=== PATIENT | female | born 1985 | race Caucasian/White ===

== ENCOUNTER 2022-12-31 10:15 | Outpatient (OUT) | payer OTHER, SELFPAY ==
--- NOTE | 2022-12-31 10:25 | MR_ITS ---
The [address] [address] Patient Name: MICHAEL RAMON MRN: [facility]:[id number] date: 1985 Sex: F Assigned Patient Location: MRI Current Patient Location: MRI Accession/Order Number: [id number] Exam Date: 12/31/2022 11:10 Report Date: 12/31/2022 13:59 At the request of: NON-STAFF PHYSICIAN Procedure: MR lumbar spine wo con MR lumbar spine wo con, 12/31/2022 11:10 AM EDT INDICATION: Lumbar Neuritis M54.16 COMPARISON: Prior MRI dated 04/12/2022 TECHNIQUE: Multiplanar, multisequential MRI images of lumbar spine were obtained without contrast. FINDINGS: This study is limited due to signal loss because of the patient's body habitus. For dictation purposes, the lowest complete disc space in the lumbar spine considered as L5-S1. There is normal physiologic lumbar lordosis. The vertebral height is preserved. The conus medullaris is at the level of L1. No signal abnormality within the visualized spinal cord is noted. No neural foraminal narrowing or canal stenoses at the level of T12-L1 and L1-L2 is noted. There is bilateral short pedicles and epidural lipomatosis predisposing the patient to canal stenosis. At the level of L2-L3, there are disc bulge with no neuroforaminal narrowing and mild canal stenosis. At the level of L3-4, there are disc bulge with mild bilateral neuroforaminal narrowing and mild to moderate canal stenosis. At the level of L4-5, there are disc bulge with mild bilateral neuroforaminal narrowing and mild to moderate canal stenosis. At the level of L5-S1, there are disc bulge with mild to moderate bilateral neuroforaminal narrowing and no canal stenosis. The paraspinal muscles are unremarkable. MR/MR lumbar spine wo con IMPRESSION: Bilateral short pedicles and epidural lipomatosis predisposing patient to canal stenosis. Mild degenerative changes of lumbar spine in particular at L3-L5 with mild to moderate canal stenosis. Electronically authenticated by: RANJEET BERG Date: 12/31/2022 13:59
== END 2022-12-31 10:16 | disposition home or self-care (01) ==
LOC: MRI 10:18
DX: M54.16 Radiculopathy, lumbar region (principal)
CPT/HCPCS: 72148

== ENCOUNTER 2023-01-22 12:46 | Outpatient (OUT) | payer OTHER, SELFPAY ==
--- NOTE | 2023-01-22 12:47 | VEIN_ITS ---
Patient Name: MICHAEL RAMON MR#: [id number] : 1985 Exam Date: 01/22/2023 Ordering Doctor: DR PRASAD MENENDEZ M.D. RADIOLOGY REPORT PROCEDURE: VC EXT VENOUS REFLUX CONNOR LMTD COMPARISON: None. INDICATIONS: I83.813 Painful varicose veins of bilateral lower extremitie TECHNIQUE: Duplex imaging of the lower extremity to assess the deep and superficial venous system for the presence of deep or superficial venous incompetence and to document the location and severity of disease. The study includes evaluation of the great saphenous vein (GSV), anterior accessory saphenous vein (AASV) and small saphenous vein (SSV). Patient scanned in reverse Trendelenburg and standing. FINDINGS: RIGHT LOWER EXTREMITY: Saphenofemoral Junction Reflux: Yes 14.6mm 2.2 sec GSV: Diam (mm) Reflux/ Time (sec) Proximal Thigh 8.4 Yes 1.2 Mid Thigh 7.2 Yes 2.0 Distal Thigh 7.5 Yes 0.8 Prox Calf 3.7 Yes 0.5 Mid Calf 4.2 Yes 1.1 Saphenopopliteal Junction Reflux: 5.8mm Yes 1.7 SSV: Proximal Calf 5.5 Yes 0.9 Mid Calf 4.2 Yes 0.4 AASV: Proximal Thigh 6.1 No Mid Thigh 4.3 No Distal Thigh Thrombi: No acute or chronic thrombus visualized Compressibility: Normal Flow: Normal Preforator: Dist/med calf 2.9mm with 0s reflux. Tech Note: Incompetent GSV and SSV. Patent varicose vein prox/med calf 5.8mm with 1.9s reflux. Patent varicose vein mid/med thigh 4.7mm with 2.9s reflux. LEFT LOWER EXTREMITY: Saphenofemoral Junction Reflux: Yes 13.7 mm 2.7 sec GSV: Diam (mm) Reflux/Time (sec) Proximal Thigh 10.4 Yes 1.1 Mid Thigh 7.1 Yes 1.2 Distal Thigh 6.9 Yes 0.6 Prox Calf 5.3 No Mid Calf 4.0 No Saphenopopliteal Junction Relux: 5.5 mm Yes 1.2 SSV: Proximal Calf 5.5 Yes 1.0 Mid Calf 3.7 No AASV: Proximal Thigh 4.6 No Mid Thigh 3.4 No Distal Thigh Thrombi: No acute or chronic thrombus Compressibility: Normal Flow: Normal Finishing Operator: Mid/med calf 3.0mm with 0s reflux. Tech Note: Incompetent GSV and SSV. Patent varicose vein mid/med calf 3.0mm with 0.6s reflux. Patent varicose vein 3.4mm with 1.2s reflux. Patent varicose vein mid/med thigh. 5.7mm with 0.7s reflux. CONCLUSION: 1. Moderate bilateral great saphenous vein venous insufficiency with saphenofemoral junction reflux and dilatation 2. Mild bilateral small saphenous vein venous insufficiency with saphenous popliteal junction reflux and dilatation 3. Bilateral incompetent varicose veins Dictated by: Prasad Menendez MD on 01/23/2023 at 07:14 Approved by: Prasad Menendez MD on 01/23/2023 at 07:44
== END 2023-01-22 12:47 | disposition home or self-care (01) ==
PROVIDERS: PCP Podiatrist Foot & Ankle Surgery; Visit Provider Radiology Diagnostic Radiology
DX: R60.0 Localized edema (principal); I89.0 Lymphedema, not elsewhere classified; I83.813 Varicose veins of bilateral lower extremities with pain
CPT/HCPCS: 93970

== ENCOUNTER 2023-01-28 14:19 | Outpatient (OUT) | payer OTHER, SELFPAY ==
--- NOTE | 2023-01-28 14:22 | VEIN_ITS ---
Patient Name: MICHAEL RAMON MR#: [id number] : 1985 Exam Date: 01/28/2023 Ordering Doctor: DR WEN MCCABE M.D. RADIOLOGY REPORT PROCEDURE: VC [facility]ILITY EST [facility] - OFFICE VISIT INITIAL COMPARISON: None. PROGRESS NOTES: [age] year old female who presents with a 5 year history of lower extremity pain, swelling, muscle cramping. The patient's left leg symptoms are worse than the right. There has been a progression of symptoms over time. This increases with prolonged dependency. The patient describes an improvement with rest, elevation, support stockings, and [id number] medications. The patient denies any signs and symptoms to suggest arterial ischemia. The patient describes a family history of heart disease. The patient has drinking and smoking history of : None. Patient has a past medical history significant for right foot surgeries, back pain, diabetes, obesity. The patient denies a history of deep venous thrombus or pulmonary embolus. See separate history and physical for medication list. No prior treatment for varicose or spider veins. Current use of compression stockings. After review of nurse notes, history and physical exam I discussed at length the pathophysiology of venous hypertension and possible treatments, therapies and strategies available. We discussed at length the importance of elevating the lower extremities above the level of the heart, increased physical activity and compression stocking use. Ultrasound venous reflux study performed the on January 22, 2023 was discussed at length with the patient. The report demonstrates abnormally dilated and incompetent great saphenous veins bilaterally, small saphenous veins bilaterally, and incompetent branch saphenous varicosities. PHYSICAL EXAM: The right leg demonstrates a few varicosities, a few spider veins, no ulceration, moderate edema, no skin discoloration. The left leg demonstrates a few varicosities, a few spider veins, no ulceration, moderate edema, no skin discoloration. Both thighs, legs and feet were symmetrically warm to the touch. Good posterior tibial and dorsalis pedis pulses were present bilaterally. VEIN/ Facility EST Comprehensive IMPRESSION: 1. Bilateral lower extremity venous insufficiency 2. Bilateral lower extremity varicose veins 3. Moderate bilateral lower extremity subcutaneous edema 4. No flow significant arterial disease 5. CEAP: C3, AP, , MT PLAN: 1. Continued use of compression stockings 2. Elevated legs and increased physical activity symptomatic relief 3. Endovenous ablation of right great saphenous and left great saphenous veins. 4. Re-evaluation of small saphenous veins bilaterally, but these likely will need endovenous ablation. 5. Microfoam chemical ablation of remaining incompetent branch saphenous varicosities. Nurse notes, history and physical were reviewed and confirmed, see attached forms. The nurse was present throughout the physical exam and consultation Dictated by: Bassem Pelaez M.D. on 01/28/2023 at 14:51 Approved by: Bassem Pelaez M.D. on 01/28/2023 at 15:05
== END 2023-01-28 14:20 | disposition home or self-care (01) ==
LOC: VC 14:21
PROVIDERS: PCP Podiatrist Foot & Ankle Surgery; Visit Provider Radiology Diagnostic Radiology
DX: R60.0 Localized edema (principal); I89.0 Lymphedema, not elsewhere classified
CPT/HCPCS: G0463

== ENCOUNTER 2023-02-25 10:09 | Outpatient (OUT) | payer OTHER, SELFPAY ==
--- NOTE | 2023-02-25 | XR_ITS ---
The [address] [address] Patient Name: MICHAEL RAMON MRN: [id number] date: 1985 Sex: F Assigned Patient Location: [facility] Current Patient Location: [facility] Accession/Order Number: [id number] Exam Date: 02/25/2023 10:29 Report Date: 02/25/2023 12:30 At the request of: LOR CHEEK Procedure: XR foot RT min 3V EXAM: XR foot RT min 3V HISTORY: Right FOOT PAIN COMPARISON: Foot radiographs from 11/05/2021 TECHNIQUE: AP, lateral, oblique radiographs of the foot labeled right FINDINGS: Sequela of previous first metatarsal phalangeal joint effusion. Continued remodeling with decreased lucency at site of previous fixation screws. No acute fracture. No dislocation. Large plantar calcaneal enthesophyte. Small Achilles calcaneal enthesophyte. XR/XR foot RT min 3V IMPRESSION: 1. No acute osseous abnormality. 2. Postsurgical changes of previous first metatarsal phalangeal joint fusion. 3. Calcaneal enthesophytes. Electronically authenticated by: JASBIR DOLAN Date: 02/25/2023 12:30
== END 2023-02-25 10:10 | disposition home or self-care (01) ==
LOC: RAD 10:09
PROVIDERS: PCP Radiology Diagnostic Radiology; Visit Provider Podiatrist Foot & Ankle Surgery
DX: S90.31XD Contusion of right foot, subsequent encounter (principal)
CPT/HCPCS: 73630

== ENCOUNTER 2023-04-08 10:13 | Outpatient (OUT) | payer OTHER, SELFPAY ==
[2023-04-08] MEDS: 0.9 % SODIUM CHLORIDE 500 ML, LIDOCAINE HCL 20 ML, SODIUM BICARBONATE 10 MEQ INJ (10:09)
[2023-04-08] MEDS: LIDOCAINE HCL 1% 100 MG/10 ML MDV INJ (10:10)
--- NOTE | 2023-04-08 10:15 | VEIN_ITS ---
[address] [address] Patient Name: MICHAEL RAMON MRN: [id number] date: 1985 Sex: F Assigned Patient Location: Current Patient Location: Accession/Order Number: [id number] Exam Date: 04/08/2023 10:15 Report Date: 04/08/2023 11:21 At the request of: WEN MCCABE Procedure: VC Endovenous Ablation 1VeinRT EXAMINATION: VC Endovenous Ablation 1Vein right great saphenous vein HISTORY: I83.813 Bilateral painful varicose veins COMPARISON: No relevant comparison available. TECHNIQUE: The risks and benefits of the procedure had been previously discussed, and were rediscussed at length. Informed written consent was obtained. Radha Manley and Torsten White assisted. Time out procedure was performed. The right lower extremity was prepared and draped in the usual sterile fashion to allow knee flexion in the sterile field. Duplex ultrasound probe was draped in a sterile cover, sterile transmission gel was used. Venous mapping was performed with the areas of dilation and large tributaries marked. The total length was 27 cm from the entry at the knee to 3 cm below the saphenofemoral junction, the vein below this area splint and was not amenable to endovenous laser ablation. The diameter of the greater saphenous vein ranged from 6-9 mm. A 30 gauge needle and 1% buffered lidocaine was used to anesthetize the entry site. A 4 mm incision was made with a scalpel and the saphenous vein was entered percutaneously under direct ultrasound guidance with a micropuncture set, a single stick was successful in gaining access. A micro-guide wire was inserted and the needle removed. A micro-set including a dilator was inserted over the microwire and the needle and dilator were removed. A 0.018 guide wire was inserted through the micro-set and threaded through the saphenous vein to the saphenofemoral junction. The dilator was removed and an introducer sheath was inserted over the wire until the end of the sheath entered the saphenofemoral junction. The dilator and wire were removed and the 600 micron fiber was introduced and placed and positioned so that it extended beyond the sheath and was 3 cm peripheral to the saphenofemoral femoral junction. Final position of the fiber was determined by ultrasound guidance and duplex imaging. Tumescent anesthetic was delivered by ultrasound guidance. 225 cc of fluid was delivered along the entire course of the saphenous vein. The solution consisted of 1000 cc of normal saline with 40 mL of 1% lidocaine and 20 mL of sodium bicarbonate. A final positioning check was made. The energy source was turned on by means of the foot pedal and the fiber and sheath were withdrawn. The total number of Joules delivered was 1244. The laser was active for 155seconds under continuous pulse, average laser use of 8 J. Laser start time 1106 AM 04/08/2023. Laser stop time 11:09 AM 04/08/2023 . A duplex ultrasound revealed compressibility and flow at the saphenofemoral junction immediately after the procedure. Hemostasis at the access site was achieved. The skin incision of the saphenous vein was closed with a 4 x 4. A compression stocking was applied. Postop instructions were given. A follow up appointment was recommended and scheduled. The patient tolerated the procedure well and was discharged in good condition . VEIN/VC Endovenous Ablation 1VeinRT IMPRESSION: Technically successful endovenous laser ablation right great saphenous vein Electronically authenticated by: WEN MCCABE Date: 04/08/2023 11:21
--- OUTSIDE RECORDS SUMMARY | 2023-04-08 10:17 | XMS_ITS | CCD ---
Author Name Unknown Address [address] [place] [address] Organization [facility] Care Team Providers Care Refuse And Recycling Worker Name Role Phone Wen Pollack Unavailable MD Wen Pollack Attending Provider DO Thu Baldwin Primary Care Provider LOR CHEEK Attending Unavailable SHARON REYES Consulting Unavailable JAISON, DR GARCIA Primary Care Unavailable LOR CHEEK Admitting Unavailable LOR CHEEK Admitting Unavailable HERIBERTO, DR MALATHI Larson Consulting Unavailable REQUEST, NONE LISTED Primary Care Unavaila LOR Jimenez Attending Unavailable LOR CHEEK Consulting Unavailable SHARON REYES Consulting Unavailable LOR CHEEK Admitting Unavailable LOR CHEEK Attending Unavailable REQUEST, NONE LISTED Primary Care Unavaila LOR Jimenez Consulting Unavailable MARCO A, DR YAN Patino Attending Unavailable STRICKLAND, DR YAN Patino Consulting Unavailable MARCO A, DR YAN Patino Admitting Unavailable REQUEST, NONE LISTED Primary Care Unavaila elisa MCCABE, DR WEN Bassett Consulting Unavailable LOR CHEEK Consulting Unavailable ADRYAN CARLSON Consulting Unavailable BRAYDON KEILY Nevarez Consulting Unavailable KEILY PAYNE Consulting Unavailable LOR CHEEK Attending Unavailable LOR CHEEK Consulting Unavailable JAISON, DR GARCIA Primary Care Unavailable LOR CHEEK Admitting Unavailable ADRYAN CARLSON Consulting Unavailable HERIBERTO, DR MALATHI Larson Consulting Unavailable REQUEST, NONE LISTED Primary Care Unavaila SARA Cramer Attending Unavailable SARA MESA Admitting Unavailable SARA MESA Consulting Unavailable LOR CHEEK Attending Unavailable MISC, DR GARCIA Primary Care Unavailable ELIOT, DR WEN Bassett Consulting Unavailable LOR CHEEK Admitting Unavailable LRO CHEEK Consulting Unavailable Asaad, Imad Unavailable Mc, Shelley Unavailable Nicolasa, Thu G Primary Care Provider MD Job Martinez Attending Provider MD Wen Pollack Attending Provider DO Jesusita Shelley A Primary Care Provider Piedad MARTINEZ, Sam Funes Attending Zeldavawesley labmaria d [place] MANAGER INTEL-LENS SHAPER GRINDER, Bia Kitchen Attending U sonia Herbert MD, Sam Funes Attending Zeldavawesley labmaria d [place] MANAGER INTEL-LENS SHAPER GRINDER, Bia Kitchen Attending U navailmarcy Asaad, Imad Admitting Unavailable Asaad, Imad Attending Unavailable Nicolasa, Thu G Primary Care Unavailable Wen Pollack Admitting Unavailable Wen Pollack Attending Unavailable Mc, Shelley A Primary Care Unavailable Asaad, Imad Attending Unavailable Mc, Shelley A Primary Care Unavailable Asaad, Imad Admitting Unavailable RIO STERLING Attending Unavailable YSABEL MULLER Attending Unavailable YSABEL MULLER Referring Unavailable RIO STERLING Attending Unavailable NICOLASA, THU G Attending Unavailable Nicolasa, Thu Primary Care Unavailable Longoria, Ulices Attending Unavailable Longoria, Ulices Admitting Unavailable Nicolasa, Thu Primary Care Unavailable SAM HERBERT Attending Unavailable KINDEtelvina SAM Tomas Admitting Unavailable Nicolasa, Thu Primary Care Unavailable SAM HERBERT Attending Unavailable KINDEtelvina SAM Tomas Admitting Unavailable Mati Bell Attending Unavailable Nicolasa, Thu Primary Care Unavailable Bell, Mati L Admitting Unavailable Bell Mati L Attending Unavailable Nicolasa, Thu Primary Care Unavailable Bell, Mati L Admitting Unavailable Nicolasa, Thu Primary Care Unavailable Bia Goldman Admitting Unavailable Bia Goldman Attending Unavailable Efrain Bellime L Attending Unavailable Nicolasa, Thu Primary Care Unavailable Bell, Mati L Admitting Unavailable Nciolasa, Thu Primary Care Unavailable Sara Mesa Attending Unavailable Sara Mesa Admitting Unavailable Mc, Shelley Primary Care Unavailable SAM HERBERT Attending Unavailable KINDL SAM F Admitting Unavailable Bell Mati L Attending Unavailable Nicolasa, Thu Primary Care Unavailable Bell, Mati L Admitting Unavailable Mati Bell Referring Unavailable Nicolasa, Thu Primary Care Unavailable Lor Cheek Attending Unavailable Lor Cheek Admitting Unavailable Ulices Longoria Admitting Unavailable Nicolasa, Thu Primary Care Unavailable Ulices Longoria Attending Unavailable Nicolasa, Thu Primary Care Unavailable Igor DPM, Lorenzo Connors Attending Kodi DUMASM, Lorenzo Connors Admitting Unavawesley beck Nicolasa, Thu Primary Care Unavailable Keily Duvall Attending Unavailable Keily Duvall Admitting Unavailable Mati Bell Attending Unavailable Nicolasa, Thu Primary Care Unavailable Mati Bell Admitting Unavailable Nicolasa, Thu Primary Care Unavailable Bia Goldman Admitting Unavailable Bia Goldmna Attending Unavailable Nicolasa, Thu Primary Care Unavailable Bia Goldman Admitting Unavailable Bia Goldman Attending Unavailable Mati Bell Attending Unavailable Nicolasa, Thu Primary Care Unavailable Mati Bell Admitting Unavailable Nicolasa, Thu Primary Care Unavailable Mati Bell Attending Unavailable Mati Bell Admitting Unavailable Nicolasa, Thu Primary Care Unavailable Bia Goldman Admitting Unavailable Bia Goldman Attending Unavailable Medications Current Medications Medication Drug Class(es) Dates Sig (Normalized) Sig (Original) baclofen 10 mg oral tablet (8 sources) gamma-Aminobutyri c Acid-ergic Agonist Start: 03-11-2023 take 10 mg by mouth twice daily Baclofen Active 10 MG PO Twice daily March 11, 2023 12:00am take 1 tablet by merry th every twenty-four hours Baclofen 10 MG 1 tablet Orally once a da y Active Baclofen 10 MG/2 0ML as directed Intrathecal Active 24 hr buPROPion hydrochloride 300 mg extended release oral tablet (8 sources) Aminoketone Start: 03-11-2023 take 300 mg by mouth once daily in the morning Bupropion Hcl Active 300 MG PO Every morning March 11, 2023 12:00am take 1 tablet by merry th every twenty-four hours buPROPion HCl ER (XL) 150 MG 1 tablet in the morning Orally Once a day Active Clotrimazole (3 sources) Azole Antifungal Clotrimazole 1 % 1 application Externally Twice a day Active Clotrimazole 1 % 1 application Externally Twice a day Active diclofenac sodium 50 mg delayed release oral tablet (8 sources) Nonsteroidal Anti-inflammatory Drug Start: 03-11-2023 take 50 mg by mouth once daily Diclofenac Sodium Active 50 MG PO Daily March 11, 2023 12:00am take 1 tablet by merry th every twelve hours Diclofenac Sodium 50 MG 1 tablet as need ed Orally Twice a day Active escitalopram 10 mg oral tablet (3 sources) Serotonin Reuptake Inhibitor take 1 tablet by mouth every twenty-four hours Escitalopram Oxalate 10 MG 1 tablet Orally Once a day Active Gas Relief (4 sources) Gas Relief Activ e Laxative 25 MG (4 sources) take 1 tablet by mouth once daily at bedtime as needed Laxative 25 MG 1 tablet at bedtime as needed Orally Once a day Active Loratadine (10 sources) Claritin PRN Act caleb Claritin Active magnesium citrate 100 mg oral tablet (4 sources) Magnesium Citrat e 100 MG as directed Orally Active melatonin 1 mg oral tablet (11 sources) Start: 03-11-2023 take 1 mg by mouth at bedtime Melatonin Active 1 MG PO Bedtime March 11, 2023 12:00am Melatonin Active metFORMIN hydrochloride 500 mg oral tablet (8 sources) Biguanide Start: 03-11-2023 take 500 mg by mouth once daily Metformin Active 500 MG PO Daily March 11, 2023 12:00am mounjaro 5 mg/0.5ml solution pen-injector (3 sources) inject 5 mg by subcutaneous injection every week Mounjaro 5 MG/0.5ML 5 mg Subcutaneous once a week Active mounjaro 7.5 mg/0.5ml solution pen-injector (1 source) inject 7.5 mg by subcutaneous injection every week Mounjaro 7.5 MG/0.5ML 7.5 mg Subcutaneous weekly for 30 days Active omeprazole 20 mg delayed release oral capsule (1 source) Proton Pump Inhibitor Start: 03-18-2023 take 1 capsule by mouth once daily Omeprazole 20 MG 1 capsule 30 minutes before morning meal Orally Once a day for 30 days Mar, Active phentermine hydrochloride 37.5 mg oral capsule (3 sources) Sympathomimetic Amine Anorectic take 1 capsule by mouth every twenty-four hours Phentermine HCl 37.5 MG 1 capsule Orally Once a day Active pregabalin 50 mg oral capsule (8 sources) Start: 03-11-2023 take 1 capsule by mouth once daily Pregabalin (Lyrica) 50 mg Capsule Active 50 MG PO Daily March 11, 2023 12:00am Super Enzymes - (4 sources) Super Enzymes - as directed Orally Active Tirzepatide (1 source) Start: 03-11-2023 Tirzepatide (Mounjaro) 7.5 mg/0.5 mL Pen Injector Active 7.5 MG SUBCUT every week March 11, 2023 12:00am Problems Active Problems Problem Classification Problem Date Documented Date Episodic/Chronic Acquired foot deformities (1 source) Hallux rigidus, right foot; Translations: [HALLUX RIGIDUS RIGHT FOOT] Onset: 06-13-2021 Chronic Acute and chronic tonsillitis (11 sources) Enlarged tonsil; Translations: [Hypertrophy of tonsils] Onset: 12-06-2020 Resolved: 12-06-2020 Chronic Anxiety disorders (12 sources) Mixed anxiety and depressive disorder; Translations: [Other specified anxiety disorders] Onset: 12-06-2020 Resolved: 12-06-2020 Chronic Diabetes mellitus without complication (5 sources) Type 2 diabetes mellitus; Translations: [Type 2 diabetes mellitus without complications] Chronic Esophageal disorders (2 sources) Gastroesophageal reflux disease; Translations: [Gastro-esophageal reflux disease without esophagitis] Chronic Headache; including migraine (1 source) Migraine, unspecified, not intractable, without status migrainosus; Translations: [MIGRAINE UNS NOT INTRACT W/O SM] Onset: 11-14-2021 Chronic Hepatitis (9 sources) Nonalcoholic steatohepatitis; Translations: [Nonalcoholic steatohepatitis (HAMMOND)] Chronic Menstrual disorders (2 sources) Irregular periods; Translations: [Irregular menstruation, unspecified] Chronic Mood disorders (6 sources) Major depressive disorder, single episode, unspecified; Translations: [Major depression in full remission] Onset: 11-14-2021 Chronic Other liver diseases (7 sources) Steatosis of liver; Translations: [Fatty (change of) liver, not elsewhere classified] Chronic Other liver diseases (2 sources) Fatty (change of) liver, not elsewhere classified Chronic Other liver diseases (1 source) Abnormal levels of other serum enzymes Episodic Other nutritional; endocrine; and metabolic disorders (10 sources) Morbid obesity; Translations: [Body mass index (BMI) 60.0-69.9, adult] Chronic Other nutritional; endocrine; and metabolic disorders (4 sources) Body mass index (BMI) 60.0-69.9, adult; Translations: [BMI 60.0-69.9, adult Z68.44] Onset: 12-06-2020 Resolved: 02-07-2021 Chronic Other nutritional; endocrine; and metabolic disorders (1 source) Morbid (severe) obesity due to excess calories; Translations: [MORBID SEVERE OBES D/T EXCESS SOFÍA] Onset: 11-14-2021 Chronic Other nutritional; endocrine; and metabolic disorders (8 sources) Body mass index 40+ - severely obese; Translations: [Body mass index (BMI) 70 or greater, adult] Chronic Other nutritional; endocrine; and metabolic disorders (1 source) Body mass index (BMI) 70 or greater, adult Chronic Residual codes; unclassified (10 sources) Sleep apnea; Translations: [Sleep apnea, unspecified] Chronic Residual codes; unclassified (19 sources) Obstructive sleep apnea syndrome; Translations: [Obstructive sleep apnea (adult) (pediatric)] Chronic Residual codes; unclassified (6 sources) Obstructive sleep apnea (adult) (pediatric); Translations: [Obstructive sleep apnea (adult) (pediatric) G47.33] Onset: 12-06-2020 Resolved: 02-07-2021 Chronic Residual codes; unclassified (8 sources) Insomnia; Translations: [Other insomnia] Chronic Residual codes; unclassified (2 sources) Other insomnia Chronic Residual codes; unclassified (1 source) Obstructive sleep apnea (adult)(pediatric); Translations: [Obstructive sleep apnea (adult) (pediatric)] Onset: 02-19-2023 Chronic Residual codes; unclassified (1 source) Continuous positive airway pressure ventilation treatment; Translations: [Dependence on other enabling machines and devices] Chronic Spondylosis; intervertebral disc disorders; other back problems (4 sources) Radiculopathy, lumbar region; Translations: [RADICULOPATHY LUMBAR REGION] Onset: 04-12-2022 Episodic Unclassified (1 source) POST COVID-19 CONDITION UNSPECIFIED; Translations: [POST COVID-19 CONDITION UNSPECIFIED] Onset: 10-30-2021 Unclassified (1 source) Nonalcoholic steatohepatitis (HAMMOND); Translations: [Nonalcoholic steatohepatitis (HAMMOND)] Onset: 12-24-2022 Viral infection (1 source) COVID-19; Translations: [COVID-19] Onset: 10-15-2021 Past or Other Problems Problem Classification Problem Date Documented Da te Episodic/Chronic Complication of device; implant or graft (1 source) Pain due to internal orthopedic prosthetic devices, implants and grafts, initial encounter; Translations: [PAIN INTRL ORTHO PROS DEV GFT INIT] Onset: 11-14-2021 Episodic Deficiency and other anemia (1 source) Anemia, unspecified; Translations: [ANEMIA UNSPECIFIED] Onset: 10-02-2021 Episodic Other aftercare (1 source) medical terminologist (current) use of aspirin; Translations: [CAREER TECHNICAL EDUCATION INSTRUCTOR CURRENT USE OF ASPIRIN] Onset: 11-14-2021 Episodic Other aftercare (1 source) Other terminal press operator (current) drug therapy; Translations: [OTH PRISON CURRENT DRUG THERAPY] Onset: 11-14-2021 Episodic Other aftercare (1 source) senior care (current) use of oral hypoglycemic drugs; Translations: [CAREER TECHNICAL EDUCATION INSTRUCTOR USE ORAL HYPOGLYCEMIC DX] Onset: 11-14-2021 Episodic Other circulatory disease (1 source) Elevated blood-pressure reading, without diagnosis of hypertension; Translations: [ELEVATED BP READING W/O DX HTN] Onset: 10-30-2021 Episodic Other connective tissue disease (1 source) Arthrodesis status; Translations: [ARTHRODESIS STATUS] Onset: 11-14-2021 Episodic Other connective tissue disease (1 source) Pain in right foot; Translations: [PAIN IN RIGHT FOOT] Onset: 10-15-2021 Episodic Other lower respiratory disease (1 source) Shortness of breath; Translations: [SHORTNESS OF BREATH] Onset: 10-30-2021 Episodic Other non-traumatic joint disorders (1 source) Osteophyte, right foot; Translations: [OSTEOPHYTE RIGHT FOOT] Onset: 10-30-2021 Episodic Residual codes; unclassified (1 source) Acquired absence of other specified parts of digestive tract; Translations: [ACQ ABSENCE OTH PART DIGESTV TRACT] Onset: 11-14-2021 Episodic Residual codes; unclassified (1 source) Procedure and treatment not carried out for other reasons; Translations: [PROC AND TX NOT CARRIED OUT OTH REASONS] Onset: 10-15-2021 Episodic Superficial injury; contusion (9 sources) Contusion of right foot, subsequent encounter; Translations: [Contusion of right foot, initial encounter] Onset: 10-08-2021 Episodic Results Test Name Value Interpretation Reference Range Facility Coding Summaryon 04-07-2023 Coding Summary HTMLBase 64 PqoyzsbmORs7tPs+PGhlYWQ+PE1 IGOCcH53buWJhhS8yU1ICPHhZYi xgFTMGTXpIOrLvheMsDY1bzKBvR XJu IC8+WO3gWGDtWxdboVYle8X5cWZ 0Y43sjk0fFArfqAS9AULcSeQfzs ahx3wbfIl8RAgtImutJdEj YRJrbC06QTJ4jW58Ny15qATbmUP wq7ixeTc0VzYsJXOlTSJ5xObkNC wim6RfZVFmH24nrOTag9K3 EOKgiMdfyGRmNgExnEJ1gE7uFXl bsgexm5mtogfvDot9fn08xDSca6 H9pVP4R7BccsM6HFLnkUUh BuaumWFIjP1ubpqgi8fpisnxNhN rDJMyFRt5YXh2FOIykCtpUrPfWZ 97CVV4KQWyvcRbZ6QbQESo qDeuIqB9g9D7Dt1CD3WGRrroR1F NTUFSWTwvdGQ+SA75qq03N2EuTv hqYda4QQRgWCM3yUZ6pC5y EGHoKCuuj4O4wKJ8J5SecxKjrj8 vv3chSDEoVLciL46uyNOmf3M3IG WpiZU0KQZdfKosSxLnxI23 Oyc+ZZZchMjln0HmQhikc2aug3a hdDz3MiycNWBbhqKvjNigEBX3g2 YtLw1yDGVtjOG0sOH8jL7d KfNeKvQ0WIzvA124NvJqhGZsClq oX99lW7FikER+FYWeDaa3KJTsuB joAR4lC1UlSJDmtfqirLAk gRslVW8dOUFkihetNDGzsL0vMNN vB0s1YyTbBcW9MSzuJ7JmWNLokf mrSc60rL3eHtFwVnE3YRoh M2GqqxS9ZNHxfVZxHPqiHSV6D31 ps1X0DZQiKCPaEUK0uGP8wG5bjL lnbjogbGVmdDsgdmVydGlj ZUyoBWabB433CYHibQzjVrKcHDp uZyBEYXRlOiAgMDEvMjkvMjAyND wvdGQ+HEQcADE8hVczVYUr xXIiCPruMz0kvTxtzPgsYO6jFQL fbtccGQGqwJ9qXXKqcIPwgLthWO 1bUZUqlcxau806QpTwLWY1 XONmiALuB4QooK3jXxPjQXCwIRI wJ8FqvIIvGYogE698MDdaOdD0OH UzsuOxU3BxTUFhoWkzHuZ1 y2D0Jc1Bg4JprdwlZ9IquZCqWkB lDgomLAu0X8AxXxbmhUA+PC90YW OoYI03KEu5XNB2tNirXOvl LRDmP9GepE4nHqMzXSImUXRuAbf +PHRhYmxlIHdpZHRoPScxMDAlJy NekFsaWZ9lOk1rPUFaKAZa tKcplTIdSzRri0arEPCwNLxhIM0 eoNatA1RgdHJ2EWXav6l6Dn60G4 3dD0YlbPG+BYZisOP3eKQ0 nD1vScBuKpO1UXazX510TaOyeRS tLdmwo0bhr5kdkXj3FtY3LDMehd ZgjQypPXV3a3McLt05Q47c IHdpZHRoPSIxNSUiIHZhbGlnbj0 gpU2yDh9+SOWuwEX0cTH4yN3wSd XlMkI4HKdwH574JnKyfBMk Urmtq2mjy2feuLn0FcMnZWJjlmE gyFlzINF9k9IvWr85E1BgnJswt4 DdOgu6th65vJWhu4Q2rEH8 Y7VaDQIxrxuwqQHyzMwdYH0oRVM ixlctQSOmfJ0nYWAaG4h0BjVxQc G9PZptE6GwbxK8KEOrqLNf AIYsaFOEiD7zhrfgi3ipuufxJuY tDWAsZSb7KYb1MNUnkErjLqBrIS Y8ZxM2GAK6oYUjmQ7yaKxz fnohiS0uVnt+VCA8gTJhiIVKJV3 lOjwvdGQ+GRQxDAZ0hLlxPCdzUM JztD1lPBRkZ1e8RwQsRoE5 ITwwS3FibsT2FXMtpQVnKKCixRU XvT1edvaib0ofddbaByKzDWSmDM x5PCa1LLZepAutUpCcJXT8 PjO0LNN2xIWecL8onXwnyylpfT2 wOyc+DtzqlHjeKGH0IQk4W8VeNi k3OBMdmYtqNS7bmXFdBPsd Sb7fkTxbzUsyTE6iEKYdeuwsi04 5HiSpw8dbXTYxdWThTWjcGBZ9G7 8ns6U8KBNgNNPtJIJ7uPP0 fE0ofQzrocugvNGbbVuaxvRpxQa jLHvsJVysC133XWPrlBdyVcOwKK n5G0NvAer8NMXzkQupDX7j nOZbCFvqWi3yvHtqzEssGM5uSKF sfewpk749JlGgo0ifTKClgZQnFL gzQGM4W96rm0J1ZMObNVAv EAI4oJO8tX1rtAptiojheDMmuWc yfdXjjOffWBviKRswU429IVRniE bbOlIbyHg0D2GgTgg6HILo dHewQB7lxYMaYHicYq6emVciaAq zEK9rFZAifbgir668CyMrb0hrWO CxlDSuDPlvWDZ3G52xf2K2 LGKsIPNdJMY9hJD3dN3sxEyjuaj gbGVmdDsgdmVydGljYWwtYWxpZ2 46IHRvcDsnPlBhdGllbnQg AJijGHs6X0VkIawcpCJ+CP79UCI xLY97xGRpoAOdj1eqaJc2TrTzIE UzECY4dLngYSqkw0XpLDWh H33zsOTpv1X5FCVxdEbczSUoHxT cmDV0lF4wPYrmptneb5tocrrxIj qkt3anry59lQ73X54lUGku KVElRCCbUPXkNTPcgBzvmx3hnC9 wIi8+CGKfdOV4kMS9gZ3tIVJyUb I5GGznY025XmRtrBQrBkhy h4hvp8qoqMm9IqG3RTYnzkGuvXi pKSL0t5WwCn21G57lIBymPKHsOX CdJYFxJZPckXrxds4neI7q Ii8+JXAyzNN8oNV0iX0dQbYsWuY 7TSafW303JkAcyPLiNrimU15qL9 JvdXA+FKZmTum9TCRwzLdq RH7aeCYfFRhbJy7nDGT6FmCfNlG zVLlfO9CbYHOuusphvbhtlPE2LJ XvHOHtsY71Oj8cdCxjVEGu nZJMlS6fmoggb7chrclqBmNfKLK mZMd6VUf3FKYqkTdeXxGgKSU1Km M6OLG7uIKlgI9qjYsqogiv oD4cK0TvVBAuqdzzUb80hP0qYfF lWsC6LUxpTel+TVVMTEVOUywgUk YNBKWVANOIHQxPWbD4J5Lx Byh6FRBorHxdRF4nkCLaZVavLz8 oyTglkZacCX6eVLKpcauiSROtmC 7eZXDaoVTqcGhzMA3cNMPu tguat394JgZnWMH6HDWcmROeX3Z ueU8qTpZtPKEjNKLgC7ZnvZNdVL omJ897IWoaAlN7RYXunwDm V3YbRCJduRcaXiE8b3C2Ls0lWQ0 vTw0hDVg4VB93VP39kJNqd5G9qB B3Y2TxVMEvosuaoktbqVT9 BCJwEYNzgL80eRKfUOttTt2em6J 0t231SCPmMDIdpP80Fl7jhDoiHL GmcFXToO7hhwzqu1vamdhh KhKbTMDjVAu0FFv2SIPduNuuFdE sLTK0ObC9LOH4mXIxmC3rhFkjwv rfxD9oHjy+MzggWWVhcnM8 H7NjSqx7PRThnWxuGZ6teHCzBYc xIn0zwWcjxUcbNK0rQIHyiqdyGZ PwtV1hDRRnoWRwgCsyLF7h RVNaxumln714CbYdYNZ9MNSksHT aB3IcpU1mBhRpINIyCPFwA9VweP PpSYseI792RLjtKeA8YFAv bpGgV4QlLLNheDneMdP9y0K2Jt2 DVV6XWLL3W2TsAjd3MKXaeCynZW 4abBOyOYahEd0bkMhivVlz ZU8oCULtevhnFSIgbX9mIDCgwWC wuXxgFI3mGCImmzwwa818QvKjLC G5AIWdnBSaX5AcrO0wOzHj ZUCrOOFpY2AwgOQgTOqvI103KXa kDkU7SDPkghNqS2SuBLMtlMngAq H7c1X0Ce6YGQueN2XtX6Mf eTwvdGQ+CN26yz59G7KhTfdjJrt 7IYYgVSG0mCA6bA3lQGWsRTpdk4 A0zJG6S8YvsdPfxg4sn6xb KHSeBAlaY95maICzs9Q1CHShqCY 7YZDxyPcyHvFodA46Oli+PGNvbG jon8IzZjyfv7tmu9qqfUe5 UqGvXXJbjfRvzGnwZUS8x9ErGb1 1K55iKTawKZRsWCKtFIBbKPRprX apmz8vnM5dPk9+PGNvbCB3 lNO4aO2wYuXpNdU6ZKdzX104YdJ qwLWuYbpjl7bjl0hrqBb0SnGjUB KotiOutMwoQBJ8e9NvZo05 A9IkuBqon1WuDww4qq22sZJwm3Q 3xCF9Z4NzXCQbfvfggDAxqFecMF 7bNQYopgslFDJdhP4gXTGk F5o3NsZgYsI5LLhmF0CtvqW1IPT ioZMwVUOgcSNKpH8wlhitt2fswg wkUxYtUHHoSRi1WTw1HDQl bKxaSeHbZGS9LhW4WKH4zLRitA3 ylAtppvccmW3jEdb+IIs8f6egcF NsWR9vvXI2GX87FO90mGYs m7D8uIX2D2CcJKHodzjaogafsIL 9FYQrAKRduJ41Yx7mvCbkVs9yIQ RjIVC5OSZunSDvO6MbcE2q JlVaQKJpLKNwJ4HnkUIcTMzjG45 8FWizHaG3FKYdjxJxL9GaPNDlzG gmAiY7k3G2Pp9KYF07YK12 BL62iDFlj4Y6eVN2I3GqCIGhfma xlljeeUG9COMaZEPeyS75Be5edB siVt1yXLBpRDB8KZLnwLKl T1AdtX9wPfTvQGEdRMKwO5DdeKJ bQDfnY483EYasQdE4FRQjpcMbH2 XaCPTviTdrNzR0r4F8Bk7P Sb41MR32ZT85eBKfi3X5rDV1E7Y fTEMygvqpnktxcCD2FORpBNPmaT 88Wk8wiYspSf9kNDRiVXU1 VUSfmAJbM5IheZ7aZxFeYHKgGWY mE3WbyEKoCAznY086IKgeEyB5UA HbozDjJ7IyPFMahFqsCrK6 e3X2Fa4NZOfnomk7W4EeBukccOA +TT35JRSzHH32bXKcoQZil2cnfV c1XcSoLAHfWWM1vPvwGWuh b3J (more content not included)... [facility] Consent Formson 04-07-2023 Consent Forms [id number] [facility] Inpatient Patient Summaryon 04-04-2023 [place] [address] Patient Discharge Instructions Name: MICHAEL RAMON : 1985 Patient Address: [address] [place] [address] Primary Care Provider: Name: Shelley Mc DO After you are discharged if you find you have any questions, please, call [phone] ext [phone] to speak to a nurse. Discharge Diagnosis: Prescription Information: If you have been given a prescription for narcotics, seek immediate medical attention if you have any difficulty breathing or any sudden status changes such as confusion and sleepiness. If you or anyone you know is experiencing suicidal thoughts, mental health, alcohol and/or drug addiction problems; contact the [facility] 30/09 Crisis Hotline -Text 4HZLD no 763666. If you received any narcotics, sedation, or any other medication that causes drowsiness for the next 24 hours, unless otherwise directed: ? Do not drive a car. ? Do not operate machinery such as power tools, lawn mowers, drills, sewing machines, or stoves ? Avoid alcoholic beverages and drugs for allergies, nerves, or sleep ? Do not make important personal or business decisions or sign any legal documents [facility] would like to thank you for allowing us to assist you with your healthcare needs. The following includes patient education materials and information regarding your injury/illness. MICHAEL RAMONA has been given the following list of follow-up instructions, prescriptions, and patient education materials: Follow-up Instructions Medications During the course of your visit, your medication list was updated with the most current information. The details of those changes are reflected below: Medications to Continue That Have Not Changed Other Medications baclofen (baclofen 10 mg oral tablet) 1 tab(s) Oral (given by mouth) At bedtime. Refills: 2. buPROPion (buPROPion 150 mg/24 hours (XL) oral tablet, extended release) 1 tab(s) Oral (given by mouth) every 24 hours. TAKE 1 TABLET BY MOUTH ONCE DAILY IN THE MORNING. DO NOT CRUSH, CHEW, OR SPLIT. cetirizine (ZyrTEC 10 mg oral tablet) 1 tab(s) Oral (given by mouth) every day. diclofenac (diclofenac sodium 50 mg oral delayed release tablet) 1 tab(s) Oral (given by mouth) 2 times a day (scheduled). Refills: 0. melatonin (melatonin 3 mg oral tablet) 1 tab(s) Oral (given by mouth) once a day (at bedtime) as needed for insomnia. metFORMIN (metFORMIN 500 mg oral tablet) 1 tab(s) Oral (given by mouth) every day. TAKE 1 TABLET BY MOUTH IN THE MORNING WITH MEALS. pregabalin (Lyrica 50 mg oral capsule) 1 cap(s) Oral (given by mouth) once a day (in the evening). Refills: 0. tirzepatide (Mounjaro 2.5 mg/0.5 mL subcutaneous solution) 2.5 Milligram Subcutaneous (under the skin) every week. It is important to always keep an active list of medications available so that you can share with other providers and manage your medications appropriately. As an additional courtesy, we are also providing you with your final active medications list that you can keep with you. baclofen (baclofen 10 mg oral tablet) 1 tab(s) Oral (given by mouth) At bedtime. Refills: 2. buPROPion (buPROPion 150 mg/24 hours (XL) oral tablet, extended release) 1 tab(s) Oral (given by mouth) every 24 hours. TAKE 1 TABLET BY MOUTH ONCE DAILY IN THE MORNING. DO NOT CRUSH, CHEW, OR SPLIT. cetirizine (ZyrTEC 10 mg oral tablet) 1 tab(s) Oral (given by mouth) every day. diclofenac (diclofenac sodium 50 mg oral delayed release tablet) 1 tab(s) Oral (given by mouth) 2 times a day (scheduled). Refills: 0. melatonin (melatonin 3 mg oral tablet) 1 tab(s) Oral (given by mouth) once a day (at bedtime) as needed for insomnia. metFORMIN (metFORMIN 500 mg oral tablet) 1 tab(s) Oral (given by mouth) every day. TAKE 1 TABLET BY MOUTH IN THE MORNING WITH MEALS. pregabalin (Lyrica 50 mg oral capsule) 1 cap(s) Oral (given by mouth) once a day (in the evening). Refills: 0., OARRS REVIEWED 03/25/2023 tirzepatide (Mounjaro 2.5 mg/0.5 mL subcutaneous solution) 2.5 Milligram Subcutaneous (under the skin) every week. Take only the medications listed above. Contact your doctor prior to taking any medications not on this list. Diet & Activity Patient Activity Level: Patient Diet: Patient Activity Restrictions: Comment: Patient education materials, if any, will display below Viruses or Bacteria What?s got you sick? Antibiotics only treat bacterial infections. Viral illnesses cannot be treated with antibiotics. When an antibiotic is not prescribed, ask your healthcare professional for tips on how to relieve symptoms and feel better. Usual Cause Illness Viruses Bacteria Antibiotic Needed Cold/Runny Nose NO Bronchitis/Chest Cold (in otherwise healthy children and adults) NO Whooping Cough Yes Flu NO Strep Throat Yes Sore Th (more content not included)... Normal [facility] MAGR Intraoperative Recordon 04-04-2023 MAGR Intraoperative Record MAGR Intra-Op Record Summary Primary Physician: SAM HERBERT MD Finalized Date/Time: 04/04/23 11:11:31 Pt. Name: MICHAEL RAMON SHAQ /Sex: 1985 FEMALE Med Rec #: [id number] Physician: SAM HERBERT MD Financial #: [id number] Pt. Type: D Room/Bed: / Admit/Disch: 04/04/23 09:45:39 - Institution: Case Times MAGR Entry 1 Patient In Room Time 04/04/23 11:04:00 Out Room Time 04/04/23 11:12:00 Anesthesia Start Time 04/04/23 11:05:00 Stop Time 04/04/23 11:11:00 Surgery Start Time 04/04/23 11:05:00 Stop Time 04/04/23 11:11:00 Last Modified By: Ami Baker RN 04/04/23 11:11:25 Case Attendance MAGR Entry 1 Entry 2 Entry 3 Case Attendee Ami Baker RN, Lauren L RN Murphy, Sherry L RT (R) ARRT Role Performed Capacitor Repairer Relief Capacitor Repairer Professor Of French Time In 04/04/23 11:04:00 04/04/23 11:04:00 04/04/23 11:04:00 Time Out 04/04/23 11:12:00 04/04/23 11:12:00 04/04/23 11:12:00 Procedure SI Joint SI Joint SI Joint Injection(Bilateral) Injection(Bilateral) Injection(Bilateral) Last Modified By: Ami Baker RN, Barbara RN Long, Barbara RN 04/04/23 11:11:26 04/04/23 11:11:26 04/04/23 11:11:26 Entry 4 Entry 5 Entry 6 Case Attendee Georgette Thorne Brittany E CSFA KINDL, THOMAS F MD AUDIO NARRATOR Role Performed Professor Of French Scrub Personnel Surgeon - Primary Time In 04/04/23 11:04:00 04/04/23 11:04:00 04/04/23 11:04:00 Time Out 04/04/23 11:12:00 04/04/23 11:12:00 04/04/23 11:12:00 Procedure SI Joint SI Joint SI Joint Injection(Bilateral) Injection(Bilateral) Injection(Bilateral) Last Modified By: Ami Baker RN, Barbara RN Long, Barbara RN 04/04/23 11:11:26 04/04/23 11:11:26 04/04/23 11:11:26 Entry 7 Case Attendee Nestor Hoyt AUDIO NARRATOR Role Performed Scrub Personnel Time In 04/04/23 11:04:00 Time Out 04/04/23 11:12:00 Procedure SI Joint Injection(Bilateral) Last Modified By: Ami Baker RN 04/04/23 11:11:26 Surgical Procedures MAGR Pre-Care Text: A.20 Verifies operative procedure, surgical site, and laterality Im.150 Develops individualized plan of care Entry 1 Procedure SI Joint Injection Primary Procedure Yes Primary Surgeon SAM HERBERT MD Modifiers Bilateral Surgeon Comment BILATERAL SACROILIAC Start 04/04/23 11:05:00 JOINT INJECTION Stop 04/04/23 11:11:00 Anesthesia Type Local Surgical Service Pain Management Wound Class Clean Technique Details Closure Technique N/A Entire procedure No was performed via laparoscope or robotic assistance Last Modified By: Ami Baker RN 04/04/23 11:11:28 Post-Care Text: O.730 The patient's care is consistent with the individualized perioperative plan of care General Case Data MAGR Pre-Care Text: A.350.1 Classifies surgical wound Entry 1 Case Information OR MAGR OR 02 Case Level None Wound Class Clean Specialty Pain Management ASA Class N/A Diagnosis Preop Diagnosis SACROILIITIS Postop Same As Preop Yes Postop Diagnosis SACROILIITIS Blunt or No Is the procedure No penetrating injury considered occured prior to Emergent/Urgent? the start of the procedure: Last Modified By: Ami Baker RN 04/04/23 11:10:10 Post-Care Text: O.760 Patient receives consistent and comparable care regardless of the setting Time Out MAGR Entry 1 Procedure(s) SI Joint Injection(Bilateral) Time Out Checklist Verifications Patient Verified Yes Allergies Verified Yes Procedure to be Yes Presence of Yes Performed Verified Necessary with Consent Procedural Equipment, Devices, and Implants Verified Site Verification, Yes Site Marking, Site Marking Alternative, and/or Site Marking Exception in Accordance with Facility Policy Anesthesia Review Antibiotic Received n/a All Anesthesia Case does not involve Within an Concerns Addressed an anesthesia Appropriate Time professional Interval Prior to Surgical Incision Surgeon Review Anticipated Blood Yes Loss Risk, Expected Case Duration, and Critical and Non-Routine Steps to be Performed Addressed Nurse Review Team Introductions Yes Equipment Concerns Yes Completed Addressed Fall Risk Concerns Yes Fire Risk Yes Addressed Assessment Completed and Interventions Performed Skin Assessment Yes Diagnostic and Yes Concerns Addressed Radiological Test Results Displayed are Appropriate and Labeled Skin Prep Allowed Yes Sterilization Yes to Dry Prior to Concerns Addressed Incision Venous Yes Laser Safety Yes Thromboembolism Measures Implemented Prophylaxis Ordered Latex Precautions Yes Other Concerns Yes Implemented Addressed Time Out Ami Baker RN, Time Out Time 04/04/23 11:04:00 Participants Larissa Matos RN, Rosy Jaime RT (R) ARRSyed, Georgette Thorne Adkins, Brittany E CSFA AUDIO NARRATOR, SAM HERBERT MD Last Modified By: Aim Baker RN 04/04/23 11:06:40 Patient Positioning MAGR (more content not included)... [facility] MAGR Preoperative Recordon 0 04-04-2023 MAGR Preoperative Record MAGR Pre-Op Record Summary Primary Physician: SAM HERBERT MD Finalized Date/Time: 04/04/23 11:08:51 Pt. Name: MICHAEL RAMON SHAQ /Sex: 1985 FEMALE Med Rec #: [id number] Physician: SAM HERBERT MD Financial #: [id number] Pt. Type: D Room/Bed: / Admit/Disch: 04/04/23 09:45:39 - Institution: Pre-Op Case Times MAGR Pre-Care Text: Patient will be optimally prepared for surgery. Patient is free from s/s of injury. Provide information to patient/family related to plan of care. Verify patient allergies. Confirm identity and verify consent before the operative or invasive procedure. Entry 1 Patient Arrival Time 04/04/23 09:50:00 Preop Departure 04/04/23 10:55:00 Last Modified By: Ami Baker RN 04/04/23 11:08:50 Post-Care Text: Patient is prepared mentally and physically and is ready for surgery. The patient remains free from s/s of injury. Patient/family express understanding of plan of care and participate in decisions affecting his or her perioperrative plan of care. Allergies documented appropriately. Patient identifiers and consent correct. Finalized By: Ami Baker RN Document Signatures Signed By: Ami Baker RN 04/04/23 11:08 [facility] POCT Glucose Levelon 024 Glucose [Mass/Vol] 78 mg/dL Normal 74-118 [facility] Comment on above: Performed By: #### 4 [id number] ####[facility] (DEFAULT)[address] [place] [address] Patient Handouton 04-04-2023 Patient Handout [facility] Progress Note - Provideron 0 03-27-2023 Progress Note - Provider [id number] - Nurse[facility] 03-10 Progress Note - Nurse Pt called for refi ll on Lyrica into [facility] reviewed and OK, pt compliant with OV, sent to Dr Herbert for approval [Electronically Signed on: 03/25/2023 11:52 EST] Josefa Schuster LPN [Verified on: 03/25/2023 11:52 EST] Josefa Schuster LPN [facility] Physical Therapy Noteon 03-10 Physical Therapy Note [phone] [id number]#1.[facility] - Nurseon Progress Note - Nurse Patient called and left voicemail requesting refill of Baclofen be sent to [facility]. Patient compliant. Prescription sent to pharmacy. [Electronically Signed on: 03/18/2023 09:30 EST] Giuliana Travis RN [Verified on: 03/18/2023 09:30 EST] Giuliana Travis RN [facility] Coding Summaryon 03-17-2023 Coding Summary HTMLBase 64 BxdoykvoGWe2rDu+PGhlYWQ+PE1 MTWYzF90boGZvcU0pN2UFJCeKFp hbIKZMAVyAYhReguZxTQ9qcZUuZ XJu IC8+HI4kHFTnMnlyvBUci0G5pRR 3M63lud3iJRenmDJ6LUCgKeAgfk pdo9kpqEh5OTcvUcuaObIp SIKdoY99FVI0eN52Cv61yQGfhFF yd7pqyNe0JqZbYNZiXSL8nEsmBX ivf5SrQTAdQ00wfNXww4K1 IJBgpBvjzPLyElFhnSZ4jL8xYIl aibzid1mbrmmtEqm0eb15iGChg6 S8lLP6Z4ZwakT3ZXHtgCMg XbelxUEJqS2rhqscw5lrkvcnDaJ cYGGlSWb8SZn2UWMshAjfZmIiMH 74PSJ1DLPtgtGuN1AqWXYw qZjzBnC6m2M7Oj6RQ6OJWoybK7U NTUFSWTwvdGQ+WQ56uh99G0LrXh jlCoo1MRYjOVP1qYC5aU2u WFHwKJyam4B9wQW2O6MpiqPmdd7 rb0zoQACwZRzoO52dbETvi3L7WJ ZwrFI7YMTgqYvtWfNssG24 Oyc+KWPblLcfn7RkRqmjr6ddu7u nhMo5LtexOBUxoxXsgAvyDQS1d3 ItGe3pALGjoER2zRD2hU3x CxDcUbL9KPkzX718JpMmzWQeYvj eU94wS8OmpZJ+ODJqPtm6HUGmdI ijOF2lY5DtOCOyniuzrILy uLayBC4iVVAavvehCLUdqA8eZYL rC6r3JbEhAsP5TFjdP4OjCBKkrh iwXv76hR9sBnZyWmX1HYdr Y4RnyhK4KARdyLVoAVtiKGH7T16 bi9U7MIGzANQxAIA0fMV7cM3nwX lnbjogbGVmdDsgdmVydGlj SGxtILdvR361NTNqyNrjFuVwXCo uZyBEYXRlOiAgMDEvMDgvMjAyND wvdGQ+SDWwASK3gFrpVDOw fHIpANfuTa6cuEpflIdjRX0sLBV ffupmVCFkvT1bKJFfhLYfuZdoID 8lUZIahjmkj803HqUvZYP0 ZEGpxVIlW5BjoH6kQlIkUOAnCLP lF4SolRJmUHdeD135AOiiRjF5UP JhizUcO3BzWWMxpVncEoO4 i1J9Xa3Bx1IoajgiX1TeoISeTyT dGfvsOPo6Y7MwKvonxRQ+PC90YW XwLW30CFt2KLH5gVkgGWqe CDXyO2HorU1iIgOrDNMxRROiDch +PHRhYmxlIHdpZHRoPScxMDAlJy TjcRnmYJ7sEl6dHTPnOXCi gSrizJLpPiYid6yzDIZmBXuoQJ0 dxWzmW4PtwPE3ZQDqm0f1Em08Q0 3mY5FuiZP+KZJhdSJ0vYX1 pE7oNiExGyD1VVwxE650PfXerAM bGppob2ohj3samLh2KgI7HFOdhn GjsLogDXB4w6PdSu07C09m IHdpZHRoPSIxNSUiIHZhbGlnbj0 bgU2kIu8+DNMvrYN9aMJ9uI1wWq BqMcG4AQpoC240VqZgxKDw Wmzgt0imh9cekMy3CkXcKLOdnqY wtQvsZAZ9s5LlTr58P0PctBlao2 OfJkm6rx15eZZmh8I6bZS1 A5ZeGDIifcekqGIteLaoFB7bMKZ brivpADAnvR7mMZWfJ9w0RrAgSy F9KYtrW5PzcfI5RQHiqUKk JYJsyWZSlE5ejsucj8ipqlgmIuO fNQLxXPq0NLw3LETdkOlqEzAgXQ C1ZcH5NCY9cQMmtX7skUnq jzehbU3dWdq+QRQ6zNAhrXUCEF8 lOjwvdGQ+LNJeTIX6qKpjJSupEJ ItkW7nEMEvS9i0ZqLcKnU9 GWxeR0LqoxJ6HLJjtGXfLZMahYF EuG6tqybbu9ufcotwNkOtRVWaZQ t1YQr8FRXxmXahOuDzWNQ3 ZfF2BCY5hFNheC5pfXsuswaylT8 wOyc+XpfymLvkGIP2PQu4N4CtZd x2VEGjqJsnFY4avURfIGet Bt8btPaxpFqdFA6uAUZqpgrzq37 6MwYpc7fmZMExvVMgBCafWQT7Q2 8gk7Q8LUCbJIZnAST8zBO5 qI4ooWezpibexGVmiFapcrBuxWc rXMmyWBjkZ406DAPfbNtzQfOdWI c3E5OeLpy6ZMLxsFlxYV7f lUZsUWkyFm9uhIcscGnjGQ7kWTH kxuzqa325GbVbj8etPYWwbFEpHS dbVWS0D04cc7S7LLXbBROk YAJ3wYQ1tG0kqCcpgovtcSWkmKm pjdPviZaqYJuxTKmmV775IYKlwV uhPeJraXr7S5HdWow1YSQh kIuvTK0hdLNnYRqmWv0ruJlbqIw oHE6pSVLbyemuj291LpJor4zxOK BapZCtZMrpRUI2T63yf2M9 UCYtZVDhEEC4jJQ3mL4xgYiyhec gbGVmdDsgdmVydGljYWwtYWxpZ2 46IHRvcDsnPlBhdGllbnQg EAclTMr6T3FyPngahJU+PX25ZVI fYZ97eFOjiNLcg7yjmJp7LgBrLU FqFEY8sRpuXImla4YeJHKx J78fuSGlp2V0HSDpgJlsaLDyIgP feOS4qK9eJLlurlnpc9pkycumPv tas7fmkh19oD76D49tGVlu CKRxENYpRPTiFDRyaEklmq2vvQ8 wIi8+RNMsuUJ1mSP1kB6cEEFhCv V7WLvvR609ZiScnNKnFjmf a9mcl7qucKv3UjC1LVLtopQfnZi gTAU3l1MuOs03F08fWIhsRRUoIE RqZDSpEQCcgKufte0bpC7v Ii8+HPVsyST2tKC2oU4fCtNoTcE 1OQemT670SfTpqZQlEoneH24uX2 JvdXA+SZXmBvw6QKQdeJeu NZ0nfMQyCMkaMq6bOVC9WzSmPvF zFNgwN1UeEMGwrqkxqrzoyEA4VV BsUKJcxK83Bv1zfOtuLQZn tOCEyG0rpsipp8kajuuhBnVpUXP wKUc4OKr2GATecKaiPuDpMCX5Sh E6BOJ3bNLtpH7llBwppkdj vS4eJ9VbTAOxpsqyHx74kJ4tYyG sCeC4PDriMop+TVVMTEVOUywgUk GMWDAXFJFHIFdAZkQ8Z3Qx Dea0NXIncRssLL7dfFBuRLauDr2 biSferNisCK4oWHJqyqvsNMMkcP 8jYXHloOQfkYzgEX2xFBRu dbafq796TsNsCSS6CVJadUQqO3A scX8iHfBrQCDkPPBzC7GmvFScNF dhQ665CDwrMoC7BGUdfqFg Q8EuTEWjoBclIpM0x9H0Sz6dKL7 dCb8xNTp7ZU78IP66oBLxb7J7rF O7Q5VaZUGimcyjshhdeJT2 BJSqJHMvnB47xAGpGAsrTq6wm4R 8y543CURvZHMmxH48Xb1nbVavST TpmVXXaS2rnuqxf3wgsvrm YcEsCPZsMTy8WVr7PTVzpAefMsX xNGI3HhX9XNR9vMOzrG6wjExoxn hmpE7kKbx+MzcgWWVhcnM8 C3XaAak4JIIwiUnoSS1peNXnJEx xDi9taVgguHtoYR5bXLJaxkwxUL XsyH6sXQRzeQHmqXpgJX5v DTIsagbhq581ZnMoKFX2LKJseSM wT9TzbZ3tRzVqELImTMZrC6UmcB KaSWgpW511ICixBnB7CHBd fkAjI8VzSUAoiUvrAhB8s8M9Yk8 GJB0NLGV8W4DwArr2BAPajDhsET 6cqMJvEDppDl0ffSdxoCjd UL2fJEXpwvmkDFLlnO7aIMYapEN dsQruLP5aBUVjfajxv340LsHhAO J7IEOsgJRcA2ZvcV1nMoFx EEJuUKJlH3QjbJNoAEfuB480MXm hWuT2INAsgcEcL7CwSYYtpMjaXn X0n4L8Cv1BNKdopFY+PC90 mw64I3JdEhjbTyv2DUMuZTK0mQX 2sS9fSKPpUUnbv9O1zNL4O3Razr Gvyd8vz4rqBSCzVFexM77r vNBwz8D9WQLedBP8NBFolZqqHwQ ljM72Pww+GVHfkOxob4HtBsisu4 tll5btmAp4BdOxVYIvobSn iPciYEK6e6AwAa48R36eUUwoVZS uRAPhJUPuADNquZtnwb1xuY8jUd 8+ISEwcVV6kUF9iM9sUbDi SwJ0CNypC959DuAwqREkSoebd1p oc2rbzSn4BhOuSFMrkzBntRvrSE U6f1PaWm53A5IrzIslm7Fy Len4zo67hUYhl0Q0iMD5R6ZtPEA keeqrwVFxeXnhRO0qTNJkksowCH CxeW4xQEXwR5w7IbGjYpZ7 KYxeU6WodwO6PCEnnGKpTVHtqNL VnO8wtwvur0dfznomUmLgAZZyCX f1YZq5RMLgwTotAkOqINV1 FeH3JWP5nKKysO5aqEoniwejuA6 wOyc+AFl9i2tfuEFnNB7rwIP7XR 49AR10aZPjm9E4uJB0H3Ao ACHepwuidwxpmHL4XQFeDKIeqO0 7Qj7wsIesCh3xJLAoXJC9RMEgqB IxO1IryG3kNqPqGJIaQOYq X1TliLBcFEedO409OLpnWnG8BYN hfhUpN9QhIEMhbMdcEnS9m3A0Us 8XXA90RU46LE84cNIew6G7 iIO3F5BeJQWlcevmaahvxJD2UKH qOZVytS46Sa0inGwhUx1iHIOsQL G9CDMmyYLmB4YifB7lJxCp ZSXyFKJpP3GfpEVbVHmlR717LYx dExR4CURgvlGiF3LoUOMtcBmoMk F3y1E3Za4UYq81LK04ZH63 pRYpu4P2sFM0N1EmRYXapsscauc yvVT1ITUgXSRrzL75Fa4ctLqyWi 1vVLIgVUI0IIEofDNhP2Fa gY6fVwJgEVUcPKHsK1MziKGgWAj wX186LHvnOfM3CHXhtqHzW0OdTO GaiGkjFsW4g9W0Bi9OWTfk xdy6G7KjHkawoJZ+TI72ZGWnNT8 8hLWrtYUgj8wgvIu2UnOuBPBiFO X5wCtyGCmch9DcISEmU26o [facility] (more content not included)... Normal [facility] Activated partial thrombopla stin time (aPTT) in platelet poor plasma by coagulation aOrdered By: Imad Asaad on 03-11-2023 aPTT Coag (PPP) [Time] 37.6 s 25.1-36.[address] [facility] Comment on above: A hematocrit value g reater than 55% may lead to inaccurate results in coagulation testing. Patients having hematocrit values >55% require a special collection tube for coagulation studies. Please contact the laboratory at [phone] for redraw instructions. Coagulation Profileon 2023 aPTT Coag (Bld) [Time] 37.6 s High 25.1-36.[address] [facility] Comment on above: Order Comment: STAT FOR UL Result Comment: A he matocrit value greater than 55% may lead to inaccurate results in coagulation testing. Patients having hematocrit values >55% require a special collection tube for coagulation studies. Please contact the laboratory at [phone] for redraw instructions. PERFORMED BY: [place] [address] PATHOLOGIST PARTS PULLER SINCERE GREENWOOD M.D. Performed By: #### P P, PLT #### [address] INR Coag (PPP) [Relative time] 1.1 {INR} Normal [facility] Comment on above: Order Comment: STAT FOR UL Result Comment: INR Therapeutic Range A) Pre- and Peroperative OAT started two weeks before surgery. NOT HIP SURGERY: 1.5 - 2.5 HIP SURGERY: 2 - 3 B) Primary and secondary prevention of venous THROMBOSIS: 2 - 3 C) Active venous thrombosis, pulmonary embolism and prevention of recurrent venous thrombosis: 2 - 3 D) Prevention of arterial thromboembolism including patients with mechanical heart valves: 3 - 4.5 Performed By: #### P P, PLT #### [facility] [address] [place] [address] [place] PT Coag (PPP) [Time] 12.3 s Normal 9.0-12.9 [facility] Comment on above: Order Comment: STAT FOR UL Result Comment: A he matocrit value greater than 55% may lead to inaccurate results in coagulation testing. Patients having hematocrit values >55% require a special collection tube for coagulation studies. Please contact the laboratory at [phone] for redraw instructions. Performed By: #### P P, PLT #### [facility] [address] [place] [address] [facility] INR in Platelet poor plasma by Coagulation assayOrdered By: Job Martinez on 03-11-2023 INR Coag (PPP) [Relative time] 1.1 {INR} [facility] Comment on above: INR Therapeutic Rang e A) Pre- and Peroperative OAT started two weeks before surgery. NOT HIP SURGERY: 1.5 - 2.5 HIP SURGERY: 2 - 3B) Primary and secondary prevention of venous THROMBOSIS: 2 - 3C) Active venous thrombosis, pulmonary embolismand prevention of recurrent venous thrombosis: 2 - 3D) Prevention of arterial thromboembolismincluding patients with mechanical heart valves: 3 - 4.5 Vladimir 03-11-2023 L ------- Specimen: [id number] Received: 03/11/23 Status: EVENS Serna Num: [id number] Spec Type: Surgical Subm Dr: Mohit Mcghee DO Tissues: A Liver - Needle Biopsy (LT LOBE LIVER) Procedures: Trichrome, Reticulum I, Iron, HE/2, Gross/Micro L5, PAS - Hemat, PAS - Diastase Age/ Patient Sex Location Account Attending Physician Michael Ramon 37/F [id number] Job Martinez MD SPEC NUM: [id number] RECD: 03/11/23 STATUS: EVENS SERNA NUM: [id number] GRACE: 03/11/23- SUBM DR: Mohit Mcghee DO ENTERED: 03/11/23 [facility] DR: Job Martinez MD SPEC TYPE: Surgical DEPT: S ORDERED: Trichrome, Reticulum I, Iron, HE/2, Gross/Micro L5, PAS - Hemat, PAS - Diastase ORDERED: Trichrome, Reticulum I, Iron, HE/2, Gross/Micro L5, PAS - Hemat, PAS - Diastase Supplemental Report Addendum 1 Entered: 03/18/23-1257 Supplemental for findings of consultation report from [facility]: -Features of steatohepatitis with bridging fibrosis, cannot rule out focal early nodule formation Addendum Signed (signature on file) Fidel-Eladio Spring MD 03/18/23 1258 Pathological Diagnosis Left lobe of liver, random core biopsies: - Mild to moderate chronic hepatic steatosis of the macrovesicular types - There is focal mild periportal steatosis in at least 2 portal regions - There is apparent patchy mild to moderate chronic inflammation in the portal regions, including mild periportal interface activity in most portal areas - The portal chronic inflammation are predominantly lymphoid cells, but also with Specimen: [id number] Received: 03/11/23 Status: EVENS Saad Num: [id number] Spec Type: Surgical Subm Dr: Mohit Mcghee DO Tissues: A Liver - Needle Biopsy (LT LOBE LIVER) Procedures: Trichrome, Reticulum I, Iron, HE/2, Gross/Micro L5, PAS - Hemat, PAS - Diastase Patient: Michael Ramon [id number] (Continued) Specimen: [id number] Received: 03/11/23 (Continued) Pathological Diagnosis (Continued) Signed (signature on file) Ritchie Spring MD 03/14/23 1246 Specimen: [id number] Received: 03/11/23 Status: EVENS Thomsoncrissy Num: [id number] Spec Type: Surgical Subm Dr: Mohit Mcghee DO Tissues: A Liver - Needle Biopsy (LT LOBE LIVER) Procedures: Trichrome, Reticulum I, Iron, HE/2, Gross/Micro L5, PAS - Hemat, PAS - Diastase Patient: Michael Ramon [id number] (Continued) Specimen: [id number] Received: 03/11/23 (Continued) Pathological Diagnosis (Continued) occasional PMNs at the interface area of occasional portal tracts - Occasional plasma cells, also not difficult to find, are also present in most large portal tracts - At least occasional rare eosinophils are also identified in some portal tracts - There is focal mild hemorrhagic disruption in 1 small fragment, and also with an incidentally noted or embedded squamoid nest within the blood clot - There are only very mild lobular inflammation, possibly related to the interface activity, but also including at least 4 evolving acidophilic bodies - There are only very rare balloon cell changes observed - The PAS stain highlights the large and occasionally small fat drops of the macrovesicular steatosis - The PAS-D stain is negative for any abnormal hepatic inclusion disease - The reticulin stain showing focal mild lobular disarray of the liver plates around the steatosis area - The iron stain are largely negative at score 0/4 - The trichrome stain showing patchy mild portal and periportal fibrosis, including occasional mild discontinuous type bridging fibrosis - The overall necroinflammatory activity is about grade 1?2/3 - The overall fibrosis extent is at least stage II and possibly also evolving stage II?III/4 NOTE: - The overall findings is most compatible with moderate chronic fatty liver disease with the associated and (more content not included)... Normal [facility] Platelet Counton 03-11-2023 Platelets (Bld) [#/Vol] 284 10*3/uL Normal 150-450 [facility] Comment on above: Order Comment: STAT FOR UL Result Comment: PERF ORMED BY: [place] [address] PATHOLOGIST [employer] PULLER SINCERE GREENWOOD M.D. Performed By: #### P P, PLT #### [address] Platelets Auto (Bld) [#/Vol] Ordered By: Imad Asaad on 03-11-2023 Platelets (Bld) [#/Vol] 284 10*3/uL 150-450 [facility] Prothrombin time (PT)Ordered By: Imad Asaad on 03-11-2023 PT Coag (PPP) [Time] 12.3 s 9.0-12.9 [facility] Comment on above: A hematocrit value g reater than 55% may lead to inaccurate results in coagulation testing. Patients having hematocrit values >55% require a special collection tube for coagulation studies. Please contact the laboratory at [phone] for redraw instructions. US guide needle placementon 03-11-2023 US guide needle placement [facility] Main [address] [address] Ultrasound Report Signed Patient: Michael Ramon MR#: [id number] : 1985 Acct:[id number] Age/Sex: 37 / F ADM Date: 03/11/23 Loc: UL Room: Type: [facility] Attending Dr: Job Martinez MD Ordering Provider: Job Martinez MD Date of Service: 03/11/23 US/US guide needle placement: K76.0 Copies to: Job Martinez MD Ultrasound-guided Random Liver Biopsy HISTORY: Elevated LFTs The biopsy device: 18-gauge by 10 cm Bard biopsy gun utilized. Core samples: 3 core samples were obtained. Informed consent was obtained discussing the procedure and risks. Patient agreed. The skin entry site was localized with ultrasound. Skin entry prepped and draped in sterile fashion with local lidocaine administered. The biopsy device was administered into the liver with ultrasound guidance. Adequate core biopsy samples obtained. Samples sent to pathology for further assessment. Patient states no immediate complications. No active bleeding identified with ultrasound. US/US guide needle placement IMPRESSION: Successful ultrasound-guided random liver biopsy. Impression dictated by: Mohit Mcghee M.D.03/11/2023 2:50 PM Dictation Location: [place] [address] Tech: Denia Goodwin Transcribed By: SAEID 03/11/23 1450 Dictated By: Mohit Mcghee DO 03/11/23 1446 Signed By: 03/11/23 1450 Normal [facility] US needle biopsyon US needle biopsy [facility] Main [address] [address] Ultrasound Report Signed Patient: Michael Ramon MR#: [id number] : 1985 Acct:[id number] Age/Sex: 37 / F ADM Date: 03/11/23 Loc: UL Room: Type: [facility] Attending Dr: Job Martinez MD Ordering Provider: Job Martinez MD Date of Service: 03/11/23 US/US needle biopsy: . Copies to: Job Martinez MD Post biopsy ultrasound assessment of the liver. HISTORY: No worrisome bleed. US/US needle biopsy IMPRESSION: No worrisome post biopsy bleed. Impression dictated by: Mohit Mcghee M.D.03/11/2023 3:44 PM Dictation Location: [place] [address] Tech: Denia Goodwin Transcribed By: SAEID 03/11/23 154 Dictated By: Mohit Mcghee DO 03/11/23 154 Signed By: 03/11/23 1544 [facility] Coding Summaryon 03-05-2023 Coding Summary HTMLBase 64 OqwemhcbXQb1mKo+PGhlYWQ+PE1 MAZHkM20fbJVhqI6yB1NOQQpNDa iwMNROTTqBLaHkfhZrKR7fkZEuM XJu IC8+HT2yFKSvUcznvLCwj8T8iPB 6H14wca4mZJvfdJR7BJSwCvGmdw tsy1yqxFb8XEqrRkljQoJw WLJxhL43QKY3qX97Gf11tUJtbZF ea9zcvXk5NnHwCAGwMAM6zLqxCP hcg6BeQJLaY37bkWCbc6Y6 PYNtnXqexUUyKrVgxIV5lO1mMTs yvuany1vilkmpVha1ay65rEIeh6 K7vFD7S5AqmcO5JPVjvJQl PpqwoQFVzW6fruwcz5rldzkjKyQ iIQXeEDd8TAl2NHXdeDuvJrWbXE 27ZTK1NYAprcQhY6NtVIAe oRaqSgC3x0T8Nf6FT6AAIfliP1W NTUFSWTwvdGQ+DE10cz28X9HyGc jcBlv5DETsMIN3lKE7hG8h MFUhKHkes9R5pOR0R2PhewJfvq0 ii6szLYNzLJlaW37hbDPxh4X8FN LxpGD1GISarFqoAhSwoI91 Oyc+WKJziRfec7SqNudyo6qwd6f ouEk7HicoFYXavhLinQubYBS6n2 JvSh4yGBXvaFS9lID3pP7b KxDvLmX7FTjiL169UcUwcJRkNdd wV22uU8BswWN+WYJwCdc5DEGmmH zeJQ0qW2VmFAWaofzzkAXm rJzzLL6xQYVdujdpNBVsrQ1fHSY lV0j3GvMyWmV8JTdvZ6IuLYQyog tvRy70uC1hNqAtWdW9HScp Y4WljxH3FGUprNLfFZfgBYZ0C85 rk5Z3OWPxRJVjWTP2yQR7hJ5ijN lnbjogbGVmdDsgdmVydGlj YNvqFXcwN198XYNiyMcaVgFpNWp uZyBEYXRlOiAgMTIvMjcvMjAyMz wvdGQ+CBTpEKV2qHhxMXVg fVGhTPemPq3awCnldTfpWP6wJID qkrdgGNPtmB9rNVXraWPljGgpCX 0uIOMdmfvwc849ZaSzBXM4 EIUtlRGrN4MquG1fKzJuEZUiPIC oE0RreBUsQXeiS355NQgbFuH2OL DjykBjR8PlVEPdkGiqCsS2 a7G3Dm9Ul4PqwiuuA2WbpSOrMeA aPysiZHm8G0CeFyiwuSP+PC90YW VaHK38DFa2YXR9nMqgRXyf LQPkF6YvgO7pJoCaAXWnDNWaAbv +PHRhYmxlIHdpZHRoPScxMDAlJy UzeYqbCL2zOq0mPRDsUDQd oCotfCGoUkUpw2piUZFxNWfpPB5 mqHyyE6LtiLA0WRRkx6q0Wf68S9 5lB9IqbCI+KSVqmPB6yEQ3 rW9cEgLpCoD3HIddR464QxLgzBB kWxrxp5evs8wbpBs2OrK8INJivd WyhNmaLZB6k1ZzCu48T62b IHdpZHRoPSIxNSUiIHZhbGlnbj0 cxL2mDu9+IKVufMW1cJT4vP9nBt LsShH7QFuhF781DeTdyGWz Mkuah1ask7bilWu5RkZmAHToooB yyYblKYR2w8WwRw45C3RdtLgkh2 BhUhu2kg49pEQbj6J1tWO7 C5EeNWUeukjstQFnqLorVZ9gXCW xyawlLZKbeA4yEYJeR0s5AlSvHp P9UAfgW5IwaaT5MTRooVTw XEEzgWPKeI6texwyy1qgpeqdLwO sQEEgBWw8FNa3FFWwiKdoPqBwOU P8KoX9UJO0rJCjmE9wvVcx ynwldP4jAhg+IHW2sUYifFYIKB2 lOjwvdGQ+VUXdVCC4dXiwSZwlVS QilX1bPXLfV7i7AzTjDfG5 FSvbX4DgltB0AZOoaUMlBCYiiPA QtI5gasggl4taehvnHvXoKXPpUH s8YMs2MDVrkBamBgKhZGH8 TvZ7OHD6zWRzjD1ywQejrtgvuZ9 wOyc+LsnnxTyoVDL5HKl2Y3VxQx p5LHQkuOypRH3xvXZnJYdi Tb5hpRlkzAmuXH9kZIAasdqkp04 3GgBvj3iqSRZgaREsLBpbMZD4R1 2eq8X4XCPdEBZnDUB7nUK7 lB8awHauzhtkqWKkfGdbwrBbuMc rLEeqJCveN970PWQclMnxFiKsYC o2K3RhJsl6BBIdlEcyEZ4e rDScFGseFz4oiXrkhGazZN8aUEE usnhth253GkRwi2tzVYRwyNMqKB liGCV8Y77sr7C4ESPxOSOa SVX1wTN1gX6xmXnidvhthXZcwAd qfcWfyElfETkcFGclS757RNPbrK muCbIfgHb3V9ZxKxk3CILj tWxnBH2quWTjULzyOm2ctGpmdCw zVC9nBKCwajmxa337DbKjc3tgZN RjzEQkNHtvOYS6O04aa8N2 FQBaVGNlOUT7dML2iJ1cjFuulki gbGVmdDsgdmVydGljYWwtYWxpZ2 46IHRvcDsnPlBhdGllbnQg YEptJZv5M8TnGidizJC+LY87QLU zQN13fGEpbYHao0jsrTv5ClOqPS JmILA0gSifVRjsl5AjVGFo G63fcXHyh5N7BIVbzSmizJBaGzK bbJY1zX6hRVnhkifje7enpalvHe eoi7cfkp07bP95F60eZEon WBBsGHXbIXDgVUOfqUoewp7duU6 wIi8+EABqhXA9rWE6tE6iFZXoRv O0BIuwH196SxUbzHHcFkiq e7bom1akhOy5YgJ0QFMnahZhwEz fPAA5h8RbIa56O80iFZaxXANxTJ BlBWQjWPDqoKpico4uaU0d Ii8+BXLcmNN5jMO8qV5tVjDvDeK 7GEldM305UmKdlMMoLaymV51kN4 JvdXA+BSTaHnc5MHBqpQxd ZC9xsRNmABosRx3aRZO3CnNmUvT mMHrfU5QjYRKeriqwqdvihVS0UV CxGNIusZ27Xw0upYuxSCLj jZPXjD4yeofkm3acbjsuQeYtQVN rESs8PUl9IYIeyVvfCpYyIRG2Yd X1WVF1bETtiD4qnWbrxgcc yT1yQ6OkPLVfsghlOd83rQ4dTtY tDvT2JQuaOib+TVVMTEVOUywgUk RKYCGXGKAIRNeUUaF6X2Qe Izw4HPRffPieSP9bfQVwGDeiFo1 idFnvpJsyKR8uFPYnlmhqRTWtaX 2xPJPagNEydUxrJE5aDYAd jghil014CgCuTRT6JCJwjBXdT3M qdV2fAlHgOCNkNUVeP2HwiMVgZY kgY273LTdvWzL6QGUiywPh K9CuOYKjdLnkGjK4d8N4Kb7bNG0 gLc8uCLb8FC64VI85hJDqf7Q6iF K3P1JxSZLazyjwushreFF0 OAKqZHDwiH85iKMuOWhzZh7yu8T 7s467RPPcRMSpiH71Yq6cvWtlJW ZobRCKmU7zvbflm4bpszlh YuVkIPSaJIr4MGg4ZTYswMaoJwM eSMO0VpA7TDB3uYAvlN0hqApwsk dypY6gMxb+MzcgWWVhcnM8 J9LxQii8QKTkiAfmJZ4waLWrDBd qFm3jtKomnFunCL7uDWXbfevlRT JtdF1nHSTtgKTjoCyoZP5b JDYrmqzsj551EaMmWZH1TSZlyTH iH4BemM2gRkTiNLYbTQPkT2SanY BrDKfcH385RKvgKhK7KXEi spIoD6GqTCXcsNdbTxD9n8G3Zx8 MCN1GYOY0W7LpLov9HYLhwFjrHM 7lnFNkSRplHf4fgGrzqIia VE3mBARfukkuYCGgmQ6dQSGaeBP neDtxUT8rGUCfjekhi039DlBmAJ D1UKGibWRqK0MiwE6tJcFz QGEaMHTuR2NejKLsWNziY307FPu cThV1NGXslnYzA2ZcVUUloGkzUa L3p4X6Da0BBWzboOV+PC90 tu42I0BzLfobMyp1ICReNDE8eGB 1hZ0zXLTfBZyva9S8aOJ1T3Itqm Yuee0wr2fmEDObQTyfP70o xMAlu3N5ZLFdqQS9OSGzhWzaIyJ hhG84Woy+QVEscGplr7KfYlhoa7 bsz2jswGr1GjJiUGYspsYf nFzkZXM4z3PbTq32X97tOJcmWCL xLCWjUIRkCLBfiIsdim9nbP0tHz 8+DPGioAW7bWE2vQ4lYrPd KhK6LMfyE526SaSqoROqJdclg2d zg2qdkGc2XtSoIWRwkuVokLsiYZ P4d3XfVm25R0JhvZato1Yx Zfi4yk44nLVgw9H6fHR9K3AvLHJ uacfipVQxtJygPZ3uPXUxnhesZT EleI4zATFiB9g2IhGrJcC2 QGboF5QnsbF5OFLslVRpQSYptUK DaF6ybzrqe1lvowbnDnPwSPPmOT d2BUj6ENIfmWppYpCmSZJ0 HnY5ZWY0iXJyqJ1yuNddjxlnzF1 wOyc+HVi9v6mmuSFyWB4pkVC9LQ 61GC21eFTtq6F1mKC4S6Op AKAryrczwwcofPO7TTUjSPNkfE9 3Nv6edOpbVn9zXEXcLTR6PBElgA RqP7EbkK5hZzNoCGRdZWNe D9ZscDSmODpuW423YVsuDyS5XDY oisXmD9OxXIAdpYwuQoU6t3J2Sp 8ZQB68GR11OK40fRIxh5U3 xOK3Y5RqLCEidjynxvzzzKU7NEB hEUDitK80Zn2jnGfsFw6fNOFwTW G5DYJxmKBqY0NdfD2oLnUn FPPcOQUwH1KgpLHyPWvkG572SWz sRpC8UFCgtoXaF0LqTZJwxSecGw E9q6K7Xg1ISe31KS59YQ78 yASuc9X5qGR3V4WsFDFnctmmtak geMR2VAXpCBJvkQ34Sc0osGwaZf 6pUIPzNLQ9HHHazHOzQ9Xm eE8vMtZjJPUkWLLrZ7RirPSjZXn wD744AIylZmV7SKQwfdLhQ5XxMB FzvLnyCzR3f7M0Nh9UJVxh pma5T2HiCajaxGC+TM40CQKaYF1 6vUOrrGSdx9agqTx5HlKlWKTmIW A7yWozNHfwi7ClKYYpD75x bGF (more content not included)... [facility] Provider Orderson 02-27-2023 Provider Orders [id number] [facility] Coding Summaryon 02-26-2023 Coding Summary HTMLBase 64 ZtjhdvzmADg6yVi+PGhlYWQ+PE1 JTXHfU48zzIBioM1yR1DFJFlCSn xeWEQZLKoOIlEvfhOxFT8waKTbE XJu IC8+LF7qAYXaWrirkQYoc9T1oLO 5L15vxr9zSApkcAR7NSRfYtEulp yzg7yyzJr3PFijQqftEcTt MGZisW99ILG4dI40Gb15cJFceIB ky8eafPk7UiIdHNLeTUD2zPrsLJ vam4GcRGGiE39mkJIpj9T1 KMKyuCezfXIhBgZgwKJ8uM9tLRd vyorzy1oosvceUoe3nv62cWIkw8 S6kKO5I8RmllF6HWEapFIv HuzgqGNQuU4lfouuq3tbhmzbUsK yJFZrOIq8UVx3LLHdvMjkNpNcUF 82ZBQ0PQDlxnUhE4GkGECi oVmcTeI0k6I1Sn4CS9GNRojwK2C NTUFSWTwvdGQ+KX35uw87C8SvNm xoLqb3CZCeFRU9nFX2xF4b ITGcYTbxa8E0eSO1M6AaniRact0 cb2ekJJOnKGtbV15atMUvm4Q1ON IlbZE0NNBqmTkjKdNcxU42 Oyc+QECajXaan6MfQoavb3cbv6e ebCk4EzirOEYbxwVvpVreUSH8m6 FyUa2kBYElqJX3zDW2yR8e VcFjNyY2FPpmU996IqYnzMWpDos dU76kO8JvxDG+LGXzRhu2OIZcmD rlJP2cV0RoNXFmncvshIFd tWidCP8lCKMcryohLKTqnS2cOZK xA4c0GsOoTxW3IOafB0UxVTNukj ytMy23xK3dQkHqYlE0TOyg C5CeivJ9FYFecMNdNBtaUWU2D14 pw5J1IBYmXKAyLYU5qJY3uL8rkQ lnbjogbGVmdDsgdmVydGlj FWpfWDpuV189PZQpwJgyDaYhBZz uZyBEYXRlOiAgMTIvMjAvMjAyMz wvdGQ+DUMkVNM6tComCLHs zYHoGPzsLk0mwAeuaPjjAB6eCRV uethyLDVmyA9gHUFieUSmxJiuKO 1tTEIknqtcz944BsAuOYV2 CSGkfQMmN3NnzN7tCrSqGUDzBSK fH7SssSJwXCveH215MRuzUaO8PT PjaeQzH1JzPBStdFdhQoK7 i4D9Ug8Fu0WlmbprR2YykIMkOeF pSdsiBPj0U0TvJgrvwCB+PC90YW OhJG39QCx3NEO6bEsjCCae SHKvQ9GppK7pVyNjQCBcFEJpOlr +PHRhYmxlIHdpZHRoPScxMDAlJy YhdIhbIG8yLo9lPUOyHXZl zMxtfKLbNvHyl3khROQrKOltIG9 eyEjvH9NlpGC1ZFHib1j5Kw52V3 7dO9FfsIX+BUEjkZS4zDD5 iZ3rKeIpZpH1RQnkS084MhOmpGX rMzzhy1mxw7abhBo6DhG6UPBjjo LeqEqqDZQ6w2AfYd05W93g IHdpZHRoPSIxNSUiIHZhbGlnbj0 vmO3tUv8+SPJvlSB1oLF5mE6cVr FqIfM2ZSffU618GeSvqVPn Eunpw5nng1azlMi4AwCfDIVnozN iqEyuHFF9z7EfOi63Y5DdsOaiv8 NfEgx2mq16bUAue6W3yVI9 A0HsOFZorhiovDLttFufXO9iMYR kcdyvXUTqsD7zHUQyN2r9BdSxDk N7LNndM5MwofR4CIXzbTZk ULDgpJJHiX8uxyxkm2nzzcyzNxK zNKVnDBm7ZRa9MYAzgVvaJrJuPR H6MhG4BBV7hZHasI0yhImj fbespY6iWvc+LJW1pKYagUPKZI9 lOjwvdGQ+LXNiURQ9aPrvYOatIP LwjN1mEZWkL3f2VeSiNuH3 EQkeQ7CmxrM8XBJnhRLsJMAosIW WuM7txdbht7ewsnzePwElCIHuPC b2UAu1YLDbgWhgRnZlEHM8 UwY2WTS9nHOkxW9edCiizqcvjO2 wOyc+BzjhgSxtHWN4WYc9Z6GdMc s1XCXfjEfaEW3wyKZnYRyn Yz6cuFdkiBqyNP1kOOMxdkoqy86 5LjHzb8jgLMOreMXfVUchKVS0P9 0ng3Q1TBLaJZFuRWX3iNX1 eS1ngUcbmouqtCMpdXztrfWpqMp lSDktNQirO854DSWzvSjyEwXlAM w5G6TgHnx0QECmwOqaAC9e fTQjLJfeEd1gzMnafOcqLM1pKMZ pxosuh567SyIai8ylTAScsGBkZO zcNGS1P36ic8U9EQCiWPPr DMO7pHA7wI0hvHtjvggesFXzgCf qceSbjPoyBDhcCXxnX086EEMrjH fnJzEnoKc7A0HnDpt8POLs tVpuOK2qmBDmMYukAn6toGouoIo zBM3rRSFkqgsxe567RzZsm7fpPX NrxYNvISynUZJ2O50th9K3 ITRxOMYbJIC9gMP6cY6lmBsahvy gbGVmdDsgdmVydGljYWwtYWxpZ2 46IHRvcDsnPlBhdGllbnQg WOsbCZl5W8FsSpkcoTN+EU30ZCI lUF91uKPovAYxp9xygNh8BpNrCL FpDQG3cSkdQYpxn0LuMBBm Y03srEHbf1A8VYNklQhvaLVeYfO wsJI3oB3xMKzqeukwc2ywmlpeXs eaa3pnqi29rE55Z44vVVcn PMWfKZMbRYZlAIBkrByien1qnC6 wIi8+BHSmtOQ1hBE3bL0gNBIuXv D3YKxsD977KgKvtFEjAajq j7klr8ugmNi3EiK3KUVzoaPzxCj qTNK4y9WlYn42I20vKFabLQQgXE QuMJGeYVRtuKsapl8uzH5q Ii8+GPQqzZB9nXO2eW4uIlLdNkQ 5RDkpJ180VmGmlRAvWzasX18hH5 JvdXA+CDEgCzh7UHItqBye GS1drIYcLKlmHi8kRAT6OkCdXdV kPSrkF1BjQRJkjwrxmawbsCC6TK SwIVCpdV36Pd5dkNqzVMCo gFFWyV0tubnzi6ysobdmBsPuUIU fLQb7NQa4OJKdfWxhPmGhTWH5Sh S2RFV7iUHdwM6yuDwwbcpv aY8eG8DwLOMwergkKs84fM5wGzX gCgA8WJofDsl+TVVMTEVOUywgUk LUKTCUQPKCZTfFGuR2L0Pp Wwn4VUSvjWpjPZ0wpAPqJUuoSx4 fuCtzmCanDN3fJSTuesyvSDEgsC 0eBVOljGQqrXbqCZ3xGPGp uzsve950EqOaUZG0XYEsvDNxX7E gyN1bTqXuLXJvRUVaI8VmjTYnTD ijU518HRaxYoW3BTRlsxEt G9WoBOItrBqfOfZ0i2B5Df6aLI4 jCe9bAZs7EL20PB70cNMzo7E8hZ Q4Y6GbYBYdtaohxrkwgEW5 MCRdMFEeeN77sJNtQLxnKm6rf7X 8a973LOAkRSAtgO83Eu4sqClhSH WvkHTZtV4waahfi1jgveuh CeZfMOHeYKc0CMi7ZVLilVgbBpY iWQW7QgH5MCL0dQWibG0ibYoces chdL7qTap+MzcgWWVhcnM8 Z9WsXnv2OVHueZnsQK8gnVPoQGv mAh7uuLygbFuuOX5vQVIgdvztCR ZgmI8oHAUjeAVhpLldAM8o QBKmeqbip762DiNmYQH3XODgwKP rB0XwkJ2fHpHpMAGuHHSoP0QshE PkIOwbC072WKxaXsJ4ZVPv lgGaS5JkETHphIxrWhD8b5O5Ue5 BGU6FDVD3M4HzJhl0BQMlzBlxQF 6xjRYpBIkuMw3jnOlerWva OI4uDTGnbqkfEHQamP8rFWXtqEJ rkGslLC4oOMTuurtnm417UwSbVY B7ZAIzuZUaJ1PklP1zUiZs TYLxIVZtH4NmsBCwODdsY652HQt tQcE6BCJtgvFsP9BhCZAupCtaEk W7z3B4Cr0AJQzrkLG+PC90 ps75M6JnYcrpVlb1OJBbDOA3xHW 0gZ7mCSAzAEkse6I3wPS6D5Qcsn Tsgs6gi9ovLIAfIHocF28u oKJwe8L3OIXdeQE3DWXxhCzkXiW niU88Sty+BMJzeYspo2EqDupgq9 emi5erqTy9CaWhKNGjxdOk gVmeMXU2b8YgUp81P26eFCklUJJ dONOjVKYwYNDilJufzm4slU0nGn 8+OLVldLQ2lGE1uA6uUsFt HhD7ATueK427GjLvbLNgGqcnv0m xv1tjdSs2OaZfTJQrwoRnuJbgAU E3f0BkJl26J9ZucUdpb5Hq Tgt2dx93mUPaa0E1pJK2Q3UjBSU nkkzncUNyhAzmRR0kOGAzyzxgPV AlqY2fLWLxG5m3SvIuIeC0 PZzzM9MmxsN5OKGenAMyCGOrrOG RcI5pyhjyw2amltrhIrCkYELnDZ t3ASr8FMKlkJlqDdFiOSC8 CeQ3BHY5qNDbyT5svZjzkcnpnA9 wOyc+VRv5z0vhwXLmNW7azWK4FE 81RG49bVMbm0A4iHW4L7Jt GAGodkruarwhfPN2PJZcDIOzzV7 2Em7umPbhSe8nULHwHNK4IAPfqC RgM9NppW2eNdOlFQVhNACh O6HcaIUsFXpjJ684PVabTgD0DUH hrsDyC7DuEFPhkTfvYcO8y0T7Iu 5LBQ20GS66PH63vNDrz1M1 dEX9H8ReYVInwxodkuiouWZ9TWZ nKRRelU53Pp9fzUwyAy5pCOWyEH W7EXWcvHDhJ0DvhI2eUvNg PIEkBJGgX3LrdMHlENjwT675BNv tVzW1FPOdnvBqA1ZxKRNwyKgjUk T9g9M7Ev1MSp60SE84AZ92 jBXwi2W7iOF2H3CyVLAqaeaombp gbWC5TVAoFEOxiZ41Po9nvXtvZn 6cNIQwDSU9CTFgpJMbB8Il kV3jEzRbFVGcDPYlF9MinPLpGLe pO414RXngUoJ5HJLixzAuL9SnDQ QugPjxHaP1x1O0Cs5LXIlr ogs7F8LnUykwsDB+AL37OHUdSW8 8jUVbmZXsd7iekBk4NaZoDRPhZS N4pOmsEQgfd3BsOIIyU40u bGF (more content not included)... [facility] Coding Summaryon 02-19-2023 Coding Summary HTMLBase 64 EuanmaevMKz6eEq+PGhlYWQ+PE1 PZATlB63moJZixX0aX8PEAPaNGu zfKHTKVEaUQuYejpSaKW4ceGLcO XJu IC8+IC9jJTApJwtksIVux8B2tHT 3Z27nvi4gCWgwfVB3DPSfJjZwua ehp5wrfXt1QEodCnuvPbOc EKOmqS52CTF9bR84Ki87bGQboDV dj0facZx3UpYzIQShPHO6mWcaUK kvz1KxBOUnI99wdMXzw5T9 YDOgzCkkmTTxPvGdzSA5nO7kBDv yotiku4hqxqxnLlv5po86mSKgt4 U5mZL9P5JubbJ3OIIcrPCv VpswxQSVmE3jxwuqo6ghmwkjGnE wQMVlDPx8JEm5VTOnmOiiDbDzLK 24KVG9PBEjszIoR5HuVQNl nSrbMoE1g6P0Zk4WK7NIVladN6T NTUFSWTwvdGQ+QT40ql04H0TsSv ihWca7QLMrOLA7gRM2iV5n TYEfYElwu6K7cLJ9E5FcicOgpt0 fs8boXHAsFEvzY71ouVGay8S2VZ QjsVY1PRSmeUkoOjRuyP16 Oyc+WJFzlXser1OwTeear0cdd7t xfIw6HdhfLEZrptFlpSyuAXJ1z9 OfRs6uBXVqaWB2iSS7xD8t NaLzKrI6WEccK387CyEqjSGdIdd gY69rC5IukAT+DFYhFon6AEEfoR utVL7lJ9BzBEPcvmjegOWa aFlpQB7jLSUoprjcVLRtiD7wBND pY0z5PdVlOsD6OMfjD7PiRQRswd svEp20kI7qMoNfTsX2VLnj R8TrwvS5CRVpdICcMFfkWJZ4Z57 fo6U7XJWaANUdNLS2hTU0oS0daQ lnbjogbGVmdDsgdmVydGlj VIukTDgzM941NIArpGdjTwKfMAq uZyBEYXRlOiAgMTIvMTMvMjAyMz wvdGQ+CQAzWFE0yAskWWWj mWOoKEcoLr4pnCsgzPhpZE0iOID ambkeALUbeB7pDNRzdVQabIejLX 9cRWVxwqmkd600IrAcKTR3 DCRirYHfP3SmjO7hAmTqXBYuXIV gY6NlwIRcURhaW242LWmqAzK9RJ IopbYtP7GhZPMagXcgQfL0 n7K2Wx5Qc7AermfiH0LxqOXeLzK bGkxiQOt4K2LbOvjyuUK+PC90YW WcSM88RAe6WAN5fKqrJMuc UTRlN2PqaA3kJrKbNRAgCWLnBkc +PHRhYmxlIHdpZHRoPScxMDAlJy WdwCmzSJ5oCh7gWAEqEOZu lOhlkRTwEsKen9saSTUoESmcZE3 ufAoeT4ZkuKV1SQAfu7t8Qp20L4 2tC7HtlSN+DBIybEW1bWI0 hH8rFlQgVoW7JMjgC127SuLtdHI gNozep3gvn7rdiLy7TaQ4UOGiel NhlKdpZJO7k4QkKj92G17l IHdpZHRoPSIxNSUiIHZhbGlnbj0 lyR0uPu7+POZstSQ5sBX3eH0fKq LfYcF0GLmjH285ClYxeYVz Fcomc7blm2giiOi8TnRpYVFuiaF ogUrdPLF9z3OlVg14F8UmzQsza3 JtXhy6tk62iYHrw5W6oWZ6 K2FpZLPqggugoMQgaAdnLW7eQLM qslhgSFTylL9tBLKhW1w7DxUcLa Z0NOxbN4MgbrE5QKGimUNm UODmvLVFcT4evortw6fyntpqGfX oAFLoBHg9FLt0RUVurXlsDdUuSN C3ZaG2FBR8wWBvzE0tzSiv scbweJ9wLdx+OSZ1iHYxoTNCWT7 lOjwvdGQ+ZDGdLGQ2kZlvGLmiIO RnkO1nWHSbQ1w7SgLnFyH1 WTwgQ7FkbpH0SWZiyZRlBIOwiUB WnI5vkqsnf6kczhlcAjTtHHUhIE q8JKu9WMQzhNsqGvKaDXV2 OrP0XHN9zIBizN5fxImwcjgteG3 wOyc+TegwnGebLGS6NXg9E0JwRw u7LEJliEnfGY0feHYqDXae Ag0hrSmhhClaWE9lBHIkxzyml49 9FkUog5ekOZTlhZHgENstNBS7F4 2je6Y5WPPaEQExPPK4rYP7 zF8dcZbuudyinROlgJyuquTgoXt nFChmFOoeO888OOSpfXayXlYvEK p3T5TlRjk6BWGihXggNA5d wPYyLKvsSs7llUkqdKtkWR7bJDL hzfbak173BsQwb3poALPexWIrDN ovWSL0G82ck8B0TPTmMORc FBE2jCW8pZ4ijNxjnytdfJNhsMr asgGxcIzeRZypKXnhK610KHYrfE ajPmEijSb1E9PdPof8RYMi tXebJS7tvMGmYSpfPg3dqZjhzVt yJL2qGCLtwelif590PkMnh4haUC RgwLKgPZkiPES3P16an9R9 YFDtEGDpPJK8jZO5yI6qaStvile gbGVmdDsgdmVydGljYWwtYWxpZ2 46IHRvcDsnPlBhdGllbnQg EUamUUt2U9VzRakldJR+FM61MQX kNL19vIGyrKEjw5ooaGr2WfLiYK IiFDW0tNiaVIxcs9EqIAJd V00tgYKsh8M0FPPzcOrqgGYhDmD ehZQ8wH9yZGqmfpqya0aabwfiDk lkk7jqld99jP18J78oOCnt KPZnWPOvPRNuEZDllOxuxb5vrR6 wIi8+WMCicEM9iRP4dX3rBIOcLv E7IImuZ491IaIpxKYdLpvt a3ygp4kptCs9GsB6OIDekqUnkMu kIJF4k7OsZh31F12gLRwaYYXpMR HlIJUfDFMlnAslmw0rzU6c Ii8+LKSxlLB1qLC0kL9oPcLsIcU 1QCsgG234UgCsjEHaQpxwC64bO3 JvdXA+BTStOvb8LEIyzHtr GX2ygOKfFAxcZi3bJMJ3DvHhHuU lAXleQ7ZeVPAnbbyodmsbpPO8SY OwZZQouO61Ya7rgIxdMYTc fOAWoZ6sfyeug8bpnlqaKlZjRWY fLCx7AQn0PECjdImgSaPuGOS8Qi J3SOC2zIHkfN2zxKoizzqj bQ0aD2WkTHXmgbkgAt43wE1fKfH qUfN5DXviHqj+TVVMTEVOUywgUk BEDAIYGMOGYZkRSsE5K4Pj Yxe7LMFszOitTW1xuLWdSWbsKg3 kxKxsjLdhNZ2zDLYjnskwTWWldD 1fGEVoaEGghMxcGI0wTMNo pgapu006LrUsNWR8ZQKwrDBfE3K puE0zAcCuNIQvHFWyL7ZckXMySB xzK329TEtuRvL8KOQcvcAb Q3NoEWHneVxeRqN5q0E5Cz1yRA0 yGq5jRBs3GK76PD45wMWer1K9tA B8C7AiLIXgsjkvxmfovAE2 RUQyQGSltQ66oXSzGXxoZr6uy6I 6v604QTAgWALtkU71Uc2wrUzrCJ HbnQBTzO1itnvwu0vclcot MrNnVALqMNg6TIu2CDRrpUrvSiP iOTJ1WzK8ISC2eYXygK4sqObxmv zcyZ7uTdm+MzcgWWVhcnM8 D5AjTfe4CVEltKbtTN2ysDKhHRs eTc2zqVvopSokLJ0eHTDgbybqCS HcsL7eYLJnhKQoeQnfUV0l GVMftxmts957WgMqCCC0JBChkKS wT4UpuE8bGtTaDKAbRDLuP3DvvQ MrAQshG320JJsjIaK5SIPx iqPlQ4CiBPIzfRdvZkD4l7D4Qd7 WCJ0TLEP6H7YvAqn1PBIdkXxrRE 1sjHXbVTmfQk5irIpyuLps IN1yLWUseshyXOZnoV6hUQPriNB deJqfML9tWWDexjyaz322OzQnQA E7AYRglJThQ8PssA3sLlEn TMIgZEWbR7VzvNNnZZhlN380ZUc oDiH6MNNfxdIkJ0ElBFFxcNvxHv F2i2J7Lx1DHNG1vtYqfgis Z2B6gFC8zJVtmZodbCT+FM96lg2 9F4VpBlcaFqf2TASbHDB5uYU2fE 9eOUCkJBgud9N6lFK3P1Ra itYzup3zo0yeTDTqPQzxI46oxPK yj9G7WWEynUF0BRJviJyzQuNgmS 93Oyc+JPLsaDfoi9AwQrbq a5mks5uroAx6VfCuADOmokXpkBm oSCL7f4CaDh50N39lKYtvDINwLS KwIGRuZMWdwLafoe2llY4v Ii8+UCGquUW1cPC6uB4qQpVjHiZ 2VTnmT914VjBroRTgPakux5nvd7 pltVx1SyBpIBFqxaLuhYay HAG8a8ZmLr30T8IyeLiqs0NfMfl 1gf25jQAkw0P0mGZ2A5MyYCUhpp jgyORsdIrlBB4oPVPnjvqk GKPyoG6uJJBrS8d5DpTxKjR6ZKq eX8RjgcD2HLZhmRCsRQBmeDIMrO 1byxseg5rykklyJiDzYTCg XLn5DSh3FSFrwTwoNnMxILX4QeG 7OGG7tEThwQ8loHpszuvvcB1gXs c+BHt7o3aheAEgLS8zaOM6 EW65JS32nMYct0I6vCW6V9RcRSU ydcvguycebOH8XLYaBZZdjL14Qw 6ziGwqOx6sOUDvAOJ3VBOm wEVuC4FlnK8qNvYsDOTuKAYwM5M ciQXsCTtuG273PXcjOgG5RTVliv PsO4TvQGCkdIhyUrZ1y9B2 Bm4ZSC46IE60DE56lJMpo8Q8oGO 5Y6AqKJOapqrnmzpkwNC0MGLqHB JcpV99Mp4niTywSv8wSCBp RIN9YCJkmQPsB2YpwJ1zNyLnSQS jFNSpO1RtqYLgKKxfG251VTnaVs M2HKLxhkAvV2RwNWMiyJty LvR4l3V2Aj4NOs84IF23HC69iJQ rz8R5zWT1Q5CoBHJfxbragrjwsT F2BXOyJYFbnX89Or4unShe Mu9zZCVxVAV0XLTcoYYtA5MlgU5 lLoGxSQDjNNZgP2LejOHsRNxiK7 62USmtXzA0ATJeupXlY6Bd OKMeqCzqWmB2x4U7Hf8AMXtncfi 0Z9LiGsbjjEY+EI93NDByFV71fL ZsbBQrp2yibBf5NdVoHDPc IHN (more content not included)... Normal [facility] ED Clinical Summaryon 2022 ED Clinical Summary [facility] ? Urgent Care [address] [place] [id number] Clinical Summary PERSON INFORMATION Name: MICHAEL RAMON Age: 37 Years Sex: FEMALE : 1985 MRN: Acct#: Visit Reason: Medical screening exam; [facility] F/U - RIGHT FOOT INJURY Arrival: 02/19/2023 12:55:41 Discharge: 02/19/2023 13:43:00 LOS: 000 00:48 Check In: 02/19/2023 12:55:41 Checkout: 02/19/2023 13:43:00 Address: [address] [place] [id number] PCP: Thu Baldwin DO PROVIDER INFORMATION Provider Role Assigned Unassigned Mati Bell PA-C ED PA 02/19/2023 13:00:25 Valerie Clay MA ED Nurse 02/19/2023 13:03:24 VITALS INFORMATION Vital Sign Triage Latest Temperature Tympanic Temperature Temporal Artery Pulse Rate O2 Sat 98 % 98 % Respiratory Rate Blood Pressure /83 mmHg /83 mmHg MEDICAL INFORMATION Medications Given: Allergy Information: No known allergies PHYSICIAN DOCUMENTATION DISCHARGE INFORMATION: Discharge Disposition: Home Discharge Location: Home PATIENT EDUCATION INFORMATION Instructions: Follow-Up: With: Address: When: Return to this practice Comments: Apr 24 at NOON DIAGNOSIS: Contusion of right foot; Hallux rigidus Patient Understands: Yes - Patient/family/caregiver verbalizes understanding of instructions given Comment: Normal [facility] ED Patient Summaryon 023 ED Patient Summary [facility] ? Urgent Care [address] [place] [address] PATIENT DISCHARGE INSTRUCTIONS Patient Information Name: MICHAEL RAMON Age: 37 Years Date of : 1985 Reason For Visit: Medical screening exam; [facility] F/U - RIGHT FOOT INJURY Arrival Time: 02/19/2023 12:55:41 Primary Care Physician: Thu Baldwin DO Attending Physician: Mati Bell PA-C Comment: Patient Education With: Address: When: Return to this practice Comments: Apr 24 at NOON Medication Information: The exam and treatment you received today in the [facility] Emergency Department were for an urgent problem and are not intended as complete care. It is important for you to follow up with a doctor, nurse practitioner, or physician?s trust administrative assistant for ongoing care. If your symptoms become worse or you do not improve as expected and you are unable to reach your usual health care provider, you should return to the Emergency Department, we are available 24 hours a day. For those patients who have received Radiology results, the interpretation of your X-ray as given to you by our Emergency Department physician is only a preliminary report. The Radiologist will review your films and if there is a change in the diagnosis you will be notified by phone. Please make sure you have provided a working phone number so we can reach you if necessary. In the event that you had a lab culture while you were a patient in the Emergency Department, you will be notified by phone if there is a need to change your antibiotic. Please make sure you have provided a working phone number so we can reach you if necessary. [facility] Emergency Department has provided you with a complete list of medications post discharge. Please inform your diamond powder technician/provider of your visit and for further instruction on these medications. Any specific questions regarding your chronic medications and dosages should be discussed with your primary care physician(s) and/or pharmacist. Additional medications on your home medication list not specifically addressed. Please contact the ordering physician if you have questions about these medications. baclofen (baclofen 10 mg oral tablet) 1 tab(s) Oral (given by mouth) At bedtime. Refills: 2. buPROPion (buPROPion 150 mg/24 hours (XL) oral tablet, extended release) 1 tab(s) Oral (given by mouth) every 24 hours. TAKE 1 TABLET BY MOUTH ONCE DAILY IN THE MORNING. DO NOT CRUSH, CHEW, OR SPLIT. cetirizine (ZyrTEC 10 mg oral tablet) 1 tab(s) Oral (given by mouth) every day. diclofenac (diclofenac sodium 50 mg oral delayed release tablet) 1 tab(s) Oral (given by mouth) 2 times a day. Refills: 0. melatonin (melatonin 3 mg oral tablet) 1 tab(s) Oral (given by mouth) once a day (at bedtime) as needed for insomnia. metFORMIN (metFORMIN 500 mg oral tablet) 1 tab(s) Oral (given by mouth) every day. TAKE 1 TABLET BY MOUTH IN THE MORNING WITH MEALS. pregabalin (Lyrica 50 mg oral capsule) 1 cap(s) Oral (given by mouth) once a day (in the evening). Refills: 0. tirzepatide (Mounjaro 2.5 mg/0.5 mL subcutaneous solution) 2.5 Milligram Subcutaneous (under the skin) every week. Visit Information Visit Diagnosis: Diagnoses This Visit Contusion of right foot (S90.31XA) Hallux rigidus (M20.20) Medical screening exam ([id number]) If you received any narcotics, sedation, or any other medication that causes drowsiness for the next 24 hours, unless otherwise directed: ? Do not drive a car. ? Do not operate machinery such as power tools, lawn mowers, drills, sewing machines, or stoves ? Avoid alcoholic beverages and drugs for allergies, nerves, or sleep ? Do not make important personal or business decisions or sign any legal documents Reason for Visit: Medical Screening Exam. [facility] F/U. Allergies: Substance Reaction Symptoms Type Comments No known allergies Drug Vital Signs: Vitals and Measurements this Visit (last charted value for your 02/19/2023 visit) Vital Signs This Visit Temperature Oral (F): 98.1 DegF Temperature Tympanic: 36.7 DegC Peripheral Pulse Rate: 76 bpm Systolic Blood Pressure: 133 mmHg Diastolic Blood Pressure: 83 mmHg SpO2: 98 % Oxygen Therapy: Room air Blood Pressure Method: Automatic Measurements This Visit Height/Length Measured: 162.56 cm Weight Measured: 172.82 kg Weight Dosin.820 kg Body Mass Index: 65.4 kg/m2 BSA Measured: 2.79 m2 Problems List: Problem Onset Comments Depression Lumbar radiculitis Obesity Tobacco user Major Tests and Procedures: The following procedures and tests were performed during your ED visit. Laboratory Radiology Cardiology Viruses or Bacteria What?s got you sick? Antibiotics only treat bacterial infections. Viral illnesses cannot be treated with antibiotics. When an antibiotic is not prescribed, ask your healthcare professional for tips on how to (more content not included)... [facility] Urgent Care Note- Provideron 02-19-2023 Urgent Care Note- Provider Patient: MICHAEL RAMON Age: 37 years Sex: FEMALE : 1985 Associated Diagnoses: Contusion of right foot; Hallux rigidus Author: Mati Bell PA-C Basic Information Additional information: Chief Complaint from Nursing Triage Note : Chief Complaint 02/19/2023 13:13 EST Chief Complaint Medical Screening Exam. [facility] F/U. . History of Present Illness OCCUPATIONAL HEALTH FOLLOW-UP Date of injury: 08/26/2019 Claim #: [id number] Employer: [employer] Mechanism of Injury: She was moving boxes of celery when one fell onto the top of her right foot. 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 On 08/26/19 she was moving boxes of celery when a box fell off of the cart and landed on the top of her right foot. She was initially on light duty per [employer]'s telehealth visit. When she was not getting better she was referred here. X-ray was found to be non acute on 08/30/19, but she continued with pain and swelling and inability to walk/stand for an entire shift in normal shoes. She was placed in a CAM Boot, MRI was performed which showed faint patchy edema noted in the plantar aspect of the 1st metatarsal head with no apparent OCD, small dorsal osteophyte to the dorsal aspect of the first MT with an in tact Lisfranc. She started following with podiatry who requested additional condition of hallux rigidis and when she failed conservative treatment they recommended a right first metatarsal phalangeal joint arthrotomy with possible cheilectomy. This was denied, but she opted to proceed with surgery regardless. Since that time she has won some hearings and her care is being covered under the claim. Right first metatarsal joint fusion was July of 2020. She was compliant with the PT that was approved and allowed through the claim, but continued with daily pain, requiring frequent OTC pain relievers and Ibuprofen. She still did not tolerate a shoe and after repeat CT scan of the foot, the request to remove the hardware was initiated. This was approved and performed on 11/05/21 and seems relatively successful at this point in time. She feels the toe is about 90% improved at this point in time. She is continuing with PT. She arrives in a loosely fitting tennis shoe today, that she now states she can tolerate intermittently throughout the day. She sees podiatry again next week. Her course has been complicated by some back pain for which she is seeing pain management for. She had a successful injection prior to and has had great relief of pain. She relates the back pain as being related to her inability to bear full weight on the right foot, but treatment is being pursued outside of the claim. She is very deconditioned from being off and sedentary throughout all of this. We requested work conditioning, which was finally allowed, but not tolerated very well by the patient. PT has exacerbated her back. She completed an FCE on 01/11/23 and I believe voc rehab has been approved, but she states no one has reached out to her to start this yet. FCE demonstrated she will not be able to go back to her heavy job that she had previously. She cannot climb ladders, kneel or crawl, she has restricted standing/walking/stairs/squ atting/kneeling, and can perform seated work without restriction and upper extremity work without restriction. See scanned document. She denies fevers, chills or malaise. No other joint pains or myalgias. No numbness, tingling or weakness. No incontinence. No skin rashes, ecchymosis or abrasions. Healed surgical scar. No previous foot injuries. There are no other associated symptoms. Nothing else makes the symptoms better or worse. Symptoms are described as sudden onset, moderate in nature and partially improved. Health Status Allergies: Allergic Reactions (Selected) No known allergies. Medications: (Selected) Prescriptions Prescribed Lyrica 50 mg oral capsule: 50 mg = 1 cap(s), PO, qPM, 30 cap(s), 0 Refill(s) baclofen 10 mg oral tablet: 10 mg = 1 tab(s), PO, HS, 30 tab(s), 2 Refill(s) diclofenac sodium 50 mg oral delayed release tablet: 50 mg = 1 tab(s), PO, BID, 60 tab(s), 0 Refill(s) Documented Medications Documented Mounjaro 2.5 mg/0.5 mL subcutaneous solution: 2.5 mg, SubQ, qWeek, 0 Refill(s) ZyrTEC 10 mg oral tablet: 10 mg = 1 tab(s), PO, Daily buPROPion 150 mg/24 hours (XL) oral tablet, extended release: 150 mg = 1 tab(s), PO, q24hr (int), TAKE 1 TABLET BY MOUTH ONCE DAILY IN THE MORNING. DO NOT CRUSH, CHEW, OR SPLIT melatonin 3 mg oral tablet: 3 mg = 1 tab(s), PO, Once a day (at bedtime), PRN: for insomnia, 60 tab(s), 0 Refill(s) metFORMIN 500 mg oral tablet: 500 mg = 1 tab(s), PO, Daily, TAKE 1 TABLET BY MOUTH IN THE MORNING WITH MEALS. Past Medical/ Family/ Social History Medical history: Resolved Lower back pain ([id number]): Resolved.. Surgical history: Lumbar epidural steroid injection ([id number]) on more content not included)... Normal [facility] [place] 023 Urgent Care Record [facility] ? Urgent Care [address] [place], [place] [id number] PATIENT DISCHARGE INSTRUCTIONS Patient Information Name: MICHAEL RAMON Age: 37 Years Date of : 1985 Reason For Visit: Medical screening exam; [facility] F/U - RIGHT FOOT INJURY Arrival Time: 02/19/2023 12:55:41 Primary Care Physician: Thu Baldwin DO Attending Physician: Mati Bell PA-C Comment: Visit Diagnosis: Diagnoses This Visit Contusion of right foot (S90.31XA) Hallux rigidus (M20.20) Medical screening exam ([id number]) If you received any narcotics, sedation, or any other medication that causes drowsiness for the next 24 hours, unless otherwise directed: ? Do not drive a car. ? Do not operate machinery such as power tools, lawn mowers, drills, sewing machines, or stoves ? Avoid alcoholic beverages and drugs for allergies, nerves, or sleep ? Do not make important personal or business decisions or sign any legal documents With: Address: When: Return to this practice Comments: Apr 24 at NOON Medication Information: The exam and treatment you received today in the [facility] were for an urgent problem and are not intended as complete care. It is important for you to follow up with a doctor, nurse practitioner, or physician?s trust administrative assistant for ongoing care. If your symptoms become worse or you do not improve as expected and you are unable to reach your usual health care provider, you should return to the Emergency Department, we are available 24 hours a day. For those patients who have received Radiology results, the interpretation of your X-ray as given to you by our Urgent Care physician is only a preliminary report. The Radiologist will review your films and if there is a change in the diagnosis you will be notified by phone. Please make sure you have provided a working phone number so we can reach you if necessary. In the event that you had a lab culture while you were a patient in the Urgent Care, you will be notified by phone if there is a need to change your antibiotic. Please make sure you have provided a working phone number so we can reach you if necessary. [facility] has provided you with a complete list of medications post discharge. Please inform your diamond powder technician/provider of your visit and for further instruction on these medications. Any specific questions regarding your chronic medications and dosages should be discussed with your primary care physician(s) and/or pharmacist. Additional medications on your home medication list not specifically addressed. Please contact the ordering physician if you have questions about these medications. baclofen (baclofen 10 mg oral tablet) 1 tab(s) Oral (given by mouth) At bedtime. Refills: 2. buPROPion (buPROPion 150 mg/24 hours (XL) oral tablet, extended release) 1 tab(s) Oral (given by mouth) every 24 hours. TAKE 1 TABLET BY MOUTH ONCE DAILY IN THE MORNING. DO NOT CRUSH, CHEW, OR SPLIT. cetirizine (ZyrTEC 10 mg oral tablet) 1 tab(s) Oral (given by mouth) every day. diclofenac (diclofenac sodium 50 mg oral delayed release tablet) 1 tab(s) Oral (given by mouth) 2 times a day. Refills: 0. melatonin (melatonin 3 mg oral tablet) 1 tab(s) Oral (given by mouth) once a day (at bedtime) as needed for insomnia. metFORMIN (metFORMIN 500 mg oral tablet) 1 tab(s) Oral (given by mouth) every day. TAKE 1 TABLET BY MOUTH IN THE MORNING WITH MEALS. pregabalin (Lyrica 50 mg oral capsule) 1 cap(s) Oral (given by mouth) once a day (in the evening). Refills: 0. tirzepatide (Mounjaro 2.5 mg/0.5 mL subcutaneous solution) 2.5 Milligram Subcutaneous (under the skin) every week. Visit Information Allergies: Substance Reaction Symptoms Type Comments No known allergies Drug Vital Signs: Vitals and Measurements this Visit (last charted value for your 02/19/2023 visit) Vital Signs This Visit Temperature Oral (F): 98.1 DegF Temperature Tympanic: 36.7 DegC Peripheral Pulse Rate: 76 bpm Systolic Blood Pressure: 133 mmHg Diastolic Blood Pressure: 83 mmHg SpO2: 98 % Oxygen Therapy: Room air Blood Pressure Method: Automatic Measurements This Visit Height/Length Measured: 162.56 cm Weight Measured: 172.82 kg Weight Dosin.820 kg Body Mass Index: 65.4 kg/m2 BSA Measured: 2.79 m2 Problems List: Problem Onset Comments Depression Lumbar radiculitis Obesity Tobacco user Patient Education Viruses or Bacteria What?s got you sick? Antibiotics only treat bacterial infections. Viral illnesses cannot be treated with antibiotics. When an antibiotic is not prescribed, ask your healthcare professional for tips on how to relieve symptoms and feel better. Usual Cause Illness Viruses Bacteria Antibiotic Needed Cold/Runny Nose NO Bronchitis/Chest Cold (in otherwise healthy children and adults) NO Whooping Cough Yes Flu NO Strep Throat (more content not included)... [facility] Coding Summaryon 01-28-2023 Coding Summary HTMLBase 64 GqbwbfdpKTm4cAb+PGhlYWQ+PE1 UIGXxF55hfGCziT5jF1WYNMhWWj zfEQDFCEzBQxNaybLpPY6xeANnK XJu IC8+FF3qTTAqImidqSDos2O5hTG 4T87idk0zOGjmfUC3PCGiQsNqvt yap2jgrUu0SDrhTejeMoJs VMGkrO33VUZ8kT74Cm28lWItkRR um0ldrTd5WmYuHORnWXJ6iLftIM woy5QzJPUcF33jzCLqa8K7 RVCqzUjjxHOfWnXquFS3xZ4hVFg pzjdvn5vagiavHnv6zi34mTDar3 Q5fFB4W7IqzzD5WUJemTKw OirefNMViU2avpprp2ziajakNkL sPMQyGAs1GYv4VKSmuRmzAmFgYY 54YOU7AULsffFaV7WmGJTm kNgqUsO2k6Z7Wf6HA5HNYblaW9V NTUFSWTwvdGQ+NX29nm42M2CiDm hjPem0JZXiKUK9jET4kN7x NAItMDukv4J5wMQ0H2NthxXmyz1 vp3xrJUOiCYlaF74uqMDxu2A2LI KgtKM0YYVvkEusOkSlmD54 Oyc+XEDcwYtdi1ZbRqtab3cku7s jxJb3MpnjKALyibAftCwcEIV5h9 AdZk5jUXJvyKA8dLA1kC8i YdTjOwR5WFniJ862DdXptLSjPjz yA91uE1NcaIM+XNKlZhx6KRVthD enZN3cN4OxRNCczowmhYBk gKjaBX5jGLAuxtswMWAppF1zHKL tC0d9UsSqDzO9FXjwX6WbYFXtpc itUa42iB9zRkIuRaF1XNac E1ZobcA8PMHpdEZaBCsgDLI8T55 kc8A7CGSwKTUvCLC1yMI2kH3orX lnbjogbGVmdDsgdmVydGlj EShlYYbhX702XXTnyQpoFkNqWYk uZyBEYXRlOiAgMTEvMjEvMjAyMz wvdGQ+SEPwSOS4aNqyQSSj zPWuOSueQn3trPjdcJapNL3kNTM xdlkdTMVhpV4tTDUngQExnWttMZ 4yLMYcoflfy048YhVdHFQ4 HOKocPSiQ7OoqW6jUnYjOCMpSZJ iN0HxeFFkBUbsS916EEwpEsL4GK OkpyYtM1WaKYDusAtxOuE3 t2R0Ky5Xd3KnwfbeS2MgcZTfIrC pEcgdKYd2N8ThXgadeRC+PC90YW HrJE51JKy2YYR6lQjgAZji SSKbW0IdlH3sFiZeNBSrEYItMvx +PHRhYmxlIHdpZHRoPScxMDAlJy MtmVpdPD3jOv5vQEQeYPQm vMburFIdEmNpm0clKYQcEKjmWO1 idIgvW6CyaXC3BIRbr3d9Us30J2 6hF5LosRO+GDWwlAO5qCV0 eG5dFiIzTsW9EVvrJ431GcUjhMV sKsgvh6mmz3epmEk9BvR4UCKkmb XfaIpqHUK7d1QyUp81V58k IHdpZHRoPSIxNSUiIHZhbGlnbj0 nlB1rKb4+QGZlnVU4xLP1fI0cGc CmDmX5NDtaH120YcCgjGYa Vxzfg9vfy7truPr6UgPfITNjumO ixBwlDIJ1c2QzSz28T3HprVlxf0 QaLuf1mz42dGJug4Z4iBB7 F0LoWXLrwlygmKLxyXrcST3pDJT evdmaITNccD8gLFIuZ9j2RdAwPb X3DPiuI5JgcqI7HKResUHb QBJeaCMHcV0gsddyu3hrzfkmZrH lADFeZEn7UTy8RBZcsUooCrUnQG E9OmZ9LPI4vBVwsJ2trMdu ltzvzU3sXsm+GKZ9pZJpjFPTJF1 lOjwvdGQ+SNQzOBN0rQujDOrlDU VucA9hLNWuH4i6VcVkMcB8 IFjsA3DqnsX8SPDocHAnINJafVQ CpB6jshros8qaneygPaWpYJQnJG j5DEe9LRSgdTmnRaQgUJM8 ZtI6WJY1kTZkrA4cvYiuaitwrQ0 wOyc+TpikxZkdESC6ZLs0D4VlIw q3PUXzlEjmXQ4ydNDxGZps Qx1lmYzwwAkwYX7qZYNsccmwi16 5AdEuk2qzFHFedATaGCdhHIA9J3 5ll3M4TWZgEMGdAZF8hQC2 aF1crYtowwrweAEibMpqquVzjSr nZJniLFlmA672YWGlxZozVpHfFI e5Q0XjIef8SLLkzCndPV3n oBAjHNspTq7teQhuvObkZL0dUBT hpaapa428GxEaw3bnETZmnDAkHN ynMVS1D15dl0E4UHUjXTNp TKJ6bMP1hI4ypAlzaytgfENuoJd cobZthMrsLPpjCZzgI279XOTzvY esTeOzaWu2B3DoVya0XNLv wHvnWI9gyUAdEBdqSy6sxIzdaYm wLL0qLDOrkibww410YoKqu7doZQ AuaBNjUEwvNER7O46yh2A9 CUBsHHVqFGE6uHA8vS3tjNsdzkq gbGVmdDsgdmVydGljYWwtYWxpZ2 46IHRvcDsnPlBhdGllbnQg QVulUQp5T4CvEnsgzSZ+QJ24YDF wYK21qYGzuMMmw9qdiCl6ClZiJP OgUIS8eNeiGKfqb7DmGGFi E66jxIPun6N5BDDjoKgyvOOmLuH rxZO0uO2oTBocsqmbs9nvstvcEk cql1ryqc02eI36V13yDQpa CCPzASXmDACeFCWbuGbwmz9kaK3 wIi8+NFPgyNY9eRI7eD7aPUErWo R3UJmjG409JwJlzETqBxem m3bmg3cjlIc2RtV6TUNrziIeqUf uLNV9q6FlLm62P28vUImmBJWgAK JcNIIvTHLvdSwgru7jfS9c Ii8+PEJqxJD9oMB8uW4ePbKpJxF 5EGyzA325JnJuoGNrMojzY33aJ2 JvdXA+FQAmBhg1YTJqiLre XY8goAMzXCgsRn2cWMV1QpCwCjA wDXntI7BhYXTghtiwqmgmwDB8EL YqZUMgeO60Tu8ogHhyPSDs yXWRqY7jdiuje3ttoqooRxIdZIP nGMn0FOd3CCGyfYhxKvIxKJV3Jh N9HLL5jYNyuM1aaUpepeao mK6qG9SjZWWawalzQc44cZ7iVvG iNiU2LLxgEbj+TVVMTEVOUywgUk BGSVYFISJHSNsCWlD6B7Md Qsd5BSArdPdqDY1wkJLzXBasGr6 wxRxblZnsVN8rBGMlyierBNHrvP 4xJCQiqBHbqRfpQA0oDWBg pdvyg414PrVlOYX9CHZtcLVrO8U uyH0qVyItODUeYFFbK8ResGYzQJ yxC418BGjoZwA7XJCuoaXx D8DgPUEinOysFeM2r8G7Hl5lFC7 qCr6sJQp9SX53VT48gFVxx8U9yV L3D8CnDWArqoagfvrnzXE8 VBGvJGJemQ35oEBxIIuoMm3qf5F 8a236BZSkVAQywJ53Ws1wnGpyPM ZkhTOSgA4orakod6nylbzw IlMiRZPeOIb0LKd6ZNDdhSxrJrM aIWB1UqJ8ORQ5vPFzzE9nzLbhjs euhW3sLrd+MzcgWWVhcnM8 J8EpJtf3WSEqkNmmHD5cuYNkXAk tMo5arZtbgWhlFC0rLSZquudjXM KomY3dEETqpSFysTpdRX4w KPQcpbfrr764KgYdQGD5EBWwwAP nG6IxnY1yZjDvITAzODFiN7DfvW IzMIvqK954VCcrLyM8FIZo awJiZ6IkDFImqZtrKyF2i3I4Rr5 LPF5CPXF7S4CfLub3QSEtxRrkYM 4hhICkVIkhGs4dbXwtfVun ZA1fKOTkafgjTMFaoF7jORSrfAX mkBkdVD9zCJYpakgwh502NlLrHZ Q3BCWfcKPcF4FmaL1vZcGy RUQvBSGjS4WwxRAxXIncN296AEn jQpY1XNWtkaMbL2TkDSWcwFwaTq V7e1S6Lj1LYDjjuVF+PC90 zc56P1RaVrsoLjm3IFGxRXH7gAM 7pH2gFNEkAYaef2N2cQO3I7Xjco Akwo8ix5eqQVHuDPdxI48m hDFku8J0JILrcKQ9MRUjsCfxRoR toN14Iuo+PTDqySscq2EdQcain4 tzq1crkGz2VeAvGEAgpkPs uAgnJVY8q6CpDk93E41iCRvtJSF bOFNwCIOqQVGkfUdrad3mfC0hAa 8+NWNtaHT4bNW5iR7dDuKk AlN9LLghX111QbRuiTOaJrktt9h zr9htzJd1ZmGjGIBvdzFedQvsEI K8e0AbNb33N0HwiBdss3Oz Vpm1la39oZBnc8K5bLK5Z4GkLCB qyhkraQUegVzjOA7kRIBkjqeiAQ WiqV2hBWNlB7d6ZpEaMcT5 DXvgS6EitkY3VNBnlGAxCUScsAD ChY8wepppm7xctvauQwGmVWDlPF y6EMg6XBRfvOnsXyAnQTF6 MdQ8UYK0wWOjvA0tlCdvarjjpR6 wOyc+VRp8s9ndoRFjDG5vwSB6II 21LV35rHYea8D0jDM1S9Ve EMKdxnggeapldQA1SKJaBLVgvE8 6Il6joMqfIf7wOPFaZBB0XUSrwE MzN2QtzV4yKyLaSCRyOILo D6EgxPRsHXkfN615BCfpWvY8JDV afqCeL0IjBOQhpYibLvY5f8B6Vj 0DCA59TX96YB49fPXte3C2 gIM5X6OfTYGnrjcjuchvpYV9OWV oMBVkyT85Mr1gzOeaHb9fJXSoTX M4JAXafRGlB6YuoT5rFqOl ZJCnRCLiN9WnpFWdQYipM391HTi mKsP1JDQhrjGjU4HoTAZheJhkMn O0r1U2Uo5KFn60FU05AE16 bLQva4I7cWM2Y2WjYVCdecocwag tmUT8HHRiFTKuzM07Jd7nwJveKv 2nUSRrCXP6UIPzwYZyG1Vz xP8cXpCvALNhIHHoC8ZhsZCxIJs lE539IYmdQcS8SGNogrGpY2OuPR XolXtqNeU4h7G3Pv7JLFcd obb0Q5JwDjdanPX+LE82OQFtGO9 0gJCbfNHdo0uoqUw0FvBzOLKrCX K3nEyuGUpjl4ZkRJQlT01t bGF (more content not included)... [facility] Coding Summary HTMLBase 64 TgmzxmunLDu1jCk+PGhlYWQ+PE1 LTCVqT06owGHjyE2sH5FJLYwZBv wiJMVKGTsHKlSrisUoTJ3zmEWrL XJu IC8+FJ2aLVWqLvpqlWMga0P4vBP 1C72ezr4bZFlivIH9AWUqEgTeus lka7sicCh1XXifZgozAbDw UXBtxI31LID0yT61Bx40bDNpzSZ oo7uqkBr2YbZhPOUnRJR5kMgxQN aur3EiQAFgH82dvSGvg3H4 FWLhhFzbfHQsXaDldKA9iZ1fZTp yzwrft5ycyoayTgy8fy67xVPep9 J6jMA9O6GjnxU2JULxfPRp CnmziHFJpR7wtciyp7htfpepWqV lDYHiNEw8UKm3WNVwbUcwDhDnGZ 08UQO7QWGoxrRgN1JaMFNu hZkiOaU2r9T5Jy2WQ2MJVqvjO5A NTUFSWTwvdGQ+UW19rn07X2IzJz rkRhu7ZSUiJXT0oHN0wQ7t ECKgCSjdl4E2xTO8S2QwhjSncb2 hs5ngMQXlJOomT23nvEOuo4K7TH TuhDO5ETAdxNedYzSjdR16 Oyc+UQCocRvdq9IwFyphj3ajc6n xjOx6JzrhILLtoeXfoIwcGLK7m0 UhFc3rBMRyxSS8rZV6qE5b JzInYdC7DPuhF021ZwTkrORwAjw eE08nH5RnnYO+EBCzMhc1HBWzaA psFP9tG8ZvFHEzircgzUNn pOykVE6uHONezhsuTGPlsD3oNLV wC8b1CgOeIgA7UOleE7FzBTLpjb jxJa96xP1yBjQbSfY3OSpz A4AamrN6HPVosMDzKEsrRAX4N23 zv8M8ICDoUKMqRRW8nVT9aC5kjV lnbjogbGVmdDsgdmVydGlj SLspCFotK718CMKfiFgzWmRoGKw uZyBEYXRlOiAgMTEvMjEvMjAyMz wvdGQ+OKZqPBI2cZxsHGDi aTRySNdqKk1jqLbxbRihBU2zJBK sycujHZAbjN6lBIGsqMJolKqiAJ 7qQFEgvkuij774OtQrJMS5 FFOosEImB5CjiG5vEjJtIDPxXHL mW4ZadNGjUJkaS673FExkNhU2LQ EkfeNcM5QdEUTwjZbeGsG7 e3Y9Vl3Qg9NjlfexX9XxzVPdXrU dTjxbZTm9U4YuJiawsJY+PC90YW PgFQ70GTq9HRF1hQsaQGos OHEnP9CwtL0zOcXaHQJvTQHdEuk +PHRhYmxlIHdpZHRoPScxMDAlJy NkpLapKL8zJa0hYKLxLFFl hMencONcWsLta5yoYEOiJNnhWS7 hbJabN6UzoPV8LGGtb2v9Kl58A2 7pB8VpnXO+FAUczNE8vLY9 zC5jPfKvNaV2FRffC979OdHwoRA fOjhki2amh0phgIi6SwN3JHTxqa HwwGosFZJ0a2XfGg38C40w IHdpZHRoPSIxNSUiIHZhbGlnbj0 akB6dWg5+KCRtsZM4mJC7vF3lKq IeWlB6DYtdM199NlBkoUVp Akxdk9cqu9apqWs2InGoITLzgxM ypMzsYJS8t1QaHi43F6AfkGklg5 JzMif0vt78aGLuv3V8kZK6 M1RwKBIyuyzqmSUxhFxgFG0vWXL vrzukUABmyF4vPUQuZ3x3QjCvCw W5EXptX6ItnuP8NMQwwQJg XLWvaHFDhZ5qumvdm9zcfqpyPiJ mTJQbQFd1IBl1MFPfyLsfJhIkEI I5DnX4MLM1qYOnzT7lwYfp igjfuS5dDpe+PRQ7fDKqnZTOWD1 lOjwvdGQ+ECLpKQL0hDtcHLizZG EqaX0hJLZnN3v6AgZlLyS9 UNhiR2BdysF9ESZytQBwFOPwlDW PhM3pqurnf9qxcqlaYiJoRFRzWL e4VJe6TOLcqPzrTmTdPXD2 WuT1HMG0wTQctZ1doXeaaxqzxT9 wOyc+GaieqTlaIUQ1FCo3T0PkKb i1YGKepGytEX0ldRSyDVww Mj7ibGjlpLzkLQ6eWXXdfsruh59 1PwPci6aqMJQriKDlWEciGSK3J8 6tt5B7XRPyXWYfXDB1zVB8 rU2jwQmwuapueMHzxIuzwtJguZp uAJajYGkmT821SJNwbWqzBfPvTL c6Z8BwJlq9IITeySkcEM0e dVIqPHlxTq1qaYbehEdwBC7dUVD agktji321BsFlo4sdPENaeFJqUR otLKS5L31ac8J2XAJtKOPi ZPI9kTR7zO8ccFqebsyvfFEmbDd jvwBirMfhCAakZUfxG920VSYokV qhBvGmnAs3A8HtGpi1YMNv xJjbMG7wfTJfVVptZx2lsKxsgFg lUT5cPGRhdyufc569OvCip5paSG GfyDLsCPazVNM6S72kg1S6 NIBbLVAaWFU0jNH9jV0ocMlvucg gbGVmdDsgdmVydGljYWwtYWxpZ2 46IHRvcDsnPlBhdGllbnQg AYkpGBx6L9AkVznmpNA+QR02MGR hWY41vABvsMCiq4wscKv4LcRyFG JmUWS6aCgsSVbde2JjBUQc E57tgZZnk8M3CFQdjXlzlTTcWkG obYH9lG8gVUcffivnz5zpypxhEq ynu4xswk70aL59I01vLJii LKWqDQBxXHYkPNPoxEmrfd1dsJ8 wIi8+AZDsxKM2yOS9fW2iDBAsXd L9AAvlA754MeFidOUmOxou r0tfv2iojWq0FtA6VWSgdqWtrMi rXRK7u8QbSf10V60dRTmtALAeOQ QvRITpQFTkaKzhzy2iaI5u Ii8+RWOkfLX0qAA4aT5xHyVmOpM 4FUcpU113ZtZqgHQsRwirN06cR8 JvdXA+CFXdLdq0QAEncBip DT0itIVzUErmKd5oDAA8DsNdYnT sVXbpC9ZzLMNujbgsbceauFQ4VV SsDRMhbJ74Zq3ykTbqJXEp jPZDaM4zwsdel7ahtmrbUeSyFEA eKRi9CNn7CZMreIbxGsYqBEX9Ec B7ZHD9kOOgoE0woOrrjbrw cJ2fP2YvZWNrsgvgIx16xH5nClR aJdA8JVjwEha+TVVMTEVOUywgUk FNKGQLSVSPWMqUQmV7C7Mc Fuz1LIVfbJwbSZ5pzQOuEKulFa1 ypXwvaYxaQY4pMOZjwthfEVYajX 8wNCDbgUSadEwiIN6eFFTm fxakn623MrFgLIT3LNGupWFzL9W vyM1xGeUsJMQjDYDrI3YkrCAcGY mwY456PZohAsN5IIKcfsXi K2KcFJVgxBepHsC3i1J5Oi9zWD1 aOs6vNGo8VB29NI14nURpe5A7lH B8X1YxOYLwwlzpcavjwEA7 YGTwGQScfI57mQVzMYhlKi2vp0X 0y088TQYwZYNecI58Cu4uwSdfOS VazZATdP6sysozz5mbmttp PtPuPWSnIOe3TEc3DQQniRnyPcH gAQU3IdK4EYB8aRDvmR3miRwwtc slxI7kEaw+MzcgWWVhcnM8 T9HzAwr5NJVyyTlfME1fgVNlYHd bJm7caGbqdUlaAQ0iPGYskpjhNJ GmzS3uBEKkmDDgwLogUW2k JBRcgnjkx550ByQmOSU2QRJtdTQ aR5VqqN6gMlMfLRWfJXUqZ8GgoY BaZVirB628ONoyVpI6LIWe trMkB2ZkCBZuoVugVfK8e9T3Qi1 KQW1VWBC5F2PtRxs0AUHqjVclZI 2tcYCtWDlxSl9urTnigLon HW1zPHJsutcxVZOjfK9hGSSpfBY ykMtoBU5vGKHnhnjfu778GjZgSV A7UPMctHTuH9UztE9sSaQb VGGwNHQlQ0KyyRFrTMqeX708IAh hScJ1TZRqmsUvH0EhTZPaySaxGt I6v9L7Aa9AIBphM9HgY2Zk eTwvdGQ+NC36th32D8YcYhtmIbg 0HHUbCWD3bTR3dJ4gPBApZArsk0 X2dEB3N3SincBzaw3sz9hz SKZoRYmqN62kmVPrw5L0UHLmcWG 5WBRgfAwyRxVpqP17Jwt+PGNvbG byf1CxInjdg5njo7chgYg4 PwIhXIAdxtBrxYylTOD5w4WjQn3 8T10zXVvtVFCrXMBhJVMjDTZgaG idzb7veD0dOt5+PGNvbCB3 qPI4oJ1iSrLgWwR8WAzeI683AuW rcPFjFngvj8ofp2apmUs7QxCoBE AyjyUizEhvKFG3z7FuWo93 B2TvnSjpb6RkGto4ik84eFWhq2T 3fNP6G9DxGNOojhtkbFTtcYsuCC 0zELRkzqvmAHYqoJ8nTFSc Y7z1IcPtRhA0TTcqY0YjsjR2JOB wiNRzMPEezHGPtV0kbttai9bmhn nkAsRqIGNsOZc3LAe2EYYq zUzpEyMkLKP7WuC2QJY0iJKliP6 enTrarrfixR5rPjc+WPb0r2ndbD YyYD1fbFG3CW52JM38eUSd f9H1dAD6R9KhHNVlurmdjccnyAN 6UMUyLTNduQ12Zs2pyWejPd0eTX GfXDS5TWHveSXsK2AxuS3p TnNhSRGjIOXlC2EruJCnULorD92 4YBmvGtH6XTRozhLyR5ZcRAPhbS zuNwX8r1W3Lo3OOZ79VH22 DK32aLWmj6U5sIB8E1NeOMXfrcf isdhcfLA2UNIcRDEvcV45Pa1fgT rsVf1hFEIaMJJ6TAZxjDPn Y2MjfR8uPsEfOLPxEWJtD0YkoLD oLXgaU031CJjoUeN5XMLgwiBkP6 GyZMIalGldCeS7n8L9Nk7V Re68TA09AX39vRAim1D5lBF9P5Z iPNPkxkzncbxeaOD0HGQjTDSuqX 61Uu9jyVplAi1sEZMcOWU1 OCQrhXUvQ0GboR9uIwLeDREfNOY uV0QnvSLcPUynJ035FOmfQrJ6CH PxnnOxA1GfQIYezPphQyS0 l2F7Rp3YYWfobgv5Q9OzYsqbjPY +VR45YIHgVE12tOPmtLYri1pclG p9LwSwJRGeSYV7pYcmAGym b3J (more content not included)... [facility] Consent Formson 01-27-2023 Consent Forms [id number] 1 03-29-2022 Progress Note - Provider [id number][facility] Coding Summaryon 01-24-2023 Coding Summary HTMLBase 64 UikcfokeJBr7qEj+PGhlYWQ+PE1 DDYEvH03qyAYyuO2aD0ONSYnZQd pzTDHYQLjMBeJuodAcPE1buHXnS XJu IC8+QV3oTUNcTpoktUCnp1T6tPT 3J37rhd8dAUnllYF9WFKcGlXyrt bbn7wryJp3UKuxRazeXcLj RLYrgI98NCM8zM82Vr66gSXmqBD iu4cxtLa7WlYcHOWeYAT7lUfeTA dot7GiHQSwK75qlYPkh5O7 RWSnjFakhUTkZhUxzUI7jZ8qYAq npocxm0dvyfoqEax7gx14aFZgk9 N0cNP4M4FasyO9UPAvcFXt WxdrwNVUcZ7pytkco9lgifvlDzQ gUNUoVZs7ZGl5TQGdlUzlOvJkIB 50CLO9XJWrujCrU5SqPNSz qQghUlJ2f8G0Mt7UM9BZJoymB1K NTUFSWTwvdGQ+RH59qk66M3ZjAe agNyz1ZXLhAMB0wZR3mG4b DWGnXZpxg1G5jJI7G1NyknHlsy2 ch3rfXNAoPYjqX41gvBYuh4R0NY YjeKM2SBKwaDgkRvNzkD57 Oyc+WBFwcEgkx2OdZnrmr3tog2z qwXw2FesgBPCecjRkgWuoHBB0n3 SkTs9dTQGdeIL2pUM6kE2a QuHqTxR3CNpgF676BrCcqIRtEdw kP19rA0PhgRI+FCBfFuu5YMAtdJ dqND3lF2NyKRPpzeuxzTKy mUblTE4jMTOrpvfrKGJptQ4cQVR jA0x0XuQfXhA1HShsG0VxMCCywa htUy26hG5bBrBlTjF2UFnb J9HwwbK5NMYlvZWqKIdnNOO1H04 tm1M9YOLcKPVoXXP0eKD5iK4wlB lnbjogbGVmdDsgdmVydGlj CVzuZJyrO043LICjnPmmRhLwERy uZyBEYXRlOiAgMTEvMTcvMjAyMz wvdGQ+NTZuBHL0cPccJTTm gFRmHVrbGi2rrGdihVggHC9fCHY czkujPHLfnT8oGITbiQEavRxqMA 8fJKHwvrikf626FoJeCZZ0 UTMhsNRrY1RfwL1yVfVcSQQsVNG pN2WhzSRmJZfvA027UNxsEnS2QT EdpaZfM0YdZTZbzRvgPvD0 i0D8Qw3Tw3IkrnlfP8UpdPUvAlL pGvsiJAs3J2SlInmgfPA+PC90YW FwHZ05CSc9YMQ8iXfxVEyn ATBpE8VyaC4sUrYkEUQoZIVkXtz +PHRhYmxlIHdpZHRoPScxMDAlJy OywZezIL6oLz5pJHMxPVJi jAsoeAYxVsLom7hbRSAbARtoPG7 zzGndJ8OkeYM9HMDwm1e5Dr20X4 5sL5MfsOK+SGTzkOA6iMT9 dO4fGbTjLdR6EIxtF347UaWkpWJ hXtxsf3tjq1cjaQu0HnQ7OLRdhp TsbBruUJZ2l4IiRc58G42e IHdpZHRoPSIxNSUiIHZhbGlnbj0 ikL8yUo5+NTBzcEY2vKO9mS5oAp KuZpO9DOrmG593RiPmoDQq Ydunh6yct9qzrKx0EoXqIREkuvF iyRufPIR0c4XyCo17S5MicHbgx4 EuSjd4xv61xSFyl4U6yZS8 J6KfOARichlxcRDonTazCY9iCNH yovawTKHfwX5gWLRnK4p6CqSaFb N1GXluA1KnanY5AKRrnBKn MJJjhGBWfX0trhiix7kslsdgNeN oYSEtNBr8HMz0NVStgJgwCbXsCM P3XnW0LHJ5tNAvuK0plGba muwijT1nCrq+FVO5yVOzgEVREM4 lOjwvdGQ+JKWuBZJ8mPftACntZK OptW7uFDYeJ0e1BbHvRyZ5 ZSsvH7FhchT7KKStaVJqHGWqwPX ReZ4ckhuyz9bzugauEoAaNKPlHC s5HGy2DJErlZvcRvIwOVV9 LdD1TGX3fAJijY9gkQfrssvsxD1 wOyc+MuwvaOjkJHW9FXb9B1WlGh k8UHVhhMnqOY2pqQAuBIwu Oa8jwEfsnXlnCD6zHQAqbrwbo50 0LaAfu4kxJZEnlWCjNJzkONI6L8 0oz3D9LMHrSPWxFVB9hOH1 wI2xeMqtdkrrsJFwvHvhitUroGh dKKbiLJxoB519IDLlfLndWtHtLX m2B9RnFqg3STHnfSesVI6c uPJzSPndDt6rxKwvwKsqWW5kTNB dculbz734GuHcz5afRZMdjHErPW dyBBD5L59uy9W0MLCaYINo IVT3zQB0sV7fpVxvuaqwjBJpjOq wtlZazTefRQycDUzzZ367CLUowR zgVnAbwHs2E5EiZac7UXVk hGeaZU3xtSRgFTekEg8exUrorOt bNT9pVTKdzxzvz885TuOfb5nvVI YxyAXsNVvmWDI8F44fg3R8 UAHfNUDrHIQ7bJH1uU2cfBxnulq gbGVmdDsgdmVydGljYWwtYWxpZ2 46IHRvcDsnPlBhdGllbnQg QThjDQr5N1ErLafnjUQ+AR94AXT qAN97hRIxpAWym6jvsTr5HwNuTP MzIFF4lZpvIXvke6RpJPNp W16chRFhn6Q6XDXprGkcrQYtElO hyRY2kU8rLJjmekjpk9jjyqrlSs eqt6kxty50dW36N31mSHvp IIOoACJiNCYvBSIckWrvhx7daF0 wIi8+CCRmiEO8gCC7qJ5eMPGyLd W9FFsgX016NdHfjKEfYeam n3qko9bwsLf3GdV3FLYujtFdjEh pSAO6v2OoYu09I06uPPwrUVWzFU AiPYUeZYBcgVxnpi2nuS1o Ii8+AGCmhMH7tBW1xL6pOcWuXaW 5FOigM084MtLbeDPgZtccH75aV4 JvdXA+TECaUma6MJYgmOoc VM7gsKRdRQpaIx8hEHU3XxTxRlG uZLyhY4WwJNKnytwjojbrtDB7LJ SyOKOmjN77Ik7mrAuzPOIa lRSUdH8bhqlou3mxrkegBjJuQER jKQh9ABh6GHAktXviVbSdVAN0At D5BNJ3tVVbvY7gqRpkceyz xO5oS2XyIIEmgxdlTn21xC7jGmO pJuM2ZQmxQyj+TVVMTEVOUywgUk PNSFTSOIRVIRuUGpS8P3Hf Fof2DXKlwBxdOA2ojEGmGHqnGt5 qvNagzLayHG3uTSRdgraxEUTmpW 2zGLYlnTQbrYsgIC5gKPLy xtbod278SfRmTPJ0UDSqjCCdP5I rwU3aCoEdXCGtYCOlX1XxwNOcTA coX231DMtkWaX6TCXyewYn I3BuZKBqeCvtZxY9d9I4Sq6fNA9 pWn3cZXt4XC83BG24gGMgh1U4rC N6P6UvYUUdjrijotpefEC4 IPExBBIqmM26tYTuPVizFz5gn0B 0u936KMWjLGErwR21Qh6opHdkJA BmjEUNzU1ilaecz2orijxm TzOlEJCjAXx8AGf6EMInaWdlVgA oGAC6QoY1QXN4rNQucU1frJchwn jxwN4tQhg+MzcgWWVhcnM8 H4OiJgd9JWFacLgkCF4taWZeIXe dXq7fpMfueNrhRM5wSAPntuliUG YxvP1mUCHxqROyjNlfKY1f XGKosogov198EpQuUSS0JBLgoQI qZ3ZfmR8cKiMtYXBaIEUsG7MrsJ DsJCkyY452UTtkUhJ2NVHn hyEqC3PlXNCndVcbHpK6s6D7Su4 QRL7MDIL7O9DaFvb9ZJRszZrfRU 4ldMLiZSyqNe0mmFoshRpi JJ5oYENsqbxcWRJrbK2zKHLdbTF rjBryWM5kHIGumovzx363OlTrMJ W0YONjbODdC2HniS9yGlJe TRZlEBTmO4WxhONdZHhqW108YEo nHyG6JZAyjqLsC0CjYYKpgZitKv R1o9K8Zk6ITLfkmSM+PC90 rw20O1OcWbclTrz2DCPbMHG4hRP 4xH7qHNJyUAoxi7S5rIA4L1Gkly Srxb6ls1kkOSHdJWmbN35j oFMgg5B1CWDkgDO7VVLgbSzmQkW zfU39Ksn+EZAqwMsvd3VkNlyin1 tgc3guaIv2KxZtRUKmhrLg hAhfBRG3g8VtZt64C21zGQveWNY wRREvPQToBQYswZvgpk4zmJ2nIw 8+LLXoiZP6sWI9aY3xBrZa DiW4PTzyK432WbAzhOIjCxtsf0l wk1gtuQq8LrCbSWRihfPebUcbTA Q6l3GtTi71Z2TewEeym4Uc Tfb7iq15zXSqv3D3sQX4K6CuUNY eeqhtxUWapIbjDA4uSMBjaxpzFG FmkP8jALQkM1q6EnIlXlF1 DQpgX6QbetR4IESjnUThPQEqmXH MoE6mndfjn2gzrmdsYiYuCZLsHS a4IKg3JWUsaEooGxNwCIX0 PyH2QYN0mNVxaS7ndNjdxyucbV0 wOyc+XVt6u0looTQjZK3wlQY0SN 36DT92gALmw2D1gDW8Y7Hf NDIcqrfqqwxyuKG7HVOrPQRihQ1 6Fn0hgCbtCc6hTTIvSWW3NXXdnK CvB7YovO7jFkOuPINlINBi Y6QwcXYdKLllC349FGifNcQ2NPQ ilvGzJ8ZiYFRneGmtTnN9l0Y5Rb 1DSD24BZ85DQ33uIUjk3E6 aRD2V1UhLXLcwghvdqwmyZZ2PJF aGTDtaC67Vm2ikSubLo6iPWZgBY A0SMZnfSHsA2BthG7jEiTe CIHyRNDlK4HulEIrVXogA824GVp jRiX4ZMCmbiIjA9KiZUZerRjgEb L9i5O9Pq8HYj97TD74XK51 iHByl4H7bXD6Y3YcTOPwjacdprh ztEG0QTJrMZMojP59Dm7ssHugPi 6vEQYbLKL2JIOjdDIiZ5Xv nU0qNzEhZWGlAIMfH7CxxMCaWMm gJ070ZIsrJgG0NWLrioAoK6IzBZ TmlQduZbQ0s7O2Jr6EGYtw hmg6O8BoTrsnmVA+RS62PSNaUW7 6eIVriIHva9kpyAr9IdThXMAvAS Q3zEtqNGmun6HtVAFbN51p bGF (more content not included)... Normal [facility] Inpatient Patient Summaryon 01-24-2023 Inpatient Patient Summary [facility] [address] [place] [address] Patient Discharge Instructions Name: MICHAEL RAMON DOB: 1985 Patient Address: [address] [place] [address] Primary Care Provider: Name: Thu Baldwin DO After you are discharged if you find you have any questions, please, call [phone] ext [phone] to speak to a nurse. Discharge Diagnosis: Prescription Information: If you have been given a prescription for narcotics, seek immediate medical attention if you have any difficulty breathing or any sudden status changes such as confusion and sleepiness. If you or anyone you know is experiencing suicidal thoughts, mental health, alcohol and/or drug addiction problems; contact the [facility] 30/09 Crisis Hotline -Text 4HOPE to 683596. If you received any narcotics, sedation, or any other medication that causes drowsiness for the next 24 hours, unless otherwise directed: ? Do not drive a car. ? Do not operate machinery such as power tools, lawn mowers, drills, sewing machines, or stoves ? Avoid alcoholic beverages and drugs for allergies, nerves, or sleep ? Do not make important personal or business decisions or sign any legal documents [facility] would like to thank you for allowing us to assist you with your healthcare needs. The following includes patient education materials and information regarding your injury/illness. MICHAEL RAMONA has been given the following list of follow-up instructions, prescriptions, and patient education materials: Follow-up Instructions Medications During the course of your visit, your medication list was updated with the most current information. The details of those changes are reflected below: Medications to Continue That Have Not Changed Other Medications baclofen (baclofen 10 mg oral tablet) 1 tab(s) Oral At bedtime. Refills: 2. buPROPion (buPROPion 150 mg/24 hours (XL) oral tablet, extended release) 1 tab(s) Oral every 24 hours. TAKE 1 TABLET BY MOUTH ONCE DAILY IN THE MORNING. DO NOT CRUSH, CHEW, OR SPLIT. cetirizine (ZyrTEC 10 mg oral tablet) 1 tab(s) Oral every day. cholecalciferol (D3-50 (50,000 intl units) oral capsule) TAKE 1 CAPSULE BY MOUTH ONCE A WEEK. diclofenac (diclofenac sodium 50 mg oral delayed release tablet) 1 tab(s) Oral 2 times a day. Refills: 0. melatonin (melatonin 3 mg oral tablet) 1 tab(s) Oral once a day (at bedtime) as needed for insomnia. metFORMIN (metFORMIN 500 mg oral tablet) 1 tab(s) Oral every day. TAKE 1 TABLET BY MOUTH IN THE MORNING WITH MEALS. pregabalin (Lyrica 50 mg oral capsule) 1 cap(s) Oral once a day (in the evening). Refills: 0. It is important to always keep an active list of medications available so that you can share with other providers and manage your medications appropriately. As an additional courtesy, we are also providing you with your final active medications list that you can keep with you. baclofen (baclofen 10 mg oral tablet) 1 tab(s) Oral At bedtime. Refills: 2. buPROPion (buPROPion 150 mg/24 hours (XL) oral tablet, extended release) 1 tab(s) Oral every 24 hours. TAKE 1 TABLET BY MOUTH ONCE DAILY IN THE MORNING. DO NOT CRUSH, CHEW, OR SPLIT. cetirizine (ZyrTEC 10 mg oral tablet) 1 tab(s) Oral every day. cholecalciferol (D3-50 (50,000 intl units) oral capsule) TAKE 1 CAPSULE BY MOUTH ONCE A WEEK. diclofenac (diclofenac sodium 50 mg oral delayed release tablet) 1 tab(s) Oral 2 times a day. Refills: 0. melatonin (melatonin 3 mg oral tablet) 1 tab(s) Oral once a day (at bedtime) as needed for insomnia. metFORMIN (metFORMIN 500 mg oral tablet) 1 tab(s) Oral every day. TAKE 1 TABLET BY MOUTH IN THE MORNING WITH MEALS. pregabalin (Lyrica 50 mg oral capsule) 1 cap(s) Oral once a day (in the evening). Refills: 0., OARRS REVIEWED 12/31/22 Take only the medications listed above. Contact your doctor prior to taking any medications not on this list. Diet & Activity Patient Activity Level: Patient Diet: Patient Activity Restrictions: Comment: Patient education materials, if any, will display below Viruses or Bacteria What?s got you sick? Antibiotics only treat bacterial infections. Viral illnesses cannot be treated with antibiotics. When an antibiotic is not prescribed, ask your healthcare professional for tips on how to relieve symptoms and feel better. Usual Cause Illness Viruses Bacteria Antibiotic Needed Cold/Runny Nose NO Bronchitis/Chest Cold (in otherwise healthy children and adults) NO Whooping Cough Yes Flu NO Strep Throat Yes Sore Throat (except strep) NO Fluid in the middle ear (otitis media with effusion) NO Urinary Tract Infection Yes Antibiotics Aren?t Always the Answer www.cdc.gov/getsmart GET SMART Know When Antibiotics Work U.S. Department of Health and Human Services Centers for Disease Control and Prevention S (more content not included)... Normal [facility] MAGR Intraoperative Recordon 01-24-2023 MAGR Intraoperative Record MAGR Intra-Op Record Summary Primary Physician: SAM HERBERT MD Finalized Date/Time: 01/24/23 12:15:52 Pt. Name: MICHAEL RAMON/Sex: 1985 FEMALE Med Rec #: [id number] Physician: SAM HERBERT MD Financial #: [id number] Pt. Type: D Room/Bed: / Admit/Disch: 01/24/23 11:22:25 - Institution: Case Times MAGR Entry 1 Patient In Room Time 01/24/23 12:09:00 Out Room Time 01/24/23 12:16:00 Anesthesia Start Time 01/24/23 12:11:00 Stop Time 01/24/23 12:15:00 Surgery Start Time 01/24/23 12:11:00 Stop Time 01/24/23 12:15:00 Last Modified By: Ami Baker RN 01/24/23 12:15:47 Case Attendance MAGR Entry 1 Entry 2 Entry 3 Case Attendee Thaddeus MORGAN, Giuliana Williamson, Freida RN Ami Baker RN Role Performed Capacitor Repairer Capacitor Repairer Capacitor Repairer Time In 01/24/23 12:09:00 01/24/23 12:09:00 01/24/23 12:09:00 Time Out 01/24/23 12:16:00 01/24/23 12:16:00 01/24/23 12:16:00 Procedure EPIDURAL STEROID INJ EPIDURAL STEROID INJ EPIDURAL STEROID INJ TRANSFORAMINAL TRANSFORAMINAL TRANSFORAMINAL LUMB(Right) LUMB(Right) LUMB(Right) Last Modified By: Ami Baker RN, Barbara RN Long, Barbara RN 01/24/23 12:15:48 01/24/23 12:15:48 01/24/23 12:15:48 Entry 4 Entry 5 Entry 6 Case Attendee Samreen Means Melanie N Adkins, Brittany E CSFA CST Role Performed Capacitor Repairer Professor Of French Scrub Personnel Time In 01/24/23 12:09:00 01/24/23 12:09:00 01/24/23 12:09:00 Time Out 01/24/23 12:16:00 01/24/23 12:16:00 01/24/23 12:16:00 Procedure EPIDURAL STEROID INJ EPIDURAL STEROID INJ EPIDURAL STEROID INJ TRANSFORAMINAL TRANSFORAMINAL TRANSFORAMINAL LUMB(Right) LUMB(Right) LUMB(Right) Last Modified By: Ami Baker RN, Barbara RN Long, Barbara RN 01/24/23 12:15:48 01/24/23 12:15:48 01/24/23 12:15:48 Entry 7 Case Attendee SAM HERBERT MD Role Performed Surgeon - Primary Time In 01/24/23 12:09:00 Time Out 01/24/23 12:16:00 Procedure EPIDURAL STEROID INJ TRANSFORAMINAL LUMB(Right) Last Modified By: Ami Baker RN 01/24/23 12:15:48 Surgical Procedures MAGR Pre-Care Text: A.20 Verifies operative procedure, surgical site, and laterality Im.150 Develops individualized plan of care Entry 1 Procedure EPIDURAL STEROID INJ Primary Procedure Yes TRANSFORAMINAL LUMBAR Primary Surgeon SAM HERBERT MD Modifiers Right Surgeon Comment RIGHT L4, L5 Start 01/24/23 12:11:00 TRANSFORAMINAL EPIDURAL STEROID INJECTION Stop 01/24/23 12:15:00 Anesthesia Type Local Surgical Service Pain Management Wound Class Clean Technique Details Closure Technique N/A Entire procedure No was performed via laparoscope or robotic assistance Last Modified By: Ami Baker RN 01/24/23 12:15:49 Post-Care Text: O.730 The patient's care is consistent with the individualized perioperative plan of care General Case Data MAGR Pre-Care Text: A.350.1 Classifies surgical wound Entry 1 Case Information OR MAGR OR 02 Case Level None Wound Class Clean Specialty Pain Management ASA Class N/A Diagnosis Preop Diagnosis LUMBAR SPINAL STENOSIS Postop Same As Preop Yes WITH NEURO CLAUDICATION Postop Diagnosis LUMBAR SPINAL STENOSIS WITH NEURO CLAUDICATION Blunt or No Is the procedure No penetrating injury considered occured prior to Emergent/Urgent? the start of the procedure: Last Modified By: Ami Baker RN 01/24/23 12:08:19 Post-Care Text: O.760 Patient receives consistent and comparable care regardless of the setting Time Out MAGR Entry 1 Procedure(s) EPIDURAL STEROID INJ TRANSFORAMINAL LUMB(Right) Time Out Checklist Verifications Patient Verified Yes Allergies Verified Yes Procedure to be Yes Presence of Yes Performed Verified Necessary with Consent Procedural Equipment, Devices, and Implants Verified Site Verification, Yes Site Marking, Site Marking Alternative, and/or Site Marking Exception in Accordance with Facility Policy Anesthesia Review Antibiotic Received n/a All Anesthesia Case does not involve Within an Concerns Addressed an anesthesia Appropriate Time professional Interval Prior to Surgical Incision Surgeon Review Anticipated Blood Yes Loss Risk, Expected Case Duration, and Critical and Non-Routine Steps to be Performed Addressed Nurse Review Team Introductions Yes Equipment Concerns Yes Completed Addressed Fall Risk Concerns Yes Fire Risk No Addressed Assessment Completed and Interventions Performed Skin Assessment Yes Diagnostic and Yes Concerns Addressed Radiological Test Results Displayed are Appropriate and Labeled Skin Prep Allowed Yes Sterilization Yes to Dry Prior to Concerns Addressed Incision Venous n/a Laser Safety n/a Thromboembolism Measures Implemented Prophylaxis Ordered Latex Precautions Yes Other Concerns Yes Implemented Addressed Time Out Valerie Palomino CSFA Time Out Time 01/24/23 12:10:00 (more content not included)... [facility] MAGR Preoperative Record MAGR Pre-Op Record Summary Primary Physician: SAM HERBERT MD Finalized Date/Time: 01/24/23 12:06:06 Pt. Name: MICHAEL RAMON /Sex: 1985 FEMALE Med Rec #: [id number] Physician: SAM HERBERT MD Financial #: [id number] Pt. Type: D Room/Bed: / Admit/Disch: 01/24/23 11:22:25 - Institution: Pre-Op Case Times MAGR Pre-Care Text: Patient will be optimally prepared for surgery. Patient is free from s/s of injury. Provide information to patient/family related to plan of care. Verify patient allergies. Confirm identity and verify consent before the operative or invasive procedure. Entry 1 Patient Arrival Time 01/24/23 11:30:00 Preop Departure 01/24/23 12:06:00 Last Modified By: Ami Baker RN 01/24/23 12:06:02 Post-Care Text: Patient is prepared mentally and physically and is ready for surgery. The patient remains free from s/s of injury. Patient/family express understanding of plan of care and participate in decisions affecting his or her perioperrative plan of care. Allergies documented appropriately. Patient identifiers and consent correct. General Comments: Pt arrives to [facility]W ambulatory. Denies CP, cough, cold, COVID like sx. Denies diabetes, pacer/defib, PRAKASH. Pt verbalizes understanding of post op instructions. Finalized By: Ami Baker RN Document Signatures Signed By: Ami Baker RN 01/24/23 12:06 [facility] POCT Glucose Levelon 023 Glucose [Mass/Vol] 130 mg/dL High 74-118 [facility] Comment on above: Performed By: #### [id number] ####[facility] (DEFAULT)[address] [place] [address] Patient Handouton 01-24-2023 Patient Handout [facility] ED Clinical Summaryon 2022 ED Clinical Summary [facility] ? Urgent Care [address] [place], [place] [id number] Clinical Summary PERSON INFORMATION Name: MICHAEL RAMON Age: 37 Years Sex: FEMALE : 1985 MRN: Acct#: Visit Reason: Medical screening exam; [facility] F/U - RT FOOT INJURY Arrival: 01/22/2023 16:05:44 Discharge: 01/22/2023 17:00:00 LOS: 000 00:55 Check In: 01/22/2023 16:05:44 Checkout: 01/22/2023 17:00:00 Address: [address] [place] [id number] PCP: Thu Baldwin DO PROVIDER INFORMATION Provider Role Assigned Unassigned Catarina Meyers MOLD INSERT CHANGER Nurse 01/22/2023 16:08:55 Mati Bell PA-C ED PA 01/22/2023 16:16:35 VITALS INFORMATION Vital Sign Triage Latest Temperature Tympanic Temperature Temporal Artery Pulse Rate O2 Sat 96 % 96 % Respiratory Rate Blood Pressure /88 mmHg /88 mmHg MEDICAL INFORMATION Medications Given: Allergy Information: No known allergies PHYSICIAN DOCUMENTATION DISCHARGE INFORMATION: Discharge Disposition: Home Discharge Location: Home PATIENT EDUCATION INFORMATION Instructions: Follow-Up: With: Address: When: Return to this practice Comments: 04/08/23 at 3 p.m. DIAGNOSIS: Contusion of right foot; Hallux rigidus; Sciatica Patient Understands: Yes - Patient/family/caregiver verbalizes understanding of instructions given Comment: [facility] ED Patient Summaryon 023 ED Patient Summary [facility] ? Urgent Care [address] [place] [id number] PATIENT DISCHARGE INSTRUCTIONS Patient Information Name: MICHAEL RAMON Age: 37 Years Date of : 1985 [facility]: [id number] Reason For Visit: Medical screening exam; [facility] F/U - RT FOOT INJURY Arrival Time: 01/22/2023 16:05:44 Primary Care Physician: Thu Baldwin DO Attending Physician: Mati Bell PA-C Comment: Patient Education With: Address: When: Return to this practice Comments: 04/08/23 at 3 p.m. Medication Information: The exam and treatment you received today in the [facility] Emergency Department were for an urgent problem and are not intended as complete care. It is important for you to follow up with a doctor, nurse practitioner, or physician?s trust administrative assistant for ongoing care. If your symptoms become worse or you do not improve as expected and you are unable to reach your usual health care provider, you should return to the Emergency Department, we are available 24 hours a day. For those patients who have received Radiology results, the interpretation of your X-ray as given to you by our Emergency Department physician is only a preliminary report. The Radiologist will review your films and if there is a change in the diagnosis you will be notified by phone. Please make sure you have provided a working phone number so we can reach you if necessary. In the event that you had a lab culture while you were a patient in the Emergency Department, you will be notified by phone if there is a need to change your antibiotic. Please make sure you have provided a working phone number so we can reach you if necessary. [facility] Emergency Department has provided you with a complete list of medications post discharge. Please inform your diamond powder technician/provider of your visit and for further instruction on these medications. Any specific questions regarding your chronic medications and dosages should be discussed with your primary care physician(s) and/or pharmacist. Additional medications on your home medication list not specifically addressed. Please contact the ordering physician if you have questions about these medications. baclofen (baclofen 10 mg oral tablet) 1 tab(s) Oral At bedtime. Refills: 2. buPROPion (buPROPion 150 mg/24 hours (XL) oral tablet, extended release) 1 tab(s) Oral every 24 hours. TAKE 1 TABLET BY MOUTH ONCE DAILY IN THE MORNING. DO NOT CRUSH, CHEW, OR SPLIT. cetirizine (ZyrTEC 10 mg oral tablet) 1 tab(s) Oral every day. cholecalciferol (D3-50 (50,000 intl units) oral capsule) TAKE 1 CAPSULE BY MOUTH ONCE A WEEK. diclofenac (diclofenac sodium 50 mg oral delayed release tablet) 1 tab(s) Oral 2 times a day. Refills: 0. melatonin (melatonin 3 mg oral tablet) 1 tab(s) Oral once a day (at bedtime) as needed for insomnia. metFORMIN (metFORMIN 500 mg oral tablet) 1 tab(s) Oral every day. TAKE 1 TABLET BY MOUTH IN THE MORNING WITH MEALS. pregabalin (Lyrica 50 mg oral capsule) 1 cap(s) Oral once a day (in the evening). Refills: 0. Visit Information Visit Diagnosis: Diagnoses This Visit Contusion of right foot (S90.31XA) Hallux rigidus (M20.20) Medical screening exam ([id number]) Sciatica (M54.30) If you received any narcotics, sedation, or any other medication that causes drowsiness for the next 24 hours, unless otherwise directed: ? Do not drive a car. ? Do not operate machinery such as power tools, lawn mowers, drills, sewing machines, or stoves ? Avoid alcoholic beverages and drugs for allergies, nerves, or sleep ? Do not make important personal or business decisions or sign any legal documents Reason for Visit: [facility] F/u appt Allergies: Substance Reaction Symptoms Type Comments No known allergies Drug Vital Signs: Vitals and Measurements this Visit (last charted value for your 01/22/2023 visit) Vital Signs This Visit Peripheral Pulse Rate: 86 bpm Respiratory Rate: 18 br/min Systolic Blood Pressure: 138 mmHg Diastolic Blood Pressure: 88 mmHg SpO2: 96 % Oxygen Therapy: Room air Blood Pressure Method: Automatic Problems List: Problem Onset Comments Depression Lumbar radiculitis Obesity Tobacco user Major Tests and Procedures: The following procedures and tests were performed during your ED visit. Laboratory Radiology Cardiology Viruses or Bacteria What?s got you sick? Antibiotics only treat bacterial infections. Viral illnesses cannot be treated with antibiotics. When an antibiotic is not prescribed, ask your healthcare professional for tips on how to relieve symptoms and feel better. Usual Cause Illness Viruses Bacteria Antibiotic Needed Cold/Runny Nose NO Bronchitis/Chest Cold (in otherwise healthy children and adults) NO Whooping Cough Yes Flu NO Strep Throat Yes Sore Throat (except strep) NO Fluid in the middle ear (otitis media with effusion) NO Urinary Tract Infection Yes (more content not included)... Normal [facility] Urgent Care Note- Provideron 01-22-2023 Urgent Care Note- Provider Patient: MICHAEL RAMON Age: 37 years Sex: FEMALE : 1985 Associated Diagnoses: Contusion of right foot; Hallux rigidus Author: Mati Bell PA-C History of Present Illness OCCUPATIONAL HEALTH FOLLOW-UP Date of injury: 08/26/2019 Claim #: [id number] Employer: [employer] Mechanism of Injury: She was moving boxes of celery when one fell onto the top of her right foot. 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 On 08/26/19 she was moving boxes of cel[employer]uotus when a box fell off of the cart and landed on the top of her right foot. She was initially on light duty per [employer]'s telehealth visit. When she was not getting better she was referred here. X-ray was found to be non acute on 08/30/19, but she continued with pain and swelling and inability to walk/stand for an entire shift in normal shoes. She was placed in a CAM Boot, MRI was performed which showed faint patchy edema noted in the plantar aspect of the 1st metatarsal head with no apparent OCD, small dorsal osteophyte to the dorsal aspect of the first MT with an in tact Lisfranc. She started following with podiatry who requested additional condition of hallux rigidis and when she failed conservative treatment they recommended a right first metatarsal phalangeal joint arthrotomy with possible cheilectomy. This was denied, but she opted to proceed with surgery regardless. Since that time she has won some hearings and her care is being covered under the claim. Right first metatarsal joint fusion was July of 2020. She was compliant with the PT that was approved and allowed through the claim, but continued with daily pain, requiring frequent OTC pain relievers and Ibuprofen. She still did not tolerate a shoe and after repeat CT scan of the foot, the request to remove the hardware was initiated. This was approved and performed on 11/05/21 and seems relatively successful at this point in time. She feels the toe is about 90% improved at this point in time. She is continuing with PT. She arrives in a loosely fitting tennis shoe today, that she now states she can tolerate intermittently throughout the day. Her course has been complicated by some back pain for which she is seeing pain management for. She is scheduled for an injection. She relates the back pain as being related to her inability to bear full weight on the right foot, but treatment is being pursued outside of the claim. She is very deconditioned from being off and sedentary throughout all of this. We requested work conditioning, which was finally allowed, but not tolerated very well by the patient. PT has exacerbated her back. She completed an FCE on 01/11/23 and I believe voc rehab has been approved, but she states no one has reached out to her to start this yet. FCE demonstrated she will not be able to go back to her heavy job that she had previously. She cannot climb ladders, kneel or crawl, she has restricted standing/walking/stairs/squ atting/kneeling, and can perform seated work without restriction and upper extremity work without restriction. See attached report. She denies fevers, chills or malaise. No other joint pains or myalgias. No numbness, tingling or weakness. No incontinence. No skin rashes, ecchymosis or abrasions. Healed surgical scar. No previous foot injuries. There are no other associated symptoms. Nothing else makes the symptoms better or worse. Symptoms are described as sudden onset, moderate in nature and partially improved. Health Status Allergies: Allergic Reactions (Selected) No known allergies. Medications: (Selected) Inpatient Medications Ordered BUPivacaine 1 mL + lidocaine 0.5 mL + sodium chloride 1.5 mL + cloNIDine 100 mcg + triamcinolone 80...: 1 mL, 0 mL/hr, Local Infiltration, Medical Information Officer Prescriptions Prescribed Lyrica 50 mg oral capsule: 50 mg = 1 cap(s), PO, qPM, 30 cap(s), 0 Refill(s) baclofen 10 mg oral tablet: 10 mg = 1 tab(s), PO, HS, 30 tab(s), 2 Refill(s) diclofenac sodium 50 mg oral delayed release tablet: 50 mg = 1 tab(s), PO, BID, 60 tab(s), 0 Refill(s) Documented Medications Documented D3-50 (50,000 intl units) oral capsule: TAKE 1 CAPSULE BY MOUTH ONCE A WEEK ZyrTEC 10 mg oral tablet: 10 mg = 1 tab(s), PO, Daily buPROPion 150 mg/24 hours (XL) oral tablet, extended release: 150 mg = 1 tab(s), PO, q24hr (int), TAKE 1 TABLET BY MOUTH ONCE DAILY IN THE MORNING. DO NOT CRUSH, CHEW, OR SPLIT melatonin 3 mg oral tablet: 3 mg = 1 tab(s), PO, Once a day (at bedtime), PRN: for insomnia, 60 tab(s), 0 Refill(s) metFORMIN 500 mg oral tablet: 500 mg = 1 tab(s), PO, Daily, TAKE 1 TABLET BY MOUTH IN THE MORNING WITH MEALS. Past Medical/ Family/ Social History Medical history: Resolved Lower back pain ([id number]): Resolved.. Surgical history: Epidural block ([id number]) on 03/06/2022 at 36 Years. Comments: 03/06/2022 10:33 Dana Conklin MA RIGHT TRANSFORAMINAL L4 AND (more content not included)... Normal [facility] Urgent Care Recordon 023 Urgent Care Record [facility] ? Urgent Care [address] [place] [address] PATIENT DISCHARGE INSTRUCTIONS Patient Information Name: MICHAEL RAMON Age: 37 Years Date of : 1985 Reason For Visit: Medical screening exam; [facility] F/U - RT FOOT INJURY Arrival Time: 01/22/2023 16:05:44 Primary Care Physician: Thu Baldwin DO Attending Physician: Mati Bell PA-C Comment: Visit Diagnosis: Diagnoses This Visit Contusion of right foot (S90.31XA) Hallux rigidus (M20.20) Medical screening exam ([id number]) Sciatica (M54.30) If you received any narcotics, sedation, or any other medication that causes drowsiness for the next 24 hours, unless otherwise directed: ? Do not drive a car. ? Do not operate machinery such as power tools, lawn mowers, drills, sewing machines, or stoves ? Avoid alcoholic beverages and drugs for allergies, nerves, or sleep ? Do not make important personal or business decisions or sign any legal documents With: Address: When: Return to this practice Comments: 04/08/23 at 3 p.m. Medication Information: The exam and treatment you received today in the [facility] Urgent Care were for an urgent problem and are not intended as complete care. It is important for you to follow up with a doctor, nurse practitioner, or physician?s trust administrative assistant for ongoing care. If your symptoms become worse or you do not improve as expected and you are unable to reach your usual health care provider, you should return to the Emergency Department, we are available 24 hours a day. For those patients who have received Radiology results, the interpretation of your X-ray as given to you by our Urgent Care physician is only a preliminary report. The Radiologist will review your films and if there is a change in the diagnosis you will be notified by phone. Please make sure you have provided a working phone number so we can reach you if necessary. In the event that you had a lab culture while you were a patient in the Urgent Care, you will be notified by phone if there is a need to change your antibiotic. Please make sure you have provided a working phone number so we can reach you if necessary. [facility] Urgent Care has provided you with a complete list of medications post discharge. Please inform your diamond powder technician/provider of your visit and for further instruction on these medications. Any specific questions regarding your chronic medications and dosages should be discussed with your primary care physician(s) and/or pharmacist. Additional medications on your home medication list not specifically addressed. Please contact the ordering physician if you have questions about these medications. baclofen (baclofen 10 mg oral tablet) 1 tab(s) Oral At bedtime. Refills: 2. buPROPion (buPROPion 150 mg/24 hours (XL) oral tablet, extended release) 1 tab(s) Oral every 24 hours. TAKE 1 TABLET BY MOUTH ONCE DAILY IN THE MORNING. DO NOT CRUSH, CHEW, OR SPLIT. cetirizine (ZyrTEC 10 mg oral tablet) 1 tab(s) Oral every day. cholecalciferol (D3-50 (50,000 intl units) oral capsule) TAKE 1 CAPSULE BY MOUTH ONCE A WEEK. diclofenac (diclofenac sodium 50 mg oral delayed release tablet) 1 tab(s) Oral 2 times a day. Refills: 0. melatonin (melatonin 3 mg oral tablet) 1 tab(s) Oral once a day (at bedtime) as needed for insomnia. metFORMIN (metFORMIN 500 mg oral tablet) 1 tab(s) Oral every day. TAKE 1 TABLET BY MOUTH IN THE MORNING WITH MEALS. pregabalin (Lyrica 50 mg oral capsule) 1 cap(s) Oral once a day (in the evening). Refills: 0. Visit Information Allergies: Substance Reaction Symptoms Type Comments No known allergies Drug Vital Signs: Vitals and Measurements this Visit (last charted value for your 01/22/2023 visit) Vital Signs This Visit Peripheral Pulse Rate: 86 bpm Respiratory Rate: 18 br/min Systolic Blood Pressure: 138 mmHg Diastolic Blood Pressure: 88 mmHg SpO2: 96 % Oxygen Therapy: Room air Blood Pressure Method: Automatic Problems List: Problem Onset Comments Depression Lumbar radiculitis Obesity Tobacco user Patient Education Viruses or Bacteria What?s got you sick? Antibiotics only treat bacterial infections. Viral illnesses cannot be treated with antibiotics. When an antibiotic is not prescribed, ask your healthcare professional for tips on how to relieve symptoms and feel better. Usual Cause Illness Viruses Bacteria Antibiotic Needed Cold/Runny Nose NO Bronchitis/Chest Cold (in otherwise healthy children and adults) NO Whooping Cough Yes Flu NO Strep Throat Yes Sore Throat (except strep) NO Fluid in the middle ear (otitis media with effusion) NO Urinary Tract Infection Yes Antibiotics Aren?t Always the Answer www.cdc.gov/getsmart GET SMART Know When Antibiotics Work [place] Department of Health and Human Services Centers for Disease Control and Prevention November 2013 [facility] Coding Summaryon 01-21-2023 Coding Summary HTMLBase 64 OyltmbfmJUi7mXd+PGhlYWQ+PE1 RALGhT61niUInfL1dB0AQTPuMEk zwSIUNXZaTSzBtplKuMQ0swNMyY XJu IC8+OA1bXDPiJqqvlPVgy8Y5lGB 3R13tcl1eCAsuoYG4OPCzAwIaam cyu8yvhKw5RVpmYjqrQnBo TBIbaR75WIM5lL17Mw19pANuzAH ug0eivHm3ZpJhHBMvNXI2iDseSU bib6SsOTEaN83veNCck5P0 YDWklWdmpOCzBfIuyQH7rJ4nGBg zppxkn8gcanqtWna0tm77sGHzc3 Q2mPT1U5DtuuZ3XYFdyLTd MlnhlJEMeB2zncaaq6owmxdrCrN fVNMbAQf4GLr7GJPanQsfPgXeGN 28HEJ0YANzymPpV7UhTLUw tJddUmW5i7O4Hd4AU6HHZvueN2E NTUFSWTwvdGQ+XP15bk59W9GkCe heVya7NSWvFIH0hIK2eS0g BODtIFekn6Z1jQY2P0NfzqDjgh0 ng3gcJKTbKSlyN66klCDbo2J7EW QrbGH4JBJezDxmGmYydB96 Oyc+LUIpdKpmx1TnEfdje7yzw1m ocZt5KzjuFVRdxcWnnJspKIX9a5 YsNp8cNSDjcHB2fTA5oB8f OaXsKnM3WKizI876HgPloICrGry gJ93pL1JhqIJ+EGAaXue5AQTawM tfGK9rU9UvIQRprmxvqPPf bTssIP4rVNZhysteGJOypK1vLGR wL6k4MeZiVmL4AVpsU3IrNMZqyz yeUk87iM0jHmUlRaC5PWry A5XwdbM6WETtgOPjAJdtQRX0H94 qr5W5UOUoBPTmACH5mIJ2tX4tfL lnbjogbGVmdDsgdmVydGlj WWqbBHnnB636QXDhnGmySuBlWNu uZyBEYXRlOiAgMTEvMTQvMjAyMz wvdGQ+OWSoFWN0lIldYGEu nYGvNRmlAv4qmVmcoIqlUM6yYOL vgkhuEWMajG0sQDFmfETjsFkmJU 0lNBLmwsjlu832YsUpUWQ7 YXSrkYStU3FzeL1kDpUkVCPiBNT rC6MopMXxNSuqS246QAbsMyP7XF OberOvB6EtCVCltRpqGbX3 x2G4Ed9Ya3FgaknjH0PmnHRjNyJ yYjxxMRe6E0HdCrbusHV+PC90YW FtKX95UZf3TAS9gLgeDEsa RFOzP6ZagE4kDsYgVTBsVNEvSjh +PHRhYmxlIHdpZHRoPScxMDAlJy EqwVueGY4gGi4yEKDfLTGv xRqnlXAsEqQdi9vlOTKbQUfvYR5 joJlfE7PmuPT8HRRyb4b2Cg27W0 8xS4CjrQV+XCQdpFK3bUT0 nC1sHbAdRlH6XIsgL307TwMczFI zXpmmd5quy3tfqWg6BlL0YTByck SteVazGLI5q8QxMu99D96t IHdpZHRoPSIxNSUiIHZhbGlnbj0 gmI3ePe2+BKRinOG9kAT6uL8oOh FeBrP6QSfqR718HhSdoZIa Liigz6tob5wtoHz5WiDjDFGoaoH puMfoUYI0e9WrBd98I7MoeCzzu7 GcNsn9iv60bAOwb7C1vUP0 W7FwEVGhlzwigXJovRauPM5eYIM lonrfSTXguM0xGDRiE7b7WdWtMx K4MKfeE5UffuO2MEAygKCp SWDliDYDdC9fdrgpy0gmziixVjS cEATvZLz1XAj6NYVnoPnyDgHtWC A7DlW4ODU9jCAloG0xhPyz cguxhM7uWck+JWI3yZJtiPXMIB6 lOjwvdGQ+EMZnGOP7aVndQJntHM IwkT0jMWUnE7r0AfPzEsS7 MAnrY2TijfS3WAZzbQDrKEAagXU HhW5fjijbr0xxvuhbOoKaCURjKQ g8JPz9VESswRkxSzDtXNS6 AdH8QAY8dEDzsC7pdUqhvwkwiR2 wOyc+CaugfFfgMZL7HXs3D1EyIt r8DNAdzWrjWN4zwFFrSIsi Op4rqYssmZsoNZ4qLDWxtrqlo45 7MvFcc3nuLUUjkHZyHBzgYLL5W2 4lq2T9PYCeIXSmVNT2zAM6 mJ4ktFftgzibcUZhyHsqprWggUb uDFanRBddT527VKHbaYcsRqRbVM s3Q0BrGca2BZVzyDmcLP0x lNKqEChoOq7aqMmmiZpmYN9vZXV kmkfmw623RtDuy6seURLxePCtUY frIDD9C18me5M6DCXcCRIk LYF4pZX1tW5rqIsysmyqqEJvdCe bytBcvGucEBmvUKjrL138JGGvmN hfGcVvxYg8C0TlTpi9TKDs iRyuUC7tfFHdTEknMu4pqWiwcIg lOY0lLLMwtnfkl174HoJrq4zxQB IshUWmMPykLGS7E54aj2X8 MBTdGPDnNEH4gMM2vF2bjVkvgrb gbGVmdDsgdmVydGljYWwtYWxpZ2 46IHRvcDsnPlBhdGllbnQg RBitMMt6A1PjEibroYR+QX86NUF tFK24rOQexZBmr3tvqUw5IgWmAW YtWWV1pQgsBKjpg4BlCVIs E38obAJjc7U1BQCreZthuOXeQrS xvKG8eR4zLPngoynuy1lwhdyaDy wjr1kqmj04uV97P26qACeq SQGeSVUfEEJfYTZjfYvlrg6abO1 wIi8+HFMzsKF1kYH9lA4gAOFjUy O7HWdhP710ZdXbyRPtStvk s5lfk2ggsDs1ZlI0UERlwnCwdQj nDJH1x5CfMl77W67fTLlvCPWpBR GqSVLvRZMsmPxcev4jyD0u Ii8+LPGtfFD5xXV4rG5rKfXlVtA 9KVscO678JbFpxEVmNlinL75xM5 JvdXA+ZCLaCnp8QDDqnUnp UT1qhHLpVQvjCf2oFXO7RlJaSdN hCOykE8UpQMOobrlrmqnfdLQ4PE CuIVUjiF64Sz3niJxdRYJz wLSBsV5znjvyb3ficgzfEkByTJS nFMu3DLr9WSLibJygNySsFHX5Hf P8ZNB0tVEynR4skXsdmwtv dY6yR6RsUHVicfvwUh65hW0rDsN nDyR9HCthNpa+TVVMTEVOUywgUk HMOJHWREKJANpZVwA0L7Cs Rbr9KRPyxRhkWK5jiFZySFyoDd2 pnKmmdXgmTZ2aGGOyytkpNAXprS 0rXJEgyPJwmEkeTN4qKCQa auepy709IhMnZZH0QUYrxNGxS3J zyD2zEvIuXUOkPXMeH7VdbEQqTJ neY899HCgtElV0WZMqexPj N8FeYKCzeUmpMxL7i8A6Sj4wQV0 oJt9sTQz4XQ18OT70tIQlz3Q1hJ A7E0NoDXGwruhpebwtgCX0 JKXoMCSesQ36kQFyTHauWf5xi5H 6t601OIZxZKFomN37Wu2nwSsyWQ OufBKOkI5ybcesg1apvgyp IhHgLPAoWEc7DQb5PMEdbSdqPkG pUXI6BxR7MPP3mWSevQ7rtUckjd bpfT5zWxj+MzcgWWVhcnM8 G2QzZgc3OPIdkMloKE1lpWJcQAt mPk6avCjaaPsfNA6vHLRdvbfnCP CnrD2kIFAshRWfoEewSZ5f NVUrniywy996XmUqIUR4HNUzaBT dC9RpsM3hQiUjRQJmQNPgO1VokU YiKHuiW507HHgyHtV8ZBTr soCrZ4BiYXVicPfcLfE7u7M9Ed3 VVE0WYZZ9Q3EdYau8PJAhnFhjFF 3atSZoVNghMo3ddTaxjKze RV9eRKZkmdfwDYSfeN7hTHAfdKU pzWlwZZ3ySDWexbiik409RbGyIL G9SSOqoNRmV4GbuH9gDhOc DKIgKTXjV7EdjFCrSKwwH787XAw pFqB0AYFmqbUjZ8NfIFAufDzhMa B1i1A7Uz8EOXY1ugBvpadq C4D0dCT2sIYcfGqmxPV+NB69co2 7J1GvRtkgNnf1OMMwQON8aEX3eA 9vVJYzNBuwr3K3lKC3O3Vg ugZtss3wb1kzFTXkTFppH64asQA qj9A2DCAgfKJ4ZNKwmObhHtZdjD 93Oyc+LZImkGzhb5YkPpyh k5swf5ockPj5BbLoNFCfthRfjFa fTGB1c7IhGl00H91fBEmdBSQlLR UuNQBvJNYkzMrail8sdA9x Ii8+IHDvnIN5qTY7kR8dDvDqFdJ 5WWoiR878FsRkjRFlWslzt1vqf8 mtmFs3EfKcLMAgvyRndUls MNS3o2WoFi84X0OnmEjvc1EbIxz 9ju28sDEkj4Y0fVQ5K3JxRSAsja zneAHihNvzTD0tQXWjyqwx BVHjiO8xJSNsB0x9FiVrNuW0CAg fG9OzrfC4WMDarGQkOLHivXBRwW 8tylzzu0cuirfeOvUmZSWv VKz9NXg6EDHpnVgtVtDrPUF1VuV 5ZJD7xRMxtT5yfChupixznH2iSk c+ORj6b8jzdZSdTZ4xkZU6 EG96FQ02mSEes2K2pHG4N4RjDGE flkxkzdjfbEE1OJFjIKBdxM61Fb 3quJicBf5oCILxFQU5NPXh zXPjR1OnyT1dPcTgHJVuCRJaD8U rwRFeIIlwP401EIvnIxU4FJKxhr PzO9WpAEWpeXebSsJ1q1Y9 Zj7MUN28VI66NV00oJCgf4S9fNI 3Z5VqFAGlybhcjaypyLH8VFDgBU ZbtJ51Un2ifPvoDd1gLELr LJF4YYReoNLvA4ZnfF0aAgDdLDB rLHHgD9MifLRqTSjjY622IBszSf X8RIVfepXuW8NsBKUmoVry TrS2f3C4Yl6NTc82MS78MQ32rDJ jd6X5oNF8K1IzZXLxipcavmvwxN H2JAXrNWHeeR41Ee9kqGdw Go1zLSTiVED0KYUxdEVaL7OigI9 eUiBcVSCqTTAmJ8AxmYMjPVcqN2 55ZPzaQvY4FYKvbbMuO4Fv NVSuoXvdRkE2k8K2Cr5QNVuorvj 8A8XwJvtlkDJ+BT40HYRtIA67iU GfnPCjs8ajzZn7QaZuULJg IHN (more content not included)... [facility] Progress Note - Nurseon 01-08 Progress Note - Nurse [facility] with OV [Electronically Signed on: 01/20/2023 10:07 EST] Josefa Schuster LPN [Verified on: 01/20/2023 10:07 EST] Josefa Schuster LPN [facility] Coding Summaryon 01-14-2023 Coding Summary HTMLBase 64 KbfdrvnuHDz1hKu+PGhlYWQ+PE1 NNTIjV91oxRPoaS8jA4PFJBdZWq urDFYZPUzHLvNkeeHhLW6srKKjP XJu IC8+ZT2uHITjTryrlAJoq0G9tGA 0B88cca8eHJblqRT4UTAmPjJckk twi4vlrOr5MCfjEoydPoUa DMErtN57UVH7mC89Xu40mLTyvYQ ox1cqlEq6EiXaXDVlZSC9wUgrCS rxy3TjZCHlA17apMHoh2U5 ZFQzrVbrnOKwZuJsaBF8cA9yMDt kpvges5euemmjTjd8oy66sZIze3 L8xLI6C4EwrbY5IBJviCKj IdrzjVCOtW8wqfhun1hapwivEaD nIXUpTHc2HBy7HRVadDrpViAsWG 85NKZ3CJVlkpGxH5DiJIJk iDtjFuI2n1C5Bv9BA2DHVeeoW8O NTUFSWTwvdGQ+VU61lf73F6JtOd amCat4KQKiPVQ6zUE3wT2k WFPfWMcre3Y2hUD7F2IvzbKjjy5 nw3ywECXhWLudD22aiTRby8M4PX SwfRP2WHDnyRywZqZcdQ14 Oyc+GSMbiMbej9UcYrbch1lry8j gyCy1FypuAXQygeSjyXuyTKH6t4 HvWu2mHWDjpPW1vCA1dK7g JfCdPhD5ZCuiX684CnRsvBXaRgp dJ36cW1UdbGK+JHVyBlz7XNAheU tgAX3rD0QzGACoowrwrCRc ySotNK8vQZIwfpnmSWMhlP3mRXE bY4s0CmCcTpO6VOuqT8FoLSAknc tmXy95rT1rXsQnGlL6KUvz S7UwtnD7ZCJbhBFfZQgjJSV8P08 gh9K6QOOmYFFeMTG7yBP5jF0nsF lnbjogbGVmdDsgdmVydGlj EQilMBzkX469XGZmjIajAqEcBUa uZyBEYXRlOiAgMTEvMDcvMjAyMz wvdGQ+ZGHxTGZ1oDqmAJSo sLFdQQtnNj5kfQwsjLrzGE9nMGZ knphoYYMktI1uQFNagDGlsLgwBF 9ySTHrobtpi493SyWzYFR5 QTUmcVUpZ0TjdG9rRxNrQQPqGLW oG6HoeQPnBYmeD239GHqxWlS9HB SudpKsB7PeDQAbaBamIhM9 v5R5Cf5Vk6RpsxkuM0LwtDIwWkQ pXnztCSt0T7AsCvohvNR+PC90YW BiSL05YQg1VQF2hTbuFQzr DIZpV4ScpA2aKwLiEPMtNPMxGzv +PHRhYmxlIHdpZHRoPScxMDAlJy PriZwfES9iMw4zNJDwXHMr vHqewUNxIsHgp1yzDJEcOTivTG8 kdIatZ2IpkUD1JKHfq8w2Vt96P2 9xK0IhvCL+ATTpiAM9gFN1 lT8tOvFaVtJ6VVbfM347UtKaaZJ jZaivx9sce0ceeBm1FcK6HWWlql YddLlfAVI2y7YpWc88M14v IHdpZHRoPSIxNSUiIHZhbGlnbj0 yaC9fKg4+GZUprHS1wJN9gG7zRm IwGdQ2HJlcN296GuKbvTXn Ktqbb0hss8cjiKg8VbWvCOBeivA nzCqiDYQ5a0TzJn79X2PggRjdu1 YmIoa2yi75wREqr1Z0mVV5 P3PyZPQuswouiLAzfOwkKI4aZFO etztxXGKiwE8fWIVxT0z1GhUnZz E5MGulH4WfffE4IHExmKRw VDPhaNAFbR9cpcgib6focemlFxA oFKYiJXc3WRs0FSPkeWcoHwEfGO X2YfW5RAA2jASjsS0ycQqx wadzrV1nObq+WNY6mMPagQCPNT1 lOjwvdGQ+ECQaSYY5tTpkPUlhTQ TpnA2iZCFeT2j7NrIgRnE2 LAqhS6ClroS6LIFevECaYBJpjEZ NqC8puejaf8tjznnuFdEsKHXyBH r3ENv7TRYvxXmkQcSgDEW0 WhQ8OPT8xQRghN1xpYdqqdzbbU6 wOyc+SqzpyRqlVQK1MDm2T1DgNn q9DLHykXbsSW1xgEQfWMvv Fd3poAeucMkoAL7jFDAmnrlgx84 4AdGfm7vxTKKwbGKjKIlzUDI2E0 6qd5N7CAFgBEZmNJJ7oYU1 sS9fhYifmgergHYirAwrjbMnsTs tZWmzQGrmT107DHMlpNhrFuCxPB n5J5UsNhn3AQUpsIavZM7o hVJcRCdjTq9jkPjghSquEX7uWCX tqkuwz172VxOlb9dkCQBzdYIwDI fmELZ4Y96yk4I7WWUgMFDg DTM9hTH6gB4nbYliwabrcQMsyUv pmmXjyKabGEzuBVqtT379NQJqzV nkXeZllJz9N1HvChb5PEDm lZjrAL6dmIPxZEhzLp9hcWtewYv xCO5oAVQxekkhi908RhUje6lfSE VhhKEmFHuxCNW6G59se6X9 HBFiNJJjTSB4gFC8vM4reQxrvkc gbGVmdDsgdmVydGljYWwtYWxpZ2 46IHRvcDsnPlBhdGllbnQg TWirXMs5Q9XzDcftzJK+AY76FPN kHM97aKDexJHaw2wnjRt4IdZnAU BhDAL1aWivIGdwn2UbTXEh W94pqOCch5E6SIAtiErsuDWcQhQ wjYA7qA8cFOscwbima1opaekuPi qgn6clwa36nT08Q94yGHvp ZSJpCHTiJTWfDQNcaAnsee9wzD6 wIi8+TRErnQH3vSY4kH3sUFNdRq X5UAfkD523BjNazIRvKlas d1mea4tdaDl4YxV5RIAetoNfuVh zADD6p0KvVm59C55tAXqkZVEmQB UyGTQrDMQftLxbvp9tpK8f Ii8+HEBwhNZ2gPX7hP6lIbMfDgT 4PGyoU051HyToqOZnUftmI95dM6 JvdXA+WZJnExi7YJOxxXob UO6mfTXeOGgzBt1sGFU1YhVkZyS iYAdcX2RuAZBftizdrnalaTY2YK OjCAAyxF68Oh9mkVxdHSXb sJUZfY7yekxgm9aavhawBePsMSH fCEz2TEh6LALlzHfiMpPgJZX8Gp N8ABK1nAPzmZ7tmPoopdum vC1fI6HjBRHkmerwXk73jD4uOuB dLsS0XUfdHdc+TVVMTEVOUywgUk DVOZPTLCNHSJjYIwV5W6Cl Qym3MUWwwVtsJO0nlREeTTarIx9 lqXcdrTvvUU3oSZByqbceJMEhuI 7uFIDkqVSjdKpsLD9eJFRx zzapc875LpAkVOV2PSJqqJDzG3S bbW7gDnTsKKGnBWKyZ1GxsDWtJT fnV903ICvuOoB9CAExvbWy F6RhPXWskBfnYhA4x4P5Xw7jAA4 pXc8vGFw9MV41DT89vMLxa8G0zV H0N4TaAYVyotdwqwvfsVN7 VHDnGKFveZ66lOOiOMevQj1mk5H 0z626TTCgSFZgaU78Ke3ksCyfIM InnYZZmA0skncon6mobdzu SnYoOFOfNIy7GVz5BBQzqGjkFaV iXXX9GuG2GZK5qLBsvS8pqQfolt xlmY9kXvl+MzcgWWVhcnM8 L8SqLvd4YHLklHyyVU0ohIIgXLb jWd7xsPxifMpzSK6qHQQfcrxgAI BolB9uKCCfeTOcnDttRY4s LAEvelcpo329MwOwCIJ3MUYhgSF hE0RawN2kDtKlGSIcCOHgJ8OavG OvHCkzL046CNpwLdE8OXSp tlVzD8MbPQJtuZjjEkA4o7Z5Kn1 JSP4BNDJ4Q9ZuFrq8DCNvwHmjHZ 0cwMCdXNvePb2ipFurjIfa AL7eLZHwaqklMBOuoG3qZZTbgAX buLqdJE0nQHCbpcqrj438OoZhPY Z5XODdbOYfU2ZuuR0pVnSr JRBsLRXeM3FgyIMhTGhhO364TMo wKsB3BNXonuRmR4FxUKWsdPoaDg S7y5O4Uh9IFZD6kyGeuljh U8V7jEP4nGYszJkjpID+HU99gh7 8O6CgIwrlDce5JBDiYTG3uMY6xA 0rKTKiYFwkd4S4gAJ0P8Qi qoYxiv8aj3mnXATwKGthG18pmPC pd1W6QZYezWF2XFQroZeiJgLlhU 93Oyc+DTTmlAnvv3DhIgon f9zmm0qulZv1TsQrQFKthnXnmLz tWDL8v7CwYg60T80vHBpfLLDyWH ZpPPXyNECgvLyyfy2baD4t Ii8+GPFslFG2lEA1mT1gHyUoRbP 3SSxgH519SbPpqQEtGhsri6ufz2 wnxLa1HgMqAHLlojMnwVkm IJR2t0VzLn29K6NpnYlya1JzLkl 7oi76mXOau8U4wPB6S4OkSUUuqe ogmFZrfBtqIB3tQICuzdut IPNgbG0iBBMdW9x8ZiErMqM2WJi vZ5UdehA5KDTjsGPoDVMdyMEThB 2fpmndr1svhairSxTzYRPr KWh8KRl8USMjzOzkLxGnLDG4TgM 7KQE7lKDagW3zzRdipsuyaM1qGl c+AHq4f6qdaIDgHE9nkDR3 JO59NY47nCRfx2C3xIY3W4PuDPX ozlvgrethrSE4QLZeODLvrC01Ce 3cnApfWl0eRFQwKWM5EVCx wHAsW9FclQ7nYaNjIFDbRCUtA5W bkFEzOFlgI830CRrtInP5EZYpxn CuA0GlPERhmTtnXhR1f0T5 Eu8MOF54SQ66PU71gWEjt9A8mHK 8G6GbIVVzivgrvbtojIM3XNYuQO WtrT73Rn4jpIodLd6fLFHq KTH4VAEnoUCxA4LrzI5cBgRrZVB tMLUbJ9RzcAAyVInpR035JKelSk S6DAWiavDzU9NvGSPcaBqr ZkJ5d4Y6Ud2SOt84YX82RC94tVK ax4T4hMV4K0OtZYGfvxppsridiF R9PWKwQDFfhG69Uk3moRqu Gl1vCYYkHCL4VDOdgJLkV8QvnE3 jLkJiXDTjSFTrX4VpwZKhGOzkT8 21FEkeBgX4NRKmqsBaE1Zy QGQvqYwfDpA6k1E8Ki6YESfjiqa 2D7UgBhhbySX+TL62AUEdOY84vV HdzHQvz3onkJz1EbBgCQZs IHN (more content not included)... [facility] Physical Therapy Noteon 11-0 Physical Therapy Note [id number]#1.00OTGTIFF [facility] Physical Therapy Note [id number]#1.00OTGTIFF [facility] Provider [place] 01-09-2023 Provider Orders [id number]#1.00OTGTIFF [facility] Progress Note - Nurseon 10-2 Progress Note - Nurse Patient called req uesting refill of Lyrica. Patient is compliant. OARRS is reviewed. Order sent to Dr. Sam Herbert for review and approval. [Electronically Signed on: 12/31/2022 14:36 EDT] Thaddeus MORGAN Giuliana Rodriguez [Verified on: 12/31/2022 14:36 EDT] Thaddeus MORGAN Giuliana Rodriguez [facility] Provider [place]erson 12-30-2022 Provider Orders [id number]#1.00OTGTIFF [facility] Physical Therapy Noteon 12-08 Physical Therapy Note [id number]#1.00OTGTIFF [facility] DECLAN Antinuclear Antibodieson 12-24-2022 Antinuclear Abs, IFA Negative Normal . [facility] Comment on above: Order Comment: Reaso n for Exam HAMMOND (nonalcoholic steatohepatitis) Result Comment: Nega tive <1:80 Borderline 1:80 Positive >1:80 ICAP nomenclature: AC-0 For more information about Hep-2 cell patterns use ANApatterns.org, the official website for the International Consensus on Antinuclear Antibody (DECLAN) Patterns (ICAP). Performed at: - [facility] [id number] Industrial Economist: Jared Reeves PhD, Phone: [phone] Performed By: #### H BSAG, HEMOCHROM, SMAB, MITOM2, HBCAB, HBSAB, ALPHA PHEN, HAABT, CERULOP, HCBIGM, HCV RX PCR, IGG, HAAB, DECLAN, L-K MICRO ####[facility] ,#### SLY ####[facility] [id number] Actin smooth muscle IgG Ab [ Units/volume] in SerumOrdered By: Job Martinez on 12-24-2022 Actin smooth muscle IgG Qn (S) 8 Units 0-19 [facility] Comment on above: Negative 0 - 19 Weak positive 20 - 30 Moderate to strong positive >30 Actin Antibodies are found in 52-85% of patients with autoimmune hepatitis or chronic active hepatitis and in 22% of patients with primary biliary cirrhosis. Fmors-5-Zemlhenshec Phenotyp max 12-24-2022 Alpha 1 Anti-Trypsin 184 mg/dL Normal 100-188 [facility] Comment on above: Order Comment: Reaso n for Exam HAMMOND (nonalcoholic steatohepatitis) Performed By: #### H BSAG, HEMOCHROM, SMAB, MITOM2, HBCAB, HBSAB, ALPHA PHEN, HAABT, CERULOP, HCBIGM, HCV RX PCR, IGG, HAAB, DECLAN, L-K MICRO ####[facility] ,#### SLY ####[facility] [id number] Phenotype (P1) MM Normal . [facility] Comment on above: Order Comment: Reaso n for Exam HAMMOND (nonalcoholic steatohepatitis) Result Comment: Phen otype Population A-1-AT Concentration* Incidence % % of MM (Typical Range) MM 86.5% 100% (96 - 189) MS 8.0% 86% (83 - 161) MZ 3.9% 61% (60 - 111) FM 0.4% 100% (93 - 191) SZ 0.3% 41% (42 - 75) SS 0.1% 64% (62 - 119) ZZ 0.05% 19% (16 - 38) FS 0.05% 70% (70 - 128) FZ Unknown 46% (44 - 88) FF Unknown Unknown *A-1-AT concentration in the homozygous MM phenotype is taken as the reference normal. Percent deficiency in each phenotype is reported relative to this reference. Ranges used to confirm phenotype. Performed at: [address] [id number] Industrial Economist: Jared Reeves PhD, Phone: [phone] Performed at: [facility] [id number] Industrial Economist: Janiya Caraballo MD, Phone: [phone] Performed By: #### H BSAG, HEMOCHROM, SMAB, MITOM2, HBCAB, HBSAB, ALPHA PHEN, HAABT, CERULOP, HCBIGM, HCV RX PCR, IGG, HAAB, DECLAN, L-K MICRO ####[facility] ,#### SLY ####[facility] [id number] [place] [id number] [facility] Blood or tissue HFE gene mut ations identification by molecular genetics methodOrdered By: Job Mratinez on 12-24-2022 HFE gene targeted mutation analysis [employer] Nom (Bld/Tiss) See comment . [facility] Comment on above: Result:c.845G>A (p.C ti372Sxc) - Not Detectedc.187C>G (p.Kwy58Jnf) - Not Detectedc.193A>T (p.Boo98Uyz) - Not DetectedNot associated with increased risk to develop clinicalsymptoms of Hereditary Hemochromatosis. In symptomaticindividuals, other causes of iron overload should beevaluated. See Additional Information and Comments.Additional Clinical Information:Hereditary hemochromatosis (HFE related) is an autosomalrecessive iron storage disorder. Patients may have agenetic diagnosis of hereditary hemochromatosis and nevershow clinical symptoms. Clinical symptoms typically appearbetween 40 to 60 years in males and after menopause infemales. Signs and symptoms may include organ damage,primarily in the liver, risk for hepatocellularcarcinoma, diabetes, and heart disease due to ironaccumulation. Life expectancy may be decreased inindividuals who develop cirrhosis. Treatment forclinically symptomatic individuals may includetherapeutic phlebotomy. Liver transplant may be used totreat end stage liver failure. For preventive care,monitoring for iron overload is recommended for patientswho are homozygous for c.845G>A (p.Rkg907Ykz) and have yetto experience clinical symptoms.Comments:The most common HFE variants associated with hereditaryhemochromatosis are c.845G>A (p.Xsd021Srs), c.187C>G(p.Oix69Fmj), c.193A>T (p.Lnh04Dmr). While patientshomozygous for c.845G>A (p.Nwp728Drc) are the most likelyto present clinical symptoms, less than 10% developclinically significant iron overload with tissue and organdamage.Genetic counseling is recommended to discuss the potentialclinical implications of positive results, as well asrecommendations for testing family members.Genetic Coordinators are available for health careproviders to discuss results at [phone] ([id number]).Test Details:Three variants analyzed:c.845G>A (p.Kqr270Jke), commonly referred to as C282Yc.187C>G (p.Tzy96Srj), commonly referred to as H63Dc.193A>T (p.Yol20Zxg), commonly referred to as F51OCizvmvt/Limitations:DNA Analysis of the HFE gene (NM_000410.4) was performedby PCR amplification followed by restriction enzymedigestion analyses. Results must be combined with clinicalinformation for the most accurate interpretation. Molecular-based testing is highly accurate, but as in any laboratorytest, diagnostic errors may occur. False positive or falsenegative results may occur for reasons that include geneticvariants, blood transfusions, bone marrow transplantation,somatic or tissue-specific mosaicism, mislabeled samples,or erroneous representation of family relationships.This test was developed and its performancecharacteristics determined by [employer]. It has not beencleared or approved by the Food and Drug Administration.References:Clem BR, Ivan PC, Alireza KV, Steven LW, Angel ;[place] [employer] for the [employer] Liver Diseases.Diagnosis and management of hemochromatosis: 2011 practiceguideline by the [place] Association for the Study ofLiver Diseases. Hepatology. 2010;54(1):328-43. doi:10.1002/hep.44893. PMID: 77595871; PMCID: [id number].Eliecer G, Regine P, Michael DW, Haider H, Maxime O,Merlin S, James I, Ranjeet M, Natividad S. QN best practiceguidelines for the molecular genetic diagnosis ofhereditary hemochromatosis (HH). Eur J Hum Sobeida. 2016Apr;24(4):479-95. doi: 10.1038/ejhg.2015.128. Epub 2014. PMID: 95360222; PMCID: AMF0741009. Ceruloplasminon 12-24-2022 Ceruloplasmin 35.5 mg/dL Normal 19.0-39.0 [facility] Comment on above: Order Comment: Reaso n for Exam HAMMOND (nonalcoholic steatohepatitis) Result Comment: Perf ormed at: [facility] [id number] Industrial Economist: Jared Reeves PhD, Phone: [phone] PERFORMED BY: [place] [address] PATHOLOGIST [employer] PULLER SINCERE GREENWOOD M.D. Performed By: #### H BSAG, HEMOCHROM, SMAB, MITOM2, HBCAB, HBSAB, ALPHA PHEN, HAABT, CERULOP, HCBIGM, HCV RX PCR, IGG, HAAB, DECLAN, L-K MICRO #### [facility] , #### SLY #### [facility] [address] [place] [address] Ferritinon 12-24-2022 Ferritin [Mass/Vol] 92.4 ng/mL Normal 11.0-306.8 [facility] Comment on above: Order Comment: Reaso n for Exam HAMMOND (nonalcoholic steatohepatitis) Result Comment: PERF ORMED BY: [place] [address] PATHOLOGIST [employer] PULLER SINCERE GREENWOOD M.D. Performed By: #### H BSAG, HEMOCHROM, SMAB, MITOM2, HBCAB, HBSAB, ALPHA PHEN, HAABT, CERULOP, HCBIGM, HCV RX PCR, IGG, HAAB, DECLAN, L-K MICRO #### [facility] , #### SLY #### [facility] [address] [place] [address] Ferritin [Mass/volume] in Se rum or PlasmaOrdered By: Job Martinez on 12-24-2022 Ferritin [Mass/Vol] 92.4 ng/mL 11.0-306.8 [facility] Hep C Ab wRfx to Qnt PCRon 1 0-17-2023 Hepatitis C Virus Antibody Non-Reactive Normal Non Reactive [facility] Comment on above: Order Comment: Reaso n for Exam HAMMOND (nonalcoholic steatohepatitis) Performed By: #### H BSAG, HEMOCHROM, SMAB, MITOM2, HBCAB, HBSAB, ALPHA PHEN, HAABT, CERULOP, HCBIGM, HCV RX PCR, IGG, HAAB, DECLAN, L-K MICRO #### [facility] , #### SLY #### [facility] [address] Interpretation Hepatitis C Normal . [facility] Comment on above: Order Comment: Reaso n for Exam HAMMOND (nonalcoholic steatohepatitis) Result Comment: Not infected with HCV unless early or acute infection is suspected (which may be delayed in an immunocompromised individual), or other evidence exists to indicate HCV infection. Performed By: #### H BSAG, HEMOCHROM, SMAB, MITOM2, HBCAB, HBSAB, ALPHA PHEN, HAABT, CERULOP, HCBIGM, HCV RX PCR, IGG, HAAB, DECLAN, L-K MICRO #### [facility] , #### SLY #### [facility] [address] Hepatitis A Antibody IgMon 1 Hepatitis A Antibody IgM Negative Normal Negative [facility] Comment on above: Order Comment: Reaso n for Exam HAMMOND (nonalcoholic steatohepatitis) Performed By: #### H BSAG, HEMOCHROM, SMAB, MITOM2, HBCAB, HBSAB, ALPHA PHEN, HAABT, CERULOP, HCBIGM, HCV RX PCR, IGG, HAAB, DECLAN, L-K MICRO #### [facility] , #### SLY #### [facility] [address] [place] [address] [place] Hepatitis A Antibody Totalon 12-24-2022 Hepatitis A Antibody Total Negative Normal Negative [facility] Comment on above: Order Comment: Reaso n for Exam HAMMOND (nonalcoholic steatohepatitis) Result Comment: Comm ent: The HAV total antibody assay detects both IgG and IgM but does not differentiate between them. A negative result suggests susceptibility to infection. A positive result could be due to vaccination, previously resolved infection or active infection. Testing for HAV IgM should be performed if active HAV infection is suspected. [facility] offers profiles that will automatically reflex positive HAV total antibody results to IgM (e.g., panel #[id number] HAV Antibody w/ Rfx). Performed By: #### H BSAG, HEMOCHROM, SMAB, MITOM2, HBCAB, HBSAB, ALPHA PHEN, HAABT, CERULOP, HCBIGM, HCV RX PCR, IGG, HAAB, DECLAN, L-K MICRO ####[facility] ,#### SLY ####[place] [id number] [address] Hepatitis A virus Ab [Presen ce] in Serum by ImmunoassayOrdered By: Job Martinez on 12-24-2022 HAV Ab IA Ql (S) Negative Negative [facility] Comment on above: Comment: The HAV tot al antibody assay detects both IgG andIgM but does not differentiate between them. A negativeresult suggests susceptibility to infection. A positiveresult could be due to vaccination, previously resolvedinfection or active infection. Testing for HAV IgM shouldbe performed if active HAV infection is suspected. [facility] that will automatically reflex positive HAVtotal antibody results to IgM (e.g., panel #[id number] HAVAntibody w/ Rfx). Hepatitis B Core Antibodyon 12-24-2022 Hepatitis B Core Antibody Negative Normal Negative [facility] Comment on above: Order Comment: Reaso n for Exam HAMMOND (nonalcoholic steatohepatitis) Performed By: #### H BSAG, HEMOCHROM, SMAB, MITOM2, HBCAB, HBSAB, ALPHA PHEN, HAABT, CERULOP, HCBIGM, HCV RX PCR, IGG, HAAB, DECLAN, L-K MICRO ####[facility] ,#### SLY ####[place] [id number] [place] [id number] [facility] Hepatitis B Core Antibody Ig Mon 12-24-2022 Hepatitis B Core Antibody IgM Negative Normal Negative [facility] Comment on above: Order Comment: Reaso n for Exam HAMMOND (nonalcoholic steatohepatitis) Result Comment: Perf ormed at: - [facility] [address] [id number] Industrial Economist: Jared Reeves PhD, Phone: [phone] Performed By: #### H BSAG, HEMOCHROM, SMAB, MITOM2, HBCAB, HBSAB, ALPHA PHEN, HAABT, CERULOP, HCBIGM, HCV RX PCR, IGG, HAAB, DECLAN, L-K MICRO #### [facility] , #### SLY #### [address] Hepatitis B Surface Antibody on 12-24-2022 Hepatitis B Surface Antibody Non-Reactive Normal . [facility] Comment on above: Order Comment: Reaso n for Exam HAMMOND (nonalcoholic steatohepatitis) Result Comment: Non Reactive: Inconsistent with immunity, less than 10 mIU/mL Reactive: Consistent with immunity, greater than 9.9 mIU/mL Performed By: #### H BSAG, HEMOCHROM, SMAB, MITOM2, HBCAB, HBSAB, ALPHA PHEN, HAABT, CERULOP, HCBIGM, HCV RX PCR, IGG, HAAB, DECLAN, L-K MICRO ####[facility] ,#### SLY ####[address] Hepatitis B Surface Antigeno n 12-24-2022 HBsAg Screen Negative Normal Negative [facility] Comment on above: Order Comment: Reaso n for Exam HAMMOND (nonalcoholic steatohepatitis) Result Comment: PERF ORMED BY: [place] [address] PATHOLOGIST PARTS PULLER SINCERE GREENWOOD M.D. Performed By: #### H BSAG, HEMOCHROM, SMAB, MITOM2, HBCAB, HBSAB, ALPHA PHEN, HAABT, CERULOP, HCBIGM, HCV RX PCR, IGG, HAAB, DECLAN, L-K MICRO ####[facility] ,#### SLY ####[address] Hepatitis B virus surface Ag [Presence] in Serum or Plasma by ImmunoassayOrdered By: Imsonal Martinez on 12-24-2022 HBV surface Ag IA Ql Negative Negative [facility] Hepatitis C virus IgG Ab [Pr esence] in Serum or Plasma by ImmunoassayOrdered By: Imad Asaad on 12-24-2022 HCV IgG IA Ql Non-Reactive Non Reactive [facility] Hereditary Hemochromatosis,D NAon 12-24-2022 Hereditary Hemochromatosis Normal . [facility] Comment on above: Order Comment: Reaso n for Exam HAMMOND (nonalcoholic steatohepatitis) Result Comment: Resu lt: c.845G>A (p.Aef562Yii) - Not Detected c.187C>G (p.Gao80Yjr) - Not Detected c.193A>T (p.Xle79Nkd) - Not Detected Not associated with increased risk to develop clinical symptoms of Hereditary Hemochromatosis. In symptomatic individuals, other causes of iron overload should be evaluated. See Additional Information and Comments. Additional Clinical Information: Hereditary hemochromatosis (HFE related) is an autosomal recessive iron storage disorder. Patients may have a genetic diagnosis of hereditary hemochromatosis and never show clinical symptoms. Clinical symptoms typically appear between 40 to 60 years in males and after menopause in females. Signs and symptoms may include organ damage, primarily in the liver, risk for hepatocellular carcinoma, diabetes, and heart disease due to iron accumulation. Life expectancy may be decreased in individuals who develop cirrhosis. Treatment for clinically symptomatic individuals may include therapeutic phlebotomy. Liver transplant may be used to treat end stage liver failure. For preventive care, monitoring for iron overload is recommended for patients who are homozygous for c.845G>A (p.Bes342Njp) and have yet to experience clinical symptoms. Comments: The most common HFE variants associated with hereditary hemochromatosis are c.845G>A (p.Htc906Ihs), c.187C>G (p.Gvl48Nqg), c.193A>T (p.Vqj30Jte). While patients homozygous for c.845G>A (p.Heu960Htf) are the most likely to present clinical symptoms, less than 10% develop clinically significant iron overload with tissue and organ damage. Genetic counseling is recommended to discuss the potential clinical implications of positive results, as well as recommendations for testing family members. Genetic Coordinators are available for health care providers to discuss results at [phone] Test Details: Three variants analyzed: c.845G>A (p.Xsc914Xvy), commonly referred to as C282Y c.187C>G (p.Kiv76Jqv), commonly referred to as H63D c.193A>T (p.Zfj99Tcl), commonly referred to as S65C Methods/Limitations: DNA Analysis of the HFE gene (NM_000410.4) was performed by PCR amplification followed by restriction enzyme digestion analyses. Results must be combined with clinical information for the most accurate interpretation. Molecular- based testing is highly accurate, but as in any laboratory test, diagnostic errors may occur. False positive or false negative results may occur for reasons that include genetic variants, blood transfusions, bone marrow transplantation, somatic or tissue-specific mosaicism, mislabeled samples, or erroneous representation of family relationships. This test was developed and its performance characteristics determined by [employer]. It has not been cleared or approved by the Food and Drug Administration. References: Clem BR, Ivan PC, Alireza KV, Steven LW, Angel ; [employer] [employer] Liver [employer]. Diagnosis and management of hemochromatosis: 2011 practice guideline by the [place] [employer] Liver Diseases. Hepatology. 2011 Sep;54(1):328-43. doi: 10.1002/hep.79254. PMID: 83091561; PMCID: [id number]. Eliecer G, Regine P, Michael RODRIGUEZ, Haider H, Maxime O, Merlin S, James I, Ranjeet M, Natividad S. [facility] best practice guidelines for the molecular genetic diagnosis of hereditary hemochromatosis (HH). Eur J Hum Sobeida. 2016 Jun;24(4):479-95. doi: 10.1038/ejhg.2015.128. Epub 2014Sep 14. PMID: 47380434; PMCID: MVV1880370. Performed By: #### H BSAG, HEMOCHROM, SMAB, MITOM2, HBCAB, HBSAB, ALPHA PHEN, HAABT, CERULOP, HCBIGM, HCV RX PCR, IGG, HAAB, DECLAN, L-K MICRO ####[facility] ,#### SLY ####[place] [address] Reviewed by: Paddy Dobbs, PhD Normal . [facility] Comment on above: Order Comment: Reaso n for Exam HAMMOND (nonalcoholic steatohepatitis) Result Comment: Perf ormed at: - [facility] [address] [facility], [facility], [place] [id number] Industrial Economist: Fransisco Espinosa [facility], Phone: [phone] PERFORMED BY: [facility] [address] [place] [address] PATHOLOGIST PARTS PULLER SINCERE GREENWOOD M.D. Performed By: #### H BSAG, HEMOCHROM, SMAB, MITOM2, HBCAB, HBSAB, ALPHA PHEN, HAABT, CERULOP, HCBIGM, HCV RX PCR, IGG, HAAB, DECLAN, L-K MICRO ####[facility] ,#### SLY ####[address] IgG [Mass/volume] in Serum o r PlasmaOrdered By: Job Martinez on 12-24-2022 IgG [Mass/Vol] 1634 mg/dL [phone] [facility] Comment on above: Performed at: [address] [id number] Director: Jared Reeves PhD, Phone: [phone] Immunoglobulin Chris 3 Immunoglobulin G 1634 mg/dL High [phone] [facility] Comment on above: Order Comment: Reaso n for Exam HAMMOND (nonalcoholic steatohepatitis) Result Comment: Perf ormed at: - [facility] [address] [place], [place] [id number] Industrial Economist: Jared Reeves PhD, Phone: [phone] Performed By: #### H BSAG, HEMOCHROM, SMAB, MITOM2, HBCAB, HBSAB, ALPHA PHEN, HAABT, CERULOP, HCBIGM, HCV RX PCR, IGG, HAAB, DECLAN, L-K MICRO ####[facility] ,#### SLY ####[place] [address] Liver-Kidney Microsomal Abon 12-24-2022 Liver-Kidney Microsomal Ab 1.2 Normal 0.0-20.0 [facility] Comment on above: Order Comment: Reaso n for Exam HAMMOND (nonalcoholic steatohepatitis) Result Comment: Nega tive 0.0 - 20.0 Equivocal 20.1 - 24.9 Positive >24.9 LKM type 1 antibodies are detected in patients with autoimmune hepatitis type 2 and in up to 8% of patients with chronic HCV infection. Performed at: [address] [id number] Industrial Economist: Jared Reeves PhD, Phone: [phone] Performed By: #### H BSAG, HEMOCHROM, SMAB, MITOM2, HBCAB, HBSAB, ALPHA PHEN, HAABT, CERULOP, HCBIGM, HCV RX PCR, IGG, HAAB, DECLAN, L-K MICRO ####[facility] ,#### SLY ####[address] Mitochondrial (M2) Antibodyo n 12-24-2022 Mitochondrial (M2) Antibody 21.8 High 0.0-20.0 [facility] Comment on above: Order Comment: Reaso n for Exam HAMMOND (nonalcoholic steatohepatitis) Result Comment: Nega tive 0.0 - 20.0 Equivocal 20.1 - 24.9 Positive >24.9 Mitochondrial (M2) Antibodies are found in 90-96% of patients with primary biliary cirrhosis. Performed By: #### H BSAG, HEMOCHROM, SMAB, MITOM2, HBCAB, HBSAB, ALPHA PHEN, HAABT, CERULOP, HCBIGM, HCV RX PCR, IGG, HAAB, DECLAN, L-K MICRO ####[facility] ,#### SLY ####[place] [address] No Panel InformationOrdered By: Job Martinez on 12-24-2022 Hemochromatosis Note Paddy dobbs, phd . [facility] Comment on above: Performed at: TG [facility] [id number] [place], [place] [id number] Director: Fransisco Espinosa [facility], Phone: [phone] Hepatitis A IgM Antibody Negative Negative [facility] Hepatitis B Core IgM Antibody Negative Negative [facility] Comment on above: Performed at: CB [facility] [address] [place], [place] [id number] Director: Jared Reeves PhD, Phone: [phone] Hepatitis B Core Total Antibody Negative Negative [facility] Hepatitis C Interpretation See comment . [facility] Comment on above: Not infected with HC V unless early or acute infection issuspected (which may be delayed in an immunocompromisedindividual), or other evidence exists to indicate HCVinfection. Serum pcrkp-4-wjsncyoejzo me asurementOrdered By: Imad Asaad on 12-24-2022 Alpha 1 antitrypsin [Mass/Vol] 184 mg/dL 100-188 [facility] Serum hepatitis B virus surf deric antibody detectionOrdered By: Imad Asaad on 12-24-2022 HBV surface Ab Ql (S) Non-Reactive . [facility] Comment on above: Non Reactive: Incons istent with immunity, less than 10 mIU/mL Reactive: Consistent with immunity, greater than 9.9 mIU/mL Serum homogeneous pattern an tinuclear antibody (DECLAN) titerOrdered By: Imad Asaad on 12-24-2022 Homogenous nuclear Ab pattern (S) [Titer] N/A [facility] Serum mitochondria M2 IgG an tibody assay (units/volume)Ordered By: Imad Asaad on 12-24-2022 Mitochondria M2 IgG Qn (S) 21.8 Units 0.0-20.0 [facility] Comment on above: Negative 0.0 - 20.0 Equivocal 20.1 - 24.9 Positive >24.9Mitochondrial (M2) Antibodies are found in 90-96% ofpatients with primary biliary cirrhosis. Serum nuclear antibody titer Ordered By: Imad Asaad on 12-24-2022 Nuclear Ab (S) [Titer] Negative . [facility] Comment on above: Negative <1:80 Borde rline 1:80 Positive >1:80ICAP nomenclature: AC-0For more information about Hep-2 cell patterns useANApatterns.org, the official website for theInternational Consensus on Antinuclear Antibody (DECLAN)Patterns (ICAP).Performed at: [facility] [employer] [id number] Director: Jared Reeves PhD, Phone: [phone] Serum or plasma alpha 1 anti trypsin phenotyping identification by immunofixationOrdered By: Job Martinez on 12-24-2022 Alpha 1 antitrypsin phenotyping Immunofixation Nom Mm . [facility] Comment on above: Phenotype Population A-1-AT Concentration* Incidence % % of MM (Typical Range) MM 86.5% 100% (96 - 189) MS 8.0% 86% (83 - 161) MZ 3.9% 61% (60 - 111) FM 0.4% 100% (93 - 191) SZ 0.3% 41% (42 - 75) SS 0.1% 64% (62 - 119) ZZ 0.05% 19% (16 - 38) FS 0.05% 70% (70 - 128) FZ Unknown 46% (44 - 88) FF Unknown Unknown*A-1-AT concentration in the homozygous MM phenotype is taken as the reference normal. Percent deficiency in each phenotype is reported relative to this reference. Ranges used to confirm phenotype.Performed at: [employer] [id number] Director: Jared Reeves PhD, Phone: [phone] at: [address] [id number] Director: Janiya Caraballo MD, Phone: [phone] Serum or plasma ceruloplasmi n measurement (mass/volume)Ordered By: Job Martinez on 12-24-2022 Ceruloplasmin [Mass/Vol] 35.5 mg/dL 19.0-39.0 [facility] Comment on above: Performed at: [address] [id number] Director: Jared Reeves PhD, Phone: [phone] Serum or plasma lipoprotein a measurement (moles/volume)Ordered By: Job Martinez on 12-24-2022 Lipoprotein a [Moles/Vol] 1.2 Units 0.0-20.0 [facility] Comment on above: Negative 0.0 - 20.0 Equivocal 20.1 - 24.9 Positive >24.9LKM type 1 antibodies are detected in patients withautoimmune hepatitis type 2 and in up to 8% ofpatients with chronic HCV infection.Performed at: [facility] [id number] Director: Jared Reeves PhD, Phone: [phone] Smooth Muscle Antibodyon Smooth Muscle Antibody 8 Normal 0-[address] [facility] Comment on above: Order Comment: Reaso n for Exam HAMMOND (nonalcoholic steatohepatitis) Result Comment: Nega tive 0 - 19 Weak positive 20 - 30 Moderate to strong positive >30 Actin Antibodies are found in 52-85% of patients with autoimmune hepatitis or chronic active hepatitis and in 22% of patients with primary biliary cirrhosis. Performed By: #### H BSAG, HEMOCHROM, SMAB, MITOM2, HBCAB, HBSAB, ALPHA PHEN, HAABT, CERULOP, HCBIGM, HCV RX PCR, IGG, HAAB, DECLAN, L-K MICRO ####[facility] ,#### SLY ####[facility] Rem[address] Coding Summaryon 12-13-2022 Coding Summary HTMLBase 64 QzgjngfjPRg9bSe+PGhlYWQ+PE1 RRSClK25gfZCsrP6dG5IDAWjCNv xhRUKLYByGYqTovxEmNL6upYQqE XJu IC8+FZ5gBOEmLrgpzSEnr5K3mHJ 6U25yip5eFIutxEA2HPPyOoIumx czh6mvuOm3VMmmClqjDbCg NJJwiN99WHX2aU92Sc17cRNaxFX ns9lrmJh7VlPdKKJgVSB4fYmzSD dcy6EnZRPnL01eiFAkj6Z9 KMKlmKedtVAqVuNzrGO3hN2cMFa lqodrq3vllmslTmk3jr31qKEkg1 B3dQW2K7JktdU5IEEqsSZl XhzlmNUArP5kulkoj9oitppoRrY jIYNpGHm9ADi6CNBeaFyrKjKrCC 78MVC1XIDtzbKvX3ImZOEd kNamJkB8h3D7Bt4TF6YTZcjrX5O NTUFSWTwvdGQ+KY12mh14T5KtLl ucPot3RKYoCPY0mHE7mT8p UCIwAJjiu8S0zZC6P2NfpoSrjc8 gg8qbNTApXFkpK77viUJso5N3OT UurYF1BIDfhTvaHbQcqS72 Oyc+EEOilXoya4JxTzjow5imx1r kqYn0KwotRWPobwSyeFvdFFZ9g4 MxOy7rKGLwkBE3qBL4kJ6y HjZtEbR9BPovW998ZzXcxEYjGtk eM94oB5VpoTX+ORGrWvh3AEYpiR nmQS6gP9ZaZNUjpsoisKFr zHguTM0iMIJcwxdaZXSreU8dKON aH3n7ZeExEnG8FJhyX8WcBBEbnn mlMe16gY0sSvNrSiY8NYza R0FjidC8HDLavIHoTVnpBXZ3P49 ac5T7EVBgCGXtFED3fSJ6wC4nzM lnbjogbGVmdDsgdmVydGlj MOktUGbyT414BSQibOnxBvWsSMu uZyBEYXRlOiAgMTAvMDYvMjAyMz wvdGQ+ZZBzOKP3zQmpYOYx kGPpQJqdYk2tjTxckDpeRX0uYWM dqpfhDJPpzK3yPXEezYAgsGuuAM 4dBATfdpbwi998XbMkXQG7 CICiiDWsP4YgkD5uXlLyQKDbJZF lA5XdnIFxACsrV211VEtiPuZ2MZ PbmrJhC2FpVXYshKimSsS4 p8T0Ti7Rk4JgrxxvT4DbtLDaWaP yDgkkVVr0P6AkWhtyoFT+PC90YW RsST37RIb7TBF4vQmkPFbr CCJqI1EjoK5bUsIwUSTcXBPxEks +PHRhYmxlIHdpZHRoPScxMDAlJy ShzDtdKQ0sLr3mJJHyLDVp xIhkvRJuWiUzk9iwJGZdUOeoTX1 yaDywW3NhlZI5QFVoe7u5Xg65D8 5aV2RcqII+ILEjnUB7kSG4 aE3aMgTeRlC6TCgbE367JzXqqKM eNpapm9ceu9tzsUs3DyX4VGOhou LcbHskKTS9d5WnYu98M28z IHdpZHRoPSIxNSUiIHZhbGlnbj0 klI0eAq2+POIeeJY7fJZ2lX1dJi MtEmT3RDxyM426TmZwyWQi Ldxai8vxe3phnJr3IzAmSLMejwY bnYdoSIA3i0LmPb64W6TgpHmwx7 NlXik3pn72pOPot3A5hDL3 Y8ZqBJVzqavlfVFrhBgeVC0wQVL dqrgqVGTdkA5nQDFpR5v7YhFyGt F8THxqD3ElnsH7RSOpgGCw GSGtqVXXbC3vrbpon0igvnoyLlM bWOSmHIm8GTy3RXOcfUdsUmOvPB P3BoU7FWJ1nXBkmT5rnCvx qnkcjY6rRep+WEK4dFRgzVYFMP4 lOjwvdGQ+ZPEaWPV7qQvpJLeaOH YzsG7dSHCoW7h9ZlBaVwJ5 XKytQ0NjguP3BQTwtXJvZEPclJE GkD8evcuwl3tmxqsfWwOtSTZwGK w9ZTd3TVCefHfjPoAeORB9 FgN6XUQ5pGAzxV3rzBcbzugnqS9 wOyc+GgxksBsrRED0PYq8X9QfOn p1RENcmZyoTS6qyPBsKYhx Mc8ycTzkaRyaLG2sVMXwrxrvk89 0RyYoa3apFHVwfHBjSMvvZGB0O1 5ro2W0GYOnVGJbJIC5tZZ7 aS8reFadvttbcHHbeIygdzOpyZp pZUloYAevE571LEQwaPqfLxDuMT b5C5AaJmb3PEGkaOzaWE4y hVHuNSrtAr4uzTfpnKqvOK8qRCX pzplvq210BkXgq2bfPUMokRTcES meACE9Q67cf1N7SQGzLJGt ZHZ2gXT9xN0jtIeemllqzYIkpSt hxhSofHoqNCosRJvvX741EFVfaT apNbTzdQh7M1QaEzu4GLXj sEixAD0khIDlSXgeTb4xnRejdDn zIA7mLXLypqsyg353NgFgf8etYD JmhYZaPVxbHTA0K72dn2N9 CTOxEFJsKKH7bES3qY3omTpaitj gbGVmdDsgdmVydGljYWwtYWxpZ2 46IHRvcDsnPlBhdGllbnQg ANvpZLu2H9VjLsneoTA+PW62UVK eMH35fUFqnRZzh3mqvAb4JmBuWP RmMDU4rQlsHUkfx3FzKERr W70rmJPnb4H4AGZldNpzcPTiMeM rjPO5aY1wDRxvrjvql5osihjwKm ugb4aabj07vB73I36jUQpa HWLvZYGgYJDnURYhgUzoat3puX0 wIi8+HTLtqZA1kLS2fV2xRDNiHr B9SNeiM330EoJlgQMuFobo e1jka0hyaVg6PgN3BVVbojPxcSq aXYP8z2QcEo47N53eDFfuMYYjHR UoKZTyVTIjlEhdaz4xvK7a Ii8+UKFynZS3bFF1iX9hBwUnRgG 4YLkxB011ZtFukHYjJossN37qS8 JvdXA+VCGyHeh6EKVxnMpv JM5zsVKgELglFi5rLFW4IzVnYnK xRLgmK2QyNTVskloqvytscXW0QD WlJWScvN22Gl1nhKoqKNQo vZDItF6cgnnnk1fpobabTvKkBRG qXRy0FFy2TGPgcRlsJqIaLGM3Il X8VPJ8zPQffG4bnSfpvtvd yL9rI6WpXADwwaboQv79vN3vTkX uCzW2PAuzGwj+TVVMTEVOUywgUk GDFGOAUVCGQAnLBhB3J4Il Ouj7UUGlfHplOD8tiIXmLNuxVt3 odAwqcOkpYH3kQHWcbyrySYRxbI 2iMTOnlMWesIuyLE6oRCJm kubur314FoKnBAP5VINooDIjY7Y acD4bTuNnCEKlLEHcR7LakKIoJS evQ054TPqiXwM2ELZbxtTy Z7XpEKLpsJvhPcZ1c0I5Sf6xZB3 aUs9fFSl1EU53EL56cBKgv9S0zL S9I2XsTLLswvcjrwuaxJN8 RRMdQYAvyB96rFWvKFiaRb3rf5Z 4u184CVMlNWTjoQ05Nk6usYfxRA KniBEVzX8unecsp7abzozh KuFhNRRtTFk5YVw1XWLgeGstNgT pNAQ1HfL8OUS0cWKdrH0heTokir rhqW9dAqx+MzcgWWVhcnM8 O4JsTzq4VZOsyApfRE0cjWUfVWz sCu4nvShbpSqhJQ8qFAXnptryHM TagI1nAQTuxCBlaQhpUF0a MURlojbfm435FfPuKSG7XWEksTH gC1YedP4rIeTbNCLrZGStV3RtmL DbNInuW709IAziEpL1PDTv afMqM4PsIUNonPdhFaJ2f6E1Rc8 TTL4JAXN5V2RhAuv1ZEOwxDybOR 9tnODwEEzpBm4hbEvrjXfi PO5uVBJqpveaKWXbgV1iYFJquRO kdTriEU4zXBUjfbxdw417DbYwWY P7VKIyqVCgW6MdrR2eTqHn CRQqEVScE9DmpCFiOHzlX435NEj hWdE5HGPjzeGuX3WoNFEcxNwaUq Y6a7D8Ch6KMItvfKE+PC90 tu97A3TuLlabClj5MMLiOQP3qLG 8iP8mMAQiPKodr2F4uJG7I7Hkuu Srvn6ea3shRVUeSVwiI62r gRAtb6H8DXQipYX1CEHvvGqtFyA exD19Vms+CCAltOseh9CnZhrbj8 kle9hptUx0JwLdCASzktOx nMijETJ9b0GzDn06I24nBMfjMVN uTSSlAICfKVCsgVwhuh8viG0aGy 8+TFAsbFM6uQE7jQ2yXySq AfF1XXsgY105PrGtyIZtJgcgj8e yl5crrSh8KzVxZVNessAcoQskXT J3x6AoBm35L7LlePfpn6Az Ufp5hj21lCHha6X6mOS0J1SoUIX xdpddbZXhqDztIE6kUCUidcjpJJ FjbF8eLHCfY9w6ReVsSrU0 GIjfZ1CxfaX5AWZiyTLaUJGxiAG XeF1ewdxwx1oshgupNzWxDRKhMN c6JXl7FWSpoOtbBiWaUHY3 YiD2KQY3bMIaiG6wxFkbsapggN4 wOyc+PAr7i9qljLYkYV4thTW7KY 13XC75yOQbe4N8qLM5U7Ow XEHvbbyqmtqlbAK9ETQsSBEfaN1 2Wh0hlGbvWd9bLWOgVGL0RZUhxF KxU0TzvW5kJhCsYBEgLGBa Z0NacYSuYCmjF427PNlyGpH0IMS hyeGjH6VyTCAqyFbtStH0d1J8Sw 4VYY57OA54OM43wZZbo6Z1 dOO8G5LmESWwrnhmbcmqwCR3EPJ qZWQltK88Fa0zmDymBy2aLSWqTU X7HZYqpRQbA0MrwY0vLcXr MKKyDTMqT6JepWRdOCvyE740DBj aQgU7VZSlymWiQ5HcIPEekJhxLz J0a9L4Pq7SUk71HL41MW01 eGKif0V0vTL4U6LyKSQtlyhmqdi sbNX3VNXeJBRsiU86Qn5noJecUw 6iNERhKNR3XUAejSWfZ1Rw aF3xKdIjZYBnZXUoN1EarPNcFMc kT181TPruTzW4VQDmghFyV4EqOC MdnEdpYjH3s0F3Tx2UOVqb vpb7E3RhFwxgjMV+EB29XFQvYR3 9sXBbaZVgg2okaQv6XhBzSBPjIO N6qIsjNXaml7EkKCAsV11j bGF (more content not included)... [facility] XR Sacrum/Coccyx Minimum 2 V [facility] 12-11-2022 XR Sacrum/Coccyx Minimum 2 Views Examination: Sacrum/coccyx. History: Pain. No history of trauma reported Comparison: None Technique: 4 views of the sacrum/coccyx are submitted. Findings: With the movrk-cb-skpa there are some degenerative.seen in the posterior facets the lower lumbar spine. There are some mild degenerative sclerotic change on the left side of the left SI joint.. Left greater than right. The pelvis shows no acute fracture no focal bony abnormality. Sacrum/coccyx shows no acute fracture. No focal bony abnormality. IMPRESSION: MILD OSTEOARTHRITIS OF THE SI JOINTS LEFT GREATER THAN RIGHT NO ACUTE FRACTURE SACRUM/COCCYX Final Signed (Electronic Signature): Mohit Mora MD 12/12/22 10:34 a Technologist: LT LÓPEZ [facility] Coding Summaryon 12-06-2022 Coding Summary HTMLBase 64 BagukiqeYFe2uEp+PGhlYWQ+PE1 OEZVeI94reRKieP7lE0EMWIkKNq vuKXPJYIcQPrDoijPdCC4teNRjH XJu IC8+SG7tALXmWgkaiRQmt4X2zYZ 0D77max9sRYyqeMW6KZHhExTiwm pqk5imgPo3AWjcRjqdSoXp KRRpnB75XBO3mM66Xx55cXCapKX ax6mhxUz2WcHlZPFmYZM9nGutTQ prh3YfVBWeH29kdLRsc9Z1 LURyiEpicXCiVxPlcPJ5vI0nYUm sphkvl1uoyfqaKsm7tt96qBUbn9 X6lPJ7N1BjwwS4XYUfhLNb NldclZDUoU2ynqaxj9ntktsvTdU nKDTxMJy4HRs6BEVrkHnfEwQqTS 98HDY0FZEbioPyR7LxMDYm cWebHwZ1v4X8Gf9WK2ZXRiyhG3Y NTUFSWTwvdGQ+CY45bc64X8LgOs cwFii9ZPQjFRI3dKB7mS1h AWJvYNlxx5Z0pUZ1Q2RpnfRtuc5 bx3dpTRDsBFghE73xeXYwd8S4HL DmnIC1WVRsgNkcBaLyoS28 Oyc+LKHzlIlly4PtKtxns4bwt0r jwOy2EkviHFGtnlMdzWoyVJO8t4 LiXo7xKNWssQM1kOO9iQ2t PeOyRaY4FGawU074MfOexTRoKon tI47tX5HnvMM+AFUvPxz7GLAmjF qdVM5yC1IfBKAcloylqKOz pGarXH7kJIHjcuukCMAeqZ1nJUY pA6o2KdLhVcH8KKqkW0JgKMDmmv cbLk02vC5bZmYqRwD0UBlz A6LeguC3LQFyrKCzMCuoGXS0C32 tk9A3LVAmVYZdYMY0kBZ2oA6ccB lnbjogbGVmdDsgdmVydGlj XQwvIJiqY328HMXhdRpdNsIbLDw uZyBEYXRlOiAgMDkvMjkvMjAyMz wvdGQ+PKVrXLJ9hOtkBJOy eGCfJHrqIr0igEmbkLqzOF2fJDD chzijREJovA5kKEQukBSskLxlXK 7oKMKeqwhox932OcPeUEG5 VRFmaQRfI7AmcS5xMwSyZPEcCIM rR0SryUOnUIalV270ZGcsUbR7RZ GdfuJkW0RsLMRvkTviEzZ3 m7W2Qi2Bt8PeaoxmK6PyvJWkMbN vAeyrMTs5T9QuSzajmZO+PC90YW BlYB40OQn7JNU0zDpaMGwu BPWoK6TqyJ3nTnHeHXHeVKTqLrx +PHRhYmxlIHdpZHRoPScxMDAlJy EywVmcYA8eRn6eTOWtTJNg jNjrwHHkNtJpu6wlESEcXBktXS9 xyOaoX4YkkPC4YEQxl7i7Ke50N4 1vL3MrqZJ+INHcqRY4pYE3 hK2iPpApTuI5WKxfI505IxPbnUK iQqlgp5dja2wzwOe0ZbM4EQHlpb CwoHoyXBW7q9WkTg94J20w IHdpZHRoPSIxNSUiIHZhbGlnbj0 irN6dCh9+LHKeeWB2nDN6mA3oMb RdRnS3TMaxM399BjLieGIg Fmhcp5kxb2vkcRc8VpDcFLSttdN hmXjlUTX5d1SgZe68F5RvqUfza6 KeWsj4cm53fBDsg4Y1oPY1 B6PoUTHjuszkaAXaxKbcYG2nYUH moqxkWOAndJ8jLHPuI3x4OwNwCj O4HLnqT9RfrcR0QQZjzIHo FRCesHOFhK3wpcjya7upgdhiVvQ fSIFlWTp9QOl5XYKqvLfeKlBcJU H0VnI8JHW5dZVqaL2loVyc ysldaW4xUne+PON4qNItbQEKEZ6 lOjwvdGQ+KWYpCRC0bTssAFtjKH GbpK1xBDJmI1t9JjQtRqL7 DFxlL7UtaeG6PHAsdVVdNZSbqGN UeG6vuwjuv6lapyniKfYtPLLgDT u9AEr3OIWynIbvVzMsCYR3 VcV5XXG6bXPoyH1vsMnfozgxmJ3 wOyc+BiiejFyfPQQ9RZk7B2WzBg e1TLSugXitLO2xdWDlNIdx Ep5yiWgooKcsPN0sXCJezsstd90 9HuDga9kaDFGmfFJyKRdjGND2J9 1wt6O3BUIuDNSwYFE4cHH2 pI1grPndqtaulOAccFcjmiKcmTt aIGukXVewX554NIKdpEuqTsSeGT m5F4LjYzv1ZXUejBcpKG2e dAIuYRpbRv7zqZahzJvpRX5oDNL ipnpfs601UcQwe8deHRTyvZPsBG szZVZ4H44te2L7NGCaSGXf FZQ9hUS4dD5oaSwmszzoxFRqrHd bleGxcEbcGQmlYKyhU352OPGkuZ maLlQedCr4P5CjNfq4FEOy hFxaTS4wfROdMFmiFi6teGwlhXg iZY3pMVXlmnbjg090YdFuk8uyHZ BtfQVwGEnmMKM1D99ty3A7 GHGmTJTxPCQ5zTQ0vJ2fuUeqpsr gbGVmdDsgdmVydGljYWwtYWxpZ2 46IHRvcDsnPlBhdGllbnQg PUhuJSo1X9IrJsuasPQ+IL05BYV fFB23rRQahULcj3fpjIh2TlOlOK ShAQE1gUxkSMtak3YaZLAj Q25ddBCjb4P6YNPjrMnvkNHbVpE jhAR8zV7gGNknknzdq6dimfxuPj xep2vrvt70sL36H94aEUyu ZWDkJQYgQFRqMGKnwPezfc7jsH7 wIi8+CCAblJM2zIL0uA0kHNWgOa F7EGdlJ679QbLoqDLdQxti h6hiy4irqYq3YlW0HMOhqlJaxWl jMZE1s8XzOl17M63kSGioMCVrCD RoPMVmQOWkyCoimd3lnU1n Ii8+CWPzuLF7hSR2xE4iNsMlCoD 0HAtrE163ZqWstWQdIeewN44bT2 JvdXA+NNPjZme6IYPexGrc SW2qoRTxSRwuUj2oRDH2QkCzSsG rPCvmI4HqFNWadeyfdxhetJN9OT KnBFRlhF06Iu9buXinOODt pFFCcG5uoeoum5djqqfwIbVcMQL pDDy8QEp0WWLjqDujGmJfIPE0Mj K7OOC5gQSnyD4cyOnuyopk dJ4mV2BfFKMfwmtrOf51kW1qKeI tFaP2DInhCmm+TVVMTEVOUywgUk RJUQWMXQPTSKnRRpE9D4Ua Zel8DOLsoJdiUG6ywSToJPxkUv6 epJmqvNjnAO2qLXWrmjkaEXTmdY 4nLOFeiDGwfHoeDJ4dNPFb gujvl899JwFzRTY5KHKidOUeJ8B jnQ0uMyBoUQNhOPTgI4TlpIHkPB vgL340PTaeFwW0YPGhmcLt Q3LcIWHqdJeuGxQ5g7U3Rn3nET0 sAs9pYOo6LS06TQ02hQDgg8H5xE C0U8SaUEQxxpizazwwzZU6 KHIbGCFnsX01pDXoPFcbGy6sk8M 3n566WMSuVUZuuG12Ic3dsWbxLK SsaPXQoA3waebfp5tgwujj HmXrIWCtRJt8KDj9VUNcjNffZnK rUNV2MuJ4LIM5oDJkeF1ngJmauj qwnU3aJcv+MzcgWWVhcnM8 A5YmRab6HNIztCyuJM4auRKhWCj sOj9tpLynyZmxGE5tOLXwdcijPT LvvG6xPUZpaKNssNeqAM6y TOKkxbjnd648CjBkXIQ0KXZpuZU zY4NkfB7lYzJaXLPgKRXaD3JqcN VpPQapN888QRpiZbM0QYPq rhVbI5QnOKAclAvpDmU4m1W2Ne8 TIK5ZESF3P1KhVby3RLKupGbiVU 1ddHZkFRkiRs0ioIvdtLhs DR4vWUEqpuooLYTenQ0uVGBkiSX knTlxBW4pUHZrnciaa150EjEzOI M4GXKvtOVpY2WzhZ4xBvEs JEVwXGAjX4IhpJMwQCreE624EDg uHnF1GYGvmjQiS7KaSSQrbBzzXm O9e9N2Eg2AXYohnUA+PC90 gh35K1XuUjctTna6KJCzFHT8lWC 7zC6kBRVaBJkax3X7mZH8N4Qwlj Erjb3lw2twLLLhSCczU31w lOSyv0R2ERGuzDL1IIAnzDzvCqP vjY95Tcw+LQTatBilm1NqHygbt3 xqg9bhvKl8AhFrCSTngiSr xTgsSKC5w3NvPq91F56oPJdhIIZ zSYZfRODaESMdoUpjdx4pjP7wPu 8+JOFqiWP8vIC4yP6iBgTf RuU0UNdfC510BqDkuGLcPgjyj9c xp5fquEl4JhKlIDMscwOqjQgkRQ L2i2ShUu95N0SteVqcn2Tb Maw3vi08uMOue6O8vXL6Q8NcIFH ygxodtJGwkTlhNG9jRTVyzxdpDL WacN2xVMTgS4k4WiYfYmI8 EXgkV9NmpsS7FTPbgIMmBSExuBI TcA0squaek9qlmlbkOiIsSHMpTQ e6TMh1VHIcrLbeRnElJNT8 JoE8INT4xONliX6osNltdbwyqP2 wOyc+EMs4f6zxlHUnDV2vrAU1YM 35IH38sHSvx9B3lII3R2Bm VFRxmrufpzajtAY9EZQpWEPdpX1 3Hz0cyCrwKh5uLCUoJTU3WWDxfD JpL4DqrA5sMuHjNBLqQEVn V3MkrOKgCRakP736RVakHzS8GIO sbjJyT0CrOMYgzAjqSfX5v6J8Jo 5GIB85UH64WH43hATco9U3 mRN9E8JfWXPyfvctfqxehZQ2HSK wBWWouN88Nd8bkXggJg1wMLRiBC X2JHQbuGRnE9MotH9jPhJc PPZsTXTbN4TbaOKwQWcnC203SHj jFuZ7PHWdxkYwV3PhNMPiiKvzKd U2i8Y6Nx5OFb97KJ67FJ54 qFRoa5C9jOA9F6QbJPVtckunzvi anOD0EFOaUHGkbA21Nl9vuVlqFc 7wXCMuEUV3SPHxzCYmN4Qx kD5dRzMnCOUsGJInA4MxbLOpGOi qN672YQdeZyO1HHMxrzLqX0OsHI DzwOtfUdN4h7W5Vi4SNJpc len1I8BqRfcebQY+FV30QAVuPX8 9tJVogGTtq6cpsZt3PiMhADFoVE X2rHhiMTezg4HdJPAaY46d bGF (more content not included)... Normal [facility] ED Clinical Summaryon 2022 ED Clinical Summary [facility] ? Urgent Care [address] [place] [id number] Clinical Summary PERSON INFORMATION Name: MICHAEL RAMON Age: 37 Years Sex: FEMALE : 1985 MRN: Acct#: Visit Reason: Medical screening exam; C F/U- RT FOOT Arrival: 12/04/2022 12:23:36 Discharge: 12/04/2022 13:19:00 LOS: 000 00:56 Check In: 12/04/2022 12:23:36 Checkout: 12/04/2022 13:19:00 Address: [address] [place] [id number] PCP: Thu Baldwin DO PROVIDER INFORMATION Provider Role Assigned Unassigned Mati Bell PA-C ED PA 12/04/2022 12:25:49 Catarina Meyers MOLD INSERT CHANGER Nurse 12/04/2022 12:26:05 VITALS INFORMATION Vital Sign Triage Latest Temperature Tympanic Temperature Temporal Artery Pulse Rate O2 Sat 99 % 99 % Respiratory Rate Blood Pressure /87 mmHg /87 mmHg MEDICAL INFORMATION Medications Given: Allergy Information: No known allergies PHYSICIAN DOCUMENTATION DISCHARGE INFORMATION: Discharge Disposition: Home Discharge Location: Home PATIENT EDUCATION INFORMATION Instructions: Follow-Up: With: Address: When: Return to this practice Comments: FriJan 22 at 11:30 a.m. DIAGNOSIS: Contusion of right foot; Hallux rigidus; Lumbosacral strain; Sciatica Patient Understands: Yes - Patient/family/caregiver verbalizes understanding of instructions given Comment: Normal [facility] ED Patient Summaryon 023 ED Patient Summary [facility] ? Urgent Care [address] [place] [address] PATIENT DISCHARGE INSTRUCTIONS Patient Information Name: MICHAEL RAMON Age: 37 Years Date of : 1985 Reason For Visit: Medical screening exam; [facility] F/U- RT FOOT Arrival Time: 12/04/2022 12:23:36 Primary Care Physician: Thu Baldwin DO Attending Physician: Mati Bell PA-C Comment: Patient Education With: Address: When: Return to this practice Comments: FriJan 22 at 11:30 a.m. Medication Information: The exam and treatment you received today in the [facility] Emergency Department were for an urgent problem and are not intended as complete care. It is important for you to follow up with a doctor, nurse practitioner, or physician?s trust administrative assistant for ongoing care. If your symptoms become worse or you do not improve as expected and you are unable to reach your usual health care provider, you should return to the Emergency Department, we are available 24 hours a day. For those patients who have received Radiology results, the interpretation of your X-ray as given to you by our Emergency Department physician is only a preliminary report. The Radiologist will review your films and if there is a change in the diagnosis you will be notified by phone. Please make sure you have provided a working phone number so we can reach you if necessary. In the event that you had a lab culture while you were a patient in the Emergency Department, you will be notified by phone if there is a need to change your antibiotic. Please make sure you have provided a working phone number so we can reach you if necessary. [facility] Emergency Department has provided you with a complete list of medications post discharge. Please inform your diamond powder technician/provider of your visit and for further instruction on these medications. Any specific questions regarding your chronic medications and dosages should be discussed with your primary care physician(s) and/or pharmacist. Additional medications on your home medication list not specifically addressed. Please contact the ordering physician if you have questions about these medications. baclofen (baclofen 10 mg oral tablet) 1 tab(s) Oral At bedtime. Refills: 2. buPROPion (buPROPion 150 mg/24 hours (XL) oral tablet, extended release) 1 tab(s) Oral every 24 hours. TAKE 1 TABLET BY MOUTH ONCE DAILY IN THE MORNING. DO NOT CRUSH, CHEW, OR SPLIT. cetirizine (ZyrTEC 10 mg oral tablet) 1 tab(s) Oral every day. cholecalciferol (D3-50 (50,000 intl units) oral capsule) TAKE 1 CAPSULE BY MOUTH ONCE A WEEK. diclofenac (diclofenac sodium 50 mg oral delayed release tablet) 1 tab(s) Oral 2 times a day. Refills: 0. melatonin (melatonin 3 mg oral tablet) 1 tab(s) Oral once a day (at bedtime) as needed for insomnia. metFORMIN (metFORMIN 500 mg oral tablet) 1 tab(s) Oral every day. TAKE 1 TABLET BY MOUTH IN THE MORNING WITH MEALS. pregabalin (Lyrica 50 mg oral capsule) 1 cap(s) Oral once a day (in the evening). Refills: 0. Visit Information Visit Diagnosis: Diagnoses This Visit Contusion of right foot (S90.31XA) Hallux rigidus (M20.20) Lumbosacral strain (S39.012A) Medical screening exam ([id number]) Sciatica (M54.30) If you received any narcotics, sedation, or any other medication that causes drowsiness for the next 24 hours, unless otherwise directed: ? Do not drive a car. ? Do not operate machinery such as power tools, lawn mowers, drills, sewing machines, or stoves ? Avoid alcoholic beverages and drugs for allergies, nerves, or sleep ? Do not make important personal or business decisions or sign any legal documents Reason for Visit: [facility] f/u appt Allergies: Substance Reaction Symptoms Type Comments No known allergies Drug Vital Signs: Vitals and Measurements this Visit (last charted value for your 12/04/2022 visit) Vital Signs This Visit Peripheral Pulse Rate: 79 bpm Respiratory Rate: 16 br/min Systolic Blood Pressure: 138 mmHg Diastolic Blood Pressure: 87 mmHg SpO2: 99 % Oxygen Therapy: Room air Blood Pressure Method: Automatic Problems List: Problem Onset Comments Depression Lumbar radiculitis Obesity Tobacco user Major Tests and Procedures: The following procedures and tests were performed during your ED visit. Laboratory Radiology Cardiology Viruses or Bacteria What?s got you sick? Antibiotics only treat bacterial infections. Viral illnesses cannot be treated with antibiotics. When an antibiotic is not prescribed, ask your healthcare professional for tips on how to relieve symptoms and feel better. Usual Cause Illness Viruses Bacteria Antibiotic Needed Cold/Runny Nose NO Bronchitis/Chest Cold (in otherwise healthy children and adults) NO Whooping Cough Yes Flu NO Strep Throat Yes Sore Throat (except strep) NO Fluid in the middle ear (otitis media with effusion) NO (more content not included)... [facility] Progress Note - Nurseon 11-09 Progress Note - Nurse Patient called and left message inquiring about MRI and XR orders. Patient reports she requested that they be sent to [facility]. Called and notified patient that the order was sent to [facility] and was pending prior authorization. Notified patient XR order was ordered for [facility] and could be done at her convenience through outpatient. Patient verbalizes an understanding of information. Reports she will likely complete the XR order today. [Electronically Signed on: 12/04/2022 14:34 EDT] Giuliana Travis RN [Verified on: 12/04/2022 14:34 EDT] Giuliana Travis RN [facility] Urgent Care Note- Provideron 12-04-2022 Urgent Care Note- Provider Patient: MICHAEL RAMON Age: 37 years Sex: FEMALE : 1985 Associated Diagnoses: Contusion of right foot; Hallux rigidus; Sciatica; Lumbosacral strain Author: Mati Bell PA-C History of Present Illness OCCUPATIONAL HEALTH FOLLOW-UP Date of injury: 08/26/2019 Claim #: [id number] Employer: [employer] Mechanism of Injury: She was moving boxes of celery when one fell onto the top of her right foot. 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 On 08/26/19 she was moving boxes of cel[employer]uotus when a box fell off of the cart and landed on the top of her right foot. She was initially on light duty per [employer]'s telehealth visit. When she was not getting better she was referred here. X-ray was found to be non acute on 08/30/19, but she continued with pain and swelling and inability to walk/stand for an entire shift in normal shoes. She was placed in a CAM Boot, MRI was performed which showed faint patchy edema noted in the plantar aspect of the 1st metatarsal head with no apparent OCD, small dorsal osteophyte to the dorsal aspect of the first MT with an in tact Lisfranc. She started following with podiatry who requested additional condition of hallux rigidis and when she failed conservative treatment they recommended a right first metatarsal phalangeal joint arthrotomy with possible cheilectomy. This was denied, but she opted to proceed with surgery regardless. Since that time she has won some hearings and her care is being covered under the claim. Right first metatarsal joint fusion was July of 2020. She was compliant with the PT that was approved and allowed through the claim, but continued with daily pain, requiring frequent OTC pain relievers and Ibuprofen. She still did not tolerate a shoe and after repeat CT scan of the foot, the request to remove the hardware was initiated. This was approved and performed on 11/05/21 and seems relatively successful at this point in time. She feels the toe is about 90% improved at this point in time. She is continuing with PT. At her last podiatry appointment it was recommended that she continue PT for 2 more months. She arrives in a loosely fitting tennis shoe today, that she now states she can tolerate intermittently throughout the day. Her primary complaint at today's visit is worsening low back pain that radiates down her right leg. Shortly after her second surgery, she noted an increase in right lower back pain that she related to the recent surgery. She denied any previous low back problems. Since walking in a post-op shoe post surgery and elevating her right leg for two weeks post op, she noted the start of right sided low back pain that radiated down into her buttock and down the right lateral thigh. No other injury or strain she can recall. She relates this pain as being related to and cause by her recent right foot surgery and recovery course. Additional conditions are pending. She did seek an injection and some water therapy outside of the claim and is noting good relief. She is very deconditioned from being off and sedentary throughout all of this. We requested work conditioning, which was finally allowed, but not tolerated very well by the patient. PT has exacerbated her back and she is seeing pain management. They are working on getting some imaging of her back and will work towards definitive treatment. She denies fevers, chills or malaise. No other joint pains or myalgias. No numbness, tingling or weakness. No incontinence. No skin rashes, ecchymosis or abrasions. Healed surgical scar. No previous foot injuries. There are no other associated symptoms. Nothing else makes the symptoms better or worse. Symptoms are described as sudden onset, moderate in nature and partially improved. Health Status Allergies: Allergic Reactions (Selected) No known allergies. Medications: (Selected) Prescriptions Prescribed Lyrica 50 mg oral capsule: 50 mg = 1 cap(s), PO, qPM, 30 cap(s), 0 Refill(s) baclofen 10 mg oral tablet: 10 mg = 1 tab(s), PO, HS, 30 tab(s), 2 Refill(s) diclofenac sodium 50 mg oral delayed release tablet: 50 mg = 1 tab(s), PO, BID, 60 tab(s), 0 Refill(s) Documented Medications Documented D3-50 (50,000 intl units) oral capsule: TAKE 1 CAPSULE BY MOUTH ONCE A WEEK ZyrTEC 10 mg oral tablet: 10 mg = 1 tab(s), PO, Daily escitalopram 10 mg oral tablet: 10 mg = 1 tab(s), PO, Daily, 30 tab(s), 0 Refill(s) melatonin 3 mg oral tablet: 3 mg = 1 tab(s), PO, Once a day (at bedtime), PRN: for insomnia, 60 tab(s), 0 Refill(s). Past Medical/ Family/ Social History Medical history: Resolved Lower back pain ([id number]): Resolved.. Surgical history: Epidural block ([id number]) on 03/06/2022 at 36 Years. Comments: 03/06/2022 10:33 Dana Conklin MA RIGHT TRANSFORAMINAL L4 AND L5 Entire foot ([id number]). Comments: 12/26/2021 17:09 Tamiko Childs LPN right, surgery. Fami (more content not included)... Normal [facility] Urgent Care [place] 023 Urgent Care Record [facility] ? Urgent Care [address] [place], [place] [id number] PATIENT DISCHARGE INSTRUCTIONS Patient Information Name: MICHAEL RAMON Age: 37 Years Date of : 1985 Reason For Visit: Medical screening exam; [facility] F/U- RT FOOT Arrival Time: 12/04/2022 12:23:36 Primary Care Physician: Thu Baldwin DO Attending Physician: Mati Bell PA-C Comment: Visit Diagnosis: Diagnoses This Visit Contusion of right foot (S90.31XA) Hallux rigidus (M20.20) Lumbosacral strain (S39.012A) Medical screening exam ([id number]) Sciatica (M54.30) If you received any narcotics, sedation, or any other medication that causes drowsiness for the next 24 hours, unless otherwise directed: ? Do not drive a car. ? Do not operate machinery such as power tools, lawn mowers, drills, sewing machines, or stoves ? Avoid alcoholic beverages and drugs for allergies, nerves, or sleep ? Do not make important personal or business decisions or sign any legal documents With: Address: When: Return to this practice Comments: FriJan 22 at 11:30 a.m. Medication Information: The exam and treatment you received today in the [facility] Urgent Care were for an urgent problem and are not intended as complete care. It is important for you to follow up with a doctor, nurse practitioner, or physician?s trust administrative assistant for ongoing care. If your symptoms become worse or you do not improve as expected and you are unable to reach your usual health care provider, you should return to the Emergency Department, we are available 24 hours a day. For those patients who have received Radiology results, the interpretation of your X-ray as given to you by our Urgent Care physician is only a preliminary report. The Radiologist will review your films and if there is a change in the diagnosis you will be notified by phone. Please make sure you have provided a working phone number so we can reach you if necessary. In the event that you had a lab culture while you were a patient in the Urgent Care, you will be notified by phone if there is a need to change your antibiotic. Please make sure you have provided a working phone number so we can reach you if necessary. [facility] Urgent [facility] has provided you with a complete list of medications post discharge. Please inform your diamond powder technician/provider of your visit and for further instruction on these medications. Any specific questions regarding your chronic medications and dosages should be discussed with your primary care physician(s) and/or pharmacist. Additional medications on your home medication list not specifically addressed. Please contact the ordering physician if you have questions about these medications. baclofen (baclofen 10 mg oral tablet) 1 tab(s) Oral At bedtime. Refills: 2. buPROPion (buPROPion 150 mg/24 hours (XL) oral tablet, extended release) 1 tab(s) Oral every 24 hours. TAKE 1 TABLET BY MOUTH ONCE DAILY IN THE MORNING. DO NOT CRUSH, CHEW, OR SPLIT. cetirizine (ZyrTEC 10 mg oral tablet) 1 tab(s) Oral every day. cholecalciferol (D3-50 (50,000 intl units) oral capsule) TAKE 1 CAPSULE BY MOUTH ONCE A WEEK. diclofenac (diclofenac sodium 50 mg oral delayed release tablet) 1 tab(s) Oral 2 times a day. Refills: 0. melatonin (melatonin 3 mg oral tablet) 1 tab(s) Oral once a day (at bedtime) as needed for insomnia. metFORMIN (metFORMIN 500 mg oral tablet) 1 tab(s) Oral every day. TAKE 1 TABLET BY MOUTH IN THE MORNING WITH MEALS. pregabalin (Lyrica 50 mg oral capsule) 1 cap(s) Oral once a day (in the evening). Refills: 0. Visit Information Allergies: Substance Reaction Symptoms Type Comments No known allergies Drug Vital Signs: Vitals and Measurements this Visit (last charted value for your 12/04/2022 visit) Vital Signs This Visit Peripheral Pulse Rate: 79 bpm Respiratory Rate: 16 br/min Systolic Blood Pressure: 138 mmHg Diastolic Blood Pressure: 87 mmHg SpO2: 99 % Oxygen Therapy: Room air Blood Pressure Method: Automatic Problems List: Problem Onset Comments Depression Lumbar radiculitis Obesity Tobacco user Patient Education Viruses or Bacteria What?s got you sick? Antibiotics only treat bacterial infections. Viral illnesses cannot be treated with antibiotics. When an antibiotic is not prescribed, ask your healthcare professional for tips on how to relieve symptoms and feel better. Usual Cause Illness Viruses Bacteria Antibiotic Needed Cold/Runny Nose NO Bronchitis/Chest Cold (in otherwise healthy children and adults) NO Whooping Cough Yes Flu NO Strep Throat Yes Sore Throat (except strep) NO Fluid in the middle ear (otitis media with effusion) NO Urinary Tract Infection Yes Antibiotics Aren?t Always the Answer www.cdc.gov/getsmart GET SMART Know When Antibiotics Work U.S. Department of Health and Human Services Centers for Disease Control an (more content not included)... [facility] Coding Summaryon 11-21-[address] [facility] EuhjcxpxHGb8hTi+PGhlYWQ+PE1 REPJtR11kuSVarZ7fM9DUGQgITw szEMNILEbOTcAnjtSmOB3kgXOyA XJu IC8+VR8oAVJlDqsseYXxc2T9rQK 4N85jxa7eEFbcrLZ4DFMgGsJacx uot9pgwJj8RFmdCiulFuUk KACqyZ96GGY6lO52Qt66kTPznAV gj9uoiWl9TjUdRQBnJMI2iGrfUX ghu6XzUWTlI04jgBKpe0T3 LOCabMnvzUCaFtQiwGS5mD5iGMa conxmm3vgpwjfSru0an43iEJce2 Z4uPK8G2YxocA2ORFnjNEa ArgryBTNzZ2lwgrkk1kuyhdpKsS fOPJhXAw6JTo9ZIIzgJffBuFcWJ 84RQI7ISYxoiHnB3FfQWLq fCsoFxM0b3W1Nm0PW9QOSrckA7E NTUFSWTwvdGQ+NE98st16Z3MhFd ybDsk5LGEfIUB6mDC2vT2t PQTvTJtzx5Q0nKQ9F7WeeyEjww8 wq0nqWHKsAPpnH61kfXNzm5H2ZG KnrJN3ABZfxTlqWlWrzC17 Oyc+GSLdfXads3NvBgoaj1gyf6p ylIj4DgipMPPjqiCwkEkpRVV5z1 XjQl5nKCArlKJ9tWY0yG1o RzFrByS9VYwhU180CvPysLNnSoo uN93cB9KkpGK+UQLnYrv9MGLvyA nmXX3cY0DiEDWsjdjaeTNc cDxdME8aIXYeldzfLHIhgU5fLBO aX3i7XhLsCxE4LJohK0GnBLBbtx veSi10sZ9lRhSwZfO0AZtv T3UgvvI3CFXovQQgJPxbVKT7I55 vc4D6VNUfOJZtTWI5wXK7lL7mkA lnbjogbGVmdDsgdmVydGlj KAhgFJifU622IFOabKbhSaTkCPq uZyBEYXRlOiAgMDkvMTQvMjAyMz wvdGQ+ZVJiYUL9xOydJMSd sROlAAqyQr2auJpcoStaGU2lOYA hfnsrMFVfbM2hRXRtuVBzgBkjSA 3kCKXgofmkq504DqDxNTB9 VTRfwUPrB1MvyJ1yAwJmDNGdMDD rA4QvrSErMTkxO734ITraKzC1UV NxmjFlI7WkTIAaeSbkDiV1 p7H8Mq0Zq0RpylqmQ2JyaPFeUpT cWkdtFNg9V4FrCqkqtYD+PC90YW AiCT21MAa3QTZ7xZgsATuc YFOwD5TdvQ0qUxEbDCWrGYYxUab +PHRhYmxlIHdpZHRoPScxMDAlJy IbgSxxGQ5sZu4jPXArKUJd zBfdaBGzGdLou0uuTMXdLUwsNT4 frVmkS6PdwWJ5OJCxj0y7Uz10O7 2sW5RgtQN+PMMskPR7gMY2 yY2jVtNgHeP5ABykE257OiTfzHN oZkanm4pap5sbtIf0CgR3NBZfbb FeuWcvTSB8a8EmNx39H94r IHdpZHRoPSIxNSUiIHZhbGlnbj0 bjV6hXe5+CHCydFM7fCK1fP0lFg NhNnC7MZrbH927LnEgkLIt Fjttu3ifh3tazOb5SuZdICEwmxY nwYntNDV8x5AfWy34S3YstZoho3 OvBja1cf46yBPnb6K6xNL1 Q6DcXQGchwbtvHTniBayAN6nUTW mfcbiHDAmcS0fPZFoE9r7TiOjSy R1ZQkuH4EokxP0WYIpsNFy EADfmZEXsZ3gtnfcd4vkxdvkNiG uIWZlYPk1JHl2KKGxnIbbHhAsHE Z6ZzL8HXF2uSWspJ1soVzx zjkcsY1dPrd+IUI4sSEcdNKYYK1 lOjwvdGQ+KGXrZCW2xNaiZEwrDJ YvwH7sULRyL9j5OwGhRuW4 NBnaJ0AuyyF7JTRjiMMmWJQauRK ZcZ6rlydyq6xgfmtuQaOnHOQvPV b5NLf5AIMrrBneIrBzLSY4 UtK9LBC0qZWzrW8ceNlasnrqiL0 wOyc+PtnjjOmaPOS9FGz8T1QrDa y9PBHdcIidNA9pgFVrXPxd Ou7mqHfnoUfcPM6eGOAvwghpr92 1ZkEoz7fwAWEiiKYrMEevYID5D2 7ru5V8XJYuYIKjNJK3dTD0 tH1xbUhfeclzkAAnsEzpnxGhrXg eXSxsXYitE192ZYUwrHtrQfSdEJ d9F2UqJat3YMIecYloIV4p xUHnIQsvFe7rpDcgpHitPN9zYCI ppokab031JiKcj4suLAKyrQRySN ppUFR4J77aa9T6JQSzTCDp VIN0pHO4fP1gwErjixiguUTkeJn sntSomWkvSDlyGBbjS428NKOmlQ kkXlWdiWv2A8FuFtw8ZHOn hOiiMN4fbKUvSIrbBr5zeRpdbLf mMF0lFARfuhccv147YlIxd0lmGQ YsjBCwNZorSBE2J23bo4J9 GFYrEMZrUXK1zWE2lQ8poDexxoj gbGVmdDsgdmVydGljYWwtYWxpZ2 46IHRvcDsnPlBhdGllbnQg IYebESu5G1MwKixrbDL+VL72RDN yZS62nJTssUYdh4zezXw9ClRcFA GjXDW9iUwhYJkjf3SbWOKb W07hxFBdb8M5OXWerHvckDYbGsO xcLR4nD1uNZsiigbuh0uqvqgoCg yav4djxr68dA32L98iXPvq FDYkHNTzKZRcSFMxiPdysl1dfA5 wIi8+UROtnOT0xPB4bO1vAGXsLu U1MYuwK498ZaAzxCYnSzam z8hmd7nidQi4DrR3RFNxvfQmcJp pGSL9d9FqUz19P77wCYnhRWIiZP SnKQRnXQWusCepyv9diV6d Ii8+LZFrvZT6lOM0xO2xSnIaYpG 2IMfqE449NxMiiWIgFlonF25lL6 JvdXA+KPCzCic2DPXpoZld EG4oeQPaVNxvYt2yAIW0CsTdAaP hLClxV4WoPHMidvlruhjrwGA5BS DdGCBsfL67Pe0eiHoqBNUk hNSOrT4lvhdpw5spdatlPvBeJIB fOYi2LIc8OSQtsZouMwPuBCB0Rj N9VSR7qWLdpY3mbMckpszz eI5bN4GnKXXipjngGb13oW3aQgS aVzP5HLqxOww+TVVMTEVOUywgUk WZBNETYYFNCXuTPjY0E0Al Hsj5PVTjyKwbYO2pvPRqNZxeMo7 ieSdzaKzfJA2cOTWkuyheZWUqjX 4zRJVbdQTjbVvzHR7yABPw hipuo296CcOwVTT6SVIooJDqL4U chK2jQjZhLGJoRGHgS7VnfBBmQD ebD867PIcoYjR4WYXcgnTx O7GkYCVumLtjTnX4w7F7Oy1pXE3 dGv4bUTb6LD64OY96wAYfv1W8aQ G6Q9CkHNNkobvwkrbtaUA1 EZYmJKFraA96wSUtAYjuRk0nl7U 3q699CFFrGBMjwR37Um8frSqwMV YjwFBMnN2sfndbr9xzhaar UtHaWRTiWLu4ROg0KUOugLgnXzK hZGF6MtN7BJV3pBWjvD1wfOyzat kzrK8kWgd+MzcgWWVhcnM8 M6SaYnt9TSOaxTaeMI4qrAMgEHr tNq8wdKnehSjaAR9vBZVfzpleWK JdxI9kBEWdsXPgnWgoUA9c BXNkxfdxk266ZnOwIJK5VWEjnDK iL8XvzZ7jPdGvKODxDBRnQ4RwiS XvGAmqE065JZydIcG9OESg fhQaF4MgTCBozZqdJeK5f2H5Bu8 QBH9ROBC1V0BfPcz1OYQuxYkrOO 7dsFQmODzgPc1qkCsqvDpd OQ8vBYQojftpWFIcxN7pGADkxBA zdEcsZD9cZEDtpuqgi016NePkFE C4KGSlxDRaK9BsbK1dXdHz FXDvTPFhM4DmlVIxKOkjE733LFe bAjY3IHZprgEhA4JhGCCcmKntQh I3n6V4Ox9TEWbzsTE+PC90 ja26T6UnTipkFue6KOBdQIA6uAC 4bJ2uPSRiEHytz8K8oGH9H3Dawx Tplx9eu1szEAWuQFlrN53h aKRox2M5KTSwwBM7ZMEhaGxoYwZ zmG17Hxf+RBFrqByoo3ByVuuok3 nah4aqcOy4EnLwIRAqrzUw xKadANI6u9GoHv39P16fZTilXWP hODKrSFJuORNstDepcq3deS9lYz 8+ZESkxYX1oAE4xM3qNmEj BxV9KLgfL761BmHpjLJyIpmop7r co4cduBs4KnOvDUCljeCngVluIL I6o4UlCi96L1YfoQtwd2Iv Ajb6nb96rWQyq4H5rTL4L5GnKBF nsshtzLAhbHzjBV2aXXQqzvtsRX FvtF0nQEWuU8a1HhDfQfI9 YTsbG1SxudA5YOJnmIUgLLXjyMW KtR4qzfijl8ttllyeViAaZDErSG u3TSb6XGKjvLduMrLpZSY9 CkQ0SPZ9lJTnuN8soKoommchpC7 wOyc+XKk1p5vrbVMtGS9fdHK4GW 44WY12fJDam4K9uQI9F0Jf USDvkhbgqmyxhDR3UDNvFLQzqT3 7Ud2vpZvfRk5jUAXfNAV5EMVotJ OlS5FdxQ1hOuSqHDTjHUAm F0MeuUZcFCwrI750UXvlDjO6GXA trjMwT2MdJXLhuWwoCrM3y1Q6Fn 9RQS63YQ14HU16iBQni5G6 nBZ2H7SmNHLbgjzivqyopPH2WYO bIQVgoY48Ue7zxBxwAb6cNPVjBZ T0RNOmeIQyK7GaqU1vUdJq GSHwPKDeO2ScrNXnHVmiU898IVc nVzV4FUJjnkDdP7CpUWTxoSawXk T5n1V1Lw7ZSm35OJ75MA48 iZLvh0L7mWA3B1MiWTWsywjtagz atCB3XTPpAQBtqE71Vx9ivRfnLi 2vMLUhUSK0FVOhrPPuA9Cw zV7yKtKpWWNhTJKcY3YajUMzTJb pJ020YUkjHhH3WDLjnjDxT9VuLO RofEykBhG3b8Z3Jk1QVHkf nco5K8QqOcbvcGV+JT53YATrCA9 9aJScnVQbn5ecbTq0CvNvTSLtHA P2dThdIDhnl9GsHHOhY42i bGF (more content not included)... [facility] Consent Formson 11-20-2022 Consent Forms [id number]#1.00OTGTIFF [facility] Controlled Substances Agreem entson 11-20-2022 Controlled Substances Agreements [id number]#1.00OTGTIFF [facility] Progress Note - Provideron 0 11-20-2022 Progress Note - Provider [id number]#1.00[facility] Provider [place]erson 10-24-2022 Provider Orders [id number]#1.00[facility] Release of Informationon Release of Information [id number]#1.00[facility] Coding Summaryon 10-10-2022 Coding Summary HTMLBase 64 MrisdpuqVXg4sGo+PGhlYWQ+PE1 SIEByR32qhXKasS8yM1UGLFuVWd fkHEJAKShLAyGjzvYyJH6rbGDmC XJu IC8+LZ8sSVLyXpapqNBrx2T4zIA 9K31xdg4qMGhodNC6GPOnNxTggh ilx1zreKg9YYkqFppnQgRa BVCpgC73YET5oM84Ca74xYJicKS nl0uacFc6IlYcNTJmWPH0oFcoXK lvn1RxDGIqJ37zkIDeu3Y8 IROpbHtspVNbTqVldQY0dC0fDAz qysrco5qmrssySns0qd71zPZlb3 U8qRM2J6NxefI2LQCsjTBs VdrbaASYmA0xedwzt6owmitpUrG rNTEqDDx7HUo9IOQvxQfbPxYjEP 61ROB6LAGtgeYyN6OfNLWi eGaoKlU7b2A4Ri3GO9SVYqkaG1H NTUFSWTwvdGQ+XS24pe11N6UsHr idPoc3WJMmQNF0bIL8eI8j JEIeIVvja1C1qZU6G9YdhhRozl8 dn2fnPRLwXTqnA47abLPsv5K1WC GjhLH8AXCquRbpDzMffO55 Oyc+ZIRouWkyr4ZqUytvc9dac5j hfLz7PmnyUZZsixPgaJsnUEQ4n8 LaPq5oFLSugFC6nUZ0uP7m AxXsHyJ1FVgaI857DqUawCAuBuc tK05zZ5QqiXM+KTExVam6DXSgpX ugBH6uX0PlBACyeyhpvGJa kRdxVU4vUNAwvxszXDSapU9bFOD dH4v2IeGbLzI6CYoeN9EiPNQsog ybJc35zH4yYxXlNpD1HRpp T1UxonQ2RDJozWZtHTqdWST3I58 gj2D2JVKoEOEyBMV1hIU8wQ4yqL lnbjogbGVmdDsgdmVydGlj ETikXBohK342GNDmxAgyWbVhJYq uZyBEYXRlOiAgMDgvMDMvMjAyMz wvdGQ+TMPqDME6vJbhYETm zZFlZGqcBg8stCddzUmjUB3kJDF csiegOBXqmU3zDKBmfTMwcWquWG 8uVCXksqagk464WnQtIQU8 CXYicWVwX4FoyJ9oHyTcTCCkHQO bH3LvgLWgRHiaF298JJjcVyB2HG RocyKgX6TbHJGimQxyVzJ2 e2W9Uc8Hp1FjwkrnQ9BdkBBgEkF tLzuiASj7S8VyLjuxuES+PC90YW RaVL76JHp8QPK1yOscORtz LVAyX4BvvR4iLnTeOHLcENPpSqn +PHRhYmxlIHdpZHRoPScxMDAlJy UcsWbdAF7mLr4zKIMbLDXn dCjjxZMzQoCwm8ldTLOdBAttIV3 diSquF7QezTD0JUMep2o8Ku23O3 3iI6QpnNY+MRXpdNA8fGY0 iQ7hDmZnFmW3OOtdP500TqZlnEZ iKffgw9tfu0hgqEu4YfN3JWSchx PmpRfkILZ7g7WeRz13P20t IHdpZHRoPSIxNSUiIHZhbGlnbj0 ywX5tDx3+KXUksBJ5pRK6oC5nDk EbBvV5GEuwP543RcQyiBWn Gerfj9ekl7imcFo4UsPdVCZumaI cwZtiDKG3b4ZiUp92P7NtuMhmw4 BaVsr3nv17vWBkj9H2eED0 V1LrOEOawlidiBDtuVznNA8eHPI ftkavJZYiaO5jAOWkA7i1VfTvOl K0VBnqA2EticN4DNRfoCLo TWSkhCHMwX9oyxkhq3goxppuWnK vBVXaQXj1DPq9JZLwjCttGvXlVK A8OwU7NEU8tAIdmU8dfMud yjfuhE4zXop+EKH1sKPtuSDFUI2 lOjwvdGQ+HQCmRYS3yPhzVDaqAW CpdI7rCRUmS3y8XmZdOmJ1 NWhjQ8JfoeG9VJRdoGAuYHSttRO XvL4qlzrhz0ubesazChClIODvGT i9WTl1ZOOpsCyaWoUsHCA4 EmG8MBB7gGQfcW5yfXxvnjibzT5 wOyc+VnzfgIhjHSK7ZTv2Z6UpUx g5BRUauYbzCU6ywVCvDVaf Vv4roFcarIvaVJ1iESAaqkqrl43 2GaJbm3azTBDtzDOzAWlbTPX8E0 5rq2X5ZODgCDRuFFM3tIC9 yY0pnTjbkwzpdUNrmUmrhnHfeEw lZLvqNXwzM245KMXitQaoQcOnJG s8A0HfLtv8OJKnqYbxER3r vSJtSGklHl1ydCapnRkgDS2mSPB ldbnvx549ZhCbj6tcRSQuvFMaKZ fjVVQ7S54pm7C7EMJlMFEb SLJ0gDT6eE4bzQvjesvcvAPzgZn ptqFzgMpyPKfzKGnvE956GORlqF deJeZctLs5Y4PjXoa2ZWVf rWaeWC9gpFAaZEazYx6acHhlrGw iZY9yDHGrtgbif739JiQgs1nxNM JrrSOcUVnhQYS6J55zy0V8 DWTaZNWwMSW7pXJ2zK8wbJzyoaw gbGVmdDsgdmVydGljYWwtYWxpZ2 46IHRvcDsnPlBhdGllbnQg LVskMTl6I2HfUbcklEL+VV88IRB xOC65aOYebHBlh9vnfAg0BjTnXT PfKPX9jHdjXYcqp8OkDXIy V05shXIpg8Y2GMOdtAlqqZLpFlG czDN5tB7uABuupptal1iwtjvaKx dyf0zeko30oS25J60uWAwz CAExNLQeJAUgYFKsjNvnjj9toG9 wIi8+NNWwlHW4jCX2bL0wWWVpYu Q5EKagT302YdKkyTMdXluq y8via4lhnJz1DbR0HOGgtlCzmNs wRJM9t0RmDb90E90yOVdeILQtNG KeMMKoFBWgsRjlvx4jbQ3a Ii8+CUYanJE1dZE1oE8bAqMcXoS 5THdrW742ToKdzZHlIetoF83dC1 JvdXA+PHJqJun6ZBWitUwu SX5hkTFcXCyzVo5fVEG5UgHfTyQ tAXflK5ThCAFmuvbgauamrHE6JS EaKCCnpK46Lq5qeAcuSQYn fTLTpS7mbkqvy8rwbdwmWkZoCYC iRPj1ECo3NGDagPzeFuIfVBN6Ir C9WQO0eNIttA2dbCmnmkpi cQ2uR2NtZEKvmznaNd57rB7uBiT nDaV1CLgmZjg+TVVMTEVOUywgUk VVHZJDFXCNNAuZZnZ4D4So Tad8BLCuvYfaAR6yuOFzJNriVl4 wjEdiwYsmYH4nXNXlcscfKSVgyK 3tOBColQBfmCebTO4iMFRb albdh528LvPeATP6MHAuzWUsZ9L kbD3cBjJvUVTuJFYwB4RbhHNzNU idL790HTlbVhY0VJVfsmBo B5GtLYVblXftJzY5t8N5Dv9dKX2 cIw5zVQp9PC48OH99kIOrq7S2vA O9K0ChGMDafjoowfztgXN2 ITJxOZPenD47lUKbZAviBe8yw7V 9l227ZKVfEHEknN37Au3ieRslXD SgrPMNmA3szdqkp3yatmhj YoCbUWLbZBp8LUe4TMGrqKvdOmV dWDL3LeZ7DDL4vPFytY4iuEahqw nrzZ4rEtx+MzcgWWVhcnM8 U0HfXew8JWXibSpdHE7aePEbRWc rJs1nfRejtZeqIW2oISIsibljVO OpoR8xFEMalKVwfOrdMW5c WQVfnqapl396HuCgTTJ5OLFjfQU gD5WqvR7lZtRmUKXnWWLaV9OxzC KiLKuyH950DHnpJsE5VKGm vnJaC4KuIZOdpMpaIiB7b2M7Eg8 GKE9PCRR5H5DhMbn0VRUrrThsAF 6xqSWoLTeyRq6rhSauoUlr NI8yPQSskcruJUSewQ1pXZKncSE gbFzjYL9tRAPobijnn540FyOxWQ Q6CCZxoNXpW1KabY1aBjCr DZPwROByB4SudMDtIIyuP384FFq fOxW1HBBpvnOeZ8XoQKYtwXnjZj Q5h9L7Tf6QRDaekJN+PC90 hs21X4TcLybxVha4YCKkGUV3fRT 1uC1vQYJbWTfxg0K8iBN4S2Vyxn Jkla9iw8owQCPvYWxdI89m vFMvw0Y2XKGrrHS0BRHquPqoGpS ruO84Eie+RSWyhKszj4UzAcpxo2 ebs2cxkHo6LhRiTTVgcjDb xYnfIIL1e7BxWc80P88iZVccMDW uPPApZTGbVIUhxCwsdb9jrL2jAs 8+ZXCiwIX0bJN5mZ5iScVo AbU4HDtzI688UoDvvEIlJcucm8w pl4dzvYd0LaWaQZCnmgLaqErxKN M6o5FhCx13Z7IikQuqr8Ru Dgw5ke43tWIct5W5xOB3G5XoJZO lmgofqUJibTbgYF5jOTHqjbvlOW CdeP7oJKWeJ5d1OdUdDvK8 IEnzK8XhfgT4DLUflRIxWQPbrRB BjE0hrwqqq4bithwlQnWsSDIjZQ n0HLp4HYRjbWasOpNlMRF6 PhT3XTX1yIDndK1ojHgzyqrmrZ5 wOyc+XKo1e5tegCWvKQ6izMV7HD 50TN66yJPko0F2eNR6I7Ma ASBjvvvwnemkvSQ9HRGrOEVrcI3 3Ua7lfJjhOe9gLOBfEFT7GYZfyR KoO1AhrQ9aUhBwYBPjHCBh P1YkhCHwIChvU897NXtlCeH4THC wmjUgV3AlJLUpoEqoXhY0d2U3Ab 3QCU89YL57LK54wIGre5L0 wXD6V3AdPCDuwecfdmlovYL9QIF jYQFkyO85Jx0euFugSf6fKZStKH V2HAMejSGpC3JjcS0mVkLd BICwWNMpJ9EdrNXxTBamO830MDd mNsQ7EOCnyaFnI4VmJQAdyUtkZz P9y5T0Pc4BWp87GJ06OA87 mOWsu8C3uPQ0K7KtOJRknguajpi fjEP9MKWmPAKraS51Gx1sfUalCw 4gOZBiHNY6JXXhuQVjA8Eh dP8kMzFuFOMmWQTcO2TntPBgKOz dY755TAtrEuL9VSUeqdUvC7BkVN OhiZtiAnF2p3Z2Oc0DJAew rbe0D7VhRvevgMF+YM54WIOnEG2 0nRFgeTNpo0moqWz4IjLcUJSqIC O3hFvqCBoai0CjERWwQ77u bGF (more content not included)... [facility] Miscellaneouson 10-03-2022 Miscellaneous [id number]#[facility] Provider [place] 10-03-2022 Provider Orders [id number]#1.00[facility] Outside Recordson 10-02-2022 Outside Records [id number]#1.00[facility] Clinical Summaryon 2022 ED Clinical Summary [facility] ? Urgent Care [address] [place] [address] Clinical Summary PERSON INFORMATION Name: MICHAEL RAMON Age: 37 Years Sex: FEMALE : 1985 MRN: Acct#: Visit Reason: Medical screening exam; [facility] F/U-RT FOOT Arrival: 10/01/2022 11:44:26 Discharge: 10/01/2022 12:49:00 LOS: 000 01:05 Check In: 10/01/2022 11:44:26 Checkout: 10/01/2022 12:49:00 [facility]: [facility] [address] PCP: Thu Baldwin DO PROVIDER INFORMATION Provider Role Assigned Unassigned Mati Bell PA-C ED PA 10/01/2022 11:46:30 Catarina Meyers MOLD INSERT CHANGER Nurse 10/01/2022 12:19:26 VITALS INFORMATION Vital Sign Triage Latest Temperature Tympanic Temperature Temporal Artery Pulse Rate O2 Sat 95 % 95 % Respiratory Rate Blood Pressure /95 mmHg /95 mmHg MEDICAL INFORMATION Medications Given: Allergy Information: No known allergies PHYSICIAN DOCUMENTATION DISCHARGE INFORMATION: Discharge Disposition: Home Discharge Location: Home PATIENT EDUCATION INFORMATION Instructions: Hypertension, Adult, [id number] Follow-Up: With: Address: When: Thu Baldwin [address] [place] [address] [phone] Business (1) Within 5 to 7 days DIAGNOSIS: Contusion of right foot; Elevated blood pressure reading; Hallux rigidus; Lumbosacral strain; Sciatica Patient Understands: Yes - Patient/family/caregiver verbalizes understanding of instructions given Comment: Normal [facility] ED Patient Summaryon 023 ED Patient Summary [facility] ? Urgent Care [address] [place] [address] [id number] PATIENT DISCHARGE INSTRUCTIONS Patient Information Name: MICHAEL RAMON Age: 37 Years Date of : 1985 Reason For Visit: Medical screening exam; [facility] F/U-RT FOOT Arrival Time: 10/01/2022 11:44:26 Primary Care Physician: Thu Baldwin DO Attending Physician: Mati Bell PA-C Comment: Patient Education With: Address: When: Thu Camargo [place], [place] [phone] Business (1) Within 5 to 7 days Hypertension, Adult Your blood pressure was elevated today. Hypertension is another name for high blood pressure. High blood pressure forces your heart to work harder to pump blood. This can cause problems over time. There are two numbers in a blood pressure reading. There is a top number (systolic) over a bottom number (diastolic). It is best to have a blood pressure that is below 120/80. What are the causes? The cause of this condition is not known. Some other conditions can lead to high blood pressure. What increases the risk? Some lifestyle factors can make you more likely to develop high blood pressure: ? Smoking. ? Not getting enough exercise or physical activity. ? Being overweight. ? Having too much fat, sugar, calories, or salt (sodium) in your diet. ? Drinking too much alcohol. Other risk factors include: ? Having any of these conditions: ? Heart disease. ? Diabetes. ? High cholesterol. ? Kidney disease. ? Obstructive sleep apnea. ? Having a family history of high blood pressure and high cholesterol. ? Age. The risk increases with age. ? Stress. What are the signs or symptoms? High blood pressure may not cause symptoms. Very high blood pressure (hypertensive crisis) may cause: ? Headache. ? Fast or uneven heartbeats (palpitations). ? Shortness of breath. ? Nosebleed. ? Vomiting or feeling like you may vomit (nauseous). ? Changes in how you see. ? Very bad chest pain. ? Feeling dizzy. ? Seizures. How is this treated? ? This condition is treated by making healthy lifestyle changes, such as: ? Eating healthy foods. ? Exercising more. ? Drinking less alcohol. ? Your doctor may prescribe medicine if lifestyle changes do not help enough and if: ? Your top number is above 130. ? Your bottom number is above 80. ? Your personal target blood pressure may vary. Follow these instructions at home: Eating and drinking ? If told, follow the DASH eating plan. To follow this plan: ? Fill one half of your plate at each meal with fruits and vegetables. ? Fill one fourth of your plate at each meal with whole grains. Whole grains include whole-wheat pasta, brown rice, and whole-grain bread. ? Eat or drink low-fat dairy products, such as skim milk or low-fat yogurt. ? Fill one fourth of your plate at each meal with low-fat (lean) proteins. Low-fat proteins include fish, chicken without skin, eggs, beans, and tofu. ? Avoid fatty meat, cured and processed meat, or chicken with skin. ? Avoid pre-made or processed food. ? Limit the amount of salt in your diet to less than 1,500 mg each day. ? Do not drink alcohol if: ? Your doctor tells you not to drink. ? You are , may be , or are planning to become . ? If you drink alcohol: ? Limit how much you have to: ? 0?1 drink a day for women. ? 0?2 drinks a day for men. ? Know how much alcohol is in your drink. In the [place] one drink equals one 12 oz bottle of beer (355 mL), one 5 oz glass of wine (148 mL), or one 1? oz glass of hard liquor (44 mL). Lifestyle ? Work with your doctor to stay at a healthy weight or to lose weight. Ask your doctor what the best weight is for you. ? Get at least 30 minutes of exercise that causes your heart to beat faster (aerobic exercise) most days of the week. This may include walking, swimming, or biking. ? Get at least 30 minutes of exercise that strengthens your muscles (resistance exercise) at least 3 days a week. This may include lifting weights or doing Pilates. ? Do not smoke or use any products that contain nicotine or tobacco. If you need help quitting, ask your doctor. ? Check your blood pressure at home as told by your doctor. ? Keep all follow-up visits. Medicines ? Take cyxc-chk-exkiabn and prescription medicines only as told by your doctor. Follow directions carefully. ? Do not skip doses of blood pressure medicine. The medicine does not work as well if you skip doses. Skipping doses also puts you at risk for problems. ? Ask your doctor about side effects or reactions to medicines that you should watch for. Contact a doctor if: ? You think you are having a reaction to the medicine you are taking. ? You have headaches that keep coming back. ? You feel dizzy. ? You have swelling in your ankles. ? (more content not included)... Normal [facility] Urgent Care Note- Provideron 10-01-2022 Urgent Care Note- Provider Patient: MICHAEL RAMON Age: 37 years Sex: FEMALE : 1985 Associated Diagnoses: Contusion of right foot; Hallux rigidus; Sciatica; Lumbosacral strain; Elevated blood pressure reading Author: Mati Bell PA-C Basic Information Additional information: Chief Complaint from Nursing Triage Note : Chief Complaint 10/01/2022 12:24 EDT Chief Complaint C f/u appt . History of Present Illness OCCUPATIONAL HEALTH FOLLOW-UP Date of injury: 08/26/2019 Claim #: [id number] Employer: [employer] Mechanism of Injury: She was moving boxes of celery when one fell onto the top of her right foot. 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 On 08/26/19 she was moving boxes of celery when a box fell off of the cart and landed on the top of her right foot. She was initially on light duty per [place]'s telehealth visit. When she was not getting better she was referred here. X-ray was found to be non acute on 08/30/19, but she continued with pain and swelling and inability to walk/stand for an entire shift in normal shoes. She was placed in a CAM Boot, MRI was performed which showed faint patchy edema noted in the plantar aspect of the 1st metatarsal head with no apparent OCD, small dorsal osteophyte to the dorsal aspect of the first MT with an in tact Lisfranc. She started following with podiatry who requested additional condition of hallux rigidis and when she failed conservative treatment they recommended a right first metatarsal phalangeal joint arthrotomy with possible cheilectomy. This was denied, but she opted to proceed with surgery regardless. Since that time she has won some hearings and her care is being covered under the claim. Right first metatarsal joint fusion was July of 2020. She was compliant with the PT that was approved and allowed through the claim, but continued with daily pain, requiring frequent OTC pain relievers and Ibuprofen. She still did not tolerate a shoe and after repeat CT scan of the foot, the request to remove the hardware was initiated. This was approved and performed on 11/05/21 and seems successful at this point in time. She feels the toe is about 90% improved at this point in time. She is continuing with PT and has podiatry follow-up scheduled for tomorrow. After discussions with her physical therapist she seems to be making progress and feels additional therapy will be requested after tomorrow's visit. She arrives in a loosely fitting tennis shoe today, that she now states she can tolerate for almost the entire day. Today she reports that her low back pain is improving as well. Shortly after her second surgery, she noted an increase in right lower back pain that she related to the recent surgery. She denied any previous low back problems. Since walking in a post-op shoe post surgery and elevating her right leg for two weeks post op, she noted the start of right sided low back pain that radiated down into her buttock and down the right lateral thigh. No other injury or strain she can recall. She relates this pain as being related to and cause by her recent right foot surgery and recovery course. Additional conditions are pending. She did seek an injection and some water therapy outside of the claim and is noting good relief. She is very deconditioned from being off and sedentary throughout all of this. We requested work conditioning, which was finally allowed, but not tolerated very well by the patient. PT has been helpful as of late, however, and she reports she is incorporating some increased cardio into her current PT sessions and is feeling better and stronger. She denies fevers, chills or malaise. No other joint pains or myalgias. No numbness, tingling or weakness. No incontinence. No skin rashes, ecchymosis or abrasions. Healed surgical scar. No previous foot injuries. There are no other associated symptoms. Nothing else makes the symptoms better or worse. Symptoms are described as sudden onset, moderate in nature and partially improved. Health Status Allergies: Allergic Reactions (Selected) No known allergies. Medications: (Selected) Prescriptions Prescribed Lyrica 50 mg oral capsule: 50 mg = 1 cap(s), PO, qPM, 30 cap(s), 3 Refill(s) baclofen 10 mg oral tablet: 10 mg = 1 tab(s), PO, HS, 30 tab(s), 2 Refill(s) diclofenac sodium 50 mg oral delayed release tablet: 50 mg = 1 tab(s), PO, BID, 60 tab(s), 2 Refill(s) Documented Medications Documented D3-50 (50,000 intl units) oral capsule: TAKE 1 CAPSULE BY MOUTH ONCE A WEEK ZyrTEC 10 mg oral tablet: 10 mg = 1 tab(s), PO, Daily escitalopram 10 mg oral tablet: 10 mg = 1 tab(s), PO, Daily, 30 tab(s), 0 Refill(s) melatonin 3 mg oral tablet: 3 mg = 1 tab(s), PO, Once a day (at bedtime), PRN: for insomnia, 60 tab(s), 0 Refill(s). Past Medical/ Family/ Social History Medical history: Resolved Lower back pain ([id number]): Resolved.. Surgical history: E (more content not included)... Normal [facility] Urgent Care [place] 023 Urgent Care Record [facility] ? Urgent Care [address] [place], [place] [id number] PATIENT DISCHARGE INSTRUCTIONS Patient Information Name: MICHAEL RAMON Age: 37 Years Date of : 1985 Reason For Visit: Medical screening exam; [facility] F/U-RT FOOT Arrival Time: 10/01/2022 11:44:26 Primary Care Physician: Thu Baldwin DO Attending Physician: Mati Bell PA-C Comment: Visit Diagnosis: Diagnoses This Visit Contusion of right foot (S90.31XA) Elevated blood pressure reading (R03.0) Hallux rigidus (M20.20) Lumbosacral strain (S39.012A) Medical screening exam ([id number]) Sciatica (M54.30) If you received any narcotics, sedation, or any other medication that causes drowsiness for the next 24 hours, unless otherwise directed: ? Do not drive a car. ? Do not operate machinery such as power tools, lawn mowers, drills, sewing machines, or stoves ? Avoid alcoholic beverages and drugs for allergies, nerves, or sleep ? Do not make important personal or business decisions or sign any legal documents With: Address: When: Thu Baldwin [address] [place] [address] [phone] Business (1) Within 5 to 7 days Medication Information: The exam and treatment you received today in the [facility] were for an urgent problem and are not intended as complete care. It is important for you to follow up with a doctor, nurse practitioner, or physician?s trust administrative assistant for ongoing care. If your symptoms become worse or you do not improve as expected and you are unable to reach your usual health care provider, you should return to the Emergency Department, we are available 24 hours a day. For those patients who have received Radiology results, the interpretation of your X-ray as given to you by our Urgent Care physician is only a preliminary report. The Radiologist will review your films and if there is a change in the diagnosis you will be notified by phone. Please make sure you have provided a working phone number so we can reach you if necessary. In the event that you had a lab culture while you were a patient in the Urgent Care, you will be notified by phone if there is a need to change your antibiotic. Please make sure you have provided a working phone number so we can reach you if necessary. [facility] Urgent Care has provided you with a complete list of medications post discharge. Please inform your diamond powder technician/provider of your visit and for further instruction on these medications. Any specific questions regarding your chronic medications and dosages should be discussed with your primary care physician(s) and/or pharmacist. Additional medications on your home medication list not specifically addressed. Please contact the ordering physician if you have questions about these medications. baclofen (baclofen 10 mg oral tablet) 1 tab(s) Oral At bedtime. Refills: 2. cetirizine (ZyrTEC 10 mg oral tablet) 1 tab(s) Oral every day. cholecalciferol (D3-50 (50,000 intl units) oral capsule) TAKE 1 CAPSULE BY MOUTH ONCE A WEEK. diclofenac (diclofenac sodium 50 mg oral delayed release tablet) 1 tab(s) Oral 2 times a day. Refills: 2. escitalopram (escitalopram 10 mg oral tablet) 1 tab(s) Oral every day. melatonin (melatonin 3 mg oral tablet) 1 tab(s) Oral once a day (at bedtime) as needed for insomnia. pregabalin (Lyrica 50 mg oral capsule) 1 cap(s) Oral once a day (in the evening). Refills: 3. Visit Information Allergies: Substance Reaction Symptoms Type Comments No known allergies Drug Vital Signs: Vitals and Measurements this Visit (last charted value for your 10/01/2022 visit) Vital Signs This Visit Temperature Oral: 36.7 DegC Peripheral Pulse Rate: 79 bpm Respiratory Rate: 18 br/min Systolic Blood Pressure: 147 mmHg Diastolic Blood Pressure: 95 mmHg SpO2: 95 % Oxygen Therapy: Room air Blood Pressure Method: Automatic Problems List: Problem Onset Comments Depression Lumbar radiculitis Obesity Patient Education Hypertension, Adult Your blood pressure was elevated today. Hypertension is another name for high blood pressure. High blood pressure forces your heart to work harder to pump blood. This can cause problems over time. There are two numbers in a blood pressure reading. There is a top number (systolic) over a bottom number (diastolic). It is best to have a blood pressure that is below 120/80. What are the causes? The cause of this condition is not known. Some other conditions can lead to high blood pressure. What increases the risk? Some lifestyle factors can make you more likely to develop high blood pressure: ? Smoking. ? Not getting enough exercise or physical activity. ? Being overweight. ? Having too much fat, sugar, calories, or salt (sodium) in your diet. ? Drinking too much alcohol. Other risk factors include: ? Having any of these conditions: ? Heart disease. ? D (more content not included)... [facility] Progress Note - Nurseon 09-07 Progress Note - Nurse Patient called saad uesting a refill on diclofenac. Order is sent to Bia Goldman CNP for approval and signature. [Electronically Signed on: 09/17/2022 15:26 EDT] Dana De Dios MA [Verified on: 09/17/2022 15:26 EDT] Dana De Dios MA [facility] Coding Summaryon 08-15-2022 Coding Summary HTMLBase 64 OswphmlyVCg0nFb+PGhlYWQ+PE1 NRNMuT53paVQnpM2gV0WHOFrCWy dlCZTGVBuJFzBippLeET6byBFjQ XJu IC8+MV4jTZZlZajenSSsk8F7nBQ 6K63oda6iDHuxhME4PTObLkZjxg ixm9qqoSj0SUddCaeqQiKd IPAteD15MYW6aZ66Ns71bKOokLA of7mshEt3EtVyTTVmWJS3iYvzXB qqe1VnCAOxI11oxDGug3H6 QJPoeZonfNOpCeQciSP3aS3cMUw hromdz9wcznhoSjg6cl64oWWhb5 K2fIE2G7CrhrK8TBGkcPYz OchjkOARqT5uoufae0fchbxjAkE uKVErFWh5FKc9QFDzrMulMhEiSE 83KCY8BADlzfSqO9KfXEWs gUapJuK7j2M4Wf9GC5FHNumiE6J NTUFSWTwvdGQ+XV84xy50B7SbNg juNoj2AAMbKNB1gIC0wA3j ADXaHExwy8Y2mIV3W2KipbBkkk7 yy1ypIKXqXMctE15afQFdi7I7MW GggMS4TFVvdPkcGxHfzJ09 Oyc+YCJthWllh3LcMrfzd2npn2y zpAs1NcvnMCXyneYuuJwhVEW6b8 JgAp7nRBXixGP3yYG2gD2j JfYkBcE8TYzaL548ViHcwXMoXdn sF13iO5GrvYP+LUVpYgu1ZCVqkK wqGT2mF0PvCAGaazwgfZBu cQepVN7wNWJtxqxcYPIolP4sLCZ kS4a4PxAoUhZ6KYqhO7GiCAMeme whTf87sN4kBzSiLnT2HJvf Z0IcdrQ3TSYiuGQbURltAVP3U92 iz6Z9VOGzRBSzLBB0xQB9yL4qgG lnbjogbGVmdDsgdmVydGlj HHewAPueK288DNDpsZfyVoQrETa uZyBEYXRlOiAgMDYvMDgvMjAyMz wvdGQ+TKOnYPK6aSliTJCh cKToWMzdHq8ayEmgnZanLZ1rCZF ucbdnARZdeC0nUXCgmMNulMotDS 5pPPNrllkqo793TuMhOMZ3 FHVcvXLeA2OjmY4fOnEtHXIrBCV fJ7MxqBMoOUkuL046YHabKsP2JG IhshIxX0UxKPXbvSyhHiH5 d8Z0Bs9Pn6WytimdP0FhbHJfGjW xIrjeRRa7Q5XeKsvswKH+PC90YW EbSS35TIm2DOA0xJzrQClh UXDxH7WwbF8rTnUyGYEkZAItXga +PHRhYmxlIHdpZHRoPScxMDAlJy NplVwbGO4qKh7eJMQrIIDs oFghaLPuHxJfg6saVWCdBFdxZA5 ekQpbP9UpePR2NTRrw1c8Lm54C9 1jX6DzgQB+NWOfySV2yKX0 xW1wIpXfMeE8HNlnF111MqNlnER mAgggx4ugh9hqpCs6AkW4FRKupj KmwVcjIQN4e0LyUs74Q48g IHdpZHRoPSIxNSUiIHZhbGlnbj0 lcK3xYx8+KJOkiYU4sFZ1wR9iDx HuKhT8BKyvY783YzNweHHa Kneau9lar9rbyCu8IjYaNPCjdxK qwTylZBW8u4ApCu42F4MgfVqmv9 MlMhq2ao14sIKwa5N1zKV1 Z4RjEXRdeqbpzTJfbRtrMT0jXZJ cqmlbNASppY1mARUmF5i9HiZdJo N6YZwtL8NeloT8JRPwgNXk ZAUgiVWCoY8zvmewb3cfmbfrUrY eCKJoKIw3OLs7NQAomIlmYxVwWA P8WsV1BCQ0pIArrN6tjTwc ygxfaQ1eQzt+DXO5ySWqkVOJZU6 lOjwvdGQ+HYTxJLX8wZldZJlyPR FaeI0iUDOsB6x2GsObWkM9 CIuuX2VcixI5IAHlpTJzWBUohEE WoU9mvovyz4prorekPjAcBPHtVO q7IMr9PLHusGchPbSpGXK7 MbN8CYO5xFBjcW6jtCdinqpujR4 wOyc+XfykvWifIWB6UIb7E0UkIm k8AKVujIkmPP1tkRLmJQto Wp3rpJognUhxWG0aJWYgldzwd64 6IlOdq9oyAWKsuPEmSBikCLZ1C3 9sm3P2CIEkHSXzWWH8lIF8 dZ8jcCepdgeimHIogXpykqMbeAh xUSvlDTawE785VOFpjFeaKqMtSX s1X0HnAyp7ZOKkaNpyRZ8z iRNuUGucWs6hrOpcuSamCS6sUPV esvsti808TbEzp9jmRHCyeFBqIZ mcIYX4S92an3W3CJJmAZPa TOB0yCH8jS0fqRlkkvomvBRfyZr gxbEtuCcwDVomPMzcF883AASlbL ztFgKzoNs7W7RoYpe6XOAr wIlaHR8naJKcISoiAm7hlZnsiYs aDR8nFXVsowhhq299GgHzt0foEU DwdOFqJOraEGM7N71fd8H8 QZBiVANkKCL4mQK2iY9fbNrfmwt gbGVmdDsgdmVydGljYWwtYWxpZ2 46IHRvcDsnPlBhdGllbnQg RQfnAGj3F3UfIwqzwHA+VD46TEW bFF41uDJboNPcv9hhvYd3NwTcBI PpGMA9lZnbSZlbh4UeLSBd F64aoFUcv3P8NCNjqPnvhPFdEcK koUV9pA8dUQykblouh7varmqpKg yeu2sfxj61tV79B22lDZok BPPdVBXvGKHlBUJsoLklap8geN4 wIi8+XSGgzBJ0kED8aA1mTIPySe P6YIytB119CbZoiWXqWyii w8nqh7ayxVd0DqQ0VXEtsaCyxYl qQSC4s3PmBp87X39tYBlqEVNeMK AzGERbUSAwqFqooe3ntN8t Ii8+IGYkaYT7xVA3cW7mFyLtUwO 6WLlsL497IsOnzGGsXxrcH79aZ9 JvdXA+DSQiTop0WMKwrEye QV0bmXOhUJbcYb4sYAM8DtTlIoI dOOwyM8XsAQKxkgnllhdvxDP2SC XxHAEsyD36Sh6wwHecYOMy jPJUcR5jiyffx8krfhdzGaYgFHR gMLe1LHj0QHMvnIftZoZeXHM1Yu Q7ZFG8cPWalN5efUruxluj zY2rC7EdJZUbfavaIf88tI5hIzG yEgB9PJjmNca+TVVMTEVOUywgUk RDUFQUSKFHJViBXqL2F4Tc Nkj2QNOydYkjNB8ckCBnZHudRh2 xuIaujMgjEH9pGEOllgmqAVJbbJ 4aEMAyuNGbxNtkHG8pMANg mztei769GqNqMDL0IQGppIFaA9G mrI7gCkZcYLAdJFIyJ2JgeXYzBC slL754XFiwFeA5THHebzQq N0UkSITfcCtxGwP0j9A3Ej9kWQ1 sDo3xQBv6DH39RB82vTEbh0T9jU E1A8PsWFWqllxrduxieNV2 RCOlWDXrfV51vUPyBDnnJl9ck0Q 2b139MGLmFAOptF16Tb4hgIpmVC JxzHUEfH4maeazn1droqal HhUnIQAhXSp8EEd5MYDjrXguMkD rUXI9QsK6UWA4yECocD9sbTupnt kqnT1iCvm+MzcgWWVhcnM8 M6LoMjx4NFIgpSlhPA9fgKQiBGp qMr7omRdiqPfmVT2fWSJmkfccTY DcxE3iYZAehPYtmNfrHT1x DHKzngllq905OaXrQLU9AGGuiQV uE7OfuA3tRaFhJROaTNCuY9GrdG LxTAmvI649PWxhLoM3TMGr dfLqQ6RtYSVlaYdhEcM4s9X9Zc4 JCE6KQHI7C4VaFhi4FKAotHuvUG 1isQJuTLzfOo5lkVbxpDzw VE3fKYKcqiquKFZyuN9aGGWaiWZ twDfyOK7oMAIorlswy268OrWbAX C3ISLyrYEyK2VwwQ4xSoFa CXEfZNJqC7RefWVtGPmwD329EXq wVjA4PIRjmoOcY0ZfNSZfwNjkOr C8v0U4Pn9GWTR0ybFfwbbp T7L3gVJ2aSChfBukxNU+SC94fz8 3V1HoXlbgMuj1BDTgKOR3dEA2kZ 8yPAObZUtic3C4cSA8A6Hv whLyyd6rf2mzYPLzMTpbR48eqJU uu9K8KQFuuHK2AKHrwYntSqOcdL 93Oyc+FDYowPfqo0TuNmme b5rej8ogbJj9YuCmVOBpxhXbgSm nQGO9l5WkCn98D99oCYlzKSDgHU IsJKVaVXUqyTxatp6gjP3w Ii8+TQTdiLV8eLZ6lH2nPxOkDkY 2PDdkP577QdPdbCBkZqbzh2ars2 bsiHh8JxGsYWZsuxCubEgm GBN7s7PxAz23Y0YyeJlaa0KfWrt 2bv27vSYdm8X6oSU1I3PrNOPhmd wseEAjyPhcPN1bPLJqheua TRAheL9sCHKvN9k8QcPwVhP4MLu dY1GsvxG1NJTbqDGdYWHueZVTgK 9jfbkxl1lvcortMxNbKEHo ELi5HHp2MGAufUvlPfZhMAI0EdM 8XDB0rCSerT2ssOjjdipkdL5cXq c+EZn5n5vhwNTyCQ3iqQN7 HE75LK56uBSyf1L4uSL2Q7ZfHDL arwmetecieYI5KFAqTKLpeM42Wd 4gbNfhRt2oIFOeTXA0YYZa bEPaR4EleA7iHkDgJERlRCSrO1W afMYkAKgbT608QBfqYsZ6FFTols AoD6PrGHQcuJtwKwH8o0X9 Qj8CBU95JE68ON68uRKlt7O7xVS 9A8UsGYQyzbskoxhuuXB3VNXyRL MgpH10Bt9kvIybSv2mXUAb HIU4FSBmcIYmZ6ExeK7qAcYdVQB kVOZbB2EukNZkQKdvG971TFjvSb V3PSCxdwVkT7IzRKZrvOrt UsA6g6E4Ae4VTc29HK16ZL41yGE fn8D9tSF1A4YzPANjbetbzkmbxX W3OVAfOYLjeM67De9ouTgs Re1hWJLqNMW7PSEliWNiA3BtgK0 fOtJqUECnASJjY9NgjOPgKNlzA7 43CHjhBgW1DQCnnnJyE5Dj PAYzlGfeOmB9t8H8Hp2YBMqtejy 4W4ZyMzexxMB+DO75CRTwKU57yU BliMLdh1boaIl3KaYqPSSg IHN (more content not included)... [facility] Provider [place] 08-09-2022 Provider Orders [id number]#1.00[facility] Billing Authorizationson Billing Authorizations [id number][facility] 08-07-2022 Provider Orders [id number]#1.00[facility] Progress Note - Nurseon 07-10 Progress Note - Nurse Pt called stating that Aqua Therapy was ordered several weeks ago while she was here in the office and at the time she declined. Pt has recently decided that she would like to move forward with therapy. Order placed and sent to Dr Longoria for approval. [Electronically Signed on: 08/06/2022 08:00 EDT] Deena Silva RN [Verified on: 08/06/2022 08:00 EDT] Deena Silva RN [facility] Provider [place] 08-06-2022 Provider Orders [id number]#1.00[facility] Coding Summaryon 07-24-2022 Coding Summary HTMLBase 64 YskizariKJf7uOv+PGhlYWQ+PE1 WOIOpH37fwCTgrM5ET4gSFZ4XSH CBJKVXDI1HLF6icEF4QYlnT6Oax iAv LtqmfPPfKQ07HGl1OSD0vFlkEFu gaP4ycKLfJ6f8JhMsCF40lL43BX boBENjVsG3HdNrptadqYVl G8ttYxHfwVZrViy+PHRhYmxlIHd jSIBmPDpoJXCfHzVbaCggPP1iZo 9yZGVyLWNvbGxhcHNlOiBj t7odPNXnSIozIM0ofZdpH7NvoTD 0KYCzm6z1Ri88wNB+QFIfDFE6oG qcSOrxx252DlHbo1ztQBB1 qJNrKQmxGZS8F52ai5C3RGHjKUD lOTG8bWO5iN5tvDxsrngcU6PmtU VaOkF1PMV4bVTdkH1lrBei kgkphX3qDbh+V89WVC0RRUEOAS4 NNiq1U5JzZrqbcNJ+ZM10OYDbAM 37eQKfcYOvv4rnaVf6IdJq WOTzJSZ6fGtwRDizh0SvYXKqO38 euWRag0N0TGVhhPynxDBtJjIeyF R5bN5aFRuajwrrb1nuygtt Vfwjd5xjaj61cP21S52hIQfoCPK lMWU7LWZmHOGvzOsary0zpD5oTu 8+SXuqx2cje5yeoZx4UwQo AGArhgMohKadVLD0x9KqXg52A9D mmEwei4SsOpv1iz66xVWca0Q0iT K1NIzsSEZepY1eCKgmNcW2 RWBbQiCbyX69vJKlXQzqGb7zoYw igDxbAE5cDLOwhlmbLOUqiF9iRX UosOVczWcaQC1aHAGogjzd o373TsAzJCY2DVTwmDHfV5CpzI4 lSrJyVTFgBUHeX5LwwCKfODlrA7 53NEflAcB5OJOqnnSjO3Mz VEZrzThoWhF9n8P0Lx8Sf1Rnxqz qYUN4MVkwYQE5SiP1RgVvZfA0O4 TcTje9MVWinFzsIE0oI3Cf AWJeivznereqwHL4MGRiTRLvwN0 3lWTkYMnaGi0vy2E9o225MNUtZE EyoY66Ij3soZekGXDemTLU cK0okcgur9euqvrgOoVvCCJnPTk 6BVs0PLXzlJufSoWhGVG9VfE8MN K3eFYwqW9tcFxwvudhrA3e Oyc+T06wqQ0tLRL9ICT3qgndTJN dhcMiVZ92LO48N2AeQyhsrJConI U+TVUefsMzmFnvQJ4aOoEk x6rkh6ZvTSpiC6PmBUBdJPdtRcw 9NTUaGHR6oUS8yS0kDJZhMZazt8 T0tMJ4V5NmecYjtf1au6wk GAFuQTmeV75nvOCpw5I3IGNfsDE 0ISAelOrfReLlhD49Tcr+PGNvbG eio8QlCzzwl9isq9fmaLz1 SrSuZTTrxvNzjMhjLLQ0n3IwOf9 3Y11xBOwvSPUvDHSaTYNyCSBilT uzsr2xkQ1mSq1+PGNvbCB3 iSU9rK7hGYReGzE4GFjuW009XiG ezRRnPsbnl4zbe2bwyPn3SxDxCU ArelXaeNqaLLS0h0BzIq67 H85sLLfbJVRmTLJwUCZcGZRlbUj awc5ifZ4wTo6+MD6wm8oiqk29zJ 48dHI+ALYqHOR5mXwoQSak CUTjfD8iFJjxPuN7UUXmXhCxmA6 1mDTqMFihHe0wyOjkeZimXA1tET Xkiwdwz864ZlMhu9izGXRi lLNcPNuhPNW4P90ku3X3JZEnYWJ vNDL7bEY4mQ4reVsxgarzxNIzkL xhasRnzJnfRHmkTSziO754 IHRvcDsnPlBhdGllbnQgTmFtZTo 4C0VwWdc7EUAmkNgjQT4bbMPyUM xcBe0myOdmtDzwSY5qMDXl qicfg714GpThe4clGCMplTXfCRq vPSY7I31pa5G8EPJtSLFpCXO9jA R7rW5ugZbsypsxsFJvrRxo prFmqSmwPMsbUAjpU060GJWatXy fQuFkomVlMMEkjES8PI10RU01fM Dah0E5gZA4C0DjBKQqkgsp rukjqES6BMJcEHIrxC94Ms1pdVo zYh4sPMBfCPF5JAUzzNHdR7XzmF 9fDqFdSHMfGFEzB4FaeIJn HZyjE592BBniGfF7EKCmsuAeW0K wVCFtxXoiGcH8l2C1Pb2PW8X3BC 02RS55wGVnx5S5bOO3Q3Pq FHBnyanlwuafaCJ3MNXfMWRzdD6 7Sg4pcAumYv1pXIFlVCB1CMDbuE FsK5YwmY7tTeYrAVQvCHEp B2QzfXOmZYjfS958RYbsTeH4BFY pskJjZ2EkULWdeWkbDyJ1s9M2Pi 7MLJt3LD18PX22xOLvt2K8 iZT2G3AwIDLcjeyykjvbpLL8QRT qYGGolL44Ni9mvMyiEg4pMHRoZV M7GVPtcPXzZ5ZxoJ3yNxUf MKCxDYNbG4GbrBOsQXeaV987TTu iOoY8KMIlbyYeL1ClUOJbrSeaTh N5d2E9Tp7BUDOcSN59EEE6 kJF1RL94CL45G4MvCiddgWSioNH +PHRhYmxlIHdpZHRoPScxMDAlJy DtuNryGF9nOh6cDSRhPTDs hEqvnKJuXgDyd7jpMYMcQZrkHJ3 vnCieU4AxdCU7JFMyy3y5Or56S3 1iV5UxzJY+LHDqaIE3fWI8 wJ0zLkObNlF3XFbeE833ThHeqWT dNtcxs4euk1nbkSj8AaY8FIOdzm NpyJvnHIG7b0EwHx46E13a IHdpZHRoPSIxNSUiIHZhbGlnbj0 igF7fJp9+ONCvhPA7fME0qF7cPo IgVtV5OQddF862VtLghIBa Wiyqo6ltn4hxwGi9IpCcCFIlhnB uvNxkUPM6z1XzFn21Z0LseCqvd2 SbYcn5mo11xXDbv0U9eDL8 C5BrEXQfxxslqTWaxHszBS0bGBN kangpWEAyzC2oWMUcO5t8DbOcOq P9YByjJ5YkskB0TNIdwSBg VBjsIBM5R05yf0X3KJUvOHGlZUJ 5cZP5zS1gtEgykeqczCXnfJnlyp EudRamGUbvOLvcB252EYQm rYseEXWicE2uCLJbjAJceHckXX2 qXLPycdibNp4QKYwAPkCyGHPLOV PZHMJVPOMSWT7ORZ83LW19 dOMxb5Z5jHO1Z2EvFIZghaixwqv zcFV3RCSdFTHvyS11fPHqRAynIs 1qa1G2g748ACKbFYJkbH76 Ld4syRveIYZosTHMpQ0cokrzc8h xlepwQxPnBOAmJGp1WRi5XAAqbD vaVlMhKVI5DuQ6LVO7fHDx jW2qmBsgpyjjtX0yAwq+MDEvMjc tUFu4EgsabWU+NPCnSON1aXvzKI qjYCMpbH0nNBHaF2l7YyDz RlZ5LVtcN9FaJYKvwiesVz92fP6 yHhSkVfO4OMvmC4DtpdO1PPUkjD QrBJnuKJZ3D18ye7Y2TPEi PNEdIEX6yUX1aY0daSpkeexvfZH zjTqrhyVkzLyfYAbhZJyxV678BX IjzWynKbA2LVmuLHOkCI50 QV59vOKgq8Q5zHA0I8YaUZWamag rcmemtUF0EHKkTOXifM99eQHxBD izAq2yt4S2n285EOEgAYDz cH18Nv9hbWrdMNSrsVUElK8nkwt hk8labkrzJaUkPROnTZt2BOp3CR WssXivOlFhMHV3EgC4LLY5 hPGlkK6bkLioghqwiL4dEda+RkV BOQkIQU25AK43mIJml9O9xUD3J6 UmBJKylpwpyfqjxKQ6BLRd RBIhnU43fOAxHFfxHf7zp1H0s65 7YYFpNMCjqJ05Dj9ikEipSYYazX RHqB2nlsraa4bsmqwnVqYm GVMhBJe3CYv5IABwfTaeAwCnETZ 7YoM7BHJ8bEJgcZ8poYznbxhyvX 9wOyc+R6P7C4FtGmancMH+ VH00SSEfLP57rLEopDKva9enlNu 8InBdRVKzIWU6cDomGRruo1FpJM TmG55quTZkz9A0HIKfoGbm jESzNzKlbTS8tT1kAQowhwoir3a jbuukYzuzv4ulek33pK77W43bBK dpZHRoPSIzMCUiIHZhbGln lx8clT0kSt6+SYAlfQB5qRO7sR4 sYhWzTfL1HVvbU185VtEfpRDaZe nzx6fli0ukdQr7WjNwGDRa lzFqhOznYBD4v1ZrTu60X62fMJu rXXKdRQWkEEIbBRGwcPwuoh7npF 9wIi8+JE6mz2oztq45bY73 dHI+SRXpWBP5uIapFOepBZIuwK9 pXBrbFsO2HAWyYuFtxI86sTWwLE yzDx1grAacfQtoOQ1fSLXq faaww540GzZfo5irHGCvjFBoPPl uJGF5O82lr1B5YEIuUOSzQXQ7sW H4mM9qpWofejrsoPBmbBit vnAaxJrzICfnMCleK998JRRqlBd tQgLomRXiZ8fmnqZLMU1qNhabnB Q+QOAfTED4uSjtIQspZPMx fT5aDSDqR2n9YzMhYnL1KZisD6S gdyQ8LUWdcJWlBTFuqAZZsY0miw bna8wclmoaTdBdNNIeOEg1 CCj9OKSalFjcEcSaRSJ4XoE5MWI 2yPFxeG8utLtgtnafnB5yDye+Rk lOOjwvdGQ+CQKnXWR9jGrj JYeqXVEeyH6xOLPrD2m1IcCxPfT 9GYsdM0MbdaH0NHDrqVNmOWOuuF VNsE9lyxggm8ttmgcgPnWc WPYcLOp4DNv4VXIacKijXrKrVEM 8ZkW0FHQ4xNIgqS8sxRkwcewnsB 9wOyc+TVJOOjwvdGQ+PHRk FUQ1iVawYMqmZDMcmA2lBPAjI7g 7VlVyJeF4PQjfF7NfopE5JVQugZ AeQSTazQSDoB5wgzhkk7dv gmcxIaRuVGXzKIu0QLq3RYOwhKn zDfMwGYR3NjG0ZJC3yCBphS3zpS fvlnmhxQ9oEtf+NCU8BSV8 FS84AG87Z3EpTsbuyJYoyEW+PHR hYmxlIHdpZHRoPScxMDAlJyBzdH rxFQ4uDz9jFIRvXHOinSfy cHN (more content not included)... [facility] Physical Therapy Noteon 05 Physical Therapy Note [id number]#1.00[facility] Progress Note - Provideron 0 07-19-2022 Progress Note - Provider [id number]#1.00[facility] Outside Recordson 07-17-2022 Outside Records [id number]#1.00[facility] Coding Summaryon 07-16-2022 Coding Summary HTMLBase 64 CazamzgbMPc4bSu+PGhlYWQ+PE1 STFYkF61eiPKlpL7YB4fMQD6UII QLXIIVNL0FGT8fiSI8DKgbL8Mds iAv UgyhgCZpNX58ZSz8XYD7bHnxLQu exW5hqKOfQ9j4PdCuAY63fV67HT vnXSYoHeW2SbHjoyyokYWv W0smMgGdnBBnHrd+PHRhYmxlIHd xTNMqGXotQRJiLvKpkYebSL6lDo 9yZGVyLWNvbGxhcHNlOiBj g8tyMCXcUQtgLQ0eiAvrD4HwtUC 1DVKre5t1Dd37sRX+FIHgCCT1jQ hxPHmpi286OmMol8jcPTQ7 zUDxXQfuDDE3F47pm4E6HNVjUSZ hFWE7vNC6qO8jjVyrkigiZ3KxiP ZyViZ0WKY3bOAohO6zfByl shissX5dCwu+H89GSQ7KBXXSUA3 XFsp6X0AoUuwgeOQ+TN42ROInFW 32tNXoxSIxq0dmiQw3NqKn YHIiEQJ9bAiiHSlht1VoWTVzI22 zzXJkq1O3VRPkrNrpwUKzMoZfzB W7zD7gKQihlkrpj8fthmtq Hsgfw0odft83mC96E70nAVgaKUU fIYY2RPXnZZElgKrkbz4sxW4zIi 8+AVpso8oxl0bbzLy2JmBs FGKnnrZvxHnhENP7d1NbEn01Z5D yjOmmx9SvLla5aq88tSFuo5A3fX N3XEzlXHYbvK5tQVvaOoP7 UEWeKtOssF78bZYbZEsjIm5exZw gwCpzTG2uGTXkbfclSWRhyA1gVG AfaFLyyPfgKM5fVOOvvzhf y927OyCiJVJ4UTLazDIuR9MivT8 oZiXxCTMkLAWbQ6GgqHCpUUdlT8 02IJmwCpP1XDLpvrBkB5Wr KOQjmPbiGbV6d3Q6Du6Mb5Ndmuo oNVF6QVvjBRQ6TzY6HrGkCiZ0Q3 OhAep8EXAmsLdcXP0bG3Zb GQNkpogelicfaNO5HJVxZONqwD8 8nJLsJWvdIk1xy4K4z255ZYDwMF UweO07Tl9juWjdAXGdtUYO gD7ucrldx7ovkxhqEhUoOQUiGUh 1UFj3PYDcdUslHsQqMIQ6YbW9AB U9vQJnlZ6xwCgimikymT6e Oyc+Y77erX6sIUZ0JWE6fcvlPYM nstPaXH75WW12E7XxOgaatJZteW U+XYSsjyNneVapRM8oAgXf l5vzn7PdJZglO4IpZTIpJXxcEhy 2SEJrEOA6mSC0kG4vJMLoYUsgm0 I5fWD4Z4NpbaFhtf5br6wz LZEtMMsyR43naPUhj9I6TULaqYS 3LTNyzVahNiRvnV38Etl+PGNvbG xoe6RgJufka7ioa1cmmIi7 MhLhQANlybXgtVxeJPM8t7CxXu0 7P73wLVdnRKGyDEInFYJvLETydH sbas6gvY4cQo7+PGNvbCB3 yPR1qM2hJIVlCaD9AGavT592NlQ lnZObXdwti1dnw4qnmYe6RfAsRW MvbwIfuNslHKE6w4JjYx32 D96dKGzkBUHfRTYfBVSdSDEiaRq ptg5mtA1vKt6+ZN9tv5lchn81hX 48dHI+NYSzBGO4aYiiPBxk IPSjhM7yUMftXqZ7GKFfGcJkeQ9 5gGRfOHpkFa5cjZokxSleXW4iBE Ujiyqti648FgXwd3imSACw jVCdAWhgTOR9O71ll7O9YQHhHFW zNYC1uJJ4rF4dwUqikhjjuXVkjH ncqsMswWqfCItwXTssZ936 IHRvcDsnPlBhdGllbnQgTmFtZTo 6P6EoLcn9WKZxzEodTQ9tmSJiLC ejLh6heQuooMibDO5oDBAv eunen665NmXwh4ydEUXriJIdNWh bGXX9X17su6E4MTKfRYNlMSI5zW V2vU9zqRkaurovnPOfwIno naPuuPhcVHfwJXsiR426IOTxnVi bEtCixaKrPGQfaDF7CM23JH00qY Pev2G4zEI8F8MxXWSkifdm juiteZX7MHMzFMBbiT55Sl2bfEc yYy1aFIXuEIH4FXUhvMWmR0CxwZ 4cTqGjZMQfOZDhL9IjeHCs XFmxY941TVdfUyG6IHOypiHtB9D dJKKydNymDlL6y9J3Gi9DC8U6VE 60UV36pUIyg0B4kDN2J0By IWIhaxgonzwpsHD5EUQpKIRuoG9 8Nb4okYisTu2cPFTpFUM5OXDcaD SaW1LjcN4fJgBuULWlWZBh T5EjmVDgAAifT467FDrcOpA8MAP rrcNzD8AwODFqiQxsKcT4n5E4Nb 6FDOc7NG71GS34qVLxj5H2 rXL6L7GnWEWyikpfbfdhuQK9ZWB sHOWgaN68Fz6lkVmrUr1xCJRgZA V3WWIewYHzK6GoeN4gTlYx DUOgVLIlB8FkbMPiWWveT002BBf iXuQ6NRTaxwMuH3JrVZEnoSjfYs F4n1P0Pt5OSNGeOD63GVY6 bMD3QF30YY64A9UaPrudaEAlbWX +PHRhYmxlIHdpZHRoPScxMDAlJy DjmWliCH6jJk3zJUKmINXx lEldjEMiTgGdb0ahQZUiEHzlYZ7 bePplM3ZivAR2YEWna9p5Wb10Z3 3vT9WkaIQ+WWZnqRH2fTE5 wU8gUmSjUyR6VGxxA796NmZheVH gNyuzf3jzj6jmhOw1CaE8VWFpij XzuZnhJKV6r3UnCm74B95v IHdpZHRoPSIxNSUiIHZhbGlnbj0 pmE1bWs5+TEZrkST8aCU5iN8xQm BjXqN0OMiqA176ZoXszDRu Ljvnv8rgm9rxjSf7KoUqTKYuliJ rvDwoYPQ6q8CfFl64B9YcfCjtn4 PkBzq6qp16fNNfx7K8fRY4 D4VxDPElvttdiHOvhZbmPG3aJBP btjmwPPIqeU4kYDZyI9b8ByZmPy N9IRhuX1KxooW1MDIvmXIo VKsaZWG2A91tq2E3FZWyEJUgUIC 5vCB7eH4iqTfudrvmiABodQfley DzkVyyVAcfADdgT131WHHi zXrjQYXwlN1rSUNasNBodBgmNX7 dYTBkftjmJm9CLElBFfDnGLARWN MUGQVUQMOKCU8NSG68YV85 rNUyl9E9tGR0Z6NmWFKsygfkyik nrMR4IOKaQGSycK39uLJuTCyjYn 3ox8F3f930GRWbJNByaM86 Ah0uhRrxJYCohYFToQ8rdrlnw7f ierxzDhHpNPBdKBl6DQc7WLRioN imUnNlKPT9CuT1KVT0nJWv dU8kuTmlkrgtxP7zEpi+MDEvMjc rVIv6RmtbpVG+HALdUBR7dGrtDN quTNJinZ9vCPNrN3v1CaKo DiC2YMkfK3MwYZHxggmmSf87fL1 cQaEgUgZ2CLvlZ9TlqjN4FXPibI SgKEwxEJN5N30vz1K2OGBt JJWrJGI1jZU6oO9jqJqrxxshmDB usFsyqbAqrFxwGBsuSPqyJ664LS SpuWpkGyY4FOmuTSYzNK35 FH89mJKbk6Q5wFZ2F6BkWKUgewn nxelqaKM8OXBqTSWqnA15bMVhEW fjFc1bt3O1d031LTIxUFIk rZ13Xg7leHrtGGXysLBXbO4ocqn wm1rbactyGxOjGDMdAAr7ZAh1US VqmLjlWeGzZJM2PuM4FJV0 qPEhjV9aqIxgepvkfG7nDyj+RkV THKoPIS23OU09lFCib8P8nEU4D6 SwLRGextovfuhmeZV5MYId HUCbcN34hBFlQTygKj0fl1D6q80 4PCSyIUUahD22Xl2iqYadTKZqzL JXoD4jewvfb0rmidtwHgGw OYVcYRa1AIf8BROnpFtqWoJrURI 6FxB5ZQO3wZXbtL2wcKrmrezmrT 9wOyc+P0O2G1GlOerahXJ+ KK45HUWoQA22pLBqeQLtw4gddAs 2CeXxUJVvOSL1qNtwSLmbv8LaSF ZhY46zwOFpn5R6CBZqlKte jDMhGwKilIG6tC8bPXjiadnrv0a nqnxmHdbsr2apgy18lS43F21nVD dpZHRoPSIzMCUiIHZhbGln fg8tpQ5dUn8+HXIecDB0wYU5vI0 nOmEyIuG3VPfyD730OiQxkIJtWx tun7ulj8icyWd3YtJrSVWy ivSvmNleYXM3n1IaAb43D66fLRd sOHMcNQDnSFXqJRTwbFxxud1ycF 9wIi8+AX1kc8hoja73lQ36 dHI+GIQuPLF5xUtxFZjlVSGdiG4 nQDnxSnN6RPMpYbIqgS03oVYsDS uiIl3hwXbrmRxlHY7tTSAe vmcxo540CtYhn4rtZXFvlXQzOUt jZTC8A03zq2W0YDRyVFXmMIP3yR G1nS6tlWhssycalKZecRdn tnDjpUqpZNryIZafE716KOXrlTs gLxFgmHUgD9oqzgMFDG7gGboclU Q+XBQdMLQ8tUdwSEzxAOYd zA8jGQYtA2n1VbSjZgL0NMqgL7D ishP6PIThgYFgLMLzySNQkQ6pav lti9qysueqDjGrYXSjNVg3 KOv0PHSruQbjRyEsGFF7NtV7OOO 2lLInbK0usPjcbqvilI4tKur+Rk lOOjwvdGQ+PAGqHZV6nHxq UYkhSPYqkU6jUANaH6l9YkYrOyM 2QKlmM1OxkoM2FABjoZEpNZFihR MWtL5mvcrcj5ajcleoLpDe XMYmSIr2OAp3FWBtsWsuZnEwLTO 9DaL1JJG7rSEghF8ctZdnpglvkC 9wOyc+TVJOOjwvdGQ+PHRk FIT3nGmlVIbvJSJqiR6kCRErF3p 4IfWhUwL6SJjvR7NpirY6HTOhiR SaVTWlhRHQlJ5cldqvn8xa gwcbNpHlPDJlJVt0VAw1QMXpoBh aJjSeAHO0IeD6NKB1mCYccI4svF whjratkR0tOho+WGD8RCZ8 RF90VK09S2IlCjowqDKbqDP+PHR hYmxlIHdpZHRoPScxMDAlJyBzdH arSG1kMh7hBEOjZLVliTep cHN (more content not included)... Normal [facility] ED Clinical Summaryon 2022 ED Clinical Summary [facility] ? Urgent Care [address] [place] [address] [id number] Clinical Summary PERSON INFORMATION Name: MICHAEL RAMON Age: 37 Years Sex: FEMALE : 1985 MRN: Acct#: Visit Reason: Medical screening exam; [facility] F/U RT FOOT Arrival: 07/16/2022 10:28:51 Discharge: 07/16/2022 11:30:00 LOS: 000 01:02 Check In: 07/16/2022 10:28:51 Checkout: 07/16/2022 11:30:00 Address: [address] [place] [id number] PCP: Thu Baldwin DO PROVIDER INFORMATION Provider Role Assigned Unassigned Mati Bell PA-C ED PA 07/16/2022 10:32:01 Mariza Neumann ED Nurse 07/16/2022 10:52:55 VITALS INFORMATION Vital Sign Triage Latest Temperature Tympanic Temperature Temporal Artery Pulse Rate O2 Sat Respiratory Rate Blood Pressure /60 mmHg /60 mmHg MEDICAL INFORMATION Medications Given: Allergy Information: No known allergies PHYSICIAN DOCUMENTATION DISCHARGE INFORMATION: Discharge Disposition: Home Discharge Location: Home PATIENT EDUCATION INFORMATION Instructions: Hypertension, Adult, Xdvl-[id number] Follow-Up: With: Address: When: Return to this practice Comments: August 13 at 11 a.m. With: Address: When: Thu Baldwin [address] [place] [address] Business (1) Within 7 to 10 days DIAGNOSIS: Contusion of right foot; Elevated blood pressure reading; Hallux rigidus; Sciatica; Strain, lumbosacral Patient Understands: Yes - Patient/family/caregiver verbalizes understanding of instructions given Comment: Normal [facility] ED Patient Summaryon 023 ED Patient Summary [facility] ? Urgent Care [address] [place] [address] PATIENT DISCHARGE INSTRUCTIONS Patient Information Name: MICHAEL RAMON Age: 37 Years Date of : 1985 Reason For Visit: Medical screening exam; [facility] F/U RT FOOT Arrival Time: 07/16/2022 10:28:51 Primary Care Physician: Thu Baldiwn DO Attending Physician: Mati Bell PA-C Comment: Patient Education With: Address: When: Return to this practice Comments: August 13 at 11 a.m. With: Address: When: Thu Baldwin [address] [place] [address] Business (1) Within 7 to 10 days Hypertension, Adult Your blood pressure was slightly elevated today. Hypertension is another name for high blood pressure. High blood pressure forces your heart to work harder to pump blood. This can cause problems over time. There are two numbers in a blood pressure reading. There is a top number (systolic) over a bottom number (diastolic). It is best to have a blood pressure that is below 120/80. Healthy choices can help lower your blood pressure, or you may need medicine to help lower it. What are the causes? The cause of this condition is not known. Some conditions may be related to high blood pressure. What increases the risk? ? Smoking. ? Having type 2 diabetes mellitus, high cholesterol, or both. ? Not getting enough exercise or physical activity. ? Being overweight. ? Having too much fat, sugar, calories, or salt (sodium) in your diet. ? Drinking too much alcohol. ? Having long-term (chronic) kidney disease. ? Having a family history of high blood pressure. ? Age. Risk increases with age. ? Race. You may be at higher risk if you are . ? Gender. Men are at higher risk than women before age 45. After age 65, women are at higher risk than men. ? Having obstructive sleep apnea. ? Stress. What are the signs or symptoms? ? High blood pressure may not cause symptoms. Very high blood pressure (hypertensive crisis) may cause: ? Headache. ? Feelings of worry or nervousness (anxiety). ? Shortness of breath. ? Nosebleed. ? A feeling of being sick to your stomach (nausea). ? Throwing up (vomiting). ? Changes in how you see. ? Very bad chest pain. ? Seizures. How is this treated? ? This condition is treated by making healthy lifestyle changes, such as: ? Eating healthy foods. ? Exercising more. ? Drinking less alcohol. ? Your health care provider may prescribe medicine if lifestyle changes are not enough to get your blood pressure under control, and if: ? Your top number is above 130. ? Your bottom number is above 80. ? Your personal target blood pressure may vary. Follow these instructions at home: Eating and drinking ? If told, follow the DASH eating plan. To follow this plan: ? Fill one half of your plate at each meal with fruits and vegetables. ? Fill one fourth of your plate at each meal with whole grains. Whole grains include whole-wheat pasta, brown rice, and whole-grain bread. ? Eat or drink low-fat dairy products, such as skim milk or low-fat yogurt. ? Fill one fourth of your plate at each meal with low-fat (lean) proteins. Low-fat proteins include fish, chicken without skin, eggs, beans, and tofu. ? Avoid fatty meat, cured and processed meat, or chicken with skin. ? Avoid pre-made or processed food. ? Eat less than 1,500 mg of salt each day. ? Do not drink alcohol if: ? Your doctor tells you not to drink. ? You are , may be , or are planning to become . ? If you drink alcohol: ? Limit how much you use to: ? 0?1 drink a day for women. ? 0?2 drinks a day for men. ? Be aware of how much alcohol is in your drink. In the [place] one drink equals one 12 oz bottle of beer (355 mL), one 5 oz glass of wine (148 mL), or one 1? oz glass of hard liquor (44 mL). Lifestyle ? Work with your doctor to stay at a healthy weight or to lose weight. Ask your doctor what the best weight is for you. ? Get at least 30 minutes of exercise most days of the week. This may include walking, swimming, or biking. ? Get at least 30 minutes of exercise that strengthens your muscles (resistance exercise) at least 3 days a week. This may include lifting weights or doing Pilates. ? Do not use any products that contain nicotine or tobacco, such as cigarettes, e-cigarettes, and chewing tobacco. If you need help quitting, ask your doctor. ? Check your blood pressure at home as told by your doctor. ? Keep all follow-up visits as told by your doctor. This is important. Medicines ? Take [id number] and prescription medicines only as told by your doctor. Follow directions carefully. ? Do not skip doses of blood pressure medicine. The medicine does not work as well if you skip doses. Skipping doses also puts you at ri (more content not included)... Normal [facility] Urgent Care Note- Provideron 07-16-2022 Urgent Care Note- Provider Patient: MICHAEL RAMON Age: 37 years Sex: FEMALE : 1985 Associated Diagnoses: Contusion of right foot; Hallux rigidus; Sciatica; Strain, lumbosacral; Elevated blood pressure reading Author: Mati Bell PA-C Basic Information Additional information: Chief Complaint from Nursing Triage Note : Chief Complaint 07/16/2022 10:53 EDT Chief Complaint here for [facility] yoana, of foot injury, states it is better but not 100% 07/15/2022 10:00 EDT Chief Complaint right low back pain . History of Present Illness OCCUPATIONAL HEALTH FOLLOW-UP Date of injury: 08/26/2019 Claim #: [id number] Employer: [employer] Mechanism of Injury: She was moving boxes of [employer] when one fell onto the top of her right foot. 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 On 08/26/19 she was moving boxes of celery when a box fell off of the cart and landed on the top of her right foot. She was initially on light duty per [employer]'s telehealth visit. When she was not getting better she was referred here. X-ray was found to be non acute on 08/30/19, but she continued with pain and swelling and inability to walk/stand for an entire shift in normal shoes. She was placed in a CAM Boot, MRI was performed which showed faint patchy edema noted in the plantar aspect of the 1st metatarsal head with no apparent OCD, small dorsal osteophyte to the dorsal aspect of the first MT with an in tact Lisfranc. She started following with podiatry who requested additional condition of hallux rigidis and when she failed conservative treatment they recommended a right first metatarsal phalangeal joint arthrotomy with possible cheilectomy. This was denied, but she opted to proceed with surgery regardless. Since that time she has won some hearings and her care is being covered under the claim. Right first metatarsal joint fusion was July of 2020. She was compliant with the PT that was approved and allowed through the claim, but continued with daily pain, requiring frequent OTC pain relievers and Ibuprofen. She still did not tolerate a shoe and after repeat CT scan of the foot, the request to remove the hardware was initiated. This was approved and performed on 11/05/21 and seems successful at this point in time. She feels the toe is about 85% improved at this point in time. She completed the PT that was allowed, and is currently at 10 of 18 approved sessions and is demonstrating good improvement. She arrives in a loosely fitting tennis shoe today fore the first time and reports that she is tolerating a shoe for longer periods of time, and admits to significantly less pain and tenderness to her left great toe. Since this surgery, however, she has noted an increase in right lower back pain that she relates to this recent surgery. She denies any previous low back problems. Since walking in a post-op shoe post surgery and elevating her right leg for two weeks post op, she noted the start of right sided low back pain that radiates down into her buttock and down the right lateral thigh. No other injury or strain she can recall. She relates this pain as being related to and cause by her recent right foot surgery and recovery course. Tylenol and Motrin are only minimally helpful. I wrote her for Prednisone which she took for 5 days and Flexeril without much relief. Additional conditions are pending and she has since seen her PCP for this and used her private insurance for an injection that was done recently and was helpful. She is very deconditioned from being off and sedentary throughout all of this. We requested work conditioning, which was finally allowed, but not tolerated very well by the patient. PT has been helpful as of late, however, and she reports she is incorporating some increased cardio into her current PT sessions and is feeling better and stronger. She denies fevers, chills or malaise. No other joint pains or myalgias. No numbness, tingling or weakness. No incontinence. No skin rashes, ecchymosis or abrasions. Healed surgical scar. No previous foot injuries. There are no other associated symptoms. Nothing else makes the symptoms better or worse. Symptoms are described as sudden onset, moderate in nature and only partially improved. Health Status Allergies: Allergic Reactions (Selected) No known allergies. Medications: (Selected) Prescriptions Prescribed Lyrica 50 mg oral capsule: 50 mg = 1 cap(s), PO, qPM, 30 cap(s), 3 Refill(s) baclofen 10 mg oral tablet: 10 mg = 1 tab(s), PO, HS, 30 tab(s), 2 Refill(s) diclofenac sodium 50 mg oral delayed release tablet: 50 mg = 1 tab(s), PO, BID, 60 tab(s), 2 Refill(s) Documented Medications Documented D3-50 (50,000 intl units) oral capsule: TAKE 1 CAPSULE BY MOUTH ONCE A WEEK ZyrTEC 10 mg oral tablet: 10 mg = 1 tab(s), PO, Daily escitalopram 10 mg oral tablet: 10 mg = 1 tab(s), PO, Daily, 30 tab(s), 0 Refill(s) melatonin 3 mg oral tablet: 3 m (more content not included)... Normal [facility] 023 Urgent Care Record [facility] ? Urgent Care [address] [place] [id number] PATIENT DISCHARGE INSTRUCTIONS Patient Information Name: MICHAEL RAMON Age: 37 Years Date of : 1985 Reason For Visit: Medical screening exam; [facility] F/U RT FOOT Arrival Time: 07/16/2022 10:28:51 Primary Care Physician: Thu Baldwin DO Attending Physician: Mati Bell PA-C Comment: Visit Diagnosis: Diagnoses This Visit Contusion of right foot (S90.31XA) Elevated blood pressure reading (R03.0) Hallux rigidus (M20.20) Medical screening exam ([id number]) Sciatica (M54.30) Strain, lumbosacral (S39.012A) If you received any narcotics, sedation, or any other medication that causes drowsiness for the next 24 hours, unless otherwise directed: ? Do not drive a car. ? Do not operate machinery such as power tools, lawn mowers, drills, sewing machines, or stoves ? Avoid alcoholic beverages and drugs for allergies, nerves, or sleep ? Do not make important personal or business decisions or sign any legal documents With: Address: When: Return to this practice Comments: August 13 at 11 a.m. With: Address: When: Thu Baldwin [address] [place] [id number] Business (1) Within 7 to 10 days Medication Information: The exam and treatment you received today in the [facility] were for an urgent problem and are not intended as complete care. It is important for you to follow up with a doctor, nurse practitioner, or physician?s trust administrative assistant for ongoing care. If your symptoms become worse or you do not improve as expected and you are unable to reach your usual health care provider, you should return to the Emergency Department, we are available 24 hours a day. For those patients who have received Radiology results, the interpretation of your X-ray as given to you by our Urgent Care physician is only a preliminary report. The Radiologist will review your films and if there is a change in the diagnosis you will be notified by phone. Please make sure you have provided a working phone number so we can reach you if necessary. In the event that you had a lab culture while you were a patient in the Urgent Care, you will be notified by phone if there is a need to change your antibiotic. Please make sure you have provided a working phone number so we can reach you if necessary. [facility] has provided you with a complete list of medications post discharge. Please inform your diamond powder technician/provider of your visit and for further instruction on these medications. Any specific questions regarding your chronic medications and dosages should be discussed with your primary care physician(s) and/or pharmacist. Additional medications on your home medication list not specifically addressed. Please contact the ordering physician if you have questions about these medications. baclofen (baclofen 10 mg oral tablet) 1 tab(s) Oral At bedtime. Refills: 2. cetirizine (ZyrTEC 10 mg oral tablet) 1 tab(s) Oral every day. cholecalciferol (D3-50 (50,000 intl units) oral capsule) TAKE 1 CAPSULE BY MOUTH ONCE A WEEK. diclofenac (diclofenac sodium 50 mg oral delayed release tablet) 1 tab(s) Oral 2 times a day. Refills: 2. escitalopram (escitalopram 10 mg oral tablet) 1 tab(s) Oral every day. melatonin (melatonin 3 mg oral tablet) 1 tab(s) Oral once a day (at bedtime) as needed for insomnia. pregabalin (Lyrica 50 mg oral capsule) 1 cap(s) Oral once a day (in the evening). Refills: 3. Visit Information Allergies: Substance Reaction Symptoms Type Comments No known allergies Drug Vital Signs: Vitals and Measurements this Visit (last charted value for your 07/16/2022 visit) Vital Signs This Visit Temperature Temporal: 36.8 DegC Peripheral Pulse Rate: 72 bpm Respiratory Rate: 16 br/min Systolic Blood Pressure: 122 mmHg Diastolic Blood Pressure: 60 mmHg Blood Pressure Method: Manual Measurements This Visit Height/Length Measured: 160 cm Weight Measured: 181.44 kg Body Mass Index: 70.88 kg/m2 BSA Measured: 2.84 m2 Problems List: Problem Onset Comments Depression Lower back pain Lumbar radiculitis Obesity Patient Education Hypertension, Adult Your blood pressure was slightly elevated today. Hypertension is another name for high blood pressure. High blood pressure forces your heart to work harder to pump blood. This can cause problems over time. There are two numbers in a blood pressure reading. There is a top number (systolic) over a bottom number (diastolic). It is best to have a blood pressure that is below 120/80. Healthy choices can help lower your blood pressure, or you may need medicine to help lower it. What are the causes? The cause of this condition is not known. Some conditions may be related to high blood pressure. What increases the risk? ? Smoking. ? Having type 2 diabetes mellitus (more content not included)... [facility] Progress Note-Physicianon Progress Note-Physician DATE OF VISIT: CHIEF COMPLAINT: Low back pain. HISTORY OF PRESENT ILLNESS: This is a very pleasant 37-year-old female who is status post lumbar epidural steroid injection. The patient is doing very well. The patient reports having improvement in also her right foot pain. Twisting, pushing, and walking aggravate the patient's pain. The patient currently takes baclofen 10 mg hs, citalopram 10 mg, diclofenac 50 mg, melatonin 3 mg q hs, Lyrica 50 mg bid and a refill will be done on this. The patient's past medical history, surgical history and review of systems are noted on the chart along with a medication list, allergies and radiological images. PHYSICAL EXAMINATION: This is a pleasant cooperative female who does not appear to be in any acute distress. VITAL SIGNS: Stable at 155/87 with a heart rate of 72. At a height of 160 cm, the patient weighs 186 kg. The patient's SEAN has been noted in the past. The patient reports pain as a 5/10. The patient also had a complaint with regards to having intermittent urinary urgency and incontinence. We have instructed her to discuss this with her primary. HEAD: Atraumatic, normocephalic. NECK: Bullous. HEART: Negative orthopnea. LUNGS: Negative dyspnea. ABDOMEN: Protuberant and distended with a large pannus. BACK: No overt tenderness is noted. EXTREMITIES: No pedal edema. The patient does wear an elastic brace on her right leg. NEUROLOGICALLY: Noncontributory. PSYCHIATRICALLY: Affect is appropriate. IMPRESSION: 1. Morbid obesity. 2. Chronic low back pain. PLAN: 1. Education was done with regards to the patient continuing to increase her activity level and also the possibility of adding medication such as ozempic for weight reduction. 2. The patient will be decreasing the Lyrica to 50 mg q pm for one month and then off. 3. The patient is to return to the clinic on a prn basis. 4. Aquatic was offered to the patient. The patient due to other commitments would like to hold on this for the time being. Ulices Longoria M.D. JOB #: [id number] [Electronically Signed on: 07/15/2022 14:17 EDT] Ulices Longoria MD [Verified on: 07/15/2022 14:17 EDT] Ulices Longoria MD [Transcribed on: 07/15/2022 13:04 EDT] [facility] Coding Summaryon 07-04-2022 Coding Summary HTMLBase 64 HkxibshpADn3gRc+PGhlYWQ+PE1 KVGOyS99ivZItgS5VE9jXCY5VKO FCJYTDYM6UTP7qiWR2AZhfK2Oes iAv UqzkfLCgIX18YRf3KQP0tTgcJSg emC8siCZwG1z3WjJmPI26aX83HH pcRROmTlT7MuPgpkymaOHw I1eyWgVnkZYaNlx+PHRhYmxlIHd mKHIeKEkdKUFwSxKjaPerNE4rCr 9yZGVyLWNvbGxhcHNlOiBj g3ckXMWeEZevCH0zlFrsX8ZgqHJ 8AGZpc7z0Go46jWB+PRImQPS9oJ naAFchd895YpRis1jhYPG9 fUVzHWvyFIO2K43xg6F7WVPiPKY iRHZ5aQN1aS7woAosknxrN6YugA KyDcP7OLP3yGFbpL0waOyi knbqbU3iYjf+I31VNN1MTZJUBJ1 QKoc2F3ZrKjfvaYL+JU23AYEbTW 37iSGgnLQvj8eiyAv4VjOc ZNHrMPW6nXiqJJhaa0FwOSCiI20 niWOaa3U5LFEboUthoYRpMmYqbI V8vV8bNAbiujlna6uvranw Llxdu9dzsi08pJ35I14xXStaXQH aWEI9BODcXGKnkQlojq0onQ9hZk 8+PJymj1ejf0ivvXj4UlBw UBIntqFhsPncUIY9y7LoCu64H9X ozLsgn0BnEgb2ps38dUOgc2J5pZ W8ONwtPHQndX4eXUzqZjP2 QAInMdJbfC46rBJwGKynRr0rrFo ofTyaVD6bLTTuskbeKWEehF2dFM BpdJSxxQdgTG9jCTIjmefu x167SkLpCKX8EQNwgKUwV1MruT5 iAkQiKDCuHNFsM0RuvNBmJWtnH4 75WSulZtY4TQYqkqHwD0Kw ZMCkfHzaFtO7h6K8Uf6Ig1Uvxie tMHL0LNzsWLQ0HjO0RyNwQrH2K2 OiMrg6VSRkbAcbIR2kO6De QPJdziecoqnzmBV4NUFyNMFtfO4 6lUBvXDtnVs7fx4E6c786DMGwDH LryR89Hj2haKymVEZlhPWY oA4svuouv5dxuwmuUbGbKOMiNJm 5WFt7OEPgoGfmOcNhRJA5VkC3SS D6yIWgwG1nlTtfgxutuD4k Oyc+X20ewU7eZIK9TXN6adjwHRK imgPpSQ51RV92N1XrLzndvMLziC U+KZOckyZivGorCK4yXmSm b3xmy2EeBEkvO3IeXWRhCDztRcw 1QZLrFNO7pTQ6bQ2ySRLxCYkcr0 U8qSD1C4FdxrJkbu1dl1zp SQWzDSbmC29cpYBbz2Q0RSPhbEX 2ARNoqTqdSsHtwO80Ulo+PGNvbG eox7CxGhpgo7acs6ixxJg9 NpWpEHPkmpSxyLkqCZP6a2NsVf3 5D08jUFifDMClJMLxYZZuHIAysN wvou3beG0fLn8+PGNvbCB3 vWG7nD2qPYPqFpF1BMtgM089ZzG pwYBcFtpza6vfh4nowMq2ZhEsNO PffhEfpQnzPEZ1z9RaCw35 F28tNZqrUJNzABPfOJGoHHZldWd tjj0toO0tWb4+CH8he4mauh50wM 48dHI+MJOkJZB2nHdjWGkc JRBfwO7uDYatZrW6NIUkHbSxvI1 3eSUkRAttEe6itAibcWnwMG6kIX Fegclcw313HjFgc3gfZZNr xTIrFHygEFX4Y36gg6F6CHCoSBD tJXO7fEO3kU6dnJyzvxeupRUsnV gkxqZeiIyvWBekBChaP428 IHRvcDsnPlBhdGllbnQgTmFtZTo 3L5NcNti5KOYyeCguSE3xsJGjJV faYr3yyZcamFgpAS6hPYUe tpqho987CsZti1uqEQHpsEPdXSf vXQH8B69af7A4MDKnVTMqIDJ4cK D0uZ7caKkxcgnnuYGpkTsf jrFvqSkyANesXDfkP219NXAvsSl sLbUmhtWnCJHzkXY2SJ32YX49uP Ewm5J6aUR4U8AnATVnlryu yjjziCB2GUYgAVZqcD31Zc1tmWz nVz0pTPEiBKK4MQAyhEIqW1UbnH 4kVwCvSYUuJLDsA1YasEWs GYdmX570UUnaWwI1EQQljwYqV3W eOESbsYskFiA4b0G8Mh0LQ0B9OW 26JS59iTBsg3J2xSO1Y8Rb CQCemexwhqwllNO4NPYvEIAvuX6 9Dk8onUwoUp7nBOPvVBW9CQOlfA AvX1TakC1dKzLsMWKiNTHj Z5TakDSoJWzhH090IPwqRyA7HNM mdxOcC5AxRIYqnVbuHiP9h0X3Is 5IMTq6QO70OQ55uREyx9C5 kKB7W2EnBVSgtarcafloeSV6UZO kPYMcrU05Dy2oaSwdHo5jQXIlKI Q1WSHbeEOzL2BtmK0iKhPz JGVsORXjW3SmgIUpXEvhG681EOc oUnI8DBSwpxIdJ1HrTVIteVahLp Q7q7W7Te9YQYUaSJ37MPO9 sFD8NC82TP66H6IwYbntgWIzqWS +PHRhYmxlIHdpZHRoPScxMDAlJy XiyPhrLU5nTq6vEHIfBLHy xDaifEBhZdDrc2azRVOsYKdcKJ7 wlIuzJ9ZfqGU7LHRdl2o7Ns54R6 6uI4LpiSG+FHBvgPD8pPI8 pT3gYzDfXxX4SDreQ151QdIjuPX sEglwr0nol4iuySf8VjN7MZCvcl IjxKtrWIE7h4HtXm86A60x IHdpZHRoPSIxNSUiIHZhbGlnbj0 taP7zBn3+JKFguJU6kVQ5oW1aWt QrHhZ9NYydC357DgAnlOWl Xxxdu1ice5skaUj8KbYrPEYxcdT cqXhaSNS6h2NoPd31Z7HqnVmik3 KnPyv8lx26aOYja2X2mCD6 W5DoZPNuxkfdcOCgyAftUQ0mWQI yfzzgJKJusN7dQEYiP4c9PzDaHg Q2OVffF3AfccD3VYDohISo VBcrYFY6V97pm9G5YUGiTPVrFZV 6iLA6eI2urAypocjlcOHesPygxi DiiDriJKxiZCnmP759JZPs qKmhBTTwjG2rKIWnjJOxyFibPB5 pYEOgkqjlZd1PSUyPAeHiTFLSQW ZOMVOQMECGXR8FMM24XJ64 yZJrp8G0yMD7T8SpLSYweacwvby giLB0HDJfCQCdmX63fMEsWLfqWu 7yd8L7h206BEQbQXFrzK03 Ag3yjOmcGJIauRXYqO9kwpsjy1p jhfknQaViSCSvDJr1VFz5YYXdqO ekUaLoZBU3AmE2UVF7xLAh rZ2dgHsjczzttV0gQqq+MDEvMjc qMQi5GfyacWQ+MVUeLRC4gWrqMB hzAUHtxX9kTDHpD9s5SkNt SdO7FRukZ0WhPRAbqenyRz74qI0 xZrJhHpR0GUkuU6GvmiW0RPKgzB NwFIqwGFF6S75qg1E4FJGs MRKqJLO5zBX7jY8jaEhfbbrvtTX vpQxxkaVjbSlxKLacGJgfV381VQ ZyxBpjRjO4SJeuQNAaYW02 SV53lFWpq6T6uNR0S6UrUTOrzkr wxzotxFN9WJPvAXKngY30xQXaBK fmZn4td9U4k228BLUjUCSg qO59Ek9zdVtjMRUxfTGKbV8cqry dg8hufixkLdYbEQTwXXu0AQq6SA UsmBsvZxZmDRL7YgL5PSQ9 wJWyoN2jdMtsdtkurK3qYhe+RkV ZFAyEWJ64ZM90kVVyu6H2oGU8V9 OwCFOzkehfihaoiZI4UPRi YRRzyD93gDVrNBhrXa6pp2Z6b78 0ZCKtJTSjaU87Nx4xbKhqBCRrdN CUnO4uonokg4tqeuymLnIc LPBsVIe7ZNw3VXAbcFleVfBaOGZ 1BsH9LCL4kGWknO0ftZjoqtwkiS 9wOyc+UyQhzGMctV0vQT92 lLAlcYkempG2N6YoSqgxrQF+PC9 0XPAjDE94hSAwnAEhf1eslBr4Je CgZBHiFWC8wOhgRTwre4Ay NUIzU05ssMFcs2M3UAGfwWcwgTW hRlBdqVF0uQ0cXJikqwpjd7exuo fpJdknr2nebz21aB74F48j IHdpZHRoPSIzMCUiIHZhbGlnbj0 mzV9eSb8+WCGbxTE4tMK2fI6kRl RrDkW7FUpvL677ZsZowTCq Wxwgw7gsz9utzAq9GmEmWFRdlfY xgSrrQOE9y7QpIx78V44hCHqzBH KkAWJaWWXyQSRyxChfih5l rS0tMy6+TK0ot9kiil09wQ97lNY +HOMiHLG5bAiwNGcjYQChjP0sNZ nsKqO8BTUwYdIazI68aJEh KCuiBs7bxBwrqYghYS3cTXOmxkn vl037QgYrj6cgWDIvuQNmCAzkZC S9R83lv5L4MJAaTKXjXQN9 cLT8iO4mtCthhtvgeBCezKsskgH pwTrpGCgpBXthI297HDBulYqtDb HvgSVdI7soglANRC8bBkzd dGQ+EDSnJUC5dEryQAkbUQAceB3 kYQJeP1t8BdQrDyT6IQfjK9Sxxd M6RQSgiAXrYAMjqSXCmJ3o xxrcl2dnbsbaHkJgTKSyKHi4RNs 3FZQwsMbhNwDjBGO9SrG0SIU2bZ DsbP0bnZfucatkiC8oKoq+ RklOOjwvdGQ+MUYhXFF8lWllUDt gTNBwcV0hHFZsM9i3BiYoKoU0KT rmH4AtmrI9QHGzhDCkAVQd dABMrC9iulpeb8bfditdSoLbPXG wKRt4XVo8XGSxbNtdVrMgHIJ9Ph M9INF9eVZgqZ5lcGffjfhu kY8nJgv+TVJOOjwvdGQ+PHRkIHN 7zRaqUUpcYTNwoX3kXYNkU7j2Pr QeYrD5KVxpF3YtyaF0JVXf dCZpVYHpeKFYtH7mdkknw0uvsby qCuEeJQHpGNm9LKz7AOOhuJycIp UuBLA9GaX4LXM2aNGuzL6x aIymcjisvY9mWhk+YBV1NJW0BS1 3WB30U7NhTqgcrMYzlRY+PHRhYm xlIHdpZHRoPScxMDAlJyBz dHl (more content not included)... [facility] Provider [place] 06-21-2022 Provider Orders [id number] [facility] Progress Note - Nurseon Progress Note - Nurse Pt called to reque st refills for Diclofenac, Baclofen and Lyrica. OAARS reviewed and appropriate. Pt is compliant with visits. Request sent to Dr Longoria for approval. [Electronically Signed on: 06/14/2022 08:53 EDT] Deena Silva RN [Verified on: 06/14/2022 08:53 EDT] Deena Silva RN [facility] Provider [place] 05-27-2022 Provider Orders [id number] [facility] Progress Note - Nurseon 05-08 Progress Note - Nurse Pt called for refi ll on Lyrica into [facility] and sharlene pt compliant with OV, sent to Sara Wilcox CNP for approval [Electronically Signed on: 05/17/2022 11:43 EST] Josefa Schuster LPN [Verified on: 05/17/2022 11:43 EST] Josefa Schuster LPN [facility] Coding Summaryon 05-16-2022 Coding Summary HTMLBase 64 KgndmhyyNIj3oZo+PGhlYWQ+PE1 GVADoB50auGFhuH9XY2sYEY0BNR OCFUQXVC2UKL8pnXH6BSrxP3Otq iAv OqucxJLuOK75EJm3JXV1bKptDTy abB6mzNNmB5o9KnDxWB26kH96WK hcDKVfIkJ3FnHllizrzWUq C9hxWyRryWJyTku+PHRhYmxlIHd uDEWoCNxgZGBuDaHzvGkyUG5hBs 9yZGVyLWNvbGxhcHNlOiBj v0vsSSXxZNcdXL8mcDquR9LjkSC 1ODKtw5h9Ho11uWJ+APGtIMD1kF zuFPxba143PhPmo8uuLLO6 aIBlQXuaRZM2H47xb8Y0CDNbRAY bFCU6eIN1pN1cmYuohbttB6AaxY TfRiE0BQM5zRAhkI3xoQvm fhfsdZ2eZya+K35VGJ2GGWRMSK8 AXde8F3TmRoajaWC+ZT33TSGzHB 23kKZvsPObm8llfSk9EbJe BIHjFLN2eSjxDXzei2OpJUYxE49 bxQSlu7J4PKMsjUnjtUVbMsBrkW R9fO1yYUmezwnfw5ejlrog Kcyrr6fnmm33wA33B19cIBlgXBJ wNRY2YSWbVVXjtGmvlj1jeE9cXg 8+OBiqo7cnk7kxlMd5DzJa LEGtstZgoTzaFEZ8o0OcEn76A3H mcXwjj6HeLww1ra55aUGet2V0sZ M4WKgbDFVuaT3dDGnqYoV8 SSGgWrBtuY40yWHhXXlgTz1zaCx tkRjzFJ0vHWWmafanUWAdiB6cVT RsdYQbgObuKO0pVURcqqst x434KsGlRQS0KCIixMYvJ7GcnF1 rPkOlBJLxCGLoR0AebCMgOGuxB8 56YXpiGtG8DWLqvcImL3Jy VPKvnPbuPlV6o6L2Qt7Bh1Jldnj rNOL5NPpxTIYsNzY0JoIvLqU2N0 UcWrv9YCIbmLzaUF9cP7Mv PRQyzhdhzjcdhBU4CVUtUMLmmB6 8wTXnIPtqYx2yk0Q5c787RXFwHP JgoO24Zb3tmZomSXUmkZYW oL3jvoybh5foujmcIpAhCCPwTHs 8GDw8DMVlsEotGnEyTBI8UrS1LJ X6fMPbdO9jyLefqswocL5g Oyc+W56gzD2xFTF0VMY8uxavPTX swpFbHT85KM61R2VcDvjblCMsoQ U+XUWmswKbcYbgTI6lGvSs z0dha7LzBVacF9NsBJKlMTxgEtw 0XUDtIFI8xLE2yN6fAMUaMKdmi2 C9lRD6K0PnmiFwsm9vx9lz JBNzDRqhV18ffVNly1X1RSKmmXJ 2NJThzZrrGaRmiJ17Ugh+PGNvbG obb4TvUehro8jti8vipNc5 RqZpBRDnfxRtjBbrXUY4z5NkEc4 4G92rYPpgQXEsGKXyKRMlIMZvuB joof7uwX4fWz9+PGNvbCB3 bSZ9bZ7tJPIkVdP1ZNawN281NaN tyNUbHxpfo2oan1vucYu2FqIhDX NjdeSsjVnkWDJ8y2HqRo61 B22oSMiyZDFxMPVuXBNaCAUlfCh qun8gsM7hDa3+XU4sh0xjha69xY 48dHI+LOSsJPT2hGjgEPfo FIPtxA6cYOnbHxC3GXZuSdDevK7 3sURgPFlcOc5ywBvqlMkrIP9fQX Bnlupvs221XqHab4deVNIi pLOtKWjhZKN5X95hg3A2KHIbEJM vFGK5wSW9oB6jnHwicmpfcLBgsE enxcXasZwaFLuoTYkeZ948 IHRvcDsnPlBhdGllbnQgTmFtZTo 2O6TrVdq3RBTraGdlDL6khUAcVE kfGf0kgBauxKjlMT6wGYPw zmkdk135SpMjc2hmCUVfyKKgZBw dJNP9Z88rx1W7WWHdEMUxFUG9bO O8iK4zzEvfoonlsTSfvLpc faDuoOwqNLfsLGzeP368PVPpmCv uQoBlxrNuFBCipYK1KW81YP11mF Owj3W8fYT5P0FeBTNvhbuj wvtfgWU5KCJfSFTcjT00Pk2tsSa wZz3nHTChNRC4GVJfbAToL9UncX 9qBrIgRITvHPNrK4OddMTv KDzoS853TRexZnQ1ITKhyjOqX5W oRIQgmLrnFwS1z0N4Mn3JE4N6QX 80SL72iBEan1M8wOK4U1Xh FZXqqcajxxcwgLI6FCRyNYCpoV1 2Qc2fmCueTx0hAWRqBQT0VBIdlN SxL1ZhsD4jOhMeTHRzLTCk A2LkvMGaPCikG715GCqwBhK5ROW zseKpX6MwENJzzWlpJvB1h8W0Da 7WGLg3AI50YH11fTXnq6B5 cGI3K3ZaGMNbsbrcsyaqeQY5EPC mDQZxcJ30Jy0xeNffFs5eUVXcZN J3IVZtvSNvD6HwoB4wNzIl TMMjPRBzF3YwpSNiEWmhQ387MCq hNvS2JBWnstCzW9KzQAPbvKptFt O0m3J8Ir0FHQElAN24LIU2 dAQ2HR28BR60O5HpOvexsFCjdUB +PHRhYmxlIHdpZHRoPScxMDAlJy RxwVgiCI3bLx7cWHAaQYRo lQqxpGIxGqEvm8ieSMXaIKljGO5 xbSrtL7YirAZ7HDKhd1l9Kh91Y0 3qR6TzpDZ+JESjjEQ2hST5 kX1mQiRgFeZ0GCmpN088IqGtzWS xLmkhd9rnm8phcDt2DfB2OOHirp AavSoeJSY0l9IsCj00C17m IHdpZHRoPSIxNSUiIHZhbGlnbj0 rhG5ePq6+PQSstSH3aCN8oV6gFe BqBkY5EQboH897QxLatOQo Utqdt6yjf5cfaLy1PgVzHLHpglL xrIjwBPZ6s2WrAp65V9WaiIjzf2 LtBpf7ig83lNVzk3Q9aZC3 T8ZgDIGsfxqmzVUtpWrwAM1gOKU yashzIREpgM8kKUWdM4t5FnYwRa O5LCrnN0DsexP2HUPmeXXk AYwpTSJ6P69yc7R1MBOjKKFjQCE 3cPT5qF6cdRdxkqmyhRWbgHztkl QoeOlgQNjyGMdqY635ZOKo vExgMXGsvK4vBPIwmIOccJpuVX2 kNAGnyzwwLg4DEAnZPlAcZFAWNC QCEBOSUNBNJE9YXB00JK29 lBHqy0R6wPR2F4ZdOTCmzficeiy naRF0MCEqHOGbfT78pXKiRVznXg 2ha5N0c928LYRpPCTniM85 Ia8gyWwlONBnhCYPkR2eplmvv9w jwapcDbPvLHMjHJm3AOm2HCCklN xgEeLeLZA4OcO0NDA4gYXa qS6eqQjvuwjksL8mVvd+MDEvMjc gZUe7ZlqvuAU+ABZlIAN2eMqxND xfANUltA5vIPXlK8k1FvKw TsP8BWoaD0ElETXkimqnGg46xY8 zEcWcHgA2DDpgY9SsdmH3DBAtzT VvQNscOCC2J61jx3K0FCKb VMUhAXL0qDL3iA6rkCvgivtwwLY ppRidstVsgQjtHVyqEEzdK490DA UjyWrtPnM9TDpnOZAwSI34 BZ06pWLtt1P5zBB5E2SaBBUmxyo ghnqduZY7KSVwBVHvpO79oIIsJU efRx4ho3A7d631JRXjPSBa fW06Pp0akMzgIYFckANJrB2sycl sp0qnxjhcSoIpVKMeXSm0BQu7WG SgjDruMtAfDEX2RbG4MCP5 iLXnbS8nbTuflhbkhU2fBvc+RkV NHBnMGP57AO84cEDam8V2fVJ3G5 UiXHVpgdoanxlolRE8SAEd HNMbnF54eCHaHGahHx7ya6Z7w14 4KFEpFEBhiE61Pm2qjPbwYWRyhU KYsF3huwljs8ffgftuBgVf KSAsWZv1XVg3ZPShrBncNiXnQBU 6FnN2WTB1fZFmsV4abVfoxqnjlF 9wOyc+UbQeeLKiuV6aIO59 eVAydLnvvjK9G6AeNyyuiVS+PC9 5VDLuKD86bAYufRHdv4nkiDq0Nb RrBEMnDXN3yWdtWSvar1Xj WPDbP21ooSXtu2M1EMNxwNigyQB qOaTguQW9iP6gNAyhdbjid6ohvx zaJuwki1boeb20tU51D39s IHdpZHRoPSIzMCUiIHZhbGlnbj0 bvF3pCa4+UKDcbOD4sOQ7hI6mUk EvFcM2KSvhJ524TmJrwFXm Czydw9ngz0lidRc3YhZvABVeraI cdMzxVPL8g1FoYt39L63dCKizUN GqXXNaXFJnZKUogSlskx0l vX5iMk5+IG5ln4heix46zO01vTK +HCAnJYV0kVaxHVkkYDJgsD3lJN qlZiO3NFPrTnTrdU73cSHj IIolUt6pwQfjpQosYI5iLFSlpmw lp951UtUlz1knBTXksMLuMPupAG R3G71tj5W9QFIvMZJvDQW8 vVP4rI4caKyuotrloEJivRmqpmP ftWpwVMaaDCtqW780WBZufHmvIk AikVMwU8ezsxLZHH1jWklu dGQ+UWDxSMG9pWehOZunLSZqdJ3 fPIIxD9m0NpKvKeB9XOgsX1Hfmz E8HXAnoHCmLMPniNSKpZ9g mmhkb2npbhjzBhEyZDVuENy6ATt 9VHUqpJwwGbEbGGA1JwZ9YXF5iQ UtjW5nbNweuhzoxC8cRtd+ RklOOjwvdGQ+ZLXtOIM4eDyrPZe mIOYiwG0nAFKyZ6w5DxFiAqS9ET dpA8CoxuQ6PUGskQWeKMAm iCLEcW4agdher8ttbewiKeRvHXW jKRl9IJh9MSMssOigZyQjEDJ7Jx O5UPZ9qQRzbN6uzXpfrkgn bJ7bHfn+TVJOOjwvdGQ+PHRkIHN 8pGhyJWlpATOmqY6rEPGyX6p2Zb AePpY1YUupF1GhtmC4YJXy kUOzYHSfmTLKoI5bnycia7edrlk oRfTuSLGgHIk8MLx9XCUqmMprFs NkRPH5DyO6SUL6aXEmkO1k tXojphnxqQ3wGzn+UDI0ASH3RL2 6CR30V4BnSakbvSRehIZ+PHRhYm xlIHdpZHRoPScxMDAlJyBz dHl (more content not included)... [facility] Lab - Reference Lab Resultso n 05-13-2022 Lab - Reference Lab Results [id number]#1.00OTGTIFF [facility] Progress Note - Provideron 0 04-25-2022 Progress Note - Provider [id number]#1.00OTGTIFF [facility] Provider Orderson 04-25-2022 Provider Orders [id number]#1.00OTGTIFF [facility] Coding Summaryon 04-23-2022 Coding Summary HTMLBase 64 PnsilhqvLWx9xDy+PGhlYWQ+PE1 GIQZrQ97ohTIzgY2PC3cMGD6JZY TPKGAGCM6JQJ2bhNN3BOhxC1Qwr iAv TbhpyFTuIX72HWn1SHS1lFipKIb gkO3hpFFaX5c0YlUiZC78lJ85BQ vaWELkHoC4GjJcpilveYGo V4flBrOrcSTdZhv+PHRhYmxlIHd vIXJlQPgaSUMiFsMfmDqdLI0mBo 9yZGVyLWNvbGxhcHNlOiBj c9dwZUWdQHxcVL5nlVvnK7WkcQB 7RVGhd8i3Ae72tBV+DKXvGPT9eF vxHAmkf610VzJxu1hcHIS0 jEYxKSamKND1A45gw7V4ITCbLZD eSPO0zZB1pQ7gfXhlsahgE9ZwvI HaGeP5FIB4aDByaE4iuFsm yrekrF7yVpr+J63REM1CNAANBK1 WDbs2O2SgScywiJP+ET86ILDySH 79lFArfIWyv8tacDp8JxOu BIGmSDH3qVvyEPymb4KuBYTmR10 pcRMce5L6ZAPvoXxfbNAqDyVhpX U4jB3aPXlhcqzaj7fozzwx Wsztg4rpqa36pC99Y54oBDbxGWT mUQH2QFHlILMaqAuzoq9mqZ6lLy 8+XNydd6jch8otzKy1IoZu AWVtxkKxrRzvZTC5l0LcQi69V7H rcAajc8RyUuc5ri75sIWhx9P2uH K0PRnoHOCgwH0uKClzViK4 WWHuGkRnlM11sVIzNCquIt2xpNt obXuuUT8dXVMpgrzeDWHtpG1qWM IxaNVtbGchST7eVIOwyaoy p132FhMzOGG1SEIhlRVxS0ZseV9 jGuZeWZTlWALqX3ShaSNwSSchB0 33VFglKnX4UTBlwxMrY7Mi OBHtiDhwNlW8y9C6Tv2Dx2Ldtce rLXF7IPojJRAmEbM8EmVsBnQ6N4 ObEkt8UGQkmAyjFY0eO6Rv YKHopfrrbgvdgUA6WHHvKGDglF6 0aSHmEOtbBr6vh3V5s413LTAeQG NkvA29Qc2ndCeeOVCliECC zG3vdrdur2voaoobAiNbHZMtFXx 7XIr7KOLxwTllTzUhRMB9VlB9GH N4zYRbwM0utHlcbdcypT3b Oyc+K92thA0xFUE4DTW7rktmKOE gvhQzNG08GG02D4IlDzvetLNguL U+UCUvznAbqKkoJN3xAgIa l9ixq1OsFHugO0FjKMKzCOyuJvw 7FSTvEWS2iYX6aP5sOAWdHEeme6 K5jFH3R9RrgdTjeo4ef2fw RTLlQBagX17piYBmc7N7VFBfnBJ 9ZADwuErkAfIwxJ20Hgr+PGNvbG adb4RbOrrxa6qsf7yklJu0 PaSbDQQzinXzvRqrLZG1g1LuZn2 6T03tYUuoOYDeAAZcDJEbYEDtmE rgmo5vxD0lFm9+PGNvbCB3 iPT2dK5sDLDfZnY3QYhmV090GaT ntRGwEpjmf6qbt6xkmDb4JuCiDQ SnwzNxgNfnRYT5u3UeDd66 E47zTZqdKKZhNCMsTPIdCXTqdKb dcd1vnM2rAo6+SQ2so2jmqj54wA 48dHI+KXEbXGI4iOtvOIzd SZJdsF3dOYoaVzT9BRXwCrAifU5 0mBVyYPdrIk4wgYxsaRibXE9aJR Xnsnyhe075QgWmm2hjABCa zUVuLQvkTPU4V83xw8B0PJLkRCD aHHA3mVU9bT2mvHidcnaqfLUvnL sponZbeJqtZFafSAgeS210 IHRvcDsnPlBhdGllbnQgTmFtZTo 7U4CaVrm1ADPatZmgIN7itRYhON rjTe0bmEgurUngVK6kYPJw wmugj478ElUgr2ojRZIwcILdJDv lGLS0J45ca6Y4NHBtNPTlPHR7dV M2aS1ezRdwgsutcDVyxCsz zkFqcHzkEWfxKEblT745RTEkcVc sWfMehpSbFYJsfAS2DB16II41lL Wsh7I6gRQ2Y6XfUQZjqwpp hztfsAC0GCZcJCRihZ48Uz5mtLo oEz1iRDEsXJM8AKViwLBnL3VtaE 0nKiVhDVXkBERtN1IznOUd ECnjM578FNwgShB5DSDakvZpX2M dHPNhkGqaVqN9r5E4Qw4IO9D9EB 85BC60yWTdx0K9mUZ2O8Qw ZZAjuhnudaqawHQ7ARJcHZYdaC3 3Xn3eaZteQv2iLTDoXDO2SSPptC UjW6MymN5aJzSlAGFkWRPp N5PssBPqCRtoD397IHjaScE0QHX fvoEeH4WiKDHthIyxVzJ2x1X2Kp 0XITm7GH64NI73uPNcs5W1 mVY1S7EgGVXkqfqulfbbeTR3DNX dPDPhpR84Mw5giWlqCc8tVIYqHS I3AWLstILtY2GnzW8oNwDd UPAlUYKpR3WhoGJxJZrbG159LEl jUlD5GEQlhfBiB0TfVWIpeTclWi H9w4T8Xd3CNNVjJG67GQT1 dLX9UF26QG02A2CmDihzfBJdjEK +PHRhYmxlIHdpZHRoPScxMDAlJy BogXpzYY4jXu3oUFZzXDMf cSuujLAkIxJqz3biBOIcGCduBS4 oxTndD2DdzBV1XGUum3w6Dn68C5 0bR1YwmMF+VAUgcMK5xES2 yE5nOpUgPcI1ZSdeA117OwMvwAX tUcgca0mxy6pmpQv7VmH9WCUdpf VnyUajWKC6m5ZdFd90U56g IHdpZHRoPSIxNSUiIHZhbGlnbj0 dbG8vBs4+GILzjUL5fDR9sS9sXh UzHuC9KXmhG523QzTezRAv Sjrox4ofb6jhmXn6TtScMFTbhxV fcKtyABR5l5ZzQm64L7JpwLvbr3 EzSzy1ib63hBCnv4I7gLB4 Y8DiSPBvfozmcEGgrVttLM8tSCQ pnjgqIADtaZ9oLOMhX8u7MeWiYe V9WCtqJ5XgstZ2MCKqpGAu NTsqEUU8J33ap9H2TZGgPFIoWJC 5nYF4oX4dxPwcrdphbVHwlYpcof SchSgfUYhbPEslX765BQEd dMfyMZPvpB9uKJHiwQDvkAluRC0 jQOXqoyeuBg3KTGfXTuRiRFJGVK WCYBCLNPOHZP5WOD60GK68 zSBpo0E7iWO5O1KsVYWvrmpjnvb ifVC2PHFnQABeqN25aIWqYPzrEl 6bi0N7a797MJCgQQVsnI84 Bg1ttPwwYTYxnRHChF7twtudd9x qpgbuScYbPNNkVZp5YEa7NEAzjP wrLyWhDOE7SxS3JZA1gOEe nC7eiUvisqupnK6xNly+MDEvMjc zUXv7UizsfAU+GASaIJW7nThqOR xrPOXfiF3rHKPbG2r0MzRu SjC1HSgaH3HxRFCnqkzlKs68rM3 fQzUsQrE3NTfrR0JqgqW3XEOeuJ JnMBiaMXA4K10jy0H7VPDn UAEwFBR4hNX7qE7lxLdgntuhrUM csWxhoaSleGypEPnhTMwnM365UG GddPdtRlC5KKtoXDRdGR61 VP79aNNfy3F4jYE6E2NcCYFrgsm fuzuutUI6AOBrVPQhfH03yIKdVE nbVn8tw5V2e039ESKfJLTj nR45Ok3yjTbdXWGavNQEzO2bpmo sw2bxhlmoEwZaKJQsAUw4FHd9WE HmfNlcFlWvEBI5JrN1TUV5 gPJruK5jsBjvzrsjyB4wBwx+RkV IWObFGA38MI32dZKnb7E2eGI5R9 OoBQSdkcpfcqundUZ1QWOj WYDreY43xLNkHLpkKm9do2P6f15 8DLDnQACqzQ55Dd4ujRhfBCBhpF SDeO8cneveg4wpfageSfVs ZQHlZLr1WUv3JOEfwUblGdUnEYD 8LiQ4KKI6eFXvwW9huVdzwqmftG 9wOyc+O3D9E2LgTpfcnRZ+ QS42YEDlEH59sMNarKFwn7ooeEx 1JpDzOTTdTGP7aBksSZytl7MyBC YnA70xbBHwa9S3GJBxfCnd bQOoUnIbqNH4jE1yALlskmqbs3e uvvteDyufo4ziyk44dI25W21rYB dpZHRoPSIzMCUiIHZhbGln vs5tfS2tUa1+CPXgmIM8mAD0lI0 iJeSpQdF1ZXozR258ZyDajIEqRg txi1txw1uatPd9OzDrPFQo dbEzbUdsVBN1j0DnTy83U97wOVo lVWXaLWViMGPqYVXsbDxhuo8qvJ 9wIi8+WY1tt7odpa81xD39 dHI+YIKyRQP6uOlkNAirTOSuxK0 yPPsbHeF1GDEfIbCxoA12bKJuEX tfLa3znUiroZprFD9aUVVm ydiim400RqTzf2qgWTIfqBGaAZq zLMG8P50eq1P5CCJyFYAdZUN6iV O3iB5uhNldrhpojINlcPov saGmfRhyRAraSZzwW190AQRrlYq eStGzcSRzQ0jkluYURJ5tGpgpsT Q+CJZkAHJ9lCagCZshMRHv zX9wYYLxQ2j1BcQaYcN3TAffX9B qxlY0VPYfjDXnFEOyjRJKqA5gvk hyr8laylvqPsDiPVAuHHi4 ALm3SXWarInrJoPeBPC1HyA0SKF 2rGMzsF0pdVwmvbwzaT9gHkd+Rk lOOjwvdGQ+FVScLTH0cHjg CDnlNIAmaZ4dXOXpE7b5KlUyZlG 0GAscU6OgevO9GDVsbBQvZXAvhG TOdD7iytvec1dniemeUpWr QYDyCZb6QWk9OBRnfCytGvBzYCV 4SlJ8KNS4eORrlJ3edCfyzihemM 9wOyc+TVJOOjwvdGQ+PHRk ZHO3wXkvPDcbJOFlvZ8oDLRdK3j 9CcDfIsD1XWfzT6MgyiU9OTTiyN ZvBHYubGCFeG6hvgrmf1cr mtetUnIyANGiBRe5JZw2ECMbpIk bPyOmJNT2BpB1KLZ4eJKycT5nmA etdupcyH6eWct+FXU8QEQ1 AS30AN27H3RxMygdvUDyoOC+PHR hYmxlIHdpZHRoPScxMDAlJyBzdH tlAG3fTd5nDZBcZVMrmDhi cHN (more content not included)... Normal [facility] MRI LSPINE WO CONon 04-12-19 MRI LSPINE WO CON EXAMINATION: MRI LSP INE WO CON HISTORY: Lumbar radiculopathy ; lumbar pain radiating into right leg for 5 months; no known injury COMPARISON: XR L-spine 01/16/2022 TECHNIQUE: A variety of imaging planes and parameters were utilized for visualization of suspected pathology. FINDINGS: For the purposes of numbering, sagittal T2 image # 8 extends from the T11 vertebral body superiorly to the S3-4 level inferiorly. PARASPINAL AREA: Normal with no visible mass. BONES: No fracture, pars defect, or osseous lesion. CORD/CAUDA EQUINA: Normal caliber, contour, and signal intensity. DISC LEVELS: 12-L1: No significant disc/facet abnormality, spinal stenosis, or foraminal stenosis. L1-L2: No significant disc/facet abnormality, spinal stenosis, or foraminal stenosis. L2-L3: No significant disc/facet abnormality, spinal stenosis, or foraminal stenosis. L3-L4: Early degenerative disc disease is present without focal protrusion or neural impingement. L4-L5: Mild foramen narrowing bilaterally without significant central canal narrowing. No significant disc bulge or disc height reduction. Mild degenerative facet arthropathy, left greater than right. L5-S1: Mild bilateral foramen narrowing without significant central canal narrowing. No significant disc bulging or height reduction. Mild degenerative facet arthropathy bilaterally. IMPRESSION: 1. Mild bilateral foramen narrowing at L4-5 and slightly greater at L5-S1 predominantly due to degenerative facet arthropathy. L5-S1 findings may contribute to patient's symptoms. Electronically authenticated by: MALATHI LOUIS Date: 2022-04-12 11:23 Normal [facility] POINT OF CARE GLUCOSEon 08-2 Glucose [Mass/Vol] 124 mg/dL Critically high 74-106 [facility] Comment on above: Performed By: #### P OCGLUC #### [facility] [address], [place] [address] Dr. Johann Spring PREG HCG QUALon 11-05-2021 , QUAL Negative Normal NEGATIVE [facility] Comment on above: Performed By: #### P REG #### [facility] [address], [place] [address] Dr. Johann Spring XR FOOT RT 2Von 11-05-2021 XR FOOT RT 2V EXAM: XR FOOT RT 2V HISTORY: Pain COMPARISON: 07/24/2020 TECHNIQUE: 3 fluoroscopic images FINDINGS: 3 fluoroscopic images demonstrate interval removal of fixation plate and screws across the first metatarsal-phalangeal joint. No acute fracture or dislocation. IMPRESSION: Interval removal of first metatarsal-phalangeal joint fusion hardware Electronically authenticated by: WEN MCCABE Date: 2021-11-05 13:58 Normal [facility] XR CHEST 2 Von 10-27-2021 XR CHEST 2 V EXAMINATION: XR CHES T 2 V HISTORY: Dyspnea COMPARISON: No relevant comparison available. FINDINGS: LUNGS: Slight wall thickening of a right suprahilar bronchus which was also seen on the prior study and may be chronic. No peripheral infiltrates or mass. VASCULATURE: No increased pulmonary vasculature. PLEURA: No pneumothorax, effusion, or pleural thickening. CARDIAC: No cardiomegaly or cardiac silhouette abnormality. MEDIASTINUM: No visible mass or adenopathy. BONES: No fracture or visible bone lesion. OTHER: Negative. IMPRESSION: 1. No acute cardiopulmonary process. Stable chest. Electronically authenticated by: MALATHI LOUIS Date: 2021-10-27 07:17 Normal [facility] Covid-19 PCR (CVDTBH)on SARS-CoV-2 (COVID-19) RNA SHEFALI+probe Ql (Unsp spec) Detected Critically abnormal NOT DETECTED [facility] Comment on above: Result Comment: This test is not yet approved or cleared by the [place] FDA. When there are no FDA-approved or cleared tests available, and other criteria are met, FDA can make tests available under an emergency access mechanism called an Emergency Use Authorization (EUA). The EUA for this test is supported by the Spectroscopist of Health and Human Service's declaration that circumstances exist to justify the emergency use of in vitro diagnostics for the detection and/or diagnosis of the virus that causes COVID-19. This EUA will remain in effect for the duration of the COVID-19 declaration justifying emergency of IVDs, unless it is terminated or revoked by the FDA (after which the test may no longer be used). Performed By: #### C VDTBH #### [facility] [address] [place] [address] Dr. Johann Spring PREG HCG QUALon 10-08-2021 , QUAL Negative Normal NEGATIVE [facility] Comment on above: Performed By: #### P REG #### [facility] [address] [place] [address] Dr. Johann Spring CBC AUTO DIFFon 10-01-2021 BASO # 0.0 103/ul Normal 0.0-0.1 [facility] Comment on above: Performed By: #### C BC #### [facility] [address] [place] [address] Dr. Johann Spring Basophils/100 WBC (Bld) 0.3 % Normal 0.2-2.0 [facility] Comment on above: Performed By: #### C BC #### [facility] [address] [place] [address] Dr. Johann pSring EO # 0.1 103/ul Normal 0.0-0.7 [facility] Comment on above: Performed By: #### C BC #### [facility] [address] [place] [address] Dr. Johann Spring Eosinophils/100 WBC (Bld) 1.7 % Normal 0.9-7.0 [facility] Comment on above: Performed By: #### C BC #### [facility] [address] [place] [address] Dr. Johann Spring Erythrocyte distribution width (RBC) [Ratio] 13.3 % Normal 11.0-15.0 [facility] Comment on above: Performed By: #### C BC #### [facility] [address] [place] [address] Dr. Johann Spring Hematocrit (Bld) [Volume fraction] 38.0 % Normal 36.0-48.0 [facility] Comment on above: Performed By: #### C BC #### [facility] [address] [place] [address] Dr. Johann Spring Hemoglobin (Bld) [Mass/Vol] 12.4 g/dL Normal 12.0-16.0 [facility] Comment on above: Performed By: #### C BC #### [facility] [address] [place] [address] Dr. Johann Spring IG # 0.02 10e3/ul Normal 0.00-0.03 [facility] Comment on above: Performed By: #### C BC #### [facility] [address] [place] [address] Dr. Johann Spring IG % 0.3 % Normal 0.0-0.5 [facility] Comment on above: Performed By: #### C BC #### [facility] [address] [place] [address] Dr. Johann Spring LYMPH # 2.6 103/ul Normal 1.2-3.8 [facility] Comment on above: Performed By: #### C BC #### [facility] [address] [place] [address] Dr. Johann Spring Lymphocytes/100 WBC (Bld) 32.9 % Normal 20.5-60.0 [facility] Comment on above: Performed By: #### C BC #### [facility] [address] [place] [address] Dr. Johann Spring MANUAL DIFF REQ NO Normal [facility] Comment on above: Performed By: #### C BC #### [facility] [address] [place] [address] Dr. Johann Spring MCH (RBC) [Entitic mass] 28.2 pg Normal 26.7-34.0 [facility] Comment on above: Performed By: #### C BC #### [facility] [address] [place] [address] Dr. Johann Spring MCHC (RBC) [Mass/Vol] 32.6 g/dL Normal 29.9-35.2 [facility] Comment on above: Performed By: #### C BC #### [facility] [address] [place] [address] [address] Johann Spring MCV (RBC) [Entitic vol] 86.4 fL Normal 81.0-99.0 [facility] Comment on above: Performed By: #### C BC #### [facility] [address] [address] [address] Johann Spring MONO # 0.3 103/ul Normal 0.3-0.8 [facility] Comment on above: Performed By: #### C BC #### [facility] [address] [place] [address] Dr. Johann Spring Monocytes/100 WBC (Bld) 4.1 % Normal 1.7-12.0 [facility] Comment on above: Performed By: #### C BC #### [facility] [address] [place] [address] Dr. Johann Spring NEUT # 4.8 103/ul Normal 1.4-6.5 [facility] Comment on above: Performed By: #### C BC #### [facility] [address] [place] [address] Dr. Johann Spring Neutrophils/100 WBC (Bld) 60.7 % Normal 43.0-75.0 [facility] Comment on above: Performed By: #### C BC #### [facility] [address] [place] [address] Dr. Johann Spring Platelet mean volume (Bld) [Entitic vol] 10.1 fL Normal 9.5-13.5 [facility] Comment on above: Performed By: #### C BC #### [facility] [address] [place] [address] Dr. Johann Spring PLT 205 103/ul Normal 150-450 [facility] Comment on above: Performed By: #### C BC #### [facility] [address] [place] [address] Dr. Johann Spring RBC 4.40 106/ul Normal 4.20-5.40 [facility] Comment on above: Performed By: #### C BC #### [facility] [address], [place] [address] Dr. Johann Spring WBC 7.8 103/ul Normal 4.0-11.0 [facility] Comment on above: Performed By: #### C BC #### [facility] [address], [place] [address] FOOT RT WO CONon 06-12-19 CT FOOT RT WO CON EXAMINATION: CT FOOT RT WO CON HISTORY: Contusion of right foot COMPARISON: No relevant comparison available. TECHNIQUE: Multi-planar CT images were created without IV contrast. Dose reduction techniques were achieved by using automated exposure control and/or adjustment of mA and/or kV according to patient size and/or use of iterative reconstruction technique. FINDINGS: BONES: No acute fracture or dislocation. Fusion the first metatarsal-phalangeal joint with a dorsal plate and multiple screws. 4 of the screws protrude beyond the plantar cortex of the first metatarsal. No mechanical failure is observed. Mild to moderate enthesopathic spurring of the calcaneus SOFT TISSUES: Negative. No visible soft tissue swelling. EFFUSION: None visible. OTHER: Negative. IMPRESSION: No acute abnormality Electronically authenticated by: WEN MCCABE Date: 2021-06-11 07:07 Normal [facility] Vital Signs Date Time Vital Sign Value Performing Clinician Facility 03-18-2023 09:00-0500 Body height 160.02 cm Shelley Mc Other [facility] Other 03-18-2023 09:00-0500 Body mass index (BMI) [Ratio] 66.31 kg/m2 Shelley Mc Other [facility] Other 03-18-2023 09:00-0500 Body weight 169.83 kg Shelley Mc Other [facility] Other 03-18-2023 09:00-0500 Diastolic blood pressure 84 mm[Hg] Shelley Mc Other [facility] Other 03-18-2023 09:00-0500 Respiratory rate 18 /min Shelley Mc Other [facility] Other 03-18-2023 09:00-0500 SaO2% (BldA) [Mass fraction] 95 % Shelleysharlene Mc Other [facility] Other 03-18-2023 09:00-0500 Systolic blood pressure 120 mm[Hg] Shelley Mc Other [facility] Other 03-11-2023 12:00-0500 Diastolic blood pressure 98 mm[Hg] DO Thu Nicolasa Work Phone: [facility] 03-11-2023 12:00-0500 Heart rate 70 /min DO Thu Nicloasa Work Phone: [facility] 03-11-2023 12:00-0500 Respiratory rate 18 /min DO Thu Nicolasa Work Phone: [facility] 03-11-2023 12:00-0500 SaO2% (BldA) [Mass fraction] 95 % DO Thu Nicolasa Work Phone: [facility] 03-11-2023 12:00-0500 Systolic blood pressure 156 mm[Hg] DO Thu Nicolasa Work Phone: [facility] 03-11-2023 10:07-0500 Body height 162.56 cm DO Thu Nicolasa Work Phone: [facility] 03-11-2023 10:07-0500 Body weight 172.36 kg DO Thu Nicolasa Work Phone: [facility] 02-20-2023 10:00-0500 Body height 160.02 cm Shelleysharlene Mc Other [facility] Other 02-20-2023 10:00-0500 Body mass index (BMI) [Ratio] 67.5 kg/m2 Shelleylidia Mc Other [facility] Other 02-20-2023 10:00-0500 Body weight 172.87 kg Shelleylidia Mc Other [facility] Other 02-20-2023 10:00-0500 Diastolic blood pressure 100 mm[Hg] Shelleylidia Mc Other [facility] Other 02-20-2023 10:00-0500 Respiratory rate 18 /min Shelleylidia Mc Other [facility] Other 02-20-2023 10:00-0500 SaO2% (BldA) [Mass fraction] 98 % Shelleylidia Mc Other [facility] Other 02-20-2023 10:00-0500 Systolic blood pressure 138 mm[Hg] Shelley Mc Other [facility] Other 02-19-2023 09:15-0500 Body height 160.02 cm Wen Pollack Other [facility] Other 02-19-2023 09:15-0500 Body mass index (BMI) [Ratio] 67.48 kg/m2 Wen Pollack Other [facility] Other 02-19-2023 09:15-0500 Body weight 172.82 kg Wen Pollack Other [facility] Other 02-19-2023 09:15-0500 Diastolic blood pressure 81 mm[Hg] Wen Pollack Other [facility] Other 02-19-2023 09:15-0500 SaO2% (BldA) [Mass fraction] 98 % Wne Pollack Other [facility] Other 02-19-2023 09:15-0500 Systolic blood pressure 137 mm[Hg] Wen Pollack Other [facility] Other 01-15-2023 13:45-0500 Body height 160.02 cm Imad Asaad Other [facility] Other 01-15-2023 13:45-0500 Body mass index (BMI) [Ratio] 70.71 kg/m2 Imad Asaad Other [facility] Other 01-15-2023 13:45-0500 Body weight 181.08 kg Imad Asaad Other [facility] Other 01-15-2023 13:45-0500 Diastolic blood pressure 88 mm[Hg] Imad Asaad Other [facility] Other 01-15-2023 13:45-0500 Systolic blood pressure 147 mm[Hg] Imad Asaad Other [facility] Other 12-12-2022 09:45-0400 Body height 160.02 cm Imad Asaad Other [facility] Other 12-12-2022 09:45-0400 Body mass index (BMI) [Ratio] 70.49 kg/m2 Imad Asaad Other [facility] Other 12-12-2022 09:45-0400 Body weight 180.53 kg Imad Asaad Other [facility] Other 12-12-2022 09:45-0400 Diastolic blood pressure 94 mm[Hg] Imad Asaad Other [facility] Other 12-12-2022 09:45-0400 Systolic blood pressure 167 mm[Hg] Imad Asaad Other [facility] Other 02-20-2022 09:45-0500 Body height 160.02 cm Wen Pollack Other [facility] Other 02-20-2022 09:45-0500 Body mass index (BMI) [Ratio] 72.53 kg/m2 Wen Pollack Other [facility] Other 02-20-2022 09:45-0500 Body temperature 98.2 [degF] Wen Pollack Other [facility] Other 02-20-2022 09:45-0500 Body weight 185.75 kg Wen Pollack Other [facility] Other 02-20-2022 09:45-0500 Diastolic blood pressure 89 mm[Hg] Wen Pollack Other [facility] Other 02-20-2022 09:45-0500 SaO2% (BldA) [Mass fraction] 98 % Wen Pollack Other [facility] Other 02-20-2022 09:45-0500 Systolic blood pressure 149 mm[Hg] Wen Pollack Other [facility] Other 02-07-2021 16:30-0500 Body height 160.02 cm Wen Pollack Other [facility] Other 02-07-2021 16:30-0500 Body mass index (BMI) [Ratio] 60.22 kg/m2 Wen Pollack Other [facility] Other 02-07-2021 16:30-0500 Body weight 154.22 kg Wen Pollack Other [facility] Other 02-07-2021 16:30-0500 Diastolic blood pressure 90 mm[Hg] Wen Pollack Other [facility] Other 02-07-2021 16:30-0500 SaO2% (BldA) [Mass fraction] 95 % Wen Pollack Other [facility] Other 02-07-2021 16:30-0500 Systolic blood pressure 137 mm[Hg] Wen Pollack Other [facility] Other 12-06-2020 10:00-0400 Body height 160.02 cm Wen Pollack Other [facility] Other 12-06-2020 10:00-0400 Body mass index (BMI) [Ratio] 61.11 kg/m2 Wen Pollack Other [facility] Other 12-06-2020 10:00-0400 Body weight 156.49 kg Wen Pollack Other [facility] Other 12-06-2020 10:00-0400 Diastolic blood pressure 86 mm[Hg] Wen Pollack Other [facility] Other 12-06-2020 10:00-0400 SaO2% (BldA) [Mass fraction] 96 % Wen Pollack Other [facility] Other 12-06-2020 10:00-0400 Systolic blood pressure 125 mm[Hg] Wen Pollack Other [facility] Other Encounters Encounter Date Encounter Type Care Provider Facility Start: 04-04-2023 End: [facility] Start: 04-02-2023 End: 04-02-2023 ambulatory YSABEL Tamy MULLER Not Available Start: 03-25-2023 End: 03-25-2023 ambulatory RIO STERLING Not Available Start: 03-25-2023 ambulatory Thu Nicolasa Facility:[facility] Start: 03-18-2023 End: 03-18-2023 ambulatory [facility] Other [facility] Other Start: 03-18-2023 Office outpatient vi sit 15 minutes Shelley Mc [facility] Start: 03-13-2023 End: 03-14-2023 ambulatory Bia Goldman 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 [employer] Facility:[facility] Start: 03-11-2023 End: 03-11-2023 ambulatory Imad Asaad Facility:[facility] Start: 03-11-2023 End: 03-11-2023 Admission to same day surgery center DO Thu Nicolasa Work Phone: [facility] [place] Work Phone: Start: 03-11-2023 End: 03-11-2023 ambulatory DO Thu G Nicolasa Work Phone: [facility] Work Phone: Start: 02-27-2023 End: 02-27-2023 [facility] Start: 02-27-2023 Encounter by patricia Rosa [facility] Start: 02-24-2023 End: 02-24-2023 ambulatory Imad Asaad Other [facility] Other Start: 02-24-2023 Telephone encounter Imad Asaad [facility] Start: 02-20-2023 End: 02-20-2023 ambulatory Shelley Mc Other [facility] Other Start: 02-20-2023 Office outpatient ne w 45 minutes Shelley Mc [facility] [place] Start: 02-19-2023 Office outpatient vi sit 25 minutes Wen Pollack [facility] Start: 02-19-2023 End: 02-19-2023 ambulatory Wen Pollack [facility]) Other Start: 02-19-2023 End: 02-19-2023 Patient encounter procedure DO Thu Nicolasa Work Phone: [facility] Work Phone: Start: 02-06-2023 End: 02-06-2023 ambulatory THU Jennifer NICOLASA Not Available Start: 02-04-2023 End: 02-05-2023 ambulatory RIO STERLING Not Available Start: 01-24-2023 End: 01-24-2023 ambulatory Thu Nicolasa Facility:[facility] Start: 01-24-2023 End: 01-25-2023 ambulatory Sam Herbert MD Facility:[facility] Start: 01-22-2023 End: 01-22-2023 ambulatory Thu Nicolasa Facility:[facility] Start: 01-17-2023 End: 03-21-2023 ambulatory Thu Nicolasa Facility:[facility] Start: 01-15-2023 End: 01-15-2023 ambulatory Imad Asaad Other [facility] Other Start: 01-15-2023 Office outpatient vi sit 25 minutes Imad Asaad [facility] Start: 01-11-2023 End: 03-20-2023 ambulatory Mati Bell Facility:[facility] Start: 01-10-2023 End: 01-11-2023 ambulatory [facility] Facility:[facility] Start: 01-10-2023 End: 01-11-2023 ambulatory Sam Herbert MD Facility:[facility] Start: 12-24-2022 End: 12-24-2022 ambulatory Imad Asaad Facility:[facility] Start: 12-24-2022 End: 12-24-2022 [facility] Work Phone: Start: 12-12-2022 End: 12-12-2022 ambulatory Imad Asaad Other [facility] Other Start: 12-12-2022 Office outpatient ne w 45 minutes Imad Asaad [facility] Start: 12-11-2022 End: 12-12-2022 ambulatory [facility] Facility:[facility] Start: 12-04-2022 End: 12-04-2022 ambulatory [facility] Facility:[facility] Start: 11-18-2022 End: 11-19-2022 ambulatory Bia Goldman APRN-[employer] Facility:[facility] Start: 10-07-2022 End: 10-07-2022 ambulatory [facility] Facility:[facility] Start: 10-01-2022 End: 10-01-2022 ambulatory [facility] Facility:[facility] Start: 08-12-2022 End: 12-25-2022 ambulatory Ulicesspike Longoria Facility:[facility] Start: 07-16-2022 End: 07-16-2022 ambulatory [facility] Facility:[facility] Start: 07-15-2022 End: 07-16-2022 ambulatory [facility] Facility:[facility] Start: 06-21-2022 End: 01-13-2023 ambulatory [facility] Facility:[facility] Start: 05-16-2022 End: 07-18-2022 ambulatory [facility] Facility:[facility] Start: 04-22-2022 End: 04-23-2022 ambulatory Thu Nicolasa Facility:[facility] Start: 04-12-2022 End: 04-13-[address] MALATHI LOUIS Facility:[facility] Start: 02-20-2022 Office outpatient vi sit 25 minutes Wen Pollack [facility] Start: 02-20-2022 End: 02-20-2022 ambulatory DO Thu Baldwin Work Phone: [facility] Work Phone: Start: 02-20-2022 End: 02-20-2022 Patient encounter procedure DO Thu Baldwin Work Phone: [facility] Start: 11-06-2021 End: 11-07-[address] YAN STRICKLAND Facility:[facility] Start: 11-01-2021 ambulatory LOR CHEEK Faci lity:[facility] Start: 10-30-2021 Encounter for preprocedural cardiovascular examination LOR CHEEK [facility] Start: 10-26-2021 End: 10-27-2021 ambulatory LOR CHEEK Facility:[facility] Start: 10-26-2021 End: 10-27-2021 Encounter for preprocedural cardiovascular examination LOR CHEEK Facility:[facility] Start: 10-08-2021 End: 10-08-2021 ambulatory LOR CHEEK Facility:[facility] Start: 10-02-2021 Encounter for other preprocedural examination LOR Shaffer [facility] Start: 10-02-2021 Encounter for preprocedural laboratory examination LOR CHEEK [facility] Start: 10-01-2021 End: 10-02-2021 ambulatory LOR CHEEK Facility:[facility] Start: 10-01-2021 End: 10-02-2021 Encounter for preprocedural laboratory examination LOR CHEEK Facility:[facility] Start: 06-09-2021 End: 06-10-2021 ambulatory LOR CHEEK Facility:[facility] Start: 02-07-2021 End: 02-07-2021 ambulatory Wen Pollack Other [facility] Start: 02-07-2021 Office outpatient vi sit 25 minutes [facility] Start: 12-06-2020 Office outpatient ne w 45 minutes [facility] Procedures Date Procedure Procedure Detail Performing Clinician Start: 03-11-2023 Ultrasonic guidance for needle biopsy DO Thu Baldwin Work Phone: Start: 12-24-2022 Ultrasound elastogra phy of liver DO Thu Baldwin Work Phone: Plan of Treatment Date Care Activity Detail Author Start: 03-11-2023 [facility] Start: 12-24-2022 [facility] Patient Education [facility] Biopsy Discharge Instructions [facility] Work Phone: Immunizations Immunization Date Immunization Notes Care Provider Fa cilikwadwo 02-09-2021 COVID-19 Vaccine Moderna - Documentation Purposes Only Shelleysharlene Mc Other [facility] Other 07-01-2020 COVID-19 Vaccine Moderna - Documentation Purposes Only Shelleylidia Mc Other [facility] Other 06-03-2020 COVID-19 Vaccine Moderna - Documentation Purposes Only Shelleylidia Mc Other [facility] Other NEGATED: Highlighted row has not occurred!02-20-2023 Flu Shot - Documentation Purposes Only Patient Objection Shelleylidia Mc Other [facility] Other Payers Date Payer Category Payer Unknown [id number] 2022 Medicaid [id number] 2022 Self-pay [id number] 2019 Unknown 2019 Unknown [id number] 1985 Unknown [id number] 2.16.84 0.1.751296.3.579.2.593 1985 Unknown [id number] 2.16.84 0.1.290265.3.579.2.593 1985 Unknown [id number] 2.16.84 0.1.646019.3.579.2.593 1985 Unknown [id number] 2.16.84 0.1.821945.3.579.2.593 1985 Unknown [id number] 2.16.84 0.1.088395.3.579.2.593 1985 Unknown [id number] 2.16.84 0.1.981540.3.579.2.593 1985 Unknown [id number] 2.16.84 0.1.890590.3.579.2.593 1985 Unknown [id number] 2.16. 840.1.580270.3.579.2.196 1985 Unknown [id number] 2.16. 840.1.792900.3.579.2.196 1985 Unknown [id number] 2.16. 840.1.790697.3.579.2.196 1985 Unknown [id number] 2.16. 840.1.036251.3.579.2.196 1985 Unknown [id number] 2.16.84 0.1.448252.3.579.2.1259 1985 Unknown [id number] 2.16.84 0.1.322249.3.579.2.1259 1985 Unknown [id number] 2.16.840 .1.363767.3.579.2.1259 1985 Unknown [id number] 2.16.840 .1.292914.3.579.2.1259 1985 Unknown [id number] 2.16.8 40.1.926752.3.579.2.718 1985 Unknown [id number] 2.16.8 40.1.841460.3.579.2.718 1985 Unknown [id number] 2.16.8 40.1.806516.3.579.2. 1985 Unknown [id number] 2.16.8 40.1.104235.3.579.2. 1985 Unknown [id number] 2.16.8 40.1.665606.3.579.2. 1985 Unknown [id number] 2.16.8 40.1.961724.3.579.2. 1985 Unknown [id number] 2.16.8 40.1.313724.3.579.2. 1985 Unknown [id number] 2.16.8 40.1.265296.3.579.2. 1985 Unknown [id number] 2.16.8 40.1.128740.3.579.2. 1985 Unknown [id number] 2.16.8 40.1.084979.3.579.2. 1985 Unknown [id number] 2.16.8 40.1.861051.3.579.2. 1985 Unknown [id number] 2.16.8 40.1.213025.3.579.2. 1985 Unknown [id number] 2.16.8 40.1.597983.3.579.2. 1985 Unknown [id number] 2.16.8 40.1.795648.3.579.2. 1985 Unknown [id number] 2.16.8 40.1.662996.3.579.2. 1985 Unknown [id number] 2.16.8 40.1.158530.3.579.2. 1985 Unknown [id number] 2.16.8 40.1.559517.3.579.2. 1985 Unknown [id number] 2.16.8 40.1.375063.3.579.2. 1985 Unknown [id number] 2.16.8 40.1.235280.3.579.2.718 1985 Unknown [id number] 2.16.8 40.1.543637.3.579.2.718 1959 Unknown [id number] 2. 16.840.1.246685.19 1959 Unknown [id number] 1959 Worker's Compensation [id number] [facility] [id number] 2.16.840.1.248497.19 Private Health Insurance [id number] 2.16.840.1.409027.19 Unknown [id number] 2.16.8 40.1.934095.3.579.2.531 Unknown [id number] 2.16.8 40.1.620992.3.579.2.531 Unknown [id number] 2.16.8 40.1.012662.3.579.2.531 Social History Date Type Detail Facility Sex Assigned At [facility] Other Start: 1985 Sex Assigned At Female F [facility] Goals Date Patient Goal Desired Activity /State Clinical Notes 12-06-2020 to 04-07-2023 Note Date & Type Note Facility 04-07-2023 Note [id number] F [facility] 04-04-2023 Note [facility] SURGERY Clinical Discharge Summary PERSON INFORMATION Name MICHAEL RAMON Age 37 Years 1985 Sex FEMALE Language Gibraltarian PCP Shelley Mc DO Marital Status Med Service Pain Management Surgery Acct# Arrival 04/04/2023 09:45:39 Visit Reason SACROILIITIS Acuity LOS 009 20:28 Address: [address] [place] [address] [address] [facility] [id number] Comment: PROVIDER INFORMATION VITALS INFORMATION Vital Sign Triage Latest Temp Oral Temp Temporal Temp Intravascular Temp Axillary Temp Rectal 02 Sat Respiratory Rate Peripheral Pulse Rate Apical Heart Rate Blood Pressure / / Comment: MEDICAL INFORMATION Allergy Info: No known allergies Prescriptions Given: baclofen (baclofen 10 mg oral tablet) 1 tab(s) Oral (given by mouth) At bedtime. Refills: 2. buPROPion (buPROPion 150 mg/24 hours (XL) oral tablet, extended release) 1 tab(s) Oral (given by mouth) every 24 hours. TAKE 1 TABLET BY MOUTH ONCE DAILY IN THE MORNING. DO NOT CRUSH, CHEW, OR SPLIT. cetirizine (ZyrTEC 10 mg oral tablet) 1 tab(s) Oral (given by mouth) every day. diclofenac (diclofenac sodium 50 mg oral delayed release tablet) 1 tab(s) Oral (given by mouth) 2 times a day (scheduled). Refills: 0. melatonin (melatonin 3 mg oral tablet) 1 tab(s) Oral (given by mouth) once a day (at bedtime) as needed for insomnia. metFORMIN (metFORMIN 500 mg oral tablet) 1 tab(s) Oral (given by mouth) every day. TAKE 1 TABLET BY MOUTH IN THE MORNING WITH MEALS. pregabalin (Lyrica 50 mg oral capsule) 1 cap(s) Oral (given by mouth) once a day (in the evening). Refills: 0., OARRS REVIEWED 03/25/2023 tirzepatide (Mounjaro 2.5 mg/0.5 mL subcutaneous solution) 2.5 Milligram Subcutaneous (under the skin) every week. Medication List: Medications to Continue That Have Not Changed Other Medications baclofen (baclofen 10 mg oral tablet) 1 tab(s) Oral (given by mouth) At bedtime. Refills: 2. buPROPion (buPROPion 150 mg/24 hours (XL) oral tablet, extended release) 1 tab(s) Oral (given by mouth) every 24 hours. TAKE 1 TABLET BY MOUTH ONCE DAILY IN THE MORNING. DO NOT CRUSH, CHEW, OR SPLIT. cetirizine (ZyrTEC 10 mg oral tablet) 1 tab(s) Oral (given by mouth) every day. diclofenac (diclofenac sodium 50 mg oral delayed release tablet) 1 tab(s) Oral (given by mouth) 2 times a day (scheduled). Refills: 0. melatonin (melatonin 3 mg oral tablet) 1 tab(s) Oral (given by mouth) once a day (at bedtime) as needed for insomnia. metFORMIN (metFORMIN 500 mg oral tablet) 1 tab(s) Oral (given by mouth) every day. TAKE 1 TABLET BY MOUTH IN THE MORNING WITH MEALS. pregabalin (Lyrica 50 mg oral capsule) 1 cap(s) Oral (given by mouth) once a day (in the evening). Refills: 0. tirzepatide (Mounjaro 2.5 mg/0.5 mL subcutaneous solution) 2.5 Milligram Subcutaneous (under the skin) every week. Medications to Continue That Have Not Changed Other Medications baclofen (baclofen 10 mg oral tablet) 1 tab(s) Oral (given by mouth) At bedtime. Refills: 2. buPROPion (buPROPion 150 mg/24 hours (XL) oral tablet, extended release) 1 tab(s) Oral (given by mouth) every 24 hours. TAKE 1 TABLET BY MOUTH ONCE DAILY IN THE MORNING. DO NOT CRUSH, CHEW, OR SPLIT. cetirizine (ZyrTEC 10 mg oral tablet) 1 tab(s) Oral (given by mouth) every day. diclofenac (diclofenac sodium 50 mg oral delayed release tablet) 1 tab(s) Oral (given by mouth) 2 times a day (scheduled). Refills: 0. melatonin (melatonin 3 mg oral tablet) 1 tab(s) Oral (given by mouth) once a day (at bedtime) as needed for insomnia. metFORMIN (metFORMIN 500 mg oral tablet) 1 tab(s) Oral (given by mouth) every day. TAKE 1 TABLET BY MOUTH IN THE MORNING WITH MEALS. pregabalin (Lyrica 50 mg oral capsule) 1 cap(s) Oral (given by mouth) once a day (in the evening). Refills: 0. tirzepatide (Mounjaro 2.5 mg/0.5 mL subcutaneous solution) 2.5 Milligram Subcutaneous (under the skin) every week. Medications to Continue That Have Not Changed Other Medications baclofen (baclofen 10 mg oral tablet) 1 tab(s) Oral (given by mouth) At bedtime. Refills: 2. buPROPion (buPROPion 150 mg/24 hours (XL) oral tablet, extended release) 1 tab(s) Oral (given by mouth) every 24 hours. TAKE 1 TABLET BY MOUTH ONCE DAILY IN THE MORNING. DO NOT CRUSH, CHEW, OR SPLIT. cetirizine (ZyrTEC 10 mg oral tablet) 1 tab(s) Oral (given by mouth) every day. diclofenac (diclofenac sodium 50 mg oral delayed release tablet) 1 tab(s) Oral (given by mouth) 2 times a day (scheduled). Refills: 0. melatonin (melatonin 3 mg oral tablet) 1 tab(s) Oral (given by mouth) once a day (at bedtime) as needed for insomnia. metFORMIN (metFORMIN 500 mg oral tablet) 1 tab(s) Oral (given by mouth) every day. TAKE 1 TABLET BY MOUTH IN THE MORNING WITH MEALS. pregabalin (Lyrica 50 mg oral capsule) 1 cap(s) Oral (given by mouth) once a day (in the evening). Refills: 0. tirzepatide (Mounjaro 2.5 mg/0.5 mL subcutaneous solution) 2.5 Milligram Subcutaneous (more content not included)... [facility] 04-03-2023 Note [id number] IFF The history of present illness has been reviewed. There are no changes document. [Electronically Signed on: 04/04/2023 10:21 EST] SAM HERBERT MD [Verified on: 04/04/2023 10:21 EST] SAM HERBERT MD [Transcribed on: 04/03/2023 12:50 EST] [facility] 03-18-2023 Evaluation note Encounter Date Diagnosis Assessment Notes Mar, GERD (gastroesoph ageal reflux disease) (ICD-10 - K21.9) Will send PPI daily, will recheck at upcoming appt in Mar, Irregular periods (ICD-10 - N92.6) Given new onset intermenstrual bleeding and menorrhagia will refer to press box custodian for evaluation. Discussed likely need for pelvic u/s and possible EMB. Pap deferred today due to period. [facility] Other 12-14-2023 Evaluation note* Encounter Date Diagnosis Assessment Notes Treatment Notes Treatment Clinical Notes Feb, Type 2 diabetes mellitus (ICD-10 - E11.9) Per patient very well controlled on current medications. She is tolerating Moujaro well without side effect, she is current on 5 mg dosage. Discussed after 4 weeks if tolerating can increase to 7.5 mg weekly. Will f/u in 2 months to recheck a1c. Feb, Obstructive sleep apnea (adult) (pediatric) (ICD-10 - G47.33) Compliant with CPAP Feb, HAMMOND (nonalcoholic steatohepatitis) (ICD-10 - K75.81) Following with Dr. Longo, actively working on weight loss. Feb, Major depression in full remission (ICD-10 - F32.5) [facility] Other 12-13-2023 NotePatient Education Materials Follows: [facility] [id number] Evaluation note* Encounter Date Diagnosis Assessment Notes Treatment Notes Treatment Clinical Notes Feb, Obstructive sleep apnea (ICD-10 - G47.33) She is using and benefiting from treatment. I reviewed strategies to reduce the rainout, and encouraged her to use the machine every night, all night. She will call if problems Feb, BMI 60.0-69.9, adult (ICD-10 - Z68.44) She has been working on lifestyle changes and recently was started on Mounjaro. She has good control with current settings but I am hopeful that as body weight comes down lower pressures may be possible Feb, Other insomnia (ICD-10 - G47.09) She does not report ongoing problems with insomnia Feb, Other Call if any questions or problems. Patient is advised to work on healthy diet choices and appropriate servings, weight control, regular exercise as directed, and reduce fat intake. Use machine regularly, and keep up with mask changes as needed. Call if problems with mask toleration, increased sleepiness, or poor response to treatment. . [facility] Other 11-20-2023 Note [id number]11-17-2023 [facility] SURGERY Clinical Discharge Summary PERSON INFORMATION Name MICHAEL RAMON Age 37 Years 1985 Sex FEMALE Language Gibraltarian PCP Nicolasa SMITH, Thu Marital Status Med Service Pain Management Surgery Acct# Arrival 01/24/2023 11:22:25 Visit Reason LUMBAR SPINAL STENOSIS WITH NEURO CLAUDICATION Acuity LOS 002 02:56 Address: [address] [place] [address] [address] [facility] [id number] Comment: PROVIDER INFORMATION VITALS INFORMATION Vital Sign Triage Latest Temp Oral Temp Temporal Temp Intravascular Temp Axillary Temp Rectal 02 Sat Respiratory Rate Peripheral Pulse Rate Apical Heart Rate Blood Pressure / / Comment: MEDICAL INFORMATION Allergy Info: No known allergies Prescriptions Given: baclofen (baclofen 10 mg oral tablet) 1 tab(s) Oral At bedtime. Refills: 2. buPROPion (buPROPion 150 mg/24 hours (XL) oral tablet, extended release) 1 tab(s) Oral every 24 hours. TAKE 1 TABLET BY MOUTH ONCE DAILY IN THE MORNING. DO NOT CRUSH, CHEW, OR SPLIT. cetirizine (ZyrTEC 10 mg oral tablet) 1 tab(s) Oral every day. cholecalciferol (D3-50 (50,000 intl units) oral capsule) TAKE 1 CAPSULE BY MOUTH ONCE A WEEK. diclofenac (diclofenac sodium 50 mg oral delayed release tablet) 1 tab(s) Oral 2 times a day. Refills: 0. melatonin (melatonin 3 mg oral tablet) 1 tab(s) Oral once a day (at bedtime) as needed for insomnia. metFORMIN (metFORMIN 500 mg oral tablet) 1 tab(s) Oral every day. TAKE 1 TABLET BY MOUTH IN THE MORNING WITH MEALS. pregabalin (Lyrica 50 mg oral capsule) 1 cap(s) Oral once a day (in the evening). Refills: 0., OARRS REVIEWED 12/31/22 Medication List: Medications to Continue That Have Not Changed Other Medications baclofen (baclofen 10 mg oral tablet) 1 tab(s) Oral At bedtime. Refills: 2. buPROPion (buPROPion 150 mg/24 hours (XL) oral tablet, extended release) 1 tab(s) Oral every 24 hours. TAKE 1 TABLET BY MOUTH ONCE DAILY IN THE MORNING. DO NOT CRUSH, CHEW, OR SPLIT. cetirizine (ZyrTEC 10 mg oral tablet) 1 tab(s) Oral every day. cholecalciferol (D3-50 (50,000 intl units) oral capsule) TAKE 1 CAPSULE BY MOUTH ONCE A WEEK. diclofenac (diclofenac sodium 50 mg oral delayed release tablet) 1 tab(s) Oral 2 times a day. Refills: 0. melatonin (melatonin 3 mg oral tablet) 1 tab(s) Oral once a day (at bedtime) as needed for insomnia. metFORMIN (metFORMIN 500 mg oral tablet) 1 tab(s) Oral every day. TAKE 1 TABLET BY MOUTH IN THE MORNING WITH MEALS. pregabalin (Lyrica 50 mg oral capsule) 1 cap(s) Oral once a day (in the evening). Refills: 0. Medications to Continue That Have Not Changed Other Medications baclofen (baclofen 10 mg oral tablet) 1 tab(s) Oral At bedtime. Refills: 2. buPROPion (buPROPion 150 mg/24 hours (XL) oral tablet, extended release) 1 tab(s) Oral every 24 hours. TAKE 1 TABLET BY MOUTH ONCE DAILY IN THE MORNING. DO NOT CRUSH, CHEW, OR SPLIT. cetirizine (ZyrTEC 10 mg oral tablet) 1 tab(s) Oral every day. cholecalciferol (D3-50 (50,000 intl units) oral capsule) TAKE 1 CAPSULE BY MOUTH ONCE A WEEK. diclofenac (diclofenac sodium 50 mg oral delayed release tablet) 1 tab(s) Oral 2 times a day. Refills: 0. melatonin (melatonin 3 mg oral tablet) 1 tab(s) Oral once a day (at bedtime) as needed for insomnia. metFORMIN (metFORMIN 500 mg oral tablet) 1 tab(s) Oral every day. TAKE 1 TABLET BY MOUTH IN THE MORNING WITH MEALS. pregabalin (Lyrica 50 mg oral capsule) 1 cap(s) Oral once a day (in the evening). Refills: 0. Medications to Continue That Have Not Changed Other Medications baclofen (baclofen 10 mg oral tablet) 1 tab(s) Oral At bedtime. Refills: 2. buPROPion (buPROPion 150 mg/24 hours (XL) oral tablet, extended release) 1 tab(s) Oral every 24 hours. TAKE 1 TABLET BY MOUTH ONCE DAILY IN THE MORNING. DO NOT CRUSH, CHEW, OR SPLIT. cetirizine (ZyrTEC 10 mg oral tablet) 1 tab(s) Oral every day. cholecalciferol (D3-50 (50,000 intl units) oral capsule) TAKE 1 CAPSULE BY MOUTH ONCE A WEEK. diclofenac (diclofenac sodium 50 mg oral delayed release tablet) 1 tab(s) Oral 2 times a day. Refills: 0. melatonin (melatonin 3 mg oral tablet) 1 tab(s) Oral once a day (at bedtime) as needed for insomnia. metFORMIN (metFORMIN 500 mg oral tablet) 1 tab(s) Oral every day. TAKE 1 TABLET BY MOUTH IN THE MORNING WITH MEALS. pregabalin (Lyrica 50 mg oral capsule) 1 cap(s) Oral once a day (in the evening). Refills: 0. Comment: Lab and Radiology Results Laboratory or Other Results This Visit (last charted value for your 01/24/2023 visit) No Laboratory or Other Results This Visit DIET & ACTIVITY Patient Activity Level: Patient Diet: Patient Activity Restrictions: DISCHARGE INFORMATION Discharge Disposition: Discharge Location: DEPART REASON INCOMPLETE INFORMATION PATIENT EDUCATION INFORMATION Instructions: Follow up: Type Location Start Finish State PT 30 ([facility]) PT 01/27/2023 9:30 AM 01/27/2023 10:00 AM Confirmed PT 30 (more content not included)...[facility] [id number] Note [id number] The history of present illness has been reviewed. There are no changes document. [Electronically Signed on: 01/24/2023 07:23 EST] SAM HERBERT MD [Verified on: 01/24/2023 07:23 EST] SAM HERBERT MD [Transcribed on: 01/23/2023 13:43 EST] [facility]11-15-2023 NotePatient Education Materials Follows:[facility] [id number] Evaluation note* Encounter Date Diagnosis Assessment Notes Treatment Notes Treatment Clinical Notes Jan, Hepatic steatosis (ICD-10 - K76.0) [facility] 10-05-2023 Evaluation note* Encounter Date Diagnosis Assessment Notes Treatment Notes Treatment Clinical Notes Dec, HAMMOND (nonalcoholic steatohepatitis) (ICD-10 - K75.81) PATIENT TO PROCEED WITH LABS AND FIBRSOCAN. Dec, Hepatic steatosis (ICD-10 - K76.0) Dec, Elevated liver enzymes (ICD-10 - R74.8) [facility] Other 09-27-2023 NotePatient Education Materials Follows: [facility] [id number] NotePatient Education Materials Follows: Hypertension, Adult Your blood pressure was elevated today. Hypertension is another name for high blood pressure. High blood pressure forces your heart to workharder to pump blood. This can cause problems over time. There are two numbers in a blood pressure reading. There is a top number (systolic) over a bottom number (diastolic). It is best to have a blood pressure that is below 120/80. What are the causes? The cause of this condition is not known. Some other conditions can lead to high blood pressure. What increases the risk? Some lifestyle factors can make you more likely to develop high blood pressure: ? Smoking. ? Not getting enough exercise or physical activity. ? Being overweight. ? Having too much fat, sugar, calories, or salt (sodium) in your diet. ? Drinking too much alcohol. Other risk factors include: ? Having any of these conditions: ? Heart disease. ? Diabetes. ? High cholesterol. ? Kidney disease. ? Obstructive sleep apnea. ? Having a family history of high blood pressure and high cholesterol. ? Age. The risk increases with age. ? Stress. What are the signs or symptoms? High blood pressure may not cause symptoms. Very high blood pressure (hypertensive crisis) may cause: ? Headache. ? Fast or uneven heartbeats (palpitations). ? Shortness of breath. ? Nosebleed. ? Vomiting or feeling like you may vomit (nauseous). ? Changes in how you see. ? Very bad chest pain. ? Feeling dizzy. ? Seizures. How is this treated? ? This condition is treated by making healthy lifestyle changes, such as: ? Eating healthy foods. ? Exercising more. ? Drinking less alcohol. ? Your doctor may prescribe medicine if lifestyle changes do not help enough and if: ? Your top number is above 130. ? Your bottom number is above 80. ? Your personal target blood pressure may vary. Follow these instructions at home: Eating and drinking ? If told, follow the DASH eating plan. To follow this plan: ? Fill one half of your plate at each meal with fruits and vegetables. ? Fill one fourth of your plate at each meal with whole grains. Whole grains include whole-wheat pasta, brown rice, and whole-grain bread. ? Eat or drink low-fat dairy products, such as skim milk or low-fat yogurt. ? Fill one fourth of your plate at each meal with low-fat (lean) proteins. Low- fat proteins includefish, chicken without skin, eggs, beans, and tofu. ? Avoid fatty meat, cured and processed meat, or chicken with skin. ? Avoid pre-made or processed food. ? Limit the amount of salt in your diet to less than 1,500 mg each day. ? Do not drink alcohol if: ? Your doctor tells you not to drink. ? You are , may be , or are planning to become . ? If you drink alcohol: ? Limit how much you have to: ? 0?1 drink a day for women. ? 0?2 drinks a day for men. ? Know how much alcohol is in your drink. In the [place] one drink equals one 12 oz bottle of beer (355 mL), one 5 oz glass of wine (148 mL), or one 1? oz glass of hard liquor (44 mL). Lifestyle ? Work with your doctor to stay at a healthy weight or to lose weight. Ask your doctor what the best weight is for you. ? Get at least 30 minutes of exercise that causes your heart to beat faster (aerobic exercise) mostdays of the week. This may include walking, swimming, or biking. ? Get at least 30 minutes of exercise that strengthens your muscles (resistance exercise) at least 3 days a week. This may include lifting weights or doing Pilates. ? Do not smoke or use any products that contain nicotine or tobacco. If you need help quitting, askyour doctor. ? Check your blood pressure at home as told by your doctor. ? Keep all follow-up visits. Medicines ? Take nfex-fbq-wiajpdy and prescription medicines only as told by your doctor. Follow directions carefully. ? Do not skip doses of blood pressure medicine. The medicine does not work as well if you skip doses. Skipping doses also puts you at risk for problems. ? Ask your doctor about side effects or reactions to medicines that you should watch for. Contact a doctor if: ? You think you are having a reaction to the medicine you are taking. ? You have headaches that keep coming back. ? You feel dizzy. ? You have swelling in your ankles. ? You have trouble with your vision. Get help right away if: ? You get a very bad headache. ? You start to feel mixed up (confused). ? You feel weak or numb. ? You feel faint. ? You have very bad pain in your: ? Chest. ? Belly (abdomen). ? You vomit more than once. ? You have trouble breathing. These symptoms may be an emergency. Get help right away. Call 911. ? Do not wait to see if the symptoms will go away. ? Do not drive yourself to the hospital. Summary ? Hypertension is another name for high blood pressure. ? High blood pr (more content not included)...[facility] [id number] Note Patient Education Materials Follows: Hypertension, Adult Your blood pressure was slightly elevated today. Hypertension is another name for high blood pressure. High blood pressure forces your heart to workharder to pump blood. This can cause problems over time. There are two numbers in a blood pressure reading. There is a top number (systolic) over a bottom number (diastolic). It is best to have a blood pressure that is below 120/80. Healthy choices can help lower your blood pressure, or you may need medicine to help lower it. What are the causes? The cause of this condition is not known. Some conditions may be related to high blood pressure. What increases the risk? ? Smoking. ? Having type 2 diabetes mellitus, high cholesterol, or both. ? Not getting enough exercise or physical activity. ? Being overweight. ? Having too much fat, sugar, calories, or salt (sodium) in your diet. ? Drinking too much alcohol. ? Having long-term (chronic) kidney disease. ? Having a family history of high blood pressure. ? Age. Risk increases with age. ? Race. You may be at higher risk if you are . ? Gender. Men are at higher risk than women before age 45. After age 65, women are at higher risk than men. ? Having obstructive sleep apnea. ? Stress. What are the signs or symptoms? ? High blood pressure may not cause symptoms. Very high blood pressure (hypertensive crisis) may cause: ? Headache. ? Feelings of worry or nervousness (anxiety). ? Shortness of breath. ? Nosebleed. ? A feeling of being sick to your stomach (nausea). ? Throwing up (vomiting). ? Changes in how you see. ? Very bad chest pain. ? Seizures. How is this treated? ? This condition is treated by making healthy lifestyle changes, such as: ? Eating healthy foods. ? Exercising more. ? Drinking less alcohol. ? Your health care provider may prescribe medicine if lifestyle changes are not enough to get your blood pressure under control, and if: ? Your top number is above 130. ? Your bottom number is above 80. ? Your personal target blood pressure may vary. Follow these instructions at home: Eating and drinking ? If told, follow the DASH eating plan. To follow this plan: ? Fill one half of your plate at each meal with fruits and vegetables. ? Fill one fourth of your plate at each meal with whole grains. Whole grains include whole-wheat pasta, brown rice, and whole-grain bread. ? Eat or drink low-fat dairy products, such as skim milk or low-fat yogurt. ? Fill one fourth of your plate at each meal with low-fat (lean) proteins. Low- fat proteins includefish, chicken without skin, eggs, beans, and tofu. ? Avoid fatty meat, cured and processed meat, or chicken with skin. ? Avoid pre-made or processed food. ? Eat less than 1,500 mg of salt each day. ? Do not drink alcohol if: ? Your doctor tells you not to drink. ? You are , may be , or are planning to become . ? If you drink alcohol: ? Limit how much you use to: ? 0?1 drink a day for women. ? 0?2 drinks a day for men. ? Be aware of how much alcohol is in your drink. In the [place] one drink equals one 12 oz bottle of beer (355 mL), one 5 oz glass of wine (148 mL), or one 1? oz glass of hard liquor (44 mL). Lifestyle ? Work with your doctor to stay at a healthy weight or to lose weight. Ask your doctor what the best weight is for you. ? Get at least 30 minutes of exercise most days of the week. This may include walking, swimming, orbiking. ? Get at least 30 minutes of exercise that strengthens your muscles (resistance exercise) at least 3 days a week. This may include lifting weights or doing Pilates. ? Do not use any products that contain nicotine or tobacco, such as cigarettes, e-cigarettes, and chewing tobacco. If you need help quitting, ask your doctor. ? Check your blood pressure at home as told by your doctor. ? Keep all follow-up visits as told by your doctor. This is important. Medicines ? Take alpm-teb-mlatxxl and prescription medicines only as told by your doctor. Follow directions carefully. ? Do not skip doses of blood pressure medicine. The medicine does not work as well if you skip doses. Skipping doses also puts you at risk for problems. ? Ask your doctor about side effects or reactions to medicines that you should watch for. Contact a doctor if you: ? Think you are having a reaction to the medicine you are taking. ? Have headaches that keep coming back (recurring). ? Feel dizzy. ? Have swelling in your ankles. ? Have trouble with your vision. Get help right away if you: ? Get a very bad headache. ? Start to feel mixed up (confused). ? Feel weak or numb. ? Feel faint. ? Have very bad pain in your: ? Chest. ? Belly (abdomen). ? Throw up more than once. ? Have trouble breathing. Summary ? Hypertension is another name for high bl (more content not included)... [id number] Note [id number]12[facility]14[facility] Evaluation note* Encounter Date Diagnosis Assessment Notes Treatment Notes Treatment Clinical Notes Feb, Obstructive sleep apnea (ICD-10 - G47.33) Fortunately the patient is using and benefiting from treatment. She has had excellent clinical response and feels much better with use. Discussed mask fit, and reviewed download in detail. Fortunately it shows that she is getting excellent apnea control weight gain, and that the leak itself is not that bad even at its worst. I am wondering if 9 apnea issues are contributing to her occasional poor sleep quality, and she does note she has had joint and other problems going on. She will continue Rx, and will call if problems. Anticipate return 1 year Feb, BMI 70 and over, adult (ICD-10 - Z68.45) She reports she thinks her weight gain came from limited activity while she had foot problems, and hopes that now that those have resolved she will be able to get back to regular activity and the weight will come back down. Even with weight gain, fortunately her apnea has been well controlled using auto CPAP Feb, Other insomnia (ICD-10 - G47.09) I am hopeful that good sleep hygiene in the middle of the night when she awakens, coupled with limiting nap time to no more than 30 minutes, should together resolve her insomnia. She will call if problems Feb, Other Call if any questions or problems. Patient is advised to work on healthy diet choices and appropriate servings, weight control, regular exercise as directed, and reduce fat intake. Use machine regularly, and keep up with mask changes as needed. Call if problems with mask toleration, increased sleepiness, or poor response to treatment. . [facility] Other 08-29-2022 NotePROCEDURE: XR FOOT RT MIN 3 VIEWS COMPARISON: 06/09/2021 HISTORY: Pain FINDINGS: BONES:Interval removal of fixation plate in the first metatarsal-phalangeal joint. No acute fracture or dislocation. SOFT TISSUES:Postsurgical soft tissue swelling and subcutaneous emphysema EFFUSION:None visible. OTHER: Negative. IMPRESSION: Interval removal of first metatarsal-phalangeal joint fusion hardware Electronically authenticated by: EWN MCCABE Date: 2021-11-05 13:57[facility]12-01-2021 Evaluation note* Encounter Date Diagnosis Assessment Notes Treatment Notes Treatment Clinical Notes Feb, Obstructive sleep apnea (ICD-10 - G47.33) Fortunately the patient is using and benefiting from treatment. She has had excellent clinical response and feels much better with use. No real issues. Encouraged continued efforts at weight reduction, and advised continuing to use machine any time she is asleep. Call if problems, return 1 year Feb, BMI 60.0-69.9, adult (ICD-10 - Z68.44) Feb, Other Call if any questions or problems. Patient is advised to work on healthy diet choices and appropriate servings, weight control, regular exercise as directed, and reduce fat intake. Use machine regularly, and keep up with mask changes as needed. Call if problems with mask toleration, increased sleepiness, or poor response to treatment. . [facility] Other 09-29-2021 Evaluation note* Encounter Date Diagnosis Assessment Notes Treatment Notes Treatment Clinical Notes Nov, Obstructive sleep apnea (adult) (pediatric) (ICD-10 - G47.33) She had previous diagnosis of obstructive sleep apnea, but in the interval her body weight has increased and her AHI has increased along with it. She now has increased symptoms as well. We reviewed her home sleep test and discussed its implications in detail. She expresses good understanding. She is interested in starting auto CPAP, which will be ordered. She will return for 31 to 90-day visit Nov, BMI 60.0-69.9, adult (ICD-10 - Z68.44) We extensively discussed the importance of diet and lifestyle changes in order to help bring body weight down. She has been making dietary changes, and is currently using phentermine as an assist. Extensive discussion about weight loss strategy and the importance for her sleep apnea control Nov, Anxiety with depression (ICD-10 - F41.8) She reports her anxiety and depression are currently controlled. Anxiety and depression can cause sleep disturbance and can contribute to increased fatigue, particularly when control is not optimal Nov, Enlarged tonsils (ICD-10 - J35.1) While she does have enlarged tonsils for an adult, they are not large enough to constitute the entire problem with her sleep apnea. Tonsillectomy is not likely to be helpful at this point. If however she is successful in bringing body weight down to some degree while continuing to have sleep apnea, tonsillectomy could be considered as part of her treatment plan Nov, Other The diagnosis o f Sleep Apnea was reviewed in detail, and handout materials were provided. The patient expresses good understanding, We also reviewed the medical and accident risks associated with sleep apnea and excessive fatigue. The patient is advised to adhere to a proper sleep hygiene schedule and to assure adequate total sleep time; The patient was advised to continue efforts at progressive weight loss, including decreased overall caloric intake quantity and better food choices.The patient was advised to call or return any difficulties arise, including changes in symptoms and/or problems with treatment [facility] Other Evaluation noteNo assessment information available [facility] Work Phone: Evaluation noteNo InformationNortSaint [facility] Other Hiscvhd general Narrative - Reported* Type Description Date Medical History depression Medical History anxiety [facility] Other Hiskoid general Narrative - Reported* Type Description Date Medical History depression Medical History anxiety Medical History severe PRAKASH [facility] [employer] Other Hismubp general Narrative - Reported* Type Description Date Medical History depression Medical History anxiety Medical History severe PRAKASH Medical History diabetes mallitus Medical History sleep apnea Surgical History cholecystectomy 2005 Surgical History RIGHT FOOT-HELIX 2020 Hospitalization History SEE ABOVE [facility] Other Hiszhqi general Narrative - Reported* Type Description Date Medical History depression Medical History anxiety Medical History severe PRAKASH Medical History diabetes mallitus Medical History sleep apnea Surgical History cholecystectomy [address] Cheek--RIGHT FOOT-HELIX [address] Cheek--right foot hardw are removed 2022 Hospitalization History see above [facility] Other Chief Complaint and Reason for Visit Chief Complaint Obstructive sleep ap natalie / es pt Chief Complaint Fatty Liver k75.81 Obstructive sleep apnea k76.0 Advance Directives No Advanced Directives Records Found Advance Directive Response Recorded Date/ Time Advance Directives No October 03 7:34am Summary Purpose Family History No Family History Records FoundNo Family History Records FoundNo Family History Records FoundNo Family History Records FoundNo Family History Records Found Reason for Referral Reason New onset intermenst rual bleeding and menorrhagia x 2 months Diagnosis 1 Irregular periods (N 92.6) Referral Organization [facility] Family Julio Ortega Referring Provider First Name Shelley Referring Provider Last Name Jesusita Referring Provider Specialty Family Medi cine Referred Organization [facility] Referred Address ,[place],[address] Referred Provider Specialty OB - Gynecol ogy Referral Priority Routine Additional Source Comments REASON FOR VISIT (unrecogniz ed section and content) HST [id number] NEW PAP USER No InformationPATIENT IS HERE AT THE REQUEST OF [facility] BALDWIN FOR NASHPATIENT IS HERE FOR A FOLLOW UP FROM FIBROSCANNo InformationGET ESTABLISHEDchange orderRefill on medicationpap Care Teams (unrecognized sec tion and content) Team Status: Inactive Member Role Status Dates Wen Pollack MD Attending Provider Active Thu Baldwin DO Primary Care Provider Active Team Status: Active Member Role Status Dates Thu Baldwin DO Primary Care Provider Active Team Status: Active Member Role Status Dates Shelley Mc DO Primary Care Provider Active Team Status: Inactive Member Role Status Dates Shelley Mc DO Primary Care Provider Active Job Martinez MD Attending Provider Active Team Status: Inactive Member Role Status Dates Wen Pollack MD Attending Provider Active Shelley Mc DO Primary Care Provider Active Team Status: Inactive Member Role Status Dates Thu Baldwin DO Primary Care Provider Active Job Martinez MD Attending Provider Active Goals (unrecognized section and content) Goals may be documented in a n alternate section INFORMATION SOURCE (unrecogn ized section and content) DATE CREATED AUTHOR 04/14/2022 [facility] DATE CREATED AUTHOR AUTHOR'S ORGANIZ ATION 03/15/2023 [facility] DATE CREATED AUTHOR AUTHOR'S ORGANIZ ATION 03/19/2023 [facility] DATE CREATED AUTHOR AUTHOR'S ORGANIZ ATION 04/03/2023 [facility] DATE CREATED AUTHOR AUTHOR'S ORGANIZ ATION 04/07/2023 [facility] FOR RECORDS PERTAINING TO PATIENTS WHO ARE OR HAVE BEEN ENROLLED IN A CHEMICAL DEPENDENCY/SUBSTANCEABUSE PROGRAM, SOME INFORMATION MAY BE OMITTED. This clinical summary was aggregated from multiple sources. Caution should be exercised in using it in the provision of clinical care. This summary normalizes information from multiple sources, and as a consequence, information in this document may materially change the coding, format and clinical context of patient data. In addition, data may be omitted in some cases. CLINICAL DECISIONS SHOULD BE BASED ON THE PRIMARY CLINICAL RECORDS. [facility] [employer] [facility]. provides no warranty or guarantee of the accuracy or completeness of information in this document.
== END 2023-04-08 10:14 | disposition home or self-care (01) ==
LOC: VC 10:13
PROVIDERS: PCP Radiology Diagnostic Radiology; Visit Provider Radiology Diagnostic Radiology
DX: I83.813 Varicose veins of bilateral lower extremities with pain (principal)
CPT/HCPCS: 36478

== ENCOUNTER 2023-04-15 09:51 | Outpatient (OUT) | payer OTHER, SELFPAY ==
--- NOTE | 2023-04-15 09:52 | VEIN_ITS ---
Patient Name: MICHAEL RAMON MR#: [id number] : 1985 Exam Date: 04/15/2023 Ordering Doctor: DR WEN MCCABE M.D. RADIOLOGY REPORT PROCEDURE: FACILITY EST LMTD VEIN CENTER - OFFICE VISIT FOLLOW UP COMPARISON: None. PROGRESS NOTES: The patient reports improvement in leg symptoms. There has been interval reduction in varicosities. The patient has followed our recommendations to walk 20-30 minutes once or twice per day since the procedure. Physical exam demonstrates decrease in varicosities of the leg. Persistent varicosities are identified along the legs bilaterally. Review of the ultrasound performed the same day demonstrates occlusive thrombus extending throughout the treated vein(s), see separate report, consistent with a successful ablation. No thrombus extending into or beyond the saphenofemoral junction. The patient expressed a desire to proceed with treatment of remaining incompetent veins. The patient was informed that treatment was a process and would require several procedures/sessions. VEIN/ Facility EST LMTD IMPRESSION: 1. Successful ablation of the right great saphenous vein(s). 2. Persistent varicose veins and lower extremity symptoms. PLAN: Endovenous laser ablation of left great saphenous vein. Nurse notes, history and physical were reviewed and confirmed, see attached forms. The nurse was present throughout the physical exam and consultation Dictated by: Bassem Pelaez M.D. on 04/15/2023 at 11:00 Approved by: Bassem Pelaez M.D. on 04/15/2023 at 11:01
--- NOTE | 2023-04-15 09:52 | VEIN_ITS ---
Patient Name: MICHAEL RAMON MR#: [id number] : 1985 Exam Date: 04/15/2023 Ordering Doctor: DR WEN MCCABE M.D. RADIOLOGY REPORT PROCEDURE: VC EXT VENOUS RT LMTD COMPARISON: None. INDICATIONS: Phlebitis of superficial vein of rt lower extremity I80.01 TECHNIQUE: Lower extremity carlson scale and Duplex Doppler evaluation of the deep venous system from the inguinal ligament through the calf veins. FINDINGS: REGION: Right lower extremity. THROMBI: Negative for DVT. Heat induced thrombus visualized 3.0 cm from the SFJ. The heat induced thrombus extends from groin to distal calf. COMPRESSIBILITY: Non-compressible segments corresponding to thrombus FLOW: Areas of no flow corresponding to thrombus OTHER: CONCLUSION: 1. Successful post ablation occlusion of right great saphenous vein. Dictated by: Bassem Pelaez M.D. on 04/15/2023 at 11:00 Approved by: Bassem Pelaez M.D. on 04/15/2023 at 11:00
--- OUTSIDE RECORDS SUMMARY | 2023-04-15 09:55 | XMS_ITS | CCD ---
Author Name Unknown Address [address] [place] [address] Organization [facility] Care Team Providers Care District Sales Coordinator Name Role Phone Wen Pollack Unavailable MD Wen Pollack Attending Provider [phone] DO Thu Baldwin Primary Care Provider LOR [...] Consulting Unavailable ADRYAN CARLSON Consulting Unavailable BRAYDON Geri, KEILY ALMENDAREZ Consulting Unavailable KEILY PAYNE Consulting Unavailable LOR CHEEK Attending Unavailable LOR CHEEK Consulting Unavailable SRINIVASC, DR GARCIA Primary Care Unavailable LOR CHEEK Admitting Unavailable AGADRYAN GATES Consulting Unavailable HERIBERTO, DR MALATHI Larson Consulting Unavailable REQUEST, NONE LISTED Primary Care Unavaila SARA Cramer Attending Unavailable SARA MESA Admitting Unavailable SARA MESA Consulting Unavailable LOR CHEEK Attending Unavailable MISC, DR GARCIA Primary Care Unavailable ELIOT, DR WEN Bassett Consulting Unavailable LOR CHEEK Admitting Unavailable LOR CHEEK Consulting Unavailable Asaad, Imad Unavailable Shelley Mc Unavailable DO Nicolasa Thu Jennifer Primary Care Provider [phone] MD Job Martinez Attending Provider [phone] MD Wen Pollack Attending Provider DO Shelley Mc Primary Care Provider RIO STERLING Attending Unavailable YSABEL MULLER Attending Unavailable YSABEL MULLER Referring Unavailable RIO STERLING Attending Unavailable NICOLASA, THU G Attending Unavailable Nicolasa, Thu Primary Care Unavailable Longoria, Ulices Attending Unavailable Longoria, Ulices Admitting Unavailable Nicolasa, Thu Primary Care Unavailable SAM HERBERT F Attending Unavailable PIEDAD SAM F Admitting Unavailable Nicolasa, Thu Primary Care Unavailable KINDEtelvina SAM F Attending Unavailable KINDEtelvina SAM F Admitting Unavailable BellMati L Attending Unavailable Nicolasa, Thu Primary Care Unavailable Bell, Mati L Admitting Unavailable Bell Mati L Attending Unavailable Nicolasa, Thu Primary Care Unavailable Bell, Mati L Admitting Unavailable Nicolasa, Thu Primary Care Unavailable Bia Goldman Admitting Unavailable Bia Goldman Attending Unavailable Ray Mati L Attending Unavailable Nicolasa, Thu Primary Care Unavailable Bell, Mati L Admitting Unavailable Nicolasa, Thu Primary Care Unavailable Sara Mesa Attending Unavailable Sara Mesa Admitting Unavailable Mc, Shelley Primary Care Unavailable SAM HERBERT Attending Unavailable PIEDAD SAM F Admitting Unavailable Bell, Mati L Attending Unavailable Nicolasa, Thu Primary Care Unavailable Bell, Mati L Admitting Unavailable Bell, Mati L Referring Unavailable Nicolasa, Thu Primary Care Unavailable Lor Cheek Attending Unavailable Lor Cheek Admitting Unavailable Longoria, Ulices Admitting Unavailable Nicolasa, Thu Primary Care Unavailable Longoria, Ulices Attending Unavailable Nicolasa, Thu Primary Care Unavailable Igor MACHUCA, Lorenzo Connors Attending Lorenzo Shah DPM Admitting Unavai lable Nicolasa, Thu Primary Care Unavailable Keily Duvall Attending Unavailable Keily Duvall Admitting Unavailable Bell, Mati L Attending Unavailable Nicolasa, Thu Primary Care Unavailable Mati Bell Admitting Unavailable Nicolasa, Thu Primary Care Unavailable AbingdonBia zee Admitting Unavailable AbingdonBia zee Attending Unavailable Nicolasa, Thu Primary Care Unavailable AbingdonBia zee M Admitting Unavailable AbingdonBia zee Attending Unavailable Mati Bell Attending Unavailable Nicolasa, Thu Primary Care Unavailable BellEfrainMati L Admitting Unavailable Nicolasa, Thu Primary Care Unavailable Mati Bell Attending Unavailable BellMati Admitting Unavailable Nicolasa, Thu Primary Care Unavailable AbingdonBia zee Admitting Unavailable AbingdonBia zee Attending Unavailable Piedad MARTINEZ, Sam Funes Attending Kodi Goldman POWER PLANT ELECTRICIAN[employer]SEWER PIPE LAYER, Bia Kitchen Attending U sonia Herbert MD, Sam Funes Attending Kodi Herbert MD, Sam Funes Attending Kodi Goldman POWER PLANT ELECTRICIAN-SEWER PIPE LAYER, Bia Kitchen Attending U sonia Asaad, Imsonal Attending Unavailable Asaad, Imad Admitting Unavailable Shelley Mc Primary Care Unavailable Shelley Mc Primary Care Unavailable Wen Pollack Attending Unavailable Wen Pollack Admitting Unavailable Asaad, Imad Attending Unavailable Asaad, Imad Admitting Unavailable Raghav Baldwinee G Primary Care Unavailable Medications Current Medications Medication Drug Class(es) Dates Sig (Normalized) Sig (Original) baclofen 10 mg oral tablet (9 sources) gamma-Aminobutyri c Acid-ergic Agonist Start: 03-11-2023 take 10 mg by mouth twice daily Baclofen Active 10 MG PO Twice daily March 11, 2023 12:00am take 1 tablet by merry th every twenty-four hours Baclofen 10 MG 1 tablet Orally once a da y Active Baclofen 10 MG/2 0ML as directed Intrathecal Active 24 hr buPROPion hydrochloride 300 mg extended release oral tablet (9 sources) Aminoketone Start: 03-11-2023 take 300 mg [...] sodium 50 mg delayed release oral tablet (9 sources) Nonsteroidal Anti-inflammatory Drug Start: 03-11-2023 take [...] Orally Once a day Active Gas Relief (5 sources) Gas Relief Activ e Laxative 25 MG (5 sources) take 1 tablet by mouth once daily at bedtime as needed Laxative 25 MG 1 tablet at bedtime as needed Orally Once a day Active Loratadine (11 sources) Claritin PRN Act caleb Claritin Active magnesium citrate 100 mg oral tablet (5 sources) Magnesium Citrat e 100 MG as directed Orally Active melatonin 1 mg oral tablet (12 sources) Start: 03-11-2023 take 1 mg by mouth at bedtime Melatonin Active 1 MG PO Bedtime March 11, 2023 12:00am Melatonin Active metFORMIN hydrochloride 500 mg oral tablet (9 sources) Biguanide Start: 03-11-2023 take 500 mg by mouth once daily Metformin Active 500 MG PO Daily March 11, 2023 12:00am mounjaro 5 mg/0.5ml solution pen-injector (3 sources) inject 5 mg by subcutaneous injection every week Mounjaro 5 MG/0.5ML 5 mg Subcutaneous once a week Active mounjaro 7.5 mg/0.5ml solution pen-injector (2 sources) inject 7.5 mg by subcutaneous injection every week Mounjaro 7.5 MG/0.5ML 7.5 mg Subcutaneous weekly for 30 days Active omeprazole 20 mg delayed release oral capsule (2 sources) Proton Pump Inhibitor Start: 03-18-2023 take 1 [...] day Active pregabalin 50 mg oral capsule (9 sources) Start: 03-11-2023 take 1 capsule by mouth once daily Pregabalin (Lyrica) 50 mg Capsule Active 50 MG PO Daily March 11, 2023 12:00am Super Enzymes - (5 sources) Super Enzymes - as directed Orally Active Tirzepatide (1 source) Start: 03-11-2023 Tirzepatide (Mounjaro) 7.5 mg/0.5 mL Pen Injector Active 7.5 MG SUBCUT every week March 11, 2023 12:00am Problems Active Problems Problem Classification Problem Date Documented Date Episodic/Chronic Acquired foot deformities (1 source) Hallux rigidus, right foot; Translations: [HALLUX RIGIDUS RIGHT FOOT] Onset: 06-13-2021 Chronic Acute and chronic tonsillitis (12 sources) Enlarged tonsil; Translations: [Hypertrophy of tonsils] Onset: 12-06-2020 Resolved: 12-06-2020 Chronic Anxiety disorders (13 sources) Mixed anxiety and depressive disorder; Translations: [Other specified anxiety disorders] Onset: 12-06-2020 Resolved: 12-06-2020 Chronic Diabetes mellitus without complication (6 sources) Type 2 diabetes mellitus; Translations: [Type 2 diabetes mellitus without complications] Chronic Esophageal disorders (3 sources) Gastroesophageal reflux disease; Translations: [Gastro-esophageal reflux disease without esophagitis] Chronic Headache; including migraine (1 source) Migraine, unspecified, not intractable, without status migrainosus; Translations: [MIGRAINE UNS NOT INTRACT W/O SM] Onset: 11-14-2021 Chronic Hepatitis (10 sources) Nonalcoholic steatohepatitis; Translations: [Nonalcoholic steatohepatitis (HAMMOND)] Chronic Menstrual disorders (3 sources) Irregular periods; Translations: [Irregular menstruation, unspecified] Chronic Mood disorders (7 sources) Major depressive disorder, single episode, unspecified; Translations: [Major depression in full remission] Onset: 11-14-2021 Chronic Other liver diseases (8 sources) Steatosis of liver; Translations: [Fatty (change of) liver, not elsewhere classified] Chronic Other liver diseases (2 sources) Fatty (change of) liver, not elsewhere classified Chronic Other liver diseases (2 sources) Abnormal levels of other serum enzymes; Translations: [Abnormal levels of other serum enzymes] Onset: 03-11-2023 Episodic Other nutritional; endocrine; and metabolic disorders (11 sources) Morbid obesity; Translations: [Body mass index [...] Chronic Other nutritional; endocrine; and metabolic disorders (9 sources) Body mass index 40+ - severely obese; Translations: [Body mass index (BMI) 70 or greater, adult] Chronic Other nutritional; endocrine; and metabolic disorders (1 source) Body mass index (BMI) 70 or greater, adult Chronic Residual codes; unclassified (11 sources) Sleep apnea; Translations: [Sleep apnea, unspecified] Chronic Residual codes; unclassified (20 sources) Obstructive sleep apnea syndrome; Translations: [Obstructive sleep apnea (adult) (pediatric)] Chronic Residual codes; unclassified (6 sources) Obstructive sleep apnea (adult) (pediatric); Translations: [Obstructive sleep apnea (adult) (pediatric) G47.33] Onset: 12-06-2020 Resolved: 02-07-2021 Chronic Residual codes; unclassified (9 sources) Insomnia; Translations: [Other insomnia] Chronic Residual codes; unclassified (2 sources) Other insomnia Chronic Residual codes; unclassified (2 sources) Continuous positive airway pressure ventilation treatment; Translations: [Dependence on other enabling machines and devices] Chronic Residual codes; unclassified (1 source) Obstructive sleep apnea (adult)(pediatric); Translations: [Obstructive sleep apnea (adult) (pediatric)] Onset: 02-19-2023 Chronic Spondylosis; intervertebral disc disorders; other back [...] Onset: 10-02-2021 Episodic Other aftercare (1 source) extermination inspector (current) use of aspirin; Translations: [FACTORY HAND CURRENT USE OF ASPIRIN] Onset: 11-14-2021 Episodic Other aftercare (1 source) Other fpc (current) drug therapy; Translations: [OTH CORRECTION CURRENT DRUG THERAPY] Onset: 11-14-2021 Episodic Other aftercare (1 source) longterm (current) use of oral hypoglycemic drugs; Translations: [CORRECTION USE ORAL HYPOGLYCEMIC DX] Onset: 11-14-2021 Episodic [...] Coding Summaryon 04-07-2023 Coding Summary HTMLBase 64 MxmgbqzvUYh1rPl+PGhlYWQ+PE1 KSLTtF66uwRAlxH2fB9UNGVaROf kuLFSLDBlSFgYvihTeXP5rkQAzM XJu IC8+ND8bHJIsVqneoFRhw6N8vAY 0F35gdr6hUPbesEF7GEZdAoJune wxk1ixySt1WQymKlgdUqCb SLMcgC75VRP3dV35Az82vDLhiWS ci7shjFg7QcOrQGAnOGL7wOryLB ixz6GgMKJqQ56alYIzm1R7 AOWnkTtioUYyBzMlzHJ2kZ1pWBf ltdoij8rbuboxEkf0ze06lWVly7 Z2pLA1N3EedxQ1ETFjzFEf GonwySQCsK5pqeznk0pejwkbKkK pMHCvAZh1MAl5IAQuqBhdSeJeBH 14BIA4MZVdoqMaM6QcGYKt hEmaFjE3v3A4Ew3RE4FABrejF0O NTUFSWTwvdGQ+CL62dw91T2BoBq iaFyg5MEGyBOO3xEO3iJ2l LHBbLFiyc1E7dPW6A5BglkMxqg0 cq0vrFYJhAFreK79qgDWxc2D0AI AfgAG6ULUmgIdbRkRfhZ83 Oyc+RDEpwGbsu0XpXayge0dyx8h imVf1PquhLJRallKrcIulJWY7g4 HdCs6aYQIckQL2mFD7fA7f HzOdPzF8VStmE758KmFqsHYaEmd sZ49qJ0RcbOV+ZVWrLzq6NCMnsW ewXC2mJ2WqHQRvnulhvBCm aFujJI1oLSRuvsbtYRUrjS1xQJW aH3p9HpXpYrN2JZinB8CfFXTxhb fwEa39qL0gPaKeYbT7YFzz M2AkuqQ3CLTieMQxWSybFNR7C88 qg8X4NPWpCCFwGDS0mXF3vQ7shC lnbjogbGVmdDsgdmVydGlj BZdnGMwwW207ZISzcDmvHzEmIAr uZyBEYXRlOiAgMDEvMjkvMjAyND wvdGQ+DSIaGSL9yFcwMDNm jXBvEJaeKh0ofBprtIrpCF3cATE cvwkeWKHcmC1wZVBytIDfgZuxDJ 5sLTCnpohvq504KeVmYHT2 SBXttKUkJ7KsiP7wSgViTGVxKIO qK1WdxTLcQFuzU288JZorRuP1KY MklfZnT8WuUBZxkRycYcR9 f4S6Bp5Nt1QdporbL6JsdAAlFaI cFbgxPJz3M1UiQvfxuWC+PC90YW NiSY80JZo2TME4yBqkMOim JLLtA8LlbJ3eEvEtEGRfUMPpAyc +PHRhYmxlIHdpZHRoPScxMDAlJy AutTksCC7cVn8pPFDjSJXf mScumZWfDvAkx1asXVVnKVqyFZ2 omAugT1DwrSC9NFJzw6n1Sj38H8 1uO0FzqCN+EDKcfCQ4qLD6 pB7pVlOvUfQ4OAfpD485ViHpyRN nEpsvf3ixk1sddSp4KyF1PYBelg KmmNueIOO9e2YpSw65Y35b IHdpZHRoPSIxNSUiIHZhbGlnbj0 mfR9pAr5+RZMupJA3aSR5hI9pEy LbGtM6PKylI302PfXkyQUx Pmpva0wpo6gguTi4BrDnQNBomvG kyOvdESF7o4LkDf57U3FksJyln2 DdRuu7go50qMPhn0P1kWV7 C2XlLFBnobgtdOOppOcrVW0gVXJ cgowpGOUlrD3cPYCqK0m7RaHrIe C1WNkgA6JbybZ0BFUzhUBv MBTjvVVBiH3bjbrav1sjwsuuJaW kNRYcSOd9RIo7RFYtoJchMyPjEX B5XdH8BAM3iGDovM4fnMzd snsozQ2lRwz+MYS6iXOumLQKMQ8 lOjwvdGQ+WZUeHYN6mRzbDSkwJC UbmI4kFKYmV2a3JtTxQkK8 ONhuH7OhszL4UFFjxWEpXDZauLY ZkD9ifjlcb5pxsrzwQvTpTBLuUE k0DEv5ADBtbAzgDfNaIQF6 XbQ8BUE4gYTfxJ1phLzjxjwdlZ5 wOyc+XeyvpLivYAE6QTn0G7LmQz i2PNBjfFdfRQ3liTCfSZpp Ka5wuRmcvXfaIL7wJGDesnndn35 6AxOrp3yqYWAudMGdQFmwDYZ7T9 6eh7X9GZFdRNFiYBF8zLG8 cU9dvFzhqgmquEYxgOfrjhHizEo yECteUWlbM037BYJisQfoZoOzCM g2R0ZqZro4XONuiPhdEP4z nNRlBCwyTb2vzYoelApwUA5sTEO zjlzvj751MhIfn4uyHZOkyKQyVQ xmCUY7K94bx0O0DHPlYJHa ZFJ1aMA4vX7lwHrdbfkqjVLhvFe eosXhtPtgPSdwBPfiS040MWKnrP lrOaPwiUo4W1RgVxl5RQGg hDmqUY2aiVEsTAxsRn9zeUwzpSq xDI6iBWCwihifx359ItUjg2abWF EncRVfSUzoVDC0V29mu6S2 PXVtBRVdXVD3cWP1gZ6wmVmdoqh gbGVmdDsgdmVydGljYWwtYWxpZ2 46IHRvcDsnPlBhdGllbnQg IKjcRIy7P2EdJprgqXT+GZ23WBY gZG74rPAalEIin3sdtMk5CnVhXM YgIIY2dAtdHQtzq3UcKUPh Z10avCZgc3T5CXIreDbapBXgDiT hmHO1kG3rHPpkdpipe9lzgfdeZe zyj5zlqb70mO31B63kGFbq UZTdVFMbNIDfNWZjbTtsqw3rjI0 wIi8+OMAzpZR0uTE9nF5kDXWpZp H3ZDjmY380YcRatNDyTjjm j8sfm6jcgNw8HvE4HDScwsKjiQo tUWI0b1KuKn81W38wKUcyNNEzGD XfAQKrPCPgjYetom2qqH4r Ii8+ORIpoLH1vIX3dF9bCoTlIiN 9JPnqX197RdCzcJKdHhxxD29yS2 JvdXA+SNAqNdu1HXUscSrm KV2qvFFkGRkcMq0oWEK2EyKlUyE cDOozA9SaCOEqegqpfmmadYZ2GS QgOEDiiW14Ku6pmHgbWFTb xASEtN0ssujsb7qltmrqVsNpMPJ fKXe7RFi6QRLslCxzLnHhRUO5Is P5HUN8cIFdyS5tgOvmhubb cG8iI7PgUPWrjtqlAl09kS1fKrL eQkU6DJvqOne+TVVMTEVOUywgUk UNEFCVXVYRWVrKMgK1C2Ep Cmi3DLIfqZnmTF5nwQDlVTftWy3 wqXbvrNbtVX9pPFGrmrwnADVqxW 9rENCkmZWhgSmxBR4yERLb cvmbu677OaHxSIY9MUPnfQItU3J hjD5jGeCmLMUaPHUjJ4QdqOUkVH tgE964EBnqPxN5IYSuppJn S9QeEHGurNenKlM3m0U4Cw6aLY9 mZp4nFFh3BH68SN17iJZrg7C7uM R0S6OqEGXjqqllaptceCW3 OUXcBXSoeE82lJMzGRbiPu3uv6L 8n834SXOcIZCenB57Ao1zaUpyFK QhoFJEjA6bvrtfx3xquhrp BpGfMNXwOGv8UMk2IVMrfCrrVzU yQSS0EnC1MCV9dYQubW9wwKcfsq miqX7pSyy+MzggWWVhcnM8 P0GcAwp8ZNSrnZunDN1hcFShFCn nLj1ajWaevHoaSI1rDWGajzzlMP LrdU3vVTZiwNXcrKvtZN4s CYEehafur934JqCdEHI3YWBddEC qQ2BuyE9uRdLcGQJmOHPlH1UaxM BtQXnnC865KVodLhV6ANYe sdRnY9KjBRXzbAhbIxJ3y8T3Js0 VGM5NVPK6R1VkHwt5RWVyyBxuGB 9fcZJkVQbpNp2xpAwheTws ZI1eWTHawdenKGKssG5lOGKviEZ cwNdbYJ6vTTHnmrjhb502XmNjYY Z5IKZuePTlJ0PiqG9nZeSc GPYfOEHnB0ShfCDkYHldJ600CKr lNvL1QDGhnfOwA9DmOSNkzRzrHn Y9g5S4Mk8QTFtdH4ImE6Fb eTwvdGQ+SG43no20S9VoBrfbVhk 3PSKbZQM3vGW4bX0sJTWtULsbh3 C1zOA1M1RzqnCnem6gv8ss XKPePBoqS89mjRJra3F9NRVhpDK 7RSMaiPwoTiYawK10Lis+PGNvbG wvq8MlCdflp3btx0jqzMi4 WlJnRAIfpbWogSuvLLL3c0NfFf8 6P06gHSawXHUlPUCjTLInVYXnnH yefq2ozS7eDx0+PGNvbCB3 vOU9gR3pAkEcFvX0DJdzU859PsW dfMMtAkdqw1vwh4oggBs0ShWiVF WcohGbvIvxMLN9d8TrGo15 J5DeqHyev6JsLty2bh13oPCio3L 3uBL6O7RgXQRcixkdiNYzaRliNZ 2uOGFfsiyoSTDanK9kXANe M7l3XrJmRuM9IIyvP1JekfG4KDG mgACdFADyfCWEoZ7shyxxp3unxt bbMqFyMDMsEDt1GOa8CQSr cUmnClBlXDD4ZoF1OHB2xNWjhT5 mkLcutiujeZ6oVuv+TDj9v1otnR LmLS6afAJ6JM37VM91yBEd i2E4iTS2K3LgECZblizcwjbmeQH 7SYScUIAkzA39Hm4npBylCw1gOW WwBLE0NZInmGOfS0ZelP6j FbGdVMRpAFStZ2PntMJwACztI21 7TTprGhN5ZSOjhhRwB7DpEGRfmP crYyO8w1Q2Vs3DMC14FZ26 XW93zLZdk9W1eOR9G9WmESLrevc rmqjdtTO1IEAbUPDjxZ98Gn5iwN alYn6eZDJbXWE0USUyoWOc W4FskG5zBkVuVDHuHKKuU0QiiTZ qEBxsE198CZqpObB9JKDxnyYyI8 ZhWSKrgDytQiI1l9K2Sv8J Np99EI19DW68uDRev0A8pIT6U2C zFPFfqibnubqhzJR3HMQoJLYzzE 02Td0hgRqrQa0gJEPkYGA5 VATliVNkE1BquX7vNiNcLUFvIZZ mZ6ZpiWPlASlwZ941OEsrRjX4YN ZckxDzR8AvJEDdiSpzTeO4 g8U6Gv7DFRlefii7D1GwFjkeiOH +VG13KFXeIA07aAWbwEKpy6waiW y5ZbAoOIFkVGU4wZrzFJki b3J (more content not included)... [facility] Consent Formson 04-07-2023 Consent Forms [id number]#[id number] [facility] Inpatient Patient Summaryon 04-04-2023 [place]patient [place] [address] Patient Discharge Instructions Name: MICHAEL RAMON : 1985 Patient Address: [address] [place] [address] Primary Care Provider: Name: Shelley Mc DO After you are discharged if you find you have any questions, please, call [phone] ext [phone] to speak to a nurse. Discharge Diagnosis: Prescription Information: If you have been given a prescription for narcotics, seek immediate medical attention if you have any difficulty breathing or any sudden status changes such as confusion and sleepiness. If you or anyone you know is experiencing suicidal thoughts, mental health, alcohol and/or drug addiction problems; contact the [facility] 30/09 Crisis Hotline -Text 4HOPE to 274589. If you received any narcotics, sedation, or [...] business decisions or sign any legal documents [facility] would like to thank you for allowing us to assist you with your healthcare needs. The following includes patient education materials and information regarding your injury/illness. TRISTEN MICHAEL SHAQ has been given the following list of [...] Sore Th (more content not included)... [facility]-04-[facility]23 MAGR Intraoperative Record MAGR Intra-Op Record Summary Primary Physician: SAM HERBERT MD Finalized Date/Time: 04/04/23 11:11:31 Pt. Name: MICHAEL RAMON/Sex: 1985 FEMALE Med Rec #: [id number] Physician: SAM HERBERT MD Financial #: [id number] Pt. Type: D Room/Bed: / Admit/Disch: 04/04/23 [...] Sherry L RT (R) ARRT Role Performed Inspector Metal Fabricating Relief Inspector Metal Fabricating Sausage Stringer Time In 04/04/23 11:04:00 04/04/23 11:04:00 04/04/23 11:04:00 Time Out 04/04/23 11:12:04/04/23 11:12:04/04/23 11:12:00 Procedure SI Joint SI Joint SI Joint Injection(Bilateral) Injection(Bilateral) Injection(Bilateral) Last Modified By: Ami Baker RN, Barbara RN Long, Barbara RN 04/04/23 11:11:04/04/23 11:11:04/04/23 11:11:26 Entry 4 Entry 5 Entry 6 Case Attendee Georgette Thorne Brittany E CSFA KINDL, THOMAS F MD LAWN MOWER REPAIRER Role Performed Sausage Stringer Scrub Personnel Surgeon - Primary Time In 04/04/23 11:04:00 04/04/23 11:04:04/04/23 11:04:00 Time Out 04/04/23 11:12:04/04/23 11:12:04/04/23 11:12:00 Procedure SI Joint SI Joint SI Joint Injection(Bilateral) Injection(Bilateral) Injection(Bilateral) Last Modified By: Ami Baker RN, Barbara RN Long, Barbara RN 04/04/23 11:11:04/04/23 11:11:04/04/23 11:11:26 Entry 7 Case Attendee Nestor Hoyt LAWN MOWER REPAIRER Role Performed Scrub Personnel Time In 04/04/23 [...] Larissa Matos RN, Rosy Jaime RT (R) ARRT, Georgette Thorne Adkins, Brittany E CSFA LAWN MOWER REPAIRER, SAM HERBERT MD Last Modified By: Ami Baker RN 04/04/23 11:06:40 Patient Positioning MAGR (more content not included)... [facility] MAGR Preoperative Recordon 0 04-04-2023 MAGR Preoperative Record MAGR Pre-Op Record Summary Primary Physician: SAM HERBERT MD Finalized Date/Time: 04/04/23 11:08:51 Pt. Name: MICHAEL RAMON SHAQ /Sex: 1985 FEMALE Med Rec #: [id number] Physician: SAM HERBERT MD Financial #: [id number] Pt. Type: D Room/Bed: / Admit/Disch: 04/04/23 [...] Signed By: Ami Baker RN 04/04/23 11:08 [facility] POCT Glucose Levelon 024 Glucose [Mass/Vol] 78 mg/dL Normal 74-118 [facility] Comment on above: Performed By: #### 4 [id number] ####[facility] (DEFAULT)[address] [place] [address] Patient Handouton 04-04-2023 Patient Handout [facility] Progress Note - Provideron 0 03-27-2023 Progress Note - Provider [email or web address] - Nurseon 03-10 Progress Note - Nurse Pt called for refi ll on Lyrica into [facility] Simon reviewed and OK, pt compliant with OV, sent to Dr Herbert for approval [Electronically Signed on: 03/25/2023 11:52 EST] Josefa Schuster LPN [Verified on: 03/25/2023 11:52 EST] Josefa Schuster LPN [facility] Physical Therapy Noteon 03-10 Physical Therapy Note [id number] - Nurseon Progress Note - Nurse Patient called and left voicemail requesting refill of Baclofen be sent to [facility]. Patient compliant. Prescription sent to pharmacy. [Electronically Signed on: 03/18/2023 09:30 EST] Giuliana Travis RN [Verified on: 03/18/2023 09:30 EST] [facility]ily [facility]ite [facility] Coding Summaryon 03-17-2023 Coding Summary HTMLBase 64 GolzglfsABp9hFq+PGhlYWQ+PE1 LRHAlG91zhOQgvR5aC7DFYFiZNl asJWXYPInPMoEojoCgTC5dfNAxU XJu IC8+LY7pWJYkRjgomBKnr4E2oSK 2T53ice0fFTdglYT7ZTXtRuUexn nga2wtiKc6CHipZoyaVgFg PKVlhB41DBB3rC85Vs08kJHxkSI cl5kytPe4BaGhOHSyCZS5fBafOL fby2ReMIUgM69zdHObc2R3 NBJxiClgaDSvXiMbcSC8sS2jXFk lvthiu4uqjyuqLhn6uo81fLJgr3 H1tAY3T6SxirR2OBIauMFc EzhvaYBRmP8plgpxy0xwponaKrQ yLJMrDEe6YDn1ERJtdUtrJkJyGV 08DSR7ITNodjQsC8BsZQJd fHuvJsG7o0K4Yb2MD4KLLkrbU6F NTUFSWTwvdGQ+MD90dm82V6PtIu smGvb5IVZkMBO1oAW6cJ1m LHCmOFapl2C9lUF8W9XqswKuwj7 gy3xcRQCgOUyaX30vnGQxj3L7QT KtnOE8KIVzwUcqVsLfrN57 Oyc+EFVxfLlxe0VoIfzri1utg1k xdCn5EutqVZOftgWmnBvyVEI5t9 SgOf4qXYXenXG3fSY9nB0v VdMsJjE0QLilI767PeCjiSQbIgo xT65nQ3JrsPK+FVZrTcd9JCBloF jbYX4xN5DcOSFcqwysiYQa mHjyYY1gOPZfhcjwPBTaaG2oAPD xM9x6TfVeTbF5QIhlY1CjJEQrkj rwOu99qG0wZuLlIsT9HQan O7UbgrV3CZPdbZOaBIpuVXD2V47 wh3C9QXRzUNFiLBX5eCZ1gH5pbY lnbjogbGVmdDsgdmVydGlj FIiqVJrkI228ESZxfJhkItXaJIx uZyBEYXRlOiAgMDEvMDgvMjAyND wvdGQ+BQPvZVG2tNucHFAb xVHcRLvcWb7bcJnlsOkuCE0pQPB nupmfCFBqtO0qRAVesWGqfBflFO 2qABHzchzcc916DsCkMDX9 AAVifTChC8PwkO6jMwLuYVQfUDK uX8ZkqDBtYEvtX911JRowAfG5NG RdmwXlZ7OsOTCcjIhkTeT3 w4M7Rv4Wn6MnfuddF2GobSKkFgH iPmcsRBl4R9UaRyyaiZS+PC90YW NnSY92RNe9FSL9kMwtAGzw BPKwK2PqwF4fRxNaNYFrCEOeLmv +PHRhYmxlIHdpZHRoPScxMDAlJy ZryXfsVN7kZa4gJJYhGMUu mKexbXBbQgPkr6dkLKCnKDkkTF9 knNrcO6NrgCK8ZPHuc5h9Hd94T4 5qH3PusNE+WIIbtVB6mQK3 bJ0wDqCnPfQ7XJlhK784JqVpvTJ uEkxdr4ist4wjdRt2SvV4LEStpy FalRujGFI4u9VcNr56I35o IHdpZHRoPSIxNSUiIHZhbGlnbj0 gmM5jRu2+YBWjjCT3nXO8tZ1dWv RmDzF6GMinR670UdMmgLMw Kmthc7src6nipFy4JhZfRLUyuaN dnBtvOMO2b3EtJi23P6CmfCreh4 IcVha3jc64aXLqu2S6kAN9 H1SxTJArhshmyZGhzZrlXU9fHXZ qbgovMBHqoI4hMYLwZ7w9XtXrKu G7WYupI4AnlnS7MRLxpTZh HPGbwXQOoN9hvycac0ahgirhTuX yGRVvLCi5TMm7UIXaoQfwUdDkAZ B9AxJ1GXB1tWEylI2qwOue marwqS3qWpy+XVU5vBXldVUGTL1 lOjwvdGQ+JCXfEPV8oMvuQOsbUA NkiB2gAUBjS1o0DlDcRhL7 PPylJ0IuoeL7WVUiwBSlCFVauVB DxG1fuqssu2eokbvuSvNlVLSkRK x0FRb9CDSjtFccFeSvOEP5 JjO3UBN4jXLyvC0ukMzlfyhosF3 wOyc+YhgzjBsdQRW3CUk2G6VhDl k4RNAaiFnvIM2ghMMnRUoa Sf2mcRxyeMtnZV1vHCQtkslqe61 1PkIkg8uxBUYtmZJuXAzkIVH9W1 3dg4R4YOZeDTZsUKE4nBV4 hL6qfXomwzgcfMLytZcabiXjhXx zSSxsBNpyO746CJCwzBggUnXlQD h3X1JnDtj5ECYkhIsdXQ3b pDUhPZvdFl4jjSjeuUfwGT4sDNV szxcwy320WlKnw6dhAWYuuXUsWW ueTVE2C14ur0D6DWUhXDBn BNT0wWT6pW4rrWckpnwooEYbzOm reeAdrOomBXfbSBnfM672LUXvyV lbAjUokSu4C7JdAkj2XTRf lWluWL6ynRZbYEgaTk9vaSzpyCf wUJ7hWCTqxhsnb826IpTie8wuUM RstQBrCCrmJOY9G13ja0S8 TXMvINVcPUF2cJV7nZ7coRcwrto gbGVmdDsgdmVydGljYWwtYWxpZ2 46IHRvcDsnPlBhdGllbnQg KOjkBAv9T1NeDgmxvNS+VZ32RKJ eRI41bPVvsDXdf2itsPs2NeNaAB OjYFM6lDlkTIcdg5KiPYAd P35gpJGqi9X1JNWavBojwTPpGyD vkVC7cJ2tWChvpnwlt0jsljbbTi rls8ipgl85yR53N12yTRrq GHTwQLBgJFEhQZQfbMbnki9biJ6 wIi8+WGYrsDI6eQX7vU5lGXQqFh Q3RKeqU559ShMmfRZyEnvi s8gfw6uznWp6MeJ9ULFwixBwdPl sYGO4a7CxXe31Z04zHTosQKFeWI FeAVWfJKBevDptdy6ldQ6e Ii8+ZRJlvVC8bGD5hM6fWiFkBsS 5LHujE990KfJuzTGsFmiuF95gS5 JvdXA+ONYvHnw0KIYibOzy VQ9ncWCpUOqrRh5dYUR0DbCuBoL iLMrgO7NcMFKqgvmiceclpBI7ZH HdYQQcnU14Sv6yaJufZKUm zNQHzK0tfhrab0ekwvqnPzTqCFH rVEq7ZNj9TRHrbHejCaTpNWL1Jy M8LZS0wARbbH5nhWgrcfab bC2jU4MtQPPchdbwCj96wY5lOcK hTpP2HDidWln+TVVMTEVOUywgUk FVKBYBBOPVWKqEXjI2R7Xl Vyb3JDKdkSwdPC2ziHYtQOjqXn3 kwIaxaUdsLO1kUDInwipbKCAfdG 5rXPGewVYofUadEY7kKLEa vaeax152GbJnDYJ9YPRhtDQiO8I miO0pNeNsBQJxLQLlW0SilTLhJL tgB520JSzwAoM2NWWrnnAq J9CePDRzsGtaRsO5m7L5Om2eCZ5 cIk0fPPg6EP62ZO62wFJzj7L2yG M7B3NkBVVyjsbyrenxgPY0 MVJaYGAdzV25wYInWNpgJx0oz1R 9j117GZZeEJIzpR98Xu0kcGngNM LjaZELgE6hydgal1dabczz GkXpFEDjWZf9KEh0BAGvuIdlGaU xYNK1KsV0IFV8nHFwoX4mfKxbvw zvkR1nMyd+MzcgWWVhcnM8 L2PbYcq9BXAtxFycRS1nzROjSGz dRj8syXtliHsfKL3cEDSxjanhYS RasI7lYBBkqQEgiAvgXN3v BJWplceeq830BwFwAJG7ADVjrYZ pD8WqwQ2fQbCdCYLhFPLjM8TzhP MrQDzjD212KCycXnC7FJXr byOnW7IcSHOxgCdaBsX6c8V5Xi6 APK8OJUG9P5ViQqh3BTXwaBprKG 5xpSDjVZhaRy8cnZgpiJov PN7pIGLxsheyZHEgbO3pTPEqlZC llLcbMK5fYVEpagffi475KcCePH C4BPWbwWQmC3GfnD4gBzLl SWZvXGOeY3SylSMwTVwyF241JIg tLbD0XQKkhfRbC2LmZACzsAtiXn D6z3U5Hq7ZRWsckJE+PC90 cq40Z3LvWrbtNuj5UODiHAL9iSH 8gH7qADTzYLrah4Q2xKS1P2Qpii Ihmh5we0rzRJTwLOfqP05g nXScc6X3PUTigAU6LVEpaEhkGgN nuS00Npt+BOQysDqmi6WfPqfyt5 eua7illZp9OwMbRJDqydCc hJlrUVA3f1BtRr11P79tVMoqKOR bACZqAIGlWMTboTjmes0paF4iWo 8+DYYvnMH2oNH1yI0mAuYx TbX5NOwaQ039TrFijKZwTnliv5j lx5bsjQn4NdThCKNdwbEziEwgTN X7a6PuAl52J9LwuStux7Ow Zhj9xg03kYQta7C8kBP1F1NcVYS wvcblxJHetKcsYY4oRLHhwysnSX ZhwI6dYCDdQ3p8BlOcPhN4 TUylT7DxxjO0NEBbkRMtPBEszVC RcR6ikmmxt1bijijgBqIdOSLjMK p4BVx0MCHtpYedPlCuCJW3 AqI6IOA9bGOixD8xxBccwgwzpB2 wOyc+PCx7x9fwjWNqQT4dxWA0VX 04XW50mRKaz6F6hSU2R5Zj WJQougwowokghFJ3PSWvTIAdqY8 6Gg6jjCqxWk8iGCEcMIF0TTKwbY SsE3SryQ1dDcVgPJLpXYIj A5ZguMIdXDkkC166XUokTzR6CIJ xijRhE0ZqRIKrhOvqBfQ0l5R3Yh 1FMJ29TO91KS69mFCyo9R6 zIU1Y2PdNRWqnkjlijjieTT3NVZ kQOQisX28Wk7xxQjrZe9yZJJfNV C5VPTsbJQgA5NbdT0tOoUe HRBlMIDsD5SvfBVrAAmrT616IJl gYoL7EJTsijCyA7XrJXAxaRrmAy S6u3G2Yg8LPx91TC14NH81 fWZnj4L5hDM1I9GrKJCfbzunfob jmMX2EDXzRIAlpT39Pb3xrSjdFp 2dJMOfMRE7OOEorRRvI8Eg lZ3bIjXlENRzSWYjA1YemDKpIQi hA950LJoeYrX3QILrloLaN6GhYR ThaYvtPxP3u5Z5Wd3XSGwo iek8H3PpSbqhhMX+HL12UUMnDM2 7kOEuqGBsc7ovpLc4OgTxBDLiZF P7sAoqNRqcl1EtLBWdF85x bGF (more content not included)... Normal [facility] Activated partial thrombopla stin time (aPTT) in platelet poor plasma by coagulation aOrdered By: Imad Asaad on 03-11-2023 aPTT Coag (PPP) [Time] 37.6 s 25.1-36.5 [facility] Comment on above: A hematocrit value g reater than 55% may lead to inaccurate results in coagulation testing. Patients having hematocrit values >55% require a special collection tube for coagulation studies. Please contact the laboratory at [phone] for redraw instructions. Coagulation Profileon 2023 aPTT Coag (Bld) [Time] 37.6 s High 25.1-36.5 [facility] Comment on above: Order Comment: STAT FOR UL Result Comment: A he matocrit value greater than 55% may lead to inaccurate results in coagulation testing. Patients having hematocrit values >55% require a special collection tube for coagulation studies. Please contact the laboratory at [phone] for redraw instructions. PERFORMED BY: [place] [address] PATHOLOGIST [employer]UNDRY AGENT SINCERE GREENWOOD M.D. Performed By: #### P LT, PP #### [address] INR Coag (PPP) [Relative time] 1.1 {INR} Normal [facility] Comment on above: Order Comment: STAT FOR [...] 3 - 4.5 Performed By: #### P LT, PP #### [facility] [address] [place] [address] [place] PT Coag (PPP) [Time] 12.3 s Normal 9.0-12.9 [facility] Comment on above: Order Comment: STAT FOR UL Result Comment: A he matocrit value greater than 55% may lead to inaccurate results in coagulation testing. Patients having hematocrit values >55% require a special collection tube for coagulation studies. Please contact the laboratory at [phone] for redraw instructions. Performed By: #### P LT, PP #### [facility] [address] [place] [address] [facility] INR in Platelet poor plasma by Coagulation assayOrdered By: Job Martinez on 03-11-2023 INR Coag (PPP) [Relative time] 1.1 {INR} [facility] Comment on above: INR Therapeutic Rang e [...] [id number] Received: 03/11/23 Status: EVENS Serna Num: [id number] Spec Type: Surgical Subm Dr: Mohit Mcghee DO Tissues: A Liver - Needle Biopsy (LT LOBE LIVER) Procedures: Trichrome, Reticulum I, Iron, HE/2, Gross/Micro L5, PAS - Hemat, PAS - Diastase Age/ Patient Sex Location Account Attending Physician Michael Ramon 37/F [id number] Job Martinez MD SPEC NUM: [id number] RECD: 03/11/23 STATUS: EVENS SERNA NUM: [id number] GRACE: 03/11/23- [facility] DR: Mohit Mcghee DO ENTERED: 03/11/23 [facility] DR: Job Martinez MD SPEC TYPE: Surgical DEPT: S ORDERED: Trichrome, Reticulum I, Iron, HE/2, Gross/Micro L5, PAS - Hemat, PAS - Diastase ORDERED: Trichrome, Reticulum I, Iron, HE/2, Gross/Micro L5, PAS - Hemat, PAS - Diastase Supplemental Report Addendum 1 Entered: 03/18/23-1257 Supplemental for findings of consultation report from [facility]: -Features of steatohepatitis with bridging fibrosis, cannot rule out focal early nodule formation Addendum Signed (signature on file) Ritchie Spring, MD 03/18/23 1258 Pathological Diagnosis Left lobe [...] with Specimen: [id number] Received: 03/11/23 Status: EVENS Serna Num: [id number] Spec Type: Surgical Subm Dr: Mohit Mcghee DO Tissues: A Liver - Needle Biopsy (LT LOBE LIVER) Procedures: Trichrome, Reticulum I, Iron, HE/2, Gross/Micro L5, PAS - Hemat, PAS - Diastase Patient: Michael Ramon [id number] (Continued) Specimen: [id number] Received: 03/11/23 (Continued) Pathological Diagnosis (Continued) Signed (signature on file) Ritchie Spring MD 03/14/23 1246 Specimen: Received: 03/11/23 Status: REYNASyed Saad Num: [id number] Spec Type: Surgical Subm Dr: Mohit Mcghee DO Tissues: A Liver - Needle Biopsy (LT LOBE LIVER) Procedures: Trichrome, Reticulum I, Iron, HE/2, Gross/Micro L5, PAS - Hemat, PAS - Diastase Patient: Michael Ramon [id number] (Continued) Specimen: [id number] Received: 03/11/23-1529 (Continued) Pathological Diagnosis (Continued) occasional PMNs at [...] associated and (more content not included)... Normal [facility] Platelet Counton 03-11-2023 Platelets (Bld) [#/Vol] 284 10*3/uL Normal 150-450 [facility] Comment on above: Order Comment: STAT FOR UL Result Comment: PERF ORMED BY: [place] [address] PATHOLOGIST LAUNDRY AGENT SINCERE GREENWOOD M.D. Performed By: #### P LT, PP #### [address] Platelets Auto (Bld) [#/Vol] Ordered By: Job Martinez on 03-11-2023 Platelets (Bld) [#/Vol] 284 10*3/uL 150-450 [facility] Prothrombin time (PT)Ordered By: Job Martinez on 03-11-2023 PT Coag (PPP) [Time] 12.3 s 9.0-12.9 [facility] Comment on above: A hematocrit value g reater than 55% may lead to inaccurate results in coagulation testing. Patients having hematocrit values >55% require a special collection tube for coagulation studies. Please contact the laboratory at [phone] for redraw instructions. US guide needle placementon 03-11-2023 US guide needle placement [facility] Main [address] [address] Ultrasound Report Signed Patient: Michael Ramon MR#: [id number] 2328 : 1985 Acct:[id number] Age/Sex: 37 / F ADM Date: 03/11/23 Loc: UL Room: Type: [facility] Attending Dr: Job Martinez MD Ordering Provider: [...] Mohit Mcghee M.D.03/11/2023 2:50 PM Dictation Location: [place] [address] Tech: Denia Goodwin Transcribed By: [facility] 03/11/23 1450 Dictated By: Mohit Mcghee DO 03/11/23 1446 Signed By: 03/11/23 1450 Normal [facility] US needle biopsyon US needle biopsy [address] [address] Ultrasound Report Signed Patient: Michael Ramon MR#: [id number] 2328 : 1985 Acct:[id number] Age/Sex: 37 / F ADM Date: 03/11/23 Loc: UL Room: Type: [facility] Attending Dr: Job Martinez MD Ordering Provider: Job Martinez MD Date of Service: 03/11/23 US/US needle biopsy: . Copies to: Job Martinez MD Post biopsy ultrasound assessment of the liver. HISTORY: No worrisome bleed. US/US needle biopsy IMPRESSION: No worrisome post biopsy bleed. Impression dictated by: Mohit Mcghee M.D.03/11/2023 3:44 PM Dictation Location: [place] [address] Tech: Denia Goodwin Transcribed By: PWS 03/11/23 154 Dictated By: Mohit Mcghee DO 03/11/23 154 Signed By: 03/11/23 1544 [facility] Coding Summaryon 03-05-2023 Coding Summary HTMLBase 64 JfwixorbGVq9xDl+PGhlYWQ+PE1 TVATbD86yuRExtO6cP7RLYQnMNi eqMSKKAHeZVnFhbcMmYB1bvDXkY XJu IC8+PA6sKZRmEofsnNYiq5A1kXB 9P19haf7bTQpfjSU4RKDkShAqme wnp9bhqKh4RHwgYjkfPkCt ZNTkzU49WWL4eY35Gc58vLWfeGU tw5ytgLd1NpQoTTGjTJD1nPmlOA eci9EeHQBgJ46exVEca7S2 LTFppIrqxOFgQdOquOE2zX9uRXz lmfsxt8nretjrBdb3qr48dTFor0 V1jOR7Z9YwbeK1LQDvfUNo FffddBYReO4yefzev8owvfdpKpT rFLJpZYl9DXw6HSLzyNqjLlHoOC 52LIF4THKjhjAeP4KaEITj dYsrJyQ1d2G2Kk9IE1YIShdqV6M NTUFSWTwvdGQ+BB99jx71Y1TdNi qhJpy6PLNmWAZ1oQV7rC3h IYMtWSnjn9G3pJD2B0MrgtPaqe4 na2ltMTIvFYqwQ74kbAZvh7E4OZ VmbII7BQYqmZfwQuVnnW57 Oyc+FHZliUhxg3OfBqsuv3cmw5q gpQy0OhfeISHyhhHdmOirVFM2p4 FoMa4kQSIipXM5bIG0oA9d EwPaPzC4XFahQ818XnIcaABrSkz eG92tO7VfxVH+CPReVmo0UDOevD ydMB6mW3YzHAUouxxxcYVu lUjnXS0oPEPhjpnwPIYxnO7xJYY rW9i5InMqRaH3IKuhI7DvBHWbde baLz59dX3tXrIbIsJ0XOni L7MwovA6UZOhpZOzHKhvMES3K21 rk8I5LCPcBMXwMSJ1pVH0xZ0mvB lnbjogbGVmdDsgdmVydGlj NOysBZmvK249DZXrbOztCiZgBNa uZyBEYXRlOiAgMTIvMjcvMjAyMz wvdGQ+HJPxLFT8iVrjRMMz wMZjRKxdLr0qgJuaiGayZY2xUXL ntfmeXZSybC0kDWXluIBlgJtfGC 0oNDBdlubwx224DjYsTUP6 DFXrnVJiM3JzpL4mMbStPXKrRLH lB0DjdYKmUBblX968ELbxGxU6YM GdekKsS9ZfIOBysIvlRsS4 v1N1Rv9Jt6UjkjfaF6CdkHWgQqJ rAvgrETf7H2YgEqnznBW+PC90YW TtDN81DOm3QDJ4hXvoBHyj QKSlH2GoyO8vUcFaZKIqSRRsIgb +PHRhYmxlIHdpZHRoPScxMDAlJy SpgBmuZW3cRz8sDHEuNQXv cFdvgANeCtBmb1ipRVTxMWfsAW4 jhMpkX7JsdLI5LWPki4n2Fr07K9 4tE7ApsRU+WLMwiLO0oPJ2 aI2uLtJfUwU1KYmaF457VePanRB wKfksw2czj2olmEm4HeW1ZJBnrw MlbVthKTU9w0MlEt00D91x IHdpZHRoPSIxNSUiIHZhbGlnbj0 lhR8oMv4+VOFrrRI7yWP4iP8pFp NeFxL5BNigH314KwBdnIMs Eiwrj4iaa2ottQg4FcBwRMFmafQ oyGcsNYE2x0XfJj68F1QsmOhhy3 CcLhk4ia03qIStn7J3mCK9 U5XwUNJidghdpQDjnTpjUP4oEAL nrfoiXYScmH5tOAGtE6e1WeCbCt L7HVliT0CwltF8GFRpmZHz NEHrgZMLmN6otgolm4oktiayHtC yHSGsCGm9IMf8SEYfqFazSoGyHN U3GzJ9WDU9lLGmpX4txYjq vycazJ1mGrl+WYF5nNCxkZVMHL4 lOjwvdGQ+RMEuSCT1fFtyKAqwWC YgwD9rCKTmS6n5LdLbJyT4 RIbuP5SfqdE0YYGxhPUiQSEfgRE DwZ8wiulod7otkxuoRqOqSWUcCY w4BNw4HYHncXgvJjOlFBT9 EfO3KVV8pWAbgJ4xkTybsqabcW6 wOyc+YwdxpLgsUML9CFf3G0LwHb s9UZKatYsaGH5nwHRaWWuo Qe9zoJyjbXpoUW2dDJHzmzlvv41 4UjSrg7niSNHbqPLjCJboQMG8J8 9vc5Z4INMrESDhUFM7kWN9 aY3crBvylbsvkPHkpQzaplQxoWv nBGesVYrtR810AGSixOrbKjBpHU o2L0JbKtl7IRKqvMeeBF6p jWDxBCvzEl3iiKnbuDesUZ6tBDB kyttes717IfFlv0fmUDYnoEPvUA amSJH8Y95fv2K6HVVpWZFq STI0fGD4qS8duLlzbgfskDAefIq qpkHxtSdwJEldOAnnZ627IZCifC peBqGeaAh6L1JzInd9MZAh vEwyLP8yqRShXDxuGd8enUnlbMc fSI7wYKPwcygki137PcArm3bfIM PdyMYbCBwrAEH3O62cy0N4 QJTdUYXpJCM4yST9vB6ybHidcsj gbGVmdDsgdmVydGljYWwtYWxpZ2 46IHRvcDsnPlBhdGllbnQg MIvkRIh5O3YhJweavNY+SZ12PAA zNJ34sHUkrZEvu8bhoIu6KmTyLQ RbGTX5iQjbNYdoc8IsPUSq M61dxMOfx7W3XWMafMrbqJArVsF niZF9jE1hLGmhxtkwl3jasvrmPn prr1gscv82iA71Q39lGJui XTGzOSExQFWhHCPavLwdhp9slU6 wIi8+HMIebKD6sNS4uW8dKTAdIp D3FZyyW091NkXabKMyOiux a0jjl0kanHp7ToS7XGJyoqXkfTb kNOE1g3KrJe53Q36aTNqtYPQpRK RhUCOzCQRmgHybrd2sbA1q Ii8+ZNCgkKA6aNL5xC2wLeKrMiX 2VYpgR599QvHfzEWuRxoyO86lJ8 JvdXA+HBXpNaf5ZNKntXod NZ3gdBJmYLhuTx5tALD1YuDfOfL sAQosV5UxFXBrstbnyfhnuAG0JA AcYOEhsC90Ub1uxTqlMSTc bBXHtH0jjevar4ndlosmOoLcEXL tGDd2TFu8RVSxmHhaAkSrQVA4Fx T6BON3lFRmnY4veNztkkmv fC6rQ2ZdHLMolmprCx74vS6oBcI xRhG3PTtbNts+TVVMTEVOUywgUk GQWTOZUIGYKQgRWyW1P7Hw Uuv3RDSbaEwtTI0woWEoZJrcVv2 crQnfnQajKQ4bYAEckffzUFYrjY 8mMDSgeCPehAjaEB0uVURe eqiie144DjZcYMR1JRGyaHJyS7S yaE2lQsMwCAErVTIuA6KouXDdDD qxC278WEscTlD6XEZhnaJt K8GcOYQfkUtkTxF6d3X6Cy6bAN4 rAn8vAWv3IS44LM17cERli8O9aV A4J9RzJWAoynrzipmtsEG8 JFUqFWQcvF86iZNlAHvqZb5ve4P 9o911GDHcEFMxcZ70Pi8jzRwkDO RjkGIUeH8egqxau5hgohjo FnJyIEHrZCb0FUj1EHLumDfnVkW vUGD6JfA5KGX0eVVbdD0xgMzava crgK9aQnn+MzcgWWVhcnM8 U9KdCnz7KPTqvTthEM8soZFpZRg aYj2jjHalaRzwWY0eNYOvpuccZL VpsE9xEXHosBGoxOhuQB5s JONloqmtu857GoNdEAY4WYMmbPP bG0KpjJ6zQpHcAUWePQHoX1CzpS LmLHqcU937FHenQhJ7JWRn kkOoU7GyYYGorTyuFbX7v5Q3Dc7 HNG7TRFE8S8WvIac4YIDwfWyxMC 1iqUDtMJmeBm9yrEyuvBjj SZ3pBGWwwnwoVBNjfR5iAOOqrZY oqRvrJI3jVRVstkalu999FrLgXD C2NRIywRDvK6RvbY3pMpOx TMKxUMEdR8OcnRLdWKolY094GDg qFcF8JENnogLlW2CiRSHysNxvLr D4y8X0Iy3XADrcnZJ+PC90 ee08V1WwVhjpHhv1SSRfSQF5qYO 0uT5mTCXfHMnbr5L4oJK3O4Tjpc Ltax0gp6esXHLgUFytS24t pVVgc2A8AVYmiBI0LJAdgTtnTwU zsR46Tjf+PACowEtkm4WzDuycc4 dmx6mbvGf8SzBoEAIqgzGj vQcvYHO3b2WuSk92U81eVMkeIWM fCNQmELIwMFQwgEubtf6eoT8jNj 8+WTBbsUG6jQV3aU4yHbXj TsM3WJyfD291McIyrXPxYvjxb2n wx1utvKy9VrXuIGQtlsGcrXhmAV N3c6WmVa62M8TebKqwb3Ti Cbt5fb65qPYkw4H3pLX2K6SdNLV apvqhtVXgpNqpLO6yITKehfzgSP KhvX9pXPIcN8a5UjSoPfA7 UHlnO6CroeU3PBLgzGEwKRIfyKS TmR9seiqjl1slcmwoScFvFZAvTA r9OQm6QCWpqTiwWuSiEGG6 PcY6MOY0nTNhpD6osTaqbkzgzZ0 wOyc+PZs1d5tdmIVvQG6qvRG3IY 90LW66vRAxq5L6xXV2I2Se VFChlhcorpyxrAL0OIGjTIOxiS2 6Zy1oyOnwMs8qWAPmMZZ2SVExzG ZfQ0TevZ8uFsSuWLUoGMYy C7AclVOmLAdqZ897EAlnAcJ8EKF iprNfL2ChCFIdpMtfFrI6h6U1Wr 9WGB43IC33OF73fPIpy4K0 yZX1B3XkLRYuqbxnhmejrHQ7PUR mEJImnD43Ho3uaBqrUl4nBUQsLR A5TMVseYCeK2QumO2kUpXr IDWaLZWgP2KbgZBrURqiZ500MWu dYzL4RASvuiGnI0DpQEMooNouTh J3v3W6Dc1PHk32JG75UX09 aZRau0W0gXP9S6OmUFCowwtlmqu gzYW9EIFxNUKmxC89Un0ngXmtDm 3aLAHxZZT8KQCiaZUrY0Lo aV7lXkWbHTWzTCPpF6CwnJKfFVa sA851XOlqGdB3NHRhbsClQ3LoBG UvaHqjBsE6d3A4Wq3JXAnx ghy0Y9DlPtkotVI+SG45UTHaSH9 2mEEppGGle4whrCs3XoSbGMMfJQ J4xEmkBAazw1QpFNPjC70y bGF (more content not included)... [facility] Provider Orderson 02-27-2023 Provider Orders [id number] [facility] Coding Summaryon 02-26-2023 Coding Summary [facility] HcluvybqROm7mAq+PGhlYWQ+PE1 JQCNtE73xnYPniX8vH6BCFWxQQm ftNTNKGArLDuIblwYtYO9hmKYiA XJu IC8+KH8mWULxHgtndGHvi5U2sQJ 9W69jqc5sYNfspNC4FICgBoBlew mqp7ifsAl0ONgpKqzkRnBl FVOinU57DGE5kR75Ta33bRUqaCH do4wcqBm2AwXbLUNtJFA3zUxcDG pio4HbQYBkE14dlTDbi1C4 BADnnOjwpLApQtHhjHC6aB6kNXk myakpu7qlaobfKcf2qw48aQAgn9 Q4pBW9S9OfsjB0NMYciKVq XtnktKSHoK8lckusy9ajeybcFnF zGRLdEAp4BTo5ORKrxDzlMrQeLX 47RMA1FRAnilTdN8RpAXIv pSreYnQ7k0V8Eq8WY3LWEduqS2J NTUFSWTwvdGQ+ZK68vz13E9MzUc tcVwl1CVToMRI8xCY2fR3v SOAlKJpvz0S0tGH1T7RxxzJamz6 fe6puCOIsEEijB70aiQPzn0J1RG KqyDF5AOYhsNsgCdIadF20 Oyc+FBHwuVblz1DeBcmrh0xxw2m cvTu9ZosvFDKdpnGkuKnvUKS0t9 NnGc9dROExjLV7rQD0dZ2w TfXfZmD5VLnrG332IwGjeOIfWtb zX89rD6CqpZU+HLYcEzp2JWFheM pnYD0bO8XjLPGzopgcwWTj dWulYB5jSZOisczlDDIxgP6hYLL rN8x6QyDcMgD3CJqsL2RhHXRwel boWb94gC1cNqDrPiC0PCem W0AkjoZ8DYTdbTUxPTloROH9G83 sg3P2TQViFTIiZUF9fJV8kU0lzH lnbjogbGVmdDsgdmVydGlj BScfHTdwU173DBCuqJkcVpOjNMk uZyBEYXRlOiAgMTIvMjAvMjAyMz wvdGQ+TRQaFTW7bYgiJFBv sNHtYAdsAd4dbEvikLbnXQ1tGWQ zjjooNNDxuL2wLCFemZGehXzzNA 0qNYVfblwmf177GaXvEOZ4 SWVacHGwA7NbdY4gWaAgPSFtPUJ dD5EpyEElCEpmW504IXzhWeP5TN BhjcEwM7PcGAQbcPpfLmS4 b5X4Sm2Ln5QezakcH9NmsPSsJdZ vXvcoSVl5U7NsFydtcTF+PC90YW GyGN10WWn5EVK5kCwiJRjb TEDkP8AkeE0gAeStOFSgHAKsHxu +PHRhYmxlIHdpZHRoPScxMDAlJy XmuFteJR5eOw3aUHGmHQRx lWkbdKJeWzUlz6yuYGClLTgdQW0 icUbuC6BkbFY4SYLvv9h0Pu08P1 3tU4EzhHV+VIDokOD1gXG6 wV1gLeHmKnC4VUeiV274AnHgtRV nHlqxo9lcj9zfvAi6EbC4IWAgyu SpvHtcJMM7m7AnOj47I76g IHdpZHRoPSIxNSUiIHZhbGlnbj0 wfX3fSd8+DUGjvET8oSU8jM8aIw QpYbQ1DQjtS929DjHquWKe Yxqha8jjm5kpbIr4MfDzZWKtgtM ebTpoUVA1y0MkOq19B2RzsVlsq4 NpZho8lw66wNRzj2B3hIK0 M5EuJPHnvitflDCgnCewSC8mAOZ rwqutVBCeaI6fIYJdN0w1ZrKiNv W6PMsjV7EtodI4XQPeaRUp OSKeoNSQaD0ldnzus3qjcxddHzY bLFWkNPy3NPd5SERmkGgbZdOqFL L4EwU1TGI4uMHldC1ziZme cxkolA6rIwi+TCB6iEUvbJECRD6 lOjwvdGQ+YIVtEGP8tLtpEXqfFL ZtbX6bHZCnG5i9IpBtDyC4 IZmrQ1RyocA0BLEzuGRdAKScbOL WfL5qormjs1ihtfurHgVpMRSnFS y6JPi5OLMsoBlvGuHdSFF0 StP5DQR7kMIxqR7vbZqfbjdmmG8 wOyc+YbwgfYsqCKG2DPf9Z8MoJh p0BBRlfBixXA9dhXMvLGst Xg7dyIjgvDsjOD6nWKFzovigf56 1IuQax4oaLFLkaNSdHSaoFVL5A7 5dx0S6JYBeFBRlSFM0eJP8 fL9faVjnguryyNZtvYniujJxnFx pXFupCGjhC396TNNdyZqtGkKiES l0G8EdTgk4AVEarVpzJW9s mVEfOJwiEj1tySajdGnyID7dUGK bhuxhb852OuGlu5eqAYJegUVqAA vcVIF7V66gb6T4JDEeBIKi GWX2nOT9gE1jmGtlfqtfgZFvmUe zirNinIkfGLfoZQfnV375CIPusW htZvXalKv0K7WoFnd1FYYr gUvlDB5hbBMdKHrrOl8tcWvfhFr eBL4tUSQkxtinr655PdQte6ksMY TzjFYaUYcvTDD0C99my7B0 RIKpAMFyFHW2iYK2wC5xfWozpka gbGVmdDsgdmVydGljYWwtYWxpZ2 46IHRvcDsnPlBhdGllbnQg XLshRBz0W1LeKacfiGG+CC89NEV mXV30sXNbkYPou2vhjSh3XoLpDY CoJTO4aXeuDHcga0TcINEg L16dpYXlt5K2DLGpsOcumUQcXwV pfSI7dT4nXBumalzxs6ysbeykXw dvt0duyr52wC71C93aTAjr RMUwLHVlUABmKHBagVhmor6azE8 wIi8+OMZlxZK3fDB5yQ6xLDAxWi W6BCejQ202AsBicDIqYlon r9zfx9pzhYx6QeE5NXDwrnDmkYd pXJL5y6ImHq12G11qQLcfZCEdRW OlKAFwGMZgpXcphb0foP2s Ii8+JHJaxTW9nCQ7cQ1oBqKuOrC 7NLjuD940SaOjmJMnBnosL26sR9 JvdXA+TTDlFwq8IICcdQfk EU1epDUuBEwpEz4fIIG0HjYaAiM cYGvnA0VkMGElcmuzjdzdaEU4MV BgJGUvyG82Lm0tdFcqUWJm zARPuX1czbige7okuzimFbQzJVF vKGd4XTu6FGRlpFcjQiKwRSF2Fc O0EZL6bYSynS7zcBlckyts aT0iF7NxJNVokqbrAc63gV8sAgM gAhY3SBqpUqh+TVVMTEVOUywgUk MTYFUCDQIQXEmFElC5Q7Js Jov4VIMleRyfTO8eyIZhTLffQu1 dtExdsHrcFI9eWPPlcnfrVAMnjD 1qJFIslJSgdPfoAP8aDTSd auzbx225OzTwCME3WEMnaJExE6A mzM4yRhGaZVNvLBHfG6JmhPBoHE qlS244TOxcTiI9HDAknbYq G6MoSZTfoUtzCoV8v0A9Nb6kHO0 vGb4sATu4OP55OU91sFUfp4O5xZ C3V0BtUFRibqzxkrjfmPA7 NBErLHMrtF29gGRhWDvkYk0im2Y 2x994NCKzUATlhQ17Ty4lnItnQY EvcYBYnV7bdnuqd1ablifw DrWuDQOjMUx4QAn7VWLnvElpFwT cXBH6UoG2OSS3fAVaqM2gmQwmnk dhbR8lVxl+MzcgWWVhcnM8 T1AoBmd2NDHhkLezRN3xoLVgEXy wTk3viTvyrAayZA0xQRVjrzlxTK DevE8wEYRexOJbxWwfAL2q DVIroxtld694EyRlELB2NMPktNN zT2QtdS1kFcPdOUQuKTMhF6HfdM XpAVmkX262ZGycWiJ1KKXh ceDlW3NpUXKdmBytEeY3y7I5Zf9 LCQ0OUDC9B1HfYvr5KNOeeDgmSF 3rgOVjWLfdUh7ihQhglMxe AK5oZDTfvzlvVFXuqY0wDMTxkNA uwRrsTU1uGFDdtdmxk053GzSiVD W2MREwiIQfR0SjnG6hSqBd NIVhEUIzY7UniFXnIXqaT903OLw tXsJ1QZQgzlLrM5PmVOEeaEayXd K4y5X9Cc7FGVscyTV+PC90 xm19A6BrIvraLyt3IBFaFQG2dOZ 2sH2jZOEnFFqzq4P0lOF9O7Klkk Zslb3dh3kdHEWzISjuM08f eTDxq6U1LBNiwHK4IUPqpBblYqK keM71Xua+IVMosOgmo6NoXrtdw1 pen0olcKj8GgKpFIYgrvWu uSssVBE0q1KqQf63I63nIDezFLM xPTVxMBQxJMKijJllzz0deV2fYf 8+DQSyrAB6mJX5wZ8mPrGo XuR9DRyjQ674UzPutCImQiprr2h tb8crwBd9XwFwTWWisyTmuOrdRC Y2i6AdZo09O2KxlXxsq3Om Ant4vr03uCKdn6U3aHJ4O1LfJLR secuygGZguLzgVM6aIKObnahdEI VsuJ7yUKNrX3u8SoOyOmI6 PBpsM2BnsuM5RDDnfNCtIHNisGV QbD8cpyhix6gelcndIsElKRFyGM i9XBv0PNMquKykWsLxGZR4 KlK6EPM6dYQcfL7eoZnqqnjhzR6 wOyc+WYc6j2emmRSuGP6ugYX0ZO 25TA65jLZvl7W5qRA4M7Wt NLHdnnrizvppqJD7LNCgQHNxiQ2 6Ah7xhAcaVj1gMEBrFYK3EWUybK WvV4WndD1wHvMfFXXrRLGa I3IafVHySAumN856UHxmBlL4LIF gxdAuS9HlPUOnrYyoYmM0k0U5Aw 5LTY50UJ03UM33xXGzn0P1 lMI3S7ZqXYAqzkxrwzmglQK2RVH vBCYwpR31Fd9lfDtsSf2iMZOaCF B9GFRniFAjF9ArwN0qInGt TWFsPSCzY2QxfWJcFQbmL851RVb cPnI6VZZlnzJgN2BrEVXlfUqoKj O1o2E1Hl0CGm04OO44EW21 nLQus1D5eIL8A7GwVUAiojkzddn prBQ7GQRwAIEoaI20Rj4flNtvCk 2yXTVkSNW4MPDuqHOpJ1Gq zX8rVhXnAIZuKNXkL8EepWXjJCv nY305BTnaGzP5WFLjmxUkR8KfXB AhcGfkWqM1f4X9Dv0VDUxg xyd3L2JbIqytfFS+KG80XUTfWW6 9kCVwnVZqj3gkdGu9WdLoGAGyED W2nCpaDPlhd5EcASVcL21c bGF (more content not included)... [facility] Coding Summaryon 02-19-2023 Coding Summary HTMLBase 64 XqshrjdqCVh5jGu+PGhlYWQ+PE1 GOITaB32ojSIfmE5cT3VSAJzAYi hnEODAQXvOQjKatuNaGE4qkRGlY XJu IC8+NV6fNQBbUppccYJkd0Y0yKK 2I41don5mAPagzAH3IYPtBhCadn ist9hqkFn2KEghEcwxUdUw JYLmhO59OSI4kZ02Lh68jPIdfNC gm4huvAm7OrEiLKIvKJC4qScdPT thk2UbFMKmQ25xaOJkp1Z9 QEXhlGxfoIIuJkOowGZ8uL5wACa jwvyvc5ceymecTtg0kd04tSOie1 O2aFQ8R2KtubW0YVVdkRPd WnaucKGTaN5voiafl1qpuqnhGiQ uTSViMNm5CPh2UZEpkJbrLaEoTE 30ZPY7KBSmlmPoV7IsTEDz fDzcZfG4r8S2Qb8CX6JWLkyuS0J NTUFSWTwvdGQ+PO39hr21P5FuNe rcOap0JZTuJEL7xTH9fS4z UCXnCCiiy4G0oER5T1ReidPmnk2 cp2taRTDlXMctU20faNTur0I2NX WdlXJ9POPftNprMtBxcJ80 Oyc+JMZlaZpgu6BnEnsvl9ezn0g khFj8QvwbEYWhyxKlxTcfVHQ3m5 LbDs6gUGHwvHT9zOK9xW9s SnCfNdS4TFwdA858QxWwsCJcFix eQ03zX1GxaXC+GEUqUfi9AEPjhV xvOS9aY0TaJXGtfrpwuDHz rMfhVD5cUZEhlaaqGZJnaD6wODB jX7l8IpGbOsX2LGwiN6QaTVIxny qyFe25yT4uQuFgWqL4RQxg U1GgytN7SVWuaANwMFwiONR6S30 yc4C6IGQuXRYcLGY7bVZ6fR3mwS lnbjogbGVmdDsgdmVydGlj SDefRUupV387SDNwuRbwSwFpIZz uZyBEYXRlOiAgMTIvMTMvMjAyMz wvdGQ+TXCyFTD8pHsgUPVq lMEpMZuvAj1nmFtvbEalDQ6kEBC eudemKAPqlN7vAXIknJZxwNtnZS 8gKCFodmuda011XzFvAHN2 BBJnrRXjZ8YpxA7dDkIsTNPyFMX fL9AuxNTmCAvcR277FVgdMnT7GJ TvqcFwT7IbPTLwtZztAiF7 u8R4Pr0Tr5OdnnnzS5BzwTMzBtR aIodeENo3O0AjEbwiyBU+PC90YW HfVR34OJk5EPW1xPcpDRqa XYTiG3CkcY8lVuDeSDCpSWZeYda +PHRhYmxlIHdpZHRoPScxMDAlJy EtbHpuAJ3jZw7lJAWzRAIv sBcfbPPcHbPtr2ssCLBfMAyyXD0 qdHwaO2JnjHO2POLhs9j6Ui53B4 5jB7WujGU+CKOdnYG5uUM8 nU3kYwAlTlX6SVyhB572RcYbxVQ aWynnq0ren4opaJm7GqT5EWHekb SmfFgaZVS5p8MaXw23U41v IHdpZHRoPSIxNSUiIHZhbGlnbj0 dxW0uLs7+ZGHwjCU4nMK5bB0rEo QzWrN8WKnwS136NyRslILv Whtzl3gbn6fmfRn3MnHaGBOpwmL txLayIAV9o0KaDr34M9SzkHlrg5 TvQbd6eh47mTWoa3D6cWT2 B5TiSELjooyzaMQuhVqvCS7xWIG yhkikSLYutP5rEPPgN7h7OtWkCx P0SFxzK8AfamX9UTBruBKk LGOzrKZAkK1waodof1tnsibjLkD fOYAnNFx0TBn5AFLzmMqqQoLePP W9YyT2VKE4sKUhxF0ioVxx uxlylQ7qXfo+OWJ2mFWezONSAO3 lOjwvdGQ+XWOcPUE7wNbvSIlsOU MhoH2qHJRaU6z3QtErBtB5 DZveL8FpyjF7ZXYzzZQdANOajZS ThK3tccqot9yrrhzkXhXbFVUwMQ h4CSj4MDLryXhkBxGdSJG4 YyD3FJG6hPJtbX4ibEfgpartuU0 wOyc+TwnubSrcOYE7UEd7L0PkBx c2NYYqlIlsDE7wzBRoGUft Lx3pfDknsQsfPK5iSBIvulxhx47 9YaIzn9inUNEbyBIzOJsjMRA1Q1 7cw9Q4MVQuVUBuPOE7zMP6 rH7qrEmasvtcaWBkyNykqdRizAi eCUcaUNqxR957ASLgkUasEtToTF o1X0VmUlx4GPZndPwgHG8d pYUsIZxkHv1xzAolxIavSG5iJNU fwvqos324BxJpd7soCQDjoROaRC vaMSC3Y87lz6P6IHEwIDZl CRC8xNM5fH5gzWxergqlhRKqnVt rbsDjeDryDXzpBQmuJ537RBHkzL jnKfCdoCq7O3VwTmc6HXEk gMbyOM9kpDOkSFdyGc4kjJjftQj eQU2lQNOmmhzia033XcBto1bgZC HjiETkFQaoRBT4U30vz3Y6 GKEaFWIxHMG0sDQ4bY6wfIbflgi gbGVmdDsgdmVydGljYWwtYWxpZ2 46IHRvcDsnPlBhdGllbnQg CLyxGTp1A0IuUmcanKY+SL60QRR pNO71iAEswTZvn9nlbNm9KgZnHC ArPEL6vGsaEOunf0LiOWZl F43teAZno6I9KHCcrHbehMTiYlP lgDS0zL1bLPenlknth3ucmizqAw kta0pngp05yR68L99hUGeo NPUdEOVuSUQoZFShbLdjrm7yhM7 wIi8+WVWjdCO3vFY0rZ5cHRGrOl E4ASfuG508ZwHstYHtGyhb c2elm8bzbFb6SdI3YZShunZzcEz uOHY0r9YkBv27X68tNObzJQJkZY BdBDSmUAUxoLyhtj3wnX2p Ii8+YZXlfIN4pXV4lX9gCwTgDrF 0XTypO406YmPvuWBeDiwfR88oP1 JvdXA+QTQzNtz1FRUwtBxu JN2ucEYqXNmcKf8kCWL2FmQdKfL xIEsjP7NkECUmudhywrwfwYF0TQ BhUIPuwZ71Yr9djXinQBOc lMMBtF2tuydjx3ucpxbsIoUzYGU xCMu9GWf5LBOspLnoIuUhZVW1Uh E5SFJ1lXOsmS7adJxjpujn bE9bX1WkXNAkdttyZn43dQ2tBaK vMiX3BInaTst+TVVMTEVOUywgUk IGSTGOWLCLBDeUZqW6K1Rl Kbw1PATejStaVA4mfBSqTGpvDr0 xdGcpmKtoBN4aIZHeklncVQMlmK 1bYQEusZIylZktGD9kUKKe nmmnk373ImBrPYX1AVColKEmO9E rqE6aSyEuDAWdLCZyG2LhoKMcKK yiP970YTorCwK7QUJmewVs Z8PqWSEetHjxQtL5r2G9Li5zMJ8 kAq2zFTk4TA57QY62uWEaa5Z7tP E5C3CdFNQcmjdydxriyMW1 WAYpPMMtpV22aLRbWIemAo1dg3P 0p262ZLEcDOTuhT55Yk4kzLcyQP TmbZZErX2rzkokx6zfahlu KfItYFUhREj2CWw4TIOiqVwsUdT iQTX2UsD5RPO7hBHiiG1vhMpxdd mzmY5lUnp+MzcgWWVhcnM8 A9CiMbr1LRPzgRhcXB0yrVQdMEd bUv1fkImmyTucNW5uPWRwrdbbJG EnrC8kFOOreBLeoPcyTW3i UMLpbngql119QaFjWLF5AAFupYK jF5UfeS4eTgOpYFOoUJQcB7OizM WsVFciW583QAvuTtY5RQVz pnVpZ8PdVNKbsYncApV5a3F3Ji4 VYF8ACRS8T1QgRba4KDMudQqkIK 9soUFbBUkaLx2cxOmztWto UN0zRVGbqtlyBCBxkP2xWXFpvPN hxKgwMP1zYXWntinsc289GhWeUQ Q6ECVvmWHgG6VxqD5lBoIz USAlZFJoS2LdnPQuIFflD612DLe tXfS5KSBgtjSiM9LeZPJfkSgsHa J3g7Y2Fg0UJQO4owHyabxt J3G3yAV9uCRkfYyzdAF+LU94uw9 5Y1ZoSnvaVhr8KHEqWDQ9bJF1qB 5dGBOjYBsez3Q4tNG3U1Sr qnIujs9wf2idAEZmHUbmK85wrPU yg2H7RSMjpSZ6SYLpoMieBhZtlZ 93Oyc+YKTqgSkiy4XkDtes i8anw4aikSr2CqEpPHWvqwXdfIf rIRH1c1AjMk70B25bFEmeHPLqPE VkOLQfQJHiyIhhwl6nlL6q Ii8+DGEbfWC0uXV4rL5pGlXpCjX 6CZkrC073LePrnOQrXpgif6ywv1 qesOy4VqDsJHLncgPiwMbl KWL0d5OyKg47G7MthTsxz1RdIji 8sa50eWDhk5K6xLV2P1FlWKFizy fxmEReiFeiLD1wQNVbzfzd RBKodF6mIJXaT0n1ClObJsV3QWk wQ2KmycK9QOXqmOZlQWRtoBVXcA 2bjsecg9kqbclmJvWeLSHw ZCx5XAf6HFAmrHeoJlHkDBS0BpP 3HQY5xCRstB1cyTxrvxyqkM8yXd c+SNk1o4kjhWHzVN2quYT0 WY79NX11eKOzf3K1tBH1K6WtSBA xzvbrktudpBX7JOJhDEAixU56Mc 9qzPmtDu1gKWSrAJA1NKLg uXHuD3WrrU3xXrJzDBYzJQPtZ7A cnPDwNFuxG716TIlyHoM5GBYrau EeG4PhXALhlRxcVeV2e0Q4 Im1VCU03QJ66OF91dCRsn2J3hEL 2D2KpPGKrwqqjvbibqIW8KYDjEC PyjN51Mx3zhVwvFr6iDFPz GWT6TMCkvUOlQ2DmaM3vEuWqSQP rJVApS4WupPYfNJipY304TDmeSn D7UGXvpdOnE6MwCPHgvMot PxC4l1U5Ah0ESl33TQ06FF32eQY fn5I1zCY7X5AgXBDrrzcabewtcC M3MENbGWSvdD91Ha3gbPju Fk7uVVEtTEI6OSEurQIrI8WwsT5 nUaAjMQFwKHWwT2UegWTtHEahK0 11ZAfbZjO6YDYswuNbQ7Ay ANIezBjgUoQ2g7N9Al1SJNlthik 4X6GjJvimxUV+JE66IIGrAU60eV TrsJXta0lbbGj6ZyYjXIOr IHN (more content not included)... [facility] ED Clinical Summaryon 2022 ED Clinical Summary [facility] ? Urgent Care [address] [place] [id number] Clinical Summary PERSON INFORMATION Name: MICHAEL RAMON Age: 37 Years Sex: FEMALE : 1985 MRN: Acct#: Visit Reason: Medical screening exam; [facility] F/U - RIGHT FOOT INJURY Arrival: 02/19/2023 12:55:41 Discharge: 02/19/2023 13:43:00 LOS: 000 00:48 Check In: 02/19/2023 12:55:41 Checkout: 02/19/2023 13:43:00 Address: [address] [place] [id number] PCP: Thu Baldwin DO PROVIDER INFORMATION Provider Role Assigned Unassigned Mati Bell-Elinor ED PA 02/19/2023 13:00:25 Valerie Clay MA [...] Patient/family/caregiver verbalizes understanding of instructions given Comment: [facility] ED Patient Summaryon 023 ED Patient Summary [facility] ? Urgent Care [address] [place] [id number] PATIENT DISCHARGE INSTRUCTIONS Patient Information Name: MICHAEL [...] and treatment you received today in the [facility] Emergency Department were for an urgent problem and are not intended as complete care. It is important for you to follow up with a doctor, nurse practitioner, or physician?s quality assistant for ongoing care. If your symptoms [...] so we can reach you if necessary. [facility] Emergency Department has provided you with a complete list of medications post discharge. 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 Do not drive a car. ? Do not operate machinery such as power tools, [employer] mowers, drills, sewing machines, or stoves ? Avoid alcoholic beverages and drugs for allergies, nerves, or sleep ? Do not make important personal or business decisions or sign any legal documents Reason for Visit: Medical Screening Exam. [facility] F/U. Allergies: Substance Reaction Symptoms Type Comments [...] on how to (more content not included)... [facility]- Provideron 02-19-2023 Urgent Care Note- Provider Patient: MICHAEL RAMON Age: 37 years Sex: FEMALE : 1985 Associated Diagnoses: Contusion of right foot; Hallux rigidus Author: Mati Bell PA-C Basic Information Additional information: Chief Complaint from Nursing Triage Note : Chief Complaint 02/19/2023 13:13 EST Chief Complaint Medical Screening Exam. [facility] F/U. . History of Present Illness OCCUPATIONAL HEALTH FOLLOW-UP Date of injury: 08/26/2019 Claim #: [id number] Employer: [employer] Mechanism of Injury: She was moving boxes of celery when one fell onto the top of her right foot. 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 who is seen today in follow-up for a work related injury. On 08/26/19 she was moving boxes of celery when a box fell off of the cart and landed on the top of her right foot. She was initially on light duty per [employer]'s telehealth visit. When she was not getting [...] She had a successful injection prior to gi and has had great relief of pain. [...] History Medical history: Resolved Lower back pain ([id number]): Resolved.. Surgical history: Lumbar epidural steroid injection ([id number]) on (more content not included)... [facility] Recordon 023 Urgent Care Record [facility] ? Urgent Care [address] [place] [address] PATIENT DISCHARGE INSTRUCTIONS Patient Information Name: MICHAEL RAMON Age: 37 Years Date of : 1985 Reason For Visit: Medical screening exam; [facility] F/U - RIGHT FOOT INJURY Arrival Time: 02/19/2023 12:55:41 Primary Care Physician: Thu Baldwin DO Attending Physician: Mati Bell PA-C Comment: Visit Diagnosis: Diagnoses This Visit Contusion of right foot (S90.31XA) Hallux rigidus (M20.20) Medical screening exam ([id number]) If you received any narcotics, sedation, or [...] and treatment you received today in the [facility] Urgent [facility] were for an urgent problem and are not intended as complete care. It is important for you to follow up with a doctor, nurse practitioner, or physician?s quality assistant for ongoing care. If your symptoms [...] so we can reach you if necessary. [facility] Urgent [facility] has provided you with a complete list of medications post discharge. 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 [facility] Coding Summaryon 01-28-2023 Coding Summary HTMLBase 64 ZcwytbbtSTy8dUy+PGhlYWQ+PE1 AGDGdR57ayRSfqU3bY0IVIYgVTh ldGLSJAGbLIvVupcEqDM2uzJGnR XJu IC8+UI0oIZPjIpipyUWhc4O4xFO 2S31rsc3iUJimwHE8TWWlHqMpiq qea4cblOc7FZmrFlndFzEs UCQovF71DGT6lZ88Mr55hSUpsON xu8dkvZc5AoLbOVVoVKE8cSufIE kav3KoVXWxF80vgDKcy6O2 VJIxlScdiVCcPrOdiOX7xK0jKOc vlhnsi5kvimkmXlv9en41sWJls4 V6jAB9F8XjpnX9UVIsbNDr IpnyfWYGrE5sphfub9dwtkaoGtS wBPLtGRz6FUa3NUZyfFnvMiOtJQ 52LGF7MITgqeFyS4RrBYLp sZrxTkR3a5W3Ce0PE6SYSrxhD4V NTUFSWTwvdGQ+HX25si82J3RzSr caAqb9ZVUwAEO2zWG0tN6n WENpCFwmd2F9cQA2S2FvvuWjqw4 yo8msOGDvTYymG12cmDZca6G6HY HebOL2JDLgwPsaHlXcpA10 Oyc+PJVloRilq4PfLevkr8dvh6m xxMe2TdrvSCNylhGxnWcmIUK7w7 CoVw2dOCZgbKA2wVN2vM1i AeHzJsY8SQzvY429UcHneIJpXut eO49yJ2CwkZM+TPGtBdh2VDMkmZ ehAS0rC0FdUQTyfyfuhEXa fUbjAQ7iKXCpgxpqNZAqxS9gURW gD2t8EfOwStM0CCswZ9ZvSRGfgu lxPn58dM9hJbRpJsM9KNpq W7MmwmP5GPWtsCRhISbrPOC7G67 et0D7PIDhZHIgWKI2bVL2uV3nvD lnbjogbGVmdDsgdmVydGlj KNkfBNvyR350ADVngHabIrQtJHi uZyBEYXRlOiAgMTEvMjEvMjAyMz wvdGQ+QDUgUWV4wIpcKKQt tSJoOMuiGj9mwJbtcNgcZO3jEQA uvzsdZNZwjL6fQHAarUApsXvlJC 5lTXYnezdwt742PlMkJDN4 TKEbhFSbB2EpkY4aYtFpWMTtYWW rM1UdbLXuETgaO932FAsoGxC2CG ZitpAwM3XzTDKncNcwQpT5 t5D3Xg8Sm4FsfdxsW2TezKRwZuF sLmkvNNf7R5YmWvxfiWU+PC90YW KuQO86HYu2ABG6wOqkNWmk AVGvA4AmpE4dIbSwAWWvXTMwOaf +PHRhYmxlIHdpZHRoPScxMDAlJy MmuShnSL4eDi5yOMKiKUYf bJgryDGwLcIop2ibZMTuKXufLB1 iqSwbZ7GhtLO0BPCdd2h3Ht66N6 8tT9MwaNV+NSEspSH6rNR0 zF7sXpNyOpG6PZczZ322VjJuiWQ yOumqm6jyu0cabTi1ThG0EQXylw KfhImvYHL4r4WjKv47I08f IHdpZHRoPSIxNSUiIHZhbGlnbj0 vaC1cAj6+KYTqkBB9fWC9jL2wZy FyQkM8MXusG689FsEpsKFm Ymlun0zsc3xnbSz4BvTlYANirkK etLjjSKR4b4QuBu69H5MnzOymi1 CzWhi7ip58kQArz8P9vOI6 O6HiWXYvfasxkNSpuKetVJ1lTFT jcwvhUMGnjJ3xDZFaW8a3EiTaFa P7NHgbA2GbdmL7KQIgrAZv XXKvkCYUvK0yoejhh3gvsuhfJpI rMLMrPTs1YZa8CUVutYhgCqOuIT X1ZuG9XRU9rPWjfR5hlOnp yibqcV2kYnu+NDE3qAMqkQBCHZ1 lOjwvdGQ+PXEtPNF7dRpwFLpnJF ZdsR8lAZUjL0q2HzHiBwW1 OSdvX5IdhsK6PDLsbIVvDWNxuDO TwG1ilslse3uwxuuuKeHnSAZfJS i6HNq1TOIajPnpNrDwOFU5 XdE5REU0dUHznT6ywJllefeunJ4 wOyc+JrhwgRmqXNQ6NNl6A0KpRf m9WDJeyRkqQA9atFDoDMbh Qr3snJamyIrnWT7fIMJqmmlwl74 4NpNuq3mrQMDtsZOpKFqqLTD4N6 9sy5M5UYSeAKWcIHW5sPS0 pY9bvGahvmtsoCAjaOkbfgHioSe xNEkhNVaeL232GNZgaXjsVcTtML f9D7HnMvq1MQZxlJmvLM5f zHYbDZlgDm3sqVvegCzfOR8pTJG rkmawn098XnIqu3fxWPErhZGqCM rdNEM0E31iy1N8JJIeALFd YPU5dYQ5jT9caJtfysqhzKArjJh xpdPaoNcvPAjcCXwgU759WPDpcZ ndNeWyiZv8L2ZvOox1WZAz lYnhET2qgBUlVYdzDv7duRjhzUz aKW4sUYCnhtrmt360TtKwl2iyZN QglRUmDDrcJKE5F30qo4E6 YGDrHRNoOQY0kHH9wC2izNhlmsf gbGVmdDsgdmVydGljYWwtYWxpZ2 46IHRvcDsnPlBhdGllbnQg XGcbOQv8G0XxSzqpsZN+GM00GNQ lIJ23zNDapBHbr4rcxJv8MiPnBE QfZOY3iJuhVHxbe2GgAWBd G76auDGyx6B0CBGthSosbYAlNnC bcFA8iJ6xTHgekzcwa8vccwceVb nrl0ljgv24xW34J24oJEbq XXQuONFjRUZxBJMigFzxbq7xsA1 wIi8+IIXvvAE0tXG6yK7vMOPbWz E8INtcO345MeStyUXnJuqi p0ikk4kghVu9IzP4KLBmtbUwlUq tXRS4w4DkEi39W37qSSkiVJPrDU GyJAYcFOAecMntko4axL5a Ii8+JUHjxXD5yWO3wN0dUoAqEmP 1ZRzkP160EqXdzXSkMfszJ78hW8 JvdXA+PBAqLac6ICAwoMnv WU4rzZCnYCtsZx7yNZE6TaUtVsW cYUybJ8YmUILjaedqlxaqjOO3QQ VuYXLvlG59Bo0ngTacQRUf zPWGfA5mjckhk0fgnxhuXkLnFEI eYAm6AVg5QZLlhSclFnAiNFR0Zg T1OEW9iJGalI9iaGwvqora xH8hS4LeAJWjmahtWd91xD3iRxZ kYbT6KBuwBke+TVVMTEVOUywgUk DZQHFQGHOVJEoEZwN4S6Hy Ncp0QGPowKcpQX7yuXQqLXyoYq5 ztSeylNofXU2rVDLlejcdFTGjdX 1qBSRciQTtdFcvPE2cHAPp qvagk607HxSmAFQ5TEHhjTGdG1X enS9tOpAlJUYrQTXcI9AggXPyLT pqU438JZlgPaY2XQGkzkPm A1PsGRAlzKlnUgU6v4J3Vg8nWQ2 rNo6bZHa3IY06EB48kQFcj5X3cQ Z0B5RwWRDmjseruoelnNY3 KSMyJXDynK15zOVdKHabCa4fl7M 1r516CMYgHYNnrX95Vx6drUsbBJ UzaDJJwF9pzivji0ghgomy UwEjDAUpXQo9WIr9IITenDskAuS rFLM5NsW0YNJ9oXSwvE8qxNucqf qghL4jGhl+MzcgWWVhcnM8 V5WeZlb5LCWreYzmBY2bdITvHOm zZn5crWjbyWwbAA6qSNGbglxeHE TddI3sHFAcrGObqLimZD5k EZGogecwm445VbPgHFC4EAXmtPW xE8OzuI7mBdUwCEXoIETcD7GbxT SdTTzrS920CCcbQoE8FFLs xdJdJ5SnSPTapXddTuV0r2N7Cy6 QUE8HBZT3E2AbGxo1FKWqmXotBF 9yxKMyZKcnSv2mpIwkmKwl GZ8bINUzhjqvUJYkuD0tFLGlySF lyKqwWX8dRFOwycrwv503SqZuSF P7RRGosRWtJ6LleL7sMnCj KBWhJVSfL2JwkMWjSOwuW843IXk xZyH2ROMbdtVsP4VtWIRqsPnrKg G8w3D1Cu7YLSsxfYA+PC90 lm59D7EpRhkmIbu9SKYtJHV6qZO 9uZ5kFFByWKycc5H7pNZ8Q1Cyru Ywpf4ls5ziDDRiLNskH21u pUHzd4P5GISbmQL6LSEnvBtuOyX gpQ86Egt+YUCjqRcxh6NeYealn1 syb8hzdWd7YrZmLNXzjiMf oQlpWCL5y8WpIv35H50yCRwvCNP mMUQuXEUoDZBwqIahjb9xsP9vFn 8+MVCbpTM7sZI3dX6cEeOx GaG2ESrbU582PkGgcRJwPtjoh0q ov8fbrSy8IpQyUIRuofChjAwzOI U6h8WkFr34T8NmsFcwj8Lc Ebr1du06hJJda9J1rNJ8D6ZuLED cuspydZYtkJavOV5yVNCieudkOR UocL2jMEBbL4z1VyFoRkX1 EBduJ2AxjwQ8TOMtsTTvGYNxeFZ TmF6vtgpys0qzfabwHnFzIZIlAC r7INt5FTWbwSdiPnYeLKQ2 BjD0YJT6wJOzhX0usUcfcsnasO0 wOyc+LGg1i2kevPSpKF0ehAQ2FS 07UI55qFAal4J2jQZ1K8Sk SFMmcryqjrkwrEQ8AJUnWFPxeF6 5Ga4sqHxeHv9hPXPjLCB5NZSvvZ TvT9VykC4mOvIyXFTsNCIa Z5IjyHAzALisL981GXleOwZ5XPR yifDcQ6XtWPRnaBvaBkT9u5H9Sn 7WUW73YF78VX39gOHxi2J7 qJI0N1PfGBBugvktbdsycUF0OTF gRRFcbP32Zh4anUxaCs5aZTPeMM J7PCBuxTEoY0GzdX3gZwYq YZAjOXItB1RciQGzLZdwC105LVx xSsL5RKSfeqLsB6KiWHJwpIiwPc U6f6D6Ad3MAl45FJ97RE09 hOSjz7U1dIJ8K3RuGUFeeihtjfs btGP6PESgYXBauS42Ek9gsFvvVa 7jREGnNRS3ODIkxDTaD5Lv lT8jVpZaUFIrFSSxF0PpoDXhKPr oL317HPwiMeO3MDPjjuUwV5OdMG TpcWsmLeX0d8U0Cx4ZLBrx qrb5Y5UlLphidFR+NX62SDKfSQ9 1aWGgoZVor2okaMp5RkFzXKLpXF K2qEglDIrip0ArNQNyD23h bGF (more content not included)... [facility] Coding Summary HTMLBase 64 TegnudunLBz7kSu+PGhlYWQ+PE1 QVRSxP55jeDHowG4dJ8WDCMyKJy zgYTNIXQzLXxBilmRlGU3oeKFvH XJu IC8+NH1cWCKsPybpuLGfu8V8cFZ 3R55grr5xVImfjOR4WTLjTsBwmj rmx2uqpNn8PExtIjyjKmBg FWUceB07YZJ8tE47Ss38gKYlvNY ww1jlqIr2HrJxSITnJMF0fXlfYQ tet0MkRDTgV56azXDce8Q5 LCIhmTvlbJNwBpHxhCT2uJ1xURp tjsvra7blbprcKph3tg04lWBqh0 M7jIX1J3CgojD3XBEzvZCe SevydRRZlO3nrxxzd9jfppnpSqF ySNMhTQw6BZc3AUTveSkoFcCyBU 90ZES9ZLEkatGmD8GtOPXf rXmoYjH6e1B2Ct6XA7USGbtbR2T NTUFSWTwvdGQ+BR92ud66F8BtPe zcCdw0SAGcELD2qIJ4yO1r SUDtGNnhb5U6eII9A6SksaOjit5 yh6ofSGNcIWmgT64jjGGvo1M0TJ DcpOK3PWOwyWgzZoXgsA96 Oyc+GTPtnNisd5PrDvzpe9fuy5z woSl6RcrtXSAusaKlbOvrBPE1h0 LaIa6pESEkpUG0zIF1qW5d QnUkAuW2JRqeV091ZpVhtZQiNma dN41zO4KtjNM+BRLeOkd5OJHyiI ceVO1rU0LvCAAxkpmbsTYg zTgqLV9zGAIlbcfcGJVtiF0qEKX lA4l3SuWsVuO3MBksO0XiNLQkoz syHh17tD9qEuSgJqN2LWrj D4SpfpG4PDGvxWOpKEvmDZZ2O64 iy9A6PXHnEWHfUBO0jYS8aA5voU lnbjogbGVmdDsgdmVydGlj IIhbYOsdW277PXAjjTzxGdQpRXg uZyBEYXRlOiAgMTEvMjEvMjAyMz wvdGQ+JLTdLUB6gKmrFYTz aKTqAHujOj0xhLafdBmrQL3tJJU xpdseQVJieN1kUDSxzTFonNqnCU 7yASYqrvzlk964TvEmVCD2 EMEziPUcV2LlqA9wVwWbNNAoXMZ iK6UdaOJeTUomB107LFevDfI0JH FiyvZvD5BtTISjvJhfCfH3 o2W4Zm6Fk7WtkraxU3AzoACsDfE qJjzyPHc5L2VaHcgvtVN+PC90YW MvPQ11NRm8XET5zXdoIIej ULDuL4MqfO3jCpJjFKDuGBEbIxy +PHRhYmxlIHdpZHRoPScxMDAlJy GfeNbjZX6wIk8tDVRtIODo oYfrxWWjTmMgt0ixVEGxDEdsWK9 tfZysK8NhqAR8ZVFrq9r9Yl43O4 0mA1WirAI+MUBrqVB8wLQ1 rF4aYaToDgE9KSweZ252VaFxvGR qYhuop0obk1mjnAa8KgX1UBUtxe ZuuEtyVHM5s2PuBy99K97t IHdpZHRoPSIxNSUiIHZhbGlnbj0 ovT9tXd4+UMImwXZ1hLR9tH1kQm MwRjM3WQtrK461EzVanAKr Nhayg6iie6gbpFl1ElIiCXXyioI krBulNCU8b4EoSd43Z0SizSxzn3 KuHkg1hc77oHVxm4U5xIK3 W9SqMVZofotwoEPslTrbZG2rGIU rirxaRDPyhS2eSYTbV8o6RrTkSh Y3TEfwV8FnsdS6VESpgVYf ILZenJBRfO6imfplr1bvytftTvK iNTDsVAh1MTn0PBOqaPpnIsAeDN J6LzP0KYY9zOBfbT4mnCdd kwgjvJ7cVji+MWE9eIItvLHSSU1 lOjwvdGQ+OSNnTAH3nCqmVTlkOC ZkgI9pPEKpK9y1SfHtCpM4 AHoiY7UkhfE0WZLyxLGuAKJnbLT KbJ5biorpy7zomuflEiUnPCUjWQ d8GNu9KLElfQciMiWpESN6 OaF4XPC1kFExjO7arPoxrjvljF2 wOyc+GtzutRzvXZR3NLp0P2EfTu r1ISWvwGaiIE6dcAJkXJwc Uq0stAevmHywZJ0dAXZjewkqv81 3EsIbh9iqTNDtkQFwUSfbGCI7O0 4dg7Z1JQHgTCDzOIF7wTI3 oI7mqDxoqbgwuGTwnHtikuHyiKi zBTaiQUmmP887QMHhnHmjSpLrQX v2T6DnAqf2KIVfmCyvVM4l sCYlTQadKk6snJohbTrjDF7zXQU qxhzgo401EsZcf6rjMIUdoOOdBU qeMAA8C77ow6F6IAGkLJBz MCW5tLZ4iO8mxHzuaoiqgJNpfVo jzzWoyVdwAHowKSzrZ364INKsdX hxVxAqkJi3G0TtLqz6QOMt rLlyMO3crLFxVBxhHk3hkGwkyDg pUJ7wRQIbwxypg653QpYca7blIW IngWChUZroJHH5I22pg9R2 SOQoZYPmPWM3mEZ7nL0rgIsotnj gbGVmdDsgdmVydGljYWwtYWxpZ2 46IHRvcDsnPlBhdGllbnQg YBxdXEq4L8DnHvgduIS+HD15CTZ jUP59sZLehDSgt5uikZl6HpPoMV JvBMJ1hCdpUGuqb0RpQDGp Q43lmYPss7E7NMXmtStpeNRvWaL nfJH4hW9pNZqfplawj8xbcajiJr qzy9fuxx66yP21I45qYRvk EZWbLXJvJBYpSQSdwExkub8waR7 wIi8+HDHwyUP2cGJ4rX5aMNUeYc J5DHagZ567NzOcqJWoUbot e2jeq0jerNx0MyM3QRYkivJlgBp mUHR1h3YdZj81C10fNVogJMTkXJ PqVXAvBWHvsBsadp1vmB8t Ii8+EKCijZW2mWG7vS4xRgHdHbW 9PKotR313UjIsjOFlGpqgN26aS4 JvdXA+XDQdIdd8HDItnOec RB3rsWGjZYpyNo5fWWU5BnAwUjX sLTmjG7RqWRHaoleptpecbMD0CQ QjDZTidL67Mv0ogImeUHBt oZTLdK7yozgbm9xongitVpUiDUX rRWb8HRo1GWNciSqnFmFsSKY9Cd N7COE4wLLirQ9flBmkreqe hG7gT3HmEBFfhdtcAr08oO8zYuR aPdC6UOzaRhm+TVVMTEVOUywgUk HDELXJZWJLQStQQbE0Z1Sq Iac9AUVigMtmGH7jxABvAJhzJa4 seIvmcYehAL8bFUNtxuwbEUApwG 6xAXLbcWGqiNixFZ4jYNIr llooi227ZzKcVQY0WEPmfCFtT7J gdY5cEwTeZFBkXXRfY6RxfVIzNB yaR923SPfmCiR4CTPcymTw U4FqAJLaaYzkPjK8a4Y9Xg5zFB7 eZi2iNAq8QF30TW79vRCno2E6jK C6F8CwXKOkxhpjbvyfpRL8 AWXhNNPzwC54pPEhDSweYk8bz8Y 5y163VGVcFPFpeZ60Ws9kbSrgLO AlfWLHxG2mnkpni8qnafdj OlXeVKAiYNd2PRd8AAWwcFniKyL oHJS6RnY6FPX3iBGagM8xuRunzi tmcM9sBss+MzcgWWVhcnM8 A5TuGql3TXSzvZyuFQ7hxMKtBRf pFl7tnQilhLekRT4hVNRcstdqRG XhqG9oBMSwdXAffHnbTD1l KDRdgnrpq340CyYpUST0LKJkwGF yQ4WqyO5zEiRhXPWqWICnJ8EvsU BxZBiyV793TTylHhX4YYXe lpIiG2BmMQWpqCogQfR5p2T3Yz2 WOY0ZFXK2B5UsSna3RCFtuBhqSJ 4qyXBuUBpzHh0pnOuxjZgd XR9vRKTzsvzzMROfkU2vXDEzeZX bnMhwEO5gHPMqnzbau451GxEuJJ F8FIUuuWEiF0JgfG0fPbNr MPKaRPCgZ7FkzJRdEYwjQ256FKy eRhF3JIPeyjIlL4SoNPTakItfNg I5t3T8Ks5PNUxrE0VpH8Br eTwvdGQ+FH40al09N7MdRjfdZvj 5LRHxPZF0vBO0zX5fICUbMPyep8 C9eGZ8L3JzumFrdv6mq0nh MCTcOGwvH64mvXCue2I2QPUnyOW 2WGRufBnlQzChiG59Bpo+PGNvbG tqb3DwJosdz7uyq2qusCo4 YlIaLCWgdrSisElzLJF2p0HhXb9 4A26eIJmdOXRvDSDzGFYtUMHsiY khuy4qdB3uQv7+PGNvbCB3 aAL9hL3lYsSeBaW8NWjvZ194UvP suNPbDcekl7kbr4nxvYh5WkArOA GapnVtuBjlAWM6v9AhQe32 R5EcpYqjw0EaTwg4dd33rZHuz1Q 3eIJ8X2QnCWXchqzdtJChhUcfDM 9aLFQqgxnyWBZiqA4hUKWa C1e8TdAlAhL5OCgvP4SavtJ2MIC xjMYkBCAtiSYEkZ9wmmmom8yzma naSsJvJJXpMLq9ADh4WCSd rGgmOrAnBXG8JpH3EFI1zCUwrI7 ijErrpcjseX6oIil+KDl8a6jrqM QlVU0bfQS3RS14ON75nUKf b1Z7iZO4V4CiDIModofzlqazzJS 2VXNxJZUqgE12Jh5zpZyzAl8bKS PmVEJ2HQFsuAAyY9FwkZ1s OaWePUPoXOIuL2DpdAXzNMcbJ57 3EYfoQlN1AMFdbcVqJ8TxSMHrvW icWzP6n0C6Nr5PUF09UR84 PQ47eDTxf2R3oLI0W4IbHAOcgsl palmbhZK0TXXrRGBmzG85Wy2usJ qmVv8cOWJyDUU4TTVcxCAe C3ZrsF6aGbRdUAReLKCwJ9BxpPP lVJerP520FLazZsF4KEZszpNgF4 AgSWIhbSurFwQ1z7Y4Kh2B Ic81TF03QN73xECpl8F1qDG6F5Q dFMZlhsbzstmjcIN5MJNvNNXukG 80Jt1npCpzFm4dJXPeGDK5 MFTxtCZkS8JkmV8eQbOqQKWtUWV xV2QmpDQdDQnoU655YWwhJdR2QC PhiiKlH9UjFGEpaHkjZcF1 v1O5Hc4XGSlkbyw9E9PaAyowmAI +NK88WESwKI18sABpkEQdx1ptfU l4GnScCAIzUNO7cGrwPUnf b3J (more content not included)... [facility] Consent Formson 01-27-2023 Consent Forms [id number] 03-29-2022 Progress Note - Provider [id number]#1.00[facility] Coding Summaryon 01-24-2023 Coding Summary [facility] CkwprpdnATq2wYr+PGhlYWQ+PE1 BKSCsX75wzRQfvF0bB2RFTNiEHh tlRJKDGSsZPgMlfaRwVL2doHHqF XJu IC8+WO4uBNXiZoticZSkq1H3vUQ 1Y44rzu8qJZymoWI1OLYvRoUwcn ybd4uwmHh2NOohObxnXkRw IIDzoL44UQK3iD87Se92nJRzwJF gt7tinVi7QrNySWYkTLQ4yKrbND utg2WnFMCsH75agOArs9Q8 MSYbqOzyqCVbMbWxsPD8iF9lMKh exoeuy8atcymqAdo2io49nREyh8 T4rOF7E9EwykI7GCHraOIe RoehvZHYgL1hodhbx6ccqbnhHyT mQLZpJKb2TAa5BIDlzKzdMzMzPH 31NVP8BDPohpZuQ3OsDMDc hUagHfV9f3S2Wj6GC4UOXiovH4U NTUFSWTwvdGQ+YJ94wt54M6ZkUh hiApn0QOVnZPP1aBU0xB6y NESdTPyko9I0gRF9P3WtyfHmei8 dn4juAYOoSAnsS10vhLXwp9Q3SL WvgYH1DOQmyEoiChVsnW54 Oyc+CNTaiDapu4QcMoxsu5otz5l vtAd4VqurTWWuuuHfaTdjCBM2w9 YaOf1vRGGsmMK4hPD5nX7r AkQxBkO1UHyyW314BiIzjSDnZws oW30cJ5PdmLA+LGAeJca6CNKgaC fuUE1cL1MpMZYbnpsbgDTn hCukRZ3iNKNitptzGJEamO9iTTK nN4a8XgNcCyB4IFzfQ8AqILXuot vnAc02uC3wCyTrUlE9VHpz G4MyehE6DLQndMXfFZfhMZM0O83 et2R1YVHiRELqWTE9tNE3bJ5pqX lnbjogbGVmdDsgdmVydGlj JDwfIRalO130UGYsyIwcJyPmHQd uZyBEYXRlOiAgMTEvMTcvMjAyMz wvdGQ+EFDoJKI3wHsmPXVt tILfGMokWq8tdTfevDroZE7jHCK lqhznJSWxwE6aKDDvsHFjoYyqSJ 6fANFfjzidf981DjJxFWW9 CCDgnSOcD3HyhY6tWzTwLYGmZBA rN6VmuDOeQGusL760WRvmWiQ3FB IlayMuW1BgDZPvvLguLmC0 o8W6Ir7Ba1XpewnxL9CgdDOfIbU iTgymCEu1N7RpVkmidDU+PC90YW PsCA89MEx7ESM8iXgbZIpf KRGeB2KliN0uPnSvHFCoXZTlSie +PHRhYmxlIHdpZHRoPScxMDAlJy RviUboAK3aYl5kJIMiMLZx rZppxSQmWeWek1skLMSaZRndRJ0 njHdtV8KjgLA6XVAnt9p6Zn24Z1 2sI4QtdLY+UANkuIX7oJU6 hB9dWlLePkC2WEsmR729UxCwiIG tHphqc3whl9xjdQl5HvO5SGOqya NkxZujVKP7c5CsHk27O74z IHdpZHRoPSIxNSUiIHZhbGlnbj0 hbR5xRl7+RFUhhVH3iAO5vT1wTa NdIeT3JVivC134GcBudKNq Wadpc4uph2gprUn2BhYgANGmszG ftEdcPGE0p7KuBt73A9XmvShst5 OsJnf5hp13cBCmk0X4jNE9 X6UpLCMobtjhaYTllFbnPX3xPNI qquulFAZqoK6gOPChJ2m2UzMlRs B5WUnqP4QxlcD7XBNxnTVm FFEfjFMUdW6cqqzic5emicemNiN hOCJyITi9CTb2TZTsySgdAkEeUJ F8YiI8JBW0uKIgoG6dfTai spzolZ7dAyf+QEX7pNWwvMXXFK3 lOjwvdGQ+VMZvRDR5zSkrZWocLF OpyJ5zUZFuG8u3FvXjWfG8 RDlkC4TizoT1SSEkmXAbRQLswJU DeG3lbvxzp4roizaeTuSwFKVdXQ w0AZu8XLEiaDcwWfZkOWE0 BfR1DQH6uPBqzI5txTnellficN1 wOyc+EzpkrMawDSE7OEo8V2WeEv z1ATCfdDzwUE2krLTvCBsk Zw0paSqktFxcUA3xEUUzjlcgj85 4ZxBpg6keAUSqjHGqYOxbQJF0M4 9gj1B9BJDsLGMpWGV2eHP4 nT1rmKkwbtmdqJTugUkjfpHwoFb iYWcuFDeaB613LUZjxHcrTfWnIH v7F2BgWaw8EHOcoOasQK4a kOUjCXavXj3xuWbytWgoWN8aIVF gonhxb888SrItd1gjNYGryPTjOS snLXJ7R59rw1I2WQRvYDLo BIZ0mBM9hG1oyQogrjrckNBeuXf lyuNjgHxqAYgqZYguB803UXDktX azBcMxeDt9V4LwLwo1KTBc hRztLT1jjQDaOZloPd7byTkotPg jGD2eKWYxjlqdx736BtXfm7yxJZ CuaPMeFAqcFLI4O05ju2P1 KXFvMYUpPSP2gLP3fL2uuBdwwqx gbGVmdDsgdmVydGljYWwtYWxpZ2 46IHRvcDsnPlBhdGllbnQg MLkvBPu7I0TgHdrctGX+EC98MUU uEB03bELaoPYen2iwbLp0DiXcNM DwCGP7xXslNHsbf6VbJMSp H34ysCYjb8B2CWGksEgugYNzPrD cbJM0tT1lVQuvhkjdc6ukyozwUf hnh5qyrw18aR31R60uKFvo NSPwAATtZUCwFPLlsEjasg4hiM4 wIi8+ZIIzxNP1lUB6xJ0tZGHpXw V1IEgqA509JnKtoPYcUkvf m7cpu5kydOi7QmA6EURvduPhwTe pQDR6i5OeBk44C03iRQklOFWkOA GwCLZwTFFymNjwxl2mjO2p Ii8+QQTdtQL7dFS8cX0qJvGwUnF 7ZVorC321ZsHdaHIbLwgoU68kI7 JvdXA+UKTuNay1CJDdkNgq DG5gtYRyNQxbTn1xYRU3OrUiDiT rDMamW9IkPHAdnlqscpumtCE6GN OcFXHozH24Sz7gjDjnANVl zLMQxI5rsrekb8ofkpulCmIrAEO gIXl1AVt7LDGphEshVmAfPBS4Ur C0RWU7lTTdgF2ujMlrwjjp nO9gN1HqHXZbdcxfOe00vK5fFhJ xXrJ8FZpnPfv+TVVMTEVOUywgUk RNGUXQKNULKReROlL4N1Go Xik4QWGlyQfmMC5soPVcYIasPs9 zjDnvzXesJZ9uHGItujrtBUZtvX 0lVDVjbQDgxFidWC8gBPIu jsozn082VkYtWJX1SSMwdPSjH4A loY9mArQsAOGyWGBdV9GnpCLsAS wwT193MYbpJbF3BRQxoiSk I3EoFIXawCalYxP6k8E3Te0fYI9 lSc8yAWp9CM57PG13pLRil6R2jN P4D9OmTLAtlhekpdhuyJR6 ALWzCEIgjX58kBHaLAdxNe8ui0A 8l231YSFuCBVgiX57Jr9vkElgTR KifTPFsO3lgnmpr6exswkw EzHjQDVeAOo1EHf1CXSubQhsAaF fRVO7RmT3XYW6uGSnoL6cwKirpg rztH8lAao+MzcgWWVhcnM8 F7PqOkv9TRCgdEpfOA1zlZHeJDb lOp2amVycbLarFI9tQCNmktjzXY ZrjS3iGUGkmMHpzUufPZ9z YCVgimddh916OgLqYOZ1AVSfpDG xZ7ZnnO6mZiGvXNZfLFXeW2RlpY WsLOdpN469XHkfAvP2AYYc feBmN1FaVPTcnUwsJbT9d1R3Ee1 QEP2RGEX5G2GiMni4QRMzdIhlJX 5kpYGqZQqxPl2nrIivwFsw PB4hKDIiopdfEDFcoZ2vWYLhrXF wyPhzMG7tZPXiatmbr313XwWjKQ A1HMYyuJNcH4KctI7mBmVt DBEnXSSfG1CviCHeIBttQ440FNx qJiN2USAqjhPvG5QyQCUtnPdtBa Q8v5E8Gk5QXUlswBX+PC90 gr92C3DvXmclCeu8HTWvERP7xRI 0lN4bCIUsMIgjz8C7mLH7V2Qwfl Kikg3np8ddMTLjGXvlT83l hJIsx4Q0EENhlDT4YNLptUtbKfE tnR12Mev+UOVqyCsxh2EdQupou0 slh8oyfVm5EsYaESZpykOl rYzqPDN7s1RqCk10R61qOIftLCC qCVIfCEJnXNXhjJyofa2gyB6dGr 8+PSLfgIQ0tFZ0kU7dIjDu XoF8XRjdR947HzTayQMtVyhei6m jt1cdnYp5JwFrUFZoqdLtsKkuRF A6i3ZiPx66S3HkdCafr4Wx Xsd6dm28eIUre7J2dUQ4E8CdVLD tvszfjFOhdNwfPO1fBCXumghsDC VawZ5pLLVgU2r5KrLmBwT6 EFegO7PrihR4GECphTVyCOMkhDC MeD6ohrjho3ztgxnsThKuLCXsAL y2UJf0XQRlmVxoWeYaZKN9 UoZ1UKR5tESvxA7cwHhvnjffjP1 wOyc+NHw4w4mjaDAfVS6hyQK8TX 87VH83xUFms7R9hWJ7C6Wm FEBfqwdtsjygmZS6HDZqEQUxlC8 9Fm2yzFclDo6iWDUwQRH3SVIptX ByT3MstR7nSqXrTDXfHIOv G8UkqIDaZRudW710XDipPnG7ZZM ofoNxO0GeREUwgMbiWeY0r8Q1Lq 6MAT48HG74QU81eOBnm2Z6 eWR9U0EoMJBghyvdlugolDH4LZW uDYLwfD27Eb9wkNwtKe8hABXeXA G1KJSseTIwK7VkeD8pFrPz SJVyZAHeN0EiuLBqELfpN854QQg tDcP5EDQrplCsP5DeRZXywMqiOa C1j2D5Va4YOy73TW47KQ02 oTHuq4B8rRP7Z1PrZMRluewqnqy xrMC5VHHsMBOixZ22Ao5vvZrpRf 1zKJOeMDS4FXPncPIhN5Ru jG2hTbIoNIXnFHAiV8VpiPSfWRh rU338ZKctGoG6FREisgVcO5OhJF VijDrfPyO8d3W0Cv2EQHng sbl7T6GfLdhvpRT+PD30LIOmTN3 0iXPfdAOwj4opgSw5HiObGNOkBM F8fGelYTesu7JfEFPqV12r bGF (more content not included)... Normal [facility] Inpatient Patient Summaryon 01-24-2023 [place] [address] Patient Discharge Instructions Name: MICHAEL RAMON DOB: 1985 Patient Address: [address] [place] [address] Primary Care Provider: Name: Thu Baldwin DO After you are discharged if you find you have any questions, please, call [phone] ext [phone] to speak to a nurse. Discharge Diagnosis: Prescription Information: If you have been given a prescription for narcotics, seek immediate medical attention if you have any difficulty breathing or any sudden status changes such as confusion and sleepiness. If you or anyone you know is experiencing suicidal thoughts, mental health, alcohol and/or drug addiction problems; contact the [facility] 30/09 Crisis Hotline -Text 4HXNU av 003039. If you received any narcotics, sedation, or [...] business decisions or sign any legal documents [facility] would like to thank you for allowing us to assist you with your healthcare needs. The following includes patient education materials and information regarding your injury/illness. MICHAEL RAMON has been given the following list of [...] Prevention S (more content not included)... [facility] Intraoperative Record [facility] Intra-Op Record Summary Primary Physician: SAM HERBERT MD Finalized Date/Time: 01/24/23 12:15:52 Pt. Name: MICHAEL RAMON /Sex: 1985 FEMALE Med Rec #: [id number] Physician: SAM HERBERT MD Financial #: [id number] Pt. Type: D Room/Bed: / Admit/Disch: 01/24/23 [...] 2 Entry 3 Case Attendee Thaddeus MORGAN, Freida Rodriguez RN Ami Baker RN Role Performed Inspector Metal Fabricating Inspector Metal Fabricating Inspector [employer]ricating Time In 01/24/23 12:09:00 01/24/23 12:09:00 01/24/23 12:09:00 Time Out 01/24/23 12:16:00 01/24/23 12:16:00 01/24/23 12:16:00 Procedure EPIDURAL STEROID INJ EPIDURAL STEROID INJ EPIDURAL STEROID INJ TRANSFORAMINAL TRANSFORAMINAL TRANSFORAMINAL LUMB(Right) LUMB(Right) LUMB(Right) Last Modified By: Ami Baker RN, Barbara RN Long, Barbara RN 01/24/23 12:15:48 01/24/23 12:15:48 01/24/23 12:15:48 Entry 4 Entry 5 Entry 6 Case Attendee Samreen Means Melanie N Adkins, Valerie MERCADO CST Role Performed Inspector Metal Fabricating Sausage Stringer Scrub Personnel Time In 01/24/23 12:09:00 01/24/23 [...] Other Concerns Yes Implemented Addressed Time Out [place], Valerie E CSFA Time Out Time 01/24/23 12:10:00 (more content not included)... Normal [facility] Preoperative Recordon 1 03-26-2022 [facility] Preoperative Record [facility] Pre-Op Record Summary Primary Physician: SAM HERBERT MD Finalized Date/Time: 01/24/23 12:06:06 Pt. Name: MICHAEL RAMON SHAQ /Sex: 1985 FEMALE Med Rec #: [id number] Physician: SAM HERBERT MD Financial #: [id number] Pt. Type: D Room/Bed: / Admit/Disch: 01/24/23 [...] consent correct. General Comments: Pt arrives to W ambulatory. Denies CP, cough, cold, COVID like sx. Denies diabetes, pacer/defib, PRAKASH. Pt verbalizes understanding of post op instructions. Finalized By: Ami Baker RN Document Signatures Signed By: Ami Baker RN 01/24/23 12:06 [facility] POCT Glucose Levelon 023 Glucose [Mass/Vol] 130 mg/dL High 74-118 [facility] Comment on above: Performed By: #### [id number] ####[facility] (DEFAULT)[address] [place] [address] Patient Handouton 01-24-2023 Patient Handout [facility] ED Clinical Summaryon 2022 ED Clinical Summary [facility] ? Urgent Care [address] [place] [address] Clinical Summary PERSON INFORMATION Name: MICHAEL RAMON Age: 37 Years Sex: FEMALE : 1985 MRN: Acct#: Visit Reason: Medical screening exam; [facility] F/U - RT FOOT INJURY Arrival: 01/22/2023 16:05:44 Discharge: 01/22/2023 17:00:00 LOS: 000 00:55 Check In: 01/22/2023 16:05:44 Checkout: 01/22/2023 17:00:00 Address: [address] [place], [place] [id number] PCP: Thu Baldwin DO PROVIDER INFORMATION Provider Role Assigned Unassigned Catarina Meyers RN ED Nurse 01/22/2023 16:08:55 Mati Bell-C ED PA 01/22/2023 16:16:35 VITALS INFORMATION Vital [...] Patient/family/caregiver verbalizes understanding of instructions given Comment: [facility] ED Patient Summaryon 023 ED Patient Summary [facility] ? Urgent Care [address] [place] [address] PATIENT DISCHARGE INSTRUCTIONS Patient Information Name: MICHAEL RAMON Age: 37 Years Date of : 1985 Reason For Visit: Medical screening exam; [facility] F/U - RT FOOT INJURY Arrival Time: 01/22/2023 16:05:44 Primary Care Physician: Thu Baldwin DO Attending Physician: Mati Bell PA-C Comment: Patient Education With: Address: When: Return to this practice Comments: 04/08/23 at 3 p.m. Medication Information: The exam and treatment you received today in the [facility] Emergency Department were for an urgent problem and are not intended as complete care. It is important for you to follow up with a doctor, nurse practitioner, or physician?s quality assistant for ongoing care. If your symptoms [...] so we can reach you if necessary. [facility] Emergency Department has provided you with a complete list of medications post discharge. 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 and for further instruction [...] (S90.31XA) Hallux rigidus (M20.20) Medical screening exam ([id number]) Sciatica (M54.30) If you received any narcotics, [...] sign any legal documents Reason for Visit: [facility] F/u appt Allergies: Substance Reaction Symptoms Type [...] Infection Yes (more content not included)... Normal [facility] Urgent Care Note- Provideron 01-22-2023 Urgent Care Note- Provider Patient: MICHAEL RAMON Age: 37 years Sex: FEMALE : 1985 Associated Diagnoses: Contusion of right foot; Hallux rigidus Author: Mati Bell PA-C History of Present Illness OCCUPATIONAL HEALTH FOLLOW-UP Date of injury: 08/26/2019 Claim #: [id number] Employer: [employer] Mechanism of Injury: She was moving boxes of celery when one fell onto the top of her right foot. 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 who is seen today in follow-up for a work related injury. On 08/26/19 she was moving boxes of celRosalind when a box fell off of the cart and landed on the top of her right foot. She was initially on light duty per [employer]'s telehealth visit. When she was not getting [...] 80...: 1 mL, 0 mL/hr, Local Infiltration, Tail Sawyer Prescriptions Prescribed Lyrica 50 mg oral capsule: [...] History Medical history: Resolved Lower back pain ([id number]): Resolved.. Surgical history: Epidural block ([id number]) on 03/06/2022 at 36 Years. Comments: 03/06/2022 10:33 Dana Conklin MA RIGHT TRANSFORAMINAL L4 AND (more content not included)... Normal [facility] Rec[address] 023 Urgent Care Record [facility] ? Urgent Care [address] [place] [address] PATIENT DISCHARGE INSTRUCTIONS Patient Information Name: MICHAEL RAMON Age: 37 Years Date of : 1985 Reason For Visit: Medical screening exam; [facility] F/U - RT FOOT INJURY Arrival Time: 01/22/2023 16:05:44 Primary Care Physician: Thu Baldwin DO Attending Physician: Mati Bell PA-C Comment: Visit Diagnosis: Diagnoses This Visit Contusion of right foot (S90.31XA) Hallux rigidus (M20.20) Medical screening exam ([id number]) Sciatica (M54.30) If you received any narcotics, [...] and treatment you received today in the [facility] Urgent Care were for an urgent problem and are not intended as complete care. It is important for you to follow up with a doctor, nurse practitioner, or physician?s quality assistant for ongoing care. If your symptoms [...] so we can reach you if necessary. [facility] has provided you with a complete list of medications post discharge. 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 and for further instruction [...] for Disease Control and Prevention November 2013 [facility] Coding Summaryon 01-21-2023 Coding Summary [facility] 64 BtddivjrKKc3cKr+PGhlYWQ+PE1 SQLByW37euBDwxU2uI0LGOIhDLx syWNFLPNnYEjYmhzAsTK1xoVUrW XJu IC8+BF8nSYPlMtvquQRiv9S0rRD 9B31sgg2rNJvkbYE8RBWlTpTzuv nzl0lxeTs1EJmqJhpvJvNt CCMzzJ53JJP6yA83Cx22aISvfFW se4kibIl4VgCzMDXjTNS5uIuoUF ajm6VaDEFzV95cqFSth7U1 TDXbnTcomNVhLoZpiQO5nK1vOCm cbalbg9vjxpgwWwx6ht27sJBcj0 N0gQL2C4CzstF7UCRzsIYt FteejZKQrC5bwvfgb9lczozdDsG oVTXhMRc4ZFq9QVBqjHwsPmHdMV 06JVO3OTUjmsLtP0MeDWNy cNurLhR7z7P0Bz7LT3PGWxskH6H NTUFSWTwvdGQ+UE99kx90Q5BcAq toOqk9GUInWLM5wBC7wU9o YKRfEXgpq5S8gSF6C2VgijWqty0 uf5jgPBZsAHdbU37xrLFkn4Y3XO BksIL8YZSolZvfVyXinE43 Oyc+ZAUgfMggf9FqBzpfh0lxz7c yyEn1LuvwGHBvyyOokGlySFZ3l2 OzNl0yIUUroQL6jBJ1rH0q BiAjPmH6QRzcQ558NvAupIRsXrc iQ75oA9GpuRF+KEZqLjy2MDGjnF ljMM6bU0OgJIIziyzayMVp xYgkEQ0uZKRiejekMZFuiQ4bEGG hM4w1WyHxAoI1SVzkP4EsIVRdmv yaVx63sI9oIzAuXeN5RVjk S5EgzhK4EZLowXJvPBrmYYG6I85 yx1M1SBTiFROuMLD1bGC3rE1lhH lnbjogbGVmdDsgdmVydGlj GBlnABvbG691ZVMrtQhpFtCuCYp uZyBEYXRlOiAgMTEvMTQvMjAyMz wvdGQ+BGMhPUW1pSgfOBOy bMJwRVcmAn4ueBupoIsyJV3pUBR avglrNPHndF9fBRFxjYFihGpmOM 1iEQRxfiady867EjRdQWS7 GQKfrXNoR0XnkT3yJuXoZRWlHCK rS4MgsXDqTAzpO528OCbuSsD4SC AjfeMxZ4BfBVBczZxhBdO4 y6G3Fj5Mq2SkjnjtY5LjzMRaOtS fKgawDPr2K2EgEwcnsDQ+PC90YW JtMP57DSb6FOJ0eFcnCNfb FIIpO0KyyE3jXvBzBGRvHWApQcu +PHRhYmxlIHdpZHRoPScxMDAlJy UbhRgjEZ2nOt1dABLwLFHg dNbctKHfKxVzx7rtEBQxWIirPO0 rsJouA1IhkYI8YJQwm2v4Iu32F7 4nM2KceNZ+OHRinES0hEU6 dS3wLnPnTtQ4MKcxV521RtUlbPA rCnzdf0yhw6wqwPs2SyU5BNGzmb TneFzxGPU5s0MwLg06C20u IHdpZHRoPSIxNSUiIHZhbGlnbj0 ekV4rDu3+TXZlzHS8fPL2lH0oCj RrZbQ9UJmmB051YsGnfLSx Ypnxm3xug6fqoCg7HlMxPZPptdI vuJazEJJ4m4UjIk95M7DfdNhxl0 GiAag6kf95dKMao8K9vAV1 R9DnSRJzlhzowOWluVnpQP8kFIA sobbqTJDziH7rLBVqZ3y6PpLwQe B1TXqpS6CzaaO5CAPbpUVv KGAsuQYInL4udbtip1zryhtaOiD uHCVuBXb9CJw3NZWlgHmdLmNiNJ O4UbU8XDG4uDWtbR1xgCqq abjhuY2gHle+HXQ6dYNpeANQYB3 lOjwvdGQ+ELBeHWH7mXccEEheFZ ZhsE8nHHOrX3o8OaPvTbV6 HZouM1JxnkR8PHPohLNvHFCmhTD QuN4ieputv6unkeybHdScQRTtHA h5GQj9EYMfiHzpVdRxOAA8 WfL5JCQ9cODenD4iuCjygygftA8 wOyc+SuspeYyrPNK8QXh1V4KwCk x2GTRdtSfkQW9amHMwLKjf Ej3nvRouqVmbSE2sABStwzzbq57 9VqOtj1ibTKJhqMTxGWyzJRQ9J2 3tf3L0CBLaYNRhBSZ9gYE3 jZ5fwFxoqjtceFTxcAeayxXkaMx cVQddGBfvD798HGIawJqnQjPgCM p5V8RtBia2YCRubFgfPW3j sOSdUFfvEo5bbOqaaFpmAD6aUSN konxsq288BoLig1eoFYAcqHKcGK luOKM8M83ti6H3FCGmVZHf DJH1iMW1wK1iaZyqcxqtoGJenIq gdqRneGpuZZjoJLobH200ONIyoB jzVlWwhKr3B2MqQiz5KWDz dYgfUN9paHIlOEqgEz1zlNrlwDz lUM2uVRQtldarx616XcZtd9qhMG ChjJXnVJloOZT1W13lh5P4 SQVrDOTsLKE4uYU7yC0cwMaasmw gbGVmdDsgdmVydGljYWwtYWxpZ2 46IHRvcDsnPlBhdGllbnQg ZHfdTSy5V1OwUsqnvXI+DY76LQI kCB22sBMkwBTgt5doqPm4QvXkGA GgXQN9yZtlUIukd1NhKASg O88rbRUda1E8CCUeoKcqySPoIpP fkDQ7hD3aGZfuiofjm7tofqzeMa lcg1lvmg04fM34F85sMNvw RVIbJHOzMTNsBHZxyKyppq0lbK1 wIi8+BFGbpZO2qSM8dJ3hNSOcXr B0RTbtA296KqCawAFjKvnf o1hep6lhqCd8LwR7CCXoahVzwMb oDUK9m0BkEu42J77dGXpgNVYcZF TeBGPtDELdwChjnf2akW2d Ii8+RKJrhMM8jCP4uX1eCiLfAsL 2OYedE194YlVamWAlVponS89dL7 JvdXA+ZGBsGps2CUGioFkx LI2hoYUhCMapYj0dSQI3IbSrKnQ hKInfS7RiZDXzbvrkvzrftIL3UV DgPUDhjC73Zo0mkLzqNJAy gFMNzO6vmcnlq1isdurqDpVuQIB qXMk7RQp4XWPtuYuqOcUgREJ0Rj X0HQI8vHNgqQ6xmScunyfv aS9xP5GpPXBaxaruGn03bY9aBqM gMxP0THbfCuw+TVVMTEVOUywgUk BEJIXQIVIRJHiQPaD4L5Xq Qls7TJPfdLfhRA2saHWcCIuuVw4 feZtcuIssLO1dGJAsoeoqSXDkvP 5xIUZtvBUnwInkGM9sQMUg vwadl975RyTbQCI2KRYyyHLwZ9M asU0pVbWqTUYzXUWoQ2HjlFBdWL ldF472QTyvWiG4WCOtnnWx C4UrYXAsfMrxOnW8c6B7Vk6gMB2 kWg7yYIm7IV09DT39nSNik8H6jG U3C9GvXGYqatajnnmehVS5 OYLkPSUqyC50qHAsAFcgBd0hf9N 8e556TPZoCMBdaV60Bq1mqWobRQ GziOWRxK6djhjaa1vvxxkg KyXyERBbNLw9EXk6BRNypXboXiF fABM9PzJ3NEJ0mOLseB2bbYdinq zxgG0lFov+MzcgWWVhcnM8 U8JdUnd3BGNzvHfzDS0puCKrRGg dRo1jfQvkuYyuOU3rPWUproroZP PzjJ0pSGFelNBkbTorDM5z XLKznkuax156UkIhSUV8NSQrtYN iM0SxxX7gYzEdPJXaJJBwV9GmrN LqICmgG446WTvqBlZ7FBTo wrCzV9JhOFNoxAmoSfH6x7I3Ol6 AZN6AJKI0L1EcUns4OILbxAqyZB 4rjYKtCHweCv6dyRyldLnf PT1iPKYjmjxwBVKqjH0wNWAmbTX sjXqqTU6eGYRyboapj458QcQkWY Y6KOKccXSjQ2WckC0yXqXf PKKsLJVkH1QjiLXcFQbwM623JBs cKwY1MGMwaaBnD5EiJBWsjIkbTq Y7n7T0Mk0SONT6vqBayioc R8D7mTG9oPAftHzcoLI+XL24fk8 1T2YbDfzmFqd5MZTjRRS3dLX0dL 0aTYWoOKalh9K6hFG4V4Ao ccZbay0vu2ncZUAaUEedM33dcQJ wy5H0WJHfgEC2AJFkhNvoBmIbqP 93Oyc+TJHqnUama9JeGfdp b9jii5zxhGo8WbWwZQJwjzJdiZp lABC0x8SiTh16K81yUNatPCYmJL QuHCAbUMAgtGvkrs4zdP5h Ii8+OONaoOX4eLM9aO1sZoMzBhF 0UEzeI903OvKkuACcZxibt1rro7 cejUb3FsLtLNSffsBbuWqe XOW0h6MvEf36I9LerOecf4CfPwz 4rf83eNBnm4S2lBV3H0PpIZJlgr aygNItxNcxPL6kSCCbaxhb IRXvsC1cJFIaC0l6ZvYjUnZ1XWd lQ3LwvtZ5HFCrhDFtRARdxNWHfF 5qfqtze7nrlhgyPhCcMFBm PHm0SJu5TDWrnIsjXsVrZAO5OoT 9VVX4fKOsvW2jpTbwymxxjU7vCa c+NYr4w8fckZExDW7baMV0 ZI70FD53wKFbb4S1lVS6X7JuLOC moycucexjwQP9PHKrGTPbzG75Eb 2uvFdfFl5hISDoEMV1GWNe iAAcJ2YrxW2nZcRuMUOpQWJoP0F auKGwAEbbU827NBlwOpI8PVRbmp WqJ9NzGMIqxWtlRhG6k8E4 Zt1YDF58AS74XX08wDYts0H8yPN 7Z0DfDSQiaseewrwsvUB7BQCwXH NufW95Oq3ngZfkIs8jQWDt HMG4VILweYBoT5HlqP0oDdNnPWT hGTPtA1RtyTRwSBznT439GRugKh V1AKAythKvG6OoJZAfqRfq HlZ0n0C8Fp4TRf21PL47XA65qNB jl8Z5aDP8K4NuXIArujymyyrbbC W3ASDxSHFhtW05Qz3fyImg Ne5xPVBrDNU6DQVswIByW6UrrD2 dMgOfQEHqYAWcT6JseVJyWRkaV4 43VXngMwM4ZMAzapTqP1Me RXDlkBpnIoB6u6G0Bb1NIYnnugo 6F6CpEggzyOM+XM71OZPcXA55cK InaKXfy4wxnSf4TdUrSFCb IHN (more content not included)... [facility] Progress Note - Nurseon 01-08 Progress Note - Nurse Pt called for refi ll on Diclofenac into [employer] [facility], pt compliant with OV [Electronically Signed on: 01/20/2023 10:07 EST] Josefa Schuster LPN [Verified on: 01/20/2023 10:07 EST] Josefa Schuster LPN [facility] Coding Summaryon 01-14-2023 Coding Summary HTMLBase 64 RxtrkfjpKEm6eHx+PGhlYWQ+PE1 WNVVhR98fbXVlaV3vO9ZJVReLXx smWPJGIKpPHzNiuqYqTM7lbQXnK XJu IC8+CG1kZYHxSyjhzSYio4O9mLL 0L04tfh3eBSfhgRK8KEWoSaAylh tta4tryCf2VBxbUgtkZzHh HHJddW75MSQ9oK11Kh54eAUcmVW dj7qztIt7CwSdLIXtEHR9kOytVW mye0SsFOLgC72syVMsd4P6 LKMsjVzgdJPhMdWsuAC8xI9xFOj vtyuff4qmltwrJqt6cr29iGUld1 W7qJM5V7YwxzM5CVIcxHSl XzggcUHPfK2bzuqpw5hzdovpZkT jYFKuTVm0EPt2QXNozHokPyIvGA 73XYY4ODNudsKvZ0SxYKIf kFauCyZ3f6C5Bi8ZC0EZWigkC9E NTUFSWTwvdGQ+JU05qk27N5DnQk vdTso4DNRmNQT1lBG9yZ3q NDLbYEwhk4G6aXU3S5LsggNbxg1 il1ahRJMxGKjcG31snTRdf9D0BU IlpPA2KSPzwYkdXaMagU38 Oyc+PGHzjAviu0UwJbply1ezd1j elAb6TvgdZJSpdxQvnInvEZM4x5 MwEm4gACMkaZH5tRT4pW7m XaKrNrE8MHcyL017FiTiqPFvIjl wI67qA8DjnSZ+LVIlQsg4DEHqvN mtMI1qZ1NiJWSdixntpFAe gFypGS4uGRXgnkxwSCDtwO2sCRW kR0h9KrTzZfG3QHevF4TkXDEilg lrRy29hO0sAfUlImI0VYqj P9XjnvA7ZCThkNUsJHtkWPM7H63 no2B4RYRdLBVhOCZ9yCN4zW2wkF lnbjogbGVmdDsgdmVydGlj QMgiTDlfR954KFLncNhsKtYvVGy uZyBEYXRlOiAgMTEvMDcvMjAyMz wvdGQ+HRWhMZV9sLfdHHKg uZIwIJcgJc6rsSgltZnpDD0lAYO aieozYSXcaB2jGEIjpRBljCepSC 6wHXDkprrmv979TfOzQTF6 OFKpiDJcZ0VcfS3lLeCyWTExLEL mM1XfyYMtXPhcH631IBevLsP7SD TrjkUzJ6PpQSJdgBahBsX2 n4O1Xt7Eh0WygcbuU3IjeIBmUxY nMattVCc6E9MpEywadTS+PC90YW AbQJ34DVu9USA5xAknERfh MMDrX4IeoF2aJmEyFCTaKGUgNzn +PHRhYmxlIHdpZHRoPScxMDAlJy TudXqpHG9eFt4jZFTjGVKm wLbiyMErXaFun5rxBKJsIDpsSE2 nsNteY9NptCV3OYQxj3d9Ec89W8 4iG1CjgON+BMZxnVD4hOZ4 wS6jJuNqAcD3EPxmA551JpKjmZY uGfbgk0vjp4qfnPc1YsL4GYXfex WxhJhaSUH1r6MxBu45J59s IHdpZHRoPSIxNSUiIHZhbGlnbj0 hgT2bLe8+EEGuoNU2zKG6bM2gWe HiAyT8GJbmA522MlNpeONl Cjfwn3axs9ilqVi6CgDwYZUuacF ocGswNMS2c1GaQm12M5ZcjWfpq1 WlSmz5uf27xSTrl3M2eHI7 G7SiGGArejjrdFGnnTsfTQ6qGOM smcenGVGzgT0uSYMrY5y0CrMzOv U8SGuoM8YxavC1VBOcvVXm BAWroVZSwL1avryes7xbqbgkYfE eZLIvTHg4PYq2YLVwxPkiQtUsTT W5GjD7DXM4xAQjiT6bhGgd nfkvyH0tRlm+FDA9iZUmlZXXOV3 lOjwvdGQ+NKDcUEZ0kGacPKzcQP GdpQ5qYUGzV7s6JbHpBzZ8 ALquH0HaxgU4RGVjeAQmTBKuoLA LgF4uxiomo8uniatrVvBrZDVrLK w6LEw9AGEafElmQsRpOKT7 McF3VGW8qOVroC2cjKcmuggshY4 wOyc+KqpilTxoMQS2ZVp6V7LqUh m3ZMEcpJucJL5fpXYeKZac Vc2vcFdmxJzpBD0hJMOxlvzew64 7OfUmc1hpDKMeyCVxWHhrJEK2O1 2ao7W8IWNwFWZoHPM6rSI4 fC6krBabsseqpTXdeKlseyTbvLv yCJuwXDfbB120XFOlgFcdIvJfZG v8F6ZzKua0FRUtjNvaAM0a uAUzSCyuYa9qvMdztHyiZF6iLDC jlagrd206HzZmv2gkYHLscOOpON gcYFM1G77vo5F9BQPpUHKs XOM5iQK4sT4twMetejnqgMDuoGw avqTmsDxwQUbrVWogR775TTQgaU qwMaZnhHh7D5DgFld0FZJb eYdrNV4viAZaGUgeBj8bfQdywXo jQP3pUPVnemlww552HrRcy8xwVC VpfFCeMTbyGRM6B20og9X0 GYPjJJZwESB9uVP7gD9elTcixji gbGVmdDsgdmVydGljYWwtYWxpZ2 46IHRvcDsnPlBhdGllbnQg PWsnMLg4I9DnUjezpKU+SH46KIF hAY49bNCjrQCrc5rhkQf1QgAsRT OuHQK3vFrnGWvxj8CuAZPy Y44enHSex9V5JLZjtMsdwFIvHaL qvHH9iT0pOLremllbr6uftrkvVi vzy6opem28hC08E86pIOdx FSSxASGbGDSgEGMucGspkh1udG3 wIi8+DHDkxZV9jZI3tV5rKRAyOh A5MEfdY627JlDnzKSsBaoa l2hcg9zojGi5TfO1PBPevhXtxOe gZDA0j3LsYq76S25cLYusXGWtGE UfYNZsXDQpxGmpdj0erO3h Ii8+BZKhbST7vOG3iG5qBrYoDyX 7TGphM826AlZifYXcJhpxS15sQ0 JvdXA+CKPgPee3BLZvwGgi GG1ruRPyHKgbSv1qLWR5TmEoNoX jNDnhW6VnOGLjesknkjldzYJ5HJ KgJIRjzC71Zl0aeBcgOITf tQOVrA4rfprvh6lerxhiJsVuOJT lPHw8OLc6NDNcoIckBhHpFOT4Yh R0MRF4fISgfB5mhYipconk yI3eP1QoGIDolungNo39pC2pNmZ qLyC5BVohUkr+TVVMTEVOUywgUk ZAOCEOTBDRHKoHVeZ7B5Wv Uwg2BIDjaDxkWH1ssFEnMOlbAz7 yyTowrKefBO0xPAGidlvaSVWrbT 1nRCHgsYOooLbaRO6dAQRx hedxl463YgPmYQZ1ARBvdNUqB1V duU1bQkWhRDLbWTZjN6JszCGuQI lzT344VLqqJfT6DCUmnnRa T6FaMGBeoBtiKhG8b3F8Yw7tOU0 sXb0nBYb3XG81KB02sBDbt9P0hT X3E0YmHZLqconkthixkZU7 EYWpLYHpcS57gTUwRHlfNz8fm6G 6i043LRScAWXqoT15Fy1hmMwkJF BvgLFItG3zbqewm3bseley MyIbFRUnIBz9CZd6TZWrrPsoUsF jEOV2YmT9YOO4qBTjjL5vxKoauw zbcY6xOmw+MzcgWWVhcnM8 S0DkYrp1XQRjyUfySM2shZLuZLh uGy5ifKdohWbuCR2rHWBscltwAL EnpL8mEMXnvEPaaBljKM2o WKOdfmtpv285JmTcHUH6MIZweWD yT0YolO3oMrYeIMDwRRNfI1DpkG LeSOjdX552GXbuNnA1WAAu meAmM3AvUYAtiZwkBpH7m9W9Ri1 BXS0AGNU2T0MiCue9CYUfeSulBT 1zaJTuRIhmBj8frOaqoCrw HX5dFPLfisyvFERjnW0fLDYeyAW szOrdBK7mYNBnrktpa335IcFiTZ U3DWHueUXyJ0ZalK9mDuEe MFVzXORiR6LwpCCvSJkiA017IXb qEqK6RLIyorYbZ6MoXVEzhErnDk R6z4V5Au7ISHF4dtDuykwf W9X3lCF2nZAgyUuplDD+VP89qk1 1A8TmOmlaEwg3PFEeLRX3qKK3pB 4mZAGaZHlnt3S4zVC7S1Oz ltOtoa5oc6hdFCSaRKqwL32dnKT vy2C0PMBpyVJ5OSBryHbiBfFafT 93Oyc+NPYcwGlui6TrAihp i5eie0keePq5TdEfEPVfglBxpQw uLML5v9UwGx81M94wCChxBCCsUW VkDLClFOPsqPdlbf3haB3q Ii8+WIPpuXH3aZQ2bX1hGjXlTeM 2EMytH945YvUvpYSiImpgg9ugb5 xgtKv5DcPeBZSubpUifAcr NUN5t8CiUk38T4VztMbzr0ClQtg 9jm27dJNbb0H0pKG4Q0NrTXVwud adjHKisGsqMH2fLNTvydjv FNLkkL4aPNVmA5i6RzDoMsV3ZEy eX4UysyO5HCTcrEBpQINwgKVNrG 4gyiurv5ktxihhMeUzTTVo THa2GWr4HTXfsRrlJkQzIYR5ImV 8AIB2wTKeuP8oiMtkcfyjjC3bVc c+GRi8l4lfoLLyXW5eaGE3 CQ33UO11cLIis1S6jVS2S0BoHAW jgzsqxpnijGW4JTQcDNVwuI04Br 5fmZsqVi8hOWRlMXJ8PIVw oDHhR5LdfX8iUcFrCSGdHDCgN0Y xtGFwKGdjJ083LHagDkK2VWBday HjC8GqEKGhqYlqNrY3y2V8 Li1OJT19OU39WU62gSFqt7P0kPL 4Y3QdTDVfdiqhlylhiSC0JKUoTE XkiQ59Ym5enOszUr8uDEXt KMV8QSYisGWqN2SupD8uOlFbAUI hAEGiZ8DpuLTkLAdkU857ZSdzNg K7JQJehoDqL1QdENZltWel WcG4p7X9Ue9WVw84LR60SM49hWY tn1C3eWR8I5FpXRQrsakolydyuO G2KIRhMECxfV56Bo7fnKjj Nf6xYUPlXHL8OQAroSQjM7YvtY5 jFwCaUKHqGDXyL4GzmMDyBRjmP3 19MHgvYzW7DEJgiyJbC3Mi ZYCxjPgaCoR9s0K1Ld8INIubbmn 0S5QtGtpgvVG+FS09WQCbPY52bO PabSDll3affHv2XlGtQFKp IHN (more content not included)... [facility] Physical Therapy Noteon 11-0 Physical Therapy Note [id number]#1.00OTGTIFF [facility] Physical Therapy Note [id number]#1.00OTGTIFF [facility] Provider [place] 01-09-2023 Provider Orders [id number]#1.00OTGTIFF [facility] Progress Note - Nurseon 10-2 Progress Note - Nurse Patient called req uesting refill of Lyrica. Patient is compliant. OARRS is reviewed. Order sent to Dr. Sam Herbert for review and approval. [Electronically Signed on: 12/31/2022 14:36 EDT] Thaddeus MORGAN Giuliana G [Verified on: 12/31/2022 14:36 EDT] Giuliana Travis RN [facility] Provider [place] 12-30-2022 Provider Orders [id number]#1.00OTGTIFF [facility] Physical Therapy Noteon 12-08 Physical Therapy Note [id number]#1.00OTGTIFF [facility] DECLAN Antinuclear Antibodieson 12-24-2022 Antinuclear Abs, IFA Negative Normal . [facility] Comment on above: Order Comment: Reaso n for Exam HAMMOND (nonalcoholic steatohepatitis) Result Comment: Nega tive <1:80 Borderline 1:80 Positive >1:80 ICAP nomenclature: AC-0 For more information about Hep-2 cell patterns use ANApatterns.org, the official website for the International Consensus on Antinuclear Antibody (DECLAN) Patterns (ICAP). Performed at: - [facility] [address] [id number] [employer] As[employer]er: Jared Reeves PhD, Phone: [phone] Performed By: #### M ITOM2, SMAB, HEMOCHROM, HBSAG, L-K MICRO, DECLAN, HAAB, IGG, HCV RX PCR, HCBIGM, CERULOP, HAABT, ALPHA PHEN, HBSAB, HBCAB ####[facility] ,#### SLY ####[facility] Asb7622 [address] Actin smooth muscle IgG Ab [ Units/volume] in SerumOrdered By: Imad Asaad on 12-24-2022 Actin smooth muscle IgG Qn (S) 8 Units 0-19 [facility] Comment on above: Negative 0 - 19 Weak positive 20 - 30 Moderate to strong positive >30 Actin Antibodies are found in 52-85% of patients with autoimmune hepatitis or chronic active hepatitis and in 22% of patients with primary biliary cirrhosis. Iloyu-2-Vghuudaojnv Phenotyp max 12-24-2022 Alpha 1 Anti-Trypsin 184 mg/dL Normal 100-188 [facility] Comment on above: Order Comment: Reaso n for Exam HAMMOND (nonalcoholic steatohepatitis) Performed By: #### M ITOM2, SMAB, HEMOCHROM, HBSAG, L-K MICRO, DECLAN, HAAB, IGG, HCV RX PCR, HCBIGM, CERULOP, HAABT, ALPHA PHEN, HBSAB, HBCAB ####[facility] ,#### SLY ####[facility] Dcs[address] Phenotype (P1) MM Normal . [facility] Comment on above: Order Comment: Reaso n [...] Ranges used to confirm phenotype. Performed at: [address] [id number] [employer]er: Jared Reeves PhD, Phone: [phone] Performed at: [address] [id number] [employer] As[employer]er: Janiya Caraballo MD, Phone: [phone] Performed By: #### M ITOM2, SMAB, HEMOCHROM, HBSAG, L-K MICRO, DECLAN, HAAB, IGG, HCV RX PCR, HCBIGM, CERULOP, HAABT, ALPHA PHEN, HBSAB, HBCAB ####[facility] ,#### SLY ####[facility] [id number] [place] [id number] [facility] Blood or tissue HFE gene mut ations identification by molecular genetics methodOrdered By: Job Martinez on 12-24-2022 HFE gene targeted mutation analysis Molgen Nom (Bld/Tiss) See comment . [facility] Comment on above: Result:c.845G>A (p.C gw015Yux) - Not Detectedc.187C>G (p.Uys92Syt) - Not Detectedc.193A>T (p.Psu76Odb) - Not DetectedNot associated with increased risk [...] recommended for patientswho are homozygous for c.845G>A (p.Ywr843Rme) and have yetto experience clinical symptoms.Comments:The most common HFE variants associated with hereditaryhemochromatosis are c.845G>A (p.Ynu213Orv), c.187C>G(p.Xaa87Qbo), c.193A>T (p.Equ81Awq). While patientshomozygous for c.845G>A (p.Jpe845Jis) are the most likelyto present clinical symptoms, less than 10% developclinically significant iron overload with tissue and organdamage.Genetic counseling is recommended to discuss the potentialclinical implications of positive results, as well asrecommendations for testing family members.Genetic Coordinators are available for health careproviders to discuss results at [phone] ([phone]).Test Details:Three variants analyzed:c.845G>A (p.Wxa822Yqg), commonly referred to as C282Yc.187C>G (p.Rok35Kdh), commonly referred to as H63Dc.193A>T (p.Ztp42Crb), commonly referred to as I61OYyetcgr/Limitations:DNA Analysis of the HFE gene (NM_000410.4) was [...] was developed and its performancecharacteristics determined by [employer]. It has not beencleared or approved by the Food and Drug Administration.References:Clem BR, Ivan PC, Alireza KV, Steven LW, Angel ;[employer] Association for the Study of Liver Diseases.Diagnosis and management of hemochromatosis: 2011 practiceguideline by the [employer] Association for the Study ofLiver Diseases. Hepatology. 2011 Sep;54(1):328-43. doi:10.1002/hep.22314. PMID: 79397656; PMCID: [id number].Eliecer G, Regine P, Michael RODRIGUEZ, Haider H, Maxime O,Merlin S, James I, Ranjeet M, Natividad S. EMQN best practiceguidelines for the molecular genetic diagnosis ofhereditary hemochromatosis (HH). Eur J Hum Sobeida. 2016Apr;24(4):479-95. doi: 10.1038/[facility].2015.128. Epub 2014. PMID: 28741925; PMCID: [id number]. Ceruloplasminon 12-24-2022 Ceruloplasmin 35.5 mg/dL Normal 19.0-39.0 [facility] Comment on above: Order Comment: Reaso n for Exam HAMMOND (nonalcoholic steatohepatitis) Result Comment: Perf ormed at: - [facility] [address] [id number] [employer] As[employer]er: Jared Reeves PhD, Phone: [phone] PERFORMED BY: [place] [address] PATHOLOGIST [employer]DR[employer]ENT SINCERE GREENWOOD M.D. Performed By: #### M ITOM2, SMAB, HEMOCHROM, HBSAG, L-K MICRO, DECLAN, HAAB, IGG, HCV RX PCR, HCBIGM, CERULOP, HAABT, ALPHA PHEN, HBSAB, HBCAB #### [facility] , #### SLY #### [facility] [address] [place] [address] Ferritinon 12-24-2022 Ferritin [Mass/Vol] 92.4 ng/mL Normal 11.0-306.8 [facility] Comment on above: Order Comment: Reaso n for Exam HAMMOND (nonalcoholic steatohepatitis) Result Comment: PERF ORMED BY: [place] [address] PATHOLOGIST [employer]DR[employer] AGENT SINCERE GREENWOOD M.D. Performed By: #### M ITOM2, SMAB, HEMOCHROM, HBSAG, L-K MICRO, DECLAN, HAAB, IGG, HCV RX PCR, HCBIGM, CERULOP, HAABT, ALPHA PHEN, HBSAB, HBCAB #### [facility] , #### SLY #### [facility] [address] [place] [address] [place] Ferritin [Mass/volume] in Se rum or PlasmaOrdered By: Job Martinez on 12-24-2022 Ferritin [Mass/Vol] 92.4 ng/mL 11.0-306.8 [facility] Hep C Ab wRfx to Qnt PCRon 1 Hepatitis C Virus Antibody Non-Reactive Normal Non Reactive [facility] Comment on above: Order Comment: Reaso n for Exam HAMMOND (nonalcoholic steatohepatitis) Performed By: #### M ITOM2, SMAB, HEMOCHROM, HBSAG, L-K MICRO, DECLAN, HAAB, IGG, HCV RX PCR, HCBIGM, CERULOP, HAABT, ALPHA PHEN, HBSAB, HBCAB #### [facility] , #### SLY #### [facility] [address] Interpretation Hepatitis C Normal . [facility] Comment on above: Order Comment: Reaso n for Exam HAMMOND (nonalcoholic steatohepatitis) Result Comment: Not infected with HCV unless early or acute infection is suspected (which may be delayed in an immunocompromised individual), or other evidence exists to indicate HCV infection. Performed By: #### M ITOM2, SMAB, HEMOCHROM, HBSAG, L-K MICRO, DECLAN, HAAB, IGG, HCV RX PCR, HCBIGM, CERULOP, HAABT, ALPHA PHEN, HBSAB, HBCAB #### [facility] , #### SLY #### [facility] [address] Hepatitis A Antibody IgMon Hepatitis A Antibody IgM Negative Normal Negative [facility] Comment on above: Order Comment: Reaso n for Exam HAMMOND (nonalcoholic steatohepatitis) Performed By: #### M ITOM2, SMAB, HEMOCHROM, HBSAG, L-K MICRO, DECLAN, HAAB, IGG, HCV RX PCR, HCBIGM, CERULOP, HAABT, ALPHA PHEN, HBSAB, HBCAB #### [facility] , #### SLY #### [facility] [address] [place] [address] Hepatitis A Antibody Totalon 12-24-2022 Hepatitis A Antibody Total Negative Normal Negative [facility] Comment on above: Order Comment: Reaso n [...] total antibody results to IgM (e.g., panel #[id number] HAV Antibody w/ Rfx). Performed By: #### M ITOM2, SMAB, HEMOCHROM, HBSAG, L-K MICRO, DECLAN, HAAB, IGG, HCV RX PCR, HCBIGM, CERULOP, HAABT, ALPHA PHEN, HBSAB, HBCAB ####[facility] ,#### SLY ####[place] [id number] [address] Hepatitis A virus Ab [Presen ce] in Serum by ImmunoassayOrdered By: Job Martinez on 12-24-2022 HAV Ab IA Ql (S) Negative Negative [facility] Comment on above: Comment: The HAV [...] HAVtotal antibody results to IgM (e.g., panel #[id number] HAVAntibody w/ Rfx). Hepatitis B Core Antibodyon 12-24-2022 Hepatitis B Core Antibody Negative Normal Negative [facility] Comment on above: Order Comment: Reaso n for Exam HAMMOND (nonalcoholic steatohepatitis) Performed By: #### M ITOM2, SMAB, HEMOCHROM, HBSAG, L-K MICRO, DECLAN, HAAB, IGG, HCV RX PCR, HCBIGM, CERULOP, HAABT, ALPHA PHEN, HBSAB, HBCAB ####[facility] ,#### SLY ####[facility] [id number] [address] Hepatitis B Core Antibody Ig Mon 12-24-2022 Hepatitis B Core Antibody IgM Negative Normal Negative [facility] Comment on above: Order Comment: Reaso n for Exam HAMMOND (nonalcoholic steatohepatitis) Result Comment: Perf ormed at: [facility] [id number] [employer] Assembler: Jared Reeves PhD, Phone: [phone] Performed By: #### M ITOM2, SMAB, HEMOCHROM, HBSAG, L-K MICRO, DECLAN, HAAB, IGG, HCV RX PCR, HCBIGM, CERULOP, HAABT, ALPHA PHEN, HBSAB, HBCAB #### [facility] , #### SLY #### [facility] [address] Hepatitis B Surface Antibody on 12-24-2022 Hepatitis B Surface Antibody Non-Reactive Normal . [facility] Comment on above: Order Comment: Reaso n for Exam HAMMOND (nonalcoholic steatohepatitis) Result Comment: Non Reactive: Inconsistent with immunity, less than 10 mIU/mL Reactive: Consistent with immunity, greater than 9.9 mIU/mL Performed By: #### M ITOM2, SMAB, HEMOCHROM, HBSAG, L-K MICRO, DECLAN, HAAB, IGG, HCV RX PCR, HCBIGM, CERULOP, HAABT, ALPHA PHEN, HBSAB, HBCAB ####[facility] ,#### SLY ####[facility] [id number] Hepatitis B Surface Antigeno n 12-24-2022 HBsAg Screen Negative Normal Negative [facility] Comment on above: Order Comment: Reaso n for Exam HAMMOND (nonalcoholic steatohepatitis) Result Comment: PERF ORMED BY: [facility] [address] [place] [address] PATHOLOGIST LAUNDRY AGENT SINCERE GREENWOOD M.D. Performed By: #### M ITOM2, SMAB, HEMOCHROM, HBSAG, L-K MICRO, DECLAN, HAAB, IGG, HCV RX PCR, HCBIGM, CERULOP, HAABT, ALPHA PHEN, HBSAB, HBCAB ####[facility] ,#### SLY ####[facility] [id number] [place] [address] [facility] Hepatitis B virus surface Ag [Presence] in Serum or Plasma by ImmunoassayOrdered By: Imad Juan on 12-24-2022 HBV surface Ag IA Ql Negative Negative [facility] Hepatitis C virus IgG Ab [Pr esence] in Serum or Plasma by ImmunoassayOrdered By: Imad Asaad on 12-24-2022 HCV IgG IA Ql Non-Reactive Non Reactive [facility] Hereditary Hemochromatosis,D NAon 12-24-2022 Hereditary Hemochromatosis Normal . [facility] Comment on above: Order Comment: Reaso n for Exam HAMMOND (nonalcoholic steatohepatitis) Result Comment: Resu lt: c.845G>A (p.Ulv966Iqd) - Not Detected c.187C>G (p.Grm51Qjw) - Not Detected c.193A>T (p.Tzc32Uwz) - Not Detected Not associated with increased [...] for patients who are homozygous for c.845G>A (p.Qqp401Tdm) and have yet to experience clinical symptoms. Comments: The most common HFE variants associated with hereditary hemochromatosis are c.845G>A (p.Geo856Kvz), c.187C>G (p.Yow86Cvm), c.193A>T (p.Biz72Hhm). While patients homozygous for c.845G>A (p.Owh257Eaf) are the most likely to present clinical symptoms, less than 10% develop clinically significant iron overload with tissue and organ damage. Genetic counseling is recommended to discuss the potential clinical implications of positive results, as well as recommendations for testing family members. Genetic Coordinators are available for health care providers to discuss results at [phone] Test Details: Three variants analyzed: c.845G>A (p.Wat556Swt), commonly referred to as C282Y c.187C>G (p.Emq03Toj), commonly referred to as H63D c.193A>T (p.Ols38Aze), commonly referred to as S65C Methods/Limitations: DNA [...] developed and its performance characteristics determined by [employer]. It has not been cleared or approved by the Food and Drug Administration. References: Clem BR, Ivan PC, Alireza KV, Steven LW, Angel ; [employer] for [employer] Liver Diseases. Diagnosis and management of hemochromatosis: 2011 practice guideline by the [employer] Liver Diseases. Hepatology. 2010;54(1):328-43. doi: 10.1002/hep.06293. PMID: 02248446; PMCID: XVF2866977. Eliecer G, Regine P, Michael RODRIGUEZ, Haider H, Maxime O, Merlin S, James I, Ranjeet Mcneil, Natividad [facility] best practice guidelines for the molecular genetic diagnosis of hereditary hemochromatosis (HH). Eur J Hum Sobeida. 2016 Jun;24(4):479-95. doi: 10.1038/ejhg.2015.128. Epub 2014Sep 14. PMID: 08444242; PMCID: GAK9754206. Performed By: #### M ITOM2, SMAB, HEMOCHROM, HBSAG, L-K MICRO, DECLAN, HAAB, IGG, HCV RX PCR, HCBIGM, CERULOP, HAABT, ALPHA PHEN, HBSAB, HBCAB ####[facility] ,#### SLY ####[place] [id number] [address] Reviewed by: Paddy Dobbs, PhD Cory . [facility] Comment on above: Order Comment: Reaso n for Exam HAMMOND (nonalcoholic steatohepatitis) Result Comment: Perf ormed at: - [facility] [address] [facility], [facility], [place] [id number] [employer] Assembler: Fransisco Espinosa [facility], Phone: [phone] PERFORMED BY: [facility] [address] [facility] [place] [address] PATHOLOGIST LAUNDRY AGENT SINCERE GREENWOOD M.D. Performed By: #### M ITOM2, SMAB, HEMOCHROM, HBSAG, L-K MICRO, DECLAN, HAAB, IGG, HCV RX PCR, HCBIGM, CERULOP, HAABT, ALPHA PHEN, HBSAB, HBCAB ####[facility] ,#### SLY ####[place] [id number] [facility] IgG [Mass/volume] in Serum o r PlasmaOrdered By: Job Martinez on 12-24-2022 IgG [Mass/Vol] 1634 mg/dL [phone] [facility] Comment on above: Performed at: [facility] [address] [id number] Director: Jared Reeves PhD, Phone: [phone] Immunoglobulin Chris 3 Immunoglobulin G 1634 mg/dL High [phone] [facility] Comment on above: Order Comment: Reaso n for Exam HAMMOND (nonalcoholic steatohepatitis) Result Comment: Perf ormed at: - [facility] [address] [id number] Bar[employer] Assembler: Jared Reeves PhD, Phone: [phone] Performed By: #### M ITOM2, SMAB, HEMOCHROM, HBSAG, L-K MICRO, DECLAN, HAAB, IGG, HCV RX PCR, HCBIGM, CERULOP, HAABT, ALPHA PHEN, HBSAB, HBCAB ####[facility] ,#### SLY ####[address] Liver-Kidney Microsomal Abon 12-24-2022 Liver-Kidney Microsomal Ab 1.2 Normal 0.0-20.0 [facility] Comment on above: Order Comment: Reaso n for Exam HAMMOND (nonalcoholic steatohepatitis) Result Comment: Nega tive 0.0 - 20.0 Equivocal 20.1 - 24.9 Positive >24.9 LKM type 1 antibodies are detected in patients with autoimmune hepatitis type 2 and in up to 8% of patients with chronic HCV infection. Performed at: [address] [id number] Bar[employer] Assembler: Jared Reeves PhD, Phone: [phone] Performed By: #### M ITOM2, SMAB, HEMOCHROM, HBSAG, L-K MICRO, DECLAN, HAAB, IGG, HCV RX PCR, HCBIGM, CERULOP, HAABT, ALPHA PHEN, HBSAB, HBCAB ####[facility] ,#### SLY ####[address] Mitochondrial (M2) Antibodyo n 12-24-2022 Mitochondrial (M2) Antibody 21.8 High 0.0-20.0 [facility] Comment on above: Order Comment: Reaso n for Exam HAMMOND (nonalcoholic steatohepatitis) Result Comment: Nega tive 0.0 - 20.0 Equivocal 20.1 - 24.9 Positive >24.9 Mitochondrial (M2) Antibodies are found in 90-96% of patients with primary biliary cirrhosis. Performed By: #### M ITOM2, SMAB, HEMOCHROM, HBSAG, L-K MICRO, DECLAN, HAAB, IGG, HCV RX PCR, HCBIGM, CERULOP, HAABT, ALPHA PHEN, HBSAB, HBCAB ####[facility] ,#### SLY ####[address] No Panel InformationOrdered By: Imsonal Martinez on 12-24-2022 Hemochromatosis Note Paddy dobbs, phd . [facility] Comment on above: Performed at: TG - [facility] [id number] [place], [place] [id number] Director: Fransisco Espinosa [facility], Phone: [phone] Hepatitis A IgM Antibody Negative Negative [facility] Hepatitis B Core IgM Antibody Negative Negative [facility] Comment on above: Performed at: [facility] - [facility] [address] [place], [place] [id number] Director: Jared Reeves PhD, Phone: [phone] Hepatitis B Core Total Antibody Negative Negative [facility] Hepatitis C Interpretation See comment . [facility] Comment on above: Not infected with HC V unless early or acute infection issuspected (which may be delayed in an immunocompromisedindividual), or other evidence exists to indicate HCVinfection. Serum wogwe-0-btbqvetdgoo me asurementOrdered By: Job Martinez on 12-24-2022 Alpha 1 antitrypsin [Mass/Vol] 184 mg/dL 100-188 [facility] Serum hepatitis B virus surf deric antibody detectionOrdered By: sonal Williamson on 12-24-2022 HBV surface Ab Ql (S) Non-Reactive . [facility] Comment on above: Non Reactive: Incons istent with immunity, less than 10 mIU/mL Reactive: Consistent with immunity, greater than 9.9 mIU/mL Serum homogeneous pattern an tinuclear antibody (DECLAN) titerOrdered By: Job Martinez on 12-24-2022 Homogenous nuclear Ab pattern (S) [Titer] N/A [facility] Serum mitochondria M2 IgG an tibody assay (units/volume)Ordered By: ad Juan on 12-24-2022 Mitochondria M2 IgG Qn (S) 21.8 Units 0.0-20.0 [facility] Comment on above: Negative 0.0 - 20.0 Equivocal 20.1 - 24.9 Positive >24.9Mitochondrial (M2) Antibodies are found in 90-96% ofpatients with primary biliary cirrhosis. Serum nuclear antibody titer Ordered By: Job Martinez on 12-24-2022 Nuclear Ab (S) [Titer] Negative . [facility] Comment on above: Negative <1:80 Borde rline 1:80 Positive >1:80ICAP nomenclature: AC-0For more information about Hep-2 cell patterns useANApatterns.org, the official website for theInternational Consensus on Antinuclear Antibody (DECLAN)Patterns (ICAP).Performed at: [facility] [id number] Director: Jared Reeves PhD, Phone: [phone] Serum or plasma alpha 1 anti trypsin phenotyping identification by immunofixationOrdered By: Job Martinez on 12-24-2022 Alpha 1 antitrypsin phenotyping Immunofixation Nom Mm . [facility] Comment on above: Phenotype Population A-1-AT Concentration* [...] reference. Ranges used to confirm phenotype.Performed at: [facility] [id number] Director: Jared Reeves PhD, Phone: [phone] at: [facility] [employer] [id number] Director: Janiya Caraballo MD, Phone: [phone] Serum or plasma ceruloplasmi n measurement (mass/volume)Ordered By: Job Martinez on 12-24-2022 Ceruloplasmin [Mass/Vol] 35.5 mg/dL 19.0-39.0 [facility] Comment on above: Performed at: [facility] [id number] Director: Jared Reeves PhD, Phone: [phone] Serum or plasma lipoprotein a measurement (moles/volume)Ordered By: Job Martinez on 12-24-2022 Lipoprotein a [Moles/Vol] 1.2 Units 0.0-20.0 [facility] Comment on above: Negative 0.0 - 20.0 Equivocal 20.1 - 24.9 Positive >24.9LKM type 1 antibodies are detected in patients withautoimmune hepatitis type 2 and in up to 8% ofpatients with chronic HCV infection.Performed at: [facility] [id number] Director: Jared Reeves PhD, Phone: [phone] Smooth Muscle Antibodyon Smooth Muscle Antibody 8 Normal 0-19 [facility] Comment on above: Order Comment: Reaso n for Exam HAMMOND (nonalcoholic steatohepatitis) Result Comment: Nega tive 0 - 19 Weak positive 20 - 30 Moderate to strong positive >30 Actin Antibodies are found in 52-85% of patients with autoimmune hepatitis or chronic active hepatitis and in 22% of patients with primary biliary cirrhosis. Performed By: #### M ITOM2, SMAB, HEMOCHROM, HBSAG, L-K MICRO, DECLAN, HAAB, IGG, HCV RX PCR, HCBIGM, CERULOP, HAABT, ALPHA PHEN, HBSAB, HBCAB ####[facility] ,#### SLY ####[facility] Nhs[address] Coding Summaryon 12-13-2022 Coding Summary HTMLBase 64 GkhbeftlKIu7tXo+PGhlYWQ+PE1 UNLHpX84shTTtiE6jO8ISAFgLHn twICCDBBcNSuBnxeStLP9oiHIxX XJu IC8+NT8qIGDjIsqnpHLii7E6xGY 4P62tre7iBXdglQQ0LEHkAvUbmb kzx3gufNf6WIodQqojUkTi AGBduB79HLK5pT30Au66aSSxxNG no8rwsJn0HoUrFDUnWPI4eOtoCZ vmi0MpLAZxE54xwALzv4Q0 PRDprKjntXInQoTvqIX2bK6uXEp tbdvfc0onippvKfq8zv28cNYaa6 B9gYT0Q8EsweV2AQPigVBd ByyksHDRfZ7itmxdn0mnmzfkDlL uQOEzGNz3KTt7MSBjtFpjEeAmHR 59NBE7BZKxlnLiQ4QoYSXl kDzyDoS9g7N7Oz1ZD8MFKzppX6J NTUFSWTwvdGQ+QV71jo72I7RdGe feXrt0TPJoPYE0wYL7lJ8j AMTeGLhdk3Z6qOJ6I6IrxhMoqp3 xe6cjCNWcQMyhB83vgEHft7H3MX XatTZ4YKZatZhkFkZmqZ86 Oyc+ROMeoZkam0YwLycdm8vgm6h smTv5AyjrDQPvikJjyUxaLDS9e6 FoFw3qVBHfoGR0yIY6wW2g RdFeOtS5YXcrE105PlMwtBIkPqk hN19jJ1ZdjVH+KGOsHhx4TVRkuO fxED5aI1MdNVGtbegtyODy dMlmIW3sLBXweiyhYRNhiJ2uKUJ eY0b3RsGsObL4CQurM6DwHRIsvy kkGp40zX8oPqGmScU2YLxr I3VqklW2DRObdLLaINmwIMK4W45 xg5D3SMXsALJzZJU1cHL4uP0soD lnbjogbGVmdDsgdmVydGlj LTsvGKckX428EHZqsOcmMiPrQVo uZyBEYXRlOiAgMTAvMDYvMjAyMz wvdGQ+TAMbRKK8yEwnIUWj fCAqMLtcSf7snLbuhLgnTT1zCCN ggmeuBKPgbN1qLYCjdGNpcRmcQU 2pIQDvqsqdv098GxOtYML2 FQHrsDEzF0RlzX5uFxXvZPVoZLX fB8EoeZBzIMmaV532PKcpQwB6MQ QherGzZ0MqPSBdiJquScG2 b1U3Pq7Ww4HljosfE1DjuHZwLbV zQnfwHZl4P6PgKbyrsPE+PC90YW KxCS89WDi0ZSP9lCpqHKuc FQZgP5PwkL2lDeDnXOCzUYKpHvl +PHRhYmxlIHdpZHRoPScxMDAlJy JqeViiDU4mVf4qAVJvLFIk nHvbxKYwKwYjs2xvKQViBBfdWX6 bwAopK7SknIZ8PGOex2i9Aw57A1 5hI9QxnEE+PGBubDU2nVI1 fP0pSiNwLlM9QIicJ958PmAtmYX rJvvgb6cjb8itzHa4YpK4YLQydz KwiIilHFB8u0WsMk44M84i IHdpZHRoPSIxNSUiIHZhbGlnbj0 mqE7yTb9+JXOqjEV6pNR0sQ4xIg PnUcH2AGfsW367DsIojNIh Qozzd7ydz4wwuTm3IhXqSUBdovE ujAxoCZY5o6PfWl03B5FdtLbxj9 JyWza8ag93vWHor3I8fLY2 M0XwGIAgjvsubKHdtVixIF0zIZC wglkzPEBnfD7wRBQkN4p2JlLdOo F6YAecT8ZqfnT1BVIdsHWq HZHslSOViM0kmrqzc3dossjtLmN eXAMwPIh4IHi3FMXboOmhKoWwRI M2AnE0QHS0tTKlbP2lmBuv oijovA6oNsx+URA5gRJnkNPCVS0 lOjwvdGQ+APVxIGL8yPwoXFexZZ VxhK2cFSHlY6c7HgUbZmE8 XPtgN5DdujQ2KUUzuXAaARMtbMV FnA6rwjhuu1yvrtssYlZwIHYcQB m9VYt1HZOhmWdaDwRsSXY5 AeW0DLW4zAHadT0ehTgrkkzlrV9 wOyc+AkzasGuwCFP1PJp6D6JyJv m8YZDhwPpaCK0mgDVhWAym Ze0itEwvgVxiVZ2cGBCgfnxia24 7RkYek6mxPHZomCJgDQamTTW5B4 3ut9P3UWYyCWWiVMI1vCY8 lJ1vmYwastfhtZLknNkqudQgvPk eTLcfQFatF968SYIbzRclLuNvFT a4T3VyTgb9JRWykOcaBS3n aKLvZBrfNg7boKdhsPszTT6dZEK nxnfta620YaOzo2qjSEUdyPMvJS faJQQ4G67dv3S1PRBrZDRe OMK8cTI5wM8veYkdgrshaVNdrOq bkpApeDroWIzdUPynQ004GWQrhM skPqJosLn1Q6UeDgz5TZRy wKneTF2edLQqLPixHg4zhQzhxDv uUA3kRAYhhkwvd361TrWsf4arSU PsiJCrOQtrAJR1R73jv5X1 JRMvUOPpXYX8zYH6qY0abHedtaa gbGVmdDsgdmVydGljYWwtYWxpZ2 46IHRvcDsnPlBhdGllbnQg ZXxeCNo0G7DsFromrBX+YO24VWK rOG33pXGdqDLbm0pnlEk3HqErKQ OpQAT5jXolMJiej4LcRENi F29jcCNtq6S7RZQrcNnozSNvLdF bgWH6nD0jKJiqgmdvy4sclixcUy gxj9yitz74bR95H18gFKqy TLOoXTKrAHAwVOMdfTvifj5vlW9 wIi8+IJLcfOM5dMM4aJ5sZQNbEn T5YQmgC894FpPqdEXuLmuj d4tgr9qrpLh4KlW2ODJuudRwoRc pAPA2w6HmVf76L79tLWwjAOKdDA NfEDYaRJWphZszmf8iiU5y Ii8+LOUgjFZ6oJL6hU9rWgOqKbS 9RCyoS375HuMweRKtYdrcG39gB8 JvdXA+SQVzChd1SQVjuKiq RP4izSEfMNoyUx6tXCU4QmKqYyX zZVitS5YvWNIxsrblyjqnyNX4OQ CuNWExlR56Oo8ckJtxTAGo aTNNrA7gfiuuv1mznjbbIgUfCNV mCSp7UKc9BUOysCdmDaYoSSC9Pe O4WRF0uVCilB4fuNshghpy cV8cO7RlWIFqsjdgBx51mM7cGnN lDaU8YFmoKwi+TVVMTEVOUywgUk YAQOHCXNVPFElSQoN3S1Sg Bqa1CRWjlLxxWE9dqQIxSAlkMn9 tuKsgvWpxKF4fURBtxuniDUOycR 0kNYSnnXSosSzcZJ7eDNPw hpvqd533HqAqJBY1CHNazQTmB4V uvX6oYqBgLZKbFSLdB6XpcREkUY aeJ884ZLovMkU7GIIvlaAq F3MfCEMxsSqvGdQ7g2H5Cr8sJY6 pFr8hENx6SE23CD87tSAxl4A5tN F0T2WbGUNkhmmfnmcpuQF0 ZJNoPWPtcG30zOWaATkuMj3eq8E 8w689SWYrWOSdgV42Zr8btYehFO EfaXVMkP6xuvhsz1cutuic IgLjULHeGJl6ATv5FRWbvNquWfB aKGR8JiO5GMJ9tVAkkW2aqHazpd alcD8vOfw+MzcgWWVhcnM8 Z7VvRvk7LAIcuVdyIW4agPRfOTa oHt0dqCapnSdwNG6mOVMxkivrNR TxbX4sBJJytADxlAmrJO1h GKCgxrqxc393TuCyUBG3EQImdSF vD7TtgM6oPyTnRKAoTFKzB3RvsM KjMXecD201LEiuStK6YJJd uoYwL0YsWIQarMnlWaP2a5C7Le4 XWD0TLKZ6X6HdNar7QZZhfMcgQL 2cmYVxZPggCx5zqVjafAko FN9cLCDzkknnDUYuxT5mHNDybTP pcTqmOJ8qXTBokkcgb428AcUiLE J5QBAfsDYiZ7FwaL4oCkMw ZIPtHZJgT3NuzFGjOWwwX100WUh gOiY4XJKrgoWbI8CvIDBnyIirLt M9f4W7Sl9XVMrprKB+PC90 vz35E1KeZqjeLmw6VTExOJA0nTF 9vC2gFKBtLOpby6X5gYL7N9Zfmt Vtys0yr0ruYLSpGLlqT97b oUOue3N3TCVixLY4FBEjnCdfDmM kdS56Tuk+YSPgoGeji7GdWsbbq9 ppd9zyeAo8XaHcMWAgrkXt mJcnAMX2p9ZmJb87Q30vBBfqAKN wSFBbKZVeVKEwmZbrty0viH7pCo 8+RLNupEQ2zBB8cE4lGoXz AjX9TOjyR171VeApmSQgBifco6i dc5aniWg3MeYcJZXvsvNdcOebFK P8z4OyQy91F9BgaMaxa7Lj Vdi1ca92rZIfo6K4dXD0I6YzUAU gwzfuaKJvnTlcFA1lPQDlzwurFI ZrlJ5kARZcL4d9OtSpPwW4 FXkaD0QmdxR2NACzlRRuISJapYD JyF8tkavtz6jvpzitCzDaZCKsBQ d8VCs3VZVlnFlnQwEmIJD0 GtX3BHN8eXJhhE7glGopgvgiuY3 wOyc+YQs5z1pxzZQbYT1txJH8DO 36CZ73bFFmt3P7lUP0G5Cy FGSjspvqgrosyWD7UWPhDXYbuR3 8Oa3vrQisTu2hJUEmJHF3VZLmrX HnX2WkbC1yFeYfBURcSAVb S5ChqLSvQNadO732JFztDuS1OON myuTkU1WdJSWjaHeiGqY4f1V4Xw 0WCP59NK01CN84eRCiw3V3 sCF5X9ClYDUcrunoounrtCE0UHL fRQLmzO68Oo3qwLghRk8qSJKrAY M4JFFgtEWgV4OdmZ8eNmBb MPPtXHJeG2LkrCEzKCulG089CNz bKzS6EMEmsbPoT6WeJQWtgTitIy U5q7S3Ra2XZo83QC70OH11 kRTqw8Y4bWQ6B9WxCMFuphhwfdv jiMM7BQVxMDBedG89Sl2kcAlwSm 9bLTPmLTG4MNHmnDPqY7Uj uS4bXlYsGSAuJIRnI7YrbZGnNYp tP440GUwkBmW3YRZvgqOqN1FfPJ OaaTpeCdI5l6F5Kt0GSTqn jmj6G1CkAodtaGW+QS35EJAxDD1 0gZZzzXGwh4cquTa0AeVzQFBbXR T1mOehZFzgc5KfKBXoO15x bGF (more content not included)... Normal [facility] XR Sacrum/Coccyx Minimum 2 V [facility] 12-11-2022 XR Sacrum/Coccyx Minimum 2 Views Examination: Sacrum/coccyx. History: Pain. No history of trauma reported Comparison: None Technique: 4 views of the sacrum/coccyx are submitted. Findings: With the fiyjc-fz-iyqg there are some degenerative.seen in the posterior [...] MD 12/12/22 10:34 a Technologist: LT LÓPEZ [facility] Coding Summaryon 12-06-2022 Coding Summary HTMLBase 64 TcxzgvncKDs9xYq+PGhlYWQ+PE1 NBMKaN32veHZsrX9cV4JWBDyRWq lzGXTDOXoQCyMpeaShHN4piUOgC XJu IC8+HO6cYOQiVylkjMBde9A3wWS 5S21lgt4hCViarTL9FNGyBiJwri lwc8gqsYc7BLlxIysdAdOz NEEcaT08YUM0gA70Pl27aYJixOU on8zueOq3NsIoXZTpHWD0oYrsNX esr3YjUYZeL56rkATyv4K5 WYTyuCmcjICmCaUtoZJ3wO9bNOa ejovsc3pkxtlpQwm1nm66iFKpd4 F9sIG8U2DscyR9INQazLMx UegdoXRBwP3ztelmw2cqgkqaDmA iBOFaEMb2SRu4OIHfkZriRlDtZD 07KSK6OQRgwtCdL3BnXBDk kPtsMfH0e2D4Mn3PB1AQThtoY8W NTUFSWTwvdGQ+RJ02oz10B8KwDd qqXrv0EJPjAXV1wSJ7pE9r PLBeSIxbj5B3dZS5G1ZwjqRyss9 ia7xzXFIfJUblX78njWFwx0Z1ER YdrZQ5ZPLezUyhNgOdyH68 Oyc+GILmqZjdu9JqIwlsi8meh0k cwCk8ImmsXKHkbcIumJjyUKS5y2 FvEt3rMBHikSY8pHA0yP8g FfNcZlW1CQbjI426AlDngWBmQly uY91qU7UfjNI+BBIbFdj5VAEysD ksVQ4cA6UnXGKnqfqebKRz hQyeTR6xSCXeaqraTENpdM9oASM mR0l4YmIaUhK7VFweJ7ZsGLDviw ceRx36sC8eDeViBvY7ZLzk H2ZhtlZ4EBSybWEeRKcqJRM0Y88 oh6H1RNCpTIWbOOA1eLT5vT3lxJ lnbjogbGVmdDsgdmVydGlj IVdfCBomV449UTEkiNtsDkCaHOp uZyBEYXRlOiAgMDkvMjkvMjAyMz wvdGQ+VPNhHSF8mJasHQMq yRNfXBreHm8nyVbflUoaGA5rLFQ zxmtlVAOxiT8sYVEuuQKdvJxmSL 6hDCCaievyy438DsFcWMQ4 CGBrvDVhH9RqeE4yMwEzJRCaESR gO6RiuPUnNJwyM081EGgeUrC5IY QnsqDjU4UbDODhrOgeZrA1 d5E8Nr7Qn6CrozkdG1BsmFRoQyE jEqraFCa7Z0NcAnjroHP+PC90YW YsZY93QJs4WWF8oTauLOyn KBCxG8BotY9nTnXvYGVmPRVwTav +PHRhYmxlIHdpZHRoPScxMDAlJy MlwEgbAG5oFk5eQCFiGUUi oCiffXFaJoGjw3fxSKVcVNklPZ3 yiGurI5KrlNY3EWUyc5x4Jc23H8 9qW1HduKH+MROdeOS5wVW8 eK2kSeCyKvQ7QTqrU618ErRmyBL xZylwj8gwi6kevZt7OwX6AFQzsf NzgTqcPPW1i5ShDh12I35c IHdpZHRoPSIxNSUiIHZhbGlnbj0 mhL2iDo7+DLYlqUD7oIR2qS9nGb XfPeG6ZSvaC488IiQqgCFp Cmijo8qvt0vyvJr3RfQjXDKwjfE umFfgJMP7x0JqJm70Q8NnqUnks0 UcPnd0wu36hABwv0G6vGZ2 X4DeUNSzygetfFYczMfjEH6tMAL hnjhbPYHggH0kKCSyM3q4IsTpYu N8LXxaP4IqlgK9TYLnsYWc AWIesGPQuL5fhffzl4diufeyVcI qXBTlVIb3TYt3MJCfxLsbUgTrNJ D6CiS3DVR5kGYinC7toFaj mquqaZ5rLoa+TSP7oNVisORFMW1 lOjwvdGQ+WHKtNQO0yZpyWHuuYB EtiZ4kBJUyY4a1ZzDxVgF1 WHmkG9TydiW4UZZnqWXhYHOqwES JlI3sukqli2ddwlalEtVkOXBtQA t1HJu0RKGvcLklIiHfRTF6 XvR6VPR5zFBckW1xfUmznhtzyQ7 wOyc+OgoupMrtBQH2RLy4Z5EsKc r5QKTglJaiLO7xyNJwKIiw Sr2siAtjgWtgBC7aMLUbxxrow97 7SrDld2rwNWFwiJMsLZulFEF8Z3 6wm1Q1TRUpFFGrSFZ5qCD7 wL7vsTrjnpvcqQVmjTezmrDzvBe mOFlaYMfvX202ZSJjdOsyYkSbHQ h0M5GdFdd2CRBzaEluOA7n aBJcYTnmZq1ceVqdtOscLN4lZDZ jpaqcc499FiYui5ruYBBxjVPrFP ulSQE0X69sx9T9WPBbRQOs LPT5tKN5sJ0rcNanypcrcNSvzVl lcuEhyLfaPYafPUxqT105GRYmyF mhGjJjvXs8V6OvCin3SLZz aMydIC1rlBKbZCxwMq1trAzelBe jEX8sVWIglawgs543OzXfj3faCZ CtmQAjPMrbISD9V40jt5I5 ASCyADDaFFY3eWH3rZ6zwHtrpjw gbGVmdDsgdmVydGljYWwtYWxpZ2 46IHRvcDsnPlBhdGllbnQg REtuVHw4Y9PqJtpdnYV+PP21BFK zTO53hRFaqHTao9hrmEs4JqDbKT WeCNV7gDsnQVsjr8LbZDDb I92zmLPnn1A1LSJsgHnzyCSoYsV vaKU3oQ9tKYuwogjeo1vchtviVk mif3cwnt43jU00S10uDRca WIXjGJGyQIMvNJPinHaffw0nnA9 wIi8+APDnlTR3zXE3kD4nOUCzVj W1PFrqR849XjIbqLZpSaky f7bam5mioZp3UxX8QBHokpXdrXz sFPS5i6XnRa61Y83qQAxyLBWcHK WkGYLyJUCfoTrtej7ukE4m Ii8+GCAsaMF3vWA4lM3wTzCjRzQ 7VAfnM484HoXtbFAfTkjrD38mM5 JvdXA+VKRiDpx3VBInqZhf NN5hxETjVXunNs5oEDM0RjCbDsF vEZcsB8CiQNHclrlbcgacqDA0GH KtOSHevM55Oj2wuIuxCLNw jAYKjO5dxqeqi3zmzhboGgFaPPF jIEu6DYb9LSBudNxsGxIvOFZ9Vz W7QQQ2rAKjcY9daCbmajyv pC9dT8LbUXXtkjgdJl10tH6pUiC sWpI8RLvcXww+TVVMTEVOUywgUk IVCNBGMRWDMPfXRuO9L6Oy Vzr4SYYdkIbuID6epJOwNKztHs5 ykRhioKamEL8sKDCumqweFBFfpM 6wMWFgrTArjEueFE7oMMPs pzknb096IxPgSTA2AHXehUJfO0I uqS5vQpQyIIZyCETkO0CjbSQbWR ucO375JRyiWhU2UKEmzwMo H8QaXTAvoSkwXjU0v4W7Ss5bCW5 gIm9pRCu5TP01JS39dGJxj9C8fD U6H2PqACQsyernaciarDT9 QOVeHDSujJ70nTGvIGjuPq6fn7H 6a878TBYtVUHpvT62Uh9fvCimGA TqlMYOqH1vgdyxj9wonraq OdQiIAQmHVx2VMj9DANljGlsCpK sSRN1WgF7EPT2dQObtN3ieQcyvy jyiR6rBbf+MzcgWWVhcnM8 M3LkQot7BOMuiLkiQC6zkBYxLNz hOu9myWakaQcfBR7xGHJgjhbmOP BgmJ9iUGNsfTGohRkzTO8m ZSLcxecwp339XvPnNRS2VHMzbYF lW6TnaL5lYzOvQBUcEVMvP3CbvB VlMUbgP506GUegSyF6AOIx bxHqW3FbOFJzcOmjCqW5g8E9Ig2 IIE2INPU5Y5ZnJdw2QNQiaLtoUE 1kzTHeBUtrSq8yrGwraQgl TG6tTTZhlvkoEVQyzJ5cFGWxaSZ kjQkhWF6dAQVajwtxv095AkMrQI K4UJUjiWUpW5MxhU6nLsJj TGUtMWDtK4NvfPLeOKkwQ065IVl sAhC2PKSewzZxW3CvXPApaLweRd W0t4M4Ao5PEFyufWC+PC90 kg76B4KgTkinSyl6KYEmJMT6rKK 9dV8dQLHnLXxzh5V8lCC9E3Wpfs Yudf0xa4clSOZaEMprT48l hCTqy4A1QVIqwLA8VEVccUfoWdX djK97Rih+XOEcaSorz3OyMcxqj0 sfh2dmdOv9InCcJSMacaRh rMtwGLT8c8UnZz51A42mPQvzPNB uBNWuDZVjWWJthQkvpl4qmS5nSe 8+PLRctRK9xTM8eZ4sQjJy VrG2COzkT887XjVxdVElIrqzd4z xe0pgsLc6EkImDATiyyMguIpnSR U4g9WyMn26X9MrnNyfu4As Zyk1nu74nKWgk7L5hQI6K1IbXUW scqoluPDcrGhhIN2oNKSjvmovHB NvcX7iHFBgP8s9EyCvXkD6 OQebZ9BjxtI9NBOcwMFfAVLhmKO SyJ0uwbdve7ksakksMyPcTLSzBB l9GEk5ZAYohZoiUjCgLIA5 OlK8DHO3wDBbkN0ncQbyolgaiM2 wOyc+MNd7q8dbxZAxRY4acBC7TT 53NX12lQWjy8V6rJV6Q2Up EAQcuwwagwfawHX8WUHoFMMauM6 9Hh3qjRqjPc4jKGDbRGF6CRLowT QyF3KarM7rBzYvAVAcHZHb D8TenWPwFJtdZ050BYclHxC2BSD avyDgZ1ExLKGenOrjHzZ6q6K5Ks 9GVO39UC14RO71iUXiw6D6 rHX7E3MeVMJfcvavxchqbGL7DEQ fBHTtaE86Ae2rzDluAm4yCYYoNL M9UPPxgCZvP4YtfY1zRlRe RLBlBTSiK9GynELeDMjaX557WFn iJcS7RTLshbSsA2MsEQDxlTokLh T7g1H1Aq8GUr54LQ66OJ80 mDGqd3G3yNM3L9MqHQSnngkwfka ouVJ1XRQxDHUxmW25De2jyTxvLj 0vKHHrCDG5YIIbzONuQ2Qf hI0dPiUvSFStMZPqP5KnrVEtRDh pZ646GVovGfW1FAWedsEdJ1PsKL EmrTirPeZ8y9I9Px5AHPbe llt8C9FxGwyifIM+KW30PJWzND0 1oJLrbPUut1nhwXl4TgLjRPWxWX Y8eKnuNIdcw8DaWOZjL18n bGF (more content not included)... Normal [facility] ED Clinical Summaryon 2022 ED Clinical Summary [facility] ? Urgent Care [address] [place] [address] Clinical Summary PERSON INFORMATION Name: MICHAEL RAMON Age: 37 Years Sex: FEMALE : 1985 MRN: Acct#: Visit Reason: Medical screening exam; [facility] F/U- RT FOOT Arrival: 12/04/2022 12:23:36 Discharge: 12/04/2022 13:19:00 LOS: 000 00:56 Check In: 12/04/2022 12:23:36 Checkout: 12/04/2022 13:19:00 Address: [address] [place] [id number] PCP: Thu Baldwin DO PROVIDER INFORMATION Provider Role Assigned Unassigned Mati Bell PA-C ED PA 12/04/2022 12:25:49 Catarina Meyers SHUTTLE VAN DRIVER Nurse 12/04/2022 12:26:05 VITALS INFORMATION Vital Sign [...] verbalizes understanding of instructions given Comment: Normal [facility] ED Patient Summaryon 023 ED Patient Summary [facility] ? Urgent Care [address] [place] [address] PATIENT DISCHARGE INSTRUCTIONS Patient Information Name: MICHAEL RAMON Age: 37 Years Date of : 1985 Reason For Visit: Medical screening exam; [facility] F/U- RT FOOT Arrival Time: 12/04/2022 12:23:36 Primary Care Physician: Thu Baldwin DO Attending Physician: Mati Bell PA-C Comment: Patient Education With: Address: When: Return to this practice Comments: FriJan 22 at 11:30 a.m. Medication Information: The exam and treatment you received today in the [facility] Emergency Department were for an urgent problem and are not intended as complete care. It is important for you to follow up with a doctor, nurse practitioner, or physician?s quality assistant for ongoing care. If your symptoms [...] so we can reach you if necessary. [facility] Emergency Department has provided you with a complete list of medications post discharge. 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 [facility] Progress Note - Nurseon 11-09 Progress Note - Nurse Patient called and left message inquiring about MRI and XR orders. Patient reports she requested that they be sent to [facility]. Called and notified patient that the order was sent to [facility] – [place] and was pending prior authorization. Notified patient XR order was ordered for [facility] and could be done at her convenience through outpatient. Patient verbalizes an understanding of information. Reports she will likely complete the XR order today. [Electronically Signed on: 12/04/2022 14:34 EDT] Giuliana Travis RN [Verified on: 12/04/2022 14:34 EDT] Giuliana Travis RN [facility] Urgent Care Note- Provideron 12-04-2022 Urgent Care Note- Provider Patient: MICHAEL RAMON Age: 37 years Sex: FEMALE : 1985 Associated Diagnoses: Contusion of right foot; Hallux rigidus; Sciatica; Lumbosacral strain Author: Mati Bell PA-C History of Present Illness OCCUPATIONAL HEALTH FOLLOW-UP Date of injury: 08/26/2019 Claim #: [id number] Employer: [employer] Mechanism of Injury: She was moving boxes of celery when one fell onto the top of her right foot. 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 who is seen today in follow-up for a work related injury. On 08/26/19 she was moving boxes of celRosalind when a box fell off of the cart and landed on the top of her right foot. She was initially on light duty per [employer]'s telehealth visit. When she was not getting [...] History Medical history: Resolved Lower back pain (106816985): Resolved.. Surgical history: Epidural block (9006401318) on 03/06/2022 at 36 Years. Comments: 03/06/2022 10:33 Dana Conklin MA TRANSFORAMINAL L4 AND L5 Entire foot (137140438). Comments: 12/26/2021 17:09 Tamiko Childs LPN, surgery. Fami (more content not included)... Normal [facility] Recordon 023 Urgent Care Record [facility] ? Urgent Care [address] [place] [address] PATIENT DISCHARGE INSTRUCTIONS Patient Information Name: MICHAEL RAMON Age: 37 Years Date of : 1985 Reason For Visit: Medical screening exam; [facility] F/U- RT FOOT Arrival Time: 12/04/2022 12:23:36 Primary Care Physician: Thu Baldwin DO Attending Physician: Mati Bell PA-C Comment: Visit Diagnosis: Diagnoses This Visit Contusion of right foot (S90.31XA) Hallux rigidus (M20.20) Lumbosacral strain (S39.012A) Medical screening exam ([id number]) Sciatica (M54.30) If you received any narcotics, [...] and treatment you received today in the [facility] were for an urgent problem and are not intended as complete care. It is important for you to follow up with a doctor, nurse practitioner, or physician?s quality assistant for ongoing care. If your symptoms [...] so we can reach you if necessary. [facility] has provided you with a complete list of medications post discharge. 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 [facility] Coding Summaryon 11-21-2022 Coding Summary HTMLBase 64 AmyjnzfvLSk7lWn+PGhlYWQ+PE1 WZQTeM26luNUaaJ2bJ8ZXXJaGHt vdJJMZLVpIYzRxsmUhDU5tvAZeU XJu IC8+PR8kHJPyLwerjGMmr3I2mMA 1U87hfu5gTEkzkRP4FUGtImOlzt hdg9pisFc3ZTqfLntuEjSw ASDhaE92CQM5tP81Gu79bXBgwKV mw8ktuNy4MaPjMVYsFHT1eHivII xkz3LdGBCwP93nnVTnr0T5 ZBGltJbieCSgLcIchLG5cA6cKFn jjfxgs3zikddeNyk1ae41yMAdy4 Z7oUG2H7AlbeS0DDKnsKQm OqlexVUQoA0ckmorm6zovqbuDjS jMXRlOIl1IKh2GHAwwGkbYrUnEO 49XOU4WKYmnnLdQ1XpWZSo zAedXvL9p5U1Gp2IC2LYYyouE4I NTUFSWTwvdGQ+SV74gl90O7ZsDc uyCtj1CBYbSWT2gZM4oR6c NLTaZIcou3X5uZK6A6RnrsOcdj3 ao3dtYQSqBEcuS01ryAXhj5G8NF JafBO1QFUmgUwsFmBlvU26 Oyc+WDSxmNguw0YbBctti5ulu7j jiYr0MhnbAAFsllVfzLqyQJC6g7 IvEi7fKZUtbOT6wPT1iN9o PxDrBvX8TLgaE135ZtXlaWEzNxx sL53zO5NneBN+QGKzJrq9KLFkaW nvNW5hB4AjGHWmoypqmUJz gTzaVX5vNYXylfqvNNYfgX6pDDO gX8g6JeRrZxF2SOuvG3QaICAjmn owTu42fX2nDwPtNxU6APiw E3BbevR9TXSuwPGoTJzyKPC6F88 nt5E9GZHqDAAcALA4eHA0wT0toZ lnbjogbGVmdDsgdmVydGlj BQbzYOzsK873XWScpMgtLqKvQLy uZyBEYXRlOiAgMDkvMTQvMjAyMz wvdGQ+WWGbMNW7zPnpWQAx lZDeLZeeVn9bgFftoDbjQC4aMEB mupgwYDDvjY7zVUUgeSQcfNkhFD 2nHWTmmljbv311DpYdJZC2 ADCjdAZmE6NgqZ4gHnEhFUVlWBU qX8IcwVLkZPqsK243BPlcSpA4JB FpjgLuV7UgFCObzEmoLyS6 a6N5Xb0Nh4SjonsxU5AkwVAmVaL eVyueEHf4W0VcPacglEK+PC90YW DgBY50CHn3YQE3wJfpHTuq QJIzI2NiaV3pCjAgSAPnQSEfIjf +PHRhYmxlIHdpZHRoPScxMDAlJy ExdOgtYW1eDn4xYNMiXHTm vCsjiMOtKgTpa9xzPHTsIZncHD0 ffUgmY2FpkNM2ABIua4q5Hf65F5 2kV6YntVN+TZUpnRH3tXF8 jY5dXsOfHgA5NPpuN656XlTxyXN fLmtrk0klk4wvpQp4BiN9WTVzfq WepNppCVG0x4JjLb95X63n IHdpZHRoPSIxNSUiIHZhbGlnbj0 veX6tBe4+DCGxbSO2sNY6yS5fXk FpFzC6RXmdX271RbGxvEUd Dufwm5wso2eoaKt2NgPfCVTujmE spMclDII3r3QqMx94I9GrlRowu2 SaLis6yl73gZAwo8F9yDA7 H8BjPEQffkwbdBZwpDeyAT0sLOS ncgkrARXelK6kTYEpE7x9CcWbYj B4MXsaS3PhckF0BKThcJHk PDUwiAVWnY6pisecy0frpxcjCsE dAEXsRSa5DYy9FWKrdVlaMtLhIK B4FnF3YAB7iHNyuQ6krDsr lehveQ6aGwx+WLZ8sFRdyAWTSV9 lOjwvdGQ+PPZeSPF6fGhsCPmxFW ZreJ2xQBBxC6r6VsKkRtE9 MCtwA9WujnO3YWKlyTYpSCLlgTR IxM0lflaww2quxxotFdYdUAAySW g0INb4OLGplTwiUjCtOXD6 HhP9OCR9iUWbfM4wnUpyejrgiT3 wOyc+DjsfhAeePLL5ORi2Z6PxWt c1EYHllYesHI6ieMXeZAdk Lz3uyBcdzNpzOD0fUORiumqse23 4RpTgr2plKHImoMNoXUceVGY5G5 0cz0M9YAThWFSkKFC9yJR5 aN4waIpwcopbzSFqmTdfbeDfbWn pMKkeAXfjR973YEGgfFooLoNxXF z3N7DpQuf6HKPqgDrxGL5q dUSyKDzjHz0uxCphlWwgPE3zPWD mqrsxf800FyFre4ohNEBgvWOoOX ldZZS7D88lr6K3ZDPiXMZm GKT4rLO5dF0qiUuulupfrVDnjRs itcHsrIfiHEcbQXabH374NIYrzX wwRcSdcXb0H0DrTsr7DMZv hLgfWL9hgJEdHAyzDl0qbFrkfZf aEO4vQGUstvxmd939OsTtw9qpXS PxzPScDHrmJQH0I09wp6R7 KUCxXPAqVKH1kLX9nA2jaCdpefz gbGVmdDsgdmVydGljYWwtYWxpZ2 46IHRvcDsnPlBhdGllbnQg ENlrGOb2Y3GpZpkvbPA+YA89FRC bVH68wPKyfRGnn2jfhWi9IjTeXE VjBMS5hDalJWmpd3QaMXFe K90fdZIbq5O8IOJvxZjybZFyZyY ofTR1mN7eIOfhqgiob4ghlagpPd avs3kbay86jD91Q60tCGwp FPJxEPAjCLYdYNWksZcuge4koR0 wIi8+VHOsuPZ2aMD0wF3kKJZrTt V1KUuvM168LgJmcKNaSkoc p1fbd3fjuZd2OmY0HVKemuSbbKu sYME6l9VmFp59Q55uNUpeNLWdQK ZpMSScLZAxxNglvb3mmQ5b Ii8+XLVouYO2dJS1oX7mTnBgDnT 9WYbtT167PqHpbQXbQskfY32vR7 JvdXA+FNRaVzt2QCCwnXwv OQ0giEGtHYcmWi8cMXU9WkIxUfB pVJciQ2ZpLDXptfhauwjvbKJ6VY SiPIGhqR04Gp7orLboMLTh wUYJsQ9tsqdvn0sgesriLqMcUMS uNJs3MFg7CYRjlUcpNbOiZIT4Ls O6PQG8lKLtmA5loGaannpf bU0dH9ShZOUsqshrCx38uG4vGpK fBeV0YWcrKdv+TVVMTEVOUywgUk ZXVTDZEXLJGYpGViZ3O0Rw Ded4GXExuKhwKQ3ijRDiWDwlZq1 sbUhggMtaJD5rQSRekhonCZVvvB 9vZGHvfTQosLukVK7wXAGh kmewi721QcUwOVN9VXUeqQLsG1L jxF3ePhLgBRYyIAHjJ4RxsTNnWZ wmC868AXvkNyE0KQDojlJp K0RcOBUzzQluFhX3r8R0Ed5qGA1 tFh5aCZu3DJ42EE53hYTfe6Y0gB A8T5JnHMUzmtvxsiecaLY8 HPFoWMYcgW02cYAcZAagJj5gq9S 8s341TLGlCTFszM93Ws0hqFzwHB OmbTIOcS4kqlhoi9zeqnzg WvVsZOVaOWc5GOz3FBHccAqrFoW oHVY0MqI3YCR8rNHtmX1gpJtvch fojV4aBqj+MzcgWWVhcnM8 X6NdDfo2PYFkcNxuPT7wmKUeLDl dLe5biAzduSvlFE1eRSJpabgvDZ MwmY2bJLGqlMBpzVoiRI1s EVUywbcfn676QyVlXZJ1QHPigVS mZ4AzyT5iHvJaKPVrNZCyR7SlsQ AqLMwtH541YIcdJxD8MAWc giRwM6IaGWGynXhwAbD3y5B0Mj4 RTS8WYTZ7J4NeBwa8GFLnpHrlZI 5qfFOmTArbXd7qhCffqFgh AD9pSGBvqjxuONHviY1pRMQbjPR blEdrRA4gYBUliczcx593QzBlPC J1QHRslSQzB5MbrF5vThVm OJBoQBYwR3WilFLcKQhiL404EVb nXiG9PUDpneApG0BfLIJlaYmjIb G3t6O4Wo3WEKaxdPX+PC90 eb24G9SgCpukZll2CZGvWFY3vYH 1bH4iDLHrVIrox6N6lMD9I8Lpvi Irxg1mt6jgYYSlFFfaS99t gXCuk9I1EGFpxFB9WUNvvQncXbN ydK50Ril+FXBluUdkb7JgHvyxa2 xpp1eofOf0JgOcTUGxxxEt qHfbVQL6t6MbTl18O62oELycYFZ hORAaFKLjSXBieEbdnc9suF8aXm 8+GSNgjLF6wMJ4eV8bSyPh EdV2EOjmQ889HcCoyHHxWrvqo1i as8bsxWj4VjCsOHLbwcGgbReuTD L2s6QaXw22M6RttYafz5Ov Afv3wu82zPAzz6Y4pNR0R0BmIXK tbtxhzVQcdMfzQA2kQUOfgujlMZ LzwS4rIVDoR0b5WbAaRlR2 RRdxI8ItawC2NZJdzIOpYVNqwHH HoB2juerbn7hrmenfNnWfHVFfDL s9ARs7XSLgjXfuYpDhGTJ8 FtQ9DNX4eMTxsO0ngFiduynisT1 wOyc+BNl1b0slhBLdOO2xsDL8ZW 62MP55zWPvi4C2xDU5E9Oc XKVuzjdripzgvLU5IKGtGZZtbM4 8Sq4gkKepKz4nYAHnRZF1HMKsbV NhK0SxrB1tQyZvHMUdEKMh L8WozYHrIUhbH393EEhbHwH4QLR cypEpB0BcSWZhbLvxCeD0v1D3Ed 9BAP68AE61VL61tKIoc2A7 aEI7D9HpJQQqrgpwczrukMC6CBS oFIIplW46Hb1mvYwvSd4gDCSuFN A9WZVleQHzH3NwqB9rIjLu IMViBGNpU8GitHJgVZpbF675TZe hRdK0FEMulkXoI8QtSZCglTnhSy P8h6H4Vz8FSp64WM79FO17 pBZkb1L8cRA7C6XyUIKmoouoaig fpVH2YQSxBVQdfF48Pc6odSmgVj 4kEOZyNMC3HVMzuJQqL5Uh eI8oNdFkQLSyBDLoI3GiwPByGJa yP769LZjyHnN8FQTdymGkA9NtVY LvhHgnRdB5g3Y5Io0GSBxn tow9D4PaNrkroLX+PX86ABNpEK1 6gIRelFUmt5vijRb7OuIrZKYbUK N5kTizVSgku8RyZBEcI62j bGF (more content not included)... [facility] Consent Formson 11-20-2022 Consent Forms [id number]#1.00OTGTIFF [facility] Controlled Substances Agreem entson 11-20-2022 Controlled Substances Agreements [id number]#1.00[facility] Progress Note - Provideron 0 11-20-2022 Progress Note - Provider [id number]#1.00[facility] Provider Orderson 10-24-2022 Provider Orders [id number]#1.00[facility] Release of Informationon Release of Information [id number]#1.00[facility] Coding Summaryon 10-10-2022 Coding Summary HTMLBase 64 EqididayIUp8bAw+PGhlYWQ+PE1 BSOZiH37cyELvqC5iL6IONNkGJu auGMHHFQbBXjVlbjSwYH6gkZHcO XJu IC8+NU1pZAPkLkmfmVQup8E3dTD 4X93wag1cPHqyzPR3CRYhPuRmfk hdi2hzgTh8TDsuDcijBkWa GDVotT19SOJ4aH42Vp36yQGknOT cr4heqOh5PoHzVFFlTKL5lFyxYT dsq7CiLCCnP61cgVGtn5W0 JDShqQxqaSFhRePcdHU1xQ5iJDe hohtmk2xiapjzZao6aa03iWOgf4 T2qWG9M4XlgfG2XSQhwTEr HkbpqDBWhL2helayu4iwgiqaLhH fZOQqBFu3XZn3FZAyfIlwDsWrOG 45FGL2ZZCpkrVaV5OeJTTm oQclIbQ9f3E7Ga9HZ8ZEHkcbR7Q NTUFSWTwvdGQ+RC39da47H8CtOv ggFrw1YLMmPAL0zZT3fO3b NGAdDPcth2O7tTH1J8ImngUyhe2 vn3uvTKUiABecU49zsOVwf6V0QE OzvOI8CVSxhPduJgWchB36 Oyc+XBOgrEpue1NaIuosh0oen4s zrGi0GzneTNOopqGblOlmOPW0z7 ZsNt6iUZUhpQZ5iPY1pS0v UzJgGiM9UNbyM868JrPjgRAtAxh vP21lU0GbyDN+UGOmGaz9SFQnvB aqTI3yW2ZhJKZhclptoXDn bPbzQB8rOTOmlykgPEFayJ3vEYA wS0d7QiCpPbG2FBmcF7HiSVYbdi blPj88mM8gFzKnFcL4OEow D4CtwwV9WJHhgKQuGKbxXKD6V58 vy7V9QAHfGLQfNNZ6mSF0fP3jlC lnbjogbGVmdDsgdmVydGlj FGmiGKgcB144ZXCqkAxfXrKpXIc uZyBEYXRlOiAgMDgvMDMvMjAyMz wvdGQ+CBPsTOZ6nFcjNEYe jRUqUSafTf4chOuywKlrMU0qKGM kfbrxGVUaiY9zRAGlpTWkfSijZY 9qHCVnujrxa177UrFdFHB4 DJXdaMPoQ7MekB3gIwZaJMYfPJX cQ5QnuALfOLbdQ577BWplZkV4GI XkghFxT9GcBCSjfNjmVpS3 k1Q7Fg4Rd1ZgbwzdV7YrzVLzXmY fPninPTw4Z5WqXeqgkVE+PC90YW LrND19BGv8IBV8cZauINeq NSYtW6NrsX0uCfRlGTYyODIsHhs +PHRhYmxlIHdpZHRoPScxMDAlJy TazZykJX4nAl5eNGEaBIHs zBoxdRNaOaXma6wmBOMlDHifFU5 unHxyX9IuwTY1JJYpi1b8Up01A8 8xS1ZsfBC+WJBgqNC2aGB6 bQ0vDsHtGaE6OWftC496FoVmkRS jVzsfv5ptg4egxEt0UjJ1UUJnwx WaaTfeWHW3m4QnHt40S03g IHdpZHRoPSIxNSUiIHZhbGlnbj0 otG1rGg1+TJUjtDX7iWU0fT9tUv MgWvS5NPxgC544MfLpeOUs Wltjr6eoa6jtuNn0NsYtQROpdgG hsQpyLUY6f7FdVx22N0KutHfrz7 DrGog2cq71uIQbr6S8aAB5 P9LzNMAwbeehiTXkdQaiYM5yQPL bzrgfZYTslR4nSWPcF6m5YnHmPg G9THexE2EpcxZ3ERVciUOc LXDrwGAIqO7ogwqea6odurcxIaR eZWUaHJh8AZo6RKCgnOeyOcAbDI H0OxT4ASM3lTEuoT7kyAoo eupfcJ9cSxw+IZS5wVAjjTSYLL8 lOjwvdGQ+BVAbSGH4kRolFBslDS YiaP1xTMVsH6a3BiZqQjR3 WVzeE0KfkoW9LUVckVDaRYMnbEM YfG9gtzgrz1tlqpxsEwNfEUWtAU u2KSo8PXJtwJgjWdCoKIO3 ZzL0HGF0fYQczD2rnUtclwsabE1 wOyc+IalixZggABH0HSo3Y6CrSy x4SKDcyUlaVU2tyKOvLUai Jz1idZbgjIybEQ2oWKWaalrbo35 7HxWhp0pqHRVdfEVoFXkpNTH6S4 5vm1E3EIQrXOJcJZK6gGB3 vX3nwUclfcqaqHVorUyvzeGzyWd nAKuxSSgiO114ZNFtsQafZpStJF c1O4IxAiv5ZGJchMudYO3x oJCoFZdmMb9lsFcugUirES0bAQC xzykxs132KyRqw3opJTNwvVDpWD tvCYI9E91ha0U6QQWlDCVm XHI1fNV3eS2qdSwnglzaoKVvbCr xnuNaiZwoRWosVMwqW409QSKkeR pjFeQihBh3P4TgIgi3KZDl vKgtZH8qcXWgNYikQb8efMzcsKx cHI9kQJHcmvojo995HlYnc2zjRD YdmTEvNCuxGON8L51rq8I7 NUOrHPLtGBL9oPE4uT3bhNfcxcl gbGVmdDsgdmVydGljYWwtYWxpZ2 46IHRvcDsnPlBhdGllbnQg LLvcXQq7W0EbLdrfoRV+AM19ZLE eCB44mBKtlTXty1eepSn4GfLrSU MaRKC6mWdgFXnjn7NyLGNe B26efXUei8N2MTNzzSnzvSBiUwP jcOH8rS5nHHfutdemt8veabimOk kfu1tqde78cS93Z20gMCco IUQmPJWwUDOmHNMgyNijde7kfP3 wIi8+MRSatQE3aKI9kX7oVLWnJw C0FQlxP557HlCrvXTeYdkr q5plj8ptkZh8OwP1PQBwhrSovMh uGNW6r3KtWc98T60mWOmiAMRcJA UsAIOyMZViqVomry0grU5n Ii8+OSSrpGM9dUX9fV4lPyVmPxI 3XOgcY142MkHphYItPqivU22yK5 JvdXA+LLJvLyo1FQNxpYze RI9ksYEjEYcqFg5tFMM6GwUnQpX pUWedL5RyPHQwzisarijmxTT3CR WzKRQgdO12Dp9gqQqkIHTj eCYHrV5ddpyms5tstlreKmYkWGP rQKk1ZCz1NSMxmZgpKdFkJCN6Dt N7FKO1qFQluU4euDkwoipa eH5tD2IeQKAlsllnHc74vU7kBwP jObV1LCkqLub+TVVMTEVOUywgUk HTUNDNFYHZVOmHTjX7T8Na Lvn5YQZlsEdsIK9yiHRlZSgoRs1 pvJxdbXjbSZ8mOGBvjnneLZZdvY 6cAIMsaHRlqNxoOO6mGTFz loqcs890OzLpQOX6HBScdHOwP1J jtW4oWrZrOIVsQRLsL0OngIGsVN rhQ972LYmnOzA2RJHxcjMe L2VhYQKeqPkjArO7z7X5Nr9iVO7 zTf2jMTv6IC86DB61dOGxo1X2hK B3J5KvRPPhllzjjmkqnKO8 JOIdJZMqnX86lQUlNOvrFu9bt4L 5r222TUYbQBEgpD44Bl9zzPibFG FvmIQYiY0gwsseb5knwaft ImQnEKTmXYe8BQn4RQUugIlqGkT tBXK1RlJ1LFH7nVCycM0kcQappm xlzV6eSpv+MzcgWWVhcnM8 B4XvLba9QFWyeOdtWH5xqVLtUPu hEt7ztBrtuIruES4dFKWclwhtXG IkhQ0pJXYtoGEmbQmoPK6q RRMyvkncw117YhFvPFS9PFBwwYB rS9NheM6cOsOtNQChIKZuV7KpfF NpIPygF674GYgbYeS0BLXa lrDdW0RbJVRrbOngRxH0m7Z7Km2 RSG9JEMZ8F9SwTdn4NZMwhDchPS 0dxXHfMGaeYy4oyRubhTdu HD4eLDZszibxDHEwyJ4mDRTtsRR vyStvXQ1sGUPigyuef205SiTgGQ B5CZJggYKyP2IbuK6uBqSx SFHvIYHfY3ImeYMfUMmzL941CJh wYfV3DCDihwVyX2BlTCTawKhaQx F9r1R1Is2TMXddmYB+PC90 ac99Q2JmWxmsUmi5YRFxDYV1kGM 9hG0hNHNxQHvws4G9sHJ5N2Oanj Sevh7zj1fmGPWcUGuuJ84i sCMdm5A1NFOdbPA2OEExiDgjEvO lwD71Eea+GGKvsVmfn1TqMymbc5 zse8xlrQd9ZzZrPWEkbmLy eWhgCUB2l9IjCa00O90oNXhhQEO kPYAvNCMbEPAbjLplag2qlS7wTa 8+ROTqhUD2bLE1aK4dZoIr CfO4KXcjF493GkUejYOoOqyxs4f kn4xbdDt1SgPrUWHssrBrvSsdVU P5n5QoYr95R0BqbJswm4Gb Cct5jr71rLAfm7N2kBY9C1QpPFI uwbyxbYMuvEwmZT2oYKSosnrvRX ZkkM1sQXXxR1s4VmRdCfI6 DXqeJ0EqieR4SCUciJTaGCMljGS ZaW8hmzuhs0rhriixWgQaUVYgBW m6WYg0ZHZzoPyhCuYqTPI5 SdX5FHU5eKDidT1roYakmvhkxU2 wOyc+GXv8u3dqmUAaLR5ggCE3YL 09CI65sTWxt7R3eYE5L0Rd TUIzqdxqcexjiTT2EJSuJXKxnC6 1Zv0roAxaWy3rCHGpHQS4ZXWgeK HhW7PkmT8yBvToDSVoJEBq J8BoaDGiDFlbY918SAmgIvR1NGI gejCvR4DdIRPpmXdqAuD1n9W4Fm 1FFJ30EQ70DD81mHJap7Y5 fGY0Z5SbVWMqpwrtvzuilVI9TIO mWXLkfN39Um0pyBtrDw2yPHLuVS S0TTCppPFlS5JxlB4xLxLq RCBwDFMbF3UboLSlPIajG093RZs rZxV3ZQPkbtIwO0EcVBOnlCkxFm S0x2G0Od8MHr35TA00RT26 eMStx7F4iWS2O6AzCEJhmgvoyib jqXH0MDXkHRJxcJ01Hg8qbRevRz 9iDUByJTF6GYFkfPGpM5Cl wE5oIrIhNJBrQAUkC6KdlWLaKXl nZ975BPdaUmX8VLPxaqDeJ5CpDR LtkWztQnV8j7D3Vn3BCMdt ftg7Z9XmPpratBB+NG22NQCtMP9 0kUSwrJKqa3vwcWx9QsUdZXMvZP A6lRhnLEozx9RlUGXnT53m bGF (more content not included)... [facility] Miscellaneouson 10-03-2022 Miscellaneous [id number][facility]-2022 Provider Orders [id number]#[facility] Recordson 10-02-2022 Outside Records [id number]#[facility] Summary[facility] 2022 ED Clinical Summary [facility] ? Urgent Care [address] [place], [place] [id number] Clinical Summary PERSON INFORMATION Name: MICHAEL RAMON Age: 37 Years Sex: FEMALE : 1985 MRN: Acct#: Visit Reason: Medical screening exam; [facility] F/U-RT FOOT Arrival: 10/01/2022 11:44:26 Discharge: 10/01/2022 12:49:00 LOS: 000 01:05 Check In: 10/01/2022 11:44:26 Checkout: 10/01/2022 12:49:00 Address: [address] [place] [id number] PCP: Thu Baldwin DO PROVIDER INFORMATION Provider Role Assigned Unassigned Mati Bell PA-C ED PA 10/01/2022 11:46:30 Catarina Meyers SHUTTLE VAN DRIVER Nurse 10/01/2022 12:19:26 VITALS INFORMATION Vital Sign Triage Latest Temperature Tympanic Temperature Temporal Artery Pulse Rate O2 Sat 95 % 95 % Respiratory Rate Blood Pressure /95 mmHg /95 mmHg MEDICAL INFORMATION Medications Given: Allergy Information: No known allergies PHYSICIAN DOCUMENTATION DISCHARGE INFORMATION: Discharge Disposition: Home Discharge Location: Home PATIENT EDUCATION INFORMATION Instructions: Hypertension, Adult, Wzae-ag-Fdfv Follow-Up: With: Address: When: Thu Ochoaefe [facility] [place], [place] [id number] Business (1) Within 5 to 7 days DIAGNOSIS: Contusion of right foot; Elevated blood pressure reading; Hallux rigidus; Lumbosacral strain; Sciatica Patient Understands: Yes - Patient/family/caregiver verbalizes understanding of instructions given Comment: Normal [facility] ED Patient Summaryon 023 ED Patient Summary [facility] ? Urgent Care [address] [place] [id number] PATIENT DISCHARGE INSTRUCTIONS Patient Information Name: MICHAEL RAMON Age: 37 Years Date of : 1985 Reason For Visit: Medical screening exam; C F/U-RT FOOT Arrival Time: 10/01/2022 11:44:26 Primary Care Physician: Thu Baldwin DO Attending Physician: Mati Bell PA-C Comment: Patient Education With: Address: When: Thu Nicolasa [address] [place] [phone] Business (1) Within 5 to 7 days [...] Keep all follow-up visits. Medicines ? Take vtax-vov-pkuyepv and prescription medicines only as told by [...] ankles. ? (more content not included)... Normal [facility] Urgent Care Note- Provideron 10-01-2022 Urgent Care Note- Provider Patient: MICHAEL RAMON Age: 37 years Sex: FEMALE : 1985 Associated Diagnoses: Contusion of right foot; Hallux rigidus; Sciatica; Lumbosacral strain; Elevated blood pressure reading Author: Mati Bell PA-C Basic Information Additional information: Chief Complaint from Nursing Triage Note : Chief Complaint 10/01/2022 12:24 EDT Chief Complaint [facility] f/u appt . History of Present Illness OCCUPATIONAL HEALTH FOLLOW-UP Date of injury: 08/26/2019 Claim #: [id number] Employer: [employer] Mechanism of Injury: She was moving boxes of celery when one fell onto the top of her right foot. 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 who is seen today in follow-up for a work related injury. On 08/26/19 she was moving boxes of celery when a box fell off of the cart and landed on the top of her right foot. She was initially on light duty per [employer]'s telehealth visit. When she was not getting [...] History Medical history: Resolved Lower back pain ([id number]): Resolved.. Surgical history: E (more content not included)... Normal [facility] Recordon 023 Urgent Care Record [facility] ? Urgent Care [address] [place], [place] [id number] PATIENT DISCHARGE INSTRUCTIONS Patient Information Name: MICHAEL RAMON Age: 37 Years Date of : 1985 Reason For Visit: Medical screening exam; [facility] F/U-RT FOOT Arrival Time: 10/01/2022 11:44:26 Primary Care Physician: Thu Baldwin DO Attending Physician: Mati Bell PA-C Comment: Visit Diagnosis: Diagnoses This Visit Contusion of right foot (S90.31XA) Elevated blood pressure reading (R03.0) Hallux rigidus (M20.20) Lumbosacral strain (S39.012A) Medical screening exam ([id number]) Sciatica (M54.30) If you received any narcotics, [...] legal documents With: Address: When: Thu Baldwin [facility] [place] [address] Business (1) Within 5 to 7 days Medication Information: The exam and treatment you received today in the [facility] were for an urgent problem and are not intended as complete care. It is important for you to follow up with a doctor, nurse practitioner, or physician?s quality assistant for ongoing care. If your symptoms [...] so we can reach you if necessary. [facility] has provided you with a complete list of medications post discharge. 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 ? D (more content not included)... [facility] Progress Note - Nurseon 09-07 Progress Note - Nurse Patient called saad brennan a refill on diclofenac. Order is sent to Bia Goldman CNP for approval and signature. [Electronically Signed on: 09/17/2022 15:26 EDT] Dana De Dios MA [Verified on: 09/17/2022 15:26 EDT] Dana De Dios MA [facility] Coding Summaryon 08-15-2022 Coding Summary HTMLBase 64 BtoiqasnJSb4mEt+PGhlYWQ+PE1 EWVFyA46tyYXnrP6xL8SIUZdYXv dySSGZRUfKXhVakuBiPJ6unZDbY XJu IC8+MC1qPINjErjboNVwo9W6qYG 9U89jti2oYWinaMN1NKMbZpVakp wdx8lxhIh7YLboOqbvYfXt RJGthF64PUT2vS07Av04zCNsbVH uq7pfyCa0NvLuVFNwWUN9yNwtFJ slo7KaZAAtG84whCNup3J7 ONRavVcdtUBrWrWreLM1qQ4qERd hkxxtg1lwdjcmLey5pi90aIEjf9 J8bSP8R4IynzD2BLWshAUp RicweYOReF3aiavwj1rsvrinOqP yUFQmZKs6VAb7HJNwrAvoVuFfKT 13FLX3WALdyaOwU0ZnGJOc hVvxWsA9t4G8Qx5CJ9CCBpcgK0F NTUFSWTwvdGQ+IE61ui61Z8BzTe tlNjo6FINjNGH7sWM2pI2f TMOgKPyya9Q5aHQ2H0RxslPmmv0 uh6vpZDSfWJzyR62xmOAhn7R8BU YfwWY3BAHdvQfyBjGebU41 Oyc+QSMhpEsbq5KbIkybm3qap7e byIp2FqyeGRFmxeNuhPfsSWC0n0 EhSu4fEMJdwFH7tPP3wJ2i OsPwKyC9XCtuE630YnTboLGmHcx nX09pF4ZveUO+QGXcPdp1GYTluN akAQ6bA5UtXEOzzkgtcYTd nBcrXE5mSLFkesyjNSLejV6kPNC pH2q8IgYwRdI6XJghE8LwOGFwoq cwVk87qU0kAfFcYuE5VDog Q0WoidQ3YVZhlEIqKGlkQIN2L41 kr5C3XQSnLAZxFOX4cHZ2aT6fnJ lnbjogbGVmdDsgdmVydGlj WCwmKQklO056CCDjmWkaWjZsUHk uZyBEYXRlOiAgMDYvMDgvMjAyMz wvdGQ+NPZqTZO3aNheZWAw zQWcDPezPw3vbUxmlBffJT3vKZC apnjgOKYilJ4nAEAuwAClzMtrOE 5jKXPvnqien388WiNoQIN2 XSAyiVGbV7RojI2gMfUtIRCxQTC wZ9MoqXRgBFklE193WCuhIgT4WX DsxpBxR9QoUDThlUpwIdL1 e4O1Ij3Yu0MpyxlqT8LlzCWbKkO jXlpiBEt4E9SqLmysrPI+PC90YW KtEK96HIs6BKU8fUkiUEqt TWXaR8YkjJ1sCdYnWYNpEXJjBnz +PHRhYmxlIHdpZHRoPScxMDAlJy GuiIlzZS6wNe6qVSNvNVHk hWehgWUdGeEgc4jqJNXnSVfaVB3 uzDjkX9OsvIH2ETZeg6t2Co64B8 4oT2YvzZJ+EOLjxXY4qNE4 lY6kWlJrCeK1QBtoT013GaYyxQG iNddnb8eci3mcsPw5MnR9WGBebh LiiWuoQRG0s9LnKj90O07b IHdpZHRoPSIxNSUiIHZhbGlnbj0 azB4eQh3+ZFNmhFZ0rSR7iM4zGs TaSfF2PQsuQ477InBwaKMr Qzbgn4tfc7rvwKo1WsLcOIEtfmD wtDamVUG3m2WeOu38N2PgeToiv6 YvOtq8xm37dEPqw5E6cQA9 I2VlYNPuoujjwVPeiLblKX4nAQT kuhjxMNJyaN7gHHPtT4y7JeNjQw N4DXfqA5HhugI7DYNacVYh RITbdQTFiI4gfgntr0ifugqiLgV tUCEaIZu7VMz6DUChcVrcTiZlMI D6BwG6IAE3eQOopJ4rnHat aigrcL4qKfe+MKD2lCKizEXENI3 lOjwvdGQ+YLLxCDI7iFuyXYhzAZ LrrX0zHBVnQ6w4OcEdBnP3 DMppF2XvckT8CYEzuEHmUGZzeAB VsP6hfieqo0dsdctpQzKvPSWwIG a5NQe6MWFybPfnQpRuQAK2 TtJ3HGK3dZGeuB9ioFivcghofQ6 wOyc+QacocIukTXW4NIe5R4UaZs x9CTTpfWhtKH0xcDPrHJqy Un2oeFexaVcsHF2nNOAtxhofq50 3BbJxu5rdXFPtfUBaSDwxJST0D6 0fm6H3KKHkXMMyHXO9rAB7 jH7feDuoigpufVDxxIgdjjAkaOv dLUcvPCpyO431PYQmxLesHoMaYT b6D3TbLmd1TJMmyNddVZ6n oASpVHplAr7tiOsdaAgoMX9iZVF deodqy670WzXni9eeLQIulLGfHI kxZGB2Z99jj5C2PBEpONLh KFG5gXV3zS8caPwuphpfsHJiaMb qeuMibHqxYNidHOfnF216OSGqgR hnGqGmwSm4H4HsGzp4KWZl qOnxMC0rdGKwNPjiFs4osSwuaNg aPH5lDIUdthehg258PgSde3pmXA PnxMBzRFkvQNH2O95oh6Z7 YPVxJYWuFSJ2xBC0vN8nfKgharc gbGVmdDsgdmVydGljYWwtYWxpZ2 46IHRvcDsnPlBhdGllbnQg ETzoCTw1Q1GnClyknCD+CI27YZT hDK09jXMssEEfm8ybkRw5JeIeBJ WaCHE5aNgyHJvgm7GcYMKs Q74kaYSxo5P7WGAqzJyneVHeOkZ onLF2hE7xCOjehhhcp6bkqgppSj oeu1bwyp68gX75U64pIMod KAMiXSUnKTGwBCBrcGahlu0wlC1 wIi8+KZKqmAL9iCP9pQ6wBWLxJe E0MFkjJ309JtCspVFbLreh b7gmo4rggGw2FrI6NMQsvlOpnEz dIXP6i0CuTe92M78aBQniEBTvUJ JqYAVbEXLzdErmnb3jsW8q Ii8+CQJusZE5vKF0fZ0tAxScUaA 1EJmwN948PuBjmMMgKtdfI40qF9 JvdXA+NEIhGlq2MESriLfo SM7mkDBdQUugBe5qVEP8PbXcHzU rARtbG1BmZNOxahejvovhfAA4HS GzGUNsiB20Ux3qbWywNHIn dNITdG3bwjnru6kbqidhLtUcLDP kPKk3KLa0IEMfnShhAhQbAWJ2Wc U4IUQ3jSFvlA6jaCrvsrli uO8nX0ZnBQGhkrkyMa77iA9oJbF uQcG9GDjgRhb+TVVMTEVOUywgUk JBCZDHJOPIQRoNDxK5H1Oy Mpt5USUrmUihLJ3tbCNjTZcyLk1 izCkriIwnTK8hMYHksflsIYSbfN 8xXOGjrRTaxVqiFP0dUDTx emlou647NoCkTQV6VOFnnLXlT0K tpX4qUbVbTPMgVNAsY3ShxKGpRL hjB746BIbhXwQ9ODZahcKr G5PfXKZvqArwCaL2r5P7Rx9cPQ2 iDy7sNGu7VV79XU07uHNkl0E9bR D4A2YvQIBkzmfoqakrgMD3 GCBwSVOokL54iLRpUGhoRb2dv6M 7s480RAMjMPPglV12Lj5wrUeoBM IjuOKRzX9hmrhhn9wwjvtj XlCqALQqHLn5FNz6LBEmhXfhDdX uYLP6KtW1LIE4vUBttH9tfLskfl vllK5gAnj+MzcgWWVhcnM8 S0PlDcx6BKTbaLvtHL5beIDqADh oYx4ytYmmoSwxLF2dTBIadhuoSI YsjA4aPMSobOHjoDiwFL8f NEHfhsnzc546UgLnOZY2DJBstKR dL2OwnW0fJvHlTIXhRKKnH4CvwU PvCTrzT139UGnuUcG4HSKq zuVoC9ArYBRtsYbqDdM6k1M9Xq9 HNL6SVHR3C2JoVxj9XNOjzPzvGJ 4riRCbCUltJh2hqKcnmMfk AP8oAHLqugraSEOeoX3fUZEmfGY axCnpJY8fIKHqhsugq423TlRiCN F1HEBclALiX6MdqS6nJwAs TCTkGTKzN6RbpXBlCLukQ348EJo mNhI2GZCubbXwO0AiAPRtuWsxNp Y7z5W5Fg4PZTF9haCujtgg O9W0nRK4fJCfcSqdpBU+UM99sy7 1O6TbIhclRsx9REHxTNT4wKR8bD 7vDXKpHNwlc1O7rDG0R6Sm spZmvy6pz7dmAOKrAOkhS98mjRF po3S0TKBrvXU8HJIkcRmkYtFvfI 93Oyc+NZJovByvs6UzMtsl o0emx2uhdUs5DtXtSCNaxeDmpZu xFRE8x7QjXh63R58bYZdnAIAlPL MeQZCsIGSqiYtvgg7xnK7e Ii8+EYPlkXC2xGS8wH8dZfRbTfC 8HYkqL262IkEkeVAuSfwtc1npq5 xoqYx6LcNyNDHgwvYkkSap EMT8n9MeHl31T2DpzDhnw3AoAek 4br34bIEsg7S6wGW8X1VzMRJznx uuiPIqzFiaQM9tSGGnbybh NSEqiR1bHBTbA5w4EwLdAxD1ZVf mO1XlmkS7MJPclBVySYSxcDUJdU 4ezpqdv9hjftlwFpAgSYDp HQt1KFx4YYDrdDdsNdOkLMU4YqW 0LNW2gJNskI1xvLpdfrlesW8fGb c+XNk4k1zzpKFjOZ4gcHF3 KH91OM19iHCaz0S3fHL8D9JiGPU gtbndfxgueWZ3NXYoKPLsaT62Tr 9zcEbhGv4pREFsZVS9QLWd pYSzR3LchK5oNcAoEOWhAVDjQ6E lbTXvDHepZ960QOwoZxS0BJAbkh PvF8JxWWIwdVjwAtB3j7F9 Ls4TGK98SX97NK43aGYrt2O2bNJ 6B7YyZBOunmjdzpnvoHG6QIYsFQ QsnE64Dq1snIqfEa5qDXBx CIH4GERjkSGfI0QkdC4aSeMgPPN wNXEkK6OxeMKxOVphE231JEkcRy W1XSEcqmTkS4AeWBAjwSwo OaP2z1K5Ul4QHs84SG60ZF42nCN kw8S2vZX7O1YrOMHoxfwyghcceO Z8HEFtHKSwiH81Bn3qxZfc Xt8qNEIeDTZ6JOEjjBCvT0KngN3 xJcIrTYTiNFYqT5DrpGDaCRwkC5 00IEvhDfF4INFamzGhC7Uv FWNupRfyBuA8x3K9Ha5QILczvoe 1O9DzBdfygFJ+CK31VTOeGY07xV CokLThd4iltGy3ReStJOKm IHN (more content not included)... [facility] Provider [place] 08-09-2022 Provider Orders [id number]#1.00[facility] Billing Authorizationson Billing Authorizations [id number][facility] Provider Orders [id number]#1.00[facility] Progress Note - Nurseon 07-10 Progress Note [...] on: 08/06/2022 08:00 EDT] Deena Silva RN [facility] Provider [place] 08-06-2022 Provider Orders [id number]#1.00[facility] Coding Summaryon 07-24-2022 Coding Summary HTMLBase 64 FefhnitgKLm4dPv+PGhlYWQ+PE1 KGMLkU64oiPWkvJ1XD8iSGN6RZU IKPKPZMM9GGX0pmJR1ZXewH7Sfm iAv ZuuszNFhGY76TJs4EPF7cOkbMTm wsT2sbXCnW7f3NfWiVR52yE18FJ zuGNWoSnF8WxUxqesvqYJi S0grJpQoeCDcHoq+PHRhYmxlIHd rVTWhFNrxXINzRgOeeTotLE0zXu 9yZGVyLWNvbGxhcHNlOiBj f2apFMLmBVqwSD8faSwrU2CecVO 3CJVya4x6Yp46aYV+TWBcVVK7fQ xeEPwiv226LvWmv0syLNM6 aIVkRNjmDXL5O52nv0N2IAToQAJ mJNX0fMD1qB8zvYznfnvlH3IzrD GuYcV0AGB9iLXufP9wuLdo dindsF1kAhu+A15HCO2OOHXGSY8 SMjs7W8DgHcfqeGL+TS74IHCjNU 96pPTghHYpg2dgsQw1ViKm HKRvJQJ7iKgtNJgih0KkYQKwN97 okOIrj3R0OHQpyNevbVTfMlNqrB C4fM4gQUzgbmssc7ltrktf Slbdt5wgtd95yP81K37tVHvfVTX pATB2TMCyHVHycQjslo2olT5iSj 8+OBomt1kud0crqNa7HmSu HNCygbSjlVqqHTD1n5DaFn42P5K gvBeit2PuRvo0tt32tZRua7L2mW Q6ZWjkCKDxxM6fHUbgYcP3 KHHnWgCioS87zLPvCMvrRq8suJw lzIgeND4iKGIodrkeFCRpkN1gDA RboWGcvVgvKL9zKWMuxhkb g552JyLhNRI3TWUvrMKiW7WkoU2 gGfXyAROhGXDfX2FfvNMkQDlvL2 28PNxbFnY4OBMhicQrC9Ht KTKbrQakHwN1e8S3Ew9Vq9Iqvil hXGT3ONekZKE0AkU4FdNoAtN2U5 ZmCqu7XVYsfLbjCW7uP2Jw OGEgqlckgqohdFZ7VPOrWTMlkI3 1bLGdXStrHy5yb2I9z567XWIeUT PhiG53Mw4dgBluVNVvqWUL aC0dldjol6oizhdxUhViAIFmDJz 5CBz2YIGtyLwwXiCjYUY7YmY7XO S6vCKpnL0iuMlvlapgdH2t Oyc+E75amH7gECI1NRP7ggpeTJT dtvUrPD62GR01X3XcJwovlGQjaI U+BOXagzCitYsbXD8mOzFc y4lei7XlRFpjG6VaVWIoDQxrAgt 2TKKdKKA7nRL4uW1nMNDpHQtji2 V3fSU8X4VdnkXnuf3ra1pf QCXeROmyE40xrNVvl8N5QZEtlTY 9QTLabAszReDeyU77Geo+PGNvbG mnq9WsEmrqn9sbf8nfyKq6 ZoBoXKUjdlNbgJuvION6j8BcPy5 6E88qYEmnCPRfFLYhDTQiIEJbwL tpwb5mfU5xWw4+PGNvbCB3 iUZ6xA5dJEKuGeX0CFxgC185MzZ wiFLeHnbuo3zvv3hvhDw0PpVvXS LyobJxaMhwNVM3l6AxUh54 P23jSGoiZQBdKXIzZXIwNTNghRm zfg2zuI8rIr7+CS1qd2yydp38lY 48dHI+FBHyYBC7rQzvKCoy TKYaeU6cJIraAbQ1NPQvMzQxxQ2 3cZQrTBouXs5lvWlxjRzfQV1lKO Hjpbvat842DcXev5swOJBa gEYeBRslWOK5O34kl1W2CRSjTZT yMOB6cWZ6yD3elHoxbsinhMMghR jnefQhwSojXQxpJEqzY009 IHRvcDsnPlBhdGllbnQgTmFtZTo 8R3TiNdy4FXGesFjiBH6spTQbGS vsTn7iqRoxsIqaQA3dOXIy emxfv486FaHim7mfOERlzTQrYWv lRWH9B75ue5D1ZNLhDKDkZXW9qU J1zC0igXecxhdkkASeyCpo yjZtyXukITsdTWdjM388VLVgaDd lRrPfahOwWXPwnLB1AY82EB61nH Gbd4J0uIE7J4XrCBVfjlsz powusGW9ZBLaHGGipH06Bf0unTm bQu9oXJCwHYG8MPYwzPRtD5DznR 7eWeWvZEViXHHdG6ZgiYSp ZJlyC075ENpxNkB2OCMigzGwR9S mHFNfyFcmLhR9g0E8Lr1UY8R3WX 63UH81fSOat7Y1cLY0W2Co BPHndjhohlqzjAU5ZNLjZIFwwX7 2Nc8ofDguKi7aFNQxXHA1SDOsrR HtJ1MfmR7yGeZgBZUkDEOc Q9KlyPHfVDtnH908PThjDpD0CZX rbsHmT9WrWHKjyDgwLxS3m4H8Xe 3NQCj6JB62WB58eRNho1V7 eLV7I1DfTCXmkmgydgvgwAU8PIP kPSXbaU19Qj6obQcqGb7kCQHmVX E8YYIorEYpE4TkgY5yRmYn ZAWvRJAeJ1PpwFJwDJezE058LEy oXlE5IXXcebDeG2ImLYWtzHzcFs D8s7P2Cn8BWEMnEE30LJU0 lJN2UV62LX05L7EwBkgjwJWmyFN +PHRhYmxlIHdpZHRoPScxMDAlJy NdbMguKC2jWc5bTQJtKGCu nEvktZEfFoSpr3szDOKxTXfnBM1 rqKxuT2KitJS2UOSxt6n4Rv70G7 5zQ0LvgYD+KHCewTB9cNL3 lD5fWeQnWiP7HRbqG331VjSqwXS xQqnke1wxk5fdmIt3GdH7ECXzsy FxqIbrMTB7x7RzTs27D29y IHdpZHRoPSIxNSUiIHZhbGlnbj0 vuL4yOj4+WWRiuGM4kYT3rT8tOu IiVcD1XZeeB684BmIkdNDo Kcupf5tgi5dyxEr9AxNdPZFyskC bsDqjYYY5m9XmTb51D3PfkJnji8 EtPjm9ni42bLSgs9E3dPB5 O6CaWAPtnacdsZMcsLuhMW7yQLU hidveGGBlzZ0kBUInC1a6WeHkJm V9TVvjG8OkowF5QVMvrSNf XHuvXLE3O08wg7S5BKPbFDUeBII 0yBS6eX0miWppeqcgvZJydMptwx AsdMueHLeeRUckX732UKLa nRivBJHixJ6wKXKpkJSftJadAO1 hRFIymrkvOp9RXExBFwPdBPGFTP QEKCNFMJHQZK8JAK01HL86 hYYil2H8vHP5R6HkCEFntegeerg rjKJ4ZBYlTCHngJ70zESpSPzbLs 0rj6C1q137IWHfMYCfuL88 Zb6prHkeBFWeoLODkG2wczyxk6j alsbkYuJqTSBkXQw4LWp0VQEvrC ijChMbAYF3SpU2DXL1zSIc yZ0lqNxcoxzadL6uBjm+MDEvMjc aZDl8FvoerKC+WFMcMVA9uWshVX mjCAFdwP6bGTEeE0t6YjOb WrZ9CHrxD3AoRAHswxubRs83rX1 wWrGkGkU7TKtbJ7MbzfL5RMFkpY ZjCKpaTEH5F65yu7J5PNLl HCZfVMB7sLK6aR3dxOthltkxuCH raJbjpsIpbMjaSOvvMArjD115CN JbsOixFtJ2XYaqZOVaAW72 KL51aWIek4N9pME5I5SsIVXausn lfqfhvZQ6VHPvGOCtgI45yNOqJG wwEa2wk8G9f411OVPdHXFp kJ68Dg5kyKfzODFvqIHZzK1mpwk zh8atxlyoNoEzDLMePIe4JBr4ZT TzaErxOqXyPOO9ZrV2WBW6 pGYpsZ0ghHogpafktW7pJjs+RkV AGWkPIK70EV22rCOoc7C9qDT5Q4 QgZWNygqnbardftLG2DCZz KSVmpA97yBOaNYumZm7ek2U4f34 6JTPsERCcwH63Bg7eiVprJRGltF VNoH8fctecm4otybepYwRz BTJlCKe8SZp0TFXuqXhyJvZfXLI 3NrL4LFL9kGNsrJ7htVstzxepiZ 9wOyc+X5D1X0TgGfhszQQ+ CG03TBIuBP57yPXypAXol7ppuXe 6PwZqCDUkQCG7aDdsTOzom9LmFB OqX69evEOlv1L9FDUkeOli gZIfEiAfkJY1sS0pOCbsxcivi8p rzegaWyjxo5bjvp38xA83N33yUE dpZHRoPSIzMCUiIHZhbGln go2lxU6vSp4+CQJoyMW9bDG1eK4 dRiDxFoE2ZZlgF079AgSeuKUlKx elk0hjy3gcoVp7FdGuRGUn bbKcdHtlONY7i8ImQg21Y40rGVd vHUDfIXIaFQRiXDMkhXekbv8jqI 9wIi8+ZO4hm3wubs53aC42 dHI+JLWeCHI7aPmeFFioQFYvlG7 tLVjmHvX0TTUfZhDdpZ61tKPzAH jeCn8bwHctxFfqIR3wHZRt mndtr921MlWjt0roSUUttPDpZAf hSMB3P97yh7O1MGVdGJBoPDW7qQ E5hW6pxFxqywsjsMPkxQow rrBbhRmbMCswWJsuU839RBHxlLm xCuEyvZQcT2tplaXYPK8wXwcifR Q+VFHpYUU9sPkvKJgdBPTi pX2xJQAcJ9d3MsBqKkI8ATtkW1R xrtN8WQSfbOUqXESkwVKPnG3fsh uca1zwrclbIsRkXGPzHJd9 MEf4MLHhcJpjUzYbTOM4RkO1WOT 4yLGgmA0ftUdvulvvrA1rEkv+Rk lOOjwvdGQ+ILTuWGD5pXxo PNyfHCCgfA0zVIRwN1m9HfArSqC 2OKsnF3UgjkY6AUJzyFPlEMPklR XHdP7gykmhm3eccbxnSuVs VPXeIPd3WWr1FLAfwLjvEnLcCWG 3PsX0RRO3cTJrdU7ugVpvkfpwgV 9wOyc+TVJOOjwvdGQ+PHRk CJS8vDirRTllAZCsnO2wNIIiG7w 6RdQpNeO1HPatC1FwpvB8QZWonD NtWOGziOIHmN9abmsrr3ak segcCvGzZOCwPUj6ENg4ADWlsWn eSoHwQEH2QnP1LJF7lOAdkC2scK kxnegnjU0kGhq+VUS3JOR5 KY25NS87L3SyHxaxmHAyoJB+PHR hYmxlIHdpZHRoPScxMDAlJyBzdH ngCK4fPt3uXREyCICtkDgf cHN (more content not included)... [facility] Physical Therapy Noteon 05-1 2-2023 Physical Therapy Note [id number]#1.00[facility] Progress Note - Provideron 0 07-19-2022 Progress Note - Provider [id number]#1.00[facility] Outside Recordson 07-17-2022 Outside Records [id number]#1.00[facility] Coding Summaryon 07-16-2022 Coding Summary HTMLBase 64 EldaidnbNRr9gXy+PGhlYWQ+PE1 VQAYrE16nqGQpeK3JZ6pCKS8TZB CJLNWWCP0ILX0ehNA3UUllY9Mrk iAv EiyfpSOoEQ42ONh1CUO1qHbmAHl uzI3rjTLpC4b4UuLbXX92aV21SQ pwPJUiJeL8OdTqqftsiRHg K7ltVjMhzCFiPng+PHRhYmxlIHd kZQNgHYfdISPtXlOscLwnUY4uTe 9yZGVyLWNvbGxhcHNlOiBj i8qkTCXcOQdaFM3vuRvxT0SggBH 3RGIig8i9Ob60kLX+UXAlNHK1tF lfFQbsc599LxVpg6unXRK2 qAQwTIxsVJM6L67wn5A3ZAViOJB cUTJ6iVR4dX0paWjhsiiqD0VxkK SaVoB7CND8vVTxcC6rgMlq ikfcoP9eRfe+A68SQL0LWKSAOV9 DGrz8H3RoZwufmDE+NX91GMPtDW 32xXBmmTEay2mqwFt6SkRh BGKgSFU0kJbhFDshv9DfEKNjI09 rjSGio9F2GSOovXofmDWlIwHirC L6yC3lZZacmczyb8dwgeij Zxekt0ydaw19kZ27N96pOXnkEHA uEOH2YRNrQZGvuJgjqo8loC2mAx 8+XPkwf9kwx9gvvKt9NgQa GQIwazNxuIbpWXJ9r4TmEv18L2U liVmxf1YcHcq7zh79zRCfy0W6hC P6EYqyRSAaxI4vPSenAgE9 MQMaLhVcfR08sENqEGcxYb4wwOw vtMgaJZ1xOQKehfduQQMiqY7dPI MqrPMwtYvlAC9zGUUiqeqr o784JhOnOLP8TMIxuNJgM9FbtG9 dYsYnLHBfLCAxC0GzrGGvESyqF8 74FSsuQxA9TYWidhIkR4Ac ZOTryYoaEsI9r2W7Co2Me2Mbtpl rQQF3OJjgQEW3LoS8EvXpDqR9T5 BxXuo3VJUglXxuJO4tG3Kp JPJnualbqfjkaVS4DCTuBMRyrM0 5sDUyGOfrWa0fk0I8x653NCPuIV BgvO62Nw6vyFzoXDBdgVXX zZ5gwwhoq9ipnngnHuTwZJWaRNl 0ELq3RYJjxKmtNxTlPIS4YtW2ZB P2mEIspB1hsOztqzaxoG7e Oyc+B53dxQ1xEHQ6RSO8axccERH sxaWeYH66SL38O7UqNpzujWIopH U+LQDkglSddKksWM6xIfMs o2fzx1XtDLakH3UeMFEvEDcbJvf 5KINlVMI5pTL7qS6uCFIgICarx8 D7pKK6F7YbrjBtua0mj0ru BAEgHZutN62feKUqb8B8ICApkWH 2AHIrjIjxSyWoxG95Naw+PGNvbG soi3VrQigyt6mag6hthDc4 MhCaWYLohkEazOuhFXS0m4BkGk6 1L93jSPxfVTByOYKyKAMpIEYycK vgah3jpO9wKz8+PGNvbCB3 mLB3mX9yIRWmUbW4RCyfD224GlO vvTDgGqpac0syf3mwwEw3ZmItNC TbarSqmQxyDHG0q5YkMx81 D91hBFuzLOBxDHDySGEjVGDzmCv ett8zbL4hFu4+GI4zd8spmv31jB 48dHI+TJEzETA8fQebBIyz RPTtiL7bAWplUjV7SFJwZoGofZ5 4qWBmZAchTn4rdLhfaKzsIL1pCC Zkuknvu946RxFsw0khQXXn mVFqXUmiPQT7J24ga7U3CHBbUIM rQFS4jMR9sQ8xmBtxwhkanPAfgJ afmlKvgIbaSTidKZfaF813 IHRvcDsnPlBhdGllbnQgTmFtZTo 4R3HdKmp8WDYxcGipMS9rcSGlNT fxQl2skLcnvPijLV0mPMDi vwlgj553GdGav9viFUQuyTLiECb tPLL3E31fd1A7ZFVfCEJgOYO8jG S1wC1wzNlnxigpkPPzgMrq hoFpuAtoOAdkUTtmB231DAUffHs kVyOgwmBbRUBzaDE1PW88AA55iB Zbg7Y1xPJ6A6VnAQTfgwpw hghyzSO9TOKkTUGczW78Xw3ctIp eNo6jTHOeLCP5ARWcsPUqB7NdxG 6cEnUwDLKvBQQfK3SfuRLg IRioC718NJzeHcW9OZNxezZkA7W yQZDmgLujIeP4u0G5Sf2XI0U4XW 51GG46vAAcf4H6iPL6Z7Hk BUQsmagccdqteFF7TAJvBHLzaM1 9Sc1xtJgaYt8eCWHbMYF6SXTlxV EjT9QbwR6lBaTyRNNoVNRh U5UerUGhCOqzV524JXuuDnR6SGH qmvDcF4MlJZMxpJgmAoJ6z8H0Ih 5UAZr6CI29QS16hIZiz0K0 iFX6A4ExFRWmuxxeojkegWB9PQT vWMKwiQ78Nz1idEjxBy9wMTThOC Z1CNQncXIsK4VlyH4yIzRo OQMuJTWqG6SreDJdINnbC296NAo vAuY7UFOywaEoZ7AbXERjxXuqQk M4r1I3Vo2TXUYsHA82NCI1 pAV9JC25KM04C6PxWytjoOHvuSN +PHRhYmxlIHdpZHRoPScxMDAlJy FzjYpjJS4nVs2mPBWfMBPd xFdizILsBhDsz5ecQCSqJWsjYT7 unPamY8FarPR5SXSww3m2Jz22U2 3iI8FrqHS+JSQiwXN6xMW6 pF8lLmCuZoY2GBmfF553FeLhsYI bDqosk8yyy9vvgBl1DhL8QIJjiw RtpKfbLGB0w2XuNl62X01q IHdpZHRoPSIxNSUiIHZhbGlnbj0 mtV4mMo1+ZDCkbRI5pPN2qB4hXq KaUbS0XLgkX152NlLfsOPn Dwckd4rjz1iboGs2AcZfXSFivkR guRcfLFY4s0WgGq54X2CqiKwwt1 IfBwm5fb48nRVxt9E8wCX7 G5MwSBRhpbhjwYIyvSthFH3yYXZ etehyLJNwnE5aYZEuJ0o1QkZnOb Q2CCftR6OcxqL4TIImyVDm AOplZEC6C77xj0N5AWSvDGVxIDJ 0yZB7rV1mqQrdajpkkBJcaSzfwc DelExiKQotEYshW883DSAl nMjaAJPszE3mXYSabOQuaJjlIY9 aUJDueqclCk5IYIyZOhAxHFDVAV OXLEFGCATUNL5JZN56HN30 mOWmh9J8iQA7G3JmVSKqnrzniac weGR2GARvEQAiuM19fQLaFYzkKq 5dy5N0m136RVBnZLYyyB93 Re1ubFynVDPqxAMCrZ0oefbrl3t agpnfBcGtEHOgNBh8XRl2ZNIgeJ coIuSiTKV9VbC8GVS0gYKv eN8iiKencuwwhN8nXwk+MDEvMjc sCQi2JxopbLP+HALaZNC1bQaqBJ ipMCCtkX6dXGQhP9x0MbWj SsJ6NLfjU6WsAREhjutcFw64yJ3 nSqHrIrN5GErcL0BuucY6DINbkB FjNBkwJCS1O90cn3T2FPKf IJHkMOV4gKG0gP1klJeabjectSV tsSdknyKcuSwgMRldOSpeL713FM EgxTfyOqR8GCldJJRlGF66 IW90yPAil0G6tGQ4X4PzPEOdqjm tagopzZS2SPKkVLEtpW37mYJkUM hgGu8gw1T1l737ILMrTPCi bP29Xb0yaSnsZCNwtJBExN7byyv np0xevqsaGsPrYWNsJZp5ETd6YV BqqBccPpEyAES7RcH3RRY4 sITphT4fcMcghsnisN1qSke+RkV OVPgVOW34AM75fKBlh4K4qJA6Q7 JwBOKjxtajyoczzQT8ZGUs QMKgjV40nGDmGEahPw7bv7H6v00 7TDCgNHEsxK55Vw9caOacRMVggY ZWrL5ehyngl1ckjqecYaKv QBWvBVl2WDv2MDKrtSkzThEiXAX 1LhY4OZD0xILogU1uiXiwvanqfV 9wOyc+I5Y8C4NjUvdkhQV+ IK93YNWoHU86bVRosOHkz6dfnRn 8DbPyGKIqZIM7xXvtDItob6GbMJ XvG98uaOTov6C6IVXjzTbw vVZwGbZmjSW3aR1tFWjskghyq3r xqmfzLayhz6iwxl91nW40K32sCI dpZHRoPSIzMCUiIHZhbGln nv3lsX8bUw4+YCXgaRR8vTB2wX2 eYgRkIzJ6TQtqO998GtNicSXdKn ywl3vbw3qdvOs1WhBxBQVg xpXpgPdiIKR1i6QhHb81Q10iOOj rGHFmDOJtEDMtJGStdUnlvj9xsX 9wIi8+WW3of2pgzb52tG84 dHI+CWOaBDS1lDlkLIasPBBieX2 oGQlwAsO4HTDtXtOhkW51wOTjDH wzIi0fqGwgbFhpJN8kOGFh vywkj919OiZsg3lgWFCloOJzIBc xFGO4X64jx7K2CGJnWHByVUU8wW Q9uI4cpWjggdrcbIEcgScj htEaoLkcRSloMOniF924QIOmoBs bWmKhyBViS4beelDFFF4qKnqavQ Q+DABeXPL0tMctZIhoUWBt zV3oJJRgJ4b2UkJnRgX3ZIaiJ3W pvhS6ERNijJOkJIUwjMAVkW2hpw fqq6wzlyftVsDvJBBwJAs0 CJg4TCOkcDbgOzRoSQR4TwS4AAG 6tEWzyL4jpLtmifumkG0eEuf+Rk lOOjwvdGQ+EVGzMBQ6qVvx FTfySXDuwL5zRDEnS3y4XbOeRgE 1PEphR1XjrpZ8MTFbpUKdKLJenA ZPrV2utnmey0ggnvmsXyQw SQDhSIm6OOc7GEZewGzzGtNcUVR 2IzC9NOF5oWPteX6joDfbvgsjeM 9wOyc+TVJOOjwvdGQ+PHRk RYJ9oDxvNVrgYBUziF7jPOVzT9h 9DlSsDwN2EZkgZ9XfqmQ6YHBprG ZkRBPqxJJFcX0cqjrtf4np psuzScFlHWUgKYd0CQn3SPOljQl oGiNxRUV6XeM8EYQ1vNSrzR9mbA xrkctpeW8zMop+BRB3EXP5 XF93MG82V6PwJnxkcKAsjSY+PHR hYmxlIHdpZHRoPScxMDAlJyBzdH qhDX4pPv7tGGJpVYAeySdh cHN (more content not included)... Normal [facility] ED Clinical Summaryon 2022 ED Clinical Summary [facility] ? Urgent Care [address] [place], [place] [id number] Clinical Summary PERSON INFORMATION Name: MICHAEL RAMON Age: 37 Years Sex: FEMALE : 1985 MRN: Acct#: Visit Reason: Medical screening exam; BWC F/U RT FOOT Arrival: 07/16/2022 10:28:51 Discharge: 07/16/2022 11:30:00 LOS: 000 01:02 Check In: 07/16/2022 10:28:51 Checkout: 07/16/2022 11:30:00 Address: [address] [place] [id number] PCP: Thu Baldwin DO PROVIDER INFORMATION Provider [...] Home PATIENT EDUCATION INFORMATION Instructions: Hypertension, Adult, Vuhs-sl-Gmpl Follow-Up: With: Address: When: Return to this practice Comments: August 13 at 11 a.m. With: Address: When: Thu Baldwin [address] [place] [address] Business (1) Within 7 to 10 days DIAGNOSIS: Contusion of right foot; Elevated blood pressure reading; Hallux rigidus; Sciatica; Strain, lumbosacral Patient Understands: Yes - Patient/family/caregiver verbalizes understanding of instructions given Comment: Normal [facility] ED Patient Summaryon 023 ED Patient Summary [facility] ? Urgent Care [address] [place], [place] [id number] PATIENT DISCHARGE INSTRUCTIONS Patient Information Name: MICHAEL RAMON Age: 37 Years Date of : 1985 Reason For Visit: Medical screening exam; [facility] F/U RT FOOT Arrival Time: 07/16/2022 10:28:51 Primary Care Physician: Thu Baldwin DO Attending Physician: Mati Bell PA-C Comment: Patient Education With: Address: When: Return to this practice Comments: August 13 at 11 a.m. With: Address: When: Thu [facility] [place] [address] Business (1) Within 7 to 10 days [...] doctor. This is important. Medicines ? Take vnmp-buv-uvaezdg and prescription medicines only as told by your doctor. Follow directions carefully. ? Do not skip doses of blood pressure medicine. The medicine does not work as well if you skip doses. Skipping doses also puts you at ri (more content not included)... Normal [facility] Urgent Care Note- Provideron 07-16-2022 Urgent Care Note- Provider Patient: MICHAEL RAMON Age: 37 years Sex: FEMALE : 1985 Associated Diagnoses: Contusion of right foot; Hallux rigidus; Sciatica; Strain, lumbosacral; Elevated blood pressure reading Author: Mati Bell PA-C Basic Information Additional information: Chief Complaint from Nursing Triage Note : Chief Complaint 07/16/2022 10:53 EDT Chief Complaint here for [facility] yoana, of foot injury, states it is better but not 100% 07/15/2022 10:00 EDT Chief Complaint right low back pain . History of Present Illness OCCUPATIONAL HEALTH FOLLOW-UP Date of injury: 08/26/2019 Claim #: [id number] Employer: [employer] Mechanism of Injury: She was moving boxes of celery when one fell onto the top of her right foot. 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 who is seen today in follow-up for a work related injury. On 08/26/19 she was moving boxes of [employer] when a box fell off of the cart and landed on the top of her right foot. She was initially on light duty per [employer]'s telehealth visit. When she was not getting [...] 3 m (more content not included)... Normal [facility] [address] 023 Urgent Care Record [facility] ? Urgent Care [address] [place] [address] PATIENT DISCHARGE INSTRUCTIONS Patient Information Name: MICHAEL RAMON Age: 37 Years Date of : 1985 Reason For Visit: Medical screening exam; [facility] F/U RT FOOT Arrival Time: 07/16/2022 10:28:51 Primary Care Physician: Thu Baldwin DO Attending Physician: Mati Bell PA-C Comment: Visit Diagnosis: Diagnoses This Visit Contusion of right foot (S90.31XA) Elevated blood pressure reading (R03.0) Hallux rigidus (M20.20) Medical screening exam ([id number]) Sciatica (M54.30) Strain, lumbosacral (S39.012A) If you [...] 11 a.m. With: Address: When: Thu Baldwin [address] [place] [id number] Business (1) Within 7 to 10 days Medication Information: The exam and treatment you received today in the [facility] were for an urgent problem and are not intended as complete care. It is important for you to follow up with a doctor, nurse practitioner, or physician?s quality assistant for ongoing care. If your symptoms [...] so we can reach you if necessary. [facility] has provided you with a complete list of medications post discharge. 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 Normal [facility] Progress Note-Physicianon Progress Note-Physician DATE OF VISIT: [...] time being. Ulices Longoria M.D. JOB #: [id number] [Electronically Signed on: 07/15/2022 14:17 EDT] Ulices Longoria MD [Verified on: 07/15/2022 14:17 EDT] Ulices Longoria MD [Transcribed on: 07/15/2022 13:04 EDT] [facility] Coding Summaryon 07-04-2022 Coding Summary HTMLBase 64 WisozzmxKLy1bXl+PGhlYWQ+PE1 HTMSlL39gsNLutQ2VH9fZCB8BWS RYMYWQHS0PAA3mnJG8UGjqF3Hbn iAv PrzorWByXP78PJo4TYN9eTaeOYy shX0ohIPyY3e3NeYyAY26pW80XQ soIGXnFqU5KgPhufdbwPHi C0cqYzBeqHKoRkw+PHRhYmxlIHd mOZCvHAukTRKoFhUyeQeaKT2iCy 9yZGVyLWNvbGxhcHNlOiBj b6bnWZPiVBodBB4nhMoaC1HddNQ 3KJIrc6g8Wm16bSZ+IMMzBFO4qS ubRMrlg283PgWpq5faIIQ9 cBTgRHukBIL8A46bp0L6PRRcYQR cIJI8cKY9dN7rwNtaxjmlV7KmtZ KtZnO8IQZ2rSKtkR4elQcu nubfkC9gNuq+C05KHI1LHLNVDV5 XVmz4K1KuEzayzRJ+PH56XMOrOG 24lZTdvOSjr8vexXw4AkCs BRJdDBL8aPduAXosr8EkBGLvZ34 zoKLdp6F8UZSptJbotFYdDxVbmX U3mJ5bRZgkjhvlg2nuehon Aorkz1cbns19tE02Q83bDXhkLAR bYLR1DNLmJBQniFrzla8bcB5eYk 8+PPmal0lqp6fbgBy5AcKb OBIushQyjPdgREM0c9QsWl37H6H psDhto9GwVcj6hr30wEUwf0V6kQ V2PUadFKSegJ1rBZxiTyM7 WLLfRfDuyV75uNMlPPoiQx5njEc afBmuKP1xJCOwnzwmDAAenC1eSG ZdgEOscPehRR6zIVRzxdcb x362AhQhXMK3ECXvoQCtF4CysS1 yAkQsRZXfEJJcX8RxdDDoDLhtW4 11FXulQaQ0SHYrbaUrK2Cb XAIvoBkvGoZ1b8Q3Ta1Rv5Vrxif xZQR5DIkvJEL3CbD0GvKsOtN2F4 GyYiu5AKXcxPdzFU0gS2Xn LLYguhoipuzziID7ZHIqMIOgiX0 0oBYkUJhuOg9aa5Y8t985MDBfBY NhiZ63Jg0ruAuhDTTnfAMZ iX3ylwcuo7urobiwUaIcIWIdTAl 4OMw0UAAseIixUyDkBTK6FoB1LM E7rFHsbV1jbUcppdbctC5a Oyc+G41hqH3eNTI5OZR3xktsYAN seqBpMT68OC41H6DsWdfmgUUwlI U+EMKabwKowFwsBM2zDbHr z9zhr0CdLWtdV9WcQZAtVRebAfy 2VBPcYTL8lFX4tC4yUJYxZIcxv8 I9jTT5E6DhlbHcfd5pb5hi MGIgRVszU33rfKTfa7M9MXHokIB 6MRVgcWeoMqRkkW50Ehn+PGNvbG smj4OsGlyps8gee6fxdCb9 XsRjTAWkleZqiXnlUIO0z4JxHq0 3F02lHDizNWXvNXRpVOLtPEHjqA pirg6cxL2sLx0+PGNvbCB3 pLF8wK7xTJIfBaF9MEmfA604NcE cnJHdGpxqw7mir9japDm6YhShDC MimaRyfFopJIJ7o1RuYt97 V41yZGlfAALrUESpMXYnYVVzeQb sqg1zvY3zOn8+KF4ly5voiu93yF 48dHI+FNZzCEY2qPdrOOsl UKIgpI1eVWbiEcP1IDNrUzInpE1 7vBRnSOrbZt1ovCdrwEzbOC2tOT Tcfaicf525PvIzf4ycGBBz yCMeOUwcANV8B06xh2J0ZMHsQLM kSOH9fKH8xC3zsPtygndciCYxxF dronBleSucBSsxPZzlB316 IHRvcDsnPlBhdGllbnQgTmFtZTo 4X7ZlGdj2OGJkrCwlYC8opEVoWX bySs8rnZduhYblPC6vRXHe buhfw158DkKxq9vlUJShqIGdGVy eEUR1H21px1Y0XFPrGZJhISX9uN T6zS6lyZqfdqzmsQWvxLkv voVedBplUHnmFIowQ160MQEijPb fFsEghpNaPNWbfPP8AR79GJ86dJ Xtr5L5dFX8D4BlLVCmdqxr hwebdRF9YPInEDDawZ29Gk9nvJq eRu3fHMXwPNJ7ZOYwgEFpF9NpnE 5cDrIrXDZfXUWsQ2NqlKVs MJvoK074PWcyLtY3YWXwueUrU5Q yKHAzsMenBbG6s0Q5Hz9BO8V1MU 14ZL27uSKln2J2oYK2T7Ee FVJyovrmflyohCF0NYJjBQFydO1 7Yr4elEjlCq9tUKGpVKE1DJEfdX IdH0SsmD4kCbHlJUYeUZTm F8HrbCGaFYdrF788PTcyYuD3DRX nfvDvA3RiIUBxrAbdJnM8j5I3Tf 7XDEu1RJ53HL24vLXcj7S5 lIE5L2QlPHVaebgddxuhrOI0IBM gHTRvdX51Ia1gzKvtXk3gGLHqPC C4EHKflXWsG6QflM3jKuAw IWTfUJLoB6LlxJHbHOwcD755ZBa yAvK1AMMwhwVgQ2NdERVdmVhnVx E8y3R7Zu5NJOThLE22NAS0 fFS2AC63KS74N8IjKcqbkRYctWJ +PHRhYmxlIHdpZHRoPScxMDAlJy XvoAodFP0dTg6bCQDpPIEl sBbonEMtCyRbj4ifNYYtKTfxUH5 reSthJ3VrvCQ0NKPrh8l4Dc75B1 4zN4ExdRM+YZAbuOG9iDU8 sC4jXdLoXjY9QKgmQ163FjZhrYF kHogdb5lvj6gmuYe9TxJ9LLMpea IewDmjKGD6t7BkGf82R82z IHdpZHRoPSIxNSUiIHZhbGlnbj0 fuA6oFo8+IIRicEP4xCR1qK3hVu LbLfJ2PYxaU323HzXdrDPn Hjvlq4gfm9onyHf9WiQxSJHgyqG xnObeIIY3n3YqWf23U6DgyExab2 CkVbh8ux52aFNia1V2sDK7 I5CtJRTlbjgtoANmpSwyFT5eSUT zyuvpYEVgqS7aBUUaA8u0IgNgRo C0VIklG2MetbC3LWXaiOFz LNygOVT4G78ey8J3SWOaRYLvVFE 8bHA8tU9chWoygdfdvHWmuMduof DjtVxaPYrtDYjhD702ZMBh iAufUQElnV4vEHXvdDVsvDflQV8 bEALhfkdaNv1JUHyQMlGjLKRQDN ZPBEWBIJOKDH6SQX16ZV30 wJCof3L8uEY8W3NhCBCelkschrs scAT6CHGrHYFwuS90mBBhFHgqAc 2qa8V8y351IUGeOFPrbR82 Sg5rpIqtWTJixGZWeN7agtuws8q gtrqcZnZoAACgQJb2VEs8PSZziM kqXdGtBOH9GeK5XSA5iPVq yI1ceJdwztzioG7wUwa+MDEvMjc aXTo4LomcdGM+HJUcKHR4dEysAM bcAUBosL4wTBIcD0w8MiXe YtK3NIwrU2HeQMLwuicuOu02dK1 uDgQyBrE2QJfoD4UqcsB3ONJjtH OlBNydJUI2F30mm7B3WNNl HPChKNZ4xUY6bA3xzPxiqlsavOR zzAzdaqGgnGpoGWdkGNozP711NW HelPgtFmV4XKjxAHXkJU81 TX22tMRxy3C9iBG8M2KzSSTuxds azdfdzTU6PJSyCOYspG19fUQfRW fcGs1tm9J1h073PNIfVHVu yE12Ef6wrPgeIXLnqURDkE0buii ya1dmbbznQiUnICZqZRu7VIn4ML BuzUweNaMwOFD5GiH6SOG1 bIYsaB3neBdmzuxelW6oMxx+RkV XAPePSO73WV05dFIvd2X8vTB3W8 EjGIAinnpxnqajmXH9ZSSj XCUgpB86lDFoMHerFp2mw3H1y28 0MKXhQDJprO40Yl2roUwpJOIehH DLhV1kqlrch6uewsqjKgZh TEJjNXm9VAg2TOAhhXesNiWlJEM 3QrJ2CVO4wKNrfP9ybPotkoxxlW 9wOyc+SuExwMGxuV5aJY90 jACnvJhniyO4F1WdJybzaRY+PC9 5HQSxNP91yOMisCXje9odbTe2Nr OjDGQnPIC2dWgfQMgmr3Vo HKAcG35kjFHvr8Q7BPZukVnkgUS xZyVggUJ9zQ1kKEnpzveod8eumh ybLllfc9vuhl67yM67V06o IHdpZHRoPSIzMCUiIHZhbGlnbj0 yvB2oOk6+VLPdvXW2lSL8lB0sIw OaQzM6HLxtY428RiHwoHKp Bqqux7vra4kkaQk6PpEqPNEsdlL jdYzyFAU3v4JrIp56D07sHHsiLQ WaMPMwGBVrHZOheTxkug5h nG5aFe1+CB5tg4xnzt24eY40dSU +ENKnUOM7dGagDSetSGMvtG3bTY nqWjI4IUXyTqEtxR47tJSa ACzzJw3xzYlslRulNP7jXXUptbo fp485DiKvx8xcLPYuyCPgWUfdJA M8I41it7Y0RNVaODRnZBP2 gXC3tF4rcFucuxqriEUoxGvbbtS ipQmiBPrgUZcpX930VWRfyMglEt XfmXOiO7gmpmKGFA1cJbpy dGQ+BLZoKVR9cMsrETtfUNDczG4 qDFLoU7l5FjSsNgW7GEzhD3Dmwv D4GSLxtWBtQIPunZRJlY6z xkfyb1vomofrCzReRTZdCOh0LKl 2BLRyrOwpWbNlIOP5VwR5OTJ2pB KpgA7toCmvgfhgtU0gGad+ RklOOjwvdGQ+TQBhYSX4oFoeZEm fEYTqlR5lITFfJ4f2DeMpFvT3RI jgY9IvjwH3XLZtpCDsWBBt nBQTpP4jjmztp7xpdrlnTtZxMQF nVTn8SJm2AEBwmRcsTfDgBSC5Zq N1SHC3zGAuzQ9ayFehrtts tK4bBcz+TVJOOjwvdGQ+PHRkIHN 0pBdjFKniRPJrkC9lHJVyT9l4Wh WyTrU5EXnuR4LqlzC5KOTw sTXkHEOqcCLTvZ9dixtyb2yjxfl fVzImCNYjFDl6SWs8GKMlcOjdTa XtLGD2PpZ7ZCB2eRSqrU7s eKfreqxidF5aTmg+EYO0FEB8RN1 3GJ51I3ZyYiigsGJoxNZ+PHRhYm xlIHdpZHRoPScxMDAlJyBz dHl (more content not included)... [facility] Provider [place] 06-21-2022 Provider Orders [id number] [facility] Progress Note - Nurseon Progress Note - Nurse Pt called to reque st refills for Diclofenac, Baclofen and Lyrica. OAARS reviewed and appropriate. Pt is compliant with visits. Request sent to Dr Longoria for approval. [Electronically Signed on: 06/14/2022 08:53 EDT] Deena Silva RN [Verified on: 06/14/2022 08:53 EDT] Deena Silva RN [facility] Provider [place] 05-27-2022 Provider Orders [id number] [facility] Progress Note - Nurseon 05-08 Progress Note - Nurse Pt called for refi ll on Lyrica into [facility] and sharlene pt compliant with OV, sent to Sara Wilcox CNP for approval [Electronically Signed on: 05/17/2022 11:43 EST] Josefa Schuster LPN [Verified on: 05/17/2022 11:43 EST] Josefa Schuster LPN [facility] Coding Summaryon 05-16-2022 Coding Summary HTMLBase 64 ZqgrhknbUGw0yYy+PGhlYWQ+PE1 VELTaR95haDWetY2XW6uSBF6LUT ASLYQTXR1UNH4baTQ1EQlbD6Doh iAv DngjvHUlNM23ONe5WPN5jFyfWVk maF1kmVFmR7t6SuJxBI58qF12WS juQCWlQdJ1IyRylhoewRHg S1sbGlCzfBAyQmj+PHRhYmxlIHd xIMKiAKtlVMUvFgAnyLatUA7jJn 9yZGVyLWNvbGxhcHNlOiBj x0kbVTTwPWfoZM6yvNomR8AipQG 4NLZhm3y2Cc83gOH+HQGuXVE1jJ umCWywl168TnCbg0ruYVV9 xJPxAQmqMZV9L88ca9P8XAHjDCS qBHE9bLC9jO6ubXkemusiK3QgdS IiRjZ7KCX3fONcqZ2dxHwo ibodiX6qPef+T50TBD6TUKBMRZ5 IJsp6F5SkZijurTH+EE53NVRjXU 16jFMbnSUcz9totSq4DwPe XBDgGNF1wJqdKDtuq9RrYYNnH76 mnBWka4H3YHIqvZyzdZIsZmJbyB U3iF0oUJrrzhsxq8opazba Akgid9rpfu88iX25H49tKHhhAOR mRWQ4JEOfZQNozWryvw5moY9xAa 8+FKfum3cgf1rmyVg8TrEd WUSxkyZkcOghAHX7t7ZtWp85H1G hjUvfo2XyVpc3uc62kTTpu3Q5rK N9SDvfRYWxxW0aAYmqCwT3 WGIiUtDzjL05sQIzYEnpBt9iwGp xpVgfCN5lDHEerndmRHEglR6cBX SmlXXaqPkrHL0wFDZhltic g889SgUvNXS6RTGogYEnX9XfrC8 lHfGuYGGgTPZiQ5CjbDFuHPtaJ7 42SHzbNzL3ZWZazeAjC1Bk EXKvqHmzAxT6x0S9Kd2Th6Tkmcm zWOR1XVlpBMEdGhL0QhWcEjG0R7 VwIup2TZNwlIrmJL7mJ2Ny JYEjlvtuvclcaAJ7PSXcCPMlpZ7 2mZSeFXdlEf3cx9P5d413KXVqRU QmuT48Hf2hdIlnLNLtxHDR mD1lszqpd3lbxmfzTuUsXCKnORt 4KUw2NWJztAkuMxXiSVW7UpX1FS O5iFVmvZ2frJgzwoitxM7z Oyc+C24wtO7lMCV9LPB9ykbfKST izqLoTG60NA00L4XqNazotKYjyX U+RXTmfvXfjIfwFL7eGnZk z5uou5MaVOxpN1VqTTUmPUgcOsg 2NUUaPKG7dUI2pV8iDJEuVIeiz0 B1cPW7R0YileSlvq2hl8ru VDQyPWbrT12arANxh7Q6PKZdoZW 0KMTcbYirCsMikV98Tpw+PGNvbG wzg3ErFdrty6zhh7adlGq8 BvFoSHEakuFrsGmhFFF5t7QoCw1 8U79mRRwsVTOgSFQeHDUuZXHcmB ltvr6ytD2fEj4+PGNvbCB3 eOF4fO1sUWDfCcG1VOpkV899UtE dgGZhDxsyu6jwl5umwQv7QtKzML IgbjRibEtnVUH9f7UqVg95 R49tFFwuCPExERCdHOXrMHLymEn gvh7dvW1cGj4+FD5et4ygtj58rD 48dHI+VXTsVCQ7eWfnUHcr NKBafI3tRXjaDgB4HEEhClVhdH8 9cAZvXQgbKk3fiQumoJkjWL9mMV Rhtzqfs902GoHal7lcRTKm xMDaEZocGRC5S38jq7S9FHHcPJB vPPS2gHK7gQ2alXqxhadyoGOzzM qxpdVtlKxjKRdwRGczF205 IHRvcDsnPlBhdGllbnQgTmFtZTo 5T7TxMvi4PYFyxGlnOL8feLJxTG dwHn4yjTxwmGpvMB3eDYEf kqlds521WrZyh0ycWRNkaUHzQBg kFUT8V96ss3Z0EOGtHJLwMFR3uK J6iN7aqDadloeohWKfbTcf pyPtiNhgNLorAIrbX377OVPglLv wCoPwxgLsSYJzqYJ1ON66UF88yB Adz7Y8tDI0P1YsBQPyndvh fhjpmER9LCCaQOVddZ06Bf2uaDw iNn8qCBXgLZP1HCBheHKqC6RteK 8cGrAxYZVbVYSxT5KyiQFv JBrsM433DEhfOfH7KRDbovAsB1S iVMLanBozJxS6n9M1Ay9RA0Q8QW 00XR30nICcu6W1hJY4V1Hn JFPbgpldcjnvfBX3EBGlOEQrdS8 7Dc4wyUxeCp5nVJClGAH6VHMddO WmA7HmoR6pQaYgFZXcIMGf F1RxyQVlDDayG871RKjlNhB9JFN cdqTiK5EnCAJosMfaYlT8g4A6Fw 8LLWv7MB63YC96bLQge2C5 hDE1G4ArNDIzhinivrtukFP6XUN rALRbeV28Pj0ifHnsVu4tASXjGU U8OPXdjZOdO7FzaE8oMdBk VSUlMURhH2VtyLLpSXswH898UQp eWsO2DXRgrjQiF5ZhPYBowYeiTf B8d4D6Oo6ANFAcUQ66YBT1 cGH2OQ91FB26H8ZlUpfznTDmqWU +PHRhYmxlIHdpZHRoPScxMDAlJy SluKqmTK5cRi3vEQQeSAQh kMhodISuGwXnd8huNSOfBXgzRT2 ywHtqH4CpjHN8FUYks1t3Fv44D7 3lB1QnqXG+QCXdmSB6wMN5 iN2yFkZxMbE0NVhbW596SzPojDB dNmrjd1jrq3yqkDv9PyB7KBJkbq AnyHpeJUQ8u1DvUt18E77c IHdpZHRoPSIxNSUiIHZhbGlnbj0 iwT3nIp8+BUAiyMF2dWY8vS4gBu EhQiL1ZVfkR561TsEtxZVo Jmovs8ene8rliYh6QbBhYRPifmQ cmJpxQZU3q7KkKu25Q7JcrWnbi5 KtXmt9hc89hHMrx7C8lXP4 E3FkFJIibdgyoJGlyEjpYC5hATC kfazeYJFojH5pCNXuK6z1ZxKvUi D8XPmdE6IqwrI0VQEkqXAh HHaoTWU8G17ht7T0EPLcPYDxTHL 2xJH2fS1ftEpkdmhlzBEzyFxhmx RjlDysRDsnMVvzE592GBTu tTizRPTsnC6wKBSdnJWuuAuoCE4 qWBQvgjilUo6JVKnCQoWbMLYGQT IKEKNPLUDOTJ5ISN64EB03 dCOrh2W8zGK8A5UxSYPdiiodwrv hkVR3UWFqLFNsrV62lRSrWAfnZl 1tq4Q1j454PIOdAIUvbF73 We8bkEbcXFWuuOEGrD6jgakbn8g nvzpfZhHoCJAvBMg8KWg6MIRdgT ddQzMwXTN9AiB0HZB6xRUo uJ4ubJkbkbqugF6xUin+MDEvMjc mILp6MotacQN+LUXbYZM3qKgsKL gwFYGokI6gTVMwD1m2IaMk OwY4GNdvB4NkRDUzrkrmVy40rM0 yUaJrRqM7WBrjA3WgbtE0SWXjaU SwHQijYAE2G25pd1S3FRRi JTWoNUG0cXY4xG8jhViifchoiMG fpQqiawBpkLieMXnbDWlgG674KL TumHiiVkH7EMgxIBDhOV57 QW61kJJuc7G0aUL7O1TsLPWbaxy lgsjnfSU5KUMpCRBxzI54rTXfQY atUd1jx2L6v216GFLwXSUh nV54Yy0czVbhIZLskOZHoC6nlvo ub1mfhjsrNmWlMSUjNMl0PHf3BY BouNglWiKnOJQ1LtD6QBG2 jUHqyY9pnHbufbufrS4iEul+RkV TZNmNFX74PB21iGDup7I8oDU4I8 FcMPPqtskcwepafJE6QZEt QZMeiW26fWIaZJimDx3ao6H6w48 3GHEzLVYalC91Kb7cbPmpOSYbvU YWqW8uzairi6pciveuIuVo UJTrAPq7SAv2RETitMhwAjCxGGF 0RaM1KFS5dNRxbM4hrHaopqourA 9wOyc+EnExvQOckE0zUB64 oUYtlBweiaO1J0FyHsmysGB+PC9 9LTVlJA04nDXplRHoz6jgdOq0Dp OiKQNzNBH7tEayKWyja3Te NTByT04lrPEci5L6HLUcdOisvCL uSjVfmQQ2jK1kNEwvabzpe2vfvi kxRuikm5hibc02oQ07O77x IHdpZHRoPSIzMCUiIHZhbGlnbj0 waJ4qWl1+FPNdaOF5sGM4mL7mNt FaRnP5WAfyF414StTjyHIf Dnqtm7ysn1agmSm1UqGlSKTzysG czMhjAPR8f7VbHd94L47sECsdEU BnQBQcWQLbNPKdzQfpyd9k sP8nLe6+UT2dp7kbqi48lE68kRM +PFSsQKL3wTdiCWwrOAVviJ0jTC tgGkX6JZCpTiWwhK19dASn TMuyLz6gaMevkKjrFG1fRAQnqxg cf185ZgBbq8dsNOXafQKmIKorKA K7H82ky3B5AQObDNIzMMT8 jUX5pU5ilOjtbvlwfUSicKzvuaH gpZuaVRxtFHtyP395PPKmyEgwPh XqrYLnQ3hnaoTPYO6eKhdq dGQ+EJIfARZ3sNlkDBbyDRNrjI3 iYEWoR4k1HdCfPlS7NDobN8Jfvq R0HODudGBuJHGhcAFGmR8f gkoxv4knukpfReKkBLIgTFt8JEm 6VBAqaFiyUyFsUXO6ThF9KGY3iF AblZ4dzVaonefqnV7jIou+ RklOOjwvdGQ+YMRzJLX3mEknBYw xZJZxlC1hWSBwM6f6LmEeEuD8FM ocF4UxekB3JIVobUUbGGHh rEFNwR1tiyhww2cfkyfqAcIiTBH bBTj4XFk1DRPwoYuxNvCnCNJ0Sa E9UDL1qVDysE8mlGbppudd rY9fEbj+TVJOOjwvdGQ+PHRkIHN 5lVyyQKzbQGNdjH1lSHVzJ3p4Km GmQsF6QYzdG4WohiF6JDDg zMAvZFIagQNCrA5yamtwr1yolek tNzZvEEZgZZf8OLk7XKTkuRfiEo ZxXFX9IxE3KOF0lXTmzL5l wVforcydeQ6hDjc+ZWO4BIN0SY1 1YW78N3OjUshpbTZqtHN+PHRhYm xlIHdpZHRoPScxMDAlJyBz dHl (more content not included)... [facility] Lab - Reference Lab Resultso n 05-13-2022 Lab - Reference Lab Results [id number]#1.00OTGTIFF [facility] Progress Note - Provideron 0 04-25-2022 Progress Note - Provider [id number]#1.00OTGTIFF [facility] Orderson 04-25-2022 Provider Orders [id number]#1.00OTGTIFF [facility] Coding Summaryon 04-23-2022 Coding Summary HTMLBase 64 IehactijVMj6hSg+PGhlYWQ+PE1 SVYUjA16zkMRfwN9HU2iJUU6SIC LFYGZGVF5UQV4nbYZ3TYunE5Hwz iAv OkmapQTcAJ67QBm3AYH8iTiwRJg afS8rtMYeJ2k7FmOdPS86pW33KM wqWXKeOiU1AtYlrkrnuWUn L7kuHfUbiFQaMcw+PHRhYmxlIHd wXYLlHWjcNPKrFsEhsOxnFP6wJg 9yZGVyLWNvbGxhcHNlOiBj m8pwFQSjWDivHO0wwGpgY0LnbMO 9NHWcn2z4Mx06eRE+LMIxPQJ4aP hbPQgie486GsKdy8weMCS2 lJUtBZhaERV4U79pq5J9AMEcRYN yBRF2eZM4wO0dlSdlqbyzQ6XiaS AwMjC7RWB4iXPviG3qnXcn ikewzM6yAaa+B11YKC6EHAPGFA9 GOtr2Y0KkUnkqkSZ+GB73KLMrXZ 73kEUimHArg4qtjKq3AvXt ALWhSSD2kZozRZugz1WeCGNjO71 orNYbg3I3LNLewLtnyHRjCdNdpK X1kX5cJQrjwcjpz9rcafqj Pakdy3isjg94zJ83U30bDImsNHO rLLF0WUMpQPOqpVipys7gkI0rXu 8+RAdod4dex9kidPq0JwEk ZTNhynIgyTusVEG3c3KgWx28S0X weGvsh6HfWbr8ln61qCYhe5P2bJ A2EZmmMUTnqP9mAVcqBhW0 SCZhJiZwjL25hAHqEQyhAd1zxCf rnUagAA1zJBEdvicmVYJwkO2tIK UnyRBpgWqoID2oMKRblfkg w301EeZkNKV3KNNfcPWyH1VblK0 wXtBvRYUvIUHqT5QsgKXkNRsuN2 24QJprKmM4HAJdrqDnJ2Nb HPAboNbfUcZ6z8G2Gm3Va0Vttds hNOC0QMlmHQLeYnQ1ExCvWfF2I4 RcIgr5BBXnqOjlIX7oS2Xm CDBphnfmvzpujIJ6JAQmKQTgvL9 6zMMjFGkyJz2la8I0f525THPtJS PrgM02Od0jxEdkQQGiiIZX nW3zsqaby2uvvgrdXhBpKNWzYEo 4JZm5BFTpuUypQuAhTIT6BlG0IZ X2zXKadC1xkFercjuefG2t Oyc+G99fuP1jSRY3JVD9dlcyKEZ fijRuFO82RM07S8NhGkrmtYTroL U+DMIwpxFptEesFI7zPlGn s6nap6HwCDmmU5LsAEDaHRiiPia 5FFDgERH1oUQ8cC3iTZCuTXeqd2 Z9hGY0Y0UcnoWxzm5yi0pu TWRpSFvxI30rkPUfm4P5DJSmoSP 5UDIhsMvdUaDxjW93Xty+PGNvbG xnj0NaUgfbu0ymx7knaXw9 HjVhQTSnovEamSsaLAA1x8HcLy3 4C71eRMltGFWhJMLzBOWsNDMarR fuhf4fiL6cDf4+PGNvbCB3 cHJ3xZ2nYYRbClM3KTkfF580EkN saMXjGwbby5qqq0amxEb6UqQuRL SxicBiuZgoVQN3q1MeIy30 Z61sCQcvTIXfQNRzZWKgXGTckQl agj7eiF3qDg5+SN1wx9vyff94vS 48dHI+ZPYiDAP0gSdxQNru CIJhbI7aIDegWqC4ZULxPuEraH0 5bZZsXUzsQk1akTtawWvdVU6tRS Vhqwmdn843JbIqz9tiYZDo jYXlLXsiTRB0U47pn8T9FORzTWR jIOH4uDW3lH9tzOsdlcdyrIOyrR pdfhZtkUjcTYfsYFpoI245 IHRvcDsnPlBhdGllbnQgTmFtZTo 8C3PzQrq1JPMbpNyaKC7vnGSePS wwSe7ryEcqxVfqUO1uLIPh imvcb518IoXmt3yxGRBbnDJvNFs uIBN2K65vw8M7ICCrWCVlROI6rC O6wC0vdKxzuvoecMOiwKnm wqGxzWowMQlxUVvsE894ULAouFj rBfXdufSxFMCvmOB7ZI79KC60eV Mdl4S2lXH3O7SuIXSdqeqz rjdryLO4WOKyNFGqfD29Ao6fqQg gUa6qSWPzURR7XWPslOKvN7PakK 3mMiNhKJZrROUsD7XrfSMx CDimZ316THjwZyT7VUNokfHeQ2D jVONtyGjeAcD5h2C0Jq6LL9T8MR 24NS31bODxo4G3gXH9Y9Fi TXCgujwkeguboVO9JZJlTHUvlP7 5Ii6qpKkdJz1sEMFgGMG4WPPmmU XcY9HwhY6fUmFlPUVkRUTf S5ZawQVsBQndL042HZmhZxF5LJG ssaUuS8ZiNYZxzJjhIaD9p7L7Qd 6FZOq1UB86SI92lGJcj9A8 xMU9U9QwFMWrgokxjhqgnKG0MWW wLIWgfU10An2jlNjaCw2hYSRtMQ W6HDIvcCZcJ2EphM3sGcTp BRKcCLNxF4SxiGMiWVmgC000CXo tOwR8JMLgjvRoU8IcOUPptLagEq Y8i7J4Up8NIFRqBE67SFU5 jEE7CZ14SD04E3ChDgxbrFEavMG +PHRhYmxlIHdpZHRoPScxMDAlJy LaaNulSZ3dVc7bCTFrDIVq qMvqlZLcKrMkc0ahBOAcOKneDI6 luTppB4SkhGR0TRNld8q6Nc17M7 8aV5KxuMM+BSGrsFV5eFF8 rT9mMhAuCfG1NAlvD726FhEdpON tNcexm2uvm5jwqLj5LkU0VYJuly IwmTfcBER7o2ZjSj09A49c IHdpZHRoPSIxNSUiIHZhbGlnbj0 jsL1lBa6+ANEisIA7fJL5eN5pPb IlOpO0XIzzO576KmCfwDRx Mmsjc3cca5lkePt8BoQoDGMiokN xuHpqLLB0q4VoFk31W2WheXwjg2 AsXaq1zb79sSWoc2P6iLC9 C7InMHDlvhjkkVQrcNuiQU0nIUL uqmqdDEPraX9vEBNwP3t3TiXfUr M1MFceN2CwsuF8PKCrbUHe DLnsOWY0E80gt9P8RXTvLKYuPUU 6zOU1dV5uqQelracdgFPicPmyon GumWvzPQggOLncW372PXOz yLmbGWRmiM8vDKPhzCAosNefEH5 eKCKwyhyjJp1CNYtVEuXyPTGIJA TFFZCIMUNSSC4EPQ13WO92 wCSyn3R0bQM7X0RsVRRzymmwjil obQB3CVLzGXEtyI04vTAoLGztUh 4qt9X0l505BASqZTOwzB80 Xo2gwLdvCIBzmSMYwM3lpoibh1i fcuqfBgKuTBPeDHw5CDg5QLDyyW yxWmNfMJP8QxW3ZLR5gMJw iH0ntRwspyhurP4eRrx+MDEvMjc dAYi7WovvxLI+ZOAxPSG8lKjlLU shWCBbrW4rSOMcL9j8MpQw NqT1HXswJ9XeUGOjoetsUs69gI6 fVlObAkB4EJkgY4RgmaV7VAThmW MiPQasPBC2D01za4D3GDLd VOFaKTL1oIH8yK4imYqtpiaxjMC xwCsvfrTdpTmnEQaaGQuoK250XY VekWuyQlL6XOrrFFBdPP19 ZC83xJCnj0G1uIC5C4HbBJUmojf xykytnIL4VDCxXGQilT19qEIbPQ bbMq5py6Y8o532VZFfGZFs eP52Ff4orDxuUMYxoNDXdF7szfc ho8izjvesMuIeLVTwHLa6XOo2XY RyhXgoPwRoUZT3OjB9MSA0 uPIfcC3zbJmncfoziH2qFdz+RkV PICsFWT33LS99iWZcu7X8nAS8O9 XrOHKiplqlhearzNP7WUBm KROgyU16fKClFXcbGx2ym8T4v58 9AXKyXKJmjU92Eu3drIjcDDKmoD EEeN0udnibm5fqyeaaZfIg UCJbPIw6POz2FDFiuGonYcZfPAC 9BdU0OFR9rCQgpX6qsFjjnyinqE 9wOyc+T7T1G6YjWqctfQA+ RB70PRKmGD28oXAzeIIrq6etfCe 9QgIfOXWgOKW1cJxbVUwht2QrTV QcZ96jsYUbq2O5HXAdrFib qLOkVfPnbMH3jH9gAHcmqcldb5g qofcsPksnn7lrkn48wY34F73bWM dpZHRoPSIzMCUiIHZhbGln qd9zzQ9tZs8+XCQdeKZ1pFZ5mJ4 mGhNjUuN1PKmwU845KdLhgOWhPz qkt7vos6tzoOj8HdSmWMZo hgXcyPtbSGF0n6ZzYy40T97oHEd tLWBuWOFlBSZlEBMslHskme7wgG 9wIi8+BJ1tb9hvfn79iE45 dHI+REVqSTV0wPixWFggVUBorF5 sRAaxQlG3SGNjYxMgdN18gNZuBW umKl1ynPzooIibHL1uDKDn zwpgi477CjQsu7rjBYEmsSXmXZv cHOS9D02qa2Y5YTGbTDQqDCH7jJ L7yF8tkSnfjjrxcNMbdUal hhKonXlpFKzeAJfxD563CDKqgWs pUkJmgJQoS7gqknAFOP6aNscwbE Q+BVAfMUO1bQyqZSuyBICa eB3lIWJpG8l2NcWkVlS4GDnyV8C lycG4INOkqMClZZNjeHPFbV1zan rzn9gmjwtdJgWoZJQbKUz0 OKi9BOSosHzzHjEcEPV2GyT4LNM 8sGJpvJ4ebTkgdlxtcZ5qCto+Rk lOOjwvdGQ+PDGpTDF6bEvy WCagUMIutO9rVSAqU4w3TjQsCpX 1RGttW2OkbuP5ZPSgsNOdVGLcsO XAmZ4imnhou9bngqtePbRg PEQeXCa9DOl3JJEpuVwkGfUtVVJ 4PoP1PRW2zSNvjJ5dlAdvybudvR 9wOyc+TVJOOjwvdGQ+PHRk XAG6fFkbLQzhNRQheB8hQNFiN9a 9SvWhPxO3MMmtT6SyazI2PPRpnM BdRBMqhMYYkG9tmryyv1nw qsprHiHxXPZrTWi4RFg9GVVkdDn oScIvLYR4PaU1UIT1dAClqB2hqG cfgilpcX7uIgw+AZR5NYE6 HE33YH87K2IxZrpjgJQowPX+PHR hYmxlIHdpZHRoPScxMDAlJyBzdH zxAB7eJe5oPGEkBMEvuKmc cHN (more content not included)... Normal [facility] MRI LSPINE WO CONon 04-12-19 MRI LSVERNALIS WO CON EXAMINATION: MRI LSP INE WO [...] by: MALATHI LOUIS Date: 2022-04-12 11:23 Normal [facility] POINT OF CARE GLUCOSEon 08-2 Glucose [Mass/Vol] 124 mg/dL Critically high 74-106 [facility] Comment on above: Performed By: #### P OCGLUC #### [facility] [address] [address] [address] Johann Spring PREG HCG QUALon 11-05-2021 , QUAL Negative Normal NEGATIVE [facility] Comment on above: Performed By: #### P REG #### [facility] [address] [place], [place] [address] Dr. Johann Spring XR FOOT RT 2Von [...] WEN MCCABE Date: 2021-11-05 13:58 Normal [facility] XR CHEST 2 Von 10-27-2021 XR CHEST [...] MALATHI LOUIS Date: 2021-10-27 07:17 Normal [facility] Covid-19 PCR (CVDTBH)on SARS-CoV-2 (COVID-19) RNA SHEFALI+probe Ql (Unsp spec) Detected Critically abnormal NOT DETECTED [facility] Comment on above: Result Comment: This test is not yet approved or cleared by the [place] FDA. When there are no FDA-approved or cleared tests available, and other criteria are met, FDA can make tests available under an emergency access mechanism called an Emergency Use Authorization (EUA). The EUA for this test is supported by the [place] of [employer] and Human Service's declaration that [...] longer be used). Performed By: #### C VDTB #### [facility] [address] [place] [address] Dr. Johann Spring PREG HCG QUALon 10-08-2021 , QUAL Negative Normal NEGATIVE [facility] Comment on above: Performed By: #### P REG #### [facility] [address] [place] [address] Dr. Johann Spring CBC AUTO DIFFon 10-01-2021 BASO # 0.0 103/ul Normal 0.0-0.1 [facility] Comment on above: Performed By: #### C BC #### [facility] [address] [place] [address] Dr. Johann Spring Basophils/100 WBC (Bld) 0.3 % Normal 0.2-2.0 [facility] Comment on above: Performed By: #### C BC #### [facility] [address] [place] [address] Dr. Johann Spring EO # 0.1 103/ul Normal 0.0-0.7 [facility] Comment on above: Performed By: #### C BC #### [facility] [address] [place] [address] Dr. Johann Spring Eosinophils/100 WBC (Bld) 1.7 % Normal 0.9-7.0 [facility] Comment on above: Performed By: #### C BC #### [facility] [address] [place] [address] Dr. Johann Spring Erythrocyte distribution width (RBC) [Ratio] 13.3 % Normal 11.0-15.0 [facility] Comment on above: Performed By: #### C BC #### [facility] [address] [place] [address] Dr. Johann Spring Hematocrit (Bld) [Volume fraction] 38.0 % Normal 36.0-48.0 [facility] Comment on above: Performed By: #### C BC #### [facility] [address] [place] [address] Dr. Johann Spring Hemoglobin (Bld) [Mass/Vol] 12.4 g/dL Normal 12.0-16.0 [facility] Comment on above: Performed By: #### C BC #### [facility] [address] [place] [address] Dr. Johann Spring IG # 0.02 10e3/ul Normal 0.00-0.03 [facility] Comment on above: Performed By: #### C BC #### [facility] [address] [place] [address] Dr. Johann Spring IG % 0.3 % Normal 0.0-0.5 [facility] Comment on above: Performed By: #### C BC #### [facility] [address] [place] [address] Dr. Johann Spring LYMPH # 2.6 103/ul Normal 1.2-3.8 [facility] Comment on above: Performed By: #### C BC #### [facility] [address] [place] [address] Dr. Johann Spring Lymphocytes/100 WBC (Bld) 32.9 % Normal 20.5-60.0 [facility] Comment on above: Performed By: #### C BC #### [facility] [address] [place] [address] Dr. Johann Spring MANUAL DIFF REQ NO Normal [facility] Comment on above: Performed By: #### C BC #### [facility] [address] [place] [address] Dr. Johann Spring MCH (RBC) [Entitic mass] 28.2 pg Normal 26.7-34.0 [facility] Comment on above: Performed By: #### C BC #### [facility] [address] [place] [address] Dr. Johann Spring MCHC (RBC) [Mass/Vol] 32.6 g/dL Normal 29.9-35.2 [facility] Comment on above: Performed By: #### C BC #### [facility] [address] [place] [address] Dr. Johann Spring MCV (RBC) [Entitic vol] 86.4 fL Normal 81.0-99.0 [facility] Comment on above: Performed By: #### C BC #### [facility] [address] [place] [address] Dr. Johann Spring MONO # 0.3 103/ul Normal 0.3-0.8 [facility] Comment on above: Performed By: #### C BC #### [facility] [address] [place] [address] Dr. Johann Spring Monocytes/100 WBC (Bld) 4.1 % Normal 1.7-12.0 [facility] Comment on above: Performed By: #### C BC #### [facility] [address] [place] [address] Dr. Johann Spring NEUT # 4.8 103/ul Normal 1.4-6.5 [facility] Comment on above: Performed By: #### C BC #### [facility] [address] [place] [address] Dr. Johann Spring Neutrophils/100 WBC (Bld) 60.7 % Normal 43.0-75.0 [facility] Comment on above: Performed By: #### C BC #### [facility] [address] [place] [address] Dr. Johann Spring Platelet mean volume (Bld) [Entitic vol] 10.1 fL Normal 9.5-13.5 [facility] Comment on above: Performed By: #### C BC #### [facility] [address] [place] [address] Dr. Johann Spring PLT 205 103/ul Normal 150-450 [facility] Comment on above: Performed By: #### C BC #### [facility] [address] [place] [address] Dr. Johann Spring RBC 4.40 106/ul Normal 4.20-5.40 [facility] Comment on above: Performed By: #### C BC #### [facility] [address] [place], [place] [address] Dr. Johann Spring WBC 7.8 103/ul Normal 4.0-11.0 [facility] Comment on above: Performed By: #### C BC #### [facility] [address] [place], [place] [address] FOOT RT WO [...] by: WEN MCCABE Date: 2021-06-11 07:07 Normal [facility] Vital Signs Date Time Vital Sign Value Performing Clinician Facility 03-18-2023 09:00-0500 Body height 160.02 cm Shelley Mc Other [facility] Other 03-18-2023 09:00-0500 Body mass index (BMI) [Ratio] 66.31 kg/m2 Shelley Mc Other [facility] Other 03-18-2023 09:00-0500 Body weight 169.83 kg Shelley Mc Other [facility] Other 03-18-2023 09:00-0500 Diastolic blood pressure 84 mm[Hg] Shelley Mc Other [facility] Other 03-18-2023 09:00-0500 Respiratory rate 18 /min Shelley Mc Other [facility] Other 03-18-2023 09:00-0500 SaO2% (BldA) [Mass fraction] 95 % Shelleysharlene Mc Other [facility] Other 03-18-2023 09:00-0500 Systolic blood pressure 120 mm[Hg] Shelley Mc Other [facility] Other 03-11-2023 12:00-0500 Diastolic blood pressure 98 mm[Hg] DO Thu Nicolasa Work Phone: [facility] 03-11-2023 12:00-0500 Heart rate 70 /min DO Thu Nicolasa Work Phone: [facility] 03-11-2023 12:00-0500 Respiratory rate 18 /min DO Thu Nicolasa Work Phone: [facility] 03-11-2023 12:00-0500 SaO2% (BldA) [Mass fraction] 95 % DO Thu Nicolasa Work Phone: [facility] 03-11-2023 12:00-0500 Systolic blood pressure 156 mm[Hg] DO Thu Nicolasa Work Phone: [facility] 03-11-2023 10:07-0500 Body height 162.56 cm DO Thu Nicolasa Work Phone: [facility] 03-11-2023 10:07-0500 Body weight 172.36 kg DO Thu Nicolasa Work Phone: [facility] 02-20-2023 10:00-0500 Body height 160.02 cm Shelley Mc Other [facility] Other 02-20-2023 10:00-0500 Body mass index (BMI) [Ratio] 67.5 kg/m2 Shelleylidia Mc Other [facility] Other 02-20-2023 10:00-0500 Body weight 172.87 kg Shelleylidia Mc Other [facility] Other 02-20-2023 10:00-0500 Diastolic blood pressure 100 mm[Hg] Shelley Jesusita Other [facility] Other 02-20-2023 10:00-0500 Respiratory rate 18 /min Shelleylidia Mc Other [facility] Other 02-20-2023 10:00-0500 SaO2% (BldA) [Mass fraction] 98 % Shelleylidia Mc Other [facility] Other 02-20-2023 10:00-0500 Systolic blood pressure 138 mm[Hg] Shelley Mc Other [facility] Other 02-19-2023 09:15-0500 Body height 160.02 cm Wen Pollack Other [facility] Other 02-19-2023 09:15-0500 Body mass index (BMI) [Ratio] 67.48 kg/m2 Wen Pollack Other [facility] Other 02-19-2023 09:15-0500 Body weight 172.82 kg Wen Pollack Other [facility] Other 02-19-2023 09:15-0500 Diastolic blood pressure 81 mm[Hg] Wen Pollack Other [facility] Other 02-19-2023 09:15-0500 SaO2% (BldA) [Mass fraction] 98 % Wen Pollack Other [facility] Other 02-19-2023 09:15-0500 Systolic blood pressure 137 mm[Hg] Wen Pollack Other [facility] Other 01-15-2023 13:45-0500 Body height 160.02 cm Imad Asaad Other [facility] Other 01-15-2023 13:45-0500 Body mass index (BMI) [Ratio] 70.71 kg/m2 Imad Asaad Other [facility] Other 01-15-2023 13:45-0500 Body weight 181.08 kg Imad Asaad Other [facility] Other 01-15-2023 13:45-0500 Diastolic blood pressure 88 mm[Hg] Imad Asaad Other [facility] Other 01-15-2023 13:45-0500 Systolic blood pressure 147 mm[Hg] Imad Asaad Other [facility] Other 12-12-2022 09:45-0400 Body height 160.02 cm Imad Asaad Other [facility] Other 12-12-2022 09:45-0400 Body mass index (BMI) [Ratio] 70.49 kg/m2 Imad Asaad Other [facility] Other 10-05-2023 09:45-0400 Body weight 180.53 kg Imad Asaad Other [facility] Other 12-12-2022 09:45-0400 Diastolic blood pressure 94 mm[Hg] Imad Asaad Other [facility] Other 12-12-2022 09:45-0400 Systolic blood pressure 167 mm[Hg] Imad Asaad Other [facility] Other 02-20-2022 09:45-0500 Body height 160.02 cm Wen Pollack Other [facility] Other 02-20-2022 09:45-0500 Body mass index (BMI) [Ratio] 72.53 kg/m2 Wen Pollack Other [facility] Other 02-20-2022 09:45-0500 Body temperature 98.2 [degF] Wen Pollack Other [facility] Other 02-20-2022 09:45-0500 Body weight 185.75 kg Wen Pollack Other [facility] Other 02-20-2022 09:45-0500 Diastolic blood pressure 89 mm[Hg] Wen Pollack Other [facility] Other 02-20-2022 09:45-0500 SaO2% (BldA) [Mass fraction] 98 % Wen Pollack Other [facility] Other 02-20-2022 09:45-0500 Systolic blood pressure 149 mm[Hg] Wen Pollack Other [facility] Other 02-07-2021 16:30-0500 Body height 160.02 cm Wen Pollack Other [facility] Other 02-07-2021 16:30-0500 Body mass index (BMI) [Ratio] 60.22 kg/m2 Wen Pollack Other [facility] Other 02-07-2021 16:30-0500 Body weight 154.22 kg Wen Pollack Other [facility] Other 02-07-2021 16:30-0500 Diastolic blood pressure 90 mm[Hg] Wen Pollack Other [facility] Other 02-07-2021 16:30-0500 SaO2% (BldA) [Mass fraction] 95 % Wen Pollack Other [facility] Other 02-07-2021 16:30-0500 Systolic blood pressure 137 mm[Hg] Wen Pollack Other [facility] Other 12-06-2020 10:00-0400 Body height 160.02 cm Wen Pollack Other [facility] Other 12-06-2020 10:00-0400 Body mass index (BMI) [Ratio] 61.11 kg/m2 Wen Pollack Other [facility] Other 12-06-2020 10:00-0400 Body weight 156.49 kg Wen Pollack Other [facility] Other 12-06-2020 10:00-0400 Diastolic blood pressure 86 mm[Hg] Wen Pollack Other [facility] Other 12-06-2020 10:00-0400 SaO2% (BldA) [Mass fraction] 96 % Wen Pollack Other [facility] Other 12-06-2020 10:00-0400 Systolic blood pressure 125 mm[Hg] Wen Pollack Other [employer] Other Encounters Encounter Date Encounter Type Care Provider Facility Start: 04-08-2023 End: [facility] Start: 04-08-2023 Encounter by patricia aburto [facility] Start: 04-04-2023 End: 2023 ambulatory [facility] Facility:[facility] Start: 04-02-2023 End: 04-02-2023 ambulatory YSABEL MULLER Not Available Start: 03-25-2023 End: 03-25-2023 ambulatory RIO STERLING Not Available Start: 03-25-2023 ambulatory Thu Nicolasa Facility:[facility] Start: 03-18-2023 End: 03-18-2023 ambulatory [facility] Other [employer] Other Start: [facility]18[facility]23 [facility]: 03-13-[facility]23 End: 03-14-2023 ambulatory Thu Nicolasa Facility:[facility] Start: 03-11-2023 End: 03-11-2023 ambulatory Imad Asaad Facility:[facility] Start: 03-11-2023 End: 03-11-2023 Admission to same day surgery center DO Thu Nicolasa Work Phone: [facility] [place] Work Phone: Start: 03-11-2023 End: 03-11-2023 ambulatory DO Thu G Nicolasa Work Phone: [facility] Work Phone: Start: 02-27-2023 End: 02-27-2023 ambulatory Shelley Mc Other [employer] Other Start: 02-27-2023 Encounter by patricia Borgeslidia Mc [facility] Start: 02-24-2023 End: 02-24-2023 ambulatory Imad Asaad Other [employer] Other Start: 02-24-2023 Telephone encounter Imad Asaad [facility] Start: 02-20-2023 End: 02-20-2023 ambulatory Shelley Mc Other [employer] Other Start: 02-20-2023 Office outpatient ne w 45 minutes Shelleylidia Mc [facility] Start: 02-19-2023 Office outpatient vi sit 25 minutes Wen Pollack [facility] Start: 02-19-2023 End: 02-19-2023 ambulatory Mati Bell [facility] Other Start: 02-19-2023 End: 02-19-2023 Patient encounter procedure DO Thu Nicolasa Work Phone: [facility] Work Phone: Start: 02-06-2023 End: 02-06-2023 ambulatory THU G NICOLASA Not Available Start: 02-04-2023 End: 02-05-2023 ambulatory RIO STERLING Not Available Start: 01-24-2023 End: 01-24-2023 ambulatory Thu Nicolasa Facility:[facility] Start: 01-24-2023 End: 01-25-2023 ambulatory Sam Herbert MD Facility:[facility] Start: 01-22-2023 End: 01-22-2023 ambulatory Thu Nicolasa Facility:[facility] Start: 01-17-2023 End: 03-21-2023 ambulatory Thu Nicolasa Facility:[facility] Start: 01-15-2023 End: 01-15-2023 ambulatory Imad Asaad Other [employer] Other Start: 01-15-2023 Office outpatient vi sit 25 minutes Imad Asaad [facility] Start: 01-11-2023 End: 03-20-2023 ambulatory Matilaci Bell Facility:[facility] Start: 01-10-2023 End: 01-11-2023 ambulatory [facility] Facility:[facility] Start: 01-10-2023 End: 01-11-2023 ambulatory Sam Herbert MD Facility:[facility] Start: 12-24-2022 End: 12-24-2022 ambulatory Imad Asaad Facility:[facility] Start: 12-24-2022 End: 12-24-2022 Patient encounter procedure DO Thu Nicolasa Work Phone: [facility] Work Phone: Start: 12-12-2022 End: 12-12-2022 ambulatory Imad Asaad Other [employer] Other Start: 12-12-2022 Office outpatient ne w 45 minutes Imad Asaad [facility] Start: 12-11-2022 End: 12-12-2022 ambulatory [facility] Facility:[facility] Start: 12-04-2022 End: 12-04-2022 ambulatory [facility] Facility:[facility] Start: 11-18-2022 End: 11-19-2022 ambulatory Thu Nicolasa Facility:[facility] Start: 10-07-2022 End: 10-07-2022 ambulatory [facility] Facility:[facility] Start: 10-01-2022 End: 10-01-2022 ambulatory Mati Bell Facility:[facility] Start: 08-12-2022 End: 12-25-2022 ambulatory Ulices Longoria Facility:[facility] Start: 07-16-2022 End: 07[facility]-20[facility] Start: 07-15-2022 End: 07-16-2022 ambulatory Thu [facility] Facility:[facility] Start: 06-21-2022 End: 01-13-2023 ambulatory [facility] Facility:[facility] Start: 05-16-2022 End: 07-18-2022 ambulatory [facility] Facility:[facility] Start: 04-22-2022 End: 04-23-2022 ambulatory Thu [place] Facility:[facility] Start: 04-12-2022 End: 04-13-[address] MALATHI LOUIS Facility:[facility] Start: 02-20-2022 Office outpatient vi sit 25 minutes Wen [facility] Start: 02-20-2022 End: 02-20-2022 ambulatory DO Thu G Nicolasa Work Phone: [facility] Work Phone: Start: 02-20-2022 End: 02-20-2022 Patient encounter procedure DO Thu Nicolasa Work Phone: [facility] Start: 11-06-2021 End: 11-07-[address] YAN STRICKLAND Facility:[facility] Start: 11-01-2021 ambulatory LOR CHEEK Faci lity:[facility] Start: 10-30-2021 Encounter for preprocedural cardiovascular examination LOR CHEEK [facility] Start: 10-26-2021 End: 10-27-2021 ambulatory LOR CHEEK Facility:[facility] Start: 10-26-2021 End: 10-27-2021 Encounter for preprocedural cardiovascular examination LOR CHEEK Facility:[facility] Start: 10-08-2021 End: 10-08-2021 ambulatory LOR CHEEK Facility:[facility] Start: 10-02-2021 Encounter for other preprocedural examination LOR CHEEK [facility] Start: 10-02-2021 Encounter for preprocedural laboratory examination LOR CHEEK [facility] Start: 10-01-2021 End: 10-02-2021 ambulatory LOR CHEEK Facility:[facility] Start: 10-01-2021 End: 10-02-2021 Encounter for preprocedural laboratory examination LOR CHEEK Facility:[facility] Start: 06-09-2021 End: 06-10-2021 ambulatory LOR CHEEK Facility:[facility] Start: 02-07-2021 End: 02-07-2021 ambulatory Wen Pollack Other [employer] Other Start: 02-07-2021 Office outpatient vi sit [...] Date Care Activity Detail Author Start: 03-11-2023 [facility] Start: 12-24-2022 [facility] Patient Education Formerly [facility] Live r Biopsy Discharge Instructions [facility] Work Phone: Immunizations Immunization Date Immunization Notes Care Provider Fa cility 02-09-2021 COVID-19 Vaccine Moderna - Documentation Purposes Only Shelley Mc Other [employer] Other 07-01-2020 COVID-19 Vaccine Moderna - Documentation Purposes Only Shelley Mc Other [employer] [facility] 06-03-2020 COVID-19 Vaccine Moderna - Documentation Purposes Only Shelleylidia Mc Other [employer] Other NEGATED: Highlighted row has not occurred!02-20-2023 Flu Shot - Documentation Purposes Only Patient Objection Shelley Mc Other [employer] Other Payers Date Payer Category Payer Unknown [id number] 2022 Medicaid [id number] 2022 Self-pay [id number] 2019 Unknown 2019 Unknown [id number] 1985 Unknown [id number] 2.16.84 0.1.111798.3.579.2.593 1985 Unknown [id number] 2.16.84 0.1.058939.3.579.2.593 1985 Unknown [id number] 2.16.84 0.1.366811.3.579.2.593 1985 Unknown [id number] 2.16.84 0.1.601790.3.579.2.593 1985 Unknown [id number] 2.16.84 0.1.787877.3.579.2.593 1985 Unknown [id number] 2.16.84 0.1.283067.3.579.2.593 1985 Unknown [id number] 2.16.84 0.1.377479.3.579.2.593 1985 Unknown [id number] 2.16.84 0.1.861107.3.579.2.1259 1985 Unknown [id number] 2.16.84 0.1.789474.3.579.2.1259 1985 Unknown [id number] 2.16.840 .1.366398.3.579.2.1259 1985 Unknown [id number] 2.16.840 .1.784525.3.579.2.1259 1985 Unknown [id number] 2.16.8 40.1.241506.3.579.2.718 1985 Unknown [id number] 2.16.8 40.1.901812.3.579.2.718 1985 Unknown [id number] 2.16.8 40.1.560286.3.579.2.718 1985 Unknown [id number] 2.16.8 40.1.330711.3.579.2.718 1985 Unknown [id number] 2.16.8 40.1.738679.3.579.2. 1985 Unknown [id number] 2.16.8 40.1.537100.3.579.2. 1985 Unknown [id number] 2.16.8 40.1.557124.3.579.2. 1985 Unknown [id number] 2.16.8 40.1.345908.3.579.2. 1985 Unknown [id number] 2.16.8 40.1.534410.3.579.2. 1985 Unknown [id number] 2.16.8 40.1.796711.3.579.2. 1985 Unknown [id number] 2.16.8 40.1.136195.3.579.2. 1985 Unknown [id number] 2.16.8 40.1.916273.3.579.2. 1985 Unknown [id number] 2.16.8 40.1.325430.3.579.2. 1985 Unknown [id number] 2.16.8 40.1.096673.3.579.2. 1985 Unknown [id number] 2.16.8 40.1.940038.3.579.2. 1985 Unknown [id number] 2.16.8 40.1.645146.3.579.2. 1985 Unknown [id number] 2.16.8 40.1.647608.3.579.2. 1985 Unknown [id number] 2.16.8 40.1.658204.3.579.2. 1985 Unknown [id number] 2.16.8 40.1.649158.3.579.2. 1985 Unknown [id number] 2.16.8 40.1.928974.3.579.2. 1985 Unknown [id number] 2.16. 840.1.063864.3.579.2.196 1985 Unknown [id number] 2.16. 840.1.539825.3.579.2.196 1985 Unknown [id number] 2.16. 840.1.348615.3.579.2.196 1985 Unknown [id number] 2.16. 840.1.743845.3.579.2.196 1985 Unknown [id number] 2.16. 840.1.264043.3.579.2.196 1959 Unknown [id number] 2. 16.840.1.479407.19 1959 Unknown [id number] 1959 Worker's Compensation [id number] [facility] [id number] 2.16.840.1.326323.19 Private Health Insurance [id number] 2.16.840.1.850750.19 Unknown [id number] 2.16.8 40.1.601908.3.579.2.531 Unknown [id number] 2.16.8 40.1.169737.3.579.2.531 Unknown [id number] 2.16.8 40.1.751130.3.579.2.531 Social History Date Type Detail Facility Sex Assigned At [employer] Other Start: 1985 Sex Assigned At Female F [facility] Goals Date Patient Goal Desired Activity /State Clinical Notes 12-06-2020 to 04-07-2023 Note Date & Type Note Facility 04-07-2023 Note [id number]#1.00OTGTIF F [facility] 04-04-[address] [facility] SURGERY Clinical Discharge Summary PERSON INFORMATION Name MICHAEL RAMON Age 37 Years 1985 Sex FEMALE Language Salvadorean PCP Shelley Mc DO Marital Status Med Service Pain Management Surgery Acct# Arrival 04/04/2023 09:45:39 Visit Reason SACROILIITIS Acuity LOS 009 20:28 Address: [address] [place] [address] [address] [employer] [id number] Comment: PROVIDER INFORMATION VITALS INFORMATION Vital Sign [...] 2.5 Milligram Subcutaneous (more content not included)... [facility] 04-03-2023 Note [id number]#1.00OTGT IFF The history of present illness has been reviewed. There are no changes document. [Electronically Signed on: 04/04/2023 10:21 EST] SAM HERBERT MD [Verified on: 04/04/2023 10:21 EST] SAM HERBERT MD [Transcribed on: 04/03/2023 12:50 EST] [facility] 03-18-2023 Evaluation note Encounter Date Diagnosis Assessment Notes Mar, GERD (gastroesoph ageal reflux disease) (ICD-10 - K21.9) Will send PPI daily, will recheck at upcoming appt in Mar, Irregular periods (ICD-10 - N92.6) Given new onset intermenstrual bleeding and menorrhagia will refer to rnfa for evaluation. Discussed likely need for pelvic u/s and possible EMB. Pap deferred today due to period. [employer] [facility] 12-14-2023 Evaluation note* Encounter Date Diagnosis [...] depression in full remission (ICD-10 - F32.5) [employer] [facility] 12-13-2023 NotePatient Education Materials Follows: [facility] Evaluation note* Encounter Date Diagnosis Assessment Notes [...] sleepiness, or poor response to treatment. . [employer] Other [id number] Note [id number]11-17-2023 [facility] SURGERY Clinical Discharge Summary PERSON INFORMATION Name MICHAEL RAMON Age 37 Years 1985 Sex FEMALE Language Salvadorean PCP Nicolasa SMITH, Thu Marital Status Med Service Pain Management Surgery Acct# Arrival 01/24/2023 11:22:25 Visit Reason LUMBAR SPINAL STENOSIS WITH NEURO CLAUDICATION Acuity LOS 002 02:56 Address: [facility] [address] [employer] [address] Comment: PROVIDER INFORMATION VITALS INFORMATION Vital Sign [...] Type Location Start Finish State PT 30 ([facility]) PT 01/27/2023 9:30 AM 01/27/2023 10:00 AM Confirmed PT 30 (more content not included)...[facility]6128 Note [id number] The history of present illness has been reviewed. There are no changes document. [Electronically Signed on: 01/24/2023 07:23 EST] SAM HERBERT MD [Verified on: 01/24/2023 07:23 EST] SAM HERBERT MD [Transcribed on: 01/23/2023 13:43 EST] [facility]11-15-2023 NotePatient Education Materials Follows:[facility]ngujpav99-09-8874 Evaluation note* Encounter Date Diagnosis Assessment Notes Treatment Notes Treatment Clinical Notes Jan, Hepatic steatosis (ICD-10 - K76.0) [employer] [facility] 10-05-2023 Evaluation note* Encounter Date Diagnosis Assessment Notes Treatment Notes Treatment Clinical Notes Dec, HAMMOND (nonalcoholic steatohepatitis) (ICD-10 - K75.81) PATIENT TO PROCEED WITH LABS AND FIBRSOCAN. Dec, Hepatic steatosis (ICD-10 - K76.0) Dec, Elevated liver enzymes (ICD-10 - R74.8) [employer] [facility] 09-27-2023 NotePatient Education Materials Follows: [id number] NotePatient Education Materials Follows: Hypertension, Adult Your [...] Keep all follow-up visits. Medicines ? Take ttqy-qsp-qkmvqih and prescription medicines only as told by [...] ? High blood pr (more content not included)...[facility] HospitalFzmnueql30-37-5747 Note Patient Education Materials Follows: Hypertension, Adult [...] doctor. This is important. Medicines ? Take rwhp-rou-zftdzmj and prescription medicines only as told by [...] for high bl (more content not included)... [facility]Avdkwwzm24-52-6906 Note [id number]12-14-2022 Evaluation note* Encounter Date Diagnosis Assessment [...] sleepiness, or poor response to treatment. . [employer] [facility] 08-29-2022 NotePROCEDURE: XR FOOT RT MIN 3 VIEWS COMPARISON: 06/09/2021 HISTORY: Pain FINDINGS: BONES:Interval removal of fixation plate in the first metatarsal-phalangeal joint. No acute fracture or dislocation. SOFT TISSUES:Postsurgical soft tissue swelling and subcutaneous emphysema EFFUSION:None visible. OTHER: Negative. IMPRESSION: Interval removal of first metatarsal-phalangeal joint fusion hardware Electronically authenticated by: WEN MCCABE Date: 2021-11-05 13:57[facility]12-01-2021 Evaluation note* Encounter Date Diagnosis Assessment Notes [...] sleepiness, or poor response to treatment. . [employer] [facility] 09-29-2021 Evaluation note* Encounter Date Diagnosis [...] changes in symptoms and/or problems with treatment [employer] Other Evaluation noteNo assessment information available [facility] Work Phone: Evaluation noteNo InformationNort [employer] Other Hisvpdk general Narrative - Reported* Type Description Date Medical History depression Medical History anxiety [employer] Other Hisymzf general Narrative - Reported* Type Description Date Medical History depression Medical History anxiety Medical History severe PRAKASH [employer] Other History general Narrative - Reported* Type Description Date Medical History depression Medical History anxiety Medical History severe PRAKASH Medical History diabetes mallitus Medical History sleep apnea Surgical History cholecystectomy 2005 Surgical History RIGHT FOOT-HELIX 2020 Hospitalization History SEE ABOVE [employer] Other History general Narrative - Reported* Type Description Date Medical History depression Medical History anxiety Medical History severe PRAKASH Medical History diabetes mallitus Medical History sleep apnea Surgical History cholecystectomy [address] Cheek--RIGHT FOOT-HELIX [address] Cheek--right foot hardw are removed 2022 Hospitalization History see above [employer] Other Chief Complaint and Reason for Visit [...] 1 Irregular periods (N 92.6) Referral Organization [facility] Medicin e Check Referring Provider First Name Shelley Referring Provider Last Name Jesusita Referring Provider Specialty Family Medi cine Referred Organization [facility] Referred Address ,[place], [place],[address] Referred Provider Specialty OB - Gynecol ogy Referral Priority Routine Additional Source Comments REASON FOR VISIT (unrecogniz ed section and content) HST [id number] NEW PAP USER No InformationPATIENT IS HERE AT THE REQUEST OF THU BALDWIN FOR NASHPATIENT IS HERE FOR A FOLLOW UP FROM FIBROSCANNo InformationGET ESTABLISHEDchange orderRefill on medicationpapBowel movements Care Teams (unrecognized sec tion and content) [...] and content) DATE CREATED AUTHOR 04/14/2022 [facility] DATE CREATED AUTHOR AUTHOR'S ORGANIZ ATION 04/03/2023 [facility] DATE CREATED AUTHOR AUTHOR'S ORGANIZ ATION 04/07/2023 [facility] DATE CREATED AUTHOR AUTHOR'S ORGANIZ ATION 04/10/2023 [facility] DATE CREATED AUTHOR AUTHOR'S ORGANIZ ATION 04/12/2023 [facility] FOR RECORDS PERTAINING TO PATIENTS WHO [...] BE BASED ON THE PRIMARY CLINICAL RECORDS. [employer] provides no warranty or guarantee of the accuracy or completeness of information in this document.
== END 2023-04-15 09:52 | disposition home or self-care (01) ==
LOC: VC 09:51
PROVIDERS: PCP Radiology Diagnostic Radiology; Visit Provider Radiology Diagnostic Radiology
DX: I80.01 Phlebitis and thrombophlebitis of superficial vessels of right lower extremity (principal)
CPT/HCPCS: 93971; G0463

== ENCOUNTER 2023-04-30 10:08 | Outpatient (OUT) | payer OTHER, SELFPAY ==
--- OUTSIDE RECORDS SUMMARY | 2023-04-30 10:13 | XMS_ITS | CCD ---
Author Name Unknown Address [address] [facility] [address] [place] [address] Organization [facility] Care Team Providers Care Screwmaker Automatic Name Role Phone Wen Pollack Unavailable MD Wen Pollack Attending Provider DO Thu Linda Primary Care Provider [phone] LOR CHEEK Attending Unavailable SHARON REYES Consulting [...] YAN Patino Attending Unavailable STRICKLAND, DR YAN Paitno Consulting Unavailable MARCO A, DR YAN Patino [...] Care Unavaila SARA Cramer Attending Unavailable SARA TUTTLE Admitting Unavailable SARA TUTTLE Consulting Unavailable LOR CHEEK Attending Unavailable MISC, DR GARCIA Primary Care Unavailable ELIOT, DR WEN Bassett Consulting Unavailable LOR CHEEK Admitting Unavailable LOR CHEEK Consulting Unavailable Asaad, Imad Unavailable Shelley Mc Unavailable DO Nicolasa Thu G Primary Care Provider MD Job Martinez Attending Provider MD Wen Pollack Attending Provider [phone] DO Katerina Mca A Primary Care Provider [phone] Piedad MARTINEZ, Sam Funes Attending Kodi Goldman PACKAGING SALES CONSULTANT-INBOUND SALES REPRESENTATIVE, Bia Kitchen Attending Pennie Herbert MD, Sam Funes Attending Kodi Herbert MD, Sam Funes Attending Kodi Goldman PACKAGING SALES CONSULTANT-INBOUND SALES REPRESENTATIVE, Bia Kitchen Attending U RIO Mcgee Attending Unavailable CLINTON MULLER Attending Unavailable PRINTYCLINTON Referring Unavailable SCHULZRIO Attending Unavailable RIO SCHULZ Attending Unavailable NICOLASA, THU G Attending Unavailable MD Wen Pollack Attending Provider [phone] MD Job Martinez Attending Provider Nicolasa, Thu Primary Care Unavailable [place], Bia M Admitting Unavailable [place], Bia M Attending Unavailable Nicolasa, Thu Primary Care Unavailable SAM HERBERT F Attending Unavailable PIEDAD SAM F Admitting Unavailable Nicolasa, Thu Primary Care Unavailable [place], Bia M Admitting Unavailable [place], Bia M Attending Unavailable Nicolasa, Thu Primary Care Unavailable Efrain Bellime Etelvina Attending Unavailable Bell Mati L Admitting Unavailable Nicolasa, Thu Primary Care Unavailable Ray Mati Etelvina Attending Unavailable Bell, Mati L Admitting Unavailable Nicolasa, Thu Primary Care Unavailable [place], Bia M Admitting Unavailable [place], Bia M Attending Unavailable Bell Mati L Attending Unavailable Nicolasa, Thu Primary Care Unavailable Bell, Mati L Admitting Unavailable Nicolasa, Thu Primary Care Unavailable KINDSAM Main F Attending Unavailable PIEDAD SAM Tomas Admitting Unavailable Mc, Shelley Primary Care Unavailable SAM HERBERT Attending Unavailable SAM HERBERT Admitting Unavailable Ray Mati L Referring Unavailable Nicolasa, Thu Primary Care Unavailable Lor Cheek Attending Unavailable Lor Cheek Admitting Unavailable Nicolasa, Thu Primary Care Unavailable Longoria, Ulices Attending Unavailable Longoria, Ulices Admitting Unavailable Nicolasa, Thu Primary Care Unavailable Igor DPM, Lorenzo Connors Attending Kodi Costa DPM, Lorenzo Connors Admitting Mati Huerta Attending Unavailable Nicolasa, Thu Primary Care Unavailable Bell, Mati L Admitting Unavailable Nicolasa, Thu Primary Care Unavailable Keily Duvall Attending Unavailable Keily Duvall Admitting Unavailable Bell, Mati L Attending Unavailable Nicolasa, Thu Primary Care Unavailable Bell, Mati L Admitting Unavailable Nicolasa, Thu Primary Care Unavailable Longoria, Ulices Attending Unavailable Longoria, Ulices Admitting Unavailable Nicolasa, Thu Primary Care Unavailable Bia Goldman Admitting Unavailable Bia Goldman Attending Unavailable Bell, Mati L Attending Unavailable Bell, Mati L Admitting Unavailable Nicolasa, Thu Primary Care Unavailable Bell, Mati L Attending Unavailable Mc, Shelley Primary Care Unavailable Bell, Mati L Admitting Unavailable Bell, Mati L Attending Unavailable Nicolasa, Thu Primary Care Unavailable Bell, Mati L Admitting Unavailable Nicolasa DO, Thu G Unavailable Jesusita DO, Shelley Primary Care Provider [phone] Asaad, Imad Attending Unavailable Nicolasa, Thu G Primary Care Unavailable Asaad, Imad Admitting Unavailable Wen Pollack Admitting Unavailable Wen Pollack Attending Unavailable Jesusita, Shelley A Primary Care Unavailable Asaad, Imad Attending Unavailable Jesusita Shelley A Primary Care Unavailable Asaad, Imad Admitting Unavailable Mc, Shelley A Primary Care Unavailable Asaad, Imad Admitting Unavailable Asaad, Imad Attending Unavailable Allergies Allergy Classification Reported Allergen(s) Allergy Type Date of Onset Reaction(s) Facility (3 sources) Iodine; Translations: [iodine] Drug Allergy 4 Unknown, [facility] (1 source) Adhesive bandage; Translations: [Adhesive Bandage] Propensity to adverse reactions (disorder) [facility] (1 source) Povidone-Iodine ; Translations: [Betadine] Drug Allergy [facility] Medications Current Medications Medication Drug Class(es) Dates Sig (Normalized) Sig (Original) acetaminophen 250 mg / aspirin 250 mg / caffeine 65 mg oral tablet (1 source) Platelet Aggregation Inhibitor, Nonsteroidal Anti-inflammatory Drug, Central Nervous System Stimulant, Methylxanthine take 2 tablets by mouth once daily aspirin-acetamin ophen-caffeine (Excedrin Migraine) 250-250-65 MG tablet Take 2 tablets by mouth 1 (one) time each day at the same time. 0 Active baclofen 10 mg oral tablet (12 sources) gamma-Aminobutyric Acid-ergic Agonist Start: 03-11-2023 take 10 mg by mouth twice daily Baclofen Active 10 MG PO Twice daily March 11, 2023 12:00am take 1 tablet by merry th every twenty-four hours Baclofen 10 MG 1 tablet Orally once a da y Active Baclofen 10 MG/2 0ML as directed Intrathecal Active 24 hr buPROPion hydrochloride 300 mg extended release oral tablet (11 sources) Aminoketone Start: 03-11-2023 take 300 mg by mouth once daily in the morning Bupropion Hcl Active 300 MG PO Every morning March 11, 2023 12:00am take 1 tablet by merry every twenty-four hours buPROPion HCl ER (XL) 150 MG 1 tablet in the morning Orally Once a day Active Clotrimazole (3 sources) Azole Antifungal Clotrimazole 1 % 1 application Externally Twice a day Active Clotrimazole 1 % 1 application Externally Twice a day Active diclofenac sodium 50 mg delayed release oral tablet (12 sources) Nonsteroidal Anti-inflammatory Drug Start: 03-11-2023 take [...] Orally Once a day Active Gas Relief (6 sources) Gas Relief Activ e Laxative 25 MG (6 sources) take 1 tablet by mouth once daily at bedtime as needed Laxative 25 MG 1 tablet at bedtime as needed Orally Once a day Active loratadine 10 mg oral tablet (13 sources) take 1 tablet by mouth once daily loratadine (Claritin) 10 MG tablet Take 10 mg by mouth 1 (one) time each day at the same time. 0 Active Claritin PRN Act caleb Claritin Active magnesium citrate 100 mg oral tablet (6 sources) Magnesium Citrat e 100 MG as directed Orally Active melatonin 1 mg oral tablet (15 sources) Start: 03-11-2023 take 1 mg by mouth at bedtime Melatonin Active 1 MG PO Bedtime March 11, 2023 12:00am Melatonin 1 MG c apsule Melatonin 0 Active Melatonin Active metFORMIN hydrochloride 500 mg oral tablet (12 sources) Biguanide Start: 10-28-2022 End: 10-28-2023 take 500 mg by mouth once daily Metformin Active 500 MG PO Daily March 11, 2023 12:00am mounjaro 5 mg/0.5ml solution pen-injector (3 sources) inject 5 mg by subcutaneous injection every week Mounjaro 5 MG/0.5ML 5 mg Subcutaneous once a week Active mounjaro 7.5 mg/0.5ml solution pen-injector (3 sources) inject 7.5 mg by subcutaneous injection every week Mounjaro 7.5 MG/0.5ML 7.5 mg Subcutaneous weekly for 30 days Active Mounjaro 7.5 MG/0.5ML solution pen-injector (1 source) Start: 03-23-2023 Mounjaro 7.5 MG/0.5ML solution pen-injector INJECT 1 PEN SUBCUTANEOUSLY ONCE A WEEK 0 03/23/2023 Active omeprazole 40 mg delayed release oral capsule (5 sources) Proton Pump Inhibitor Start: 04-24-2023 take 40 mg by mouth once daily Omeprazole Active 40 MG PO Daily April 24, 2023 12:00am Start: 03-18-2023 omeprazole (Pr iLOSEC) [address] capsule TAKE 1 CAPSULE BY MOUTH ONCE DAILY 30 MINUTES BEFORE MORNING MEAL 0 03/18/2023 Active phentermine hydrochloride 37.5 mg oral capsule (3 sources) Sympathomimetic Amine Anorectic take 1 capsule by mouth every twenty-four hours Phentermine HCl 37.5 MG 1 capsule Orally Once a day Active pregabalin 50 mg oral capsule (12 sources) Start: take 1 capsule by mouth once daily Pregabalin (Lyrica) 50 mg Capsule Active 50 MG PO Daily March 11, 2023 12:00am Super Enzymes - (6 sources) Super Enzymes - as directed Orally Active Tirzepatide (2 sources) Start: 01-02-2 024 Tirzepatide (Mounjaro) 7.5 mg/0.5 mL Pen Injector Active 7.5 MG SUBCUT every week March 11, 2023 12:00am Problems Active Problems Problem Classification Problem Date Documented Date Episodic/Chronic Acquired foot deformities (1 source) Hallux rigidus, right foot; Translations: [HALLUX RIGIDUS RIGHT FOOT] Onset: 06-13-2021 Chronic Acute and chronic tonsillitis (13 sources) Enlarged tonsil; Translations: [Hypertrophy of tonsils] Onset: 12-06-2020 Resolved: 12-06-2020 Chronic Anxiety disorders (15 sources) Mixed anxiety and depressive disorder; Translations: [Other specified anxiety disorders] Onset: 12-06-2020 Resolved: 12-06-2020 Chronic Cardiac dysrhythmias (1 source) Atrial fibrillation; Translations: [Unspecified atrial fibrillation] Chronic Diabetes mellitus without complication (8 sources) Type 2 diabetes mellitus; Translations: [Type 2 diabetes mellitus without complications] Onset: 10-28-2022 Chronic Disorders of lipid metabolism (1 source) Mixed hyperlipidemia; Translations: [Mixed hyperlipidemia] Onset: 03-18-2016 10-28-2022 Chronic Hepatitis (12 sources) Nonalcoholic steatohepatitis; Translations: [Nonalcoholic steatohepatitis (HAMMOND)] Chronic Menstrual disorders (5 sources) Irregular periods; Translations: [Irregular menstruation, unspecified] Onset: 08-25-2019 Chronic Mood disorders (12 sources) Major depressive disorder, single episode, unspecified; Translations: [Major depression in full remission] Onset: 11-14-2021 Resolved: 08-08-2022 Chronic Nonmalignant breast conditions (1 source) Fibrocystic disease of breast; Translations: [Diffuse cystic mastopathy of unspecified breast] Onset: 03-18-2016 10-28-2022 Chronic Other liver diseases (9 sources) Steatosis of liver; Translations: [Fatty (change of) liver, not elsewhere classified] Chronic Other liver diseases (2 sources) Fatty (change of) liver, not elsewhere classified Chronic Other liver diseases (1 source) Cirrhosis of liver; Translations: [Unspecified cirrhosis of liver] Chronic Other liver diseases (1 source) Unspecified cirrhosis of liver Chronic Other liver diseases (3 sources) Abnormal levels of other serum enzymes; Translations: [Other nonspecific abnormal serum enzyme levels] Onset: 03-11-2023 Episodic Other liver diseases (1 source) Elevated liver enzymes level; Translations: [Abnormal levels of other serum enzymes] 03-15-2023 Episodic Other nervous system disorders (1 source) Chronic pain; Translations: [Other chronic pain] Onset: 08-08-2022 Resolved: 08-08-2022 08-08-2022 Chronic Other nutritional; endocrine; and metabolic disorders (13 sources) Morbid obesity; Translations: [Body mass index (BMI) 60.0-69.9, adult] Onset: 10-28-2022 10-28-2022 Chronic Other nutritional; endocrine; and metabolic disorders (4 sources) Body mass index (BMI) 60.0-69.9, adult; Translations: [BMI 60.0-69.9, adult Z68.44] Onset: 12-06-2020 Resolved: 02-07-2021 Chronic Other nutritional; endocrine; and metabolic disorders (1 source) Morbid (severe) obesity due to excess calories; Translations: [MORBID SEVERE OBES D/T EXCESS SOFÍA] Onset: 11-14-2021 Chronic Other nutritional; endocrine; and metabolic disorders (11 sources) Body mass index 40+ - severely obese; Translations: [Body mass index (BMI) 70 or greater, adult] Onset: 08-26-2022 08-26-2022 Chronic Other nutritional; endocrine; and metabolic disorders (1 source) Body mass index (BMI) 70 or greater, adult Chronic Other upper respiratory disease (1 source) Seasonal allergic rhinitis; Translations: [Other seasonal allergic rhinitis] Onset: 08-08-2022 08-08-2022 Chronic Residual codes; unclassified (12 sources) Sleep apnea; Translations: [Sleep apnea, unspecified] Chronic Residual codes; unclassified (6 sources) Obstructive sleep apnea (adult) (pediatric); Translations: [Obstructive sleep apnea (adult) (pediatric) G47.33] Onset: 12-06-2020 Resolved: 02-07-2021 Chronic Residual codes; unclassified (10 sources) Insomnia; Translations: [Other insomnia] Chronic Residual codes; unclassified (2 sources) Other insomnia Chronic Residual codes; unclassified (3 sources) Continuous positive airway pressure ventilation treatment; Translations: [Dependence on other enabling machines and devices] Chronic Residual codes; unclassified (1 source) Obstructive sleep apnea (adult)(pediatric); Translations: [Obstructive sleep apnea (adult) (pediatric)] Onset: 02-19-2023 Chronic Unclassified (1 source) POST COVID-19 CONDITION UNSPECIFIED; [...] INTRL ORTHO PROS DEV GFT INIT] Onset: 2 Episodic Deficiency and other anemia (1 source) Anemia, unspecified; Translations: [ANEMIA UNSPECIFIED] Onset: 2 Episodic Diabetes mellitus without complication (1 source) Hyperglycemia; Translations: [Hyperglycemia, unspecified] Onset: 0 10-28-2022 Episodic Esophageal disorders (5 sources) Gastroesophageal reflux disease; Translations: [Gastro-esophageal reflux disease without esophagitis] Onset: 3 Resolved: 3 Chronic Headache; including migraine (2 sources) Migraine, unspecified, not intractable, without status migrainosus; Translations: [Migraine without aura, not refractory ] Onset: 2 Resolved: 3 08-08-2022 Chronic Miscellaneous mental health disorders (1 source) Eating disorder; Translations: [Eating disorder, unspecified] Onset: 3 Resolved: 3 08-08-2022 Chronic Other aftercare (1 source) care home (current) use of aspirin; Translations: [MEDICAL BILLER/CODER CURRENT USE OF ASPIRIN] Onset: 2 Episodic Other aftercare (1 source) Other senior living (current) drug therapy; Translations: [OTH MEDICAL BILLER/CODER CURRENT DRUG THERAPY] Onset: 2 Episodic Other aftercare (1 source) care home (current) use of oral hypoglycemic drugs; Translations: [MEDICAL BILLER/CODER USE ORAL HYPOGLYCEMIC DX] Onset: 2 Episodic Other circulatory disease (1 source) Elevated blood-pressure reading, without diagnosis of hypertension; Translations: [ELEVATED BP READING W/O DX HTN] Onset: 2 Episodic Other connective tissue disease (1 source) Arthrodesis status; Translations: [ARTHRODESIS STATUS] Onset: 2 Episodic Other connective tissue disease (1 source) Pain in right foot; Translations: [PAIN IN RIGHT FOOT] Onset: 2 Episodic Other gastrointestinal disorders (1 source) H/O: gallstones; Translations: [Personal history of other diseases of the digestive system] Onset: 7 10-28-2022 Episodic Other lower respiratory disease (1 source) Shortness of breath; Translations: [SHORTNESS OF BREATH] Onset: 2 Episodic Other non-traumatic joint disorders (1 source) Osteophyte, right foot; Translations: [OSTEOPHYTE RIGHT FOOT] Onset: 2 Episodic Other nutritional; endocrine; and metabolic disorders (1 source) Obesity caused by energy imbalance; Translations: [Morbid (severe) obesity due to excess calories] Onset: 3 Resolved: 3 08-08-2022 Chronic Residual codes; unclassified (20 sources) Obstructive sleep apnea syndrome; Translations: [Obstructive sleep apnea (adult) (pediatric)] Onset: 3 Resolved: 3 08-08-2022 Chronic Residual codes; unclassified (1 source) Dependence on continuous positive airway pressure ventilation; Translations: [Dependence on other enabling machines and devices] Onset: 3 Resolved: 3 08-08-2022 Chronic Residual codes; unclassified (1 source) Acquired absence of other specified parts of digestive tract; Translations: [ACQ ABSENCE OTH PART DIGESTV TRACT] Onset: 2 Episodic Residual codes; unclassified (1 source) Procedure and treatment not carried out for other reasons; Translations: [PROC AND TX NOT CARRIED OUT OTH REASONS] Onset: 2 Episodic Spondylosis; intervertebral disc disorders; other back problems (6 sources) Radiculopathy, lumbar region; Translations: [Low back pain] Onset: 3 Episodic Superficial injury; contusion (9 sources) Contusion of right foot, subsequent encounter; Translations: [Contusion of right foot, initial encounter] Onset: 2 Episodic Results Test Name Value Interpretation Reference Range Facility Glucose Glucometer (BldC) [M ass/Vol]Ordered By: Job Martinez on 04-24-2023 Glucose [Mass/Vol] 137 mg/dL [facility] Comment on above: Random Glucose Refer ence Range is dependent on time and content of last meal. Glucose of more than 200 mg/dL in a nonstressed, ambulatory subject supports the diagnosis of Diabetes Mellitus. Glucose Poct Glucometerson 0 04-24-2023 Glucose [Mass/Vol] 137 mg/dL Normal [facility] Comment on above: Result Comment: [place] om Glucose Reference Range is dependent on time and content of last meal. Glucose of more than 200 mg/dL in a nonstressed, ambulatory subject supports the diagnosis of Diabetes Mellitus. PERFORMED BY: [address] [place] [address] PATHOLOGIST SLATER APPRENTICE SINCERE GREENWOOD M.D. Performed By: #### G LULS #### Point of Care testing , Glucose [Mass/Vol] 78 mg/dL Normal [facility] Comment on above: Result Comment: [place] om Glucose Reference Range is dependent on time and content of last meal. Glucose of more than 200 mg/dL in a nonstressed, ambulatory subject supports the diagnosis of Diabetes Mellitus. PERFORMED BY: [facility] [address] [place] [address] PATHOLOGIST SLATER APPRENTICE SINCERE GREENWOOD M.D. Performed By: #### G LULS #### Point of Care testing , HCG ( test) Ashok shaffer Ql (U)Ordered By: Job Martinez on 04-24-2023 HCG ( test) Ql (U) Negative [facility] HCG,Urineon 04-24-2023 Beta HCG ( test) Ql (U) Negative Normal [facility] Comment on above: Result Comment: PERF ORMED BY: [facility] [address] [place] [address] PATHOLOGIST SLATER APPRENTICE SINCERE GREENWOOD M.D. Performed By: #### U HCG #### [facility] [address] Vladimir 04-24-2023 L Specimen: [id number] Received: 04/24/23 Status: EV[facility] Serna Num: [id number] Spec Type: Surgical Subm Dr: Job Martinez MD Tissues: A GASTRIC FOR HP (GAASTRIC RO HP) Procedures: HE/2, Gross/Micro L4, H PYLORI Age/ Patient Sex Location Account Attending Physician Michael Ramon 38/F [id number] Job Martniez MD SPEC NUM: [id number] RECD: 04/24/23 STATUS: [facility] SERNA NUM: [id number] GRACE: 04/24/[address]: Job Martinez MD ENTERED: 04/24/[address] [facility] [address]: SPEC TYPE: Surgical DEPT: S ENTERED BY: [id number] RECV BY: [id number] ORDERED: HE/2, Gross/Micro L4, H PYLORI ORDERED: HE/2, Gross/Micro L4, H PYLORI Pathological Diagnosis Stomach, biopsy: - Fragments of unremarkable gastric body and antral mucosa. - Negative for H. pylori on H. pylori immunostain. Clinical Information Cirrhosis, rule out H. pylori Gross Description Received in formalin labeled with the patient's name, date of and biopsy gastric are 2 sutton soft tissue fragments, 0.2 and 0.4 cm in greatest dimensions. Entirely submitted in one cassette labeled A1. Microscopic Description Microscopic evaluation supports the above rendered diagnosis CPT Codes 20983, 86889 Specimen: [id number] Received: 04/24/23 Status: [facility]ENS Serna Num: [id number] Spec Type: Surgical Subm Dr: Job Martinez MD Tissues: A GASTRIC FOR HP (GAASTRIC RO HP) Procedures: HE/2, Gross/Micro L4, H PYLORI Patient: Michael Ramon [id number] (Continued) Signed (signature on file) Saranya Brown MD 04/25/[address] [facility] ED Clinical Summaryon 2023 ED Clinical Summary [facility] ? Urgent Care [address] [place] [id number] Clinical Summary PERSON INFORMATION Name: MICHAEL RAMON Age: 38 Years Sex: FEMALE : 1985 MRN: Acct#: Visit Reason: Medical screening exam; [facility] F/U RIGHT FOOT Arrival: 04/23/2023 09:47:48 Discharge: 04/23/2023 10:20:00 LOS: 000 00:33 Check In: 04/23/2023 09:47:48 Checkout: 04/23/2023 10:20:00 Address: [facility] [place] [facility] [address] PCP: Shelley Mc DO PROVIDER INFORMATION Provider Role Assigned Unassigned Mati Bell PA-C ED PA 04/23/2023 09:52:09 Devan RN, Chery ED Nurse 04/23/2023 10:01:17 VITALS INFORMATION Vital Sign Triage Latest Temperature Tympanic Temperature Temporal Artery Pulse Rate O2 Sat 98 % 98 % Respiratory Rate Blood Pressure /78 mmHg /78 mmHg MEDICAL INFORMATION Medications Given: Allergy Information: Adhesive Bandage; Betadine PHYSICIAN DOCUMENTATION DISCHARGE INFORMATION: Discharge Disposition: Home Discharge Location: Home PATIENT EDUCATION INFORMATION Instructions: Follow-Up: With: Address: When: Return to this practice Comments: FriJuly 22 at 10 a.m. DIAGNOSIS: Contusion of right foot; Hallux rigidus Patient Understands: Yes - Patient/family/caregiver verbalizes understanding of instructions given Comment: Normal [facility] ED Patient Summaryon 024 ED Patient Summary [facility] ? Urgent Care [address] [place] [id number] PATIENT DISCHARGE INSTRUCTIONS Patient Information Name: MICHAEL RAMON Age: 38 Years Date of : 1985 Reason For Visit: Medical screening exam; [facility] F/U RIGHT FOOT Arrival Time: 04/23/2023 09:47:48 Primary Care Physician: Shelley Mc DO Attending Physician: Mati Bell PA-C Comment: Patient Education With: Address: When: Return to this practice Comments: FriJuly 22 at 10 a.m. Medication Information: The exam and treatment you received today in the [facility] Emergency Department were for an urgent problem and are not intended as complete care. It is important for you to follow up with a doctor, nurse practitioner, or physician?s assistant professor surgical technology for ongoing care. If your symptoms become [...] so we can reach you if necessary. [facility] Emergency Department has provided you with a complete list of medications post discharge. Please inform your molecular biology professor/provider of your visit and for further instruction [...] mouth) At bedtime. Refills: 2. buPROPion (buPROPion 300 mg/24 hours (XL) oral tablet, extended release) [...] by mouth) once a day (in the morning). IN THE MORNING WITH MEALS. omeprazole (omeprazole 20 mg oral delayed release capsule) 1 cap(s) Oral (given by mouth) every day. before a meal. pregabalin (Lyrica 50 mg oral capsule) 1 cap(s) Oral (given by mouth) once a day (in the evening). Refills: 0. tirzepatide (Mounjaro 7.5 mg/0.5 mL subcutaneous solution) 0.5 Milliliter Subcutaneous (under the skin) every week. Visit Information Visit Diagnosis: Diagnoses This Visit Contusion of right foot (S90.31XA) Hallux rigidus (M20.20) Medical screening exam ([id number]) If you received any narcotics, sedation, or [...] any legal documents Reason for Visit: Medical screening exam- follow up work related injury Allergies: Substance Reaction Symptoms Type Comments Betadine Drug rash/itching Adhesive Bandage Other skin discoloration Vital Signs: Vitals and Measurements this Visit (last charted value for your 04/23/2023 visit) Vital Signs This Visit Temperature Oral: 36.9 DegC Peripheral Pulse Rate: 77 bpm Respiratory Rate: 18 br/min Systolic Blood Pressure: 118 mmHg Diastolic Blood Pressure: 78 mmHg SpO2: 98 % Oxygen Therapy: Room air Measurements This Visit Height/Length Measured: 162.56 cm Weight Measured: 159.21 kg Weight Dosin.210 kg Body Mass Index: 60.25 kg/m2 BSA Measured: 2.68 m2 Problems List: Problem Onset Comments Depression [...] tips on how to relieve symptoms and f (more content not included)... Normal [facility] Urgent Care Note- Provideron 04-23-2023 Urgent Care Note- Provider Patient: MICHAEL RAMON Age: 38 years Sex: FEMALE : 1985 Associated Diagnoses: Contusion of right foot; Hallux rigidus Author: Mati Bell PA-C History of Present Illness OCCUPATIONAL HEALTH FOLLOW-UP Date of injury: 08/26/2019 Claim #: [id number] Employer: [employer] Mechanism of Injury: She was moving boxes of [employer] when one fell onto the top of her right foot. 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 On 08/26/19 she was moving boxes of celery when a box fell off of the cart and landed on the top of her right foot. She was initially on light duty per [employer]'s telehealth visit. When she was not getting [...] in time. She feels the toe is 90-95% improved at this point in time. The last request for PT was not addressed according to her. She arrives in a loosely fitting [facility] for a shoe, and has been instructed by podiatry to continue home exercises which she does, and follow-up PRN. Her course has been complicated by some back pain for which she is seeing pain management for. She recently had another successful injection, and feels this is relatively controlled as well. She relates the back pain as being related to her inability to bear full weight on the right foot for an extended period of time and brought on by ambulating awkwardly with her CAM boot, but treatment is being pursued outside of the claim. She is very deconditioned from being off and sedentary throughout all of this. We requested work conditioning, which was finally allowed, but not tolerated very well by the patient. This made her back worse. She completed an FCE on 01/11/23 and she states voc rehab has been approved, but AGAIN she states no one has reached out to her to start this yet. FCE demonstrated she will not be able to go back to her heavy job that she had previously. She cannot climb ladders, kneel or crawl, she has restricted standing/walking/stairs/squ atting/kneeling, and can perform seated work without restriction and upper extremity work without restriction. She denies fevers, chills or malaise. No [...] improved. Health Status Allergies: Allergic Reactions (Selected) Mild Adhesive Bandage- No reactions were documented. Nonallergic Reactions (Selected) Mild Betadine- No reactions were documented.. Medications: (Selected) Prescriptions Prescribed Lyrica 50 mg [...] History Medical history: Resolved Lower back pain ([id number]): Resolved.. Surgical history: CT guided sac (more content not included)... Normal [facility] Recordon 024 Urgent Care Record [facility] ? Urgent Care [address] [place] [address] PATIENT DISCHARGE INSTRUCTIONS Patient Information Name: MICHAEL RAMON Age: 38 Years Date of : 1985 Reason For Visit: Medical screening exam; [facility] F/U RIGHT FOOT Arrival Time: 04/23/2023 09:47:48 Primary Care Physician: Shelley Mc DO Attending Physician: Mati Bell PA-C Comment: Visit Diagnosis: Diagnoses This Visit Contusion of right foot (S90.31XA) Hallux rigidus (M20.20) Medical screening exam ([id number]) If you received any narcotics, sedation, or [...] Address: When: Return to this practice Comments: FriJuly 22 at 10 a.m. Medication Information: The exam and treatment you received today in the [facility] were for an urgent problem and are not intended as complete care. It is important for you to follow up with a doctor, nurse practitioner, or physician?s assistant professor surgical technology for ongoing care. If your symptoms become [...] so we can reach you if necessary. [facility] has provided you with a complete list of medications post discharge. Please inform your molecular biology professor/provider of your visit and for further instruction [...] mouth) At bedtime. Refills: 2. buPROPion (buPROPion 300 mg/24 hours (XL) oral tablet, extended release) [...] by mouth) once a day (in the morning). IN THE MORNING WITH MEALS. omeprazole (omeprazole 20 mg oral delayed release capsule) 1 cap(s) Oral (given by mouth) every day. before a meal. pregabalin (Lyrica 50 mg oral capsule) 1 cap(s) Oral (given by mouth) once a day (in the evening). Refills: 0. tirzepatide (Mounjaro 7.5 mg/0.5 mL subcutaneous solution) 0.5 Milliliter Subcutaneous (under the skin) every week. Visit Information Allergies: Substance Reaction Symptoms Type Comments Betadine Drug rash/itching Adhesive Bandage Other skin discoloration Vital Signs: Vitals and Measurements this Visit (last charted value for your 04/23/2023 visit) Vital Signs This Visit Temperature Oral: 36.9 DegC Peripheral Pulse Rate: 77 bpm Respiratory Rate: 18 br/min Systolic Blood Pressure: 118 mmHg Diastolic Blood Pressure: 78 mmHg SpO2: 98 % Oxygen Therapy: Room air Measurements This Visit Height/Length Measured: 162.56 cm Weight Measured: 159.21 kg Weight Dosin.210 kg Body Mass Index: 60.25 kg/m2 BSA Measured: 2.68 m2 Problems List: Problem Onset Comments Depression [...] Yes Sore Throat (except strep) NO Fluid (more content not included)... Normal [facility] Coding Summaryon 04-07-2023 Coding Summary HTMLBase 64 BghttxmlDYd9mXg+PGhlYWQ+PE1 JEJXiR74sqZZwrG5pG6CRWRvAOx ojVHLRYMgMUdNjziArZH3itCZhG XJu IC8+NR4uIEPrVbfggOSge4N8wRL 3Y42npx6fIYfthRH4KPQdHzAdzj gkq6olcWr9ULiwRpumHjMt KIJysE05QQA6tA22Gf87dSMncND qb7vonDg6MmHaLOExYGQ8wFlrYZ jyp5BxLUXeO66znYOgs9Y0 LRUlcJrnkVMqVbDapMR9kG6sJQo wqgyon1tkgqliHiq8ql87pTWdz3 Q9vBL7D1QbpmK8KNVlnUXl XfaksNUDxW2rxyzoi8okgxcbZwJ rIPCqLDu3MIu3OFKfqOiqIvSiDS 39CVT8NKScihXcV4OfKSRi jWviCiZ5o3G1Rj6ST0OEHyhoU7F NTUFSWTwvdGQ+SQ92et85J5VxXf yaOjg0IWHyJHC7sZR8hP3f QNWxRIawe9Q7bRP0V2KzxmKxpg3 vc5siAPWbPKhgH59yjLNaj5G1BQ BgrLX2QKNicBlaXyWccI33 Oyc+GLKliGjnp0DlUcpna9pss8l brTu0LitxFXYnvkSrdNpuNSG3j3 MyVu4nQFChiJH8vYR3kC9v AoCiNvX8MKgpP530PyKhrFNoPhx qN71fR7SwiSP+JZSlAwz7QCRdlY osFO4cF7QyYTLgvpkkqVGw wIlrJU6mSKIrambwSJMdzR3eJSS qW6c3LzLoQiG3WNmnS4BaUUKpdh kcXr32kN9uBiIqVhK8PHgn W9KdhrL7XDPutYSnIZgvYIH5N65 rg9N0EPEvHUEwQLR8uPY3cN7lqZ lnbjogbGVmdDsgdmVydGlj AYkmJMljG526WVRwfRnpXwPsAJy uZyBEYXRlOiAgMDEvMjkvMjAyND wvdGQ+ALOzXZT1hNvcQQQj hEPoQGsmEw3kaBirhXftAV2aYAN kzmeyRHFnoU0vKRPnnLHlmLbfJN 8pEWGyicgro559RnKcVFS4 HGAlaAHaN7BkcK5lAaSrXDFsFLG hI9LnaXQdJVheW961BWbaBkJ6QL RvbiVhQ0TcYSVcnBptMiV9 w6A1Zh5Xi2BwqckpV8QcnIDxBnF mQxulNNi4F9ZaAprqnUG+PC90YW YrIB83LZg9BFM8eJkmYAgf XAKaO7DxjN4oAyNlSVTqONDqIlp +PHRhYmxlIHdpZHRoPScxMDAlJy TevWmwDT9cMb0mAJIlATIm xCbbyRCbRxNzy1dtUYEoZRphNV0 guIdwI4NzbWY1KLQlf6y0Sp74E1 3tA7TefLN+RQBbvYY1lLP9 jE9pHiRqUjJ6JGznU586AsJykJK qHfncn3qcg5pkyAh3BgJ4ZVYwhu NjtMepHYE0b7XaZy31Q15t IHdpZHRoPSIxNSUiIHZhbGlnbj0 wtH9tPi4+OKIrcDV9jMS2sP9uWf VxCaZ2MIybX094BvBzvKOm Itlot3qaa5hywXr4FtKiVLJsjpI woMomUOR9e6PuGq05U2IjwEhoq1 ZkTre4gu59xTFpf8E8gRN6 G3HrARKtnljikERxiEmvJL2sFWL lpieoZPDehY6rPTShY7f7ZjRoVm L5NKshH4SeslL8PJMgoKKm ZVEtxYFOgD2zxnldf1vfdsblDfM xVXHhWKz0IWz8IYLshQqoLmMoIU Y9FdA6YKR2eLXbxD9utXku yrowtQ9gKsy+MEM2hNUvsPQKLP4 lOjwvdGQ+ZZUxNHK0eIhtUVauIV VftS4bJYUyH6c0UnYuFuH1 MPwnS4JmrjH4VBSaiBHjLCApoII NxN5zudyop2lxmuvcJsEaJENjMR h5ULb4WCZwaFabXqBzDQT1 NpI5OFY6dCAqhN5nmEcuambswD6 wOyc+TpuczWdgQOB5TVv3Z5WqHz i3PBXtxUkwGB8erQGwYPmt Tr5ldBmecWvfUW8nKFMnvirzj27 9EzMqy6twDQWxbQKkYAkyUOI4O0 9wc8R0PAJsTLQhWYO5aSA3 mX7ilVknpjqeyJToeJvtmmHqnNa xOAjbHBusW754KBIpwIvpYfByEL o2U7McMuu3YTZzqGqlEJ9e pTJoSFpaMb3bvIzmdLtmEW8bIKL mnjyly314MoKcv1ttEFGnuKPlGW ytIET6Y42fz1V5ISZhQVSh DXY5dPR1iJ8arTwpkrrmqKPfqFw fxfLdwFraCLpdYHidS463NCVusS njXgCevQa2K0VbTdc6UAQi zHfpML3usCTlYLvcLh3kqAvgoFq pMR2uKFIhymoyk528HkYeb9ubIE RlbFHeHPcrJBV2D50fm0O3 BEOnFGCvILX9iGI0zU8ruSejqih gbGVmdDsgdmVydGljYWwtYWxpZ2 46IHRvcDsnPlBhdGllbnQg MFpyGYk5W7YgYvqwoJD+XU49UZH dMQ74kUOmoMSbl8mycVx6JeQeOE ZdLCL1kHhpUTtdi1WrMREt Q24xpUCww9Y6ZALsuYgjuQYmFgY luLH8xM5cRSgrcpfgj8quhycpOd kyz9vtxw53sV11L94cSXqe EOYsRLKtUHDpLHWicRcnga3zfI8 wIi8+UZCqkJO3qAF7fY6zKSAvQj F1UMhwQ646McGitCBuDwif e1ugi5qofXj9KbO3OYDwdsTckDv gQVK9n2BrDu25Y95iJJjoWHUlGV DoMMGaNRFycBocbt7kwR6t Ii8+ICJyiNL3hXF4sC1yCxCrTnT 2HJjeW452LwRjnGWeHqisU72iK8 JvdXA+JAPnJxp6VHUmjUcm SP5xuYRrGJxrIp0kRKM4BuNeDcI kARusC9VrJUNqxywtxdjkgJA8VI VpVDUvoY26Gl5juKcsYEEa lEBPiH2mydkwx9hdxblsSjXeEDO pGBk0BMr4LPBfeKabRqXlZKK2Ms P2RMK6jFTulL7rgFyclrpx lO1sR2AyPWWhjuodBb91vX5nEtF gTzY5CYzwVnz+TVVMTEVOUywgUk PTGRAWLNHEWBeVKsD7G1Aw Tnx5OPKliKyySB3icRSyOUuvAr9 eiTicyPveOO3lYXVhwgeeKJPdcR 4qEURjuJJgeIljSK0qIXJs scjji198WrAgIRG8VUFamGVeJ9C iaW1lXvWoEHOdIUInD2WwhAVoDT dxW755FGsvPrS1HRQgcnEy I4ViVKOoeWpdNfA1w9I0Cv9tON7 jEe2gEPb6LF90MH63wKDos1J9wI S3G4CkQELqzsaxcktqgOR0 RHWrYKDjiM90sULcCYkrJo4nb8U 8e580CNStAAFfkG13Bn3ujZsnSK FcoNLFeC7khbryz5xyfhby JnEtFGPvIOx1ZMb2RHPyeIenKrJ yIHG8OiN7WJH9vZFwxG9xkTrrsb aygF8zGnk+MzggWWVhcnM8 X5WgUwr9WHApvSikMJ2eyQChHTn fOl3dqMtezQehHI7jWWOodabgSQ JqjY9gCIWxmVGthXbqLE1z YVMdabfcn327ZuXyNOW6CSNwbIW jJ1JayQ8wLmEqQSQmUYGqJ1ChzS XyRJesY639RQosZvA5OIDj qpDyM5TtZIHjnQcdUtU8s6V0Dr5 JPF7JDQP7B8LrNjk2BAUxtKnqRJ 2gbHZbQXtcQw0rmUeqnIqe MN9xUUKqikqrGFSgnK9fJDGjnIQ foSukJQ7sOGWannehd832MbUvCH I2BOYoqHCfT9AjaY7rZpLv WPBvBOAxC3SxqDXwPOboG975VKe wGlA2FHLzkaOhP7DaIPAdfScqDw H7n1S9Hb1DHOehT4CyG4Ma eTwvdGQ+TM05dz82P8MpEjbpPee 2PZXfSWY9tJR9jM6fXIHoBFnst3 P7eBB0T6FossSxtp4sn6jc BSZeKQkaF12jyBMsd4Z3BJYnpFK 2RRAqsGceRkRhtZ95Nvi+PGNvbG pnm1YiDiipn7cql7nmwXy2 RmGkNLBahlTauOzoCUJ1w9UiSn0 8J03yWCfyOHTbWGOlNSLrLXIfvD ywiy4ihC8eLs6+PGNvbCB3 mQZ6aQ0zAiKtNxP6IKyyZ428NzB vuAPuUjjlm6xda2yqrFq4HgIrSE KpytLigXnjWHH9w5JwFz58 D4IjmEzbx5FmMvs7oh40wUZss6D 3yKU4B5MzTSDpcqsdzLXuwThmME 7eOOEfvwehPKZcxF9eNZMp H3c6HyQaZxD6VDhjS4EgzwW9PFS biQHnJLGuuSCEjW0khpfmx1bzxy zxJhMzTQMhKDf8OAn7KQWm dZxmWySoLBL5KlM6BRV7jWPtiD3 vyRvdmwclhK6pFer+KMi4e2fwhJ ZgPN7giYJ8VQ75UN15qXOl o5V6vWE4R5FvVJZwrzhvzxzmnNA 4WNIlSNBioO76Hm7taHnrYn1aIP VsNQN1WHKlpECuI1NchT6v ZpTrSDLsTSPaA7UupBXoNCxrT53 8OJviSyS5XIEswpVgS2JkSZZjbH iuKxR2m9N5Qk1AQT59UY78 MR45pOIzy0A4yXI1C4BgGSVcstf jrcmbrJQ8ETWrQLUkcQ72Jc9nwT doOq8bVHIbDWV4SXRrgDKu Z7EjrH6fCpQmMUEmQJHoI6VgiEX mIMnlP455UUjvOpV3QUDfgpPiW7 PeNTLjjPrsQwZ7e5I8Tm9A Oz49UL33ZX86hNPpi6V3rFN7A1V yFNLephwrcjuucCZ3BWHzESQijX 34Nn8txNlcLn5uHBZiFDN1 CTBkaYCzK9WyeA4bVfGtBLEwNRZ aY4YknISxKFtrH915XDhgAyT8BO VfpdOuA8MzXCJqxHnzKlN8 y1D6Dn9NHAqjlrd6U9NeQmollKC +OG60IMDqQF85bCVnrHUed3bchO g1WsXzARCeLAX4tGphWHxt b3J (more content not included)... [facility] Consent Formson 04-07-2023 Consent Forms [id number] [facility] Inpatient Patient Summaryon 04-04-2023 Inpatient Patient Summary [facility] [address] [place], [place] [id number] Patient Discharge Instructions Name: MICHAEL RAMONLINA : 1985 Patient Address: [address] [place] [address] Primary Care Provider: Name: Shelley Mc DO After you are discharged if you find you have any questions, please, call [phone] to speak to a nurse. Discharge Diagnosis: Prescription Information: If you have been given a prescription for narcotics, seek immediate medical attention if you have any difficulty breathing or any sudden status changes such as confusion and sleepiness. If you or anyone you know is experiencing suicidal thoughts, mental health, alcohol and/or drug addiction problems; contact the [facility] 30/09 Crisis Hotline -Text 4HOPE to 290948. If you received any narcotics, sedation, or [...] business decisions or sign any legal documents [facility] would like to thank you for [...] Sore Th (more content not included)... Normal [facility] MAGR Intraoperative Recordon 04-04-2023 MAGR Intraoperative Record MAGR Intra-Op Record Summary Primary Physician: SAM HERBERT MD Finalized Date/Time: 04/04/23 11:11:31 Pt. Name: MICHAEL RAMON SHAQ /Sex: 1985 FEMALE Med Rec #: [id number] Physician: SAM HERBERT MD Financial #: [id number] Pt. Type: D Room/Bed: / Admit/Disch: 04/04/23 [...] Sherry L RT (R) ARRT Role Performed Quality Control Coordinator Relief Quality Control Coordinator Java Xml Developer Time In 04/04/23 11:04:00 04/04/23 11:04:00 04/04/23 11:04:00 Time Out 04/04/23 11:12:00 04/04/23 11:12:00 04/04/23 11:12:00 Procedure SI Joint SI Joint SI Joint Injection(Bilateral) Injection(Bilateral) Injection(Bilateral) Last Modified By: Ami Baker RN, Barbara RN Long, Barbara RN 04/04/23 11:11:26 04/04/23 11:11:26 04/04/23 11:11: Entry 4 Entry 5 Entry 6 Case Attendee Georgette Thorne Brittany E CSFA KINDL, THOMAS F MD GOLD LEAF LAYER Role Performed Java Xml Developer Scrub Personnel Surgeon - Primary Time In 04/04/23 11:04:00 04/04/23 11:04:00 04/04/23 11:04:00 Time Out 04/04/23 11:12:00 04/04/23 11:12:00 04/04/23 11:12:00 Procedure SI Joint SI Joint SI Joint Injection(Bilateral) Injection(Bilateral) Injection(Bilateral) Last Modified By: Ami Bkaer RN, Barbara RN Long, Barbara RN 04/04/23 11:11:26 04/04/23 11:11:04/04/23 11:11: Entry 7 Case Attendee Nestor Hoyt GOLD LEAF LAYER Role Performed Scrub Personnel Time In 04/04/23 [...] Larissa Matos RN, Rosy Jaime RT (R) CHRIS, Georgette Thorne, Valerie Palomino GOLD LEAF LAYER, SAM HERBERT MD Last Modified By: Ami Baker RN 04/04/23 11:06:40 Patient Positioning MAGR (more content not included)... Normal [facility] MAGR Preoperative Recordon 0 04-04-2023 MAGR Preoperative Record MAGR Pre-Op Record Summary Primary Physician: SAM HERBERT MD Finalized Date/Time: 04/04/23 11:08:51 Pt. Name: TRISTENMICHAEL /Sex: 1985 FEMALE Med Rec #: [id number] Physician: SAM HERBERT MD Financial #: [id number] Pt. Type: D Room/Bed: / Admit/Disch: 04/04/23 [...] Signed By: Ami Baker RN 04/04/23 11:08 [facility] POCT Glucose Levelon 024 Glucose [Mass/Vol] 78 mg/dL Normal 74-118 [facility] Comment on above: Performed By: #### 4 [id number] ####[facility] (DEFAULT)[address] [place] [address] Patient Handouton 04-04-2023 Patient Handout [facility] Progress Note - Provideron 0 03-27-2023 Progress Note - Provider [id number] [facility] Progress Note - Nurseon 03-10 Progress Note - Nurse Pt called for refi ll on Lyrica into [facility] reviewed and OK, pt compliant with OV, sent to Dr Herbert for approval [Electronically Signed on: 03/25/2023 11:52 EST] Josefa Schuster LPN [Verified on: 03/25/2023 11:52 EST] Josefa Schuster LPN [facility] Physical Therapy Noteon 03-10 Physical Therapy Note [id number] [facility] Progress Note - Nurseon Progress Note - Nurse Patient called and left voicemail requesting refill of Baclofen be sent to [facility]. Patient compliant. Prescription sent to pharmacy. [Electronically Signed on: 03/18/2023 09:30 EST] Bertaeli Giuliana MORGAN [Verified on: 03/18/2023 09:30 EST] Priyankaravindra Giuliana MORGAN [facility] Coding Summaryon 03-17-2023 Coding Summary HTMLBase 64 EkhmdaesDVi0yIl+PGhlYWQ+PE1 GDQEcK48nzBNdaZ6sB8DYFTeEDf euBKNOSDpCIgJrqlZuNS9siRBxQ XJu IC8+BZ3ePRMcQyxqbLBzl5K3iZH 9C30kat6yWMafpTN2QOJeCwFmii vvt3eqfVc7EOhtGshhGkZr RPWyxK95PAN8yY08Jc10pLKlwLO rk6ykaPr0ZfUxRDGqWBG3nWaaIQ yap1OlGFUrM35gnWTxv9M8 CROgfLkgbXOgJtGgfWE0wQ6dZGe qemhhq8djwasyRoy6ud98bOCit2 V4sOF4N9LpidA9ULOneTPi UlohnHAKvA1rzqegr9aetsvgRyC oXAOjVAe6ECz2YZGtqSsjVfDvSW 06PFD1XDItljHaO3WtEKOc zTqkHyA0h5H0Tk3NV4IKMktaE2R NTUFSWTwvdGQ+SF32xt89R4PxFu xxOio0VOLgUTT9vOI9tX5l HKCxMYkmb1Q4nLJ4G9VjneJyjg2 sl9ecQONmZIolN91nqVEih7Y3RZ SulQZ2XDVphBcbTaUrrP49 Oyc+VDCtuWbxv7DvHkdbn7hhg2d juPb7KoleIWFwqrVmtSmiKXD3v2 AsSv9wBLVbeFS5tWF0pW1q UjYvCjR3JLjeK547GnHxrMFzZbg lV28lO6EneSN+UCOxMhb5XJDuvO tzHV1dT8BqQTIqbplklWIc aGalXI4oPELnnhgxRFIdwT2pVYW eC0g4BvBkIfT1RCdkI3YsHRGrat gmMp17fT5pZiOkFvD1YPyw A4JyrnS6YSPipLWmRNhfUAH7S00 az8F4VYGkMQSkVYL4aAA2iR8sxR lnbjogbGVmdDsgdmVydGlj MTzlTWwvS936JAMrnThwHaYtXDi uZyBEYXRlOiAgMDEvMDgvMjAyND wvdGQ+UMImXHQ4iOplMLCe eZXiZArpJe5uiDgfxFxtBP8kVLE rbjemWSWijW8hESRabZYicBflOW 4lOJZknglbi090HqRtRHJ1 RHUvcNRhT8VnbE1pBsJxJGPuKJF bJ8SndHVsZLqzO550INrzFdN7MH OicxDqI5IrMZLmpBepXbA9 v4H8Yb9Ge6IfanlxM1CgoSJpIcO tYuatSZw2L7GmMxeceND+PC90YW HtTF09ATo6ZGF1hDvzKSna PQPtD4OlnY1tAqXvAOGnDVBoEdh +PHRhYmxlIHdpZHRoPScxMDAlJy ZtsVvwKD2dWm2eIMLoBIYg rWjfoSAxKvGbl0pyRXNpBBtgSY8 gzNvrV9JewOO8LVWae9o1Dg63X6 7yI7NzcQT+EELsyND9xSF9 aQ8aDoWvHcF6RSqzJ754DhJwqUM mQtdsf4upf7zgiXi2QqY0UOAzdb FmcOigMDR9z7BjQi64H74w IHdpZHRoPSIxNSUiIHZhbGlnbj0 igG0zRt8+UVLshTK8mFR3uA3xVq LdAeU7EKsfF173LlBgdXDk Naohd6gye4ueqWg8WrCmYYKtzeA lvJthDNE3q8TtMy97B8WsnQpmu2 DrSpt4kt06fBSnj5Z9qKJ6 D7AlYBKfolvwsAGdgFwqQF6cKME mfgeoZKFebR5pEAFuQ5r9ZqFdDp F4BUcaD7LmiqA9EIBurIIz RHEbfPQIvR7cswsnm3nsszkgZiO vHSPdYHb9SBu0VPLmwNgsCbQrKL Z7ZxK6UDL8nPWxxG6jgCws bwdnkT9lQlb+JTU9wFScpJVUTX4 lOjwvdGQ+EOZlZWT2bJftISdeEJ JlfK6oZXOwX3b3WnYiBsG2 MLuxN4IuxtF2DYTsoXXzSMJysFA SsF8xpiela0hhsursYmBdXFDpWT i0DJu2MHVztSmgSyMfFCD7 LuV7TLH5gMTvrO8wxLvmuwbuhE9 wOyc+KvdxsPvwOGW0OLt7I3YzWl c1SOZukNgvMA3odJIsAEuc Aw8vnNaujLdrTQ8rWEQblwiix56 0QdQet9lpVAAcsZWmEWceDRE1U6 3ic9Z6UQXbTYXcWHJ3dSN8 kO1plZvokppoxFBuyToofyJkpTd pLBxxHKreP684BSTmkBqlYnSxZA w6I2DcSjq0FJAfqHisNF1r yBCsITyzKg5epNxhmWvdNI2dNOT imwejn416HvYer0kpELJrsVAvLC pjJYK8G23jw8Z2JCLzEHZx BOW5zVI0oY3viCtudmjtlVWqjMz bbnHgxWoqFJjcFEwhS101DWAbmV rtWuQwbCw7M5NiYwo8JIIu dHyyRS7dlPReJCkuOp4gqZmbnMp aVC1nHVVuvolmy038BhBrb8diAQ ArjKYiSHrwRLJ6X02nb9J7 KVEaVVWyIOC8pLG2rH8glXfgybr gbGVmdDsgdmVydGljYWwtYWxpZ2 46IHRvcDsnPlBhdGllbnQg MPvwWZw7N3JgWmuosSF+QL24TCD yIG06kAWgwASxg7jvkHy9MhFbUW UiGYW4aKtySWsug4GnBMKi X46sxIAfc4N5XIUvhZvpxKVvDhY rwBO1pD9kMFezwnoai5rwottpSi ojs9mnxh31cK93S23vTOpq IHSdVDXqGNVzKCOeaSahhz7jvC1 wIi8+EENmqJK2oRT2sY2dPFSkSh E4XRswS276IrXccGAiWtqp i4nfi6tmcAc7IvY1LDWhqmCoxMm kPVA4g3BsEw15X70sADoqMGOjAS CpSSSqKVAsvAfclo0yoL6i Ii8+TFVetJQ0bRO8eX7dQkSqPmL 2ZJtoO270AaWeePUtHrgsZ05gF9 JvdXA+IHZbAzu2DTQfkSsn RO9zcCVmBMvmTd8kKJP6ItGyAjR gBMejY8VnYBHqbaupewonbSA2FG UdKQAuvG47Do7awMbdWMTb dPWWlB0rxfinm2dbjbkbUjHmITV dKYy0USq5QJVjbCksMrUiMOH0Ie T7DQC2bBPjqF4yfKuyvfqf sM0sA7KhQPZkvacmMh90mY4wBhD dMkE2ZInfLql+TVVMTEVOUywgUk YWGRJSJKDYDXdAXiY1N8Zg Dyy8XHIizFgpEK9lqYTwQNbwDf5 zdFlrqPwvFT5xFITaxltdCLDwaX 3uYZQelOKgmTjwVJ7rSHEy kajfe921HoEsMOA2DBDlrSTkR1N rqA4lHlZzGEVrZDSwL8BdeMKcAO lzJ765DPngUrO6JTIaqyBz G8EaDKIvfRraYfU9y8M5Hl0fXB3 mLj2tMId7EW60NB29hWDht2E5pZ R2O3QxFHColupocooiiNO8 TTQvBQRdqA38sUZdRBbgBf9ki4H 4y724YPNdXOCxeO73Wu2viSarZD QxsOPQgK2oivceq1aazbtt AxPgVBGeXQk0DQb4XAWtyGwdXeS aUYD8BhV7JXD9qILwfD8pcMuwsx mjaR6bQtl+MzcgWWVhcnM8 Z7NmMby9IYTemHibND5vdEZiOUt oKl6zzLjfoIpdIE5kPDJotcakBF PhfX4kNEBtnZBcmVjvPQ6q NUOjedeqt929WyYfYTQ9HPCzoPU uE5WbmU2zKnMfYAGmKSDqR1EbyH QxHWspY258GKarCkC9LSTw xtDwT1UmBFLvwXjlCtC0k1I5Pj1 AAU4FFSQ6P2UkCmv0OLRvhMgpUL 2zpIRjJEsxHj6zxHxznJcw IK3jILEmsmqwNYDlbA1dCHEgmNI tkDfhTI9uZVGkjznbc190KzFsWZ A3AGAhsKUeN8OzgF3vAzEk SLFjMBUxB4FeeRVkICcqA700SOv yDgG9FEFmnsCgM5LbUIIwsUqpXg Z7r1T3Li0XVTmeyST+PC90 cm05J1FeUgakBsl1FPItDBF2qFV 5kT6uERNcVMkyr1Q1hYU3H1Fajy Enbr7ei8apBAToNSiuW54m wFLjk2U7BJXplRQ9TSDwaFgbEbL xvH03Fsw+ELWowNoqb3UxQrzil4 fxh3oxcKa6TcFtMHTlzjEd kXukDUU1j5PdTp41C66tPUwsNQP rKVYsIQEiHWGgaPzscc9qxY4hMz 8+VJXzwSJ7tML2jV0rNlIe OvC3WJmiY832SbAubDWnKqdla0a nv4cogKo8MhEnRSWvnrDabFekUY V0l4CqNw97I8TorUewe2Ik Isa7ru16iEGpn1D3oOQ8V3GzUXP vumoemFXigIatTW8uKEOxdcitNV UanP5wRRQhA4g9WyTuRyR1 JBhyF4IvvrP0TVValMFxSYImrIC PiW3ozvnbv4srtzovKaSrUGFcYK e3SXx3DLWyuBujHqVjVYC7 SwG2OCG3lSXynB1kzSyvoowksG0 wOyc+CFn5g4msuIPdOQ3ehCP9OK 55SG70jKNog1V5oQO6K4Qt IBMcghdaybesrKN5LVBwTABvlI9 9Gx4enNtmGc1jHQNmCEZ7RCPflR TiZ6PxuJ7xHuCbJIXzFFOe S5FgrMCxQHcdY824VYqfDwO4IYR zssDoJ2GwZNBvrFhmRqF3a0Z8Ie 8KHF26IE96KP30bIXdh3D5 fWG4E6QlIGNesgfhycgkaKE2OUZ fQBUpiB00Zq4tpKrlQa5wBITfHP Y7RMOlaJWeW5FjfF5jVoUn FLPnKFZiC5DtsFZiSGxlQ956YPr qUqM8AGYzjiFmP5QkAMJtaHxoDh A1k4Q2Li4SWp08SO71WH26 hPZjw2F2yXG6Z0DwSVCmpoymqtl hbCE3RVPsQRVhzW13Us5vjTudFj 2oZZFwGSL0XIYqhXYbL9Gq kK7zHmFpTSXqPXWeY6GjyGVeFTr sM225MJkkMmD7VAGbtoCrX5HaYS NveGmkTgE2l8W4Ll2LTOee sud2A1DmFyyvdKO+JC77VSLkHB9 3qTCqiYIsj3thfDl4LvVnJQGkTR V2hTzqKPyrd3XrEARdC58k bGF (more content not included)... Normal [facility] Activated partial thrombopla stin time (aPTT) in platelet poor plasma by coagulation aOrdered By: Job Martinez on 03-11-2023 aPTT Coag (PPP) [Time] 37.6 s 25.1-36.5 [facility] Comment on above: A hematocrit value g reater than 55% may lead to inaccurate results in coagulation testing. Patients having hematocrit values >55% require a special collection tube for coagulation studies. Please contact the laboratory at [phone] for redraw instructions. Coagulation Profileon 2023 aPTT Coag (Bld) [Time] 37.6 s High 25.1-36.5 [facility] Comment on above: Order Comment: STAT FOR UL Result Comment: A he matocrit value greater than 55% may lead to inaccurate results in coagulation testing. Patients having hematocrit values >55% require a special collection tube for coagulation studies. Please contact the laboratory at [phone] for redraw instructions. PERFORMED BY: [place] [address] PATHOLOGIST [employer] SINCERE GREENWOOD M.D. Performed By: #### P P, PLT #### [address] INR Coag (PPP) [Relative time] 1.1 {INR} Normal [facility] Comment on above: Order Comment: STAT FOR [...] Performed By: #### P P, PLT #### [address] PT Coag (PPP) [Time] 12.3 s Normal 9.0-12.9 [facility] Comment on above: Order Comment: STAT FOR UL Result Comment: A he matocrit value greater than 55% may lead to inaccurate results in coagulation testing. Patients having hematocrit values >55% require a special collection tube for coagulation studies. Please contact the laboratory at [phone] for redraw instructions. Performed By: #### P P, PLT #### [facility] [address] [place], [place] [id number] [facility] INR in Platelet poor plasma by Coagulation assayOrdered By: Job Martinez on 03-11-2023 INR Coag (PPP) [Relative time] 1.1 {INR} [facility] Comment on above: INR Therapeutic Rang e [...] - 4.5 Vladimir 03-11-2023 L ------- Specimen: [id number] Received: 03/11/23 Status: EVENS Serna Num: [id number] Spec Type: Surgical Subm Dr: Mohit Mcghee DO Tissues: A Liver - Needle Biopsy (LT LOBE LIVER) Procedures: Trichrome, Reticulum I, Iron, HE/2, Gross/Micro L5, PAS - Hemat, PAS - Diastase Age/ Patient Sex Location Account Attending Physician Michael Ramon 37/F [id number] Job Martinez MD SPEC NUM: [id number] RECD: 03/11/23 STATUS: SOUT REQ NUM: [id number] GRACE: 03/11/23- SUBM DR: Mohit Mcghee DO ENTERED: 03/11/[address] [facility] [address]: Job Martinez MD SPEC TYPE: Surgical DEPT: S ORDERED: Trichrome, Reticulum I, Iron, HE/2, Gross/Micro L5, PAS - Hemat, PAS - Diastase ORDERED: Trichrome, Reticulum I, Iron, HE/2, Gross/Micro L5, PAS - Hemat, PAS - Diastase Supplemental Report Addendum 1 Entered: 03/18/23 Supplemental for findings of consultation report from [facility]: -Features of steatohepatitis with bridging fibrosis, cannot rule out focal early nodule formation Addendum Signed (signature on file) Ritchie Spring MD 03/18/23 1258 Pathological Diagnosis Left [...] also with Specimen: [id number] Received: 03/11/23 Status: SOUT Req Num: [id number] Spec Type: Surgical Subm Dr: Mohit Mcghee DO Tissues: A Liver - Needle Biopsy (LT LOBE LIVER) Procedures: Trichrome, Reticulum I, Iron, HE/2, Gross/Micro L5, PAS - Hemat, PAS - Diastase Patient: Michael Ramon [id number] (Continued) Specimen: [id number] Received: 03/11/23 (Continued) Pathological Diagnosis (Continued) Signed (signature on file) Ritchie Spring MD 03/14/23 1246 Specimen: Received: 03/11/23 Status: EVENS Serna Num: [id number] Spec Type: Surgical Subm Dr: Mohit Mcghee DO Tissues: A Liver - Needle Biopsy (LT LOBE LIVER) Procedures: Trichrome, Reticulum I, Iron, HE/2, Gross/Micro L5, PAS - Hemat, PAS - Diastase Patient: Michael Ramon [id number] (Continued) Specimen: [id number] Received: 03/11/23-1158 (Continued) Pathological Diagnosis (Continued) occasional PMNs at [...] associated and (more content not included)... Normal [facility] Platelet Counton 03-11-2023 Platelets (Bld) [#/Vol] 284 10*3/uL Normal 150-450 [facility] Comment on above: Order Comment: STAT FOR UL Result Comment: PERF ORMED BY: [place] [id number] PATHOLOGIST SLATER APPRENTICE SINCERE GREENWOOD M.D. Performed By: #### P P, PLT #### [place] [id number] [facility] Platelets Auto (Bld) [#/Vol] Ordered By: Job Martinez on 03-11-2023 Platelets (Bld) [#/Vol] 284 10*3/uL 150-450 [facility] Prothrombin time (PT)Ordered By: Job Martinez on 03-11-2023 PT Coag (PPP) [Time] 12.3 s 9.0-12.9 [facility] Comment on above: A hematocrit value g reater than 55% may lead to inaccurate results in coagulation testing. Patients having hematocrit values >55% require a special collection tube for coagulation studies. Please contact the laboratory at [phone] for redraw instructions. US guide needle placementon 03-11-2023 US guide needle placement [facility] Main [place] [address] [place], [place] [id number] Ultrasound Report Signed Patient: Michael Ramon MR#: [id number] 2328 : 1985 Acct:[id number] Age/Sex: 37 / F ADM Date: 03/11/23 Loc: Room: Type: [facility] Attending Dr: Job Martinez MD Ordering [...] Mohit Mcghee M.D.03/11/2023 2:50 PM Dictation Location: [place] [address] Tech: Denia Goodwin Transcribed By: SAEID 03/11/23 1450 Dictated By: Mohit Mcghee DO 03/11/23 1446 Signed By: 03/11/[address] [facility] US needle biopsyon US needle biopsy [facility] [place] [address] Ultrasound Report Signed Patient: Michael Ramon MR#: [id number] 2328 : 1985 Acct:[id number] Age/Sex: 37 / F ADM Date: 03/11/23 Loc: Room: Type: [facility] Attending Dr: Job Martinez MD Ordering Provider: Job Martinez MD Date of Service: 03/11/23 US/US needle biopsy: . Copies to: Job Martinez MD Post biopsy ultrasound assessment of the liver. HISTORY: No worrisome bleed. US/US needle biopsy IMPRESSION: No worrisome post biopsy bleed. Impression dictated by: Mohit Mcghee M.D.03/11/2023 3:44 PM Dictation Location: [place] [address] Tech: Denia Goodwin Transcribed By: SAEID 03/11/23 1544 Dictated By: Mohit Mcghee DO 03/11/23 1544 Signed By: 03/11/[address] [facility] Coding Summaryon 03-05-2023 Coding Summary HTMLBase 64 AminetmxQUu4hMd+PGhlYWQ+PE1 SDXGjG94toYWioA7zE2QSVMiLYe ecAWEXISmGFtJqqnInJL2grUJnN XJu IC8+RV0jCLYbFhwqeDCrg3G1pXO 1A37fmw5iEMekcEO0NZIxVwIsjj wmr2vlpBa6UNdoCrsbVoUa ISYyyO68UME8wR75Zl00bQMlpNX mp5hgmVx3DsGhCRFaRMO6nNylOI zee8FkKZYsH73raTSdg0Z4 TFEqbZebuTGfJmFmvAY8pX4wGXv hwdjlz9sqcutuLpz8wn15rIBuc0 U9sCU2B7XuqcP3QXAwnXYl OukdwVQOnF0hjwxfk8ctcccyNbZ vEHQfGJo7DDa4KRSoyEhgUeUyUE 52MFJ4CFZyskLsX1BkXLOa kLeaGzF8p4F7Zj5LF1DHHjbrQ5Q NTUFSWTwvdGQ+VO17eg27P6WqQt ucVss5IMVeOOF7gVM1mJ5n VIBmCWbzl2C2cIT5R1MrncQfpe6 cm9wsYAGaQBpnG86jcOExr4T7HM PplMC2DNFujPxrAzKfvN82 Oyc+PMWciVoor7RxJdske5ymt4o moKu3CxjbFSFkzmFzuJdmIUC6i3 JiSg4mKTPjpFW0gTY7aN0c EsJvWoG8LDbbS873KtZbuKGaMiq aV49aJ6ZygSS+OWPoTdv2NGHocU vsQW3eO9WqFNXninjgmVUg mVsxCG2kFXZqhrxvZPHikZ2iLXJ tN7d1NeHkNeC4OVrpP5NcFHAvyv rrJu37qU6zMaTdRzL1XFsl C2LypnJ6LLHhsKPkQCjiXVQ5D40 dx3K7PCQvIJXkISC2sJS0kX7toM lnbjogbGVmdDsgdmVydGlj IVwfSMwmS901LGKzyOttZoHrEPv uZyBEYXRlOiAgMTIvMjcvMjAyMz wvdGQ+OGIeGJA7pCjgKZXc pSVwLEbnRv5thKwbkZazJE6sBJS kgjvtSCLlmY5tRCQptXZbcTwySV 7pMFGqikyiy009EfQvBIY5 HJAslTOiY9TyxP9cByCsDYGoZIQ sH4KpxFMiSOasX572FZvbJaF7ZC DuhkQwT0XnYPLcxJmgZgH9 d3T1Oe7Gj3VgkyszF8RsmUEsQzW oLzjsGYj9B1PvRmebvMV+PC90YW DfEW52JOu0MFC6hOhnOUnk JAJhO1CobI7lQzRrHLOsDWVyTwu +PHRhYmxlIHdpZHRoPScxMDAlJy AnqElyTQ3mHf8rWVRcBIPa iRqomPQaNuZjo5qzMQMhJBsrBJ2 mfIgeY7GthUB4XKQdc6c1Jx90G2 4sP0YveOK+NRUokET0yMY8 wT1rJmUsDrK2JHmvT580PuPuxGG oKcsbi5ykv8yjbWq1VyU3OAMoli UrcBulMMH0i8IvCw09M53l IHdpZHRoPSIxNSUiIHZhbGlnbj0 vuK1zPf4+CYVnrJE5tBR6iN0hFl SuWpU0NLucN642QcOpgCHa Dtebp6qbf0ojcFd4UqFxUHMdziH eaNhoWXO9u1BiAo24R5WqcBumq8 XuHpp6wq99jEKdy7J8tVM0 V8WeFRVjekecrAQqdXidSY3vYCY bwxvmZVDgaI3uWCXrZ7s1UeUfCk N5OJvsJ3GudcX0ZKHpkFRw CPFwtEUVdM2jazcwv7zsooytRsO hSWQpVMk3ZFa5LLMywCknZbJfTR D9NbU9FLO3mKNlnP0fcYuu fpuztR6qRqy+PMS6kJIirYKZNN0 lOjwvdGQ+MOUtYGI1mMrcYDxfJL MmdJ2yXQJoH6p3ZoMjPmD9 EMudA4PqooZ0BOTjmUEsUSYlnQJ XlQ0thtpnn7btoicoBkZkPUDgTR k0TNx5KGLdvWzwIgCqLBO5 CbV6RGP3wGZvpE4fuFmizfyjuV9 wOyc+OuvycGdgJTV0PTs9V7KiSz y9PLZglXxsTG6dcSUdRVqf Cg1cnDiahArgDA6sMLVqamdtb48 3MrBpa2wvSHQejUUpINzjOCQ1U1 1pd2C2ZKJwDULbYSB2wGV6 zK0arDwwadozcZHumJmxevAptDu sPFpjFBayW687QYGykNkiKxLfXG f1Z6JkAre2OVJsuTwpMT8w bAUyVUjjCn9diBfdtPcmBF5qUNY pkusru384CmFio4feDFIosKXeSF tuBGF4E29es9M5VTMnIZLf JEK2yYA9kX5paZnzjipwaHEarYh qqlVxaDbsWYesTWbpP172QYFpoL kkLiCsuGd8I3RjIip5BWXz pFroDD6qjLNfTTmhCv3kyCttcKg kVE2tGRCwlmpuf150OtEbm1wiDR OwzOPiEHoxKZL6T69vf5E4 BVSvJGOvVTB2qCN2iP6urHisxnt gbGVmdDsgdmVydGljYWwtYWxpZ2 46IHRvcDsnPlBhdGllbnQg KHkxONp7E8YcHeaohQB+EX32LXB cDU35mSViuIXmh3mrzTx9SeMtYK GeXGC2tQdoOQvys8WjWJHb M00lnBJid9K1XEIcaMprqOLpYmN qnVB8iB3cJCstninyf9gcnclsRi kna4jkjp06sQ62S75qLRyz ECKkENOjHCUtWFVsdTjkuk8nrP7 wIi8+XELdsIK0oZS0fM3bFDSaLk S4UMazD191YsTwoRLfCcjm o3frb6irkNr3KzM9VQElutUelKd dUQV4j8VxNb05R71eQXceCGWxWW UvKBSnDITdvOreiu4sxZ4d Ii8+OMOiuLS0hIL3kO6oYtYvLfN 2MBtdB765AyMjeDTrBjhmZ54xW1 JvdXA+FTJeVxe5INHqnAwi RB9ssNGiOZjxOs2tZPO9VyGhHyT tPGrqY1VyOJKxsqxujmfclPA6IA NmUOBaoC69Mz9agUtoGBRd bFRNlA5xswspn2ahbnzrZcPmFWI iKVz3OYu2TQRmpVzcLzUjWEA8Cu R0AAB9zWQjqP5onKfwmbfw fI7wV9YbTCBxedflVn51nD2zEcH eNsJ3BKwxQpm+TVVMTEVOUywgUk WNLDGMXSLTIPkQRdF3E8Hi Mxk4XXPyoEegYN9coJEiNIksRm9 mzUibsMzrHA8qWOScdgyuMJIwtF 1sEPEvjJOgmZavGR0wUMIp eenpi488QeOaVIM5TXGjpMVoF9X waR3sYpFgMTUxAFDkO5PtjYOkFP bdP454KZtjZiL3OZNulyRq U5HiQIGkwEpxZkT3g4Q5Fu4hLR9 bTz4wXXc4UF50MO58dTYhu6S9vE P4X2EyKCEaogpbmdddmWM6 PILqPMEqsF56vSMaMLaaDx4es7Z 6k520WTSsXDYzfO46Qo9bdGuiTN VcoXPVeI8wfafui8ruzcod RvFhHYPgVEq2ASq2IZWftZxeKaS xXGR0QxM5MDC7vBFjmW4phZdkcp namD9dUok+MzcgWWVhcnM8 O2BvWzh7DNDmjEyqLD4qoKBrZUi uUn3asNrteHskQO7fBYYnyuijLK BkbZ9iBSAihXKutNvnHC5m MGMczyjru964UsIbEWT3ELSlnYN pO8OcmR9hWtVfKCGnOMPyG5CabK TyFLxnQ487ZAfgNiK0NVOn dqMgN0BmBEQdgHjfJzJ0v9Q7Uf5 TGK5WJAO0X2AwKuc7WPAagZvxUF 1afWCeQEwrEx6oyAvjnUin UG8uEIXqxilnWOHblX4tVWJojCY ykSvlSA2iVLZjvhoev788FsLsFN S0QSElkPTkF5OrvR9xCmLc QYMoFSWrL7ZfvQEdMMkrG948VTt qVbA2DXClpaCyA5IqTQOwgPtdHp J2m4I0Sy8QXApdxBH+PC90 gx46I5GoJbnzQbk0DMWbKFP9aLI 2oP2gOVQvNHvdq9O9fCE9K8Dbhy Nvmb7oy2yqOJJeNByjP91r yTIhf9L0OIKuoOX5HLLamPhcTpW cnW70Wzn+UNCblFgtx2KqGhdyc5 uyg4bgaKg9OaRzPAYfjwDy tIlbNCC3e4BqFw56W93vYGokAGJ rFFIqDPKdXXUhnMpusa0doP5lYr 8+AMNxtSR0hTG2qA8tRhOc TnA3ZBmvP754NfLacJZjMkulp6c zy3jzeDg7ZqVoMYApwxDlbDpvNO S0q8CtTr81V9MktFtzp3Cm Ijq9rg13zAPoe0F9fHB3O3WfPSR alqhexRTlnQubXN8rVUWxbgakQL HlfK6sWOYyQ9k4YuYuYjR4 SLrpU2MoulI0XFKzsZEaXIPplEG WtI9lmovvz7xqbynsKsWnXUEpZX b7LFt5XSWsyMnfZzQuOEN0 ToJ3CII5tSUwzJ4ewQvzgxhwiD5 wOyc+EAe5g8qhfJNiWD5jxJK2HA 01RT08aBXby3G0hPZ2W7Et BRHltzecgjealJI6SDZyCZDyjU8 2Op9wwSotGm8gOUKoGKZ2JSUopO VkP3QugA9nMeLuKSTkVYKt V0BhbOIzWLjbY152BDtjXsY0AZO hoqDpT9SfCKMpmCtlTwF7r9I4Wu 4DAN53BL04UI19fNLoq8L8 wPI5M9PnBBBseskmufnnqWO1YBA pTRUmgK58Bn3bdLzlZx1eNMRiLR C7JZKwuZOgA1EjjT9xAiTc BWJsSUCyI3CqgEGxVTkqX433OVi uNeW4BIItplWjT3EsWALbtXzzUk E4m5V2Yl3MDm62BG07IU80 gXRfj3L2mKZ9K9NfKBPycepgwzt ihGN6WOFtODBkhV03Kf6vkGwfTr 6jOJUdSZF6POSlxOEbM4Kw mK0iInUnMDStGWNlX0RwlTBsCXr dI157TBacQkA3KKGvfzNnB8DnWZ LkeKnoFoN0p1F6Zb4DSWct mrx8S8VxDnxteOM+WO90DMMkBZ4 1dPTfuEYzs8mnkIq9VpDtVYJzEI I5oYzmPAhrb9CqJJViI37x bGF (more content not included)... [facility] Provider Orderson 02-27-2023 Provider Orders [id number] [facility] Coding Summaryon 02-26-2023 Coding Summary HTMLBase 64 JutaepwlPLg1vYu+PGhlYWQ+PE1 ITZDoE46fbRGigS5lA5CATEmZYt veSRZRBJzREyPfacDlWM0xzMHzE XJu IC8+BB9hSAOfZstvrFOzl4X3kEH 0H11skq0qKQmifBX0RCOoRqKroa roq9vchWt6FEywYeqtTrPg SJHngR98XMP8mU35Xs83iXRuuXK kh9kqjWp6SuRyBJScIQJ4uIapOT daq3QhNMVoQ44weDBnp9A2 WNWnxTbrcAZuRlDazRA6qI1rWZb ydfhho7bmkiloZro2fy24zHSmd5 T5wWN1S9KoijW0FVUlxMVm TmvsbDRCdS5wkcqwo7iamqbaDeR uUVWzKMu5WUr9RGFiuNrjByAhQT 57KUK4LFSojnOfJ1ViKNYj hNdbPnH9y0F0Qe4ZT4VKLfbyU8F NTUFSWTwvdGQ+GK94sg63E1YuIs xvLax1HWHhFGH8dSF4hA8u VDDwFQugs8T6gFI8N5SajmRjlc4 ys5cjEINiMBqiR82hcFXzl1F6ZJ CfkXH3PULiaNhqImQblZ09 Oyc+JGJoyVkcn2BtLuwyv6yhs0b sbUx9SmuuTPPeafMtnCxrIAB5q8 XfPr3zKMLumJF7uEX6rZ4q QhVyFgQ1XOizV879NjBfqEVwLut nX50rV9LyuQV+LKHxTah5AYMipG etXP4nQ2TePGEkuruwbVUb yLggIR4oPDIqujzdLOLssG4pTCW uT7w2CfYaAqZ7GApcW1VtJXWgzd xuGh01uH5dFeUzLlA0KFnm J5GyryJ4JKZjyMNdHBftYGL6T89 vm4E4JKSfEAXtPGL9uGH1iF0dqU lnbjogbGVmdDsgdmVydGlj EFzyWVvmE381CVOrdHtnYcOiZOf uZyBEYXRlOiAgMTIvMjAvMjAyMz wvdGQ+ROCsAIK1dVkoGTNv wPLtZWroIk9pmAlqvWohCJ9nNTD mqixqZMUdzG2aSLXrlNDjzPjgFR 5fSMQikwmkj222IyBrGQP7 OYIxfUXlQ1MasI2wHcQiRGYxRTO aU0LxiWXfSDiuW134VKobVsR0VP PtqdLmO9PvLCJdjCtgLvB5 h2X2Eb9Rk9PrfoctV2UshULuSiM tWyktFXb9F2CmVnyexOF+PC90YW NgYB27MBd2BHK7qZhaPFin GLZvX3NpdB0lYjKjYXGsHVZsZjd +PHRhYmxlIHdpZHRoPScxMDAlJy GwxEwqEF5tPq9xOMPxQCBz jScfgIRlGnCyi5hvOYQiRXcjSS1 ltIbjU1SaqPW1HYCiw2x9Yc93Y6 3cJ5SmtGF+NBXazRH2lTV3 pA3gMxVhAtR6MTgqD893AtAjqCT cTomkc0amj3lapXu1OmS0OXDwwk MjoNenWAN0z6XkEq11U53m IHdpZHRoPSIxNSUiIHZhbGlnbj0 wiB2hRd6+FTLbxOR3hNH0zU4fVv XjCmJ5SNykJ031PcSzpOLe Mmkqm3qji6ycfKj9BtYkWTRpdiJ ndRuoGJI3p5BiVl61D2ZyhDhhz2 XoVyy9dn91wCAce0G9sMB4 Y5OfMTZobavufCUsbPsqBI9mBJR jcmvbGZBjhI9vTCUaH4n6PrUcIx H0LXdtW9IlxwA1ZBHrdMYi BVJwqJOFhK7lxowxy6oaztfjTyZ zSARnLHm6RXi2DBYimNimRuIpXI I4NxB2KRT5tWUhkA8kcDaa ggpdzK4kGkm+ALT6iYVdaCUEYG2 lOjwvdGQ+LAXyEWK9mJceIKmtSC JbwR2fRLEmH6m7VeCoFoY7 JDraB0FptgT4OLAabJUnEHPkkJN QxQ9wnfomn6gevvegZaGtFKAnHA s6UOs2GIJaeYqtDnNqAOH1 RvD6TPX1iTAhcZ8slPlwxktuwM3 wOyc+XtphcZwqHAF9KDr6B8FfXx j3XLCqwOstUR1coGWtYFpx Qo7piNptdPdhPJ2rJQVnqspdm90 7JrBru2usAMJcdDTuRDttRAL6Q1 4hh5X1RHAuYUXoSQX0eAL7 nS5etRdtvsrkcDLgwKzosqClsPb wEAucIZzfA698WMBlfGuzQyWtVY g1N4YuNfl3YOWllMumIO7x cINwCNawYs5byWxhpLgwGK4hKMB zdivao713MiDdc3lsFZAsuDQgYB muVGL6L51is9T5GVPdKXNr TJD9hUL3sK9wtBtkakhhtTMkhVp sksMwwMckNQqpUAseH892CSTuvT ybJjQcyHi8H3TeUyh7KPKb fJibAR3twPJjTHxkPq1whCrjdTo wFT6cIITonlpzn709GyPmk6gjRW GutRLpWHmkSOJ7N30bm4X1 ZPEvMSXcGBS1xFV3qH4qfFeqvod gbGVmdDsgdmVydGljYWwtYWxpZ2 46IHRvcDsnPlBhdGllbnQg QAmvLWm7X8NoDkbfmZW+KM25FBB jDR51hVKnlPXqj2cgbXq2MuYlOM VvKAJ8qLkeTSocf9EuOGMc D39pbISqs9U4OBEwaLcrdJLqHwV grWZ6zZ0lKMaakkxsf1wqnazuOl wom0jenj08yR27M22vCStm TGOmXHLbHBSfGVQdfSemai0pdB3 wIi8+OKTusKD5pDY2wF4rDLNaXy H2QOshY539FdSyzVCrOtvu v9urk4exvGe2KyD9YLXirzDatTx iJZX2e3DfCl30T63uKFzmZAWpEA OpAKZeZCDtiTtnwy7qqX5m Ii8+PDVsgOQ0gKI4bX2pTwTcTvH 1ZPivZ925SpSxbZEjUoxbD85wL2 JvdXA+DEYoUoi5NIDbhBsx NK2uxYHmGGufWo0bPDU1NwLjPdM dKYruT4NbGWUeyhxndcuqpGR8JP RlUSQkyD90Zn5moFkbBGLw tDFDdC8emhzmf3zkyyniRiLoTED jKQz3ALc0SRSikMbkBtMpLGL2Cz P2QJM9zOWfpP1foJqqrhou cE2bB6HpNAEnheqhNi56xV1sVwL yKdF5NWxcCgm+TVVMTEVOUywgUk KQYPRYFTWQSMgBXkI4L5Bz Ppg6LLCzjPnxHO9rtGMxJJwvCg6 wzZnvcLpzPX1kFKNspgmbAGYtaX 4yRMUtbDNqgIlfMF5sRBMx fsann917HaJpBSI3QQOueKDlW8U siD6cMsZgPSAlVUDmB3QliJTnWA lcR251DMihSiM5EPWodrPi O8AeUTVfcSqcPsL7k0I7Dw9kQU6 rMm6uBJf7KE61VI61lMKzt2R5aI R7C7GyHSPrxzlmfldqlMZ4 UAAsFHDakT32tNXpCEvkWv3ee9W 1a564YFOtSATsfP04Ju1hpEmaWY JsyMYSfU5eoewnl7krlmcc XjIoOQRtYVv3WTp7HNNbuWriHrT oOEA8FiO4SVO5rGXyfT2geQwxmq funA7kQzu+MzcgWWVhcnM8 C8GnFaz4PUOgcAebSK8atRWiJTy sYm8ssHgipIwjKK3cFATgigaqHG XceT0rJYYjhSXdsRwhDC0g KLHhfhpik510MdKfUEW8FSThjBN dD6IbwZ7eVtDaHVFrVSFoA7RwsM DjAQxlP491SYntDjE6VRSc rqQoD4SeSJWaoHdwCiR3n3R8Mf8 FTM0VRVB7O5DzJqy1SYIhpFcgVZ 7xxRLgNPhcXz9mzQbczVmg HK1tIXVkclknHBLebJ4vYCLddEF boHkzHL2vPBKksusgu339TgSwLA G3VVWnsCOwO8XyiF6nPxHr NULbKTFbG8VtvQMbAMsuW455COz hOiY8XMZsmdRxH0KuXBCtnHsuUk S8e1G3Uy6LIPdblPM+PC90 ou84B1QyAvqhXbo0VOJkZSO2wBL 9cV4eMFViRFhkf6T0kLL5G9Hlbv Gnzy0jo7vbFTYbCLlsJ73v xOEjb5T8NHDnpJQ9EJGvaGinHjQ kjM86Arw+BECofIwkk6RwJxhsj6 dsl9hjmQq1ZiQfTGPssdCg fDdyLHG2m6TvRt11T65tAWcwTRP fRTEmSOJoNMYncGmwjj5gbC4tEm 8+SVWfdWN6vWI5tM4yVsUn JvL4FFgiM344ChEtqPVrSssls3h np6ennBr0FdGjFAYjovFtwNxdNV I6i6OmOi99H1EecTzxm6Hc Vem9wq46gDHww4F9yKH9G0QsWKQ rzfjjeCNesXqpJX6kPVTeimukJF RthT0bMRAuT5u4LgDnWbM4 PUjvM3VedvN3QFSbkGSlQVZayLO VgO2elysxw7dnmwsoYhOxOXFiGF p5SFs5MJKjaDpaTgIgNWN8 DlG3LDE7fJNsbF7etHkvklnmjE7 wOyc+QNp9c9bhgOOpTE0pxKI1KM 01SZ12gFRhl2C7bSJ7F2Hf RMTvenhtdjrskNM9HEOdEKVwgO1 1Yy6kxGpnTu9qIIFkSJN7VVRgtW FzY9KwfT1sBiPmFUEbYJKf E3InfTQzIRotN532LZomTpO4TUG rriGhO8PuAUKthFnjDhJ0c9M4Ku 5LHH36QV13TE65oJNin3M5 yUX0I5FeXFWrgnxorvpvpGK2WUT lIXPzdS07Ec3lvEmmNz2nIEFsSF N2BWIscERbO9ErwM9dNrVa ZSTuXZYuO6AyqJKmGOnkI837FEb jEmW6DZFlsvIxX4FpWTAemBleJu V1d7B6Yz2JFd87XH41ZZ47 ePJss9W7sBS4X6UyEWYjhkuiiax yuWF7EDAaNGPazQ75Yf3cyKitTo 0oLBIdGGD5EQJalKVmZ3Ty kZ6rQwZsZQRdCNUzE0MfyIDrKDz xS162BNjeNhW5VFCuugOgQ0GfTP TbaHmsDcI6i8P6Hf7TVKbf ull3D0ZwHqwraJF+VI48IJCbFZ7 5aAGnwBTmz8pmoKe3KgVvBLVzPH X4rZslSCvba9BuNJOtC03a bGF (more content not included)... [facility] Coding Summaryon 02-19-2023 Coding Summary HTMLBase 64 UtllfpncYCy7yJc+PGhlYWQ+PE1 IGWLsL80jaJNinN8yN3BQHEmSZe utZTNEDIjEPeWjeyUdCS2mlRZvN XJu IC8+VG8kQFEePjdmjPFxl9P4tPS 7B52xcf1dPNfzkGC9CRXoEtUrjd mwz2zfyCq1VNuoNpgcKpYn EWXxeO77RDN0lF74Fv34dXHzzBX ta2hvnTd8JmCiULYzFSH6pTncVE tqq4RlDHObK22sjWWyo5K7 XXTonWuiyHTzVkDcxEL2fF5xOVf dhqlvu6dgpkbtFzz5gf98fDIcv2 V7zRR0J4IefnG0OOAwfICy UtmntBLTcQ6dnpotz2dtwdogKmV jJRVtXSx7XRg3NYWdzSzkCxCmXM 64TFV4XWToriOgT2PmUJWz tAanFpB7q9Z9Gx6JQ0MXRlbfW2I NTUFSWTwvdGQ+XB84uq52M7UeNm qaAlg7YQXkUZR8qKR0iK5v FWYtQXdlx4C0fXA2P2SednVbif5 nh1mkAXPcJTamS51blCYro7A9SK CdoLS1LESfsOewNbNttP74 Oyc+JSYooGrcs7OhRjrxd4rwe1e wmDs4LtfvHFCwtdKncPfdNFT7f9 YeRb9aHWIqwTF8gKB8jG4j TsFuRvY4SOgoA961HgOsnDPuLuz rO46bS9GyqIB+AJUsXxl3FAVksI fyKR0vG3VxTIAbmskmtQSa ePfeAA3gKDHptnsnRKTmfT4tIPK eS2a2CiBhPoD2PWdzH1OrUYWbke wkYl41kK0bLpFgKnU5HXeu Q5XdthR2OWUukLHaTGvzLLE8P65 mt9Y3YHUsJPBlZLA2iDX8cU1jvX lnbjogbGVmdDsgdmVydGlj SAgjIKelP274WPWzbZpfWnIcEDy uZyBEYXRlOiAgMTIvMTMvMjAyMz wvdGQ+SLNnBSW8oRetUVKm wLWgIUknPl6qbIumdUodCH4xBRN rxrtbFLVbpL8zZVCvzMFylEhiEJ 4dPMYsobbtw355PgDuBJL3 ZPMlmDFzU6YsbO9iAnLwUKSrUJY tV1OwyRKcKNcvT572NYhjJqW8IB JzksLvF3GnNBXgtQjpEhO9 y0S9Wa4Yd5DxqblgV0RtaKQjSuW zWlylTRk2J7SuLtfubIH+PC90YW CzUR02JBc3ZHR4yXkbESxw BZVyC9YnyV6bBaTeBMIcDUHuGkd +PHRhYmxlIHdpZHRoPScxMDAlJy QdcGxvJQ3sHj4dDSPoKAAj iTjrdQQpLlFgv6qrHGLuACtsBJ9 kwFhzP0WexBH1RMFcs0a9Ji52F1 2fA2FisAC+JERomZK0yZP5 gK8jAiAmVpA4PXrvJ372ToZabVH qUcwbm7fet0zxaXp7OtH1BOWjvo NbgNrcKBT2s4KjTz97A95i IHdpZHRoPSIxNSUiIHZhbGlnbj0 gvR2yRm3+SURzbAY9fIF9bL1hOs DiTpD6ZUoyO212ZqGlaNZx Fahsw0lpx0aozKa9ZyNrSWXadtG xrHerESW6x2RbNx25O4QtrTsyp8 NhSwd0jn19vJWjn1F3iDB8 Q4SbIWNvurpldDQxqUoyEB0wIZT udylfYLPehA2jZCNnU2l5VfLdXe M5KAtqP0CimjN6ROAvpRXc AZDsiLOFkQ1curuuv9zifzanAvQ uIHYtRXh6IRs2CJHgrWxcRjMuGB X0MiR7LLD4aKAkgK4cuBnu kwwkvH8gXii+OPJ4sPMqtNDQHU9 lOjwvdGQ+XNQbGYB3jVqgBYugCB LshW8jXRYnD7g5KuJqSsO4 NGgaJ0ApomX8XJBybRDeTJEonFL SeK3thiupp7foocjaIxDnPPWjBX z1DNf6UXDivUjvHuWeKND4 HvS6GJX7wQRllP1tbVfgnfrazH1 wOyc+QfnqgBlbLGM8REn2U4RjJj r2AAOojDbiQP3hcYHvZBbz Xp7xfXsrnUtpGV3jBLCkbfhre73 0TtOnn1axBLCuxJQxXHrjXLP6J3 7wf3Q0TNXsYVKwQOS3eJG5 rY9asMgwwgyglGWrjIraxbLhrWv gBOznGDhkO943VSRzcVqsPaSyBQ s9M6JkNjy4GAMuqSsvCP6z pJKgPOceHp8gfLloeUhjSU7yMII gzmpfm597AsPmi4fbFARniWBuPS zrCDO9Y19ql4H6NWVvDVDb GAM2kHR9nU8nqBdibhlstGQlgLw rpoHflYslCRraALyuI046PCTlqI qdRzDyiZe0B9HeKsu2MOLq nRbzFM6wuTPmKJevAx6gmZkfzHv hYK1sTKSapowqw278TwFzq2kpXK CmhYXuXBnwSAK3B88xz0D7 SFXbSACuVZX6zWR2dD6bpAbapqi gbGVmdDsgdmVydGljYWwtYWxpZ2 46IHRvcDsnPlBhdGllbnQg RHqzOMt9K5NyRivdbIV+XF66FHZ dNP62zXVjsLUwe6cifCk1ZxBnFV PzBMZ1bHhvCEbhh6GfYZQr T22vdGYcz6U8WCRmzDckqIYkHtF sjJK9vY2lTZvuitbxe1fayasaLf gtn6xadw08cN46B80oQTvn JPIcMMZkOXKbDGMhfBuygf3mbC6 wIi8+RRZftYM0nUV3rM7yWLFrVf S5HPxxZ969AkOwyGErGpdk t3bxk6jmsVe2KpJ8VGGwumUdgNo nFAP0d8YuTr07B82qUCovKWToUJ GyWBOgTFZisIwpia5qnB2w Ii8+NKTtcFE3uMX0xC5cXfNpDeM 0MDerX424TxKrnFDjHvrlP16aP0 JvdXA+DLNlJbc5TGAykJdf MT9urSUeUDktZj9lWHS1VmFcIrR hVJddZ8HjYHSyrgffihcpqIW3HQ RzBCThrW32Kt1ayEzaEODc vANIpG2nbkvls2govnjjDyWgDZK vIFx4MUs7UBXqmGuzEpEhPEE1Eq E3EYY6jIIqqU2lbNtsvdew sM3vM9AyTOUgiumyCv78bP4kCmW iAtV6DJqhLux+TVVMTEVOUywgUk VPNVIINAMAFZwLBsC5W2Gw Kmj6ZTMvyPrlBZ6keATzMGayCf6 icSffzKpuMX7zHBGlnhmrDJCxkX 5sZFRpyTHsgKohBP6wUBJj wslur231BlMwTKZ5JEUbnMXiZ6A zhP1iWbSpJCXyBTTvX2BaqWWkYX rrJ150CGtjBqG7HHCwbyJf C5SsWVWlpEfmChJ4u4A9Qn4kII7 fRr6lUXz5OW78FL34nAJyn9Y1uS H4O6AyKIBjclkzebrciJK9 GPHmVEBlwD80wWTaKPmyNc8yj9Z 2w989FSGqVRBwqQ54Wt2jcGmvQA IoxLRMyB9mgnvuw5xfedul RmLkGEGrVYy8PPg2OMJozZtrIqY hHGM3LmB2OAN2fMUrnU9etYtswk tpwQ1bHny+MzcgWWVhcnM8 K8VfJrl6DBBefRhvGO5scTYfGLt pYr3glPvbmWskRC3uPUFgchivHI CxyB8lXUGnvBGmpOuwYG1h ZUIfopwfg363WwIvCCB2ZOHbxNK rZ9EknJ4oLgVmPXOoYFDrA3VvfI XkJWyhX827ABepKqB2SNAt aqPbL6KzXWPjdCnzOjR8h1T9Fs4 THT2XBFK1J3SmMot8SXUhgVhgER 3uxTBwXEyfEh3exWaxsJyp GS8lENAglzbrSPJdgA4qBAWkuGB rvCuoPM4oKNOtbgpyp940OaIwOU P6EDUevYUaA1QyoG0jFmIy XHNoPZIqA2QadWDfTLwfP392GAm rCsK2TFQlzsSnB2PcAMJqbJlsNt J5p0B5Rf8QDPA6jkZyymyh X4B6mNU9eCQehUredGI+RL30gt0 0E2OqFjleAre9BEDvCRZ0fBB2sF 3xVCEiHNdbz9Z5tWH3L8Dz yrLnbp8am6txMJJrPQjuM79gaVB lt5M3GNMnxHH0PLSvsPqrTvDyrO 93Oyc+GZOspHkds0KgOdfm e5znb3ootAt2DxEhVVCoudYvdNg zWKJ7m6WqMj78W92uPAidNBEnSW MmOEMvYIQhkHcyzz9avY8y Ii8+CLBksBA2iCJ2eT4mYdXcOqH 3GKppI992XoAzzADdYtuuk9lqw7 elbEm0MoDiBLRnnzDrfSzr LBS6x2FwYn54O4OjpZuvm2SyVxb 0jw69jJQfo8O8nTZ9R9XnSXJtdd gniLYcpFzzGK6jUWXrkpla GLFyeF8qYVNkE4o6ApXjOnA1NPb mV8LkyqE4FXVsrDXeWAYdyWSMiC 3xqfnen5qjdrybQoQnVBZh GEc5LOc1UZMqnFzfIuDaVGE2OvG 1LBY9yYYduT7ptVwgryikzZ6pQu c+EKg4u3nybPIsOT8zlMF2 DS09NJ21cIMlo1R6hYB1Y2AiKWW pcrqftlhglOQ6ENMxCPEwlI04Ko 4ldVowEq2xEVPiDOL3IGFi qSEnK7NgzP5eKcEgZUDaMTGzK6J jlWLeHQexE146BRqbGkK9WQUwbj JaJ6NqEEEjgRatFnN8v1K9 Xp2MSO20EO37ZT33sEUeo4H9iOI 0C2ViTXPjegeqzsehqLR4FEAwBZ CbmN42Jm1stQcjDn8cBYCy ELB9YAQbjWWqY4YlpK6iFfJzMZO yXUZgX7PvvLPbTPomD290OZdiHo Y0BLZxflLpW6BgULYbjEgl JaM2y9Y0Wp8CKp89VY06OE11wDQ cr1F6fNY0L6RvRTNuwcbdatecyZ U0ISBaWOWcmN19Dg0ezVph An9iZCQuPTV5ZVUkkUUsY4VluY4 nZlXeEFJwNYIcE6KpmPVoJFelC3 49YQeaNwA3CDMpaoXaJ7Ru ZLSoxKefQnK5d4E6Td0EQFvrjlf 3J6DhHwkgzEA+CX01QSXlGR25gG EsqKWun1iqpDw7BbNlJTSj IHN (more content not included)... Normal [facility] ED Clinical Summaryon 2022 ED Clinical Summary [facility] ? Urgent Care [address] [place], [place] [id number] Clinical Summary PERSON INFORMATION Name: MICHAEL RAMON Age: 37 Years Sex: FEMALE : 1985 MRN: Acct#: Visit Reason: Medical screening exam; [facility] F/U - RIGHT FOOT INJURY Arrival: 02/19/2023 12:55:41 Discharge: 02/19/2023 13:43:00 LOS: 000 00:48 Check In: 02/19/2023 12:55:41 Checkout: 02/19/2023 13:43:00 Address: [address] [place] [id number] PCP: Thu Linda DO PROVIDER INFORMATION Provider Role Assigned Unassigned [...] verbalizes understanding of instructions given Comment: Normal [facility] ED Patient Summaryon 023 ED Patient Summary [facility] ? Urgent Care [address] [place] [address] PATIENT DISCHARGE INSTRUCTIONS Patient Information Name: MICHAEL RAMON Age: 37 Years Date of : 1985 Reason For Visit: Medical screening exam; [facility] F/U - RIGHT FOOT INJURY Arrival Time: 02/19/2023 12:55:41 Primary Care Physician: Thu Linda DO Attending Physician: Mati Bell PA-C Comment: Patient Education With: Address: When: Return to this practice Comments: Apr 24 at NOON Medication Information: The exam and treatment you received today in the [facility] Emergency Department were for an urgent problem and are not intended as complete care. It is important for you to follow up with a doctor, nurse practitioner, or physician?s assistant professor surgical technology for ongoing care. If your symptoms become [...] so we can reach you if necessary. [facility] Emergency Department has provided you with a complete list of medications post discharge. Please inform your molecular biology professor/provider of your visit and for further instruction [...] (S90.31XA) Hallux rigidus (M20.20) Medical screening exam ([id number]) If you received any narcotics, sedation, or [...] documents Reason for Visit: Medical Screening Exam. [facility] F/U. Allergies: Substance Reaction Symptoms Type [...] how to (more content not included)... Normal [facility] Urgent Care Note- Provideron 02-19-2023 Urgent Care Note- Provider Patient: MICHAEL RAMON Age: 37 years Sex: FEMALE : 1985 Associated Diagnoses: Contusion of right foot; Hallux rigidus Author: Mati Bell PA-C Basic Information Additional information: Chief Complaint from Nursing Triage Note : Chief Complaint 02/19/2023 13:13 EST Chief Complaint Medical Screening Exam. [facility] F/U. . History of Present Illness OCCUPATIONAL HEALTH FOLLOW-UP Date of injury: 08/26/2019 Claim #: [id number] Employer: [employer] Mechanism of Injury: She was moving boxes of [employer] when one fell onto the top of her right foot. 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 On 08/26/19 she was moving boxes of [employer] when a box fell off of the cart and landed on the top of her right foot. She was initially on light duty per [employer]'s telehealth visit. When she was not getting [...] History Medical history: Resolved Lower back pain ([id number]): Resolved.. Surgical history: Lumbar epidural steroid injection ([id number]) on (more content not included)... Normal [facility] Urgent Care Recordon 023 Urgent Care Record [facility] ? Urgent Care [address], [place] [id number] PATIENT DISCHARGE INSTRUCTIONS Patient Information Name: MICHAEL RAMON Age: 37 Years Date of : 1985 Reason For Visit: Medical screening exam; [facility] F/U - RIGHT FOOT INJURY Arrival Time: 02/19/2023 12:55:41 Primary Care Physician: Thu Linda DO Attending Physician: Mati Bell PA-C Comment: Visit Diagnosis: Diagnoses This Visit Contusion of right foot (S90.31XA) Hallux rigidus (M20.20) Medical screening exam ([id number]) If you received any narcotics, sedation, or [...] and treatment you received today in the [facility] Care were for an urgent problem and are not intended as complete care. It is important for you to follow up with a doctor, nurse practitioner, or physician?s assistant professor surgical technology for ongoing care. If your symptoms become [...] so we can reach you if necessary. [facility] [place] [facility] Department has provided you with a complete list of medications post discharge. Please inform your molecular biology professor/provider of your visit and for further instruction [...] NO Strep Throat (more content not included)... [facility] Coding Summaryon 01-28-2023 Coding Summary HTMLBase 64 QidluhxdBVb3uBx+PGhlYWQ+PE1 SKPSdQ24ylGVmoP0hC7NILMvLGn xdUVDWQFeIGlCuzfEaMF3kvUPcO XJu IC8+AF6jTZYhTfcalCNnr6Q2fTV 6F92qbm8oYVnvxUA6QYCzKpWzvf jug4pezPz3ODyfLhxrDeSp NPEcjE00VEZ1qG32Jv59wDGliSE oh5pfwPb0GhVuTAEkWAI3cPygUT grw2XdHKLtQ08pwAOsu1K0 QVUwbCnwdRAwRaLwnUM4mF3cBXh blbouq2wqztbxCss5bm06gLQdv7 X1eYA4Y2BgseY3GZAqeLVz YloteUNIjX5bedxyd9hmzigkXyT xSVDqKOi0ZOo5MSAmeLqjGcJwFQ 74CXO8TZTxuxGvC1JuMLXr jWtbMmH9h1A0Mm0EL1UURcbbY3Q NTUFSWTwvdGQ+SP85fe11H0YfNc yoIoh9XRMbQMG1uAZ3qL8u CTJeZZnqy0B4rBX5Y2SazdHpdd8 xe8dqIWNxHNwkB31aeDQsa3A4DF CwoUS1CXHwaSjpKhNecA62 Oyc+TFLffIbcq8QsIvrls9qhh0l bjDg7WvjyMQUxiaDhnOcrFED2j0 YxLe7aJYKzqXE8qAX7dS4l SlWjRkA1MAmaP058KtRxbETdPyh gY73aP7LfwDY+LGZtSqx9MORxuB hvXH6wS7QyIKMrlwxefUGp zKlhFF2nQKRtfdssDBZmuN4eBFD hW9v5UxGuNcO3SNxtC5OoTQCsqq kbAz03hT3uYfNaUgT8KQgk Y5QkzzV6CCReaJHuQJgsRGG9Z40 yz9Z5BNRtGWTkSBM6mKI1vT9mlW lnbjogbGVmdDsgdmVydGlj GEfzYApxW703KZUanJlrHhPoPCz uZyBEYXRlOiAgMTEvMjEvMjAyMz wvdGQ+MLOnOTA3vYqsKQHe iJAiSLssTi1soImcyNztTA7uCMP gkbidCGJjrS2hBKViyXPcnTcyAN 2qBOOhvytce155YdThOVA2 CHHpaDVaP8MufE9mJxNmKAOtKSP lD8TxgMFyTEpmJ965RFqtCzU5NG GfpqLaN6ZvJWDkjJomDeI8 t3A7Gz3Zn6DuaqbfA5IzaRKoFfJ lLisdRCa5B0LcIkqclXD+PC90YW HsCD41VRr8FOT7aVziLIhs GPWoX1SgqK5eKtSeLGLkTZSxXpm +PHRhYmxlIHdpZHRoPScxMDAlJy ZhdXduAT3rRa1wFZRnPPTp tGukwLPsMzUuw2taCTPrBRklKV0 gxAinX3SivIN8OBSbj3z0Rh54E6 0vH9NsjTL+DMOqoHV5aJE2 jZ0hPzNyTiT3WBdcA052FcFmgYH cHvzzo4wzl6fzlNv4UbK5AZVbim BaaRucYLY6a9OsFq79N06y IHdpZHRoPSIxNSUiIHZhbGlnbj0 zpO4yKe9+SVUbjRM0rXA0bF4mLj MmAdX9EYrkH963EbYbmLZg Xfznx0qwk2huaCm7VpYbUJDkucX jxNvuNHH5f6YgOl78J6VluWkvs6 OcWlu9jz30kHFzs5L7cFL4 S8QtQIXnkcauvPEitCutXC2jCIF dlyuvWBWqrQ8sWFBnM0h9WkTqKf F1ZNexC8FdlsB0EHVfeVQf IGDbeGWOpM8arfqby5yyzmcqMxA pSHEkCHv1DSz3CTMuoYrdPxUyAQ D3MzT2XSJ6mUJyzQ3frWse vcldwM6nTsh+XPA2wWDvuMLZCF5 lOjwvdGQ+HSHfFXX0mVtrKUrnOS MtsU8mERMnE5d6OzPzJhP7 YWxtL4YookA7BBUwxFTkMHCyoVU JkE7rxizos0jbnpuvXvLsSZDzDD s5ZSd6HZIijOceOaVdFBV7 JuW9IGG0dNSksR2ltTedvxkrkJ7 wOyc+YdzygVoeGLV0FCo4X5VrXi w0JPDyjHixML9cxEBoPEpd Sd2cnLjtaFcmCY9aBZVfhtnnn37 5OjLdn1qlOGNjsIUpSGpbTRI0K1 0rm0S9GRMwPOMuRZC6zOJ6 hD2gtEcasxdyhNHflOufwyVhkZa iUGwbLFvnN019WQEnxUcbGgXaNL i8U3HcPmt9JJVeyEofKZ9r nSUyYZfmSy4jsCckrTubPU6dPLO wilrfe482LlVzu2osMGVqzLVgBA rcRQO0L51iu1R3ONGcNICh BPY3mEP3hO0wiBzsgtxpqSHmwXm fxbRnaLlaOEplJMxrX092AZQblE tfBrGseVa6M6JxCsc2XFIo zGnoGD7iiEMzJXkfIs7fdAgzeQn sYS2vWQGeokizd174FuUms6ybKQ UrtJUuVAxxGBA5T88qz2D1 KHEcSVWoWUT0nYN9jE0gaAopfqs gbGVmdDsgdmVydGljYWwtYWxpZ2 46IHRvcDsnPlBhdGllbnQg REwfRSi0X3HmDwwdkRD+DT94IBX lIN95nGZdpOLdg1tauQr8HmEiLZ MiRKL4sBwgFUoed4EeHLPl G00hlRTtl4A5JABewKjxwWXlTkB ifVY0uW5kRErjunlio3oxtuigXq kqc4ysos62fW15P72bBMlz ZPFpUHFuIRDrZZLatOanal6wkI6 wIi8+GARunWD2fLQ2vJ8vYDNeLp T5FTggU602RyFvmCFmDpjh y7ezq5gbeTz3VyK6ZZVqhsIuyIl hYML2g7PwAk57K50vYRjyNMLzDV NyPGTvTTYicAhwww1fwY2h Ii8+IOGkoGJ6jOZ6pS0nIwPzOgT 5OXqsK665TiObwBZbSrnkD10sO9 JvdXA+ESXnQjc8IGVneRfs SF9tiIRjZZztIe3qBKN0FgWyOhQ jTFwgL6CbHOSzmnmobhlhkZF7EM LuYRQieY27Ds7yuZioDIIp uEOYtO5nnmmug2onftauWoHgXMC yIFu8TQh7OGMezMrdUgKtRJD4Ji H5VSR3tNTzcP7wzSoxizbz qQ8jT5OcTJHvixogAe76tC9lIxG zMjT7SSreMna+TVVMTEVOUywgUk RSJGCVXYVMTWeMEhT5W7Jr Dbk8BVZwfXbiEO4kwQQqDUjqPi2 muNtmeXgfPT2aWDWwqjajRWEyyB 7zBKVphEXmmItqNW3bPRTr kfctp763JgZaZBY7AMDabMMmY7N phQ0rHoIjRAYcRQWiE5ZooZCvOX drS398LAdaZpM9XJSstgXm J2WuXTGhiNkfBwB0t1J3Dt3aUH8 gDs5sXMq6SO97OO38zAMuv7O9uK N2P2PuVTLslmftsfwfcQU4 KUZlFYSjkH41tHHwESjaJq7po6Z 7l520FWBsUSLaoK35Fr2ijSyiWC BomEEFiA1ymwrfe7focjat XoCsSBFxVAj7PTz5DHIxgKraGzB dYRL0XbI7UKA5fBTotE0hzEwwid pkpD6tSyt+MzcgWWVhcnM8 J8PvAut8AFFajCpxDC1mkUZxUCe zXz8ojPjgiUzrKE2fKPZmwyicWQ WeaO0vWHZxtPHzmYdyKF9b PHRwrllpi310DkXvYPA4CTJsfVG sH0HoxU1eJzAuVRAqBRJmW2HmtQ BvQVwaP096OMxkTpD7KDZo clQfZ7SlLLBggCzuOjE2h9Y4Ve0 GOD0XBMB1L7VyHjd4PCHxeZicYC 8erFLsTEotSj0caKiypYup CV4kFQDxrmvrIVIcoE5kFWAohGL yyKfqLF2qIKAqqnpoi503RvGmVR W8JUJaqMWnX4EevX0cGmKt RJDnKDIyS5FjiMEtIXfbQ689KQl sGvF4LZCxzfLkF5YcSFTitXgqEg U6d2R9Km1TWMepuBU+PC90 ne35P5IqIiwjDnl7UGTnTPB2hOT 6tN7aPBSoLIxnb3Y5qCS5G6Wvmp Itya1ad0ejPAWbZBvdX40m gYZhe4I4LGOdnRR3SRMllWweAiJ qsH80Lyg+HGXjdRqbj7NjNrser3 kok7lytLa5WnYyQQUwssMv fSznNVN0q0YpBi75E50lOJmrHJS cLDKeASPaXDPqsOlwmi9vaK8qCf 8+COGojFV9wHZ3eG6qAvLx NkA7JRkkU888CvZdyNAqWmsby3x oa2onyKh6PpIsQLTvziHgaDcdTN Q4g2JeCz33G3WesWgwy3Hg Rlq1pp86xEEqg6K9kFU5N8VlFBC ynagoeEZlvHlrMN2bHGRytvrxTT IwuS0yXTVcZ7i6DiKfMaI6 TRdrP4AuyzN8AWYsiUEyKWQzcVH RrF4lspeio2zpxnowPbEhKKLrRQ p5TKa3UIQqcRypBxZhWTM5 CqI2NQE3iPOwnV5enLtoujlwwW7 wOyc+KLp0i2cvcXEkQN6hsBM6AG 88IJ71hKIkx6Q6mEU0S0Aj YQFgydztkqwckLZ0JBShRGCjdT8 3Cg3heZbiEy7gANLkGEX1MGWeqK QvV8HqbW6dYuRgWYQcKLWs X8KwmWPxQHzkM620USfcTiP7FAO ytbOdX5PhALUbqNdqQqO7j0Z4Xa 6NIQ78JV28CV77hFRap1X0 uXG5S1BjEVNrsflcbjywxMK9XLP iASGioF12Eg4ziOiqVi6uFOQqCO M1KUBbsWJqM0LmmH1uKgOb UTNtLBKpP9HviUKiATrjE220AUx yUjR0KRArceIsF8QfYKVlhMgnSj K0l8Y2Xr8RZz87WQ84JD17 lDDux0I8rJX8D0CrTGFknlvzovy ryMT4WLEdDQXelQ44Et4uiKseHv 6iKOYdQLA7HJOuoEWfM8Ot aG1sZiDpSFPvUFWvW6AgtQBwWIo hH341CEczEqU3LIWeflOcC0BzUO RxlIirOnE4t9K9Oi5GACsv nlr7N8KfQzzblJI+KB64DAWlCD3 8yDNtzKXoh1mwoSd2TcZyOUFlIR K8uErxHIvbc7PzCADcC14o bGF (more content not included)... [facility] Coding Summary HTMLBase 64 ZjdafmvfWHu2jId+PGhlYWQ+PE1 JWHFtT21fgQGuuN0aM4WEOMtRNn dwFGWRBTwJJsHfehVuDB7poCDfV XJu IC8+MJ5iHSYfJtcrnHYej0E4pCZ 3C29kbf0aWCaqgSE3JPShIvFpgc crb2wwoNo7CVcoZhfzQgBk YRPjkJ78JTI0fI80Su38tNCtoFJ qm8ioiXv1CpDlFWOsUWX7nEfeOV gjw7SbNJEaX47qrZGir5M6 UDCznCvhpTBrRuEuyHZ5uI5cGZl bfqsmv5pqofwjMzy8wq63mNPcs6 L2mXT9V8TcijI9WXYsqQDk GuzsvFNGkP4gezbrq7eevkryVwW bWJTsRFr3QAd1RICacJteVuWvWW 01MHM9EENbyxKsF8XvBHDq oYhzHyJ1h4K4Yy1CO9KWDbphJ2P NTUFSWTwvdGQ+QW66dc77A9EnIz oxYnx2RWPcGDA6aRU3kU0t FWYqXRdnj2O8kZZ1E6SwbqImfx9 zr0vbJYOsZPtcG18koUVlh0K2TD DdwSS9SQRhxBbtTyFabC19 Oyc+SPVhtKmfb9PdDegnq7uaf6o swVt5YpgyPCHbhbQiaCizXYO0t1 BwIc1aQZXerQW8vVX4lO9n JhChNgV2WRfwU135LiNtaQCrAne cA38rC4VtnMD+ZQKyXlb3WSKltH okPR8gZ0UiLBKvjnkrvZAh uIgqKK5gOMKcihutCFXilU8vCQH mJ8g9ZvXzYpE8LVdiH6BfPSElqu xqJf06eB1mGrIqJwX0ZMvw W5KjnxE2LBYdcCDbRGclWEW4N50 hn9Y9VQUpVPBpJEM1lMG2lJ4szB lnbjogbGVmdDsgdmVydGlj MQjfJVhhA864RJWwmUsqNyDtRIl uZyBEYXRlOiAgMTEvMjEvMjAyMz wvdGQ+NLXoGYW6gMktCUVw xDZfAHtfVz4scPflcEyvSD4qERD qavlaDICwkJ0fIWEmaYWufXkaFF 5kZWLubuwgf512NjCfKJQ6 TIBnhLUwS9VqdA0qAwZaKNEaRBV oC9AbyBPbBCujS315OEjjBvQ8RK UescSlM7KxHADiuWqzOrR1 a3I5Iy8He8TxchuhP7YanGPdOkO nLmzhLBk7G0KvGfqpvNH+PC90YW DyLQ88HPd6FMM4fEngFCii OUTqM2RfxS4zYnXnPOKwHJAbWuh +PHRhYmxlIHdpZHRoPScxMDAlJy IoeYtlHQ5mUd2kDGXzIXIl dHybpFXyKhSzk1tjVXCxNPzjPB9 fkMqyH4LqbAR1XENcz5e0Di01L6 7cF5YduIO+MSZdhMN2sUR4 pG7sJqQfCiB0ZRbmZ157MdHkiIA uUnkzh5kmb5xvyZi2DaK2EODwwb PsgMkdJPE4u9PeGh19D00b IHdpZHRoPSIxNSUiIHZhbGlnbj0 hxR9cCw4+LEVirOR0jSX8mX4sJv YcHiY8TRldN378AqAleQKa Pljta3vlp3hedHm3ZmMhBGOdycA dhLetONA0d0TuDo89Q1VdsUzzo8 PsCjx4ch41rMTcv5K0tME7 E0DbVRMzfcmwbHQkhLucHP3lETD gszzqEDJclB0pSXYxI2m2IvOeEw Q7SZsiV2FerpB8ACIlxBFn JSBrbTRJmS5lpscab7yzoxtoZlV pUPHvBGy8TTx3XRBmtLgoZrEsGD N6TpZ4GBK3oXMdcA4ctYee ikuulC8xWcp+AYN1aNAhmJVVTU2 lOjwvdGQ+NZWzCNV1iXbkIWhiPC DvxU0sPKOeS3e7UmDdQuR0 CPlyU6OffoB7MRIckLJzPYUbdSV OaV7nisuta5ymaocwQyWiJNGdLS o5IQk3CHPoeAweNqMhFIL1 NtO7BSF0tZTnqN2oiVomuwxlnF6 wOyc+LhndtBljBRT6GVv7A2VbAh d3YYYgmKduJF1mcGFzEIce Fa1njRtshZpnVT2eNLNkuyizj28 2ZaHoe9vlWNTozJEgYOvsQGJ3O4 3pj3J2KQYhGUSjGZE9cKH6 zI4fpKpxbujvtIUogHtpzrNtiMe zOPcoTIomL468OOIzqOvnHjQtPQ g4N9YaVyb2OVDquNqcIY2q gMStQUgfBh0wcOzlzSwbKB8uCQT vkwiif526HfSbp9ygXVRzdMLoUI zlJXP1G43hp2B9MTGjEBMs MVQ6jJP3yT5xzZlxdfrzuMCizAa zioMsaWtoVTeyLZjyI963RNCtxS fbKoXnmLd1V7GjXki6PHEd wYlsLR1rxTUdNRusXm6znMrriIo gIV9hGMZperobu520LyJxo9gqLQ VkbELcVJtcNDG6W78ec1B8 OEOvDOWpOTU5gSZ0tA6rqJdgjyy gbGVmdDsgdmVydGljYWwtYWxpZ2 46IHRvcDsnPlBhdGllbnQg FWfcEFq9Y2OnZkbmrYK+GO50VNC qHE08fHJclKNph3yqoPk0DbWaQD QkNTN7pIwfLEgzl3SxCRMd M06vuPGoa7A6GBRvdTxftJFiFiG iiQF9lX8fLJauhwnrn9bdxksmHm tkf5wizm45gO94G47mEAxa RMYiSOMlGMQaPBPouOhefn8liD6 wIi8+KOKxgQR8sVQ1dS9uBSQfJh V7QHjbN414LrVfgDXzCyil t2cje4vflWg4AgB8FZVzaaNtxVh rKJR8d5MpTf95T28vPIqfJUAwHC ZaUUGpMLVwuBztqs1svD3u Ii8+LXWvlAL7rYD8sB7vKbOlOzU 9YHjkX004VpUytUGrKidoZ93aN7 JvdXA+HGBxMrv2QGEvlUhk FR0tgFGtDVapXr6uYWA7XrMiCmS sWUgsX9AkYQOgxekcgsqhyUA7JC KbJZItjS62Cj8rcOrrGLOy uLIDvL3umbyif5eybhrwDxIrTGG rIEc9OLc3OQQxtEbmYtOcYIG9Iq M2GWV2bMWegO7zbJrvfpbs pI1dJ7QpYHGnvmfbRw52xR1aWlT gOmR0FFltHtu+TVVMTEVOUywgUk VHBLDANZKLCFoHZbJ0T7Qq Whq5OKLbhOdzXU7fzZQsJGpcOt1 olYouuUjwQK0bAVQyhchzWAPltJ 1vIQRunMAhmUsrSV9cSCMd fcjia974FtIiNOR4MADqaJQqQ4L ziW1rRcViGURnYHIrG3PuvBXxEW qkQ537TPdtDdD1FBNiazVp D1SeDAWmbFqvUwI3e2E5Cq3tSW4 aEp3dDJl9PJ92QX07mTTrn7F1bH I3H4SkSXTrgxllauonrCF2 VZOgRSPgaW81rZGyDRgiFd9hi2W 4z094ITXtMHLfcL49Kc2vxXjdKN AfsWBCmC9gelata7kdqlkk YoZvFBWnBAl7KFp5FEDscJnyWbP mEHH9PrS1OJO5hOYmlX5slWfphi gtbF6oZtd+MzcgWWVhcnM8 P8SxJth3MJKscTosTS5vqNYrEHi gNn4qcWmagYzvKW9hOIOfygzaTU DnsA6oIACgyCApiUbkDB3h WFXllytdc514TxKuJJB7IUIptWB lA6KvnW5dEaPyVOToNBCkP3BgrV LwWBuaY164VThdYnU4CVRn bmGvB3NbBSZvnIybHaW0g3A9Lh4 IPO5LKDX3Z0RnNay4XCRqsNooUZ 5vwYPaGGusUc9pjKczvPco KO1iHUEpnsnoFDUryV6zVEQfhPP wyZltDK3wZCLsfcsgq487ZvPqLY A1BRHxpYGyI8SwbE2sGoJe IHJzZCPsG9LstLIwWFsvF900HBb zCbY4SRCiexXcP0EqPFYmnAndKl K7g5H0Ee0UIKkjB4SdR1Mg eTwvdGQ+LE54rh53Z6McVwsuOtk 6TNRkELB4rUC3gW3hMVOmRLesb5 Z6gIE2Y4NrsdAioo0hh6pj UDLxPFowP07zfLVrq1J4IQCxaWL 4NNWibQmkBuAjwU80Auw+PGNvbG jnl4ZfNuwrs6wcx1xrzPs0 NiHcRTRpccLmyJjaHMV1l2BrNu6 0V19vJNtjUAQdLIBvFAFzCWZfmT dlip3klP9nIm1+PGNvbCB3 hMT8aL6yNhVxVkW2AZbcC584KuU izUOdYqqop5cnr0iwlTu8AaVlBX XjzgKjuSahYBP5c4GwCq92 X8HxcBehw9RjGhp4vb11qCRtc4S 8hAX2N7QfDANpbaqxuEDljXsbWS 0nKLSvgkbrYWSltB8uDZCq C4h1YwWjLtJ7KAhoF1NzjwB9ZGQ vyNPpZTNurHRSzN6ezodjs6ndse daSuRpNMNxCNh1GRd5FVFa nDjoFfUfTCA0TdV1OTK9cTBdvA3 djRbqeuyniK4uJwm+DGw6n8wxgP GjMQ4ctGE1TD04UY56fKIa o7Y8gJI2N2EbFYLuptwfkvouiVK 7SBSfVGQpkK07Id9gvJnxIf0eZU ZaQRC7UPFbnTJyK0AbcB9g SxLcAIUeSFBrF3SulRHqGWcjC57 7LAkaPmO7WVHqhfMtP3QzZUHfvD bzBgS3n8B8Hp4BYL83MM57 VO55bJZfg2E2jNP9A5GlVNNpolo qyhagqRJ3JCEaLFLpgI46Sf8vtN rnYd0zLKGyHCE0UBGvfRCv B5TdgN9jWxWgEQPdASMmV8WcaSH aCPhvX257AZtmTfF4PSSgnzEzN3 ByOVHdvAtcSmZ8f9V1Gp2T Vh56QA78II87jUUtz2N3nRS0C7Q bKVWenhcfpwvspLI3AXBbRTNduV 60Wp8zwMfbLu7hTEZlOID0 EGCpxUWoZ4RpfN1cHjDeCBIsTVB kH4PssHQcMDtjE534IMkzZgS0RA TeesHxH8QsZESuhJibDtO2 z7D5Xq9SHMvlpxd7R6EvUlblgRE +QY26WDXvUH18wLRyyUVns7zyyV e1WgYjZZUuUZQ5pNwfCGhu b3J (more content not included)... [facility] Consent Formson 01-27-2023 Consent Forms [id number][email or web address] 03-29-2022 Progress Note - Provider [id number][facility] 01-24-2023 Coding Summary HTMLBase 64 XznmssdbPIx1fPh+PGhlYWQ+PE1 QOKHoS69mgLBodZ8nN4WAAJwZEx kcJJSPYMuGNtSbfuSiWS7ddFRcG XJu IC8+XY4eZTQzKmoypVAtx7N5oMJ 7E72bkw5dBXfoeWQ4TDVrGyOgti zlh2xrmPl5OCvkLlshVxLn KJRmjQ29BBQ4oL47Ux03gEGybWE ov1innPl4NxStPAUfBCZ6zWwzYO vpk6JkSDJgE33hqXKps9O8 KCPyhGrklZVyXdPhfJU7fN0xMNg upkbly6xkmgsyQny0tu54mDVrb2 X4gMJ4G9SwinZ0ABSshDFp WtvzdFNEqY3utzbsc3nylyjeUkG oKUJsUIb8PQi8WRPjpGxbBvHhGV 34SGC1HSGqyeXnR9AnWHYw iSusAdC5c6H4Tr5TX3YGKapwH8M NTUFSWTwvdGQ+HR04dd13N7WnSn usYgi4RDAjPTV6wMF7sZ4t YJDjYJvxd2W7bBR0S3RnrdIper1 zc8yaHOVpELcpJ29dtBHng6G9VR JdySA5UBOnqNhtKxByyR21 Oyc+VMQgzKuvm7GuAogwc0osq6q mdBg6VmfrBDOsdxPoyNboAIF9m1 FmUu4iAFRzsSW7yER7sM9s CxAcEkR5GMxeV211QpZvjNUwZlb tC66mT0MwxLB+IOKoLan8AEYxlG idUG4vS7OvAZTtufyhgYYy pMchRF9eHBVewadvEOJueJ7aQTQ fB6m3LhRtYhR9CIopW8PaRLCgsm dxWc97zC0wDxMjFuN3KJsz U6McklC2IEAblBUlNHmdZHJ8U78 aw9J5GRKuZCJhMDU0yGF1mZ5vjT lnbjogbGVmdDsgdmVydGlj UMjnJAjbP445BQHkbCzgNpHeRYy uZyBEYXRlOiAgMTEvMTcvMjAyMz wvdGQ+QUHbRGC1uRpuEOEf kMEvYKqeYa1vvSkrcXouVP0uIAE lngezUAKgkM2hDZQuzRUlgNdxPF 0gCYRtpwjok403CmSjNRK9 IPSgxOExR8YcaQ7bLxDaDAChLFD gG4TecCNxQVieB619HNozVkV7QV AnwoRlU8GdHNSsyUhoHfT5 q2Q2Wn1Bj7LzilciT8WelKBsVxA gVwzqOJf1H0GeWqywzGJ+PC90YW NzJC50IRy7BFE8hNrcZDnn OMIaB2KgzJ6nJyZaUMKpQKYmShi +PHRhYmxlIHdpZHRoPScxMDAlJy EjvXecIW6rXg6zKRHzVUCe pLbcqJVlXlSjp2qdEZMbLPubTA6 ekBheQ7UliDB5EBBxs3j2Iv64O3 8sC1JzfDX+UPVhpXL1aOO6 nA5nHuAsSxB2YRieB831GzXmeHI uDjoou0iyc5sjrYw3WeQ8MBJyup CwjPjyHPV2m3GnDa48Z05k IHdpZHRoPSIxNSUiIHZhbGlnbj0 cqX7aBz8+MITrmOH7nFS0dS6tLi KbGtH0QDwlG212BmAscTAg Sqpns8htw1gnoEl6RpMpVGAogiE azGqrHLN6b1UiWk04E7HsgFlwn2 JoVea8vc15fEEdv2J3pKG7 X9YeGZWlywvlmGMkcRwlQR6hOJS nouezEZJhhF2uFWJmA7p2ScBdIy U7ZMlqX6TeduH7DEXzbUTe GAIjmOXJlZ0zpoqdj1jpklasOiB yJURbBCz2RDu7MVHiyRwaCvFdVU L9SjR3RYS3aNBliN1jfBlr rrwwjJ4gWtj+NWD0pEHthXPPVK7 lOjwvdGQ+ETEfLDK5vMzhPQbxFO UvrX8qKFOrQ5p8CrObSjB8 UOtwA4MuvrK7TYRehZUrTEFiqQW TdE1gdwqjf6xiibvgAcNsIXKaBE y5DKe5ICIdqBztMjUfSOC2 NoJ0OQG3yDNeaB6fdFhlfgzouK7 wOyc+DlldoFmjISC9NXs3K0OpSw g1DJOukKteZJ0piDTaVVir Nf0rcVejwJqiQL6fCENhhkshg30 2LmJxb2zaXRRdqCSgYYjeIYW3A1 8jt1S8LANcIHOdPHN4zQZ7 yR9maJxfjntnoXZxaCqzlsFipNz pYBtbXUbnS666COWngBjpPqAwIM r9J9SsGdx0GWZqxGueUI7g sJMsTSsiNc5qeNxalJdxBF2bDWO yctxzr241CwJad6iuKFIxjVLkZN wtQZW2T44fa8B2DZQrTNEm AWY7sQS0uJ2ykEvegdmdkVOzjTd yvkBuyEedXEtqIOxtH473ZKDzdX fsRhOscKy9Z0QcVwb8JRXy cShjJA1pgTUoITynXr0bcTexyYw gEV2vEAEifwcpm866MpZph4ccRQ IqiHBqZEjcINQ4W44lf5B3 SILiGQKgGZG5mWL3gL3coWqfttp gbGVmdDsgdmVydGljYWwtYWxpZ2 46IHRvcDsnPlBhdGllbnQg ISvxYTq0C6BkBrbkoNW+DX94EEY aLA77wAVuyOQdr7epoSi4SwHqOD JcVNH2eTxfPWoev9BxATNi P61sbFAct7D8FHCnuXpolXGlGqE gbSW1dT5gBFoyfspbk5pzvvwfVq kim4hkzf95xG96Q42vFOdz ZNBwEHYpPRFtZLNglOhihj4zlO8 wIi8+PSKmiAL4fVP1lM5zKBHaSs J3NSscH898ViTzbTXiQzve k2plh9fivOs7YsR3TWYeouUooPf fMIR3s7HsUa48Y78gVEhpKYLbXQ PlOMOrWCCkdOxddd1dgN6i Ii8+IKUlmFA8qYL2dH7nWeMwLfX 3XVwkU386GvEltMYlCbjfV32jA1 JvdXA+YGDeYau7LVRiuJjw CG0nvMBlCGyfCw4vGEQ6YdVmSvB qYPphA4YrPMYooswolrqbvXO0DI ThYTZlfO28Py2fiKiyTOOt gWXVvQ5wkpqkc4pbesyuNvAbTHG dNEj7BIs4AXPxzSljKcCmNXJ6Sj X3TKK7aOTenI9xcWajitsj qT5bL6ZjVPMedxhkLb36rQ7iGdA kBqV5JDycJuv+TVVMTEVOUywgUk HRWFXJCDRDALaNWeS2C2Ky Xyh0FKMhqVnzLO5hkVPiQOuaQs6 ptSooxQpnPQ6rGITdnvehUIDutR 0lLXBwvQHbuYzpRB9pHIKt elvtb519FbCrQDI7AYIplISpW2O ptS2rGgQiASWoCDRiS8HmaXYzKC epT460CBhgYiB6SFCxujUi T4YeCMDisTokPcG9h7E4Nj2fWL5 wRj9cYTv8WX62EE10oNIgh4R6qZ X4G6MvXEJcyzxessqmoCG5 WRSqLVRsvM65hCJvFKtgWg5tn4G 1i610GEYcLEBxtJ00Ia4hqFmxKL QpeKSGpR1jympzs0ezsnck QhOeKRLnCZi2KKs2UTZseElzZkU eBGT7SwQ8EXP8eOOmiX0bfXxzfk xcmP4kOgt+MzcgWWVhcnM8 I8AkVms1HGVpiAcrZJ5muNUuBMl rWg3nqCgofAiiWV0zSKKqajteFI BfxA9vOGCaxOTmaOfnIS9g LAAiqnjmj574VfIzHQB7XGFveUZ wA7LjvV8pEpYaPWHfNLIfC1KlvB RmXZaeP603BBvjNlO0ZEJz uzMmO1IjSYNojBhdHgG2w9Z2Es5 NII8NGFO3V3UoYoq2NNHrjIvqXO 4lpJBoCOhjTn0tmLfreCss SY9qSRUqsdccCIHiiK2nFBXyzPT suOdgDO0cWWMhgpxon284PmXsCK L7JNBgoORqH6EvyU6mOeAs ZQFpZRHsA5MneXHoQXbuF532MTz yRxH5DZIcfwFcV2HyAOQeqFtkXw N7c6R1Uq1ZOAifnBC+PC90 py43S5DwFjrqGei0OFLdTVX0zQU 2pY8sEOWwJQccz8P5mZT9C6Vpyr Dqqp3gw5ajCRCwNMisG78d vNIvl1H7RNVbcEM1DDCchDetTzL pvS06Ahq+KETylQgnc2BvLjftz0 aor8zscMu3CqOkABZigaYj qYhaAIF1f2UgAl66Y56eZVlpVBN jOBMcBWQoNIUclUnqed8ekY1fFe 8+QJNewYX4vKD4rT7jUlWo ItI4KQazH646KnWsdDPhYmvum3z mq1cmwOq9DmHzGCLacsFqmSogAA S4m3CsGm90O2SrcBwtu1Xt Kmj5ix92hRBve3A6hQT3D8JpYDH zkesjaHJwiQmxJH7zDGPzvqnkMQ XohM8rBOSwD7s0IoWeNzS2 WFzsC5FjiwJ6RKIojWZyULOovZZ GmN0hvilxq0lsjljyNkPwEHNqSW q2JZj8MMFmuZggLuAyFMD6 LsE6VSV0iXSbgX5waQttneidzI0 wOyc+CHu0w2xwnUUsOG4rsCG2FW 81HC07sNRrc7P2xDJ3N8Ch OBOwxwuqmrkrpJF2HVPpJHZncP4 0Xk8obJtpHq0gXUDdIUX6OGWrdL IwR3YlwB6lHmNdEWEtMTMb Y2ExnFRcCUfqD523MZnsSaP6IVF kzbYgE7AmRNDumKwnNdK1n8I7Cn 6EAY62LS22OC13dRYgf3U6 nYZ4G2DtDBSncrgonweghTB8SVR bDKNvmK32Dw8stOgjMr7nUJUwGS C2QICqpZAaF3HqqW6qWnQx QTHtCGPlX3CvzMMrVWphI189OJb qUiM4ACQutuZdF2SsQXEiyHgkUv J0w0Y6By6PDq87QG52GI93 dSMis8S6jJP2M1MrOKCrktljken zpDZ0AZRgBWEdrD22Gk8flZdvSl 6yUGNjHGN9JWBnoMGhR1Qu sQ6pKpNzDFEhXHOrD3LewBSiARc gE079NQhxQwS2KXMfycPiT2IxFM AbjCoaJmJ4r4K1Ij8MVTce rxa3U0RqPadlcAP+CN13AVNzOE5 1nGDkwXElk0rlcFy4NmAsVCBtPK F8aMssISfdt6AnNXLoA31r bGF (more content not included)... Normal [facility] Inpatient Patient Summaryon 01-24-2023 Inpatient Patient Summary [address] [id number] Patient Discharge Instructions Name: MICHAEL RAMON : 1985 Patient Address: [address] [place] [address] [address] [place] [id number] Primary Care Provider: Name: Thu Linda DO After you are discharged if you find you have any questions, please, call [phone] ext [phone] to speak to a nurse. Discharge Diagnosis: Prescription Information: If you have been given a prescription for narcotics, seek immediate medical attention if you have any difficulty breathing or any sudden status changes such as confusion and sleepiness. If you or anyone you know is experiencing suicidal thoughts, mental health, alcohol and/or drug addiction problems; contact the [facility] 30/09 Crisis Hotline -text 4HOPE to 318573. If you received any narcotics, sedation, or [...] business decisions or sign any legal documents [facility] would like to thank you for [...] Prevention S (more content not included)... Normal [facility] MAGR Intraoperative Recordon 01-24-2023 MAGR Intraoperative Record MAGR Intra-Op Record Summary Primary Physician: SAM HERBERT MD Finalized Date/Time: 01/24/23 12:15:52 Pt. Name: MICHAEL RAMON SHAQ /Sex: 1985 FEMALE Med Rec #: [id number] Physician: SAM HERBERT MD Financial #: [id number] Pt. Type: D Room/Bed: / Admit/Disch: 01/24/23 [...] 3 Case Attendee Thaddeus MORGAN, Freida Rodriguez RN, Barbara RN Role Performed Quality Control Coordinator Quality Control Coordinator Quality Control Coordinator Time In 01/24/23 12:09:00 01/24/23 12:09:00 01/24/23 12:09:00 Time Out 01/24/23 12:16:00 01/24/23 12:16:00 01/24/23 12:16:00 Procedure EPIDURAL STEROID INJ EPIDURAL STEROID INJ EPIDURAL STEROID INJ TRANSFORAMINAL TRANSFORAMINAL TRANSFORAMINAL LUMB(Right) LUMB(Right) LUMB(Right) Last Modified By: Ami Baker RN, Barbara RN Long, Barbara RN 01/24/23 12:15:48 01/24/23 12:15:48 01/24/23 12:15:48 Entry 4 Entry 5 Entry 6 Case Attendee aSmreen Means Melanie N Adkins, Brittany E CSFA [employer] Role Performed Quality Control Coordinator Java Xml Developer Scrub Personnel Time In 01/24/23 12:09:00 01/24/23 [...] 01/24/23 12:10:00 (more content not included)... [facility] MAGR Preoperative Record MAGR Pre-Op Record Summary Primary Physician: SAM HERBERT MD Finalized Date/Time: 01/24/23 12:06:06 Pt. Name: MICHAEL RAMON /Sex: 1985 FEMALE Med Rec #: [id number] Physician: SAM HERBERT MD Financial #: [id number] Pt. Type: D Room/Bed: / Admit/Disch: 01/24/23 [...] Signed By: Ami Baker RN 01/24/23 12:06 [facility] POCT Glucose Levelon 023 Glucose [Mass/Vol] 130 mg/dL High 74-118 [facility] Comment on above: Performed By: #### [id number] ####[facility] (DEFAULT)[address] [place] [address] Patient Handouton 01-24-2023 Patient Handout [facility] ED Clinical Summaryon 2022 ED Clinical Summary [facility] ? Urgent Care [address] [place], [place] [id number] Clinical Summary PERSON INFORMATION Name: MICHAEL RAMON Age: 37 Years Sex: FEMALE : 1985 MRN: Acct#: Visit Reason: Medical screening exam; [facility] F/U - RT FOOT INJURY Arrival: 01/22/2023 16:05:44 Discharge: 01/22/2023 17:00:00 LOS: 000 00:55 Check In: 01/22/2023 16:05:44 Checkout: 01/22/2023 17:00:00 Address: [address] [place] [id number] PCP: Thu Linda DO PROVIDER INFORMATION Provider Role Assigned Unassigned Catarina Meyers FINANCIAL AID ADVISOR Nurse 01/22/2023 16:08:55 Mati Bell PA-C ED [...] verbalizes understanding of instructions given Comment: Normal [facility] ED Patient Summaryon 023 ED Patient Summary [facility] ? Urgent Care [address] [place] [id number] PATIENT DISCHARGE INSTRUCTIONS Patient Information Name: MICHAEL RAMON Age: 37 Years Date of : 1985 Reason For Visit: Medical screening exam; [facility] F/U - RT FOOT INJURY Arrival Time: 01/22/2023 16:05:44 Primary Care Physician: Thu Linda DO Attending Physician: Mati Bell PA-C Comment: Patient Education With: Address: When: Return to this practice Comments: 04/08/23 at 3 p.m. Medication Information: The exam and treatment you received today in the [facility] Emergency Department were for an urgent problem and are not intended as complete care. It is important for you to follow up with a doctor, nurse practitioner, or physician?s assistant professor surgical technology for ongoing care. If your symptoms become [...] so we can reach you if necessary. [facility] Emergency Department has provided you with a complete list of medications post discharge. Please inform your molecular biology professor/provider of your visit and for further instruction [...] (S90.31XA) Hallux rigidus (M20.20) Medical screening exam ([id number]) Sciatica (M54.30) If you received any narcotics, [...] sign any legal documents Reason for Visit: [facility] F/u appt Allergies: Substance Reaction Symptoms [...] Infection Yes (more content not included)... Normal [facility] Urgent Care Note- Provideron 01-22-2023 Urgent Care Note- Provider Patient: MICHAEL RAMON Age: 37 years Sex: FEMALE : 1985 Associated Diagnoses: Contusion of right foot; Hallux rigidus Author: Mati Bell PA-C History of Present Illness OCCUPATIONAL HEALTH FOLLOW-UP Date of injury: 08/26/2019 Claim #: [id number] Employer: [employer] Mechanism of Injury: She was moving boxes of celery when one fell onto the top of her right foot. 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 On 08/26/19 she was moving boxes of celery when a box fell off of the cart and landed on the top of her right foot. She was initially on light duty per [employer]'s telehealth visit. 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 Surgical history: Epidural block ([id number]) on 03/06/2022 at 36 Years. Comments: 03/06/2022 10:33 Dana Conklin MA RIGHT TRANSFORAMINAL L4 AND (more content not included)... Normal [facility] Urgent Care Recordon 023 Urgent Care Record [facility] ? Urgent Care [address] [place] [address] PATIENT DISCHARGE INSTRUCTIONS Patient Information Name: MICHAEL RAMON Age: 37 Years Date of : 1985 Reason For Visit: Medical screening exam; [facility] F/U - RT FOOT INJURY Arrival Time: 01/22/2023 16:05:44 Primary Care Physician: Thu Linda DO Attending Physician: Mati Bell PA-C Comment: Visit Diagnosis: Diagnoses This Visit Contusion of right foot (S90.31XA) Hallux rigidus (M20.20) Medical screening exam ([id number]) Sciatica (M54.30) If you received any narcotics, [...] and treatment you received today in the [facility] Urgent Care were for an urgent problem and are not intended as complete care. It is important for you to follow up with a doctor, nurse practitioner, or physician?s assistant professor surgical technology for ongoing care. If your symptoms become [...] so we can reach you if necessary. [facility] has provided you with a complete list of medications post discharge. Please inform your molecular biology professor/provider of your visit and for further instruction [...] for Disease Control and Prevention November 2013 [facility] Coding Summaryon 01-21-2023 Coding Summary HTMLBase 64 GilzmmioMXd9vJo+PGhlYWQ+PE1 YTVJvD12xsNHsdP4cG9WUPJzFVq vmVFGCMYyJRgErieVtTD6kiYLuG XJu IC8+PK2eTYZzBzymbEGmo6A4oVW 4O39som0uOCrtmIO3YIQsDmPxgg rup8sojDe6PJooOpfzBnSk QNFipH00BTS1pA66Bx95eBCybHX mb9bqkUb4PnTaFDMrUCQ6vXszKD rns8EhOJMwA67boKWek7J2 NYSnrSinmQGgDbAcaEN9pM1dCIb busles1uhnkutZft6dv19tHPgb2 C0mGW9K1QdpiO3LWCumAGz UiwvyFNVnE1xwroci7wyjuzaOhB mYKYeXOk2TPc9FOSddIpvOrPmCG 38KTW8FNRqkqSfD7LpUANu aZigWtL5k9Y5Ty1IZ6UTZqewC1I NTUFSWTwvdGQ+AV87wm63Q3IsAr alShn0IYBbSJS6fUH2sT1b APFfLTejh2Y9jID6H6KdfaSjit0 od7rwTAThQPbjP61qlJGsw6X7PV RrwRC4BSZibEuzFlFttT04 Oyc+SLJqsFngi4KjQoybb7veq2i paKg2KvxuVFLtklVxhYlwQOO5m2 VzHq4gTMLljCN9hIO9sQ1b ZsTgFeA1DBhsQ446NuDkqYSjTyv oT82sJ5QpzDW+GSAtVrm3CTVdaH kpAY2tA3RvULOkylxhyMAy ySukNM9oUGUpebivCMSruT2qERC yF2d9LkPtAjF4VFkoZ8CyXFPhho goDh34cD8iXpWrJuU3XVmz W8YotsV0GOCwfYAiFYfeOZB6S46 zh0U3PEEqKGScVJN6eJU9fW7saV lnbjogbGVmdDsgdmVydGlj IHwfFBshA825YULgjEbwGiFjJFf uZyBEYXRlOiAgMTEvMTQvMjAyMz wvdGQ+UAIaJMU4jGxwFGKk vXQuGNetDe5rdPklzYbdOR0wORN xayyxRCEyfX7vBCKzdIQggYgnDY 4dIMOzuwkhn863BiKlCPA1 WINtfTXqS6ZggR7kIuGwPFWvZUT pC3LpyWTaJLiaT281NBruWdH2JW JndiUmG6ZrNJTlqAdfGmX8 y6Z3Uj1Mi5ZzqcdaR6QinSKfTjN kRvxhUQa2T0JaTyxfaYE+PC90YW EtRU33KLm2IVG1pInnMVyj NLNsS1EppX2gXeZgRHVrEKWrAuj +PHRhYmxlIHdpZHRoPScxMDAlJy IwbLntCG3oMt5aRKBmXLCx vIeyvCMqLgZgs6ilUMUpCAkbSZ4 dzCdwE1EcpAA8NDWll4l9Qk88B0 5jU7YfiGU+RHCvgXK0gYY0 qL9oCyXsSrB8OQmvN131CiTnqFG eVxdqx6ncq2cxcDd1GxY2JAVgzu KteZepTEL5z1QtLl11G35m IHdpZHRoPSIxNSUiIHZhbGlnbj0 efU7jZs2+RGGejXA5mTY6sA5bFp TuVpP3KRygV130OzPpjLSj Nxsdk7vpw4uejDg2RoDzWBGjcmC uwWejRJA4g6WsDu89B4NwsYxgd0 RwBlv4ts84dAObm5K7rHG9 K7PlKHLuedmhwBIekBxgES6cKTY aiswuQLCpkH2dSXCwK9j9EiWqYb Y8QBbdN0BfumI8VSUauAQq MRJroDVHbN5uawtuq1mdhwdzBlN wQYOrMDf2LSv7FCKmjHqzTsJkPE N8EwX6XBU9hHUmkO7btQbe zgfgeC4nNhr+DWC9fZAytZUPTM4 lOjwvdGQ+MSHrPXQ1dTuhCSqrMG RduQ4iXZWgM2q8ZzDfXgR2 NLazW6YlqyI6XGDesHGlDGLdaVK HqV8adpuih8snplecQlSsVYLtVE f1OMb2ZESbjUznJoDyNPO8 WdE9AAH8aERjdN5cxTckyqhcdW2 wOyc+PycusPryXSK7EAs3I3FxEa e4JFLtkLbdIE7mxBCpNJjj Sw5nuHvdfFgbEB1sBOPsrkrvf90 5HwEfm7euTCJqlUXsSKiyMDE2C8 5ny4S1GJPwBGVgBNQ5xQO6 kU2wbXemamsxsBXhoHblmhFbhVr mHDilGGwqG227HYPiwFhoMfFzST m8Y2VqBqe7PKLxwIkgLW6t oOTlYKhyHi4wtWediZkyXH2xVEA vljwje019UmQtf9ggGUJmuLDgVU ywOYT3N15gc8O2SOUhBKOr QLB6tTQ7sX1zcXebgxvedVKvuXy fupHxiEhbKKhpBXuvM756OMPhwX nnHmPxvEb9O9QaFcc6VSQg jCmzIK6ukMTsMHspPf8icOjlrGw aFF9aOOOgyxxot962MkWbb0zpKG TfaGHmXNqaUSR2X08xt7B5 OBZzLVCsIGH5mPV2iX0ixZuzvww gbGVmdDsgdmVydGljYWwtYWxpZ2 46IHRvcDsnPlBhdGllbnQg YEdjCBp3R4GmMvnomBV+VA68MDN vNX04nCUedSNgm9xfaSz1MgEkNK OqPBS0rYloFYptv9WvETQn O05pxSTlk0A7WREfzJnjcPUuLjU pxGU1eK8wJQrzknalr2meonibQj vcw6shsc52aP43S36vEZng FNNgVSHeBXVcSBFhnAczeh5yeR3 wIi8+RXFdnFH4hBT4aK7aFPMnAj H5YFuyS884MhFxyNGaYtnq q2ywm8vhuCu5LhD5MSAshoQylLi qNFJ0y1PmDl31Y39jWPtpSOWuRS ChNGNfYIDrzWjxdv6dyG8h Ii8+DKIprDL2lSO9iM7lDaBzBfT 1YQsqZ555TsBsdEOzOegmE21cI5 JvdXA+FCKbHzk1GEQfuZea JD9cwOFaVPdvUd7sNEQ3JlGnPcI lCDinE3VjETKelfkaqqzerDW9TF LxVQAdfQ33Rr2ttJtoXLXk jVUNqO8pcncyi3wkfjgjFyAzBAE kKDn1ONl1FUGhmAtzIkLwWLI3Kh Q0PYM1jONetL9mvFeeqctb uD2nG5PzJSCopbxyUi30gG7wVxJ zJnU5GDynMsx+TVVMTEVOUywgUk VPJRGGOEFRKJkJEkH0M2Mq Rny8OSIfuBmeEX3cjVMgYCqgFf4 nuFqvwTqnHU6zXKCrnfnlNBNvnF 7cSJZruEGfpVscSA9ySLIo mcudo784GyLeOMG9GZRpjGWgP1C dgD5fPgAnZAMsCSTvB3BfdDIaGR gwT204UCoqOjX1YETaszYw N7NeRTJdgTceXiY3v1B6Re0hVU4 cXy6oKNj6QL74UG96iHUce3X4zZ B5J0BxLKKhtdphxsupsOP9 RBYwJEYbqS61cWCtNSxkBz5gk7N 5v357ZJKqQPKpjW36Pw8zpMkqPB EroAIPdZ2epelbo5krosqc IeLfWXOqGQb9HKq6RISvwZygZrN fGIH8UkX4HFM5eZIsmG6yjVwxtj smmJ6vVpx+MzcgWWVhcnM8 L8QjMnf2BHFsvHjiFO7xoOLpVDf bGa3hyAulaCicNO9dQOCkwgngFI FzjC0dVBRkkRTpsQltEZ7n WKOwdiecx706MzBaILY1BFRjyTR bJ5ZgsQ8fIcZlHTPoHPQvX3UrxK JdOKbmP950JMgxCtP1NGJl mtHlX4QbLXTjsXtfHbF0x3C5Ga2 ESC8SUMC4W5PrMbt5UFMpmNfoRK 1kvHSsFUbhYj0etLisgUjk MS9dRJXditqzYIDxgD3eDOScuKU wvUdnTT7xPIXgissqq852VjSrZB S3FBCkhKNiB4DjrE9zGrVj MNQgPTOzW8HawAFnZNqyH327MUy nYaH1ZNQuovJuE8OzCOMwlLivUj J9h6K6Cf6NPIP7tsIebhlt G5J4aIB0cKRxkSxroFH+OZ02fm0 7S3YhKbocBki5SCTaWBS1uVR0bK 5dWERsYKjjc9T8fQB3Q5Gq pbGjld7ho9xjFTBdBBbnM31qfRL ze1H1GNRofAC1CQYlvNyxMbEadS 93Oyc+PAEphYjfu6BvJxib j4puh3cvuFa4ClKrLIJifkRbmZk uRHY7o1IxGb81O78xXBuuALJcVC PpFKCoNMZarEjcwu8ejS4o Ii8+PBKavPW9vOJ6lL0tIiUpZyM 0ZMixL221SpUvcAAoQiajt8oeg5 geiCa0YzAtDUSmcwJtaQvq TRK8t3DcCg89A8LwoHpxd8MjUmu 0ub93oRIaq9T7eTJ3K5LuAUTedb rwmERnkJkxRF6pKTOwvwex NPPutX2eQBNhA4d1WjXpIbL9QVr aC2FdctE4AZQylHIwFEXovWVThH 6pselxw9auwcthEfPqFKNc FFj1LTp2GXBieBxsJxDfAUJ2RjA 6SNY9iJWacU6toZnvaybrhE3nCn c+IDf6k1aygROdMQ0lxQE1 RD33KK70aZYxj0F8iZF0M9JvSEJ ylwgznzozjYM6DRXiGMWgdO46Fp 6cvIhdAo6qUIUlZQM1ORUa vVOrP2XihA7yDrCmOVVlJRYuA5Q bnRFzJSuhT846GXkyJhX7FHNddv UmF4UwWTDyjOlkFcV0n0J8 Gt6OFI86CP05RI43tIXsw2M1vBK 8Q2XdJAMgabasfkgsbHG2DWAtJH IlmG48Oe3yuSruBk4iHTIc CSS1GCEcmODaA6FyuY7yAxRrQHR sALBrL0XfsTBzOWsoI995GSqkOv X5GVVxzpSyH1TvTCSibFac MpT1s5M4Oq9GUd82FD45LO89bDC mw9C0yVI4X6CqRDQnjydfxajpzP F5KOYmGGBrcK65Nj5uzMzu Ru8cNDRtWQR7RSQszBYxL0MrwC6 jBjJvGXPwRZUjJ5YlnRHyGMhcF1 58IKtzUyG2YRBiscCfM7Uc OMSitJtgTmH2i2P7Jp4PCYeabjx 7J7LlCambpMB+ZS18RVPhAO03wX PmyWIpi1uvqBi6WnMeFCQg IHN (more content not included)... [facility] Progress Note - Nurseon 01-08 Progress Note - Nurse Pt called for refi ll on Diclofenac into Latishat pt compliant with OV [Electronically Signed on: 01/20/2023 10:07 EST] Josefa Schuster LPN [Verified on: 01/20/2023 10:07 EST] Josefa Schuster LPN [facility] Coding Summaryon 01-14-2023 Coding Summary HTMLBase 64 JiwiwqfqBSo4dBf+PGhlYWQ+PE1 RDEQkX06uhFHllA7nW9ARGLvYFn peCYRXKFcJHzSqwgHgJL8lfWPcK XJu IC8+IV4bRQXoLjgxyDAng4O2qSU 5B88djq1hDYjwxKL0VIPiPbCwmn glh3ifxOe1JBowHlzzGyTa CGRmgY47LPS9iW05Ta67lLBluUZ cs6bphTp6KnGkWJJyWTU7bSkpOS dgk8CvUSXwG86ryZJly3Z3 SXIbsUgzuPBiWrSmzZC9nS7rJKt vvayqn2cyhoqbYlr9hv16bWIif7 R3cOO8O0FftuU5DOVypYIr UhtxiYMEaH5gzryuw3uuavswZgL vYEQvQSp6TBa3YDGiuWmjSsHzGX 58ANF3RQKnqtDhX4PnEIEw uMeqFfI1x5B1Cw8RP7TPLiwlW8H NTUFSWTwvdGQ+DB89zo01U3EvHp uiRtq8HGJjISZ7lIY7wQ9c AIGbQKhtn2X0dIT0P3WydgAikj3 ej2lcKQNdVErhB06suJGyk0I8RX OfaHY9OVXjgNutZsPbxA28 Oyc+HHYgoYcxp4IvWcbmj3qvh3q sbWd7UvejKPYlpcAurAffIBQ3k4 VxAy3oNSMznZZ9bLK6rD2y EjOjAwN4TMymX061FaSnwCDmSio mU91aX4LkiBT+RQSwFtk3MQFeyS wlQB2lO5KrFKFtysbxiEUo sLtrOM8lEQMsihkhZZCklU9kTHG pH8b1QwYwVcC2KZrhX4PzPGJwic apBx72iA3yQrJlQoI9MIqs Y5LfamS7WFHemTGcDCoyOVZ4Y28 gs7Y1JTKnGSEvNNE8zTO7yA4dvI lnbjogbGVmdDsgdmVydGlj XIdfHUucE712AKOruLciXkSkXAt uZyBEYXRlOiAgMTEvMDcvMjAyMz wvdGQ+ISHdFBU3xEcfKONw sLPfDKzyDb7mjUjlmLqaGA7kPQW vvubyQBCkcL4gGFDstBEsjVwwBH 3fNHCjscldf413VrRkZYE0 ZZJtrLWmP1XpdM6eYzGqAYVrUJZ wX4UuiIEzHSraQ894FUmnZjC3QQ GzllOvS3AqDWTokMayDnY5 m5V2Gl5Bf4GqcnysE7GtqZMxRqE kSxadHYb6B3UrWppxwNR+PC90YW ViMJ64FTf0HAP9kXkbJZxj YIIdW7EerO7kUfXbFLGmMBArVgs +PHRhYmxlIHdpZHRoPScxMDAlJy PnvAnjXP3ySd2wPLJnCSEt xLwkvANhHcNmb5saHBHwTMadUF9 omWefX4JboWN6BIIbo3t0Sr56O8 7cU4ZrjLF+ESIobZU3tAE9 dO4dCoYhWjD8MPdrA349MdZjtFC mLsokc4jfg2hedSk3LsB1SSFyjk XygLbePSM1a8KmEr69O79a IHdpZHRoPSIxNSUiIHZhbGlnbj0 bqP3zIh0+YNOykOV7cIV6fL5hIm FuTjP4BFcgX934DcXofUYe Glsqo4aie2ubiPb5HbWyAKAtlbH osAmpNCL5s5EpEi61T2KkkNipo5 VuIdv6ao28qGPki3I4iAR8 N3PoXGQhmyqruXLhoOpoRM6mUUF bvvohFFHdlJ3jLIQpE0f7MaJyEz H9GFlaD4CmisH6MWWtiCDd RGGjcZZGhA3aggzti9gjtyixDdT mZBOaAZc0WZw4OKAocYksHxPhUS E7HaX7YEO2oBDliU1ddYld mmvnfP0yQdm+DJH8qZNebYGSWF0 lOjwvdGQ+LMXoGSS4yPflWFeqCI NzgG4jTZWuI7f6IrErIfI6 BVxeA7KzzpO4RFExgHZrVEXxbKF NhM7nhqkhb4epkmsoDgLlWFZqQX d1PKz7RHWzfJlkSyAzQDB7 VcR5HMF9sFLqdX7ljOnoecowzJ7 wOyc+BigflQueZSA0NVf1F5HrAt n2KWWxyJpoGM9tqYShNZca Nl4ecPcoeTicKJ4jUXLqusjpm91 2BnSiu2vxWQBtuOJdBUaeWHY3V5 8ae2P4NHPrWSVwPTW1oRC5 fS9zyWqhgggtrZIvcDgxvtAxsPt oONfgREgfO525FUQyxAfpRhTfSO d2T4OjRux9ILRjxAufKR0z bSDtNNxyMa8zwOxxfAtfMQ7iTOR ettnab761YnWwq5jaRMYtkUMtBF xmKVC3D03id1E2RKLyCINa YSW7hLT0bW6gnTevthzltJVzsWo abeMumWfuECkbEZepF687HYJwwT mbUjBubRh7M5AxNce4GXVp eNndEH0fmEVcMRfkZs4tcExooBz uSH0aFOPpmsyns884NsRzi1vlGC HskUDdFIatSWW7M13vs3F5 JQNoTTUnSSL6dMP4nY7yuTejbbf gbGVmdDsgdmVydGljYWwtYWxpZ2 46IHRvcDsnPlBhdGllbnQg YSdrXOn7Z0HkPcykxMU+YG59OUK zLT05yEBpdECgc1oymHx7NrUmNC VbEZX4hHdgJLzvh0MoFWNj F38phMXdw9U5PCGyiLjjcUDuVtX fjMA1yW6vGKijcvrhu6qgtwgqZq uky1dydq64nZ80R63vIOzl PABrQXXaPRReLYQoqEschl6svK5 wIi8+SSJrwHG1jHF5eA9mCWHbAt K3OVkbY681NmWmhBCjWrav j8xgm3zjcNx8SdI0SNEhxxStjTy iQTJ7m9KkIm82J83uGDmxEYQqLM OhTNNfBWUjfJgfod9ebS8k Ii8+ZEEvxFP1qUU5hA3qLlXcZbW 6NBkzI910MlOgbLUgJssfU61nO8 JvdXA+QEXhVia9KPMujXzb CF5tkMMjTJqhJl6oUOZ1QxOkEjG sUGwoQ9FcBOIyczgbyprulDI8KY YxNYMlmN49Uh1vvXxhHEFa wMFStL0pvhwbj7zegnitWuAvCCH bKSd4ICx4OYKgcWczAcMwTTT1Kl B3MOA7pQXuvA9tgSvxgtky uQ3mY0UaYXQmxesdSu17hR2eYlH pEbA5UFkqJmz+TVVMTEVOUywgUk PLTNJSUFZIXFkHEoN0I4Hp Vqf8VRNsyNabKU2feFWjBXoaHx0 xpKtqjCwvYA4uGQFjytdbMRTtuD 6iAPEwpMZgbYfuRA0nZAMt xqgvm583BgVgTNU3TFAjpOEgJ7H aqO6qPqYuIJMzLEWzD8MekPNdFT cgR279DStlPdB8SGXxcaLz X2KgLZGskTweCrD6j2Y9Qn7vSV2 cVj5oJVa2MZ05DI28qAOxn2R9gR E0V6YuMIIrtwajpwtrjHQ7 QJAiKBUigJ74cVUxZAjlEo3ey6V 1g700WEBpGOPdvD00Zt3rlEwrVK UjxNSBhN7dbwzcw8fjfbml YbWhHVAhASe1LCe6VPSnpAjnQmM fFNR9YpF8SNU1qMImnJ6esTzvgm adrE5jMcm+MzcgWWVhcnM8 S5ApQqv6ARDrjCxiZQ6piAHqPEw uSz6bmJlmbKukCG6bPTDbrzfiFV DbjR0tIBBwgQKayLsoIM5j NYCzfduwp626IaXdXAW3YBCfjAU pP9MraQ5zFdIsWPMlDOWeV6WodP LtIRlcN956YDloQaP4TUUb kfOwO3SpBFLavIurEsZ5n9H8Ed3 IRM3NKVP0K1DiRqt8EORlkWvmLT 2agRAhWDyiYh0ddOqyiUls SG0nASHdqqapAJYowC5xLTEowKT ukHquFD3mRFUwlsjbz664TvZaKG S7ZEMidAEvZ4DkaQ0aYeOq KIZjEDMhF2KawBXxGKupQ719GGm xTgE0PTKpizJpI8EvNRIqvPmlCk M2w8T5Uz1NDRI1aiZbejwa A2V7nFA7qVCcwLakjZZ+RX39ua5 7T8ZgYgxgHay9KWIoNZK3hQN3kT 0xBVGfRNmtx2T8zYO3J0Oy acQqkh8pd3pzZFNeRAvsH05qfWX xt6I4FBAmfXB5CZUflKkuLsWuzI 93Oyc+ZBKlxIpij7WaKqwc y8qhk2eukJq9PaYwNHWaefYtpXj rIZJ0h9GvYo10I86tVNnuKAWnNP PhOJIqRWCnkYrfgu9lvP0z Ii8+BMTxxOX5aFK6cT9mVfDnOqW 8WUuaV979TnZsxLZqLhgjs9xpo5 lqtYy4TzInJJXvruPhuUkh FWN6m6AnMs50J7EilNnlf9FdFpy 4yo99nFIto3P4lHK5Z9QrLDIyme ifkIPejPdzKH3kGMWwpacj QGVauO0lUJRjW8h2ZkPdHlW8NLn tB1UhqdY4SYGniCXwMOIixAYGrZ 5rcdzla0xazmvjNgLcRLNk GHm0TPy0GPQmjNorTjZqPXY4JtF 7DFO0pYYcsM6sqRaqoowrlO2iCr c+UIj6l8ujcGHmUU6peNN2 JL88PB44oUDgj0H0kQY9W8QdOXL vfyqtgjweiAX0TPIuXGTikF74Gq 5uzBrlGw9aSWZcQYF6PMLs vTFsY7UueE5pUwPqNDGpMHVuT1T nfWFdESggO655TUwwCpR1KQTfwk NaU7JcAGXglNusGyY9y3P2 Lq5FZC04PN76BL13iBZnx5H9mAD 7P7CnIOWvllyzgauxtRN8GPInVU ZduM44Ay4ooHugLo2mNPCv ECD4PCEhcNYbJ6HntE1mAcQnCMD hOOMiQ6JdtAEaDZtxT824SJqsTv L1PMWgtlLgB4KoMOPsuDks DfW3q2X1Tl3MYv35IV07QZ73bQO ms1W0wFM9Q4MsYJEhbuyhqydgdG H3QBBhGPPwwJ30Cf8asCyc Gm4uNFZlPFF3QQNnpUIqM7VfbJ9 bHpRsWSMnLCUgO0ZpsWUoGPwxH0 82IOygJwO3PGXdbeUaD1Ln FDCffNcnTtC3k1T8Lq1AWPgwgdu 0O2ZsXyitmMA+ZD95HJQiOU42jQ XdrPJbk3qzbBr9LzUyUVFm IHN (more content not included)... [facility] Physical Therapy Noteon Physical Therapy Note [id number]#1.00OTGTIFF [facility] Physical Therapy Note [id number]#1.00OTGTIFF [facility] Provider [facility] 01-09-2023 Provider Orders [id number][facility] Progress Note - Nurse Patient called req uesting refill of Lyrica. Patient is compliant. OARRS is reviewed. Order sent to Dr. Sam Herbert for review and approval. [Electronically Signed on: 12/31/2022 14:36 EDT] Giuliana Travis RN [Verified on: 12/31/2022 14:36 EDT] Giuliana Travis RN [facility] Provider [facility] 12-30-2022 Provider Orders [id number]#[facility] 12-08 Physical Therapy Note [id number]#1.[facility] DECLAN Antinuclear Antibodieson 12-24-2022 Antinuclear Abs, IFA Negative Normal . [facility] Comment on above: Order Comment: Reaso n for Exam HAMMOND (nonalcoholic steatohepatitis) Result Comment: Nega tive <1:80 Borderline 1:80 Positive >1:80 ICAP nomenclature: AC-0 For more information about Hep-2 cell patterns use ANApatterns.org, the official website for the International Consensus on Antinuclear Antibody (DECLAN) Patterns (ICAP). Performed at: - [facility] [id number] Acting Manager: Jared Reeves PhD, Phone: [phone] Performed By: #### S MAB, MITOM2, HBCAB, HBSAB, ALPHA PHEN, HAABT, CERULOP, HCBIGM, HCV RX PCR, IGG, HAAB, DECLAN, L-K MICRO, HBSAG, HEMOCHROM ####[facility] ,#### SLY ####[place] [address] [address] Actin smooth muscle IgG Ab [ Units/volume] in SerumOrdered By: Job Martinez on 12-24-2022 Actin smooth muscle IgG Qn (S) 8 Units 0-19 [facility] Comment on above: Negative 0 - 19 Weak positive 20 - 30 Moderate to strong positive >30 Actin Antibodies are found in 52-85% of patients with autoimmune hepatitis or chronic active hepatitis and in 22% of patients with primary biliary cirrhosis. Szfla-7-Szkhwqoqqyu Phenotyp max 12-24-2022 Alpha 1 Anti-Trypsin 184 mg/dL Normal 100-188 [facility] Comment on above: Order Comment: Reaso n for Exam HAMMOND (nonalcoholic steatohepatitis) Performed By: #### S MAB, MITOM2, HBCAB, HBSAB, ALPHA PHEN, HAABT, CERULOP, HCBIGM, HCV RX PCR, IGG, HAAB, DECLAN, L-K MICRO, HBSAG, HEMOCHROM ####[facility] ,#### SLY ####[place] [address] [address] Phenotype (P1) MM Normal . [facility] Comment on above: Order Comment: [...] Ranges used to confirm phenotype. Performed at: - [facility] [id number] Acting Manager: Jared Reeves PhD, Phone: [phone] Performed at: - [facility] [id number] Acting Manager: Janiya Caraballo MD, Phone: [phone] Performed By: #### S MAB, MITOM2, HBCAB, HBSAB, ALPHA PHEN, HAABT, CERULOP, HCBIGM, HCV RX PCR, IGG, HAAB, DECLAN, L-K MICRO, HBSAG, HEMOCHROM ####[facility] ,#### SLY ####[facility] Blood or tissue HFE gene mut ations identification by molecular genetics methodOrdered By: Job Martinez on 12-24-2022 HFE gene targeted mutation analysis [employer] Nom (Bld/Tiss) See comment . [facility] Comment on above: Result:c.845G>A (p.C wv875Tlc) - Not Detectedc.187C>G (p.Nib43Yow) - Not Detectedc.193A>T (p.Hkp34Dml) - Not DetectedNot associated with increased risk [...] recommended for patientswho are homozygous for c.845G>A (p.Qjh647Wxw) and have yetto experience clinical symptoms.Comments:The most common HFE variants associated with hereditaryhemochromatosis are c.845G>A (p.Kth388Yym), c.187C>G(p.Gkt50Fuo), c.193A>T (p.Lfq00Cla). While patientshomozygous for c.845G>A (p.Hay756Ydg) are the most likelyto present clinical symptoms, less than 10% developclinically significant iron overload with tissue and organdamage.Genetic counseling is recommended to discuss the potentialclinical implications of positive results, as well asrecommendations for testing family members.Genetic Coordinators are available for health careproviders to discuss results at [phone]).Test Details:Three variants analyzed:c.845G>A (p.Sfb770Itl), commonly referred to as C282Yc.187C>G (p.Ewq62Bze), commonly referred to as H63Dc.193A>T (p.Kei13Idr), commonly referred to as E09GIacisqw/Limitations:DNA Analysis of the HFE gene (NM_000410.4) was [...] was developed and its performancecharacteristics determined by [employer] It has not beencleared or approved by the Food and Drug Administration.References:Clem BR, Ivan PC, Alireza KV, Steven LW, Angel ;[employer] [place] [employer] for the [employer] of Liver Diseases.Diagnosis and management of hemochromatosis: 2011 practiceguideline by the [employer] [place] Association for the Study ofLiver Diseases. Hepatology. 2010;54(1):328-43. doi:10.1002/hep.35913. PMID: 78660661; PMCID: [id number].Eliecer G, Regine P, Michael RODRIGUEZ, Haider H, Maxime O,Merlin S, James I, Ranjeet M, Natividad S. [facility] best practiceguidelines for the molecular genetic diagnosis ofhereditary hemochromatosis (HH). Eur J Hum Sobeida. 2016Apr;24(4):479-95. doi: 10.1038/ejhg.2015.128. Epub 2014. PMID: 51117170; PMCID: [id number]. Ceruloplasminon 12-24-2022 Ceruloplasmin 35.5 mg/dL Normal 19.0-39.0 [facility] Comment on above: Order Comment: Reaso n for Exam HAMMOND (nonalcoholic steatohepatitis) Result Comment: Perf ormed at: - [facility] [address] [id number] Acting Manager: Jared Reeves PhD, Phone: [phone] PERFORMED BY: [place] [address] PATHOLOGIST SLATER APPRENTICE SINCERE GREENWOOD M.D. Performed By: #### S MAB, MITOM2, HBCAB, HBSAB, ALPHA PHEN, HAABT, CERULOP, HCBIGM, HCV RX PCR, IGG, HAAB, DECLAN, L-K MICRO, HBSAG, HEMOCHROM #### [facility] , #### SLY #### [address] Ferritinon 12-24-2022 Ferritin [Mass/Vol] 92.4 ng/mL Normal 11.0-306.8 [facility] Comment on above: Order Comment: Reaso n for Exam HAMMOND (nonalcoholic steatohepatitis) Result Comment: PERF ORMED BY: [facility] [address] [place] [address] PATHOLOGIST [employer]ATER APPRENTICE SINCERE GREENWOOD M.D. Performed By: #### S MAB, MITOM2, HBCAB, HBSAB, ALPHA PHEN, HAABT, CERULOP, HCBIGM, HCV RX PCR, IGG, HAAB, DECLAN, L-K MICRO, HBSAG, HEMOCHROM #### [facility] , #### SLY #### [address] Ferritin [Mass/volume] in Se rum or PlasmaOrdered By: Imsonal Asaad on 12-24-2022 Ferritin [Mass/Vol] 92.4 ng/mL 11.0-306.8 [facility] Hep C Ab wRfx to Qnt PCRon 1 Hepatitis C Virus Antibody Non-Reactive Normal Non Reactive [facility] Comment on above: Order Comment: Reaso n for Exam HAMMOND (nonalcoholic steatohepatitis) Performed By: #### S MAB, MITOM2, HBCAB, HBSAB, ALPHA PHEN, HAABT, CERULOP, HCBIGM, HCV RX PCR, IGG, HAAB, DECLAN, L-K MICRO, HBSAG, HEMOCHROM ####[facility] ,#### SLY ####[facility] Interpretation Hepatitis C Normal . [facility] Comment on above: Order Comment: Reaso n for Exam HAMMOND (nonalcoholic steatohepatitis) Result Comment: Not infected with HCV unless early or acute infection is suspected (which may be delayed in an immunocompromised individual), or other evidence exists to indicate HCV infection. Performed By: #### S MAB, MITOM2, HBCAB, HBSAB, ALPHA PHEN, HAABT, CERULOP, HCBIGM, HCV RX PCR, IGG, HAAB, DECLAN, L-K MICRO, HBSAG, HEMOCHROM ####[facility] ,#### SLY ####[facility] Cow[address] Hepatitis A Antibody IgMon 1 Hepatitis A Antibody IgM Negative Normal Negative [facility] Comment on above: Order Comment: Reaso n for Exam HAMMOND (nonalcoholic steatohepatitis) Performed By: #### S MAB, MITOM2, HBCAB, HBSAB, ALPHA PHEN, HAABT, CERULOP, HCBIGM, HCV RX PCR, IGG, HAAB, DECLAN, L-K MICRO, HBSAG, HEMOCHROM ####[facility] ,#### SLY ####[facility] [id number] Hepatitis A Antibody Totalon 12-24-2022 Hepatitis A Antibody Total Negative Normal Negative [facility] Comment on above: Order Comment: [...] total antibody results to IgM (e.g., panel #[id number] HAV Antibody w/ Rfx). Performed By: #### S MAB, MITOM2, HBCAB, HBSAB, ALPHA PHEN, HAABT, CERULOP, HCBIGM, HCV RX PCR, IGG, HAAB, DECLAN, L-K MICRO, HBSAG, HEMOCHROM ####[facility] ,#### SLY ####[place] [address] [address] Hepatitis A virus Ab [Presen ce] in Serum by ImmunoassayOrdered By: Job Martinez on 12-24-2022 HAV Ab IA Ql (S) Negative Negative [facility] Comment on above: Comment: The HAV [...] HAVtotal antibody results to IgM (e.g., panel #[id number] HAVAntibody w/ Rfx). Hepatitis B Core Antibodyon 12-24-2022 Hepatitis B Core Antibody Negative Normal Negative [facility] Comment on above: Order Comment: Reaso n for Exam HAMMOND (nonalcoholic steatohepatitis) Performed By: #### S MAB, MITOM2, HBCAB, HBSAB, ALPHA PHEN, HAABT, CERULOP, HCBIGM, HCV RX PCR, IGG, HAAB, DECLAN, L-K MICRO, HBSAG, HEMOCHROM ####[facility] ,#### SLY ####[address] Hepatitis B Core Antibody Ig Mon 12-24-2022 Hepatitis B Core Antibody IgM Negative Normal Negative [facility] Comment on above: Order Comment: Reaso n for Exam HAMMOND (nonalcoholic steatohepatitis) Result Comment: Perf ormed at: - [facility] [address] [id number] Acting Manager: Jared Reeves PhD, Phone: [phone] Performed By: #### S MAB, MITOM2, HBCAB, HBSAB, ALPHA PHEN, HAABT, CERULOP, HCBIGM, HCV RX PCR, IGG, HAAB, DECLAN, L-K MICRO, HBSAG, HEMOCHROM ####[facility] ,#### SLY ####[address] Hepatitis B Surface Antibody on 12-24-2022 Hepatitis B Surface Antibody Non-Reactive Normal . [facility] Comment on above: Order Comment: Reaso n for Exam HAMMOND (nonalcoholic steatohepatitis) Result Comment: Non Reactive: Inconsistent with immunity, less than 10 mIU/mL Reactive: Consistent with immunity, greater than 9.9 mIU/mL Performed By: #### S MAB, MITOM2, HBCAB, HBSAB, ALPHA PHEN, HAABT, CERULOP, HCBIGM, HCV RX PCR, IGG, HAAB, DECLAN, L-K MICRO, HBSAG, HEMOCHROM ####[facility] ,#### SLY ####[address] Hepatitis B Surface Antigeno n 12-24-2022 HBsAg Screen Negative Normal Negative [facility] Comment on above: Order Comment: Reaso n for Exam HAMMOND (nonalcoholic steatohepatitis) Result Comment: PERF ORMED BY: [facility] [address] [place] [address] PATHOLOGIST SLATER APPRENTICE SINCERE GREENWOOD M.D. Performed By: #### S MAB, MITOM2, HBCAB, HBSAB, ALPHA PHEN, HAABT, CERULOP, HCBIGM, HCV RX PCR, IGG, HAAB, DECLAN, L-K MICRO, HBSAG, HEMOCHROM ####[facility] ,#### SLY ####[facility] [id number] Hepatitis B virus surface Ag [Presence] in Serum or Plasma by ImmunoassayOrdered By: Imad Asaad on 12-24-2022 HBV surface Ag IA Ql Negative Negative [facility] Hepatitis C virus IgG Ab [Pr esence] in Serum or Plasma by ImmunoassayOrdered By: Imad Asaad on 12-24-2022 HCV IgG IA Ql Non-Reactive Non Reactive [facility] Hereditary Hemochromatosis,D NAon 12-24-2022 Hereditary Hemochromatosis Normal . [facility] Comment on above: Order Comment: Reaso n for Exam HAMMOND (nonalcoholic steatohepatitis) Result Comment: Resu lt: c.845G>A (p.Fju883Rnb) - Not Detected c.187C>G (p.Ciq23Jpr) - Not Detected c.193A>T (p.Fkh45Lbm) - Not Detected Not associated with increased [...] for patients who are homozygous for c.845G>A (p.Fnt200Uln) and have yet to experience clinical symptoms. Comments: The most common HFE variants associated with hereditary hemochromatosis are c.845G>A (p.Fst454Zvf), c.187C>G (p.Xzp15Bcs), c.193A>T (p.Rly39Aub). While patients homozygous for c.845G>A (p.Kjt265Bvv) are the most likely to present clinical symptoms, less than 10% develop clinically significant iron overload with tissue and organ damage. Genetic counseling is recommended to discuss the potential clinical implications of positive results, as well as recommendations for testing family members. Genetic Coordinators are available for health care providers to discuss results at [phone]). Test Details: Three variants analyzed: c.845G>A (p.Fss111Kwz), commonly referred to as C282Y c.187C>G (p.Ese13Owd), commonly referred to as H63D c.193A>T (p.Itx92Riu), commonly referred to as S65C Methods/Limitations: DNA [...] developed and its performance characteristics determined by [employer] It has not been cleared or approved by the Food and Drug Administration. References: Clem BR, Ivan PC, Alireza KV, Steven LW, Angel ; [employer] [place] [employer] Liver Diseases. Diagnosis and management of hemochromatosis: 2011 practice guideline by the [employer] [place] [employer] the [employer] of Liver Diseases. Hepatology. 2011 Sep;54(1):328-43. doi: 10.1002/hep.64562. PMID: 42845602; PMCID: [id number]. Eliecer G, Regine P, Michael DW, Haider H, Maxime O, Merlin S, James I, Ranjeet M, Natividad S. [facility] best practice guidelines for the molecular genetic diagnosis of hereditary hemochromatosis (HH). Eur J Hum Sobeida. 2016 Jun;24(4):479-95. doi: 10.1038/ejhg.2015.128. Epub 2014Sep 14. PMID: 51100629; PMCID: [id number]. Performed By: #### S MAB, MITOM2, HBCAB, HBSAB, ALPHA PHEN, HAABT, CERULOP, HCBIGM, HCV RX PCR, IGG, HAAB, DECLAN, L-K MICRO, HBSAG, HEMOCHROM ####[facility] ,#### SLY ####[place] [id number] [address] Reviewed by: Paddy Dobbs, PhD Normal . [facility] Comment on above: Order Comment: Reaso n for Exam HAMMOND (nonalcoholic steatohepatitis) Result Comment: Perf ormed at: TG - [facility] [address] [place], [place] [id number] Acting Manager: Fransisco Espinosa [facility], Phone: [phone] PERFORMED BY: [facility] [address] [place] [address] PATHOLOGIST [employer] APPRENTICE SINCERE GREENWOOD M.D. Performed By: #### S MAB, MITOM2, HBCAB, HBSAB, ALPHA PHEN, HAABT, CERULOP, HCBIGM, HCV RX PCR, IGG, HAAB, DECLAN, L-K MICRO, HBSAG, HEMOCHROM ####[facility] ,#### SLY ####[place] [id number] [address] IgG [Mass/volume] in Serum o r PlasmaOrdered By: Job Martinez on 12-24-2022 IgG [Mass/Vol] 1634 mg/dL [phone] [facility] Comment on above: Performed at: [facility] [id number] [place] [id number] Director: Jared Reeves PhD, Phone: [phone] Immunoglobulin Chris Immunoglobulin G 1634 mg/dL High [phone] [facility] Comment on above: Order Comment: Reaso n for Exam HAMMOND (nonalcoholic steatohepatitis) Result Comment: Perf ormed at: - [facility] [id number] Acting Manager: Jared Reeves PhD, Phone: [phone] Performed By: #### S MAB, MITOM2, HBCAB, HBSAB, ALPHA PHEN, HAABT, CERULOP, HCBIGM, HCV RX PCR, IGG, HAAB, DECLAN, L-K MICRO, HBSAG, HEMOCHROM ####[facility] ,#### SLY ####[facility] [id number] [place] [address] Liver-Kidney Microsomal Abon 12-24-2022 Liver-Kidney Microsomal Ab 1.2 Normal 0.0-20.0 [facility] Comment on above: Order Comment: Reaso n for Exam HAMMOND (nonalcoholic steatohepatitis) Result Comment: Nega tive 0.0 - 20.0 Equivocal 20.1 - 24.9 Positive >24.9 LKM type 1 antibodies are detected in patients with autoimmune hepatitis type 2 and in up to 8% of patients with chronic HCV infection. [facility] [address] [place] [id number] Acting Manager: Jared Reeves PhD, Phone: [phone] Performed By: #### S MAB, MITOM2, HBCAB, HBSAB, ALPHA PHEN, HAABT, CERULOP, HCBIGM, HCV RX PCR, IGG, HAAB, DECLAN, L-K MICRO, HBSAG, HEMOCHROM ####[facility] ,#### SLY ####[facility] [id number] Mitochondrial (M2) Antibodyo n 12-24-2022 Mitochondrial (M2) Antibody 21.8 High 0.0-20.0 [facility] Comment on above: Order Comment: Reaso n for Exam HAMMOND (nonalcoholic steatohepatitis) Result Comment: Nega tive 0.0 - 20.0 Equivocal 20.1 - 24.9 Positive >24.9 Mitochondrial (M2) Antibodies are found in 90-96% of patients with primary biliary cirrhosis. Performed By: #### S MAB, MITOM2, HBCAB, HBSAB, ALPHA PHEN, HAABT, CERULOP, HCBIGM, HCV RX PCR, IGG, HAAB, DECLAN, L-K MICRO, HBSAG, HEMOCHROM ####[facility] ,#### LSY ####[facility] [id number] No Panel InformationOrdered By: Job Martinez on 12-24-2022 Hemochromatosis Note Paddy dobbs, phd . [facility] Comment on above: Performed at: TG - L Submittable [id number] [place], [place] [id number] Director: Fransisco Espinosa [facility], Phone: [phone] Hepatitis A IgM Antibody Negative Negative [facility] Hepatitis B Core IgM Antibody Negative Negative [facility] Comment on above: Performed at: CB - L Submittable [address] [id number] Director: Jared Reeves PhD, Phone: [phone] Hepatitis B Core Total Antibody Negative Negative [facility] Hepatitis C Interpretation See comment . [facility] Comment on above: Not infected with HC V unless early or acute infection issuspected (which may be delayed in an immunocompromisedindividual), or other evidence exists to indicate HCVinfection. Serum lceue-5-qfxezrwedoe me asurementOrdered By: Job Martinez on 12-24-2022 Alpha 1 antitrypsin [Mass/Vol] 184 mg/dL 100-188 [facility] Serum hepatitis B virus surf deric antibody detectionOrdered By: Job Martinez on 12-24-2022 HBV surface Ab Ql (S) Non-Reactive . [facility] Comment on above: Non Reactive: Incons istent with immunity, less than 10 mIU/mL Reactive: Consistent with immunity, greater than 9.9 mIU/mL Serum homogeneous pattern an tinuclear antibody (DECLAN) titerOrdered By: Job Martinez on 12-24-2022 Homogenous nuclear Ab pattern (S) [Titer] N/A [facility] Serum mitochondria M2 IgG an tibody assay (units/volume)Ordered By: Job Martinez on 12-24-2022 Mitochondria M2 IgG Qn (S) 21.8 Units 0.0-20.0 [facility] Comment on above: Negative 0.0 - 20.0 Equivocal 20.1 - 24.9 Positive >24.9Mitochondrial (M2) Antibodies are found in 90-96% ofpatients with primary biliary cirrhosis. Serum nuclear antibody titer Ordered By: Job Martinez on 12-24-2022 Nuclear Ab (S) [Titer] Negative . [facility] Comment on above: Negative <1:80 Borde rline 1:80 Positive >1:80ICAP nomenclature: AC-0For more information about Hep-2 cell patterns useANApatterns.org, the official website for theInternational Consensus on Antinuclear Antibody (DECLAN)Patterns (ICAP).Performed at: [employer] [place] [id number] Director: Jared Reeves PhD, Phone: [phone] Serum or plasma alpha 1 anti trypsin phenotyping identification by immunofixationOrdered By: Job Martinez on 12-24-2022 Alpha 1 antitrypsin phenotyping Immunofixation Nom Mm . [facility] Comment on above: Phenotype Population A-1-AT Concentration* [...] reference. Ranges used to confirm phenotype.Performed at: [place] [id number] [place], [place] [id number] Director: Jared Reeves PhD, Phone: [phone] at: [place] [id number] [place], [place] [id number] Director: Janiya Caraballo MD, Phone: [phone] Serum or plasma ceruloplasmi n measurement (mass/volume)Ordered By: sonal Martinez on 12-24-2022 Ceruloplasmin [Mass/Vol] 35.5 mg/dL 19.0-39.0 [facility] Comment on above: Performed at: [address] [id number] Director: Jared Reeves PhD, Phone: [phone] Serum or plasma lipoprotein a measurement (moles/volume)Ordered By: [facility] on 12-24-2022 Lipoprotein a [Moles/Vol] 1.2 Units 0.0-20.0 [facility] Comment on above: Negative 0.0 - 20.0 Equivocal 20.1 - 24.9 Positive >24.9LKM type 1 antibodies are detected in patients withautoimmune hepatitis type 2 and in up to 8% ofpatients with chronic HCV infection.Performed at: [facility] [address] [id number] Director: Jared Reeves PhD, Phone: [phone] Smooth Muscle Antibodyon Smooth Muscle Antibody 8 Normal 0-19 [facility] Comment on above: Order Comment: Reaso n for Exam HAMMOND (nonalcoholic steatohepatitis) Result Comment: Nega tive 0 - 19 Weak positive 20 - 30 Moderate to strong positive >30 Actin Antibodies are found in 52-85% of patients with autoimmune hepatitis or chronic active hepatitis and in 22% of patients with primary biliary cirrhosis. Performed By: #### S MAB, MITOM2, HBCAB, HBSAB, ALPHA PHEN, HAABT, CERULOP, HCBIGM, HCV RX PCR, IGG, HAAB, DECLAN, L-K MICRO, HBSAG, HEMOCHROM ####[facility] ,#### SLY ####[facility] [id number] [place] [address] [facility] Coding Summaryon 12-13-2022 Coding Summary HTMLBase 64 JwfqtbulMBn9aIb+PGhlYWQ+PE1 GNWJwD24auJUcrL1aY7SYWWdQDj vsGGFHAPpLWfKjvoWgJG6qpIUlK XJu IC8+GH0lVKDyWqegiRVps0M8lDC 8N39mdp4kHPwleSQ0DAMfOfByzn eku2byrSm0ZUtgLymsNxWi KQYvnY12FML3gD22Uo36rTDjtIZ uw9morEw1FjYaIGUxVBW8yWiqBC smd3JtVXUtZ02jyJPvg2G4 LLJgdYcsbRYaZdUxsXK3hB5fMQl auznrv7uohpnzWfh6ia78wJMxn4 A0fFY7J1VlotK3ZIKlsEHy TqshpUPApF0linpna0bgmvevUxL hQJYhTAs6OVt2PNOfwLycMgYwGG 39SGM5VZGnmkEeV8RdFIKn jUtdPiX1w0N6Pc3XG8DOVvnoY4P NTUFSWTwvdGQ+AL33qp38K2FpUk lrZky2TCEfJAQ6kKA3uY4o LWEjYLoth7M1xGR6S8YoygAycu8 kk4voHNXkEEhkW62yxRFdr1D8MQ OyvOS4GLBeaGxhVaQhyL15 Oyc+KCEjwFdeo6UjUoygb3jal8d bxIp4UkwzPBJmoxErtLloHEN4e0 DiBe0sCTYozNO5oPU1iD8o GaFcZnT9FHhmY349VeFpnADqSnu qT40uB4GcmSS+XTUpQxo4IAJoxN thXG4lO7IcKCSvdgvkwRFi dWsuUT9xRAWuytefJLDtpD0tWHV dX5p8PbEiPyV5DPkkS7KbFTRxgk fkPu57nM2yDrSxPdA3ZVeh R7XdgnS6YEJkfREcMDmnMBZ4V77 hx8J9CWHsJBSgCFC5cPJ8iW1tuM lnbjogbGVmdDsgdmVydGlj NHtsCQrnR078YKOqrCeuTqJcDRy uZyBEYXRlOiAgMTAvMDYvMjAyMz wvdGQ+EOKnUQT2pVsxTOUv eKUjPMsvIx0utNxojLigJU4mTAS xfogjJKUquQ3eBIFsiVLviHqiFP 6fPFMkneuhh585LnZtVBM9 DAYerCOsY1XunS7eIyMpAWSwVTF eD2TdmANpCEnzY872NEsnEyU4ON HhumUrQ6HrAKTgbJmkLmD9 y1X6Sy6Fl2KllahpC7XujAAhIwX qGmhuWFb8U6MsXaxqpYK+PC90YW BnMA71DDd3YMY1sEzxYRfy XZAgL6DsbF3xMyHhWFCvHLPaSpe +PHRhYmxlIHdpZHRoPScxMDAlJy VmyMpcBX7vKq2hANEhKMGb lKihtPEoWrJjy9fnPLIlJLzmPK8 eyFhiK6EatOO0CSZnp7a6Ri62I3 1uB9YlzYX+NKOtyRG3zDJ5 uH8nPjAwAiV0OFgoL056VdPyoQZ lVphql0izc0rniKd4NpC7HKMokz QluTqqYZC8p8SyPz68D53c IHdpZHRoPSIxNSUiIHZhbGlnbj0 lbS8gNu8+CLQrqBA8wZI0zM2sOd MjCqI6MPxbK883KxZhjOXx Ohgiz5cbq9ukqMw0FpJvRCIcgzA wzAnwNVL5u8XaYh98S0AnvEnbs8 JzIrz2ws39kZXwx4U5yJM8 M6ZkXDSyvbhtyHBurJugOP5lZMG xhhanQGRzzU9hGJGtD7b6GdKvPz P1ICdzT4AnczP8IGHnaKFc MMMegZYRsY6avzgix2hewdasQhR nKBLwIAu1XDh5TJBuxWhyXmVwSE P5DyR5BBU3fNEyfD9nuEhm jdvxjN1zXli+KKO4mMHsvXVHHY7 lOjwvdGQ+GNRlKQH7xTqoLCasAK UesC9nSGBhE4q4XtFvHfP8 KLjtK9XkthE8YFDmoXHmZFGdnCT AcX6cetsdn2rkukdpVbSeIILlLX o7OKz2CUPwuCpnKeXkWFH3 KkW5MIV3vKMejK4tsCkerpixjC8 wOyc+KwrkgFpzOUN7WRq4V4SgEb d4CMAueCvxKB8ksFSuBEvt Ux4bdFurpNqjPF2qKZXaziprx58 1GzHav7jbLAGffUUiZLepNEI9L7 6nf1E4SZDoDBBpOIE1uHB8 kQ6maIokjfvhfEZkzQifzpOvhCf yJWrxVXntL216KNDwsOqfQrDzXQ s1L7BnDrv2UQTtjZcyZR9z sSYwSSqfEq0iuGxycQolPZ5iOAA mwyeab727LmRxp3wkHGZxvXUmRH itFHO1N37ha3R8QBWjRGIp SQT7rDA7uL0uuIqalzfhdZLyjVt vkhFcgLrdNMrgORkpP365SXTjyL ibOkKdbMc5H7RrLeg5SWMl aMpvII2wmXRaTMbuYu9fuKcxtVq cUB4gJXDsidcvu866PpGsv1htTA TlwFQcVHenRQN5L86yg6V6 EIHrNMTwCRA1xXZ1pW8yuKvwtlm gbGVmdDsgdmVydGljYWwtYWxpZ2 46IHRvcDsnPlBhdGllbnQg ZEwoDKg0F1BuTqdzsKU+AX03SVR cCV85aFRhrPOmz2vejQh5PzQsDO QzEFN4wUbuIVxvz1UmLDJp W42urYEhr2L9RAKwoHqlpVCnPzN weGG7qG2yYFngphecr2uavyvzVn ixo8pwna53hH06P98kGUwv FQTjQBAxKYXxOPRriDzzor9fgR7 wIi8+KDZjxPU6sMV1oE8uJBHfIa C7WHcdQ008AuZkmRNqWpnv h3dct9hejTt7AnK5YXOzssKgsQc tXWF1l9XwCr23I05uXSkgUQUiJI SvDAIrQGYarYajir2wjF3f Ii8+WGIbnPR1rPV6tF4lKuNfYpA 1TQabO961JdCnvUOzThecL12dX3 JvdXA+TLAkYtk1ZTSpzHra PT4ubIWnRLvpUs1tQEM6FeOsFjE oDSwsS4SbRRYbwkcghszngMH8NK BoSVDkmJ10Kf4ydCdpCXJb qDCFrR0hbmvea2ncsnpnFtUeCAI mQHt4MFu7VTEwlQifMoMuOSM8Wg T1TTZ4yFQxiP7rlMkuppex zC4uA9DrLWUxfsoyZk70nK9vIwR cLaQ0ERdiFdv+TVVMTEVOUywgUk XSVTKIOWPQLWeXVbB7E5Wd Xqy7LDQudKidPQ1gsXUlKLaySo7 ooCousEitBK7rHYGvlrleDKYsoY 7vEIQaxONmxIcyZQ4yKYLy kekpu376GpKuIHZ2JLSolYIsQ0Y bxZ3vTnZlCOMhCVYiV5DdpUAcSV eoK082QGtuIqX6LVGmlrGk U3GrQPQjsIwbQmK1e6A7Bn9bAQ0 kVq2lUEw5VD09MI92eKEqc7I2tQ W7R2XqDSBhiybyrtcuaJW4 ASZyKCCbiP10sLOfKGllCl5vy1R 4a125ONAySLSgeA70Iz7ptPubML NfeBAJoU4fsitgy3ovwtuy KwIzBSHdWRb2POj2PDGbfLpqDkQ qULJ6VeK9JBS4cTVquY8tuCkkqk zrlZ1fSgj+MzcgWWVhcnM8 R4UdXbo7NQDdbVpaWE1kfCYcWWp zRm6hgIgeiUnbCC6rQFIyatlgIN EqaA0fVCWwoWWspSpzFS6t XLUjpwvon787GoNeCDE0CFMakOX qX6TlgT0pLvVuZTMeDYRtB5DesI JtILodF665GZtsLpT4IKFm nnZuJ8YyCDGklQpqKrN8m5V1Xg9 OOT3BBYQ9A4DmEjd7XZPmoEsiJL 9dxFChDCxzHm2adEcooTug QS7gPQWbubwqOHXuhJ4yFAAvjRP icInwFR6xTBPbklioa206HiKuUT U1SVQieNQbG2GrgG4iAwRj IDQfZTZiO9VzyNAeCGjxE054IVx eEjV8VYNmkqSyD6ItIZTziCudLo I5l9J3Zr7CAPrgbXD+PC90 wu63S3FmNwheIka8ENGvEEF1rJG 6rG0lYGUiWIxsj7Z6sLH9S5Qrvf Qbay6bx3qjHCQaUHccO29j eATii9D7JIFozDY6BCUvkLujRyN ezC55Aee+YTDxsYefj1HmPcoqg9 soj0mhfQy2JwNpBMQsviWu uHjdFZF3c0WhXc74H44oMHduPYZ tYMOjAANdJIKupDbhmn3xsM3mTg 8+RKRtmTH6bTW8eI1fPiRp WgT9AKdcE926ZzShzGGyTujoe0b jr3fgoCh9JfDnLYCrwxYyjGhpQZ N5k4UkAd18L3UwbElhj3Ix Zmz1rk00kLYbw2U1oJR1J8CqTCN ykhownQPltHvdBO9bVRSfuprtDU KkhE0uVEKfF1m3JlUfCtY5 HHosS3GhgjW4NPOraNNuLJEvgFH DkW5ocuisg7ktgtlbJqUvQHRvWD y8VPl2IRLlrQrzRkEwOTG9 OxT5LKA1qLEpeR3stXdkbsfspQ3 wOyc+GNf3o0yhbFXxHZ0kmJI6JH 20QH49gOScc8W7rGF5A6Co JZXfighsgnrcmFY0SEGzBPCnwV1 6De0sqAcwVo3oYDLyJVE1AQTapO KsK0LlhW2cLcRtTBAqLJSi V3FzbZWiDLmjZ772OFmjHuX8EDU gwdAhX0IeGWKrkFgsPiT4m9A9Cb 4PKQ64UD99ZT52gGUrm0Y5 vPU1H7KsWOPkkmupvpbdkHC8CVA uGBMnlQ03Zw9uaKkzKx9rHXRxLX G6GTHhgJVhS0VqpN0cDiPn TTKwILNyD7DcwPNyQOcsQ050TNn pGcJ9JVHphvKqN2BtYKUjiSjbQj A3p2B0Eo4ISb08CX04SN46 nHCvj7F8tLD2S4AjJHGuyfzajyf wuUW1YLFhUIKfzB86Hw6xtFqgMl 4lPTYsUUM8EALufBCpP7Jf bK1qFvKmWUNtETRbF0RerXDmYEc oY591FQvbZdK1QGDrdnHwX9NeXV AiuZgtAlI3r2U0Yf2RITij pqj7O1GcBosyyFE+VD67RXUnKL4 3hXCwyEYtb2emdSi1BhTaLBXwJS G8oNydSRybn1LzONJmK66r bGF (more content not included)... [facility] XR Sacrum/Coccyx Minimum 2 V iewson 12-11-2022 XR Sacrum/Coccyx Minimum 2 Views Examination: Sacrum/coccyx. History: Pain. No history of trauma reported Comparison: None Technique: 4 views of the sacrum/coccyx are submitted. Findings: With the rurkg-ru-aosc there are some degenerative.seen in the posterior [...] MD 12/12/22 10:34 a Technologist: LT LÓPEZ [facility] Coding Summaryon 12-06-2022 Coding Summary HTMLBase 64 OwjymwbpNYd6wId+PGhlYWQ+PE1 ODLWyX46myRCnlG4iG0WVCHwQBx odGHZJGDdHAsTkzeYyDW5bpLAwN XJu IC8+RW3iDUDzXhyjeNZwv3F1nLJ 7U99yoc9sVPnyoCT8GUTsRmZokw kzf8rxfCu7YCiaNlaiKmTf DGJkrY93UUD8fS78An38rXVkzWY te6kruCa3PrSkOVYlMYH1bAfrJS xxs8FkQECeM50woSLdi3L8 UJFnnUjssUBtMbTpkWM5gC6bGTv guptzx7mcglxnJdt9kp71kLCwk6 S6jLO6R9EgyoX9SGEgfOFx XbhkyZTSdC4xnxhtj8rclfixAoC wGDNeAOx7DBd7DGCkcLxdVvDfTW 49MDS1WRPkehVlL0FtUGTb bGreWmL7n3Q6Xf2VS6AHUcjfS6U NTUFSWTwvdGQ+KC52wc26A6ExDz hwXip5XLRkKTW5vRD4rL4w QNQfBDxkz8I2sKW8F4DhvwQijm1 ac0meZQXhFRyvF05nmEBph3P0BD GpzKK0VMUqzLwtIxKfiO35 Oyc+FMLqyWuge8LxCkdza2jcw5v fvSy3AavoWCXnrsDksCisFKO5f5 JpDw4dJJVioAU2wHG4fB2f EhBwUvS1DTyvC503GbEsdNGxAmr wP38xQ6SfwBY+FOJsLuf7SEErcQ nrNB4rP3CdVNWeasyvyTLw mAwbQC2gRFLedhjvEBAajK4hYJY rL0m2GsFsNcN5ITjuO5OsLGBchp udEz34oV8nOtAtKyD2TBma P6NxedS6UEYbsRFdDUqyOSE4H13 mm5F8CLBrTWLtNQC7aRK4hB3phB lnbjogbGVmdDsgdmVydGlj FNarUQmfF657PCDobXveOyQsLYd uZyBEYXRlOiAgMDkvMjkvMjAyMz wvdGQ+BDPwGSI4yLmdWJFa sUNcQPfiEt3hmVfjnFnrRY1sGHL hogikZPElmN7bIKOraPVulIxnAJ 0sNMQmljgfz529FrTnGBO5 RRZjwQOcV1PraB7rEaCwRHSfYEJ wP9TuwMZsJNszB666TKjpFuO5VU BukfDiB8KzLFNbjGrnHkV8 g4H2Ad1Kl6JgmebfK0MftBAyLjE qYzbiVSr1J0FiPzczfIT+PC90YW UqNZ21FVr5CSC5dTidYBal IRTcK8PehU2nJiVkVZVsOKFoXpe +PHRhYmxlIHdpZHRoPScxMDAlJy KlxBglMK8hDf0lYBThTZJc tGjjpBDtZiJqx6wfLYYwTYlaHF3 qeAtiJ8EepQE1SNGmx8r2Pb45P8 9pG8MvyYQ+VPEqtMV3wPD2 zE4aEuSmDtH2TVrqZ620NkOnvGX qUrqjd1sgl8dakZb3IcU1HJSblr IgoTndTOC8i4RoBl86M62y IHdpZHRoPSIxNSUiIHZhbGlnbj0 zqZ1iFn8+UPSzpEV1vRC8fV1bEl DdMdS9JVnfT381NoVdbZBi Eojfg1zfn1gfcDs4FsGsZLVjsgN axTgeIMV3b0OqHx31Q4IzxKvso6 InFef4fg63vSLwa7L9tYB0 M2QdIHAlyaxvxULnuXngAO0iYLS dnxnkBQEkoA7dMYGiB5s7VlJdLz P7BKihR0DhxwK9RXBwfKFy LSBhxJGOlX8klqapb8idmvvxXsL rNXFbOCi4FXt5MTOtdWsfGyQnPK T0BxG1FLP9jHLwsO4rcBzu iqojrC8qVcr+DGZ5kDRzmDYJWQ9 lOjwvdGQ+THUeJLV4iKskITiaLI ZaqP7xRJVpF5o3AkIsPpB4 BYrxY1HiltY2BDBfkUDmLECocNB WiL3xxhola0qfsexaZoZiCBEjJP s8VWp6MNRzqHudKeTpPMM7 IzR8IUD9fAIppC7mvTiwtbjlgN6 wOyc+CgcunXosKDZ1JOb3R7DiCx z1GZEgyUhmYY4tbXCfNBut Pm7qyZzrsUriOJ1aYDGvprevq25 5IqJev8oaIIHtfXMvAIyzXYG2M0 9eh4Q3XVLvSYJuWYB4sEE3 kL5nxBfbwjsrgINcqFhslwFgrMn cZYvzXEhyB272HYVpfFtoCnUcLB y3E3KlUdd3SVUolQrlMA2j oTJjYXupEv2anIrjvXucRD6oGGM dldxja459WnPxb3ipRIWgjDFzXY sbUCL7T69zp2I2ASHnGVFk QYE9qYD7mD6ksWzazyevnUOgbSn pexPrdNjlFDckDYhvH473PNOxrI xtPvGwaQw6U2OrHqd5DGDp qBubHS6siNUoWOyhUi6drYejdOi uBL1fCQYdasbaw768TkYru0fjGL EdkPPzIAgcECP0G84na3H2 UUZcKWIiWPQ6kNN8dB5skFiunce gbGVmdDsgdmVydGljYWwtYWxpZ2 46IHRvcDsnPlBhdGllbnQg IMfxLDg4B9IrXibnxBB+ES06FIO vFB54uXJtvHZdt7bqcWx8EaToZQ EpFVK3mPrxIVfkm0OoOHJv K02boWVww9E5DMQxpZhffQZiFxA opGP9lQ6dSAbgzhiyx8drwaukOa hkm4egkk67fT37U02bCLei MIZoYJReTEDqXIUzsSpdgt0xmB9 wIi8+AHLzrDF0wTO9sS2wVZTfAm X6WVqoW936DrNfvDLcWful k2zop1hlmTh8PxN7JCShsqVnrFt iFAP2a3LyVw85H15lRIisZROeNP JkJUHmQVLwcAljbm9coN3k Ii8+TRXniPS6zTW1zI4tHqMsPfK 5DBjsK718ThRirUDaDnmcK99lA4 JvdXA+UXNsGiw0PXLsrPxd SI9eiLEuCCstOm1lERE2GuQhIqC vKRbtU7SgPGZcynphimcuyWF4VA PyJBAtmW75We5eqYjfWQXn cFAXtC8fajcie7kinkwqAuBlLZD sYBg6IAh4WLBgrYgaEuWzNSJ6Lq O7XAK0oOSboU6qsYhzapsw oW4fU2XeGJBssgmmRk27cR6ySeU xLoW6MXenHtl+TVVMTEVOUywgUk FSIHUOVNIEQXxNVfL8W2Le Kph6JTRdfJwfBK4qeYVbIXnuWb3 ydTncqBcrVL4zWXJwlpceQUVnuS 5zBUTkwRMxwQwyEE6dRFQx qhpjx914NxRzCQB0CJTifWLgU2Y ipD6oWsMwUOPeMXPbY3SdvYAaYW coZ460LFxtFmJ2FLTbypHl V3CvKXZpiSliGuR2d8X7Ic1nOY3 fNv4iGWo3ID13RH55oJRmm5H3eO G5Z4EkSTCkvonvbqfwcVN7 DGWnVZVpwD72wSDvBSjuEe3hz2B 1c738FAKbRMUofB24Pf4wjYelLR IeqYXIbT6inotcm1wthqjw VhNtHQOfHLr5DIx2OJRjtTccZcX gKTC2BjJ1AIX0tCPhgV5dlLsdsl rnwZ8cCrw+MzcgWWVhcnM8 B1UqKuv8BLXpnYefQE1daMVjTCc rZs4nkMbekQavTC0gLDGqmnmsIQ OwhX9sHWBdcJOziDjcBF2v FSMnyehny789XjVbVRH3PNJmhVO nJ8RipT8kWmMjYFZfMVHoH7TgaG JdWLouG092LIrgAiG2JSQg xhQhF9RrJBOddCvsIiZ8x1F5Md4 MPM7TNRA7N0IiZgc4EPDgmAdtAK 5jkIEtENjxCk7bnBcgsOec XS5qAXQyewypMGPdyL1vLXJtnVK baUlsRT0zWXSiwpixo280IhJqML R9QEGslYRhH2TybD1aDmJx LFAyPQFuF7WwtJEvRBnzA674UIz xLpZ0UQCyasSiJ5EzZKVhvWydMt R6o5U8Pp6AWMagcQU+PC90 gn69G9MzOctuRae9XHAeVGQ5fYD 4vD8cRODcTDpts9P9jVC8F2Mfnr Vbgf2fe4hvVFNgNPmeY25j kBZnu3B5KHIhcLV3FBNcpJsiLgC zjG76Xac+YXOklZsmf2FlKstzn7 azm5mzqKk5GaGqKWNuvrSp oWsjPSI3m6DyCd02S49fJDqiTNG nSPFzCJDeHCCqiRkgqf5nmW1wOc 8+DLNfdCZ3vMO6mM0wYlBn TeU6NOacK488InPbxIBlJzudt2r zn1gvnXz4TcFaCZToudJoqJhjVB D7h9FgJc72B4GawPqhx5Sg Pjq9wp63rHYpy6N0eMF4W5KnQJR wayvagOZtoNoaWA2oTQBudpdhAP ZeoJ6mDCWwF9e4CsCtWcI7 ERtkV4WtbcT9IAYndVVeXQYedTF GgV5smyokp5vbtzwdTyJsHIHiPF z4RKo8AMBxbWseCnHkPUG2 QnC9BNU9dOJzrQ8osPgfhxeeiS1 wOyc+XVs1g9gptPTvZI3myTG8OA 53XB70jCCos1Z0zIC1W4Jx SSIyvcsdnbluxKH3DNTgMTBgrB5 3By0shTusGu3gURHnWRU8NPHpoQ JjJ1EtnI4rVoLuDKWlIVDm V3ZuiHLaKLwaM982MIhzDpR4CAA qblVrZ8ItJWYqnEnhQlM3k5X8Cg 8XXQ14AS11JW63eGQsc1N7 jGW2I2HzLQMcxdlthldjxHQ3BBO hZWTnkM10Ls4poYloKh4hDUPmEW Q7WKWqrYCuA6MgaQ3wTqDt YSAwPDVcR4RsxLKjFOoqH612PVs gGdF9QUCocwUdP1MoQYNlmNqcXm H9a2I5Mt5VCc69IA94ID28 oMOaz2Q4yNQ0Y3GuFKIkhhjvhev jxGA5SEFmYJFkyP03Xs2glQudLp 1rJFUrZCD0ITZplSJjK5Gq pZ7lSxHlEWJfLJYgI3QehQMkEKw mB842VUsnYwB8ZQWqqfUmQ6XqXE ZifGhkIeK3r2O0Ea7NTLbj bby4W4VaYsafgZZ+LI26IFPwXH1 7fIUbdBJvp3tlzYb8TgRtRCXmJA M5sWcuYFdjw3UqHVDvN85x bGF (more content not included)... Normal [facility] ED Clinical Summaryon 2022 ED Clinical Summary [facility] ? Urgent Care [address] [place] [id number] Clinical Summary PERSON INFORMATION Name: MICHAEL RAMON Age: 37 Years Sex: FEMALE : 1985 MRN: Acct#: Visit Reason: Medical screening exam; [facility] F/U- RT FOOT Arrival: 12/04/2022 12:23:36 Discharge: 12/04/2022 13:19:00 LOS: 000 00:56 Check In: 12/04/2022 12:23:36 Checkout: 12/04/2022 13:19:00 Address: [facility] [address] PCP: Thu Linda DO PROVIDER INFORMATION Provider Role Assigned Unassigned Mati Bell PA-C ED PA 12/04/2022 12:25:49 Catarina Meyers FINANCIAL AID ADVISOR Nurse 12/04/2022 12:26:05 VITALS INFORMATION Vital Sign [...] verbalizes understanding of instructions given Comment: Normal [facility] ED Patient Summaryon 023 ED Patient Summary [facility] ? Urgent Care [address] [place] [id number] PATIENT DISCHARGE INSTRUCTIONS Patient Information Name: MICHAEL RAMON Age: 37 Years Date of : 1985 Reason For Visit: Medical screening exam; [facility] F/U- RT FOOT Arrival Time: 12/04/2022 12:23:36 Primary Care Physician: Thu Linda DO Attending Physician: Mati Bell PA-C Comment: Patient Education With: Address: When: Return to this practice Comments: FriJan 22 at 11:30 a.m. Medication Information: The exam and treatment you received today in the [facility] Emergency Department were for an urgent problem and are not intended as complete care. It is important for you to follow up with a doctor, nurse practitioner, or physician?s assistant professor surgical technology for ongoing care. If your symptoms become [...] so we can reach you if necessary. [facility] Emergency Department has provided you with a complete list of medications post discharge. Please inform your molecular biology professor/provider of your visit and for further instruction [...] (M20.20) Lumbosacral strain (S39.012A) Medical screening exam ([id number]) Sciatica (M54.30) If you received any narcotics, [...] sign any legal documents Reason for Visit: [facility] f/u appt Allergies: Substance Reaction Symptoms [...] with effusion) NO (more content not included)... Normal [facility] Progress Note - Nurseon 11-09 Progress Note - Nurse Patient called and left message inquiring about MRI and XR orders. Patient reports she requested that they be sent to [facility]. Called and notified patient that the order was sent to [facility] and was pending prior authorization. Notified patient XR order was ordered for [facility] and could be done at her convenience through outpatient. Patient verbalizes an understanding of information. Reports she will likely complete the XR order today. [Electronically Signed on: 12/04/2022 14:34 EDT] Giuliana Travis RN [Verified on: 12/04/2022 14:34 EDT] Giuliana Travis RN [facility] Urgent Care Note- Provideron 12-04-2022 Urgent Care Note- Provider Patient: MICHAEL RAMON Age: 37 years Sex: FEMALE : 1985 Associated Diagnoses: Contusion of right foot; Hallux rigidus; Sciatica; Lumbosacral strain Author: Mati Bell PA-C History of Present Illness OCCUPATIONAL HEALTH FOLLOW-UP Date of injury: 08/26/2019 Claim #: [id number] Employer: [employer] Mechanism of Injury: She was moving boxes of [employer] when one fell onto the top of her right foot. 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 On 08/26/19 she was moving boxes of [employer] when a box fell off of the cart and landed on the top of her right foot. She was initially on light duty per [employer]'s telehealth visit. When she was not getting [...] History Medical history: Resolved Lower back pain ([id number]): Resolved.. Surgical history: Epidural block ([id number]) on 03/06/2022 at 36 Years. Comments: 03/06/2022 10:33 Dana Conklin MA RIGHT TRANSFORAMINAL L4 AND L5 Entire foot ([id number]). Comments: 12/26/2021 17:09 Tamiko Childs LPN right, surgery. Fami (more content not included)... Normal [facility] Urgent Care Recordon 023 Urgent Care Record [facility] ? Urgent Care [address] [place] [address] PATIENT DISCHARGE INSTRUCTIONS Patient Information Name: MICHAEL RAMON Age: 37 Years Date of : 1985 Reason For Visit: Medical screening exam; [facility] F/U- RT FOOT Arrival Time: 12/04/2022 12:23:36 Primary Care Physician: Thu Linda DO Attending Physician: Mati Bell PA-C Comment: Visit Diagnosis: Diagnoses This Visit Contusion of right foot (S90.31XA) Hallux rigidus (M20.20) Lumbosacral strain (S39.012A) Medical screening exam ([id number]) Sciatica (M54.30) If you received any narcotics, [...] and treatment you received today in the [facility] Urgent Care were for an urgent problem and are not intended as complete care. It is important for you to follow up with a doctor, nurse practitioner, or physician?s assistant professor surgical technology for ongoing care. If your symptoms become [...] so we can reach you if necessary. [facility] has provided you with a complete list of medications post discharge. Please inform your molecular biology professor/provider of your visit and for further instruction [...] Disease Control an (more content not included)... [facility] Coding Summaryon 11-21-2022 Coding Summary HTMLBase 64 TzkildpbJWi6iWr+PGhlYWQ+PE1 XDSUeV30gaPNaiQ2oM7IJPBtDUe bzYDQRUShZKxGmkzKxGA8zqQOjF XJu IC8+FY8eGUBeDmvyoSSrg9B1eDB 7L78jdn1qUMemcMS1DTDfHfKqcf elm5mweDo7FJggQhniFiZp MQPxhR01ZUM2oF11Nr32tZLagYX cr7vimXe0NlFwZZYdPQD9uCulVA ujd3IcUVKpS25wdKOxh1U4 IFPztPshwTLeFgGtkON2uU1gEYy midgsb9wwmhsxOdr0gu67mUGtt8 X6uXT3E5ZlckD9UOIxjSOb JunmhYGUzP8kfjsqn8tbxgpdPcG gKUZyAXw2INq0BUCbwKvhSwYgUA 76LFJ2XJEbslLqQ3LrYBRe kMhlFkS5r2L9Zn1BG9BSKfwqI5P NTUFSWTwvdGQ+YR25dc32L3OhSj mbAvv6BKGvOOW4vDY0uW4i IJDjQQogw9Z1lIU2H0UovxWvuq5 hh9bpXULdQSwoP72thCOvi5W8AN RgdEY8VZLziEieXdWpmS89 Oyc+PFRqvKnyz6YbWlgnq4ehd8e ozRu9UyluALAbirCrbQpaXDF9s4 ZhCm9qRSWeuQA9oMH2dK7p WySiJvG7IZkcL802PeXuyOOnCat bI68dV3MjqBV+RJXuOdx1FBTfpL wjON9qD1FoNCFftgejfPPu zDsyVI6rOYHvvjiuROLbiL9iEAQ bN7d8IzCnBaK1LMhwK5PvYFColx twRj90kC5tYpOvAkK3RCzj B3IpycN9DSNalBXmLYtsNVC6R78 ni4K7SMCqJLDoCJL4bEP9vI3ceL lnbjogbGVmdDsgdmVydGlj FWvyQZbyI938PWYunBkfBfZkYFa uZyBEYXRlOiAgMDkvMTQvMjAyMz wvdGQ+IBSyHOQ8sLddVIBu iEFnKFnxBq0awUulrLivRP1xLPR pjenmRQWswL7qPCAqoZVoiEczMZ 9nDYWbdvoxe167QiNbGTA7 IYUvkIOaN7RlcX2zQmSnCHXsQIN zC6ZxqOXxOTkmN581WPhkTbW1JI LkqmGfL0GsUXOyrIqtKaQ1 y8U9Uh6Id7YwyvpcX4TqhXEcFmP xMbykDGz8N5MbLhqsmQK+PC90YW EvYN47YWi0NPR9mUdsRUnp RCTtF8TqkC9dNyFpBPThXPHbIyf +PHRhYmxlIHdpZHRoPScxMDAlJy IsiHdyVU3iPd1hOPJcRDVs sFblqYChAyGys6zsEUJjSBvuKZ6 vrLjdK0OzvET3HNFrd9o6Yl14U1 7oG7MqrKB+GZFvaXQ5pYU5 hN4qFxDqIlM4FXvkS246NsSfrDU sRgkbc4bdz0uyrQt5LuM3WZAfsu JhkCpqGRS6b6EiUj07L44m IHdpZHRoPSIxNSUiIHZhbGlnbj0 osX0yCm5+SZOltFX2jYQ5iQ6mHk WeYpM8LLcvB596LuYttGTz Hjyyu2ysy4sduWj6TbGfFMCrcoD xhZhhNUM9w4DiMc21G6ZglFdjx9 ImWbf5jk95yXAgc6W1eCZ4 R9VwQTUnwikbkVVyqZeuBK6dFZD cfslxUEBxcK5aRKRdG9h1MrEuWz K4TPvdX9QushB0JOJpgFQj NTUmyYIAsJ2tmambz9hnunpaBvK bYVAaPDw7XHs4SRXykEkmElOxGJ D5PdD2BAG4qWXfxB9xsIwq wipvrM4yHlg+NGD8qGKslZEPNU2 lOjwvdGQ+UGXqKOJ7eNtrCBolRZ HteM9xBLGhH0g7LrKuYoM1 RCgyK8GrfnZ0ALKomDYwYNDhoYD XcS5qnnuib6penjbiDbJfUKGxEO n5BSj3VABfrDxvWuTvWTJ1 KyD3FMS4aHEcpJ2tvWzbwwbcaB4 wOyc+JdfbpKihYHR7MCv4L9KjYt f6EEWmwDoiOW2ahIIpSWqk Hv7aaYgrbLnsCZ1bSHOzfcyai53 9EbGre2dpOAFczNAvUNolWYC7V2 5sf9C7JSKpCCVwXMY2gIQ1 lW7jjGoakpmqjZSgbZleqkAdtLt uJDqfVYzvK056FWPjuLnjUlUxUO i8V6BiFrx9MXJauSrvEX3h kDHuYPneNk0orCxkhXllMQ9lPPV cmvffy697PeFsq3yxUDWyjVQkNK ecBGG3X88gq6N2EVKhFXKv JFN5vMH6nG9jlUsszvirvFXulOi xfjCksDjtUUxkOWjuL346NKMvrJ gqIuKktWv2B8VwIyx1AAWs dTllIN9dsLBiKEmpDg5xuIwlvQv hCT0oDJFimljem413UlLkw9rmVX MyvOWbWFlcGCZ3R48dv5Q4 HVXfMTCfQPW6nVF0mU3afSpgtwb gbGVmdDsgdmVydGljYWwtYWxpZ2 46IHRvcDsnPlBhdGllbnQg VXeePDe8T1MmPxpzrDA+GN54SUA kUY82zVLwjXUkm1pzkEt4HmJaWN FdLQF0wMnnCDshi1UbOUXc J49slKIrg3D8HGKusQusyPLeMeJ woXP1zX7iFYxionjyr4obcbloAj hyo9mdhd62iV77Q07mWRrn SEWePKJfYRPjFDSzkVictb4vaB5 wIi8+UCWbePR4xLG4bZ2oDNIoCy M6SAdbY495HdAvxIJhQont l2rmp0syaGg9NaM2TSPbicXmgOy rNWU6x4CvHb49E43aNXfpEIZjDQ NlNJVyBWTjbOhxyx4qyN9y Ii8+FPHwjTL6iWN8nE4vKsIaGvH 8DEykE663SoMivTLuLpdgV42zN4 JvdXA+NIXxRze3RYZshIwo TJ2zrOSzNLyuIp2cCGB7OuAhJiZ ySIxhA7GdUXSybaxxqibhrNC9DA WyKZFsrO63Wj8fcUtxTOSr zXZImE9eujkby9yqallmTeAuOEO rMUb2SCu2MDYudBmsNhGzHFD1Fn R7BZS5jADwcI9vuNrvpvfe vU4gQ5TaJWKhgogaBj13jH8dWsQ lUpP9EGffVyz+TVVMTEVOUywgUk FZFVBXPXFOXBsEEiM2U7We Nyw6QMIbkScsRI8rpXOwWPkaTa1 zrFkqqGbwWZ5xRRWdrgkkYWYgfA 5hOHIltSSzzCmqFW7fCSJd jewpj265NaAcQYF6BZIvdQQuW8F chY3mGiAoNAUzXDBqS0VfoRZeCO hmN089SYnxNqJ0ALNdnsFb Y1VoGHYczVezSnJ5t2Q3Jt4yAL5 wCz1rJBy7QW94MV79jPQjp2W3gM C0N8VqLSXhcuywklwaeKE5 PBKcMNHkpL63cYSiDVerWc4lt7F 4z577KUIkTOObxC06Cr2fuMliNG PnvGZCiJ8oqkfto0mywaut CgWoQAErOPy5DXx9ZFDywMseShL rGIJ4KwO4CYD7lHXflO3zrGsldc plmR2hIcx+MzcgWWVhcnM8 P5WcHju4BPRmjSrlCG5zeLIjNHy sDs6mwXlzhIlvAK3gJYZoxdozAM PzzR7bJJVjiZDqqAanQX0e APByezetz398IdWdQGN2QPNboDI vL4OtmQ8fWdLlYZOtIGXcJ9JfeG HpXAhvV075HRzcTrA2OEKl yaMqA8ZhGZBcuJsiJhA2k2G5Ue5 ULB3VZXQ5J3DsKga9LSZgnSraFN 6zcHUnYUwpKz2skRtqwTow IK1eQZMatzeqXLBxbS6mEYHouJU irRkaUS0wOWPgujbun402OhObBX W0LPAkcRYyR9BajE1xRcXy SAGhYEBiW9NidRShPVwlS833ZCv yPnL8QDSlrxAcW4MaSTYbkYkqWk I4j2L3Oo4VUOmaiHZ+PC90 ix10C0EyMuybYuc3HJIcGLP2hNG 5uB0aTPMeYCloi8X0gJG2L2Vczv Xmrm1bh7pgUGEyIFjhV62j mMDtl1U1GMAukOC1WJIunUdsXhY wwR12Xev+UGSbkQotx1AfItoog0 pvm8tuoGc5MvDdKBBdbrGj fGsnMCI5f6DuAc75L69cXHjhYDD uGDMnVTFrXVIisVvihy8zmQ9vRq 8+FBIiqEJ9tDI9uF3tJdYr HyD4BXqkI098FdRpmUKaBqcxe4y xm2iutQh7UdOnUNJvbrFylCruOX S2w2HqWc10Y6ExpMdax9Ck Gdc9lb75tCYbv2G8nQN1N5EsZTE zxsuwnSHojBzaFR7jRZGulezoLM EpsF3rALXdT6p1JmRuXyK2 TXecB3GbctF9YKKktFOgMWHebDA FmZ0jmtlku4ltjgvcUqLdGQExIM v8PAy5NZFzfYbxHqSxPSQ1 MiN1XVE4rANgyX6tfUjzidmevM7 wOyc+PJm0p7aviRWkVR0keQJ1XP 07YA98rQIfe8E3nMS4W2Uy LUWygskzvrdxrVZ7ZLMbOJYtyL0 1Vr5maDtyEs9bMSQaHGJ9WZTkfU OjV2YvcN3fJkLmYBVnLMHi Q6SibJKsHCvuG638TNixBcE7WRU hhcXfJ7SpIIZhrSyrUlJ8j3L4Sn 3MGB34IR41TU30yYGsf7L2 dQV7O7ScKIQvgrqpcpznyMG9XPO jTXCttC94Yu5bcAbyUf0bJZClZY Q4FITqlMChJ8CgdW3sXhKv FTHyEZAfY5LtrNEtGPilX375UWr lFaO3GNGhfhOvT5OlGNIfwSbgYa H5o4M7Qd4UFy21XQ46JL11 wWNgs7J8bLV6I0UqMFJojtmhgoj pyLH3NHHkCLYknV92Bo8tuJnaMg 9fSNImNJX8RVCwtBYzW1Hl dW6sUyDbMHPyIJQrT7LhdHBgVPa sN777XZesRwB4IDOyubNhA5IyER VfwXnuKzV1t2K8Bb4UQVzv pec4U7ZbWocpxRW+OM46BOZsJT4 7jTYpbGAcq0vhpVw6LiCsKQMsXI G3eObbKUplf5RkFRLrZ49v bGF (more content not included)... [facility] Consent Formson 11-20-2022 Consent Forms [id number]#1.00[facility] Controlled Substances Agreem entson 11-20-2022 Controlled Substances Agreements [id number][address] [place] [address] Progress Note - Provideron 0 11-20-2022 Progress Note - Provider [id number]#[address] [place] [address] Provider Orderson 10-24-2022 Provider Orders [id number]#[address] [place] [address] Release of Informationon Release of Information [id number]#[address] [place] [address] Coding Summaryon 10-10-2022 Coding Summary HTMLBase 64 BzfrwnlpGTb0sEe+PGhlYWQ+PE1 VVCBuS44quUWbpM5xM8KFKIhSPy mhCEBCYJnQJhVficVqYD9eiKDsR XJu IC8+WO7bOTLzPutdjNYwb3V3rYZ 2W95flp8tKDlbbNL8MWVdQqIyaa twd1okaVa7DObyOlbaPyId MDKmzH10FUZ2fE73Qi98rMGfjBB es3xsgEw8RyMeXTKqTRH1bKsgWV myl4AnYIKlX74psXLex4E5 XLTvtLciyDXtNxAnxNB7sK9xFHi qdgnly2tybtfgIuv5io40mWAir3 K9cEG5Q1LvceB9EAXjlGIf QvxfxTSNpF9yeoanb8usmdaiWdN kPUUeWGl0AJj5BBBtyDksSbNbHB 67TNV4SBStprGtC2DsDJCs rZgjQyD8z4M5Qr6EB2KVFqweM5V NTUFSWTwvdGQ+NS96wf87F9FfRd lpGpv0FISjRXD1zFR6oH3d EEOdOCvsp4O6iWQ6F9PiqhOssn8 me7cpRLYyNTwrR88lnGHvs1V2AJ ZyfCK5XYZmyGeoKiWdwR13 Oyc+UCRquKmkx1ToHkgau4qyr4i rjXp2VfmfZZLkdeKesPzdIHZ8c5 TxAn0hYHZfoTH0lHV4nQ8e OaNpEgP9EKkxW209NlIenTEeAfd gQ16vW6EzbVK+WVTzTfg0NELoxR woCU8jH2TaPJXhasheeVUl gKdpNY1wVIWlwqnlSRXhcV8tXGL wD0f5CoTiCmD3ZWhqX3JhKBVeug plYv41fY9aUlDrBeM9KVwo R9SadlS8QYRlkQZuUBjeAKZ9E05 nu0F9ILEnQLNbXEN8yNT7aT4sqI lnbjogbGVmdDsgdmVydGlj ASzlROikH813UKNcgDldDnMnWXt uZyBEYXRlOiAgMDgvMDMvMjAyMz wvdGQ+OWTbSQF2bXbdKXJa aZKmWTcpZw0mzKcoaXhnTZ2oRWG iqzjpAUDbcV7gBWJbdGOrcDwdOR 1tUYZtxzpes848HxVqCOP6 YOMbmNYwS0BgsA1yCzQcRFMgMKN eF9WaiJUnRFweN567PUkmYyI7ZE LoqoWoY1VhCQKyhOalYwH8 q1P8Wu4Lp8GbojmxE1GfbOZiLsJ uNzanAAo3O1HlTjdkxBS+PC90YW BbJO88WNf2GKU7jMpsMIuy MZQyA6VsrE3sNbCeOFVaVURjQic +PHRhYmxlIHdpZHRoPScxMDAlJy SusFgiSQ1dDf1gTOFhNGDa fWrjoQKyAmShs3egOOKgRVadBN4 qaPjtF8BsvLB3JAEoc6e9Ds72S0 0lT1SdaZH+FUKvkHO2iEQ1 sK9lGuChOlP5AOncS885BxDeaCK xUpeaa3grb7hjrTd8HnZ8SVOhty MlbNonHYO2a2NoSt40D58e IHdpZHRoPSIxNSUiIHZhbGlnbj0 rcZ2rVz1+AWNkkEV6cQG7rX9tUc SiQqH1BRibZ386QtQrePUo Jxspa6any5pqyFn6YfFzFXLambL koQhgPJZ8i7LjIm47H9WcoGkgp3 FsZru2il34xFBes9G0kOW5 S6EgSYKtjxqhoBNvmOqkPC9fDEB qwldmVRUjkY5vZMMwF5i3XvMmEq T5PLzzW5HbkcZ1ADEuqAMy DMBlbSKHiB2airzfw3npgzwaMnG tBXFePMi1UGl4DEUgjAqeFzKlQA Q9MkB2FSP3vDPgiZ8ybJft tscrpS3rUvb+CRR3cVQisQSUMO1 lOjwvdGQ+HWTpZPH6vVwsPPgvPO DqbQ3wIVFpO6v1YcUqHfT7 ERcrZ2NuaiI3TETlmHZcKQVliYD FwS0dpnqta1nngovaFdInKUYhWT b5ECs6YIXvhRzaSaQdZBJ6 FmG8EFM3wGLydS2qkKcttmnxuC7 wOyc+BiftrCkgGLV8HFl6D6LeWi w0JIJzbGwmEH2hoYJsQMfe Dv0rzMojbBmaBK2lUNFrjodfw67 9GuGoc3bzWIAbuZStDSrcLAY7N8 1ym0A2SBMhKWRmBYC8uQD6 tV4uzPhcfxutmLHmeRwzkbAzkAf nXJrpVZbaO813CQTawPuwBpMzAJ k1F5IbSni8MPPvcAsoJH1c xIIkLDkkKr8iaCpseCqyDT4yEPO mvcloe740SgGte6srJVYlqMJnAQ eoJWX1R28lh3W0PVMoXAMb XZP6yZL9uP4jjRlfsvknjFFqfBk lgzWxuWliJUooAVduO377RLCwnP elOtRasQr6J2HiEfj8ZLHn aDocAD7wqTMhVIiuAg4dyYfonLv fVU8dVLLrlfmpm400AfQkg7flVQ VvrSTtPNpiIXO1Z36yp1I8 XPAmWDCgTDG6vOH2zD3wjWifdaz gbGVmdDsgdmVydGljYWwtYWxpZ2 46IHRvcDsnPlBhdGllbnQg JTptFYj1H7DuUspghMH+DR19NKB uKQ90fQBlsGXdf6pibWg4YhQwYH CrDMV4hKiaXQkbc7AkTGYe P34qhEHuo9D3RIGpmZuegJNmNeD zhWR2yU2kJHaprewgy3ijlwgmWo mtm8wehx95wV85K47zEXjg FJRvXQGeOLAkJSAjuRjiwi5abR2 wIi8+NXHhxIT6eAB3sW9aAKAqAy Z6EJumW064VhEzuBBfJpot b5lyb9gvxJj4NaA6VBSrseLiwCk vEUV7i8XgYp47H68jQHdbSDHkOJ GwDQXbFSJadHpjyw0saJ1x Ii8+NSDrxMT6aMG8aI1zEgUvQcE 5LEbxF422ThRooBBmNhtxX32iE2 JvdXA+RYDhOck5JWEwvAnn UD1xoZTtYFlgGt1tSMY3YjDaKoE fVLouD9NkDGCumrtbfwujwPO3GZ DnVWKumS33Yi8blMhhYXFn xGLSsP3pmuqfn8yqbuatZwYlMGX yIWt3UXd1NEZroZnlTyEpHDG2Pz V9TAH7vOBptS6qdLwqjyyq pL1fX7JiDIZrudwuBj61yW3dKvW bItZ2TTzkWbo+TVVMTEVOUywgUk EVMEDYQITIJGrWOhF8J1Az Rzk4RXCuwGzoGO5yoQVnMFmjIl7 shEibpFidDX7eQDPuzeurLJWkrY 2qTHRqpKYtiAcaNV7fCKEw gfirs171HyNxQMT7VWFtsOMbP9K ypB6pRqGbXLXiFFWpH6PpuDCoGJ mqO628MQttCqE4TLCzfjLr C9ZsZVTizNhpEzN7d3V5Yq8dDT2 pMr3uSFe8KI77YN86yAMit4I4sI N6M5TgRKNgunslowmjpEZ6 VKTlVHWpdS09xFSzLCrzKk3bt7T 9u065FSUoKGGekQ77Dq4fqJdgQO TmuNXRwC0pkezqg1hwtzvj YqOwYMZtUBj4LCf3SCBprKwjYfK bAMV9ZeE2AXK6uZBniT4upTuuxe xobL9fEis+MzcgWWVhcnM8 N9SzSxc4RRDwmOmxDY3juCXbLDr qLr8srBhgpPcoGS4yDBZrojkhNZ QmqQ5dHEWrwBVrhYcfXZ9u ILMijqhkg196JePpWIT1WFKkeJS bC9IhkG6nLhRdMXWoGDInX3WfeC UjEDklS804MHhqLyW8CHZf vpYjM8ZeSIDopDpqGwC6c5E1Bg6 SRD7KWWQ1U4KlVng1AMSuaSuaCB 0wkCWgXUypLd7unChcbCzd LH6dHNCemctmBOSbzI1uAYRxzRV xiExyBV3jWNPbgymub786RvFtTL I1PNEhrMNiH3AetC2xHjPb IGSiUTLoK0VkkQEeRTakB364RWf cSeE4XUJvmyVlI8YhQNZgwOknIf S4t8P1Hs9ZTLjjeQW+PC90 qa95R8UvOjgmXfb8URVcVVV0bGE 6kM0kBLFzGBynn5M6jGS9H0Awce Vsaq3lf5lgOXYpPCcuQ61a mTUnj2Q1JJVrtQR8XBRpfRthFnT egM31Dzf+UAWliNouh9VbWmbsp9 owj8cjpKu6OlMpNVZsdlXs eRitKPM8e1OpSg73C11tZVzeDEP wQULaDCOgWCPyjHbucc0ymJ6iGy 8+JOKfkMX2eOX5mJ6cRyPz ZiE8BUcbM713WbDswMGmSjrqv1a ko9wczCd0BnDbCEPrfmMhhRzkMU Z8f2FoLz45O6HapVszk6Of Pxl0vm30gDPxw9B6mOA6Q5MwQCK tbgmrrYXxnZelZJ5xITWmrnbaLE BblV9oBCPyK8d6PbRfCsO6 RZflG8OepdF5WWNmcQRsVERbpTC IzI4koieow1ofqbucPtAjVRTtZC n4KXc5FWNktTltWgPyBVP0 FjR9HPQ2mVFnzF2vgKvypfxhbR5 wOyc+UGx6w6xiuUFbKC3blQQ3EU 07BI59yWAry3U4cAH1D1Rd ZNTzhbmrktghaIK8MYXdEHGlpF4 5Zq3xjXcmPf1sZWMtECM0CWYlyL BkM3MpmT8yBcAuTDLtFWGv P5TgkZMhNYpfU000BRipXoU2OTP gfcMeH4VgDKCirKkuWgW7h1K9Wd 4WNU75AY03EX65mKAne4R2 sAQ6I3YzNTGdayafgpbvqVC4BKQ gBFBfoB86Uk9bxTgaGk4gUGAkDS L4HLVidZXmP4NjwM7hBwKo AGJtLDXlY0DkcDJtIMjyL743JHv mIiZ1XLIrthDiO0SsVQAhtHfgTe C6e9L7Ib0PRi14PG45FD69 fUKbf3U8vUS9L9CuZYKnogrkavj crRA8DZTfVJOyiU58Zz7rxTtxEb 7yYIQoFDB5CRTszTFfT0Bw zS2bBdXlJUAuRCVoI8TvqSUdDXw tH699EPytOxD4UZOinrKnA1XmKG FwfAdtIuE1i7U4Un8ASIbc bem7R6IdTrydnDS+LE13DBGzDV1 8kJZqcADan2fkyHb1HkPsYALvEC J2tEadURmna7XhEOZvG45f bGF (more content not included)... [facility] Miscellaneouson 10-03-2022 Miscellaneous [id number]-03-[facility] Provider Orders [id number][facility] 10-02-2022 Outside Records [id number]#1.00OTGT[facility] ED Clinical Summaryon 2022 ED Clinical Summary [facility] ? Urgent Care [address] [place] [address] Clinical Summary PERSON INFORMATION Name: MICHAEL RAMON Age: 37 Years Sex: FEMALE : 1985 MRN: Acct#: Visit Reason: Medical screening exam; [facility] F/U-RT FOOT Arrival: 10/01/2022 11:44:26 Discharge: 10/01/2022 12:49:00 LOS: 000 01:05 Check In: 10/01/2022 11:44:26 Checkout: 10/01/2022 12:49:00 Address: [address] [place] [address] PCP: Thu Linda DO PROVIDER INFORMATION Provider Role Assigned Unassigned Mati Bell PA-C ED PA 10/01/2022 11:46:30 Catarina Meyers FINANCIAL AID ADVISOR Nurse 10/01/2022 12:19:26 VITALS INFORMATION Vital Sign Triage Latest Temperature Tympanic Temperature Temporal Artery Pulse Rate O2 Sat 95 % 95 % Respiratory Rate Blood Pressure /95 mmHg /95 mmHg MEDICAL INFORMATION Medications Given: Allergy Information: No known allergies PHYSICIAN DOCUMENTATION DISCHARGE INFORMATION: Discharge Disposition: Home Discharge Location: Home PATIENT EDUCATION INFORMATION Instructions: Hypertension, Adult, Qiic-hz-Vwys Follow-Up: With: Address: When: Thu Linda [address] [place], [place] [id number] [facility] () Within 5 to 7 days DIAGNOSIS: Contusion of right foot; Elevated blood pressure reading; Hallux rigidus; Lumbosacral strain; Sciatica Patient Understands: Yes - Patient/family/caregiver verbalizes understanding of instructions given Comment: [facility] ED Patient Summaryon 023 ED Patient Summary [facility] ? Urgent Care [address] [place] [address] PATIENT DISCHARGE INSTRUCTIONS Patient Information Name: MICHAEL RAMON Age: 37 Years Date of : 1985 Reason For Visit: Medical screening exam; [facility] F/U-RT FOOT Arrival Time: 10/01/2022 11:44:26 Primary Care Physician: Thu Linda DO Attending Physician: Mati Bell PA-C Comment: Patient Education With: Address: When: Thu Linda [address] [place] [address] Business (1) Within 5 to 7 days [...] Keep all follow-up visits. Medicines ? Take vktx-tms-mnkflrv and prescription medicines only as told by [...] ankles. ? (more content not included)... Normal [facility] Urgent [facility] Note- Provideron 10-01-2022 Urgent [...] FOLLOW-UP Date of injury: 08/26/2019 Claim #: [id number] Employer: [employer] Mechanism of Injury: She was moving boxes of [employer] when one fell onto the top of her right foot. 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 On 08/26/19 she was moving boxes of [employer] when a box fell off of the cart and landed on the top of her right foot. She was initially on light duty per [employer]'s telehealth visit. When she was not getting [...] History Medical history: Resolved Lower back pain ([id number]): Resolved.. Surgical history: E (more content not included)... Normal [facility] Recordon 023 Urgent Care Record [facility] ? Urgent Care [address] [place] [address] PATIENT DISCHARGE INSTRUCTIONS Patient Information Name: MICHAEL RAMON Age: 37 Years Date of : 1985 Reason For Visit: Medical screening exam; [facility] F/U-RT FOOT Arrival Time: 10/01/2022 11:44:26 Primary Care Physician: Thu Linda DO Attending Physician: Mati Bell PA-C Comment: Visit Diagnosis: Diagnoses This Visit Contusion of right foot (S90.31XA) Elevated blood pressure reading (R03.0) Hallux rigidus (M20.20) Lumbosacral strain (S39.012A) Medical screening exam ([id number]) Sciatica (M54.30) If you received any narcotics, [...] any legal documents With: Address: When: Thu Linda [address] [place] [address] Business (1) Within 5 to 7 days Medication Information: The exam and treatment you received today in the [facility] were for an urgent problem and are not intended as complete care. It is important for you to follow up with a doctor, nurse practitioner, or physician?s assistant professor surgical technology for ongoing care. If your symptoms become [...] so we can reach you if necessary. [facility] has provided you with a complete list of medications post discharge. Please inform your molecular biology professor/provider of your visit and for further instruction [...] disease. ? D (more content not included)... [facility] Progress Note - Nurseon 09-07 Progress Note - Nurse Patient called bruce uesting a refill on diclofenac. Order is sent to Bia Goldman CNP for approval and signature. [Electronically Signed on: 09/17/2022 15:26 EDT] Dana De Dios MA [Verified on: 09/17/2022 15:26 EDT] Dana De Dios MA [facility] Coding Summaryon 08-15-2022 Coding Summary HTMLBase 64 GhtlksxiPZw4zLy+PGhlYWQ+PE1 ZXUXrE68swFBmeB4wY3CSINeLBz eeGMPYKAyQVpXzzgJrCX2ekBZyV XJu IC8+CQ5uVOFuTdntrFQlw9K0wWR 2E87avt8hOYymgMS9LHSoXpSfax xjg0othMl4HMxkMbjeIuBj BUVptM19ACE1uT66Py13lERrfPM hr6sboJb0MhOgJMLbOZM9aZnlVK wdc8MpZTVwL90uyOXnz9S3 FXNhxBeyrQYsZtGapHS0iH2iEBm bwbxij0vmsgyvWuo4yw92xYVlf1 S4xAO8G7NvnnR8QBXlyOXu DbumkUJKnF8cxatbx1rbzsuzLyH yLYYiCMz2RQo2HIQukVnyMgAwAT 38TVR8AGJixfGpO1NrEURl sRbiBxU5r3C5Ln0ZE0XXEmagZ0M NTUFSWTwvdGQ+AB68zh50E2NtOj iaWqa8XYFrMYC7fEA6mW2p XCFdKCqlp8W0gNL5M3QlbdFdbn0 ng0mdVPJnBLeeW99zrCMyp2K5KP WqcZB3BLYqnEpjAuLijV59 Oyc+YTUtaEeup4ZmRxflv8rkj3b phSb7YkvfEVDkxwSwgAshKJD6b7 YzEk1eVJSfqEU3mCE4yQ8d OdKmNkF7CGbxP888JuLzaZUyGup nS57aM3CllFM+MFAqMtf1LRVbcF tdCY2pQ8RvUOKqzrkcgHOv cVqqIL5cHJCjcitfQPNztE3pYFO qD5t0AvJhZfT0ANrcJ7NmFKRumy ceRp93oT8lJbVwBgB6AJfu F9SbjwI9WEYpwXIxTGxaHGL7A86 pr4U9WFGfNJUaMRT6dKA7nK2huI lnbjogbGVmdDsgdmVydGlj JZfxMGhoI129ZXFzyRmrCkOuSQn uZyBEYXRlOiAgMDYvMDgvMjAyMz wvdGQ+GTPjBHR7lCvmAYTv qJPiBOvsEf0bsAiybHroPM7mZWV phqglDPTmuH2gFBGghKAswFskCZ 9hEALbwummj744RpBdSTU5 BMEzsFAgW6YccE5iJjFnNERfUOE eB8ZaxRDuCPqvG200LDwbQnY6PU UkhrZcR1ErZMQonPnySeM5 c0J3Qv2Jt2ZgjpvcL3KwmTDyCuC aKyusAHv7Z5NgTiuwnED+PC90YW CpCD50OLc7BLL6uQwwGCpl OWYbL7LscS2dSwRuWEIiCVSmGim +PHRhYmxlIHdpZHRoPScxMDAlJy DfhFdzLE1oQo4oRSXgXFJc pGwtdALmJuYfe3wsIPXpUCyhQQ7 wvJqrL7JtyIQ0GYZvc9d7Va64X4 8aY9HttWN+QNRzdAR8jMH9 uO4qNkUeBfN0SWcrC746TdHffFA nGlmpq8ayn6cnmCr1UzE0AQWaea GxsCcdDRZ3s6QyQq75V58l IHdpZHRoPSIxNSUiIHZhbGlnbj0 inV1gNv6+AIWlbZT8bWQ2qE8cLa WlHjN4FCvgB012CfTsvFMv Nndbs2ple5qooWe5RfVsMNJxthK vqXapEWH5h5FuYb08I6AyqRufj0 LlAnr5sj71rYQat7B3wGG3 U8WwAXLsacbmlMRfvOgfXU2nVVE hkhnfEVRdlQ3qXIXtE7n2XdSsUo F8EKceW3PgliX2WUVkeBZn LNOhiAQTbL8cyplvp9lnagghEcX nXJAyUDf8GNi6CDHsrVjjHyPtKW P9QuL0PWJ9lFEiiG1kbCtm atqiiQ3zLpd+GLW9uKGzsSDXYQ8 lOjwvdGQ+JFQvNPZ0aEdgIXvuWH PxhA5sCZReK8x9LrWmCeI0 GJaaK9JlpkC8DQSmiGKzHOElkZR GbL1wujzlp1gaapelNpJzRFDqTK k4DPv1LEDdtAuxExDnYTE3 UsN2JBW3oWQlxM7wvQcmftdjgA0 wOyc+BwkqmWglCYL6BFl9V5OuZu c6IXSvfUnwGV2neJJjDLqy Hs4gsYduiYucFK5pHPLtgsrbn94 2LoQhi0vpKTLwyICqJYglLMU5L8 4qm6N0OWSuFITfZEQ7xZK2 iH7wuPuseenrwTWxeCwaihLakWh gEXhbUTxuR325QBLqlKtkEwTgNR o3P8BcLon1GDVbeKlhEU0f vRAyFLctGg0ccQianEshCY5uVMH ipbdvr054ExFnn9qtKITvdDLnYX zpYJG8B36tw7T0LFLbBOBl DEL3vMW5wF9lyXafcdyveMYwoHv fldWrfJuaHEmkSBocQ524UAMfyL ewFlEfwLu6R3EmHpn1WGJb mVmlFJ1mlACqDMkjIa9ygJemjHj uAU2kCSKimrfbe056IsCvu3dfFE BqjRLiUZloWSI5G01nv3B4 YZIeXJHaTLE8gHI9nM4ctEwbtvd gbGVmdDsgdmVydGljYWwtYWxpZ2 46IHRvcDsnPlBhdGllbnQg MTdhIRx5C3AaIzovxLC+QJ42DGH sXI41iDUjqVKcg1cdvAt0EjYhVF SbBQL4dBwmGSvgf2FoBZMu H21fkGGfi4O9WZWkuJujyQVpCdC fiGE4yY0cPCoehnrvw7hdxqfdGp gek1mrpq80aV96Z23aSUhi WGQqJORcTMBbHFZuxCbfro0caK8 wIi8+KDFybJI1nJT0tK9zGNLqWc V5RJkuW538XxCwxIFmCckn w2ydz0wooDa7KiS8KYUnjlMayYi kICD9m8PmAe67G47hXSalKCOsJQ WrSMZuATXpqAzbpr1hsV0z Ii8+NZUqqMZ8rLP9lN5nFqSmZoJ 2RCrzG286DiQuyTWhVcicH76aG7 JvdXA+GVOqVfy8UQIniItr ND0rhUMzKNokYk2wTGL6DwXnYyA iAImwW9CyYRPnasvjpqkzjWC1QJ IwDMWukH85Iz3pcEqqQJOd pEWStL1chfncu2kfoxjdNhYjBMA uDEu9RSr6EOAlbFmdUrXqOOX2Jr K3NPO5gUZqxY1viRkqpdiw eY3oA6IjJSAxxnhbMs55fE6hRqR kNgV8AUjkVpf+TVVMTEVOUywgUk WIEURJWLFMEPjTVkS5G0Cq Hqi3EJLelPprIC7uzDKyBLiaPg9 sxEbqbXoqHD1eZVDtvqwhFUBqgW 5pJCXnqWScuYosWK9jSFBb dmodi767KxIxMME1XGSnpTKwG5H yiY2bZmKbLSWkAQJqS1FapYGgWI mkU688KVzdExO0MGWymbWg P2JwGENpgJarTpE6l9W5Wr8pKE5 qAn0iFUo0AE55FM78nPOlg1S6fG M6D0RbKOJopnepjmpmvVP2 SCSlUYYwhI25iBLuNYeeSt0fc0L 3u099HAFcDAOsxQ39Zz2baVqmIS VbyKZEtH1ytnmig3lzxpxa TzWiCGBdWIf4CGd7LQXtdBlnGaL jCXM4TxX8KHE0eKPamO2uqUutok zwyL4gMgo+MzcgWWVhcnM8 J0LtZbn3SAQzzXtyIL7thNTeXWb bXs0igXggzJfoJO7aHOLvksjeXV WnaP7fEHUtsVWxfQcoCO5g LEBrofhdu666GlYfCKI2YLQisRG tR2RtuY1pPlDvFTUrOFUtY2BcuK RkQJgpN218BMcnPlK4IFSi vnMsG6LnTVRoiAwbRdL5p6B4Sc6 HGC5DVUD8I4HvXzg3LHSblFvcIE 8qyANtMJraSj6rpXipnFpj BW8vICWivkttSJRqzY3hWOXniAK pfUxeRM0cSQZnmapdw052KoSkKY D0UAWaaMKpU9AzyJ8zNdAh VIZaNIMqH8YnxORzFYncE331YUs xJtF0MUCjieCpN4KlFXVqkEhkOl M0m6X7Ru7KILM9kbIrwlxn T2Z7tPW5wKCtoXwdvUZ+WD44pn8 6P6ZmRoeoQzh6CYJtWZN6yFP2yR 8mLYQfKOngs9P4lVE4G1Wq fxXmec0eq7odGAYcPDklZ97vwLO yi4O4WZVibAK0AESvrCusXqIfrI 93Oyc+UOYczSntq2BqMmgn m9naz3utiVt4OkIrCSFhvfCqmYb fWDV0f4EyXn56Y00qZFfySQPkFO MjCTMaCNMazSdwpn6xpM3n Ii8+ZPDflDZ8iBJ6lJ6zXmAuRvP 8YTyfD191PtGjvLBsPkbhe1xuq2 eolTs4OfFtAMBwdoWgnYao LVK2a7MyFu22K5RzdXnym5FuDij 0vf16uUXzq2T6rPN4W3MzZNImou avzCXlvRccBW1qGALfyiji AUOpqQ5gDIMjW1v4KiAoMiF5UWb yF1CpxhU3ENOdxQGeJCYgzBKNhD 2prgmlg3ntuyfsNmZkCKFk WKj1NXm2TNCheAxjGpCzYXH6RiI 3QYK2bWRkxO9xxZhmwgsheJ1oMq c+HOn0y3zixZCiOQ1pfAK8 GH97JI37oMEyt2A0nMB1O6BhSOS zsukwpqigyJC1XLUoLOZduJ84He 1egYgnJw9vBOUmGYY9QDLv nYVyW8XtqN8jLmYtBULfMPKkW5L ekJGaNYpwF479NMerUeC5OCFcuz EcT3LxYKFhhCyhFtP0g1I7 Sj6WEY83YD10BD67oYYyl6B8oAS 3H4EgFZQiuzhwfymnbIQ4ELFvNB VdcN86Xu0xeMugXr7zJLVv DNP0YRNugJBxK5XaiB2kHiKoAOP tHQEkS3IunVOqYHixI145PPxnNg Y7NYThbiRlT4CfDKLcrDra ZoW4k7H2Do3VUu43OE82DT78jOQ ae0A8lVN1V0NmXNXezzajhwinoB V2NXLrXTUhtA39Wc1ppYge Xw4sHJWkUZN2LQSdsVMiD5AhjX8 yDuKpJIJuWOQtO5GdeNZmHLpcF1 48XUziJoP7NEGaxfEkE2Ef QXNnkRomJvR0l6H3Kj7HWYikfvd 2Q8WwRaagcMQ+QA10JBTsNI71hX FekDLuw1nuhEo2NmSxDCHh IHN (more content not included)... [facility] Provider [place] 08-09-2022 Provider Orders [id number]#1.00[facility] Billing Authorizationson Billing Authorizations [id number]#1.00[facility] Provider [place] 08-07-2022 Provider Orders [id number]#1.00[facility] Progress Note - Nurseon 07-10 Progress [...] [Verified on: 08/06/2022 08:00 EDT] Deena Silva [facility] Provider [place] 08-06-2022 Provider Orders [id number]#1.00[facility] Coding Summaryon 07-24-2022 Coding Summary [facility] SfiwwfjwAMq2iJv+PGhlYWQ+PE1 PNLAmV63frLQdqX1VW7tPHJ8FGK HZZDRLFA5DJF3cmZQ6KMofS0Zwy iAv SzndjHWvJM74QFv9SHJ3pWbhDYa pyZ6plROmV7y1BmLxOK70hQ73BT zeTYErOeY0SvIfsoovbRIx D9vtAxYgdVPoUeg+PHRhYmxlIHd gDLQuDNpzHNDkQxKfdEvgBF7hKb 9yZGVyLWNvbGxhcHNlOiBj c2rvQSRuQScpPQ3spFuuZ4LfnGM 2OTAje0x7Uq95uIO+MZZiPWV3zK muAUmvi165VoOyv1qfGZW4 cWEzMMwoGRK6N36nd5T4PKEuRNK zTWC3nWY2xA6xtYwozwwoZ8PleP GtUwO6QPX4lICkoF3pdNbp fvxmhM6vXgg+H23YOS0GNXUJBP3 JBgz8G7PiHikpvYB+UG09HORvJI 13iCGjnWAyg9ratVb9OnCo GNUfGLX0dNpxAJdnw1DsRSPvV08 gjEOex6T8EJSblCfagGNdLlWlbG V4aQ9qOEzdidlxi2voizao Yoilh0xkmx89dZ00K31mFKudCXM qTVF3HWTpLGLypWrvhu5ioS9mTy 8+AWkow9znm7dleUl7UeMx KEJxquSojTghGWI5n1GySq64O2B tzCpga3YeQbh4ku92lFDpt3B5lY E1AZejXJBpkI7eLYbfBlT4 WXIcJoXylL91yLLcKOkrAc4dzEo caOvbPT4lWPUbzplwIVSxfU6pFR VkoSJfbHvkFK4kFIYtndkw p973NsErECF2AAHvgLXnV1DcbB1 eJkJyGKNcHEKxT4JbgRCfZXgqR8 88FNwdRmY1YCWxkuZgP2Ca SXCziQbdRhV1o8M2Dn2Cg4Lkimi xADC1PUbwZCR6NzD2MuClGmI4Y8 JpEfu3NUXlpCspQP4lO3Ip SCBhoqcbvmwxuKF0NYPhXIAkeU8 9dFWyQZwdCw9kq3S2k512KOHbSF OvtI79Rp6prYmlEMMluKSY uT9ryzjnp8mbxgzhTzIfKXFsLMu 1FMv6HUViaSigYgXaHRU2SkH7VA Q1aVRqjR7pwOkufmomfC2d Oyc+M63paE7rZMI3FGA0qlwvLZW ybrTtXT04AF64F2HfVjfbrLXruJ U+HFAgrxQsfZinYF4qZjMk a2vki7EwRGuhK7DgNYEqBNvzSsp 7SNWaNGY9tCZ8sE7lVWYtULaer8 Q6vWL1D6QgzcWipd9pu9kn RTReSLhiX41haPWiu8Z2ZKCcmQA 2HRHkvQbuHhNzzU73Kgl+PGNvbG jbv9NcCbxfi0aqz8wmvUh5 UuUrNVJcplXvbMwpYJH9d1RcFs4 1C88qAVntPKDvNAQtCLGbLQLhdT sjsp0wrE3iBl6+PGNvbCB3 jFF1uM9mECXlPgY5WYfpI053MfR urDJoXaems0tqk7yflVh3ReLoYV IgedMstMwlIOR5l8XiXi03 C58bXAgvBAAoEFOwUOLkXRFmkNk mmm7nwU2vHw2+PS4kh9qltz01gZ 48dHI+RBZvFKG4hVbpDAdt PQBydT4lZBfgYhB1QTTfAvRxnL3 8kXWyBSgmLf4ktIzpvOlyQH3uRX Ojysjec147BdJjh8edSEAl nFNhBYweYXB2B96ri8Y6KMBeCXL xGYY5pPV9nE5rdMsunejmfISjkZ fbdjEgbFmjKBemRCfiH553 IHRvcDsnPlBhdGllbnQgTmFtZTo 6Z1GyOkr3BRErvFqxQF8dyUXxJO bhEs0tgNztzOpvJZ2jPKTa rmvxu684QxXnu1gbZMBbjHIsOZi zBLL2L24dk7P1HPTwVBUrVCY9wE C6zD8hqBqtznbfjIJizWwg kvFivPjyQCjbJUwpX156EETkgLy nFnUdgyVvBOZazBV4CN35WM42nT Qbo7W5tKT4U4EfJQYegovq qbwxvLK4JFAvXREeaW27Cm2mqHu jQb7rMYImRFF1LKSksANoJ7HqnX 8xReQuXHCeTYItY8HjzDPu NGjtM086PQtwJcS8WRTunwOlJ3U iLWWolMnpZnT7s9D0No2VA0E1MI 87GY74aCGeg8X7wES0K1Fy KRKmacumklaymXU4ULCeZSIdxC5 1Fm0xaTicYb0dPKOnEUL4MOJhmP JrD2OwcE8gVhPlYIZaKPGw V2PboPGiGWzuX785KLijPvI2UHP drxAiS8OgDGPkuNkkBmM0c4L9Pe 5VHVt9HB37SJ45cQVun6I8 iYW3Q6DhFXSnxjaztobamVN3XPC gHYBthP38Mk3raNtxNz5eYKQmEZ A2AGEbtIOfW2ChpW5sFpRb ETGhJERoZ6MjpNWkHQohL535PNc uFlJ8DVRgncMgH3YqBFUicIeuEc O0y6P9Sk8SIWHhYO13ZHC0 jMA2WE76XN47M6FiMxixiLTfaDH +PHRhYmxlIHdpZHRoPScxMDAlJy ObqGatAX9qUw7xXSOdVWVu tCavpDMtKfSkt3ujFIDrAIakMW9 zyDtiA0DoeJC1IBDsa0b4Lg79Z0 9sK1UsrYV+JPRghCJ0yLW8 bU4bGuCqLaW4JZqaP909BsZgtVU hDonui0zlz7udcEf0LmP2QQBzjb TxyEmeXBE1d2XlNg61B64t IHdpZHRoPSIxNSUiIHZhbGlnbj0 gkK5nUd9+QZIhwDB3zYH3sE3vLi SrKsD5WAdxN091LuSdwQBr Qfdsb9fhd4sxpRa8NwWwJBYxyiH vrWtzRMU6s0OqYj88N6MfuNeau5 HeNyx9be91eMGxe8Z8aRN2 M5LwLJGzuivoqKOgtAdwLY7vJXO xtvzuTYTwuI0yKSXzB8o1SqTdWa V0RAiqN5PwiiP6PPIqhTZl HGxgGDC0V35mx5G8BMJzMYIsPNK 6iPC7pG4bbKbrcdgroCGtpGdibg RlmJnqMRczCSpuD570HKMt wMssBYQfsY6wFBHheYDfkMiwYG9 oRFZmoocuKs6AGZlCMjGpKKLUZN IYRUZVAKAVOK8ZFJ37WT01 cVBss5O6oZZ4W3HnOPAonadzexk baGH9TQBeBMZqrH24vSDrNZblBm 1mo5M6c777TWJrJNMzsC55 Hd3mjApaOTAxqQAYzP8iwvxbx9m mbphoSuTeGGWfSJk6TOu0VPHbxP dpPxMuEUH4HvR1GVQ1tAHs aP3vgFvjhjjjjA4vScm+MDEvMjc pGRr7EgrffLV+TONhOOC6lGidLH jfMCMlrI8jACYmJ1d9LzVv GgX1KKejO5HcUNQdkbbsLv55kA9 jWvVgPzR3TLvkE2JjnrS8IZSajA KcMMlsOOM8F96sd9X4UJGj IURbXDO1nVB2iP5wkMzpaauwzSW qaSbhxiOayEwfXXhxPDqtM611QT IkeQqcXzP1GGiiQQOvZY58 WL41lOWch9M2yDD3F9AmZHCgyny ktdhqjME3HBEfUSVyjF05aYOsKL mnLf1nd0G0s329YXWwBLSc fN47Dh0quAzvOGHmrYEElE6zvac xo8fqnntrQmSwIPNuUWh4FAn9HG ZbmUhqKuFzLGP4JoP7NCH5 mTZxsB0clSbmprqqdJ8aUto+RkV QONiKUR99ST12tWUbn3N2uPW9R8 VwVQPfjchyjjnpxVE4XANq JSPxwA57gPZrZAdaHb4se6L6k67 6UEGgKLBvrM19Ul4drYeuCTGvtM QAvU9cqdrwl1zftcozRxXe KMBpJIp6MJb9DELhbOteUgWoKGX 3ScK8BRG1mUCwvG3vuAodjbownR 9wOyc+C2B4K0GgCikaeHZ+ FF04ZRUiLA16wNVuiQJom8linQg 8UsNhEILyDPH1tMhmGRkhn5VgRC BtK37nzGLai6L9EAXubVys iMOjQaIovUP1tO0cTOwjgxpij9r qrvuySqidu1dtna12hQ97C61zNO dpZHRoPSIzMCUiIHZhbGln yj3jaL2vGi9+PYOxqWK3gAK9sE9 pLvEsQjT5DYwaX892UaFsqPCsEg ufg8vdu6xzhYz8UiQdXVPe geNixOadFLR4p0NnAf64N47oYMe nUSNfDBDsXMVyTMGxiByoaq9fiC 9wIi8+KW3hf6kmbx17fF25 dHI+VUBfNIB3oQanTJkvTWRmnB1 kSVfhRsE6ORZeHyBxzY61aDBeAE jxVe7uyAtrwPvtLV8qLEBd xhtfk043LqNzh3rpNNClgPUgRIa nMCK0T83ak1Q8PEXaDDPxPFN7nI U8wM2lpZoktnxfiBPruGyq isNkrPnvWXfbJNdgH270LXMljOt xCnKppEHtA0yngnYNBQ4pZfchtT Q+JZLdJYA4hLkbZQmuDQRs kR0gMMPyF5v3CtOsMwZ7NZwjJ0B sfhS9ZSGpdGKsAGGqvDNTrV4mck alm0vezxlkQtHgSDExMQe9 QAi9ICZoeRuhWhUoCDO7RpG0PIC 7hKUnfX7iuTkweupggA2tMoe+Rk lOOjwvdGQ+BCGoNYL0eKfr UQibWKLzuC4tUQJcZ4q4LiQnIxV 1YMtpO6BrhlS9GAYuhMPcDCXllT VYcP8vwweix0kdyuveJuQj KKEwGOm0HDy9QOAljSmyQhRvWOB 2UnJ0WZZ2iSInaO3ptZweolvsbT 9wOyc+TVJOOjwvdGQ+PHRk ZVN0nFshDBgnMHNuwG0gUFQbW1v 9VpKtXrR8BTkaE7BxguY2KXWbaA KlNFXtfIDLkE9wwsexr7uw evsfTwDcCLYwBRd3VUv5LDMbnBm fImDeJRV5LlI0RJX7qKAasJ5zzV mpfeostX6zTwj+AHN5PFV0 VB84YS91F2TyVplhtYKvhFE+PHR hYmxlIHdpZHRoPScxMDAlJyBzdH lnWF7lQs3vQWWlQDRjmNec cHN (more content not included)... [facility] Physical Therapy Noteon 07-08 Physical Therapy Note [id number][facility] Progress Note - Provider [id number]#[facility] 07-17-2022 Outside Records [id number][facility] [facility] Summaryon 07-16-2022 Coding Summary HTMLBase 64 KqbhuhdySYo0sCt+PGhlYWQ+PE1 WNAPcA82leKZtbB2SV0fXSR7JMX AUMGNYLZ1XZB7rcBY4YZbjX6Sud iAv KfnogCUjRJ28FTd1XQM6ySjwUAp wrY6acPSjY8l3SbYwWN46dO89KA dmRSAcUhL5XwPesfkkzKYk N3wpGaVcpRXqRhu+PHRhYmxlIHd gWMQnXYopDFJyKkTcgDruVR9vUa 9yZGVyLWNvbGxhcHNlOiBj i3cmHMHpJZgrXY4rxFtrB9ZtuOY 6MVDqj6v8Dv10dGY+IMOvXCG1uN ykRDpan609BvQlz4bmEVD0 kWAbVSwaWSY1U57wi0S3IHOcCGE fDUA3jIU7gV0unQuwcgemZ3KvdC ZjAtX5WZE8qCDteO9viDww dowzxE2kBpb+F53PCK2DCNWFJG5 PXtp8X9ZeIxygpXX+IU83TSDdTF 24pLIhsIZde8locXk4HrSo TVKeEZT8lKthXPfdf8DvQXMlD09 jwOAup1H6JOYdzUrooZCxIzVwcZ C0tV3tOAbwmmzzm8drualt Rsfij7cuzz30hR27Z24wLGhzSMB jYZV0YSEzSRBzkQffgq0ouQ0qBr 8+BHmxu7rfn6wzkJi8DsNe RPBagjHodTymLAB0e3JyWq53R5I znTsms7GvMoa4ek15hDOeu1K3iX P5YEhjPGAvrZ8mWQkiAcM4 VUZzOnHcqQ70lGNoZCzvPk5yzTg wcLlhJO2kXCTkpllmLCInuK6fVT QvgHEkoUaqJF1oSOGuwhjv g116UrUePLJ0BDIywONoA6CzxX2 kUoWySMChGHOgN4RcnGCiOPemI5 62JSvhQwA3AHSnydDyU1Qz XZTatPjbRhJ1j2Y0Cp1Wv9Cmico zXIG1ITmyYNN0DkS2PiEgWpZ4D8 PpFxd9PDGzuSkaGE6gD6Zi DORsjafyqcnkyKD3SMZvTKSuoJ7 6iMMdBDuwJh5ll8C6l332OJKuEQ FrzR67Nl4zdZtiWFHjhXXT iI2gciodd7pnsfxzJpFjCMEkZSu 4QKd4XZMhwUakYoTpMBF4MuY6BN I1yCQnlG1ezNozswowxW9e Oyc+J87bcI2hWMS7MVS4sbvcXSZ oxsQzAO48TY52W0SbDzdzlLYnpL U+TKTvkmDkrWviKM5aPzGr p3exp0WrDTezP2XwDXLvKNvuBoq 1LMKcLAP2sUJ9nN0wBKSaQLlyu1 G6pWG2Z5DworDdvr9uh3le JNAeXMzhC14uxEZfp6Z0PKWvvAS 6KNMksThxGxBakA45Cez+PGNvbG pao7StLrwyh4nlw3gbmKn8 NfZvWBSojlMllOmsMQU9r6QtSc8 5W20aJWuuDYCbPLCqHCAwLDRzgD hnpj2bhF2cAb4+PGNvbCB3 bSC8fF8wVLRtSfE6YAbjI653SkV fyDRwEagkx5obi0ybvUz0LcWfSN NsvkDboBstSOZ1l4HpFh29 X41rVMytIZHnLGRuUQYtUBKutWf dmc5yyA4uQb0+RK0ul5peyr72oH 48dHI+FKZpPVB9aPjwYZdu KOZocU5yKQqxVvQ9RRKcTjGwnN1 4lVCrSWfoQh3itGeaqPcgTL5xSI Irtexyj532ZdOph5nrAMDs pFIuXWkcZXO4J44me0P9YDMiGVL aCLW7uCE7pK0lqHxvbcbrjRMoxY ujsoKokOawDZrpYDmxA272 IHRvcDsnPlBhdGllbnQgTmFtZTo 0F2BnSzp1XPQawUfnGU4abTLcET kfGm8zzBmfkRtsAD0xKZXn cujao889MhEyr9zaSRMzaHKaYWr dDTH3L64co1O0HTJpFMYpVIH6fJ E4mP5neOmhvsmwqQVcbZju zqUgyXitZRcxHTshM318FOEodLp nMaQchkZwKKXmjIK4EM69AQ29cL Xad2C3oNI7X5WiTCFndpgw anqosLI4ZZFoCLUzgV63Qv2jbOw nHt2rEKEdSOS9WUHanAHvV6YgwD 6yYhLuBPTuVMZxQ3WafYQj WWprJ005BMadKuO1EXNlpnQxI0R tXCYltBiaDqP3v6K6Nl6JD3Q4JO 21FY48zIVkz4J9jSR1C5Ir CWDaqyeaqjrarVD0LLOmFVHnbH7 5Jy0pbOiiRw2kQHOrDSV0HGCzjV DlK4GeoU0kFpNrDVCrPBWs O2YbvKJbLXopH747ZHznHrT9FQG xraLqP3KnBOGejBptVgU3t8K0Vx 0HHYe1UI61XD24dDBwo9W2 oOH9N4XzYPSqxuqyhxlpdDH1PYO yREHkmP15Tw8eqSzjXk6hPQNdWK E0YXWrhDGzZ8UmvM3gJcTw TTQoTGPuV4VbtTHcGRruT863TIj pQiW9MZNfqyMnF8TzTHBefUmiLf U3t5V3Hj9ONICiDO32FJE1 qTJ1LV81SS66E7WaJsfteEJsfEU +PHRhYmxlIHdpZHRoPScxMDAlJy TvzOslTD5eCe5uLFToVUBd rXlsyTIeFpWep1xjXGJuXVtyZO2 unUtbZ6LqjJZ8IHFwt5v9Up95U1 6pI1UnnWN+JDOgrBE7oJP2 xF4nThHxTzT9KJrbG574LbEquHG aVvnpv3ywg4mddRr6FyR6MFWkak EobJftCTB6o8GnUd83L15y IHdpZHRoPSIxNSUiIHZhbGlnbj0 flB3lFi1+CCTiyNJ5eCH2aX9iNg MqKbV9YAngQ762NtFuvQHe Utvtr0fga3dcuNe5KaNuMVQnwtQ ayTnxHZF9g6JnKv71H6OsuHrop0 FlPxn5pj82yHYbg1M6uAC7 G0ItVROsiasqyGObwItrHB3hFBN fmlujSTXgoC6eLXIuU4m8EeUzCr N8HYxbM0NihjK2QKVboOFr KZlxVBL1U74yx5O4UCPnZKTjIQA 6bYO4uS3yyImhujtriMOerXkfki QyjPfhJMzyHXaoL134AKKo jLbaCGUdkX8oFRJxzQCeuYifAC7 mXBVgbrrsTw5GEQmERbZmOAAACS RRQOOJHJUPVC6DZB47ZK63 zPYox5L6cMP3P5CcEYDhroklnsm puVE8QSGgLTXssG14yUCiATdsAx 8bt2B2d483DZWkBNIjhV62 Xu3jgLbfMPVfbRNKcV8hedczo9b uzrnrVkAmPRHeXTo7ABo8OFRrxJ xkDsPvYHM4McB2BJN0gPGm eK9brBtnijjyiW8fUae+MDEvMjc bAMv1WocufHZ+HABqZTK9bMtbKY gfTOEgsA3gHJUhZ2h1RgTl NuN5GUbwW0OuFKDsjuwhUn63vW7 hJeTuOuV3YNfsF6IzgrY2WRJekH EbMAaaLDU3F47fu9Q5BTTg OITjQKT5pOP1nD3luSkmxoxhgUS jrQlbmrDosRcnFCssXFkcS267EL BbbNigCmI1YJloGCTjFO68 OD17pUZby5U1yYK8C2GmPYGvfrv ieywrlQF9GLTvWHXlyI89mCZxMP zrKa2ci2F1m821SBIiTPCs aV57Fw8xzVmjABYjpTLYfK5cqxl cn0dduaeuFfAfSYKyTSi0TJm8VL FejYzfBoEsYKC9TbL6XLV4 uYBtlS4ceBwjcaiyjR1uQcd+RkV SAZyWYB08EV18tFGvi7Q7yEP1R7 AcUYLuxutemyldaTU4RVDc MZOexM71mDZnJDbyZs7lr8J4v50 6OFLcDSSoxB83Rk1zfFyyLYEgsH VScM2sbsrwo8iesekdTeBg RLQkRHc8OEz8BCEdgYbmNdGgBIO 3TiC2NPV0sAKquI2ebFjbgeuavI 9wOyc+O8T5Z4XwMpyqeEJ+ WD76KLDcEK15qDJzrVZvx0arqFk 5WqDqCSUbNWB9nRbiSBmjm4JmPW XpA41jeNYry8Y9EGTxkOli vSRvWqRtvEI2xS6cKTnwybywm6l xkzhqLpnzj8hwiu45kT32W82cBH dpZHRoPSIzMCUiIHZhbGln dd7gsK8jPj5+HJFzlNX1mPN0qO6 rGkMgNfE7XYfvO789QaFlvQBrAr tpv4yts4oocOh3UuLgFRAi sbSlyDobWCC0z3AdVt50B17wZIg fURYmIAWtMZIfWOFbjImddq1tvY 9wIi8+NS6ti3hisp23zX76 dHI+YUQqYDY9qQwzLSmdAPSelX5 tMRjmDxL1VAPoQlLwiG21aFTgHJ kgZw2nxLaxrRveOH1sJCHc wmhbf325HdDup2tfLMJjyCTnSQy eIUZ7B12su0E5NSAnMMEyKQP5gB C5xX9mpCbecwxlbEHwiImd crBleOgbRBgkJSwfG715RPJhiAu jYcOwsRFaJ6kuujZELR1iXgymcN Q+ZKFwPSH5zLuuYCtpUPCd oR5qHFDnS5u7NqHcReI6EDbbG1O jcrJ6RIOwpUVdQNHjaBBGkP7hjy nbm0orsjodVzInVQKsVZn4 ZLg7VCHibPdhHyZyUAO9IgY9ZDR 3vXQvzH7bkYspfozdfA4aZal+Rk lOOjwvdGQ+FBArNAN8aJge VDndWLQktY2aWFShJ7x5TuEnWkW 7FAxpK2DjztB7UCCigDHeVUKcwV SMlF1dptweb4exephzFnGn EPOgATn6YCl6OEBrqPgoSaNkLCQ 2ZpA8HVE3wWZewC8rsNsebydtzX 9wOyc+TVJOOjwvdGQ+PHRk CKI2eJfrLTewSQZbxR1hFCIyB3y 3UcQmCgK8UMrfA8SjvyQ9XITexK QzMRMsiASJqQ2pomgaj2rb wzsiElNgNXTgVIl5WTp6KJXhoCa nMwPoGLL6WyQ4OUO4wBKmsY7ccK srtvodhQ7yHkq+KHK3YAN2 EC35JU42C2LmSgpbvOLnjDO+PHR hYmxlIHdpZHRoPScxMDAlJyBzdH jaOG3vCw8pVJRaEFCmeVgz cHN (more content not included)... Normal [facility] ED Clinical Summaryon 2022 ED Clinical Summary [facility] ? Urgent Care [address] [place], [place] [id number] Clinical Summary PERSON INFORMATION Name: MICHAEL RAMON Age: 37 Years Sex: FEMALE : 1985 MRN: Acct#: Visit Reason: Medical screening exam; [facility] F/U RT FOOT Arrival: 07/16/2022 10:28:51 Discharge: 07/16/2022 11:30:00 LOS: 000 01:02 Check In: 07/16/2022 10:28:51 Checkout: 07/16/2022 11:30:00 Address: [address] [place] [id number] PCP: Thu Linda DO PROVIDER INFORMATION Provider Role Assigned Unassigned [...] Home PATIENT EDUCATION INFORMATION Instructions: Hypertension, Adult, Odhn-qh-Srfq Follow-Up: With: Address: When: Return to this practice Comments: August 13 at 11 a.m. With: Address: When: Thu Linda [facility] [place] [address] Business (1) Within 7 to 10 days DIAGNOSIS: Contusion of right foot; Elevated blood pressure reading; Hallux rigidus; Sciatica; Strain, lumbosacral Patient Understands: Yes - Patient/family/caregiver verbalizes understanding of instructions given Comment: Normal [facility] ED Patient Summaryon 023 ED Patient Summary [facility] ? Urgent Care [address] [place] [id number] PATIENT DISCHARGE INSTRUCTIONS Patient Information Name: MICHAEL RAMON Age: 37 Years Date of : 1985 Reason For Visit: Medical screening exam; [facility] F/U RT FOOT Arrival Time: 07/16/2022 10:28:51 Primary Care Physician: Thu Linda DO Attending Physician: Mati Bell PA-C Comment: Patient Education With: Address: When: Return to this practice Comments: August 13 at 11 a.m. With: Address: When: Thu Linda [facility] [place], [place] [id number] Business (1) Within 7 to 10 days [...] doctor. This is important. Medicines ? Take kkrl-slv-xujztpw and prescription medicines only as told by your doctor. Follow directions carefully. ? Do not skip doses of blood pressure medicine. The medicine does not work as well if you skip doses. Skipping doses also puts you at ri (more content not included)... Normal [facility] Urgent Care Note- Provideron 07-16-2022 Urgent Care Note- Provider Patient: MICHAEL RAMON Age: 37 years Sex: FEMALE : 1985 Associated Diagnoses: Contusion of right foot; Hallux rigidus; Sciatica; Strain, lumbosacral; Elevated blood pressure reading Author: Mati Bell PA-C Basic Information Additional information: Chief Complaint from Nursing Triage Note : Chief Complaint 07/16/2022 10:53 EDT Chief Complaint here for [facility] eval, of foot injury, states it is better but not 100% 07/15/2022 10:00 EDT Chief Complaint right low back pain . History of Present Illness OCCUPATIONAL HEALTH FOLLOW-UP Date of injury: 08/26/2019 Claim #: [id number] Employer: [employer] Mechanism of Injury: She was moving boxes of [employer] when one fell onto the top of her right foot. 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 On 08/26/19 she was moving boxes of [employer] when a box fell off of the cart and landed on the top of her right foot. She was initially on light duty per [employer]'s telehealth visit. When she was not getting [...] 3 m (more content not included)... Normal [facility] Urgent Care [place] 023 Urgent Care Record [facility] ? Urgent Care [address] [place] [address] PATIENT DISCHARGE INSTRUCTIONS Patient Information Name: MICHAEL RAMON Age: 37 Years Date of : 1985 Reason For Visit: Medical screening exam; [facility] F/U RT FOOT Arrival Time: 07/16/2022 10:28:51 Primary Care Physician: Thu Linda DO Attending Physician: Mati Bell PA-C Comment: Visit Diagnosis: Diagnoses This Visit Contusion of right foot (S90.31XA) Elevated blood pressure reading (R03.0) Hallux rigidus (M20.20) Medical screening exam ([id number]) Sciatica (M54.30) Strain, lumbosacral (S39.012A) If you [...] at 11 a.m. With: Address: When: Thu [facility] [place] [address] Business (1) Within 7 to 10 days Medication Information: The exam and treatment you received today in the [facility] were for an urgent problem and are not intended as complete care. It is important for you to follow up with a doctor, nurse practitioner, or physician?s assistant professor surgical technology for ongoing care. If your symptoms become [...] so we can reach you if necessary. [facility] [place] [facility] has provided you with a complete list of medications post discharge. Please inform your molecular biology professor/provider of your visit and for further instruction [...] 2 diabetes mellitus (more content not included)... [facility] Progress Note-Physicianon Progress Note-Physician DATE OF [...] time being. Ulices Longoria M.D. JOB #: [id number] [Electronically Signed on: 07/15/2022 14:17 EDT] Ulices Longoria MD [Verified on: 07/15/2022 14:17 EDT] Ulices Longoria MD [Transcribed on: 07/15/2022 13:04 EDT] [facility] Coding Summaryon 07-04-2022 Coding Summary HTMLBase 64 VcxdagpgIJx4eQi+PGhlYWQ+PE1 DWEKuP61pkTUyzS9HO9mVLN6UAT VFIHOLSC7DCG0ztGJ3JYufF6Jxx iAv QpwnzCVyXO72JAl0HUK1eRbtFDv vyH8opLBvF2f2TdVmHN19pK84CT idZIScBqN2EsLurumfpBCt I1dvSgIwkJFmXqv+PHRhYmxlIHd hSMOoHEbfWBAuEyHkfTsdML1fUr 9yZGVyLWNvbGxhcHNlOiBj v3czEHXnTKxqGR2hwKclZ5OchEB 3RIKcg5l9Tn34sSL+GOIlCTE1gC dfEJihr556BeCfl8glZBC4 bDWdDYqsMWZ6R22qi1Q7ADMzBOM iEGJ8fNV9aA1xvZquzcguD1OikG BfBkQ4UTZ4fKXzeD7wqDgz awmwnR3xIab+P82ZDL0NAGQXAW4 IVtx7U3FkQltxcGN+SQ17OUJnXJ 67lEStpCGkw5vswJj3ZiMv JYBvATU5oAlcOCxoo6QeEHWfJ37 aoYBal4J1EJNxgJqykCOlIqBajH T9pZ2qDExwjgmpw1ylhmiw Mwqbk6xzbz36zF21K85lEPewGOR rLAZ0GQInKTEcjCfnwu1cdE7hCr 8+UEeal6lbo8jlnRm4AuEb FLUfklDxeNtvLDH6a7ZjDo12Q8H jyBjcd9SuGsc2xi90cRJcu5Y0rI H1SVltISOsdE5rWFdoMaB2 GFJjOkDdtW65sXToAUyuZr3mdFv ulGmzAL9zNILnevqvISJpgL4xSV RfgWMurCmuQU2aJAYxxdmg d150KsZzYJJ8UGQxrAFoU2KyiR9 bUjWqYGHvKLVjF1StwMYzCEcuL7 80IFzmHmS5BCBzylKwA2Sp SYAqiLbjQiU7i9T5Fn9Ww9Zootq jWIN9FQfmBFD5PqF1XjKuPmJ4J0 ApYaw3MORvyIjuRQ1lA5Qc ZJBpoblofguirAC3MBFyMWIgsT6 6dOIwEMhtSw2lw5T0g156USFgEL IkdO44Xw6dpEvaYHNmgEDV tX0mzhqln0vvazocCgJcMPLoZWb 4EVq8SEDszHohJlJuKII6JfL3NL J8tAWhyR1ytZzlivzaqI5k Oyc+B38uvK8xLPK3WNR9caodZVN wvuOwEE69NC56T4SyQedxbIZsaN U+HFQtdiLjbMglEG7uNuWo l1vom2HdPPhgZ3ErQWOhZZhdPwm 8SSAvIYL7kRA7gR5bBLNfERagc6 Z3dUO3K9ExupWolz9hc7bg LSSfAPckZ29xtHCma0Q9NUSdmJC 9BUGulKonFrMsrE69Bin+PGNvbG ffi4RdCdrrq1phf8nfrHa6 ZvUgMJXfonSnpYsjCIE5h4ZuJm5 5Y21qKScpSQAhIIPtYZCvRLGqeO crok8nfL8jJw6+PGNvbCB3 wPW1jM9kYTJsIaP1SEhsI426HnY isTVnTbxsd1omx3qvvSt5FpVvJQ VlviIkpVapBLD0l3QeGg72 J91nSLzzHOFvVYMdPDYhSLRjzIo nhn1jsH4cUk2+TQ9ee6kcjf45rM 48dHI+TSFhCDY0nSwgDVoo QFVfsP1oUNjbUkG4RBWpUkRmfI7 9yYFvWLcdZd3jcYtbpBhlQI9sVU Wkbejdz648ObUwt0rtNTKo qMCcJOaxRXC2X49ll1R0RPNfYGK fFVO5lNP8gB6xzHjovetryZHezW fptzHkhYjhNBnsVXhiN226 IHRvcDsnPlBhdGllbnQgTmFtZTo 1V6NfVmw8LKRvaQnxOM1fjMAxPT elNa6bjJctsKtuTU6jMAJy thjiz746NfTec4gcAHHwkOYhRCz qAYJ8S06yh9M6QSDiJZSvXIS7tX E3oL8baIzsfbslsRWncLuh hiCnsPiyPCpuEOnqA571HDAhcMu mXpWuxjSvUECzfQT1RM15KE38xZ Fjt3C7rNO7Q2AkCUFsztxs drvfaNY2YSQcODFxaD47Nz2qtSe iMe0yHVUxCOQ0RFPhpWHuT1RanT 0gPdCnFSIsPRTvV6QrlASo VDieP727ZClrCuH8HCZqsmQeJ7I yMRXkuHjvVoA1y6U1Co8DI2S6WI 52FL51kWIea5I9tVG4N4Um LKNzdpxrjvzkoTI0WJVhXBIrgK5 4Fu6qkWeeAg2hTHGkYWU7USJdnM ZkO5CimP4xEmSjKDKlYSVx I1HwoFWnKKrvJ807HCboGiZ9SBW xqbQcT2OlQMZihEjuMfT7t2P8Bg 7GIPk0VN13SX26pWImv6Y7 cXF1I3AsYKQkhjysicmuaLO6VJB gFKXktQ07Xt5luJbdIk4pAKJkIL O5FCWyvIKuF4UrzH7sWxJe NYGhRGAeC5GukVEkIEkuX560WUl uHxC7TVDmllGpX7OiFXQjaLhbYq I7m4N3Sq1DORCjCW52LXH2 pID1SE56UZ11Y7NgUjlbjGLgyKY +PHRhYmxlIHdpZHRoPScxMDAlJy KpmYnfUH4zZe5oWKFpMHTo zAdynHSrNiFtk1vcKMHoGIfrWP1 cdOfaQ1JzcLU5KVDuj5e5Ie71L0 2xM0CcuEA+JWConLP3yHL1 uC4tWoXfCpS9NTxiM788WzWoyQI cIaszs4ahj9dzvYh8OwT3PCXmix TexTfgCNT3b1VgTf97S60m IHdpZHRoPSIxNSUiIHZhbGlnbj0 qxD4lRt4+ZDEtwJZ0vWQ0xM6lMv VlByI4YAddG333GiCdpCZk Kzclc8grv3dffMz9IiPqCIWxngJ alRshTNN1d2HtJl15N3QdbCfns6 HyBek4xl26zIHyn0R6uQY5 S8XtWVZqypvnnKWpoEsiFA3sBTF wrdqoZFOnyH3qFFMcL8j0PaXuTu X5AScbW8JpgjP3ASBtiMFp IGlqHWM4M61ps9A2DMYrBSOoYJZ 1kMI1kO4tpKgocnwuhWQktPpyhf ItcPvrUYibLAkgD726BICo kFacVLJboX3wJGCdhGRvqDozQM4 wOPVpsjcePx9GPVuGXlRnNDOFGO GXUKOEURLDPL5EWW73KB40 gJIlx5D3iLY5U7WpLYCpiryxcao nvDH1CEWbSDHliF75tSXwZPryCr 4ed2M7j650GZOjTGAywX03 Nd8ftNrzPZUooKHXpZ5kvoidk2v jgvuiNzWdPYHdZAm9AQx8CBUrsA bvDrVgUOB9DaX2AUM3nBGn eV0vcQcgfltgyL0dZfy+MDEvMjc sIOb5CkmriNY+KCSvMDD1fCinKI qfZQPsvF9nIHJwQ1n0DiZu UiS2RLjmN7YrYPRfnciqXd30mN9 wYtQpIvS6UBysV0PhqtN5KGVuzY IxENhuTMN0G62eq6E4GUSi NVSkIGP2zFI4jW2muGcshnspkVW gaMpmegNtfFavFLhzUXbkB826TD EhoTkhEtB4PGlaWSDwJN92 EX16bKDgc7R0eTA0A3LhJJDgyfa zlqrreBZ1RIWyQAXcvM43hOFhSF imUn3au6B7f510BLNgXACv lT94Xh2ewGznNPFtvIZEwC5jlnn wt6krwxtyOtQgWWHsIQg2QKp7UG ZukQfwWmKhUTX5VcT7BMT1 iPBkkR6rhHntmjosiK8zHsr+RkV UCWpJXF87EW92zSWvq4U8rSU8H8 EjHKRnyeqdbnipgLS5PDNg AFTxoX49eKAjFEjuAc2rl5K1i67 1OKEiUBJxrI85Gz7atToeJRAvlZ QAmX0sczovd5fgoiptGfTf VIYiFQf6GMe5ERSbbHqrHuAnSBE 9GnU1OUU0fOUddE7vaOnpsqkigV 9wOyc+ZgYntMRmaX2nSY04 mEKhxNwpgiU3H8KjXhalnGJ+PC9 3WAVvZL81eBFdvPCym5xuiJj4Ku CoJHRcUMI6jEoyPZqra1Zv BSWbQ20reGLat1M0XHJbyHiqvXA mDwPkoGS8xL1rMOgrcrktu8syze irNsice8ylhu49sF01L48s IHdpZHRoPSIzMCUiIHZhbGlnbj0 ygE8oRr6+HVSbyNO5zAT0zD8qAx OlBpX5LKrwC361AzUwnTGz Njlbz4esd1elpGd1NfQcGPYazuF unXreIUX2n5VsYs74T98eXMlmMI SbQJVhHECzQAVgcBtokj6y hE4jYo2+WO2ke8fabq06aT90lWK +QFQmJFO2bPivDKucOHNfnN1hHJ tcFyK8HFWgYmDnqQ28pMWt AHvsUw5zvKespMmfZD3qGBAkjnf iq213AsBbb5xkZWGyuSLtREhkGQ T2I27jt8V7KKXbBSLkEFH5 cLR0dS4tjWwentibyBTwhFsjxwM txCwqISxzQPeoP092WWSpfHyeHf GfvKPuR0sgkdVSHI2jClqd dGQ+PNFsNAJ7yFstVRcqLWZufE2 zZKDlC9y3KyGoGsD4RZgiR7Fvbb C1PNXhmEVcVGNnhOQMoT9j esytm2vcveyaEpCuNPAmLRt6WTn 1UCVeyFcvEkXwAEO7KrK8PXT7eN GhoV7svXukegosoN1gAtb+ RklOOjwvdGQ+LHVkKOT9oSdlKUj eDWJsjO1gQUFaT7e7QoMzBpW0BS nvO7XtxqM5JOMdjIAjKOFc cNNQnV0qixgcf2ekjfigMaYpWKG eRVk0CAl2MLYnhMviDoKjMSK7Qo B1HQR1yFZaoP0xjOvbzdtp gX8qBvy+TVJOOjwvdGQ+PHRkIHN 0eQvwPWxaYZNopG1qDRLgL3v2Vz ChFjR6BRazU5UpkcQ0UCSx uUCmUIEkkSLJyY8mfujiy1jrudv iSgPjAWZsTLw5PJu5WBCqnMgnKm VfWKI2RoN2CFP0xAMsdA0o kQhwukzimV3yNxk+TZV6IZF9ZW7 1CI47S6PmZgamxJKvsTG+PHRhYm xlIHdpZHRoPScxMDAlJyBz [facility] (more content not included)... [facility] 06-21-2022 Provider Orders [id number] Progress Note - Nurse Pt called to reque st refills for Diclofenac, Baclofen and Lyrica. OAARS reviewed and appropriate. Pt is compliant with visits. Request sent to Dr Longoria for approval. [Electronically Signed on: 06/14/2022 08:53 EDT] Deena Silva RN [Verified on: 06/14/2022 08:53 EDT] Deena Silva RN [facility] [place] 05-27-2022 Provider Orders [id number] - [facility] 05-08 Progress Note - Nurse Pt called for refi ll on Lyrica into [facility], RAMAKRISHNA reviewed and ok, pt compliant with OV, sent to Sara Wilcox CNP for approval [Electronically Signed on: 05/17/2022 11:43 EST] Josefa Schuster LPN [Verified on: 05/17/2022 11:43 EST] Josefa Schuster LPN [facility] Coding Summaryon 05-16-2022 Coding Summary HTMLBase 64 SawixgdnNNx3nQs+PGhlYWQ+PE1 OVGLgH70hsZGhaH2CF6sUZD6ORC OHKZTRTJ3ZIH1xtYZ6TYmiR1Mrv iAv AsezsFEwRU86IKz1CIR5iSyyRFw dzV2pgUErM6c5SzFnXG54qZ48YH nrBKWqEdV0BdNijtvihVOy Z0haAkNuuOYkFzb+PHRhYmxlIHd rLZGeYAcbOJGbOpNkkSwmNR9xZt 9yZGVyLWNvbGxhcHNlOiBj l3lpVPOzHNqoAF3aqJmfR2FuqZV 4VCSvb6g0As30eJK+FGVtRBV8yQ tjAWmhx355EoOzk0owDNN2 pMNtTWetRKE1N75jz4A5ITEeFMS wRGV7iPA9cS8ovWfhqealS2JolL TeCzE9GCB1tZYruF7qeYtf pujlkE0rFbn+T69DMX5RTPAOYF2 SCxc0A1EnAigxrLT+IX30GFQkAG 36bGJwxXUls7wrxOb3SiUh PHRgOJU7tBrkANqhg3NnCZJsI77 nuFYac0F2TFWuiXdkyEZnVaJueZ S6pJ0fGWdijpsti7zmvajb Ofslv0augd75jC73J83hBKkdEGQ tUIJ3XDJbAMOgoLomoe7piF0bWg 8+VQxqe9bhk0fujMh6SyGq SQPmstBjdTolFTL6i7ZvWg60A6R diJvvl4JkUtp7vj95yHZhl9Z1sY E0ZGrrUKLntB2xIAtrLyH3 ZVCfQgTigM55eWFuANevWq5bdZn gsCkdGY3yMVDwukhgHUFauR2vCM RjxIKjwIbuEN1hLYPzxidg l217SmUzDMP6OLLhxBXeM6VciY1 eRnXhPDGrVEDkL2VvyFIpRVpjB8 16VHtiNaD8GHAvrtSuY1Yp FIWicCtcRfU9g6X7Xq8Jz0Oupcn bQXL4RQadEVUdSgJ2KdUiQrE9I2 ZsQye8XBQfrUrkGG8fY3Ek MVCysccyshmorYC6RXGkGNDioB2 5rJFjHDdqWi4qa3N6i616NNBjOL LjgS55Eh9ylMhyPXIpyNUG zB8hythxx7uuenyhDqBiQPVzYBh 2JPl9MFIijVotHnEqHWU2QtJ6YS Y1uGNjxY7bhCqkxeblvA4r Oyc+Y55cpY6sFFW5NKH1xomiQPV fybAeMP28PJ96M2NdVybxbTKqtS U+ASKerxKilZqgMM7mTjTz z0nyg7IlMMmlE8ToRUXrIXykCtt 0LDCbKBE3sSE9jI4pWNSrLVwan8 F5iSJ0Z8XflbUdlm0se2ku VMEpEQkdN29qmZSoi4Y9VTIemWM 6CGHuiLlbRdRaoH75Hpr+PGNvbG zhw4EhYaiki9vup2izrPl7 WhWyUPZzdxYhdYurFSX2h5IwRs8 3C78fGQfbNREnQSOcLJCcHJAyaB gdnd5tpD9mAg0+PGNvbCB3 sQR0qT8gQXLsTqV3ZZzhV418IcH zqZNiMmxsm7kxb8shcRc9MfXyUK LrujOmsPqxGXJ5b3LvJu33 Z65xKKkbRXRfDUUjXPOiOTXbfIw oow6mxW9dPc4+IL1su8qmkn87yO 48dHI+UQDxOPL1kMojKXhn CBYfzF9iJYwgJiR9WSBeDuQgyG4 1hFDcEWevOk2fmUemcSjjDE4zCN Gsqfeoz925UwXoa1iiBTPu bNAzCNfqLLE0P59wr2N4CLWtLQQ cJIX2xQQ2cB9bgPzcsakfqTFbvY yjfkJjjRxpAWdaJYxsV051 IHRvcDsnPlBhdGllbnQgTmFtZTo 7B8HzZfa3GWXmwRquXG8qxKPcZG wiUk4htGebiNsdLP8pLORb wkllb014RrDru0pmMKCwyOOoRMa xDKT1Z38ux8B9TQBuTMImPPY1nL M3bV6mlLekyaeygEYmrObv kjXosVksRXgkGIrpV563UGRzrSh fBnEvhjIqTMMztZY8ZN23BI44tW Ywh9S4xPR0S4TkQKRileud dvobbIT6USHwHUBtxM29Tb5vcMz wDi7wQVFgVNE4HOEwpVYeF1EobA 9mYrMxJOUwGRUcR0LjcJTm XTosZ117HNxdGbB6HYXlarOtB9W jQJWwkZstMqR3s4A8Np2HC2A3GG 53DQ36gJMyp3S3zYS5J3Tt OSPjvhjqryvhqHA9WMIxEDVidM2 7Tg8liXqlQv4nUTDeJBV1BOHmwL VzY1QwuS8tQaFbVKDyEZIy L0GtsZMkMYcqG922QXnfUbT7HEO zvkLrG9EdSTKthLdxJcN2z6P3Wk 0SLRf0IS57VZ37vGRbn8L6 xUS7O6XwVNKmbsbmwqtpdVP0NAO dKGQtvW27Jr2rvIkyJv2wGJOaBQ P2QAGzvCEpU6FzzQ1wKfKq JFXyTRPgQ6BzaBTlEAegC650YTz jHkZ9EFMfjoMlI8MpSMJssYinFu P7v8S9Dp4GEWRtJZ55TMW2 cTE9LJ01CQ60J2AmLzgicKFxlNM +PHRhYmxlIHdpZHRoPScxMDAlJy YseNdpEB1eVk0tRRLeASKw eWmdpTZrHnPtf9cvMFSpUVjyUQ0 rcZuxA2NzfDD0ACQuz4t3Fv98P5 5qG0OgsGX+HHBciFT0iPY9 sR0qAbEaFaX3LHxkA583VgIajWK xNezzj2ojh4xpyVa4YcT8VGBwix CnrLioQSA0t4WsVw01C83g IHdpZHRoPSIxNSUiIHZhbGlnbj0 mbZ8tVz8+RNNckXK2xGH7mG0tOd PoQaI3PYkoU901SyGdhPNb Oxlpi0okv5woeQq8LlZrDHXlblW nbZmfRMR7f0TwDn93C3OzyVmhm9 OwQmh7tp69fPFlh8Q0eUL4 O9SoUXKnyqzfcTBmqCjwIH2hBKN knuvuQEKbqL6gJVFkB9u7EhOdNf C0VZgkG8VzupI8ODSfxGUb MYotSRH6W77fw2J8AWXxDZNiODI 4jXF2jC2hrThbehmoaYCsdFbkay GecIyzWTrkCScaT094RRDd eXitJIMusC3oZJArzTYltLnhHK9 uMLXpcayjKj8TZBxQLbUqBYJFOV WYMUZXUSNKRX7QFQ23VF06 sZAhc3C4jAC0D4PkIJRxwwfuklq ftWW7QJWuUSBjgI38gUNzXCuwYi 8lw7U7f654PNTuGMDmwB96 Cc5djHfkVPWavGYYiV2vwihoy0p imsvbOaCoJEOaKBb4HBh6NUMmsL gzTtImLJH0SfU6RGE4eRFr lJ1ifSsirpqypP7zKmb+MDEvMjc sRUr1JtwgcWE+HHQtTAB3dPepCK bwLVDukQ5hOBCoO0h0QtYu WpG5NOoyJ2GjFDIdrlhtYa28eJ0 zLkDuPbJ6SBrlJ3BkwaH6WITmfA IsZKzcASL6C15sx6V3HMHf RMQoTYU5eUV0gS9xcYmasmkpbZU tzEiamrMwoCtyJFtlPGqgV289CY WwjHwiUfB3KQodBSWkXR61 PM39eNNyt6O6hST5J4VyDGVdvxf jbqoppQS1GBRpOOFzrF01kNCsWB npLx5yy3B9l213ALHuYRXd nJ58Jp1zhQooRGHjoJMVdH2onnk wn4nfmltcBvKkJRVgOUl0TRo4CR QnaJruNrTmJMF0NdI1RUP3 mAJalS9yxOpnaklvcP7bGuy+RkV SIZiMDI30EC48wRTgu0C0cGF1H8 HqKNOwikpnmzxplIU2HSPv MIKuyA75tASoWSbyNl7yj7N8d45 0HZQmMEYkaP24Ws0dlJpdQEQogR MNfX0uwncax5bsubpnAdFr ITIwTMt4XIz8QSQvuBaoRgZuPVF 7BmV7IDJ3qVDzmS1zpPvnptdyvX 9wOyc+OwWtoUWxrR3lUI55 bLOwjMxmomE0S4MtLebltFV+PC9 4ZVDvVL47wCNmbGXpp8fzwJn6Bu TiUFSyOTR1pKiaMTcgp8Re IEKdY96ohQFzy4B1JUYppLvlrOP fLpCscYM1nC8nZKfykjlga4vlex ljQkogu1kpec86uO19M94k IHdpZHRoPSIzMCUiIHZhbGlnbj0 jgG5yCw3+KJOzlFK4aDD3eZ2bIa RwJwZ1QNakL907KvJcyDHg Wvvhe6hva4etiSp2CnIpUBLchcO baTwzGDU3a9GaMa95C27oAYyeQT WjPCOiAOUiGOCbcKpuzs9z aN9gHk8+CA3jo7xlpj08tW97gBO +FREpWDD6lAoqIQqjGVJtzO2lWM xqVgA3XIDyAgNrwT88eXBm DCluFe7mvIqelGosXJ1yOTFwqmd kk860ZwUct0wgPSVemNZoNWzvWW H3S24vm0L4KANyFAUbEYK3 kGV0cB5ezDtwkaonjQOpoPwxruP gmYauWStaOGgeK927CTEwnOlsSc UajVTdE2ltlpJBRR1yJrmc dGQ+KWSrOWZ6qHqaLMvjQGHrvH3 dRIYzG9m7CwEwQiZ4WLzsH0Njmv H4TZUpqORtHRHstLJCfD9r tfuqo2wcsnhrBvZkXXCyMDp5YNv 1FWPmtQttNeQkRBT2JuP2SLJ8rP MylL0ikXornltjbI1oWzn+ RklOOjwvdGQ+VNCmQTA6ySbxCCd pQNDehA7lFJYqN2f1MoSdDpJ9LT diV0WibjI4ARLiaVUnCZKa iLXAoR6lkggoi6qbweqvTiMfHON oADh0PWe4JOAukTokWoLfWBU4Hq B1DXZ4hLKaeU9oyDwcbokh cS2mFno+TVJOOjwvdGQ+PHRkIHN 0vEqxGVihLOYwcO7kNWTuF2j2Wx ZyHnJ5UTllD0EjmaI7TGLi xRMfYELtnJJOuT3yrkexm2nscji nKxQzGTJlKXa6VVu0YUYihXlhKj MgNYD7OlK6QOR1tRSyyC8a oEagjsxyeJ6oQpn+PFF7YKU7KZ1 3KI58B0GhPmyshHMzaLC+PHRhYm xlIHdpZHRoPScxMDAlJyBz [facility] (more content not included)... Normal [facility] MRI LSPINE WO CONon 04-12-19 MRI LSPINE [...] MALATHI LOUIS Date: 2022-04-12 11:23 Normal [facility] POINT OF CARE GLUCOSEon 10-09 Glucose [Mass/Vol] 124 mg/dL Critically high 74-106 [facility] Comment on above: Performed By: #### P OCGLUC #### [facility] [address] [place] [address] Dr. Johann Spring PREG HCG QUALon 11-05-2021 , QUAL Negative Normal NEGATIVE [facility] Comment on above: Performed By: #### P REG #### [facility] [address] [address] [address] Johann Spring XR FOOT RT 2Von [...] WEN MCCABE Date: 2021-11-05 13:58 Normal [facility] XR CHEST 2 Von 10-27-2021 XR CHEST [...] MALATHI LOUIS Date: 2021-10-27 07:17 Normal [facility] Covid-19 PCR (CVDTB)on SARS-CoV-2 (COVID-19) RNA SHEFALI+probe Ql (Unsp spec) Detected Critically abnormal NOT DETECTED [facility] Comment on above: Result Comment: This test is not yet approved or cleared by the [place] FDA. When there are no FDA-approved or cleared tests available, and other criteria are met, FDA can make tests available under an emergency access mechanism called an Emergency Use Authorization (EUA). The EUA for this test is supported by the [place] of Health and Human Service's declaration that [...] used). Performed By: #### C VDTBH #### [facility] [address] [place] [address] Dr. Johann Spring PREG HCG QUALon 10-08-2021 , QUAL Negative Normal NEGATIVE [facility] Comment on above: Performed By: #### P REG #### [facility] [address] [place] [address] Dr. Johann Spring CBC AUTO DIFFon 10-01-2021 BASO # 0.0 103/ul Normal 0.0-0.1 [facility] Comment on above: Performed By: #### C BC #### [facility] [address] [place] [address] Dr. Johann Spring Basophils/100 WBC (Bld) 0.3 % Normal 0.2-2.0 [facility] Comment on above: Performed By: #### C BC #### [facility] [address] [place] [address] Dr. Johann Spring EO # 0.1 103/ul Normal 0.0-0.7 [facility] Comment on above: Performed By: #### C BC #### [facility] [address] [place] [address] Dr. Johann Spring Eosinophils/100 WBC (Bld) 1.7 % Normal 0.9-7.0 [facility] Comment on above: Performed By: #### C BC #### [facility] [address] [place] [address] Dr. Johann Spring Erythrocyte distribution width (RBC) [Ratio] 13.3 % Normal 11.0-15.0 [facility] Comment on above: Performed By: #### C BC #### [facility] [address] [place] [address] Dr. Johann Spring Hematocrit (Bld) [Volume fraction] 38.0 % Normal 36.0-48.0 [facility] Comment on above: Performed By: #### C BC #### [facility] [address] [place] [address] Dr. Johann Spring Hemoglobin (Bld) [Mass/Vol] 12.4 g/dL Normal 12.0-16.0 [facility] Comment on above: Performed By: #### C BC #### [facility] [address] [place] [address] Dr. Johann Spring IG # 0.02 10e3/ul Normal 0.00-0.03 [facility] Comment on above: Performed By: #### C BC #### [facility] [address] [place] [address] Dr. Johann Spring IG % 0.3 % Normal 0.0-0.5 [facility] Comment on above: Performed By: #### C BC #### [facility] [address] [place] [address] Dr. Johann Spring LYMPH # 2.6 103/ul Normal 1.2-3.8 [facility] Comment on above: Performed By: #### C BC #### [facility] [address] [place] [address] Dr. Johann Spring Lymphocytes/100 WBC (Bld) 32.9 % Normal 20.5-60.0 [facility] Comment on above: Performed By: #### C BC #### [facility] [address] [place] [address] Dr. Johann Spring MANUAL DIFF REQ NO Normal [facility] Comment on above: Performed By: #### C BC #### [facility] [address] [place] [address] Dr. Johann Spring MCH (RBC) [Entitic mass] 28.2 pg Normal 26.7-34.0 [facility] Comment on above: Performed By: #### C BC #### [facility] [address] [place] [address] Dr. Johann Spring MCHC (RBC) [Mass/Vol] 32.6 g/dL Normal 29.9-35.2 [facility] Comment on above: Performed By: #### C BC #### [facility] [address] [place] [address] Dr. Johann Spring MCV (RBC) [Entitic vol] 86.4 fL Normal 81.0-99.0 [facility] Comment on above: Performed By: #### C BC #### [facility] [address] [place] [address] Dr. Johann Spring MONO # 0.3 103/ul Normal 0.3-0.8 [facility] Comment on above: Performed By: #### C BC #### [facility] [address] [place] [address] Dr. Johann Spring Monocytes/100 WBC (Bld) 4.1 % Normal 1.7-12.0 [facility] Comment on above: Performed By: #### C BC #### [facility] [address] [place] [address] Dr. Johann Spring NEUT # 4.8 103/ul Normal 1.4-6.5 [facility] Comment on above: Performed By: #### C BC #### [facility] [address] [place] [address] Dr. Johann Spring Neutrophils/100 WBC (Bld) 60.7 % Normal 43.0-75.0 [facility] Comment on above: Performed By: #### C BC #### [facility] [address] [place] [address] Dr. Johann Spring Platelet mean volume (Bld) [Entitic vol] 10.1 fL Normal 9.5-13.5 [facility] Comment on above: Performed By: #### C BC #### [facility] [address] [place] [address] Dr. Johann Spring PLT 205 103/ul Normal 150-450 [facility] Comment on above: Performed By: #### C BC #### [facility] [address] [place] [address] Dr. Johann Spring RBC 4.40 106/ul Normal 4.20-5.40 [facility] Comment on above: Performed By: #### C BC #### [facility] [address] [place] [address] Dr. Johann Spring WBC 7.8 103/ul Normal 4.0-11.0 [facility] Comment on above: Performed By: #### C #### [facility] [address] [place] [address] FOOT RT WO [...] by: WEN MCCABE Date: 2021-06-11 07:07 Normal [facility] Vital Signs Date Time Vital Sign Value Performing Clinician Facility 04-24-2023 14:45-0500 Diastolic blood pressure 80 mm[Hg] DO [employer] [employer] Work Phone: [facility] 04-24-2023 14:45-0500 Heart rate 83 /min DO [employer] Work Phone: [facility] 04-24-2023 14:45-0500 Respiratory rate 18 /min DO [employer] Work Phone: [facility] 04-24-2023 14:45-0500 SaO2% (BldA) [Mass fraction] 97 % DO [employer] Work Phone: [facility] 04-24-2023 14:45-0500 Systolic blood pressure 124 mm[Hg] DO [employer] Work Phone: [facility] 04-24-2023 12:37-0500 Body height 162.56 cm DO [employer] Work Phone: [facility] 04-24-2023 12:37-0500 Body temperature 98.3 [degF] DO Shleley Jesusita Work Phone: [facility] 04-24-2023 12:37-0500 Body weight 159.21 kg DO Shelley Mc Work Phone: [facility] 04-17-2023 11:15-0500 Body height 160.02 cm Imad Asaad Other [facility] [employer] Other 04-17-2023 11:15-0500 Body mass index (BMI) [Ratio] 66.24 kg/m2 Imad Asaad Other [employer] Other 04-17-2023 11:15-0500 Body weight 169.65 kg Imad Asaad Other [employer] Other 03-18-2023 09:00-0500 Body height 160.02 cm Shelley Mc Other [facility] 03-18-2023 09:00-0500 Body mass index (BMI) [Ratio] 66.31 kg/m2 Shelely Mc Other [employer] Other 03-18-2023 09:00-0500 Body weight 169.83 kg Shelley Mc Other [employer] Other 03-18-2023 09:00-0500 Body weight 169.82 kg DO Shelley Jesusita Work Phone: [facility] 03-18-2023 09:00-0500 Diastolic blood pressure 84 mm[Hg] Shelley Mc Other [facility] 03-18-2023 09:00-0500 Respiratory rate 18 /min Shelley Mc Other [employer] Other 03-18-2023 09:00-0500 SaO2% (BldA) [Mass fraction] 95 % Shelley Mc Other [employer] Other 03-18-2023 09:00-0500 Systolic blood pressure 120 mm[Hg] Shelley Mc Other [facility] 03-11-2023 12:00-0500 Diastolic blood pressure 98 mm[Hg] DO Thu Nicolasa Work Phone: [facility] 03-11-2023 12:00-0500 Heart rate 70 /min DO Thu Nicolasa Work Phone: [facility] 03-11-2023 12:00-0500 Respiratory rate 18 /min DO Thu Nicolasa Work Phone: [facility] 03-11-2023 12:00-0500 SaO2% (BldA) [Mass fraction] 95 % DO Thu Nicolasa Work Phone: [facility] 03-11-2023 12:00-0500 Systolic blood pressure 156 mm[Hg] DO Thu Nicolasa Work Phone: [facility] 03-11-2023 10:07-0500 Body height 162.56 cm DO Thu Nicolasa Work Phone: [facility] 03-11-2023 10:07-0500 Body weight 172.36 kg DO Thu Nicolasa Work Phone: [facility] 02-20-2023 10:00-0500 Body height 160.02 cm Shelley Mc Other [facility] 02-20-2023 10:00-0500 Body mass index (BMI) [Ratio] 67.5 kg/m2 Shelley Mc Other [employer] Other 02-20-2023 10:00-0500 Body weight 172.87 kg Shelley Jesusita Other [employer] Other 02-20-2023 10:00-0500 Body weight 172.86 kg DO Shelley Mc Work Phone: [facility] 02-20-2023 10:00-0500 Diastolic blood pressure 100 mm[Hg] Shelley Mc Other [facility] 02-20-2023 10:00-0500 Respiratory rate 18 /min Shelley Mc Other [employer] Other 02-20-2023 10:00-0500 SaO2% (BldA) [Mass fraction] 98 % Shelley Mc Other [employer] Other 02-20-2023 10:00-0500 Systolic blood pressure 138 mm[Hg] Shelley Mc Other [facility] 02-19-2023 09:15-0500 Body height 160.02 cm Wen Pollack Other [facility] 02-19-2023 09:15-0500 Body mass index (BMI) [Ratio] 67.48 kg/m2 Wen Pollack Other [employer] Other 02-19-2023 09:15-0500 Body weight 172.82 kg Wen Pollack Other [employer] Other 02-19-2023 09:15-0500 Body weight 172.81 kg DO Shelley Mc Work Phone: [facility] 02-19-2023 09:15-0500 Diastolic blood pressure 81 mm[Hg] Wen Pollack Other [facility] 02-19-2023 09:15-0500 SaO2% (BldA) [Mass fraction] 98 % Wen Pollack Other [employer] Other 02-19-2023 09:15-0500 Systolic blood pressure 137 mm[Hg] Wen Pollack Other [facility] 01-15-2023 13:45-0500 Body height 160.02 cm Imad Asaad Other [employer] Other 01-15-2023 13:45-0500 Body mass index (BMI) [Ratio] 70.71 kg/m2 Imad Asaad Other [employer] Other 01-15-2023 13:45-0500 Body weight 181.08 kg Imad Asaad Other [employer] Other 01-15-2023 13:45-0500 Diastolic blood pressure 88 mm[Hg] Imad Asaad Other [employer] Other 01-15-2023 13:45-0500 Systolic blood pressure 147 mm[Hg] Imad Asaad Other [employer] Other 12-12-2022 09:45-0400 Body height 160.02 cm Imad Asaad Other [employer] Other 12-12-2022 09:45-0400 Body mass index (BMI) [Ratio] 70.49 kg/m2 Imad Asaad Other [employer] Other 12-12-2022 09:45-0400 Body weight 180.53 kg Imad Asaad Other [employer] Other 12-12-2022 09:45-0400 Diastolic blood pressure 94 mm[Hg] Imad Asaad Other [employer] Other 12-12-2022 09:45-0400 Systolic blood pressure 167 mm[Hg] Imad Asaad Other [employer] Other 02-20-2022 09:45-0500 Body height 160.02 cm Wen Pollack Other [employer] Other 02-20-2022 09:45-0500 Body mass index (BMI) [Ratio] 72.53 kg/m2 Wne Pollack Other [employer] Other 02-20-2022 09:45-0500 Body temperature 98.2 [degF] Wen Pollack Other [employer] Other 02-20-2022 09:45-0500 Body weight 185.75 kg Wen Pollack Other [employer] Other 02-20-2022 09:45-0500 Diastolic blood pressure 89 mm[Hg] Wen Pollack Other [employer] Other 02-20-2022 09:45-0500 SaO2% (BldA) [Mass fraction] 98 % Wen Pollack Other [employer] Other 02-20-2022 09:45-0500 Systolic blood pressure 149 mm[Hg] Wen Pollack Other [employer] Other 02-07-2021 16:30-0500 Body height 160.02 cm Wen Pollack Other [employer] Other 02-07-2021 16:30-0500 Body mass index (BMI) [Ratio] 60.22 kg/m2 Wen Pollack Other [employer] Other 02-07-2021 16:30-0500 Body weight 154.22 kg Wen Pollack Other [employer] Other 02-07-2021 16:30-0500 Diastolic blood pressure 90 mm[Hg] Wen Pollack Other [employer] Other 02-07-2021 16:30-0500 SaO2% (BldA) [Mass fraction] 95 % Wen Pollack Other [employer] Other 02-07-2021 16:30-0500 Systolic blood pressure 137 mm[Hg] Wen Pollack Other [employer] Other 12-06-2020 10:00-0400 Body height 160.02 cm Wen Pollack Other [employer] Other 12-06-2020 10:00-0400 Body mass index (BMI) [Ratio] 61.11 kg/m2 Wen Pollack Other [employer] Other 12-06-2020 10:00-0400 Body weight 156.49 kg Wen Pollack Other [employer] Other 12-06-2020 10:00-0400 Diastolic blood pressure 86 mm[Hg] Wen Pollack Other [employer] Other 12-06-2020 10:00-0400 SaO2% (BldA) [Mass fraction] 96 % Wen Pollack Other [employer] Other 09-29-2021 10:00-0400 Systolic blood pressure 125 mm[Hg] Wen Pollack Other [employer] Other Encounters Encounter Date Encounter Type Care Provider Facility Start: 04-24-2023 Non-patient / Non-visit DO Wnedy Mc Work Phone: [facility] Work Phone: Start: 04-24-2023 End: 04-24-2023 ambulatory Shelley Orozco Jesusita Facility:[facility] Start: 04-24-2023 End: 04-24-2023 Admission to same day surgery center DO Shelley Mc Work Phone: [facility] Work Phone: Start: 04-24-2023 End: 04-24-2023 ambulatory DO Shelley Mc Work Phone: [facility] Work Phone: Start: 04-23-2023 End: 04-23-2023 ambulatory Mati Bell Facility:[facility] Start: 04-17-2023 Patient encounter procedure Imad Asaad [facility] Start: 04-17-2023 End: 04-17-2023 ambulatory RIO SCHULZ [facility] [employer] Other Comment on above: Major depressive dis order with current active episode, unspecified depression episode severity, unspecified whether recurrent (CMS/FORMERLY [facility]) Start: 04-08-2023 End: 04-08-2023 ambulatory Shelley Mc Other [employer] Other Start: 04-08-[address] Mc [facility] [place] Start: 04-04-2023 End: 2023 ambulatory Sam Herbert MD Facility:[facility] Start: 04-02-2023 End: 04-02-2023 ambulatory CLINTON MULLER Not Available Start: 03-25-2023 End: 03-25-2023 ambulatory RIO SCHULZ Not Available Start: 03-25-2023 ambulatory Thu Nicolasa Facility:[facility] Start: 03-18-2023 End: 03-18-2023 ambulatory Shelley Mc Other [employer] Other Start: 03-18-2023 Office outpatient vi sit 15 minutes Shelley Mc [facility] Start: 03-18-2023 End: 03-18-2023 Patient encounter procedure DO Shelley Mc Work Phone: [facility] Work Phone: Start: 03-13-2023 End: 03-14-2023 ambulatory Bia Goldman APRN-[employer] SALES REPRESENTATIVE Facility: [facility] Start: 03-11-2023 End: 03-11-2023 ambulatory Imad Asaad Facility:[facility] Start: 03-11-2023 End: 03-11-2023 Admission to same day surgery center DO Thu Nicolasa Work Phone: [facility] [place] Work Phone: Start: 03-11-2023 End: 03-11-2023 ambulatory DO Thu G Nicolasa Work Phone: [facility] Work Phone: Start: 02-27-2023 End: 02-27-2023 ambulatory Shelley Mc Other [employer] Other Start: 02-27-2023 Encounter by patricia Mc [facility] Start: 02-24-2023 End: 02-24-2023 ambulatory Imad Asaad Other [employer] Other Start: 02-24-[address] [facility] G[facility] Start: 02-20-2023 End: 02-20-2023 ambulatory Shelley Mc Other [employer] Other Start: 02-20-2023 Office outpatient ne w [address] [facility] [place] Start: 02-19-2023 Office outpatient vi sit 25 minutes Wen Pollack [facility] Start: 02-19-2023 End: 02-19-2023 ambulatory Thu Nicolasa [facility] [employer] Other Start: 02-19-2023 End: 02-20-2023 Patient encounter procedure DO Thu Nicolasa Work Phone: [facility] Work Phone: Start: 02-19-2023 End: 02-19-2023 Patient encounter procedure DO Shelleylidia Mc Work Phone: [facility] Work Phone: Start: 02-06-2023 End: 02-06-2023 ambulatory THU Jennifer ELLISE Not Available Start: 02-04-2023 End: 02-05-2023 ambulatory RIO SCHULZ Not Available Start: 01-24-2023 End: 01-24-2023 ambulatory Thu Nicolasa Facility:[facility] Start: 01-24-2023 End: 01-25-2023 ambulatory Sam Herbert MD Facility:[facility] Start: 01-22-2023 End: 01-22-2023 ambulatory Thu Nicolasa Facility:[facility] Start: 01-17-2023 End: 03-21-2023 ambulatory Thu Nicolasa Facility:[facility] Start: 01-15-2023 End: 01-15-2023 ambulatory Imad Asaad Other [employer] Other Start: 01-15-2023 Office outpatient vi sit 25 minutes Imad Asaad [facility] Start: 01-11-2023 End: 03-20-2023 ambulatory Mati Bell Facility:[facility] Start: 01-10-2023 End: 01-11-2023 ambulatory Thu Nicolasa Facility:[facility] Start: 01-10-2023 End: 01-11-2023 ambulatory Sam Herbert MD Facility:[facility] Start: 12-24-2022 End: 12-24-2022 ambulatory Imad Asaad Facility:[facility] Start: 12-24-2022 End: 12-24-2022 Patient encounter procedure DO Thuniraj Linda Work Phone: [facility] Work Phone: Start: 12-12-2022 End: 12-12-2022 ambulatory Imad Asaad Other [employer] Other Start: 12-12-2022 Office outpatient ne w 45 minutes Imad Asaad [facility] Start: 12-11-2022 End: 12-12-2022 ambulatory [facility] Facility:[facility] Start: 12-04-2022 End: 12-04-2022 ambulatory [facility] Facility:[facility] Start: 11-18-2022 End: 11-19-2022 ambulatory Bia Goldman APRN-INB[employer] SALES REPRESENTATIVE Facility:[facility] Start: 10-07-2022 End: 10-07-2022 ambulatory [facility] Facility:[facility] Start: 10-01-2022 End: 10-01-2022 ambulatory [facility] Facility:[facility] Start: 08-12-2022 End: 12-25-2022 ambulatory [facility] Facility:[facility] Start: 07-16-2022 End: 07-16-2022 ambulatory [facility] Facility:[facility] Start: 07-15-2022 End: 07-16-2022 ambulatory [facility] Facility:[facility] Start: 06-21-2022 End: 01-13-2023 ambulatory [facility] Facility:[facility] Start: 05-16-2022 End: 07-18-2022 ambulatory [facility] Facility:[facility] Start: 04-12-2022 End: 04-13-[address] MALATHI LOUIS Facility:[facility] Start: 02-20-2022 Office outpatient vi sit 25 minutes Wen Pollack [facility] Start: 02-20-2022 End: 02-20-2022 ambulatory DO Thu Linda Work Phone: [facility] Work Phone: Start: 02-20-2022 End: 02-20-2022 Patient encounter procedure DO Thu Linda Work Phone: [facility] Start: 11-06-2021 End: 11-07-[address] YAN STRICKLAND Facility:[facility] Start: 11-01-2021 ambulatory LOR Shaffer [facility] Faci lity:[facility] Start: 10-30-2021 Encounter for preprocedural cardiovascular examination [facility] Start: 10-26-2021 End: 10-27-2021 ambulatory LOR Shaffer [facility] Facility:[facility] Start: 10-26-2021 End: 10-27-2021 Encounter for preprocedural cardiovascular examination [facility] Deena [facility] Facility:[facility] Start: 10-08-2021 End: 10-08-2021 ambulatory LOR Shaffer [facility] Facility:[facility] Start: 10-02-2021 Encounter for other preprocedural examination [facility] Start: 10-02-2021 Encounter for preprocedural laboratory examination [facility] Start: 10-01-2021 End: 10-02-2021 ambulatory LOR Shaffer [facility] Facility:[facility] Start: 10-01-2021 End: 10-02-2021 Encounter for preprocedural laboratory examination LOR Shaffer [facility] Facility:[facility] Start: 06-09-2021 End: 06-10-2021 ambulatory LOR Shaffer [facility] Facility:[facility] Start: 02-07-2021 End: 02-07-2021 ambulatory Wen Pollack Other [employer] Other Start: 02-07-2021 Office outpatient vi sit 25 minutes [facility] Start: 12-06-2020 Office outpatient ne w 45 minutes [facility] Procedures Date Procedure Procedure Detail Performing Clinician Start: 04-24-2023 Esophagogastroduodenoscopy DO Shelley cisneros Work Phone: Start: 03-11-2023 Ultrasonic guidance for needle biopsy DO Thu Linda Work Phone: Start: 12-24-2022 Ultrasound elastography of liver DO Toni Linda Work Phone: Plan of Treatment Date Care Activity Detail Author Start: 09-07-2023 Influenza vaccination Influenza Vacc ine (#1) [facility] Comment on above: Postponed from 11/08 (Patient Refused) Start: 08-06-2023 End: 08-06-2023 Patient encounter procedure 08/06/2023 3:45 PM EDT [facility] [address] [place] [address] Clinton Muller MD [address] [place] [address] [facility] Start: 05-15-2023 End: 05-15-2023 Social Work 05/15/2023 1:00 PM EST Social Work [facility] [address] [place] [address] Rio Schulz, [facility] [address] [place] [address] [facility] Start: 05-08-2023 Hemoglobin A1c measurement Diabetes: Hemoglobin A1C [facility] Start: 04-29-2023 End: 04-29-2023 Professional / ancillary services management 04/29/2023 10:30 AM EST Ancillary Procedure [facility] [address] [place] [address] [facility] Start: 04-24-2023 [facility] Start: 03-11-2023 [facility] Start: 12-24-2022 [facility] Start: 2015 Screening for malign ant neoplasm of cervix [facility] Start: 2006 Screening for malign ant neoplasm of cervix Pap Smear [facility] Start: 2004 Urine screening for protein Diabetes: Urine Protein Screening [facility] Start: 1995 Glaucoma screening Diabetes: R etinopathy Screening [facility] Patient [facility] Work Phone: Immunizations Immunization Date Immunization Notes Care Provider Figueroa gonzalez 02-09-2021 COVID-19 Vaccine Moderna - Documentation Purposes Only Shelleysharlene Mc Other [facility] 07-01-2020 COVID-19 Vaccine Moderna - Documentation Purposes Only Shelley Mc Other [facility] 06-03-2020 COVID-19 Vaccine Moderna - Documentation Purposes Only Shelley Mc Other [facility] NEGATED: Highlighted row has not occurred!02-20-2023 Flu Shot - Documentation Purposes Only Patient Objection Shelleylidia Mc Other [employer] Other Payers Date Payer Category Payer Unknown [id number] 2022 Medicaid [id number] 2022 Self-pay [id number] 2020 Medicaid [employer] [place] [id number] 2020-Present [address] [place] [address] [id number] 2019 Unknown 2019 Unknown [id number] 1985 Unknown [id number] 2.16.840.1.068105.3.579.2. 593 1985 Unknown [id number] 2.16.840.1.566142.3.579.2. 593 1985 Unknown [id number] 2.16.840.1.860436.3.579.2. 593 1985 Unknown [id number] 2.16.840.1.869909.3.579.2. 593 1985 Unknown [id number] 2.16.840.1.569100.3.579.2. 593 1985 Unknown [id number] 2.16.840.1.110439.3.579.2. 593 1985 Unknown [id number] 2.16.840.1.051962.3.579.2. 593 1985 Unknown [id number] 2.16.840.1.725079.3.579.2. 196 1985 Unknown [id number] 2.16.840.1.655313.3.579.2. 196 1985 Unknown [id number] 2.16.840.1.502698.3.579.2. 196 1985 Unknown [id number] 2.16.840.1.662691.3.579.2. 196 1985 Unknown [id number] 2.16.840.1.679034.3.579.2. 196 1985 Unknown [id number] 2.16.840.1.332154.3.579.2. 1259 1985 Unknown [id number] 2.16.840.1.055679.3.579.2. 1259 1985 Unknown [id number] 2.16.840.1.587628.3.579.2. 1259 1985 Unknown [id number] 2.16.840.1.634046.3.579.2. 1259 1985 Unknown [id number] 2.16.840.1.558714.3.579.2. 1259 1985 Unknown [id number] 2.16.840.1.027862.3.579.2. 718 1985 Unknown [id number] 2.16.840.1.851306.3.579.2. 718 1985 Unknown [id number] 2.16.840.1.944430.3.579.2. 718 1986 Unknown [id number] 2.16.840.1.245272.3.579.2. 1985 Unknown [id number] 2.16.840.1.959099.3.579.2. 1985 Unknown [id number] 2.16.840.1.979864.3.579.2. 1985 Unknown [id number] 2.16.840.1.801393.3.579.2. 1985 Unknown [id number] 2.16.840.1.953136.3.579.2. 1985 Unknown [id number] 2.16.840.1.660178.3.579.2. 1985 Unknown [id number] 2.16.840.1.154739.3.579.2. 1985 Unknown [id number] 2.16.840.1.027026.3.579.2. 1985 Unknown [id number] 2.16.840.1.272954.3.579.2. 1985 Unknown [id number] 2.16.840.1.031274.3.579.2. 1985 Unknown [id number] 2.16.840.1.195285.3.579.2. 1985 Unknown [id number] 2.16.840.1.928167.3.579.2. 1985 Unknown [id number] 2.16.840.1.027627.3.579.2. 1985 Unknown [id number] 2.16.840.1.161093.3.579.2. 1985 Unknown [id number] 2.16.840.1.076240.3.579.2. 1985 Unknown [id number] 2.16.840.1.068074.3.579.2. 718 1985 Unknown [id number] 2.16.840.1.426993.3.579.2. 718 1959 Unknown [id number] 2.16.840.1.923568.19 1959 Unknown [id number] 1959 Worker's Compensation [id number] [facility] [id number] 2.16.840.1.963053.19 Private Health Insurance [id number] 2.16.840.1.719758.19 Unknown [id number] 2.16.840.1.795749.3.579.2. 531 Unknown [id number] 2.16.840.1.751762.3.579.2. 531 Unknown [id number] Unknown [id number] Social History Date Type Detail Facility Start: 09-25-2022 End: 04-02-2023 Sex Assigned At [facility] [employer] Other Start: 1985 Sex Assigned At Female F [facility] Start: 08-08-2022 End: 04-24-2023 Tobacco smoking status VAIS Ex-smoker (finding) [facility] History of tobacco use Current smoker [facility] History of tobacco use Cigarette Smoker [facility] Start: 08-08-2022 Tobacco use and exposure Smokeless tobacco non-user [facility] Start: 04-02-2023 Alcohol intake Lifetime non-d blaze (finding) [facility] Start: 09-25-2022 End: 04-02-2023 History of Social function [facility] Start: 08-05-2022 Tobacco Comment Last smoked: 1-5 yea rs [facility] Start: 09-25-2022 Alcohol Comment caffeine: none [facility] Start: 1985 Sex Assigned At Not on file [facility] Goals Date Patient Goal Desired Activity /State Clinical Notes 12-06-2020 to 04-24-2023 Note Date & Type Note Facility 04-24-2023 Procedure note [facility] 04-23-2023 Note Patient Education Ma terials Follows: [facility] 04-17-2023 Evaluation note Encounter Date Diagnosis Assessment Notes Apr, Cirrhosis of liver (ICD-10 - K74.60) Apr, Steatohepatitis (ICD-10 - K75.81) [employer] Other 01-29-2024 Note [id number] Clinical Discharge Summary PERSON INFORMATION Name MICHAEL RAMON Age 37 Years 1985 Sex FEMALE Language Cook Islander PCP Shelley Mc DO Marital Status Med Service Pain Management Surgery Acct# Arrival 04/04/2023 09:45:39 Visit Reason SACROILIITIS Acuity LOS 009 20:28 Address: [address] [place] [id number] Comment: PROVIDER INFORMATION VITALS INFORMATION Vital Sign [...] by mouth) every day. TAKE 1 TABLET BYMOUTH IN THE MORNING WITH MEALS. pregabalin (Lyrica [...] by mouth) every day. TAKE 1 TABLET BYMOUTH IN THE MORNING WITH MEALS. pregabalin (Lyrica [...] by mouth) every day. TAKE 1 TABLET BYMOUTH IN THE MORNING WITH MEALS. pregabalin (Lyrica [...] by mouth) every day. TAKE 1 TABLET BYMOUTH IN THE MORNING WITH MEALS. pregabalin (Lyrica 50 mg oral capsule) 1 cap(s) Oral (given by mouth) once a day (in the evening). Refills: 0. tirzepatide (Mounjaro 2.5 mg/0.5 mL subcutaneous solution) 2.5 Milligram Subcutaneous (more contentnot included)...[facility]-6766 Note [id number] The history of present illness has been reviewed. There are no changes document. [Electronically Signed on: 04/04/2023 10:21 EST] SAM HERBERT MD [Verified on: 04/04/2023 10:21 EST] SAM HERBERT MD [Transcribed on: 04/03/2023 12:50 EST] [facility]01-09-2024 Evaluation note* Encounter Date Diagnosis Assessment Notes Treatment Notes Treatment Clinical Notes Mar, GERD (gastroesophagea l reflux disease) (ICD-10 - K21.9) Will send PPI daily, will recheck at upcoming appt in Mar, Irregular periods (ICD-10 - N92.6) Given new onset intermenstrual bleeding and menorrhagia will refer to gynecology teacher for evaluation. Discussed likely need for pelvic u/s and possible EMB. Pap deferred today due to period. [facility] Other 12-14-2023 Evaluation note* Encounter Date Diagnosis [...] depression in full remission (ICD-10 - F32.5) [facility] Other 12-13-2023 NotePatient Education Materials [facility]dez[facility]tq95-[facility]-3928 Evaluation note* Encounter Date Diagnosis Assessment Notes [...] sleepiness, or poor response to treatment. . [facility] Other 11-20-2023 Note [id number]11-17-2023 [facility] SURGERY Clinical Discharge Summary PERSON INFORMATION Name MICHAEL RAMON Age 37 Years 1985 Sex FEMALE Language Cook Islander PCP Nicolasa SMITH, Thu Marital Status Med Service Pain Management Surgery Acct# Arrival 01/24/2023 11:22:25 Visit Reason LUMBAR SPINAL STENOSIS WITH NEURO CLAUDICATION Acuity LOS 002 02:56 Address: [facility] [place] [facility] [address] Comment: PROVIDER INFORMATION VITALS INFORMATION Vital Sign [...] Type Location Start Finish State PT 30 (MAGR) PT 01/27/2023 9:30 AM 01/27/2023 10:00 AM Confirmed PT 30 (more content not included)...[facility] HospitalNqcgfslh36-60-3224 Note [id number] The history of present illness has been reviewed. There are no changes document. [Electronically Signed on: 01/24/2023 07:23 EST] SAM HERBERT MD [Verified on: 01/24/2023 07:23 EST] SAM HERBERT MD [Transcribed on: 01/23/2023 13:43 EST] [facility]11-15-2023 NotePatient Education Materials Follows:[facility]Xmestdhf10-23-2653 Evaluation note* Encounter Date Diagnosis Assessment Notes Treatment Notes Treatment Clinical Notes Jan, Hepatic steatosis (ICD-10 - K76.0) [facility] Other 10-05-2023 Evaluation note* Encounter Date Diagnosis Assessment Notes Treatment Notes Treatment Clinical Notes Dec, HAMMOND (nonalcoholic steatohepatitis) (ICD-10 - K75.81) PATIENT TO PROCEED WITH LABS AND FIBRSOCAN. Dec, Hepatic steatosis (ICD-10 - K76.0) Dec, Elevated liver enzymes (ICD-10 - R74.8) [facility] Other 09-27-2023 NotePatient Education Materials Follows: [facility]Iftbsoid68-58-5454 NotePatient Education Materials Follows: Hypertension, Adult Your [...] Keep all follow-up visits. Medicines ? Take zjvx-pgr-rxrdonh and prescription medicines only as told by [...] ? High blood pr (more content not included)...[facility] HospitalDekctmqk83-69-9286 Note Patient Education Materials Follows: Hypertension, Adult [...] doctor. This is important. Medicines ? Take qjlz-kff-ztffpfr and prescription medicines only as told by [...] for high bl (more content not included)... [facility] HospitalPiemrznw29-68-6578 Note [id number]12-14-2022 Evaluation note* Encounter Date Diagnosis Assessment [...] sleepiness, or poor response to treatment. . [facility] Other 08-29-2022 NotePROCEDURE: XR FOOT RT MIN 3 VIEWS COMPARISON: 06/09/2021 HISTORY: Pain FINDINGS: BONES:Interval removal of fixation plate in the first metatarsal-phalangeal joint. No acute fracture or dislocation. SOFT TISSUES:Postsurgical soft tissue swelling and subcutaneous emphysema EFFUSION:None visible. OTHER: Negative. IMPRESSION: Interval removal of first metatarsal-phalangeal joint fusion hardware Electronically authenticated by: WEN MCCABE Date: 2021-11-05 13:57[facility]12-01-2021 Evaluation note* Encounter Date Diagnosis Assessment [...] sleepiness, or poor response to treatment. . [facility] Other 09-29-2021 Evaluation note* Encounter Date Diagnosis [...] changes in symptoms and/or problems with treatment [facility] Other Evaluation noteNo assessment information available [facility] Work Phone: Evaluation noteNo [facility] [employer] Other Evaluation note* Diagnosis Onset Date Resolution Status Elevated liver enzymes acute [facility] Work Phone: Evaluation note* Diagnosis Major depressive disorder with current active episode, unspecified depression episode severity, unspecified whether recurrent (CMS/HCC) documented in this encounter [facility] Author Job Martinez [facility] April 24, 2023 2:00pm Note Date/Time April 24, 2023 2:00pm [facility] [address] [place] [address] Gastroenterology H&P Signed Patient: Michael Ramon MR#: [id number] : 1985 Acct:[id number] Age/Sex: 38 / F Adm Date: 4 Loc: Room: Type: [facility] Attending Dr: Job Martinez MD Copies to: Shelley Mc, DO Job Martinez MD~ Date of Service: 04/24/2023 HISTORY & PHYSICAL: Patient's history with special attention to the cardiovascular, pulmonary systems and the current problem was reviewed with the patient immediately prior to the procedure. Present medications and doses reviewed in the EMR. Allergies and pertinent laboratory tests were also reviewedat this time in the EMR. The physical examination, as below, was then performed. Indication, assessment and HPI: 38-year-old female with liver cirrhosis here forEGD for esophageal variceal screening Family history of GI malignancy? No PHYSICAL EXAMINATION Mouth and Pharynx : Moist mucus membranes, normal dentition Cardiac: Regular rate, regular rhythm Pulmonary: Clear to auscultation bilaterally, no wheezing Neurological: Alert and oriented x3, no focal deficits noted Abdomen: Abdomen soft, non-tender REVIEW OF SYSTEMS Constitutional: Denies malaise, fevers Cardiovascular: Denies chest pain, palpitations Respiratory: Denies shortness of breath, wheezing Gastrointestinal: Per HPI Genitourinary: Denies dysuria, polyuria Musculoskeletal: Denies joint swelling, joint stiffness Neurological: Denies numbness, tingling Integumentary: Denies rashes, skin lesions Endocrine: Denies fatigue, weight loss Written informed consent obtained from the patient. Risks (including but not limited to perforation, infection, bloating, bleeding, need for emergent surgeryand loss of life), benefits and alternatives explained and questions answered. The patient verbalized understanding. Based on history patient is an appropriate candidate for the procedure. Job Martinez M.D. Documented By: Job Martinez MD 04/24/23 1400 Signed By: <Electronically signed by Job Martinez MD> 04/24/23 1400 [facility] Work Phone: Hissiay general Narrative - Reported* Type Description Date Medical History depression Medical History anxiety [facility] Other Hisnoyn general Narrative - Reported* Type Description Date Medical History depression Medical History anxiety Medical History severe PRAKASH [facility] Other Hisqwtz general Narrative - Reported* Type Description Date Medical History depression Medical History anxiety Medical History severe PRAKASH Medical History diabetes mallitus Medical History sleep apnea Surgical History cholecystectomy 2005 Surgical History RIGHT FOOT-HELIX 2020 Hospitalization History SEE ABOVE [facility] Other Hisdejh general Narrative - Reported* Type Description Date Medical History depression Medical History anxiety Medical History severe PRAKASH Medical History diabetes mallitus Medical History sleep apnea Surgical History cholecystectomy [address] Cheek--RIGHT FOOT-HELIX [address] Cheek--right foot hardw are removed 2022 Hospitalization History see above [facility] Other Chief Complaint and Reason for Visit Chief Complaint Obstructive sleep ap natalie / es pt Chief Complaint Fatty Liver k75.81 Obstructive sleep apnea k76.0 Chief Complaint Obstructive sleep ap natalie Get Established k76.0 Pap Fatty Liver, Cirrhosis, Rule out varices Fatty Liver, Cirrhosis, Rule out varices Reason for Visit Elevated liver enzym es Advance Directives No Advanced Directives Records Found Advance Directive Response Recorded Date/ Time Advance Directives No October 03 7:34am Summary Purpose Family History No Family History Records Found Relationship Condition Age at Onset Recorded Date/T laci family member Diabetes mellitus Unknown Hepatic cirrhosis Unknown grandparent Heart disease Unknown Not Specified Diabetes mellitus Unknown Family history of colon cancer Unknown Malignant neoplasm Unknown Reason for Referral Reason New onset intermenst rual bleeding and menorrhagia x 2 months Diagnosis 1 Irregular periods (N 92.6) Referral Organization [facility] Referring Provider First Name Shelley Referring Provider Last Name Jesusita Referring Provider Specialty Family Medi community health Referred Organization [facility] Referred Address ,[place],[address] Referred Provider Specialty OB - Gynecol ogy Referral Priority Routine Additional Source Comments REASON FOR VISIT (unrecogniz ed section and content) Reason Comments Follow-up Care Teams (unrecognized sec tion and content) Team Status: Inactive Member Role Status Dates Wen Pollack MD Attending Provider Active Thu Linda DO Primary Care Provider Active Team Status: Active Member Role Status Shelly Linda DO Primary Care Provider Active Team Status: Active Member Role Status Shelly Mc DO Primary Care Provider Active Team Status: Inactive Member Role Status Shelly Mc DO Primary Care Provider Active Job Martinez MD Attending Provider Active Team Status: Inactive Member Role Status Dates Wen Pollack MD Attending Provider Active Shelley Mc DO Primary Care Provider Active Team Status: Inactive Member Role Status Shelly Linda DO Primary Care Provider Active Job Martinez MD Attending Provider Active Team Status: Inactive Member Role Status Dates Wen Pollack MD Attending Provider Active S tart: February 19, 2023 End: February 19, 2023 Team Status: Inactive Member Role Status Shelly Pollack MD Attending Provider Active S tart: February 19, 2023 End: February 19, 2023 Shelley Mc DO Primary Care Provider Active Start: February 19, 2023 End: February 19, 2023 Team Status: Inactive Member Role Status Shelly Mc DO Attending Provider Active St art: February 20, 2023 End: February 20, 2023 Team Status: Inactive Member Role Status Shelly Mc DO Primary Care Provider Active Start: March 11, 2023 End: March 11, 2023 Job Martinez MD Attending Provider Active Start: March 11, 2023 End: March 11, 2023 Team Status: Inactive Member Role Status Shelly Mc DO Attending Provider Active St art: March 18, 2023 End: March 18, 2023 Team Status: Inactive Member Role Status Shelly Mc DO Primary Care Provider Active Start: April 24, 2023 End: April 24, 2023 Job Martinez MD Attending Provider Active Start: April 24, 2023 End: April 24, 2023 Team Status: Active Member Role Status Dates Shelley Mc DO Primary Care Provider Active Start: April 24, 2023 Job Martinez MD Attending Provider, Other Provider Active Start: April 24, 2023 [employer] Automatic Relationship Specialty Start Date End Date Thu Linda [address] [place] [address] PCP - [facility] 09/07/22 Shelley Mc DO [address] [place] [address] PCP - General Family Medicine 04/02/23 Goals (unrecognized section and content) Goals may be documented in a n alternate section INFORMATION SOURCE (unrecogn ized section and content) DATE CREATED AUTHOR 04/14/2022 [facility] DATE CREATED AUTHOR AUTHOR'S ORGANIZ ATION 04/10/2023 [facility] DATE CREATED AUTHOR AUTHOR'S ORGANIZ ATION 04/18/2023 [facility] EPIC DATE CREATED AUTHOR AUTHOR'S ORGANIZ ATION 04/24/2023 [facility] DATE CREATED AUTHOR AUTHOR'S ORGANIZ ATION 04/26/2023 [facility] FOR RECORDS PERTAINING TO PATIENTS WHO [...] BE BASED ON THE PRIMARY CLINICAL RECORDS. [employer] provides no warranty or guarantee of the accuracy or completeness of information in this document.
--- NOTE | 2023-04-30 10:16 | VEIN_ITS ---
[address] [address] Patient Name: MICHAEL RAMON MRN: [id number] date: 1985 Sex: F Assigned Patient Location: Current Patient Location: Accession/Order Number: [id number] Exam Date: 04/30/2023 10:29 Report Date: 04/30/2023 11:38 At the request of: WEN MCCABE Procedure: VC Endovenous Ablation 1VeinLT EXAMINATION: VC Endovenous Ablation 1VeinLT HISTORY: Pain due to varicose veins of bilateral legs I83.813 The risks and benefits of the procedure had been previously discussed, and were rediscussed at length. Informed written consent was obtained. Torsten White RN and Yanira Sotomayor RDMS assisted. Time out procedure was performed. The left lower extremity was prepared and draped in the usual sterile fashion to allow knee flexion in the sterile field. Duplex ultrasound probe was draped in a sterile cover, sterile transmission gel was used. Venous mapping was performed with the areas of dilation and large tributaries marked. The total length was 57 cm from the entry 3 cm above the ankle to 3 cm below the Saphenofemoral junction. The diameter of the left great saphenous vein ranged from 10.4 mm. A 30 gauge needle and 1% buffered lidocaine was used to anesthetize the entry site. A 4 mm incision was made with a scalpel and the saphenous vein was entered percutaneously under direct ultrasound guidance with a micropuncture set, a single stick was successful in gaining access. A micro-guide wire was inserted and the needle removed. A micro-set including a dilator was inserted over the microwire and the needle and dilator were removed. A guide wire was inserted through the micro-set and guided through the saphenous vein to the saphenofemoral junction. The dilator was removed and an introducer sheath was inserted over the wire until the end of the sheath entered the saphenofemoral junction. The dilator and wire were removed and the 600 micron fiber was introduced and placed and positioned so that it extended beyond the sheath and was 3 cm distal to the saphenofemoral or saphenopopliteal junction. Final position of the fiber was determined by ultrasound guidance and duplex imaging. Tumescent anesthetic was delivered by ultrasound guidance. 300 cc of fluid was delivered along the entire course of the saphenous vein. The solution consisted of 1000 cc of normal saline with 40 mL of 1% lidocaine and 20 mL of sodium bicarbonate. A final positioning check was made. The energy source was turned on by means of the foot pedal and the fiber and sheath were withdrawn. The total number of Joules delivered was 3019. The laser was active for 377 seconds under continuous pulse, average laser use of 8 J. Laser start time 11:08 AM, 04/30/2023. Laser stop time 11:18 AM, 04/30/2023. A duplex ultrasound revealed compressibility and flow at the saphenofemoral junction immediately after the procedure. Hemostasis at the access site was achieved. The skin incision of the saphenous vein was closed with a 4 x 4. A compression stocking was applied. Postop instructions were given. A follow up appointment was recommended and scheduled. The patient tolerated the procedure well. Electronically authenticated by: MALATHI LOUIS Date: 04/30/2023 11:38
[2023-04-30] MEDS: 0.9 % SODIUM CHLORIDE 500 ML, LIDOCAINE HCL 20 ML, SODIUM BICARBONATE 10 MEQ INJ (10:34)
[2023-04-30] MEDS: LIDOCAINE HCL 1% 100 MG/10 ML MDV INJ (10:36)
== END 2023-04-30 10:09 | disposition home or self-care (01) ==
LOC: VC 10:08
PROVIDERS: PCP Radiology Diagnostic Radiology; Visit Provider Radiology Diagnostic Radiology
DX: I83.813 Varicose veins of bilateral lower extremities with pain (principal)
CPT/HCPCS: 36478

== ENCOUNTER 2023-05-08 12:51 | Outpatient (OUT) | payer OTHER, SELFPAY ==
--- NOTE | 2023-05-08 | VEIN_ITS ---
Patient Name: MICHAEL RAMON MR#: [id number] : 1985 Exam Date: 05/08/2023 Ordering Doctor: DR PRASAD MENENDEZ M.D. RADIOLOGY REPORT PROCEDURE: VC EXT VENOUS LT LIMITED COMPARISON: None. INDICATIONS: Phlebitis of superficial vein of lt lower extremity I80.02 TECHNIQUE: Lower extremity carlson scale and Duplex Doppler evaluation of the deep venous system from the inguinal ligament through the calf veins. FINDINGS: REGION: Left lower extremity. THROMBI: Negative for DVT. Heat induced thrombus visualized 2.6 cm from the SFJ. The heat induced thrombus extends from groin to distal calf. COMPRESSIBILITY: Non-compressible segments corresponding to thrombus FLOW: Areas of no flow corresponding to thrombus CONCLUSION: Post ablation occlusion of the treated left great saphenous vein with heat induced thrombus 2.6 cm from the saphenofemoral junction Dictated by: Prasad Menendez MD on 05/08/2023 at 13:09 Approved by: Prasad Menendez MD on 05/08/2023 at 13:10
--- NOTE | 2023-05-08 12:52 | VEIN_ITS ---
Patient Name: MICHAEL RAMON MR#: [id number] : 1985 Exam Date: 05/08/2023 Ordering Doctor: DR PRASAD MENENDEZ M.D. RADIOLOGY REPORT PROCEDURE: [facility] - OFFICE VISIT FOLLOW UP [facility] PROGRESS NOTES: The patient reports no significant problems following intravenous laser ablation of the left great saphenous vein. The patient does report some mild numbness along the medial left ankle. The patient did not require oral analgesics. The patient has worn her compression stockings. The patient has tried exercise Physical exam demonstrates no bruising. Left great saphenous vein can be partially palpated. No erythema or warmth to suggest cellulitis or thrombophlebitis. The incision is sealed Review of the ultrasound performed the same day demonstrates occlusive thrombus extending throughout the treated left great saphenous vein. Heat induced thrombus is 2.6 cm from the saphenofemoral junction. No deep vein thrombus. The patient expressed a desire to proceed with treatment of incompetent small saphenous veins with intravenous laser ablation. VEIN/[facility] EST LMTD IMPRESSION: 1. Successful ablation of the left great saphenous vein. 2. Persistent bilateral incompetent small saphenous veins. PLAN: Endovenous laser ablation right small saphenous vein Nurse notes, history and physical were reviewed and confirmed, see attached forms. The nurse was present throughout the physical exam and consultation Dictated by: Prasad Menendez MD on 05/08/2023 at 14:01 Approved by: Prasad Menendez MD on 05/08/2023 at 14:50
== END 2023-05-08 12:52 | disposition home or self-care (01) ==
LOC: VC 12:51
PROVIDERS: PCP Radiology Diagnostic Radiology; Visit Provider Radiology Diagnostic Radiology
DX: I80.02 Phlebitis and thrombophlebitis of superficial vessels of left lower extremity (principal)
CPT/HCPCS: 93971; G0463

== ENCOUNTER 2023-06-17 12:52 | Outpatient (OUT) | payer OTHER, SELFPAY ==
--- NOTE | 2023-06-17 12:57 | VEIN_ITS ---
[address] [address] Patient Name: MICHAEL RAMON MRN: [id number] date: 1985 Sex: F Assigned Patient Location: Current Patient Location: Accession/Order Number: [id number] Exam Date: 06/17/2023 13:05 Report Date: 06/17/2023 14:45 At the request of: WEN MCCABE Procedure: VC Endovenous Ablation 1VeinRT EXAMINATION: VC Endovenous Ablation 1VeinRT HISTORY: Pain due to varicose veins of bilateral legs I83.813 COMPARISON: No relevant comparison available. TECHNIQUE: The risks and benefits of the procedure had been previously discussed, and were rediscussed at length. Informed written consent was obtained. Radha Manley and Anila Kaplan assisted. Time out procedure was performed. The right lower extremity was prepared and draped in the usual sterile fashion to allow knee flexion in the sterile field. Duplex ultrasound probe was draped in a sterile cover, sterile transmission gel was used. Venous mapping was performed with the areas of dilation and large tributaries marked. The total length was 21 cm from the entry 12 cm above the lateral malleolus to where the vein dives into the muscular sheath. The diameter of the smallsaphenous vein ranged from 4-6 mm. A 30 gauge needle and 1% buffered lidocaine was used to anesthetize the entry site. A 4 mm incision was made with a scalpel and the saphenous vein was entered percutaneously under direct ultrasound guidance with a micropuncture set, a single stick was successful in gaining access. A micro-guide wire was inserted and the needle removed. A micro-set including a dilator was inserted over the microwire and the needle and dilator were removed. A 0.018 wire was inserted through the micro-set and threaded through the saphenous vein to the saphenofemoral junction. The dilator was removed and an introducer sheath was inserted over the wire until the end of the sheath entered the saphenofemoral junction. The dilator and wire were removed and the 600 micron fiber was introduced and placed and positioned so that it extended beyond the sheath and was 3 cm peripheral to the saphenofemoral femoral junction. Final position of the fiber was determined by ultrasound guidance and duplex imaging. Tumescent anesthetic was delivered by ultrasound guidance. 100c of fluid was delivered along the entire course of the saphenous vein. The solution consisted of 1000 cc of normal saline with 40 mL of 1% lidocaine and 20 mL of sodium bicarbonate. A final positioning check was made. The energy source was turned on by means of the foot pedal and the fiber and sheath were withdrawn. The total number of Joules delivered was 981The laser was active for 123conds under continuous pulse, average laser use of 8 J. Laser start time 1:43 PM 06/17/2023 . Laser stop time 1:45 PM 06/17/2023 . A duplex ultrasound revealed compressibility and flow at the saphenofemoral junction immediately after the procedure. Hemostasis at the access site was achieved. The skin incision of the saphenous vein was closed with a 4 x 4. A compression stocking was applied. Postop instructions were given. A follow up appointment was recommended and scheduled. The patient tolerated the procedure well and was discharged in good condition . VEIN/VC Endovenous Ablation 1VeinRT IMPRESSION: Technically successful endovenous laser ablation of the right small saphenous vein Electronically authenticated by: WEN MCCABE Date: 06/17/2023 14:45
--- OUTSIDE RECORDS SUMMARY | 2023-06-17 13:09 | XMS_ITS | CCD ---
Author Organization [facility] Care Team Providers Care Document Coordinator Name Role Phone Wen Pollack Unavailable MD Wen Pollack Attending Provider DO Thu Baldwin Primary Care Provider LOR CHEEK Attending Unavailable SHARON REYES Consulting Unavailable MISC, DR GARCIA Primary Care Unavailable LOR CHEEK Admitting Unavailable ADIA, LOR Shaffer Admitting Unavailable ZIBRIDGET, DR MALATHI Larson Consulting Unavailable REQUEST, NONE [...] Unavailable REQUEST, NONE LISTED Primary Care Unavaila ble WEST, DR WEN Bassett Consulting Unavailable LOR CHEEK Consulting Unavailable ADRYAN CARLSON Consulting Unavailable BRAYDON KEILY Nevarez Consulting Unavailable KEILY PAYNE Consulting Unavailable LOR CHEEK Attending Unavailable LOR CHEEK Consulting Unavailable MISC, DR GARCIA Primary Care Unavailable LOR CHEEK Admitting Unavailable AGADRYAN GATES Consulting Unavailable HERIBERTO, DR MALATHI Larson Consulting Unavailable REQUEST, NONE LISTED Primary Care Unavaila WEI Cramer Attending Unavailable WEI TUTTLE Admitting Unavailable WEI TUTTLE Consulting Unavailable LOR CHEEK Attending Unavailable MISC, DR GARCIA Primary Care Unavailable SAWYER, DR WEN Bassett Consulting Unavailable LOR CHEEK Admitting Unavailable LOR CHEEK Consulting Unavailable Asaad, Imad Unavailable Wendy Mcria Unavailable Nicolasa DO Thu G Primary Care Provider MD Job Martinez Attending Provider MD Wen Pollack Attending Provider [phone] DO Jesusita Shelley A Primary Care Provider MD Wen Pollack Attending Provider [phone] MD Job Martinez Attending Provider [phone] Nicolasa DO, Thu G Unavailable [facility] DO Shelley Primary Care Provider [phone] Asaad, Imad Admitting Unavailable Mc, Shelley A Primary Care Unavailable Asaad, Imad Attending Unavailable Nicolasa, Thu G Primary Care Unavailable Asaad, Imad Admitting Unavailable Asaad, Imad Attending Unavailable Wen Pollack Admitting Unavailable Wen Pollack Attending Unavailable Mc, Shelley A Primary Care Unavailable Mc, Shelley A Primary Care Unavailable Asaad, Imad Admitting Unavailable Asaad, Imad Attending Unavailable Mc, Shelley A Primary Care Unavailable Asaad, Imad Admitting Unavailable Asaad, Imad Attending Unavailable RIO SCHULZ Attending Unavailable CLINTON MULLER Attending Unavailable CLINTON MULLER Referring Unavailable RIO SCHULZ Attending Unavailable RIO SCHULZ Attending Unavailable RIO SCHULZ Attending Unavailable NICOLASA, THU G Attending Unavailable DO Jesusita Shelley A Primary Care Provider MD Job Martinez Attending Provider Keily Duvall Attending Unavailable Nicolasa, Thu Primary Care Unavailable Keily Duvall Admitting Unavailable Nicolasa, Thu Primary Care Unavailable Bell, Mati L Admitting Unavailable Ray Mati L Attending Unavailable Bia Goldman Admitting Unavailable Bia Goldman Attending Unavailable Nicolasa, Thu Primary Care Unavailable Bell, Mati L Admitting Unavailable Bell, Mati L Attending Unavailable Nicolasa, Thu Primary Care Unavailable Bell, Mati L Admitting Unavailable Nicolasa, Thu Primary Care Unavailable Bell, Mati L Attending Unavailable Longoria, Ulices Attending Unavailable Longoria, Ulices Admitting Unavailable Nicolasa, Thu Primary Care Unavailable Bell, Mati L Admitting Unavailable Bell, Mati L Attending Unavailable Nicolasa, Thu Primary Care Unavailable Mcgill, Bia M Attending Unavailable [facility], Shelley Primary Care Unavailable Mcgill, Bia M Admitting Unavailable KINDL, SAM F Admitting Unavailable KINDL, SAM F Attending Unavailable Nicolasa, Thu Primary Care Unavailable Nicolasa, Thu Primary Care Unavailable Mcgill, Bia M Admitting Unavailable Mcgill, Bia M Attending Unavailable KINDL, SAM F Admitting Unavailable KINDL, SAM F Attending Unavailable [facility], Shelley Primary Care Unavailable Nicolasa, Thu Primary Care Unavailable KINDL, SAM F Admitting Unavailable KINDL, SAM F Attending Unavailable KINDL, SAM F Admitting Unavailable KINDL, SAM F Attending Unavailable [facility], [facility] Primary Care Unavailable Nicolasa, Thu Primary Care Unavailable Bell, Mati L Referring Unavailable Lor Cheek Attending Unavailable Lor Cheek Admitting Unavailable Igor MACHUCA, Lorenzo Connors [facility] Primary Care Unavailable Igor MACHUCA, Lorenzo Connors Admitting Unavai lable Mcgill, Bia M Admitting Unavailable Mcgill, Bia M Attending Unavailable [facility], Shelley Primary Care Unavailable Mcgill, Bia M Admitting Unavailable Mcgill, Bia M Attending Unavailable [facility], [facility] Primary Care Unavailable Nicolasa, Thu Primary Care Unavailable Bell, Mati L Admitting Unavailable Bell, Mati L Attending Unavailable [facility], Shelley Primary Care Unavailable Bell, Mati L Admitting Unavailable Bell, Mati L Attending Unavailable Mcgill, Bia M Admitting Unavailable Mcgill, Bia M Attending Unavailable Nicolasa, Thu Primary Care Unavailable Nicolasa, Thu Primary Care Unavailable Longoria, Ulices Admitting Unavailable Longoria, Ulices Attending Unavailable KINDEtelvina, SAM F Attending Unavailable KINDEtelvina, SAM F Admitting Unavailable [facility], Shelley Primary Care Unavailable Nicolasa, Thu Primary Care Unavailable Bell, Mati L Attending Unavailable Bell, Mati L Admitting Unavailable Mcgill BRENDEN, Bia Kitchen Attending Pennie Herbert MD, Sam Funes Attending Kodi Herbert MD, Sam Funes Attending Kodi WILCOX, Bia Kitchen Attending Pennie Herbert MD, Sam Funes Attending Kodi Martinezier BRENDEN, Bia Kitchen Attending Pennie WILCOX, Bia Kitchen Attending Pennie Herbert MD, Sam Funes Attending Kodi beck Allergies Allergy Classification Reported Allergen(s) Allergy Type Date of Onset Reaction(s) Facility (5 sources) Iodine; Translations: [iodine] Drug Allergy 4 Unknown, Rash [facility] (1 source) Adhesive bandage; Translations: [Adhesive Bandage] Propensity to adverse reactions (disorder) [facility] (1 source) Povidone-Iodine ; Translations: [Betadine] Drug Allergy [facility] Medications Current Medications Medication Drug [...] day at the same time. 0 Active 24 hr buPROPion hydrochloride 300 mg extended release oral tablet (15 sources) Aminoketone Start: 03-11-2023 End: 04-28-2023 take 300 mg by mouth once daily in the morning Bupropion Hcl Active 300 MG PO Every morning April 28, 2023 9:42am take 1 tablet by merry th every twenty-four hours buPROPion HCl ER (XL) 150 MG 1 tablet in the morning Orally Once a day Active Clotrimazole (3 sources) Azole Antifungal Clotrimazole 1 % 1 application Externally Twice a day Active Clotrimazole 1 % 1 application Externally Twice a day Active escitalopram 10 mg [...] Orally Active melatonin 1 mg oral tablet (17 sources) Start: 03-11-2023 take 1 mg by mouth at bedtime Melatonin Active 1 MG PO Bedtime March 11, 2023 1:00am Melatonin 1 MG c apsule Melatonin 0 Active Melatonin Active metFORMIN hydrochloride 500 mg oral tablet (14 sources) Biguanide Start: 10-28-2022 End: 10-28-2023 take 500 mg by mouth once daily Metformin Active 500 MG PO Daily March 11, 2023 1:00am mounjaro 5 mg/0.5ml solution pen-injector (3 sources) [...] omeprazole 40 mg delayed release oral capsule (10 sources) Proton Pump Inhibitor Start: 05-23-2023 take 40 mg by mouth once daily Omeprazole Active 40 MG PO Daily May 23, 2023 12:00am Start: 04-24-2023 End: 04-25-2023 take 40 mg by mouth once daily Omeprazole Discontinued 40 MG PO Daily April 24, 2023 1:00am April 25, 2023 2:49pm Start: 03-18-2023 End: 05-23-2023 take 20 mg by mouth once daily Omeprazole Discontinued 20 MG PO Daily April 25, 2023 1:00am May 23, 2023 10:36am phentermine hydrochloride 37.5 mg oral capsule (3 sources) Sympathomimetic Amine Anorectic take 1 capsule by mouth every twenty-four hours Phentermine HCl 37.5 MG 1 capsule Orally Once a day Active Super Enzymes - (6 sources) Super Enzymes - as directed Orally Active Tirzepatide (5 sources) Start: 2023 Tirzepatide (Mounjaro) 7.5 mg/0.5 mL pen injector Active 0 .ROUTE .COMPLEX 4 May 12, 2023 9:14am INJECT 1 PEN SUBCUTANEOUSLY ONCE A WEEK Start: 03-11-2023 End: 05-12-2023 Tirzepatide (Mounjaro) 7.5 m g/0.5 mL Pen Injector Discontinued 7.5 MG SUBCUT every week March 11, 2023 1:00am May 12, 2023 9:14am Start: 03-11-2023 Tirzepatide (M ounjaro) 7.5 mg/0.5 mL Pen Injector Active 7.5 MG SUBCUT every week March 11, 2023 12:00am Completed/Discontinued Medications Medication Drug Class(es) Dates Sig (Normalized) Sig (Original) baclofen 10 mg oral tablet (16 sources) gamma-Aminobutyri c Acid-ergic Agonist Start: 04-25-2023 End: 05-23-2023 take 10 mg by mouth once daily Baclofen Discontinued 10 MG PO Daily April 25, 2023 2:50pm May 23, 2023 10:36am Start: 03-11-2023 End: 04-25-2023 take 10 mg by mouth twice daily Baclofen Discontinued 10 MG PO Twice daily March 11, 2023 1:00am April 25, 2023 2:51pm [facility]four [facility] Baclofen 10 MG 1 tablet Orally once a day Active Baclofen 10 MG/2 0ML as directed Intrathecal Active diclofenac sodium 50 mg delayed release oral tablet (16 sources) Nonsteroidal Anti-inflammatory Drug Start: 04-25-2023 End: 05-23-2023 take 50 mg by mouth twice daily Diclofenac Sodium Discontinued 50 MG PO Twice daily April 25, 2023 2:48pm May 23, 2023 10:36am Start: 03-11-2023 End: 04-25-2023 take 50 mg by mouth once daily Diclofenac Sodium Disco ntinued 50 MG PO Daily March 11, 2023 1:00am April 25, 2023 2:51pm take 1 tablet by merry th every twelve hours Diclofenac Sodium 50 MG 1 tablet as needed Orally Twice a day Active pregabalin 50 mg oral capsule (14 sources) Start: 03-11-2023 End: 05-23-2023 take 1 capsule by mouth once daily Pregabalin (Lyrica) 50 mg Capsule Discontinued 50 MG PO Daily March 11, 2023 1:00am May 23, 2023 10:36am Problems Active Problems Problem Classification Problem Date [...] Translations: [Unspecified atrial fibrillation] Chronic Diabetes mellitus with complications (1 source) Type 2 diabetes mellitus with other specified complication; Translations: [Diabetes with other specified manifestations, type II or unspecified type, not stated as uncontrolled] 05-23-2023 Chronic Diabetes mellitus without complication (9 sources) Type 2 diabetes mellitus; Translations: [Type 2 diabetes mellitus without complications] Onset: 10-28-2022 Chronic Disorders of lipid metabolism (1 source) Mixed hyperlipidemia; Translations: [Mixed hyperlipidemia] Onset: 03-18-2016 10-28-2022 Chronic Hepatitis (12 sources) Nonalcoholic steatohepatitis; Translations: [Nonalcoholic steatohepatitis (HAMMOND)] Chronic Menstrual disorders (5 sources) Irregular periods; Translations: [Irregular menstruation, unspecified] Onset: 08-25-2019 Chronic Mood disorders (14 sources) Major depressive disorder, single episode, unspecified; Translations: [Major depression in full remission] Onset: 11-14-2021 Resolved: 08-08-2022 Chronic Nonmalignant breast conditions (1 source) Fibrocystic disease of breast; Translations: [Diffuse cystic mastopathy of unspecified breast] Onset: 03-18-2016 10-28-2022 Chronic Other liver diseases (9 sources) Steatosis of liver; Translations: [Fatty (change of) liver, not elsewhere classified] Chronic Other liver diseases (3 sources) Fatty (change of) liver, not elsewhere classified; Translations: [Fatty (change of) liver, not elsewhere classified] Onset: 05-01-2023 Chronic Other liver diseases (2 sources) Cirrhosis of liver; Translations: [Unspecified cirrhosis of liver] 05-23-2023 Chronic Other liver diseases (2 sources) Unspecified cirrhosis of liver; Translations: [Unspecified cirrhosis of liver] Onset: 04-24-2023 Chronic Other liver diseases (4 sources) Abnormal levels of other serum enzymes; Translations: [Other nonspecific abnormal serum enzyme levels] Onset: 03-11-2023 Episodic Other liver diseases (3 sources) Elevated liver enzymes level; Translations: [Abnormal levels [...] Translations: [Obstructive sleep apnea (adult) (pediatric)] Onset: 08-08-2022 Resolved: 08-08-2022 08-08-2022 Chronic Residual codes; unclassified (6 sources) Obstructive [...] 3 08-08-2022 Chronic Other aftercare (1 source) [facility] (current) use of aspirin; Translations: [[facility] CURRENT USE OF ASPIRIN] Onset: 2 Episodic Other aftercare (1 source) Other care home (current) drug therapy; Translations: [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 (Bld) [Mass fract ion]on 05-23-2023 HbA1c (Bld) [Mass fraction] 5.2 % [facility] Coding Summaryon 05-20-2023 Coding Summary HTMLBase 64 CiehdgtxGGs7iDf+PGhlYWQ+PE1 WWPInW07cdKQqoY6uU9WJQPkEJv jmFPZDPEuCEuHaawJrLP6wgDOwI XJu IC8+SU8pIXGnSfwnpPShl9I2nNZ 5Y48vro9mYBjqeKQ1WVZjFfSgxy vfi5yufDk8LUquEshqXxSw WRWwkR58RGZ2hF33Co65dJHhkSK an6yuaZl0BzOtRJWcDTU0xAuuER fiu2VjBOEvK06vbWJzs8F4 USTctYkheRAfBvZddZI3nX2hMAv wccecu9viladpJke1cq74bMNuz9 B6qJP0F3BxajB3OCPaeXPu NrujfCZQeY9kdsssw1tgmjgyHsX dEFIyVWr2TOo2VKOobBalPtDnTE 98KOZ5KMBstwHkO3LmNMBm eDorTaD9s2E4Hq0DK6HBRlhqV8O NTUFSWTwvdGQ+XB50tg26O6AvNk gpFxp3MKFaZLQ6rFN6zR0h SNGtRIalj7F0xCS6W2OrblHmnq9 ls6shJFXrEObrH27mbJLlq2C3QE YvxPQ6TZSkuLkyCqVbsL86 Oyc+EXQctFuch5YfMknyq4ukx7k aqFa6HnhpJGVxzxYlbHclAQE9o8 IkVb0fLXUwmTJ0xQD2pR7s SpSxQfC5IBtlP769UiWpqIKmBnr jF68yR2MwaJW+IPZhUbv8HAMcnA kjWX6iB0JbLUXbmpgyvASp nGdcDS1rSWJobrpoGVSpyL2vEYP bO3u3TiEiTzX2AFhrI1OcRRCgeq uwWn59eP4cNrWcEoB5CCie A6EdfmQ3KZVazLAwGGcpNZE4N01 ty8P9XNRzLHSeLKA7pLU0eY1ouX lnbjogbGVmdDsgdmVydGlj XCbcSKmrH700FWHmbPvhJkFbCIh uZyBEYXRlOiAgMDMvMTIvMjAyND wvdGQ+VZCpEAU5rVlcZSJz cFQnBVmrGu5nlIqwqSibUL0jXES ixjcsHYXrnU8vAOWhkAAjiZktUC 2gTFRrolnhf193FxFrNTO4 KEYnjCFeI9KltV1vDxJfWGXrWDH tD9OjbLViPObvW353WFizVlH6HR UpvwUsF4KsHUSolMuiBcK7 t9H8Og1Ml0DqvekmU3JqwXBtNzN mWuomNFm6N1CsMsomuLD+PC90YW HfUN82XXu6UNI2rOttTKkq DPAlR1TnrJ1oGmGkSYWgUPOhGxv +PHRhYmxlIHdpZHRoPScxMDAlJy UmiHhtNN8oFb6wEMBvKDHn kLmirEXeDoNgz0wsVCGjTHkyVF2 wpUouZ8IzsVK7ANTtt0w6Dp07P8 8yN5YgkNH+KMNyxMI6dGQ7 nY1dUaKqGbJ0MNjsB508GmPriSL eYvkiv9bwf5ztcOe0EtD3ZUEkyz RosEnfSKP0b3MsSy65I51g IHdpZHRoPSIxNSUiIHZhbGlnbj0 rgW6iOh6+EPYidAP9wSI6dO5bQs PsQfE0JLmaT370MnQisNGe Ufkek1qkj2trmXp0YzLgATVrtpJ mcVqnJZV2k9YvIm67Q4EdnYkgr6 ZbTjo5ia08kKBew9K1kME2 K1OkGXOabogqnTIgzVmrWO5lRUB uaqjlUWDuoQ6uXESmV6c2TjKwFh I9XAgkN7RsisV1DNHokRDn UGZseUYIxI5jyemfh8wggvniQlL bVQPuYFy7ZJv8BTAazQrbVqHeIH F3QjN3PHA6jRTfjI6alElx qgggmP2rTvu+ZMB6nEQnhAXIXV0 lOjwvdGQ+XRSzZMA0vXydVHvuGI TwnO3oYDQaT7g8HyGbKlJ4 WNcwQ2AivaI3UIEoeMRnZJNhbXY ScU1buynwm2aykzgqLrSlKKUxPE c2AIv7PDTbgQdxBlNhPOG2 LuW9FXV9cFSmgZ9hoBxwstgbpP9 wOyc+FiwraUnhBAQ5UXu7I0TwVv m3OGVdpRxbMJ3kySDjCNde Wo8ytLzqgRwgEV8wLUUtudmub86 1YsSzs2qvPYCsoDZwIFapQHG3N1 3kc0D9CBRhXSCiMNT6lDF4 vS2afTfuhdgulLBtyGllclGwoGl nKBsoMWkyP202MFTxxXmqWjYcEJ g5Z7MqWnw4WBKylMmhQC1h xDDlAHkeDj4wlUuyjWolAS8mDER vojlgm560QfDwm4vsWTLifCLlHK qfCFL2S81yh6W2ZXJyMKSr BMY1jEH4wT5tlXrtuduijOJioIu mwiHtgBxhNMjqSBpoE775QJGceX bcBaGnoDf0G9YgOga6OBWq oYyjUI5giEWvXDysDw9boOwhxLe nID6oQBKvgoosn684TxStn7yrLV QgeADqMExdTXS6B60cp2C6 CKAbUJKeJCS5wUS7fB2ziLygaws gbGVmdDsgdmVydGljYWwtYWxpZ2 46IHRvcDsnPlBhdGllbnQg TRwhKNg0G9LtKtaafVA+OT29YJN sVW92sIEihKMke0omvGs5JxYmBW HiPEW5zYjwORnlb5YgCJZz E40mcUWxa2H6FNRbxJsynPMoBrO ryVG6lP7bOLhnpgnrb9nkwrjaZe kcy6xzjc30dR31Z46kSTge FHFjBECcSWUzGYSmfHagwv4gcL9 wIi8+OMZvqMT6yPL3qE5bETGrKw S9URymJ656XrScxLHxPqyy u3hcp1kdvJn1XpW7CEObbsCdvRe bYPM6n5AsQg81D83xVHaiDMQxQT EwAPBuIIUeeNassp9yyH2c Ii8+GUZkeKA7yXI8vF6tPxZuHsY 3NRvmE662NjNjgZUwPupfL25aI8 JvdXA+NPSnGlz9ZZRrpMac XY3hbASoZFnzWm1rXZZ1AoYrKzV nHOoeT5ApLEDvsjfnfjrmgZM5FR QjEZVhbP49Ju5moWavEYBf eOAHvL2bwbgwv6kvmxzfYtPzBAD xKFg8EMl1YLNytUojIuRxWCZ0Sq Z0LOV8tDKttS0jqTudqujw aU5zQ2RcMZIfmlczKp67pQ0cWzO aKiN7VCiuUom+TVVMTEVOUywgUk MJVKRIYUWRJYbKEjJ4P2Uw Xib6KQTqnAwfSP8skRAbSNkrSa0 xfRyejKhrGL3zDEFcmmdjPFEclY 0mMINjfGWnvDzkTH3vYDMp cbgqw257XiMbMRA9FSFvtTMoZ9J duQ8zYyFdVCGaDXGsS3HirTKxJA sfR566UVrsBbZ9DLXygdZc Z9OpZBEjrWilOlU8y9P6Wb1uJE6 uCi5zUBu1PO27GV87hRGsb7S4uT R0U2MhYVYeigjbbphzwYF5 WEEbLDCgeK72hFXqSVcrKj6ls9V 9a427UVVjCSLrkB13Vf1gtKawBI RdpCKMsD6kudued8dheuie GgGtNHWfTWi3EFn2LOIhnRjvFkO jUHJ8KmG0NQL2yDSpoZ8jzHofxu cpkQ4cKbe+MzggWWVhcnM8 A0ZdGqh1DVNovWrlVJ0ztEVsVKd gBh7kzPwxkXdvAW8vPFJsxxkwUF XeeP0cNQCixNKtmUlaXX8r MSIefphxd909TrYjRIL9HFKdxXH jA3EswW1eDqPmJCVjSFJhT5BsvF QiWOfcI929UWrdWkO5EUDi ouTfU6OpWYCstHglTxH7z3A7Me9 EUT0SOCB6H0LiXlt2HZNbwVugPU 8uoSMnJEhjLl4mvRrsdCda HZ6qXWHpfllqDGVxcM2kCRVebRD wyFekMD1lXZQkmbsic561GyPbDG U6ISOrmNEvL4IxwE8yTgUf UKRxHQIgV8BjfYOzHClrI240CRw oFdA3TADruvOrQ2JbDMZhjKnbYz K8m4N9Rg8XNUuyL4UfG3Rl eTwvdGQ+IV27vp69M7TkQkeqWql 2GJShXXJ1pMG6qH2qXIHgLBrpy7 T7pXH0R8GdwuHfiy2ys2vt TCEbYMlzT89syWNwr4Y7OFPxwLE 8KVUplOesJePghI44Xoo+PGNvbG cqr4BsQxecp8hny5vfuJh6 LhQjPNNifwZhiKjdYFN1o3GsIk6 5P47qCYtpNYLwTLKiTSRiQIMtkJ sdds5xsI4iIv6+PGNvbCB3 tAO6qC2bRyOwEgC0CGuoS481ZaM miXClJnpoj9bzr6yjqOg5FcBfHK ArweErqUopLSX9f4YoMu19 V9EyqPixc3MxEfg9br89tZCof0M 0zRV2N8OhPZFzbdpgoTEqcFgxYD 9jUBOrowvcIMEhjF3nHMIw Z1s5FtXdVlL5SGdmQ7BkrpY7MBL kcJErMLNoqAPBqR3bugsyu7aefc jlLcTgMNKzAFz7OCj3FRAr nZjkSbEmBEH1WqF9FBO6aEBugT0 ndTwxhylbnL8qZoq+BUa9r1ztfM SnEQ0uhUO7FH12BP14bHSb r4V2qVX1R6HrLRCenkxyreawkQX 1DWEnAJCjvU27Jl4abEylLm5fXU KlZNO1YFHzpABiX7YexZ6q FsUaAZFnYNCcT6NaaJXrYFoyA01 6PTvoWsA7NXOlkzGsE0OzOHHifQ uzOkM7p6B6Zt2GKW04KE89 EN63pAYbg1J6uHO3A3XjWRGgasd weybppGC0YIRhNMWkiK33Jf3zxM dbLl4rDWXrHGE0NCTpuUUr E3ClxA9pOcByCXEkGBSxB0VxxNH hYXeaQ576AHcoClX6OCEkkbXdC0 RxOUPchMstVdD7g1R5Qt4D Ue43GF83TH61xWNyy2M7uYR8G5M vYNAbjqekwgzrzYP5TTWeOIJuaP 26Rx8nrKmoYv6wJDPiQCC9 PHWguLHsO8UlnZ2aTvKqZMStNUB yU1CqqMPuZKxhP037XHweHkR2OY JpgfYsW1BiPELdwCulTbB1 z3Y0Em2SYWripft9P2QuDuzicVO +XJ90NSKyGX90mQRrvJQcd2skhR d7UcClNDNwODF1lVyjQEsl b3J (more content not included)... [facility] Consent Formson 05-19-2023 Consent Forms [id number] [facility] Progress Note - Nurseon 05-08 Progress Note - Nurse Patient called off ice to notify that she noticed light pain relief on the right side of her back. Reports after laying down experienced pain on the left side. Patient states it did not work for me . [Electronically Signed on: 05/19/2023 08:01 EDT] Giuliana Travis RN [Verified on: 05/19/2023 08:01 EDT] Giuliana Travis RN Normal [facility] Inpatient Patient Summaryon 05-16-2023 Inpatient Patient Summary [facility] [address] [place] [address] Patient Discharge Instructions Name: MICHAEL RAMON : 1985 Patient Address: [address] [place] [id number] Primary Care Provider: Name: Shelley Mc DO After you are discharged if you find you have any questions, please, call [phone] ext [phone] to speak to a nurse. Discharge Diagnosis: Prescription Information: If you have been given a prescription for narcotics, seek immediate medical attention if you have any difficulty breathing or any sudden status changes such as confusion and sleepiness. If you or anyone you know is experiencing suicidal thoughts, mental health, alcohol and/or drug addiction problems; contact the [facility] 30/09 Crisis Hotline -Text 4HPUS pm [phone]. If you received any narcotics, sedation, or [...] business decisions or sign any legal documents [facility] would like to thank you for [...] Continue That Have Not Changed Other Medications buPROPion (buPROPion 300 mg/24 hours (XL) oral tablet, extended release) 1 tab(s) Oral (given by mouth) every day. melatonin (melatonin 3 mg oral tablet) 1 tab(s) Oral (given by mouth) once a day (at bedtime) as needed for insomnia. metFORMIN (metFORMIN 500 mg oral tablet) 1 tab(s) Oral (given by mouth) once a day (in the morning). IN THE MORNING WITH MEALS. omeprazole (omeprazole 20 mg oral delayed release capsule) 2 cap(s) Oral (given by mouth) every day. before a meal. tirzepatide (Mounjaro 7.5 mg/0.5 mL subcutaneous solution) 0.5 Milliliter Subcutaneous (under the skin) every week. It is important to always keep an active list of medications available so that you can share with other providers and manage your medications appropriately. As an additional courtesy, we are also providing you with your final active medications list that you can keep with you. buPROPion (buPROPion 300 mg/24 hours (XL) oral tablet, extended release) 1 tab(s) Oral (given by mouth) every day. melatonin (melatonin 3 mg oral tablet) 1 tab(s) Oral (given by mouth) once a day (at bedtime) as needed for insomnia. metFORMIN (metFORMIN 500 mg oral tablet) 1 tab(s) Oral (given by mouth) once a day (in the morning). IN THE MORNING WITH MEALS. omeprazole (omeprazole 20 mg oral delayed release capsule) 2 cap(s) Oral (given by mouth) every day. before a meal. tirzepatide (Mounjaro 7.5 mg/0.5 mL subcutaneous solution) 0.5 Milliliter Subcutaneous (under the skin) every week. Take [...] for Disease Control and Prevention November 2013 [facility] MAGR Intraoperative Recordon 05-16-2023 MAGR Intraoperative Record MAGR Intra-Op Record Summary Primary Physician: SAM HERBERT MD Finalized Date/Time: 05/16/23 12:13:52 Pt. Name: MICHAEL RAMON SHAQ /Sex: 1985 FEMALE Med Rec #: [id number] Physician: SAM HERBERT MD Financial #: [id number] Pt. Type: D Room/Bed: / Admit/Disch: 05/16/23 11:18:32 - Institution: Case Times MAGR Entry 1 Patient In Room Time 05/16/23 12:05:00 Out Room Time 05/16/23 12:14:00 Anesthesia Start Time 05/16/23 12:08:00 Stop Time 05/16/23 12:13:00 Surgery Start Time 05/16/23 12:08:00 Stop Time 05/16/23 12:13:00 Last Modified By: Freida Williamson RN 05/16/23 12:13:42 Case Attendance MAGR Entry 1 Entry 2 Entry 3 Case Attendee Larissa Matos RN, Diane RN Radloff, Leigh-Ann CSFA CST Role Performed Signs And Displays Salesperson Signs And Displays Salesperson Wine Fermenter Time In 05/16/23 12:05:00 05/16/23 12:05:00 05/16/23 12:05:00 Time Out 05/16/23 12:14:00 05/16/23 12:14:00 05/16/23 12:14:00 Procedure Medial Branch Medial Branch Medial Branch Block(Bilateral) Block(Bilateral) Block(Bilateral) Last Modified By: Freida Williamson RN, Diane RN Kokinda, Diane RN 05/16/23 12:13:44 05/16/23 12:13:44 05/16/23 12:13:44 Entry 4 Entry 5 Entry 6 Case Attendee Madelaine Moya RT Robyn Mcintosh RT (R) Ashutosh Yi GROUP SALES COORDINATOR (R) ARRT ARRT Role Performed Industrial Safety Engineer Industrial Safety Engineer Scrub Personnel Time In 05/16/23 12:05:00 05/16/23 12:05:00 05/16/23 12:05:00 Time Out 05/16/23 12:14:00 05/16/23 12:14:00 05/16/23 12:14:00 Procedure Medial Branch Medial Branch Medial Branch Block(Bilateral) Block(Bilateral) Block(Bilateral) Last Modified By: Freida Williamson RN, Diane RN Kokinda, Diane RN 05/16/23 12:13:44 05/16/23 12:13:44 05/16/23 12:13:44 Entry 7 Case Attendee SAM HERBERT MD Role Performed Surgeon - Primary Time In 05/16/23 12:05:00 Time Out 05/16/23 12:14:00 Procedure Medial Branch Block(Bilateral) Last Modified By: Freida Williamson RN 05/16/23 12:13:44 Surgical Procedures MAGR Pre-Care Text: A.20 Verifies operative procedure, surgical site, and laterality Im.150 Develops individualized plan of care Entry 1 Procedure Medial Branch Block Primary Procedure Yes Primary Surgeon SAM HERBERT MD Modifiers Bilateral Surgeon Comment BILATERAL LUMBAR MEDIAL Start 05/16/23 12:08:00 BRANCH BLOCK L3, L4, L5 Stop 05/16/23 12:13:00 Anesthesia Type Local Surgical Service Pain Management Wound Class Clean Technique Details Closure Technique N/A Entire procedure No was performed via laparoscope or robotic assistance Last Modified By: Freida Williamson RN 05/16/23 12:13:47 Post-Care Text: O.730 The patient's care is consistent with the individualized perioperative plan of care General Case Data MAGR Pre-Care Text: A.350.1 Classifies surgical wound Entry 1 Case Information OR MAGR OR 02 Case Level None Wound Class Clean Specialty Pain Management ASA Class N/A Diagnosis Preop Diagnosis LOW BACK PAIN Postop Same As Preop Yes Postop Diagnosis LOW BACK PAIN Blunt or No Is the procedure No penetrating injury considered occured prior to Emergent/Urgent? the start of the procedure: Last Modified By: Freida Williamson RN 05/16/23 12:04:42 Post-Care Text: O.760 Patient receives consistent and comparable care regardless of the setting Time Out MAGR Entry 1 Procedure(s) Medial Branch Block(Bilateral) Time Out Checklist Verifications Team Introductions Yes Confirmed Identity, Yes Completed Procedure, Incision Site, and Consent(s) Presence of Yes Site Verification, Yes Necessary Site Marking, Site Procedural Marking Equipment, Devices, Alternative, and/or and Implants Site Marking Verified Exception in Accordance with Facility Policy Anesthesia Review Antibiotic Received n/a All Anesthesia Case does not involve Within an Concerns Addressed an anesthesia Appropriate Time professional Interval Prior to Surgical Incision Surgeon Review Anticipated Blood Yes Expected Case Yes Loss Risk Addressed Duration Addressed Critical and Yes Non-Routine Steps to be Performed Addressed Nurse Review Equipment No Fire Risk No Checks/Concerns Assessment Addressed Completed and Interventions Performed Diagnostic and Yes Sterilization No Radiological Test Concerns Addressed Results Displayed are Appropriate and Labeled Other Concerns No Addressed Time Out Larissa Matos RN, Time Out Time 05/16/23 12:08:00 Participants Freida Williamson RN, Nestor Hoyt GROUP SALES COORDINATOR, Madelaine Moya RT (R) ARRT, Robyn Mcintosh RT (R) ARRT, Ashutosh Yi GROUP SALES COORDINATOR, SAM HERBERT MD Last Modified By: Freida Williamson RN 05/16/23 12:08:45 Patient Positioning MAGR Pre-Care Text: A.280 Identifies baseline musculoskeletal status Im.40 Positions the patient Im.80 Applies safety devices Entry 1 Procedure Medial Branch Body Position Prone Block(Bilateral) Lef (more content not included)... [facility] 05-16-[facility] MAGR Preoperative Record MAGR Pre-Op Record Summary Primary Physician: SAM HERBERT MD Finalized Date/Time: 05/16/23 12:21:27 Pt. Name: MICHAEL RAMON /Sex: 1985 FEMALE Med Rec #: [id number] Physician: SAM HERBERT MD Financial #: [id number] Pt. Type: D Room/Bed: / Admit/Disch: 05/16/23 11:18:32 - 05/16/23 12:20:00 Institution: Pre-Op Case Times [facility] Pre-Care Text: Patient will be optimally prepared for surgery. Patient is free from s/s of injury. Provide information to patient/family related to plan of care. Verify patient allergies. Confirm identity and verify consent before the operative or invasive procedure. Entry 1 Patient Arrival Time 05/16/23 11:24:00 Preop Departure 05/16/23 12:02:00 Last Modified By: Mya Kenny RN 05/16/23 12:21:20 Post-Care Text: Patient is prepared mentally and physically and is ready for surgery. The patient remains free from s/s of injury. Patient/family express understanding of plan of care and participate in decisions affecting his or her perioperrative plan of care. Allergies documented appropriately. Patient identifiers and consent correct. General Comments: Pt to PSW. Pt is diabetic and has sleep apnea. Pt denies any recnet cold/flu/covid sytmpoms, SOB, CP, or pacemaker/defibrillator. Finalized By: Mya Kenny RN Document Signatures Signed By: Mya Kenny RN 05/16/23 12:21 [facility] POCT Glucose Levelon 024 Glucose [Mass/Vol] 78 mg/dL Normal 74-118 [facility] Comment on above: Performed By: #### 4 [id number] ####[facility] (DEFAULT)[address] [place] [address] Patient Handouton 05-16-2023 Patient Handout Normal [facility] Coding Summaryon 05-12-2023 Coding Summary HTMLBase 64 YyhpryjyQUi4pGq+PGhlYWQ+PE1 NQWLzQ06anMDauQ5tU9KIITjDBh dgLLTPXIgKUrCopbHaRJ8vlWHwR XJu IC8+DM4qPWXzJiuaaJHwd8N7aWB 3A37sae7lWTidbSX4VPLwWdCful xcx7yaxVr5YHknStzjImBd KWXyoB57EVA6rZ57Bx03fTOmtXR ob5deiXc3DzQtENKzTSU0tDitUH zjp6NeOAXyO46rqZYxu9D1 LHUbeXcrkFNoGcFkqDU1uA8jPPu msljhd2okzyqtVwj5fl05tSUkh7 J9mPP5O2LumcW8MFAnkTSm PyaafGOXgO4utgdpu7uxshkzVwW vFIXcWLx5NKj7HKZneCyoQfBuVZ 41UZN2XPTfokHnY4JqYZXp zGzqFtR5l2N9Wp9ET5FXPqthI2R NTUFSWTwvdGQ+EC40us36R4GqGi gxLpl6BVXoUEQ3vZW9gS7q JZCiDMyma6V5aML4D7IsflRenn5 ro4qjXYZjDFqjC49reICvo2W2LP HruPS7EQTcfSmhOtQkaB11 Oyc+EXNblIqgg5OuHslfu0pqf3k wnVd9QuizTXMocjAdxNkdIIF5k1 MsOb3qQLJkdZM4yBF9qV7g YtEfUiY0TUgpS273QdIhuDIcXin gO24lJ6WauDD+KGLeWrv6QODywK xkKG6hA6WwBXSfotyyoDHm iNhfHY3qQURqcfvbKITxzD7jEIN zN1o8HzCaDmH4TEvgP3JrEZBbkb ohWm77lA0eJzOvGqM4DYnf E9XmopW6UIBicAPdNEtwUGQ7U22 ip5S4ZKOhGUVxIKP4eBC1sX3orV lnbjogbGVmdDsgdmVydGlj ZBasRQzrY801MROfvFucLbFlWVx uZyBEYXRlOiAgMDMvMDQvMjAyND wvdGQ+GCJnLRF6nGxbJPWe oHYlSDsrJl0mdVmwaGlzTE0vPTT wxkqaZIRppR3xRFDztXHxkMhaRK 4rBCLlkasuk086HmHfFRC0 WOGckOMcW3ZkpD3nLzQdVLLzFNQ jW7JiuGNgUUmiE360FSbiOjB5MB InvvLyQ2LnEFXuhWhtUnJ7 b9K1St7Ju3LzpfutO4SztIZmBbS wBbpmBAi8K5RtRkeitEW+PC90YW EnMB30RKe7LSA3fEhzMCet JJVfN0YxbO3lRsPgOEUpDMHbIef +PHRhYmxlIHdpZHRoPScxMDAlJy ZlgTlyAZ7xJs0eBGCqFWFs dSivpVTaGpIvc8bdYCWgYAszSB4 ubPuwD1HeeEL3UIYog9j9Hb13K8 9jR4DlyRD+MCPzwQX8qDG1 qL0sDtTnEvE1FPrzS289TpNfmWI mYzerf6syy8ctaLk9OyG0OVXixa XqxUpvOSY8w7XoTz78B75f IHdpZHRoPSIxNSUiIHZhbGlnbj0 vfZ0yKn8+EPKxxBY4wTR3oX0wUq GkAqJ0HDieB070WgWidTRp Auptq5tbo2vthJe9XpNzEVKundD osNygUSO0n5NwUs45E9UswRqpj9 KqRjp0gv99hHTcv4M2sCP2 D0CsKEYlobsdyNZuoLrcZL4jDRK slmdoQZPieW0kMXOpQ6c8UwSrAv B0CRwjR5VtjvS6XHLovZSn QUWssHYSdL3scxxfb3ugbtxvUeZ lVAJwLUk7MFo0OVVjuHzfRbKcKC V8SfT5WUG5wDUkwB6peNft ysmhnP3kGhu+LMH3aRXqpLQFPL9 lOjwvdGQ+BGLiDGK0oQgsVLbcQQ RguS4tINUjQ4t1SoZkMjH3 HIuuK5DoqdF7ETKkrHBeTJDnfFZ TfU6ufcvjs9bezpkoCuKiMLUaMK l6NNi0CUKusQsjSpGjGII3 ZmB7ZXY9xTOhrL5sqBrueaupaF4 wOyc+CkcmsLpkMCX4ZVv1J3SyOf c1FHBkzCglYH5ckRYhDXsb Ru4fjCmkcWgwPB4eTXUiubwqh84 3HwFbu0xmJSOrzHAjQTdpOOI2P5 0kb4N3FLMvSYTePEJ5xWN0 vM1mdThnfopolZVsyHzzrrKrjJm uHVpqIHteQ770KLEaxIekBlNiNN e2B0XpFrt6TVNopYpmNO9y nWJuAIeySw5kgYfwkGgyEE6aERN heowqg133HvRtk4okJDJcgWKuLZ elVKV7F53ff4H3LBMwJIJw CJV5qFB4zN9wiTbagekbzKKwkAn aswLsqDlaDLznQTymG599GOWhqP ruBcTtsAj2W2LhVxs4CBLt pKzoHL3ykSQjQLsuQq4pbCbzwWs hIR9yQONvcxgsv977LxGib6azUQ QpkMWbOYhxXEN0Q75nu6I2 KKLiIJKnXWC0qSW8yO6eaCpnkpo gbGVmdDsgdmVydGljYWwtYWxpZ2 46IHRvcDsnPlBhdGllbnQg GTbqRZy2S4NbHvidgNX+ID00MHK yXR71yHCzmFDmx1wogFx0BdNfMD QqIJL2hMkhMSgpx0LmZMQn D38gaKCgm3C4AKMyiFsqmZXkToU qqHD6vF8gPJhyxwrff8wutzraAj udn7wbdf76dG47V54dQJfy QUYhIBSvOVHvYAVxaDcqds2nlU3 wIi8+OKQcyZB6eZY6aU3pSOSkPu K2DMumL954PwGifJRtMnvq z8una5xpiBo1LrW5AMJeouOxfUt dLWK7i1JdNd49Y31kHCqeUSAbAN CxVDWwFTWuvQeokp5csB0r Ii8+GORdcED8lKN8uE4kXsMhFjJ 3RJvaJ507SrKuqUFvVyvgF86eS0 JvdXA+RULiAfr2DTSkqFsx ZD0lrWUaOAleHk1qJMQ9XbYsCfT oGNfcS4XrYWDpxlimgqsomGE4SG AdZLCjlX35Ga9tzPvsDIQx eUODlV5xnwxge1rnhakgXaIzUOK wLTu9AHl7VPPtzZfxAfEdFTD1Qq A9LGH2cOOjvL7anWwzxrke nG0dF5VbQVQzjxrsGf69jT0jMhC bNwA0LKxvPpq+TVVMTEVOUywgUk VJDWNFHRJMPSdQWbJ6A7Ek Rfe8JTVihPobYC6dvTPrJWfuLt9 bqMywqTotUY2eLOMrmkvoQZVbyV 2xDSStcZKtwKqjST9mPOZe bfnqr421DrKzMQO0OWAiaBOlN7Q kuJ1eVoIuOQNlLAJmU1BapILwGJ gmC042AUhmLqB0ICJnzzYn R3XiQJFjcWyzBhT8h2N4Wc2sAQ4 jTk5wWCv6UI92KL00pOPhy4N3aL D5Y5HtRQUxtlbjqtmixGH5 UKMoFWQjhA58dKClMFtxIe1wh8W 0t297KRYrRHWreB28Bn2qyCmgOO CtrPKHtN8qawxka0kwznts UcApMDHtUAl8ETu7HKNibViyCcT bJOH0MjG3MOC5nQVoyD3bzDuosf kyoF1eRum+MzggWWVhcnM8 Q7EdLcg6QTKnaZvvPF0vqSUbFMz bMw8cjFpthMybYW6cPPYaccagRE KeaB7hQYZssMCcdJymQJ8c GXRoxsjwe978XiTiCFP6YYRnnOJ gW5JprK8uAnRgCHTvAVQiS6YqiF TmKFsyG840GGorDaZ0GVNh vpFpO2WjZYPecVkrZvJ7w4K4As5 SZK0JBSU8G7WmRqu1HTXyoNmlMT 7siVJzKInpQi0sdKkbvYhs EN9kOAQdmfyhFNEstI3kWPUgeHV iuQnmXX3lUDPnubxjz875SoYrQX U7ULYgdKZbW6NgxJ3qJxNa USMmKWKlL2HbiQUeVOjcM717FFe nXgO3PIDedoLzB9VzYQEeyFwnZy Z5u5U0Ra6YAZfwbNU+PC90 fk42U4ZgZekbYug5RPUqOYE7jOC 9tA0yCNFlNVrnl3R9yBL3D9Pgqq Wvll3jo0auFXPmMXixR21k wBGgz3P3RLBfxFV3LQYewKskDyK zvW96Maf+WSLbgJyic3YkOkkdq4 vzp3tzpUx7YoFaXZAtnnHk hHlvIBH3d9XlIe02B99bZSujENS nZXOxOMDpCDUtiCyubj1eqE6uRr 8+ODWezZA6kGC5qF1tUvJv CtN6LStzR034TdNswQStUweku0r pj6hskUm1EuKeQUYuspXlyUclZS X4b1SdFs67X4PfrNmgf4Oz Ucd2bm27uNYsi2Q7wIH9G9QwFCP iiufvlHKjqYeqLO2hXZRchcojAI OnzI7oVZEeB4y0JpXkVmN3 WUdiS2KgxrF0GQXlmBFaXDFfjZW EyU4djwrxt0lkfmoxYjAcRVMzQR w6JEh6MOGmpLwhXeBvAJG0 NsW7WYX1mJWqiA1huTraphkhmY5 wOyc+YUe9t1mhzMViOP3pcXQ4FQ 07ZR78gVWfu9C2nFE0V3Vh OVHqqqgnnaicwKI2UYQeUXFpyO2 0Lg5gdZtiYn7mYKWgSUF7MLQrgJ GnP8WkcF8yHtCmXIMzPPZr N3WneSQaYKihA005JQrfAoV5SEQ acjIeA4ByCEVqnUesHpW9l8I1Bn 0JVT92ML25EP16yJLvb9I5 wUV7U4NuJPWlvdlfqccpoES3CFY jYNKcxB90Il0wxBwwUr2qRCDnLP S8LZZvoGEaU5RtsC5iZyPt DGRwBWNoT3RcsSBcQOlvO776DEb rKtS5QCEvwhQbQ6EyLUAnvLgwXz V7e3O2Jv7ECw31HC48UD19 sSMgq0S9iZC0D6LoKSRurxckgne wlQE6PNOuISAeiR28Rb0shFflIu 7cUWXsDNH3ONIyxCQoL4Vr aI2kVwNzIBJtEHJfJ5SljBCaBSw vH196NEgbWlR6TBWpyxBcO4TcPI YpnUexWyF0i0S5Fn2LREcy iii7F5MtGwjwnXP+UW36AFRdBK8 9pOTmjRMgk9rfoHi4BbOeQJMxWU X5pZfuYScbe4PcWUGcE11r bGF (more content not included)... [facility] Progress Note - Provideron 0 05-09-2023 Progress Note - Provider [id number] Normal [facility] Alanine aminotransferase [En zymatic activity/volume] in Serum or PlasmaOrdered By: Imad Asaad on 05-01-2023 ALT [Catalytic activity/Vol] 19 U/L 7-52 [facility] Albumin [Mass/volume] in Ser um or Plasma by Bromocresol green (BCG) dye binding methoOrdered By: Imad Asaad on 05-01-2023 Albumin BCG dye [Mass/Vol] 3.8 g/dL 3.5-5.7 [facility] Alkaline phosphatase [Enzyma tic activity/volume] in Serum or PlasmaOrdered By: Imad Asaad on 05-01-2023 ALP [Catalytic activity/Vol] 92 U/L 34-104 [facility] Aspartate aminotransferase [ Enzymatic activity/volume] in Serum or PlasmaOrdered By: Imad Asaad on 05-01-2023 AST [Catalytic activity/Vol] 15 U/L 13-39 [facility] Basophils Auto (Bld) [#/Vol] Ordered By: Imad Asaad on 05-01-2023 Basophils (Bld) [#/Vol] 0.0 10*3/uL 0.0-0.2 [facility] Basophils/100 WBC Auto (Bld) Ordered By: Imad Asaad on 05-01-2023 Basophils/100 WBC (Bld) 0.2 % . [facility] Bilirubin.total [Mass/volume ] in Serum or PlasmaOrdered By: Imad Asaad on 05-01-2023 Bilirubin [Mass/Vol] 0.4 mg/dL 0.3-1.0 [facility] Calcium [Mass/volume] in Ser um or PlasmaOrdered By: Imad Asaad on 05-01-2023 Calcium [Mass/Vol] 8.8 mg/dL 8.6-10.3 [facility] Carbon dioxide, total [Moles /volume] in Serum or PlasmaOrdered By: Imad Asaad on 05-01-2023 CO2 [Moles/Vol] 28.7 mmol/L 21.0-31.0 [facility] Chloride [Moles/volume] in S jayden or PlasmaOrdered By: Imad Asaad on 05-01-2023 Chloride [Moles/Vol] 104 mmol/L 98-107 [facility] Complete Blood Count Auto Di ffon 05-01-2023 Basophils (Bld) [#/Vol] 0.0 10*3/uL Normal 0.0-0.2 [facility] Comment on above: Order Comment: Reaso n for Exam Hepatic steatosis Result Comment: PERF ORMED BY: [place] [address] PATHOLOGIST COMMUNITY SERVICE DIRECTOR SINCERE GREENWOOD M.D. Performed By: #### C MP, CBC, PT #### [facility] [address] Basophils/100 WBC (Bld) 0.2 % Normal . [facility] Comment on above: Order Comment: Reaso n for Exam Hepatic steatosis Performed By: #### C MP, CBC, PT #### [facility] [address] [place] [address] [place] Eosinophils (Bld) [#/Vol] 0.0 10*3/uL Normal 0.0-0.45 [facility] Comment on above: Order Comment: Reaso n for Exam Hepatic steatosis Performed By: #### C MP, CBC, PT #### [facility] [address] [place] [address] Eosinophils/100 WBC (Bld) 0.3 % Normal . [facility] Comment on above: Order Comment: Reaso n for Exam Hepatic steatosis Performed By: #### C MP, CBC, PT #### [facility] [address] [place] [address] Erythrocyte distribution width (RBC) [Ratio] 14.7 % Normal 11.9-15.3 [facility] Comment on above: Order Comment: Reaso n for Exam Hepatic steatosis Performed By: #### C MP, CBC, PT #### [facility] [address] [place] [address] Hematocrit (Bld) [Volume fraction] 36.9 % Normal 34.0-46.4 [facility] Comment on above: Order Comment: Reaso n for Exam Hepatic steatosis Performed By: #### C MP, CBC, PT #### [facility] [address] Hemoglobin (Bld) [Mass/Vol] 12.2 g/dL Normal 11.8-15.4 [facility] Comment on above: Order Comment: Reaso n for Exam Hepatic steatosis Performed By: #### C MP, CBC, PT #### [facility] [address] [place] [address] Lymphocytes (Bld) [#/Vol] 1.7 10*3/uL Normal 1.00-4.8 [facility] Comment on above: Order Comment: Reaso n for Exam Hepatic steatosis Performed By: #### C MP, CBC, PT #### [address] Lymphocytes/100 WBC (Bld) 19.3 % Normal . [facility] Comment on above: Order Comment: Reaso n for Exam Hepatic steatosis Performed By: #### C MP, CBC, PT #### [facility] [address] [place] [address] MCH (RBC) [Entitic mass] 27.2 pg Normal 24.7-34.3 [facility] Comment on above: Order Comment: Reaso n for Exam Hepatic steatosis Performed By: #### C MP, CBC, PT #### [address] MCV (RBC) [Entitic vol] 82.5 fL Normal 80-100 [facility] Comment on above: Order Comment: Reaso n for Exam Hepatic steatosis Performed By: #### C MP, CBC, PT #### [address] Mean Corpuscular HGB Conc 33.0 g/dL Normal 32.0-35.0 [facility] Comment on above: Order Comment: Reaso n for Exam Hepatic steatosis Performed By: #### C MP, CBC, PT #### [address] Monocytes (Bld) [#/Vol] 0.4 10*3/uL Normal 0.0-0.8 [facility] Comment on above: Order Comment: Reaso n for Exam Hepatic steatosis Performed By: #### C MP, CBC, PT #### [facility] [address] [place] [address] [place] Monocytes/100 WBC (Bld) 4.4 % Normal . [facility] Comment on above: Order Comment: Reaso n for Exam Hepatic steatosis Performed By: #### C MP, CBC, PT #### [facility] [address] [place] [address] [place] Neutrophils (Bld) [#/Vol] 6.8 10*3/uL Normal 1.8-7.7 [facility] Comment on above: Order Comment: Reaso n for Exam Hepatic steatosis Performed By: #### C MP, CBC, PT #### [facility] [address] Neutrophils/100 WBC (Bld) 75.8 % Normal . [facility] Comment on above: Order Comment: Reaso n for Exam Hepatic steatosis Performed By: #### C MP, CBC, PT #### [facility] [address] [place] [address] [place] NRBC% 0.1 /100{WBC} Normal 0-0.5 [facility] Comment on above: Order Comment: Reaso n for Exam Hepatic steatosis Performed By: #### C MP, CBC, PT #### [facility] [address] [place] [address] [place] Platelet mean volume (Bld) [Entitic vol] 8.9 fL Normal 6.3-10.7 [facility] Comment on above: Order Comment: Reaso n for Exam Hepatic steatosis Performed By: #### C MP, CBC, PT #### [facility] [address] [place] [address] [place] Platelets (Bld) [#/Vol] 260 10*3/uL Normal 150-450 [facility] Comment on above: Order Comment: Reaso n for Exam Hepatic steatosis Performed By: #### C MP, CBC, PT #### [facility] [address] [place] [address] [place] RBC (Bld) [#/Vol] 4.47 10*6/uL Normal 3.60-5.00 [facility] Comment on above: Order Comment: Reaso n for Exam Hepatic steatosis Performed By: #### C MP, CBC, PT #### [facility] [address] [place] [address] WBC (Bld) [#/Vol] 9.0 10*3/uL Normal 3.8-11.6 [facility] Comment on above: Order Comment: Reaso n for Exam Hepatic steatosis Performed By: #### C MP, CBC, PT #### [facility] [address] Comprehensive Metabolic Pane vladimir 05-01-2023 Albumin [Mass/Vol] 3.8 g/dL Normal 3.5-5.7 [facility] Comment on above: Order Comment: Reaso n for Exam Hepatic steatosis Performed By: #### C MP, CBC, PT #### [facility] [address] [place] [address] Albumin/Globulin [Mass ratio] 1.2 {ratio} Normal [facility] Comment on above: Order Comment: Reaso n for Exam Hepatic steatosis Performed By: #### C MP, CBC, PT #### [facility] [address] [place] [address] ALP [Catalytic activity/Vol] 92 U/L Normal 34-104 [facility] Comment on above: Order Comment: Reaso n for Exam Hepatic steatosis Result Comment: PERF ORMED BY: [place] [address] PATHOLOGIST COMMUNITY SERVICE DIRECTOR SINCERE GREENWOOD M.D. Performed By: #### C MP, CBC, PT #### [facility] [address] [place] [address] ALT [Catalytic activity/Vol] 19 U/L Normal 7-52 [facility] Comment on above: Order Comment: Reaso n for Exam Hepatic steatosis Performed By: #### C MP, CBC, PT #### [facility] [address] [place] [address] Anion gap [Moles/Vol] 10.6 mmol/L Normal 6.0-15.0 [facility] Comment on above: Order Comment: Reaso n for Exam Hepatic steatosis Performed By: #### C MP, CBC, PT #### [facility] [address] AST [Catalytic activity/Vol] 15 U/L Normal 13-39 [facility] Comment on above: Order Comment: Reaso n for Exam Hepatic steatosis Performed By: #### C MP, CBC, PT #### [facility] [address] Bilirubin [Mass/Vol] 0.4 mg/dL Normal 0.3-1.0 [facility] Comment on above: Order Comment: Reaso n for Exam Hepatic steatosis Performed By: #### C MP, CBC, PT #### [facility] [address] Calcium [Mass/Vol] 8.8 mg/dL Normal 8.6-10.3 [facility] Comment on above: Order Comment: Reaso n for Exam Hepatic steatosis Performed By: #### C MP, CBC, PT #### [facility] [address] [place] [address] [place] Chloride [Moles/Vol] 104 mmol/L Normal 98-107 [facility] Comment on above: Order Comment: Reaso n for Exam Hepatic steatosis Performed By: #### C MP, CBC, PT #### [facility] [address] [place] [address] [place] CO2 [Moles/Vol] 28.7 mmol/L Normal 21.0-31.0 [facility] Comment on above: Order Comment: Reaso n for Exam Hepatic steatosis Performed By: #### C MP, CBC, PT #### [facility] [address] [place] [address] [place] Creatinine [Mass/Vol] 0.72 mg/dL Normal 0.60-1.20 [facility] Comment on above: Order Comment: Reaso n for Exam Hepatic steatosis Performed By: #### C MP, CBC, PT #### [facility] [address] [place] [address] [place] GFR/1.73 sq M.predicted MDRD (S/P/Bld) [Vol rate/Area] mL/min/{1.73_m2} Normal [facility] Comment on above: Order Comment: Reaso n for Exam Hepatic steatosis Performed By: #### C MP, CBC, PT #### [facility] [address] Globulin (S) [Mass/Vol] 3.3 g/dL Normal [facility] Comment on above: Order Comment: Reaso n for Exam Hepatic steatosis Performed By: #### C MP, CBC, PT #### [facility] [address] Glucose [Mass/Vol] 81 mg/dL Normal 70-100 [facility] Comment on above: Order Comment: Reaso n for Exam Hepatic steatosis Result Comment: [facility] Glucose Reference Range is dependent on time and content of last meal. Glucose of more than 200 mg/dL in a nonstressed, ambulatory subject supports the diagnosis of Diabetes Mellitus. ADA recommended reference range Performed By: #### C MP, CBC, PT #### [facility] [address] [place] [address] [place] Potassium [Moles/Vol] 4.3 mmol/L Normal 3.5-5.1 [facility] Comment on above: Order Comment: Reaso n for Exam Hepatic steatosis Performed By: #### C MP, CBC, PT #### [facility] [address] [place] [id number] [place] Protein [Mass/Vol] 7.1 g/dL Normal 6.4-8.9 [facility] Comment on above: Order Comment: Reaso n for Exam Hepatic steatosis Performed By: #### C MP, CBC, PT #### [facility] [address] [place] [id number] [place] Sodium [Moles/Vol] 139 mmol/L Normal 136-145 [facility] Comment on above: Order Comment: Reaso n for Exam Hepatic steatosis Performed By: #### C MP, CBC, PT #### [facility] [address] [id number] [place] Urea nitrogen [Mass/Vol] 17 mg/dL Normal 7-25 [facility] Comment on above: Order Comment: Reaso n for Exam Hepatic steatosis Performed By: #### C MP, CBC, PT #### [facility] [address] Creatinine [Mass/volume] in Serum or PlasmaOrdered By: Imad Asaad on 05-01-2023 Creatinine [Mass/Vol] 0.72 mg/dL 0.60-1.20 [facility] Eosinophils Auto (Bld) [#/Vo l]Ordered By: Imad Asaad on 05-01-2023 Eosinophils (Bld) [#/Vol] 0.0 10*3/uL 0.0-0.45 [facility] Eosinophils/100 WBC Auto (Bl d)Ordered By: Imad Asaad on 05-01-2023 Eosinophils/100 WBC (Bld) 0.3 % . [facility] Erythrocyte distribution wid th Auto (RBC) [Ratio]Ordered By: Imad Asaad on 05-01-2023 Erythrocyte distribution width (RBC) [Ratio] 14.7 % 11.9-15.3 [facility] Globulin Calc (S) [Mass/Vol] Ordered By: Imad Asaad on 05-01-2023 Globulin (S) [Mass/Vol] 3.3 g/dL [facility] Glucose [Mass/volume] in Ser um or PlasmaOrdered By: Imad Asaad on 05-01-2023 Glucose [Mass/Vol] 81 mg/dL 70-100 [facility] Comment on above: ADA recommended refe rence rangeRandom Glucose Reference Range is dependent on time and content of last meal. Glucose of more than 200 mg/dL in a nonstressed, ambulatory subject supports the diagnosis of Diabetes Mellitus. Hematocrit Auto (Bld) [Volum e fraction]Ordered By: Imad Asaad on 05-01-2023 Hematocrit (Bld) [Volume fraction] 36.9 % 34.0-46.4 [facility] Hemoglobin [Mass/volume] in BloodOrdered By: Imad Asaad on 05-01-2023 Hemoglobin (Bld) [Mass/Vol] 12.2 g/dL 11.8-15.4 [facility] INR in Platelet poor plasma by Coagulation assayOrdered By: Imad Asaad on 05-01-2023 INR Coag (PPP) [Relative time] 1.0 {INR} [facility] Comment on above: INR Therapeutic Rang [...] with mechanical heart valves: 3 - 4.5 Leukocytes [#/volume] correc terri for nucleated erythrocytes in Blood by Automated counOrdered By: Imad Asaad on 05-01-2023 WBC corrected for nucl RBC Auto (Bld) [#/Vol] 9.0 10*3/uL 3.8-11.6 [facility] Lymphocytes Auto (Bld) [#/Vo l]Ordered By: Imad Asaad on 05-01-2023 Lymphocytes (Bld) [#/Vol] 1.7 10*3/uL 1.00-4.8 [facility] Lymphocytes/100 WBC Auto (Bl d)Ordered By: Imad Asaad on 05-01-2023 Lymphocytes/100 WBC (Bld) 19.3 % . [facility] MCH Auto (RBC) [Entitic mass ]Ordered By: Imad Asaad on 05-01-2023 MCH (RBC) [Entitic mass] 27.2 pg 24.7-34.3 [facility] MCHC Auto (RBC) [Mass/Vol]Or dered By: Imad Asaad on 05-01-2023 MCHC (RBC) [Mass/Vol] 33.0 g/dL 32.0-35.0 [facility] MCV Auto (RBC) [Entitic vol] Ordered By: Imad Asaad on 05-01-2023 MCV (RBC) [Entitic vol] 82.5 fL 80-100 [facility] Monocytes Auto (Bld) [#/Vol] Ordered By: Imad Asaad on 05-01-2023 Monocytes (Bld) [#/Vol] 0.4 10*3/uL 0.0-0.8 [facility] Monocytes/100 WBC Auto (Bld) Ordered By: Imad Asaad on 05-01-2023 Monocytes/100 WBC (Bld) 4.4 % . [facility] Neutrophils Auto (Bld) [#/Vo l]Ordered By: Imad Asaad on 05-01-2023 Neutrophils (Bld) [#/Vol] 6.8 10*3/uL 1.8-7.7 [facility] Neutrophils/100 WBC Auto (Bl d)Ordered By: Imad Asaad on 05-01-2023 Neutrophils/100 WBC (Bld) 75.8 % . [facility] No Panel InformationOrdered By: Imad Asaad on 05-01-2023 Estimated GFR (CKD-EPI) > 60.0 mL/Min [facility] Creatinine Clearance (Chem N/A [facility] Nucleated erythrocytes [Pres ence] in Blood by Automated countOrdered By: Imad Asaad on 05-01-2023 Nucleated RBC Auto Ql (Bld) 0.1 /100{WBC} 0-0.5 [facility] Platelet mean volume Auto (B ld) [Entitic vol]Ordered By: Imad Asaad on 05-01-2023 Platelet mean volume (Bld) [Entitic vol] 8.9 fL 6.3-10.7 [facility] Platelets Auto (Bld) [#/Vol] Ordered By: Imad Asaad on 05-01-2023 Platelets (Bld) [#/Vol] 260 10*3/uL 150-450 [facility] Potassium [Moles/volume] in Serum or PlasmaOrdered By: Imad Asaad on 05-01-2023 Potassium [Moles/Vol] 4.3 mmol/L 3.5-5.1 [facility] Protein [Mass/volume] in Ser um or PlasmaOrdered By: Imad Asaad on 05-01-2023 Protein [Mass/Vol] 7.1 g/dL 6.4-8.9 [facility] Prothrombin Time INRon 05-01 INR Coag (PPP) [Relative time] 1.0 {INR} Normal [facility] Comment on above: Order Comment: Reaso n for Exam Hepatic steatosis Result Comment: INR Therapeutic Range A) Pre- [...] with mechanical heart valves: 3 - 4.5 PERFORMED BY: [place] [address] PATHOLOGIST COMMUNITY SERVICE DIRECTOR SINCERE GREENWOOD M.D. Performed By: #### C MP, CBC, PT #### [facility] [address] [id number] [facility] PT Coag (PPP) [Time] 12.0 s Normal 9.0-12.9 [facility] Comment on above: Order Comment: Reaso n for Exam Hepatic steatosis Result Comment: A he matocrit value greater than 55% may lead to inaccurate results in coagulation testing. Patients having hematocrit values >55% require a special collection tube for coagulation studies. Please contact the laboratory at [phone] for redraw instructions. Performed By: #### C MP, CBC, PT #### [facility] [address] [place], [place] [id number] [facility] Prothrombin time (PT)Ordered By: Job Martinez on 05-01-2023 PT Coag (PPP) [Time] 12.0 s 9.0-12.9 [facility] Comment on above: A hematocrit value g reater than 55% may lead to inaccurate results in coagulation testing. Patients having hematocrit values >55% require a special collection tube for coagulation studies. Please contact the laboratory at [phone] for redraw instructions. RBC Auto (Bld) [#/Vol]Ordere d By: Job Martinez on 05-01-2023 RBC (Bld) [#/Vol] 4.47 10*6/uL 3.60-5.00 [facility] Serum or plasma albumin/glob ulin mass ratioOrdered By: Job Martinez on 05-01-2023 Albumin/Globulin [Mass ratio] 1.2 {ratio} [facility] Serum or plasma anion gap de terminationOrdered By: Job Martinez on 05-01-2023 Anion gap [Moles/Vol] 10.6 mmol/L 6.0-15.0 [facility] Sodium [Moles/volume] in Ser um or PlasmaOrdered By: Job Martinez on 05-01-2023 Sodium [Moles/Vol] 139 mmol/L 136-145 [facility] US liveron 05-01-2023 liver [facility] [place] [address] Ultrasound Report Signed Patient: Michael Ramon MR#: [id number] 2328 : 1985 Acct:[id number] Age/Sex: 38 / F ADM Date: 05/01/23 Loc: [facility] Room: Type: [facility] Attending Dr: Job Martinez MD Ordering Provider: Job Martinez MD Date of Service: 05/01/23 US/US liver: Hepatic steatosis Copies to: Job Martinez MD LIMITED ABDOMINAL ULTRASOUND - the liver CLINICAL HISTORY: Follow-up fatty liver. Prior cholecystectomy. COMPARISON: Biopsy 03/11/2023 The gallbladder is surgically absent. No intrahepatic biliary dilatation is evident. The common duct is prominent measuring approximately 9 mm. There are no intraluminal filling defects within the segment that is imaged. This may relate to previous cholecystectomy.. The liver remains echogenic and difficult to penetrate suggesting fatty infiltration. No focal intrahepatic masses are seen. There is appropriate hepatopetal flow within the main portal vein. The pancreas is mostly obscured by bowel gas. Cursory evaluation of the right kidney reveals no hydronephrosis or fluid within Foreman's pouch. US/US liver IMPRESSION: CONTINUED ECHOGENIC LIVER SUGGESTING FATTY INFILTRATION. PROMINENT COMMON DUCT, POTENTIALLY RELATED TO PREVIOUS CHOLECYSTECTOMY Impression dictated by: Magaly Mcdonough M.D.05/01/2023 1:11 PM Dictation Location: [place] [address] Tech: Anila Franco Transcribed By: SAEID 05/01/23 1311 Dictated By: Magaly Mcdonough MD 05/01/23 1306 Signed By: 05/01/23 1311 Normal [facility] Urea nitrogen [Mass/volume] in Serum or PlasmaOrdered By: Job Martinez on 05-01-2023 Urea nitrogen [Mass/Vol] 17 mg/dL 7 [facility] WBC Auto (Bld) [#/Vol]Ordere d By: Imad Asaad on 05-01-2023 WBC (Bld) [#/Vol] 9.0 10*3/uL 3.8-11.6 [facility] Coding Summaryon 04-29-2023 Coding Summary HTMLBase 64 IuzhqszaTYz4qMr+PGhlYWQ+PE1 IMBAmU46alOQmxL8zV4TMGWwOBf nwHUXWXLsLSdQtleYdPF4giVZhH XJu IC8+IK1pYZPlRptfxBUns6U4aBW 1V89rvn8uAOvftSW1RHFnFdDbek ecb1vzjAs3KZvyLkluGvJd EIZzmW22BFY9gX81Nf15dEClhDE al7slxPx9ChLqOQSyPTV9iYofZN qpi7VdKWLhT01ioJOha2R1 HCOdtRycrQRfQlSokBW8oK2sHQk kcdiit0adhxelEyg4zk99gGVfn5 W3sBF1X7PjyhF8KEGgmZHd PsgejHGMpA2gumjnn9gsicypNvG uBSZsSPi2LEn7RRRteEmaDaTjZA 51BWS6UEXrclLbP1ZrWCFu fZnpNzC9d2R4Yd0JD9OTHsjjX0G NTUFSWTwvdGQ+GY15jx94P5EnAc vnWhc8SUZyBDS0pLI9fG9q BHZcZRjmk8W1jCE0D3MqfrYhru0 hx6yvAHWfYZnzA29ihJZyc1M7HD SzaYG3JPHbpKupCrHqbN89 Oyc+APOrpQnbu1BqGiazx8xtm4a hsBj7RaisQVJodtMfhLirQAF5y0 TvIf3hOENpiFA2vVX4oM5x VeXwUqX1RCjpC055RuMxhBQvPhw sP72zY6CocRJ+KFVoRbc1DZGnqO hfVV0hZ5ZuJQWcgnhloOHg aPuoQX8yUTKweciiITKqiI8lCOK wA9f2UrBxRoE4MNzwY4DnHVFzkk dfWw35iE2gUaMsSnX8XMgl D2RfxfM9JCGnxUTzYHtvITN9I50 vd4G2HDCsENAcXUD3jBW5hD1vgX lnbjogbGVmdDsgdmVydGlj BYoqCThrK011IVXapFlfIqKvMJl uZyBEYXRlOiAgMDIvMjAvMjAyND wvdGQ+KRIwMBE2lSfyHZUs iILzJSsdEn4slIaknFvyVH9qQWT yijimMJCcsI0aWVYdkBGvvUwnNA 0lRTZgbucpi627UcWsIAQ4 VSRypQFyV1HqxB5pEsJsAYRlFOU kE7VvxUQbFEngV431SUgxCcV7MN EkroJeM3WrTZXxnGjuMwH5 i7I9Ef3Rv7ZfkeehB4UqfCYpLzI aChkzMIv8F7KsYuzyyVK+PC90YW WxCG69ISu0DIN0iRwmWHlu AXQxC5YqbQ6yRwXbTXQjOBYzMii +PHRhYmxlIHdpZHRoPScxMDAlJy AzqMktBE3zVw5pCEVnFYIc vMxnpELgIuOpi4byACEwWZtmHN4 ywIqoP6VzlXO2CVQpv8v8Fh44S8 1kL8NnrSU+FKEzzVK4sMS8 gP6wFcSnGuE8YNxxV910IeQhyDU vActfc6nxi9jmqBz4BmT5GRQlta WlbEpqYIN9u1TjPg53Y60y IHdpZHRoPSIxNSUiIHZhbGlnbj0 gcA6gTu9+JXAthOT3aCP5jI6gDa BtZqL2SIadG794QnQdtPLy Yzzrz2ucc2oipOp6YmOcOXApvaR xkOaxTUX1r3UtAf57P4PqcNsgc3 LyYpy9jz55uSTbp4T9lNA7 T3NqKXDrtbzaoPFznZojMY0yALQ qikbsBCMugG0jOWFcP3b2JpRlIy Z6CWerG4TjcfQ3AOPpwCCl GRPkpQYQxA6pfkqkl2ibxfzyKaN yZWBpNGa1ETs6RWQlbCmtGkNqCM U6WtG9HID3dCKhdX2frIan yrhzbK7gIkl+OAS9uQJxbMWRRY2 lOjwvdGQ+MARaMQW1nKfcZVwyBM EurY6bTQMcT0d7WkMrKiH1 EWuzB6YcvrY3OOCxuDAhUPCwaGN ZgS8iilhte9lrhaogRsEoCBLyCB w5LHf9PNLadWxuXnUfSXU1 MqU9OJW1eGExmJ9uoJzdyvztdV0 wOyc+VocmkYukIWM6GHq2J5CxZc h2UHDtkEggUU2qtABhQLtg Wz4tzDddaYxfLH7pATCdcvjmt88 8QwOhi7arBGNybROxODovEEA9S0 9gu3U8XIHdBQWvSDP8sJQ2 nD0gxJgnlywjaIOfgFewpxJvfCi cYPbcVZfaK908GWAtmAwoVmQwWQ w8N6GgJnp5EIAsyWkwST0l cSFnZOgtSk1vjTasvGxdVZ3yFEX axhcng885LcVih1vgOVNslWYkUA rvURH6R61lh9C4DHPmBZPi YSM2vTV0pF7bqMnkcuqxqYCzoIa zhiSroVtbXJoeUHwsI834VAUshD cjAhTsuNh6V2QlYys1QWNo aWzeCK9ybDPnAPfzVe8gbZaqhWr yQA8oFOEcffyjl089LfXni5kyES SfiJUnNDcmEIP0W05rz1S3 APFzWSWnTMA4gQP1dT8xfQxgtzc gbGVmdDsgdmVydGljYWwtYWxpZ2 46IHRvcDsnPlBhdGllbnQg YWlsDNg9S3JbHhwukXA+OU87UNA vMV38zDCsdBLpq1hpoTb9LlWjMT LhTAH2sGyzEJbct1DxOCBt U57ljHGuv9A4CPBzzEjuqYLkYaH xkFJ9tI2eUBidctwwb2rzcqwlUe ibd4tcpf37pV89M72vEGsm VYPjWCJsWRZuHXImoIofzv0dmQ6 wIi8+KGMsiAZ1tLH8mN6qBDTqAu M5LErcB995OmDidDJzHmta i3ogf7apqKr1WgX1LRLaxmZmkCi hAQJ8k6YuNw42N60xEDxtFXEoEX KaQVAsSCIriNjgdj7uiT2v Ii8+INTwdKR2eTJ3yL0oBxFgCxB 0KYojA441QqAmwEWbPokkG85hU3 JvdXA+SPPcSgy5RIVsuKvq KY6ehRZhYTvsMw2cTRZ6OqBcQxY mEShnW7FtSOFmtrsuhnzuqPP1AI AaTNJjkD78Ue2idPznOVKv wYPPcG8ylunhe5zkjqgrVfMjIOO gJDt7PVc9JYUaeIlzRsMqTSP8Pd C2MDT1iUXzsO0ltXufyhbe wE0bP5GgAEUcyomiZd18xD5jAgP rBmV9SCnxKgq+TVVMTEVOUywgUk LOTKITRTATDSbMVkA5S0Nb Wih8EGWkkMppDA0xnEZnJIkxYp1 hfMixfGhpJJ9vBAEuanytIRMqqN 4sBUQnuYHsnXhrDS5pXJBx drlhb911IgZfLNL5URDacDRjK4H iuO8tLbBdLOFqCAHvV4TjjWBrUY awR394BHowWqT2DCFwgpDs G0QtYUYtrBowEwW3b2V2Sm1kJC5 tIw0iIWn2GP93CD49zYIbx3D8nH S2A5YtROLcojnpneepiUY2 MLQxQQLemB28pLQiYOvaOv9tm9P 0f914MTTzFEMdpP13Je2fqNacSJ ExsZXVdG5jyrwar6opoiwd YnQaEJYoFZl0SYm4XHVgkTbyQkC wLHB8IpF1BHK5dOLbbH7lfRklmo xsbP4kYeg+MzggWWVhcnM8 C7NzGom8JOWoaLxjLQ3qiEXvPSz bQl1oaKmjdUvqUB6qIIRfbgksVG NemI3xWYEziIQvkZaiUP6k WOKevrmol605RjGpXFY1WAXgzWI hS8KgjS0iHtEnOULfKXVeN1KpyD LhDUtfS557BWcpLdV8YVUl ujSeG1DzYRUxxDuxYaH0c1V7Zj3 HRQ5FOIF9L9XgLwe6RJJclAjeOR 3qmZFaZTpuDy4prWsdmIwc EV4oLPXjeppqKQLlwQ3aEJYxfKF fkFrnFX6cCFIooiahn566OyZkSU G3WWHzrUYsL3IywG7eRfWx TCIdMDHwR4BcvJIjJAkbX642NPw eNdP9JCTqbpUeO1CyFAJuoHyeGb Y8x7X5Tc9CUEyrnIL+PC90 ws82F6RyLxjdHgf0TRLtJCA1jWV 9lQ8pTISkRHhjj6N4aPJ3E8Oytj Engj9si1efKNReRNqeZ88q hWHye2G2VEByiLK2RNEoeFciUnB ggK61Kuk+YXEmyAffj3PqVqsqu2 ngc2nioTy7EgXkASRlexKh jAsqNUK6c4XzFc47I69hYQrwVXR eIZMcTZQaDLKytWpvnx1hoC8uUu 8+TXVqdAD1aYJ4tJ0hWmXd MnL0DUtjP329NuGixKOiLrgdf9r yb5fidTu9XlUuVLZmpuHytVpsMI P8c1DyEo56X9JbqHqth5Fg Ryz9qp41cWHtg4R6xJB8S0YxEGU gfsboyDRbtGtnKJ6dTUVxxjmnHU JebE3ePMJxA4w2MnOiIhA2 JTtcJ7YdclR7AQMjxCRqCQWezXO BkC1stcasc1gxmjdgYmUpAJDjOR w3RKv0DDHwjBiaKlPcOES7 XlA0NQI0mRMiaX5dpBrfejhukX7 wOyc+AAh6t1hpxAXpSO7mjKO7OS 92LR91cLGja9N0lBL1U6Ol OZCzikxkxnueuKQ5ZRAzCFWytD8 8Wb5zbUijWs7lUPUxNVX3DENzrN ZyG1DaiM3pCtDuPVNaRVSg K4EqyPXwHTbrQ978FJirByP3VJG zqnAyB9ZiTKGluMdiPvN0h3A7Ia 4LBW48NN95WB09mLBoq3N4 oDO5U7FeXGLtxdfdhepoxLF7IWI wRBHxdQ65Pb5iqQfhBz7dZZLqCL T9BDUfgAIhX6HlsR9aFyZj GIJmPLQnW9ZtvIYzPQarH962JWj xJoP7PQAqzbCgS7RrNEWcgVxyWk D8b6B2Zh8FWo72UA22NJ82 wLCiw0D9yLK9M9AgDQMufxgjgkw vqEK4HRFsSCWpnW92Ny9csXioXy 6gEDFqGZR4DDAejYSpF8Jr tO0lZpRrCXQxPCWyD4EgxWHoSWj lT084IOynKfK0JFLuqfAeD9RzSZ LyfFeqIsD6g9P9Ki0QDLis vwn1H7GgQncsyUU+UB83CFNhYZ2 8pSUueBWjq6otjUr8KkKpTBAzQF M5wXotANctt8DfIXEsL75k bGF (more content not included)... Normal [facility] Glucose Glucometer (dC) [M ass/Vol]Ordered By: Job Martinez on 04-24-2023 Glucose [Mass/Vol] 137 mg/dL [facility] Comment on above: Random Glucose Refer ence Range is dependent on time and content of last meal. Glucose of more than 200 mg/dL in a nonstressed, ambulatory subject supports the diagnosis of Diabetes Mellitus. Glucose Poct Glucometerson 0 04-24-2023 Glucose [Mass/Vol] 137 mg/dL Normal [facility] Comment on above: Result Comment: [place] Glucose Reference Range is dependent on time and content of last meal. Glucose of more than 200 mg/dL in a nonstressed, ambulatory subject supports the diagnosis of Diabetes Mellitus. PERFORMED BY: [facility] [address] [place] [address] PATHOLOGIST COMMUNITY SERVICE DIRECTOR SINCERE GREENWOOD M.D. Performed By: #### G LULS ####Point of Care testing, Glucose [Mass/Vol] 78 mg/dL Normal [facility] Comment on above: Result Comment: [place] Glucose Reference Range is dependent on time and content of last meal. Glucose of more than 200 mg/dL in a nonstressed, ambulatory subject supports the diagnosis of Diabetes Mellitus. PERFORMED BY: [facility] [address] [place] [address] PATHOLOGIST COMMUNITY SERVICE DIRECTOR SINCERE GREENWOOD M.D. Performed By: #### G LULS #### Point of Care testing , HCG ( test) IA.goldeni d Ql (U)Ordered By: Job Martinez on 04-24-2023 HCG ( test) Ql (U) Negative [facility] HCG,Urineon 04-24-2023 Beta HCG ( test) Ql (U) Negative Normal [facility] Comment on above: Result Comment: PERF ORMED BY: [place] [address] PATHOLOGIST COMMUNITY SERVICE DIRECTOR SINCERE GREENWOOD M.D. Performed By: #### U HCG #### [place] [address] [place] Vladimir 04-24-2023 L Specimen: [id number] Received: 04/24/23 Status: EVENS Serna Num: [id number] Spec Type: Surgical Subm Dr: Job Martinez MD Tissues: A GASTRIC FOR HP (GAASTRIC RO HP) Procedures: HE/2, Gross/Micro L4, H PYLORI Age/ Patient Sex Location Account Attending Physician Michael Ramon 38/F [id number] Job Martinez MD SPEC NUM: [id number] RECD: 04/24/23 STATUS: EVENS SERNA NUM: [id number] GRACE: 04/24/[address]: Job Martinez MD ENTERED: 04/24/23 [facility]: SPEC TYPE: Surgical DEPT: S ENTERED BY: [id number] RECV BY: [id number] ORDERED: HE/2, Gross/Micro L4, H PYLORI ORDERED: [...] supports the above rendered diagnosis CPT Codes 28804, 45626 Specimen: [id number] Received: 04/24/23 Status: EVENS Serna Num: [id number] Spec Type: Surgical Subm Dr: Job Martinez MD Tissues: A GASTRIC FOR HP (GAASTRIC RO HP) Procedures: HE/[place], Gross/Micro L4, H PYLORI Patient: Michael Ramon [id number] (Continued) Signed (signature on file) Saranya Brown MD 04/25/23 1135 [facility] ED Clinical Summaryon 2023 ED Clinical Summary [facility] ? Urgent Care [address] [place] [address] Clinical Summary PERSON INFORMATION Name: MICHAEL RAMON Age: 38 Years Sex: FEMALE : 1985 MRN: Acct#: Visit Reason: Medical screening exam; [facility] F/U RIGHT FOOT Arrival: 04/23/2023 09:47:48 Discharge: 04/23/2023 10:20:00 LOS: 000 00:33 Check In: 04/23/2023 09:47:48 Checkout: 04/23/2023 10:20:00 Address: [facility] [place] [place] [address] PCP: Shelley Mc DO PROVIDER INFORMATION Provider [...] verbalizes understanding of instructions given Comment: Normal [facility] ED Patient Summaryon 024 ED Patient Summary [facility] ? Urgent Care [address] [place] [address] PATIENT DISCHARGE INSTRUCTIONS Patient Information Name: MICHAEL RAMON Age: 38 Years Date of : 1985 Reason For Visit: Medical screening exam; [facility] F/U RIGHT FOOT Arrival Time: 04/23/2023 09:47:48 Primary Care Physician: Shelley Mc DO Attending Physician: Mati Bell PA-C Comment: Patient Education With: Address: When: Return to this practice Comments: FriJuly 22 at 10 a.m. Medication Information: The exam and treatment you received today in the [facility] Emergency Department were for an urgent problem and are not intended as complete care. It is important for you to follow up with a doctor, nurse practitioner, or physician?s doctor's assistant for ongoing care. If your symptoms [...] so we can reach you if necessary. [facility] Emergency Department has provided you with a complete list of medications post discharge. Please inform your physician primary care sports medicine/provider of your visit and for further instruction [...] (S90.31XA) Hallux rigidus (M20.20) Medical screening exam ([id number]) If you received any narcotics, sedation, or [...] and f (more content not included)... Normal [facility] Urgent Care Note- Provideron 04-23-2023 Urgent Care Note- Provider Patient: MICHAEL RAMON Age: 38 years Sex: FEMALE : 1985 Associated Diagnoses: Contusion of right foot; Hallux rigidus Author: Mati Bell PA-C History of Present Illness OCCUPATIONAL HEALTH FOLLOW-UP Date of injury: 08/26/2019 Claim #: [id number] Employer: [employer] Mechanism of Injury: She was moving boxes of celery when one fell onto the top of her right foot. 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 On 08/26/19 she was moving boxes of [employer] when a box fell off of the cart and landed on the top of her right foot. She was initially on light duty per [employer]'s telehealth visit. When she was not [...] her. She arrives in a loosely fitting [facility] for a shoe, and has been [...] History Medical history: Resolved Lower back pain ([id number]): Resolved.. Surgical history: CT guided sac (more content not included)... Normal [facility] Urgent Care [place] 024 Urgent Care Record [facility] ? Urgent Care [address] [place] [address] PATIENT DISCHARGE INSTRUCTIONS Patient Information Name: MICHAEL RAMON Age: 38 Years Date of : 1985 Reason For Visit: Medical screening exam; [facility] F/U RIGHT FOOT Arrival Time: 04/23/2023 09:47:48 Primary Care Physician: Shelley Mc DO Attending Physician: Mati Bell PA-C Comment: Visit Diagnosis: Diagnoses This Visit Contusion of right foot (S90.31XA) Hallux rigidus (M20.20) Medical screening exam ([id number]) If you received any narcotics, sedation, or [...] and treatment you received today in the [facility] Urgent Care were for an urgent problem and are not intended as complete care. It is important for you to follow up with a doctor, nurse practitioner, or physician?s doctor's assistant for ongoing care. If your symptoms [...] so we can reach you if necessary. [facility] has provided you with a complete list of medications post discharge. Please inform your physician primary care sports medicine/provider of your visit and for further instruction [...] strep) NO Fluid (more content not included)... [facility] Coding Summaryon 04-07-2023 Coding Summary HTMLBase 64 BqyvdfhjFIz5jKy+PGhlYWQ+PE1 VCOZuH35rwVTcjW3iF1LWXLuNZg ylHRIKQGwKQqRodwBzEV8wrUPeQ XJu IC8+PF2fUQVfJwfnhPQli7C5uKS 2B33edo5rAWmyuZQ2OWAeVxJmld ikg6ulyHq5WOvcQszdFwHp ORQrgN90ZMZ5vJ52Sa77cZFbhAW yn8stlMy2RbIiWYRkDVB9lWwuZM oos2MxIRVoE78cnDBie7D8 XXPauJdldEGrRoGhvVB0zZ3fYXn mdrkzj8xxtpswFlr6mf24yNXxw5 M4aUQ1M0OojiE1QCKpmBFz UlelvAVMjH2czdrde1vnsecbAkU eIQEkNIy9CAs3DUKkvJudYxPpRO 50SNT5WIBoquRkQ2CrMTPh nEwiRfH7k7R7Sg8XL6WPMrtyG0C NTUFSWTwvdGQ+GI06cn58P2EeGo wrHbw2VXRrINR9aYM5rX1b GRMgZLpsf9O3aWU1U7FgluRnxt3 ne9ufAFZkTWagL55hePLja4X8QJ VzjRY4ALBlrYebQlNwdW91 Oyc+SVLjxKuag4GiClmos1sua2t gdUr0DsegGPVwuvYtuAkrOTG4x9 ImLx9rEMUcpAF6yHQ1rI0l SvPyZiZ9NHncV964FlFbdGVuUkx uY04rG4HgcUQ+GFAlEmd1QFVhiY hdHR7vY0EgGGKzbvfztGQe sQnaEW9kEKBthtosLSAjiV9mCBM lU0y1XlYtKoO6FHqeU5WbMRAwod etFn38lL2gUuAhHeY5HPji J0CibxB6DDYyeTEoHJkvSWG5J96 zk6E9AWYrLHDkIZT7jAB5uG8rvU lnbjogbGVmdDsgdmVydGlj ANleGBuyX052YYRhzYwdNqBbOGt uZyBEYXRlOiAgMDEvMjkvMjAyND wvdGQ+IRMeMTP1wArfMCFa bDNcJIzoIf9xkIhpwCbjHB7dMNR uttceCPPsjA5nAALvcEEklUqfAO 9lYGQvclekd913IdTiQNQ1 GGPihMYiF8VpbN4lHdWgKEGnVWO eO8EvhZRoIZhcD439DTqoSoV8FK BicpHxO6DyJITvdOxfRaE4 t5V1Bi4Hs2FevsumY0AprXZeSfC aGsqfJMk4A6WcWrzsfBW+PC90YW GqIV70DOh3MGU2vTpdVWtp POHhI7LplF7jHzXlBRZuPBDcTsu +PHRhYmxlIHdpZHRoPScxMDAlJy BczSvdNB0aFe8iXFTlNCOk uDwanLDrTtQpz5aaUAJyIDcpKD5 kcEgeV3NawXQ6HWJbs3r1Un26S7 3sD1LhcVD+GSXzwVU5eKN0 eD6kFvMtPiH0OLihC608MiNexIE hUrcxk6moi3prsHm4VkL9EVHmps ItqGsuXTB6c6AmIa94N65q IHdpZHRoPSIxNSUiIHZhbGlnbj0 zrN4zBg7+UZPewJD7gYN8mV8gFy ZoFqF6RQhkT743OqAhsXEy Xexqp0elp6yssQg8OmRzDGHmgoU hsWmzCLG1g2UdDx38U0GpbLamm1 HtJzq1sc50gJAta9E8wFT0 W8MeUSQzqvxcrOCzeKrzBQ8cXCW rijznNLIyvO7xCGWaM4r9IrLiYc B2DQoxZ9QnafD7LQAdhAMi NLYiaOLZhO9mcbkev4iorzzzLuQ hWSWrDSu6FUd4FBNqgFqnAoFlVN W1MnK1GFE3cSKutH4qnBeb njaonA4tDwq+OQK5nYQnuSRBLB3 lOjwvdGQ+ULJqDQQ0kDwdNZsbMW YdyF8nNLTnX5m7MpXhPeQ2 ROlfR8SyxdU8DJPasMCmXNQbeUA PdN2ebkjpb6kpqghkIhWjCGMqON z7LMb3DEUvrGojSpGlVUU7 TjE3IKB3pAYizC3orIqsnksgtW3 wOyc+RkfbpBtyHYU7HHm0F7DcXx y2GPLuqIgnYO7dhNOjKXyb Ov2klPuutPqzMY9jDGHqdownl12 3VoWnj7wuECIcgIGbMNqaUSA2D5 1nf0D6SMLlYQUtUQZ2oFZ4 tJ5bfBvdpekabJOdnZcjvdQqdTs yCHxbXMjmP152SLFarGwuRgDgUY z3F5FqWxh2HUCuvRkrQA9x mFKmQSyaCo6ipRykuPktPN8rJVR jqxvfy094FmPxu1qsJVKesDNqPT aaDZS5N58sj0P2AJPuAXXe WNV6tGB7dX9nwNqaccvocFAkwFd mbtEepTviWWfgNBbuL985LEKzwJ aaBdObmMh2N4TwPhe1TVYr pImgGD1icJQfFHskMp0rsQmatOm sUK4gPVIxxxjxc145KhPjq5qpVV PlqJFeEGsoSCZ7F57op8Q4 JJXhSIZeWFZ6fRK2lH9cbAcmsdf gbGVmdDsgdmVydGljYWwtYWxpZ2 46IHRvcDsnPlBhdGllbnQg LFyxFZi7X3UwJqfciZO+XT90HWR kTX26rLZkhCVap1zcjGy3DqNoZO HsLMZ4nUrrVAdlc2YnNALo U11vpWZth3P8CGTmpZwlsMXbLwJ lwZV3xK1hJXndxtoir7ovyxtkLk bta4suen79yJ39Q39lRHrg LIPfKSMaUKQqIHItzZvhyq7yzY3 wIi8+OULwvWP2mYT2pH0hSANgNi Y9BEbnT442FjVosEBnGrux b6lyq0knyPz0HyJ3DJRmpwBqsSb wSZF5x9IoEe43U26yRVsnJECcQP KgWBBbVBDnuXvszo9xxC6d Ii8+SFTfbJV8qBU9qI5pWqQeJcZ 0UPauF687XdMzpFYoQcvwF57jB8 JvdXA+VIIvIyg7WYYvcTqj XK6ceACjTBpdZf0nOFO6RcBtJxS vZZmeE1FuAUQzivpdmzgiqWN9FJ NlBTQihH45Fc5caYzbERWm cRYIpP5maccxb2vtwkjkEvUvYEE uLHt7GGv5DXFdiJnqMvRcGEC8Gt J5YRQ2vXWybD4szMqzkych cV5xP1IrTGJmfgjbUs33kM7kJpN eVnR6MJghNwi+TVVMTEVOUywgUk RUXJKVVPWFAVjAPsL6X5Fq Dfx0BZStrTrmNT4wfWSqZNbmJf4 wvJhjfWbhYV0iUKDbzjgoCBNioF 7wAAWluXQjdTfoCP3qRXDw lwhug504AaStZEF0VFVlbYEyC0Y jaA8hFpJsDHOuMSNbA7KczRYrKJ dyY084IPdmZpJ8XORmjkTd M8UkRWRehSelBuV0b1A5Dd3vGS9 eOq1gBDh3YU15TI82iECgi2S1oA Q0L4CeKTNbvlatwlkqqRV0 QQFvQMFqiQ99fVUcSHntJx7ev9O 9f433NPOzXYSaqK02Qi0axApsFL UkbNWIhF9kxajao8xytnls DfZdSDNuUQx4GBd5HOPimMbmCqX lCCF0RyQ0VPW8xOFtaF1ndPdfbj mmiJ4bZlf+MzggWWVhcnM8 W9AdQzh4CODxfLnnXR0znBVhQTa pCf6ieOrohShhMJ5nKATwyefcFE LhaX9dKGAzaCKjpJwmKA2u LHApibkzy103HkBvAQS1FDPydIK fS7GxwB6uVhXaYXFuYLTwJ1WcbU NmXJsrW369PTwmLyU0KMIq tpWgG7BaXNRnlXcoFxX4l1X6Tw9 RZE9CUHJ0W5InJxw1NPGmeJszUF 2fnCCaRFhsBd3xlLsqtJvy HX3sFEOqlysxMCEwcM5gQCUnoZD owDuuYG7mZVSwqxsmw931NzNwSQ K2ODFhbCYlV8NuiJ4jWnGu FHDvZFPrQ3ZmjWEePZxyH745CBr lVfV8RVUjfyElB1AoQDTeuLlpVe U9x0E1Yf4XRZmiB2EsP8Nh eTwvdGQ+FA25xc11P7KzBlvhVpe 8OLToAKZ3jPJ5zL0hHNDuNYnai8 G6iOY0Y4EnwcDryv1qf0ec GIAhRMqdL52xqMIol2D0FTTrjSL 6NVVimZaiEmZqqB21Axt+PGNvbG ccp3NaWaqnl1vpl4aqdZv3 MbSwWRHpizQpuCvlZPY3i0SpPi6 1M18oBGmiFVRdRJHxDJLdUXNwmP oqom7hpD9rTi0+PGNvbCB3 hQX2mX9hObFlPvG2ATxbN553UqX etPPpCxuip6svf7eokWz9GqLoTE UbpcUnkGfjNBW9t3GiJx46 J4EnnCwxe9EzDfa8sl60nPWhn8X 7jTE6K6DjIKIhcwftuYMacKkmLO 0jGXHcyvqgUZLsfJ8rXORf Y8x0AjRjVlY4QCjjI7DoprQ9HVG ajPOhMRCbySITsS5zgiiap2cbkz wxPeBiHDTdAFj8BYu6OMTq nFnmUlRsEKE2BuS3PUW4hVEnlC5 upNamtiaftG9yIbq+EHl9b4elcQ XkJU0kgZF8FS75US64fRZy q2C3gEB5X2RuLELkzkfutuqcgEQ 5XXAwFVVxnO02Ps9rfAkmMx2hBH ImVGT0TBKrcLKuZ8GvbC9b WlNmXSMlGDCeE0JqiABoGYppI69 8XHmxThH9KFWilsZzL6XdUQNatY vrZtH6q5Y8Ke4EXK64PX33 AL06wEQgy4Y5eIR6H3YtWOKxfwn pzwbcrSM1ZTPfCMJiwG84Nx5opX gsFv5eRIGeHUV5RRXlsAIw G0KcfC8lIiXiCZQkFGBxM5VbmFT hRTagR663TEggIpU9DYEgfsEhE0 XwXNLbfJvpPjM7m1G6Fw5M Un75AP14FT97pPXru0E4bOR9G5B xICLdwbtsjjqgiBF7LYVuIUQfpX 80Fy0zcNteWj4hMBYhSSZ5 SWVnvFThC5BlvQ0vBbMjBYVxMUZ oP4GzzUShYUqsI457VXcjSbW0UB ZdtaPaY2SgWZRgxWnqCuB3 l8Y5Na8UTAzxkmk0G3NdUbzjdJG +DZ31LTVjJS00aLFqwGQrc7yeaJ i5NzBuRITtPGB4pUifMErc b3J (more content not included)... [facility] Consent Formson 04-07-2023 Consent Forms [id number] [facility] Inpatient Patient Summaryon 04-04-2023 Inpatient Patient Summary [id number] [place] [address] Patient Discharge Instructions Name: MICHAEL RAMON : 1985 Patient Address: [facility] [address] Primary Care Provider: Name: Shelley Mc DO After you are discharged if you find you have any questions, please, call [phone] ext [phone] to speak to a nurse. Discharge Diagnosis: Prescription Information: If you have been given a prescription for narcotics, seek immediate medical attention if you have any difficulty breathing or any sudden status changes such as confusion and sleepiness. If you or anyone you know is experiencing suicidal thoughts, mental health, alcohol and/or drug addiction problems; contact the [facility] 30/09 Crisis Hotline -Text 4HBBN to 455569. If you received any narcotics, sedation, or [...] business decisions or sign any legal documents [facility] would like to thank you for [...] Sore Th (more content not included)... Normal [facility] MAGR Intraoperative Recordon 04-04-2023 MAGR Intraoperative Record MAGR Intra-Op Record Summary Primary Physician: SAM HERBERT MD Finalized Date/Time: 04/04/23 11:11:31 Pt. Name: MICHAEL RAMON SHAQ /Sex: 1985 FEMALE Med Rec #: [id number] Physician: SAM HERBERT MD Financial #: [id number] Pt. Type: D Room/Bed: / Admit/Disch: 04/04/23 09:45:39 - Institution: Case Times MAGR Entry 1 Patient In Room Time 04/04/23 11:04:00 Out Room Time 04/04/23 11:12:00 Anesthesia Start Time 04/04/23 11:05:00 Stop Time 04/04/23 11:11:00 Surgery Start Time 04/04/23 11:05:00 Stop Time 04/04/23 11:11:00 Last Modified By: Ami Baker RN 04/04/23 11:11:25 Case Attendance MAGR Entry 1 Entry 2 Entry 3 Case Attendee mAi Baker RN, Lauren L RN Murphy, Sherry L RT (R) ARRT Role Performed Signs And Displays Salesperson Relief Signs And Displays Salesperson Industrial Safety Engineer Time In 04/04/23 11:04:00 04/04/23 11:04:00 04/04/23 11:04:00 Time Out 04/04/23 11:12:00 04/04/23 11:12:00 04/04/23 11:12:00 Procedure SI Joint SI Joint SI Joint Injection(Bilateral) Injection(Bilateral) Injection(Bilateral) Last Modified By: Ami Baker RN, Barbara RN Long, Barbara RN 04/04/23 11:11:26 04/04/23 11:11:04/04/23 11:11:26 Entry 4 Entry 5 Entry 6 Case Attendee Georgette Thorne Brittany E CSFA KINDL, THOMAS F MD GROUP SALES COORDINATOR Role Performed Industrial Safety Engineer Scrub Personnel Surgeon - Primary Time In 04/04/23 11:04:00 04/04/23 11:04:00 04/04/23 11:04:00 Time Out 04/04/23 11:12:00 04/04/23 11:12:00 04/04/23 11:12:00 Procedure SI Joint SI Joint SI Joint Injection(Bilateral) Injection(Bilateral) Injection(Bilateral) Last Modified By: Ami Baker RN, Barbara RN Long, Barbara RN 04/04/23 11:11:26 04/04/23 11:11:04/04/23 11:11:26 Entry 7 Case Attendee Nestor Hoyt GROUP SALES COORDINATOR Role Performed Scrub Personnel Time In 04/04/23 [...] RN, Rosy Jaime RT (R) CHRIS, Georgette Thorne Adkins, Brittany E CSFA GROUP SALES COORDINATOR, SAM HERBERT MD Last Modified By: Ami Baker RN 04/04/23 11:06:40 Patient Positioning MAGR (more content not included)... Normal [facility] MAGR Preoperative Recordon 0 04-04-2023 MAGR Preoperative Record MAGR Pre-Op Record Summary Primary Physician: SAM HERBERT MD Finalized Date/Time: 04/04/23 11:08:51 Pt. Name: MICHAEL RAMON/Sex: 1985 FEMALE Med Rec #: [id number] Physician: SAM HERBERT MD Financial #: [id number] Pt. Type: D Room/Bed: / Admit/Disch: 04/04/23 [...] Signed By: Ami Baker RN 04/04/23 11:08 [facility] POCT Glucose Levelon 024 Glucose [Mass/Vol] 78 mg/dL Normal 74-118 [facility] Comment on above: Performed By: #### 4 [id number] ####[facility] (DEFAULT)[address] [place] [address] Patient Handouton 04-04-2023 Patient Handout [facility] Progress Note - Provideron 0 03-27-2023 Progress Note - Provider [id number] [facility] Progress Note - Nurseon 03-10 Progress Note - Nurse Pt called for refi ll on RAMAKRISHNA Merrill reviewed and OK, pt compliant with OV, sent to Dr Herbert for approval [Electronically Signed on: 03/25/2023 11:52 EST] Josefa Schuster REMY [Verified on: 03/25/2023 11:52 EST] Josefa Schuster REMY [facility] Physical Therapy Noteon 03-10 Physical Therapy Note [email or web address] [id number] [facility] Progress Note - Nurseon Progress Note - Nurse Patient called and left voicemail requesting refill of Baclofen be sent to [facility]. Patient compliant. Prescription sent to pharmacy. [Electronically Signed on: 03/18/2023 09:30 EST] Giuliana Travis RN [Verified on: 03/18/2023 09:30 EST] Giuliana Travis RN [facility] Coding Summaryon 03-17-2023 Coding Summary HTMLBase 64 HrjexmlzBWx0aAn+PGhlYWQ+PE1 JDMQnN81rkYBayH1vB9TWVXrPAe zvSTHVHHxPTxUrvxKaGH9udJNeY XJu IC8+GU0nIEJqRiqnaOSig4D3jLD 0E56hbt6pOTzxbVJ3PGLmInXpak fob1nhcSa4ZNtzSowgJyWi JZIfvK65RCG9oJ57Xi27bJJosLY gq5oogOs3UnUjWXVeBNY2zDvxUV qux1JkCWWbL11ldBIdd6G1 OBWnfNjgqWRyPkGgvGG9pH1eZKa ebuiqf5gtblayNav1fu99yWTzs8 K2lWZ8K7EwtaY6FWUweDKm NcpylDVZnY2kgmbar5qoqlqdWyO vVFJlAZf6XLx6WVAegZelJtIpRK 05YEU9EURmbfEuS3WhXBVm sVqyEuP1k9S4Kw9ZR5ABRjoaC5W NTUFSWTwvdGQ+CN62xh34Q1RrTq ocHjd5QEOeSLM5kRV8kX8f OJFtWRqjz3H4zWB4D0AzhvFyid3 ea9hiHMDgBOctC09kbUNbg8X3FP PrzUT8JTKpoUpuUaTpeK83 Oyc+NMGnoClcg3LuEasec5hbj5n zyTo2RkkyGZVonzZdgYepEQS7v0 ZzLx9sNCBpbZS1aYG2xS8q BpRpJnN1HNxxL832TeQahXCnAgb qQ21aT6HfmRS+QVBnJsa2MHAwjW wjNH6uM8MeHCSonssroPTt yCscDD5oHBLnogdpKCVgpM4zBYE uM7p1WrFuIgQ1KYawP0FwMRAhzv hcXm90wY1nOlWaJhW6SPzi L7AfrnA6ICBqwUSvEAzmDGR7X82 wl8M9TTYxDZVhRIO4tRS1dK5baC lnbjogbGVmdDsgdmVydGlj QPpjFAdyV438EHZyuButVyIqDZi uZyBEYXRlOiAgMDEvMDgvMjAyND wvdGQ+NATgPOY8qJqsWKEu eOGiLUbtTv2vsAzsgFuuRO0dMWI deuvaICYgvS1eXBMfwSOugWznCV 0mXULuyxpub652XiXhIFZ6 ZVXlaSHeL2HivW2kPtAsYJTbKTY fL7LjeDSsVYkiI175FRyzAeE2VZ WskmFaW6MyULKqjSwfDtO5 t3K1Tu8Na8IjllzpY9KtmRHuGhI wIprmXKq3C8ThAfezhJP+PC90YW YfCK22KQx6JEI7mVuaMLne VLYxT5CusL9oCoIqKWUdRYZeMgx +PHRhYmxlIHdpZHRoPScxMDAlJy KbpTfcNJ9qQs0sXVIeSLKj jXpfhHTwWiQuz9icTKRjNQlnPS0 ktItiL3DmnKF9ZMPky6t4Rm24Z6 2yK3VvxJU+SALrqKX9tYZ3 vD2zZmWsNlN9QUpzD993YkSczIF yYsktb0odg2vofFn7TfA0DDFgtr AaqZrqQFV6m2NxHx96S23o IHdpZHRoPSIxNSUiIHZhbGlnbj0 gbA6iQr9+EJMsvNC6cXZ9gS7hKi TjCtM8AGkiA702MfAyiEYd Onjot8rvb7attOq8PxEbBEBwlmK hzIsfBWB9l6HjSl71T3ZwtHrhm6 AkCgm3ta70lNChj1U3vAO2 C9GsEABxibdkyDRatWfbWJ8fRXO cypggCPOlsN9yXEFvW5h3IhLhTz V0FUmiU2BjleK6BBYnhGYc UUHucCDTcP0cbklao8oanpgpUhM cUTDaAZg3KWe3YSRjtVjaQhZdDT C5QkI6MZD0rZFkzB0rlSyl apmbjL8fHds+GWS3xTRpiMUKQI1 lOjwvdGQ+MMQwLAK3lApvFPbcGW DhvO6bVVVrV5n5QtQzHuV5 KHsjX3JebkD5YUBahLMqSFMbwFU BuC4kvpasx5ozpudwBdCuGNDbIU u6QBn5LBEkvCulRcWpAEA8 MyG0EGL3jXIixM8biTysytyeqK0 wOyc+FxpzbCxiOUG1YWc9C5XpBr c5CCQocXvaAY5ynUOiTWpa Pu6ecAgudOvtXP7sXQCwoiakq68 4HeFkt7xjEQHviCDiMHxrOWD5P6 8io6H0RCIsHMKxMHB2pFD7 hX8ayXojnobdiYJovByokvKcdFw pPJypSXknU143HXOgvYfnUzAbJK k9S1VvTmk8RJVpeLkwQL1x uYSuQHzfHi2yzFgxlGnzXY9jMAE jwkwkj786ZxDuc5zoSYUyhIPrMY woCVS4H23mp5Q4EAHzQHJx CTL9vDQ8kD0eeIacctyysPRmsSl gerUsxZrtAWvxCUmzR513TGDbeG qxWeXufPc2J5OiTft8YWFa eAsrZW1kgZEcOBtoFz5zzStrqOt uKE8sGDIsbqrbs488PrFvd3lhVV RelPQfWPytZGZ9B00ae4C4 WJOhCNIgIUK6kIL0eX1tkHznknm gbGVmdDsgdmVydGljYWwtYWxpZ2 46IHRvcDsnPlBhdGllbnQg XMmjJOq9N4LwOljfjHX+DR65JHE wFH22jIGfjFMeb5pgrEc8JcKuZV PqQDZ5bKuaRXxlz2GoVDAp S51vaNNcf7A6BCJofPrjxGDrWsA ztDW6eC3vDIiljlhus9emfsehHf his4gwzz30jA62X81jUXlb EIRaVCNbMOUgFJXvhEzmut6ehS6 wIi8+NDJpqVH7cBW8yN2eRCQyGg H2BNfvU702YmAggKSxZnkr b3rop8jlrMf6OuY5UKNqxgBehRp jGVX6r3JfWt86K24jYTviMETcZA BbPAAuPWXgdRhsrc1rmM5h Ii8+SVFgrIA2qMY5sS2lCqHuPtR 5HJbpO737SkCjyXYaGiqjK18kW2 JvdXA+QKAxIrc3WBEkfXop CP2ntHZlNVtiUj8oUBM0TiYjKoW pRJrxZ5NhBLVmxwrursldnRM8WD IvBAEgbA39Xb1zsYuiAPJh dIOObY1ceromy4racpnlOpUyAKW sJBm6AGa7FCIvqCvyZrPpAIK9Cm X4ZFL6fUPaiR8xdRffivqc cH9dO3UfMKVmvzpmRm74jB1gTbQ aVyG3EBgjYdc+TVVMTEVOUywgUk NOMOEBQPSXDLtAHnD4B6Px Jtw1OPJjeOlmJB4gaBQmFDtrTy7 ruXqohBikEY5cIKPfatfyGKPvdL 9nVMDliSKwuLfuHI2tAXGj qglce024QkGuFHJ9OBLdcDHhQ7T hcH6dNeFfSUEcDNAcD6DauGYaAA otO410PTepAvG7CDYdyyQc N8GdSBJmrGvePlS9h4V2Bc0jQY3 bEp8sXVp9CI38VO28zFYbf8L8vA M3O0OmWWWedoehflcxnAE7 BQMyFHAfdL72lKJhECvkBt9rb4R 6t166HFHvWREcyC65Et1peEfyQY GnjPDLfW9gpxigk5jiwqhs EgBuYZMtXIm6DKw5YFDlkKtmNmQ mKHD9WhJ0FOA7pHYiyH7cxNhmyr fknZ5jKvs+MzcgWWVhcnM8 D7RzJuo0TWClkEkeLJ5obDWzAPu eIz2wkClavCncZF9vVDGrsklsUQ FnoA4lNGVisHIjxZkgTU3n NVHdulukx168UyLyPQU2VZCvoQM yJ2YtvI3vFlRxJZIyMZBfW3UjxA JfHZnvQ979PNglVeR4NCCe zsVyV3WbVKHhyLcaSpW7w4F6Iw9 WOM2OTXM1T6UdWvl8WGElcFpjEI 7xzIKhGUqfLy1wmBfkuKwz TJ7oCUFksfhmXFHtwR9nBDZkjCI ppXwiQJ8fUEUsbwsqn364RsQqJS U1LSZwxRSaT8AaqY9oJaPe MAZxQUIrS8ZiqODaOZoyE807HHb rSgR5ISTkauWeT9KvAXNwbYcuRd D8m5H0Hy3EHBnwhMM+PC90 gm61F9XaBbvmOxc2XYFvGXF3pVD 7nQ8uURAiWFlmj5N9kWP2Z4Stfi Lvgz7mi4ieAYJlMRbfZ71z jNLdc4M4KQSgiYO9VAFqbLprHgM ajA05Kat+PRIglYkge8NrBceim9 sht2nebBu2KhTjHDErltMx aOnqJOW8w5AxBw04E69oSYcpYCW mDPFcPICeZBZgzXresn8nyG4hIc 8+NWIpsUY9bWN9dO9cJfYe FqQ0LKyvN097IiIadLPdKdhro9o ur0agqYx1XuLbXMLyfkMktDxqZA Q4j1KbNf00C8ItdUhio3Gd Zif6il09vVJrp9H2eWO6R4HkABE splppaEPlaVreJT4wNVDnfpusFN BzwI3rQOMpE9o4XlFcScY4 CTrzB3SftlF4WLKmkONxHABzzXC OdD0omqlqs1nfttylAfDbVHKtOD t4DPr4CMIsvRyuMfAvEEU2 YbU5IMJ5eGFxqE8fyKrzxighgQ3 wOyc+ZNq6z3gseUFqHR8lrOB3GP 84UN45xZLtq4H0qGG3M4Vb JRXzxtzwhrgdeIM5IUQqFNMlmE6 7Qf1amWbsNy4mKDIwNJV0IAIsjS HiU9UbgR0aXuOcKRDjLFDo M8LxdNFkROlzR331YWiqCpI9LFN ouuOhQ3EsFHFazQyoUwY6g5Y2Ft 2WLW80EV53OQ53uYOns6P2 bUN8I0QnHSMouhiqkeehsUE7BUX rMJWvhI39Xb9drBnmKn2cCTUaRO K5DBHmbJSsM9TaaU2pTuUc VXBiZMTyL2DriYRpFViiX007YHl oHaK8ZBUmnvBaW8DjODDggYdhPw N2b6F7Bc9ZIs73IU06TA17 sTIgc2W7nJB9Y8DmUOAwsbuiypv cyOR4LFIqNABidD86Xh3wmYjvOn 9bDMVnFIQ4YTXdrOOwQ0Xl iN3aBcErDRMaGUBtF7KizWHnRUw zS130SGqnBxR4POZdpcZgD4XyXL DwyLpjOkJ0v6S1Cb9YDSyr xgk4C4ZcIracaCK+JR87NIAaHB7 4lMQzfZYce0ionVv7PvQhOGFmLT Y2sMyzEKbow5EtSSMmB90s bGF (more content not included)... Normal [facility] Activated partial thrombopla stin time (aPTT) in platelet poor plasma by coagulation aOrdered By: Job Martinez on 03-11-2023 aPTT Coag (PPP) [Time] 37.6 s 25.1-36.5 [facility] Comment on above: A hematocrit value g reater than 55% may lead to inaccurate results in coagulation testing. Patients having hematocrit values >55% require a special collection tube for coagulation studies. Please contact the laboratory at [phone] for redraw instructions. Coagulation Profileon 2023 aPTT Coag (Bld) [Time] 37.6 s High 25.1-36.5 [facility] Comment on above: Order Comment: STAT FOR UL Result Comment: A he matocrit value greater than 55% may lead to inaccurate results in coagulation testing. Patients having hematocrit values >55% require a special collection tube for coagulation studies. Please contact the laboratory at [phone] for redraw instructions. PERFORMED BY: [place] [id number] PATHOLOGIST COMMUNITY SERVICE DIRECTOR SINCERE GREENWOOD M.D. Performed By: #### P LT, PP #### [address] INR Coag (PPP) [Relative time] 1.1 {INR} Normal [facility] Comment on above: Order Comment: STAT [...] Performed By: #### P LT, PP #### [address] PT Coag (PPP) [Time] 12.3 s Normal 9.0-12.9 [facility] Comment on above: Order Comment: STAT FOR UL Result Comment: A he matocrit value greater than 55% may lead to inaccurate results in coagulation testing. Patients having hematocrit values >55% require a special collection tube for coagulation studies. Please contact the laboratory at [phone] for redraw instructions. Performed By: #### P LT, PP #### [place] [address] [place] INR in Platelet poor plasma by Coagulation assayOrdered By: Job Martinez on 03-11-2023 INR Coag (PPP) [Relative time] 1.1 {INR} [facility] Comment on above: INR Therapeutic Rang [...] [id number] Received: 03/11/23 Status: EVENS Serna Num: [id number] Spec Type: Surgical Subm Dr: Mohit Mcghee DO Tissues: A Liver - Needle Biopsy (LT LOBE LIVER) Procedures: Trichrome, Reticulum I, Iron, HE/2, Gross/Micro L5, PAS - Hemat, PAS - Diastase Age/ Patient Sex Location Account Attending Physician Michael Ramon 37/F [id number] Job Martinez MD SPEC NUM: [id number] RECD: 03/11/23 STATUS: EVENS SERNA NUM: [id number] GRACE: 03/11/23- SUBM DR: Mohit Mcghee DO ENTERED: 03/11/[address]: Job Martinez MD SPEC TYPE: Surgical [...] predominantly lymphoid cells, but also with Specimen: [id number] Received: 03/11/23 Status: EVENS Serna Num: [id number] Spec Type: Surgical Subm Dr: Mohit Mcghee DO Tissues: A Liver - Needle Biopsy (LT LOBE LIVER) Procedures: Trichrome, Reticulum I, Iron, HE/2, Gross/Micro L5, PAS - Hemat, PAS - Diastase Patient: Michael Ramon [id number] (Continued) Specimen: [id number] Received: 03/11/23 (Continued) Pathological Diagnosis (Continued) Signed (signature on file) Ritchie Spring MD 03/14/23 1246 Specimen: [id number] Received: 03/11/23 Status: EVENS Serna Num: [id number] Spec Type: Surgical Subm Dr: Mohit Mcghee DO Tissues: A Liver - Needle Biopsy (LT LOBE LIVER) Procedures: Trichrome, Reticulum I, Iron, HE/2, Gross/Micro L5, PAS - Hemat, PAS - Diastase Patient: CiciMichael A [id number] (Continued) Specimen: [id number] Received: 03/11/23 (Continued) Pathological [...] associated and (more content not included)... Normal [facility] Platelet Counton 03-11-2023 Platelets (Bld) [#/Vol] 284 10*3/uL Normal 150-450 [facility] Comment on above: Order Comment: STAT FOR UL Result Comment: PERF ORMED BY: [place] [address] PATHOLOGIST COMMUNITY SERVICE DIRECTOR SINCERE GREENWOOD M.D. Performed By: #### P LT, PP #### [place] [address] [place] Platelets Auto (Bld) [#/Vol] Ordered By: Job Martinez on 03-11-2023 Platelets (Bld) [#/Vol] 284 10*3/uL 150-450 [facility] Prothrombin time (PT)Ordered By: Job Martinez on 03-11-2023 PT Coag (PPP) [Time] 12.3 s 9.0-12.9 [facility] Comment on above: A hematocrit value g reater than 55% may lead to inaccurate results in coagulation testing. Patients having hematocrit values >55% require a special collection tube for coagulation studies. Please contact the laboratory at [phone] for redraw instructions. US guide needle placementon 03-11-2023 US guide needle placement [facility] Main [place] [address] [place], [place] [address] Ultrasound Report Signed Patient: Michael Ramon MR#: [id number] 2328 : 1985 Acct:[id number] Age/Sex: 37 / F ADM Date: 03/11/23 Loc: UL Room: Type: [facility] Attending Dr: Job Martinez MD [...] Mohit Mcghee M.D.03/11/2023 2:50 PM Dictation [facility] Tech: Denia Goodwin Transcribed By: SAEID 03/11/23 1450 Dictated By: Mohit Mcghee DO 03/11/23 1446 Signed By: 03/11/23 1450 [facility] US needle biopsyon US needle biopsy [facility] [place] [address] Ultrasound Report Signed Patient: Michael Ramon MR#: [id number] 2328 : 1985 Acct:[id number] Age/Sex: 37 / F ADM Date: 03/11/23 Loc: Room: Type: [facility] Attending Dr: Job Martinez MD Ordering Provider: Job Martinez MD Date of Service: 03/11/23 US/US needle biopsy: . Copies to: Job Martinez MD Post biopsy ultrasound assessment of the liver. HISTORY: No worrisome bleed. US/US needle biopsy IMPRESSION: No worrisome post biopsy bleed. Impression dictated by: Mohit Mcghee M.D.03/11/2023 3:44 PM Dictation Location: [place] [address] Tech: Denia Goodwin Transcribed By: SAEID 03/11/23 1544 Dictated By: Mohit Mcghee DO 03/11/23 1544 Signed By: 03/11/23 154 [facility] Coding Summaryon 03-05-2023 Coding Summary HTMLBase 64 OivqlasiHCk8wXr+PGhlYWQ+PE1 LHYFcO94mgFIjhP0xE7QEMPeVJe esDDDLXMoQSjTeaiFiTB0zsKIhS XJu IC8+IK7mEYCyQzuqmPFir6Z9sGO 3E81sti0mPAtouLT3IDUeQgYghk tvz3jgiTt5AHokClerStOa ZHAybD65UUJ1eN06Vl87dFGgaPG yj0wymOe5RdEnRCZtRHN0zDhzEL pud5SdHODvY90ugGGrw1O4 STGijVrcuJOjXsYukEB2lR1hPDc yqbivx0vrugnzZcy6tm63sDOom6 G4lWB1O8UulvL2CKHasVMk ThswnCYJkF1xooqds1bsloknWxP sGVKnEVh1ZPv9PINggMewRaLrAI 26XAQ3IBJjmaYzG6VaIOXc kYmqZuI9g2F2Ec6KY8ARQielE5W NTUFSWTwvdGQ+ZG31nj80F3NvCb abVfx6LXAsHVX2gXX6iV3x SEAtBOdkg0Y0rBV9N9NajdAzbn6 ln8jcGHEdOSwxL27lrNZue3G7JQ UdgPX5WPKzeQtlPiQekG95 Oyc+JQBcrDone6WhCayvz3iid1t afNs1OiwkDVHcoxTbwWosPTV9o7 YlSr1uTCOkcCA2dXG4jS7v WdLoPuY8JTufM704CaAuhSEoFgi mE26tB2RwcQP+AZUwOdq0JMJeiN gyGS8gG6ViXEGpzldbbTWf tKodNS0qPMMivvfaSSUrjO9uHOY eF7v6BdLcYqW6FUeeU0WmADBqxm tgCy35dH5cPmGiBiJ4PEpk Z5RigwI0RBZxfUYwZTlkRFJ2A51 mw6M4QZRpSLFlLGD6aHE2oN0pfA lnbjogbGVmdDsgdmVydGlj MCxbQXxjF978HBAnlJmaVyVeQTf uZyBEYXRlOiAgMTIvMjcvMjAyMz wvdGQ+YTDiJXI3eXmkFHVk cCPgKEaiIl7oyDbhcTzdPA9lEHO lujooNKWlxO4bOKBjuWMigIhaPS 1tJKLcxcbbq760PtHxZJI5 LXGdvMQhA9ZioP5dPgZpXZVcDST uP9EwnLQgUPloN416VBpvPsO3LO RjntPyW7UsRMChvXgnRgC2 p4V8Il2Pe8IcdfraP1DewNGqAhM vWvpbDQu3Q8KxWpqmqCO+PC90YW QgXW89QXx7ZGY6hMtwWBol CDPaR9DpxI0cOdDmXMWbJOBiWox +PHRhYmxlIHdpZHRoPScxMDAlJy OziItzME3cJo6fFWHjUSLa tZvqiDVwTjXsd7lbYSUgVTmjWJ8 ivMfaG9KjoOK8VIMat4h0Rx20Y2 7aU0XsvVM+LBLljNI4jOF5 dR6iDhUqEwZ8NGdjR055EzKpaQL vKiske8pnf1frfKg5HvR0TOFtjm XruLeqAJW9i0JlLl04C69e IHdpZHRoPSIxNSUiIHZhbGlnbj0 ivG2nBr7+FFQknOT0mDC0yF2uVk TwFgZ5IOyoH564JdPcqGZj Giiol6slt7cuiDi5EyEzKAQwbbX ocBlrGRU2z6XaEc86J5HnwTqja6 OoVyz8ec45tOCyr4X8oEQ1 A8GpXJAqphzqaRGpmNnpZZ2tGKZ uxrbdOAOwaR0eYGOeC1v3DvJiOl K5CNsnZ2KaeyP5EXDmiMAj UOWqvQSZeX3qmbnwd5bhzxsdWcO lGQEhZUv6JIn9DUMltGklHtQrBO W2BqJ6ZJF0pTZgyW9ciTuo kyobfM2qRvh+CXV1qVYolSOEMS5 lOjwvdGQ+DVZxGWB8vXtgFJmpUM UbuL2mLMHhT2l2AdOiYaX1 PVwdH7WiopO7QGFhlLThLVCiqNG RdI9vbnrav6xsvluxNuAwDCZzAX w1DGt3VAUwoEgaQrCzKYO2 PbO6CSE6yWDydY5zaPmtxcvvyF5 wOyc+MzjemNtuYQP7TMi8P1CtGv c7HQMlmVgyVK0goSEkRVip Cx7ktEshlEsnWD0fPTGocpujp08 9GyGct6kuXBRkrMOcVYarOZC7V5 1dw4X5LNScPXWzFDE6rID7 rS6lbZmyoulajGYxoQlefyMzyBq qBTdjWCbuO607ZBSigBkuKpKfHJ r2R1KkRnj3UGMfwNulCT9e lLWzSKawUb6ovKhazBydFF5jULE ucaces058WzUtn0zqVHMmfDRxWK ukBPT7I62hk4A3XRKoKMGi NTE8wPP5lS3llOmiwxjsgYOzlRv yqiCvdUltNXejONokO724QKIrqU hxQuKxtHn2S7ZmPbi3EELj xMlqXT1elWXeKQvzUd8mbAfklQp zJG6zCDNnhnagb417XqVdo4ujQW UreHHaGSsqLHT6B90sk3T5 RCGeRNDaRVO8yVM7zR3fyBvjaor gbGVmdDsgdmVydGljYWwtYWxpZ2 46IHRvcDsnPlBhdGllbnQg ROnzXUv7R2IwCzdzzXV+YT93CLH dBE16gYZfdBXhq7mgkUp1YvDxQP KhBWA8uXulQDakx2EpRPCr S86trQTue4W4UYEvlHosyGGnPhF jrIC9cH8aUMlxstrgg9uybstkZh gui0wpwt60eS72H03wEXqq VSAbFVCwLAEhUGJtyWetbj2ebA8 wIi8+PNUzvFY1wHA3vU7iUACkOp M0AMtpF028McIqcZNcJysf v0vrc0oovDg3GyF1JGIjzyIovUi mXNV2y2JxAr87C10gWUfnYGZaFJ AlJRXiSXVpfQugnv0noT1d Ii8+QPJhrTS7pFG3qV8kXrOiFxY 8NAhbJ411FdRpsSSuHkfrQ51mP4 JvdXA+JLZsZan7HWMboNus OB8buEPrJLpyBz8aZLA4AfVbHvW wSYetG8ZkEGGfqvqqvkukeBB3WG DmEPIhoJ39Yf6dcZlsDOVg tIECzC6nakknx2bxugblSbGcIUD lRHb1CGe8DDPvoGhtFkLiTUB3Wu A2JAB9zQLukN6ltRfccxzq kD8qU2UsZBOaxsuvSs55sY0mZtW kRjM9UJliJhb+TVVMTEVOUywgUk YNVNTYMGMGBWmJTnF6O3Uy Arj4FZUwuDcnUE7frKEqMKyqTv1 shUkprOahZV1dGDHrehmcXMPxyO 7jJFGgwYPjzLusZE7yCZRu yqrlj399NnLfLOL8NEQzsUOgK7A mnV4jVfKvSCVaATSuW6CieQKgBZ zdS419SYoeAqN3MTNormDh J9UiTMXmjNkhJrG6q4R6Bc5vBO9 bIk7yTQn9LN22WL78aTDoe2V7vP L8X5NiRQDqkeuvsxqbxCB7 WAUfLTLrhM90qPDiJIfwOl5hk5I 1g457EZZtMTQnfK32Tp9usPcfPX SclZWHwG2rljxue6yxtgnw TrYlIYVyASy8LZx7AGHwhZbgZoP dGUI8PzI8ZYA8rBWvzJ0rqZndyb rwsV7yGto+MzcgWWVhcnM8 T0OcNxp8YVJwdUnpHD7liDAmRXm mUl8vwClgnUptJY2gHKDpjcxaLX WtjT6gVWZrxZMfuMbxQI4p RHPbsjofr057FeWmCAR0TOZkvNZ dK3YqgP4xDbDvDKBjZPKdI0RhdL VtWAhdQ950HNezYpC5MPGv ahIeP6GjTRJyjEeaSmG6q2I2Cr6 IJR9MQMU5M5UqVwl1MWGyxWzeFA 2wwHKnDTsiYb9rrWxpoVvd QH2kDSFanqodOVHjgW3tXPHelEF vpBjyUW2zNBZyahkqf671GoQwFC R4GGMcoYUnO6YinT4aRpLe WMRmVQQeC0KhvWOyQMygC856KWv lAuV4ZNYorlWhI1YmOOQonUxvGw W7u1E8Gk6MVLqtqKI+PC90 vc51D4ImKktjUun0OHYdDMF4cCD 0wF8qWULuLFznq7O1xIY7M9Igmg Qdmf2wd5bzIITgGXapR42y iUBcy8F6RUJxeAP4PDVekZjkDcC utN54Ojy+HRWwwMgza0ZaCzpce6 pav8dejFx2LrVfWSYysfJr dVohPPP8f6TqWa54M33qGGstPIJ xLYRzLZPrJTLthTafjm0lbK8cCb 8+OZQmeTM0tBD9lX8uIhAb QfW9QJkeC404JpOfuOLxFdjea5p ww8otkQr8OcNnEGCckjYdvLwbGK Z0z9HiEv32P7BbqHodr6Ed Gvl9kg20kYMaj1J8qKQ0H6GxWAP jsytipFCgwFssNY5jIRVeompkXB OenZ9wIGAwN0z4DuZxFhY7 AHbcP1BzylJ6OXZptAXwWPTbaGY FlG2yczbwj6ljoixgZsBfYYLwXP p4CQm1UDKhoOosBfJlJVB4 EwF3AXW2xWOdnJ9anJypskqdjU3 wOyc+QLp8x3hvqQOkHJ8ngOD5YM 86OS55zZMpd5W4iAY6E5Cg DJQzvqsoqhkltSD2DMKfFVCoxJ4 7Zz7ewVoyBc4lMPKjDBH3JSKaoD EeU4RluM2jYbNoQFYeKTFb P1FucFGvZLttU233PNrfLyP2GOI meqWdR9KmXPHhfHkkKsA3j5H7Lm 4HHV52ER65EA33kVBox5T2 mWI5F2FwPATzcyswiwnghQN7NMK lELHmmG55Mu5fhAoyHd7rGYQjAA Z8NKYqsRMsU9VycL0kIcUf KSDnYMTbL5ZbuGDnJInoF404JCi qSjM0VGHisrZyP2GzPGBljGokLl J0s0N6Ar5EQj35FH62XX79 jDXiq7A2ePC9V7TyJBZbhzlgkwl rnSJ0HTHmQKXvoX57He8bwVrsGl 9qSHTpHKQ9CPJbpDDlD9Ny xJ1zKzTdDWGgUTVaE2XwyTJmHXo bO820QFlgJgM2QEFvsoThJ5NxEB IahZapDbF8v8I5Ld0WPOrr sgy0E5UqNomquBH+KY36TOEsBM3 7wLTloKCvv6usePo7JaCiJHEyAO P1kRlyTLpdm2DjJGXsN15k bGF (more content not included)... [facility] Provider Orderson 02-27-2023 Provider Orders [id number] [facility] Coding Summaryon 02-26-2023 Coding Summary HTMLBase 64 BcfmyptcTBs3dYn+PGhlYWQ+PE1 BHORhQ59zaDVuvI7iS4MRRVyXKk ndVMHKYYbLFrOrqeQbVL5krYSbP XJu IC8+TN1pFWXaZtvzzXLyi2K5kYX 5F22ddv1zWDwxjWP0VNSiIbRzwd swt4rrbTl4JRvoIwvwGdYb JZNnfK69DWX6bG04Od06wBNjvIC md2lmuIc6IhWqAUFcXAJ2dBnxHM jyb7IyQMNwC08wwEShd6L5 OMJuaUbgfNGzKpFxjFS9wQ2kJAh eeymdk7pgxuzhYyo2xk76nWEvg4 I3iRU6Q5GakhD7DZHtiMPo DjvlbTRHhA6geurqw7jvdqezLpJ yNONwYAd4KPe6DTClqNrhYiXuVZ 25QKI8RWKqaqZgT9XrVTDs wLmiFeK6i9N7Dz7AP5YPWvulR6S NTUFSWTwvdGQ+NT02aw35G7BdLg kcAcc8XBMnNWP9bNH3mP7k VQFiWGvbm6Y4eZX3Q2WujvBfbb0 go9hkQCBvJFnlQ37izMGqz7G2SE CnzFR6RLNgnEdkCyTlyM73 Oyc+OALgmUgyr3MbWnkua1syv4w vhPu2IeybHJZsbeOshFujWTE2e6 WeGc3uPDVkwIU7bUF9kE5v SuYvDuX8MYkeT209TgZqlKRiNim cN87yV0FdzBF+GVXnWsn4JDTnyZ ayCY5wM9WyZRKakyqsrEKe qTrrDM0hWUTezfxyXWSvdD2qMPL tF2n9KgUtEqA9FSvaG4ImTMCzjt usFz55dL2kQaBgCsC7ACjn S3PdgwE4FNJlgZGaNYdsJVU5I56 du3W5ELJtGGWoAJL6bKZ9hE1jsX lnbjogbGVmdDsgdmVydGlj JQtrGDfnU857STLnfAluNfCkYDc uZyBEYXRlOiAgMTIvMjAvMjAyMz wvdGQ+NCAuTYA2uAirUYFe hXFcKMnxUi1oxInnlIwiED5sRXS amnkoFICbkR0iTDPsxMXxrNzkZE 0gJQQopyqdf861NbTjCXQ1 FFCtaWZwE6LchW2pAxGtDTDgOOZ yM9WwvBWjXFetS210UXueKnA4NM McdeDoK8RjQJPpsLibKwS2 v1M7Zh6Ic0WlsmcaM4VdxTAoSpL hUjooNCc0P1XwQeouyFK+PC90YW UtZO12MVe8ABW2pDeeZGbr IMUbW1LspQ6aKiFqPUYlHXQzOib +PHRhYmxlIHdpZHRoPScxMDAlJy JgfSulIG4mEx8zXYXaNWIg oWnelUZkArIej6xzWDGaVGgyZH0 csBifW0WqiOS0XRBmp2x5Vf13D0 4vM0PqzNX+TDNkaAB6aAS3 iH6aDrBaEkI1CEjyN155VhWivZU eArkdf2nqa2gmwCi8QhJ7EAZdue HbyVkpCWC4u0ZlMv14G55r IHdpZHRoPSIxNSUiIHZhbGlnbj0 rkX3qWz0+OPAioEP9sIY6aD1zUz NvOlT0JTkkI420CsMdtEEp Ewsdr1myv7dkaLz1JgRlZXXftlI deIyzYKA7y8UmPv22P9DgqEwqx0 HgZhj7cm76kWOsm1O3vLG1 U4GwAKCfkmjmaYYgqVotOM7yXEY gavftMOFouU7dNOUnW1q8YjUyYm T8NMhjJ6VetxE4RNZgdTGv EHGwkEIVkQ0lnnlgv0urzlilHhI nJMUgNTm3VRk6QJDchQqdItChOE Z5FrY4MDU1jJIklQ3wiUdm lslrvH8jXso+NDQ9uGNdtSMTFC5 lOjwvdGQ+KDChRPD8pDgzTPozDM AwjE5eXIApD3j6EqHsAhS6 USijE4BssgQ5DMLqtNRiHCVilPQ JrE0ciqjyc9sagbjyAjMiTMHeGV q1SGm0MWGjeKbpUzVkITL4 DqW5HQF5rQBghL7igZvfudescX1 wOyc+EyecrYjrDBD2DDv5H3EsYh x4CIXkwDmjXD3ijVEzMDzd Oa3kkZrmpJgbPF0zXLLmemszx94 5IfUjh7mjKOZtcMDqTLmaOAJ6H3 3ln7J9VIKjSBTuACU4aEZ5 pD7feZruuunxlFIqnRkngxFdyJi iFCeeFTfyY961IZAnsElhWrKzBG s0L8CsXgb6DZDqjJoeAZ6l kOApZJvyWx8bfRhgoDpyBC9zPLF snjxlt949VxSqh0ieCPDvkJYiAD bwLLA6B86wd7V7LYTzWBEm GOB4tDQ3hX9cvQijrjvoaEAvfBn kmwQlmJgsRDmzZRtlT202IFSkzE maLgUvaYr3H1EsOhn4EWZx wAjdBM6duDPnLLsfTb6qmHzgrTg tGT8lODLfusfge400XbEnv2wfTV PexIKyUTkrQCG5P57bv1T8 OUUnLSZsGTV0bKG2qN0plAzlqsw gbGVmdDsgdmVydGljYWwtYWxpZ2 46IHRvcDsnPlBhdGllbnQg HTxhQKy7Q8LoUzhreUX+MX92RKU dZR83wCBsdCYzq2sgmNn3VkBsNM YoVED5tTbgGXbnh6FvXWRu K69fxHLkb3J1GPLbfHvvqFWdFsX otWW9xZ5xLWnljgijl2cbbvkuRr zme7hisb68qJ21R77rVHgv XCGqQZXkQESxLQYgwNzmyk5oqM1 wIi8+HGWqfAF3rVZ4aS9uLPEzYq Q4NXwdB002XkJreUJnKqxq g6vfj0nmhTu3JvU5SPQirxLrxAv aZPB6q3HzZf81J67jNPkyDYKzUU GaZJXgCMMtwEjdqp3hfU1c Ii8+IYTwbCD0lMC0wY1qIdSzHrQ 0ICidF663OhJzpWUwNiizY04sY5 JvdXA+JKQeNjs2HYLeiOqh PK9lcGZfRKeiQc3gFMM2UsDmKdP mBLteJ5DzEUYqphxipjanpGF1DN GgSXCtuR80Ic5ycRdwYTIx dNKEoB0hgijjy5ezyvppWoUcLNE aYPr0DLe5IVAdaPhrUmNpFXD1On U5GHW6mOJcqC0lwDjwmztl zB5bY6PvPDWlfmgbTh45eA4bAgB vOtT9DWhfYhw+TVVMTEVOUywgUk VJVEJOWWPYPIdFWeI9S6Cd Mjm6FMLuoEpzWM6yjWDnDJkuRl0 onHqgkHkyBU4eFAOjjdkvJXFcjC 2kPFTcbHZwfZkuXN9zBLEd ejplr808SeXtLDW0BBJwkAUmW5R xfX1jMfCaDSNwKOCjQ7XjxHKeWA ifY565CTnrDqE1BCMfgvZk F6MlHNTeeEfiLyA5u7S2Ew1hOM7 hTa4wKCg4QE53HZ18iZEzk9Q5vK A6X0QiIJObizyqfutgsKY2 WEJmEXDvpQ02gJEcLYtyDf7uz5D 2n519XNOjUNVxeQ97Cd8adEotBL NotRVGkB3chocyu4lndczo WnMjSMDqYMg7ZYm5JGUaaNenOwC oBOF2KzB1BIU9qLVinX9hbXhyyd oduG5zWxa+MzcgWWVhcnM8 R2QhUwh5INOsaBjnCF3kfGErMYw eTo8xiDovoAtiYG0uBPXuowrkVT DaaZ2jPMJetLWwhRfdKM0z FNOexlkvh136MqHvEYL7JYIhyHC wF5UenM4gIgZyCSXcLEUaP4ZclK NjHWluM185FPdwQrS7SPHk wtQkY8ZcURMbpYwrImM7a4Z0Ox1 EAM4KMYK9F2XeKnv3LTLkuYwtBW 4zyDJdDHvbWx8huNfcmFuu YJ9cHYDandqrHWFvpZ2fYHIogDC yaParOS8dQOIsyauvf361TuKeXV T0VZMmqBUrX7YfwF6cXgPq RVRdTMJbV9CapDXwMKliI903KAc aYgC9JIAlcmWaZ5QqQYZhlZkfIb I6w6J4Fl8MVDpnoJQ+PC90 hh05F0UvMxetQsn4CWUaQLP0hEC 7eG2jCGKoDXspg3J4fXE5O4Rach Qjba4wq1vrCCPtYCdtJ54s mQPnf8G7SXUwiRG3LDZiuZnqOeR ktI76Vuj+HGVnzIqtv1QyHkcaq8 vug8jqbMl0OcMxFDOuvgDo hCbeLLH2k8ElFa28Y46xDXoiIGW uFTIqTTOcOGZqpNwbfb8cjL6tUi 8+TYWekEK8aYW3mW2tGjLc YxZ7TPdnX451EzUihQQeYcwxk5h ji8owhYk6QwKqEOAapyXelFpyAP D4h1EoTs01S4WlxPxoc7Pe Wwn2vr09lDZxn7I7nFH1L8UnLYM lnuvacIPrmDtxWP9uYCUgitguTG CwpA0bDMYeO1r2AuAdFjZ7 IDxcX3OkyzZ9HYQzhGYtQLFbwXL FlE3tuyhdd1duoywwQkPmIKBkXN k8ZOh3ZQZttHrlPmDzMCP1 FfI1SDG4vWZzyU8ilPnhrnyvkS5 wOyc+USo8e1izoLHjXO8dyMX3QQ 82WH48vWFrp9J1cUW3M8Kq KMAlxjbrdjcntON5LAHpLLWhoO5 0Oa3mzXgfFk0cIUYvFEG6LKIrzD AsB8XooB2oDtAqWGWxIZZs C4NcxEKrQHeuO038VQbnFtU7VWO upsCuR1SiJKHfaMtpOxK3x2G0Au 9KTP42ZL12PE47pUUmb8D7 eZG3P3VySLBvstuhnyzatNP1YLC eCVEqnD53Ns2beAvqKk7mGJIsSR T2NYQitTFzO3FwkI8tOaFq BPDqJHHqS0JzsYEhKXsiF345TKy hYmO8TYClfjBtW9SzFLWuiVjkYl F4p7P5Aw3ZDt77OH61RC11 nVUex9A8yHO6S2MsTSKodrywvza wfGU7OJGaMIOmdF37Gk5xzDedNi 5yEWMjLWV3XYVhiGWbL7Wd yC6wIfOqVSYlGDOkR3KnjGXrYPl iD361VUvvAeB4QQYrsjCaD1JhOK EitUjfMeR5f4E6Aq1QSCum coi2I3EzItkrsAB+IL94YHJyIE6 2xLUsaEVae6olkGi4TtCcZGIkVW U1sMzlOYhfh9MnPLMtZ29p bGF (more content not included)... [facility] Coding Summaryon 02-19-2023 Coding Summary HTMLBase 64 YiilcupyIGc6wWe+PGhlYWQ+PE1 QSURsM71ueSKfhZ1cF9RCCEaNNv nlZIQTNSsSDfFdwuOnND7iuZZvY XJu IC8+CH0aGKBpXoigiLJcx0K1nAB 0W21prs1kQVwtjMN9NBGaNoJiww qfg8fcqUi8YBqnLltzQfTo COWoiU38RBT3mU64Jx10fJRvoIH ns6onlLg2YqJkBDZeBOG2pBymRT bsa2PtURShD19xrANxw5R2 VBFpsFxjrBCsDfNopEC7iB5wVJh olzgaq6zafchrYvr0kq94cBExc6 I8rHH7E0KcrlV6UBUoqBSu VinbhVTPuL8yzuikt7xaptijJqQ wZEFxDLx0QWm4DJRxuQdcRqWjQE 63GKX7ELEgskDdD9DpOEMe yMslZzZ7l5I4Af7CZ9LIXzldB7N NTUFSWTwvdGQ+PT02fo80F6KxEr rmAyy7GBKsWQS0xUJ5zZ0s YKWfIYwfb2F1tZJ3D7SblyOyro0 ij3ohNNMvAFbmY13wkWMzd2B1ST FmfAX5ICMdhYloBmFlnO66 Oyc+AYGnhQyrl7BcYjfwu4eva2d ffNg8VdriWJVcvqFqiRvjLGL2z8 KdKj0yUSQnqEH8qPI7kG1q QxGaZmT8LWcxR338RtNhaBGzVfr rU45qN5FceJM+CYKhXfb5BCDrjG nzIN1eT0WxXESvvbuhkGBh zPejCP8eZAWtsscvBZNymJ1gHRU cA1y4YlFjNeI0JZovP8VpPSEoxl vtWk33yB1lNlWlVyC7HYsx I3RuyzW5EFEsyVHoRHteEVZ9H35 fq5B9UGHeDVQiPAN4eFH9yQ0hsI lnbjogbGVmdDsgdmVydGlj EAmcEEzpO126SDWcuGfdGxNxXNx uZyBEYXRlOiAgMTIvMTMvMjAyMz wvdGQ+DRFrPQA7jHkwBSLe uDGsZRchSs5znJimnBhyGV0vILI mqrovXBWivB3dGEXjoUStaGmqYH 9qJTOwkygaj658FuOfEWI1 CGIlhNXvX6RwsO6rGjGeUONcGOR qY4QiqPEwQDyjV584CAcdWzY9VI QlhzLsP2UlJXUfwJyaSxA8 n1A7Xt3Dk8YbmwcgF2YozCVjJmE fDzrfKYr5D0AeCwldjXO+PC90YW AhGJ20JNb2TFW8aNsoCFjr ZTVdM2LxsD3mJcCcMRLjUQRcWdg +PHRhYmxlIHdpZHRoPScxMDAlJy GpeJwhYQ6vDx5oJWSfRVEq rKhajVDjHfFjn1abRTZsHLjbQS5 wdZdeB7PtrNB4FYIze6z8Qr85I8 4zD2BzmKY+TQWpmTR5dBB7 oX5zRnTaZgE1WQhmU708GkPkjBK rWigol9cuz2xglUd9IkW2TOLvfr CdrZzdRLN5d5OcSn90N36f IHdpZHRoPSIxNSUiIHZhbGlnbj0 pfQ7jKf7+QACdoAT6uTZ4hK2vAg FzOqP5GWxsW944VnLmpAVm Alzci9hro2qkpFc7LdRmEBUmykU qhFfuYTF9b7QfYo68Z7SxwDrdg5 MyImg4bw32vCGch3W9nKG5 Z8QkEVCicxjmbYDdfDyaSZ1mYVZ ngulxSXUccU5rWMZgH4l2RiUdZn L2OGuvZ2XnhwW3UWXenMLv JMDbxYGHlX6ghobxd3emnwyzVwR zFIPnOCv4YBo7WZMsiAupZvGmZH W0AiT4KCX5fJRokV2srTtx luxklA9lDqc+RUU7jCCcnBKXWC8 lOjwvdGQ+ZCUuBRI8hCsxBUtqPX FedW5jMCTdJ7l5SbLcBrL7 WAjmG4LzwlV9HZRpxKNcOSBnzHX YxY3fxgsis3onwjupAgKsOYYcOX a4HMe2ACRspFovXzOzCWN4 BhR6KQT1qHKcqD5pzCxbklazpI8 wOyc+UhhscObpWTE6EHp2D3FpGh d0UYYveXtgMK7ejEXkWHak Io2tzDwafNhjZS4rCVPcqttki14 0UwIbc8ktPURgpHMsUKmvVPL9K0 9nd0P8ONSqXZGeTID4oMQ3 sW0zwQqucchjnYMzeFkdrhTjpNg tUJkkXXdhC949GOGzaJppJlSsSS d0H1DvQgb9PNPeaQzuCI5g dYIiGTkuAl4oxUihrXnoOI6yFNE fdtdyt342RhFwb0hzALOblINyUJ viTQP3A79wg8S8EWDmSPOk HTQ6rGD4iN3iyZistkejcFCmyYu vniTlkOkhTGhsXAkfM291GXBaaF ohVjAxmJl2C4CeDcv3UUQg wApeTN0lhJQxVMacZi3glRmqiZv qSM0oJXSyytrwe907QlTye6kuYS BlkRPjYSqcHZM4Y29vo7T1 BXKdDNAsFJU2xMU2zW9ryQmjezw gbGVmdDsgdmVydGljYWwtYWxpZ2 46IHRvcDsnPlBhdGllbnQg RDuoTHw7C7LpUyxvmPP+TY95GLO cLX60yADlwGClq4xslWi5WvYmBD JjHHS0pHdaMLcbc8VwGDYn G25fsRMfi9B1KMEdrCoirGRwNkY zfZM2zI6yVIoblmhpg8kbewuyAw nwm2voos65lL94M98qZCbf BBUoHGGsHNRbMEJqbVdlwj7nfO0 wIi8+NRCxcEV1iDP0cJ0oFVNmMn N8WKxlH318BdCyuYCsJisf p5cxe0iohTn9HvZ0NDJocyAyyRy cHFZ3s5WgPg98F37mYCntWBZjCY WsMQOmRFYyuDldiz3fvI3t Ii8+FKMkjDR6jDD8qX7mWbLrXbP 5VFglM952AsOnoFEvXjkcM03vB7 JvdXA+LFKcMxl5AVLelErl RM1hsSVqCWinGj4wLPM4MbRjKfQ tVKufT4ZdITXigbmgfpjjlAN7LS CzFGTvwJ52Lp3laZoeAYMc aCDLbF3qprini6fxiuiwTtBtJXE uLRu0OQn6USUecQwlXyBtNJK4Gl E6NWL6zOLbbV3pgVvgxhzr rR2xJ6MiSGZbaqxwSp32wO6eXqV dCvR5AUzxHki+TVVMTEVOUywgUk WLKYNONLZFYGkRAiD3D1Wn Klz1YMQmuHisGV2hnQQiGTwyPq0 gfDlytHziAI6iOVQnsvczGRModM 7nYKDlmOJhnHtaNQ2kSYVy mzaok201AgKoLQA4IPJwwUBvB2Z ujA1vTcDmRHEyXGPaX3BsbRIbNQ mbB956JTsgKrM8JIDsveJa T2QuYDHzdWndMeF7r2N5Zh1uHQ5 fTm4cTUs8LD20HJ75cFZle3F5bK A3Q4EkSTErecjywaubjUM7 MNSvXAYsvX92eCUoIFauRd1rx5V 5u622KXKoIQSclE92Zy5meXleHB TunUONdV9ilvlji5idpryx UjSrOSNiOYy8ZOu2XGBtvGntJdT pRLU5WeE5RZS5mVBzcN1psUinbd tryN3wSpt+MzcgWWVhcnM8 V4QaFgk0HXQbtKkdZT4imZHrRXy eLc9mrJoaiOifSU7pQTZiopnwKX VrnR1bZKGwlWOwkVbfZX1x LLHedcqcu628HhYmENH5IUDbqGE zY6OvmK6aNsUzQVXbFOOlF6SvzR XnBYobS998NSyhVoD3KPLe sgNhM0AkSIPoqQmyBjJ6i6N9Pw7 QGC7HITP0S3ZpIkz5ENDgsTlfMO 9qwMVnFTkpGh9ooGhxhPlh ZG4tDOYuozrnXEKxbB5wAYVldPO vcXsaGK6rSPJnnztjo211BpOpEW D9EHTmyFEbN6DzmE0fGpWb QWQeUOVoX8SpuEBdYZzjO754EBk sRbY6TXUhvlWbR3OhLMVdzXgoEm U3z4F0Gy1FWYO7poRecjpu V3W6jHB0lYMkjQndnBE+AD71hg3 8B9McYoafPxm4SCIdBTV1cBJ2rZ 8mYWMlGVrcx7W5gKS8Q6Tt kkLatl8xm2ixJVOxXQneP80vqME bq8J5OPWixLW3PPSouXyqChLtyW 93Oyc+OJUleJcbq9WvIjfc e4uzi9dzmFo4HoWbJOCxvwBhpFi iOSE0y9DrAw76I59bMSnuYRZcIR HaCJJeSQPvrVujyu0hcO2d Ii8+VCQowFJ1eLF6sY5uYqZkPgS 2PElnD878MaOffMYkTjble3cby4 evdTw6SfJnSNWftnMvzEms ZWD3t8XoAl42F1MrkGvkd2VvXqk 8bk86oCWdl0D3rIT2T9OfMROsbp fwtAJatCjnGO2tCFUkbwiy ZLBkzE5nEKXbM0t7ZmRlYrP2IIu rE5OwkyN3RREzmFCiXZNkcYQTsE 2ewhidg4emqcvaPqPbMSFr MLq1HKd4KGAngLfcCxNkXCP9VhW 0HXE0xHOlrK1tkAktumreuN7uEm c+FWy9y9auaNYqSG6hbJM4 WY05EX29sDPgx4P8vBA5L5TrXCK cccxtrnuouTT2SCHlLNTjzG97Lg 6thJwfKy4zKOBxRXI6ASAh rCAsI5WrrM8hDnTfFSZmQDLkP3H tpNHfNTceR004ODuqBgM7XTZyon TxG1DwYHEqmRfcQvV1h6F5 Uk3FNI33RV89IB68mLVlo3A5cOJ 8W2YpSTLftcdeaozwnGE9SHAiKQ OoqJ54Os3yuRnsAa6mZCSv UUT9EDGvaCPmS3UoaN6iZtSmZHL sPDBtU1QwpLIkNBtuJ999SPkzFr W4ROKymoZfI7TvXLNkqPxb GgZ2k5F9No8FLe83AB51BR85zYD mi5J0iLS9Z6LkSYTygqvieyofnK R5VUNiWYTwcR41Xw7zyFzb Qh9uGNVmDPC9UZYzxDYnW0RwjN4 rIrHpOZYlPLPqK2AxjNHvQNaiI7 11JFgwFnP5SVSsjwAwQ0Pa ARCquDmiCsL0b6B1Pg9DGFvkaxd 6M5KnQttcbOM+FW84TDPxOO04kR YfnANpq1rizMp7CuGgTDYv IHN (more content not included)... Normal [facility] ED Clinical Summaryon 2022 ED Clinical Summary [facility] ? Urgent Care [address] [place], [place] [id number] Clinical Summary PERSON INFORMATION Name: MICHAEL RAMON Age: 37 Years Sex: FEMALE : 1985 MRN: Acct#: Visit Reason: Medical screening exam; [facility] F/U - RIGHT FOOT INJURY Arrival: 02/19/2023 12:55:41 Discharge: 02/19/2023 13:43:00 LOS: 000 00:48 Check In: 02/19/2023 12:55:41 Checkout: 02/19/2023 13:43:00 Address: [address] [place] [id number] PCP: Thu Baldwin DO PROVIDER INFORMATION Provider Role Assigned Unassigned Mati Bell PA-C ED PA 02/19/2023 13:00:25 DannaValerie terrazas TELMA ED Nurse 02/19/2023 13:03:24 VITALS INFORMATION Vital [...] verbalizes understanding of instructions given Comment: Normal [facility] ED Patient Summaryon 023 ED Patient Summary [facility] ? Urgent Care [address] [place] [id number] PATIENT DISCHARGE INSTRUCTIONS Patient Information Name: MICHAEL RAMON Age: 37 Years Date of : 1985 Reason For Visit: Medical screening exam; [facility] F/U - RIGHT FOOT INJURY Arrival Time: 02/19/2023 12:55:41 Primary Care Physician: Thu Baldwin DO Attending Physician: Mati Bell PA-C Comment: Patient Education With: Address: When: Return to this practice Comments: Apr 24 at NOON Medication Information: The exam and treatment you received today in the [facility] Emergency Department were for an urgent problem and are not intended as complete care. It is important for you to follow up with a doctor, nurse practitioner, or physician?s doctor's assistant for ongoing care. If your symptoms [...] so we can reach you if necessary. [facility] Emergency Department has provided you with a complete list of medications post discharge. Please inform your physician primary care sports medicine/provider of your visit and for further instruction [...] (S90.31XA) Hallux rigidus (M20.20) Medical screening exam ([id number]) If you received any narcotics, sedation, or [...] documents Reason for Visit: Medical Screening Exam. [facility] F/U. Allergies: Substance Reaction Symptoms Type [...] how to (more content not included)... Normal [facility] Urgent Care Note- Provideron 02-19-2023 Urgent Care Note- Provider Patient: MICHAEL RAMON Age: 37 years Sex: FEMALE : 1985 Associated Diagnoses: Contusion of right foot; Hallux rigidus Author: Mati Bell PA-C Basic Information Additional information: Chief Complaint from Nursing Triage Note : Chief Complaint 02/19/2023 13:13 EST Chief Complaint Medical Screening Exam. [facility] F/U. . History of Present Illness OCCUPATIONAL HEALTH FOLLOW-UP Date of injury: 08/26/2019 Claim #: [id number] Employer: [employer] Mechanism of Injury: She was moving boxes of [employer] when one fell onto the top of her right foot. 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 On 08/26/19 she was moving boxes of celery when a box fell off of the cart and landed on the top of her right foot. She was initially on light duty per Alfred's telehealth visit. When she was not getting [...] History Medical history: Resolved Lower back pain ([id number]): Resolved.. Surgical history: Lumbar epidural steroid injection ([id number]) on more content not included)... Normal [facility] Urgent Care [place] 023 Urgent Care Record [facility] ? Urgent Care [address] [place] [address] PATIENT DISCHARGE INSTRUCTIONS Patient Information Name: MICHAEL RAMON Age: 37 Years Date of : 1985 Reason For Visit: Medical screening exam; [facility] F/U - RIGHT FOOT INJURY Arrival Time: 02/19/2023 12:55:41 Primary Care Physician: Thu Baldwin DO Attending Physician: Mati Bell PA-C Comment: Visit Diagnosis: Diagnoses This Visit Contusion of right foot (S90.31XA) Hallux rigidus (M20.20) Medical screening exam ([id number]) If you received any narcotics, sedation, or [...] and treatment you received today in the [facility] Urgent Care were for an urgent problem and are not intended as complete care. It is important for you to follow up with a doctor, nurse practitioner, or physician?s doctor's assistant for ongoing care. If your symptoms [...] so we can reach you if necessary. [facility] Urgent Care has provided you with a complete list of medications post discharge. Please inform your physician primary care sports medicine/provider of your visit and for further instruction [...] NO Strep Throat (more content not included)... [facility] Coding Summaryon 01-28-2023 Coding Summary HTMLBase 64 JeugyyscXPx8bTe+PGhlYWQ+PE1 KIWBiT05ruBEmzM9dR7PGPJvQTm moQZAHXRkWYxDefzLjMG2nhJLeO XJu IC8+CE1dYVYoDqogxYBhs7G9jKA 0O99uqv3gWUfqjYS9UNUhKkKxqo rtf9unpEn8JUopPosqPsWb AEWprN17UCC4eI77Vn13kOOnyDR ic2hpfMm1NrAbHWLgMGY9mJxuIK gqn8FrAZMeF99nzHBjp9L8 VSZmlSrmyZHfLtWwpPD7eH7aISv whyoea4vtzuijPgk7yh33oTTtq6 U8pLU4Q3ZacmF5VIAkhBUj YyyxoWORqU6axtdib0urahnyHbT kQIDoFLw4RWc3UGQheJgaLlOyTX 06PIU2LHQlqvGjP7PkFFQi gVrcXiC7i3K1Tt5OJ5NXPgklQ0W NTUFSWTwvdGQ+EH88df52S1AbRi vqJwq8HDRdJTJ3oWR4eT7y JYLpBToum7X6bZR5M2ZahnNnsu0 rp8afIPQnEKciS61lfRDkn9B5AJ AupRV6TRRjkDfyGkAufT92 Oyc+YNIhbMynw5RxDypay2oto2l khEe3NhukXIGwpzKwmAyeZOF7t5 DqGm0kBEXzsSV6tIT5uR8j ZrWrOsW2WZuzO500VwQqfVRoNhh tH69xR7MwoWI+XSXaAbm2RLArqF flBQ5tT0IgTGDjvfvarSSp qAvvIG9sSGInnhikWWXqtE4zCCV wV9q4CiQlWbS3JAjtP7FhUEGlnc xmJk21kV1tVzGzPsX1RRrm X0XdujQ6GRNumIXeEQjlCXD5O29 du5S1WFWzOMOjSAY4gZG0vL9csI lnbjogbGVmdDsgdmVydGlj BXutYMejY073ZCRoeFuaRnFnALy uZyBEYXRlOiAgMTEvMjEvMjAyMz wvdGQ+ZRRgLHC8eGuxHNAu oBYhKOgoYb5seCywzYdfMC5nYPG oojysXWFudI3bWDImgKIpkNvfHM 3jZWIbvqcoo452RuPqZNT9 BEXhaHMpV7LmoR1pXqLlGHKdAVO wI3KglXZaBIuzI731SAuwCbE6HQ MfzyInI1ZdJIFbkOsfVhV8 g6B1Uf6Fq6QoldyxJ4SsjDZeNyB gTokgTVm7C6JhGkpouTG+PC90YW YtTT18MTl3CDY4pRbgFVxc DSRaE0LppZ5lPoShVRJdTYVbDpo +PHRhYmxlIHdpZHRoPScxMDAlJy OgmIqrIF4wKb1jBCJrDTBg lTqmzUBbPxWaj8ojQXEgVYgyIW7 jdNksK1UspOH2ZMUjo4g6Iw51J0 1xB2FjuDO+TASlwTI5gOQ1 eV6gLvLpLvW5WMsbS975LjLypYA hHyvzt9ylb2pxpNp1BkQ1XLSebb VsqAgpJPD1b3ZqQm67V40s IHdpZHRoPSIxNSUiIHZhbGlnbj0 umL3xSu2+HFTfmBZ7eSG9wT3aWj WsIhK8LMzjS606UaKnrXMr Arqfy5czu7asjJl6SeAnOGLqxmQ aqOlsMBA0j5MxKu54W8JnsWgdz9 OoGeh7ff87pTSxn1L6tTR1 B6DvJGYisragzXKqaCwoNK0nKVX wbursGCKwkZ2dOPLoB6u8TvVzFi C8LRoaR0YmkfL9LFYtyBVj UOAieQAHpT0aucfqn4mehjhaUmN kXDDeLUm7TMa5HCUslRpfKtAeRF A5MfK1TKW8cJTynK5eiTjb etyblQ8cBbd+QJC5oMSwyNYTRD6 lOjwvdGQ+EGUqGWY9cLgtIFmgVJ LwwI4gBMEyC5m7DhXhLoP3 WWncK1GqhbC1GDUnvGPzRIXnoVV AfL2fvzhyr4lrkrlrJzBtBZNiDG n3XFu0HSCjgKywEaLhBCK6 YcB0XJR4fJKhbT9coXbasqyaxH5 wOyc+QpxzrPkzMPG6TCo3C9EyNd h3QHXthAjrYI7wxWHyBWdy Ld1frPoweShnQK6aFMMxfxixw50 8PqBjb6lkBYZxgVPaZSbbBPY2G8 6uv8L0NFRmTXPlQRM5uZW8 zU6abFagibpzrOLfxUbpsbKvwPa yLMdxTSggK552CMMsdPguMaMuME g8E4FpGrv7MKFscNbfEO1h yGOfIRjdYm9ydZrkbSezRE7oSFL hlpgbe743AbKjw1yqKYSmiMQyRM qsRDE5D17em8I3VRCvPMAo UIW4jMT4tN3kzPirsmizlZKiuSn grcHhwBwkYDxiGIemV993NTPbtH rzXrFynLf7P7KbIae6CHIi hFnlYQ2neTBqYNqnVf5qpOsoeJe oQV6mFOBassasy370AbEdi1eqHV HlxGKiXPqiJZM8R11gh4L7 RSUaCEKqXUV2rNS0gB7xiDrzkso gbGVmdDsgdmVydGljYWwtYWxpZ2 46IHRvcDsnPlBhdGllbnQg ZAlvLZz5R1QjKepceTE+CF03FEY vXT54fGHzdOHic0hfnHa9HeAfJV PtKFN1rUpjMCuop3BlFIDy H12ayJXcm8N8RUDwgBermZXsDiA hhXA2bB3qKAvsdousm1bpvbdrHn yab2fjpa19uC70X66xPRqd OKDsXWEbJOJpXOSslWqjii9yaO9 wIi8+UYXphQE4cNZ6bF4oIKExYl E8VBymA214FcOimODjKaas j9lvx2odyRz5OuJ9IPVngrWyjYb hVXU5r9FaGb60E89vIOsgEYYnBH WcYPWuUDWrqOsoth6diN3o Ii8+KDGkkNX9mIW5iM6aReYpZwR 1OLksT140TsEjgDIaZftgF88vK9 JvdXA+DVRwYtj5JKEoaIdg WV5crCHnEBzqYz7jMJK2IiSkMkG sMGxxY9GaFYZvvudcswebrJU6YW EyLHEilM59Co7ibGpmVNFw sQAKnW1cxmtff4arfkgjAaWnPLP eIEc0VDv1KTLapLxsHyMbGOL8Oi D3ZAA9oDOjzB3utJhopjjg gJ3gW5HsNTKrtdcyRv34eQ7rHuQ pJpA8RNlgWee+TVVMTEVOUywgUk CZNOILZKKYASfGByW8W8Or Vvy4AKNevRbpEL0zrIYnLNkuAk3 qoGwpnZzeMI0cNRRrecvoFTVgmL 3qZYMzaMSekPvpLL3iTPGv ndyoi025KeUrQZX8ZYFscPLdF2G wpB4yRmVqCQUnXIYgY1HsdTUmFC igU656VEcnWvI1PYGkkePf V5EgBSPzcKgiVtL4s5R5Fr8hYQ8 cXk5gINu8YT71FX91yQUji6X6pW B3L9QtKPMxykyujayryNQ6 QYSoVIUwnE87mLGkVLiaRx4jt7D 0n998NUUbFZQigE80Rj4lpTkzEI RxtYUPdW0rruzzx0nnqfdo QwZxUXGdNJa5SVm0RBJacUsuVaD sEUN4NcB0BQZ1rOYzzG5faWfzms rhdX4jZeu+MzcgWWVhcnM8 Y0QbTae4CYBcaYqvTB1uiLRcEEu vJo7ybRdrjVlkKJ1iECCbiexbXE EcmR9wNBKupEHitHjfXT1l MSCgxbhdr788YyUqCHU2BJFcoAD bP2BilD4tIwVwFANyIZVqW3VeyK HzNGqmX597ZUxgJhY6RYEb uaPwP9QdWCUhyHmfKiJ2r8L1Hf1 KRO6PMCP8B6OgIfe3FYScuGwbNJ 5mmWOwUNrdBg8hlEjgsYlj ML5nWQYihnjcKVTorO6jGCSmqRU kcRssWY0ySAUslvhlj121MbVmCT J9KGYenCHzL8DgaN2cNmUs DWAcAXKbR1WyvMPpAKhuK370KMc uCdG3FQHadzTjI3MhMIKrrFklNg P4n3C9Zx7EJJupwID+PC90 bb23L0LtWpxjThg0CTDhAFN2gKR 7pO3iQMHiXPskb2P2xBA6E9Euku Lmsg0ib5nwEYRkNRlhI75p hDLib8Y7BITqsYB5NGRkaTmdNbC tqB32Vsb+HAHofJlrp7TkUrlrb6 qlo2vacKr5KxZpYSMeodSz pXldTVW2r3AfVj16I15qMDaqZFR iOAYdDCOpDMKkjVqoai3ieV0mCe 8+RFRqeHY1wRA7rG2zXuGp QhQ9WDdnB134KfNwpSQlTyozn3s hd3fqvZh5YaIxWZUhcnDybGecHC Y0o5NyXx87C1SroAlup2Dc Cdh4kc19sRSfe7Z9hDM7R7RdAFC pmsyuyIZdvHdqJC4dIMHvctpoKI UlrY9gSTZdX7c4FgKcBaY4 WNonW8JeimW8QWByyAXyICQrqSQ VpB9ejdcvl1quutvfVvXbKFZvCI a5CZc7OTDqjJatTtOcCGN5 SvM6OPF4pZNrqR7jvFdjpycmuZ2 wOyc+QYg3l0wuiCCjEW3gvPF5MC 66EO90pFUjv5H0oBZ7M2Mz CREiegernxbumOH8HZOoFNGmqE6 6Ee1icSihAw9pBENkVPV0NAAutM GnF1OzcO2iSrJvNWIrNFWt O0HwsDVdXHssV390GOjiAfI4XTN lukWeI6FhUBRjcTdzSwN2f7R9Zp 1BAY24NZ62YU90gLXkt3U0 sDV9Y1IoKJLiarshyquxoKW3VCP dKWOqrP67Uk9xbKapGs6vUWOyKT W6KEWdaOWkL3RnmA9mWtPc CIIlDKNtC9IejOYvWJuuW550OLb sPuJ4IYWoilSfS7GlKVUehYwgHj I0v8T5Yc9LMv58XT15GR69 vOKdt6R7nCU8V3CbJEWbnnjpwqq gqOR1BTRfUEIucW07Kj9guJtaIi 1uJMVdERA7NJWceYEhW0Fe kT9yJuLeKWDcITJnS4OkqJIcZXp yC091NSbzDzZ4CANiiuMkL0JyXI OqzBakSkK2y8U6Zr2UVLhn ocs0R1TzNuxcmFB+HR01ONYuEX6 1yCPczZUci6jcoKr0OjWxULXvJY U5qLdnXFxig2UcEFSvP16g bGF (more content not included)... [facility] Coding Summary HTMLBase 64 NpdvrzhlYVi9mOh+PGhlYWQ+PE1 HKNUnH73meWYtvT6vO7BIOIeLPs wiNESBNPpGVbQvccIbTP8eeBCyE XJu IC8+NQ6vRENoTzyqvQIfo4U9dFI 7F30wik1iITttzAZ9MHXkCpZehc tug4ezyIu7TRjiGskcNeQc KWErkT73NDK4gP56Xq03jPGjbCV wz3ffkQr8OxKzAQRwZQV3bCmiGR jgu2RvEPWxC86qhBSbr7L5 LDAshZklbULsQvIyqKF5xD4hWEc stagxv5wgsrgyUby2ts51oPVkn3 G8kYZ3U1KgqpR5XYXowTZp NbtdwMHTnG8ireyug0thilkkVoH iHOQeWMa5TGp9FCHxzEoiRoSfMZ 95MVE7UENazfQcP2KuUZKq lTsuZrB8v8U9Ou4VX5NJMibzB3H NTUFSWTwvdGQ+CF24tu51F3PtTw qoVzd1BJUiFDJ8kQW2pC4n XXFfJZyav3H7eMY5I9MjxqAttp9 ro8hyPAUpYNtmG19fwBMrb1M0HF MnbCY1EPXmnPjkHxFewM80 Oyc+NOBzmQsqw3ZsOmoze7vxy4h beQi4CmqpJQLqxpBaqEayYOT0m5 BvKi7tACFjbST0eZQ4fS8l WcIaDdZ1YHfqX340RfFcwGOzGma qQ00gN2QgtRL+JLSzWvd1LFHulL xfYM8oV7GwIKHltuqwlTTz fJwsBI6pHHEeagboMUYqlK7qBOK wZ3c8LpKwMuZ9CXmxR1BtXFVgwc guNv93lX2dYqRjOcD7SNet I1FmcoN7ATHyiOVcAGtfFLZ9L16 mv5V2LTUoCRFaLMG7iFL7xA9szI lnbjogbGVmdDsgdmVydGlj AYbrKPbvM329LGUwyEygUfEoFJx uZyBEYXRlOiAgMTEvMjEvMjAyMz wvdGQ+GIHpXTA2xXosTVNp xFJlBYvkDn6pyLgncBknGV7wNQQ nmojpISBupV0wDWNnfAXzxOgtKE 5gWHPodrieq764NwXuRSP8 JDGbvFLkY1SgjL6zDuSaWOCfUEV zL0HydNKjQFvsR567IXsuXiN5OH IscsOuD9FaZIBtqCkhOnV3 r6B2Tr8Yl6TmmvjbH0WabVBrPtA pTnryHQe2O4HpFlzvjFL+PC90YW XgGJ47AMu8NFF0xVczCCmt EBHiN8TqmH0kMaHbFBJnEYFbDqu +PHRhYmxlIHdpZHRoPScxMDAlJy TfzIhcIF2bVz8pBRCvHGLh iKuunEPqPtMzy8fhDADeGBizBU7 tpQruD1MxnRU2GUBnr4q9Ht24F1 7oW4TaqHL+VVAgtRW0sZH3 dR6jGzExSrF6NTsxO757KnYqoNQ nDsfaq7udz0crxPq8NlQ7JRIhhu JcuXqjUGR1r3BlSb32R72i IHdpZHRoPSIxNSUiIHZhbGlnbj0 tlR7rWp0+ELMnrBM9mHN9yI1lKq FgSoE9XMpqU629OhHzmWTx Nxhqk2cvs1jjyTt5DfJzPNGcpyZ mqBvlBUX5c9UuWv65L1JbeGsaq2 DcRxk7ad29cXLbn4G9jHZ4 T7BjXXTogssseEThyVvtUF4oUXL tlopyLXCnuH2pOXKzD1q6FmYoAz P8PGkqS4BufhH1ITUqaLHm PSIhmBUXiG8ymnjpl7fbsioeAnU qYVVbHIq3HXf4ZCClqYmoPgMrAM L5MkJ6EIG5dOAjuW5kqLxi cozewV1tOka+RTR6hLMhuJSCPQ6 lOjwvdGQ+IDAvJVJ1xEesVGxkGE CmwH3gQRRzE0f7VwXoExU0 XKsqA2ZlqwA3MUHqjKHyWGEovXJ NtP3tefwlz6gxutopWxDuVOEhCQ a4DUf4ZHKsaGgvLaJjBBD2 MiM5WMD8zJVmoU3evIpckxvokR9 wOyc+UggxtKpdSTS0LOz7N4MsWh c1GXFnlXwvPD7fqTVjKTwh Cu5jwEekwSmmYU9bZGYnzwful59 3NuEoz4ctDQBvjUYdWYynACM5Y1 2qg9Q7CPCnIHSeZDD1hKK7 lI2olVhiydigjORggLkqpvTakSd eQOvgASsrT743VLHfzNwwYdCjDI n0F3SiCuj7SDCexIbcPI5n lTIqRMlbHh5isJqmmRbuWH2vIBA sqlbex912QhEhy6teEYSznJJvJP wyRHM6X96rt3R0RSKhAQFt OQV2qLX1aD7deUtyhkupmBKgqVu olcOdwUdvQFypZZqsO036VNUwhF xgBsKrwGy8P6GmJfe2GSTj sWnfKP8qzIFuMDpsJa5aaRkuqKm fJI1dWWKjedunh193UwJbg0flJT ThfFChZUpxZDL8G19wu4J5 GKOtFYSfIYG2vDT2wI3jcOrutrz gbGVmdDsgdmVydGljYWwtYWxpZ2 46IHRvcDsnPlBhdGllbnQg HSchBDs5J1GoGwvjoRI+XN93YAC vAN88yDPcoMJtu7bgyTz8DxWrSF IkWGX9gTneQYvcp4KxVGPo Z95fgGNvt9K3XRDqkOfkrTPmJyK ybZX5nL9iUCmtahtfu2vkdjpySe ham2etpr47pZ91B13oBDdc KJHoHGQdBLHqUJFixWzrym0mwU1 wIi8+CVMqlZL2pEM9cM9gKMJcKi T2PLcmX337ThBjkQYuNwjw r2wds2juiJf2SaW1ZKRznhVghVc cGYZ1m0HvOj35T03dSIeyPAXtFK BeNTPoMJGyjJycgi2adS1d Ii8+JRNdiAH1dBP4hY8xGiQzJgM 9WPetG174JuItiOHvZbjzJ53pE9 JvdXA+NNOdAta4SNJmvCzk UE3lgWChORftBy0hNIG8OpGfLtF fLRymL2BiCTLspuavmheumCU7LA LfDNEfmH03Ay1laBxyRKPo oXQToC3oewhnp4ecdhzaIpHfWWH rGAt1CSz1WWAmeIwaGaCfBCM5Mx A3KPC7tITkjA7pmAuiqqju jL4xV3IrSBJbjbunWf55cB9oSoK yVkR7WFnrTzu+TVVMTEVOUywgUk HFGETUBIBATSyBHjS6M9Pb Cqn9RDPjeUybQJ2ibNZlHEhbVi8 gbDkwoDlySR6sLUHfmdyyVEMrmB 0mRVFxbPSapByxYM8aNVNc uyguj991IfKoVVP1ESHawQHpZ7D toD5bFeXbWJRkPQRaV8BbcUThQK irC199XCfzXsM3UIImqrLp J3ZbDUQhdFbvHcQ0f1B8Nd5qED9 nJf8fPNs8AM55AQ88wZPyw5C0nC V9R1SdEWEvglggszlaxXQ6 GETqAUTkwU33gPRxNYcvNd2km1O 8s903UMJtBFZewZ36Jt5xxCjgLN JvqROGqU2pbjvoo4gfymzs FkUmOXBeMKv3SEk6JEInkTbuDbR qQCI6QuM8COF9tOHaqF9gvSdabw laqD2oRkl+MzcgWWVhcnM8 Z1JhPqv8CJGzrHshHM5ibABsJZj cBt7sxCeamOynVU4zJZGiepxcFD BilP5aMOCavCHhtYdkJC9g SORjlvlpi640DqHuKKM5HAUdnBT jF0MetR0kOkHzQALlNOKaR3QkcF ZvPAcgQ383XLvrIyX9LZDb bxHnH8GyZNTdpWwwJpZ1z3U0Pq4 EFS5RSWH8U8WdVhp5UUYpdNbaDK 7pvHUwQOdeLv1jnHjrdQyy IS3tGKOyieonDWQcmD8jXXBilSC ufEaiWF1pIUIyafedn136UoOsBQ N0YEFcmTBkU4SbvD0oFkAh IVBgBLHcV6ExxLUsDDvsE769QCj fOjY5XAPatiNsT4BvEIAieEohNz T6m2S5Ra7RLLojG3WiQ1Jc eTwvdGQ+NU41fc95C6MlScprTxe 9CWGaDAE2hJW3rX0lGUWuLQelp8 L7fBO9X3OaxyLrcz6ja8dy YNWyLFouO52xdZOrv6C6VOCgkSM 9CXUtjFvtGgRxqX84Hqw+PGNvbG mgw6TcHyzlf0jbc1yjnEe3 XwGkDRLrfkZusIkcVMX8x1AdAe1 5N42lGOmkYHUmEMUuHAPeIQPdkG okir3mkV1oYo6+PGNvbCB3 kPH2rH8iXrBgPvI5MOktW393PfZ ydTVqZjvtd0cxs4dyeJg9CpYdFX TwvfOkdGkxJYM2w3KmDn37 R7GnuHlpd5EdXsa2mk04eYGdv0X 0kBB3O9ZjSXXdxcpkkPNxmMawKN 6rGBKntcusQRRawR1hOJNs I4v6EoXtBcU2KApjQ2FligJ2JAT qyBDgJBIltWWGtJ8voatkl3nyda dfOaRvXQYaIKv4IFa6LOBh bSpyFjFyTFW3ChU3ZFF0fYTqrM3 ewWbrskjuzP2zScb+HSq3g8qsiN IoUM9otXW1JQ82SF20xWSt u0J8uOP2H7OwBSZjkpfgfpdurTU 9ASDpVLVnuD94Hx9hwHnkOe8iNH DrDFV3TJPawKWtC7QfdI3c BoDiNEGvNYVgW9KbnIJkAMxsS27 2PKfsBlQ9NLOuijRfX5ZaCIXhtD ecVaT8b1N8Fi0DNI61LN43 XW30wIRcu2S1tHN4P9JyHJPxuns ibctrcQG0HBPdEAEliQ55Ox2juO bvRt4sOTTlYDN9JEJvjSPl A9ZqkN4zRjYlYRFoIVWsD3LfgUD bFTayD108BOgyXlN9WMXpsvWxK7 JiAFIdoYigPpA6o1E8Mc5A Jo96XY71EX07pPRhy2I8lVK2H9Z tGQCvsesgxxafgOM0QOKmYVXzwY 49Tw1rbEpfAp1dNFXpFWS4 HRHycPKoA3BziZ5bKgQeIRPfCFB cN7QncIEoZFmwW320MUljDpK8WT BlqjJaC7KaIHQykQwaHfR5 a5B1We9NWVrwypl4C4WfEvgrgEN +AY04TVCwPX73zNXhjPGgl9gpaT u9YwGbACFiOER1zHmaBDdx b3J (more content not included)... [facility] Consent Formson 01-27-2023 Consent Forms [id number]#[email or web address] [facility] Progress Note - Provideron 1 03-29-2022 Progress Note - Provider [id number]#1.00OTGTIFF [facility] Coding Summaryon 01-24-2023 Coding Summary HTMLBase 64 GwlaltmrDBm2eBe+PGhlYWQ+PE1 VVXTjH01jvRDcsN9lK3YJLXhNQo tvPLJLNHmJShYqpcAkOV3qfCZpJ XJu IC8+JW1sKTRzSoksjSTjh6K9aRB 2D61zor5eANizrXC0DTLqIoMpbg qfh9lqrPv9MNeuJuxtHcYg PQHwkG33CTH6bS61Nc83cNYeuQZ oy3rzaVx2WlCoHNNeHGY7fXlcDY dtj8OlXENxZ99jdJHmp4R3 EZMzbLixkYDaGtJqgHJ7qP7rENf pataqb1vgubmoVpj1dq23rERio1 E2nUS1A7AmidO5VAGugVLs OwbicALAvB0ropxza1idzmltNoQ vMZSmAVi1XDw0ZJVsoMvnWdVuGH 04ZYX6HSVhjxCkH6TrXTUq nMnwKbN8k7Q5Rv0PM0SOLddaE2G NTUFSWTwvdGQ+WU54ii15C2YvXx caXaz0BTLyTPP6wEH6jH4w WZBxZUcic3N8gQM1P2BvdtHypt5 au4pfREDeFUywG79wfFMve3B6BP UhkKS3RSDahOsnFpNydZ63 Oyc+PJGfvAses9JqRznrj3koq3w pdLq2VdivXWNvuaZfaOcxMJT4t2 LrDg2uNWSuoMW7dYD3xU0n ShIwRqR0VRhqL980ZvAagSDrByq aV98sX2SplPS+YAFxQdu8XXKgjF lrAV5bV6CkHQOjrmdnnCDj tGzkGT3oMXSqdsumYYBasV9xPKY iJ4l3JyAjGaX6OVodK8JoCPNciw nuWa05pS7wZiDwYqV9HBmj P8HowtJ3WENzbQSqDAwvLLX6S28 hw4H4PCQnZPZpJII3kNG0uF5uhE lnbjogbGVmdDsgdmVydGlj WHmaVXctQ322PSNskYiqAhMgBWi uZyBEYXRlOiAgMTEvMTcvMjAyMz wvdGQ+PHYqXEY0qYpuLGQx xFFsJGybOl4gtGgtiAdaSH1aKAU igelmFRAmlK4zAWQtaYPvuNfwKY 5uNBEcrkaiw188FvXrWDE6 CFSwvHRnF2BrbQ6fJgOdKSKeWQJ dK5NakLKgIYocL740RFslHfD5OM NgafZrH4CbADVgdGcoSmT6 z9Y3Vj8Mw5TypahmL6NoqXVgDpP vVaoyRLq9T4ZcEbcfbBB+PC90YW DbBA18GWe6LOW4pZcaJGjn LIVtR3BtaP5pZrNzHVIlQWVnYrc +PHRhYmxlIHdpZHRoPScxMDAlJy PwlGikWF8hSd6fNTQvUKEn cGzlmFIzIlOyd7ioYFXmWErpWJ0 jtOmlI2IvbXA9MFMjc4v6Bz36H7 8sG5OkeCT+HJIuoWG7zRT1 yO2dNqPyTjE9LAmuA047HxNhqRH iMbjdu2obl7qvqTi6CzH1WXEvvv WsdWjoWCB0u0NfVo45I30r IHdpZHRoPSIxNSUiIHZhbGlnbj0 qkU6gFl0+HHEdxMT7vWN1kV3wIb AmMuP7UHkuQ964BjYnoXXx Zjzsa4cfr2qxdAt0ZeTuZPKwqwE fkKthJPI5t8JiVe33Y1IysXmzx2 ZaXlh8hm66cJXrl4D7fJB8 K2OiTXNrdmbeaFGdnJedSM6dDVU byztqGIGnpW8rFWMaR7t1ZwAkEw H3PVgnN7YklaB7WREvsAJf GYYhxRAXxJ5owtehl5eligdrHeU fWXHnWEd7KQd4QUUifLnzQzMdVM D9HtI7PHM0lZBaqQ0fxZar jfiozE9mFjs+WXN9rPWcgDIGTE2 lOjwvdGQ+LMNaCVN1eMaeAIhiUE SecL9yLBPcG0n0JbDeNbC1 WMasL7YzobO6AZTiqKWrKYKpdTP HmU0tjcuij1oemfkzKdShKOXeOU e7XMe3ZYWqdRmeEhCaKKO0 VyI9AWM7tRVobS3twUuhgykeuL9 wOyc+GrqhiDbgQYG4QUp6T0WzCx e9QHWlfCirYL9hmIIzIInz Xc7edOhyhQbaSY4jCKEehddyt20 7TaGmg2phIPGkwLVdLQerRMQ1T8 8zx8Z4IOUiLDNqZKF7pFO0 mL4icTjmiihnjEKhkGegphKdaCc vKDswSJsaF348WGQvuPgvUhYpOV z5W4TxWcz3TNRmpYvoDM0m vODpEAroAh6zmRwpjIlfIH3sUJN eomacq651JbRsi2izHEGmsYFpOG nxNVQ0X13pc8X1TRSpKJFc ELI4mLZ3rA3joHlbybtpzHDegEm mhcIcnAlqTThqAMddN019UMTqjR zuUlFenKi7V6WvXub5XLJu sIdfDK9trXIwZMbbLg4rjUzvzDv nSS6zMZSczwndw452NeHsp2eeNA IjuMLvPSjyLUY3V82xl2D8 WLRpECVnBLJ9aSW2mS8qdXqtqah gbGVmdDsgdmVydGljYWwtYWxpZ2 46IHRvcDsnPlBhdGllbnQg MUtjKYr2N4TfZbwpdWA+HD25WJU hOU63wWXmhTTjz0potIm2AgLqCT UwVPC0eJzzZUzcv3KfGMJh X82lbPQqf9N4WVDbdRgylKMfLcL odAT3xP8hSCkpgztvb3njrghwQd wrk0rplb69oI08S27cEZjr BPAqZDXzVJYuMCDawCmqaf7gfZ7 wIi8+EXHhrSU4sMD2qG8wIPAeBs W2GSbnT044QnWriTUyAzcg a9eiw3rpsGy7QmN0LRAmwyCclPw gMBJ1m5EgYv55P54fMQljPTHxZL IdAQYfZJAhzPjlax9ubW1a Ii8+SSAdlCZ8nNW8zN0mQfJmQsA 2EDhiS380KiDkdBDuLajyX85vO6 JvdXA+UQXtLjf2TTXbaQrg LX1ncBTlKZbsHd1oCQG6YtZwHnJ oZXwbY1JlNNXcswpgqnuruEW5RK YpFMCtgQ44Zy4hiTzhHNEf rRTJnV5exjktj7tkmrygZqZkNSB rZAu7PIo7FYDtvUygIrZlGIZ2Mo G9LMF9aVGocQ5pvPddgptl qI2eL2BlXFBruwqwLq95pM7mZyX dHgX4PMckXrr+TVVMTEVOUywgUk DCHRBTQDXBJQuHBfS6E7Fg Loq8ZNQytMouOC8jeSFzONrnYn0 yhAtqjOyiGP0pQOCambmgELZxyV 5sZFMniDXeqDmgAT9uUTFr iplwy620QpCzUEJ3QRMrwTOqD0H moO1tOdFiZDKlMRMoY1YzgIPeES tgT360QUjhTbN4XFGptnYl N4LwEOTbiSdmUwV6n4K3Ga6eIG0 mRf0yCTk9DA38BB12rLKec6B8pY J6M0RySHLeovyyyslebTI8 MPFvKBOnrZ99lGWvZKixLn2qi0G 4r153BKJnDZOhkJ45Td7wiIalHX RvwLTDhN4hxkfqq7rvncwa QzGsCZVzNRe5XGq1NRXtlWxrBpV oWRA2WyE3IYQ8cTQhvL6hsXozkv iqaS1qChn+MzcgWWVhcnM8 L0XsWqy8XLEbuQtvYA2ejANuUVr vTt9jpQswzNuuGG9dRCEogagzKI TggO3mUUEkaSErtBqdMV3w RQLaklfgb365VdKcNBA1WQAweRR dT9VzuW2kIwVzBVTsUOMbN7RhhH IvZCqpH823XBueHhN6NXDh neBeK1HrGYRbfVeeCxB5d8Z8Py0 LMI0VQZV1U0HqAwv7AYKykWbeBJ 7wzFHvGPukWw1iuCchiRlm XS3qYCHwopedOFTcwD7tRMUqxYE ogSozGV3qWQZmmasfn674LhTwAI H2OYIbnDEmG0WcfG3kCuRw IBXxVYPyV9MhoZGhWOtjU978BLl wQjL4TKLycpAvB9PdQRWbjRbaZa P4v1Z2Yy2TJFbvzXW+PC90 xj38M7WpJvxlUnt1RSUuURY6jTI 7iL3dPKPaXWfmn0V7zBA9O5Ncma Kaxt1mk6jhSRRrMQvoN34o rBZyv3G9UOEykEY3NFXvyDdjDcJ ysC43Waa+SSIpbRxon0NjApnld2 qep9yetIj4SbEuZGGljqZm kCmvCKN8d3FsEi46E84aMDskPJB tBMNlPGOjOSUkzOcecr8uaR7lTv 8+IAOfiGX4yVA3gZ3qDiBx LqD8GAsdF779LnJceKUvGwvga1k rw3rwqFu1NbFpPIQhrfVbsEtbUL Z1v5HkKe76Y2DakNqod9Tv Bbf0pk68wFKfo4R3hOA5S1RvLLW cxdcxbYLovNrrBG0kLMTkzmbqJX ZklD4xBILlU0i4QtHcDnZ4 MVzvM0StotA7GVOcyHHdLVBbnJB CnH0ayvdod9mfbnczXuYnUPQhLC a8RTf0AEDxxYevCkEhNAD1 UyA6SWC5gOFccS1asQzbrxiqyF5 wOyc+SFj1z1smqKGvZK8xtJG2CN 70HC87yFGlk7Z8qDX1X3Ru QOSqgycwjbtkxPU6UGXdFWCwuU6 9Jh2siJojQs7iCTAfBPS6YWQqtL EdU1FisF4hBwVnTOWeQHCz H1WnoJSxDPlmK194NMrvMoH9ODD tmoXdU2PqEZTbdAmoQfL6w4O8Ne 5RKK92AQ56TN84lCLbe1N7 fRD2X5SoNBRjqwynewlboXV0KEF cZRCxuH18Et9moCqfZf9eAHNhEU C8TTKjhYImX0GojV7qYzSr QYHzIQFkQ1IuqGKhAAozN542CWj pAzI6FCEewzNoM1JvITCveTmjWo J2c7Y8Gn4XYj68IA60VX76 qYLxt4S5sTD4S7YwNJPhgqcnxeq jwTF2WUGnSXCltQ80Wo8rvEcmKn 5dHPNyLEC6IGBbzYKuP9Zr cB6aInZvIUGtQJWoZ1LwuZKwXTt rI516LGgzUhC5YPYesrYhY3JgZO AijMnvEaN4f2U0Ve3MEEtm vug0N9QrSrmhxCU+DN48HCHlEC1 6eWCulKEvr2pdtWz9IyOrZLFtLG W4xKniRYjbl0IaIWPaZ48i [facility] (more content not included)... Normal [facility] Inpatient Patient Summaryon 01-24-2023 Inpatient Patient Summary [facility] [address] [place] [address] Patient Discharge Instructions Name: MICHAEL RAMON : 1985 Patient Address: [address] [place], [place] [id number] Primary Care Provider: Name: Thu Baldwin DO After you are discharged if you find you have any questions, please, call [phone] ext [phone] to speak to a nurse. Discharge Diagnosis: Prescription Information: If you have been given a prescription for narcotics, seek immediate medical attention if you have any difficulty breathing or any sudden status changes such as confusion and sleepiness. If you or anyone you know is experiencing suicidal thoughts, mental health, alcohol and/or drug addiction problems; contact the [facility] 30/09 Crisis Hotline -text 4HAKA qh [phone]. If you received any narcotics, sedation, or [...] business decisions or sign any legal documents [facility] would like to thank you for [...] and Prevention S (more content not included)... [facility] MAGR Intraoperative Recordon 01-24-2023 MAGR Intraoperative Record MAGR Intra-Op Record Summary Primary Physician: SAM HERBERT MD Finalized Date/Time: 01/24/23 12:15:52 Pt. Name: MICHAEL RAMON SHAQ /Sex: 1985 FEMALE Med Rec #: [id number] Physician: SAM HERBERT MD Financial #: [id number] Pt. Type: D Room/Bed: / Admit/Disch: 01/24/23 [...] Freida Rodriguez RN, Barbara RN Role Performed Signs And Displays Salesperson Signs And Displays Salesperson Signs And Displays Salesperson Time In 01/24/23 12:09:00 01/24/23 12:09:00 01/24/23 [...] Samreen Means Melanie N Adkins, Valerie [employer]ES COORDINATOR Role Performed Signs And Displays Salesperson Industrial Safety Engineer Scrub Personnel Time In 01/24/23 12:09:00 01/24/23 [...] Yes Implemented Addressed Time Out Valerie Palomino Time Out Time 01/24/23 12:10:00 (more content not included)... Normal [facility] MAGR Preoperative Recordon 1 03-26-2022 MAGR Preoperative Record MAGR Pre-Op Record Summary Primary Physician: SAM HERBERT MD Finalized Date/Time: 01/24/23 12:06:06 Pt. Name: MICHAEL RAMON /Sex: 1985 FEMALE Med Rec #: [id number] Physician: SAM HERBERT MD Financial #: [id number] Pt. Type: D Room/Bed: / Admit/Disch: 01/24/23 [...] Signed By: Ami Baker RN 01/24/23 12:06 Normal [facility] POCT Glucose Levelon 023 Glucose [Mass/Vol] 130 mg/dL High 74-118 [facility] Comment on above: Performed By: #### 4 [id number] #### [facility] (DEFAULT) [address] [place] [address] Patient Handouton 01-24-2023 Patient Handout Normal [facility] ED Clinical Summaryon 2022 ED Clinical Summary [facility] ? Urgent Care [address] [place] [id number] Clinical Summary PERSON INFORMATION Name: MICHAEL RAMON Age: 37 Years Sex: FEMALE : 1985 MRN: Acct#: Visit Reason: Medical screening exam; [facility] F/U - RT FOOT INJURY Arrival: 01/22/2023 16:05:44 Discharge: 01/22/2023 17:00:00 LOS: 000 00:55 Check In: 01/22/2023 16:05:44 Checkout: 01/22/2023 17:00:00 Address: [address] [place] [address] PCP: Thu Baldwin DO PROVIDER INFORMATION Provider Role Assigned Unassigned Catarina Meyers CATHODE RAY TUBE SALVAGE PROCESSOR Nurse 01/22/2023 16:08:55 Mati Bell PA-C ED [...] verbalizes understanding of instructions given Comment: Normal [facility] ED Patient Summaryon 023 ED Patient Summary [facility] ? Urgent Care [address] [place], [place] [id number] PATIENT DISCHARGE INSTRUCTIONS Patient Information Name: MICHAEL RAMON Age: 37 Years Date of : 1985 Reason For Visit: Medical screening exam; [facility] F/U - RT FOOT INJURY Arrival Time: 01/22/2023 16:05:44 Primary Care Physician: Thu Baldwin DO Attending Physician: Mati Bell PA-C Comment: Patient Education With: Address: When: Return to this practice Comments: 04/08/23 at 3 p.m. Medication Information: The exam and treatment you received today in the [facility] Emergency Department were for an urgent problem and are not intended as complete care. It is important for you to follow up with a doctor, nurse practitioner, or physician?s doctor's assistant for ongoing care. If your symptoms [...] so we can reach you if necessary. [facility] Emergency Department has provided you with a complete list of medications post discharge. Please inform your physician primary care sports medicine/provider of your visit and for further instruction [...] (S90.31XA) Hallux rigidus (M20.20) Medical screening exam ([id number]) Sciatica (M54.30) If you received any narcotics, [...] sign any legal documents Reason for Visit: [facility] F/u appt Allergies: Substance Reaction Symptoms [...] Infection Yes (more content not included)... Normal [facility] Urgent Care Note- Provideron 01-22-2023 Urgent Care Note- Provider Patient: MICHAEL RAMNO Age: 37 years Sex: FEMALE : 1985 Associated Diagnoses: Contusion of right foot; Hallux rigidus Author: Mati Bell PA-C History of Present Illness OCCUPATIONAL HEALTH FOLLOW-UP Date of injury: 08/26/2019 Claim #: [id number] Employer: [employer] Mechanism of Injury: She was moving boxes of celery when one fell onto the top of her right foot. 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 On 08/26/19 she was moving boxes of [employer] when a box fell off of the cart and landed on the top of her right foot. She was initially on light duty per [facility]'s telehealth visit. 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 Surgical history: Epidural block ([id number]) on 03/06/2022 at 36 Years. Comments: 03/06/2022 10:33 Dana Conklin MA RIGHT TRANSFORAMINAL L4 AND (more content not included)... Normal [facility] Urgent Care Recordon 023 Urgent Care Record [facility] ? Urgent Care [address] [place] [address] PATIENT DISCHARGE INSTRUCTIONS Patient Information Name: MICHAEL RAMON Age: 37 Years Date of : 1985 Reason For Visit: Medical screening exam; [facility] F/U - RT FOOT INJURY Arrival Time: 01/22/2023 16:05:44 Primary Care Physician: Thu Baldwin DO Attending Physician: Mati Bell PA-C Comment: Visit Diagnosis: Diagnoses This Visit Contusion of right foot (S90.31XA) Hallux rigidus (M20.20) Medical screening exam ([id number]) Sciatica (M54.30) If you received any narcotics, [...] and treatment you received today in the [facility] Urgent Care were for an urgent problem and are not intended as complete care. It is important for you to follow up with a doctor, nurse practitioner, or physician?s doctor's assistant for ongoing care. If your symptoms [...] so we can reach you if necessary. [facility] Urgent Care has provided you with a complete list of medications post discharge. Please inform your physician primary care sports medicine/provider of your visit and for further instruction [...] for Disease Control and Prevention November 2013 [facility] Coding Summaryon 01-21-2023 Coding Summary HTMLBase 64 ClwefqobUWn0tVw+PGhlYWQ+PE1 NXDRrR27vnQLhtS3cE3QYPYwYHo ijNDYIVAnRBbQtcyHvRL4zxKZuJ XJu IC8+JS0zLYTcVlqygYYwb8L1mCP 0V71zzg7uDFggiIS8EKWnPqNrwd cpd7ahuJs8CIxjCpjrVxFe JWKpeT46GZB9bF65Un32wDPobMF ss0olrFk0JiHdJUObVAV0lHxdJK jhe1CwWMDgH13quUYxo1N8 TKQniUjnaDAqFoTikPT6fG2hWJt idmvuk2toswjmDop6xc86cWQyi2 F8dPD3L1OuzeM0HSOzyCOk QyfanFIPyV4gmqlyk2lfwebhRhP nVNHmFYn5LJa1IJLnzHrbHbRdBH 71AFJ9PRDiliZfF7NjUUJh lYjlNpR6z6E0Yg5BP4YZQtloY9K NTUFSWTwvdGQ+EE56oo55L3ZaHy erPta2BRAwOKQ8xVN8wA0c KQWyZQesk7P1xMO1Q4YtruIzet7 bw0ipIGNoTZowY78drIYbo4Y6JH GkmIS8MBAnhZdxGfNjiI09 Oyc+NUYjoJmvs6JyEqznc8fix4m qePv8TterRFUtkoHedHzgPKZ9k1 VjRp4cESHakME2eBS2rA5d RrFwDhR3RQxzB162GxRylWEcGgr kJ48rS9ZrpGR+FSQlLnk6YNPtjK ucWK2sJ1CgGWIxjgaipEEu jMlsFZ8mMQOygpwwSIRfwE1tWLS cP6m3ZbSyDgW5DOddK7VyWTAbqe voRs07sB9pUmEuJmJ4UKrw Y1CesmT7QQKtuRBvAKvaJLI3O77 cb3J7VLHrHIIdNEA0yXY3bN3wcH lnbjogbGVmdDsgdmVydGlj OKxfKHqbL762SLYpvSmlHcSiAOh uZyBEYXRlOiAgMTEvMTQvMjAyMz wvdGQ+EUSzBLC3nIddROIh kLIsIBxuNh9pvRsroJzpRJ7yRVO tpoobBYUflH0oKOCfnEYxuUgqJH 9ePNAguxinj921XhPiWXN2 JKZbzIUjV2YukW4zEbTnHXZlOMU wJ9OhfMYsZTsiB642IKngUeQ8ZS HeglJsT6XyOSJnjKtxYoB5 k9O2Ty6Oq6VjutdsM8ObeBSzUwJ mLzbuINc6H6DcKiydvJB+PC90YW DvAU74ZWw5IDL7jAcvAJno MBUuF5JqfK1wNfGsUTQzGBAdLtu +PHRhYmxlIHdpZHRoPScxMDAlJy JmfFxpJB8bSd8wVODbVZQm aXarqNHgBsDlk3rcTMTuOZsnWE4 lyVvpZ1YifJY7MZWhn2i6Qb35C7 7yX8JhzPT+ONJprHL3oQN7 rA3lMbGnNcR1WXtcU027TsGjcKF hXjuls1guf4lgrBd6LzT2VHHfhh XlkHviLQG4g4IaQd78K21g IHdpZHRoPSIxNSUiIHZhbGlnbj0 egG5cKt8+OBSxdRB9hAO5aZ5gGp YjTeN4RCehL695IkAfpGXr Iewza6wwz9jboVz9FxGeWCDyucS cvQopMDO2d8DlDk47U4TueAumr1 QrOqd8ze67hKKyw3P9eBX0 F8ShLBQlpuwrnBGdeNdnFW0fJOB qdpyzAVWsaT9nENFvL3q1RaOdGx Q7CXriO3BnlsN5YHMocOMk NRAidJWCqA3grrfej4wftaceIuC kAJAyKWb0GAf5ADVxwZymRlOuJS U9AgK6DCR2zRUyzW6ozCnn lyyhuD9tItk+EPK6kAIicSVXPY1 lOjwvdGQ+LSCnNPC7lAsnFRltNJ SlaF3wVALdX1z8JlBtCxS1 QUioF5MeknE9YYElsGQyZBCmsLZ NtT2ikavdt6eqonknEwMvGOUeMH v9BZx7VGRfsJfpTcUpDDE4 VxW5MGN7qQArcA1efZureemxfY3 wOyc+WimdzOobRGM0SAu0Y1OiLr j8SVKylAkgOI0kiZGcAZjq Ff6qpHqdsPmxMS6rCOZfotyuc15 4OkZnl3nhITZkgJZlHCfsEKM3O0 8kl9I4ENVqMOVeJHI1fCZ5 oP8onGyxgjionFUtzKljbgPqdSa kAYpkRQsgU415HGHcgJzwBqQsYB t8C6ArWdw7BHWbwVebMG4m hIAwCKojVs0clLconLpcBN8vRTR nkeqgc256AgLxv9caCSJrnKByNR gcOLP1B40wq9V8JIZgBCRu XFT6rFE8qL3hxZhmouqyqVVvrNu sxlRgeZwdFBjvFHakW011GZHhnX ikMbGxjFl9N2MgHwe2DVCt pQesAO8yxXQuLKjiRi3nbInkpLp kWJ8xQGViilrvs856VgFgb6jaBM PgmWSbBFzxHLK8D47ci5N6 BFOxVUCaGOB8sFE7dF2oySigfjf gbGVmdDsgdmVydGljYWwtYWxpZ2 46IHRvcDsnPlBhdGllbnQg IOutDKe4F4RnQmgzyVU+BO22UPZ mCC21gPIdhUMzh1wfoQr7AaHqGY OpTCD2xJkzRZibo3VmBLUv S67neLSms7S3XXUxhIxddNBtNpG szMH7sR2cEDzjfgvwy8ytaerpJe ivg0nbql15kJ29L38xPXll ASFrWYLeEFRhOLXyuVcbde9eyK2 wIi8+KSCpvPJ2dFX6eI5oUNQpSd X8VKalZ166TiDavGAgJduz h3clb9djsKy0NfR6WQIdehJidGa xPMB2j3HoUe25Q24iDYxyOQQuQW EmFWPiPHEidImeho6diH5d Ii8+KXMiuCO2cBH0uJ7jFrGfByN 1HIiwF517YuNczJSrZnakX41oO2 JvdXA+XZUmGos4JORntYub SQ5nmGCyLKziNs4lESL3WuHoIbP mFXcvC0AwAOCwanfnyqnhgXF2PE JzXCVsrW09Oe7tkBhaGOFk lKPXxY9thlmmn0cqacpzSoJpUMU uBUn0TQr4SSEdeZblMvDzSOP9Aj V5KSH1bUUzaY4hfPwszjck hJ5fY5JbRCRizngcQw54cH6jItX vNcH1FScoGfv+TVVMTEVOUywgUk NSCXTDBDMNIGtDHyV7A4Ki Dii2XRNxkThrOS2zxRAkSYjoRl4 mgDwxzSdcNE6bQICujznbRQAwqR 3rBSZbaDIhePuiKG6xBXSc gujit216NvHwAKR1GBBgcQJsF4K wfN6aLlKtOUYaJPWdX9PwxCEeGJ foQ620GYxuJdC3XPVjotDf W4CaXAPwtTrdHlU1g0B8Hm2mEP7 rQy1gWPv5XR81KM23nLWdx9B5aZ R3Q1IyFBSkuburubwqrDG3 RJCqYRByeY06fRQmJLtiFv6gk2I 0f772YSDwVSZhbD67Au0jdSxcAQ RgmNSEnU1acayvp9dkvmtb XoCeRDWwBCf6EAi3LUWunKxyGyT tXVS3XuB1RYB4mLNpzX9ldQazbg cxyH6wIwz+MzcgWWVhcnM8 S8FrHvi6TRYluMdnLC5pqIFcNWq iYj2qgRezlUslXW0eKWBjhbljFN CsxG7fYIWhrAGgkYpfQI2u AOAwhrrxr262XsMhNWH3DHEqpZF lQ7IocM6dXnFxDLTqOJYrP2WzsI SnFQgcS880SDcnTuW9BJNr cmWhA4KvFPKwkShiDtY6r3Z2Yk3 OKO2ZUAN1Y4OtEnr7HDDoyKupPY 2gmKUrLGpjEq3zyHahdNnu WM1sZMGdmklfNESezP0gRYImeYU jwMfcLR6xNAGpulrop136YmHaRT B5OWNolZDzY8QnjK3aHiIe DCIkEPZdN6LtjUKuMKgaX159UPq eNzM7IIJvucHqE7EnYFAjwVeeVu D5o6U4Sr1RAWV9czCmgzyj P7V7fCD4gHYytEdofJH+XO36de3 2P1LdHmxyEfs0UEJxSTJ4pOH5eH 2pBMXsJMuuu7N2vCH0B7Nj wiAntx7mk1xyXLMhUHmjB65zyGA bs1T5NIXyqOU0VTTsbUoaBdLgaF 93Oyc+XPWdrSfnq6ZjPbke t5nqp5iveXu5RbMtOTHbqaLwaIe rLHS7c8AeYh06R04aVZpkYNBmYS DtDQAvNNPnlZcfvf6soV4c Ii8+RVPhqEC5mJF7yR4sTzXfKfN 2VDnsR005QvNpcPSgDjzmz0ylc5 jixGj0DwRjCOAjflHqhSsf GBZ3n4VaOr23W5VkhTmyg2RgNvv 7aw67rFFmt4G5hPS3X2XgKODptb nebYIzhCmnTF1rWPLqntvi AIZyzL2fMOJvB7a5XdNcJuM7FBq dJ8AkobC1GPKhfAQtYUUxrYGVyY 5byqrhe0bzavpiQuPaZIVi YUl8MPx8AIBjqOrwVaSoQHS2QmU 4QBL3dQQszK6laLudvkdzyY7ySt c+ZMa7h7fezWBcLO8xwVJ5 JQ31QV60wNGax0A0nWY4T8RnPST ozrrrsxsdkKL4EGCfIPWtnV44Ga 3mlUdbWd8zGZSaTYO0ZWLh kPBjW5ArkD3gYtRfIGBcNFAyW1P vhRPaHPupY631JVbcGdY9JSRwng RgM3LjNWSbuCegJxB2d6D5 Uj1WGJ21RG38FQ86iFRgf9A5nZI 6J6IrTIPoatainfolwFE7OQUoVC QjnW03Vu2guCvgHx3iXBWu SFB0VLEipRYmF3BuyV8nNpDoRUV wJMLlO2BehRCvUFvaK643NRaeXo O8TUMgjnSvN4TeJGNiaTjc BnA3t1O0Kl8KMj56FA31FF22zWT yl3M6bGB0F5OeYWYujhzvyokqcJ B1TCCsYTOhoI46Xm1dxJmk Kn9vUHKxZAQ7RWRlnZStE5GkqI6 lLcAuMEHyVMJyW8OlkRAdBFdbF2 16JBgeKhS3JRNkzgEtO7Iv LEUlbPfyMoM2h1F0An9RQShqnni 9N2CvHnqlaHG+PK00IWRiVP88yZ RrtYNei3auuYk1PqKzKVZc IHN (more content not included)... [facility] Progress Note - Nurseon 01-08 Progress Note - Nurse Pt called for refi ll on Diclofenac into [facility] pt compliant with OV [Electronically Signed on: 01/20/2023 10:07 EST] Josefa Schuster LPN [Verified on: 01/20/2023 10:07 EST] Josefa Schuster KILN PACKER [facility] Coding Summaryon 01-14-2023 Coding Summary HTMLBase 64 QevfehreAYq4lNn+PGhlYWQ+PE1 NGCIdU45seBUekV3cD4DPUBhLRi llKMMIOAtMOgMcshTnOI1ccOYwU XJu IC8+HK5wJCBcNcpaiVVue6K1wIK 5K09cdr1gSEjnbMS1VRUpWpJcem tjk7pooDi6MSsaZjsvLhCb VZMulD05BRN3yI56Gj72bRWceCN kj5qvyNs3SiXoFTHvWWL2aRraQV toe1SxZPCeF01vpICbl4J3 GUVbtRzghBQeHoIkiOG5nS3iWUm zvvtdn8zcuybuMlj9gx22oORab3 J4oGD3N6RtvvL6HTYtxZWf AjjvdWAEvR9sixjsh5jnxhhzTcN oJBHoKOr3IHj4UNWkaHxjXpFxQH 72JWV9PONgsoBoN2KmNYAl ePjkOdC1s5Z9Iz4HM4ZQNxzuJ5J NTUFSWTwvdGQ+RE15ko70S5QgXr rtUtn0ATFzLYO3uBZ9wC6w NBBlQUxqw9J3qNV1P2ErlgRkxq1 kn2kdQHVlRHsyX98lzYQbe8X9QS OfuGF4HAAofAuoIoXxyQ19 Oyc+ASDmzMqow2GzLmznn6edr5u nxQb1VsoaBMEhdkTuuLhuRTP0h7 WeNd3yJZNfzMC6iAA5zL4t VyFsQpG5QXwpW421DhQqzYGuWco iR59jZ3LxjKX+WCZqGjq7DQFrkN qtIL2hU7VcWEWdxcobvNHr nTcfHT0tQWElsqmtUXTbpQ6fZLW sO5u9RoPcPxJ4IXwwP8HgYURngu xxKt57nR7wYqPfXvR0AAsd J7EhyjS2HBJzwFDpLHngRVB4F94 lx4X0KFIcOYAkLBD9aHY5gR7zpB lnbjogbGVmdDsgdmVydGlj MVejQPqzM375FORylQnlUyXmGZl uZyBEYXRlOiAgMTEvMDcvMjAyMz wvdGQ+KWShCNR1zXfwZHAe tYEuGCatSm2biZqzdRinPK7eGMU yqsenDWAnxM6aIAFylUCkvLvzYX 7tALXuhgkua708CtTwSTE1 MIPfeHNnD3TxhS2dRqHyLEUdVSE nR9XyrUEhZVvnA198FPqiTlC4XG YcodKsY3MbCGPucOadVaG7 e4T4Ag9Vn7XdrncnO2JhtZVaOlU oRlczAGe4E9OgPszboFJ+PC90YW CkQP65IPf0IZL0yVflAWhy ZWYnV3TaaB7tFaFfPYJtYNUrKwg +PHRhYmxlIHdpZHRoPScxMDAlJy PjeUdcJE4yMs8aECRoQWLa xYsdhDHbPmEae4xhDFDmSWodMD0 njDtqI7FtnJK0LLYsa6z6An80C1 1tP2EiyYY+GGSbgUK0iDJ1 cQ2wJwJvYvR1JQmnB304GjZqzCE hLvdev6czd5sbbUw5GsT6MJMeoa FljPjfEFV1e1JoXt40R22d IHdpZHRoPSIxNSUiIHZhbGlnbj0 wpX9kMh0+EHElkQP1sOU0yH4eMb GcSrG8FCyfW377LrBigKFk Afzmj9exd4hekNk0QcWeVRLkobT hnQakGRZ2f1AcOj19O2KlkLbaa7 ReFdp3qh14oHAga1W8sSJ6 D9BsYTOqddepoDMdsOtvJX0xGUO mxsziJKPugN7eHXOvE9w8FlSfEe K9QJhoI7YlfaQ4OVFfbUVf DFXtiBEGqV5fkmhgm6vhwrumEyJ dPCAuKAc5HBl3CIHkgYfkThTaKU M2FqN9GGI3zEAfeM2baXdu rfgyeA9nCxa+ZTB5dVDsjKTATP3 lOjwvdGQ+KRVpRXI1tUnlQCxbQO XkeR8nAETwS6i6DvTwWtQ2 DKsoV9NfmyJ7PSYwoKSoEUTjcVL VrD3xaijya0lgdmmnKzSaNVLrZG k8RFv1FVZwhYokOfZbFML5 QqX1WKW5yNRqzH1pqMjjvsohxN6 wOyc+QonuoFigIBT6ZQg1J1TxZe w8CFDavDbcJM1nhWOpYZau Ly9sqWiyjFgtYU2nPMIqfynbx30 8XrJhz0lrGYEsiJExTWerEBQ8V1 0uo4J3XNFxYAPcBYG8oGY1 tO4jrWfbifizpDVorFuckkHgrOm aDInpOZjgD706RYWbtDtzHtCoWW z2D5QsYil5VQKceZfaVN0r zYSmSIpwUc1arQrjzKazNJ5rMHS ehviyx461NzCvw1ibQMYgqXRaCM xjTPJ5D19io7B8EFSjPWNn HUU5pVJ1pL4wtWoprxneyZMovCq gsbMmzVstEEjtHVwdE708AHRjlV gjScSscYi0M1YpXkc6ZUYs uLhaJG3beJInXTwgXf2edQyvhAl cBS6dEZZpwzgrn961OoZsv5hrYN HzeGVcVLzcBHO2C22dq5X4 TXFuWGElEAK6xVW9vA7jzDjccsy gbGVmdDsgdmVydGljYWwtYWxpZ2 46IHRvcDsnPlBhdGllbnQg VDkcBJo1G4OqQkuqlGN+TA48NOO rHN18tNVakTRkj9zslPh2CcMrWL HyGOH2dJyaTQhic6JxIXAa M26rgBNsi8D8TUXkuFfcpJCwKzC ydMW6eQ9hSBchxfhpc7flulloCn ydd4xzlw30uU35J25eLMnb EICjDPOcSHJtLHRueUpwnd1hnO7 wIi8+IYPhcLX5kSW5zI5vRJKwJc A3NGmoO729EaWqxOCpIcfr y1ylm2thlBt3HbS8WHAynhOnjFt sXBP2a8ClOr67Q19xYYncDVRjIH MeGOVnYBGfdIauzw5vpU4i Ii8+ZEFxmHI8xWM4vV5lIoOwTpB 1JLdeK647VwCcqOJdVslhL87bJ1 JvdXA+NVRwUbg6RPCwbJkf CC8jjSQtCFrvPy4sYLI9RqMzEhL sYEdwG3GkWVHjqagvqeeoyBU5YU YgJMTloN64Pd9ksConOLUj bNQZaY7eqtibz0cropzkRqEkOCX qWJe5RNz4BBDsdIebFoXuRJS7Wl C4XCK2lRObsN6cqKlrogea mD9aP3LuBWOrnokxHk50lG9iOzN eCzH8QBqlDbu+TVVMTEVOUywgUk ILZTWJVJHHNKzRLaM8W0Qp Dwi4DEWyaIaiPK7ojZXiSQldFf0 irLbtzDnhAZ3zRHDbjgcfADZqpE 7iSPIorSGfxHehJA8eJZKf bmlsh070WjChULJ5MAYvvZIyP4G kzA5zSsFzMCPiHUAcV7WjaFUtJC soX483DOfcByI3XWChlcYz Y2FrMNLdnPzwDhU9g1L7Ck6bOU6 lZa3xLHg3GB52MP45yIJln4Y0cT V3U9LqHFPmypfgdrvjjGK8 LTImVGDdlX49xIDgSUouVk8yj6W 4q542OOPiTJTdbO87Vb6dpZndNM TncGPHgH4bgysiw1odnpmk EcXhUMOlFSy4CHn5DTQwrGzbWmB sBRV0DuQ3YWK3zAZvbZ3lgWqqlu kzfF2bUbl+MzcgWWVhcnM8 T9FgOix4SOJmgUzxKR2kxONxFMq lQd5qsUhysVlxZD5oWZTseqptGC BfmH1dUAGslFGlbAdbSO0j NTKddcijh545YdFsZIM0THAutYD bK0IhvG9pDzIdMSDmMRAaM5UdcG OsNBrqJ044IPkqLgS6WXXn zzTrY7UuETDnrNtmTkT7o1P8Ug9 UPA7WZYZ2E6UyVzt9FPFjsFxwLR 0blQAyECeoPv3wqJykgGpi DR0dXFZkdjfiYMZzuU0rEHTjkOG fuSphUD2tBWWhksqud652DjNtYC E4UKYknGWvZ3QpqS4sAcZv FICwDGYcN2TxzUQjFYorA971IHr rGhM0SKSuvcUjZ4LmCCUtnAozUg E2u8T4Zd0HZHD4fgXbgmsb W1L2uEX1lUIxqFrkrPR+LZ11no4 5D1UfLcdwDta5WGFwGQR9zAK4rO 2rITYqVCgia5B5nOK1T4Lm gkRjlr6pv9jcAYAvFGgvB82wnQH ky0Z3FDIgpZD0AKYecRjuUqTozW 93Oyc+GOTaiWeml5AkGqdo u8axw4sekMz1KpHdSQNzcpCjuIy pYUC0f6PsJv28W88lPBegCWYlPE JoOUXgCRQrgPjcag8lpU8a Ii8+PPWsjBS0kPW6bI2hXuWmWrD 6VOraJ874BfClmLMhJiwkf6nkp6 egeKf3GvKvATUkleZmnPbc HDF9m8KmXt96Z3WciVqkd2ZvLqq 1ok68lUFxk8D5yTX8Y3BsYLYjro qwzYLwySraHT6tNFRyxuat UJUmlP2dHTIdV1l4GuPmErO6FWw vC5ZvcpI5BWTygGCtCKBqnWZCjL 8lzicjx4psdosnPeAcMGXu YWa4KBv4HHWhnPbxGiSeRQX6GfO 5VFE1rVZjsT9qnPcczobnuZ1sSj c+YUz8j0mvuJRxWX9gyTC0 PF04XD53bCLlb7Z9nWU4Q6ZqAXB zomghqfpbtPR3LKIeBOXyhL05Zn 2oeGotGx2wWCDhEAY3UWUg tOKyT5GckW2mJpHcATYwMSNrA7E fsXQxMOmuY602MFunVrR9ZHQwwq PuZ3VmIBLfrXjvXvR4z9Y8 Js1CKZ22MD76LF40cGAhl4A5pBW 0B2HzUDJcfbvdulsisMY2QJQbZJ EtsH47Bt4qiQjpCy7fNEVt FJF7DQEzcBXzO5DbwF6oTvJvULH cKANqF8CwtBFjYSmoM492GZseDv Z9QOAlxvLhL8XcVWStiMcv GlD9c0L0Ce6JUe74IQ53AD27zKP ii5K4hGU9K1CyZXAqyxlbcucdyZ K2HPArOAUvsI74Zm6nvYes Sl8bYDOhVTH4XTBfiNXbL2XthU0 aEsTmVSXqSAKmF8DmeLRnEQmuD6 31DPbvVoO0ZOYvssQtO5Cq KTHafDjiWuQ9z0D1Py8XUDdamas 3Z9DlHtjjgIN+WL43HSUgTO81bH LfqOCms1cebSo4UlCsUBPc IHN (more content not included)... [facility] Physical Therapy Noteon 11-0 Physical Therapy Note [id number]#1.00OTGTIFF [facility] Physical Therapy Note [id number]#1.00OTGTIFF [facility] Provider [facility] 01-09-2023 Provider Orders [id number]#1.00OTGTIFF [facility] Progress Note - Nurseon 12-09 Progress Note - Nurse Patient called req uesting refill of Lyrica. Patient is compliant. OARRS is reviewed. Order sent to Dr. Sam Herbert for review and approval. [Electronically Signed on: 12/31/2022 14:36 EDT] Giuliana Travis RN [Verified on: 12/31/2022 14:36 EDT] Giuliana Travis RN [facility] Provider [facility] 12-30-2022 Provider Orders [id number]#1.00OTGTIFF [facility] Physical Therapy Noteon 12-08 Physical Therapy Note [id number]#1.00OTGTIFF Normal [facility] DECLAN Antinuclear Antibodieson 12-24-2022 Antinuclear Abs, IFA Negative Normal . [facility] Comment on above: Order Comment: Reaso n for Exam HAMMOND (nonalcoholic steatohepatitis) Result Comment: Nega tive <1:80 Borderline 1:80 Positive >1:80 ICAP nomenclature: AC-0 For more information about Hep-2 cell patterns use ANApatterns.org, the official website for the International Consensus on Antinuclear Antibody (DECLAN) Patterns (ICAP). Performed at: [facility] [place] [id number] Advertising Layout Worker: Jared Reeves PhD, Phone: [phone] Performed By: #### H BCAB, MITOM2, SMAB, HEMOCHROM, HBSAG, L-K MICRO, DECLAN, HAAB, IGG, HCV RX PCR, HCBIGM, CERULOP, HAABT, ALPHA PHEN, HBSAB ####[facility] ,#### SLY ####[facility] [address] Actin smooth muscle IgG Ab [ Units/volume] in SerumOrdered By: Job Martinez on 12-24-2022 Actin smooth muscle IgG Qn (S) 8 Units 0-19 [facility] Comment on above: Negative 0 - 19 Weak positive 20 - 30 Moderate to strong positive >30 Actin Antibodies are found in 52-85% of patients with autoimmune hepatitis or chronic active hepatitis and in 22% of patients with primary biliary cirrhosis. Hdkcf-9-Rkdvhskzzsp Phenotyp max 12-24-2022 Alpha 1 Anti-Trypsin 184 mg/dL Normal 100-188 [facility] Comment on above: Order Comment: Reaso n for Exam HAMMOND (nonalcoholic steatohepatitis) Performed By: #### H BCAB, MITOM2, SMAB, HEMOCHROM, HBSAG, L-K MICRO, DECLAN, HAAB, IGG, HCV RX PCR, HCBIGM, CERULOP, HAABT, ALPHA PHEN, HBSAB ####[facility] ,#### SLY ####[facility] [id number] [place] [address] [facility] Phenotype (P1) MM Normal . [facility] Comment on above: Order Comment: Reaso [...] Ranges used to confirm phenotype. Performed at: [address] [id number] Advertising Layout Worker: Jared Reeves PhD, Phone: [phone] Performed at: [address] [id number] Advertising Layout Worker: Janiya Caraballo MD, Phone: [phone] Performed By: #### H BCAB, MITOM2, SMAB, HEMOCHROM, HBSAG, L-K MICRO, DECLAN, HAAB, IGG, HCV RX PCR, HCBIGM, CERULOP, HAABT, ALPHA PHEN, HBSAB ####[facility] ,#### SLY ####[facility] [address] [place] [address] [facility] Blood or tissue HFE gene mut ations identification by molecular genetics methodOrdered By: Job Martinez on 12-24-2022 HFE gene targeted mutation analysis [employer] Nom (Bld/Tiss) See comment . [facility] Comment on above: Result:c.845G>A (p.C vg497Xiw) - Not Detectedc.187C>G (p.Awy91Fwa) - Not Detectedc.193A>T (p.Xuc67Rhd) - Not DetectedNot associated with increased risk [...] recommended for patientswho are homozygous for c.845G>A (p.Hrg233Ktg) and have yetto experience clinical symptoms.Comments:The most common HFE variants associated with hereditaryhemochromatosis are c.845G>A (p.Kea010Lxq), c.187C>G(p.Ixv75Rzy), c.193A>T (p.Znp90Sae). While patientshomozygous for c.845G>A (p.Eew615Zym) are the most likelyto present clinical symptoms, less than 10% developclinically significant iron overload with tissue and organdamage.Genetic counseling is recommended to discuss the potentialclinical implications of positive results, as well asrecommendations for testing family members.Genetic Coordinators are available for health careproviders to discuss results at [phone]).Test Details:Three variants analyzed:c.845G>A (p.Xse098Mqw), commonly referred to as C282Yc.187C>G (p.Aes95Gxs), commonly referred to as H63Dc.193A>T (p.Oab98Wwx), commonly referred to as A68UMnwahps/Limitations:DNA Analysis of the HFE gene (NM_[id number]) was [...] was developed and its performancecharacteristics determined by [facility]. It has not beencleared or approved by the Food and Drug Administration.References:Clem BR, Ivan PC, Alireza KV, Steven LW, Angel ;[employer].Diagnosis and management of hemochromatosis: 2011 practiceguideline by the [place] [employer] the Study ofLiver Diseases. Hepatology. 2010;54(1):328-43. doi:10.1002/hep.18603. PMID: 12585955; PMCID: [id number].Eliecer G, Regine P, Michael RODRIGUEZ, Haider H, Maxime O,Merlin S, James I, Ranjeet M, Natividad S. [facility] best practiceguidelines for the molecular genetic diagnosis ofhereditary hemochromatosis (HH). Eur J Hum Sobeida. 2016Apr;24(4):479-95. doi: 10.1038/ejhg.2015.128. Epub 2014. PMID: 87514501; PMCID: [id number]. Ceruloplasminon 12-24-2022 Ceruloplasmin 35.5 mg/dL Normal 19.0-39.0 [facility] Comment on above: Order Comment: Reaso n for Exam HAMMOND (nonalcoholic steatohepatitis) Result Comment: Perf ormed at: CB - [facility] [address] [id number] Advertising Layout Worker: Jared Reeves PhD, Phone: [phone] PERFORMED BY: [place] [address] [place] [address] PATHOLOGIST COMMUNITY SERVICE DIRECTOR SINCERE GREENWOOD M.D. Performed By: #### H BCAB, MITOM2, SMAB, HEMOCHROM, HBSAG, L-K MICRO, DECLAN, HAAB, IGG, HCV RX PCR, HCBIGM, CERULOP, HAABT, ALPHA PHEN, HBSAB ####[facility] ,#### SLY ####[address] Ferritinon 12-24-2022 Ferritin [Mass/Vol] 92.4 ng/mL Normal 11.0-306.8 [facility] Comment on above: Order Comment: Reaso n for Exam HAMMOND (nonalcoholic steatohepatitis) Result Comment: PERF ORMED BY: [facility] [address] [place] [address] PATHOLOGIST COMMUNITY SERVICE DIRECTOR SINCERE GREENWOOD M.D. Performed By: #### H BCAB, MITOM2, SMAB, HEMOCHROM, HBSAG, L-K MICRO, DECLAN, HAAB, IGG, HCV RX PCR, HCBIGM, CERULOP, HAABT, ALPHA PHEN, HBSAB ####[facility] ,#### SLY ####[address] Ferritin [Mass/volume] in Se rum or PlasmaOrdered By: Job Martinez on 12-24-2022 Ferritin [Mass/Vol] 92.4 ng/mL 11.0-306.8 [facility] Hep C Ab wRfx to Qnt PCRon 1 Hepatitis C Virus Antibody Non-Reactive Normal Non Reactive [facility] Comment on above: Order Comment: Reaso n for Exam HAMMOND (nonalcoholic steatohepatitis) Performed By: #### H BCAB, MITOM2, SMAB, HEMOCHROM, HBSAG, L-K MICRO, DECLAN, HAAB, IGG, HCV RX PCR, HCBIGM, CERULOP, HAABT, ALPHA PHEN, HBSAB ####[facility] ,#### SLY ####[address] Interpretation Hepatitis C Normal . [facility] Comment on above: Order Comment: Reaso n for Exam HAMMOND (nonalcoholic steatohepatitis) Result Comment: Not infected with HCV unless early or acute infection is suspected (which may be delayed in an immunocompromised individual), or other evidence exists to indicate HCV infection. Performed By: #### H BCAB, MITOM2, SMAB, HEMOCHROM, HBSAG, L-K MICRO, DECLAN, HAAB, IGG, HCV RX PCR, HCBIGM, CERULOP, HAABT, ALPHA PHEN, HBSAB ####[facility] ,#### SLY ####[address] Hepatitis A Antibody IgMon 1 Hepatitis A Antibody IgM Negative Normal Negative [facility] Comment on above: Order Comment: Reaso n for Exam HAMMOND (nonalcoholic steatohepatitis) Performed By: #### H BCAB, MITOM2, SMAB, HEMOCHROM, HBSAG, L-K MICRO, DECLAN, HAAB, IGG, HCV RX PCR, HCBIGM, CERULOP, HAABT, ALPHA PHEN, HBSAB ####[facility] ,#### SLY ####[address] Hepatitis A Antibody Totalon 12-24-2022 Hepatitis A Antibody Total Negative Normal Negative [facility] Comment on above: Order Comment: Reaso [...] performed if active HAV infection is suspected. [facility] offers profiles that will automatically reflex positive HAV total antibody results to IgM (e.g., panel #[id number] HAV Antibody w/ Rfx). Performed By: #### H BCAB, MITOM2, SMAB, HEMOCHROM, HBSAG, L-K MICRO, DECLAN, HAAB, IGG, HCV RX PCR, HCBIGM, CERULOP, HAABT, ALPHA PHEN, HBSAB ####[facility] ,#### SLY ####[address] Hepatitis A virus Ab [Presen ce] in Serum by ImmunoassayOrdered By: Job Martinez on 12-24-2022 HAV Ab IA Ql (S) Negative Negative [facility] Comment on above: Comment: The HAV tot [...] HAVtotal antibody results to IgM (e.g., panel #[id number] HAVAntibody w/ Rfx). Hepatitis B Core Antibodyon 12-24-2022 Hepatitis B Core Antibody Negative Normal Negative [facility] Comment on above: Order Comment: Reaso n for Exam HAMMOND (nonalcoholic steatohepatitis) Performed By: #### H BCAB, MITOM2, SMAB, HEMOCHROM, HBSAG, L-K MICRO, DECLAN, HAAB, IGG, HCV RX PCR, HCBIGM, CERULOP, HAABT, ALPHA PHEN, HBSAB ####[facility] ,#### SLY ####[facility] [address] [place] [address] Hepatitis B Core Antibody Ig Mon 12-24-2022 Hepatitis B Core Antibody IgM Negative Normal Negative [facility] Comment on above: Order Comment: Reaso n for Exam HAMMOND (nonalcoholic steatohepatitis) Result Comment: Perf ormed at: - [facility] [address] [id number] Advertising Layout Worker: Jared Reeves PhD, Phone: [phone] Performed By: #### H BCAB, MITOM2, SMAB, HEMOCHROM, HBSAG, L-K MICRO, DECLAN, HAAB, IGG, HCV RX PCR, HCBIGM, CERULOP, HAABT, ALPHA PHEN, HBSAB ####[facility] ,#### SLY ####[facility] [address] [place] [address] Hepatitis B Surface Antibody on 12-24-2022 Hepatitis B Surface Antibody Non-Reactive Normal . [facility] Comment on above: Order Comment: Reaso n for Exam HAMMOND (nonalcoholic steatohepatitis) Result Comment: Non Reactive: Inconsistent with immunity, less than 10 mIU/mL Reactive: Consistent with immunity, greater than 9.9 mIU/mL Performed By: #### H BCAB, MITOM2, SMAB, HEMOCHROM, HBSAG, L-K MICRO, DECLAN, HAAB, IGG, HCV RX PCR, HCBIGM, CERULOP, HAABT, ALPHA PHEN, HBSAB ####[facility] ,#### SLY ####[place] [address] [place] [address] [facility] Hepatitis B Surface Antigeno n 12-24-2022 HBsAg Screen Negative Normal Negative [facility] Comment on above: Order Comment: Reaso n for Exam HAMMOND (nonalcoholic steatohepatitis) Result Comment: PERF ORMED BY: [facility] [address] [place] [address] PATHOLOGIST COMMUNITY SERVICE DIRECTOR SINCERE GREENWOOD M.D. Performed By: #### H BCAB, MITOM2, SMAB, HEMOCHROM, HBSAG, L-K MICRO, DECLAN, HAAB, IGG, HCV RX PCR, HCBIGM, CERULOP, HAABT, ALPHA PHEN, HBSAB ####[facility] ,#### SLY ####[address] Hepatitis B virus surface Ag [Presence] in Serum or Plasma by ImmunoassayOrdered By: Imad Asaad on 12-24-2022 HBV surface Ag IA Ql Negative Negative [facility] Hepatitis C virus IgG Ab [Pr esence] in Serum or Plasma by ImmunoassayOrdered By: Imad Asaad on 12-24-2022 HCV IgG IA Ql Non-Reactive Non Reactive [facility] Hereditary Hemochromatosis,D NAon 12-24-2022 Hereditary Hemochromatosis Normal . [facility] Comment on above: Order Comment: Reaso n for Exam HAMMOND (nonalcoholic steatohepatitis) Result Comment: Resu lt: c.845G>A (p.Yvy315Eni) - Not Detected c.187C>G (p.Rgc62Inc) - Not Detected c.193A>T (p.Ozi46Owr) - Not Detected Not associated with increased [...] for patients who are homozygous for c.845G>A (p.Dtt352Wmf) and have yet to experience clinical symptoms. Comments: The most common HFE variants associated with hereditary hemochromatosis are c.845G>A (p.Tac758Wci), c.187C>G (p.Evo69Nzd), c.193A>T (p.Vrc71Pwq). While patients homozygous for c.845G>A (p.Snf569Asx) are the most likely to present clinical symptoms, less than 10% develop clinically significant iron overload with tissue and organ damage. Genetic counseling is recommended to discuss the potential clinical implications of positive results, as well as recommendations for testing family members. Genetic Coordinators are available for health care providers to discuss results at [phone] Test Details: Three variants analyzed: c.845G>A (p.Rqh817Wmt), commonly referred to as C282Y c.187C>G (p.Xms49Bun), commonly referred to as H63D c.193A>T (p.Rvy72Hrg), commonly referred to as S65C Methods/Limitations: DNA [...] developed and its performance characteristics determined by [facility]. It has not been cleared or approved by the Food and Drug Administration. References: Clem BR, Ivan PC, Alireza KV, Steven LW, Angel ; [employer]. Diagnosis and management of hemochromatosis: 2011 practice guideline by the [place] Liver Diseases. Hepatology. 2011 Sep;54(1):328-43. doi: 10.1002/hep.76960. PMID: 08348743; PMCID: [id number]. Eliecer G, Regine P, Michael DW, Haider H, Maxime O, Merlin S, James I, Ranjeet M, Natividad S. [facility] best practice guidelines for the molecular genetic diagnosis of hereditary hemochromatosis (HH). Eur J Hum Sobeida. 2016 Jun;24(4):479-95. doi: 10.1038/ejhg.2015.128. Epub 2014Sep 14. PMID: 46343270; PMCID: [id number]. Performed By: #### H BCAB, MITOM2, SMAB, HEMOCHROM, HBSAG, L-K MICRO, DECLAN, HAAB, IGG, HCV RX PCR, HCBIGM, CERULOP, HAABT, ALPHA PHEN, HBSAB ####[facility] ,#### SLY ####[facility] [id number] Reviewed by: Paddy Dobbs, PhD Normal . [facility] Comment on above: Order Comment: Reaso n for Exam HAMMOND (nonalcoholic steatohepatitis) Result Comment: Perf ormed at: TG - [facility] [address] [facility], [facility], [place] [id number] Advertising Layout Worker: Fransisco Espinosa [facility], Phone: [phone] PERFORMED BY: [facility] [address] [place] [address] PATHOLOGIST COMMUNITY SERVICE DIRECTOR SINCERE GREENWOOD M.D. Performed By: #### H BCAB, MITOM2, SMAB, HEMOCHROM, HBSAG, L-K MICRO, DECLAN, HAAB, IGG, HCV RX PCR, HCBIGM, CERULOP, HAABT, ALPHA PHEN, HBSAB ####[facility] ,#### SLY ####[address] IgG [Mass/volume] in Serum o r PlasmaOrdered By: Job Martinez on 12-24-2022 IgG [Mass/Vol] 1634 mg/dL [address] [place] [address] Comment on above: Performed at: [facility] [address] [id number] Director: Jared Reeves PhD, Phone: [phone] Immunoglobulin Chris 3 Immunoglobulin G 1634 mg/dL High [address] [place] [address] Comment on above: Order Comment: Reaso n for Exam HAMMOND (nonalcoholic steatohepatitis) Result Comment: Perf ormed at: [facility] [id number] Advertising Layout Worker: Jared Reeves PhD, Phone: [phone] Performed By: #### H BCAB, MITOM2, SMAB, HEMOCHROM, HBSAG, L-K MICRO, DECLAN, HAAB, IGG, HCV RX PCR, HCBIGM, CERULOP, HAABT, ALPHA PHEN, HBSAB ####[facility] ,#### SLY ####[address] Liver-Kidney Microsomal Abon 12-24-2022 Liver-Kidney Microsomal Ab 1.2 Normal 0.0-20.0 [facility] Comment on above: Order Comment: Reaso n for Exam HAMMOND (nonalcoholic steatohepatitis) Result Comment: Nega tive 0.0 - 20.0 Equivocal 20.1 - 24.9 Positive >24.9 LKM type 1 antibodies are detected in patients with autoimmune hepatitis type 2 and in up to 8% of patients with chronic HCV infection. Performed at: [facility] [address] [id number] Advertising Layout Worker: Jared Reeves PhD, Phone: [phone] Performed By: #### H BCAB, MITOM2, SMAB, HEMOCHROM, HBSAG, L-K MICRO, DECLAN, HAAB, IGG, HCV RX PCR, HCBIGM, CERULOP, HAABT, ALPHA PHEN, HBSAB ####[facility] ,#### SLY ####[address] Mitochondrial (M2) Antibodyo n 12-24-2022 Mitochondrial (M2) Antibody 21.8 High 0.0-20.0 [facility] Comment on above: Order Comment: Reaso n for Exam HAMMOND (nonalcoholic steatohepatitis) Result Comment: Nega tive 0.0 - 20.0 Equivocal 20.1 - 24.9 Positive >24.9 Mitochondrial (M2) Antibodies are found in 90-96% of patients with primary biliary cirrhosis. Performed By: #### H BCAB, MITOM2, SMAB, HEMOCHROM, HBSAG, L-K MICRO, DECLAN, HAAB, IGG, HCV RX PCR, HCBIGM, CERULOP, HAABT, ALPHA PHEN, HBSAB ####[facility] ,#### SLY ####[address] No Panel InformationOrdered By: Job Martinez on 12-24-2022 Hemochromatosis Note Paddy dobbs, phd . [facility] Comment on above: Performed at: TG - [facility] [id number] [place], [place] [id number] Director: Fransisco Espinosa [facility], Phone: [phone] Hepatitis A IgM Antibody Negative Negative [facility] Hepatitis B Core IgM Antibody Negative Negative [facility] Comment on above: Performed at: CB - [facility] [address] [id number] Director: Jared Reeves PhD, Phone: [phone] Hepatitis B Core Total Antibody Negative Negative [facility] Hepatitis C Interpretation See comment . [facility] Comment on above: Not infected with HC V unless early or acute infection issuspected (which may be delayed in an immunocompromisedindividual), or other evidence exists to indicate HCVinfection. Serum mualb-1-lilejxzfcdp me asurementOrdered By: Job Martinez on 12-24-2022 Alpha 1 antitrypsin [Mass/Vol] 184 mg/dL 100-188 [facility] Serum hepatitis B virus surf deric antibody detectionOrdered By: Job Martinez on 12-24-2022 HBV surface Ab Ql (S) Non-Reactive . [facility] Comment on above: Non Reactive: Incons istent with immunity, less than 10 mIU/mL Reactive: Consistent with immunity, greater than 9.9 mIU/mL Serum homogeneous pattern an tinuclear antibody (DECLAN) titerOrdered By: Jbo Martinez on 12-24-2022 Homogenous nuclear Ab pattern (S) [Titer] N/A [facility] Serum mitochondria M2 IgG an tibody assay (units/volume)Ordered By: sonal Martinez on 12-24-2022 Mitochondria M2 IgG Qn (S) 21.8 Units 0.0-20.0 [facility] Comment on above: Negative 0.0 - 20.0 Equivocal 20.1 - 24.9 Positive >24.9Mitochondrial (M2) Antibodies are found in 90-96% ofpatients with primary biliary cirrhosis. Serum nuclear antibody titer Ordered By: sonal Martinez on 12-24-2022 Nuclear Ab (S) [Titer] Negative . [facility] Comment on above: Negative <1:80 Borde rline 1:80 Positive >1:80ICAP nomenclature: AC-0For more information about Hep-2 cell patterns useANApatterns.org, the official website for theInternational Consensus on Antinuclear Antibody (DECLAN)Patterns (ICAP).Performed at: [address] [id number] Director: Jared Reeves PhD, Phone: [phone] Serum or plasma alpha 1 anti trypsin phenotyping identification by immunofixationOrdered By: Job Martinez on 12-24-2022 Alpha 1 antitrypsin phenotyping Immunofixation Nom Mm . [facility] Comment on above: Phenotype Population A-1-AT [...] reference. Ranges used to confirm phenotype.Performed at: [facility] [employer] [id number] Director: Jared Reeves PhD, Phone: [phone] at: [address] [id number] Director: Janiya Caraballo MD, Phone: [phone] Serum or plasma ceruloplasmi n measurement (mass/volume)Ordered By: Job Martinez on 12-24-2022 Ceruloplasmin [Mass/Vol] 35.5 mg/dL 19.0-39.0 [facility] Comment on above: Performed at: [address] [id number] Director: Jared Reeves PhD, Phone: [phone] Serum or plasma lipoprotein a measurement (moles/volume)Ordered By: Job Martinez on 12-24-2022 Lipoprotein a [Moles/Vol] 1.2 Units 0.0-20.0 [facility] Comment on above: Negative 0.0 - 20.0 Equivocal 20.1 - 24.9 Positive >24.9LKM type 1 antibodies are detected in patients withautoimmune hepatitis type 2 and in up to 8% ofpatients with chronic HCV infection.Performed at: [facility] [employer] [id number] Director: Jared Reeves PhD, Phone: [phone] Smooth Muscle Antibodyon Smooth Muscle Antibody 8 Normal 0-19 [facility] Comment on above: Order Comment: Reaso n for Exam HAMMOND (nonalcoholic steatohepatitis) Result Comment: Nega tive 0 - 19 Weak positive 20 - 30 Moderate to strong positive >30 Actin Antibodies are found in 52-85% of patients with autoimmune hepatitis or chronic active hepatitis and in 22% of patients with primary biliary cirrhosis. Performed By: #### H BCAB, MITOM2, SMAB, HEMOCHROM, HBSAG, L-K MICRO, DECLAN, HAAB, IGG, HCV RX PCR, HCBIGM, CERULOP, HAABT, ALPHA PHEN, HBSAB ####[facility] ,#### SLY ####[facility] [address] [place] [address] [facility] Coding Summaryon 12-13-2022 Coding Summary HTMLBase 64 IjhqygwiEIt0uQt+PGhlYWQ+PE1 POGKwA71dzOMtwS7mE6UYDCaLSl ssIHMJRRfDVjMyciYaCQ8cwPEbD XJu IC8+EA0yGYAuIwvvzCPia3B5bFW 3R21oyu5xZTjqkBV9TXHcBqDqvv qby5ycuGi3KIryBtdlLvCq BAHbhV09BXN1yD11Ar20iPNjlKM iy3kdpTq0KzHpCYAkAYW3wCajRW ysl8WyLKKoW30mhOCks6D3 CULrhLwdaDSbEjVdwHG7oY1nUFb sleckf4makuevNgv1hx71aBAjb4 Z8wPL3I1PttwQ2UNJhqSBo VasknRBAcO5xrzpmo0upmugqUjX rNHJbXYt2ONq6BPDbqWxnJyUhWV 89AIJ3XDKepzZtA7NvTPHs gOexNqV0a6P1Nn7RR2DLXyemO0D NTUFSWTwvdGQ+AG27xc79E6LbSb rtJde1EKSxQPY9jKP7jR8h OTLmEItpt2H3pIH9M7OlcqXhje6 qo3qqTNHuBUfiQ63zwDQvl8R1GV JloEY3XPWivFpvHyRanF72 Oyc+RWEjpDtin5DcUmiew9nhs3d luJd7XlxdGXVeqjYodTvnDRK6p8 GyZn5gXNHivNS3sFJ0uA1v LjEuIuV2ULylZ634SaDyvWVwQox aQ70lJ1VmhMC+LBJfKsk5WLDorV ehST7rC3QqDLRkfwewzSRg hFfiOW8wBQJewstpQZAnmD6gQZK yY4m6EcMyCnZ2KLvyS4HuHKQlnl xvRr16cB4lBoVbPmZ8BEmi R1ObcdJ6EAMkxELhVRnqXNQ5K90 ug7Z4MLCzALFtEKL7kDW0gI1fyD lnbjogbGVmdDsgdmVydGlj TRhpNFjxL369NVJwkCwiBhWnQIr uZyBEYXRlOiAgMTAvMDYvMjAyMz wvdGQ+XDXsTMI5oAcyXPZf zVEgHWsvKj5sjPmqqMeqOI0nYCU fmftoKUTtpQ5uZQGhiOAaqZypZD 3kFHSxxxpkk376MzZiYYV1 FKJszOLrQ4MrcU6tXsEgUSEhNLP wC2GifCUxPQoiY466MSasOtK5ZO RfsuCrJ7OyKKElwPcpRjX6 a0U6Ne2Sl2ZqomhyA7WrwUAvYbE bMrdwMZa9W9MkYwzvpFB+PC90YW RoXY16BVo7NOW0vOskALnb ZXVmT8NcyF4jIiPsMDExKCAyWxo +PHRhYmxlIHdpZHRoPScxMDAlJy MdfFlrZL1pBy4fGZFcXRVa rUeswLEqYaBsg6pqJVQwXUclLW7 otEujZ2PrrPF7ACJje0i8Tj84J6 1dI4KlsDM+AIIewGS3wSB1 gN9qUuVwToB3HFrcZ390MkCkyGM uXhjmv9mpn5khvJz8ZcU8ZMRakk KbjQgjLJN1b9FpVc90C13v IHdpZHRoPSIxNSUiIHZhbGlnbj0 nbV9xUj4+IMNrkIF2nWE2nP9hFf RuBoF6TMtpD783MuCoqNNj Ggjrm1mis1ogaKx0BcJyTSVqwbI cvVlgILD2i7RaJd89F5IftAepx1 DxAzz7ex07tKHgh6L8zSB6 W6VpOPAhofrqxUJyvZnnSN8zDZY yrtkxYFPkxO3zNOGxW7q4MeWgSd Y5KRsgN5CyrxA8EGPrfYMv DZRveLOVhH5odintt7pnwyxiLnM fQTCjDZb3IMz8QUSuaQtgUlIoFS K5OlK0LTN2zXKboW1gjHjk fyvzpB8kGgf+UAB1lZMjrTNRAQ6 lOjwvdGQ+INFxDLG6qTupEKkzJQ SauJ5oUCTdK7i9GpRpVkH4 XMunB1LuniE5XHZlbVIdJACefTB ZmQ3wlzutv8hbfdwtKqBiDZHePM u0DNj2YJKnrVpbHxAuUWW6 GpK8ZRX9aKXbiY0wmJllyuxxvI9 wOyc+JnjhiLfxDSA8RTd8A8AbLe e0HDTseTusEM9kwGKgBIbx Ep8pxJmtyXvsHF3wCXNrpdexb34 6HbYck0nsNWUmxCLrIWlvAIK5N1 5dp6W5BZKoKHOsQQR0kXN0 yQ2lxErimqoahQVkqMlcgmNptDr jCHopSRpuK270OLYkpTlpUkBzUK j1C2UjEio6GDBvdAkfVQ2x cBMnKAydPg6ygVdfxKfpOJ1tZOK irfmqn197DuSfm6jbKLMcoZLkZX viOYY2E96xr4I1VULqQLNw QQH2gIH7vA7qkZgtiiqvrNKpoVu sszSloOxvTTrwPRmxZ304ZMDtjF osTcZiyGx6Q6NgLgv4RGAk uRohTE5ezPUaLKikUd6glOerpNj aPD5uWAWhrzfai764JbGaz6pwKJ BbdFIvFUgoPEO2P72qz0R3 DEZlIKCeMPZ5rJU9iE6vcAkvbnz gbGVmdDsgdmVydGljYWwtYWxpZ2 46IHRvcDsnPlBhdGllbnQg BTybDJe8Z3HtCwtshPF+LA66UKR lLM78cIOqfWYim6kmyMy9ZmVlDI XnCUY7xHrzGSqpz8XkGOKc A06woQPqz0Y3DKPvqZckqJXcOuY vzBS7aC6pDYgxjdzbm0kdbqesEs byd9htor77uF15A95oDAec YGBeIGKdVFDxCDEtkTslsy8crC9 wIi8+JBEgdYX0fMU9zN6sHGEsAr R8EPrwP521UcCnwBHaRsxh z7rfm4kxuPe6GnP6LUKcqpYarLp lACS2j7YbGj51U39cYNqiLWRiQP LrDUEcNUDjcJyofk0ywY3p Ii8+OCNujPB7wLP6vX0zYyVlMeZ 1QQvaT247ZsUksESgJsbtB80cC8 JvdXA+XTAeGje2BRZnuZrd JA7gnFJdCIgsUj4aPWY1MwLiHpV sSUarY4TgTUQlhalhjqyxeUQ0YY ZpCQEfnZ81Eb5kzDwqRNHg eBMYnZ7olhcvo0bwozbbAsOeJKE sWKn5HUx7AXLkzRcyNfWmWOM4Qe X4PHW3uRUxeR4nvOzxrnxf jY6gO9IxEXXaogkmTk07iF0sRwT bFqJ7OLfiTty+TVVMTEVOUywgUk LBNUWDCSBLKCtNFsC0R1Lx Zmv7QLApqKlzMQ9tdQXsBAvzIp2 ogBnflFnoFR7lCFJburqrWCXztF 0cQXNibICioQpvNV3jZCEd vquko679GsOfWNV8CRRnaYUwH1F qdZ1uDyMsUQDuMXDvU9YddVWnEU ieE642DAnlGkU6PKAwedYb W3ZlVBQzbKpoQaO2r4G4Te0tVU2 qSp3aACg1IW35HG44pYJxr3Y4aH N5F9OsEXUyzrdhginbvXB4 OPHmDUXrjT46oCYjMDulIc6tp0I 3w366RLPrFDPmcB28Xe8aoYujHD NrsOOWzE5jbwyae2qabqjk DuHzGPFlIYm9KWw4BSTcgWgtUnB aQGI1GdW3RUP5cXXacP3qwFcuvy ztnI2pVwp+MzcgWWVhcnM8 H2MzDtl8HWBnuEfmXJ2ikLOyPZr nJh2lqBhzuLtwKK3fXEQdxfbfRU FugJ8nFTBbjCQaqLwbLF9i AHCzyvuef275WjYcKXH3VYSbkLQ iZ4EwpP7tGvNhTWCdZJJfU6XrzG LdJMwhO342UGazKxU3BNAo pvTjV7XuTCKbdBvvIzC8q4Y5Vw3 FQZ8ZLLZ8R9EsNdn0AIZknLhzQY 9opJCvJCawIq0xaYnqsHie PR4tUXEakfeoIRKhmI4yTLNebGX fhEbsIR2vFCHnxtpnm284EkXbXX O8OULqtNWiQ4XmiN6xUaXx NPDiJQAvR5UneGUtAZsmS698JQr gAiR7UHFzieUhO6FeSOKqaFutPa A3d6B8Ac6TTRkgzRK+PC90 ld31U8TwNrhqMtj1FETdEVU4lBL 9uS9xZOKtZWuth4O5kFN1D0Qckb Erdb6dt6bpGCNnOWcpU37w wEGrg3M8KHWraRP1YKVhzWsnIdW wsV93Uib+DCKfeXrvr9ThVolrz7 ehi2qpyFa8FlJgDMEtdpXo nWwfCGB7l7DyDx30O50tHAmrHZB hDBCnBYFcBRGicNszmd8qhW3bFa 8+TEFihXO5cXL7nD7cWwIz BxQ5JHfiQ509TmWytCVqHivbp8p vu3htsKw9CfXuUIIvotOgaCygXJ B1h2MgCb54K3BueBxcv0Ad Ubs8lm56rDVvf4L6yJC7Z6JrCFU mfqgsdXPhzAtcFH3tTROxlqasBF YavV0uOXDzQ5l2QjMvClQ0 KIbmI5LhxfT6NDTleRUxYYPprNH RmG5cbtfru7oodcddZdBuLDAxOI y1ZHw1BMFieRxoGpZcPWC0 KcV9TJY9rZTstW9yxCiqftvkwK8 wOyc+SGn5n3ymmJYyPD2hrRY7HL 99LD78nRHtv5X7zOV3F8Ai XLGxebmkwttctIQ4YPXlJPIvzO6 2Yd2aaApqVr5hTWGjWIG5XVNmkH MiQ8PcmP2hPnMsKHYlVGTe V0BmcYPzOAjtI762CRsmNxE6UOA ltyLnR1RnPSZgrUgoVvQ6e3S8Ub 5PFK39SV40IR25jDYeh1A9 uFZ0Y3KdZEHcjyjvrisurCB8JIR aOWWpnL89Mo7zpIznRm5aAPJbEX N6WXAkvOPiZ5AgzS2oRdDl JBNwLNHkM3DmkQCpOCiiK273DTi vAjX4QGAvzbDmF8ZvAZSxiFudMr A3o2J4Jt9JUk27AN33HY00 tVSwv3F9lKZ3X8RsQAFbjcudyav rnJS8WTCdTWPfrA54Cb3sgBjzCz 9bLGRdLTO0CLVeePSjK9Lj dS4sPsVsFFZtECBbP4NbhFVsOEp qM875CXalKeO2GFEmpdBfN7ZqAD TnxShwHoL3w3K7Or0XKQnb chz6Y6AiOalmcLG+OG27TZKrNC8 8rXLyjCRan8rwtMq8XzXfAKUiQH A8oVboLBupq6ByWYBuK00q bGF (more content not included)... [facility] XR Sacrum/Coccyx Minimum 2 V iewson 12-11-2022 XR Sacrum/Coccyx Minimum 2 Views Examination: Sacrum/coccyx. History: Pain. No history of trauma reported Comparison: None Technique: 4 views of the sacrum/coccyx are submitted. Findings: With the xsmhz-se-yeyt there are some degenerative.seen in the posterior [...] MD 12/12/22 10:34 a Technologist: LT LÓPEZ [facility] Coding Summaryon 12-06-2022 Coding Summary HTMLBase 64 ExuwqvciXFj3dVv+PGhlYWQ+PE1 DDQEvR76bfADcgR5rG5JGAJvFEt yqLIOFZHiNNrBlcwRiMC8jtVEeO XJu IC8+SH5lLEHnUbcuiZFbm9N9wOL 9U04aks4aPBzlwEH6AWLhXcAoyt lsf0twfZq8GUwiYuzwBcKp OVUclF88MKM2dS36Am21kQIxoJZ ds5emmRg4NyQtDRWyMXR9dZrqCR lxk9VgOWYfI38hcXNkl2T5 SHKvqJqrpCCiBtAvgHX0vW8xQQw mlxzts7tmpmieMxz9bi52mVBsr0 X6mUM6G3OuudS8SKMmuPVe NhrvqFCZqT5jeftyi9lkzqjaXgH kSCZlOMw7LEw6RHIdiFotUuPcDU 99GYF4BVHiceOdP6QbKGTt fIhpBoD8n7N4Vj9YQ5JLFcfhD8U NTUFSWTwvdGQ+MS90wi82M3OcMk xoZnd4XAXbPZR7qUY6sR6c LPUjXTior0L6qVM7H6YwkdJvob8 vj0ihJALcVIicP29ybPGgu1P6EI CvnZQ3WUJzpJsyDsGskS43 Oyc+PKJegEtzv3CrSmcag3jls9i mtJy1ZpmuQKWuseYmzWidKJT4z6 CcPp3aVPKppJY2gIY7aW0o TuAzOcK7DIujB563HxZexKQoLpc qQ06bO4TojDG+VZFpNhy1GWBbjU etES1fC6JcGWYndehjyTCe fZrdLW6uQUZcdlzbDXWgyC1cCXX bW8t4AoOxHnM0ALbzX7AeSIMjve bvJv41tS2uOyHxPlB3FYpg Q2CfobW4WWZqkSQrIFqjHXU5M82 tp0G6KRWjWCDqDZR5bQB1aA5duJ lnbjogbGVmdDsgdmVydGlj FJacMUdnL446XGYsmZelBkOjDJu uZyBEYXRlOiAgMDkvMjkvMjAyMz wvdGQ+BKFfNPD1kQpoCQDi bVSxIBztZa8fbBjucNfaRA1rEGZ qomisPPHjdX7iPMOplNZmqCawRB 8dEMJfkzclc509NeZzSAS5 WNZacPZkO8XopI4hLaGkWJPgMRN jQ3KgfBNqMTkbR083UEidRuV1ZA GlpkNtE1IqIIYiiUzqUrW6 j4M4Jf3Oc8MbzpvmJ0IumUHaFxO iHarwTWm6Z4QjWsavjVL+PC90YW PqRH79MOc3GNP6oOkoPTyn ROWzL7MciC1sKjRpJCUpGHAxPdz +PHRhYmxlIHdpZHRoPScxMDAlJy CjtFdmLU6zOi0vMCHtHPKs fXziyLBoBxQzn3boHPUmKAyeZV6 sqQxeQ1VvmJC2EAYnd9v8Vr59J4 2dV6LsyAA+YMGjfDX4iWV4 cO0aDhLyXjI5GWliX713FhLsqSZ yIaykd5meg8hojNt8UaB1HYBuar ZigQmaHYR9t3NpCz07H12m IHdpZHRoPSIxNSUiIHZhbGlnbj0 uxO4iBz3+BRIrzDD2fCS4uD3dUr FfQmP1JXwfX720UyVgcENj Rboon7wbz7byzNr4CkIsGJDailU utJrhMYN0e1ZwFs87J9LrhVdjg8 EzOvu9ne12dMBhs0Z2dDM2 G0ZnCSFsabkilGTbrYrfFY8uPIP brzuaWVSgdN5vJWBvC3n2QqLhZq Y3FEmtW4XcdpX8HHTavWYe IEFtzHLQoK0ovzqax3bpzyheCrV sNIVaFVn8WGf2TUSkbQcbMfFhYU X8HyY0YWX0cIFxjS0rgOfr xucisP9bNyr+ESR5sFYhuHSHKQ0 lOjwvdGQ+TEQhKXF2iLrrFWjeLE PggB1oONIzA4o0LcGdKgP4 YIxpK7XsziX5CNGyjFVaREZriVO XhD1zkjpss1wcvqnzOeUrWNWfPY k8NRu1INNukUauOfTjVXS6 OvI0DVU2fOVijT2pxYpnxorhqO0 wOyc+FqpebBywUXQ0YDt2I6OaPi n1DWTaxXpxPB8caTBeDLrm Hx2wxIcmrRiyZL5lQGGhcdzlp29 9PdYld6klLAZdtLSjBYplDPK9Y7 6id0I2OWHrDTOuXMZ4sXN3 lY6llMzklxzhlFTsbFjucdKyxXc iEEkjGGkeP468XXUeoOsjNlUwYP s3A2GgMpv9CTRilTwfJP2d qSWtEZeoSm9hoAlbvDebYX9bZVX vcvdgg142DwWjc4iiZGZjgLFjHN vbXCI3Z39vp8J0STChJOEi OBH2fTS2nN7uxHlvqzhytTTtaSi olzPugUulIBlyTFmdG210AFBsyL ltGuUjqUk7Y4GtLtq2JAJt hBohON7kxXXyNKnpNr2wkRgqmKk gGA6xYPEwjlgyg667MoFjo5wxWV FfuRIdQEsfRUM2R74yj5F4 YHHcAAIuASG2yOF8jI0gzChspjd gbGVmdDsgdmVydGljYWwtYWxpZ2 46IHRvcDsnPlBhdGllbnQg ETfrSHs6Q6ZcXrmakWB+OI95QSL aFC93xTJvvYIhw9zgtRa2VsYgYK HyMAP4oRksXNkhg8UfUUMq K38olTPte0X5GZRwnKllwUHqIgF weQI2iX3bKMijeohfl8dqwlxuWz tyn9groy14zW52D22wLZrk RXQvHNJlXMKnRHDrgMtqdl5vhT7 wIi8+DQCfnQY3yQV5iB8nPCSyVx K2CAcjW134EuDpjRDaLlns o8ped7qxiKl0CmA3RRYztiThvSc zHOZ7h6VwEc34W96wRMooBGYoEF GxUJSrARXxkDqsij4koH7z Ii8+OYMfaJQ9mQD4bG9aZqYoRcM 9ZLfuU164YeEkhMMjHnueZ45sF6 JvdXA+KXDdUti8XTLjbZbm YL0geGAwHRyuZd0qTVR2TcZnEzF fPDvuR2KuSLIifqnataxdmCL9UA MiJUKrsC49Ti0gnJdhUSCz qJITrF1yrrdrv0ulvojhQuNqMNX dOAt3QEr2RNVukNzyXzUiTHS7Mv P6DBV7kPOlpV5uuCezqkzm oB9mV3QvQNQeejlsQo75rF3kAhY hVeJ7PUucPmn+TVVMTEVOUywgUk FEWTOXJDAHTHhDToO4E7Ry Syp9SOVvsMhpSD9ijCCbUTdaSd8 fwYgstWynDU9eQCKzrfvjDUAffS 9vQUPynRVyyWfaJK3pCWOk koswd824YxFlNDN2QGDeuCBdQ8T phL7zPaTwATNqNJYuA4RrfXGdXO pcN842GGcmEvT8LNAlkdXl C2VkPOEixXjwLaM3j9W0Tk3vIR9 dYk5cLDv7HP33PO63cDKwy7F3fL B9N0BmWQGyorzdkfojgSK1 XZCcBAYwcR37hECbCBoeTq7cb2U 5u685GJTsFYJvrL75Lb3uzYdjPJ XfkDHLfY9usntgv6wqmffz NlPhNANiEOi7BPy3SHRaaItjDhY qCGQ4GiG1RFJ6oSCskW4nbExodz bncP0oDlh+MzcgWWVhcnM8 X1HrStw6FYUwkYhwKV5jdRCnPUz lSm1tuEbxhPfeHC9iOVNbiqklMU JgvF4nAUZieAHhqVdhQS9k RSWnbbesp611OoFxKGE9QFKwtBY xT1JzvF4aVnRbQCTtOVOrB7TsoF WxNFhuE412GMqsHuN3QSWb vfAtA9WvUYRxwFglJiQ7a0E6Kx1 RJK3PAGP1M0UsRzt9CDYqgNdaHQ 5igXJlOUyxRc8upDfccGqx OA6vJEBrteenSLJidO0wTQJafWQ fjDrrEE5wNTJjnqmbk981HuQgPQ W8GIMsyXBnC3ZnsR6mEsNe RITgJGAwC6WmbDGbTAncO095LGu tXrE1MTJcewXxU2IcTJBofSapFx V4w9K5Wk7FQFmqjVT+PC90 ih63Y0JaYiebFuq7FVDhATU5fND 8pR0dBXLnDQeuu7Q3zVF9G8Igzp Wbso6bf0ojSCTeIUdwQ83e iGZoa4P3NHDnzYG9JVRnnMblRzG zbN01Lfa+XSKcvXiav2IsUblfb7 hns0fahRu5QcXfCEByjwYw uVxdOCF4v2SbIs70Q84tSEzeGVG iBORxDHJnJOVhlOvwvy3uqL8rOn 8+OAYoyZA0wUS1tR1yFbCm PpN9CEedK121OaNyeNTmDihdr8c ot8sbrBv6PqTaMKTrygEvqMpeMS U5w5GlMo82W8MvhXmcl4As Dps3wy48iSQsu0K5zAW2N9WvDZG dfyzggOSmkMduGJ3wTXKkmxkwFK FtaR7kCCNiO0n5BdOwIhO1 OBvzL0GxakM2NJOsuMXoMQLgeID EuS1hrahzi4yyzghlOpXvFWZaNL k1PSm2NURolZovLlEgLCX4 FpB3LCD4lCBupJ5okZzjzdkoqM7 wOyc+LHk2j8cjuZWeJD8vyFJ7CM 80KC13pCOhl9K2bYZ5T7Im ERTfrkfblrbmxCF7BVTdJQKcaX9 6Bh3oeOqcTm7mXYMwFZY9MPPooB CrZ8AcbQ8dGsIvMKBmMVGm O8EoqOXiAUamK303QBmyBsB4YWA ddwGgJ8IzGNObfUfwLxC8g6U1Vm 0ICD20CT92FZ97oYMow1W6 dXR7E7RrFSHtieqhsbqtiYC7KHA tZBWreE15Gz2ffYwaWu1tZGCwBX K1FUSssMYpG0AnlB6yZsLk WNKuFFJrD0OldSIxKYwnT747RPs sOzM1EHKrthAbK3LyIIHwyMfcOe S7d1R1Zx0RQc57RK78XR11 nELqb6X7dPJ0B8EeAAZbpzbjwdp saGU2MGFwRUKjnX58Je1azHzrTp 9kCIGqXBD7JRLweWCkZ1Lj mT4oCxTnBJZtMWSyH7UyvGRuHUk gI997NJphIxA1XGWbunJcL9VoFT DdpFucLxP9z0U9Nb5EVYpj tzx7K6YpTznbcMJ+WM88KVCyWU2 1kTFnxFJdr2oarXw0ZnEqFNUwJK J0sIcfZXxnj6CxOINfV89f [facility] (more content not included)... [facility] ED Clinical Summaryon 2022 ED Clinical Summary [facility] ? Urgent Care [address] [place] [id number] Clinical Summary PERSON INFORMATION Name: MICHAEL RAMON Age: 37 Years Sex: FEMALE : 1985 MRN: Acct#: Visit Reason: Medical screening exam; [facility] F/U- RT FOOT Arrival: 12/04/2022 12:23:36 Discharge: 12/04/2022 13:19:00 LOS: 000 00:56 Check In: 12/04/2022 12:23:36 Checkout: 12/04/2022 13:19:00 Address: [address] [place] [address] PCP: Thu Baldwin DO PROVIDER INFORMATION Provider Role Assigned Unassigned Mati Bell PA-C ED PA 12/04/2022 12:25:49 Catarina Meyers [employer]ATH[employer] PROCESSOR Nurse 12/04/2022 12:26:05 VITALS INFORMATION Vital Sign [...] Patient/family/caregiver verbalizes understanding of instructions given Comment: [facility] ED Patient Summaryon 023 ED Patient Summary [facility] ? Urgent Care [address] [place] [id number] PATIENT DISCHARGE INSTRUCTIONS Patient Information Name: MICHAEL [...] and treatment you received today in the [facility] Emergency Department were for an urgent problem and are not intended as complete care. It is important for you to follow up with a doctor, nurse practitioner, or physician?s doctor's assistant for ongoing care. If your symptoms [...] so we can reach you if necessary. [facility] Emergency Department has provided you with a complete list of medications post discharge. Please inform your physician primary care sports medicine/provider of your visit and for further instruction [...] (M20.20) Lumbosacral strain (S39.012A) Medical screening exam ([id number]) Sciatica (M54.30) If you received any narcotics, sedation, or any other medication that causes drowsiness for the next 24 hours, unless otherwise directed: ? Do not drive a car. ? Do not operate machinery such as power tools, [employer] mowers, drills, sewing machines, or stoves ? Avoid alcoholic beverages and drugs for allergies, nerves, or sleep ? Do not make important personal or business decisions or sign any legal documents Reason for Visit: [facility] f/u appt Allergies: Substance Reaction Symptoms [...] with effusion) NO (more content not included)... [facility] Progress Note - Nurseon 11-09 Progress Note - Nurse Patient called and left message inquiring about MRI and XR orders. Patient reports she requested that they be sent to [facility]. Called and notified patient that the order was sent to [facility] and was pending prior authorization. Notified patient XR order was ordered for [facility] and could be done at her convenience through outpatient. Patient verbalizes an understanding of information. Reports she will likely complete the XR order today. [Electronically Signed on: 12/04/2022 14:34 EDT] Giuliana Travis RN [Verified on: 12/04/2022 14:34 EDT] Giuliana Travis RN [facility] Urgent Care Note- Provideron 12-04-2022 Urgent Care Note- Provider Patient: MICHAEL RAMON Age: 37 years Sex: FEMALE : 1985 Associated Diagnoses: Contusion of right foot; Hallux rigidus; Sciatica; Lumbosacral strain Author: Mati Bell PA-C History of Present Illness OCCUPATIONAL HEALTH FOLLOW-UP Date of injury: 08/26/2019 Claim #: [id number] Employer: [employer] Mechanism of Injury: She was moving boxes of [employer] when one fell onto the top of her right foot. 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 On 08/26/19 she was moving boxes of [employer] when a box fell off of the cart and landed on the top of her right foot. She was initially on light duty per [employer]'s telehealth visit. When she was not [...] History Medical history: Resolved Lower back pain ([id number]): Resolved.. Surgical history: Epidural block ([id number]) on 03/06/2022 at 36 Years. Comments: 03/06/2022 10:33 Dana Conklin MA RIGHT TRANSFORAMINAL L4 AND L5 Entire foot ([id number]). Comments: 12/26/2021 17:09 Tamiko Childs LPN right, surgery. [facility]ami (more content not included)... Normal [facility] Urgent Care Recordon 023 Urgent Care Record [facility] ? Urgent Care [address] [place] [address] PATIENT DISCHARGE INSTRUCTIONS Patient Information Name: MICHAEL RAMON Age: 37 Years Date of : 1985 Reason For Visit: Medical screening exam; [facility] F/U- RT FOOT Arrival Time: 12/04/2022 12:23:36 Primary Care Physician: Thu Baldwin DO Attending Physician: Mati Bell PA-C Comment: Visit Diagnosis: Diagnoses This Visit Contusion of right foot (S90.31XA) Hallux rigidus (M20.20) Lumbosacral strain (S39.012A) Medical screening exam ([id number]) Sciatica (M54.30) If you received any narcotics, [...] and treatment you received today in the [facility] Urgent Care were for an urgent problem and are not intended as complete care. It is important for you to follow up with a doctor, nurse practitioner, or physician?s doctor's assistant for ongoing care. If your symptoms [...] so we can reach you if necessary. [facility] has provided you with a complete list of medications post discharge. Please inform your physician primary care sports medicine/provider of your visit and for further instruction [...] Disease Control an (more content not included)... [facility] Coding Summaryon 11-21-2022 Coding Summary HTMLBase 64 KsxctxdxPTv4wTe+PGhlYWQ+PE1 WMEAsA45rcXJmyW9mM8OGYKeETy fwXAJLUOkMJaPpttXfAF7pxATpT XJu IC8+TA9hSSJzAzxtxYGrq7O8bAR 8Z77gaj1hXBcghFL2XHRjObRjzs mka3yzbMp4SMxiFmcsDiZb WQAdcV34OKV8dH92Zh15xLLnmPF ax5escKb0BxUtAWCtWGA2lQmyYS bqb1FdRMGvU80afVWha9B4 BCRdiAozlIToAgCodXK9zA9iHEn oreqyc1lxftufAtr8ia52hHAie1 R2hWG2S0BlccW5EUGzpEPd OqgsoLDSlO9vppenk1reoehtFhQ xBHIjHEt3SZc0WJBlkPxoJtVrLI 38SLR8MEOovkMkI0WuMDSz pRsfAaP7u6T4Se7ZJ2RZRiqaD0B NTUFSWTwvdGQ+MT57hu62N0TnTp zvAyu1ZBElTGV3iGM2yC8j OJXnVEegk7L4bTX1I7KpjnXhuy0 xa8poELYyTOukF69uoJZmk3J3RF AcvXC0QDTbpMpwHnVzpC44 Oyc+SUOqyLkqh8SuKzlup5esz7b vpGf1PxdzBWKacqMthAqkTEE5g1 TuSq4hTKLpcXU1uLO3lB0k DbVfHiP0EGxxW348EhRdsSMnGag cD36wT6XjpSQ+WTAcYbq4ODPnyR liVC5iR0OfCQQvkaxaqNKv qCsmQR4iHSEgvwtrNTYskJ2cGLT eL3u9UnDuUjT0DXgxU7VrWUNexg niZg87cC9gUvSfZbC2GNkp R6TnutC6QEHshDBxHRwaQPP4R46 fc8Y9ZFMgYFKjDMM2aEH2wV2tkQ lnbjogbGVmdDsgdmVydGlj HRfcVNxpS105KJWhpSnuRoBcWOt uZyBEYXRlOiAgMDkvMTQvMjAyMz wvdGQ+YSKdUSY3cNewFAPp fZOaRWwyVn7qfHjrhBulAC8wFBG wvsapMXXxzO5aLZWadRKzjNmeTP 4bFXVynorbc365ZeZmZNY8 WTYuoUQnK0GifM0rXaUpMMRwOJJ nI3LkxZFnXRcqI823JDmcUqG2KR EkzgTxC1GrWWCfjWiiHwS7 q9L6As3Pb7QkkjzsS3NrsPVrQuB tPhvfTRp2H6OcVuqlfYN+PC90YW BwQZ57UXs3JWM2kQqeJTku LEBdG7FfbL0fIdChVQUqUWQsUma +PHRhYmxlIHdpZHRoPScxMDAlJy SyeXjgGJ5pWc3gRAUnKHDf lSzuuTHsWfJqx6twXXJtNGosWI1 hnPxnN1OjnPN1OHEyq5y0At53D7 0vT8JhzHJ+ROJtrES3iLY5 xR6gYjViFdU6KTqpF520BbRaeXH wTghoo9bbv4ihtYk3ToG3PXGcgp GoaUynNRK7d7HgXz14J47n IHdpZHRoPSIxNSUiIHZhbGlnbj0 okI1lPu3+POHruIO9pZD8sB8mQj QpOxM3ADagT016MyZnuBDq Dcced1zdg2ewiPt4JoVnQZTowdM slHkvXES3f8VrDs77V7SjxAauo4 MyNnh0ay83dWWjn6W2gTY4 I6SxYFXkbahazNXflXvaOH4oPUH ietubPQJhrC4wLBNqS0q5VyUwWn Z3YBfsO6ZiioF4THNpdTEb EUZzfUDLfJ3agsguc6dzengfYqK pCRVsGKp9CWe9UIQzaAgqYqLxWC G7GqI1HXO7gJLljS4inFzw apiayC9yNst+JFQ1fTLwsJQRUS2 lOjwvdGQ+TBEuYBQ5dLscCKpyWY FjxJ3nKRBaA0n2XsFqLwW9 NIuzW7SsypD2JRWhqVKuOBSapVD UrF1gcgnzq4gnlhrkWxClEYRoWG y7WLs7OEGpgTzjHaQqLON4 SoX5BHB5wZMbaA0svJfzkqpfmN5 wOyc+PawhnTaqOXC8BIh3C8RgEd b1UUItvLmoCL3evNBjJDdi Zj2bwRtqiVkiIY5uBRDqnobrw69 2KzCoi1jiAURzdLWzWDdnDFI3S9 0zy0H5VWRiLXEhWPU1aUU1 rW6awMipvbnbsHTalZzxcxTfpQa wGEcoDVoqC727ZSDqrKzaXrPqEU i9I6FmStu3LXIzkCmqEZ9x wTEqOCieZs3lcYctwDirBB5pRCO twzbso314RoKev6ctWXNduWSrRY dsOXY6Z57ve3V2WLZhSTCl JGB3qEE6bU5nsAywgyfhxORmpKg rhsTsoDlqZRxaTZgfG206QZKaqO cnQuZriMa4X3GoAsk8HRDo xRacVN9ypCPnOVptUw9jkCjjvCb eQQ5cVRMdmzzwc758MtAsh7atQZ UsrMWnTCypUHM8U72no4M4 CNQwFGBuUKB4tTP7fA1qjMdotnu gbGVmdDsgdmVydGljYWwtYWxpZ2 46IHRvcDsnPlBhdGllbnQg KEdhPBs5G5DlFfszdVD+FE28UJD iJS72qHVriIYqc0bxpLe9IkUdNI IyYGZ8gNfxOOtqy5SlWWRv I75vzKBsh0Y4YPWcjKdvbIWnGaI naMN6aL3tLIsbymlex9zjuimvKe zeh1rrmq12kK92E49tJTrh AVTyHAJmEDTkYSYbsWihpl0fdB1 wIi8+RSMgtMJ0qTF9zU4sXPNmDv D3FOpdF049FeUnyBMtFjcb v1tjn9svjIv1EgQ9XWOmhwXpxPc gACY1r1CdRd10J51oLTumHSWkQR TmEIZiSTVavWgarw6azO3h Ii8+YOSizSY1uUP0mA9vHdJoXaF 6LJlyP176MiGkxUKbFoywB30zL2 JvdXA+WVAmFav8GYPhvAoo HL9ujDJnCSzpZf0tSYF8IwZxYzS uCIikP0IrZPRocastouwnvEV6RS DyIHMvmF74Tk4fvUhvJNTl pVIUpE7rrnpuo9nseyraQsLfNIR xQQq7OBl3YFPweMewFlTrQSY3Ju M8YUL1tHNwmK2wbJcontwu gE9uB5ViHPFhoqkdWq79lR6uVhM uEyP1YWdqOlp+TVVMTEVOUywgUk PTFRUBZFNKKTfMLyY2X4Hb Cpz6CKYmhKblHY7utXBxCYntUe3 naRtieXuiNV8pRJGpujqoRGSlyM 3gGCIrmXOgrAjbAM8lLAXt dxhdw449LkFpOVJ8NOSwoIRqK9O zoM4nDdAaSLHcNAWyT6EmlXEtME owI933JEgdLoV8RAWuvaLq F4LsCBDohSksOxS1i6M6Et1wBI4 lFp7cYVj4DR95VY64lULxx3O0lL H2A6OeOTFzlbqkqzqmuIQ9 IAXnZEGosG88aQFsHJaxKu3zt2T 0f309UAEsKQLjfU16Tr8neTdfHU RhmHFWmB6eajoyu3kqswxh HpYnWAGaWYb3XSs1OHHxfLcpAbY fKMA2UnK8EPF0wEAzhR3xbVxbnq nqrW1hFtd+MzcgWWVhcnM8 P9HiOvu5JERggTkgVG7jaDMfSBh vQf8spSrvkRtmGC2rJVCjvmsiTK UgfW6nADVekXQnlQmiBS2k YIStrukup120MlWmXEZ7KYZgnCX gK4HzeC2pFhApEQMpFEVoV0WpjW YdYApmW169TMatXqT2NKEy vsYfT2RcBMRlwZtbHxT2k4V9Cc4 WTR1GEBF9D9TzFuc6TSDznAjrLS 0auFIiSGvfCf7uiVtkqJzi EP6tJOYrkhnrUEGvaV2yFMNfpGQ qqDteYW0yPDHadlwgb906OiMfRN G3TPLfnEDzG2CywF2uXqZh LBGkGBZuC6WomGToSUcmJ647FYj zBjJ9DHRiidSpC2QvHRBrcHovUw W2e3D3Ww9KBJajvOZ+PC90 ii58G6ChKnvhBft3ULDlHKV1yEN 8rO4rFJGyYWlim0M3cOU1L1Gacd Chhx2kh3tzVUZdKXcrM99d lLWvt8J5CLTxqVX3EIKfpWpfIcM kzH00Pgn+OIUmuAacf2OiXdzcs9 snj8jjnLt4DyIyJLZjwzIz tJbbYUG7u1OjIo61Y79vMZgoXVM cGUAtYMEcCQBjaWigde3anX1mLi 8+WYNsqPE0yHW2uS9cVtRx IgM0ODrnW496XtXsrAViOhxrh3u zg9hxdKy7WoBzCWNkhfLnvTtzBJ O1j4PjVb50O4WzuFsgh4Sw Ztp6ir63uUGsn8R7lMI2D0RdLWQ lfryzlKHkrGbcEH0eGFFiaunnUT ZnjT9mTSOoA5b6KcLjQvZ2 HNunU5XjeuO8QOOyqYRuMMWqmCD OpC6mildoe4jsvdbzTgMsEQQkRL x6MMv1NFWqfBizKhTfGBF9 NtG0VHH4cDRziM7fjSysxbjwpM8 wOyc+UUt5g7hckNBhCS3krBA0MO 17QO72fDDki7G3gCN8K7Gl MWMhhjwxnqmklWK7OTTbMPZshF5 4Zo0qwBtzXq6rMXBmGMS2REPwoB DsY8HjeV1bGmYuGVAwECZh E5KmyTJpHGjnT695BZfvQdA7SDC ytmFxJ6ZmQEDejKpdLbV6u1B9Dv 6MDD12MQ82TE69cKEqt8Y9 gAA3J2BwORSarntxpipqcAP7MYT tEJVblO11Wa3yyXljWy8cSOQgHH P7FBNwtRTvS9QhmV4rGdGb UNYdDNMiR1LjtNKxVZlvF396YKj eEvJ9TZHdamWpZ0CaAXMiyEtpKa K4o3E8Mv6ZYj42TV00SC05 tLSnv9C5eRS9R2LqBDVaqpfcxhi akLN4DTYfDEKxzV43Fi2vgYghRt 8lKNHbLIC3PRFanIVtS3Qa pD9tLrJtFAHuHDLzX3RicXOkYGu lS761KZdiClY0RUNruvUbE6GpBD MljPtxZfV5d5R1Ja2ZHMwp uxu4V0GfWpwulQF+KV83OXDeNV6 2kAHkrIPsn5hxdQf8RhVkVNCrQM C8kCdoRKgvc1JlSNWlG98f bGF (more content not included)... [facility] Consent Formson 11-20-2022 Consent Forms [id number]#1.00[facility] Controlled Substances Agreem entson 11-20-2022 Controlled Substances Agreements [id number]#1.00[facility] Progress Note - Provideron 0 11-20-2022 Progress Note - Provider [id number]#1.00[facility] Provider Orderson 10-24-2022 Provider Orders [id number]#1.00[facility] Release of Informationon Release of Information [id number]#1.00[facility] Coding Summaryon 10-10-2022 Coding Summary HTMLBase 64 VknpsljuPKy6xHc+PGhlYWQ+PE1 LOGLuC99xrYHapX4cE4ULWAtLIw wpNTMJQGqEBgQfjwToIW8vwKCiH XJu IC8+TA3kGYOuKefesZJew3J3oSE 3Q74xux1eNIcabLJ6RYBrRzTyth lth3cokQc2PCrdUbtpHjBu WOBdfH38AKY0mW70Of47uNPybVX ka2wajVq5YfJkYNQzPIJ0mKseHH pvk2WiDPVeQ13rsGNji0L5 OZWezPpgoWUxNdIxqOQ2lG9oIKi uadumx3aahvyeTjh5jr08vOXdf5 H5iLU2K0NhprL3QULdzWEj YtjdjEGRqP1pbmqen0iqxnqtDnA pGYScLLo4ZMo6PELinHftObUhHN 38CKV6XVPaxwQkM6PhQMXi vCzjAuC4g9K4Pr2RJ0FQQojzN1Y NTUFSWTwvdGQ+JO18on22H4AkVe kdDlk2DXDtBSJ3yAA7hH9m BNRwDFtxd6T7fZP4M6UesxGgsg5 xe2hrGXIqUEwaE71bbMBpf6Z2RE JqhIC2YWGdmPipHpVvsJ69 Oyc+TBSgmHkmz4ShBexmv2vzh6n wnDh9ZfxbYAHehdFvsCrzAXG6g6 CzMx2eFSDfmAG4uJT7kA1q TvYaOaZ7KTwjL576JjOuyNJfHxg cP06fU5LtfBM+LTYuKsc3LLHnnW izUB3tW0EdPOBdyxliiXRa rJguJV3vODWambyyGUPmuW8hOKB pT2q4VvSoHjZ8NIqjM0KlRLZqgn xaAz65dP6hBqIzGeD7HYpq F0AytnR9QDIubNSbMLshLDO0J72 ed6M6NZYyCIZqWCQ0pXF6gF9mjZ lnbjogbGVmdDsgdmVydGlj RMphCWvvZ027HRTvhAplXjOpVMp uZyBEYXRlOiAgMDgvMDMvMjAyMz wvdGQ+PNQiVXD4gHfmOUTg kMAfHQnzJf9ooXhkzKxuWL5mPVS ntwpkCAZqrF3jADTnjFAolNezOH 9tCPRnjovrk812OfAcHNM6 GOAydBIoP3ZroO2dBnDpUZWxPYB jO8LdpBSnCFqyG080BSzjJiQ1QB XbxkKbV1DcYKSdkPmuNsD9 y3L2Se6Pk8FzytdhD9YuzVEeMmY ySvhkPZr2W5CpDepqiFP+PC90YW QgJE84XJd2XSI8wAtiWCeg MSAxR7OhgD1xGlFfMOJkCCOnIlh +PHRhYmxlIHdpZHRoPScxMDAlJy VvePdxTQ9jLu2fAPKbRMPh lSthnNApTbNal8ihLGDpETqbWO7 tfGqzU4GhqAC5RLWwq8c4Ih10K1 1mQ4JktIE+FXUgsWQ8sFQ4 lZ9bHvKyVyR5FSlyF162PlLqzYV sVzkdt9hed0ogcXq7MaF9VQCllv HlaJzaHTO3d2NfRn05P71b IHdpZHRoPSIxNSUiIHZhbGlnbj0 uyT5qHh2+ELUubFJ2iNJ6iW4nEs UtQgT7JSnzN312AiMoaEPg Ykklb2sbl0tciRk0KwQcOWLwgeW bdHqyOQY5c0JjNg18O7QjjBkmb6 EiYtt3ub25zLJmy9V7kVL8 V8HcKTUtbwfsuFVxhYlsEJ3zQRV humepKHRknE3rXDObX0o8HaHeHi X6YEtoN1JbcuN6LYXftWOl ZKWfpPSJpH2dalyme2vlkyutLkM wKLZgJZm0JEt8NBFqqHywKiQfMC I3UgD2SJK2nXCptG3frQbv giwadY6vEyp+JAZ0fPWiqHJNXK4 lOjwvdGQ+PVBxBLH2lBjqHZthNL GbfA4uGYVkA5l6TfUrNgN0 NKmtA6XlsmM8CTOfnGYlVPPkhLL VgN9nvkarx5grradbUtRaFEWkNW d4RAn7HTWmoDisAgQpOSB1 XlW4RHP4rNIxoY6unJkrfwlcvG0 wOyc+NiellLqlGDT6ABx2P3LpHf l1GSYedUehOO1oyCOwOXvv Kw5stQuqcYdaWE8uIBMhzkgfz92 7BgOri0dfJBFvnCMjURmpKJM3Q0 9cz6R8PJOrSHLmTMC9jIL1 yI8vdThkcbwleYHfsBignwQytWo kLVcmYTitR221KLDmhLutRvJgKU w3O6EgSwo9WCOltLueNU9g xIWiHUhtUi0oqCsqxVjqAA3zDFK ruwvsc508FyAlt8roVOAinEFsPJ eyXVO2H64uu5L4RFTvGRHn ITG5oLG7cH2ewZrbtyygsGHphWp dlnMvwSybLOcwKCquH526CVMlwX zrKxDxoBh8M6XmTas0QLQw fHhoPG1moVXyARjsEk7caEsumVi zFI9mPIZfkjqql772OtRex8icHR LgqBUnEMzwJRK3K28wa6E3 MJVgRDRuNUO3jSU6oM1esGpjokb gbGVmdDsgdmVydGljYWwtYWxpZ2 46IHRvcDsnPlBhdGllbnQg BAefPSg6B7RkAdvvzNV+TR52PDY fGH32wKNiiQWcz0zhxQz5FfGxIS NyJDZ3gGvoYBwzs9DwFCAm D83nrQOny2I5XUCabKiioHAdIqT xlYL2mH1oLOpqtivuv5ykcqedVg xqn4diiu77eR30J58gWSob NRMmALZfPDFgOJKnlNpuha4ccK5 wIi8+EYTzrXU0rJF8zM4zKFZfCx V2GMhwB350AgMqdQFzLvqg z2zvl8iyuWt1OiU5MXFegeFgvYg wKBY6r9SmGb12J58vVErnAGAyWN NqUGWyRYCkkOymiy0vvN9h Ii8+QXCusRE8mZS5fM0zVbAkKhK 2NEwkA003UyNnaWPnAaavA05fC0 JvdXA+WMPyTzb0WHKfzPpa XB1tdKJnPWfvTv5rNBQ9PbBwUtK qIXksR1KhTRDaprfrxozqsRM4WD NdOHWeyG92Bc3xwLlwXVSs fOGEnG7qjkftm6nbrjebAlIcRKO tWJx1OSh4ONGnmDkpNtCdLAG6So R0SVI8lOXdjP8mbGlydlbs mI9dI8NwPILogqdaXx34rR0xTfH nCeP2GKieBxb+TVVMTEVOUywgUk YONTMQIYBIAZmIDxO4O3Xz Gwl8UKOabKowSN2bmQMcOEplGg9 szIbxoEvzHO8wWQIytvukBMCveQ 8fZQNgpOJniBpwZB3gTDFo rtagw079FhSgINH1PTBslFZsR3D ykV7rUaQwJFUrIBQuA2GbuKJkQA zvS813CCulRqR2ANPraeVv Y3BnHXCgaTshTqA8o9M2Qw3dLS1 xCf7rCZx9NL98AO10wXGrj0U5vI S3M6PyJARyjnoeprvckPS7 PRAdDHCpjD09oXBqBJypVe5ch7T 0y809OGHfJRTzjF84Ll7teOsnFL OkmDHLpN3ulxrwa7ldjnyx EcJgTEJbTKm1LFd5MHLsfBzfChK vQQY6OlR7GIS1dANtlU7yaRkdvw afrO7oTme+MzcgWWVhcnM8 F9MpQof4FCEfpEohES2uyFLtRSw fXd6kqHqzrIjrSX4xYBFxxhfwCX KxaH8rRGNxoVQipOpcSI9a SIDcaqhvi356LnMnQMQ6QJFiqQA aE8DnnR2qKjXvCHOlPZNwP9NesJ YfRCgsC514CVgsOdD8WSOi luDzB1ObZZSvkXmqTrU0q3V0Iz4 OVQ1ZOTY5M2IuCwm2DTYuqDnsIK 2jyZEcJUiwXd0ukCttdCqp RU2rULOblmnnIADwbK0kXEXclSC khZdaHP9xTVOnwirow153WqFvMV B2EEDxqNCjA3YxiI3kZbDy XKJxCPSqJ6AnqPOtIUreF571VEi zOrH8QVVlobMqF3ImKKBedMxqCg T6l9A2Fh9GKBughHY+PC90 wt47R8ZpTxmzHkk1YGZoXJD7nUI 8hB8kQBHqFEfhc0A5gNK3G7Lnbb Rmdx7uw4viGGLwEMsuJ30d bVJpx4M3ZUUjaTC3DLQrkXaqDcJ vuF43Fzi+JQVgiMsbd7DyEdhyp4 ifq1wcnHz7MiUqBONberFd pOvkVTK5d0LzNd30S78pTRvkAIY rKXBpXAZbCRWunUvewe2htK7uHe 8+FLGpiDK1eHF8xW9sTaCs CkG6QIasI745OyLljTRdTlizk7m rn1zzbKy3YwSsRHChcbLlrNfmOV Z0k2CwQs03S7PfeFiyl7Yd Pam8ag91mPYwp3B5kQK9Q1UlVJX qmjttwSKzdCxtHR5oPCSfjhjtUE GanW0zVKZvD8u0HvTiCmK7 WYywQ9DsgkZ3HZRmeXBxFMWahIR AdR7pdnghb2rkyntgMdDpGFRpFP t2QFg0JLLdgWqiLvIsUED9 UbM0QMJ7tAMbbQ5iiIucxkhkdC8 wOyc+OIv7d5jvgPRoLO9prHM4LR 94XO09gCGvl2Q8pFA5B2Sy QUCkgetdrhvyjGP9ABAuRVBbfQ7 5Vn1ynYawHg2kUVVxDDV2BIUwlW ZfK1FonN7jFoLwLVRlPFAg F7OrnDVyJUrtJ531BPicTcN2PJC yoyCkB6TiGJFauAyjNnZ5a9Y4Ka 2CRH62WY40IT48kULlr0O2 cMP0D1ZrJPUqnnnqqgzoyDZ5CPC rEHWsmY20Ft2fhZudTj0rPADrSB X7HSXijBYaE3FbuV7zHqNx POLiICCsS9CyvJUaLZwlK590OUy nCjX9TENgqsGfV2HpIDEpkScnKj U5v2F9Bb9PTx09DZ36EG16 rETgw5N8bDH3C6MeDZDexpqdygj eqSZ3WWLdMECcaH26Mv6wnAmkVt 9lALKlINR3JWDruFIcS5Vo uK6bHfApXYNrOPYtX7JxoURoRSv sK531ZFzbGeO8JPZkwwQvY6EoUY QpcOeuUwR4z0E9Eh0WLXyq ejv3E6XfPbnnoWT+XZ92MUMcHF8 7wYMeaQUbm1vxxOs2NnAcBAHoOO Y6pLtaQMomn9ExWNRvN23a [facility] (more content not included)... [facility] Miscellaneouson 10-03-2022 Miscellaneous [id number][facility]-03-2022 Provider Orders [id number]#[facility] Recordson 10-02-2022 Outside Records [id number]#1.[facility] Clinical Summaryon 2022 ED Clinical Summary [facility] ? Urgent Care [address] [place] [id number] Clinical Summary PERSON INFORMATION Name: MICHAEL RAMON Age: 37 Years Sex: FEMALE : 1985 MRN: Acct#: Visit Reason: Medical screening exam; [facility] F/U-RT FOOT Arrival: 10/01/2022 11:44:26 Discharge: 10/01/2022 12:49:00 LOS: 000 01:05 Check In: 10/01/2022 11:44:26 Checkout: 10/01/2022 12:49:00 Address: [address] [place] [address] PCP: Thu Baldwin DO PROVIDER INFORMATION Provider Role Assigned Unassigned Mati Bell PA-C ED PA 10/01/2022 11:46:30 Catarina Meyers [employer] Nurse 10/01/2022 12:19:26 VITALS INFORMATION Vital Sign Triage Latest Temperature Tympanic Temperature Temporal Artery Pulse Rate O2 Sat 95 % 95 % Respiratory Rate Blood Pressure /95 mmHg /95 mmHg MEDICAL INFORMATION Medications Given: Allergy Information: No known allergies PHYSICIAN DOCUMENTATION DISCHARGE INFORMATION: Discharge Disposition: Home Discharge Location: Home PATIENT EDUCATION INFORMATION Instructions: Hypertension, Adult, [id number] Follow-Up: With: Address: When: Thu Camargo[address] [place] [address] [place], [place] [id number] Business (1) Within 5 to 7 days DIAGNOSIS: Contusion of right foot; Elevated blood pressure reading; Hallux rigidus; Lumbosacral strain; Sciatica Patient Understands: Yes - Patient/family/caregiver verbalizes understanding of instructions given Comment: Normal [facility] ED Patient Summaryon 023 ED Patient Summary [facility] ? Urgent Care [address] [place] [address] PATIENT DISCHARGE INSTRUCTIONS Patient Information Name: MICHAEL RAMON Age: 37 Years Date of : 1985 Reason For Visit: Medical screening exam; [facility] F/U-RT FOOT Arrival Time: 10/01/2022 11:44:26 Primary Care Physician: Thu Baldwin DO Attending Physician: Mati Bell PA-C Comment: Patient Education With: Address: When: Thu Baldwin [address] [place] [address] [id number] Business (1) Within 5 to 7 days [...] Keep all follow-up visits. Medicines ? Take uoon-drh-dujelrn and prescription medicines only as told by [...] ankles. ? (more content not included)... Normal [facility] Urgent Care Note- Provideron 10-01-2022 Urgent Care Note- Provider Patient: MICHAEL RAMON Age: 37 years Sex: FEMALE : 1985 Associated Diagnoses: Contusion of right foot; Hallux rigidus; Sciatica; Lumbosacral strain; Elevated blood pressure reading Author: Mati Bell PA-C Basic Information Additional information: Chief Complaint from Nursing Triage Note : Chief Complaint 10/01/2022 12:24 EDT Chief Complaint [facility] f/u appt . History of Present Illness OCCUPATIONAL HEALTH FOLLOW-UP Date of injury: 08/26/2019 Claim #: [id number] Employer: [employer] Mechanism of Injury: She was moving boxes of [employer] when one fell onto the top of her right foot. 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 On 08/26/19 she was moving boxes of [employer] when a box fell off of the cart and landed on the top of her right foot. She was initially on light duty per [employer]'s telehealth visit. When she was not [...] History Medical history: Resolved Lower back pain ([id number]): Resolved.. Surgical history: E (more content not included)... Normal [facility] Urgent Care [place] 023 Urgent Care Record [facility] ? Urgent Care [address] [place] [address] PATIENT DISCHARGE INSTRUCTIONS Patient Information Name: MICHAEL RAMON Age: 37 Years Date of : 1985 Reason For Visit: Medical screening exam; [facility] F/U-RT FOOT Arrival Time: 10/01/2022 11:44:26 Primary Care Physician: Thu Baldwin DO Attending Physician: Mati Bell PA-C Comment: Visit Diagnosis: Diagnoses This Visit Contusion of right foot (S90.31XA) Elevated blood pressure reading (R03.0) Hallux rigidus (M20.20) Lumbosacral strain (S39.012A) Medical screening exam ([id number]) Sciatica (M54.30) If you received any narcotics, [...] legal documents With: Address: When: Thu Baldwin [address] [place], [place] [phone] Business (1) Within 5 to 7 days Medication Information: The exam and treatment you received today in the [facility] were for an urgent problem and are not intended as complete care. It is important for you to follow up with a doctor, nurse practitioner, or physician?s doctor's assistant for ongoing care. If your symptoms [...] so we can reach you if necessary. [facility] has provided you with a complete list of medications post discharge. Please inform your physician primary care sports medicine/provider of your visit and for further instruction [...] disease. ? D (more content not included)... [facility] Progress Note - Nurseon 09-07 Progress Note - Nurse Patient called req uesting a refill on diclofenac. Order is sent to Bia Goldman CNP for approval and signature. [Electronically Signed on: 09/17/2022 15:26 EDT] Dana De Dios MA [Verified on: 09/17/2022 15:26 EDT] Dana De Dios MA [facility] Coding Summaryon 08-15-2022 Coding Summary HTMLBase 64 LnkqcvpfPKo2uRo+PGhlYWQ+PE1 WAEYyJ97goJYqxV1jU2XVRZnKXa zaURKQOMkBObCbedRuBJ0uxBIpH XJu IC8+GI9xOZQdKorvyRGab9Q1aGS 6P26niy1zRUqhfCJ6JCOlMiSgxk zls3beuFy9ZBarMpcyFuTp UADygO53YGX8pX02Tl31tAZnuJM vl8tkyQh9RhTnATZcRED6wWbbXK ivx3RhJEMjP27yxUUpg8N9 ZUExoOjecALbGmYzqKI0rB5bNHc gwczle1mdoxprMtv1yw41cDZfj7 J9kNY3I9IqneP5ENLloYEa SmadhQKFxM8hfwxuv6wmgodkYgH zSKAhOCk3HJk1SBWxhBmjNjRiSS 97ULT1RPVyfnMqY8FeHGYu rWboDdT3q2U3Zz1TM6YZXaecU8H NTUFSWTwvdGQ+RP75kb04K8JcVd axWzq3WVNgSXX5yXV5xR8i FYBlNLgud5F5xRB9M6UghrFami2 gc9iqFGIcHWfbR47ncTVty1E2CG QkpFC0SUCvbXjqOySsjS43 Oyc+TETqdBpaw1XaMmhrw4yow7y htHt2JppfKZMyaeVzlZecEVT8g2 VoCr5cLWShmMV8nDJ6mJ8p QgGlEnM6RAnyG435LhZruIAoZjs oX81zZ8WgqTI+BWJoUne8AOQswY boMR5cL3ArVJUkronjpWJz wGxpYE5yCNUkovlqZGQblM3pJZW zO2y2XwGxJaY6ADgzA4HoLVZxws ljLr25wI6xQtAmEjD9FWqj B0BjsfK1FPBpuZKnBZrpXTQ6R54 ky2F4AEHyMZQkTGC0hTW0bJ5hlM lnbjogbGVmdDsgdmVydGlj JHoeWNaeZ369OQXckUgkTfVsXUr uZyBEYXRlOiAgMDYvMDgvMjAyMz wvdGQ+ZMLsJDK1pLgaMHCz aXAwOVeeBz4suOymqDhlCG5xCHH zhxfrCFMwvO5nMKRgbLYhaIhjFF 3aTWCdixuqb257ZrHuKZS9 GYUhwHNdR1UocS5wGcVeABZaSEX sJ0TytDIsHAshN414SFwuIzE3ZN PhayIhT1AmMDTpaXuvTgA8 j9U8Pt4Sp5NqvwvaH6NdwXUfVbO iXeytKWq8D7QgQxtyzJZ+PC90YW OkBS13OJt5BLY3sVmlXPle KJMmF0TmzK2gRdMkEPHnAEKhAqr +PHRhYmxlIHdpZHRoPScxMDAlJy XdtFuyXM5fRy5cKYCaNAIj iQgieIFjCfYmy9geSEBnVTgbTQ0 txNynT0SzbXM0EVLuo1w3Kv08L2 6sG4PlqLK+NYMndVU5bAV9 sW5qFrWkJdO0HNbqV104ImVfxSN yJajil5dvk5aqiYs8EoY6YNIqzw IjjJinQZP9t7BsLm61Q06d IHdpZHRoPSIxNSUiIHZhbGlnbj0 qvR8cTq3+NVQktRB8hFL4gL3sCk GzUxJ7MZdhN552WgZwnAEp Ptrch6oiw3uouAp2IpHgOSHmclM uqDydDLQ4y6XeWa91Z3AmdOgya5 XxXez8bs97wHCqm2V5eIJ2 X9HjJUPsjxngjKXgwDuhPA4eJQY aumhjEHLpeN9cRGCsG3g4WeMeNs O1FHrgX3FtllZ7IVKqqJXy MTPiuQBZbW1rqkefu7kxgdidPqB qAQXxYIv5RNf2DPZguEzwThInSK M0JuO1POD3fSXsyU3huXob fefqdR6iLvj+STY9oGCgoDZKFG9 lOjwvdGQ+JNFiGRA7zDikTQfwYF IpzG4rSQSoL3d0UxLeJlK3 LNqeR0SfemZ4WPFbdFWfNBRfhHC SiW0yrgfee2wyjbgpUxAcLSChTP i3YHr0GBUflCgpYfMaGYW0 KcR3HVH6sFMbuE8pyCemrnmtbD8 wOyc+DymrxYnlRWF3EIj4G4LgSh f3CGFauUtfXK4ziSJaSGzd Bi7hwNluqVkiOM9xHFIdmaesg43 6MdLur7lpGPKxiLIqGBccJRJ0K0 0fa0Y7FJMaYOCmSBM3kPZ1 fE8uvYugaibntFZsuEtjgpJljAu gKHhuGVlbK291FBBriWeiSbOaBW r3K6JzSsr5NRIkuIwiGV9y fSZeWMxpDo0naBnaiFgvVO4xPYM gmvdot388DvOzp0wiTYPdoIOsQB aaHJP3T01fi9E4LLCuXRGg NDY7xUC3dR0rvIwraaaniPLckEa rrqWwbHpxINazRKypT910WUFvaM mhClDdpSk1T9SoOeo6ERMy jWpzFM6usLTsEPlrMm7roZcqmKo dQU0jQTLbesfey778IfIxa9ybGN QbrUYcFVhrXLX4A99ou6V0 ZMWpOXXkBKT0kDU9rR6yaPiprsq gbGVmdDsgdmVydGljYWwtYWxpZ2 46IHRvcDsnPlBhdGllbnQg IYswWLs4S4DeXkrgwES+YS20RHT rTF57oWNimKPjf8djzEc4QxYcOL YiSIW3sYtjJOpmh8XeKOFz B17hfSOfz6U4YTFwkWsykEOkRpQ pvWJ9qR6pTVbjrzsba3kyhbjcNs uji2oauo56aW27T96hJEdp JPFhVNByAOQiNOKnlYhkfg1kkE8 wIi8+WFQtzVC2nSD0fJ0wXMKoXz V9WLlgS121QkPmbBHxIzjr b9uie2ndqEc9NzR2XERfqlLcrKw lDPT8z3ZxOn86M83nWRxbMTJaRF PmSQJuVDNniKqvvc6rjN7l Ii8+LIAndPU4kQQ7bO6aSsYrLrX 1RNwfZ076HiIsjVVmFxjdP75vG3 JvdXA+NSLpCim4BYVfuAnn YU4edRTeUGfaAt2xMMQ3ClBuRjV nBDslG8GvARGqrcnuhdvkcMU7CH OnBAMieZ70Mu3cgOxyEIBo pIMQoW1qpxpcc0xohqjoMmXfHPG vWXt2IUc0FMBnzPayZyZaHGM7Dj M4QTA5pSUlfY5yiDyppkpm vB1eV4KuQNRiwtuyZm04hA2nBsM rSeW7TKzjLco+TVVMTEVOUywgUk PQSJQTOMWVUDuWMtJ9W3Yo Ezh4PIBiiEbnOR3qdQMbUQqxVt8 fxCiqrTdoMG5zUUCmdbahRWBnzT 9cZDSohPYcpCxkPK2aHKVk xlwbp016IaUjCAB6VQSpqKNiX2Z mcG5fDhJxHJAtFCYcE8IvjBIvSW wgX113ZMpyMsC3QDMppbCu A8LyIWQzjNsoFbV0a8M3Rv9sOU3 rHy1dRUs1KO48QB15zWYdp8C3bO I7W5BpZFGrbakwjrufhYZ5 LPDgZDTlrG32xAPzXBeaTn6ay4D 0e023VEGfZKEpfO77Fu3uxEktPG XckYUHhF8yppajy3hryqdr RvNuDTMmNEo7ZFu3ZJEccLgwKdJ mZSI4RyP7PAR4uZTpyI0qaZtesp kzgV3jMym+MzcgWWVhcnM8 F6IlPle7ZZNuzPlfCG1ysKGdEYe sVp5azIxygLudUW4sQRBqqmraXB BqiV2nIPNxpSLbjNboWB1v UHUhtbbcm834OaFgCAV2QPFdfGE bV1NpcC8iBmNdYYTlRGCfU7JdnZ DyOIutD094AEvyCaP6TYTj idLoJ7LuNALouLoyGvA7y9B8Bm7 CMX4LNDV1J5QiAsl0SNUqlJvpGA 7hbNWoUPreUz4xyCtnzSwg JN1nJVMzsnmfZHWcsT4nNDNdySK rzEqqBL7vOFKasjayu368BlFhBZ O9ZHNxoCDoR3ZxuJ8vBgAe RDDsRZHwQ3AhpLZgFZtgI179DDq aXgJ1VSNnubJiR9TfBXMllDgqUc N9l8P5Ew7MHFP4akQzknah D5K0lNB5yTSipTvmwXJ+NZ48yr3 3M9XmLuxcMlt2SEMyLEJ8fJL3uQ 6dNGEnPJvch3H8aQK3Z6Rx zrQcvr5fl4aoHNKtTCcbD93rfSI uj1K5PWTioXN8MAFsvXtsOmVbtF 93Oyc+RXYbsUeuz5DuPgnq w5soy0tnkUe5QiZaBWHsppPwqSk yAFS1x1QyVp59R87jOEoaWKZwFV EhMNYbDIMcjMbaiv0oeX6e Ii8+MINdfFP1tVF5aP7uLgTnObH 4ECtfP184SfGbsJApKtgul8orn3 knkUu3GyLpZKMcrcCbtSgp HSJ2p8OwJw01X2GzqHydt7LvIpu 3ab01rECei9Q6cXI2W1PzZLXwzf rotUVteRjiHM4nDCLmgjsw VQWtbQ7dRVGpX1q4IpVkTfJ3EIn fR2TirlF2YSVrjVOwGPTgbAFQvS 5kpsyxn3vexdtuRjIvDMFw IGv0GPh7ONSsqAhfMiPkXGG3PuM 3VAI1pESsqC5lfTeastzlrN8oJv c+MGp1t4nvjXMvWC4daBD2 ND25UB78zQVah1W9oLY9I6DyXIF iktlmzdagpVA8KHFkNDLzoY40Gk 0sfXdqJp6gIPVxDVS7KCRb hDNdP5LcqS8vHjBgUJOfQEGpY4N izYApDQkwQ221UZobWrB7TRMhem YaU3TfGDShsMryKkG2i1P0 Bd5KGK18YB64VY37tVJjs8K2aNS 3N7QwATOzkunkusdfxRY8RUQlWA KznG45Xy7feEivNm9gSXBu SKJ1FNXbiLWsL8WuxT2iVnJjGRK yPAUpG3GesXIhGYtnX158SCqoHq H9VEPsohKfK7QfZHHftOhr UuM3i8D6Ub6OQb35DC78JU48xUA gf4T7mHV8U6CeBVOcwswbojrnsT X4ZGObVAIwtB88Ze9wuDkt On7pWVXtSMN8YXAphELgC4PwrF5 nYiMkDGLoRKYtY8FtuYHnPPdoL3 60GRrvWvO9CXBdxwIhK6Jv YDOxqSueDkG1b0D4Uk0YMWhtlqv 2H9UxEcsocJJ+NT55AIChYT09nF ZulGQmd7ihcSd7GlGkVQQx IHN (more content not included)... [facility] Provider [place] 08-09-2022 Provider Orders [id number][email or web address] Billing Authorizations [id number][facility] 08-07-2022 Provider Orders [id number][facility] 05-3 Progress Note - Nurse Pt called stating [...] on: 08/06/2022 08:00 EDT] Deena Silva RN [facility] Provider [place] 08-06-2022 Provider Orders [id number]#[email or web address] [facility] Coding Summaryon 07-24-2022 Coding Summary HTMLBase 64 YxkdrbnyLHd8dAm+PGhlYWQ+PE1 RTQPwV84uyVOqkZ5JY9fDTE9PDE FIQJZAVV4PAF5nqLX8LEypT4Zmu iAv IsxssPWyKT56NAw7UVM3zLmtPCk ocK9sfPFpN5y4LjUnAC76bF29KD fgIRKmYxI6BzJdfojnoDIb R9wqTiCynZIxZon+PHRhYmxlIHd oDGOsFDwkUJWmMfFwjSbmIP0kPo 9yZGVyLWNvbGxhcHNlOiBj o2zzUTShIKwxMW0uvIznT8YcpZQ 3IRVve2q0Pu95zQV+BVKwVLH5rF nvRWyaa293FmWzr8vvXJL8 vZTbTXrbEUB9R76sg8A9NGMnVWU bDFO2fIO9mG7hsFgscjleZ5XscD WoSwA9YTH8tNSbjA4nqImx ifyeaP3oLhu+X48XET2VQTJEDZ8 TTtu8Y5StBgbipKZ+SN66IGVlYK 06kICwuDEqe1vnuUq4McAf AZIaTFO5oVsaEDcmk0QaSEQaD14 cuBMuz3E7TKIqaPshdPAvUqPiiS M3vR1gMJjkfrxqp1bflzvp Dknjf9yxtn45aV91J39jBStkQJU cEKN5JSOwIARirLxweo0hrQ3bDm 8+XAhxq7yxl1lyoOp2MkKh GCMphnFwiQfgUDO1s9EgCl78L0D gnGlsa3YpDvd9er26yTEbt7G2fX X0ANvsCKNzdQ1xYOboUoW1 LLZcRhNerI70pSDrFHqtKq1jsFk hlYwlXZ3uIIKlozeuRIMpaX1yJD LhtOXjyNalVK1kLBLzgfvl g569HcKbTIQ3WIHajAQzS3DwlV1 pQeLaNPPbVVMfU1XsaWYtRMmfJ2 32ENmuMtZ5KKSxscWuW1Df EKAnjFerShY2w3H2Wn9Kx0Bwyll eQLQ7FEnvJLQ9WfP8HpXoNlX8I7 DvFju7OCCzmEkvGU7hG6Ju WYOrgzejbsvwcHH0OZVcUXLteR3 3vQZeLZpjAx5ga4J4z276QEBiKI BudV94Fh7mvOjxTLDqoDJK tY5sxcczr7qmkwaqShXcETBnSWb 5PMa9NYCsdGxlGwWyQPK0GdD0XI R4vKPddZ6riCmixppthR7c Oyc+R72rnJ0fOCF6NAB8synwJFN nuuOzLZ13JQ16N1ZuPbcluHDyoR U+MDPbmvKyzSpcRJ6oJoMs g3ehr6PuUPyxE8StGDKtLKczGtc 1OAPqTUK3jEH7iW2xNEFbJLlyl9 E5iGV6C9JfyvUmhh8ci3xu KNPpBDahY65wqQKzz8T9CGTjwAG 5PXIjiFqzRvExbB56Wpu+PGNvbG gtv4HqRmmyb6ylw5syhOt6 MlVxJATxgbSdvKoyOOE6j7DzNg2 1T13pPTwnOGVwBCVnPFEnOBNveA nsel9muK9qHw5+PGNvbCB3 mPD9vF8dKBCgAxT4TJinN304LnD ceCWzIqiuc4oqz7ujaDs3LjOdNI HwdgQzzOkoEZM8r8GeTn76 Q72sNZgsAMOnEKIqZWPmVDKuhYl jca1urW2qNo3+PX9uo0mxtx60uG 48dHI+SWGfHCM6cQizCLot PCUecW4rEEzwZyI4ZDFmEaQqxH3 9mRBrLTsqLi2biOojkVhlID5cZO Mrkiybq858OmSwm4hiEYSf uXVqRYgaXJF0H54wc5I1JAYiGLA zCRU9hXT8wJ3zdXfeghatlHEfqR wpejQknGzaJBogBOgfV891 IHRvcDsnPlBhdGllbnQgTmFtZTo 5M1LeDtn0YBRauRskQM8ajCPdGD svNx2akSgdkHuvSJ1xQFKd vkvrd256NgWda3xaJLPjlSEuROi hCVD1M27sh7X2XRNtOMYiBGM0oU Q7lH9rrStmemdkcWRvoIji rmPxfFyxNZmaJBhrU087CUGfxFp yJpJgpiJsGMHyoDH5SN83VA18eY Hzf4F6jAK7K9PoKDTugynq mevlvRC0YOBoPUPodU42Ki2cpSx gJq1hGKDqUAV0MLIssGHcS4OyzK 1pUkEhSQLzQUMkO5ZokEVb SYaoF953IPcaAyF0PVWxvuLeU4O fHVXeuGajGfI7f5U6Rv8QJ5D2PO 45BB51aDAjg8X3sJZ2K2Pa WQBqnzgxozehyMI4ZRIsAIUfcD4 0Wb0yvKodXn8vTZCcYIF2LQZqxA BfA7TfgC2oAjDmORBpGVCu C4JvsPHyOMctG748AKeeRlU2SMP ygkAlW2GnYZCvuCinFoS1y2Z9Ti 9DKWb4GE83PK52oYWia0K6 xQJ9L4GpENKlyqoupdclkPB3PRQ vKRDswB17Bb1sfAmiMm3lHIBhLS Z7HMHxsFRsF2KfaQ5wPuBr GOUyDRHlX4DmeBGmLAofN334GIz yNlB3HHHysxUwU8VwSSOnxEbnFw N4i2I8Jf1WQYLmYY21SPZ1 gRH2YK17IF95B7YjJglncXAkiUY +PHRhYmxlIHdpZHRoPScxMDAlJy MueXpwUS2gHh0gQIDcYUOm vWbojHZqLyTbc8loHOEoXPbcCP9 ifPfkF3IwdOQ9HODdo8t5Wr18J6 5nO6IoiXN+QCVmsDH5pVR9 xH7qOqCeSoC8OKovM476WjQzkWM nRaold8utv0znoBf8ZuS4MFOmao MwwYllIES3d9NnWn74R85g IHdpZHRoPSIxNSUiIHZhbGlnbj0 icV7tEt3+HCVipVD4qBV4xN1cXy LoPwY8EHomU320UaFccYZt Zxyua2hcx3wdjHy6UdKtXTYlhtN atNbxUAQ3n1CxCc00Z3FotSgch8 YaEsc9kc36iOXff0Y2tNZ6 K8MeROYhziipdKQdgGifFI4lFIW tepdnQHKrdC3zZIBxN4y5OdBoQu W8XNdrZ8UrriH1RMYgjGGm BIbpPMZ8J30uk5F2USVaJDXnGNO 6eZS5tZ4egZyzfkcipNIbdVourn ZlmFxkSVofNRxyH936BTAk tOtpBITlzB4gGHBkaAIfdSwbEB5 sGZQassenTv9ZTZpPYpGxGYFBAL JLZMLCSGCKEC4EEH18XZ44 aJFha4P8qBP6E9EhPEGaoowytrc evFZ7TEXoPFDfcA83aAWmMJmmQr 4ag7K0v944PCQdKAFqcY73 Ch9zpHlmWCLklQXVbE5hkkmvj4s arlzqCuCpVGXhFBi4RIn5CRCovR juLoJiLJD0NdO9CZW1mQIt eH3mbHvuzmdozT1pGal+MDEvMjc iFXp2XvgyqVI+BRHaCWP2fQcdYC hvIQAylJ9sEBPyI2s3XaRl FoR4GEjrI7ZwLQKpuvkaHq30wY4 tQhNtGvP8JQlpY1RtmfP9GUIouN QmPNozGPK7J52sp0P4BCHq ONHmYRD9tWU4oT0ojGwtpqftpXR hrOeobnLbzYdfUGupMKkqA853OZ DpxEbcPhC4QMnqNAOeFN85 JW72vRRva9Y4hGE6A5UmRPZzdll usrlczCY4XJVmUZMsnV83pNDhWP csOb5aw4A1b279CBHvOKYq mS89Za0xmVfbNTGfaPIBzU3wiof pd1gudnzvUsIqWKNnTXk1LUv0UN WqnLouReOjGPS3LaA8PLO0 sJEbkE4fiHjhmarflW8xBtf+RkV BDFtKEZ13CE57iMEdg9A5vEH2D7 UwAWMmrikqhqzegXN7TIZq CIAjzI98fNZsCNpmZw1tm0B2a94 3MIDrDQLrlY08Ty1niGzuOTFnqU REqK5gjmybn3oboiocXyGg ISQfASv5GLy5AUMtgVfgSoYuXXE 2LpY7PFA3qWWdoB5thSoclyygvM 9wOyc+E6E7R5CvAewisJW+ JL78TKOyDK89bWOmsYHbj8xigOb 0ApJuQWEzRRR0wQunAVxpi1RgCJ GbN00xeTIpx9I6GYHirHad tPJyInFagID9iO0aCHiielsvv9l hyobgAlakn0saul18lE95E77gRE dpZHRoPSIzMCUiIHZhbGln eu9loB5qPd5+OSVmxSF0jKP5eF9 cVzLaVyX5NCjhO343PxQqsLCqZa aut7hsc8sjrBj8UmQmWDYg qbJfkFppHAC9p5ApCs12A59bXRg hQNCgPFYtOFVnDZYefDnmyh5gfE 9wIi8+GO2zo9aqyb80qD83 dHI+IEZyCPY8eNowEZknOIMjeZ4 iOTefFqJ7PCDlUzBpsE91qPVfBU yrEo2toZjxqElxFY0eIGIg totrr092BvZuq7nuUNEtoUUzPAw hFYN0Y39ki1V8WQOcEHNdHQD6dZ O8xD9yxSteiprazILgcWju kkMifSjpSYipYFzxR177YPCkgAq dBvZumLOhR9qssyVZZV6lJgjboC Q+YWTvDFV7sCrdXRkrZGAn oN4cLRBmX6i1WrXnUaK7JFrpR5L gnnR5VJNqzSPvFFIsqDTEnK0rxa bap4etfungFtZeHCYrYQv3 RHb3OMVrkMcaHgQoHHP4JcJ5IIY 9oLQmsU8jrJidhjwimA9fRfn+Rk lOOjwvdGQ+BIFhYUT0qTkw UTstTYAohL1bDDTtP1p4LvFiFwN 0JNcfG3EvhyZ5ANCxfVLjNXGukA MRzI3uoiesj9kdmlrwTeWv PWVzAKf2RSb4SQShxPzlOlLqNSZ 1HwV0HRX7fILeoB8fsVljpcnreB 9wOyc+TVJOOjwvdGQ+PHRk SYP3sXfcZYchIWRlwL7dSDMdX0i 2AbGcCwP3BJlxY8VvxyG8BVThpZ SzXMZugSTWwR4kbuobh3zh rtnzNtOiKLMfNWq9RRw7QZTteUy qLqGfOXD3AgI0AXK1xHOlgE0xzC ppekrwtV4gHlc+NMG9IYU1 GB92FD76R3UnMqvnuGMurNH+PHR hYmxlIHdpZHRoPScxMDAlJyBzdH xgLT1qGj2nTJYfLJXhjLaq cHN (more content not included)... [facility] Progress Note - Provideron 0 07-19-2022 Progress Note - Provider [id number][facility] 07-17-2022 Outside Records [id number][facility] C[facility] Summaryon 07-16-2022 Coding Summary HTMLBase 64 LoqwznuyPQr7oUv+PGhlYWQ+PE1 KARQhG59niHZwaJ7MU8gOJW2QWL OBNIBKNX1GOA1ogSN6NWymT4Jei iAv YgyqrOFiAX61LXo3HVY1qPvzCXy clP8miVKpM8u9RoOdJC01eB39OG zuEBCkGlE2YpYdoeubkKMo M1dxPhWciPCnNad+PHRhYmxlIHd vTEFdXBwrQLSrYvMivEfwXE6zNw 9yZGVyLWNvbGxhcHNlOiBj v0caBHLvETglXW4vqGrfO2PfcOC 6SYXdn2h3Qh79bTC+QNUxRRI4zC ffHOihf850UwRoz6vsHFG1 mMCaYNtiDMC6I25oa9N1RGVvCRP fNWO8zZA1mO5elBaefxoxN0UuzU ZkIeR7FFH6yKGkgG9myBqr vcdfuA2nBrx+K77CWE1NBLZOWA2 ZFtl5V7BaGxwdcGH+KK66FYUcUL 44nKBwyIFkr6fqwTc1KxPu EHXzBQR5qOpeFKimj3BoDOHfZ74 rvRGme5G6PPOvlRwowSNfXpQwrB J6cE6mXHtkvewzm1xbromt Wkjzk9aatm85mX56R84yEZloPZX wEBX4FTCpROZplUzngh8pyM1vJa 8+WQtmg4dpo6kuvMs1RnTy KGYqjoJvqJviRCU9m1DoOu40D0I gbFihb9ExZnb3zi41xMOga3V0xQ W3MEppUUEizH2pJPduLqR6 RFTaXoRxpR77fALrTJulHf9hgMa ksZouNK2eAEQkbyymXFCgmQ0eGA NilOBraUevIH9rPMKgnctr h968IoOgNQK1IPUxhGYaF6BsmR3 mGpKaBGGaNKMcJ2LubGOaXCgcR2 53VQldNlV3JDDtquCoX5Ge OGHomOftDzY1x3N3Mj7Yo0Wqqfo oEWC5NJurKIC7MdG1FiHyQiJ6L7 ZeZkl1ZXDbqTelPT9rH2Zv AUApcdphwggvlKL0FIJsEJXvpJ0 1xNSwIOvvFh2lb9L4m478LKXaLC KajS81Ts1tuFtvWXJuxJPU hL1pxrutk6sgmdytRrDfTQGnXPy 5PUf3WIVfnUwrGgXbFVT6JsQ8PE A0hYKxnT7xlGwpkbzcgG1x Oyc+Q22akR7mQKX5ZER7zjpaIMG mqiLfPW60CA04U5TdUnzxyBVioX U+JIVmgcGcfYwaDK7dXpIr j3cxo7AePCgtV5QhNXSpFGzrMse 7TNUbHSA8aLJ7zI6xKTByZOzjv8 E3jRH2M6GghvPmfc9ee1ol WMDvYGhpB71vnDAvz8F0BFQfxHC 6ECYieZjiUyZfmQ82Bpa+PGNvbG wue2DdByapu4snx4uxjTg1 PoLiTHAoraDbyPonIHW5l3CeQf9 1Q01hQGpgXSUyXIPhYDJfSEMfzL llwn1fnJ4nUb6+PGNvbCB3 mJQ8oP6gHAUiWrH3EQkdL992WpV brWLnKfnoa0epb2ncrJq3DbAcFS EwmlFqgGtsIAB4y9FiRy66 B89lPBzvOQErZBFgUGXhYHQujKa qea5ikY7kWw0+PZ8mp1xawq08sF 48dHI+WEAuHWK1wVgtHCzl KGXmoV8tLAyoFfQ6KFWkIsIgnN3 3fPPdLTqaOd3mkQuetLebVL8yNP Beekflp959YwZoo9saVJHy vOGrPTopETS3D85tj1V8DAQsHWC oPTC1dPB4rC4ayAkxefvocRZpyF gwkuGqpPdlKEliSYpaB476 IHRvcDsnPlBhdGllbnQgTmFtZTo 0N7AzAvt7FJAqkBycGY0bfOLkXK nlBi4xfAkqiNlzOG6jEDGq ltmwo610LdSut6doHZPdyBYfJBt zUGU0G69aw2R5XZPfWVFrZSC9wM O4sC3urFvgfaanzMZaoLuc fiOvkAuoJLruFRqnF383VGZhnPa iHbPpvnLxAADgiFN7XP63ED07cN Dkm2W6xRO4A0FkJMJazwdu vtsnqAY2EBFyDXTkvR54Rn0alHz iFe6sDZMoGED8URSovRFqQ1RhmI 9sSqHnIZMxLJFrT8VsyGVp IWjyG103UJcoNnR4OMXsowJqQ9D uTYOkqAiqSxM3r0A1Vl5TL5X7LF 99JU47jFAzz0L2oTB5Z2Rg BAXadgeghbmgxYW8BJHtOZFqaN6 8Pr1asMynFl8iHXNrTUT9STJrgF XtG4KdoC7oFpRzWNUvFQFc R9FptVVpHLmvZ906LTjdIjN8RWV ghmHwZ0PpSQQtkMyaSnP6w9U2Vh 3FWFn0PA21UP59bPQck2H7 zJX5Z6TqNOYflelfhmpxkOT8EMI xCPLnpV72Le0olPltJf5dOSKyZO O5BBVpmHNfS6ZrhZ8tHySx QYWpYKArY6BurIYgSImqR774FNu tOmH4BNXylvTbY1XbPIYoaGdaFl W3j6B1Bi7WXGOdCT68LBR0 nJH6PA92OO80L7DaLmltjCYryFQ +PHRhYmxlIHdpZHRoPScxMDAlJy NjnXumPJ2tUx2bXLRnRSAz zZpneGSrPgRmk5vxQRCbJWhhLG5 vnBlcP6EpkEA6LGYxj6l9Kl84I5 6iS9UzmLD+XUYrhCN2mCD5 uC8aLwJxNbQ6TYhrH751QyQpoSU xSakdf1hkr1uqmNe9ReZ5AWUvjk ZkyDbrCMN5j7FrHn02K42n IHdpZHRoPSIxNSUiIHZhbGlnbj0 yyK1rRn0+IFRklBC1aHZ3hB5uOr ClWtB8KQxsP823RzFdzHWk Moara7pfn9dpwVr5UiBeCRWmggU dbHzrZOM4b6KqDc94U4NyrGzwz3 AqXka9tv50fYSit0D3zSH2 Q5QsWOFwgmldgMSlgDxgYI5iASE ftmnjKQVvrG2nDPLpW5g8GpHmJc Q9EHlvL9VbrqV9MEIkuPRi HEgzUHD7S82jt4E6HGVqBIHjIIQ 9dZQ4sO0ovFibwimezVEyyCxvhx EohPskGMniQMhwU411UONo rApnPRIziI3fULQliPLscOtsKR5 cISEejzmnEc4SONoKCrDiZVPQZB ZQHHGSLXFIUN4BPF03JN22 rSKdz9D3jUK6C9TtOKJjuitginu rxQC0PQEvOPCqkB97wJLbMDdrXl 1di3W9t348SWYdNFBvhH46 Vh4axHhoBXMvbHQZeM8kxjhkv4n misloKtHmPOOdZVg5MKk5AWPcsB mdFvRvNDZ5CjQ8SMQ1mONw fE8uuEwtfrwmgK8tXqb+MDEvMjc zTRh5XnbikPW+ZDLlTDT0kEwnBI mkSCOmqL2iTBKeH0t8FaEq NmF1NTddJ1HxYYJywfcjWv63fA4 iAtQtNrW1KFpdA4XmicY8MURudD MsZWsoPGM7G97ld3G4GFEn SOVwXQO5kIA0wF5eoCcsofdeuRO teHgyvlWnvFdcICxpGOjzV207UK TquRuwTrN3TMjrRJRjPP23 YU82qTKmu5N1hCL8P6KvTGLpgvk rouifbSG5STZiJJXlvF63oBAaKR oeXx2uk2F3j392NOTtRAIb hD07Nx7urBolGVNxwVSLpF3jgrj vi6rdwymeVuQdSUAbLMw9KQh4HZ PeoMzqAuIiLTI7AiV1HBS7 aZQvtU7tdDdkjlklnI8nTuk+RkV AZNgRSG87DH07vWCto9V0mCX6N8 TkMCDwksaqooihsMJ4PIBk DLTofW24nMMnGKbbNg2yq9T9c79 9IUZsSAQjiE61Ro7ajPcqSALpsQ GFvA1omtpbj6jvnzvqZwOp DLReLOz5DYm2JIAvxWqhDdTxXXK 9BnW0KJO2kZGcyV7aiSuotferuR 9wOyc+H9S5Z6LfEbmdmMT+ SC20OXKrSP49dZAqgQQsq3klnSn 3RvKpGSOuDSH8mHdvFUmtw9BsRR LlL35vnLZay6M7VQTebDvg vAChRrYmwIN2oN0bBUrvqcmid3c djsghDmugh6lkym74oN78Y50nBQ dpZHRoPSIzMCUiIHZhbGln jp9mfK2cSw5+LFXxzKZ2lLI5wU1 lGhVmYwK8MLrjZ697PpGjnSHhZb ica3krr8qevZa3SvJtUJZu soPhoAilXIT6s5OpZz76B41kLHz hQATySZZgBXYpJTUvgJvune0ecB 9wIi8+LR4iu5hkdr90vY21 dHI+CTFsVGS6zJlqYFujCSGgbH7 wKGkzMrX7SJIeLgSmiY13nZUvHF pgVe5uaCvtiHzbUJ1fIUCs ssyrc200RvUwl2kuZUTspJEeUVw fJVM4J45mo7U1JQHvUTXbWQM7uX Q6zG8emTdcbyjnpJXrwZig wgOboHimZUcvIWloR802BOVanZw wCjZlrXAwZ0sfglEYKV5eOeksmH Q+UTVbIYU8dXukQBxnDBMz uT6dICAfS0v4IjJaIuC2VMpwN2S oltH8ZFOrlBTbXVRvmVBZvC4fwk ydl8ttdmxoFuNgRXWoTYt8 FIw8RAPvkGbxXgAuISQ6OjR2QVU 1hKCnsU2ihGwfxzxwkT7fApn+Rk lOOjwvdGQ+KLWcCLK7wNjn YDglSXEgjQ4sJKQwY4q4YjJcKdB 8ACldS1QriaY1PRYfuNXzOUMsmX BZeN5azaxdo1ualsxaGtRc SAQeEYz8QAs3AXJjlVupWrOwHRD 8MoJ0WYM8hQHdmV0trDtlzafbtQ 9wOyc+TVJOOjwvdGQ+PHRk VEQ5xVwnVVfoBHXzvT8dMKWeU4x 7WiKiEmN9CJkiJ6HxhcY0JMEjkO RvYDDemBYIbR6ewsiuk3wz fbjuSqJsAINqLAc8IVu8BXMotNk rWaJvVXC7UfK1NIL6nBSqcN0nsV wguqdzuN6rSpf+DUM9WRO6 PL18PN22W8ZqEapatKHsaYK+PHR hYmxlIHdpZHRoPScxMDAlJyBzdH cnNZ0zMu2mTTGbYMHthSzp cHN (more content not included)... Normal [facility] ED Clinical Summaryon 2022 ED Clinical Summary [facility] ? Urgent Care [address] [place] [id number] Clinical Summary PERSON INFORMATION Name: MICHAEL RAMON Age: 37 Years Sex: FEMALE : 1985 MRN: Acct#: Visit Reason: Medical screening exam; [facility] F/U RT FOOT Arrival: 07/16/2022 10:28:51 Discharge: 07/16/2022 11:30:00 LOS: 000 01:02 Check In: 07/16/2022 10:28:51 Checkout: 07/16/2022 11:30:00 Address: [address] [place] [address] PCP: Thu Baldwin DO PROVIDER INFORMATION Provider [...] Home PATIENT EDUCATION INFORMATION Instructions: Hypertension, Adult, [id number] Follow-Up: With: Address: When: Return to this practice Comments: August 13 at 11 a.m. With: Address: When: Thu Baldwin [facility] [place], [place] [id number] [facility] (1) Within 7 to 10 days DIAGNOSIS: Contusion of right foot; Elevated blood pressure reading; Hallux rigidus; Sciatica; Strain, lumbosacral Patient Understands: Yes - Patient/family/caregiver verbalizes understanding of instructions given Comment: Normal [facility] ED Patient Summaryon 023 ED Patient Summary [facility] ? Urgent Care [address] [place] [address] [id number] PATIENT DISCHARGE INSTRUCTIONS Patient Information Name: MICHAEL RAMON Age: 37 Years Date of : 1985 Reason For Visit: Medical screening exam; [facility] F/U RT FOOT Arrival Time: 07/16/2022 10:28:51 Primary Care Physician: Thu Baldwin DO Attending Physician: Mati Bell PA-C Comment: Patient Education With: Address: When: Return to this practice Comments: August 13 at 11 a.m. With: Address: When: Thu Baldwin [address] [place] [address] Business (1) Within 7 to 10 days [...] doctor. This is important. Medicines ? Take nxps-gnx-dzqktvr and prescription medicines only as told by your doctor. Follow directions carefully. ? Do not skip doses of blood pressure medicine. The medicine does not work as well if you skip doses. Skipping doses also puts you at ri (more content not included)... Normal [facility] Urgent Care Note- Provideron 07-16-2022 Urgent Care Note- Provider Patient: MICHAEL RAMON Age: 37 years Sex: FEMALE : 1985 Associated Diagnoses: Contusion of right foot; Hallux rigidus; Sciatica; Strain, lumbosacral; Elevated blood pressure reading Author: Mati Bell PA-C Basic Information Additional information: Chief Complaint from Nursing Triage Note : Chief Complaint 07/16/2022 10:53 EDT Chief Complaint here for [facility] yoana, of foot injury, states it is better but not 100% 07/15/2022 10:00 EDT Chief Complaint right low back pain . History of Present Illness OCCUPATIONAL HEALTH FOLLOW-UP Date of injury: 08/26/2019 Claim #: [id number] Employer: [employer] Mechanism of Injury: She was moving boxes of [employer] when one fell onto the top of her right foot. 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 On 08/26/19 she was moving boxes of [employer] when a box fell off of the cart and landed on the top of her right foot. She was initially on light duty per [employer]'s telehealth visit. When she was not [...] 3 m (more content not included)... Normal [facility] Urgent Care [place] 023 Urgent Care Record [facility] ? Urgent Care [address] [place] [address] PATIENT DISCHARGE INSTRUCTIONS Patient Information Name: MICHAEL RAMON Age: 37 Years Date of : 1985 Reason For Visit: Medical screening exam; [facility] F/U RT FOOT Arrival Time: 07/16/2022 10:28:51 Primary Care Physician: Thu Baldwin DO Attending Physician: Mati Bell PA-C Comment: Visit Diagnosis: Diagnoses This Visit Contusion of right foot (S90.31XA) Elevated blood pressure reading (R03.0) Hallux rigidus (M20.20) Medical screening exam ([id number]) Sciatica (M54.30) Strain, lumbosacral (S39.012A) If you [...] 11 a.m. With: Address: When: Thu Baldwin [address] [place] [id number] Business (1) Within 7 to 10 days Medication Information: The exam and treatment you received today in the [facility] were for an urgent problem and are not intended as complete care. It is important for you to follow up with a doctor, nurse practitioner, or physician?s doctor's assistant for ongoing care. If your symptoms [...] so we can reach you if necessary. [facility] has provided you with a complete list of medications post discharge. Please inform your physician primary care sports medicine/provider of your visit and for further instruction [...] 2 diabetes mellitus (more content not included)... [facility] Progress Note-Physicianon Progress Note-Physician DATE OF [...] time being. Ulices Longoria M.D. JOB #: [id number] [Electronically Signed on: 07/15/2022 14:17 EDT] Ulices Longoria MD [Verified on: 07/15/2022 14:17 EDT] Ulices Longoria MD [Transcribed on: 07/15/2022 13:04 EDT] [facility] Coding Summaryon 07-04-2022 Coding Summary HTMLBase 64 FyvmvxyxBAn0xOp+PGhlYWQ+PE1 DWDYuQ95yeMJrfV7PL2nRZZ7TOU AKMCMXTV4CPK9bqEG5IMaoV5Lwx iAv JdzqqXHsEL89QRs3DVR8uAxtNLn vaW6wvOZuE0w1CqQcXH87cG31PI tmDWIyZnV3KnYfespkjKWh L8uxEeNyxJWfHml+PHRhYmxlIHd kWVBaCMhrEJMgPxCavMloRV7rEf 9yZGVyLWNvbGxhcHNlOiBj s3auYZOoHLhhRD6tbVsvV4QypCC 8DQGph7y6Ew03kKF+ZZQbEIR9iD uzZKehw875IsDrh8xnKQT6 nKMzRPbkHDG1C68ld2U4SFFtOVF uPKQ3sNA4iE8wgBdqylgkJ9KjqV JqEyL6IZT7oUMmzK0umLcs ykuknZ8cTqs+Y68VMD0FHMXPEX0 MMvu3U7DyWdrqlRJ+LK58VMUlIF 21qGQxfRNgx3gjdYf4ViHg MCAjTAL5qQhsVOqxt3AaOUGrI99 sfINuh5T8KWAosBmwdACqYyTquI W5oW5yQEaxtqpng8iigaco Mtkxs3hncp16aQ52J85jIWtqZSO fLID2NXEeHJHgeJwenf9jqI8iRf 8+CUjdn5qzi3bdcDc3FpCu TZFerqJtaWacXDV6e7KeYp07L1W ejUhtc3CdUit7pt56cGKdv6S3wJ G0XTymPMSggL0iEQcjRwR3 WUByTeNjqM31zUDbHQyqWx2czIi xbTzkGQ7cOEEumldbYMQqfS8bUB TesCNfsYzoVK5uQHIygnxc p023GlXfJHL5WKIswMKjN9JsqE2 cKkDaHKGsDDUiK0CtsQJcHKboU6 21EYedIjL1NHTnleRyT8Fw NOAlpRqaSoM7a9V8Oy5Jk3Sjsoy vBXI5LLyfXHZ3KhQ4RtImFhK7L4 UuEge9FAGksWsgNO3mN4Zs RDLdszpnbatxjFT0YXRqVYVulB1 9uTDwFGjtIz1sc3I2r057DDFfHJ ObcC82Cq7rcUxpQKBqtNGQ rE7unupeh9tmnrsnGkOiOBKgZDo 4PSz0HJHvlCecPdEcLNJ9BxV3EQ O9tSFksP2brUhlpqdzjN5x Oyc+B71bcR7wFTX7KKK3hserZTQ eajDgXF88MP77Q3YvPbweyEBzoU U+VZNgnqHfzFxgKS7fQwTh i3tvf1AaBUzwY9GqPDClHHmcFxo 0IGTjUZV9gHQ2nW3pHARrZVmor3 G5fKJ8A6CymhHvws5iy8in VMGoAOexT67yeGTpe6N7RTEsnRP 5WTKgvBhzEsXcfD40Qif+PGNvbG ray4IuWlyzh3dex8hqbEc4 IsDwXLAchjQqzBwcRFS9n9RhOb7 1Y98eQZuyTDQgNGVgUZOjQZJmnA spao4unQ3pYh3+PGNvbCB3 aZI7sB2nEFWlXyF8JNgwV076OyV juKFbUbllj8nxg1rnyKn4WsWiXH HckgOthRqjZZW2o4AlOk56 B04wGBufZDXjBIKsQNDfGEJruVh dzq7cpQ3mCw9+CN0wp3bbnl37uL 48dHI+LVCgEYD0qNunLZar EPCmzX9uYNuoUfB7KVXwFeQxiQ7 8aWJeTGmnOu4bqJiklAnaRY6fOZ Opofvas547XySsx1qnOJGc eLDiOTiwJNZ4B06hh4C1LZKkDLW iRMU5pMD5yR7zpLrjslnpkSWefR npalLmvLwuCNtvEOyaR147 IHRvcDsnPlBhdGllbnQgTmFtZTo 5M6KqFgw5YLPyqKyzRH1diCKlOT knOy5qdUfnzNbrDD7bNGAm qsido252HlXdb1ydWASvnPDzFCs yBYV8U26cy1F2IWLqIXPjBRQ8zC E2kI0rpOetvqqbkKHkcSar hmBdzPnqSRsdBSjsG122DWMncDi rHwScdtXaDYOsnWU4LY38NZ65bA Naa8H2yNB5P0PaRDItpjfp lezxuIM5TMOcANCmtY85Ux4gdPd dQv9nVRWrNZB3WAVnnLQdD4CdnN 8lXnMsDXDnLWNpY0JanBGd HPguC573RWqhDiP5VHRpdrDyJ8S wNYAlcHxzHdG5v2E7Tg3JV9S9PA 64QU27gJMam5S1uBN2D3Gf UBDouvoadmtifQU5NKPgVMGkdQ7 5Ii8zlOygJe0oTQEtKFK8SIRotR NwR6XsiF9eOfCdQUCuSSDe M7AzqLOnGHbqV789NFqsVxT6GJB owlWzP2LxXVXoyWypZuM7p5A6Xd [id number] gYQ5D0MgLASkbvciweaqzET4UKR sZAMnmV29Dg3vkOzpRs1yHVJjVD N0SZRgdTIeT7EkeX6rVhOk IHLzKRCaA5BckRRkBFpzN015AKw gOtP5KLQkwjSuD2WmJBNwlAfqSh A6u2M4Eo6ISNMmWS00GDW4 bYT1HP82IJ72Q2LqWvlqePNcvDS +PHRhYmxlIHdpZHRoPScxMDAlJy TejGlmNT5wSe2tIWDaEBJr mVpvuVPpJmOas7wxUSGxWPdsKU5 epMexF4JgbQG1XPUkr8w5Yh99V8 6jZ3InwKH+TOAmlVM7bZY1 eG2pBoNaXjP2WXlwR093DlLmrZZ zGncxw5aoj0hflSc3PsY5YKNger ZwcBobHDO7i7NqQt23X93a IHdpZHRoPSIxNSUiIHZhbGlnbj0 mvD3eAb7+GFEmrVB5iFW5oQ4jIe LxXxH3EDkoX057SrAesUZp Qzyjz7rwu7mnqQk3XbJuPXEjlwQ vcWjaQPU8a4RqFj75J6DyrUtqt0 QxYho5go48tWJzw5O7kYT3 X3OmHCVkoutvhOGbeLbdSB8xXCH erwmlOGPhtH1vNPTfC6k8HqHsHt I1IUudA5TpygD0HSDuiMRc BVmpYQK2T91rv8I8SMDfWWQdACX 4cSP6aT7gkOawguabnHJxyPfhlh OwcWojJPczVGgzO754KVSh fLrrTGYgyT4zAKMxyIEgfHfjWL1 kANAqyeigHq9WTMxJEuByOBTBWI BDCFNXMVLQDC7YSR14RJ52 zMGqo3F5zFV0M5GjKFGyizudiul hhZU5RVJhWAAbgI95oKKmESktJx 4mw0C2u738GQWgQXHqwZ63 Oo3krFizDEFiwZLRyG4opfkhc7c xxeezSbFcKSHmADw5ABh5CSEgvH fmMeOfEUV8TxE5RZH6eXSu nS0lxAdeyfsgtI2rAlh+MDEvMjc eEKs4FxsmxTF+KHHaKDV8hXugHD odZVNguP4zVAQpT4o1DoAe KfS9KRthB5BxDTAysidsEq92cL8 pQhMzRvT1SRhnP4IuxkU5MGXfqB FfVEffUER9M15tj4H8KJKw ZQAoEFJ1uXP8xV3tbXdetqdwoOZ bsAyajnQsiDioGMerCQffO140RR SycBvbPqL9HSykAWSbLD20 YQ10gCJvz7Z2xYZ0I0SeTEXlufj sjllxhUY6KRZaRNXfwV15hYGhPU bxXn3bi9T6j199WLZpROPj yO33Bv4lgOsvVKUiyNKEpX2mkab au4krwzxeQoTpPTBpOPl6OCm0IQ EpmGhyLpRiOUH4HkU3QTS1 vJRunU8nmLryhnxcoK3jWsn+RkV NMReMJH43YB65yBHqr6Z3hMA9D0 AqKUHslkqptijzdZQ9BNDs TCImnG37bZFeTYyySw3hw7K4l32 9QBViRYVffK17Pg8xeOulOAEycV MMuH4jihnjr1moxoiuOmCl DYRxMIr5RUz8RMBmsHecStJySUU 6FpO5FVH5hROhfW2znQeuthqiwW 9wOyc+GjDppMJabE3kLH25 oCYddUgowvB5M3GzQwduhQD+PC9 4PNYvOJ08lZGjePSlk4uswAa2Av CcVVBvBKU2qFcuFGqfd2Qo TTVrR08ynSDeo5A7BIHkxSlybPF jOwSfsIB0wV9wDZpvdkxsg8wohr suBalzn1cojx46gH95Z03q IHdpZHRoPSIzMCUiIHZhbGlnbj0 afK3yOj2+SSWnwMO4cHQ5rY5tGw AcMgU5CEfxS031ShPeuJDj Whivd7vtp2qxdUw5KkRkOJAzrmQ oxHvuPCR0h2ChRc00O38gHCzvBH BbJLFyHMCeMFUzjEoxnh5f vK0fUp3+GX4mw9hnrx05rH67gON +DKNmEDA7rUolHUbnHGFaoH5wWY ozZpR6TEEyOqFdnM37tTYe BXlvSg1ztQiltBngQI6kMRTwbyd ta089WiUid2jkKWAuxZBjSWirBZ M6P74hb2Z6WHPpXSTuFVA3 jLJ6fJ8tpPzhubdgtPKygHqajwI ixEqmXNghVMvoF358FZCxjKzpRh PpmRSrH9tuybGVVW0iLtof dGQ+YFSkAIS9jMnzKYdjJKLygS5 xHQHxN5b2WpHeBiU1BZijR6Hbhl F4LSEqxOCvLLZyfMTEsL9x wpqgi9vikrrmDxKoGISqHZq4JHy 7EARpoYgkBcAaFTQ8TpA4KUX1uO VhdX6yaBxkhescoG9cMlg+ RklOOjwvdGQ+HBIwQFX0jEyiTAx cUORzfS9pXIFqO6i5DhPhGtY2PK ioL0FlitQ3HFXwtBQmOXVs tGFVsN9jvhvmp5nizdzcIiXbMGU uXSl6CYn5NTTxyXziPwWrICM3Nb D6UKV3yPDqhR1ivOezljpx bT8lKbv+TVJOOjwvdGQ+PHRkIHN 2lRjiIXzrURGlnN8pQFEfT0k0Wh JgTyE9DQgiS8ToegN4EYAc iCAgKGIpiBVLkA0ndxonx5ecqjo yEqDrANPfYEq6JCl4CWDgeFbvSv SiTSQ7LzB1QZL0qPTzxH9w kDyhvuhrwW6eIee+EWL7YCK4MQ3 3AS08D9KpJcsgbMPgbCS+PHRhYm xlIHdpZHRoPScxMDAlJyBz dHl (more content not included)... Normal [facility] Provider Orderson 06-21-2022 Provider Orders [id number] Normal [facility] MRI LSPINE WO CONon 04-12-19 MRI [...] MALATHI LOUIS Date: 2022-04-12 11:23 Normal [facility] POINT OF CARE GLUCOSEon 10-09 Glucose [Mass/Vol] 124 mg/dL Critically high 74-106 T [facility] Comment on above: Performed By: #### P OCGLUC #### [facility] [address] [address] [address] Johann Spring PREG HCG QUALon 11-05-2021 , QUAL Negative Normal NEGATIVE [facility] Comment on above: Performed By: #### P REG #### [facility] [address] [address] [address] Johann Spring XR FOOT RT 2Von [...] WEN MCCABE Date: 2021-11-05 13:58 Normal [facility] XR CHEST 2 Von 10-27-2021 XR CHEST [...] MALATHI LOUIS Date: 2021-10-27 07:17 Normal [facility] Covid-19 PCR (CVDTBH)on SARS-CoV-2 (COVID-19) RNA SHEFALI+probe Ql (Unsp spec) Detected Critically abnormal NOT DETECTED [facility] Comment on above: Result Comment: This test is not yet approved or cleared by the [place] FDA. When there are no FDA-approved or cleared tests available, and other criteria are met, FDA can make tests available under an emergency access mechanism called an Emergency Use Authorization (EUA). The EUA for this test is supported by the [place] of Health and Human Service's declaration that [...] used). Performed By: #### C VDTBH #### [facility] [address] [place] [address] Dr. Johann Spring PREG HCG QUALon 10-08-2021 , QUAL Negative Normal NEGATIVE [facility] Comment on above: Performed By: #### P REG #### [facility] [address] [place] [address] Dr. Johann Spring CBC AUTO DIFFon 10-01-2021 BASO # 0.0 103/ul Normal 0.0-0.1 [facility] Comment on above: Performed By: #### C BC #### [facility] [address] [place] [address] Dr. Johann Spring Basophils/100 WBC (Bld) 0.3 % Normal 0.2-2.0 [facility] Comment on above: Performed By: #### C BC #### [facility] [address] [place] [address] Dr. Johann Spring EO # 0.1 103/ul Normal 0.0-0.7 [facility] Comment on above: Performed By: #### C BC #### [facility] [address] [place] [address] Dr. Johann Spring Eosinophils/100 WBC (Bld) 1.7 % Normal 0.9-7.0 [facility] Comment on above: Performed By: #### C BC #### [facility] [address] [place] [address] Dr. Johann Spring Erythrocyte distribution width (RBC) [Ratio] 13.3 % Normal 11.0-15.0 [facility] Comment on above: Performed By: #### C BC #### [facility] [address] [place] [address] Dr. Johann Spring Hematocrit (Bld) [Volume fraction] 38.0 % Normal 36.0-48.0 [facility] Comment on above: Performed By: #### C BC #### [facility] [address] [place] [address] Dr. Johann Spring Hemoglobin (Bld) [Mass/Vol] 12.4 g/dL Normal 12.0-16.0 [facility] Comment on above: Performed By: #### C BC #### [facility] [address] [place] [address] Dr. Johann Spring IG # 0.02 10e3/ul Normal 0.00-0.03 [facility] Comment on above: Performed By: #### C BC #### [facility] [address] [place] [address] Dr. Johann Spring IG % 0.3 % Normal 0.0-0.5 [facility] Comment on above: Performed By: #### C BC #### [facility] [address] [place] [address] Dr. Johann Spring LYMPH # 2.6 103/ul Normal 1.2-3.8 [facility] Comment on above: Performed By: #### C BC #### [facility] [address] [place] [address] Dr. Johann Spring Lymphocytes/100 WBC (Bld) 32.9 % Normal 20.5-60.0 [facility] Comment on above: Performed By: #### C BC #### [facility] [address] [place] [address] Dr. Johann Spring MANUAL DIFF REQ NO Normal [facility] Comment on above: Performed By: #### C BC #### [facility] [address] [place] [address] Dr. Johann Spring MCH (RBC) [Entitic mass] 28.2 pg Normal 26.7-34.0 [facility] Comment on above: Performed By: #### C BC #### [facility] [address] [place] [address] Dr. Johann Spring MCHC (RBC) [Mass/Vol] 32.6 g/dL Normal 29.9-35.2 [facility] Comment on above: Performed By: #### C BC #### [facility] [address] [place] [address] Dr. Johann Spring MCV (RBC) [Entitic vol] 86.4 fL Normal 81.0-99.0 [facility] Comment on above: Performed By: #### C BC #### [facility] [address] [place] [address] Dr. Johann Spring MONO # 0.3 103/ul Normal 0.3-0.8 [facility] Comment on above: Performed By: #### C BC #### [facility] [address] [place] [address] Dr. Johann Spring Monocytes/100 WBC (Bld) 4.1 % Normal 1.7-12.0 [facility] Comment on above: Performed By: #### C BC #### [facility] [address] [place] [address] Dr. Johann Spring NEUT # 4.8 103/ul Normal 1.4-6.5 [facility] Comment on above: Performed By: #### C BC #### [facility] [address] [place] [address] Dr. Johann Spring Neutrophils/100 WBC (Bld) 60.7 % Normal 43.0-75.0 [facility] Comment on above: Performed By: #### C BC #### [facility] [address] [place] [address] Dr. Johann Spring Platelet mean volume (Bld) [Entitic vol] 10.1 fL Normal 9.5-13.5 [facility] Comment on above: Performed By: #### C BC #### [facility] [address] [place] [address] Dr. Johann Spring PLT 205 103/ul Normal 150-450 [facility] Comment on above: Performed By: #### C BC #### [facility] [address] [address] [address] Johann Spring RBC 4.40 106/ul Normal 4.20-5.40 [facility] Comment on above: Performed By: #### C BC #### [facility] [id number] Johann Spring WBC 7.8 103/ul Normal 4.0-11.0 [facility] Comment on above: Performed By: #### C BC #### [facility] [id number] Johann Spring CT FOOT RT WO [...] by: WEN MCCABE Date: 2021-06-11 07:07 Normal [facility] Vital Signs Date Time Vital Sign Value Performing Clinician Facility 05-23-2023 10:32-040 Body height 162.56 cm DO Shelley Mc Work Phone: [facility] 05-23-2023 10:32-0400 Body mass index (BMI) [Ratio] 57.3 kg/m2 DO Shelley [facility] Work Phone: [facility] 05-23-2023 10:32-0400 Body weight 151.49 kg DO Shelley [facility] Work Phone: [facility] 05-23-2023 10:32-0400 Diastolic blood pressure 78 mm[Hg] DO Shelley Mc Work Phone: [facility] 05-23-2023 10:32-0400 Heart rate 78 /min DO Shelley Mc Work Phone: [facility] 05-23-2023 10:32-0400 SaO2% (BldA) [Mass fraction] 95 % DO Shelley Mc Work Phone: [facility] 05-23-2023 10:32-0400 Systolic blood pressure 130 mm[Hg] DO Shelley Mc Work Phone: [facility] 04-24-2023 14:45-0500 Diastolic blood pressure 80 mm[Hg] DO Shelley Mc Work Phone: [facility] 04-24-2023 14:45-0500 Heart rate 83 /min DO Shelley Mc Work Phone: [facility] 04-24-2023 14:45-0500 Respiratory rate 18 /min DO Shelley Mc Work Phone: [facility] 04-24-2023 14:45-0500 SaO2% (BldA) [Mass fraction] 97 % DO Shelley Mc Work Phone: [facility] 04-24-2023 14:45-0500 Systolic blood pressure 124 mm[Hg] DO Shelley Mc Work Phone: [facility] 04-24-2023 12:37-0500 Body height 162.56 cm DO Shleley Mc Work Phone: [facility] 04-24-2023 12:37-0500 Body temperature 98.3 [degF] DO Shelley Mc Work Phone: [facility] 04-24-2023 12:37-0500 Body weight 159.21 kg DO Shelley Mc Work Phone: [facility] 04-17-2023 11:15-0500 Body height 160.02 cm Imad Asaad Other [employer] Other 04-17-2023 11:15-0500 Body mass index (BMI) [Ratio] 66.24 kg/m2 Imad Asaad Other [employer] Other 04-17-2023 11:15-0500 Body weight 169.65 kg Imad Asaad Other [employer] Other 03-18-2023 09:00-0500 Body height 160.02 cm Shelley Mc Other [facility] 03-18-2023 09:00-0500 Body mass index (BMI) [Ratio] 66.31 kg/m2 Shelley Mc Other [employer] Other 03-18-2023 09:00-0500 Body weight 169.83 kg Shelley cM Other [employer] Other 03-18-2023 09:00-0500 Body weight 169.82 kg DO Shelley Mc Work Phone: [facility] 03-18-2023 09:00-0500 Diastolic blood pressure 84 mm[Hg] Shelley Mc Other [facility] 03-18-2023 09:00-0500 Respiratory rate 18 /min Shelley Mc Other [employer] Other 03-18-2023 09:00-0500 SaO2% (BldA) [Mass fraction] 95 % Shelley Mc Other [employer] Other 03-18-2023 09:00-0500 Systolic blood pressure 120 mm[Hg] Shelley Mc Other [facility] 03-11-2023 12:00-0500 Diastolic blood pressure 98 mm[Hg] DO Thu Nicolasa Work Phone: [facility] 03-11-2023 12:00-0500 Heart rate 70 /min DO Thu Nicolasa Work Phone: [facility] 03-11-2023 12:00-0500 Respiratory rate 18 /min DO Thu Nicolasa Work Phone: [facility] 03-11-2023 12:00-0500 SaO2% (BldA) [Mass fraction] 95 % DO Thu Nicolasa Work Phone: [facility] 03-11-2023 12:00-0500 Systolic blood pressure 156 mm[Hg] DO Thu Nicolasa Work Phone: [facility] 03-11-2023 10:07-0500 Body height 162.56 cm DO Thu Nicolasa Work Phone: [facility] 03-11-2023 10:07-0500 Body weight 172.36 kg DO Thu Nicolasa Work Phone: [facility] 02-20-2023 10:00-0500 Body height 160.02 cm Shelley Mc Other [facility] 02-20-2023 10:00-0500 Body mass index (BMI) [Ratio] 67.5 kg/m2 Shelley Mc Other [employer] [facility] [employer] Other 02-20-2023 10:00-0500 Body weight 172.87 kg Shelley Mc Other [employer] Other 02-20-2023 10:00-0500 Body weight 172.86 kg DO Shelley Mc Work Phone: [facility] 02-20-2023 10:00-0500 Diastolic blood pressure 100 mm[Hg] Shelley Mc Other [facility] 02-20-2023 10:00-0500 Respiratory rate 18 /min Shelleylidia Mc Other [employer] Other 02-20-2023 10:00-0500 SaO2% (BldA) [Mass fraction] 98 % Shelleylidia Mc Other [facility] [employer] Other 02-20-2023 10:00-0500 Systolic blood pressure 138 mm[Hg] Shelley Mc Other [facility] 02-19-2023 09:15-0500 Body height 160.02 cm Wen Pollack Other [facility] 02-19-2023 09:15-0500 Body mass index (BMI) [Ratio] 67.48 kg/m2 Wen Pollack Other [employer] [facility] [employer] Other 02-19-2023 09:15-0500 Body weight 172.82 kg Wen Pollack Other [employer] Other 02-19-2023 09:15-0500 Body weight 172.81 kg DO Shelley Mc Work Phone: [facility] 02-19-2023 09:15-0500 Diastolic blood pressure 81 mm[Hg] Wen Pollack Other [facility] 02-19-2023 09:15-0500 SaO2% (BldA) [Mass fraction] 98 % Wen Pollack Other [employer] Other 02-19-2023 09:15-0500 Systolic blood pressure 137 mm[Hg] Wen Pollack Other [facility] 01-15-2023 13:45-0500 Body height 160.02 cm Imad Asaad Other [employer] Other 01-15-2023 13:45-0500 Body mass index (BMI) [Ratio] 70.71 kg/m2 Imad Asaad Other [employer] Other 01-15-2023 13:45-0500 Body weight 181.08 kg Imad Asaad Other [employer] Other 01-15-2023 13:45-0500 Diastolic blood pressure 88 mm[Hg] Imad Asaad Other [employer] Other 01-15-2023 13:45-0500 Systolic blood pressure 147 mm[Hg] Imad Asaad Other [employer] Other 12-12-2022 09:45-0400 Body height 160.02 cm Imad Asaad Other [employer] Other 12-12-2022 09:45-0400 Body mass index (BMI) [Ratio] 70.49 kg/m2 Imad Asaad Other [employer] Other 12-12-2022 09:45-0400 Body weight 180.53 kg Imad Asaad Other [employer] Other 12-12-2022 09:45-0400 Diastolic blood pressure 94 mm[Hg] Imad Asaad Other [employer] Other 12-12-2022 09:45-0400 Systolic blood pressure 167 mm[Hg] Imad Asaad Other [employer] Other 02-20-2022 09:45-0500 Body height 160.02 cm Wen Pollack Other [employer] Other 02-20-2022 09:45-0500 Body mass index (BMI) [Ratio] 72.53 kg/m2 Wen Pollack Other [employer] Other 02-20-2022 09:45-0500 Body temperature 98.2 [degF] Wen Pollack Other [employer] Other 02-20-2022 09:45-0500 Body weight 185.75 kg Wen Pollack Other [employer] Other 02-20-2022 09:45-0500 Diastolic blood pressure 89 mm[Hg] Wen Pollack Other [employer] Other 02-20-2022 09:45-0500 SaO2% (BldA) [Mass fraction] 98 % Wen Pollack Other [employer] Other 02-20-2022 09:45-0500 Systolic blood pressure 149 mm[Hg] Wen Pollack Other [employer] Other 02-07-2021 16:30-0500 Body height 160.02 cm Wen Pollack Other [employer] Other 02-07-2021 16:30-0500 Body mass index (BMI) [Ratio] 60.22 kg/m2 Wen Pollack Other [employer] Other 02-07-2021 16:30-0500 Body weight 154.22 kg Wen Pollack Other [employer] Other 02-07-2021 16:30-0500 Diastolic blood pressure 90 mm[Hg] Wen Pollack Other [employer] Other 02-07-2021 16:30-0500 SaO2% (BldA) [Mass fraction] 95 % Wen Pollack Other [employer] Other 02-07-2021 16:30-0500 Systolic blood pressure 137 mm[Hg] Wen Pollack Other [employer] Other 12-06-2020 10:00-0400 Body height 160.02 cm Wen Pollack Other [employer] Other 12-06-2020 10:00-0400 Body mass index (BMI) [Ratio] 61.11 kg/m2 Wen Pollack Other [employer] Other 12-06-2020 10:00-0400 Body weight 156.49 kg Wen Pollack Other [employer] Other 12-06-2020 10:00-0400 Diastolic blood pressure 86 mm[Hg] Wen Pollack Other [employer] Other 12-06-2020 10:00-0400 SaO2% (BldA) [Mass fraction] 96 % Wen Pollack Other [employer] Other 12-06-2020 10:00-0400 Systolic blood pressure 125 mm[Hg] Wen Pollack Other [employer] Other Encounters Encounter Date Encounter Type Care Provider Facility Start: 06-16-2023 ambulatory SAM HERBERT Facility :[facility] Start: 06-13-2023 ambulatory Bia Rodriguez ty:[facility] Start: 06-12-2023 End: 06-13-2023 ambulatory [facility] Facility:[facility] Start: 05-23-2023 End: 05-23-2023 ambulatory DO Shelley A Mc Work Phone: [facility] Work Phone: Start: 05-23-2023 End: 05-23-2023 Patient encounter procedure DO Shelley Mc Work Phone: [facility] [place] Work Phone: Start: 05-16-2023 End: 05-17-2023 ambulatory SAM Tomas PEEWEE Facility:[facility] Start: 05-15-2023 End: 05-15-2023 ambulatory RIO SCHULZ Not Available Start: 05-08-2023 End: 05-09-2023 ambulatory [facility] Facility:[facility] Start: 05-01-2023 End: 05-01-2023 ambulatory Imad Asaad Facility:[facility] Start: 05-01-2023 End: 05-01-2023 ambulatory DO Shelley A Jesusita Work Phone: [facility] Work Phone: Start: 05-01-2023 End: 05-01-2023 Patient encounter procedure DO Shelley Jesusita Work Phone: [facility]-Ultrasound Cntr for Breast Car Start: 04-29-2023 End: 04-29-2023 ambulatory RIO SCHULZ Not Available Start: 04-25-2023 Non-patient / Non-visit DO Wendy sharlene Mc Work Phone: [facility] Work Phone: Start: 04-24-2023 Non-patient / Non-visit DO Wendy sharlene Mc Work Phone: [facility] Gastroenterology Work Phone: Start: 04-24-2023 End: 04-24-2023 ambulatory Shelley A Mc Facility:[facility] Start: 04-24-2023 End: 04-24-2023 Admission to same day surgery center DO Shelleylidia Mc Work Phone: [facility]-Digestive [facility] Work Phone: Start: 04-24-2023 End: 04-24-2023 ambulatory DO Shelleylidia Mc Work Phone: [facility] Work Phone: Start: 04-23-2023 End: 04-23-2023 ambulatory Shelley Mc Facility:[facility] Start: 04-17-2023 Patient encounter procedure Imad Asasonal [facility] Gastroenterology Start: 04-17-2023 End: 04-17-2023 ambulatory Rio Schulz [facility] Work Phone: [employer] Other Comment on above: Major depressive dis order with current active episode, unspecified depression episode severity, unspecified whether recurrent (CMS/HCC) Start: 04-08-2023 End: 04-08-2023 ambulatory Shelley Mc Other [employer] Other Start: 04-08-2023 Encounter by patricia Mc [facility] [place] Start: 04-04-2023 End: 2023 ambulatory SAM HERBERT Facility:[facility] Start: 04-02-2023 End: 04-02-2023 ambulatory CLINTON MULLER Not Available Start: 03-25-2023 End: 03-25-2023 ambulatory RIO SCHULZ Not Available Start: 03-18-2023 End: 03-18-2023 ambulatory Shelley Mc Other [employer] Other Start: 03-18-2023 Office outpatient vi sit 15 minutes Shelley Mc [facility] [place] Start: 03-18-2023 End: 03-18-2023 Patient encounter procedure DO Shelley Mc Work Phone: [facility] [place] Work Phone: Start: 03-13-2023 End: 03-14-2023 ambulatory Thu Nicolasa Facility:[facility] Start: 03-11-2023 End: 03-11-2023 ambulatory Shelley Mc Facility:[facility] Start: 03-11-2023 End: 03-11-2023 Admission to same day surgery center DO Thu Nicolasa Work Phone: [facility]-Ultrasound Main [place] Work Phone: Start: 03-11-2023 End: 03-11-2023 ambulatory DO Thu G Nicolasa Work Phone: [facility] Work Phone: Start: 02-27-2023 End: 02-27-2023 ambulatory Shelley Mc Other [employer] Other Start: 02-27-2023 Encounter by patricia Mc [facility] Start: 02-24-2023 End: 02-24-2023 ambulatory Imad Asaad Other [employer] Other Start: 02-24-2023 Telephone encounter Imsonal Martinez [facility] Start: 02-20-2023 End: 02-20-2023 ambulatory Shelley Mc Other [employer] Other Start: 02-20-2023 Office outpatient ne w 45 minutes Shelley Mc [facility] Start: 02-19-2023 Office outpatient vi sit 25 minutes Wen Pollack [facility] Start: 02-19-2023 End: 02-19-2023 ambulatory Wen Pollack [facility] [employer] Other Start: 02-19-2023 End: 02-20-2023 Patient encounter procedure DO Thuniraj Orourkee Work Phone: [facility] Work Phone: Start: 02-19-2023 End: 02-19-2023 Patient encounter procedure DO Shelley Mc Work Phone: [facility] Work Phone: Start: 02-06-2023 End: 02-06-2023 ambulatory THU BALDWIN Not Available Start: 02-04-2023 End: 02-05-2023 ambulatory RIO Etelvina SCHULZ Not Available Start: 01-24-2023 End: 01-24-2023 ambulatory Thu Nicolasa Facility:[facility] Start: 01-24-2023 End: 01-25-2023 ambulatory Sam Herbert MD Facility:[facility] Start: 01-22-2023 End: 01-22-2023 ambulatory Thu Nicolasa Facility:[facility] Start: 01-17-2023 End: 03-21-2023 ambulatory Lorenzo Costa DPM Facility:[facility] Start: 01-15-2023 End: 01-15-2023 ambulatory Imad Asaad Other [employer] Other Start: 01-15-2023 Office outpatient vi sit 25 minutes Imad Asaad [facility] Start: 01-11-2023 End: 03-20-2023 ambulatory Mati Bell Facility:[facility] Start: 01-10-2023 End: 01-11-2023 ambulatory SAM HERBERT Facility:[facility] Start: 01-10-2023 End: 01-11-2023 ambulatory Sam Herbert MD Facility:[facility] Start: 12-24-2022 End: 12-24-2022 ambulatory Thu G Nicolasa Facility:[facility] Start: 12-24-2022 End: 12-24-2022 Patient encounter procedure DO Thu Nicolasa Work Phone: [facility] Work Phone: Start: 12-12-2022 End: 12-12-2022 ambulatory Imad Asaad Other [facility] [employer] Other Start: 12-12-2022 Office outpatient ne w 45 minutes Nuryad Juan [facility] Start: 12-11-2022 End: 12-12-2022 ambulatory [facility] Facility:[facility] Start: 12-04-2022 End: 12-04-2022 ambulatory Thu Nicolasa Facility:[facility] Start: 11-18-2022 End: 11-19-2022 ambulatory [facility] Facility:[facility] Start: 10-07-2022 End: 10-07-2022 ambulatory Keily Duvall Facility:[facility] Start: 10-01-2022 End: 10-01-2022 ambulatory [facility] Facility:[facility] Start: 08-12-2022 End: 12-25-2022 ambulatory Ulices Longoria Facility:[facility] Start: 07-16-2022 End: 07-16-2022 ambulatory [facility] Facility:[facility] Start: 07-15-2022 End: 07-16-2022 ambulatory Thu Nicolasa Facility:[facility] Start: 06-21-2022 End: 01-13-2023 ambulatory [facility] Facility:[facility] Start: 04-12-2022 End: 04-13-[address] MALATHI LOUIS Facility: Start: 02-20-2022 Office outpatient vi sit 25 minutes [facility] Start: 02-20-2022 End: 02-20-2022 ambulatory DO Thu G Nicolasa Work Phone: [facility] Work Phone: Start: 02-20-2022 End: 02-20-2022 Patient encounter procedure DO Thu Nicolasa Work Phone: [facility] Start: 11-06-2021 End: 11-07-[address] YAN STRICKLAND Facility:[facility]1 Start: 11-01-2021 ambulatory LOR CHEEK Faci lity:H1 Start: 10-30-2021 Encounter for preprocedural cardiovascular examination LOR CHEEK [facility] Start: 10-26-2021 End: 10-27-2021 ambulatory LOR CHEEK Facility:[facility]1 Start: 10-26-2021 End: 10-27-2021 Encounter for preprocedural cardiovascular examination LOR CHEEK Facility:[facility]1 Start: 10-08-2021 End: 10-08-2021 ambulatory LOR Shaffer [facility] Facility:[facility]1 Start: 10-02-2021 Encounter for other preprocedural examination [facility] Start: 10-02-2021 Encounter for preprocedural laboratory examination LOR CHEEK [facility] Start: 10-01-2021 End: 10-02-2021 ambulatory LOR Shaffer [facility] Facility:[facility]1 Start: 10-01-2021 End: 10-02-2021 Encounter for preprocedural laboratory examination LOR CHEEK Facility:[facility]1 Start: 06-09-2021 End: 06-10-2021 ambulatory LOR Shaffer [facility] Facility:[facility]1 Start: 02-07-2021 End: 02-07-2021 ambulatory Wen Pollack Other [facility] Other Start: 02-07-2021 Office outpatient vi sit 25 minutes [facility] Start: 12-06-2020 Office outpatient ne w 45 minutes [facility] Procedures Date Procedure Procedure Detail Performing Clinician Start: 05-01-2023 Ultrasonography of liver DO Shelley Jesusita Work Phone: Start: 04-24-2023 Esophagogastroduodenoscopy DO Shelley Cornel cisneros Work Phone: Start: 03-11-2023 Ultrasonic guidance for needle biopsy DO Thu Baldwin Work Phone: Start: 12-24-2022 Ultrasound elastography of liver DO Toni Baldwin Work Phone: Plan of Treatment Date Care Activity Detail Author Start: 09-07-2023 Influenza vaccination Influenza Vacc ine (#1) [facility] Comment on above: Postponed from 11/08 (Patient Refused) Start: 08-06-2023 End: 08-06-2023 Patient encounter procedure 08/06/2023 3:45 PM EDT Office Visit [facility] [address] [place] [address] Clinton Muller MD [address] [place] [address] [facility] Start: 05-15-2023 End: 05-15-2023 Social Work 05/15/2023 1:00 PM EST Social Work [facility] [address] [place] [address] Rio Schulz, [facility] [address] [place] [address] [facility] Start: 05-08-2023 Hemoglobin A1c measurement Diabetes: Hemoglobin A1C [facility] Start: 04-29-2023 End: 04-29-2023 Professional / ancillary services management 04/29/2023 10:30 AM EST Ancillary Procedure [facility] [address] [place] [address] [facility] Start: 04-24-2023 [facility] Start: 03-11-2023 [facility] Start: 12-24-2022 [facility] Start: 2015 Screening for malign ant neoplasm of cervix [facility] Start: 2006 Screening for malign ant neoplasm of cervix Pap Smear [facility] Start: 2004 Urine screening for protein Diabetes: Urine Protein Screening [facility] Start: 1995 Glaucoma screening Diabetes: R etinopathy Screening [facility] Patient Education [facility] Work Phone: Immunizations Immunization Date Immunization Notes Care Provider Fa cility 02-09-2021 COVID-19 Vaccine Moderna - Documentation Purposes Only Shelley Mc Other [facility] 07-01-2020 COVID-19 Vaccine Moderna - Documentation Purposes Only Shelleylidia Mc Other [facility] 06-03-2020 COVID-19 Vaccine Moderna - Documentation Purposes Only Shelley Mc Other [facility] NEGATED: Highlighted row has not occurred!02-20-2023 Flu Shot - Documentation Purposes Only Patient Objection Shelley Mc Other [employer] Other Payers Date Payer Category Payer Unknown [id number] 2022 Medicaid [id number] 2022 Self-pay [id number] 2020 Medicaid [employer] [place] [id number] 2020-Present [address] [place] [address] [id number]. [id number] 2019 Unknown [id number]. 1.13.693.2. 7.3.774753.315 2019 Unknown [id number] 1985 Unknown [id number] 2.16.840.1.587748.3.579.2. 593 1985 Unknown [id number] 2.16.840.1.669358.3.579.2. 593 1985 Unknown [id number] 2.16.840.1.410631.3.579.2. 593 1985 Unknown [id number] 2.16.840.1.138829.3.579.2. 593 1985 Unknown [id number] 2.16.840.1.380465.3.579.2. 593 1985 Unknown [id number] 2.16.840.1.503288.3.579.2. 593 1985 Unknown [id number] 2.16.840.1.395315.3.579.2. 593 1985 Unknown [id number] 2.16.840.1.280011.3.579.2. 1259 1985 Unknown [id number] 2.16.840.1.641168.3.579.2. 1258 1985 Unknown [id number] 2.16.840.1.493209.3.579.2. 1258 1985 Unknown [id number] 2.16.840.1.820027.3.579.2. 1258 1985 Unknown [id number] 2.16.840.1.952498.3.579.2. 1258 1985 Unknown [id number] 2.16.840.1.232738.3.579.2. 1258 1985 Unknown [id number] 2.16.840.1.769616.3.579.2. 1258 1985 Unknown [id number] 2.16.840.1.284070.3.579.2. 1985 Unknown [id number] 2.16.840.1.145426.3.579.2. 1985 Unknown [id number] 2.16.840.1.912059.3.579.2. 1985 Unknown [id number] 2.16.840.1.698390.3.579.2. 1985 Unknown [id number] 2.16.840.1.592792.3.579.2. 1985 Unknown [id number] 2.16.840.1.798347.3.579.2. 1985 Unknown [id number] 2.16.840.1.416116.3.579.2. 1985 Unknown [id number] 2.16.840.1.230803.3.579.2. 1985 Unknown [id number] 2.16.840.1.847969.3.579.2. 1985 Unknown [id number] 2.16.840.1.207807.3.579.2. 1985 Unknown [id number] 2.16.840.1.593204.3.579.2. 1985 Unknown [id number] 2.16.840.1.891585.3.579.2. 1985 Unknown [id number] 2.16.840.1.852971.3.579.2. 1985 Unknown [id number] 2.16.840.1.310289.3.579.2. 1985 Unknown [id number] 2.16.840.1.193390.3.579.2. 1985 Unknown [id number] 2.16.840.1.150302.3.579.2. 1985 Unknown [id number] 2.16.840.1.404596.3.579.2. 1985 Unknown [id number] 2.16.840.1.596195.3.579.2. 1985 Unknown [id number] 2.16.840.1.156887.3.579.2. 1985 Unknown [id number] 2.16.840.1.775362.3.579.2. 1985 Unknown [id number] 2.16.840.1.564831.3.579.2. 1985 Unknown [id number] 2.16.840.1.643677.3.579.2. 1985 Unknown [id number] 2.16.840.1.759649.3.579.2. 1985 Unknown [id number] 2.16.840.1.031773.3.579.2. 1985 Unknown [id number] 2.16.840.1.257591.3.579.2. 1985 Unknown [id number] 2.16.840.1.854086.3.579.2. 196 1985 Unknown [id number] 2.16.840.1.306247.3.579.2. 196 1985 Unknown [id number] 2.16.840.1.928021.3.579.2. 196 1985 Unknown [id number] 2.16.840.1.806339.3.579.2. 196 1985 Unknown [id number] 2.16.840.1.052204.3.579.2. 196 1985 Unknown [id number] 2.16840.1.092021.3.579.2. 196 1959 Unknown [id number] 2.840.1.183189.19 1959 Unknown [id number] 1959 Worker's Compensation [id number] Blue Cross Blue Shield [id number] 20.1.429752.19 Private Health Insurance [id number] 2..1.427107.19 Unknown [id number] 2.840.1.183898.3.579.2. 531 Unknown [id number] 2.840.1.914027.3.579.2. 531 Unknown [id number] 2.840.1.846710.3.579.2. 531 Unknown [id number] 2.0.1.756261.3.579.2. 531 Unknown [id number] 2.840.1.122757.3.579.2. 531 Social History Date Type Detail Facility Start: 09-25-2022 End: 04-02-2023 Sex Assigned At [facility] [employer] Other Start: 1985 Sex Assigned At Female [facility] Start: 04-24-2023 End: 04-24-2023 Tobacco smoking status NHIS Ex-smoker (finding) [facility] History of tobacco use Current smoker [facility] History of tobacco use Cigarette Smoker [facility] Start: 08-08-2022 Tobacco use and exposure Smokeless tobacco non-user [facility] Start: 04-02-2023 Alcohol intake Lifetime non-d blaze (finding) [facility] Start: 09-25-2022 End: 04-02-2023 History of Social function [facility] Start: 08-05-2022 Tobacco Comment Last smoked: 1-5 yea rs [facility] Start: 09-25-2022 Alcohol Comment caffeine: none [facility] Start: 1985 Sex Assigned At Not on file [facility] Goals Date Patient Goal Desired Activity /State Clinical Notes 12-06-2020 to 05-19-2023 Note Date & Type Note Facility 05-19-2023 Note [id number] [facility] 05-16-2023 Note [facility] SURGERY Clinical Discharge Summary PERSON INFORMATION Name MICHAEL RAMON Age 38 Years 1985 Sex FEMALE Language Salvadorean PCP Shelley Mc DO Marital Status Med Service Pain Management Surgery Acct# Arrival 05/16/2023 11:18:32 Visit Reason LOW BACK PAIN Acuity LOS 007 00:21 Address: [address] [place], [place] [id number] Comment: PROVIDER INFORMATION VITALS INFORMATION Vital Sign Triage Latest Temp Oral Temp Temporal Temp Intravascular Temp Axillary Temp Rectal 02 Sat Respiratory Rate Peripheral Pulse Rate Apical Heart Rate Blood Pressure / / Comment: MEDICAL INFORMATION Allergy Info: Adhesive Bandage; Betadine Prescriptions Given: buPROPion (buPROPion 300 mg/24 hours (XL) oral tablet, extended release) 1 tab(s) Oral (given by mouth) every day. melatonin (melatonin 3 mg oral tablet) 1 tab(s) Oral (given by mouth) once a day (at bedtime) as needed for insomnia. metFORMIN (metFORMIN 500 mg oral tablet) 1 tab(s) Oral (given by mouth) once a day (in the morning). IN THE MORNING WITH MEALS. omeprazole (omeprazole 20 mg oral delayed release capsule) 2 cap(s) Oral (given by mouth) every day. before a meal. tirzepatide (Mounjaro 7.5 mg/0.5 mL subcutaneous solution) 0.5 Milliliter Subcutaneous (under the skin) every week. Medication List: Medications to Continue That Have Not Changed Other Medications buPROPion (buPROPion 300 mg/24 hours (XL) oral tablet, extended release) 1 tab(s) Oral (given by mouth) every day. melatonin (melatonin 3 mg oral tablet) 1 tab(s) Oral (given by mouth) once a day (at bedtime) as needed for insomnia. metFORMIN (metFORMIN 500 mg oral tablet) 1 tab(s) Oral (given by mouth) once a day (in the morning). IN THE MORNING WITH MEALS. omeprazole (omeprazole 20 mg oral delayed release capsule) 2 cap(s) Oral (given by mouth) every day. before a meal. tirzepatide (Mounjaro 7.5 mg/0.5 mL subcutaneous solution) 0.5 Milliliter Subcutaneous (under the skin) every week. Medications to Continue That Have Not Changed Other Medications buPROPion (buPROPion 300 mg/24 hours (XL) oral tablet, extended release) 1 tab(s) Oral (given by mouth) every day. melatonin (melatonin 3 mg oral tablet) 1 tab(s) Oral (given by mouth) once a day (at bedtime) as needed for insomnia. metFORMIN (metFORMIN 500 mg oral tablet) 1 tab(s) Oral (given by mouth) once a day (in the morning). IN THE MORNING WITH MEALS. omeprazole (omeprazole 20 mg oral delayed release capsule) 2 cap(s) Oral (given by mouth) every day. before a meal. tirzepatide (Mounjaro 7.5 mg/0.5 mL subcutaneous solution) 0.5 Milliliter Subcutaneous (under the skin) every week. Medications to Continue That Have Not Changed Other Medications buPROPion (buPROPion 300 mg/24 hours (XL) oral tablet, extended release) 1 tab(s) Oral (given by mouth) every day. melatonin (melatonin 3 mg oral tablet) 1 tab(s) Oral (given by mouth) once a day (at bedtime) as needed for insomnia. metFORMIN (metFORMIN 500 mg oral tablet) 1 tab(s) Oral (given by mouth) once a day (in the morning). IN THE MORNING WITH MEALS. omeprazole (omeprazole 20 mg oral delayed release capsule) 2 cap(s) Oral (given by mouth) every day. before a meal. tirzepatide (Mounjaro 7.5 mg/0.5 mL subcutaneous solution) 0.5 Milliliter Subcutaneous (under the skin) every week. Comment: Lab and Radiology Results Laboratory or Other Results This Visit (last charted value for your 05/16/2023 visit) No Laboratory or Other Results This Visit DIET & ACTIVITY Patient Activity Level: Patient Diet: Patient Activity Restrictions: DISCHARGE INFORMATION Discharge Disposition: Discharge Location: DEPART REASON INCOMPLETE INFORMATION PATIENT EDUCATION INFORMATION Instructions: Follow up: Type Location Start Finish State Secured Appointment Type Secured Location 06/12/2023 10:20 AM 06/12/2023 10:30 AM Confirmed DIAGNOSIS Comment: PHYS DOC NOTES [facility] 05-15-2023 Note [id number] The history of present illness has been reviewed. There are no changes document. [Electronically Signed on: 05/16/2023 11:30 EST] SAM HERBERT MD [Verified on: 05/16/2023 11:30 EST] SAM HERBERT MD [Transcribed on: 05/15/2023 12:57 EST] [facility] 04-24-2023 Procedure note [facility] 04-23-2023 Note Patient Education Ma terials Follows: [facility] 04-17-2023 Evaluation note Encounter Date Diagnosis Assessment Notes Apr, Cirrhosis of liver (ICD-10 - K74.60) Apr, Steatohepatitis (ICD-10 - K75.81) [facility] Other 01-29-2024 Note [id number] SURGERY Clinical Discharge Summary PERSON INFORMATION Name MICHAEL RAMON Age 37 Years 1985 Sex FEMALE Language Salvadorean PCP Shelley Mc DO Marital Status Med Service Pain Management Surgery Acct# Arrival 04/04/2023 09:45:39 Visit Reason SACROILIITIS Acuity LOS 009 20:28 Address: [address] [place] [address] [address] [facility] [address] Comment: PROVIDER INFORMATION VITALS INFORMATION Vital Sign [...] subcutaneous solution) 2.5 Milligram Subcutaneous (more contentnot included)...[facility] HospitalZfyrtrbx81-08-4996 Note [id number] The history of present illness has been reviewed. There are no changes document. [Electronically Signed on: 04/04/2023 10:21 EST] SAM HERBERT MD [Verified on: 04/04/2023 10:21 EST] SAM HERBERT MD [Transcribed on: 04/03/2023 12:50 EST] [facility]01-09-2024 Evaluation note* Encounter Date Diagnosis Assessment Notes Treatment Notes Treatment Clinical Notes Mar, GERD (gastroesophagea l reflux disease) (ICD-10 - K21.9) Will send PPI daily, will recheck at upcoming appt in Mar, Irregular periods (ICD-10 - N92.6) Given new onset intermenstrual bleeding and menorrhagia will refer to vibrator equipment tester for evaluation. Discussed likely need for pelvic u/s and possible EMB. Pap deferred today due to period. [facility] Other 12-14-2023 Evaluation note* Encounter Date Diagnosis [...] depression in full remission (ICD-10 - F32.5) [facility] Other 12-13-2023 NotePatient Education Materials [facility]s: [facility]xaxbshe82-26-5019 Evaluation note* Encounter Date Diagnosis Assessment Notes [...] sleepiness, or poor response to treatment. . [facility] Other 11-20-2023 Note [id number]11-17-2023 [facility] SURGERY Clinical Discharge Summary PERSON INFORMATION Name MICHAEL RAMON Age 37 Years 1985 Sex FEMALE Language Salvadorean PCP Nicolasa SMITH, Thu Marital Status Med Service Pain Management Surgery Acct# Arrival 01/24/2023 11:22:25 Visit Reason LUMBAR SPINAL STENOSIS WITH NEURO CLAUDICATION Acuity LOS 002 02:56 Address: [address] [place] [address] [address] [facility] [id number] Comment: PROVIDER INFORMATION VITALS INFORMATION Vital Sign [...] AM Confirmed PT 30 (more content not included)...[facility] HospitalTzoqffru71-61-8665 Note [id number] The history of present illness has been reviewed. There are no changes document. [Electronically Signed on: 01/24/2023 07:23 EST] SAM HERBERT MD [Verified on: 01/24/2023 07:23 EST] SAM HERBERT MD [Transcribed on: 01/23/2023 13:43 EST] [facility]11-15-2023 NotePatient Education Materials Follows:[facility] HospitalKxkpqpce20-70-3081 Evaluation note* Encounter Date Diagnosis Assessment Notes Treatment Notes Treatment Clinical Notes Jan, Hepatic steatosis (ICD-10 - K76.0) [facility] Other 10-05-2023 Evaluation note* Encounter Date Diagnosis Assessment Notes Treatment Notes Treatment Clinical Notes Dec, HAMMOND (nonalcoholic steatohepatitis) (ICD-10 - K75.81) PATIENT TO PROCEED WITH LABS AND FIBRSOCAN. Dec, Hepatic steatosis (ICD-10 - K76.0) Dec, Elevated liver enzymes (ICD-10 - R74.8) [facility] Other 09-27-2023 NotePatient Education Materials Follows: [facility] HospitalBqybpcqc52-22-7823 NotePatient Education Materials Follows: Hypertension, Adult Your [...] Keep all follow-up visits. Medicines ? Take sxai-rwp-vhouskv and prescription medicines only as told by [...] ? High blood pr (more content not included)...[facility] HospitalFzuceemm74-15-2619 Note Patient Education Materials Follows: Hypertension, Adult [...] doctor. This is important. Medicines ? Take verl-dmk-zgynqzo and prescription medicines only as told by [...] for high bl (more content not included)... [facility] HospitalJvvegsqb84-57-1775 Evaluation note* Encounter Date Diagnosis Assessment Notes [...] sleepiness, or poor response to treatment. . [facility] Other 08-29-2022 NotePROCEDURE: XR FOOT RT MIN 3 VIEWS COMPARISON: 06/09/2021 HISTORY: Pain FINDINGS: BONES:Interval removal of fixation plate in the first metatarsal-phalangeal joint. No acute fracture or dislocation. SOFT TISSUES:Postsurgical soft tissue swelling and subcutaneous emphysema EFFUSION:None visible. OTHER: Negative. IMPRESSION: Interval removal of first metatarsal-phalangeal joint fusion hardware Electronically authenticated by: WEN MCCABE Date: 2021-11-05 13:[address] [place], [place] [address]12-01-2021 Evaluation note* Encounter Date Diagnosis Assessment Notes [...] sleepiness, or poor response to treatment. . [facility] Other 09-29-2021 Evaluation note* Encounter Date Diagnosis [...] changes in symptoms and/or problems with treatment [facility] [employer] Other Evaluation noteNo assessment information available [facility] Work Phone: Evaluation noteNo InformationNortSt. Christopher's [facility] [employer] Other Evaluation note* Diagnosis Onset Date Resolution Status Elevated liver enzymes acute [facility] Work Phone: Evaluation note* Diagnosis Major depressive disorder with current active episode, unspecified depression episode severity, unspecified whether recurrent (CMS/HCC) documented in this encounter [facility] Diagnosis Onset Date Resolution Status Type 2 diabetes mellitus wit h other specified complication acute [facility] Work Phone: History and physical note Author Job Martinez [facility] April 24, 2023 2:00pm Note Date/Time April 24, 2023 2:00pm [facility] [address] [place] [address] Gastroenterology H&P Signed Patient: Michael Ramon MR#: [id number] : 1985 Acct:[id number] Age/Sex: 38 / F Adm Date: 4 Loc: Room: Type: [facility] Attending Dr: Job Martinez MD Copies to: [...] Martinez M.D. Documented By: Job Martinez MD 04/24/231399 Signed By: <Electronically signed by Job Martinez MD> 04/24/23 1400 [facility] Work Phone: History general Narrative - Reported* Type Description Date Medical History depression Medical History anxiety [facility] Other Hisszkk general Narrative - Reported* Type Description Date Medical History depression Medical History anxiety Medical History severe PRAKASH [facility] Other Hiskrng general Narrative - Reported* Type Description Date Medical History depression Medical History anxiety Medical History severe PRAKASH Medical History diabetes mallitus Medical History sleep apnea Surgical History cholecystectomy 2005 Surgical History RIGHT FOOT-HELIX 2020 Hospitalization History SEE ABOVE [facility] Other Hisdurh general Narrative - Reported* Type Description Date Medical History depression Medical History anxiety Medical History severe PRAKASH Medical History diabetes mallitus Medical History sleep apnea Surgical History cholecystectomy [address] Cheek--RIGHT FOOT-HELIX [address] Cheek--right foot hardw are removed 2022 Hospitalization History see above [facility] Other Chief Complaint and Reason for Visit Chief Complaint Obstructive sleep ap natalie / es pt Chief Complaint Fatty Liver k75.81 Obstructive sleep apnea k76.0 Chief Complaint Obstructive sleep ap natalie Get Established k76.0 Pap Fatty Liver, Cirrhosis, Rule out varices Fatty Liver, Cirrhosis, Rule out varices Reason for Visit Elevated liver enzym es Chief Complaint Obstructive sleep ap natalie Get Established k76.0 Pap Fatty Liver, Cirrhosis, Rule out varices Fatty Liver, Cirrhosis, Rule out varices Amb Documentation k76.0 Reason for Visit Elevated liver enzym es Chief Complaint k76.0 Pap Fatty Liver, Cirrhosis, Rule out varices Fatty Liver, Cirrhosis, Rule out varices Amb Documentation k76.0 3 month follow up Reason for Visit Type 2 diabetes nettie itus with other specified complication Advance Directives No Advanced Directives Records Found Advance Directive Response Recorded Date/ Time Advance Directives No October 03 7:34am Advance Directive Response Recorded Date/ Time Advance Directives No October 03 8:34am Summary Purpose Family History No Family History [...] 1 Irregular periods (N 92.6) Referral Organization [facility] Julio Ortega Referring Provider First Name Shelley Referring Provider Last Name Jesusita Referring Provider Specialty [facility] Organization [facility] Referred Address ,[place], [place],[address] Referred Provider Specialty OB - Gynecol ogy Referral Priority Routine Additional Source Comments REASON FOR VISIT (unrecogniz ed section and content) Reason Comments Follow-up Care Teams (unrecognized sec tion and content) Team Status: Inactive Member Role Status Dates Wen Pollack MD Attending Provider Active Thu Baldwin DO Primary Care Provider Active Team Status: Active Member Role Status Shelly Baldwin DO Primary Care Provider Active Team [...] Team Status: Inactive Member Role Status Shelly Baldwin DO Primary Care Provider Active Job [...] Other Provider Active Start: April 24, 2023 Document Coordinator Relationship Specialty Start Date End Date Thu Baldwin [address] [place] [address] PCP - [facility] 09/07/22 Shelley Mc DO [address] [facility] [place] [id number] PCP - General Family Medicine 04/02/23 Team Status: Active Member Role Status Dates Shelley Mc DO Primary Care Provider Active Start: April 25, 2023 BRENDA Durahm Attending Provider Active S tart: April 25, 2023 Team Status: Inactive Member Role Status Dates Shelley Mc DO Primary Care Provider Active Start: May 01, 2023 End: May 01, 2023 Job Martinez MD Attending Provider Active Start: May 01, 2023 End: May 01, 2023 Team Status: Inactive Member Role Status Dates Shelley Mc DO Primary Care Provide r, Attending Provider Active Start: May 23, 2023 End: May 23, 2023 Goals (unrecognized section and content) Goals may be documented in a n alternate section INFORMATION SOURCE (unrecogn ized section and content) DATE CREATED AUTHOR 04/14/[address] [facility] [facility] DATE CREATED AUTHOR AUTHOR'S ORGANIZ ATION 05/09/2023 [place] DATE CREATED AUTHOR AUTHOR'S ORGANIZ ATION 05/16/2023 [facility] EPIC DATE CREATED AUTHOR AUTHOR'S ORGANIZ ATION 06/17/2023 [facility] DATE CREATED AUTHOR AUTHOR'S ORGANIZ ATION 06/17/2023 [facility] FOR RECORDS PERTAINING TO PATIENTS WHO ARE [...] BE BASED ON THE PRIMARY CLINICAL RECORDS. [employer] [facility]. provides no warranty or guarantee of the accuracy or completeness of information in this document.
[2023-06-17] MEDS: 0.9 % SODIUM CHLORIDE 500 ML, LIDOCAINE HCL 20 ML, SODIUM BICARBONATE 10 MEQ INJ (13:11)
[2023-06-17] MEDS: LIDOCAINE HCL 1% 100 MG/10 ML MDV INJ (13:11)
== END 2023-06-17 12:53 | disposition home or self-care (01) ==
LOC: VC 12:52
PROVIDERS: PCP Radiology Diagnostic Radiology; Visit Provider Radiology Diagnostic Radiology
DX: I83.813 Varicose veins of bilateral lower extremities with pain (principal)
CPT/HCPCS: 36478

== ENCOUNTER 2023-06-25 12:51 | Outpatient (OUT) | payer OTHER, SELFPAY ==
--- NOTE | 2023-06-25 12:53 | VEIN_ITS ---
Patient Name: MICHAEL RAMON MR#: [id number] : 1985 Exam Date: 06/25/2023 Ordering Doctor: DR PRASAD MENENDEZ M.D. RADIOLOGY REPORT PROCEDURE: VC EXT VENOUS RT LMTD COMPARISON: VC EXT VENOUS RT LMTD, 04/15/2023. INDICATIONS: Phlebitis of superficial vein of right lower extremity I80.01 TECHNIQUE: Lower extremity carlson scale and Duplex Doppler evaluation of the deep venous system from the inguinal ligament through the calf veins. FINDINGS: REGION: Right lower extremity. THROMBI: Negative for DVT. Heat induced thrombus in right SSV 2.4 cm from SPJ and extends to distal lower leg. COMPRESSIBILITY: Non-compressible segments corresponding to thrombus FLOW: Areas of no flow corresponding to thrombus CONCLUSION: Post ablation occlusion of the right small saphenous vein with heat induced thrombus 2.4 cm from the saphenopopliteal junction Dictated by: Prasad Menendez MD on 06/25/2023 at 14:39 Approved by: Prasad Menendez MD on 06/25/2023 at 14:39
--- NOTE | 2023-06-25 12:53 | VEIN_ITS ---
Patient Name: MICHAEL RAMON MR#: [id number] : 1985 Exam Date: 06/25/2023 Ordering Doctor: DR PRASAD MENENDEZ M.D. RADIOLOGY REPORT PROCEDURE: [facility] EST LMTD VEIN CENTER - OFFICE VISIT FOLLOW UP COMPARISON: [facility] EST LMTD, 05/08/2023. [facility] EST LMTD, 04/15/2023. PROGRESS NOTES: The patient reports no significant problems following endovenous laser ablation of the right small saphenous vein. The patient did not require oral analgesics. The patient has worn her compression stockings and tried exercise. Physical exam demonstrates no erythema or bruising. No evidence of cellulitis or thrombophlebitis. No active ulceration Review of the ultrasound performed the same day demonstrates occlusive thrombus extending throughout the treated right small saphenous vein with heat induced thrombus 2.5 cm from the saphenofemoral junction. No deep vein thrombus. The patient expressed a desire to proceed with treatment of incompetent left small saphenous vein. VEIN/[facility] EST LMTD IMPRESSION: 1. Successful ablation of the right small saphenous vein 2. Persistent incompetent left small saphenous vein. PLAN: Intravenous laser ablation left small saphenous vein Nurse notes, history and physical were reviewed and confirmed, see attached forms. The nurse was present throughout the physical exam and consultation Dictated by: Prasad Menendez MD on 06/25/2023 at 13:29 Approved by: Prasad Menendez MD on 06/25/2023 at 13:30
== END 2023-06-25 12:52 | disposition home or self-care (01) ==
LOC: VC 12:51
PROVIDERS: PCP Radiology Diagnostic Radiology; Visit Provider Radiology Diagnostic Radiology
DX: I80.01 Phlebitis and thrombophlebitis of superficial vessels of right lower extremity (principal)
CPT/HCPCS: 93971; G0463

== ENCOUNTER 2023-07-08 12:26 | Outpatient (OUT) | payer OTHER, SELFPAY ==
--- NOTE | 2023-07-08 12:27 | VEIN_ITS ---
[address] [address] Patient Name: MICHAEL RAMON MRN: [id number] date: 1985 Sex: F Assigned Patient Location: Current Patient Location: Accession/Order Number: [id number] Exam Date: 07/08/2023 12:37 Report Date: 07/08/2023 13:38 At the request of: WEN MCCABE Procedure: VC Endovenous Ablation 1VeinLT EXAMINATION: VC Endovenous Ablation 1Vein, left small saphenous vein HISTORY: Pain due to varicose veins of bilateral legs I83.813 COMPARISON: No relevant comparison available. TECHNIQUE: The risks and benefits of the procedure had been previously discussed, and were rediscussed at length. Informed written consent was obtained. Radha Manley and Torsten White assisted. Time out procedure was performed. The left lower extremity was prepared and draped in the usual sterile fashion. Duplex ultrasound probe was draped in a sterile cover, sterile transmission gel was used. Venous mapping was performed with the areas of dilation and large tributaries marked. The total length was 20 cm from the entry L centimeters above the lateral malleolus to where the vein begins to dive deep into the muscle towards the popliteal vein. The diameter of the smallsaphenous vein ranged from 5-6 mm. A 30 gauge needle and 1% buffered lidocaine was used to anesthetize the entry site. A 4 mm incision was made with a scalpel and the saphenous vein was entered percutaneously under direct ultrasound guidance with a micropuncture set, a stick was successful in gaining access. A micro-guide wire was inserted and the needle removed. A micro-set including a dilator was inserted over the microwire and the needle and dilator were removed. A 0.018 guide wire was inserted through the micro-set and threaded through the saphenous vein. The dilator was removed and an introducer sheath was inserted over the wire. The dilator and wire were removed and the 600 micron fiber was introduced and placed and positioned so that it extended beyond the sheath. Final position of the fiber was determined by ultrasound guidance and duplex imaging. Tumescent anesthetic was delivered by ultrasound guidance. 100 cc of fluid was delivered along the entire course of the saphenous vein. The solution consisted of 1000 cc of normal saline with 40 mL of 1% lidocaine and 20 mL of sodium bicarbonate. A final positioning check was made. The energy source was turned on by means of the foot pedal and the fiber and sheath were withdrawn. The total number of Joules delivered was 952. The laser was active for 119 seconds under continuous pulse, average laser use of 8 J. Laser start time 1:16 PM 07/08/2023 . Laser stop time 1:18 PM 07/08/2023 . A duplex ultrasound revealed compressibility and flow at the saphenofemoral junction immediately after the procedure. Hemostasis at the access site was achieved. The skin incision of the saphenous vein was closed with a 4 x 4. A compression stocking was applied. Postop instructions were given. A follow up appointment was recommended and scheduled. The patient tolerated the procedure well and was discharged in good condition . VEIN/VC Endovenous Ablation 1VeinLT IMPRESSION: Technically successful endovenous laser ablation of the left small saphenous vein Electronically authenticated by: WEN MCCABE Date: 07/08/2023 13:38
[2023-07-08] MEDS: LIDOCAINE HCL 1% 100 MG/10 ML MDV INJ (12:35)
[2023-07-08] MEDS: 0.9 % SODIUM CHLORIDE 500 ML, LIDOCAINE HCL 20 ML, SODIUM BICARBONATE 10 MEQ INJ (12:36)
== END 2023-07-08 12:27 | disposition home or self-care (01) ==
LOC: VC 12:26
PROVIDERS: PCP Radiology Diagnostic Radiology; Visit Provider Radiology Diagnostic Radiology
DX: I83.813 Varicose veins of bilateral lower extremities with pain (principal)
CPT/HCPCS: 36478

== ENCOUNTER 2023-07-15 09:39 | Outpatient (OUT) | payer OTHER, SELFPAY ==
--- NOTE | 2023-07-15 09:44 | VEIN_ITS ---
Patient Name: MICHAEL RAMON MR#: [id number] : 1985 Exam Date: 07/15/2023 Ordering Doctor: DR WEN MCCABE M.D. RADIOLOGY REPORT PROCEDURE: VC EXT VENOUS LT LIMITED COMPARISON: VC EXT VENOUS LT LIMITED, 05/08/2023. INDICATIONS: Phlebitis of superficial veins of lt lower extremity I80.02 TECHNIQUE: Lower extremity carlson scale and Duplex Doppler evaluation of the deep venous system from the inguinal ligament through the calf veins. FINDINGS: REGION: Left lower extremity. THROMBI: Negative for DVT. Heat induced thrombus visualized at pop fossa above the muscle layer. The heat induced thrombus extends from prox calf to distal calf. COMPRESSIBILITY: Non-compressible segments corresponding to thrombus FLOW: Areas of no flow corresponding to thrombus OTHER: CONCLUSION: 1. Successful post ablation occlusion of left small saphenous vein. Dictated by: Bassem Pelaez M.D. on 07/15/2023 at 11:02 Approved by: Bassem Pelaez M.D. on 07/15/2023 at 11:05
--- NOTE | 2023-07-15 09:44 | VEIN_ITS ---
Patient Name: MICHAEL RAMON MR#: [id number] : 1985 Exam Date: 07/15/2023 Ordering Doctor: DR WEN MCCABE M.D. RADIOLOGY REPORT PROCEDURE: [facility] EST LMTD VEIN CENTER - OFFICE VISIT FOLLOW UP [facility] PROGRESS NOTES: The patient reports improvement in leg symptoms. There has been interval reduction in varicosities. The patient has followed our recommendations to walk 20-30 minutes once or twice per day since the procedure. Physical exam demonstrates decrease in varicosities of the leg. Persistent superficial varicosities are identified along the legs bilaterally. Review of the ultrasound performed the same day demonstrates occlusive thrombus extending throughout the treated vein(s), see separate report, consistent with a successful ablation. No thrombus extending into or beyond the saphenofemoral junction. The patient expressed a desire to proceed with treatment of incompetent branch saphenous varicosities. The patient was informed that treatment was a process and would require several procedures/sessions. VEIN/[facility] LMTD IMPRESSION: 1. Successful ablation of the left small saphenous vein(s). 2. Persistent varicose veins and lower extremity symptoms. PLAN: Microfoam chemical ablation of lower extremity branch saphenous varicosities; starting on right. Nurse notes, history and physical were reviewed and confirmed, see attached forms. The nurse was present throughout the physical exam and consultation Dictated by: Bassem Pelaez M.D. on 07/15/2023 at 11:05 Approved by: Bassem Pelaez M.D. on 07/15/2023 at 11:06
== END 2023-07-15 09:40 | disposition home or self-care (01) ==
LOC: VC 09:39
PROVIDERS: PCP Radiology Diagnostic Radiology; Visit Provider Radiology Diagnostic Radiology
DX: I80.02 Phlebitis and thrombophlebitis of superficial vessels of left lower extremity (principal)
CPT/HCPCS: 93971; G0463

== ENCOUNTER 2023-08-11 09:48 | Outpatient (OUT) | payer OTHER, SELFPAY ==
--- NOTE | 2023-08-11 09:55 | VEIN_ITS ---
[address] [address] Patient Name: MICHAEL RAMON MRN: [id number] date: 1985 Sex: F Assigned Patient Location: Current Patient Location: Accession/Order Number: [id number] Exam Date: 08/11/2023 10:00 Report Date: 08/11/2023 12:05 At the request of: WEN MCCABE Procedure: VC INJ Foam Sclerosant WUS BACK ORDER CLERK PROCEDURE: VC INJ Foam Sclerosant WUS BACK ORDER CLERK HISTORY: Pain due to varicose veins of bilateral legs I83.813 Pre-operative Diagnosis: CEAP class C3 venous insufficiency with pain, tenderness, edema and incompetent branch saphenous vein(s), chronic venous insufficiency right leg secondary to venous incompetence Post-operative Diagnosis: CEAP class C3 venous insufficiency with pain, tenderness, edema and incompetent branch saphenous vein(s), chronic venous insufficiency right leg secondary to venous incompetence Procedure Performed: 1. Ultrasound-guided microfoam chemical ablation with Varithenaregistered 2. Intraoperative ultrasound guidance Physician: Bassem Pelaez M.D. Anesthesia: None Indications for Procedure: 38 year old female. Symptoms including lower extremity pain, swelling, dilated bulging veins for many years despite conservative medical therapy including medical compression stockings, exercise and analgesics. Prior procedures include endovenous laser ablation. Multiple incompetent varicosities of the right leg. Duplex scan showed reflux and enlarged diameters up to 5 mm. The patient underwent informed consent including management options where the complications of infection, bleeding, pain, and skin injury were discussed. Particular attention was spent discussing thrombus extension and deep vein thrombosis as well as the possibility of pulmonary embolus and treatment with oral or injectable blood thinners. Procedure: The patient walked to the procedure room. All applicable staff donned appropriate apparel. A procedure timeout was performed to confirm correct patient, correct extremity, correct procedure, and correct room set-up including presence of all applicable supplies, devices, and drugs. A duplex ultrasound, performed by myself confirmed the location and incompetence of branch saphenous varicosities and their course was marked on the skin together with the dilated tributaries. The extent of treatment of the vein and the associated varicosities was determined through ultrasound mapping. The skin was prepped and then punctured with a butterfly needle and advanced under ultrasound guidance. The Varithenaregistered canister was activated and the canister was primed and purged as required in the instructions for use. Varithenaregistered was drawn into a sterile syringe. Varithenaregistered was slowly administered at 0.5-1.0 cc/second with close observation by ultrasound of its course in the vessels. Total volume utilized was: 12 mL (8 mL into a 5 mm distal great saphenous vein (great saphenous vein above the thigh has been previously occluded with endovenous laser ablation); 4 mL into a 4 mm varicosity distal anterior medial upper leg). Following administration of Varithenaregistered the leg was elevated and the patient was asked to repeatedly dorsiflex the ankle to limit flow of Varithenaregistered into perforating veins. Once appropriate spasm had been confirmed in the treated veins, the vascular catheter was removed from the leg and light pressure was applied over the puncture site for hemostasis. The common femoral and deep superficial veins were then evaluated for flow and compressibility prior to dressing placement. The lower extremity was kept elevated at 45 degrees above the horizontal and cording material was applied over the saphenous segments and tributaries to allow for eccentric compression over the target vessels including the targeted saphenous vein(s). A multilayer dressing was applied consisting of foam pads, coban and thigh-high 20-30 mm Hg compression elastic support hose were placed on the patient. The leg was lowered only after compression had been applied and the patient was immediately ambulatory. The patient ambulated 10 minutes under supervision and was without apparent concerns at time of release. Post-care instructions include advising patient to keep post-treatment bandages in place and dry for 48 hours, avoid extended periods of inactivity, avoid heavy exercise for one week, wear compression stockings on the treated leg continuously for two weeks, to walk daily for 10 minutes over the next month. The patient was instructed to take an anti-inflammatory medicine as needed and to follow up for color duplex scan of the Saphenous veins, the treated branch saphenous varicosities, the adjacent deep veins, and additional treatment within 7 days. PERSONNEL: Torsten White RN Electronically authenticated by: BASSEM PELAEZ Date: 08/11/2023 12:05
== END 2023-08-11 09:49 | disposition home or self-care (01) ==
LOC: VC 09:48
PROVIDERS: PCP Radiology Diagnostic Radiology; Visit Provider Radiology Diagnostic Radiology
DX: I83.813 Varicose veins of bilateral lower extremities with pain (principal)
CPT/HCPCS: 36466

== ENCOUNTER 2023-08-14 10:23 | Outpatient (OUT) | payer OTHER, SELFPAY ==
--- NOTE | 2023-08-14 10:25 | VEIN_ITS ---
Patient Name: MICHAEL RAMON MR#: [id number] : 1985 Exam Date: 08/14/2023 Ordering Doctor: DR WEN MCCABE M.D. RADIOLOGY REPORT PROCEDURE: VC EXT VENOUS RT LMTD COMPARISON: VC EXT VENOUS RT LMTD, 06/25/2023. INDICATIONS: Phlebitis of superficial veins of rt lower extremity I80.01 TECHNIQUE: Lower extremity carlson scale and Duplex Doppler evaluation of the deep venous system from the inguinal ligament through the calf veins. FINDINGS: REGION: Right lower extremity. THROMBI: Negative for DVT. Varithena induced thrombus visualized at dist/ant calf, mid/med calf, and dist/med calf. COMPRESSIBILITY: Non-compressible segments corresponding to thrombus FLOW: Areas of no flow corresponding to thrombus OTHER: No patent varicose veins remain. CONCLUSION: 1. 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 Dictated by: Bassem Pelaez M.D. on 08/14/2023 at 12:42 Approved by: Bassem Pelaez M.D. on 08/14/2023 at 12:43
--- NOTE | 2023-08-14 10:25 | VEIN_ITS ---
Patient Name: MICHAEL RAMON MR#: [id number] : 1985 Exam Date: 08/14/2023 Ordering Doctor: DR WEN MCCABE M.D. RADIOLOGY REPORT PROCEDURE: [facility] LMTD VEIN CENTER - OFFICE VISIT FOLLOW UP [facility] PROGRESS NOTES: The patient reports improvement in leg symptoms. There has been interval reduction in varicosities. The patient has followed our recommendations to walk 20-30 minutes once or twice per day since the procedure. Physical exam demonstrates decrease in varicosities of the leg. Persistent varicosities are identified along the left leg. Review of the ultrasound performed the same day demonstrates occlusive thrombus extending throughout the treated vein(s), see separate report, consistent with a successful ablation. No thrombus extending into or beyond the saphenofemoral junction. The patient expressed a desire to proceed with treatment of remaining incompetent varicosities. The patient was informed that treatment was a process and would require 1, possibly 2 procedures[facility]sessions. [facility]: 1. Successful ablation of the right leg treated branch saphenous vein(s). 2. Persistent left leg superficial varicose veins and lower extremity symptoms. PLAN: 1. Microfoam chemical ablation of left leg incompetent branch saphenous varicosities. Nurse notes, history and physical were reviewed and confirmed, see attached forms. The nurse was present throughout the physical exam and consultation Dictated by: Bassem Pelaez M.D. on 08/14/2023 at 12:43 Approved by: Bassem Pelaez M.D. on 08/14/2023 at 12:44
--- OUTSIDE RECORDS SUMMARY | 2023-08-14 10:32 | XMS_ITS | CCD ---
Author Organization [facility] Care Team Providers Care Textile Stylist Name Role Phone Wen Pollack Unavailable MD Wen Pollack Attending Provider [phone] DO Thu Baldwin Primary Care Provider LOR [...] CHEEK Consulting Unavailable ADRYAN CARLSON Consulting Unavailable [facility] KEILY Nevarez Consulting Unavailable KEILY PAYNE Consulting Unavailable LOR CHEEK Attending Unavailable LOR CHEEK Consulting Unavailable MISC, DR GARCIA Primary Care Unavailable LOR CHEEK Admitting Unavailable AGKODY, ADRYAN Consulting Unavailable HERIBERTO, DR MALATHI Larson Consulting Unavailable REQUEST, NONE LISTED Primary Care Unavaila WEI Cramer Attending Unavailable WEI TUTTLE Admitting Unavailable WEI TUTTLE Consulting Unavailable LOR CHEEK Attending Unavailable MISC, DR GARCIA Primary Care Unavailable ELIOT, DR WEN Bassett Consulting Unavailable LOR CHEEK Admitting Unavailable LOR CHEEK Consulting Unavailable Asaad, Imad Unavailable Mc, Shelley Unavailable Nicolasa Thu G Primary Care Provider MD Job Martinez Attending Provider MD Wen Pollack Attending Provider Jesusita Shelley A Primary Care Provider MD Wen Pollack Attending Provider [phone] MD Job Martinez Attending Provider Thu Baldwin DO G Unavailable Mc Shelley Primary Care Provider DO Jesusita Shelley A Primary Care Provider MD Job Martinez Attending Provider [phone] [place] NUCLEAR CHEMISTRY TECHNICIAN-AUTOMATION CONSULTANT, Bia Kitchen Attending Pennie Herbert MD, Sam Funes Attending Kodi Herbert MD, Sam Funes Attending Unavai lable [place] NUCLEAR CHEMISTRY TECHNICIAN-AUTOMATION CONSULTANT, Bia Kitchen Attending Pennie Herbert MD, Sam Funes Attending Unavai lable [place] NUCLEAR CHEMISTRY TECHNICIAN-AUTOMATION CONSULTANT, Bia Kitchen Attending U navailable [place] NUCLEAR CHEMISTRY TECHNICIAN-AUTOMATION CONSULTANT, Bia Kitchen Attending Pennie Herbert MD, Sam Funes Attending UnavaDO Wendy Solimanria A Primary Care Provider MD Job Martinez Attending Provider DO Chris Cottrell Emergency Provider MD Ginette Etienne Attending Provider Unavailable Primary Care Provider UnavailERICKSON Lemus Attending Unavailable GINETTE ETIENNE Referring Unavailable Unavailable Primary Care Provider Unavaillisa e Igor DPEwa, Lorenzo Connors Attending Unavawesley Costa DPEwa, Lorenzo Connors Admitting Unavai lable Nicolasa, Thu Primary Care Unavailable SAM HERBERT Attending Unavailable Jesusita Shelley Primary Care Unavailable SAM HERBERT Admitting Unavailable Mati Bell Admitting Unavailable Mati Bell Attending Unavailable Mc, Shelley Primary Care Unavailable Nicolasa, Thu Primary Care Unavailable Keily Duvall Attending Unavailable Keily Duvall Admitting Unavailable KINDL, SAM F Attending Unavailable Mc, Shelley Primary Care Unavailable KINDL, SAM F Admitting Unavailable Bell, Mati L Admitting Unavailable Bell, Mati L Attending Unavailable Nicolasa, Thu Primary Care Unavailable Mc, Shelley Primary Care Unavailable [place], Bia M Attending Unavailable [place], Bia M Admitting Unavailable KINDL, SAM F Attending Unavailable Mc, Shelley Primary Care Unavailable KINDL, SAM F Admitting Unavailable Mc, Shelley Primary Care Unavailable [place], Bia M Attending Unavailable [place], Bia M Admitting Unavailable Mc, Shelley Primary Care Unavailable [place], Bia M Attending Unavailable [place], Bia M Admitting Unavailable Mc, Shelley Primary Care Unavailable [place], Bia M Admitting Unavailable [place], Bia M Attending Unavailable Nicolasa, Thu Primary Care Unavailable [place], Bia M Admitting Unavailable [place], Bia M Attending Unavailable Nicolasa, Thu Primary Care Unavailable [place], Bia M Attending Unavailable [place], Bia M Admitting Unavailable Mc, Shelley Primary Care Unavailable [place], Bia M Admitting Unavailable [place], Bia M Attending Unavailable KINDL, SAM F Admitting Unavailable KINDL, SAM F Attending Unavailable Mc, Shelley Primary Care Unavailable KINDL, SAM F Attending Unavailable Mc, Shelley Primary Care Unavailable KINDL, SAM F Admitting Unavailable Longoria, Ulices Attending Unavailable Longoria, Luices Admitting Unavailable Nicolasa, Thu Primary Care Unavailable Ray, Mati L Attending Unavailable Bell, Mati L Admitting Unavailable Nicolasa, Thu Primary Care Unavailable Bell, Mati L Admitting Unavailable Bell, Mati L Attending Unavailable Nicolasa, Thu Primary Care Unavailable Bell, Mati L Admitting Unavailable Bell, Mati L Attending Unavailable Nicolasa, Thu Primary Care Unavailable Nicolasa, Thu Primary Care Unavailable [place], Bia M Admitting Unavailable [place], Bia M Attending Unavailable KINDL, SAM F Attending Unavailable Nicolasa, Thu Primary Care Unavailable KINDL, SAM F Admitting Unavailable KINDL, SAM F Attending Unavailable Nicolasa, Thu Primary Care Unavailable KINDL, SAM F Admitting Unavailable Bell, Mati L Admitting Unavailable Bell, Mati L Attending Unavailable Nicolasa, Thu Primary Care Unavailable ANNA [place] Attending Unavailable Ginette Etienne Admitting Unavailable Mc, Shelley A Primary Care Unavailable Ginette Etienne Attending Unavailable Asaad, Imad Admitting Unavailable Asaad, Imad Attending Unavailable Mc, Shelley A Primary Care Unavailable Chris Cottrell Attending Unavailable Chris Cottrell Admitting Unavailable Mc, Shelley A Primary Care Unavailable Asaad, Imad Attending Unavailable Asaad, Imad Admitting Unavailable Mc, Shelley A Primary Care Unavailable Asaad, Imad Admitting Unavailable Asaad, Imad Attending Unavailable Mc, Shelley A Primary Care Unavailable Wen Pollack Attending Unavailable Wen Pollack Admitting Unavailable Mc, Shelley A Primary Care Unavailable Asaad, Imad Admitting Unavailable Asaad, Imad Attending Unavailable Thu Baldwin Primary Care Unavailable Mc, DO Shelley A Primary Care Provider MD Ginette Etienne Attending Provider RIO SCHULZ Attending Unavailable CLINTON MULLER Attending Unavailable CLINTON MULLER Referring Unavailable RIO SCHULZ Attending Unavailable RIO SCHULZ Attending Unavailable RIO SCHULZ Attending Unavailable RIO SCHULZ Attending Unavailable THU BALDWIN Attending Unavailable CLINTON MULLER Attending Unavailable CLINTON MULLER Referring Unavailable Allergies Allergy Classification Reported Allergen(s) Allergy Type Date of Onset Reaction(s) Facility (16 sources) Iodine; Translations: [IODINE] Drug Allergy 4 [facility] (1 source) Adhesive bandage; Translations: [Adhesive Bandage] Propensity to adverse reactions (disorder) [facility] (1 source) Povidone-Iodine; Translations: [Betadine] Drug Allergy [facility] Repository (3 sources) Povidone-Iodine Drug Allergy 4 [facility] Medications Current Medications Medication Drug Class(es) Dates [...] hydrochloride 300 mg extended release oral tablet (20 sources) Aminoketone Start: 03-11-2023 End: 04-28-2023 take 300 mg by mouth once daily in the morning Bupropion Hcl Active 300 MG PO Every morning April 28, 2023 9:42am buPROPion HBr 17 4 mg ER tablet Take 300 mg by mouth once daily. 0 Active take 1 tablet by merry th every twenty-four hours buPROPion HCl ER (XL) 150 MG 1 tablet in the morning Orally Once a day Active cetirizine hydrochloride 10 mg oral tablet (1 source) Histamine-1 Receptor Antagonist take 1 tablet by mouth every twenty-four hours as needed cetirizine (ZyrTEC) 10 mg tablet Take 1 tablet (10 mg) by mouth once daily as needed for allergies. Active Clotrimazole (3 sources) Azole Antifungal Clotrimazole 1 % 1 application Externally Twice a day Active Clotrimazole 1 % 1 application Externally Twice a day Active diphenhydrAMINE hydrochloride 25 mg oral tablet (1 source) Histamine-1 Receptor Antagonist Start: 07-25-2023 take 1 tablet by mouth once Diphenhydramine Hcl (Benadryl Allergy) 25 mg tablet Active 25 MG PO Once July 25, 2023 12:00am take 1hr before CT scan escitalopram 10 mg oral tablet (3 sources) [...] as needed Orally Once a day Active 3 ml liraglutide 6 mg/ml pen injector (8 sources) GLP-1 Receptor Agonist Start: 06-27-2023 inject 0.6 mg by subcutaneous injection once daily, then inject 1.8 mg by subcutaneous injection once daily Liraglutide (Victoza 3-Myles) 0.6 mg/0.1 mL (18 mg/3 mL) pen injector Active 0 SUBCUT .COMPLEX June 27, 2023 12:00am inject 0.6mg subcutaneously once daily x 7 days; then 1.2mg daily, not to exceed 1.8mg/day subcut inject 1.8 mg by sub cutaneous injection once daily liraglutide (VICTOZA) 0.6 mg/ 0.1 ml subcutaneous pen injector Inject 1.8 mg subcutaneously once daily. 0 Active inject 0.2 mL by sub cutaneous injection once daily liraglutide (Victoza) 0.6 mg/0.1 mL (18 mg/3 mL) injection Inject 0.2 mL (1.2 mg) under the skin once daily. Active Loratadine (18 sources) Start: 06-25-2023 loratadine (Cl aritin) Active PO June 25, 2023 12:00am take 1 tablet by merry th every twenty-four hours as needed loratadine (Claritin) 10 mg tablet Take 1 tablet (10 mg) by mouth once daily as needed for allergies. Active Claritin PRN Act caleb Claritin Active melatonin 1 mg oral tablet (20 sources) Start: 03-11-2023 take 1 mg by mouth at bedtime Melatonin Active 1 MG PO Bedtime March 11, 2023 1:00am Start: 08-30-2019 take 10 mg by mouth once daily melatonin 3 mg tablet Take 10 mg by mouth once daily. 0 08/30/2019 Active melatonin 10 mg tablet Take by mouth as needed at bedtime. Active Melatonin 1 MG c apsule Melatonin 0 Active Melatonin Active metFORMIN hydrochloride 500 mg oral tablet (20 sources) Biguanide Start: 10-28-2022 End: 10-28-2023 take [...] omeprazole 40 mg delayed release oral capsule (20 sources) Proton Pump Inhibitor Start: 05-23-2023 End: 06-02-2023 take 40 mg by mouth once daily Omeprazole Active 40 MG PO Daily June 02, 2023 2:04pm Start: 04-24-2023 End: 04-25-2023 take 40 mg [...] 1 capsule Orally Once a day Active polyethylene glycol 3350 359802 mg / potassium chloride 2970 mg / sodium bicarbonate 6740 mg / sodium chloride 5860 mg / sodium sulfate 13786 mg powder for oral solution (1 source) Osmotic Laxative Start: End: peg 3350-Electrolytes (GOLYTELY) 236-22.74-6.74 -5.86 gram suspension Take 4,000 mL by mouth one time only for 1 dose. Refer to printed patient instructions that will be mailed to you. 1 Each 0 07/22/2023 07/22/2023 Active Super Enzymes - (6 sources) Super Enzymes - as directed Orally Active traMADol hydrochloride 50 mg oral tablet (7 sources) Opioid Agonist Start: take 50 mg by mouth twice daily Tramadol Active 50 MG PO Twice daily July 03, 2023 12:00am Completed/Discontinued Medications Medication Drug Class(es) Dates Sig (Normalized) Sig (Original) baclofen 10 mg oral tablet (20 sources) gamma-Aminobutyri c Acid-ergic Agonist Start: 04-25-2023 [...] 10 MG/2 0ML as directed Intrathecal Active diazePAM 5 mg oral tablet (2 sources) Benzodiazepine Start: 07-07-2023 End: 07-25-2023 take 5 mg by mouth once Diazepam Discontinued 5 MG PO Once 1 1 July 07, 2023 12:00am July 25, 2023 9:58am diclofenac sodium 50 mg delayed release oral tablet (20 sources) Nonsteroidal Anti-inflammatory Drug Start: 04-25-2023 End: 05-23-2023 take 50 mg by mouth twice daily Diclofenac Sodium Discontinued 50 MG PO Twice daily April 25, 2023 2:48pm May 23, 2023 10:36am Start: 03-11-2023 End: 04-25-2023 take 50 mg by mouth once daily Diclofenac Sodium Disco ntinued 50 MG PO Daily March 11, 2023 1:00am April 25, 2023 2:51pm take 1 tablet by merry every twelve hours Diclofenac Sodium 50 MG 1 tablet as needed Orally Twice a day Active magnesium citrate 100 mg oral tablet (10 sources) Start: 06-25-2023 End: 08-13-2023 take 100 mg by mouth once daily Magnesium Citrate Discontinued 100 MG PO Daily June 25, 2023 12:00am August 13, 2023 2:36pm Magnesium Citrat e 100 MG as directed Orally Active predniSONE 50 mg oral tablet (1 source) Start: 07-25-2023 End: 08-13-2023 Prednisone Discontinued 50 MG PO .COMPLEX 3 July 25, 2023 12:00am August 13, 2023 2:36pm take one tab by mouth 13hrs, 7hrs and 1hr before CT scan pregabalin 50 mg oral capsule (19 sources) Start: 03-11-2023 End: 05-23-2023 take 1 capsule by mouth once daily Pregabalin (Lyrica) 50 mg Capsule Discontinued 50 MG PO Daily March 11, 2023 1:00am May 23, 2023 10:36am sennosides, snf 25 mg oral tablet (4 sources) Start: 06-25-2023 End: 08-13-2023 take 1 tablet by mouth once daily Sennosides (Laxative (Sennosides)) 25 mg tablet Discontinued 25 MG PO Daily June 25, 2023 12:00am August 13, 2023 2:37pm Tirzepatide (15 sources) Start: 05-12-2023 End: 06-19-2023 Tirzepatide (Mounjaro) 7.5 mg/0.5 mL pen injector Discontinued 0 .ROUTE .COMPLEX May 12, 2023 9:14am June 19, 2023 3:05pm INJECT 1 PEN SUBCUTANEOUSLY ONCE A WEEK Start: 05-12-2023 Tirzepatide (M ounjaro) 7.5 mg/0.5 mL pen injector Active 0 .ROUTE .COMPLEX May 12, 2023 9:14am INJECT 1 PEN SUBCUTANEOUSLY ONCE A WEEK Start: 03-11-2023 End: 05-12-2023 Tirzepatide (Mounjaro) 7.5 m g/0.5 mL Pen Injector Discontinued 7.5 MG SUBCUT every week March 11, 2023 1:00am May 12, 2023 9:14am Start: 03-11-2023 Tirzepatide (M ounjaro) 7.5 mg/0.5 mL Pen Injector Active 7.5 MG SUBCUT every week March 11, 2023 12:00am Tirzepatide (5 sources) Start: 06-19-2023 End: 06-27-2023 Tirzepatide (Mounjaro) 10 mg /0.5 mL pen injector Discontinued 10 MG SUBCUT every week 2 June 19, 2023 12:00am June 27, 2023 12:40pm Start: 06-19-2023 Tirzepatide (M ounjaro) 10 mg/0.5 mL pen injector Active 10 MG SUBCUT every week 2 June 19, 2023 12:00am Problems Active Problems Problem Classification Problem Date Documented Da te Episodic/Chronic Abdominal pain (12 sources) Abdominal pain; Translations: [Unspecified abdominal pain] Onset: 4 06-24-2023 Episodic Acquired foot deformities (1 source) Hallux rigidus, right foot; Translations: [HALLUX RIGIDUS RIGHT FOOT] Onset: 2 Chronic Acute and chronic tonsillitis (13 sources) Enlarged tonsil; Translations: [Hypertrophy of tonsils] Onset: 1 Resolved: 1 Chronic Anxiety disorders (18 sources) Mixed anxiety and depressive disorder; Translations: [Other specified anxiety disorders] Onset: 1 Resolved: 1 Chronic Cardiac dysrhythmias (1 source) Atrial fibrillation; Translations: [Unspecified atrial fibrillation] Chronic Diabetes mellitus with complications (6 sources) Type 2 diabetes mellitus with other specified complication; Translations: [Diabetes with other specified manifestations, type II or unspecified type, not stated as uncontrolled] 05-23-2023 Chronic Diabetes mellitus without complication (15 sources) Type 2 diabetes mellitus; Translations: [Type 2 diabetes mellitus without complications] Onset: 3 Chronic Disorders of lipid metabolism (1 source) Mixed hyperlipidemia; Translations: [Mixed hyperlipidemia] Onset: 7 10-28-2022 Chronic Esophageal disorders (6 sources) Gastroesophageal reflux disease; Translations: [Gastro-esophageal reflux disease without esophagitis] Onset: 3 Resolved: 3 Chronic Hepatitis (20 sources) Nonalcoholic steatohepatitis; Translations: [Nonalcoholic steatohepatitis (HAMMOND)] Chronic Lymphadenitis (14 sources) Lymphadenopathy; Translations: [Enlarged lymph nodes, unspecified] Onset: 4 06-24-2023 Episodic Menstrual disorders (5 sources) Irregular periods; Translations: [Irregular menstruation, unspecified] Onset: 0 Chronic Mood disorders (20 sources) Major depressive disorder, single episode, unspecified; Translations: [Major depression in full remission] Onset: 2 Resolved: 3 Chronic Nonmalignant breast conditions (1 source) Fibrocystic disease of breast; Translations: [Diffuse cystic mastopathy of unspecified breast] Onset: 7 10-28-2022 Chronic Other connective tissue disease (5 sources) Pain in forearm; Translations: [Pain in unspecified forearm] 05-23-2023 Episodic Other connective tissue disease (4 sources) Pain in unspecified forearm; Translations: [Pain in limb] 05-23-2023 Episodic Other gastrointestinal disorders (6 sources) Splenomegaly; Translations: [Splenomegaly, not elsewhere classified] 06-24-2023 Episodic Other gastrointestinal disorders (1 source) Abdominal mass; Translations: [Other specified diseases of intestine] 07-10-2023 Episodic Other gastrointestinal disorders (2 sources) Other specified diseases of intestine; Translations: [Other specified diseases of intestine] Onset: 4 Episodic Other gastrointestinal disorders (6 sources) Splenomegaly, not elsewhere classified; Translations: [Splenomegaly] Onset: 4 Episodic Other gastrointestinal disorders (1 source) Constipation; Translations: [Constipation, unspecified] 07-20-2023 Episodic Other liver diseases (9 sources) Steatosis of liver; Translations: [Fatty (change of) liver, not elsewhere classified] Chronic Other liver diseases (3 sources) Fatty (change of) liver, not elsewhere classified; Translations: [Fatty (change of) liver, not elsewhere classified] Onset: 4 Chronic Other liver diseases (9 sources) Cirrhosis of liver; Translations: [Unspecified cirrhosis of liver] 05-23-2023 Chronic Other liver diseases (9 sources) Unspecified cirrhosis of liver; Translations: [Cirrhosis of liver without mention of alcohol] Onset: 4 Chronic Other liver diseases (8 sources) Elevated liver enzymes level; Translations: [Abnormal levels of other serum enzymes] 03-15-2023 Episodic Other nervous system disorders (1 source) Chronic pain; Translations: [Other chronic pain] Onset: 3 Resolved: 3 08-08-2022 Chronic Other nutritional; endocrine; and metabolic disorders (13 sources) Morbid obesity; Translations: [Body mass index (BMI) 60.0-69.9, adult] Onset: 3 10-28-2022 Chronic Other nutritional; endocrine; and metabolic disorders (4 sources) Body mass index (BMI) 60.0-69.9, adult; Translations: [BMI 60.0-69.9, adult Z68.44] Onset: 1 Resolved: 1 Chronic Other nutritional; endocrine; and metabolic disorders (1 source) Morbid (severe) obesity due to excess calories; Translations: [MORBID SEVERE OBES D/T EXCESS SOFÍA] Onset: 2 Chronic Other nutritional; endocrine; and metabolic disorders (11 sources) Body mass index 40+ - severely obese; Translations: [Body mass index (BMI) 70 or greater, adult] Onset: 3 08-26-2022 Chronic Other nutritional; endocrine; and metabolic disorders (1 source) Body mass index (BMI) 70 or greater, adult Chronic Other nutritional; endocrine; and metabolic disorders (1 source) Body mass index (BMI) 50.0-59.9, adult; Translations: [Body Mass Index 50.0-59.9, adult] 08-13-2023 Chronic Other upper respiratory disease (1 source) Seasonal allergic rhinitis; Translations: [Other seasonal allergic rhinitis] Onset: 3 08-08-2022 Chronic Residual codes; unclassified (12 sources) Sleep apnea; Translations: [Sleep apnea, unspecified] Chronic Residual codes; unclassified (20 sources) Obstructive sleep apnea syndrome; Translations: [Obstructive sleep apnea (adult) (pediatric)] Onset: 3 Resolved: 3 08-08-2022 Chronic Residual codes; unclassified (6 sources) Obstructive sleep apnea (adult) (pediatric); Translations: [Obstructive sleep apnea (adult) (pediatric) G47.33] Onset: 1 Resolved: 1 Chronic Residual codes; unclassified (10 sources) Insomnia; Translations: [Other insomnia] Chronic Residual codes; unclassified (2 sources) Other insomnia Chronic Residual codes; unclassified (3 sources) Continuous positive airway pressure ventilation treatment; Translations: [Dependence on other enabling machines and devices] Chronic Residual codes; unclassified (2 sources) Dependence on continuous positive airway pressure ventilation; Translations: [Dependence on other enabling machines and devices] Onset: 3 Resolved: 3 08-08-2022 Chronic Residual codes; unclassified (1 source) Obstructive sleep apnea (adult)(pediatric); Translations: [Obstructive sleep apnea (adult) (pediatric)] Onset: 3 Chronic Residual codes; unclassified (1 source) Family history of cancer of colon; Translations: [Family history of malignant neoplasm of digestive organs] 07-20-2023 Episodic Unclassified (1 source) POST COVID-19 CONDITION UNSPECIFIED; Translations: [POST COVID-19 CONDITION UNSPECIFIED] Onset: 2 Unclassified (1 source) Nonalcoholic steatohepatitis (HAMMOND); Translations: [Nonalcoholic steatohepatitis (HAMMOND)] Onset: 3 Viral infection (1 source) COVID-19; Translations: [COVID-19] Onset: 2 Past or Other Problems Problem Classification Problem Date Documented Da te Episodic/Chronic Complication of device; implant or graft (1 source) Pain due to internal orthopedic prosthetic devices, implants and grafts, initial encounter; Translations: [PAIN INTRL ORTHO PROS DEV GFT INIT] Onset: 11-14-2021 Episodic Deficiency and other anemia (1 source) Anemia, unspecified; Translations: [ANEMIA UNSPECIFIED] Onset: 10-02-2021 Episodic Diabetes mellitus without complication (1 source) Hyperglycemia; Translations: [Hyperglycemia, unspecified] Onset: 05-31-2019 10-28-2022 Episodic Headache; including migraine (2 sources) Migraine, unspecified, not intractable, without status migrainosus; Translations: [Migraine without aura, not refractory ] Onset: 11-14-2021 Resolved: 08-08-2022 08-08-2022 Chronic Miscellaneous mental health disorders (1 source) Eating disorder; Translations: [Eating disorder, unspecified] Onset: 08-08-2022 Resolved: 08-08-2022 08-08-2022 Chronic Other aftercare (1 source) director long term care (current) use of aspirin; Translations: [SENIOR CARE CURRENT USE OF ASPIRIN] Onset: 11-14-2021 Episodic Other aftercare (1 source) Other fci (current) drug therapy; Translations: [OTH HEEL SEAT FILLER CURRENT DRUG THERAPY] Onset: 11-14-2021 Episodic Other aftercare (1 source) director long term care (current) use of oral hypoglycemic drugs; Translations: [SENIOR CARE USE ORAL HYPOGLYCEMIC DX] Onset: 11-14-2021 Episodic Other circulatory disease (1 source) Elevated blood-pressure reading, without diagnosis of hypertension; Translations: [ELEVATED BP READING W/O DX HTN] Onset: 10-30-2021 Episodic Other connective tissue disease (1 source) Arthrodesis status; Translations: [ARTHRODESIS STATUS] Onset: 11-14-2021 Episodic Other connective tissue disease (1 source) Pain in right foot; Translations: [PAIN IN RIGHT FOOT] Onset: 10-15-2021 Episodic Other gastrointestinal disorders (1 source) H/O: gallstones; Translations: [Personal history of other diseases of the digestive system] Onset: 03-18-2016 10-28-2022 Episodic Other liver diseases (4 sources) Abnormal levels of other serum enzymes; Translations: [Other nonspecific abnormal serum enzyme levels] Onset: 03-11-2023 Episodic Other lower respiratory disease (1 source) Shortness of breath; Translations: [SHORTNESS OF BREATH] Onset: 10-30-2021 Episodic Other non-traumatic joint disorders (1 source) Osteophyte, right foot; Translations: [OSTEOPHYTE RIGHT FOOT] Onset: 10-30-2021 Episodic Other nutritional; endocrine; and metabolic disorders (1 source) Obesity caused by energy imbalance; Translations: [Morbid (severe) obesity due to excess calories] Onset: 08-08-2022 Resolved: 08-08-2022 08-08-2022 Chronic Residual codes; unclassified (1 source) Acquired absence of other specified parts of digestive tract; Translations: [ACQ ABSENCE OTH PART DIGESTV TRACT] Onset: 11-14-2021 Episodic Residual codes; unclassified (1 source) Procedure and treatment not carried out for other reasons; Translations: [PROC AND TX NOT CARRIED OUT OTH REASONS] Onset: 10-15-2021 Episodic Spondylosis; intervertebral disc disorders; other back problems (6 sources) Radiculopathy, lumbar region; Translations: [Low back pain] Onset: 04-12-2022 Episodic Superficial injury; contusion (9 sources) Contusion of right foot, subsequent encounter; Translations: [Contusion of right foot, initial encounter] Onset: 10-08-2021 Episodic Results Test Name Value Interpretation Reference Range [id number]HAEL RAMON ([id number]) 1985 F Date Time Provider Department 5/13/24 [place]NA [place] GASTA5 During your visit today, we recorded the following information about you: Maday Ansari RN 07/21/2023 8:43 AM Signed Nurse received the following message from Anna [place]: Please try and obtain records locally for EGD ([facility]). Also, patient would like colonoscopy given consitpation and mother with history if colon cancer. Please advise that I have placed order but recommend discussing with her insurance to see if this will be covered as she is below the initial screening age. Nurse called [facility]. Spoke to Rio in the Medical Records department Egd done on 04/24/23 Rio will fax over the results to the fax number I provided [phone] Their fax number: [phone] (Include pt name and date) Maday Ansari RN July 21, 2023 8:41 AM Allergies As of Date: 07/21/2023 Noted Allergy Reaction POVIDONE-IODINE 07/16/2023 2 - Rash Comments: rash/itching IODINE 07/10/2023 2 - Rash Date Reviewed: 07/16/2023 Reviewed by: Jo Giles MA - Fully Assessed Reason for Visit: Results [95] Prescriptions as of 07/21/2023 - buPROPion HBr 174 mg ER tablet Take 300 mg by mouth once daily. - metFORMIN (GLUCOPHAGE) 500 mg tablet Take 500 mg by mouth. - omeprazole (PRILOSEC) 40 mg capsule Take 40 mg by mouth. - traMADol (ULTRAM) 50 mg tablet Take 50 mg by mouth. - melatonin 3 mg tablet Take 10 mg by mouth once daily. - liraglutide (VICTOZA) 0.6 mg/ 0.1 ml subcutaneous pen injector Inject 1.8 mg subcutaneously once daily. Problem List As Of Date: 07/21/2023 (None) Encounter Status:Closed by MADAY ANSARI on 07/21/23 [facility] CNOVon 07-16-2023 CNOV Office Visit (GASTA5 ) MICHAEL RAMON ([id number]) 1985 F Date Time Provider Department 07/16/23 9:30 AM ANNA [place] GASTA5 During your visit today, we recorded the following information about you: Temperature Pulse Blood pressure Height 97.4 degrees 76/minute 134/83 1.6 m Last Period 06/12/23 Anna [place] APRN.AUTOMATION CONSULTANT 07/20/2023 1:41 PM Signed NAME: Michael Ramon AGE: [age] year old Patient is referred in consultation by for an opinion regarding advanced hepatic fibrosis and my final recommendations will be communicated back to the requesting physician by way of shared Medical Record. PRESENTING COMPLAINT: advanced hepatic fibrosis follow up HISTORY Michael Ramon is a 38 year old year old female with PMHx lap rosalia (2007), depression, obesity, who presents with biopsy-proven MASH with advanced hepatic fibrosis. Diagnosed 03/2023 with biopsy-proven MASH with bridging fibrosis/early nodule formation Follows with Dr. Martinez () ETOH use: Last drink summer. 2-3 times weekly, 2 large margaritas or bottle of wine Nutrition: Adheres to Mediterranean diet since 03/2023. Currently metformin, Victoza per PCP Has lost 86 lbs since 01/2023 Some constipation - likely attributed to Victoza pr patient With left sided abd pain Evaluated by surgical oncology for splenomegaly, lymphadenopathy Per surgical oncology, deemed low suspicion for lymphomatous process at this time EV: Last EGD per outside notes 03/2023 - unknown findings Ascites: Denies HE: Denies HCC screening: CTAP 05/2023 wo contrast liver unremarkable. ALP, LFTs WNL T. Bili WNL Plt Wnl INR WNL Metabolic Syndrome Risk factors: 04/14 1) Diabetes/ Abnormal FBS >100mg/dL: yes 2) Hypertension : no 3)Triglycerides more then 150 : no 4) HDL (<50 female and <40 male): no 5) Central obesity ( Waist >102 men and >88 female) - yes Risk Factors for Liver Disease: 1. Blood transfusions before 1991: No 2. IVDA: No 3. 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 Service: No 6. High risk sexual behavior: No 7. Alcohol: Yes, last use summer 8. Obesity: yes 9. Hyperlipidemia: no per patient 10. Prolonged exposure to hepatotoxic meds: No 11. Other autoimmune disorders No OTC herbal supplements: Denies Tylenol use: Rarely Denies jaundice, RUQ pain, nausea, vomiting, constipation, diarrhea, hematochezia, hematemesis, ascites, episodes of confusion. IMAGING/PROCEDURES: Liver biopsy 03/17/23: Liver, biopsy: - Features of steatohepatitis with bridging fibrosis, cannot rule out focal early nodule formation. Histologic sections show cores of liver parenchyma with an architecture distorted by fibrous bands, consistent with bridging fibrosis. In focal areas, there appears to be possible early nodule formation, but this specimen is limited and cannot be definitive. The fibrous septae and portal tracts show mild inflammatory infiltrate composed of lymphocytes and scattered plasma cells predominantly. There is no confederated goshute bile duct injury. There is no duct centric inflammation or granulomatous inflammation. There is prominent periductal fibrosis focally. The inflammation focally spreads to the adjacent liver parenchyma, but overall interface activity is not significant. The lobular parenchyma shows mild amount of small droplet and large droplet macrovesicular steatosis, comprising about 10% of the liver parenchyma. Ballooning degeneration is present. There is no significant Kaila Denk bodies or cholestasis. Scattered foci of lobular activity are present with few acidophil bodies. The trichrome stain confirms the presence of at least bridging fibrosis. The iron stain is negative. PASD does not show alpha-1 antitrypsin globules. Overall, the finding in this biopsy show liver parenchyma with at least bridging fibrosis and features of steatohepatitis. Steatohepatitis is a pattern of injury that can be seen in numerous settings including drug or toxic injury (alcohol, medications, supplements, and others), metabolic or nutritional factors (obesity, hyperinsulinemia, dyslipidemia), and inherited conditions. These etiologies cannot be reliably based on histology alone. Correlation with clinical data including risk factors for fatty liver disease is recommended. US ABDOMEN 11/07/22: FINDINGS: There is diffuse increase in attenuation of the liver. This is a nonspecific finding seen with fatty infiltration. No focal parenchymal abnormalities. No intrahepatic biliary dilatation. The gallbladder is surgically absent. Common bile duct measures 1.1 cm. Visualized portion of pancreas unremarkable Right kidney measures 12.2 x 5.6 in the long, AP dimension. No surrounding perinephric fluid collection. No hydronephrosis. No past surgical history on file. No (more content not included)... Normal [facility] CNPNon 07-15-2023 CNPN Telephone (GASTA5) MICHAEL RAMON ([id number]) 1985 F Date Time Provider Department 07/15/23 GALINA BRIGHT ([facility]) GASTA5 During your visit today, we recorded the following information about you: Galina Bright 07/15/2023 11:44 AM Signed Called Michael Ramon to remind them of an appointment with Anna Rasheeda on 07/16/23. Left Message for patient. Left VM to check in on the 3rd floor Allergies As of Date: 07/15/2023 (Not on File) Date Reviewed: Never Reviewed Reason for Visit: Appointment [186] Problem List As Of Date: 07/15/2023 (None) Encounter Status:Closed by GALINA BRIGHT on 07/15/[address] [facility] Heterophile Abon 07-10-2023 Heterophile Ab IA.rapid Ql (S/P/Bld) Negative Normal Negative [facility] Comment on above: Performed By: #### 9 [id number] #### JEFFREY Main ([id number]) [facility] ([facility]) [id number] [place] [id number] Inpatient Patient Summaryon 07-04-2023 Inpatient Patient Summary [place] [id number] Patient Discharge Instructions Name: MICHAEL RAMON : 1985 Patient Address: [address] [place] [address] Primary Care Provider: Name: Shelley Mc DO After you are discharged if you find you have any questions, please, call [phone] ext [phone] to speak to a nurse. Discharge Diagnosis: Prescription Information: If you have been given a prescription for narcotics, seek immediate medical attention if you have any difficulty breathing or any sudden status changes such as confusion and sleepiness. If you or anyone you know is experiencing suicidal thoughts, mental health, alcohol and/or drug addiction problems; contact the [facility] 30/09 Crisis Hotline -Text 4HXKQ to 242342. If you received any narcotics, sedation, or [...] business decisions or sign any legal documents [facility] would like to thank you [...] for Disease Control and Prevention November 2013 [facility] Patient Handouton 07-04-2023 Patient Handout [facility] Progress Note - Nurseon 06-08 Progress Note - Nurse Patient called 06/08 09/30. Patient reports finding out that she has an enlarged spleen and lymph nodes. Patient inquiring whether this will prevent her from having her procedure on Friday. Notified patient office would consult the provider and call her back tomorrow (06/26/23). Provider reports patient can continue with procedure as scheduled. Called patient and notified patient that the provider is in agreement with continuing with the procedure as scheduled on Friday. [Electronically Signed on: 06/26/2023 10:19 EDT] Giuliana Travis RN [Verified on: 06/26/2023 10:19 EDT] Giuliana Travis RN Normal [facility] Inpatient Patient Summaryon 06-25-2023 Inpatient [place] [address] Patient Discharge Instructions Name: MICHAEL RAMON : 1985 Patient Address: [address] [place] [address] Primary Care Provider: Name: Shelley Mc DO After you are discharged if you find you have any questions, please, call [phone] ext [phone] to speak to a nurse. Discharge Diagnosis: Prescription Information: If you have been given a prescription for narcotics, seek immediate medical attention if you have any difficulty breathing or any sudden status changes such as confusion and sleepiness. If you or anyone you know is experiencing suicidal thoughts, mental health, alcohol and/or drug addiction problems; contact the [facility] 30/09 Crisis Hotline -Text 4HCVO ti 630820. If you received any narcotics, sedation, or [...] business decisions or sign any legal documents [facility] would like to thank you [...] for Disease Control and Prevention November 2013 [facility] Patient Handouton 06-25-2023 Patient Handout [facility] Alanine aminotransferase [En zymatic activity/volume] in Serum or PlasmaOrdered By: Chris Cottrell on 06-24-2023 ALT [Catalytic activity/Vol] 17 U/L 7-52 [facility] Albumin [Mass/volume] in Ser um or Plasma by Bromocresol green (BCG) dye binding methoOrdered By: Chris Cottrell on 06-24-2023 Albumin BCG dye [Mass/Vol] 4.1 g/dL 3.5-5.7 [facility] Alkaline phosphatase [Enzyma tic activity/volume] in Serum or PlasmaOrdered By: Chris Cottrell on 06-24-2023 ALP [Catalytic activity/Vol] 78 U/L 34-104 [facility] Aspartate aminotransferase [ Enzymatic activity/volume] in Serum or PlasmaOrdered By: Chris Cottrell on 06-24-2023 AST [Catalytic activity/Vol] 23 U/L 13-39 [facility] Basic Metabolic Panelon 06-08 Anion gap [Moles/Vol] 11.5 mmol/L Normal 6.0-15.0 [facility] Comment on above: Performed By: #### G LULS #### Point of Care testing , Calcium [Mass/Vol] 9.1 mg/dL Normal 8.6-10.3 [facility] Comment on above: Performed By: #### G LULS #### Point of Care testing , Chloride [Moles/Vol] 100 mmol/L Normal 98-107 [facility] Comment on above: Performed By: #### G LULS #### Point of Care testing , CO2 [Moles/Vol] 26.9 mmol/L Normal 21.0-31.0 [facility] Comment on above: Performed By: #### G LULS #### Point of Care testing , Creatinine [Mass/Vol] 0.74 mg/dL Normal 0.60-1.20 [facility] Comment on above: Performed By: #### G LULS #### Point of Care testing , Creatinine Clr Calc Pharmacy 146.81 Normal [facility] Comment on above: Performed By: #### G LULS #### Point of Care testing , GFR/1.73 sq M.predicted MDRD (S/P/Bld) [Vol rate/Area] mL/min/{1.73_m2} Normal [facility] Comment on above: Performed By: #### G LULS #### Point of Care testing , Glucose [Mass/Vol] 83 mg/dL Normal 70-100 [facility] Comment on above: Result Comment: [place] Glucose Reference Range is dependent on time and content of last meal. Glucose of more than 200 mg/dL in a nonstressed, ambulatory subject supports the diagnosis of Diabetes Mellitus. ADA recommended reference range Performed By: #### G LULS #### Point of Care testing , Potassium [Moles/Vol] 3.4 mmol/L Low 3.5-5.1 [facility] Comment on above: Performed By: #### G LULS #### Point of Care testing , Sodium [Moles/Vol] 135 mmol/L Low 136-145 [facility] Comment on above: Performed By: #### G LULS #### Point of Care testing , Urea nitrogen [Mass/Vol] 9 mg/dL Normal 7-25 [facility] Comment on above: Performed By: #### G LULS #### Point of Care testing , Basophils Auto (Bld) [#/Vol] Ordered By: Chris Cottrell on 06-24-2023 Basophils (Bld) [#/Vol] 0.0 10*3/uL 0.0-0.2 [facility] Basophils/100 WBC Auto (Bld) Ordered By: Chris Cottrell on 06-24-2023 Basophils/100 WBC (Bld) 0.3 % . [facility] Bilirubin Test strip Ql (U)O rdered By: Chris Cottrell on 06-24-2023 Bilirubin Ql (U) Negative Negative [facility] Bilirubin.direct [Mass/volum e] in Serum or PlasmaOrdered By: Chris Cottrell on 06-24-2023 Bilirubin.direct [Mass/Vol] 0.10 mg/dL 0.03-0.18 [facility] Bilirubin.total [Mass/volume ] in Serum or PlasmaOrdered By: Chris Cottrell on 06-24-2023 Bilirubin [Mass/Vol] 0.5 mg/dL 0.3-1.[address] [facility] [address] abdomen pelvis wo conon 0 06-24-2023 CT abdomen pelvis wo con [facility] [place] [address] CT Scan Report Signed Patient: Michael Ramon MR#: [id number] : 1985 Acct:[id number] Age/Sex: 38 / F ADM Date: 06/24/23 Loc: ER Room: Type: [facility] ER Attending Dr: Copies to: Chris Cottrell DO Ordering Provider: Chris Cottrell DO Date of Service: 06/24/23 CT/CT abdomen pelvis wo con: LUQ pain CT ABDOMEN AND PELVIS WITHOUT INTRAVENOUS CONTRAST: CLINICAL HISTORY: Left upper quadrant pain. COMPARISON: None TECHNIQUE: Spiral images were obtained through the abdomen and pelvis without intravenous contrast. This CT exam was performed using one or more following dose reduction techniques: Automated exposure control, adjustment of the mA and/or kV according to patient size, or use of iterative reconstruction technique. FINDINGS: Lung Bases: [No acute findings.] Organs:Suboptimal evaluation due to lack of IV contrast. Gallbladder has been removed. Liver pancreas and adrenal glands appear unremarkable. Splenomegaly measuring 13.8 cm. Kidneys demonstrate no stone or hydronephrosis. Abdominal aorta appears normal in caliber.[ GI: Stomach is grossly unremarkable. Small bowel appears nondilated. No acute colonic abnormality.[Appendix is normal. Pelvis:[Urinary bladder is grossly unremarkable. Uterus is grossly unremarkable. No adnexal mass.] Peritoneum/Retroperitoneum: Multiple prominent lymph nodes are seen involving the mesentery and retroperitoneum. No free air or free fluid.[ Abd wall/Bones:Abdominal wall demonstrates no acute findings. Osseous structures demonstrate degenerative change.[ CT/CT abdomen pelvis wo con IMPRESSION: Multiple prominent mesenteric and retroperitoneal lymph nodes. Given the splenomegaly, developing lymphoma cannot be excluded. No acute process is seen. Impression dictated by: Conrado Rascon Jr., D.OGeri06/24/2023 1:30 PM Dictation Location: [place] [address] Transcribed By: [facility] 06/24/23 1330 Dictated By: Conrado Rascon Jr, DO 06/24/23 1326 Signed By: 06/24/23 1330 Normal [facility] Calcium [Mass/volume] in Ser um or PlasmaOrdered By: Chris Cottrell on 06-24-2023 Calcium [Mass/Vol] 9.1 mg/dL 8.6-10.3 [facility] Carbon dioxide, total [Moles /volume] in Serum or PlasmaOrdered By: Chris Cottrell on 06-24-2023 CO2 [Moles/Vol] 26.9 mmol/L 21.0-31.0 [facility] Chloride [Moles/volume] in S jayden or PlasmaOrdered By: Chris Cottrell on 06-24-2023 Chloride [Moles/Vol] 100 mmol/L 98-107 [facility] Color Auto (U)Ordered By: Efrain Cottrell on 06-24-2023 Color (U) Yellow Yellow [facility] Complete Blood Count Auto Di ffon 06-24-2023 Basophils (Bld) [#/Vol] 0.0 10*3/uL Normal 0.0-0.2 [facility] Comment on above: Result Comment: PERF ORMED BY: [facility] [place] [address] PATHOLOGIST GYN PHYSICIAN SINCERE GREENWOOD M.D. Performed By: #### G LULS #### Point of Care testing , Basophils/100 WBC (Bld) 0.3 % Normal . [facility] Comment on above: Performed By: #### G LULS #### Point of Care testing , Eosinophils (Bld) [#/Vol] 0.0 10*3/uL Normal 0.0-0.45 [facility] Comment on above: Performed By: #### G LULS #### Point of Care testing , Eosinophils/100 WBC (Bld) 0.1 % Normal . [facility] Comment on above: Performed By: #### G LULS #### Point of Care testing , Erythrocyte distribution width (RBC) [Ratio] 15.0 % Normal 11.9-15.3 [facility] Comment on above: Performed By: #### G LULS #### Point of Care testing , Hematocrit (Bld) [Volume fraction] 37.5 % Normal 34.0-46.4 [facility] Comment on above: Performed By: #### G LULS #### Point of Care testing , Hemoglobin (Bld) [Mass/Vol] 12.2 g/dL Normal 11.8-15.4 [facility] Comment on above: Performed By: #### G LULS #### Point of Care testing , Lymphocytes (Bld) [#/Vol] 1.7 10*3/uL Normal 1.00-4.8 [facility] Comment on above: Performed By: #### G LULS #### Point of Care testing , Lymphocytes/100 WBC (Bld) 24.4 % Normal . [facility] Comment on above: Performed By: #### G LULS #### Point of Care testing , MCH (RBC) [Entitic mass] 26.5 pg Normal 24.7-34.3 [facility] Comment on above: Performed By: #### G LULS #### Point of Care testing , MCV (RBC) [Entitic vol] 81.0 fL Normal 80-100 [facility] Comment on above: Performed By: #### G LULS #### Point of Care testing , Mean Corpuscular HGB Conc 32.7 g/dL Normal 32.0-35.0 [facility] Comment on above: Performed By: #### G LULS #### Point of Care testing , Monocytes (Bld) [#/Vol] 0.6 10*3/uL Normal 0.0-0.8 [facility] Comment on above: Performed By: #### G LULS #### Point of Care testing , Monocytes/100 WBC (Bld) 22.79 % High 0.00-20.00 [facility] Comment on above: Result Comment: For adults in ED, MDW > 20.0 may be associated with a higher risk of sepsis during the first 12 hrs of hospital admission Performed By: #### G LULS #### Point of Care testing , Monocytes/100 WBC (Bld) 8.1 % Normal . [facility] Comment on above: Performed By: #### G LULS #### Point of Care testing , Neutrophils (Bld) [#/Vol] 4.6 10*3/uL Normal 1.8-7.7 [facility] Comment on above: Performed By: #### G LULS #### Point of Care testing , Neutrophils/100 WBC (Bld) 67.1 % Normal . [facility] Comment on above: Performed By: #### G LULS #### Point of Care testing , NRBC% 0.1 /100{WBC} Normal 0-0.5 [facility] Comment on above: Performed By: #### G LULS #### Point of Care testing , Platelet mean volume (Bld) [Entitic vol] 9.0 fL Normal 6.3-10.7 [facility] Comment on above: Performed By: #### G LULS #### Point of Care testing , Platelets (Bld) [#/Vol] 254 10*3/uL Normal 150-450 [facility] Comment on above: Performed By: #### G LULS #### Point of Care testing , RBC (Bld) [#/Vol] 4.63 10*6/uL Normal 3.60-5.00 [facility] Comment on above: Performed By: #### G LULS #### Point of Care testing , WBC (Bld) [#/Vol] 6.9 10*3/uL Normal 3.8-11.6 [facility] Comment on above: Performed By: #### G LULS #### Point of Care testing , Creatinine [Mass/volume] in Serum or PlasmaOrdered By: Chris Cottrell on 06-24-2023 Creatinine [Mass/Vol] 0.74 mg/dL 0.60-1.20 [facility] Eosinophils Auto (Bld) [#/Vo l]Ordered By: Chris Cottrell on 06-24-2023 Eosinophils (Bld) [#/Vol] 0.0 10*3/uL 0.0-0.45 [facility] Eosinophils/100 WBC Auto (Bl d)Ordered By: Chris Cottrell on 06-24-2023 Eosinophils/100 WBC (Bld) 0.1 % . [facility] Erythrocyte distribution wid th Auto (RBC) [Ratio]Ordered By: Chris Cottrell on 06-24-2023 Erythrocyte distribution width (RBC) [Ratio] 15.0 % 11.9-15.3 [facility] Globulin Calc (S) [Mass/Vol] Ordered By: Chris Cottrell on 06-24-2023 Globulin (S) [Mass/Vol] 4.1 g/dL [facility] Glucose [Mass/volume] in Ser um or PlasmaOrdered By: Chris Cottrell on 06-24-2023 Glucose [Mass/Vol] 83 mg/dL 70-100 [facility] Comment on above: ADA recommended refe rence rangeRandom Glucose Reference Range is dependent on time and content of last meal. Glucose of more than 200 mg/dL in a nonstressed, ambulatory subject supports the diagnosis of Diabetes Mellitus. HCG ( test) IA.rapi d Ql (U)Ordered By: Chris Cottrell on 06-24-2023 HCG ( test) Ql (U) Negative [facility] HCG,Urineon 06-24-2023 Beta HCG ( test) Ql (U) Negative Normal [facility] Comment on above: Order Comment: Name Collection Type:: Clean-Voided Midstream Result Comment: PERF ORMED BY: [facility] [place] [id number] PATHOLOGIST GYN PHYSICIAN SINCERE GREENWOOD M.D. Performed By: #### G LULS #### Point of Care testing , Hematocrit Auto (Bld) [Volum e fraction]Ordered By: Chris Cottrell on 06-24-2023 Hematocrit (Bld) [Volume fraction] 37.5 % 34.0-46.4 [facility] Hemoglobin [Mass/volume] in BloodOrdered By: Chris Cottrell on 06-24-2023 Hemoglobin (Bld) [Mass/Vol] 12.2 g/dL 11.8-15.4 [facility] Hepatic Panelon 06-24-2023 Albumin [Mass/Vol] 4.1 g/dL Normal 3.5-5.7 [facility] Comment on above: Performed By: #### G LULS #### Point of Care testing , Albumin/Globulin [Mass ratio] 1.0 {ratio} Normal [facility] Comment on above: Performed By: #### G LULS #### Point of Care testing , ALP [Catalytic activity/Vol] 78 U/L Normal 34-104 [facility] Comment on above: Performed By: #### G LULS #### Point of Care testing , ALT [Catalytic activity/Vol] 17 U/L Normal 7-52 [facility] Comment on above: Performed By: #### G LULS #### Point of Care testing , AST [Catalytic activity/Vol] 23 U/L Normal 13-39 [facility] Comment on above: Performed By: #### G LULS #### Point of Care testing , Bilirubin [Mass/Vol] 0.5 mg/dL Normal 0.3-1.0 [facility] Comment on above: Performed By: #### G LULS #### Point of Care testing , Bilirubin,Indirect 0.4 mg/dL Normal [facility] Comment on above: Performed By: #### G LULS #### Point of Care testing , Bilirubin.indirect [Mass/Vol] 0.10 mg/dL Normal 0.03-0.18 [facility] Comment on above: Performed By: #### G LULS #### Point of Care testing , Globulin (S) [Mass/Vol] 4.1 g/dL Normal [facility] Comment on above: Performed By: #### G LULS #### Point of Care testing , Protein [Mass/Vol] 8.2 g/dL Normal 6.4-8.9 [facility] Comment on above: Performed By: #### G LULS #### Point of Care testing , Ketones Auto test strip (U) [Mass/Vol]Ordered By: Chris Cottrell on 06-24-2023 Ketones (U) [Mass/Vol] Negative Negative [facility] Leukocytes [#/volume] correc terri for nucleated erythrocytes in Blood by Automated counOrdered By: Chris Cottrell on 06-24-2023 WBC corrected for nucl RBC Auto (Bld) [#/Vol] 6.9 10*3/uL 3.8-11.6 [facility] Lipaseon 06-24-2023 Lipase [Catalytic activity/Vol] 4.0 U/L Low 11.0-82.0 [facility] Comment on above: Result Comment: PERF ORMED BY: [id number] [place] [address] PATHOLOGIST GYN PHYSICIAN SINCERE GREENWOOD M.D. Performed By: #### G LULS #### Point of Care testing , Lipase [Enzymatic activity/v olume] in Serum or PlasmaOrdered By: Chris Cottrell on 06-24-2023 Lipase [Catalytic activity/Vol] 4.0 U/L 11.0-82.0 [facility] Lymphocytes Auto (Bld) [#/Vo l]Ordered By: Chris Cottrell on 06-24-2023 Lymphocytes (Bld) [#/Vol] 1.7 10*3/uL 1.00-4.8 [facility] Lymphocytes/100 WBC Auto (Bl d)Ordered By: Chris Cottrell on 06-24-2023 Lymphocytes/100 WBC (Bld) 24.4 % . [facility] MCH Auto (RBC) [Entitic mass ]Ordered By: Chris Cottrell on 06-24-2023 MCH (RBC) [Entitic mass] 26.5 pg 24.7-34.3 [facility] MCHC Auto (RBC) [Mass/Vol]Or dered By: Chris Cottrell on 06-24-2023 MCHC (RBC) [Mass/Vol] 32.7 g/dL 32.0-35.0 [facility] MCV Auto (RBC) [Entitic vol] Ordered By: Chris Cottrell on 06-24-2023 MCV (RBC) [Entitic vol] 81.0 fL 80-100 [facility] Monocyte distribution width [Entitic volume] in Blood by AutomatedOrdered By: Chris Cottrell on 06-24-2023 Monocyte distribution width Auto (Bld) [Entitic vol] 22.79 % 0.00-20.00 [facility] Comment on above: For adults in ED, MD W > 20.0 may be associated with a higher risk of sepsis during the first 12 hrs of hospital admission Monocytes Auto (Bld) [#/Vol] Ordered By: Chris Cottrell on 06-24-2023 Monocytes (Bld) [#/Vol] 0.6 10*3/uL 0.0-0.8 [facility] Monocytes/100 WBC Auto (Bld) Ordered By: Chris Cottrell on 06-24-2023 Monocytes/100 WBC (Bld) 8.1 % . [facility] Neutrophils Auto (Bld) [#/Vo l]Ordered By: Chris Cottrell on 06-24-2023 Neutrophils (Bld) [#/Vol] 4.6 10*3/uL 1.8-7.7 [facility] Neutrophils/100 WBC Auto (Bl d)Ordered By: Chris Cottrell on 06-24-2023 Neutrophils/100 WBC (Bld) 67.1 % . [facility] Nitrite Test strip Ql (U)Ord ered By: Chris Cottrell on 06-24-2023 Nitrite Ql (U) Negative Negative [facility] No Panel InformationOrdered By: Chris Cottrell on 06-24-2023 Estimated GFR (CKD-EPI) > 60.0 mL/Min [facility] Creatinine Clearance (Chem 146.81 [facility] Nucleated erythrocytes [Pres ence] in Blood by Automated countOrdered By: Chris Cottrell on 06-24-2023 Nucleated RBC Auto Ql (Bld) 0.1 /100{WBC} 0-0.5 [facility] Platelet mean volume Auto (B ld) [Entitic vol]Ordered By: Chris Cottrell on 06-24-2023 Platelet mean volume (Bld) [Entitic vol] 9.0 fL 6.3-10.7 [facility] Platelets Auto (Bld) [#/Vol] Ordered By: Chris Cottrell on 06-24-2023 Platelets (Bld) [#/Vol] 254 10*3/uL 150-450 [facility] Potassium [Moles/volume] in Serum or PlasmaOrdered By: Chris Cottrell on 06-24-2023 Potassium [Moles/Vol] 3.4 mmol/L 3.5-5.1 [facility] Protein Auto test strip (U) [Mass/Vol]Ordered By: Chris Cottrell on 06-24-2023 Protein (U) [Mass/Vol] Negative Negative [facility] Protein [Mass/volume] in Ser um or PlasmaOrdered By: Chris Cottrell on 06-24-2023 Protein [Mass/Vol] 8.2 g/dL 6.4-8.9 [facility] RBC Auto (Bld) [#/Vol]Ordere d By: Chris Cottrell on 06-24-2023 RBC (Bld) [#/Vol] 4.63 10*6/uL 3.60-5.00 [facility] Serum or plasma albumin/glob ulin mass ratioOrdered By: Chris Cottrell on 06-24-2023 Albumin/Globulin [Mass ratio] 1.0 {ratio} [facility] Serum or plasma anion gap de terminationOrdered By: Chris Cottrell on 06-24-2023 Anion gap [Moles/Vol] 11.5 mmol/L 6.0-15.0 [facility] Serum or plasma non-glucuron idated bilirubin measurement (mass/volume)Ordered By: Chris Cottrell on 06-24-2023 Bilirubin.indirect [Mass/Vol] 0.4 mg/dL [facility] Sodium [Moles/volume] in Ser um or PlasmaOrdered By: Chris Cottrell on 06-24-2023 Sodium [Moles/Vol] 135 mmol/L 136-145 [facility] Specific gravity Auto test s trip (U) [Rel density]Ordered By: Chris Cottrell on 06-24-2023 Specific gravity (U) [Rel density] 1.006 1.001-1.03 0 [facility] Urea nitrogen [Mass/volume] in Serum or PlasmaOrdered By: Chris Cottrell on 06-24-2023 Urea nitrogen [Mass/Vol] 9 mg/dL 7-25 [facility] Urinalysison 06-24-2023 Appearance (U) Clear Normal Clear [facility] Comment on above: Order Comment: Name Collection Type:: Clean-Voided Midstream Performed By: #### G LULS #### Point of Care testing , Bilirubin,Urine Negative Normal Negative [facility] Comment on above: Order Comment: Name Collection Type:: Clean-Voided Midstream Performed By: #### G LULS #### Point of Care testing , Color (U) Yellow Normal Yellow [facility] Comment on above: Order Comment: Name Collection Type:: Clean-Voided Midstream Performed By: #### G LULS #### Point of Care testing , Glucose Ql (U) Normal Normal Normal [facility] Comment on above: Order Comment: Name Collection Type:: Clean-Voided Midstream Performed By: #### G LULS #### Point of Care testing , Ketones Ql (U) Negative Normal Negative [facility] Comment on above: Order Comment: Name Collection Type:: Clean-Voided Midstream Performed By: #### G LULS #### Point of Care testing , Leukocyte esterase Test strip Ql (U) Negative Normal Negative [facility] Comment on above: Order Comment: Name Collection Type:: Clean-Voided Midstream Performed By: #### G LULS #### Point of Care testing , Nitrite,Urine Negative Normal Negative [facility] Comment on above: Order Comment: Name Collection Type:: Clean-Voided Midstream Performed By: #### G LULS #### Point of Care testing , Occult Blood,Urine Negative Normal Negative [facility] Comment on above: Order Comment: Name Collection Type:: Clean-Voided Midstream Performed By: #### G LULS #### Point of Care testing , pH (U) 6.0 [pH] Normal 5.0-9.0 [facility] Comment on above: Order Comment: Name Collection Type:: Clean-Voided Midstream Performed By: #### G LULS #### Point of Care testing , Protein,Urine Negative Normal Negative [facility] Comment on above: Order Comment: Name Collection Type:: Clean-Voided Midstream Performed By: #### G LULS #### Point of Care testing , Specificy [place],Urine 1.006 Normal 1.001-1.03 0 [facility] Comment on above: Order Comment: Name Collection Type:: Clean-Voided Midstream Performed By: #### G LULS #### Point of Care testing , Urobilinogen,Urine Normal Normal Normal [facility] Comment on above: Order Comment: Name Collection Type:: Clean-Voided Midstream Performed By: #### G LULS #### Point of Care testing , Urine clarity by refractomet ry automatedOrdered By: Chris Cottrell on 06-24-2023 Clarity Refractometry automated (U) Clear Clear [facility] Urine glucose measurement by automated test strip (mass/volume)Ordered By: Chris Cottrell on 06-24-2023 Glucose Auto test strip (U) [Mass/Vol] Normal mg/dL Normal [facility] Urine hemoglobin detection b y automated test stripOrdered By: Chris Cottrell on 06-24-2023 Hemoglobin Auto test strip Ql (U) Negative Negative [facility] Urine leukocyte esterase det ection by automated test stripOrdered By: Chris Cottrell on 06-24-2023 Leukocyte esterase Auto test strip Ql (U) Negative Negative [facility] Urobilinogen Auto test strip (U) [Mass/Vol]Ordered By: Chris Cottrell on 06-24-2023 Urobilinogen (U) [Mass/Vol] Normal mg/dL Normal [facility] WBC Auto (Bld) [#/Vol]Ordere d By: Chris Cottrell on 06-24-2023 WBC (Bld) [#/Vol] 6.9 10*3/uL 3.8-11.6 [facility] pH Auto test strip (U)Ordere d By: Chris Cottrell on 06-24-2023 pH (U) 6.0 [pH] 5.0-9.0 [facility] Coding Summaryon 06-18-2023 Coding Summary HTMLBase 64 GruinvijBRe5zDy+PGhlYWQ+PE1 ZMKEbP39srSFcvG6qK6IQSJlHMb umTUKSBKjKFrBtyaAeNI9qbSRgS XJu IC8+FX8lEDIvPxfujFIvm2P3qVT 4B78zaa7hBYqmgON9AYQaOeSyqu lba5sfwNf9FTqmAwcpAhMg DECynL38BOA1aN12Ms71cVNfhFP js2yqeBl4EnEcFYHjMGZ2mMeoOL ykz9ChZLLhR99rgRQyt5W3 ZEVszFzogUSpMdMqvYD3lN3kDIk etsjmh3aobvvkWkr7on25gSFaw5 B8yCI8L4SjykD4HADsaXYm FrfayIMThT4gddetc8stpoalNqR fOVLpRQi5PDa4VAMnfGbqEvGdPI 88QMS2YGAejaFnH7BwADRd vSdbRzD8b6P0Xz8ZH3LGWdboH4I NTUFSWTwvdGQ+TW27mx79Y3AlSq acDzm6QYFvYXF9lKO3hV8j INFeZVdsa3Z3yXR9D0ZtmyBlfv1 zl8npCIYuZUrgV62yhSNxp9M6LM GnmTY3XNLwaKkzAmXeoA14 Oyc+OSFsbVuwa9NrLwofv9lzz1r reUt1XvtdZPFjgpLvrFqfIPO7d0 AeLu9bVCQjhNH5oJY0mQ5v VoWaNzY6BCrgC538YvIkfTNoPil aR34zY6JoiOJ+XLCiEph4PHYgrS miVW9hN9HeQRHrelqyoWMg uXiiZI6dDNHskqjgLSOtyV0mPRX sW8e4HaXnWyC8IRwnE1RfEKMuey xxUa06lI6cHcAnNdY4AVkx G5XjcnV8DDPxrHPjANlbXVC9V30 lq6C2LOMpAJBkRPE1wRE8yP4fqS lnbjogbGVmdDsgdmVydGlj OOxwJOdcV606GWChaMuqGbBpRKh uZyBEYXRlOiAgMDQvMTAvMjAyND wvdGQ+GKLkYAO8nZuqYCCq iYBsBMfxIs8dgUkhcZvaEJ4oWTG kvrvmYKSxhQ5uRREriIWtwUooBL 6jRYAsnehyd114OtQpUVH7 CBEdiNVgG3TniO8eHoYlHTXxKFZ dB5MwlDOmGZqsI889LIlkDwM8UE YdpdNxG9PtBWMevKvaPsC9 p5K2Sx6Vg5DazkfvS8OloDTmLpF vDravDVp6K8NdPjjmiST+PC90YW DcPU20LIt2AGJ8gDofWXib OURkI8KnhP5sBgMwLNHcFNCoSrs +PHRhYmxlIHdpZHRoPScxMDAlJy MuxUnvRP1fSg2eQCAtIXLj eAxezZZtGjRbt4gtOFTjHSwtMH2 idAuvR9UudGH4TZQkz9r2Qr56S7 3zE7FfiLQ+GYCpsKJ1eMB4 dA1pHyItLeH3HJbaS089NcEjnFA oMbpvr3zni1uxpAx3AuR5MBDuky PrpGraAVY8t6LnWx57F39k IHdpZHRoPSIxNSUiIHZhbGlnbj0 ywA0cWj5+THMhuDU5tIU4nJ7lOc HwGxA7FZsvW723RxOpeXSc Qcyaz6xaf4yyvZo8BaGmNJCzerB mvBfjSNZ0h2RiRj10M5HudXkpz1 KwLeq4dr21hORqr9O1dRY0 F6GgYQHjrxlywSGiqLtoAM3bQOU fgsfbTQTayU4aZTUiU6s9MuZzLv N5SOooG7AxzrN2HPVwpDNf NUGpiTUAsZ7sfmskd5irfkasJaQ kNOAmYWs8UTc3IRJkcLyxOdRpJA Q0WdI9AQL9yDWllH8seQqt yebthS8fPff+EQX4wBFnvMXATV4 lOjwvdGQ+NYOoJWY7oAlsSSqfMB XiwP4nJDVaD9v2OjSaEpB7 RTuiH1AbbpC5ORGrhCTvJOHovUU LmU7dkwxus5lrmfcoNhNhIDVqIQ s6UMz8THDhaTglRiAwAXJ0 GdQ7TJV3yDWnsH0kpZryomfsjO9 wOyc+CukpoOlmLEH1OBa1A0DnYk a7CIXpkAspOF5erFGvYQeu Xo1zqJajwFsbVT3rDNEczivzs71 0MlJgg2dgHIAkfXXwGKoyGFO5V8 5sm0F7TNYuDYHfWNX5lDQ5 fW2qhOphwjgjkMIwfKduzkPedKd hSVwoNZxbU701XUEarEefFvBgUI i5W4RoCsp0LVUblRrbZJ2v bIIlCQphQk1ezCjzlIwkPN9yFQW enfgxj647SgZtf0xeRPJbnDEgXN qoHGN1C33aw2T8HUWyMCIf OZE6qAM8lG1keCfvtmatmDKnqHt yvcLjnAgbSKbdTNcbR485WZGlrU ewVtXpuTt0S7AjPrl2UYKy cRzrWL8znIRhCTdqYt4wkXidzWj rXJ7lZXKfrwouz455AtJms8enTH LfgJPgRTsfRQA6J67ng3N3 ONFrGSZdVPQ8tKV5bM9dxYnqjod gbGVmdDsgdmVydGljYWwtYWxpZ2 46IHRvcDsnPlBhdGllbnQg IEwfZMq2K9JgFnamkTG+KI31RJE iWU40aFUynOLxw2ekeQc9SeIsAO BgCPO6jYdqBZzqv6IqGKYm O93qaHWul1S9VBRjjJiyaSRoLdA btEJ7xD7tRGcnsfvtj1umympgQt bll4ccfl00iR46Z78nEHzq QRZbPXAaHHOgDCWrwVopsh4jpV5 wIi8+YTBwoBP3rIM6yQ5nHXObFb X1WFtiO112DoFiwTVvMobx n8lgg4dqzLj1HkK0ITWzeoEprRn sBSL7f7LuBn21V75mIJenONEhNJ DpGDRtSPQlhTmknx3qoK4x Ii8+DWKxgAA6uGP1bP3aFmMdJaI 3ODyaB973RiDqrCZaMkvoE58uJ8 JvdXA+UUZsFlk9LQXktWwx QD2hzJNmSQjdKs6oKLE4AqYuHwH rRFgtT3HhEURkeymxpsyauJN8YQ AeSITviQ20Wo6fmJxiHUBq pOPSrJ8teqyai4bhrdtjNqQqRZJ aVYw1OJo3YKQnmNvrJoNvRGO3Jo T6YPH7bQUfbR6uwQotowro kY8dF5BlZEQpljkqGt03kP5sKfW xVzJ9XHfqLcm+TVVMTEVOUywgUk LUYRXWAVHRGSvNVuY6S3Lv Giw4OIGpnRowKC4roYRtKSjeOb0 qdOzvbGqdAZ5fBCJlfbtlJVOfiD 0vZSQevIGbfJnjXA1aLFKj kmiqc889HnMaRJR8KYRibWEgV7J lsN7sHvZwMBVfKIJgT4AzuJBgAD ppE444SAfjQlR4ADOnvsMq D1JuXPIhkTqpYsI0f8M2Mn7tZY5 tZk9lSQp0GQ31PY69pSFqs1K6kV P1F8HvXLAmauvumctlsJO2 MSLwXYUalD15kBHnTKcnEp8xq9D 0g139SSPvKMHoaI69Ec1fkAvnMC WhtHSYjP8kvfsmr9nubrwv SaSkGXYcHNf7XCc3LOHnjBwoDnT eCGN8VmZ3CBS0kMQfpB7peNkeqv glqW8xJmf+MzggWWVhcnM8 U2ZjCrk8DRZahEvfZH8wgPYpBKc iUs4fyTxsoAesUG7qJGLpmpyeAY SpmM6gWWXjpFOipMiiIM7c XEFidqtvp526IbIuOZU0CCXrbTT dT1UlvE6iWnZzMNJwVNWjJ8YajV QaMXeyI730NXgxJoZ5OBTc isPhZ5HtMLSyuNrmDyC7r4H3Ve8 TDD5YWLL1Z9UfSif9XJWlyCshNQ 7rkTBnXMbzYf6izXxvcOqx GC2iQIDvacryZBXyeK8ySZUctXW hkYaaSA8uFDMdbvalm475BgLxGZ J4WKOrjVRvE6PzjB1mHdUz WLMgVIQlM7VgqGItDSgzY174GRm sCjF5OPBezqImL9FhYKXotIakBv Y3n0P3Ut1FQJxjdMA+PC90 ox63H5VwQspgUqq1NLSdULD0cZQ 5tO1uHSShONrmv6S0hED6R2Titc Rhdd4un6ceXSXiRZxyV98x dVZmo4K2EAFqfPL4STFjpBatFjV vhG80Zbh+CLGqiIket6FwJheyl9 cxl7apxEs0LeSnZNBonbLb kYzyJQN8g6LtKf51J81tUXhtDFB sDLUlOVVjXSMirXyqbd8khB4qJo 8+OHBlyAL2oWP3oM1jEqCv UuZ6EQrpS778VuAujMLcFutyf2o ao0iveNl8IiKfPMZgtvUdwPyuED G7i1ImHm16N5DohPqrr6Se Ztz8zk52pHAft7A0aDU3F8OqJGN vkpnvoXMeoSheXP5cOVMevrykRL TnxZ3kVEKuN7j1ElBaWaF9 GSemN6NpemN0UHNhdZVzXJPhiDN FfR9tzktci8ktgikeJwPkYAHdJU r5SIx6RHIixZelXdTaUGC0 IaP9JSY6wXStkW9gbNxojjygkG9 wOyc+MHt5j2lwfUSnVT0aeJE0GX 44TF30hNSrd7I8wMV4D5Pw XUGvmubypctokTQ1AFMnSGOorD3 0Fl0jvMpbXp1vZDDpBDM3YFVckA LiZ3SugH4oKxZsURZyYWRb U7OxuHZmPPilZ328XUutSoN6ZPN mdaHrA5KqVGWlnYjyTpR4g9Z7Mw 4QNE41KD22OE61aOJtr4F0 uVP9U9EtJSOuxjzcpmrvgUZ5YVL xSNXwsB01Uc3ikZptJg0wLIZuFL F1GBCxhXPrJ5BzkP4kGtRc EHYqMBLfM8YuuMNlRWbhP723RIr aNgA3VPMdofKiA0NvHLTiqBshBj E2a4G0Sp0IKl94FY39TF66 oUDum7J2xSF9Q9HhHRGpjxbbfni vzTX5GGNoVPGsqS70Iw8clZuaAi 0wALFhWNO8DRVtyPPrT6Yc oG1tRaGvRANlMPBwG9KihIMwFIc dZ609XDcbHiW4HQMptuDeE8TpWK EuyKwnRxT6c9H2Ud7ENVuh qyy9I1OyLqrguPG+RU01UQFxET4 8hTUcxZZvo7smxSy1PbOoIMMrYL J5qAhvKXrsg3IyKSDjY85f bGF (more content not included)... [facility] Progress Note - Provideron 0 06-16-2023 Progress Note - Provider [id number] [facility] HbA1c HPLC (Bld) [Mass fract ion]on 05-23-2023 HbA1c (Bld) [Mass fraction] 5.2 % [facility] Coding Summaryon 05-20-2023 Coding Summary HTMLBase 64 EmbradyaNZp3fZh+PGhlYWQ+PE1 AABQxE61noCKtiU6oM8LVEFyWLc fnHSGLUJxJWiZufxKmYR9xdXRwD XJu IC8+AY9cLCLhZdxmaPPtq7K7gDR 2L89ftj8xAEeihER3XUWwUwSaks tny4sndXs5GThmQjeuRcZw MREviO56EQK0pT22Og15sLDulVV vs7fquVj8DnIsGMWfSNS1fTbtCB irr2EoCULrY13xlAZmn7Q8 VGZnuMnrdLZqOzSwoDO1kV2fJCl uwevut0exvkrkFnp2qr72yXNdr1 O6sXS2L9RaskE3ECMgcCJn ZjoguKVOuL7hrfbli6fttxotJmK sDVYfTRk1OQk9DLSrjDgxTuKxMK 12NQM4BPGfmoOaH9JzBCMq pBdiPrP5h5L5Ip8IE1DHZzdtB2F NTUFSWTwvdGQ+NK38jv76M8EbVl lzSpq1XWYiOBW3aHK4vM7m FVLrRGlet0X5tJG7P5HkahRwze3 ez1iaCFKfRGscE44tyXCwv0I7AY YyiAT4XVAlgQrlGhDqlT14 Oyc+PUCkrIynv6YsLfnky2vvi0w koWg4CxofIOYedcHuiGixXZY8y7 IcXp1pPDYrvOF9dKB2bQ3b NuAaFsN2FInmE291VkSddUClYvd zU78aU7DwbPT+EBLvDck1DYUhvL sfQU4rU9JzGUKlysktcEEj bEkxJI9iBGYfzoivGGIylP2sJAF fC8t3JxUfYnX0PTavP4MkPBVxam nzDq54gM7kNtPhHiK0IAyv V3YyabD6GDUseSZmJGjoFZM1W01 qy9D6YDDkRKGuZRN5kSU3xL0hfS lnbjogbGVmdDsgdmVydGlj MOfqZHoeH523UBMxzLlhXyGrZCm uZyBEYXRlOiAgMDMvMTIvMjAyND wvdGQ+MWVgATU7xLirMXDi fPKwWHlrVs9rdDjykZvfMV4qSIW wvkajPXNkwZ9eNPJnwPOcrMlqEH 3hRZUhlemch912FnTcSDF7 MVWuyFLxW5WkmL8aNzLvKGDiFLT dF7VlbVZaNBhhX307OYhiGoV7KG StumPxW6MvOVZanAuiZmF8 z3B8Xb4Ah0DotmynW6TzfUEeIgW vSymzPYp4X0ZxWdjynQJ+PC90YW UsRL22VBg6ONR1kFvdJTik YTScH9CtsP6gWiPtZSVtNSPpCau +PHRhYmxlIHdpZHRoPScxMDAlJy LypAeuLD8kNb3pOAWkTPRl xVfkxQLcWoAmb4phJEGcYVwdFL9 esYxmN2YshFH8NPHnu7e6Sa97K6 4jZ9DzaCP+LXFqpQY0kDQ1 cF3lSkUqNmV3CJtbW330TtUqaHG aFdvta1xcq3kvuPf6BrN0GXQwss WnwVlgYXD0p9JmHh36S05t IHdpZHRoPSIxNSUiIHZhbGlnbj0 lwQ1tLm2+VXYeoQY0dUO4nT8oWv JwCxT8BJvzY924TnQutWDo Wdiwb8wjy9pptSd0YcZwSPHotdW twXghWGI9o2OnOn90E9HnaFaqq5 AuOlv9ey33eJYst3C0qNC5 R8IvLRXstmtmxDAziAqpXT2hWCO demflUYPziF3nHTBtF7b9LqZpUv F9GSnwJ2GtmvI6OKAqlDAp PWKcbJTQdG1bxfjto4vpqntlOoN yPFGcKWx4EOn0AJNdjZmfRsIhEE Q2YyY9FGW1dSExhF6mxVkb fsxswN6nNqv+KAA3yWIxfYODIG0 lOjwvdGQ+KBRjIUP8fJwlNSdhXR VjrS9cGAMsC9c0KbIjFaY5 RNumU8XnsxN7SKRnqLUdJCZxqKN UoZ8yhqvqp4opcxqcRnFgLPJuUZ e1UEb9LYIobQfzUsFgCVU9 RkC1OFR4eYOuoO8wrLgtcmcxwW4 wOyc+SauloNldIGW9MOn8A4NiJl n5UVBwtItgFY7xtVCvYUgm Kt8bdLolcWtkKD2oHUDrrqkij64 5HqVjo5ygXXQrnWOiIDhfXJY1X1 8du5S5GCPkOVDqYXF1yYV1 kN2noYibfdtbnJJbwSeazeFctQp jCSzaHLlhN364KHGmjBenOsIkVT z6P9EaLqk7WXMdrGvkBX6u vVJwUGhdDn4tkTpyvKgxMT6vVLN jrvszx368UaPmk9tlUCCtjTXoGP htZYK2V84wq2D9ZPMxKXZw ZWQ1cQR5bN1mlPipjkietGSwiGg xcxJfrZftZStlCBzwO681XQVqxV gwZiFpyDb7S6JyBip3XMVm bVfeQF2txIKmITfnHx5yuAtfeUz aWT1yAERodmysp466JcVsw4bgTF SimATbVSinDLX2X83we0C6 JWDfUAEeLVQ7lNQ8yL3uhCphroq gbGVmdDsgdmVydGljYWwtYWxpZ2 46IHRvcDsnPlBhdGllbnQg CTogYWy5L2KeYvdjmUJ+OE69JBY tDF33jEEwaIDwr0snpPx9PsGaPQ OaTWD4lUrqDFqnw8KkHRIw K96cuPTrg1I7CPSbjBhrmTWiKlI enHA7jF7rSBoiawrtv0igxlewIt utn7czzy20xH45R38hHGdd SDRmNSEaOCObJKLgbMkndf0wwQ2 wIi8+EIAdhIH5tOA1pX8xXBJhQq T5RIjyB132AjHxqFKyOlcw t6pun5saxGz8MpD7ZWEboxLnwHy bGWK2r2NqPc49A73oBWkeKDMkYW PaIKRpULZwhMraui8saR4z Ii8+ZDWhuPL4iGO5oP7aOpGmAjH 8STvxG775WeTwgCHjBjszX71lY6 JvdXA+YICoSfw3GIScwWrt LX1gtXRcAOyrGj8eBHB5QsAkNgO jWPqxX6KmHCFitkahuzlapFL5ON AaGUQvjR79De3wpYulHYAr bHMSkE2yyabat0nvinviUrPiTHA lGHv9EBs7XWRniIctKwUxBHA6Rz K4IBO8mJCliM1mcTdbhrkb vA8wI4AaKEZkiqltSg49cU3bPhV bIoJ1LJrgZwu+TVVMTEVOUywgUk JJOFFRGHDCGUdDFoU8E7Gx Mqj2DTSrhOkxPY1fxMTjZSpmKx2 xaWoshFfoQX4kXWPanqovXEJfoC 2zRJFlnHHmmEuhVT5pBSKh loter343MrEtALD1MOFjeXUrH1W sdP4uBzPcHNEhCXFpV9BygDExGB diH985HCamRvL6DKRibbRq M4GqTSRovYnzYnB9f0T8Db2aWN3 cCm0vFBy5GL89BN86dJGwm5C1fT F8Y2QyGXPhxjausdwbnIJ7 LKNkIFUpoD46vMDsHSklLs0ts3L 0l133FHRwQJZfqH44Kg6eyVscWO YdrMTTbW0wjcfjv6nesxfx SbQmRZSpKEb2IGu9XZIfuJmbGqX iKUB2DhL5MXK0wFDfnL4ogGvqxh cylT2lKbi+MzggWWVhcnM8 A1DaLbs0LQQtpTbsPU6tkLEiGOk mMi6mrZawdWcqWY8yYJXkbbqnAQ MowX4jDLBpnBXoyCenRO2w SAGksrhbc511NeVgOKS6APEdjIJ aU0MrmX4qIeEnXRTqEVDuV6MygM IfVYxbL376SMirWoA6LMYj hdCcM7DbOGOdpHaoBuZ8w2P4Tx1 OHC5YOJP3K2IoDdn9EUWbkVfpZO 3kbXUdGKbySi9qqSgujOkr OP0pUKMtnglgJYZtzN0fDYCasUC dzZeqRU5vAIIlsrpjv856ItWyAS D4NFTaiGNsW5BnpG2mFvLq BEZaOSWaN9OmlYHjDHbcY550LTh mCoW9LRSakiNpF4KxRMHivKxzPt O7d9B8Pm5MJWowH6KhK1Yd eTwvdGQ+BO73di41Q7HwQmydBar 3GUMhFFE5iHS2aD1pSAXvOUvos1 K4jZC1V8XgjrLelo2df9zp VNBwJGpvQ60djFViz0Q1RTMooGW 0SXYpyTkjNfXatC41Smd+PGNvbG nid5IfSgzka4kjr3yelJk0 MgLpVRHcsnHtdQehTSM5z5ZiSk5 8O93jEBqrKNFvREKgHGBmDDWngX cjdq6rfG4kPl4+PGNvbCB3 oTN0xF9nQrTlLaF1DRipK133LuD mxHCbMphjk3wwm8rbxZh0HcKgXW TqbnPahZkrVKA7r7UrSo93 R7LqyUpjl1ChAue2uh44lTQec2N 8qAF7R6YuIYClqxbxvFPgzEjfAJ 3dHBYgkaavYFYxdD8rCCKv R4v4EbRyDsR9WCqvN2RtnnM9VPC fpOHpIDFnqLLRkK8sqewfy9qlss gaHgVeMAQtBQr0FWq9DOTj cVspHlIyBUK5DdI2VVJ3mTNecH4 ikLutryzcgJ6wGsz+UWh7s1jbcP JeUU9xzZG0RM11QN08aQBg r0M1fGB4A5YtLZTszpaebejgxNB 7INFtWVIrlM08Ao3iiZhrAo5dKQ TfNMW7YLPakUIwY1GsgR0k PvBmNBHbQUDvH3YreKXkCNmgZ02 9MIjnDjM7DUNibvDsV9UhLFHpyX dqBuX1j8O7Ba8BQD93DQ97 BK23xCBfs6A9aSB2J3KoCCUmhtf aabgkuBP9AFEnNCEztH28Pe4pgR ddWq9qRLTbJPG3RPIbrRLm Z9ZapL7pCpVoJMCxCSCeJ8ZrlTB tEAzgE925INwrErM4FMXfbyVvH8 HrCPFghHzbNjZ1e9C5Iy4H Di40XP24UA93jYLle2O7wQU4W8E bBEWogepbswenfIV0AQXnIMAlwR 62Yq8woGftZy1qZBErEJT2 EMZbqKAxQ5NzxY2kEvTmSIMkUGZ hH0UimWEeZKkpK777CFmuNeU9ZZ DtzvJuU5XaVUJxsNxuQyT8 b2U2Zm2JNUgctke2T5UgQuqahDP +BO56GTKfGS56kCFreXGaz6smtJ f9YtUxEJEtROX4mIlsWCmo b3J (more content not included)... [facility] Consent Formson 05-19-2023 Consent Forms [id number] [facility] Progress Note - Nurseon 05-08 Progress [...] 05/19/2023 08:01 EDT] Giuliana Travis RN Normal [facility] Inpatient Patient Summaryon 05-16-2023 [place]patient [place] [address] Patient Discharge Instructions Name: MICHAEL RAMON : 1985 Patient Address: [address] [place] [address] Primary Care Provider: Name: Shelley Mc DO After you are discharged if you find you have any questions, please, call [phone] ext [phone] to speak to a nurse. Discharge Diagnosis: Prescription Information: If you have been given a prescription for narcotics, seek immediate medical attention if you have any difficulty breathing or any sudden status changes such as confusion and sleepiness. If you or anyone you know is experiencing suicidal thoughts, mental health, alcohol and/or drug addiction problems; contact the [facility] 30/09 Crisis Hotline -Text 4HAMW kr [phone]. If you received any narcotics, sedation, or [...] business decisions or sign any legal documents [facility] would like to thank you [...] for Disease Control and Prevention November 2013 [facility] MAGR Intraoperative Recordon 05-16-2023 MAGR Intraoperative Record MAGR Intra-Op Record Summary Primary Physician: SAM HERBERT MD Finalized Date/Time: 05/16/23 12:13:52 Pt. Name: MICHAEL RAMON /Sex: 1985 FEMALE Med Rec #: [id number] Physician: SAM HERBERT MD Financial #: [id number] Pt. Type: D Room/Bed: / Admit/Disch: 05/16/23 [...] RN Radloff, Leigh-Ann CSFA CST Role Performed Toll Bridge Attendant Toll Bridge Attendant Patient Ombudsperson Time In 05/16/23 12:05:00 05/16/23 12:05:00 05/16/23 12:05:00 Time Out 05/16/23 12:14:00 05/16/23 12:14:00 05/16/23 12:14:00 Procedure Medial Branch Medial Branch Medial Branch Block(Bilateral) Block(Bilateral) Block(Bilateral) Last Modified By: Freida Williamson RN, Diane RN Kokinda, Diane RN 05/16/23 12:13:44 05/16/23 12:13:44 05/16/23 12:13:44 Entry 4 Entry 5 Entry 6 Case Attendee Madelaine Moya RT Robyn Mcintosh RT (R) Ashutosh Yi GEOLOGICAL SAMPLE TESTER (R) ARRT ARRT Role Performed Medical Delivery Driver Medical Delivery Driver Scrub Personnel Time In 05/16/23 12:05:00 05/16/23 [...] 12:08:00 Participants Freida Williamson RN, Nestor Hoyt GEOLOGICAL SAMPLE TESTER, Madelaine Moya RT (R) ARRTArnaldo Jenna RT (R) ARRT, Ashutosh Yi GEOLOGICAL SAMPLE TESTER, SAM HERBERT MD Last Modified By: Freida Williamson RN 05/16/23 12:08:45 Patient Positioning MAGR Pre-Care Text: A.280 Identifies baseline musculoskeletal status Im.40 Positions the patient Im.80 Applies safety devices Entry 1 Procedure Medial Branch Body Position Prone Block(Bilateral) Lef (more content not included)... Normal [facility] MAGR Preoperative Recordon 0 05-16-2023 MAGR Preoperative Record MAGR Pre-Op Record Summary Primary Physician: SAM HERBERT MD Finalized Date/Time: 05/16/23 12:21:27 Pt. Name: MICHAEL RAMON /Sex: 1985 FEMALE Med Rec #: [id number] Physician: SAM HERBERT MD Financial #: [id number] Pt. Type: D Room/Bed: / Admit/Disch: 05/16/23 11:18:32 - 05/16/23 12:20:00 Institution: Pre-Op Case Times MAGR Pre-Care Text: [...] Signed By: Mya Kenny RN 05/16/23 12:21 Normal [facility] POCT Glucose Levelon 024 Glucose [Mass/Vol] 78 mg/dL Normal 74-118 [facility] Comment on above: Performed By: #### 4 [id number] ####[facility] (DEFAULT)[address] [place] [address] Patient Handouton 05-16-2023 Patient Handout Normal [facility] Coding Summaryon 05-12-2023 Coding Summary HTMLBase 64 ZxdliizkBHd7nZx+PGhlYWQ+PE1 BKDZfU73uiJSerJ0kE4QBNBgNUc gcATCWSImWIpJdfzByRT9kaVDaD XJu IC8+WQ6zRLXoAqfxyHFgr5A4cAE 5A35oil4iIZyadHZ0UTFeDcQlju wnx7aazQm1HQhoNfdnWiPi LASkuV29BBE0kN09Cu51xUEkaNC qc4ghgFv3KpVwDYRyDAH6aYkmDH xrr1CmITSrT99tuQQnc9J1 SJJurHcxsCKmMmYivWK8fH8oIPe ahtlbx2ryuvzzSss1ae48nTMuj4 S6dKT9G0UphqG7MROafKFt KqltwFXCeR9aaiylq9vcxbqiJpX bOVOoXZt7SKx2EDLtrEogUjTiKG 50QGV3TVVdgeQhQ7SmPHPd xVvsWvF8x1U6Qb7DL9HUWhnyE0H NTUFSWTwvdGQ+LS04ol30R1DcUp clTsb5TGHwKUJ9vWU5vF7x OAHiIOdha5Y1sDH8H1RzduTjcn1 vi2ujRCYvGNltH79gpUHxa9F2WV EvsVC8BSTtxWjxBtEpnX53 Oyc+BXXmjUqrc0UiGpzgk2wgx9i lfXq6WfxjQQKbifJmsAcnFYI5k8 LhMi1aMXSwbND5dTL3vY8n UkPkFkV7EIjzG563AbVpdFHdCdh yD10wQ4EliKO+PDTtRfa5MZMfcR ydRC0yL9WzSELhtadtwGPb aQovHN4kCLJcposjTPXhuN5wBMF nG0d9CbCaAeU4UIulQ7DqLUAuox zeKv34gL7cEkUnNzL2IHmu X7AvfeJ9XLKgnRPfTCcfJNO7V77 pz3A2FADeNKJgUFT8yEE6pI2wqC lnbjogbGVmdDsgdmVydGlj UTwoEYbjG858ADNjqIsrQfHoUHo uZyBEYXRlOiAgMDMvMDQvMjAyND wvdGQ+NYHkBYF9zAxyLHSm wTZxHDvjKe9prLuxuBmvCW1pDHV ohrnaAFChfC3fXVMznGLjdPgnVO 0fQYZbsqvch321OqZkJHZ1 AUXvhVFsA0TjmM5nYsYgUSTePCB iP6FnbCFdXJopC944PTusLsO6CD ZwsrEuI9RdOCIxyPzaIyD1 v6W2Fh0Ub9YyayxkJ3PuaRRnUjO hOxvpSGq7R9AeUsyssNW+PC90YW UkGG96FBh5UZM0lGluQSsr JKIbQ0NecL2qOeZsBEPiVKTkDeq +PHRhYmxlIHdpZHRoPScxMDAlJy MfdVyhLF0lLk4mRNWzQDAr hOgfrOCjGhWdm9pmBYGoLOviUF2 ziSwdC5AlwRK9SXIpt9m9Ij25S6 3eY5XmvTT+XEXpfZD7mFJ8 nS0xVtVyUrM7LRxxM533ByOxmHA hCmyne4ymd3jfhEs8VcK7ZQQgny HijIzeBNX6u2WpYy57Q46d IHdpZHRoPSIxNSUiIHZhbGlnbj0 bjW9lCy6+QXYwrYP3nDE8cV6yBa EzJnC9NHlfO075NyJjqYSs Qtzpl5qdm8ehqDk4KlGpQBMzmxW iaAsrNEG7l2CxJw31H8QoxFqie2 YnKjv5lm27dASha0E9xQV8 Z9YkOPAjaiexdXKcmZofBK4aQTR uaplcQULdnC5oAFPbW8r4IcIiAq S6SLuvH6HzobD8GTVryAVi EQRbqNEOhI9afnkjv8pxymzwFzE mADLvPIe1SRi4PKOalGcaWzTuGA X3IwE5HLB4nOTsrK6ttAfj hwbukB6sHzl+SUD6rGUdfRGCWK4 lOjwvdGQ+PDTxMAD9cGqbFNczMY KwmD6yJYQrB9w4KjKwGlZ2 EYtlR8GftkI8GHHdjJMwXURtfDR MjH5pucqpk5shnodnDuFuZGIuMA w3XUk5VILdlXkrNtCbKRC5 PuI6VQJ6gBTjuE3dvGmvrqfkfP7 wOyc+LqeqzAflSQW4NVp9C9QgKb t6CNPnzOrcPR1vbATjWGzr Uq8lbQakjMcvMH4iRQTjwdxoj69 9EgAuc0ymMBQzrLSsXEpaADO0Z0 3lm2J2DUXvDHGoWVP9iTJ9 dD3atOagxufarVDfnAxvqdCcwRb iBWywSGeiA735AJAmsNlxDvSwJQ e5U8TaXgf7PIOseJnwQM8x rUEaBRunTh8afGvpnBfyOA9lCRG lyubpc274YmAdm0ecEOOtnGZyWS mcRUB0K92bp6N2NPHtBMGo ZIB7aGR3dC2ltJjvdpjjkEFymLc qxjHxpEbsXGwpGGozC679VABroK rfKnZogJp8D1SnEqj8LTMb sHatNP1waEFpITlmNq3rtKxlaOj zRY6mPZFymqgxy787TlGtj6ljXN MtcWTaCGmjWCK7F83kc2T1 PSGdPSFoXUQ5jDY5yT5bmChtsbl gbGVmdDsgdmVydGljYWwtYWxpZ2 46IHRvcDsnPlBhdGllbnQg PEevVJf2S2CaThjfeIX+QM01PQD bGU23zNGzeLXxe4kawBa1EtRaTB DlZXJ5pVlcLWmtl7LuORTk O98siRErk3I0KZMfyLnpoQXhVhU qaVV3fD4oNAtlqfwkp5mhbdblJd ifw9cpss16tH83O29qYPou IZZsFXRlOKUdWIGsbSaikn8nbO0 wIi8+UAYetEM2bIW7gQ1oOXKgTo H4NKgjU124AtSmqSAwGarx a0dtp4onyBh2TaP9IZYxhvTmiUi zZWT0j8RkMp72Q65iWKiwNIZqHR QiSHNgVVWlnXypax8sbT9j Ii8+UXVonRC2qLI2jO5wQzCsExM 1CNrsP124RxRfjBDeUpkkJ97xR3 JvdXA+MRLqWwg5DUVcrVab JG8yjMCvCTakZm2mSNE7ZcQeSgE wSXxrG3RlEMCvqsyrgnywjUS1QJ PiLVYhwI95Rd8vmXimLSIl uYHDiL0nogocs2twhjkdVhDrKBL gBLc1VLe4XLYlvUffNiDcKJW0Ex D2VDW6tUXeqE3vvTongkab sU0zO0LoMFKvjncgAd11qQ4eTpK uQsB4VEupHoh+TVVMTEVOUywgUk IPNNZPCTMPRSmWHbF9G1Vd Wal7OUJinQznCG9ggLUaYHsvNa2 etDafcRyuAC9jDKWkyfroQQBhyL 0zSMVyxQAraEufGF0vGCUq xejgt919LmBmCBA7TUKyfXItZ2V olK9pJkYxEIFdXFIkS8AurOBbXK gqW947TAecLwU7COAbbdAc J5FyAWXhzDseFhA1a7W0Wo8wDZ7 pIm5kXZo0RH67SW53sMOha1L3vE D8W8FuWNEfqzczgorryTN3 FUEuUKZlxE75uYMgGXncOf4io6R 8n509BIQyHCMapY55Rm6qgPxwXK BeaJSPyT0wcimeo1vbqyel WnZjBQQyYAm2PUu5RTJsgTguXkP oRSO9CsI2IJW5aRDneW6zdGpsrs pipW1dXrx+MzggWWVhcnM8 E6GqOyj3IHUukUimMU7fjRDuVAq bMy8aqLzmrBkgUB8tVEAxpvluXH ZgqU4vLEMmaYHfrMwhMR1y MFShfjgsm361CgZvWNZ0HJZoyRB lA1QzbG9nUyJwBDFaDFLzE0VpzY LkOVwyO828YUhwGxD6OLJn krNrX6LwLFPgbGdwNgU9r8N3Ue4 ZDQ0RIZM8Q2MjYpk1AABluYpeFS 3ogMAfHVsnPl8waRdevTse CZ0pLYDlkfdjVTVojW0jGMIktPH ibUqxZZ3uSAMloejgn925JkSaTL R1CQPsaKDbE9JirM8yZaBp NAPdBTSpJ5VffORtTBmiD511LCt aGpI7HWAyrhFoQ4ZwMVQxvXueEi C8f9V0Lg9NVQhzlIF+PC90 rh74K1PfTbfwUkn2MDVxBWH5lDW 6mY0bDBDmEYqsb5I5kEH1Q1Vhmm Iovh8fx2tvNOPqBRysW17x dFMny5G0ZZNncWS2WXVygCkkAzB ysM27Guv+CNSsfOlqc2HoXmtco5 tzg0riiJx3KdDxAHEpxzGk oFqrUGW3p7CuXa23X89oDUrpCDW eYUGtMFYtGGSxcWicbk2hhX6yDm 8+RKWhbBM0bCF9vS9oBjNw GeE1XJqeR910CtDtoLBmOmovr6r dd0awgEk4YuIjQZNpswHojXbcKD V9n9AfCy59D1UqkGbcw3Um Rib0wz74vXIex7N6uQE4Z0DrBXD vupxrkLHzyCwtFP4uNNWyxavrNE FqyK4mJJZkO1m3KuJwTzG6 BJjnJ4DcbiM0ZWDtzDNkFTMgdTL PnC4delaqu4byvsipAjPuWUPpLW m9CNi1JWOscFxjIwDhKEV8 NaY8XZG0bMSpjD7luUqhyyqjuA3 wOyc+YPh1a7zbaHOgTW6rnGA8XY 82UN97pIKql2B0aPI5B5Rs GNDqtrhsujquiXH2RBIbXIPpnN9 4Jo2odIeaIu4cSOMhQMG0HWXbxX PfE6VgvK3fOlBtBFKyFORm G2XwzMGsCMwgU897ECtlYqM0YTO mmzKrG5NqHLHqdTflXwS3k5F7Sy 4TPJ18NA62LW56lMJmr9I9 cIA5M4AeTXJuvgaphabytHL7XAP qNMIimG72Pa9leVgcFz1fOTXwYD J3WCHwvCRiC8YjnV0rLrFi HWYeMREdK7WxcNPnMTaeD030RWq yWnF2GVGhryVmQ2OyNGRqoLqjDo M0k2F9Ud6TFv62ST27NJ06 rIJfz1E2mPF3H6NfBZVlnalzaex frSL3LXSiMOOgzY36Is5nhTciPe 6zAJFfOYT2CTBlcFYiR6Ma wC0mUyMcCNDnOQNvX0XksAByEKa bQ461SOlpHvS1LEBqvxJjG7PpCS AfoJxaXbY1e8T9Nc3LVCag nqa0E0FeCnwocRI+DP04BECyKQ7 9aEQmaVTwk3bkxMt0CyQpKXYvRQ C7hWvrTIhxw2KeFCNsX72a bGF (more content not included)... [facility] Progress Note - Provideron 0 05-09-2023 Progress Note - Provider [id number] [facility] Alanine aminotransferase [En zymatic activity/volume] in Serum or PlasmaOrdered By: Imad Asaad on 05-01-2023 ALT [Catalytic activity/Vol] 19 U/L 7-52 [facility] Albumin [Mass/volume] in Ser um or Plasma by Bromocresol green (BCG) dye binding methoOrdered By: Imad Asaad on 05-01-2023 Albumin BCG dye [Mass/Vol] 3.8 g/dL 3.5-5.7 [facility] Alkaline phosphatase [Enzyma tic activity/volume] in Serum or PlasmaOrdered By: Imad Asaad on 05-01-2023 ALP [Catalytic activity/Vol] 92 U/L 34-104 [facility] Aspartate aminotransferase [ Enzymatic activity/volume] in Serum or PlasmaOrdered By: Imad Asaad on 05-01-2023 AST [Catalytic activity/Vol] 15 U/L 13-39 [facility] Basophils Auto (Bld) [#/Vol] Ordered By: Imad Asaad on 05-01-2023 Basophils (Bld) [#/Vol] 0.0 10*3/uL 0.0-0.2 [facility] Basophils/100 WBC Auto (Bld) Ordered By: Imad Asaad on 05-01-2023 Basophils/100 WBC (Bld) 0.2 % . [facility] Bilirubin.total [Mass/volume ] in Serum or PlasmaOrdered By: Imad Asaad on 05-01-2023 Bilirubin [Mass/Vol] 0.4 mg/dL 0.3-1.0 [facility] Calcium [Mass/volume] in Ser um or PlasmaOrdered By: Imad Asaad on 05-01-2023 Calcium [Mass/Vol] 8.8 mg/dL 8.6-10.3 [facility] Carbon dioxide, total [Moles /volume] in Serum or PlasmaOrdered By: Imad Asaad on 05-01-2023 CO2 [Moles/Vol] 28.7 mmol/L 21.0-31.0 [facility] Chloride [Moles/volume] in S jayden or PlasmaOrdered By: Job Martinez on 05-01-2023 Chloride [Moles/Vol] 104 mmol/L 98-107 [facility] Complete Blood Count Auto Di ffon 05-01-2023 Basophils (Bld) [#/Vol] 0.0 10*3/uL Normal 0.0-0.2 [facility] Comment on above: Order Comment: Reaso n for Exam Hepatic steatosis Result Comment: PERF ORMED BY: [facility] [address] [place] [address] PATHOLOGIST GYN PHYSICIAN SINCERE GREENWOOD M.D. Performed By: #### G LULS #### Point of Care testing , Basophils/100 WBC (Bld) 0.2 % Normal . [facility] Comment on above: Order Comment: Reaso n for Exam Hepatic steatosis Performed By: #### G LULS #### Point of Care testing , Eosinophils (Bld) [#/Vol] 0.0 10*3/uL Normal 0.0-0.45 [facility] Comment on above: Order Comment: Reaso n for Exam Hepatic steatosis Performed By: #### G LULS #### Point of Care testing , Eosinophils/100 WBC (Bld) 0.3 % Normal . [facility] Comment on above: Order Comment: Reaso n for Exam Hepatic steatosis Performed By: #### G LULS #### Point of Care testing , Erythrocyte distribution width (RBC) [Ratio] 14.7 % Normal 11.9-15.3 [facility] Comment on above: Order Comment: Reaso n for Exam Hepatic steatosis Performed By: #### G LULS #### Point of Care testing , Hematocrit (Bld) [Volume fraction] 36.9 % Normal 34.0-46.4 [facility] Comment on above: Order Comment: Reaso n for Exam Hepatic steatosis Performed By: #### G LULS #### Point of Care testing , Hemoglobin (Bld) [Mass/Vol] 12.2 g/dL Normal 11.8-15.4 [facility] Comment on above: Order Comment: Reaso n for Exam Hepatic steatosis Performed By: #### G LULS #### Point of Care testing , Lymphocytes (Bld) [#/Vol] 1.7 10*3/uL Normal 1.00-4.8 [facility] Comment on above: Order Comment: Reaso n for Exam Hepatic steatosis Performed By: #### G LULS #### Point of Care testing , Lymphocytes/100 WBC (Bld) 19.3 % Normal . [facility] Comment on above: Order Comment: Reaso n for Exam Hepatic steatosis Performed By: #### G LULS #### Point of Care testing , MCH (RBC) [Entitic mass] 27.2 pg Normal 24.7-34.3 [facility] Comment on above: Order Comment: Reaso n for Exam Hepatic steatosis Performed By: #### G LULS #### Point of Care testing , MCV (RBC) [Entitic vol] 82.5 fL Normal 80-100 [facility] Comment on above: Order Comment: Reaso n for Exam Hepatic steatosis Performed By: #### G LULS #### Point of Care testing , Mean Corpuscular HGB Conc 33.0 g/dL Normal 32.0-35.0 [facility] Comment on above: Order Comment: Reaso n for Exam Hepatic steatosis Performed By: #### G LULS #### Point of Care testing , Monocytes (Bld) [#/Vol] 0.4 10*3/uL Normal 0.0-0.8 [facility] Comment on above: Order Comment: Reaso n for Exam Hepatic steatosis Performed By: #### G LULS #### Point of Care testing , Monocytes/100 WBC (Bld) 4.4 % Normal . [facility] Comment on above: Order Comment: Reaso n for Exam Hepatic steatosis Performed By: #### G LULS #### Point of Care testing , Neutrophils (Bld) [#/Vol] 6.8 10*3/uL Normal 1.8-7.7 [facility] Comment on above: Order Comment: Reaso n for Exam Hepatic steatosis Performed By: #### G LULS #### Point of Care testing , Neutrophils/100 WBC (Bld) 75.8 % Normal . [facility] Comment on above: Order Comment: Reaso n for Exam Hepatic steatosis Performed By: #### G LULS #### Point of Care testing , NRBC% 0.1 /100{WBC} Normal 0-0.5 [facility] Comment on above: Order Comment: Reaso n for Exam Hepatic steatosis Performed By: #### G LULS #### Point of Care testing , Platelet mean volume (Bld) [Entitic vol] 8.9 fL Normal 6.3-10.7 [facility] Comment on above: Order Comment: Reaso n for Exam Hepatic steatosis Performed By: #### G LULS #### Point of Care testing , Platelets (Bld) [#/Vol] 260 10*3/uL Normal 150-450 [facility] Comment on above: Order Comment: Reaso n for Exam Hepatic steatosis Performed By: #### G LULS #### Point of Care testing , RBC (Bld) [#/Vol] 4.47 10*6/uL Normal 3.60-5.00 [facility] Comment on above: Order Comment: Reaso n for Exam Hepatic steatosis Performed By: #### G LULS #### Point of Care testing , WBC (Bld) [#/Vol] 9.0 10*3/uL Normal 3.8-11.6 [facility] Comment on above: Order Comment: Reaso n for Exam Hepatic steatosis Performed By: #### G LULS #### Point of Care testing , Comprehensive Metabolic Pane vladimir 05-01-2023 Albumin [Mass/Vol] 3.8 g/dL Normal 3.5-5.7 [facility] Comment on above: Order Comment: Reaso n for Exam Hepatic steatosis Performed By: #### G LULS #### Point of Care testing , Albumin/Globulin [Mass ratio] 1.2 {ratio} Normal [facility] Comment on above: Order Comment: Reaso n for Exam Hepatic steatosis Performed By: #### G LULS #### Point of Care testing , ALP [Catalytic activity/Vol] 92 U/L Normal 34-104 [facility] Comment on above: Order Comment: Reaso n for Exam Hepatic steatosis Result Comment: PERF ORMED BY: [facility] [place] [address] [place] [address] PATHOLOGIST GYN PHYSICIAN SINCERE GREENWOOD M.D. Performed By: #### G LULS #### Point of Care testing , ALT [Catalytic activity/Vol] 19 U/L Normal 7-52 [facility] Comment on above: Order Comment: Reaso n for Exam Hepatic steatosis Performed By: #### G LULS #### Point of Care testing , Anion gap [Moles/Vol] 10.6 mmol/L Normal 6.0-15.0 [facility] Comment on above: Order Comment: Reaso n for Exam Hepatic steatosis Performed By: #### G LULS #### Point of Care testing , AST [Catalytic activity/Vol] 15 U/L Normal 13-39 [facility] Comment on above: Order Comment: Reaso n for Exam Hepatic steatosis Performed By: #### G LULS #### Point of Care testing , Bilirubin [Mass/Vol] 0.4 mg/dL Normal 0.3-1.0 [facility] Comment on above: Order Comment: Reaso n for Exam Hepatic steatosis Performed By: #### G LULS #### Point of Care testing , Calcium [Mass/Vol] 8.8 mg/dL Normal 8.6-10.3 [facility] Comment on above: Order Comment: Reaso n for Exam Hepatic steatosis Performed By: #### G LULS #### Point of Care testing , Chloride [Moles/Vol] 104 mmol/L Normal 98-107 [facility] Comment on above: Order Comment: Reaso n for Exam Hepatic steatosis Performed By: #### G LULS #### Point of Care testing , CO2 [Moles/Vol] 28.7 mmol/L Normal 21.0-31.0 [facility] Comment on above: Order Comment: Reaso n for Exam Hepatic steatosis Performed By: #### G LULS #### Point of Care testing , Creatinine [Mass/Vol] 0.72 mg/dL Normal 0.60-1.20 [facility] Comment on above: Order Comment: Reaso n for Exam Hepatic steatosis Performed By: #### G LULS #### Point of Care testing , GFR/1.73 sq M.predicted MDRD (S/P/Bld) [Vol rate/Area] mL/min/{1.73_m2} Normal [facility] Comment on above: Order Comment: Reaso n for Exam Hepatic steatosis Performed By: #### G LULS #### Point of Care testing , Globulin (S) [Mass/Vol] 3.3 g/dL Normal [facility] Comment on above: Order Comment: Reaso n for Exam Hepatic steatosis Performed By: #### G LULS #### Point of Care testing , Glucose [Mass/Vol] 81 mg/dL Normal 70-100 [facility] Comment on above: Order Comment: Reaso n for Exam Hepatic steatosis Result Comment: [place] Glucose Reference Range is dependent on time and content of last meal. Glucose of more than 200 mg/dL in a nonstressed, ambulatory subject supports the diagnosis of Diabetes Mellitus. ADA recommended reference range Performed By: #### G LULS #### Point of Care testing , Potassium [Moles/Vol] 4.3 mmol/L Normal 3.5-5.1 [facility] Comment on above: Order Comment: Reaso n for Exam Hepatic steatosis Performed By: #### G LULS #### Point of Care testing , Protein [Mass/Vol] 7.1 g/dL Normal 6.4-8.9 [facility] Comment on above: Order Comment: Reaso n for Exam Hepatic steatosis Performed By: #### G LULS #### Point of Care testing , Sodium [Moles/Vol] 139 mmol/L Normal 136-145 [facility] Comment on above: Order Comment: Reaso n for Exam Hepatic steatosis Performed By: #### G LULS #### Point of Care testing , Urea nitrogen [Mass/Vol] 17 mg/dL Normal 7-25 [facility] Comment on above: Order Comment: Reaso n for Exam Hepatic steatosis Performed By: #### G LULS #### Point of Care testing , Creatinine [Mass/volume] in Serum or PlasmaOrdered By: Imad Asaad on 05-01-2023 Creatinine [Mass/Vol] 0.72 mg/dL 0.60-1.20 [facility] Eosinophils Auto (Bld) [#/Vo l]Ordered By: Imad Asaad on 05-01-2023 Eosinophils (Bld) [#/Vol] 0.0 10*3/uL 0.0-0.45 [facility] Eosinophils/100 WBC Auto (Bl d)Ordered By: Imad Asaad on 05-01-2023 Eosinophils/100 WBC (Bld) 0.3 % . [facility] Erythrocyte distribution wid th Auto (RBC) [Ratio]Ordered By: [facility] on 05-01-2023 Erythrocyte distribution width (RBC) [Ratio] 14.7 % 11.9-15.3 [facility] Globulin Calc (S) [Mass/Vol] Ordered By: [facility] on 05-01-2023 Globulin (S) [Mass/Vol] 3.3 g/dL [facility] Glucose [Mass/volume] in Ser um or PlasmaOrdered By: [facility] on 05-01-2023 Glucose [Mass/Vol] 81 mg/dL 70-100 [facility] Comment on above: ADA recommended refe rence rangeRandom Glucose Reference Range is dependent on time and content of last meal. Glucose of more than 200 mg/dL in a nonstressed, ambulatory subject supports the diagnosis of Diabetes Mellitus. Hematocrit Auto (Bld) [Volum e fraction]Ordered By: [facility] on 05-01-2023 Hematocrit (Bld) [Volume fraction] 36.9 % 34.0-46.4 [facility] Hemoglobin [Mass/volume] in BloodOrdered By: [facility] on 05-01-2023 Hemoglobin (Bld) [Mass/Vol] 12.2 g/dL 11.8-15.4 [facility] INR in Platelet poor plasma by Coagulation assayOrdered By: [facility] on 05-01-2023 INR Coag (PPP) [Relative time] 1.0 {INR} [facility] Comment on above: INR Therapeutic Rang e [...] RBC Auto (Bld) [#/Vol] 9.0 10*3/uL 3.8-11.6 [facility] Lymphocytes Auto (Bld) [#/Vo l]Ordered By: Imad Asaad on 05-01-2023 Lymphocytes (Bld) [#/Vol] 1.7 10*3/uL 1.00-4.8 [facility] Lymphocytes/100 WBC Auto (Bl d)Ordered By: Imad Asaad on 05-01-2023 Lymphocytes/100 WBC (Bld) 19.3 % . [facility] MCH Auto (RBC) [Entitic mass ]Ordered By: Imad Asaad on 05-01-2023 MCH (RBC) [Entitic mass] 27.2 pg 24.7-34.3 [facility] MCHC Auto (RBC) [Mass/Vol]Or dered By: Imad Asaad on 05-01-2023 MCHC (RBC) [Mass/Vol] 33.0 g/dL 32.0-35.0 [facility] MCV Auto (RBC) [Entitic vol] Ordered By: Imad Asaad on 05-01-2023 MCV (RBC) [Entitic vol] 82.5 fL 80-100 [facility] Monocytes Auto (Bld) [#/Vol] Ordered By: Imad Asaad on 05-01-2023 Monocytes (Bld) [#/Vol] 0.4 10*3/uL 0.0-0.8 [facility] Monocytes/100 WBC Auto (Bld) Ordered By: Imad Asaad on 05-01-2023 Monocytes/100 WBC (Bld) 4.4 % . [facility] Neutrophils Auto (Bld) [#/Vo l]Ordered By: Imad Asaad on 05-01-2023 Neutrophils (Bld) [#/Vol] 6.8 10*3/uL 1.8-7.7 [facility] Neutrophils/100 WBC Auto (Bl d)Ordered By: Imad Asaad on 05-01-2023 Neutrophils/100 WBC (Bld) 75.8 % . [facility] No Panel InformationOrdered By: Imad Asaad on 05-01-2023 Estimated GFR (CKD-EPI) > 60.0 mL/Min [facility] Creatinine Clearance (Chem N/A [facility] Nucleated erythrocytes [Pres ence] in Blood by Automated countOrdered By: Imad Asaad on 05-01-2023 Nucleated RBC Auto Ql (Bld) 0.1 /100{WBC} 0-0.5 [facility] Platelet mean volume Auto (B ld) [Entitic vol]Ordered By: Imad Asaad on 05-01-2023 Platelet mean volume (Bld) [Entitic vol] 8.9 fL 6.3-10.7 [facility] Platelets Auto (Bld) [#/Vol] Ordered By: Imad Asaad on 05-01-2023 Platelets (Bld) [#/Vol] 260 10*3/uL 150-450 [facility] Potassium [Moles/volume] in Serum or PlasmaOrdered By: Imad Asaad on 05-01-2023 Potassium [Moles/Vol] 4.3 mmol/L 3.5-5.1 [facility] Protein [Mass/volume] in Ser um or PlasmaOrdered By: Imad Asaad on 05-01-2023 Protein [Mass/Vol] 7.1 g/dL 6.4-8.9 [facility] Prothrombin Time INRon 05-01 INR Coag (PPP) [Relative time] 1.0 {INR} Normal [facility] Comment on above: Order Comment: Reaso n [...] heart valves: 3 - 4.5 PERFORMED BY: [address] [address] PATHOLOGIST GYN PHYSICIAN SINCERE GREENWOOD M.D. Performed By: #### G LULS #### Point of Care testing , PT Coag (PPP) [Time] 12.0 s Normal 9.0-12.9 [facility] Comment on above: Order Comment: Reaso n for Exam Hepatic steatosis Result Comment: A he matocrit value greater than 55% may lead to inaccurate results in coagulation testing. Patients having hematocrit values >55% require a special collection tube for coagulation studies. Please contact the laboratory at [phone] for redraw instructions. Performed By: #### G LULS #### Point of Care testing , Prothrombin time (PT)Ordered By: Job Martinez on 05-01-2023 PT Coag (PPP) [Time] 12.0 s 9.0-12.9 [facility] Comment on above: A hematocrit value g reater than 55% may lead to inaccurate results in coagulation testing. Patients having hematocrit values >55% require a special collection tube for coagulation studies. Please contact the laboratory at [phone] for redraw instructions. RBC Auto (Bld) [#/Vol]Ordere d By: Job Martinez on 05-01-2023 RBC (Bld) [#/Vol] 4.47 10*6/uL 3.60-5.00 [facility] Serum or plasma albumin/glob ulin mass ratioOrdered By: Imad Asaad on 05-01-2023 Albumin/Globulin [Mass ratio] 1.2 {ratio} [facility] Serum or plasma anion gap de terminationOrdered By: Imad Asaad on 05-01-2023 Anion gap [Moles/Vol] 10.6 mmol/L 6.0-15.0 [facility] Sodium [Moles/volume] in Ser um or PlasmaOrdered By: Imad Asaad on 05-01-2023 Sodium [Moles/Vol] 139 mmol/L 136-145 [facility] US liveron 05-01-2023 liver [facility] [address] [address] Ultrasound Report Signed Patient: Michael Ramon MR#: [id number] : 1985 Acct:[id number] Age/Sex: 38 / F ADM Date: 05/01/23 Loc: [facility] Room: Type: [facility] Attending Dr: Job Martinez MD [...] Magaly Mcdonough M.D.05/01/2023 1:11 PM Dictation Location: [place] [address] [facility] Transcribed By: SAEID 05/01/23 1311 Dictated By: Magaly Mcdonough MD 05/01/23 1306 Signed By: 05/01/23 1311 Normal [facility] Urea nitrogen [Mass/volume] in Serum or PlasmaOrdered By: Job Martinez on 05-01-2023 Urea nitrogen [Mass/Vol] 17 mg/dL 7-25 [facility] WBC Auto (Bld) [#/Vol]Ordere d By: Job Martinez on 05-01-2023 WBC (Bld) [#/Vol] 9.0 10*3/uL 3.8-11.6 [facility] Coding Summaryon 04-29-2023 Coding Summary HTMLBase 64 QcmwvpcbKTj8oCw+PGhlYWQ+PE1 JVHJfX49fuGFhzR2dO4WYZWtSAo hzHKXROAlEIiVzdpGmYU8vsDScZ XJu IC8+YQ8nTPJdYbyvfDFzw5P3jRF 7O97rqv5bBKjlxWW2XVSpTvMqxb fva4dazNu1VQrnYftqZwGr NNEkxB46ABY8aU83Hv35jKOgjRW ei2mioEz9KdTvZTJkOEJ8vYtvLZ rjs9YlTSFnU16pfVMqh3R5 WBDvfHtyaYXaSoFdoUM8rK4iLTd euujte6qhpzvtGtb0wm17sZFrp1 K3cTL7P0JbykZ0BAXvkCCt RkfmkGWXyD0vynueb6wbqkctDnB gTJEgSTm1WXx4JYEjdDybGcRzTS 42LEV1ZAUfglGyV4SrGHDk oXufViH7e6Z5Sf6KA0DSDshhP4X NTUFSWTwvdGQ+TF33jf05F2TgIs vtRbc2IPViELX6hTF8mW0d JSLcJBchw2M1zSU9K3DwarVlay8 pd1osUEOoAQeuQ19njYSuo4C8IJ MceTN4BURrnZakLkDtsA85 Oyc+AVBmmXurt6DsNkpul3sda1l ueWb1YkczANOixmGbaJmhQGH2m1 PeHc0vPSLumBU9zZK7lH7y BdFdOkZ8SEmlW459OaAzbMDnAcu nJ40mM7HioKY+CQSwTgc9QKOuqO qvTK4nZ2CpYJZcoeozlFCl oKpxFG9oDDAzjylgAVYliV1oFWM zS6u8PhEkZoP5UCytE7PjXFKxnw njDq38rT6mInZnDtF2HPev F3MtbsP9OAQjtXTuANwsIET1G54 gl6J7GDEsAZBwPFV1fFQ5wM0yiG lnbjogbGVmdDsgdmVydGlj MEewCRchE762MTWdvKozWpInMJq uZyBEYXRlOiAgMDIvMjAvMjAyND wvdGQ+AFUzATT5aQasCKFd gXIeNWanUj6ikMfopVwxCV0sGNJ zztvkXZRwaP0tKLOupZLiqRphDQ 7eTQOtpcvso144MfIeGED2 OTJxwOTtR8BkmL3eOgPaTGUaXOD sB9ZclCEwEYgmV951SXwtKwT6CX KtklIbC1IyEPQrgHjpZbW6 b7O5Dz4Yu2WszaezO0WgzMKpIqG lYdeoVUh5H1ZaTrvpwGR+PC90YW AeRP49HYd3HPE2wBcaKCjw XKSoP3SgmD1oUlYtHLJvFDQnItq +PHRhYmxlIHdpZHRoPScxMDAlJy ZapFsiIQ7kHe2kTPHfETHx lIvibKUfSoRqp7dhSKIwWSpfVV8 ngGahV1FdpJG2QIYha7s6Jh60Y9 4yU7KseIZ+IWNggYB1uVB8 iX8pKzIwEjN2TIxvW202JtNzjAQ gLepnz1dlb9qdbPq3GtA4TXPpnx IpvMqpYDU9c1QcTy72E60e IHdpZHRoPSIxNSUiIHZhbGlnbj0 fpX7pDr8+AKGioWL2vFA5iY6uNi UhMzB0VFrpS058JbWkbDMn Iqvow2wpr5sbxMx9IfSrCEQfysG gfBdxAJL5u5ZxVr98A9XtuWjeh0 RyJol8fl71jRXsk3X0vSH3 T0DmZMRiikcjfVBmlPihOG1iIFJ xlapmZOIujR7wLDKmF8x7GgFuHx F4PKabJ5XanaE8QYHejWVq LFUiaKJYyK2cbypam5nitcmfZuU iQQOaMRe2EJa0KJHewXztHrEqEV S4LaS8VFW0qGScxO3uuRji uxsbrU6sCus+MRH5aKLlhOKMZW7 lOjwvdGQ+DSEcNNG7uJjrWMmvMF KxwT9qIXCvR2r3WzJlSxU9 VIrkW5EfrpZ4ONKnxMEsYUHzcPE IjZ4xhefnr6rygosoIuTyPXHlIV r7QYj4OOMvoGlcEcFoZLB3 KvR1WDO8jDSifC9mlNxiqlnldB2 wOyc+UcpnnRimVKD2QMn6H1XwVz d1YWTthCeeQD1aeVOlTHfc Mw7scMxbtCwgJK2gMREiqyozv41 1DbRfa1qmGURnfFLtKIwtFJN6R1 6go1K9GPVhOSPbRZW4fYK9 uX4rxLhivjapmRIsvOnfywGthSp aKUyhSJcoI425FOJlbHgrZrToTR w4O4OhRre0RKTrcSpbEG8a rCPsMDfqUa2bmQyswPxjWH9uKYB jtuiii423VmUau8ejYOPsgUVbTT lmKDF5S45gu3E2MTIxWZXy XBH1gNC9qP9gyEtzzlvsrTElhXi kxdAtgWjqCDpdWWtpU899MLVmzA wlGhWhiBx2N0TyCsu1ZEXf sGgaHL5gnWLmEJkzEm6huOlatUx aHV3gHWWdfemps304NlEhc5nbFM FotDRbKYstOGK6B30dj6X9 XDPrXSQyVMR6eGK3aB1qeDovboc gbGVmdDsgdmVydGljYWwtYWxpZ2 46IHRvcDsnPlBhdGllbnQg WPvbQRm9P1BmFceaiWH+YO08OIT zBL14sVPstPPrf1fwkTm0QiMiIQ ZaRMD7vYpnZCufo1VhQBKg O16siTZfh1Y6WNZzqLdjcVEsFaY foYH7dX0bDUhtwasjr5bexcuqGy xdj8mfcp89wU44X57pASqo CFRxFXVuKLYcVKKabKtqxj2ruI9 wIi8+DIUzyYL9tNM6vV8lAQMmAq P8UFckH671QtEjsHPbBqff b6slt8vhmBb5QpI0HWUcgoAcrQm fHAD8w3TsOe79J82pGVvaHKJpKE UcKIIhBSAcsAowlh7gzM6n Ii8+UOWjaRC9yFM3rR6wEeMgJlF 9IFszD981BnTwcLXuYnbfZ87uI0 JvdXA+YUKqYmz5GLKosIee QF8ikXPuHBmjXe4nHRW7KjZoUhO oXTnbY3OvBBAyhbkigukegDH9BT IyTPYvrP32Oi4vkYsxPXTn fORDtV0ytehzo2uiclrlDtDqUYC fMUe2WOb3CEZocHgdRcLmRFC8Cq A9GWH9vPWzoD0rpOhcpxna wG1sJ0NgOFNnwtmgGo05cP6oJdZ eUvB5APqvWai+TVVMTEVOUywgUk CFKRHBSTHOTKqPKsB1Y0Dt Qkt2SRMrqVigYW1joCDyZKjeWg4 ojRbgqDkeTY4cBAKureeaDHCohH 7vQSNnyVOrmZtdSB4dHRXf puewz329WiKeUXU4EBBfjUFrO7Q tuK2kBpQmNUKeCSVpE0TxrIDhTB ioH913HBiiWxX8VKVrlaFg J9EdHNYldBotYqL8e3D8It9fLY8 iYq9nTId1MR62UH22lHCzz2W0mJ S5J1FiDHZdetzgcsmqeIT3 UDEsKCTorB44yNYjNKiePs5cf5Z 0g376DKYrLHMoeZ36Rl7mrNjrUD PosOPLuG0vxxblb2yfysgi PrCcRFLsZWr2MFg8BSIqpCnpLmQ sXJK7MfG0TZY4qWCwgI1wrJeznw fqtE6hIvf+MzggWWVhcnM8 B1NxYsa6JFOceFfbXT0bdKTeKWc pWg5foEctxWhdCK1zDVJimdzeFJ EesJ9qMEHkrGSesUjrMN8a BEFjqzwuk756ItGvTMW1ZLCveOV oA2SfeM8wUyReIKDsVVOnT7WxlF UaLQswR543MNwcPfE8DKPk fiQtL9EfPVSarKpsAzQ5o0I3Kg1 CZZ5QIMU4W8HbTih9BDGygGnvEM 2khOLkUBuuJa7poYzzuXbn FX7hYRSehpuuNVRioQ5iAWKmtHA cpQugOJ9sRFGzpijxg080JrNlZW X3BEDtaJCpJ7JtbW3gTySv EXTuZQQwR2RleBXrCLnxP146QNn zMwN8UXTpycMhK8IgSYFfjLhiZc C9b8Q9Zn0SLTohdDS+PC90 lm28A2GhCnjoYhb1JRYdWNX6tNO 7zU8tTCJgWUadb8W1pEG4R4Mkft Izrj3ru9jiFMTzWUqzU33a dPHop2S4RBGsjNF3VSWdrLhfXtB cgF50Die+IBPhwVizk3PmZynas8 byp7pasZd9IaAyYIHkinPf fZrbWGD3j7YlOt05P75oGXgmAWW cSHWmBKLdADPnsHwein7ypB4sUg 8+MQSiiHL4rMV8bP8zShUe MbP5NVyfG671OmMdxLEqXxqza4u lq5cidVr1MbXtJGKttnCskBanRO D9j5VcZk06M9TazJrve1Ag Qbe7hn58uINgk7H1aSH8N3VuYTQ kjzttcYAqnCnmXR2bHDGzjwioOV ZgcC0bOAGmY3g9WzIaKsH4 VLuoR7VsyjQ5RUSddQQrNSYmzOT RuK4ctqyxq6nwupfhObMeJZBvME e9ZYu1RKBjvPmzZdUeKFQ5 UmH2ODF2wTKxcS7aoKcudcstqY5 wOyc+VVb0q6cgqXNvIW3urGC6AI 16MW58rQSbl5T2eHA0N6Of TWTfwbmagnircUS7GVWuEZBmlA6 4Qt2zkKaxXa1kGADyJIZ1FFZwoT VzU4VtzY3eBgEvVJIpFDSx D5UyyJBkJQykV135TWcyEtW6ZZA xbcVwC5DfWATzlNolLwQ1d6M5Rw 8SEO17BU57FJ63sMJei6A6 tIH8R0BwMKVerzgpmkeuoCP2UYE aYBVyxV07Nj8liGiqKm0kTKMsIB X8LJDyrDOjC7TixE7nYyWt FIAkDPSzS8XppBGjFRzxK007RIk rHaQ9TRNirjUqV9AzJBCfxNswGt V9f0U2Tt0ZSy32IR28MR07 cXGlb9K3kXQ5N3VkFGWmeybpqky viZL2DONkMYTvgM10Ye7uiNoxMk 4vKCCfEHN1ETLwiUVzM6Eq fA6gItImCNWmHGEbT4OhzSRyHEt oM357CSzeSqZ9CMByyaWbY4RtUH GenYrqGvW6i6V1Qu3MGUvw isv5C0EbDfilkVP+VH77SHJaMC0 2lNYoyIYvk3scqSu2NiHwQWVaHB X4vCxyNXhlt3PnQCUzZ22w bGF (more content not included)... Normal [facility] Glucose Glucometer (BldC) [M ass/Vol]Ordered By: Job Martinez on 04-24-2023 Glucose [Mass/Vol] 137 mg/dL [facility] Comment on above: Random Glucose Refer ence Range is dependent on time and content of last meal. Glucose of more than 200 mg/dL in a nonstressed, ambulatory subject supports the diagnosis of Diabetes Mellitus. Glucose Poct Glucometerson 0 04-24-2023 Glucose [Mass/Vol] 137 mg/dL Normal [facility] Comment on above: Result Comment: [place] Glucose Reference Range is dependent on time and content of last meal. Glucose of more than 200 mg/dL in a nonstressed, ambulatory subject supports the diagnosis of Diabetes Mellitus. PERFORMED BY: [facility] [address] [place] [address] PATHOLOGIST GYN PHYSICIAN SINCERE GREENWOOD M.D. Performed By: #### G LULS #### Point of Care testing , Glucose [Mass/Vol] 78 mg/dL Normal [facility] Comment on above: Result Comment: [place] om Glucose Reference Range is dependent on time and content of last meal. Glucose of more than 200 mg/dL in a nonstressed, ambulatory subject supports the diagnosis of Diabetes Mellitus. PERFORMED BY: [facility] [address] [place] [address] PATHOLOGIST GYN PHYSICIAN SINCERE GREENWOOD M.D. Performed By: #### G LULS #### Point of Care testing , HCG ( test) Ashok hobbs Ql (U)Ordered By: Job Martinez on 04-24-2023 HCG ( test) Ql (U) Negative [facility] HCG,Urineon 04-24-2023 Beta HCG ( test) Ql (U) Negative Normal [facility] Comment on above: Result Comment: PERF ORMED BY: [facility] [address] [place] [address] PATHOLOGIST GYN PHYSICIAN SINCERE GREENWOOD M.D. Performed By: #### P P, PLT #### [facility] [address] Vladimir 04-24-2023 L Specimen: [id number] Received: 04/24/23 Status: EVENS Serna Num: [id number] Spec Type: Surgical Subm Dr: Job Martinez MD Tissues: A GASTRIC FOR HP (GAASTRIC RO HP) Procedures: HE/2, Gross/Micro L4, H PYLORI Age/ Patient Sex Location Account Attending Physician Michael Ramon 38/F [id number] Job Martinez MD SPEC NUM: [id number] RECD: 04/24/23 STATUS: EVENS SERNA NUM: [id number] GRACE: 04/24/[address]: Job Martinez MD ENTERED: 04/24/[address] [facility] [address]: SPEC TYPE: Surgical DEPT: S ENTERED BY: [id number] RECV BY: [id number] ORDERED: HE/2, Gross/Micro L4, H PYLORI ORDERED: [...] supports the above rendered diagnosis CPT Codes 90475, 42891 Specimen: [id number] Received: 04/24/23-1520 Status: EVENS Serna Num: [id number] Spec Type: Surgical Subm Dr: Job Martinez MD Tissues: A GASTRIC FOR HP (GAASTRIC RO HP) Procedures: HE/2, Gross/Micro L4, H PYLORI Patient: Michael Ramon [id number] (Continued) Signed (signature on file) Saranya Brown MD 04/25/23 1137 Normal [facility] ED Clinical Summaryon 2023 ED Clinical Summary [facility] ? Urgent Care [address] [place] [address] Clinical Summary PERSON INFORMATION Name: MICHAEL RAMON Age: 38 Years Sex: FEMALE : 1985 MRN: Acct#: Visit Reason: Medical screening exam; [facility] F/U RIGHT FOOT Arrival: 04/23/2023 09:47:48 Discharge: 04/23/2023 10:20:00 LOS: 000 00:33 Check In: 04/23/2023 09:47:48 Checkout: 04/23/2023 10:20:00 Address: [facility] [address] PCP: Shelley Mc DO PROVIDER INFORMATION Provider [...] verbalizes understanding of instructions given Comment: Normal [facility] ED Patient Summaryon 024 ED Patient Summary [facility] ? Urgent Care [address] [place] [address] PATIENT DISCHARGE INSTRUCTIONS Patient Information Name: MICHAEL [...] and treatment you received today in the [facility] Emergency Department were for an urgent problem and are not intended as complete care. It is important for you to follow up with a doctor, nurse practitioner, or physician?s contract administrative assistant for ongoing care. If your [...] so we can reach you if necessary. [facility] Emergency Department has provided you with a complete list of medications post discharge. Please inform your perlite grinder/provider of your visit and for further instruction [...] (S90.31XA) Hallux rigidus (M20.20) Medical screening exam ([id number]) If you received any narcotics, sedation, or [...] and f (more content not included)... Normal [facility] Urgent Care Note- Provideron 04-23-2023 Urgent Care Note- Provider Patient: MICHAEL RAMON Age: 38 years Sex: FEMALE : 1985 Associated Diagnoses: Contusion of right foot; Hallux rigidus Author: Mati Bell PA-C History of Present Illness OCCUPATIONAL HEALTH FOLLOW-UP Date of injury: 08/26/2019 Claim #: [id number] Employer: [employer] Mechanism of Injury: She was moving boxes of [employer] when one fell onto the top of her right foot. 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 On 08/26/19 she was moving boxes of celery when a box fell off of the cart and landed on the top of her right foot. She was initially on light duty per [employer]'s telehealth visit. When she was not [...] her. She arrives in a loosely fitting [facility] for a shoe, and has been instructed [...] History Medical history: Resolved Lower back pain ([id number]): Resolved.. Surgical history: CT guided sac (more content not included)... Normal [facility] Urgent Care Recordon 024 Urgent Care Record [facility] ? Urgent Care [address] [place] [address] PATIENT DISCHARGE INSTRUCTIONS Patient Information Name: MICHAEL RAOMN Age: 38 Years Date of : 1985 Reason For Visit: Medical screening exam; [facility] F/U RIGHT FOOT Arrival Time: 04/23/2023 09:47:48 Primary Care Physician: Shelley Mc DO Attending Physician: Mati Bell PA-C Comment: Visit Diagnosis: Diagnoses This Visit Contusion of right foot (S90.31XA) Hallux rigidus (M20.20) Medical screening exam ([id number]) If you received any narcotics, sedation, or [...] and treatment you received today in the [facility] Urgent Care were for an urgent problem and are not intended as complete care. It is important for you to follow up with a doctor, nurse practitioner, or physician?s contract administrative assistant for ongoing care. If your [...] so we can reach you if necessary. [facility] Urgent Care has provided you with a complete list of medications post discharge. Please inform your perlite grinder/provider of your visit and for further instruction [...] NO Fluid (more content not included)... Normal [facility] Coding Summaryon 04-07-2023 Coding Summary HTMLBase 64 SejwaoxcUHu5mDv+PGhlYWQ+PE1 RDRPjJ28gbZRrxD0qQ0JOCXdAYc viMRQUHDsRMaMcvfNeNE8egOClP XJu IC8+IY6pNOSxTeiulAHhb7S3aOR 3V22ydw6gTMxnwAA3YWRsEkIere tdx8ponUl9BJgeCyboGhKw XJInbC84FAU9cE39Px42aEKgzUY yc6vxiUl9XoGwXUZbOTP8fCztFW zxs1GvLSFiU52eiAHpy4D8 VMZghWbioKKwOaReiGZ8dI8wHEt ewhhka2heevisWjs2to60sUVqc7 G6dLT2Y2MyegD8GCKhjXPt JwcwuZZBbZ7usefiz1mnywjcAyM hKXEeTTe1PWx2HANnlUrnVbOsOQ 19FMJ3ITPdbiCxX3OzZDYi jRmqIqS5g8D6Qs8OQ6QHKrdcA8J NTUFSWTwvdGQ+NW08uc04H0WaQq ggNdc4PNBuCJI0tDW5wO3a YOHiYOdse5Y3fRD3M6AnmkJmje6 ox0nvAXDdEEiyT18pqRQme4U3VZ DdhUH5YDXiuWagFuNntN26 Oyc+MZHxqMfvt3FrOybyj1jkq4r daKo6BesoPDVdbqXbuGxpMNS7b4 KtTy0aUBHjpCW2tKI1oN9n PmYoDsE2FXrnK045YzBbsVJcHzp dO13fM5QyfUN+XPOnRrd5DUCloC maTR1lY5OsSFUntiwauWXb hMinDO9wLBCrtgfvKFRagN2hEII rY2s0LwCqTnL2JZoaS5HvOXHric lxKu80cF2tDjBmVoG4SNma X8VdxdN4ATMfyYEoUEawYOR9S79 ww3J4YGSkGWQbKSA4nTJ1oG8caV lnbjogbGVmdDsgdmVydGlj TSkaYGmeO084HMNwmIknEoHgSAq uZyBEYXRlOiAgMDEvMjkvMjAyND wvdGQ+VMKnCWV2iTkbFIVe lZMyGPmjPu6ljXamcGjxOA1fKTP blbytLIJqyU7nGCYxsYGwkEzjJB 6cWDJuhbaho939DkViYLJ1 TBTryRDtK9YkxM8hLjRhRFMaGEP hM5NxjPZqNSdwS061ROwzCkY4FF JihdLxS6IjYYWchMjeRoJ6 b2G5Lp5Pb0DteisbV3YomPNaWnR uTsnmHIf2A0LxUujjoRD+PC90YW NrJV05VSq3TWS4uNgkWYuc ZAItS1WkhX5fQoQbNJUsMHAgSnv +PHRhYmxlIHdpZHRoPScxMDAlJy LyuHfbXX6bFb3hQNZvEPYy fOqymBMxJcTbq0zpBIMtUYmpLG0 meVqwS7PfpQF0EJQca2p7Dw37A4 7tK0WxeQE+OOTcfHT1kNN8 kC9qCwQqNnN7RNfkD956LkIveGK yTpaek5kyf2eqtEe0KlO7TWUueo UmfUsfVNH9f9LfKr07F09g IHdpZHRoPSIxNSUiIHZhbGlnbj0 icO6lJa3+KGGksUY3fXR9yX1mMe LoQwM2QVthE888DrIzzHOu Lqbsl1nyz8yatMu9YbSkZYCupuT eePggWOY4t1BiOm50T5XtgUzxx1 CkEdp2qo42bHKhh1T6kUZ8 D1RuXWLjygydkGOlzNldOJ6tIZV hsztoMEKpnZ0bITCuF4t8QkDsTh U4HThrV9DptdW0DEZkaUSp VTYmoHGSvG2azdirg9mxchnlJjP fEOYfTKt0CXl4FYQsiQgmCkHoBH P0RsX0RUB7dYCmgM1jxWhk swjaqK6fAtv+QLS2hWMrzJVWMS1 lOjwvdGQ+TTLiYKF0cRoiXVyiHO YvbP1sFMGbS5k6WiOmFcR1 ACpzA9OkikM2DVKqgECbLDIvqTN ArQ1zxgkmv2kyepkmAsYzSUGyIK a4ZRz2GOAgjLbxHaVzYHN5 GdP5BCN0sISgfM2yvLujrqazjB9 wOyc+GvzwaSlgJVY2RLc0Y4ZkId c5GOKvxCniXO2htHIrZNbd Fy0onOdkxQjxEI5vHJEdousqg20 0FePzu6lnHLEwdLRaICqjECN1F4 9ia1B2YXHyKDIvVRS5qLG9 uE3faIcinbscaSMecZchjdGvlGg nZCqdXEktD905AWXadIezRpNzQR k9L1NwJnb1ZBHawYdhRD2h sGJhYUulHq9yfVzmhGnfDB1sCSW rxmquw299DnXcn0raVQAjhFBmJI sqEAE3S95ca0I5NPLiVYCd RVQ7hQY8eD5flStzyiytaHVkaQd pciNiaBzmQQmfNVneE149AIGepN cdRmSehJe6L9TnLme3GYBx ySdgLX0tuTJxWTzvMw0wjQlriRs yEL8wIGGoimnrh506PnChn3paWW NniLBvDMyrHWI1F14oj8R3 KUNzKAFmVWM9iEW6tK1qkKaudtd gbGVmdDsgdmVydGljYWwtYWxpZ2 46IHRvcDsnPlBhdGllbnQg RFtuUPa5M1LtYohnlST+YI74NRW cCR87xARzqYHhy1gmsYa5JdMnVQ GcHOI7zTdkVUfst4QqQVQp L74uiOLnt3A6OVDkiSqyxTJaArM vaSY8hU1nRFnogsbmf8gkaqxkWq iiw9lvpc29lM70X60jBWfg NBAuGHAyRASwEEWmpGfrkf4yoK5 wIi8+YLAkgOE5wJJ7zU5nKSBdNd P8UDuyP064XcHmqMPeYgcm w8guq1xwnZk2SaZ6FYJlkeNbqJl qZMQ1b4PrVl49V39vSQqaLUUoFZ DpSDFdWXFwtJljce0wrH4c Ii8+RACorOF3oXY1aE6iShUgOaR 3BQelA974NtZfrTCoVbtxG80lG9 JvdXA+KJMyWte1GYJsbJom VU2puBKxTWvaVe2dPPP1GhJxDfR qSSerO4UuRDSgdmwrnubteBK2GR LxMLPjoY68Um3hsPtrFWIt hEMPrG2pfdtcs1avseeqBeGxFQP jWTl1VMh2YLMcgAncDgLoXKP8Js I7LYG8eLRpjW2zpHhcvrvr hK3oG1CuQKRzmdnwCk64fE6aQtY aZeI1OZitQyk+TVVMTEVOUywgUk FEAFUYBZZYBCrJPrJ6H3Ru Nnh5DZEanEbtVS9nsZGuPHakCq5 nsQpngXenZX1kMKQesujqLDZttM 1zPVBccCAqxErxLN6fSEEj xdaqe549OyGiIAY1YNVpsCJuA1A bsH1jTaCdAIYvUWAzA5OpaORsVQ ybE025YLzeDcI3ZCMmxhUh I8MdJUOtpLuvDcM8g9W1Eu2aJL9 uNv1hOFd7QV89YM28oZXjh9X6lE I4H0VrVGLfsrxttdtjsTM2 UBSaDLGkdE02bVCnEQscWb9gz5X 5j822JWMgCYUipX74Wf0rwYucWS TruCIVxN9lukfka5uliqde JvNfXWWsWOg7THw4ZATvhBcrGgD wDKI8EwH3QNJ5zGOiuJ2ixLcgel bepE2aCqk+MzggWWVhcnM8 N2SmLmr7APFjaZafLX6hqPWeWZk dMr1zsMhmrWwmDF3hPACujcyaGN TcaV2eVOOlfLZxnRnoDT6n DPJplundj180NjBkIGH0GBZrzZF aC6HugD3bVgRgZNSlQKIlL8LoyJ FoCKiuE434ZWwjKoJ4ZVEb gwPrF2KaLXZgiUwcPlO4r5I8Tv1 UVZ9OWCL5H6RaMme3IOWumWuqAL 9qtUJqOTweTg7cgMrmnKme GH3zIANigblsHDFaeQ7yBEEwgCA ugGpmBA9cTPKklznht618PuUcBF L1SUVfkPErU7IubG7mPcTs TCPeNASjD3ZmeDWcYAutA689AJr bPkT4BTXokjNzP9MhPKDmlZhpXb N6u3X2Qy4YIUjiJ7OiU0Jm eTwvdGQ+KR06dc61E6SzAxegQde 2NQDsAGL5lEP9yN5pLPRmGTwnm6 C8wJI4Y6HuisSajk8th3yt ICIeHAchH22bbXGqs1F1WKDjmJZ 3DZMizZyjTmQlvZ48Xjo+PGNvbG nnn1CwRkfle1giu1dmrUx9 UeJpZQWwycQcsYvhSNX0b2TdTw1 3B73bAXhqWLKoJIDgGGFiGHMbzZ cjtf7rpU7cEi7+PGNvbCB3 qZS1qW6vInYqMvX6FYlmG852QhF rdZCiYuajw1uku5qsuPi1LlOaTE BnwnVtjNvuXQG5v9KlRn94 E3GguEyde4EbNct5yz10nZEoj2Y 5lWD8R9ZiPQRlhzzmdUDgwLqhJG 9rWBRzzrayRLIgvQ1xFAAg B2t6IhYmOkH1MXbbX7UftdA1GGH bkSBsBWOsjJOCuQ8gpfunw8ipdy seInDlABSxLBc0IZx2RUPi oOuvKpRfHMQ4ZjL9UVP3eHGmjP8 puHmpzumsmC4oMuk+WIw5r3pqfG VoPW7shWJ2JP69DL64oOZr f3H4mAF7V8YiEZUqdbeozyhkwNO 1CUUvMNBtyW92Pk7kfHdnLn3uUI KbWNG3VEBrfIFvA8VnoN5q XpYxGDTdUGIgG8WmxLOmOEtoY69 8GXnwRrO0HOHbkiDdO9JiPCLpmR pzBjU0i4R3Wy8MLY13EB00 ZU41nLZja3H8dWN8K4JsXTXwqdr lrgbiaOM8BMWjAFGncY81Ow5zhX ohDz2sZLPvLHH9OGFulZOw N1RhiM9yZwSeCOQmTIEcF8YumIA yWQnmI969PZpyXrM0NCIvoxKaG7 OkPCUjdGzgTcC0a0Q9Ru8X Sr48PO11KK51uXIay8B6rEO0O3U tHYDbvrzorxnuxHJ8MKKcCZHrwC 43Aw9bhWltLp3jCPFcMSX3 OLWazBMyM9OztM1hFjPwNNTjGOW eX0PuvHPgPTetO266LXaySjW4IZ YqnuKsV3OaGKVdoCjwJrY5 m4N0Np2DBJnpkkp7M3OqQgxroPW +KH33LSOmGG12wVHooGYym5iboB a5EwJeJTUjCRN6fEbeFEwv b3J (more content not included)... [facility] Consent Formson 04-07-2023 Consent Forms [id number] [facility] Inpatient Patient Summaryon 04-04-2023 Inpatient Patient Summary [facility] [address] [place], [place] [id number] Patient Discharge Instructions Name: MICHAEL RAMONLINA : 1985 Patient Address: [address] [place] [address] Primary Care Provider: Name: Shelley Mc DO After you are discharged if you find you have any questions, please, call [phone] ext [phone] to speak to a nurse. Discharge Diagnosis: Prescription Information: If you have been given a prescription for narcotics, seek immediate medical attention if you have any difficulty breathing or any sudden status changes such as confusion and sleepiness. If you or anyone you know is experiencing suicidal thoughts, mental health, alcohol and/or drug addiction problems; contact the [facility] 30/09 Crisis Hotline -Text 4HRRK to 170029. If you received any narcotics, sedation, or [...] business decisions or sign any legal documents [facility] would like to thank you [...] Sore Th (more content not included)... Normal [facility] MAGR Intraoperative Recordon 04-04-2023 MAGR Intraoperative Record MAGR Intra-Op Record Summary Primary Physician: SAM HERBERT MD Finalized Date/Time: 04/04/23 11:11:31 Pt. Name: ADAM RAMONEtelvina NEW /Sex: 1985 FEMALE Med Rec #: [id number] Physician: SAM HERBERT MD Financial #: [id number] Pt. Type: D Room/Bed: / Admit/Disch: 04/04/23 [...] Sherry L RT (R) ARRT Role Performed Toll Bridge Attendant Relief Toll Bridge Attendant Medical Delivery Driver Time In 04/04/23 11:04:00 04/04/23 11:04:00 04/04/23 11:04:00 Time Out 04/04/23 11:12:00 04/04/23 11:12:00 04/04/23 11:12:00 Procedure SI Joint SI Joint SI Joint Injection(Bilateral) Injection(Bilateral) Injection(Bilateral) Last Modified By: Ami Baker RN, Barbara RN Long, Barbara RN 04/04/23 11:11:26 04/04/23 11:11:04/04/23 11:11:26 Entry 4 Entry 5 Entry 6 Case Attendee Georgette Thorne Brittany E CSFA KINDL, THOMAS F MD GEOLOGICAL SAMPLE TESTER Role Performed Medical Delivery Driver Scrub Personnel Surgeon - Primary Time In 04/04/23 11:04:00 04/04/23 11:04:00 04/04/23 11:04:00 Time Out 04/04/23 11:12:00 04/04/23 11:12:00 04/04/23 11:12:00 Procedure SI Joint SI Joint SI Joint Injection(Bilateral) Injection(Bilateral) Injection(Bilateral) Last Modified By: Ami Baker RN, Barbara RN Long, Barbara RN 04/04/23 11:11:26 04/04/23 11:11:04/04/23 11:11:26 Entry 7 Case Attendee Nestor Hoyt GEOLOGICAL SAMPLE TESTER Role Performed Scrub Personnel Time In 04/04/23 [...] RN, Rosy Jaime RT (R) ARRT, Georgette Thorne, Valerie Palomino GEOLOGICAL SAMPLE TESTER, SAM HERBERT MD Last Modified By: Ami Baker RN 04/04/23 11:06:40 Patient Positioning MAGR (more content not included)... [facility] MAGR Preoperative Recordon 0 04-04-2023 MAGR Preoperative Record MAGR Pre-Op Record Summary Primary Physician: SAM HERBERT MD Finalized Date/Time: 04/04/23 11:08:51 Pt. Name: MICHAEL RAMON /Sex: 1985 FEMALE Med Rec #: [id number] Physician: SAM HERBERT MD Financial #: [id number] Pt. Type: D Room/Bed: / Admit/Disch: 04/04/23 [...] Signed By: Ami Baker RN 04/04/23 11:08 [facility] POCT Glucose Levelon 024 Glucose [Mass/Vol] 78 mg/dL Normal 74-118 [facility] Comment on above: Performed By: #### 4 [id number] ####[facility] (DEFAULT)[address] [place] [address] Patient Handouton 04-04-2023 Patient Handout [facility] Progress Note - Provideron 0 03-27-2023 Progress Note - Provider [id number]#[id number] [facility] Progress Note - Nurseon 03-10 Progress Note - Nurse Pt called for refi ll on Tiffanya RAMAKRISHNA Johnson reviewed and OK, pt compliant with OV, sent to Dr Herbert for approval [Electronically Signed on: 03/25/2023 11:52 EST] Josefa Schuster LPN [Verified on: 03/25/2023 11:52 EST] Josefa Schuster LPN [facility] Physical Therapy Noteon 03-10 Physical Therapy Note [id number]#[email or web address] [facility] Progress Note - Nurseon Progress Note - Nurse Patient called and left voicemail requesting refill of Baclofen be sent to [facility]. Patient compliant. Prescription sent to pharmacy. [Electronically Signed on: 03/18/2023 09:30 EST] Giuliaan Travis RN [Verified on: 03/18/2023 09:30 EST] Thaddeus MORGAN Giuliana Jennifer [facility] Coding Summaryon 03-17-2023 Coding Summary HTMLBase 64 QmnuftnzCLc0xUe+PGhlYWQ+PE1 VBTKwQ81ygAAakS7fP5PKSXlJGk akMUNMVKaSCjGqrnLxUD9gfWIcH XJu IC8+WP2sMEKmYdlxbEEpb4E5tZH 3L75qjk1jKFwvnJK1BODnOpIaix rhv9zvxHx1USdeDpnfGyMz WLYlmD22JMB6wH69Rt60bJDacYQ vc6uhlFv1EqTeBMZbCYS4iGcqNN zpx4XcMTAnP92kkCGae7L9 ZJGqmKpuaFJcImBlbIP9tS3vUDe mgmssa3hinuhqXjr7nd04fQWvn1 K5hPU3S7KiefR9BBPaqQJg QhffxYQJdJ9kqvzin5qvlbvrEcM yLMLrUIa8NLl2JZUajQtkQjIuSW 70XHL0XFTqdeTjN1ZlDNFv qRqiSfB1h5I2Yw7CS9MIGonxC5R NTUFSWTwvdGQ+BP00zv38J8QwZz viPww9PAVjVAE1xTX0fV3x AOQwFMcha0S4jAE1W6BxunZfch8 sw6gpWKXlPCmvG31lpMNeb3K7UM NumOE0RCYhwAeoBgCuoO55 Oyc+QRDmsVxzt8YuIkvqg1owb4r suMv0ZueqCFFkvdJaoEhrCXO7o2 CzVc9wUJOdpXP5cIB5mS7c QrNpQrY8LRhkA543IbWbgSLmWot yX09lI5JcqXD+YPZtJjn5FPOzmS qaAM7uL4UwZCKzongxkBYl iWdyTA6eFDMnvwusLATgnU6hNVT nS1z7FbPsLlU5FXbtW7WjIZTnke ocBu32yN1nSdZaZbC5PFxu R5WicmE3RKXkhICcUVzuJUC6Q96 qk1L6LBVzOGPoWNX6kWZ8kO3zhO lnbjogbGVmdDsgdmVydGlj RHwzNTsuR136QAYgmPrnUiQxYBk uZyBEYXRlOiAgMDEvMDgvMjAyND wvdGQ+GADhJLU1lRmuFLOc gYRaJGelMp1fwXrzhFyaOI1oYRZ lwksmKQJkiT3sMYBgsFKziLgrSQ 6rTOEufcztq006GwUsAFC0 JTEzqEJkK4CkmG2xPmCaKVKwRPZ uX4SvnEZsSIljV615LJqpCvA0MU UorfToX8ZtENHoiCrgLoK3 c9R5Ur7Qd4NfmcntT0UzkJUqFnI jYhcrEGm3A1PaXfwbkGT+PC90YW GyEP21CPq2MJQ1fSuqYEiu LIMsC7MnbQ4uDaSuAMEyHJKmUog +PHRhYmxlIHdpZHRoPScxMDAlJy WfgCsySN1gEm8fYCHyPVHn gLvqsESbPjLxc2apKZIyDGfoUE7 mhYpnZ4DjxUN1NSZmm7p4Mz73V0 7mV4PtlCO+ZDJehIX6qLY0 jT9rEuDfEjF6ERzyK514YyHrjUG tQwfse6xvi4cgwNw8FeG1WZJulb FxyUjcVMA9p7LgNi44D79a IHdpZHRoPSIxNSUiIHZhbGlnbj0 mfF8hJj3+YZIamWP6xNJ4zG3fCo JwXhL0SRdgW457ZwSvkWYo Bhiyg3qwn9xneNh8PzAtEXMgitQ uhWiyZHU7y5AeWq36G7OjxBfgl6 FpCci0vd50wRXsc7A4eNI5 N0JaJSUfrkgkhZNjgTvmXF2jQPX vtqntWCCsiE3xGLIcB0s8LxUnGc V8TLftO1PpcpR5LCIttGDg FLGeqWJXsO1gqrrrg3ufrqbvYuY wWLDsVLw4YWv7SWBrdXvgUiXuWB G3VcA4SHW3tSLtxB0aoRsx ondofQ4xNpu+FPX7tZCyaHLROK9 lOjwvdGQ+AVXhWWV9xSbaLAprFI LviF4iNVQpU1o6HuDeVpH8 XKjtX0HbdtH3NEDvdRWpCYJlwID WeI7urvyda4jgfxcvQzHhXBScSF r4JTd8MESogBjoBnRxBSZ6 XcT7FZS2fPYubX1arRrdhavzrE4 wOyc+OgqvyXgjYUC4TZa8W7UsKf u5YFCcvVdxUZ5ewHEnRUpn Ln3wzQuymSwvJH1yRIXqgwcom03 7MyFqy5ovQMRcqJZeEQkgPVU6B8 9ne9V6WOJcMLLmLKT2rHF5 fJ4deRykndofmNDltRtccjLabEy kVHyuOAqwA694XYAudInnPeJyWS r0P5RvFnv9NITgtMcxOR3t oPHeWTphTv7onOtjcIlvAM5pASB ciemmw195ZpGdn4qpFVHmvRSgJM luZUV7O94mt7E8YDOwVETw JKX7hCW2yT2stDsumxhzfLIwqZs joaZcbNpqEDvzDAsbT974AOEwtT loHwZdbOb4A3AeQih9FURg bZhvDY6ibAWdGCxoVo1tzXvavCs iMR8pLURcycput606XcYzb0yjED SvcBHsYPjtFNL5D40qg6T7 UMFnCKHqMER4qZU7rC7skNdvysm gbGVmdDsgdmVydGljYWwtYWxpZ2 46IHRvcDsnPlBhdGllbnQg JCxoDLj8Z2MrXmggcVY+OY27MSH rYW32jRGpbQDba5vmjJh0KtTxWU CqUVT7yEglBNdop9StMZCw C85cpCXnd9U7YUAjrVvclSMnKmK muIO3mI3fQGugcslkh3ruotfxTb bkm9hnme78bK70V27jJQiw BOJnOOJePEToQNHzoZwbhc1fvE1 wIi8+BVIiwBH5eUC3oT5sYLPiTh L5NHqiS477GbZgmDEcOktk y3nnx0bwxEg4MuN7PRPyavMvzEv rQBO6g0JtAz11Z35bUDyyNSJkOE MyBRMyTUXsmYdykd7bgP6b Ii8+SLJmrYI1tOU9yV2rCtNiDqS 7DPlqI719LvDxcPGgRvqrH90tZ4 JvdXA+KLAyOjp3ZSZykTah DU3xkYXnIGcqUh8sPUC7XsYwGrG nSSgqA7KoOEEzdiymmxemfQE4JT MaCGEqiR31Es6boZfcJADg mQBAxD5qwmtfw9skukqeZqBpJOM kWTe7LRi0JLQlqMxcNzVsCFI0Bh U4QYQ6uPLswA2tnQgfuwrk zJ8wH3DuMFBvyixxSy75rD1eHyS mLwT4QNgwJzq+TVVMTEVOUywgUk UEQJCGCIORWIaQYbD5C5Ve Brk2SMGadYguTO7hjHEtNOawMh4 gmOppxJijPN3oINZalisiZVRohK 2vKWQcrKXnoPvxAN7lTFLs tngoy527RgHjHVP8YBXlrLWmR7W msR5aOuXhDGUwCHNsZ2WmaRJdYC isH659HLhoSzU8ZRRbjuZl U5DeNHVbvOeiWdR7x3O0Qz4sYH4 kSf1lHMh9HI36WW11wWCtf4W1sP E0Y9GkDIUkwnxbtxkiwIY0 ITBiWVCumF44gUNwFRvjXq0sy8C 2e438PBLxYWTbxO21Xl0wzZtcCF ZacSQUjL9pxucvq7yluiws SpOuWMYjLIj5YTa0GEZojRikOpU rKUX7HyH0XWM1cOWnlG8rhHssnz tcwK7xRqp+MzcgWWVhcnM8 W8IoQfq5PADzmXabIE7ioBQjYSi cKh8fbWysgBapVO7hBTDefyieIQ FblH8pONDatRNvzMfbFR6t LHPxkuewp527BvAtGOK3NFYnsOI bS1ZdiA2sEhFdFGCeWZScJ6NyuY AoWXwyC801YBliXoU1EGGd bqWaG0DcHERxoKarPlS1i8K9Sq2 NQD9IAAV1O4BmUji8IQBgxYjaUS 0efQXeAEzfIh8ieEzmsSmb CW3nWXUchixgGNAhyX0rAWNfjJL jgBbxNL1mUWGwgwhvb209OfPsHY D2APUsdFFlO8KlsO6oJjLp KYAkIFPnP2VofEDiREqlT942DBa xJhH9JRFjlkHdC3TxCLPhjPbdQc E4y7V6An5YPAgaaWI+PC90 lt14N4MhTgzlWhk3TZTnXOP4cGE 3iV4pUAAwDKyhe4P7sTF4J7Piet Hmla1mt4vkGQDwYWfpQ73a nMJen4V8YSZboIO8DVJmzTqeKdI ftX99Ppj+PQWtiFcxk4AqMfhif7 oou8fodFx2ZvOsRBTtocYh pLarMVO3g3FiMq76I92bNYjmELK rVZDnPSZdVOLjwRrqlo1pwO3aMz 8+SLHdxQQ0eCU4yQ9uGgFh XpX5VIgxO121EeTlcHRsGlwwa4n qi1mweWc8IsJiCPZzwkQcrAtuTL U2v0VaTc46K8DibEoie5Ok Agu8pd15xEZba4P4aTB4H6TnWWS qtbpkfFWvnFaqNS1sABZxfqzzMB JseY4nQTIkK5d6DaIoYpI9 UXvlS5UcpmH7ODWlwLUtQTOlwZU MpG2xelaye9omikufWqUjHDYdHE r1XMc3VDPfzTfoTbAiVVD8 WbI8YTS7rQAemO2ntTeewljgnP9 wOyc+AUn8k7sdyLVzYD0lnNK5MA 47OQ23xDUps3B5tUT4L5Mo KPHipqawtuqtdUX7PTMjJASpnA5 1Qv5dfFwcPa2nIKGjOGH8WZVjoE JcY4NhaO0bPhUfYWOzSWRh N1McqVZeRPptN158AGwkSzV6UTI lgrVtC6DvNOUdgBhzTnE8f4E6We 0GQZ71WH48RY60oUUiz6E1 mAE5X7BeRRWxmfwddtyvfAX3IDX oKNLnmL33Ah9hpMlbBp5oXHXoZH K2XJShcKOpY7CamD8dPyNq SXNwMZLvJ8HenVIyCFgkB361FNt wSsP6QNIgvbIxZ4AyRIRvnUxfLr P2h4J3Wx5SEz14MW33ZP79 wOOvr0J7bZY5R1CfUFAxmlwcnlm goZF2WDStULCxeN81Nx6bvPnxOq 5zIPLxLSC7GKSsiEHwR0Lz vM8tDkNsRQJqHRVjV4WeaQDiZFl yZ205RXcjSwZ3ECFhicAcI4UnVY KqaPubVbF4t1N1Ek7CMQeu aye9B1FaTkmttEG+XT89AXZoBY6 4vWUygKAmj8qliTu8XuKiUVZtLA O8mSygEHzkb7JjRNCvC36u bGF (more content not included)... Normal [facility] SURGICAL PATHOLOGY REFERENCE LAB CONSULTon 03-17-2023 CASE REPORT Normal [facility] Comment on above: Order Comment: Speci men Type: FORMALIN-FIXED PARAFFIN-EMBEDDED TISSUE SPECIMEN Ordering Facility: [facility] Address: [address] [place] [id number] Result Comment: [facility] Pathology Report Case: [id number] Authorizing Provider: Mohit Mcghee Collected: 03/17/2023 09:22 AM Ordering Location: [facility] Received: 03/17/2023 09:21 AM [facility] Laboratory Pathologist: Naveen Harding MD, PhD Specimen: SLIDE(S), 7 SLIDES [id number] Performed By: #### [id number] #### [facility] CLIA [id number] [address] [place] [address] [place] CLINICAL HISTORY CONSULT [facility]: Order Comment: Speci men Type: FORMALIN-FIXED PARAFFIN-EMBEDDED TISSUE SPECIMEN Ordering Facility: [facility] Address: [address] [place] [id number] Performed By: #### L [id number] #### [facility] CLIA [id number] [address] [place] [address] [place] [address] [place] DIAGNOSIS COMMENT Normal [facility] Comment on above: Order Comment: Speci men Type: FORMALIN-FIXED PARAFFIN-EMBEDDED TISSUE SPECIMEN Ordering Facility: [facility] Address: [address] [place] [id number] Result Comment: Than k you for allowing us the opportunity to review this case in consultation representing a liver biopsy from a 37-year-old female patient. Histologic sections show cores of liver parenchyma with an architecture distorted by fibrous bands, consistent with bridging fibrosis. In focal areas, there appears to be possible early nodule formation, but this specimen is limited and cannot be definitive. The fibrous septae and portal tracts show mild inflammatory infiltrate composed of lymphocytes and scattered plasma cells predominantly. There is no confederated goshute bile duct injury. There is no duct centric inflammation or granulomatous inflammation. There is prominent periductal fibrosis focally. The inflammation focally spreads to the adjacent liver parenchyma, but overall interface activity is not significant. The lobular parenchyma shows mild amount of small droplet and large droplet macrovesicular steatosis, comprising about 10% of the liver parenchyma. Ballooning degeneration is present. There is no significant Kaila Denk bodies or cholestasis. Scattered foci of lobular activity are present with few acidophil bodies. The trichrome stain confirms the presence of at least bridging fibrosis. The iron stain is negative. PASD does not show alpha-1 antitrypsin globules. Overall, the finding in this biopsy show liver parenchyma with at least bridging fibrosis and features of steatohepatitis. Steatohepatitis is a pattern of injury that can be seen in numerous settings including drug or toxic injury (alcohol, medications, supplements, and others), metabolic or nutritional factors (obesity, hyperinsulinemia, dyslipidemia), and inherited conditions. These etiologies cannot be reliably based on histology alone. Correlation with clinical data including risk factors for fatty liver disease is recommended. Thank you for sending this case in consultation. Please do not hesitate to contact the GI Consultation Service at [phone] with questions or if additional follow up information becomes available. This case was reviewed in conjunction with the GI pathology fellow, Dagoberto Infante MD. Performed By: #### L [id number] #### [facility] CLIA [id number] [address] [place] [address] FINAL DIAGNOSIS Liver, biopsy: Normal [facility] Comment on above: Order Comment: Speci men Type: FORMALIN-FIXED PARAFFIN-EMBEDDED TISSUE SPECIMEN Ordering Facility: [facility] Address: [address] [place], [place] [id number] Result Comment: - Fe atures of steatohepatitis with bridging fibrosis, cannot rule out focal early nodule formation. /SF - 03/18/2023 Performed By: #### L [id number] #### [facility] CLIA [id number] [address] [place] [address] FINAL PERFORMING LAB Normal [facility] Comment on above: Order Comment: Speci men Type: FORMALIN-FIXED PARAFFIN-EMBEDDED TISSUE SPECIMEN Ordering Facility: [facility] Address: [address] [place], [place] [id number] Result Comment: Diag nostic interpretation performed at [facility], [address] [place] [address] CLIA# [id number] Legislative Assistant: Cesar Mullins M.D. Performed By: #### L [id number] #### [facility] CLIA [id number] [address] [place] [address] [place] Activated partial thrombopla stin time (aPTT) in platelet poor plasma by coagulation aOrdered By: Job Martinez on 03-11-2023 aPTT Coag (PPP) [Time] 37.6 s 25.1-36.5 [facility] Comment on above: A hematocrit value g reater than 55% may lead to inaccurate results in coagulation testing. Patients having hematocrit values >55% require a special collection tube for coagulation studies. Please contact the laboratory at [phone] for redraw instructions. Coagulation Profileon 2023 aPTT Coag (Bld) [Time] 37.6 s High 25.1-36.5 [facility] Comment on above: Order Comment: STAT FOR UL Result Comment: A he matocrit value greater than 55% may lead to inaccurate results in coagulation testing. Patients having hematocrit values >55% require a special collection tube for coagulation studies. Please contact the laboratory at [phone] for redraw instructions. PERFORMED BY: [place] [address] PATHOLOGIST GYN PHYSICIAN SINCERE GREENWOOD M.D. Performed By: #### P P, PLT #### [place] [id number] [facility] INR Coag (PPP) [Relative time] 1.1 {INR} Normal [facility] Comment on above: Order Comment: STAT FOR [...] Performed By: #### P P, PLT #### [place] [id number] [place] PT Coag (PPP) [Time] 12.3 s Normal 9.0-12.9 [facility] Comment on above: Order Comment: STAT FOR UL Result Comment: A he matocrit value greater than 55% may lead to inaccurate results in coagulation testing. Patients having hematocrit values >55% require a special collection tube for coagulation studies. Please contact the laboratory at [phone] for redraw instructions. Performed By: #### P P, PLT #### [address] [address] [place] INR in Platelet poor plasma by Coagulation assayOrdered By: Job Martinez on 01-02-2024 INR Coag (PPP) [Relative time] 1.1 {INR} [facility] Comment on above: INR Therapeutic Rang e [...] [id number] Received: 03/11/23 Status: EVENS Serna Num: [id number] Spec Type: Surgical Subm Dr: Mohit Mcghee DO Tissues: A Liver - Needle Biopsy (LT LOBE LIVER) Procedures: Trichrome, Reticulum I, Iron, HE/2, Gross/Micro L5, PAS - Hemat, PAS - Diastase Age/ Patient Sex Location Account Attending Physician Michael Ramon 37/F [id number] Job Martinez MD SPEC NUM: [id number] RECD: 03/11/23 STATUS: EVENS SERNA NUM: [id number] GRACE: 03/11/23 DR: Mohit Mcghee DO ENTERED: 03/11/[address] [facility] [address]: Job Martinez MD SPEC TYPE: Surgical [...] [id number] Received: 03/11/23 Status: EVENS Serna Num: [id number] Spec Type: Surgical Subm Dr: Mohit Mcghee DO Tissues: A Liver - Needle Biopsy (LT LOBE LIVER) Procedures: Trichrome, Reticulum I, Iron, HE/2, Gross/Micro L5, PAS - Hemat, PAS - Diastase Patient: BurnsideMichael [id number] (Continued) Specimen: [id number] Received: 03/11/23 (Continued) Pathological Diagnosis (Continued) Signed (signature on file) Ritchie Spring MD 03/14/23 1246 Specimen: [id number] Received: 03/11/23 Status: EVENS Serna Num: [id number] Spec Type: Surgical Subm Dr: Mohit Mcghee DO Tissues: A Liver - Needle Biopsy (LT LOBE LIVER) Procedures: Trichrome, Reticulum I, Iron, HE/2, Gross/Micro L5, PAS - Hemat, PAS - Diastase Patient: Mihcael Ramon [id number] (Continued) Specimen: [id number] Received: 03/11/23 (Continued) Pathological [...] and (more content not included)... Normal [facility] Platelet Counton 03-11-2023 Platelets (Bld) [#/Vol] 284 10*3/uL Normal 150-450 [facility] Comment on above: Order Comment: STAT FOR UL Result Comment: PERF ORMED BY: [place] [address] PATHOLOGIST GYN PHYSICIAN SINCERE GREENWOOD M.D. Performed By: #### P P, PLT #### [address] Platelets Auto (Bld) [#/Vol] Ordered By: Job Martinez on 03-11-2023 Platelets (Bld) [#/Vol] 284 10*3/uL 150-450 [facility] Prothrombin time (PT)Ordered By: Job Martinez on 03-11-2023 PT Coag (PPP) [Time] 12.3 s 9.0-12.9 [facility] Comment on above: A hematocrit value g reater than 55% may lead to inaccurate results in coagulation testing. Patients having hematocrit values >55% require a special collection tube for coagulation studies. Please contact the laboratory at [phone] for redraw instructions. US guide needle placementon 03-11-2023 US guide needle placement [facility] Main [place] [id number] Ultrasound Report Signed Patient: Michael Ramon MR#: [id number] 2328 : 1985 Acct:[id number] Age/Sex: 37 / F ADM Date: 03/11/23 Loc: UL Room: Type: [facility] Attending Dr: Job Martinez MD Ordering Provider: Job Martinez MD Date of Service: 03/11/23 US/US guide needle placement: K76.0 Copies to: Job Martienz MD Ultrasound-guided Random Liver Biopsy HISTORY: Elevated [...] Mohit Mcghee M.D.03/11/2023 2:50 PM Dictation Location: [facility] Tech: Denia Goodwin Transcribed By: SAEID 03/11/23 1450 Dictated By: Mohit Mcghee DO 03/11/23 1446 Signed By: 03/11/23 1450 Normal [facility] US needle biopsyon US needle biopsy [place] [address] Ultrasound Report Signed Patient: Michael Ramon MR#: [id number] 2328 : 1985 Acct:[id number] Age/Sex: 37 / F ADM Date: 03/11/23 Loc: Room: Type: [facility] Attending Dr: Job Martinez MD Ordering Provider: Job Martinez MD Date of Service: 03/11/23 US/US needle biopsy: . Copies to: Job Martinez MD Post biopsy ultrasound assessment of the liver. HISTORY: No worrisome bleed. US/US needle biopsy IMPRESSION: No worrisome post biopsy bleed. Impression dictated by: Mohit Mcghee M.D.03/11/2023 3:44 PM Dictation Location: [facility] Tech: Denia Goodwin Transcribed By: SAEID 03/11/23 1544 Dictated By: Mohit Mcghee DO 03/11/23 1544 Signed By: 03/11/23 154 Normal [facility] Coding Summaryon 03-05-2023 Coding Summary HTMLBase 64 PkdxcsobVZm8cVw+PGhlYWQ+PE1 ZUZPcM66tnCFkhZ4qM3ZLZZnWMn ynYROJKNiIUpBguhEaPT4syQVvC XJu IC8+YV3uOHMuFqnjmHVzs0V5zXD 9E78wok1wQEgqnBP6SGCeKiDalf lbm7lxwCh6ALirBfnjFbWa ZWAywK72UMB8vR16Dq01nVYuzLF ic3waaFi1DdZaDIYyFSB5pHagRM lzb7VpUNRwN49ucHDhs2Y1 EEJvqQbysJPsEiKwlBX6zS0nGNu fnyggr1shfpxtCto7xl22aNXhe1 E2kLP9O1CwbnW8FEJziWXg SmgeoQIOyE4rcruvl3yfytzpXsX vYWMkGAc4XJs6JEAiqEvdDyMwPY 49XDH5NZQtvdDkA3WaLREd rWnkNqM4k9C1Cf5OT3LHNtqxP0L NTUFSWTwvdGQ+NX42tn50N0WyGp jlVib8EOGeZZB0rIK0dV2z ROPePTfst7F3lXG7Y8TztnPlaq6 tv6tuBCLbFTkvQ20psYQhj2V7QJ BmvHO6FLIarLfiOrKnqZ56 Oyc+KKOlzKrlo1VpFknvy9yoq1o sbLn3YbplQDLitrUauMdxNRF9u3 UaPu1iGOAuaLQ8aYS7lT4j MmObMuQ7GFdrI865EgPbvDSjDrd zT30kV5CurOK+FICtWws4KQFkzF dbHM1vN1FjWZYdbjvukYEp gVhvQK7wBAAajvwuGKHmmZ7sWBQ hZ7k2ZtRvHhI5ELyzE8RiEQZpet nzRg85hY1gUzMrJaP1NQre B0EswuT7QPRnnLIzTAheTJV9E59 av0X6QBHmGCXbNEZ4xLM9vX9hvM lnbjogbGVmdDsgdmVydGlj BIatJOpvK528RKGatJcuLeBfUVl uZyBEYXRlOiAgMTIvMjcvMjAyMz wvdGQ+DWHhTGC6nNzgJBWt yBEcXDuvJz2qjQzpuSahDN9uQSF tpukjGQJtmY2yPWYdaFCsnQzhTI 9zNSDicezwu574KaBgAVH5 KVJqvOWvY5DjmA8pUnOiRPFfHRF gJ3FbbVZkMCopM175LQinDfB3CY KudrCeO7SuSVTuzCtnJxR9 b6S9Yz1Tu6YkzjimA7HndFBeRvR lPwokVCk5B3NnNzfksXA+PC90YW VnQQ29RFy4XTC0hSryNSlq GIYuW5GtoY3aAvFoOVBdAXRhArq +PHRhYmxlIHdpZHRoPScxMDAlJy KcuMeuDI4rGh4tKKYaYFDd vQieoBNdEnDwq0ndMKTaLKegEB1 qfSslU1DqyKB2DLUkq0b3Hd86C1 2vO5EojDW+ABQixLJ1nKB9 eE4pLmDxNyM7IYyxA979TnKgoFN uXuweg0hxe0sjsAh8WiV1WORlkz PeaLbzQES7g9HlAi11W21x IHdpZHRoPSIxNSUiIHZhbGlnbj0 ieP3oFf7+NBTqyBS4pUL5xW9sAd IiMlP6PBhiA271FrEhkTYr Ozhml5kua9mfcOf6PxXgXUPyczK pyQooZWO0m8VwDq04W4EinPkzo3 LfMns0pf15cNCnr2P7rGP3 C9NeYVGxndmqiWErrQgpZR3uKYO ctzblKPRpgC5nDWXyE6v9BkJwAb Q8BYesU5JjvzV2KDBpfVOc NOIfhARMhD3gbhpvs0acqrygBgZ kYPNwTXe8ASf9SJEltLoxNcHiLG F9CoP1OBE5bXDinC5jwQsy nwigjK7oBvg+SDC2oAQptCRNZG0 lOjwvdGQ+MIBsMZK3zZmyMBfeDO RqkF3cJDUxC4c0FjTsDaG5 CRgjN2YryxK6ASGneKKzKDEjcQO JjX3puhexz1lmqegyFoSeZFBxTO o4GIt6EETzcAdsAoRqNXD9 AqN2ZKP3uQTsxH1lcJuivjqudS2 wOyc+SbaylIfgAUZ5JJg4L1FrMo k8EBXqgKqjAM1piPWrLUxm Sb3dkWomnJhqNP4jPVCdotmto24 4DtHet0wqQKDixLCqSXahQGU7I7 5cx9H6TGZeIMJfGXI3sUI6 pE7evTndntclaGJsjXodsnNpeXs tJRqtJXjyL386HUZqaBovMoWnRN h6E4PwIkh6ACKitNqyDA3p oYHmZNroHx5hfDbhuTjyPF4iHLE hzaruq881ZkDpk8izUYMbuREyUN pvSKE0H94hr5S2JGZuJPOk PTL1jLP7pJ6ptUdrisgztAJkdZp sbeBmyRjbDGabOIhiJ272BHLsoW xjUvLhwEb1Z0YrDcy0TDEz rJicSI5vtQDdRBfiIc1evXnqlSb nZP5wRVPzyydnm660SvAtn4ghTT EgqQIsYOzuRCS8S00rr3M7 SRMnMGHnFMU0lIZ6kP2zvSwwcyo gbGVmdDsgdmVydGljYWwtYWxpZ2 46IHRvcDsnPlBhdGllbnQg EQogMWq7J1UcKhtqcEG+IV00JMG hHA03nEAkzVClj5gudIc6WnMoMJ RsVEC9iJhmEMprf7TqCLEu L00dgFCjg4I1QWTqmWtmlTPhNiA fyBV6uA0dFMjfdgtjm1svetbxOa eba3kryo38bZ71O18eWAab XOAlKGLgIXBnATCryKuxqn1ppW5 wIi8+PWGjrUW0fUS8eB6iEDEtAw G1ZVkwO532GlJniVPoDltx e8wrn9ubvKw7NrP9XDYdtpGgzHo uKEN5f8NqRe65Y43iMNiwPUDhEU SwXHJrHDMwfUktax8rkF7m Ii8+ZKGdbYL6pDI1lD5fRjVdIaX 6OSfqW562EmFccHKnLutcM43rF3 JvdXA+RSZwNky3NBNsxVet MC0xyIWnHQezEj6mFLF1VlFdCtI hFXboT1FfJRSxhmvaknfszTL5HH BoNVEonH50Ul6qsSzlBAXb aAZTeO0yondyi5zgpudoJqIeZJT mLXk8BGk4ABIewAdvMdZrDIX1Ez V3XZO8gWQcmL2ibWtmujij yH7xO9WfGSWpmabrEs74qA8lFvN nExP8JHwpNut+TVVMTEVOUywgUk HMTPAIOMBSDHpTRoS4O1Tq Epg7HSFunMbwBV3yqMWbGTngSv8 xiUdidHgqUL1oGJPdoijdWXYkzY 1cMPYwhUEbiLafJJ2oMRDv thcwg585LuGnRKA1PPCtlTZlE7V luP6yIaKcOHAcPHFuK4CjvIZyQT vkQ523JFiqSuJ5XPVrdePm E0PnISKncLevItU7y7A8Ym4wBT4 xJe8pVTx1RS87ZE20uQDxi3R1hO D7H8OhIKHvqsmogautuUF5 JQTmTTSmpE15xLLyKHzwAe2hc1B 1w610JBCvAWKajY56Pz1buNvgCP DrjLXEgK6wqqqui6rfxgmd CfQdGSEbCPl4NKc5KVYzcHbiEwE mRGZ1FmV2SPU7lPTjmQ9sgAvrnn fjwF6wFwy+MzcgWWVhcnM8 G9GaXay0BUHqjAsgBA1tzFPqEQk ePz9wxJowzBwwSB8lQLYgpgzhFW VpyQ8xKSSfyFEfdEgwXT3n CCOjjgdqa312HgWsKUW3ERQsyIR eP8WbeL3oWiReHYXvQHLkN5JxzR QmGGhhH718JDecBoF9GULq dnXjT9FsDWVxnCyiUoY1t1E4El3 DLU5JBVD3C6MjBcy8HFNuwQxzWT 7jdWBeYQdeHp9ywVgubXsx AP3kJEAxqafxIIJloP2jCYRtcMZ cvMikYR3vSYNhtttmi974FuCzRU Q7SMVkpFDwO5ZgfV3aNxDh BVCrRAQnM0MrhOXlNCclM951UNx vCmG8MVNdnvLfA0SiFBKsfWmuVx V9m4X0Rb6JYLvxmIJ+PC90 nm35G2GuJpubYdz2UERrJSQ2bAA 8mG9tXYGjBJvfp5K5qAN5K1Wlui Jxmh6un8etVPXwITftI33i uCRft8T6PFLhoFB0SDDobSjcIsG ghY42Vcz+UMSgfEbpg8ArQsqtw0 cpm5thtIw0MxScATMhdaMq rVwrYMH4c7KrJt72K44tUStkGPJ wMMLhOICyQKLjaRgnei1uvP1tYv 8+QHVxqWV6fEO6wH3oTmYf PzX6PXwmI100MhHgiRZfAduau4d xa3gwfDj5VeOqMFIbnqSkgUpvSV L1f3XpMz46R4KulHdrt1Sm Lff3at14nSDet9V5mXO8F5QyNIU fedyijVHfoJmwZB8gZWNkavvhEI FixM0gUESwY4k7SrZyRfQ5 NWemB2EsusX9VKCsbPHyKNYipZU SoP2gpwvxb7truqeeZiMdUUUxSQ w3DZv6UYTtcMngRsZzROS0 ZeS5XTR0vOQwrQ3fgTxpvnefnR8 wOyc+YYc8p9nhkIIbFA5weXY9RB 71GS30fTDdp8O1gJC0P6Mz MSNkkerjlmgvuBM1IRKpJGZpvR3 2Vr7etVwgFt2uXSHhOHZ2SZNsmO MgC4ZdbX8rXmMmCGHbASFo W6DugKOzBPctU358ZFlxCiV1CZD lzsUzE8XzOTKqkEnxUrS9p8F9Kt 3QWO69BR41BX39tRGvf8E7 fGK1H6GhNJPpblbofqnzoCA7NXI iIXYkxE43Hd9psWnmPd8oCPQkJR O5BOAobPDmH9BkhV9aIhBb JVTdGYDrL8KnwCVwDDaaB635SMk gRxN3UEVvlfKpI7AsQCJlyAtjNm K7q3E9Xh5PGn44SL31DC48 pADwf7G0vOA5J4YaNHPzumewldh mbGZ6ITOmLKEotD76Tm4pnBlwPs 1aUXWwESF1DHQkvYWhX8Pn yL0uFnUlMWMnJIOqZ3CfoBUcXBn dL950NVbiSnU2WOVnqmHwN8UxFZ IikOcxNzI6u5J7Xm6ROItf jnn5S6XgGkkgfAB+QJ64PFCaUI5 9zSHiaYYgs6cagZy3NeQhLDQdUT Y5lSdeIGrni9QbPSQdP87e bGF (more content not included)... [facility] Provider Orderson 02-27-2023 Provider Orders [id number] [facility] Coding Summaryon 02-26-2023 Coding Summary HTMLBase 64 JkemafbjSSr6iVc+PGhlYWQ+PE1 NPAQkH83dkLTtwV1yM9NIRKrOTe diXGYQKYzRNgLoboHoKO5ieZRuP XJu IC8+SF0eZBJtDrgylYVdh0L7kWY 9P49gkp5dRJjanPT7PBOxJjPvyv bvo9jzzBd8XXtbNwxwLrFd QVVutR40VCY1iP05Mp95tXZptQV vs0myiIp5QpEzQLSrQNP7hPikZV moy8IuZSSoF63ytIDit2A9 PJLbbLratGKpIzMrqRA7vZ0kQSf anvkmf0qqlkcaGoh3er78fXRzk7 T8rUK1U2PjugA6ALNyjSWm CkjyrATJmO4cxwazk5githupZfT uQHYkEKz2XOv9ELPnrQeqPuCmTU 72PXL2NCInvaSdV6CbJBLo zCqtZoP4y8P4Up0JO9YRArjbJ5V NTUFSWTwvdGQ+VU02xd53J0VqWf gfUsv5QYZcRXR3sWU6gI0m PPZbPTxdz9X4wHY5O7YmfuVxkh7 vo3acNXEjOCdvE18bzFQxs7B1LE AduFJ9ZJWsaZqaJvVhcN36 Oyc+AOTktCcpn8MxHgzbo3gjx2v gxHk1YwfdABYtqeFhrYksQRV6t3 CoRs8eAXRtsWG9nHA2cF3i WvIeJkP9NYirK610UiVeeSMiGnr oP83fZ7MblAI+DDBpUez9DVIjlL ohQG8pV2PaEABskhmrzCBz zOvyIT0tOHOdbcjrLFKpjR1xQWQ xP7o1FnViMaN7IXteU6SxTCTxuc klHc78eQ8aVsGiNlY9PRqd I8EgobL7PUUqmQEiNMwrBPD8V87 hx6J5RZLfVJJuDQX6zKR9zT7htE lnbjogbGVmdDsgdmVydGlj SGabHMpzD797WTLapNicHwUdNGp uZyBEYXRlOiAgMTIvMjAvMjAyMz wvdGQ+ZPLzHLB0cEyaFOEi iQIzDJiyOi3hpCpuuKlaPG7gXSQ bdzaySHXjqE0yDSNynCEgmVzbHB 7wMSVespgqb352ZpEmCHE7 CUDsdOQdV2ShzL6jUnVwIPIcFFS jN4QknQTdGPfyE524KIoaBpC2WX MaqcKyM7IhVKJhmWfrIyE8 f5V7Gf6Gw1XlrtqbX8XipCEjNcF ySacxMWc6N6QvCwzlvWN+PC90YW DhBD10EVa2KTR4sFbpKXbp YTTaQ5KnlP4fEnXlGMQdUFVmCmw +PHRhYmxlIHdpZHRoPScxMDAlJy QrjHqsOS9kKl5bCZGbCGAp tDuatSIcDhUlu7rdWKGzLCuqIJ0 akVuqH2DzwKB8AHToz5a5Pu11U3 9oV8JoyOG+ECPtzJD0nWT5 qS0lFuNsVgK8EWzjX931GvReyCQ gXfgew1cef8wwhVk8PxK8VOHksx EvmRjrUGR7y5RuUj66J16q IHdpZHRoPSIxNSUiIHZhbGlnbj0 tjJ9fJs7+HEYbnGG5mPR6dD7yIr BlTaZ6CPmgO860RtTtaTLl Inevm3yzd5iiwOe7FoJeSTEyikT leXshFJH4r6QrJx36D3BvzNlis1 XfKlg4gs97iNFfb1K0hTX8 A2UrSPHrbtqatJKkqPfoBQ6gGGO yhsokWQVanJ5nOYGpS7g6CaZtSn J6RIpuX7PfboB3ZSQeoSQz GGSuuUTViE8hunzis9picdctTyS lRYVwTPe8IAk8FUCvuKncAbUoPW I0ApY5VZM6eYYahM2kuDsw xxuejF5aLgg+WFY8aODhuZHXWN4 lOjwvdGQ+TUYtPNY1nQskGOfyDU AzzZ6kNHKlL8b9WsUtGdU9 UQoeY7MroyO7KLVyjBUsIPPnvMS HbF9rjzgoo6adzdxvWlZwLXYxHQ p5EJu6BHAwdZxkLvMbMIA5 NjG6PJJ7pKApnK9ybYxmtivdhD3 wOyc+LhrwgOgaTBK5NRx1Z7CcBy x4CPZkmKglGX7liAFfABof Eb6tpTflhZflTA3fETFtxpimh38 6PaWye3yfWTRaeJHgQEnnNJC7Z3 7uv1Y4MAHsIVYtKOQ4gCF9 tQ3tkYpsikokxSRgsGlykeOobCa bFYefSRueZ007YMWdfHhoCiFoWT n1W7HjYgg9IFTwpHyvQK3o eXDbNNarEm3kiCsqyJerDI6aIER cfoumh792FgOec8peHLLtvMThEE igUNZ1A54su4C2VLEzMOJm OQJ3jVB5xO8aeDfwtevvvGRgdEq zdvPgnJgrDWofZXjdJ897OMMgqM srFxTayBl0T1FkFqx2GDZp lEjzCE5vsAQwYUtqJz8wtJqplMn lMQ1cEQDupvvsd695CfIvq4ioPC DyhZFpXExkXVW5N44pc6T8 IUCfQKIrLTP5bOJ2pA1moSuednx gbGVmdDsgdmVydGljYWwtYWxpZ2 46IHRvcDsnPlBhdGllbnQg UDqcRIz3Y1HuQcktnZK+ZF94LUZ oVC36lRLpsFAvi3zniZg5DqQfPC AtXKE1qBzxLAdbd6QkKOMj R58qsQZak1D9BYOxvWsqoWLbMlT fkHI0iQ7bXLlufxxio6zgmectXy ksi4hplj45eT85S79wREqg IROfLGCfJGEqZUFxoGiyax6adJ8 wIi8+ICDtvAO9iCO1bJ3xDQUaVm G2NWoaV392LyCtnLYrGbxr q4vif7oanOo2VdG5SBTnzqTtjUi rCOS5g8TyDc54G54aWGcvYKWwZH RyGCBcNFJwnIbnef7sfP1c Ii8+PBMqwZR3dIS9sR6nXyPmKkW 5BOfjC320GoYfqYRkQkfjR88cR7 JvdXA+VUSuQks6KTAtxVal GD6jgQLwUKhtAl2mQQN5RqLbIcO uHBmsV5LkVOPrgclfisehkPQ6HY WfAWHivF26Ei9hdDltLFUg dGMJwP0swvidn9cfrjbzWpKkXHR eDEh6WXq9UXEmzZluCtXhZZG3Vz J5HDS8tUEzjQ2feJyinfqu sU0eZ1WiXZIgjhiwIy94fB4oQoP pXcF4YGdgXkk+TVVMTEVOUywgUk INQPOTQZCDBRbCBrW0R5Gk Hwy6WUIswWteZV5fcKGtCDlpVr5 lpGlfpGbjRX0aYDXkaoiiDGSbvW 6bEYLgfMDobWhmMC7sYEOr igywq542TwPrQCA7PJGkfYCjD8L wbX6cVuLkWIJgEIPpG6NfvMVjAB zvX839KXfzNnU8EMTjpdEq T7TsOEIjwHilLpG3s3B9Uj0wJG3 dHr1lSAk4DJ75OY53zDTca4Q5cZ M3V6FbNRQzsiicwqeetWN6 XNQfVVDhvG77mGUcTSxcPw2rh1O 6a395RZRpEQKfmZ11Cn8pyXwiAX HxvENPgY3qvdlwr5wdosmb ApAwQMBzBIs0VIg0GXOheBxmZcQ fYRC6NfD6SGA0zAPbaF3piEhyne qkeI6dQgz+MzcgWWVhcnM8 O7LzGxc7SGWfbPkwUH3tfZYxZSf lXb1svVawxRlxCE4qWEZcoyvyNE HcbC5bMQWvvMYcvYnsDA3p DGZgagpoh409KkNhJWR0GCAspBJ dP2MldE0cDlPcGBJsKKYbP2QpiN LlWHfxE161XElrXzT1ISRi akZsN2MaBZBfySzgLpX1n2P2Bj6 XLZ3QEWQ7I4SrIoo6IOPbwMltVH 2qdOQoXIhbFt7wcLmtySee OU8kZGYkkpbrVTKqpH1yFYXuxMZ faMbmMU9nYDPxqquvb756YlZlXE U5IPXgxCXcS1HvrM6uEgBs RIFlBNJmF7OmaNYuJGboI103YTo eOnC4FSBjlnIvB6WeYTRjjKoaFt L0u0C5Mq2WWUgieUP+PC90 mt87T6KeIewqQvh2EMEpHVN4iYB 3xR5iPIVaNKxkf0N1lGR6E3Qvss Svry8of4dlYXBaMDdgM56j hWUni8Q8ADPofMI7KULubWqbAsC fyC41Ogu+BHHonBqaa3QzCxuoi9 pku0wukYd3XjMkYIBnmiCn mUnpUKS5s8NwLq96T62uTXifXQT wPWWvBCDgJYIqtBohtb2jsH3fRz 8+WBKvlZK3nIX5uR5cBrIv HiY8QLklH411SbXvsVLxAedeb2h kf0udjKh6DkKdOCHkfaNnzRbiXD W5w5DpCg85S6DkzHwyl8Ev Zlw9my82uUQmj2M7oDG1E5CaKTX nogbfuDFehAfnCQ4tXFOgzjztKK KhyW9eOCSwN5p1SnElLsS8 RCyvC9TtdsE7FLRtaPIzJTIcsAA OrQ6cboytm7uflslvKdSxSUSsBP e3RZq9GGAzwZfjOsItBGX5 RyP1KWK9hZFszT7wxSltsaddqC9 wOyc+TYq4o0edkJRmCE5fjOB9YU 68QL72fCMnf6V6wHY8U6Lh ZOQjtsajjbtvoTM3XKPgPEUaeS6 6Dd8guDgdSb3mEMMpJVP1JSPvcS ChZ2YrxO3oTtTiIMDpWVDu X9NchJCuRNknQ768WKpcExE5WOF kgcSvE6HsIAVmnTmfAkC4e2X4Zx 3AXA06AZ70BH25hOBtz3L6 fMK3N6DjDCGbksrmygpcoUC3ROB aBPPviL10Bl0yzBrwEp5iFZXdIL J5ZZSvdNCvW5YkxM0tGhAh SXBcKUHnH6RpzPBkZLfeV319PNj vZuO8VLJhwbIrU1ZkGAFqpCgaAp M5h3P8Hb8ZMd59JT28AL67 fEGvd7C1xGG4G2SmMLSdsdgroqz tdAP5TDMzPOHdfW71Hw2klBsxJa 4iJNKhMGJ9HBHetQMwN3Um sC1dGzMwXFEjRUEnH3XdxASeJMl uZ656LHsbNqH0FWNnflCeW9OcMM PsfSlrLyE7w0D9Kx5REEsq gos1C0FcUflouRH+GQ43YMOyHQ5 8jSAvnFBwj6retPz6VrExWBVnXT U9wUjyBAyht1BaJMVrB36w bGF (more content not included)... [facility] Coding Summaryon 02-19-2023 Coding Summary HTMLBase 64 IbegucokSSx0iDg+PGhlYWQ+PE1 OWCHyT04hjPXivR1rK1MZHApGNb cpEEJZUSxAZwGjztFtSL2ppGIrS XJu IC8+DY4kTOXeRausvIOws8F0kZI 4T17pbm3zKCmygAD4RHMvRmWdwv rdn5reeHf7UHqcLjpdQeIw MVBepR89UCZ3uC64Hz68uAKyePR fc6arrBv9BgWaVFFdCEA8tRvdZP vbs1JdJLRmN87yhIIkh2H0 TIJmhGsokBDgLcEugIR7nI9eKSa sihnkr9ximeshQmq5cy90eKCnm4 G4fZC9C4FilqH7FBRkhMLy DlzjpMUYzL0xtwuxg8ajrotrOuQ rKQRmERe1YBy0VTBoxGskBdFnKC 23FGA3RAKqtkBsY0YmDKJf kAuvFsU9j1O2Ra3JK2AHIxnzC2X NTUFSWTwvdGQ+WV56qv94W9OpYf woQdr9DJKiUUU6aPT9jU2w YJUtUSmwa2Q3hJO3X6KdbcAzca2 jk5itKFZxZOmyB97uvBGuf7V2FG XtdSD8OGJrpMcpVwNqiN58 Oyc+BOMzmSfqx9FqAubsv2kmb4w bmYi8UmhuZLCdgmHgxLakTLI8s7 JcQe9cWCQehSG4iLB6uJ2s NsQzJxA7VWocY503DwZcbTNdYsi lU20dU0OudHH+SLUbZti8JFMdiY yvKI2uN9JiVGRlmvbsjGFy xOwnPN3aQLCgrorvSFStfL6wDTQ vP3e8TqTgZkG1ATjxC6LvGQXmcu lgGs64oW6xGvKzFgD9XEgx U1XltjT3WWDegYAyNFghFPU9S30 kz1R8SDFkESQkXMH6lGX3cR9zwW lnbjogbGVmdDsgdmVydGlj MZwwVQgjO688NLYllNhsUzLlOIc uZyBEYXRlOiAgMTIvMTMvMjAyMz wvdGQ+MXSdSTN6eGpbVBBj gSCeUGspHr8bkZkgxUzdZQ9vNBO sbeslXWBymS1qTBNspPRzkErfUD 1iZHGrpxcxc940WfVaMEM2 ZASmcWZbP7TwsU6rRrFrMRGuNHF tT5MpvFPjCXxdW114AYabSrV2NK YjbcSzJ5EiHHBblNvlAnQ2 p8M8Zu3Pg5FmfnvyE3WccJHoTgL rTqdsUYv2C9YwTtqyaII+PC90YW OzGR30ANt1TIJ9pBniOMvw LMUaH6IlfC7hBuHqDGGhXZHjVhy +PHRhYmxlIHdpZHRoPScxMDAlJy PdwSrnQG2bFr7uBNUsMKVt pJnwhTQcXyHmk5hlQEYtEPxlIZ8 lqMmaC2SyoHT9DSOrv8h3Jw10H2 7bT2DfaLA+LAQzmZC4rEZ5 qG6qPdXnVzJ8BLniA241AlXraVF cLpkvw6kgm8cnhWv6UaX3LHKgkv IhuCisYMY8q7YxRw64K66b IHdpZHRoPSIxNSUiIHZhbGlnbj0 naO5vPo9+ODIquTD4lAI7pT6zZq EnPkL1KPnwU836ThLyiPZf Saxaf5ppo1ntoMe0FyMsQABnngI maEkeTKV2o2UyCg98Z4AndVpan3 RaAct5ze30yORyd5Y8vCN2 F8WjXAQfjrhqhLCedXkyTO9lBHD gxhlnGQVhxT1cVYLhI5r4FmUjFh M9OZfrM2ClprB7VZZvgETc HCJjhWFGcU7xruspv9atubnuCmQ kGVPbHNe5FZi1ORLnwFphMlNiXC A9EoZ7IKI2sQCoaQ5ojYrj snnrmO3eExm+PPC7tDFmxGQHBF9 lOjwvdGQ+RDDbJXH0tErgLXeuJQ EtfB1gLHUyU6g4DdYsIxW7 NTuvU9HhshH7BJMwsRZgUVIcfJX AhN6fgjxsm0mifcciWeLsECOkGH n6RBd8PGKxhPfpPdHzSVQ3 LrY5IYB5iVQxqT7vqWdfxicezJ8 wOyc+JxenqEswPQW3TJx1W5MzVp v7VUJbcBztUD2vnJAjITbf Wz5knQtrjSscIB6gGDNikucvu00 0TxBzn5olXMOiqBGsPHflDZP7U6 8cj6E1YRGmBAErKMP2dYS7 qU4alDhnoqzkxCLzhDvssrRyrMo lTDnrRKxqP148WACtzOynYkPlDH x2Z1UtWiz1LKRnvDdrKC0m pXMbIEscTo8khQfskMvsQF4aMZZ scgasv136IrXcf8abCGSbiWVoHE kzSLQ0K58ga2B1ESWmUYCn HBU1kPQ5xF9xrCaejcixwBRnwDh upfZhuEvkYZngAHaxO708WPUgfO ppJcRpgUp8R3JpQrb3PJSu uKyuIS1vhMPpXRdcHx7poRtrjPo gXQ8jAZIwhzudd031IeGcp8qoHK IjmZFpVJbySWF4H48ei8I3 VJDeUYIkAGN8iHS9mU7vyZawtij gbGVmdDsgdmVydGljYWwtYWxpZ2 46IHRvcDsnPlBhdGllbnQg TZszVXe7B3JoBlpzkAT+RG51GLT jZY75xBOmcOPjr1qdwVz6MsPyRH InFRW9pJjgIJuno0StVVDq H75asNHiu8B0WRDnjMsdpFAtByL tvHX8xQ2oGXeibcpiw4geaqnsLv jqu7phld71aD28H82mBYgc ZXEnNMNlLOOgWUKfbJvlfq5xmD2 wIi8+UJGmoPM9sRK9hH8mUQFcFt M3WOwmV207EcWctKMcYtwv b8qos0mheJi7NkI9WRRyxqFvsKv nDDC1k9XsIi86G74sTQkwJIZrXN HrUJKnASIwzUnhts5cqA7j Ii8+PMYspEQ7zCU3sU7uNvYoRqC 7YKxjJ106SbDreICgNpfdU56zY3 JvdXA+SJDlFyx5VOEejGql UW6yfJXoUMezBi9mKHC0JeBjWcX cMJofD7ZxOXFkbyqpgtynnMB3GH EaTUYarL47Vy2hqLsmHXQm kKRRdV5xiyqxz3unmivdVaRwIWF kIDq8ICu6OUBsaEtmNwUyXVS5Iw P2XJX5qZNzhP9xxGgqpuyc rU8vJ5EaDROtfhukQu25qN9jWkP zYkC3IDuhIrk+TVVMTEVOUywgUk RDZUDXFKDGGUeOJlW5Z5Gu Kfo1BPRrkKeqPE3axDMsXJlfHq9 mnCrniMlmLA5hTABxihbaOUHdlX 0fTNVmuLCnuCeqOG6cSDJz cwswb162YrYpGIF3ICGcaWSyA4F lcB8bRlSpZNNxQAWfC3ZawBLyAH vvS684QZrkNmP5CMNqktLw R6QuEZOjiXzbWfW2e2Y8Fq7iFI3 aFu3rBBp9RH15FG37xFOul1N9aD G7Y7TfYTRnnccftpgsdQN2 ISMyHWFqxG17eXNcISbpWo8lq8J 9k001VTUeERHwzP02Az4cpWlvTL GwqECJxQ3wjikbw7mbsejg IbGhQVFaWZe0TFq6APSvtVhpXsI oZXN9FvU9CAK4sHRjkE2wbJzyeq ntoK2cLzt+MzcgWWVhcnM8 X3PtLhc3ETKsgBvvYE7myBJbKOo dQz7gqLxxwOjqGX9oPNVnxnjnMX LhsZ9kJIRxdWLmsWupLS5c HBSgqzlop883GfNeZCW8VSPcmLQ eO8XysN8gNxHdEEYtCHZoC6VlkJ OmEGnbL493BHlxAkJ7DJCn eiVkB5CtPRDomSvcTvU1h8B0Qh0 TCU5WZOK0J3RlBzb1KQUaiNleIJ 5ieKWsUZfgNg9nrHzijPdr AJ0yFMFjhjbrTDNsnQ8zUTPajHO aiOjxTU9vRMVkcuuvt280YmTeYS E4KKWrsQJxX5CoqM0dNjYw PKCiOSLpG2WrnHAlPZkxP901QEl zSlE1ODSgdpAsU5EmENJsrZlfQp F5o9Y6Nm8VLWN3txKlslye I9L4jNR0iVCykSlsqKA+KZ95qd3 2X5YrNqgoZyg3JGVhNRR6rLQ6jT 2aFVGuTUkwu8C1bSS2C3Yj csNrfz8ap9xcFYBrZMofL36lfXZ wp5C3NBJhdVQ3MWImyMeiWyCxfB 93Oyc+GLBldQzqj5LoYwmm t4fjk9mlsRu3LcQhTHYatkEkuPh pBEG7i3ItRx51O92fIKzvOSGvPZ UqFEJhDQBvuSkecf8aiV0x Ii8+QHUhyRB8fEH9qN8iQvWhWjX 1APdcJ382VwUjzJSlNffrf1gfl4 ttvQl7WwPmYRHwvuZqwFsh AHJ5a4WoXa47M4TmkZlpl2ZnEze 5ee66nSGjc8U5tXF7V6TjMDHahp szxJTziOhjBB0fDDDydrez QKRqtX3wFLIgL2k1ZxKzRoI3ZWw dU0LpmcQ0YHVomJNzWFAxcUCZrB 8bjjxuu9vjxckjQsXjIQHc MBw9CNg3WRCvdMfjBsSbQCH2YyU 0JRG6jKVuoD2cfGhhzrpsgZ5nTw c+MUz9w0mdjLMcGG2dsUE0 MQ55SP10cPBqg9N4wQZ7B0NaTQS mwotzlpwyeHU4NVOgUUVdpV07Yz 1bnNwrYl1yKSKkJAG4ETSf yMDiH3TgpV9kBqIoJROzHLCbJ7B lvUDjWBlkU860QRvaQmD1PNYuzq EcQ5SiWRWcgUqjOlU9x7F2 Bl9LZW13PA57JH83dPLtm3X8dRI 8M4KaIAIqspkkeycutDI9OFJoJR OiiX50Rr6scBaaXw7zSOOd SYL3GGDnjAYhD8SqoG9xHqGsHCD cJHYqI6NmpZAhYZreW314ZZuqRy D3BOTvvnRdP0DsCDVmnFho ZhI3t9S1Cv4XKx92PB76UK89kMC ze1N8eFY6D1LvZZTjhnbgaqybkB U9BAXhSAOzbM88Gs1heUrl Ud2vKEVwOOT5LOOtuHZqN0PejD2 xQpWeWWOyYLKmO5LejEJsPYoyB9 17ERgfElT6UOAeqzTuM2Io BUZefFzrGkW7r0T2Gf3XXCpxwex 9S0XqUgjhbDQ+KF81XLDwIJ76aU TfeCWvg2hsdMy4LaQuZIEr IHN (more content not included)... Normal [facility] ED Clinical Summaryon 2022 ED Clinical Summary [facility] ? Urgent Care [address] [place] [address] Clinical Summary PERSON INFORMATION Name: MICHAEL RAMON Age: 37 Years Sex: FEMALE : 1985 MRN: Acct#: Visit Reason: Medical screening exam; [facility] F/U - RIGHT FOOT INJURY Arrival: 02/19/2023 12:55:41 Discharge: 02/19/2023 13:43:00 LOS: 000 00:48 Check In: 02/19/2023 12:55:41 Checkout: 02/19/2023 13:43:00 Address: [address] [place] [id number] PCP: Thu Baldwin DO PROVIDER INFORMATION Provider Role Assigned Unassigned Mati Bell PA-C ED PA 02/19/2023 13:00:25 Danna Valerie MA ED Nurse 02/19/2023 13:03:24 VITALS INFORMATION [...] verbalizes understanding of instructions given Comment: Normal [facility] ED Patient Summaryon 023 ED Patient Summary [facility] ? Urgent Care [address] [place], [place] [id number] PATIENT DISCHARGE INSTRUCTIONS Patient Information Name: MICHAEL RAMON Age: 37 Years Date of : 1985 Reason For Visit: Medical screening exam; [facility] F/U - RIGHT FOOT INJURY Arrival Time: 02/19/2023 12:55:41 Primary Care Physician: Thu Baldwin DO Attending Physician: Mati Bell PA-C Comment: Patient Education With: Address: When: Return to this practice Comments: Apr 24 at NOON Medication Information: The exam and treatment you received today in the [facility] Emergency Department were for an urgent problem and are not intended as complete care. It is important for you to follow up with a doctor, nurse practitioner, or physician?s contract administrative assistant for ongoing care. If your [...] so we can reach you if necessary. [facility] Emergency Department has provided you with a complete list of medications post discharge. Please inform your perlite grinder/provider of your visit and for further instruction [...] (S90.31XA) Hallux rigidus (M20.20) Medical screening exam ([id number]) If you received any narcotics, sedation, or [...] documents Reason for Visit: Medical Screening Exam. [facility] F/U. Allergies: Substance Reaction Symptoms Type [...] how to (more content not included)... Normal [facility] Urgent Care Note- Provideron 02-19-2023 Urgent Care Note- Provider Patient: MICHAEL RAMON Age: 37 years Sex: FEMALE : 1985 Associated Diagnoses: Contusion of right foot; Hallux rigidus Author: Mati Bell PA-C Basic Information Additional information: Chief Complaint from Nursing Triage Note : Chief Complaint 02/19/2023 13:13 EST Chief Complaint Medical Screening Exam. [facility] F/U. . History of Present Illness OCCUPATIONAL HEALTH FOLLOW-UP Date of injury: 08/26/2019 Claim #: [id number] Employer: [employer] Mechanism of Injury: She was moving boxes of celery when one fell onto the top of her right foot. 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 FCCarey demonstrated she will not be able to [...] History Medical history: Resolved Lower back pain ([id number]): Resolved.. Surgical history: Lumbar epidural steroid injection ([id number]) on more content not included)... Normal [facility] Urgent Care Recordon 023 Urgent Care Record [facility] ? Urgent Care [address] [place] [address] PATIENT DISCHARGE INSTRUCTIONS Patient Information Name: MICHAEL RAMON Age: 37 Years Date of : 1985 Reason For Visit: Medical screening exam; [facility] F/U - RIGHT FOOT INJURY Arrival Time: 02/19/2023 12:55:41 Primary Care Physician: Thu Baldwin DO Attending Physician: Mati Bell PA-C Comment: Visit Diagnosis: Diagnoses This Visit Contusion of right foot (S90.31XA) Hallux rigidus (M20.20) Medical screening exam ([id number]) If you received any narcotics, sedation, or [...] and treatment you received today in the [facility] Urgent Care were for an urgent problem and are not intended as complete care. It is important for you to follow up with a doctor, nurse practitioner, or physician?s contract administrative assistant for ongoing care. If your [...] so we can reach you if necessary. [facility] Urgent Care has provided you with a complete list of medications post discharge. Please inform your perlite grinder/provider of your visit and for further instruction [...] NO Strep Throat (more content not included)... [facility] Coding Summaryon 01-28-2023 Coding Summary HTMLBase 64 FaqzyzjrHFh5wFp+PGhlYWQ+PE1 DWRKtP23qkWFqfH7iK1RLZPtIUk ptFFSINLiDIuHqkeHtPS3ptHOyJ XJu IC8+DU3mEYNhTfecuSTbc7A0kPW 0K70zri3cRKtzmXV8VTUpXuQril vra0deeIp1BLqxPcceVnBh VKQjjA04DLB2fI80Da32mTBeqNY cw1pfmMa5ZwGuZJJfPFW4uScwCV trp3TpDBZyW35koWBgk8C5 KRAixZuqySVeCwOqnDO4vI8zHYs vkpscf5dgvplpZjg0bn98uHEup6 V9tHG4A3DvxrJ1TWCxmVZw HublwRUKwS5nlkqfn1muraxtJmZ cWBDoQYu3PUm0FLSqoJedFaIzKI 58PVI5NVWpsjUuB5FyABLw aJzuSwJ6z6W5Qg6YX9CLHvsyF6K NTUFSWTwvdGQ+IV84tv03P2FoUr biDft9SVNuMNK1dDK3qT6o WIUzOPbff9W8xWT4X1VolqZjjp0 nk3blMBRdLVuhE02orLUlp9J7KO HwuMO2BCAsxVmcKzRlfY43 Oyc+JJTnhHwnv9BcNhlys9tbb6j tzCk4KxzyHQTthzCkfWtsUIL6e4 RdWg0qVNPjiRO1wOI1zL6j ThGoVjR3XFncA704NyMleWOxEel jL80kA6RqmUF+WFFtQyn0CEUbdU orVE5zR0KnHUHhwsijuIIv rYarGX2tTPMyxljwOLVasE3nJET tG4f7PsYlNnI5GAuuL2QtTYFbjb foGc62dI1hCcHnMqV2IXjg N9MdpmA1VIFwwRUtHTkmLJW8E55 mz4N5MNNgERYfAQB1vIX5aN1rdD lnbjogbGVmdDsgdmVydGlj DHfbHDhtJ171VWRteDdoYrZiRSt uZyBEYXRlOiAgMTEvMjEvMjAyMz wvdGQ+KSLhRXN7nVjjZUAv uGMmQXfnHx1xrXglbLtgON9tGMH dlbqrYWVyoB9uTVLulAZdjQkbNH 3wHICaildji425QtDcIPJ2 EYNvcBBwM6CxbQ8rZmNkQLMzQMQ lL9IfsDLpSErjI011JCqtFrO2ID MzueCeZ2GgGHLcaUkuMjU2 e2D6Ln4Ft3QjkfwkF1FymJLlQtU fYrxqISw2B5IzAkpgmYF+PC90YW JsIT72DJm9RFY8dCncZIdc ESWwM7YjnU7dNkHkHHHaOXUkFxc +PHRhYmxlIHdpZHRoPScxMDAlJy OgiOtiOV0lSj9lDJIpXREt tUtkcHZmXpOad3fmCESeBSdlDS0 lcMerU3WaiNX1PJEof3n9Cj35B6 0qA2EpeNO+ZBAtwZG5hQT0 eL3wXpSaSxE4FDceQ888OxGhsRD hJkcqp3mnf6kewMo7WvP4WRQkef MavAwyQDK4s8AjQq86V28q IHdpZHRoPSIxNSUiIHZhbGlnbj0 urD7rIi4+WKDkaMP4dEH6uA8sYb KbNsT0FJkiQ635WaBsvWGq Yqzpb2mhe6nxzSd1FtGmBWHocpN ssKqjAXF2y0WtOh19N0JufRwqj4 TuNyn0hd31uWAmf1Z3gIP6 Y8ReGLWnmevwxLDqrUrsGQ7pUOF xnzmsOVKhnA1iKQZhY5u3YtPaIx J4YDboW4AxrnX5JNIneUUy UVBkuKDMrO4oiiqsw2rqewbxCgC iTPBvETc6KId7LWMrhNegZsGzOO D6HjD7TYQ5sADdoA8ztDjf iptghG6lMps+CSS7gPTxqFFHCZ9 lOjwvdGQ+OBWxBNU3nTqjXVbqBI UjlD9iKNKzR0m7DwWuDkZ5 DNkrP6BsecG5DPUrsKEbXTJtbKB IzP0isntsz3lshebqMjGlFAOaKJ r9AGv6VOXneVmjDhRiKAF2 TiX7UZE1mYFylZ5luSxcantoyS1 wOyc+PdvuxOmrVRH4EHd0V5MlJu u4IRKudXkwUK8zqTYgKXwa La5fsVjcbImtSX3kCXHuspdkc94 2KcLkr4cbSEYppLWdANdyDWX3X8 7tj8T0XJTjZECjVOG8sZL1 lG7kcQwldbvaqZZzxNxawoPtcRd zKFtwEFreT865MDTsbPhrLqRxJO w6F0LpYmz8YVGvnUghGN4l vPUwHUfiQh4rmYjkqPqrGL5lYQT clamcg585PkWzc6ahKBKjiKZvPU lkIHQ6D52xu8J7MJAgQTPo ZZE4fTD8pI5egGdfyjodbXHbwQg btpLjgAzmRPkvXYynU517XSQapU niIfWnsYe2O8AaZcu2FGTl xIalLW5grHJiJDywZg1gwRwodFr aRX6uVUVwhensu891IxPjk1vaPY DmkPPhNDihQBW5N11gk1M6 BWNsRLCxDRD5wSM1nX3cwXzvtrl gbGVmdDsgdmVydGljYWwtYWxpZ2 46IHRvcDsnPlBhdGllbnQg KYhmJEe5Y9NoQoahgPB+BL21TMF iYR72mORapZXap3iqxKz3JvJjWV KkLBD9yXdyFVazp1OjGZXk M79miOVxo1I3OVJeuKbswRQaTpC btEY4wA2zHSxnpeltr7gimkbvCv sjw7zciu29wY53N55wJQxn MDUhQQDwWIFpRRMqrYhipq8lvN5 wIi8+FNUazKD3rJI2aA3rNDFcBg E3TNyiX494BtZhqBHuCivl d0xjf5bgvJx4WnM7QNTsdrArkBq xEFQ1b5ViNo98T71cTWwzIHRnIK HbURFoVTAjvVxtyh9tlU5f Ii8+AWPafFW8wNU6gD0tMxBvBtY 3VKnmR429IxLzmDPbGvprN16jM6 JvdXA+OPZyKyi5NXZraTog CU2bsVOgAWezZl8fSRF8BcJzWkM cETueQ3OsBFNrzfkjxxepqKV6PQ TyGEKiuY69Us0woFxkKMEx fDVEpK6yzwlqd0gszdljZqHoSRZ tMVz4ISt3RKSvbWrqBkQiRCP6Er L7OIE4uJCnaG2leNrdtidk zN6wC7JeQIZcqekyKh45wY6cLkK tYdO8FXsrEyk+TVVMTEVOUywgUk GLZPXBWLSFTQqMGqP5G3Ir Dfc9HSYnkXujPB3imIEkCIcoKj6 iqFkfwDqkAK2qPCRldbfzVAIsaG 7nYKPwaJCrrXgfIA9fZSDd hdxio385OmZmNAU6NBFndOMoC0T fmK1sXgQzKVRiRXKlH6QuiBOqGF yjE789GXkhDrN2FNGatuVs C0WhIVOikHalJuP3q3S9Ij8vWW1 rQe3sVWt1UP37MO58kHWjf9H8eK C4F8IuRFKiuitehfpdvMI3 RTZtENMqeD87tGVnFTysIj7zn9K 4h809NWZjPUQklQ43Az0dmUbuTN PhtUDHcA5qbsrzq0ohoxmg YiXmPOWuTFu2ZVo6VDLeqTmbMyD jXHZ2VtC0UZZ1rEAgyA7fqYngtc dlvQ7rRhb+MzcgWWVhcnM8 I4NtIww6UEXywTskNX1tiJAbJCm gRh9nnKoqzZufLZ6aDUJxtpfwVS EocL0tTZVbrYCsxNzgEG7o JPWghayyt656AgZfUSZ2GVAjaEI cN0WxrG3uLpDlQINaOFYaQ3EgwU NpJNtgE593ATbuItI5HXIo jmLhY3PdHZJxaTdgYvR0h7W8Ea6 TGV2IOUY5T1MpWje7RCHfuDelUI 0zvAReZQeoAx3evTjiwMtg AY4lHWUebypnPIFpkR6qMVIcdTI wgMjeDL5eLSVaryalr837ZvXwZG A6LUPsqLIrH1IldP9bAqZs MAZlLCUpH8YlbWDgITbnQ139TRn aAmY3NJQgiuHvN1QkAXJohTspEe G4l5Q0Oz4HMXfnrHE+PC90 di78V5AeZokqZlu4WZPnDPS3uYO 7sC1iINKoQIgly8P6hTN9A9Znnp Wqmh3dw9mmVPXqNAjrQ22s hKExd8T8ODNesOZ3MHNndTboIsB miK09Sfp+LFHxkWixv9XsQqfcr1 rmr2fcvZy3BiQyYJClkeTw gMvyUSD8t4JgWj67D44iFHshLDK vTGDqATCuEKVogXnlcv5ymH7xFx 8+IQVbbYE2nUF5tI4eDzKy LjE1MGylU107LdUkuPBlWbibu0n xo8hneVs8XxRzWKOrjqUstFbiPB Y6c2GxHw91G0UvfYxqz6He Vzv6ci83iIQyl1I8qFH7E1InOYF aqqxyvEZmnIusXQ0uVAPmlozhJX TmuO8yGJAfO7y3OoBaOtR5 NVtiE2BdxdJ5SJVqhFApKEJrdDG BfW6chffpr3lgvcsxEtToQMJrMC c4HZb6WQPffRarWtEcKBB8 TfU8NYV0lHVtkZ6rfCyojenyzC4 wOyc+JOl3k1cmfPDdET7qaRZ8LJ 50UA50xJNhg5P7yAI2V5Ll EICdkpmyeivlhSD0GUYrTAXakT3 2Dx4umUlmFi1kKJDnVIK5IGGqkO VnP4JywL6bQrNfYISsKGJj N1KctAFrDLzjC671XPldIjT8LXG smiBwN2XvFMNuyJdlRdO5g1N9Lj 1ZAS60SV67IS75oJNnb4D9 sEO7I6NfBRVtivpeubinxDO3AYS dILJgbX20Fh3qsDckQp3rLKGeNO A3UZIszYWtD1RiyO1kNtGo KUFiJSUnO2WxdUOuEBhpN411ACr oEiD4PDNdlyNrL3WuBPCttLmrDe R5s6N8Va8DCv04EV51BK12 zZHos8Z4mWL0G6TpHNOhbevcyde izUS9LMHuVFJerI35Xk6cvLbyAk 2dLXIaINX4PPCaiTXbL8Hz kO2kIrUvVVYjEQOmH1LctCGaBYe iM973SPtlUgG4BBCwuzSyQ0OkDN JnqRbaTaJ9t9C4Wy4HGHxc xqk0W3JkDexdxFI+DU58FZXzCM8 8uRMziNUxv1wyrRt3CxFgXSDkUE L1pBctYAmtz9McHNHzX25l bGF (more content not included)... [facility] Coding Summary HTMLBase 64 UpqnpovbDQk4rIq+PGhlYWQ+PE1 KKGRwS89adUYvfX0wR6YAPGxBIg ltQTNGXGuEVfBmpkAaJH7ygADoX XJu IC8+LS5iBDDrEyuotQSqb3V5kID 5C22iho7bNSvujEL4DKCfWjBfbs flc4ytjIa8GJxgFqheOeWx IJAzwE10FLM3eR39Ag66mDTwlNE ly8oaxWl6XyGnAUUzKVW0sAgsEX yvg3JoWRCqH79nmJEey3E9 ZHPmtAevaRUsOxOkvNE7tH4wLTm utmwfs1wxmhhzAns0nk10cVQeg9 K9nYG7G5NskwC2QHSjsQLo OiidvILLuW9bghgcg6gtwgnsQyE aYRHfCKr5GFx3REBvtMsdKnNdYQ 63BSO3EFAqxnHdO7JmQYBw rAprSoY3a1M9Ze3IU9ZOKaueX1X NTUFSWTwvdGQ+NT12ya49T2IhUn igFce3ORPkCBE4bTG2mT2d CSJpXLdzb6X2aRE8X7AytxXtrm4 ci3ujJKWuNLffW66yzQOmb0W3RO TevPD1SFTotAqxZuPciU61 Oyc+TBEniAfyv6TlFdgzf1chi2c rrTx5FzubDYVrvvGhxUydYMB4a6 AyXx6tKTDnyGD5rRW7hZ3g RpKrGjD2ZWhxA058NpGpkGOkCjx bW51qD6PuzYJ+RPTdJjt0KRJdnX jhQE5uT8JwKDIkezdeoZXo cZqxTG5vYVXaryumRZZryS5zGRX bB3c6TqEpOvL9OLcgB9PwOIAeyr unCs13dB7hOjIrRyZ6LNsq D2BdvlG7NCAhjEIeXRbaFYB0M58 mo3B5NTAySWSvAUF2rMC7gO2eoC lnbjogbGVmdDsgdmVydGlj YTihABumO595JUPmdEjbGtKxEAt uZyBEYXRlOiAgMTEvMjEvMjAyMz wvdGQ+HSGoIET3hUkrPOLx mTXrJRyhCy3mgZfzoWhjNG9qXPJ jwngfZMHqoO4mYIYnsHYhwAuyHK 1nJUNcpednf912ExThQUS3 RVXfrPJyD6OfhS9lUiEmPNJxOPY bH4WprRPlDMiyB158FHdfUpO8IO FsirRxQ8NyHAJcuNpwMpA4 h8U4Ct6So5UnngwrL3QnvADaYfZ bGjyzBWs7T6SfAjesiQN+PC90YW PkVQ93UYj8FTC3oOxhVFam HOZiW9YizP1rImYfQFXuBAQoGcf +PHRhYmxlIHdpZHRoPScxMDAlJy UesLvtYU8hUf9fBMVuDOAa hXqvpXIiQpPaq0hxAGYhUZhdKZ3 rsXboU1RidQB8QNPzb2s8Bb03L8 4hC8UncYS+OWRjqVD0bNA8 qV3ePwGkXcO9LQvdB926ZzIsjQW fCnnwh8oqe9klmHb9UxZ3OUVaan KboYpsLSE1l9TmCt35J34h IHdpZHRoPSIxNSUiIHZhbGlnbj0 qfK1rLi8+HOPlkFA1wEM2gP8iLv UvBfW3DUscZ870ZdAsaMKu Ubqxm1vbh2rxgEc7QeAsAGWidfY gsElnIQU6i4BoDv59F6ZviLbie7 NcOit2fk13qXCjz2Y9xLJ8 T0WrSMWnqqxizYEogUfmPL7pHOV qorkkQFEhpK1qTPViI5s8ZvYrXa I9VCliZ3MbdlB9NTVucOZo BOCidDSJgC0bhjakx0tksbieXoS mQADrWMd6HGn4XCKibDumUhHgRP E5RcN1YPH8lNArfQ9dmUfa spukeG5eFwe+OKT5nFEjsOYKOL4 lOjwvdGQ+LOJpBED4lOveLKtuVS SohG3zGSDoC0t8IgQhBbG8 SToqF0XrydN0GZEzjMIiNHVqvOS KuD6avdtav9ayulfmBbRnNBRaCI v8AKj5EWRtqNciIqNrRKQ4 OmM1JHZ1kDPkhH6lbAswxgnrpD4 wOyc+EiotlHyuWUM5UKe8C7MpGf v8UEGhaHeuHA2kyOMcFKry Ms1cxZriqLymSF9uBSRhpusdg64 4YzZku0ijKBKwgANlQKzmADR7Q1 1je2E3EIYtPRVxUCP6lOY5 aX7pcJtjandzwATnbDdvruIkqAf qTEemQHhqS653MCAseIboEnBaIT l1S6DkNvc0CQKgdGzoQX6u dAExWLjsWy8czXiszXbhYX6lZVP rmtsdv451PoYsi3jsJRRtmXZiNS moZNI6N12tn4R5WKUkISYd NPW8eEC0yY3quBuhblbirAHbiKy fxdMzxXglSUjcIYtbZ613TAIrgJ wwKfMrmBs8O6CmQvx8TJRo uJdmNQ1dwYSoPBgdCp1ldVydzUe gLQ1fZGNqkkffn392YgApn6lrDH TqxPPiKJsiLDJ6G00fl9Q4 LAAzLNGsHBC8vXH7bJ2teWoiulk gbGVmdDsgdmVydGljYWwtYWxpZ2 46IHRvcDsnPlBhdGllbnQg LIebBAw2G3MhSrtsmEH+NY16PAL vAT08wPFefQXir9bxfKu2DjSrMB YaGJG9iMikKJvsx6LdQIYe J42beJPhz4H4IWFrxQxhvXQlXwW qqCU9eH3dTDzbrmefo9wcvuehEn omq4ialu48lV70V26zZRfi SHRvYBOuCJOlTSNjrHmoni5gyG7 wIi8+IIJmfDK2jCT4eD8iVIYnGs F1GCbfA055KqQgbDGiEmtk f2iiq1lhfBl9VnJ2EORcplPxaHj fNYI8h4IjHq83R93fTKxqQCUiLU MnEYZvALBmbOapwd4jiE7j Ii8+RENfcYG4mFT4aI3wWfVbHjA 7FTjjC184LhOhsIDhCvxvJ25sE4 JvdXA+BVIuPxh5KCQfsPik WC9erHWiBVaxGt3iGHI4MrBdDsK tQVpxE6EgGAIyzrmzretyaVQ3ZE XeRIUifB64Vf0laHbtZJWz pMRKdG6fqeuvy0segcrnFqOrUDI cANb3ZMl1EKRcsSirPbQxIVK1Wi B9JMY6zFDoaK0njFszmbzz sA7hG5MeYFLtcwgtNs49zY6zFkH kSdJ6QKgaXgb+TVVMTEVOUywgUk QZXFDZEDASKHpRUxN1F0Od Jyr0OZKkgFxaYG8dbJJtSLcfTd1 trXydfKkfIG5fZDMigrvrSWRgbK 0hSVQtxPKrrRlfIP4uXKBx glaqp899HtShWOG4UNOgqUFhK4B veZ4jFpKuCMIsGRQkL7DykNTtBE eiW194ZDpkDcH1BBKsilFn T6BpOPRoqTjfOfI9g8G3Kv5aTH3 sZh1aLOq0UH29BP38mQWuh5J9dG P7D5KvWCVsrygnfljcmSE2 LKGdLOGxmU94cWDbEVhpJc4lz4H 7h456RDMwYRKglA69Qn4mkBmnBM OkvTRCvK5zzzrdk5tvpocc OgKzTZBmUZm5MVt8LCDoiEjtYjP xUSA7IdT2RRG3uKVteN3ykGrbjy ryfM6xJvj+MzcgWWVhcnM8 E6WuCei4WWQueWyeFG6isUYrBKy rKm3cjQmclSkcQL3wFHOnplroIA UmcQ9hAUNcsHPbrLquQK2p BBTqwxnab629UlDrFWB5OEAgbDV oV7FrjL7nZvGqHJQhTLNgB6JrmS KuNDbhI916AIidNuY9IYCa ixTdC3LpIZAgoJilEsV8k1A0Ez4 FBD1DEVF8O4RbRrq2THUmvVrlHQ 4fzVHpEQrjLl5myRkjrSnb CS2wOSLfavanTELfgW7bJLEouOG klBihAU6mVJMmjehft663MwYuLG P6DVTyrBApN2XmaP2ySnRm IUDqSPQdL7TrdWZmVBjdC088XSg pUlA2WOHmcuFtX3YnTPJulZulSh F8u5Q8Fj0BRAxeZ6WqL5Jk eTwvdGQ+UN37lf21U2ZyCysqGci 8FCHjNBA8pSM4qF5eSAZbLKlmf8 G0oSB4W8HlmmRdyg2ek3eg VRJtVAkqW31vkKZhv0V2QWIqoXV 4SWEucVvsDbAetW04Axl+PGNvbG afs8IeAvmkd3jdb3efdUp6 DiFpTTVzajYscLirSEQ1j0HpPw9 9U27lGMzzBUMwBRBoHFUlJMQxpV cuif8nuN1aHq1+PGNvbCB3 wMH0qE2xEnDgTuP0EBzsK777MsD qwFFlKhlkf1sth7naoDg1YtBlKJ SigaYepWifGDU4y8RpNv85 H3RfeDjjf4JdNza2lu94kWWpi0T 8cZM5O2PjPIYkhgocwRMauXfzRP 5uEXIjqjkkIFRlqK1wFMGg F3q8UjHgQjM1NEnqL9XhrdM2KLZ mkUDrXLEzfUVBuQ1xbemxs3axde wgTkWfHNVoYDm5PXp7UCVg pRevVcPyPKV2ZtL8GAY6gPOybG5 xsSkzldgleW7aPvd+PZi0y0kyxF IlJU4oaBE6YX17XN12hMFy f0W2mTM7T2EaRIXiyqbieqngnGQ 6QRZaQDPudM39Gz9hhZrsCh9rLN HuRHR6TRGlqVVhT7SjcY6t HvKtHLTyHSCaT9EjsCMqYKwfB31 4TZaoVsI7IOAvtxLqQ2EvADGoxC qqIcA7v9P9Gg6LHT40YK44 SA70iLZvc6X8fCJ9J1UuRVYymxc bcoxbhAB2HTFgJHJocK34Ld9akE wuTi7zYTClYEH3LHWbrBKk Z5CprK0gFmBdTBVpXOKnU4LtgGR kWMotT725HOqeNyP0HTTqfjYhW7 LfNKAmdJeyCtJ4z6F2Qd4H Rh01BH34TC97xJXjc8K1fRU0X0I dJTSmhrmnajnbjKF2LKTzZYQpsC 74Ez3qcVcoMy1eXWGjRWF1 TWPkrTQnP5WtfV9lAtVcOOHzZHF kE6TksNXvIMpiB440PFpzRhU8ZB IwpjEuC5QpEGEuzAyoSlR3 e2F0Mq4ZWUtkwhz9L9CzItwrbBI +XV47IUQsKI56aHWfnIXll0jooS l7HyQwLRRuRCA3kDtuAKja b3J (more content not included)... [facility] Consent Formson 01-27-2023 Consent Forms [id number][email or web address] 1 03-29-2022 Progress Note - Provider [id number]#[email or web address] [facility] Coding Summaryon 01-24-2023 Coding Summary HTMLBase 64 DuhrvctfHAe1nDv+PGhlYWQ+PE1 NFGOnH97ydSKsbH0gH9VNEOhRCk tyKLYWKVbKAnHwyxYcAV5gbNFfT XJu IC8+PU6lRDGjTtiynKQxp2R7qDZ 1D44qhh5wYRmlnKP3HVKqJxCyfw smn3eqaRq8LKxyFrmnMsTo PMTxoW53EZT4xV44Tq76dZEuzRE ut3vpsWm7XiAlFSUzPRY7mRxeDS xuc8NdRKXiE18qnKGhh1Q7 MDLapRvujYGpMjFsmAH9uP4fRJx zsrpde3xfalumSwe7hi00nPGdd3 I0mAH9V4OrsoA8ENJsbKVa VzxxnUNAsU2rcymft3lnpyifMuN dSDQkEFc8JJa3TGUbdKwvVxZzCS 58FCJ5LIDdtsJnM3RuEJOk fOdeDsI0q2U6Dc4AT0SWBspiC3R NTUFSWTwvdGQ+UH42xc86U3BmVj qxTrm9RAMyJGS4cXU6pK3z KYIzIKzja5M4qRL0A8KujjGibs4 am0rcFPSxCHciO51ytUSdk5M0MY KrcYY8CHFrrWxcNsXbdO91 Oyc+VVXcyLozh9VtKhdtc5vtp7z skZu2QwisDDSqtlWyjOfkCEK2g5 JdCb4zTWPfgJZ2qMD3yR6v GcXzEuU4GEltN700AaJjzWLhByc oP23bB3QhkGP+UTEgJfy4ASDbzQ lkMQ3zH6PgXTEhbgellWZu mYgfLA1aLUXtjdraRDWksF8bLLC wC1o6KjCqDhR7UIhuU5AsVIHxiu yxZz77jX4tJqRhZdL1BYfi B2YtsmC6PUAtrTYrRGauGLA7E62 dd2T1VXGgUBZyQYF4qIJ2gW6hlE lnbjogbGVmdDsgdmVydGlj WTqcJKugN943BBYceAnoNqMwKJj uZyBEYXRlOiAgMTEvMTcvMjAyMz wvdGQ+BHFcYOQ6vYjsBTFi zSNoACxfNd5nbJtfkAeiRL5zVJV dkwkrUYXncU3jAPQzqEPlpFbbAK 1uBJGgedhan186RaMhFCV4 ADEtyGGvZ9ZwgA7gIlAnCDYxLSO bQ2TxtXXqKSfeV675OTczDfF2UV JfctZbW4LzBXCfaYcmNxD1 x7U6Nf5Xh4ZkcrtrJ6AgnQVeBfR uRzhyAAs9W1GoHkjhkVB+PC90YW CrAS99LAv7OPF1jDulLZze HZZpH9GlsU1lVyCpHLSvHLCkJji +PHRhYmxlIHdpZHRoPScxMDAlJy AimBtzQS6rQp9rSDEkLUVe aSvruHXiKbXxq2rqDVBrLZvrBY4 rkFihY2DndYX5IKNjr3f0Uu62H1 1xY4AyxIL+XVInvLH8wGH6 sD9aYxZrQaM4YBmvT504HuVvxTI tYqabu9ohe4yejEc1SfT4PIAimu JanYpcRJC7d5ElFg25L14u IHdpZHRoPSIxNSUiIHZhbGlnbj0 izI4zAx2+GWGlcQG7zUS9eL1oCu JnEuB7HTndD891HqAyxTDr Boqrm8stm1efjUf7PzYjPEPvakL ceZuiUVM0y5HuRo46Y8GyhInic9 SkZin0ge83uJEqk2E3bIV6 R6MhXLJictjaaUEswSnnEA5nOSS tjcelPKGfrR3nNNLiW6l3NeTxNa Z1MFxvD4KykxA4MZCeyFGi GNMqfORTsN2pnzgxd8dnhspcEpE mHCLxFYk6CCk1ZJYrvEgbLdQtEQ H3SbN6YZV6xRDrqV4mdNbp ineohD2aEfr+SOD7hHZxoYKBRT7 lOjwvdGQ+FGEjXMZ9mUonWYdhDY XvrQ1mRAKfN6i1QlZhTaK2 GSurM0ApvoY8IQWeiCCnPWGkbOR XvV2lxfqdw2lelbvmBtRrOSJvWX a3BOz2WREaiBtnLjYuWEB8 NcZ4WPP7sPZtoB5ndXqiouohsZ2 wOyc+ElrngOguPBS1GWy5J7TeJf q6HUPqqTnvCL6nrLQwFFzb Lk2yqAeplLbpRI2zXHMgihtad21 5LaTbw2huGNJacUOtDQvdYGK0I1 5rp5A3PFTsIMWtHBJ2hVJ9 cV9cwVhbuymgcFWrvCrkzmFsnQs aPXxwNNikW621VIAawLqtCjVzOC o4B0JfFtm0HGNmaNesYQ8e sYMwTAccWc8fvFqkpKrzDS3jMRV lolxfy171YeMvc4wgLKZavQZiID qdAPA9X64yy7X1KDVgJJEu RND4bWG1fK5dnIqzfkigtVHltXz ihcKyuAdxXFeqQMwbQ914IJGvtA cfJyLwbRz8X2AzPxp9LFWd oNihKY0waJAkDSpjLl0hoAddfWx bWB8zOGGdawwub001ZvKkk5gmZQ RujONuGCfpXRK1Q50zm3F0 TLXnRTDnXFP3oHG3yE7gpImipek gbGVmdDsgdmVydGljYWwtYWxpZ2 46IHRvcDsnPlBhdGllbnQg PIipFGa5I9SvBuxncAW+GB07HMQ kDS77dBGmdWJqc9yexSb3ZlVfIY LiCRW9oIyiXHsph0CfIQUg P89jxZTbx8U5MEMotSfhaRPnHgT flSV6sS6uCFrkcmbrz9nmnmwzCb ybp2enws90cN32T74hASzs WWGzTIUjFFUtDILlzXaadu2tcZ5 wIi8+AICsuKY6yJK1gG5dRAZoBd T8EWshA184IhWwwOShScgr v6fbm1eslCy9ItD7BTWpqiMmuAi kSZT0a5KmUd72Z28aMYkjBJItYG EbEPFgKLFvxDdbqa5qbM3e Ii8+AELyuNR3cRW9gK6aCuHxXpS 7EIqiO739SuVbgYKbDjbcQ49iO7 JvdXA+GLRcFdd5GOKefIij SH3tgNRwJLbeGf9jOCW1KuOjNoN gMApyR9GzBQXyyporxnxktES1AY QrFFXgtO24Uz9gzLnkBPOk lSXKyN9abedai5eamkqlHeLtLBO nUIz9FDl0TDJbdVxbZrAvWEF2Xy N2DTF9vVPsdG6ztIogmsgm sR2oA5GiYSJeibawCe30kQ8gRwU fCeK1TJilZof+TVVMTEVOUywgUk FAVRKQHTVGBVkQCkP4F2Ov Vjz4XVWnbNmaHB4tdCPlKOmoTn1 spBdnoMizTL7xJCJzhcbrBAFewG 0rBWHvfGUmcWxcIP0bZXOg hvpwe371LjOjVSH3VBTftVTfK7A qiB5pHqRcQCMdKEXiO8ZxgSHcDF xcE247COlaQwZ3OYFdllKm O2HnPQWpkRwsWiZ7x1E6Qs8bYT1 fVb6rZIx5TS22NZ99bBZad6G5yP Y9B3WsMOMyjqxhuniulPJ4 VPJsKRRbtS05aXQbCLgaWb5he0V 4c618AUBcVTQfaV17Fg6agCfgBB EbsWRMdV0zoqxtr7hbensa RfJeLFLkTCn7LQq3LOLxtDgkOgQ bKPG6MkT1PMR8wZGqfG4oqSecvj exzU6qObh+MzcgWWVhcnM8 X1DnXrj4KQAbsTwtZC3jhOPrKJe yTy7noVvogVrqFV7bOVNcnxsbPO PeyG6pCEXfePBsyKboDO7o MLXnrwcln507AjTbROC0FVBlfET cX9KxiS9uTcXlOOXxIVOxY2NhdE VrCGvqI340ZWthGjF4MLTk etMiJ5ZyFMXtmWluYxQ2i9K8Mp8 TJR0XFQK1R5KzOmf3VYRdqCfzJD 3nbVOnAPdaZo4xqJybsTny QF2rKYLzcavhXNZghI4iTCTotIS ulZdgGC4eHBZymiywn243GhInDJ K1COGlmQYiD7BflG0lOaAr XLAlULHtS4SfoTJtIGsnV976YYv yZfB2SXMkslPmD6FjLWJbtFjbHd L7t5Q6Hl0QYHsvrDP+PC90 hs32Y5VzZqsqDyu5OOEdZUM1bLH 3qY1hPUFxTLwwm3M3rLB5E0Uwlm Gkje3fj2hhTJDuZKalP64v tJFpz1I2HFTkuOA3EEMrqPxuSdG yaC82Ywn+TKWmkSaqn1IlFgelm2 ikg2qkjEt4YjGyUTXlvkMl cMluBYI8l9CyBy06H18aKUuqOLS dRDVtDPYwPEBtoBwkrz4zpI8oEk 8+UPLttSH4rHN4nT0yShFw UzX1ZAjhA581OvXyqHJrCmsru2s wa3ikiTt0ClJmJRLyceRjjRyyUZ C2w3YgVy42D3HqjSbeg8Lb Wkc4fs98dMIrm3D7lFU3F8PpCGC appusjFDiaTkkBY0rBHCsfhryQC BkzO1vXZNlJ9n3PpSzIdU5 JNfsH9KyfsZ5PFIvkAGlJXKvuKJ WbL1quxkfq8aberwkKjNuDOAqWS g5HMj8FGEtiInqMsTgAYY6 RnL2ATE7dPDgsZ2lfObasdiveG9 wOyc+QBe1l2gqqLXtNM4laVO2UW 49IY16rLIyp1H1rSG4P8Lo PQHpuotemjmqqAN4WKNbDPLhdI9 2Ll6xgUnxSj7eTRHzNWY3MLMnmX TuT7ZahK4hTqZfBMHxCGFj N1ArtMDwMYspM928EGfvGnB2RSB jpdIrX2ZtCPIeoOojTjA9e8Q0Tm 6HNM93EY84OW66iCEie3Y6 lJS7A6YmXJMtgfumlwfwfQR4BPU pFXXhoT00Hc9roYprEw8kXWRwBB G5XDZapSHuU7VoqL7wVwBy NPVvCUHvU1ZtgAIfLTylR079PKb mAjP7WQMqjaEyU8OuXZPqhGiaSm C3x5S4Ew4MPm89DX72MT16 oBXxo9N1zJK4O6DrGWWzfpswwmf sfKH0XYNxGQRzwY13Qn5qsCojJy 8mHTMaTKD6WZIzeLCqY5Tj nQ9kInZuEUPjSFDiV3IpqPJqCZx gB334COfhWsU3ROSqoaRaA2CzPF PaiVitWbY6u3J8Ym2MGCkm lpu7U8KmGlpyxOT+QQ49WCAhGP5 8lYIlfIXuu3uttTl6AcPmVBEhUQ L9fGnfVQpxx0KzWVPbC93t [facility] (more content not included)... Normal [facility] Inpatient Patient Summaryon 01-24-2023 Inpatient Patient Summary [facility] [address] [place] [address] Patient Discharge Instructions Name: MICHAEL RAMON : 1985 Patient Address: [address] [place] [address] Primary Care Provider: Name: Thu Baldwin DO After you are discharged if you find you have any questions, please, call [phone] ext [phone] to speak to a nurse. Discharge Diagnosis: Prescription Information: If you have been given a prescription for narcotics, seek immediate medical attention if you have any difficulty breathing or any sudden status changes such as confusion and sleepiness. If you or anyone you know is experiencing suicidal thoughts, mental health, alcohol and/or drug addiction problems; contact the [facility] 30/09 Crisis Hotline -Text 4HECI bp [id number]. If you received any narcotics, sedation, or [...] business decisions or sign any legal documents [facility] would like to thank you [...] and Prevention S (more content not included)... [facility] MAGR Intraoperative Recordon 01-24-2023 MAGR Intraoperative Record MAGR Intra-Op Record Summary Primary Physician: SAM HERBERT MD Finalized Date/Time: 01/24/23 12:15:52 Pt. Name: MICHAEL RAMONLINA /Sex: 1985 FEMALE Med Rec #: [id number] Physician: SAM HERBERT MD Financial #: [id number] Pt. Type: D Room/Bed: / Admit/Disch: 01/24/23 [...] 2 Entry 3 Case Attendee Thaddeus MORGAN, GiulianaFreida Valentin RN, Barbara RN Role Performed Toll Bridge Attendant Toll Bridge Attendant Toll Bridge Attendant Time In 01/24/23 12:09:00 01/24/23 12:09:00 01/24/23 12:09:00 Time Out 01/24/23 12:16:00 01/24/23 12:16:00 01/24/23 12:16:00 Procedure EPIDURAL STEROID INJ EPIDURAL STEROID INJ EPIDURAL STEROID INJ TRANSFORAMINAL TRANSFORAMINAL TRANSFORAMINAL LUMB(Right) LUMB(Right) LUMB(Right) Last Modified By: Ami Baker RN, Barbara RN Long, Barbara RN 01/24/23 12:15:48 01/24/23 12:15:48 01/24/23 12:15:48 Entry 4 Entry 5 Entry 6 Case Attendee Miguelangel, Samreen Thorne, Georgette Palomino, Valerie MERCADO GEOLOGICAL SAMPLE TESTER Role Performed Toll Bridge Attendant Medical Delivery Driver Scrub Personnel Time In 01/24/23 12:09:00 01/24/23 [...] Time 01/24/23 12:10:00 (more content not included)... [facility] MAGR Preoperative Recordon 1 03-26-2022 MAGR Preoperative Record MAGR Pre-Op Record Summary Primary Physician: SAM HERBERT MD Finalized Date/Time: 01/24/23 12:06:06 Pt. Name: MICHAEL RAMON /Sex: 1985 FEMALE Med Rec #: [id number] Physician: SAM HERBERT MD Financial #: [id number] Pt. Type: D Room/Bed: / Admit/Disch: 01/24/23 [...] Signed By: Ami Baker RN 01/24/23 12:06 [facility] POCT Glucose Levelon 023 Glucose [Mass/Vol] 130 mg/dL High 74-118 [facility] Comment on above: Performed By: #### [id number] #### [facility] (DEFAULT) [address] [place] [address] Patient Handouton 01-24-2023 Patient Handout Normal [facility] ED Clinical Summaryon 2022 ED Clinical Summary [facility] ? Urgent Care [address] [place], [place] [id number] Clinical Summary PERSON INFORMATION Name: MICHAEL RAMON Age: 37 Years Sex: FEMALE : 1985 MRN: Acct#: Visit Reason: Medical screening exam; [facility] F/U - RT FOOT INJURY Arrival: 01/22/2023 16:05:44 Discharge: 01/22/2023 17:00:00 LOS: 000 00:55 Check In: 01/22/2023 16:05:44 Checkout: 01/22/2023 17:00:00 Address: [address] [place] [id number] PCP: Thu Baldwin DO PROVIDER INFORMATION Provider Role Assigned Unassigned Catarina Meyers STRAND FORMING MACHINE OPERATOR Nurse 01/22/2023 16:08:55 Mati Bell PA-C ED [...] verbalizes understanding of instructions given Comment: Normal [facility] ED Patient Summaryon 023 ED Patient Summary [facility] ? Urgent Care [address] [place], [place] [id number] PATIENT DISCHARGE INSTRUCTIONS Patient Information Name: MICHAEL RAMON Age: 37 Years Date of : 1985 Reason For Visit: Medical screening exam; [facility] F/U - RT FOOT INJURY Arrival Time: 01/22/2023 16:05:44 Primary Care Physician: Thu Baldwin DO Attending Physician: Mati Bell PA-C Comment: Patient Education With: Address: When: Return to this practice Comments: 04/08/23 at 3 p.m. Medication Information: The exam and treatment you received today in the [facility] Emergency Department were for an urgent problem and are not intended as complete care. It is important for you to follow up with a doctor, nurse practitioner, or physician?s contract administrative assistant for ongoing care. If your [...] so we can reach you if necessary. [facility] Emergency Department has provided you with a complete list of medications post discharge. Please inform your perlite grinder/provider of your visit and for further instruction [...] (S90.31XA) Hallux rigidus (M20.20) Medical screening exam ([id number]) Sciatica (M54.30) If you received any narcotics, [...] sign any legal documents Reason for Visit: [facility] F/u appt Allergies: Substance Reaction Symptoms [...] Infection Yes (more content not included)... Normal [facility] Urgent Care Note- Provideron 01-22-2023 Urgent Care Note- Provider Patient: MICHAEL RAMON Age: 37 years Sex: FEMALE : 1985 Associated Diagnoses: Contusion of right foot; Hallux rigidus Author: Mati Bell PA-C History of Present Illness OCCUPATIONAL HEALTH FOLLOW-UP Date of injury: 08/26/2019 Claim #: [id number] Employer: [employer] Mechanism of Injury: She was moving boxes of celery when one fell onto the top of her right foot. 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 On 08/26/19 she was moving boxes of [employer] when a box fell off of the cart and landed on the top of her right foot. She was initially on light duty per [employer]'s telehealth visit. When she was not [...] 80...: 1 mL, 0 mL/hr, Local Infiltration, It Investment/Portfolio Manager Prescriptions Prescribed Lyrica 50 mg oral capsule: [...] History Medical history: Resolved Lower back pain ([id number]): Resolved.. Surgical history: Epidural block ([id number]) on 03/06/2022 at 36 Years. Comments: 03/06/2022 10:33 Dana Conklin MA RIGHT TRANSFORAMINAL L4 AND (more content not included)... Normal [facility] Urgent Care Recordon 023 Urgent Care Record [facility] ? Urgent Care [address] [id number] PATIENT DISCHARGE INSTRUCTIONS Patient Information Name: MICHAEL RAMON Age: 37 Years Date of : 1985 Reason For Visit: Medical screening exam; [facility] F/U - RT FOOT INJURY Arrival Time: 01/22/2023 16:05:44 Primary Care Physician: Thu Baldwin DO Attending Physician: Mati Bell PA-C Comment: Visit Diagnosis: Diagnoses This Visit Contusion of right foot (S90.31XA) Hallux rigidus (M20.20) Medical screening exam ([id number]) Sciatica (M54.30) If you received any narcotics, [...] and treatment you received today in the [facility] Care were for an urgent problem and are not intended as complete care. It is important for you to follow up with a doctor, nurse practitioner, or physician?s contract administrative assistant for ongoing care. If your [...] so we can reach you if necessary. [facility] Urgent Care has provided you with a complete list of medications post discharge. Please inform your perlite grinder/provider of your visit and for further instruction [...] for Disease Control and Prevention November 2013 [facility] Coding Summaryon 01-21-2023 Coding Summary HTMLBase 64 CpvuapseKGa1sEn+PGhlYWQ+PE1 PTVUfY93tdAAzbR2uW4LAFYvQUa ciMZRTIRcUXsJcbeWeFE4tgAAeR XJu IC8+RB6hDZCyBsbwqCIae7L1dTT 7R75wza8hDRohmTA8POArKiXanu unu0htxJx3SOogFsaiVlQc KYVpaV13CPL7xQ98Lz39yMMocUE ry2socEd0BhMlVFBjYFY6hOrwKG epg4TpJDIpQ08viAIvx4X0 MJBvoFdcmIJdIbUkdFS6pT0zTUt vgegxa4ocnrogTwr2uo66gRPya9 Y1kVM6P7YvbvC2WSJpnFRa EfhslGQBoO7awkmtj8lyzyyrEzH rQEZxDBd0URu1NGFmyCfnCbXxPQ 34LPE3IZXnzaXvQ5PgZINd nRzmUeC3u8F7Kd8AQ4ORNfhvY4W NTUFSWTwvdGQ+QE67es21F5MuQl cbXdz3CXBhCKN3bGM6sF4q LCYoCXwug7R6gBC2O2ZvafCdnl8 vq3viIOFcMZxzF33xpOGew1T9HI RcjTO4XLNbaZlfExUsgX43 Oyc+EAMsuHnke0MxTiuir3aqw8z guDg3NxrpZBDrueApyNnfMHP7p9 HjVd6aXPVjjUR3yAQ6aE3b DkUpFoN5TNraL045TvFefSGfWob tL68rX9RmaSB+COXiFzf9HXBpsQ oeXL5oV9TfWKVyqwikaCXu eQpjYG2fKFJdfykmVGQzgY6uFKH zO0a8IaEbGtV5JTjlS2LaTCDqmi itMg15bR6oWuWcJbF8UOjp M3PhjgG0LYYdlVKpAGkpZSV0W60 az5B1CZWmCOAuKQL0tNH8qX5tgE lnbjogbGVmdDsgdmVydGlj YHsvTJsnP991ZEFvoKzzIiCgDGb uZyBEYXRlOiAgMTEvMTQvMjAyMz wvdGQ+GPJeAGZ1pLjsAIEq gFPxAElfOy1hwUqlkVggEN1gWUO fhqxoMFTpaS7pSJTroHEjzDayLD 0cGYOlegsip193SmRjEOE3 FNSciZJlK1JvaJ1tXyXpADFfASJ lT3XkuCNdFTvuW826QMvyXgX6DU OjkhBhM9JjEDFwmBhxCmM7 s5D8Mn9Se4LvbuqaA4TbeWRuSfT xOssxGNl7W2AcKidzbOP+PC90YW BpAI73CKk5LUG8kBluFQrg TCUyW7LbiP3vYtEtVVHcHFQyAkh +PHRhYmxlIHdpZHRoPScxMDAlJy YlzFbcZI6aAc1gOBEkHBIq bHmuiRDmOiDeh3eiPVSvEHpkEQ4 fmMyaG2ZdgND6EEPlo9d3Oe10D6 5hX7MjzNJ+PQGjhRX5tDN8 oE8fVjDnAkL6GCufU972BsBgdOE sFvglc3eiv1qtuXh4UbM6MQFajc KonTfpPHX7f9OgNk06I36j IHdpZHRoPSIxNSUiIHZhbGlnbj0 fdM5gCe5+NNCvmRB2xBP7bJ4rJz RsDeB9JBdrV321FnGbxCWr Kfxja0txw8nqbUe5YoXpOZXwlaT cxIjoXZY3q5YcNz37W4JzyOvwz6 UmLkb8of96hYLqw9U7aLZ5 I9ZxOIQqwkycnKXptFclCO9rAYT pxczpDJCjkN9nLAXrX2v1KbYcWi Z6UAmcP6UnveV6DXGveTCr DCTjyGIGjU7uvglmt3eajkvsZfP iHTHaVUp3RMy9SGFraOquEaMsFL R2GuQ6KJT8aAPzkM9phXhh avjooP7oKhz+NOI4uXVqjJGXQL7 lOjwvdGQ+TTJkANC2zAhzAMbfSA PrrZ6uPJDxM9x7PdPaToG8 WKfsZ5QafpR3QHJjhJRdYZLkiOU CbV9owitca9onvbnsXbElRSSqMD j8GAg8SAXlwMuiJlBwZYZ0 JpR5VEV9oODefX9urFclgmhzuQ4 wOyc+IdrnuXouBAQ1AGr0F8PqMe e9SRZjkVkoEO8krXWlYUca Uq5faZgbsSpxYG6lKCIcppdis89 7LgMzs0dqPYHzbXWbCEixYHW5J9 9lg1V8HHFcSCBdAFH8pCF6 kO4xbTeeghrfsEAkiBceowYlbYz oKAwrHTuvV844JYRtzYalUgOdKH k0S1GaZzp3SOUuaTfbUJ9q zUVdQBhhRy7krRmrmEufMU7bWSX lmtead555FoMkg9ynBQDhpXUyIR qiEOD3C27zl6I0OZQoPIXl BBY4cLM3yZ0ptIwizliphATweAm jfeGdvAbpMVegBEsfL664OZXewK lbCaHavRs9J1RnLsb6NTRy fCpnDD9cnSTeVDrsTf7coNzvfWy lNM7cFHQnvexfc288TtThi8nzCE SvfJWuDDbjGQF6R50wf9W5 KFJkOSIjGXV2rWX3pM4rpEwdrgf gbGVmdDsgdmVydGljYWwtYWxpZ2 46IHRvcDsnPlBhdGllbnQg ZAlrTJp8M5AbApgqsUP+AX95VHB kFX70bHSzdTJkm1sdoIz1AhHgKZ GjLKJ6sNgxDUfwr9IsJVQc E41qlKZbp5J6UCPcpQhtmAMsTpG uuTY3lH6hTGkzccchn7kjzdxaNc pwo2edus29pS25V92pURxe BRSfCOPoQBWfQUNikYalkb0mlO2 wIi8+TXRepLA6zIS9tT3dMAYbSv W4CDodU219EbDmyEWsJqrn e5nju7vtuBv5IsF9SZKkubOhwLl lAJK8d4FlEi87D93qAXhhSFDaXX HeWIXiLBIxeAcvik4lkH2b Ii8+RQHsiOX6qFB8yH6dJrPaTdI 1VBxxG317FwMsdJOaVeueQ54nC6 JvdXA+TPZqHta6KSMlkCxu AY9qnDFdPPkdGy2bKIQ9WtPwUdI bBNeeX9JiAOCxqssywprptOT8NR HdWIOwtN72Er9dqIboRWTg eBHXkW1hmxwna5lmcblxAaVpSKX lGDt5DTy2BDUruYrwMlMuMXC2Vh A0FDI5sNEevW9qmYosjqkx nG7xA3AwFHZlcnfkOd11sY2mIdL eRvA7PLvqAyg+TVVMTEVOUywgUk BRJJCMHBPQUKiMMhK3E7Qj Isq7AHSneGttOV7edLLnBKwzTi9 ibQevmVlgUF8cRGMhtvqfSJOamA 6gSGAkjYLhnJibYO6qOAHn cpmor468GoDkDRI8ZPSzsSCqZ9M mhI3eXrPjUINyCOAdH7MubBGmBV dgK140VHbtUsF1DJRzeaFl M4CjEFGxyKzeXoY7a8W9Ag5lPX7 pPs3tNPa2TQ17SP09tJJhl8E6yI B1M1NfWGIxucxlarsfoHS6 WTRyZLWtnL67wBRqHLowSs4jl0U 7z811YRDnETVypY23Zp8nmGraBL LwzGDYdO3wnkcsm1lkhhrq SgLdXEScFCm0UPb8WKVnlKkiZeA fCYN2FcJ6JCZ2zBJryA9vaVmneg iiiT7lWsh+MzcgWWVhcnM8 N1RmJgl1LIYqlIbbKD3amUHgIBw eNo8grNmqmUfnJJ3cLJNssrpoBJ SwpB3wBBGpaXErzMyoXV1y GUTyxybdr105ZwWrGVF8QNJjiMG gF2CavM8uDaZbHWYwOSIlF1VlaR PcZWrmM866HQegSiO0XVWg wjLhI2UcPJKamTedOhY7o2H1Vj7 SBD6CGAG4K7KoUwo6NRQvhCslPB 8jiRCgJCfeSl6qpOmtjOxc SR7kGDSifbimFBGriG7aEYOhtCA ulMasOC0xSNPorxkku769GlCzCF C2PYYukIEiW3EexI3lGjEu PBJnTQIrP4VrhKHnIOjrW448AMi mNtU0POYnziTiK7VlXXFjoFktXj Y7n5R1Fy7PAEV1dwXlerbp X2Y4rMO0nTPkxLdsbOB+JO56oi6 0Z5VyCoumBzs1HWBnTIP3qSV6wO 7jMINvMXfvv7A3lZO6T7Hv ioAzak3pv8thDWZvCMpkK88mjJP wz4B1LKSltXZ9RDEgcRaoKiOswJ 93Oyc+QTFibXgws5WwVwbj t0fex5sncXp7GcOtSPYtqmOtbPh jGAA2x7QmKn82G52aYWcjVIIwVR XdCOZrLMSwpXmscd0atG0a Ii8+PLQstYH8hAT2zV9jIdUgOzA 6BExgF129BoUhuPXuRdzgz7iyh9 jyiBs9EmRcERFmpfSoaIkz YQM1t6FaSp29M4TvqQdwb0ZqVwe 0sz77fSQlw9D8vAQ7B3ZsTSSikx ckzWMsdGexSR9xJTVsxfpj IODcbM0fPOTzN2w0RjBqLiT2LMs tK9FujsR2EBZduQSyTKWmiDVKaI 7lnctbn0gfwpciYfYyHJLf NMu6RDx4KEDbrSmtBsUaABT8CkW 5TQO0wKQgmN9fvCusfjcbvV4pBl c+HZl7q3fgeWXkCH0dhEF0 GI80GR39aEGxs7E6fCZ0G5RvYCR dnntbzntjsXZ3RJHhBIIulQ17Nm 0ytJpeXs4wMJVfZPQ6GWVi wQVbS7GsyZ6pVqTlACCgUMCbW0Y mhWYiABgvT211FYxeYjF1EONobh EpI8SvSIHzcAruRnR9g3S2 Vu0XPQ67AN15CD65rTLyk8L4dVA 4Y5AkCQKoxwlkswagxBG2NGTpRF GblI06Jh7jgNgqTu6jLQCd OTQ9YILgjZOgR5UwtT3dQuZlXQT xXZQtL8HshMNeNZisX979QKsvXm O7LWEwioWnB4EgXIOidLee RzR9i6X8Aq4EHn38HU79NI85uFU nw3Q5yRR6O6ZvQIGskmjojskvhY N4RRVzEVYsjN36Wf0lxOqv Wl5iDTYpJME7XDXljSSuP2CglO2 iUmMvOXKsFXOdL6EtlFXdCKtfQ3 06WTybDgI2NZUmmjUgI1Tn IYTxcCfiJpQ2n1N3Eo1AXPghqkg 5F9GrWrpxvWQ+RD98IVRaBV25gM DxcHDmd6xzoOc7NtXuYNEf IHN (more content not included)... [facility] Progress Note - Nurseon 01-08 Progress Note - Nurse Pt called for refi ll on Diclofenac into bree Simon compliant with OV [Electronically Signed on: 01/20/2023 10:07 EST] Josefa Schuster LPN [Verified on: 01/20/2023 10:07 EST] Josefa Schuster PRIVATE DUTY RN [facility] Coding Summaryon 01-14-2023 Coding Summary HTMLBase 64 FvkdqzkwSEm6vPi+PGhlYWQ+PE1 HTYAcA91jrLOjbV7dR7CANKrPYt jrRQGGIOuYRdAlerQiJS6fgRYxN XJu IC8+VM3vFZZfScgkyONmi2D0zSV 5A04mkp7cZUxosWX9XBToYwEuxv kiy9istNv1YZtjUptvNsAw AKGngS76DGB7wL38Zn00hZPyoNP xr4hmrYv6DpHgDACdIYE7jPacDK gzi7StRKAbF83hpKOff7W9 HLIygTqaiYGkVwMwxZB6yY7zBKd ursofs9fpqbguZby1kr69wARrm2 Q8rJE1L8GvidM1JDVjiTZi KdudcJNNhY7tsmcmr3nqeyflLdT wBYWjBAg6MUw1ECNpjAuaJwOePZ 33JDW3FDPovzCiJ7HcAAKw sBpmBrP0j6N0Dm4LO2YXJlfbV6Q NTUFSWTwvdGQ+BL64kt75Y4WrRr ccHem4YPChRWI3vWB3hK1u AOAbSMggh6P0iMR6D5WpwnOflz2 lb7zzNIUzCFhkX36dcKEpi5M8YW OdbCX9EMAvpMuhEyEpgJ38 Oyc+ASVnxVrma7GdUjrqm2eej7g vvFj9QgwuOSQnpyXfgJpgHKS5e6 UaAw9gDRJjbUJ7gYD2bM2z ShSpAxJ0BNfdW454DpBdgJLcOay xW85wV5OyzFX+JRSlRjm8THEouR plCN4cN7QpELOkxcivtXVr eVreRX2mQPMzigdpXGOinK2sOSV rW8v4ZvQaKhH5AXgoK0WwBQNjnv rxCs32tX5wMdJbCpX3KOsh O9NuidC4RNKemGJxVElsSAR3U64 fl5W9MTRbACJjBHO1eRY8tX9cwB lnbjogbGVmdDsgdmVydGlj DUqgKSgeK540TEUwvHtiYdXpUAt uZyBEYXRlOiAgMTEvMDcvMjAyMz wvdGQ+QRQxEMX3hJesIIUb uJAdQEwgYw6lzNfctAboCA6bBMO aoftcRHPpiG6mCEIprQNecXkkCC 3tVMCdaoamn347HkIwXBD9 KJFddJZoF2HhtG6xVsEzZSOmNOP aM2YkvPCiPFdlE407WYvaWzS1UP NwkzLjH6ZyPJQphUriIwJ9 k5O1Qz0Ww5NjevppS6BaeURoCuH sBnkjVPc9I9ViGagvqWH+PC90YW AiNG23NNk7OGN1wVarSWof BPNcV2BblA4nRdIdXIFzHDEvWkd +PHRhYmxlIHdpZHRoPScxMDAlJy DoeTalCS3hCa8tLVJgNFPy qZihcKFbKjDwk5mzXTOhYVmdDM5 ddInyJ2UflYK4RCCgv6h5Fl34L0 0uM5GnyUN+RKVziHU4qPA1 rP7mXvSiUoH8SKacR883XwNxbIF bNafnv1dvn9eyjKu0EwZ5GOUjug DzvEbwYVG5u0OoYu74J76l IHdpZHRoPSIxNSUiIHZhbGlnbj0 egU2eJa8+OQZitRR0iDE8mP7pCa NfJsS1LEvjG031AhXsmOTm Nbzdt6cie6fdmSq0CrUhFSMzpoS ecVxoVHZ7n9CiVc75A0JpvFsta4 BjFmo3rx80vLLax8N0nOL9 S6BdXAZcxuedmJRdnPquOE7gUFM ivmdhWNTcvP9wCJZoV7y2TrRoJo N5JJptO8EfdeB7QFWxqJNr GVFrnHASlS3crvskz6bmtkidMoP rEYTnHUs1IPt0MNPbhPudPvSwXF S5SrA8IJI5hEYryF4uoFmh fwxhcO2oEjq+AND0nTNhqSZPNT8 lOjwvdGQ+ZXJbAYT1lWvzPQyfDY WyqY0oUWMkZ0d2YrBfNiC3 AIkzJ4UltmB7LJXlnXTdMJYvpJN QsR8qbkwig8kluscyDbOpABRlTO z2TZw7XCNnoZwyEvYePQX6 FiN5SXH5sJDbwZ9blPocnhprqV9 wOyc+VgrgbMawLAM6CHb2T5FoHl e1GVJxfVanTC0fqCEnQYlz Qt4jhKoewSkaWF4uTAXpuiaza11 3WvIcd6dlKASenABkCEvyPOZ5W0 0vf1Z1QSNyRTVfYYF9tUI7 xO6jwMofredtiPZvqCbrmwJwwXj zBQsaCVnoS101DWEjjSanOzXlHZ w2U7YtHii2NMKmwGwtVE4v iLKwKSrfFg0jvZmuwCvbMN5kJQI gljxup251XrGzk2ivXXAmgDVjYO umGFN9C90kh1X4GGAgKASc UUG0wNQ4jI6vsXeguzqzuWIjlSj ighBmtQvpBVzaFRdfQ989QFEifT oeLoLpmRn4G6RjWko3HVAc uCerXC6keMCxOQxfNn2xeEoioOh qMB7eOZOfueyzb438CtDze6hwUA PmpZWgFBitFVA5Q57at1U4 CLYmFTIbNXL3qQF3nY9njEhydwb gbGVmdDsgdmVydGljYWwtYWxpZ2 46IHRvcDsnPlBhdGllbnQg TNexPLi0A8ViYempeAJ+LS85HKS aUA03cAGlkXTjo7ymuLn8BnLxEV IfJQP7aOcaATbse2IcVYGn L68rmSVcv3N9WVTcqCwokDVeHnM spED8fF7cPSxnvnvui4oeyuiyFy esl5fkkl33lH65C03fHOjt CZFbKGLtZPKaQXWiwObuls1soI4 wIi8+GBRlqJN5cFX6cI9bACIgAg L0QFqnY862SmIokPYoEuxq o6uhl6lsvZt0CbH2JXUvcnBzfEb wUZM7i4NsRn89O74pKTukYGFbNR NiZXTnTSErbMaqjr6uuO1g Ii8+IZIjwSX2wZY9tS3mEbGuCiZ 1YXywR771LtEoiLTaGsqjT77aJ6 JvdXA+UMFhHtk9IKXhtDgn WX2ihGDxOTqgSr7sLUF8EdKnIsF oSOpaW2AvYEXqogkuzfszpRK2HJ XcBVVhzG75Ru2qnLuyMXMb kNWNeY4qddyzg0lgmffeNaBgJQD yZUk2IEh0RNSbvWqyBwAoJOL4Wq K8RAW6nGRjpK6euZgbxhnx aT4uC2AjMNIwkgeqJc29jY5sUzN nGgT6HMsdFrl+TVVMTEVOUywgUk BNKCJXTUSSYBkIMkF9J7Eu Nsa8ZYPupTvyOD0wsEJqLZhzQd4 ejUeftPcbLZ6mGSTgyvniTQZfiR 5qDBUswZKgkYufMA6aBVDb gnokt065OzQuDYD8FOTwjFSvK6D unA4fDeCuESXvDFYtK4WcqKNwFR qoT886EUnrMvT6HGCyaaSy B4AtVIIprQjqAuI5w2J8Pt0uYD9 jGq1vWDs1WO64CH09xYEqh6P5sU N9U0BnUXXnqvgpnzrtjFS2 NPIvIIRghJ29lKSpGQnwPf9hi4O 3s031FCApTGEjvR72Hm1ucRtmDF EueYWByK6xpjrgu1knffjt HdMvVTMwEAx5VXo4RTCnfEtcNbU nPTF6ZmP6OMZ0gMRqaU7bdMhqaz yrbY4mNih+MzcgWWVhcnM8 W2DnNvg5GXXhnFpnKB3buTZwFFw pAd5ofZztbPdlPQ0kNBSxjajwXY LglD7yJKPpsUJcvJunVO8u IJDylgark148DjLdRHA7TPYtpUZ aF5GqmX7lVzGdGDKlBEBiW1QwfX LePOwrV338QXbrVsB7NAAy phYbU5OuIBNmtZfeYqH6f6X7Ej8 FML6MEOD8O4TxOti7AZVreXavIL 0voKNyGTfnOr0glNiuqDcs OY4uGRCkggxyWPCrrK0bTAGugMV hzSjcVV6gHYSkmzibo775RgJeWM H4VHBifAKrJ0TmnX3rHeNx WJEvCMZqB6FztDMrCTkhY264VQf jMxO3QKNretOsX2MvRTOzeVgxCy X6z4P1Ko1LCCX0vzDpbmcq T5M3lOP6tCLzxFgriBY+YB46sw2 7J3VhLkbsMvd2FRGsMBZ3tJE1yD 6iQNToPEnpl0E9nWZ7A4Le bzUvbb7sf5ezUQJdQOnpL86qcJT xu7M5FJFvaMO0ZDLhwYqhMmApeJ 93Oyc+NJCofZiip6EnDclg h3klg5uvkQh7OkFkTWUqbqMuhAs vTFL4o1ZsMf71L60uOQmpNOBgFC UzQPKrZEWwnDzjsq8srM9s Ii8+VXVccNJ2dVP2tR3fBbFnTlB 5YKrrF750ZqOswTDkFyyop1ldu1 aneUj6EsSeUCWprdXazVee THA4q7SbKf87D3VmgAltg8ChVhk 6kb42yXMbk3A4iTC7G0LzHXJlmk vdwDNotDuqLZ7qERXunfoz KFWleI0tYNQdK3e5OkXjBiE4FNb gE0NuotR4UVZigNEkROUdhDOLdU 5izxbmo9mvcejvYePxSTHq UUo3MAz6UETdvEtaNeYxVZL5PjU 8QAG5yTQzmH5ckCqgvkjohZ1rDh c+YGn9c2xmpLMeDW4lcDL1 RI21DL42cGZwz4K5gAM0R9NqBBF ppmedbwsipIG4MXNaZBSkcA79Cu 4xaHygUp6yXPZbCGP3DHPi lNKgM7AxzT5zWsFfNMIxOVMxL3T xzFFtMQpvW833CTvnAeQ9RJTihe RrR6SrZVAezGyuBdQ7h0R5 Ls0FWA02QK75RL41jHAvg3L4iSX 7V9NaSHSjjsujqpsjmEK6KMAhKN PzdW12Li5faXchGe6yNLOz HQO2FKLvfIEnT8VbhV4hQjPxFLO rTPXoQ3MhkUTiTKwbH939SQhbZs V7FGLgxuThH8RzREGwyMyt DzJ1f8C4Qe8FSm89OC67KQ22xYK bb6P4xNT2Z0LxJGWqakjactpzyT H3BWMzDHVlrX44Ih2nkLsp Um6iAMArVVV8CRPvcCKtG9LlkD4 oEgGqLVJrZBMsF4BmgSXlSIzpA8 41PVirTmE0HNNpaiZdY8Pn ZIVkgJuaHmA5f7O5Hq7TKNugatv 7V8ZnYrwugXU+JM75MARdPA88nT EckPUrs7bpmUi4VpZaTHLf IHN (more content not included)... [facility] Physical Therapy Noteon Physical Therapy Note [id number]#1.00OTGTIFF [facility] Provider [place] 01-09-2023 Provider Orders [id number]#1.00OTGTIFF [facility] Progress Note - Nurseon 12-09 Progress Note - Nurse Patient called req uesting refill of Lyrica. Patient is compliant. OARRS is reviewed. Order sent to Dr. Sam Herbert for review and approval. [Electronically Signed on: 12/31/2022 14:36 EDT] Giuliana Travis RN [Verified on: 12/31/2022 14:36 EDT] Giuliana Travis RN [facility] Provider [place] 12-30-2022 Provider Orders [id number]#1.00OTGTIFF [facility] Physical Therapy Noteon 12-08 Physical Therapy Note [id number]#1.00OTGTIFF [facility] DECLAN Antinuclear Antibodieson 12-24-2022 Antinuclear Abs, IFA Negative Normal . [facility] Comment on above: Order Comment: STAT FOR UL Result Comment: Nega tive <1:80 Borderline 1:80 Positive >1:80 ICAP nomenclature: AC-0 For more information about Hep-2 cell patterns use ANApatterns.org, the official website for the International Consensus on Antinuclear Antibody (DECLAN) Patterns (ICAP). Performed at: [facility] [id number] [place]: Jared Reeves PhD, Phone: [phone] Performed By: #### P P, PLT #### [facility] [address] Actin smooth muscle IgG Ab [ Units/volume] in SerumOrdered By: Job Martinez on 12-24-2022 Actin smooth muscle IgG Qn (S) 8 Units 0-19 [facility] Comment on above: Negative 0 - 19 Weak positive 20 - 30 Moderate to strong positive >30 Actin Antibodies are found in 52-85% of patients with autoimmune hepatitis or chronic active hepatitis and in 22% of patients with primary biliary cirrhosis. Rualo-2-Glxhhgovwxm Phenotyp max 12-24-2022 Alpha 1 Anti-Trypsin 184 mg/dL Normal 100-188 [facility] Comment on above: Order Comment: STAT FOR UL Performed By: #### P P, PLT #### [facility] [address] Phenotype (P1) MM Normal . [facility] Comment on above: Order Comment: STAT FOR UL Result Comment: Phen otype Population A-1-AT Concentration* [...] used to confirm phenotype. Performed at: - [facility] [id number] [place]: Jared Reeves PhD, Phone: [phone] Performed at: - [facility] [id number] [place]: Janiya Caraballo MD, Phone: [phone] Performed By: #### P P, PLT #### [address] Blood or tissue HFE gene mut ations identification by molecular genetics methodOrdered By: Job Martinez on 12-24-2022 HFE gene targeted mutation analysis [employer] Nom (Bld/Tiss) See comment . [facility] Comment on above: Result:c.845G>A (p.C nb199Aek) - Not Detectedc.187C>G (p.Cdr50Eem) - Not Detectedc.193A>T (p.Tzo39Fdk) - Not DetectedNot associated with increased risk [...] recommended for patientswho are homozygous for c.845G>A (p.Ypr842Zlf) and have yetto experience clinical symptoms.Comments:The most common HFE variants associated with hereditaryhemochromatosis are c.845G>A (p.Lgc271Mzw), c.187C>G(p.Aqq42Jnl), c.193A>T (p.Hmw90Bgb). While patientshomozygous for c.845G>A (p.Hpf861Pwx) are the most likelyto present clinical symptoms, less than 10% developclinically significant iron overload with tissue and organdamage.Genetic counseling is recommended to discuss the potentialclinical implications of positive results, as well asrecommendations for testing family members.Genetic Coordinators are available for health careproviders to discuss results at [phone] ([phone]).Test Details:Three variants analyzed:c.845G>A (p.Smy122Eqe), commonly referred to as C282Yc.187C>G (p.Kuc88Qyo), commonly referred to as H63Dc.193A>T (p.Mpr26Jtb), commonly referred to as L28ASkwjpef/Limitations:DNA Analysis of the HFE gene (NM_000410.4) was [...] was developed and its performancecharacteristics determined by [employer]. It has not beencleared or approved by the Food and Drug Administration.References:Clem BR, Ivan PC, Alireza KV, Steven LW, Angel ;[employer] Liver [employer].Diagnosis and management of hemochromatosis: 2011 practiceguideline by the [employer] the Study ofLiver Diseases. Hepatology. 2011 Sep;54(1):328-43. doi:10.1002/hep.05068. PMID: 05889217; PMCID: [id number].Eliecer G, Regine P, Michael RODRIGUEZ, Haider H, Maxime O,Merlin S, James I, Ranjeet M, Natividad S. [facility] best practiceguidelines for the molecular genetic diagnosis ofhereditary hemochromatosis (HH). Eur J Hum Sobeida. 2016Apr;24(4):479-88. doi: 10.1038/ejhg.2015.128. Epub 2014. PMID: 51672794; PMCID: CHK1944017. Ceruloplasminon 12-24-2022 Ceruloplasmin 35.5 mg/dL Normal 19.0-39.0 [facility] Comment on above: Order Comment: Reaso n for Exam HAMMOND (nonalcoholic steatohepatitis) Result Comment: Perf ormed at: - [facility] [address] [id number] [place]: Jared Reeves PhD, Phone: [phone] PERFORMED BY: [place] [address] PATHOLOGIST GYN PHYSICIAN SINCERE GREENWOOD M.D. Performed By: #### H CBIGM, HCV RX PCR, IGG, HAAB, ALPHA PHEN, HAABT, CERULOP, DECLAN, L-K MICRO, HBSAG, HEMOCHROM, SMAB, MITOM2, HBCAB, HBSAB #### [facility] , #### SLY #### [facility] [address] [place], [place] [id number] [facility] Ferritinon 12-24-2022 Ferritin [Mass/Vol] 92.4 ng/mL Normal 11.0-306.8 [facility] Comment on above: Order Comment: Reaso n for Exam HAMMOND (nonalcoholic steatohepatitis) Result Comment: PERF ORMED BY: [place] [address] PATHOLOGIST GYN PHYSICIAN SINCERE GREENWOOD M.D. Performed By: #### H CBIGM, HCV RX PCR, IGG, HAAB, ALPHA PHEN, HAABT, CERULOP, DECLAN, L-K MICRO, HBSAG, HEMOCHROM, SMAB, MITOM2, HBCAB, HBSAB #### [facility] , #### SLY #### [facility] [address] [place], [place] [address] [place] Ferritin [Mass/volume] in Se rum or PlasmaOrdered By: Imad Asaad on 12-24-2022 Ferritin [Mass/Vol] 92.4 ng/mL 11.0-306.8 [facility] Hep C Ab wRfx to Qnt PCRon 1 Hepatitis C Virus Antibody Non-Reactive Normal Non Reactive [facility] Comment on above: Order Comment: Reaso n for Exam HAMMOND (nonalcoholic steatohepatitis) Performed By: #### H CBIGM, HCV RX PCR, IGG, HAAB, ALPHA PHEN, HAABT, CERULOP, DECLAN, L-K MICRO, HBSAG, HEMOCHROM, SMAB, MITOM2, HBCAB, HBSAB #### [facility] , #### SLY #### [facility] [address] [place] [address] Interpretation Hepatitis C Normal . [facility] Comment on above: Order Comment: Reaso n for Exam HAMMOND (nonalcoholic steatohepatitis) Result Comment: Not infected with HCV unless early or acute infection is suspected (which may be delayed in an immunocompromised individual), or other evidence exists to indicate HCV infection. Performed By: #### H CBIGM, HCV RX PCR, IGG, HAAB, ALPHA PHEN, HAABT, CERULOP, DECLAN, L-K MICRO, HBSAG, HEMOCHROM, SMAB, MITOM2, HBCAB, HBSAB #### [facility] , #### SLY #### [facility] [address] [place] [address] Hepatitis A Antibody IgMon 1 Hepatitis A Antibody IgM Negative Normal Negative [facility] Comment on above: Order Comment: Reaso n for Exam HAMMOND (nonalcoholic steatohepatitis) Performed By: #### H CBIGM, HCV RX PCR, IGG, HAAB, ALPHA PHEN, HAABT, CERULOP, DECLAN, L-K MICRO, HBSAG, HEMOCHROM, SMAB, MITOM2, HBCAB, HBSAB #### [facility] , #### SLY #### [address] Hepatitis A Antibody Totalon 12-24-2022 Hepatitis A Antibody Total Negative Normal Negative [facility] Comment on above: Order Comment: Reaso n [...] total antibody results to IgM (e.g., panel #[id number] HAV Antibody w/ Rfx). Performed By: #### H CBIGM, HCV RX PCR, IGG, HAAB, ALPHA PHEN, HAABT, CERULOP, DECLAN, L-K MICRO, HBSAG, HEMOCHROM, SMAB, MITOM2, HBCAB, HBSAB #### [facility] , #### SLY #### [facility] [address] [place] [address] Hepatitis A virus Ab [Presen ce] in Serum by ImmunoassayOrdered By: Job Martinez on 12-24-2022 HAV Ab IA Ql (S) Negative Negative [facility] Comment on above: Comment: The HAV [...] HAVtotal antibody results to IgM (e.g., panel #[id number] HAVAntibody w/ Rfx). Hepatitis B Core Antibodyon 12-24-2022 Hepatitis B Core Antibody Negative Normal Negative [facility] Comment on above: Order Comment: STAT FOR UL Performed By: #### P P, PLT #### [facility] [address] [id number] [facility] Hepatitis B Core Antibody Ig Mon 12-24-2022 Hepatitis B Core Antibody IgM Negative Normal Negative [facility] Comment on above: Order Comment: Reaso n for Exam HAMMOND (nonalcoholic steatohepatitis) Result Comment: Perf ormed at: CB - [facility] [address] [id number] [place]: Jared Reeves PhD, Phone: [phone] Performed By: #### H CBIGM, HCV RX PCR, IGG, HAAB, ALPHA PHEN, HAABT, CERULOP, DECLAN, L-K MICRO, HBSAG, HEMOCHROM, SMAB, MITOM2, HBCAB, HBSAB #### [facility] , #### SLY #### [facility] [address] [place] [address] Hepatitis B Surface Antibody on 12-24-2022 Hepatitis B Surface Antibody Non-Reactive Normal . [facility] Comment on above: Order Comment: Reaso n for Exam HAMMOND (nonalcoholic steatohepatitis) Result Comment: Non Reactive: Inconsistent with immunity, less than 10 mIU/mL Reactive: Consistent with immunity, greater than 9.9 mIU/mL Performed By: #### H CBIGM, HCV RX PCR, IGG, HAAB, ALPHA PHEN, HAABT, CERULOP, DECLAN, L-K MICRO, HBSAG, HEMOCHROM, SMAB, MITOM2, HBCAB, HBSAB #### [facility] , #### LSY #### [facility] [address] [place] [address] Hepatitis B Surface Antigeno n 12-24-2022 HBsAg Screen Negative Normal Negative [facility] Comment on above: Order Comment: STAT FOR UL Result Comment: PERF ORMED BY: [place] [address] PATHOLOGIST GYN PHYSICIAN SINCERE GREENWOOD M.D. Performed By: #### P P, PLT #### [address] Hepatitis B virus surface Ag [Presence] in Serum or Plasma by ImmunoassayOrdered By: Imad Asaad on 12-24-2022 HBV surface Ag IA Ql Negative Negative [facility] Hepatitis C virus IgG Ab [Pr esence] in Serum or Plasma by ImmunoassayOrdered By: Imad Asaad on 12-24-2022 HCV IgG IA Ql Non-Reactive Non Reactive [facility] Hereditary Hemochromatosis,D NAon 12-24-2022 Hereditary Hemochromatosis Normal . [facility] Comment on above: Order Comment: STAT FOR UL Result Comment: Resu lt: c.845G>A (p.Jzl846Jgp) - Not Detected c.187C>G (p.Bju91Hxx) - Not Detected c.193A>T (p.Skg42Sgd) - Not Detected Not associated with increased [...] for patients who are homozygous for c.845G>A (p.Kvj468Pcf) and have yet to experience clinical symptoms. Comments: The most common HFE variants associated with hereditary hemochromatosis are c.845G>A (p.Jrb741Zyv), c.187C>G (p.Omh13Brv), c.193A>T (p.Fxn75Yqh). While patients homozygous for c.845G>A (p.Pet982Nai) are the most likely to present clinical symptoms, less than 10% develop clinically significant iron overload with tissue and organ damage. Genetic counseling is recommended to discuss the potential clinical implications of positive results, as well as recommendations for testing family members. Genetic Coordinators are available for health care providers to discuss results at [phone] Test Details: Three variants analyzed: c.845G>A (p.Ufn046Iau), commonly referred to as C282Y c.187C>G (p.Obo36Qpy), commonly referred to as H63D c.193A>T (p.Cxc29Ior), commonly referred to as S65C Methods/Limitations: DNA [...] developed and its performance characteristics determined by [employer]. It has not been cleared or approved by the Food and Drug Administration. References: Clem BR, Ivan PC, Alireza KV, Steven LW, Angel ; [employer] Liver [employer]. Diagnosis and management of hemochromatosis: 2011 practice guideline by the [employer] Liver Diseases. Hepatology. 2011 Sep;54(1):328-43. doi: 10.1002/hep.56718. PMID: 23650815; PMCID: JMC9957788. Eliecer G, Regine P, Michael RODRIGUEZ, Haider H, Maxime O, Merlin S, James I, Ranjeet M, Natividad S. [facility] best practice guidelines for the molecular genetic diagnosis of hereditary hemochromatosis (HH). Eur J Hum Sobeida. 2016 Jun;24(4):479-95. doi: 10.1038/ejhg.2015.128. Epub 2014Sep 14. PMID: 37522608; PMCID: DCB8885750. Performed By: #### P P, PLT #### [address] Reviewed by: Paddy Dobbs, PhD Normal . [facility] Comment on above: Order Comment: STAT FOR UL Result Comment: Perf ormed at: TG - [facility] [address] [facility], [place], [place] [id number] [place]: Fransisco Espinosa [facility], Phone: [phone] PERFORMED BY: [place] [address] PATHOLOGIST GYN PHYSICIAN SINCERE GREENWOOD M.D. Performed By: #### P P, PLT #### [address] IgG [Mass/volume] in Serum o r PlasmaOrdered By: Imsonal Martinez on 12-24-2022 IgG [Mass/Vol] 1634 mg/dL 586-1602 [facility] Comment on above: Performed at: [facility] [address] [id number] Director: Jared Reeves PhD, Phone: [phone] Immunoglobulin Chris 3 Immunoglobulin G 1634 mg/dL High 586-1602 [facility] Comment on above: Order Comment: STAT FOR UL Result Comment: Perf ormed at: [facility] [address] [id number] [place]: Jared Reeves PhD, Phone: [phone] Performed By: #### P P, PLT #### [address] Liver-Kidney Microsomal Abon 12-24-2022 Liver-Kidney Microsomal Ab 1.2 Normal 0.0-20.0 [facility] Comment on above: Order Comment: STAT FOR UL Result Comment: Nega tive 0.0 - 20.0 Equivocal 20.1 - 24.9 Positive >24.9 LKM type 1 antibodies are detected in patients with autoimmune hepatitis type 2 and in up to 8% of patients with chronic HCV infection. Performed at: [facility] [address] [address] [place]: Jared Reeves PhD, Phone: [phone] Performed By: #### P P, PLT #### [address] Mitochondrial (M2) Antibodyo n 12-24-2022 Mitochondrial (M2) Antibody 21.8 High 0.0-20.0 [facility] Comment on above: Order Comment: STAT FOR UL Result Comment: Nega tive 0.0 - 20.0 Equivocal 20.1 - 24.9 Positive >24.9 Mitochondrial (M2) Antibodies are found in 90-96% of patients with primary biliary cirrhosis. Performed By: #### P P, PLT #### [address] No Panel InformationOrdered By: Job Martinez on 12-24-2022 Hemochromatosis Note Paddy dobbs, phd . [facility] Comment on above: Performed at: TG - [facility] [employer] [id number] [place], [place] [id number] Director: Fransisco Espinosa [facility], Phone: [phone] Hepatitis A IgM Antibody Negative Negative [facility] Hepatitis B Core IgM Antibody Negative Negative [facility] Comment on above: Performed at: CB - [facility] [employer] [address] [id number] Director: Jared Reeves PhD, Phone: [phone] Hepatitis B Core Total Antibody Negative Negative [facility] Hepatitis C Interpretation See comment . [facility] Comment on above: Not infected with HC V unless early or acute infection issuspected (which may be delayed in an immunocompromisedindividual), or other evidence exists to indicate HCVinfection. Serum nejpm-9-qapnyohbbyw me asurementOrdered By: Job Martinez on 12-24-2022 Alpha 1 antitrypsin [Mass/Vol] 184 mg/dL 100-188 [facility] Serum hepatitis B virus surf deric antibody detectionOrdered By: Imsonal Mratinez on 12-24-2022 HBV surface Ab Ql (S) Non-Reactive . [facility] Comment on above: Non Reactive: Incons istent with immunity, less than 10 mIU/mL Reactive: Consistent with immunity, greater than 9.9 mIU/mL Serum homogeneous pattern an tinuclear antibody (DECLAN) titerOrdered By: Imsonal Martinez on 12-24-2022 Homogenous nuclear Ab pattern (S) [Titer] N/A [facility] Serum mitochondria M2 IgG an tibody assay (units/volume)Ordered By: Imad Asaad on 12-24-2022 Mitochondria M2 IgG Qn (S) 21.8 Units 0.0-20.0 [facility] Comment on above: Negative 0.0 - 20.0 Equivocal 20.1 - 24.9 Positive >24.9Mitochondrial (M2) Antibodies are found in 90-96% ofpatients with primary biliary cirrhosis. Serum nuclear antibody titer Ordered By: Imsonal Martinez on 12-24-2022 Nuclear Ab (S) [Titer] Negative . [facility] Comment on above: Negative <1:80 Borde rline 1:80 Positive >1:80ICAP nomenclature: AC-0For more information about Hep-2 cell patterns useANApatterns.org, the official website for theInternational Consensus on Antinuclear Antibody (DECLAN)Patterns (ICAP).Performed at: [facility] InstituteGoanvs[address] [place], [place] [id number] Director: Jared Reeves PhD, Phone: [phone] Serum or plasma alpha 1 anti trypsin phenotyping identification by immunofixationOrdered By: Job Martinez on 12-24-2022 Alpha 1 antitrypsin phenotyping Immunofixation Nom Mm . [facility] Comment on above: Phenotype Population A-1-AT Concentration* [...] reference. Ranges used to confirm phenotype.Performed at: [facility] Ltd[facility] InstituteYjatah[address] [place], [place] [id number] Director: Jared Reeves PhD, Phone: [phone] at: [facility] [id number] Director: Janiya Caraballo MD, Phone: [phone] Serum or plasma ceruloplasmi n measurement (mass/volume)Ordered By: Job Martinez on 12-24-2022 Ceruloplasmin [Mass/Vol] 35.5 mg/dL 19.0-39.0 [facility] Comment on above: Performed at: [address] [id number] Director: Jared Reeves PhD, Phone: [phone] Serum or plasma lipoprotein a measurement (moles/volume)Ordered By: Job Martinez on 12-24-2022 Lipoprotein a [Moles/Vol] 1.2 Units 0.0-20.0 [facility] Comment on above: Negative 0.0 - 20.0 Equivocal 20.1 - 24.9 Positive >24.9LKM type 1 antibodies are detected in patients withautoimmune hepatitis type 2 and in up to 8% ofpatients with chronic HCV infection.Performed at: - [facility] [id number] Director: Jared Reeves PhD, Phone: [phone] Smooth Muscle Antibodyon Smooth Muscle Antibody 8 Normal 0-19 Th e [facility] Comment on above: Order Comment: STAT FOR UL Result Comment: Nega tive 0 - 19 Weak positive 20 - 30 Moderate to strong positive >30 Actin Antibodies are found in 52-85% of patients with autoimmune hepatitis or chronic active hepatitis and in 22% of patients with primary biliary cirrhosis. Performed By: #### P P, PLT #### [address] Coding Summaryon 12-13-2022 Coding Summary [facility] 64 SsomszcaNHn1pHu+PGhlYWQ+PE1 PDLTcU27wkNXevB7zR3LTLFmGLt gwBFPXAZmJWcIfleXvDW7ctXWbA XJu IC8+XY9hTTMbHyqrcYIqd5N4eJL 6L25fik9uHKoffIU7RECzNcYcuz eaz9jufQk4AUjcCfahKlLu LCQtrZ47JZU2gU91Be01sQBptDQ jb4yioBo9VlHiSBCvKKY7dSxvNN xhg5EeFZCuW19uqNXxz8Q2 SLBesTmedLHoAaMcoLP0oS8vPAf fdswys7gkbfnlQpt5ov51mIEbo2 T7xTG6O0FvneB3EMFfkQJy PhcufSZFyE8bngowf4edvanhKxR oGISjSSt5EJh3NLGmeInpQyHcTW 71MHW2CXOalwHhL3WyYLOp lUjgIvX3q1B8Ol3ZP9BXUmxzJ2N NTUFSWTwvdGQ+TQ94ie85R3NzSr goFbo8FCXsNYI5aDY0bY4l JVHiBMdvi4Z8nIB8Q1DncoVgmo3 yh4sdNFFjKMlxC29xeCFqh4D5JN ZxkSB8XYBrjVujCvRrlS69 Oyc+EZMsvHvid2DdIxonq4gcc9y pvUs1YvwhOYJxhzJdqAwiMTO9n0 SdVy0fDPCjaLF5uTY0aY2o ZgErMpK4TQorB095FbUzzVSrNsr bN60lP0PdeVQ+QXXsBpk6XJXffW nqAO1oN9JnJDBxsgkzsSTn hUppFI2sJEWdzjweKTHfoY4hQPA wK4q1PkOlFtF3UKizL5QnTGPfam wwVx90gB9aOhMyPbH3FQbk S1FttbY9BNRogOUyRHxwUVO9F12 du7R5KGKbCXHdHVD5sWB6jA9gpY lnbjogbGVmdDsgdmVydGlj GBmmQOehO390ULEyrVtzSsKmHBr uZyBEYXRlOiAgMTAvMDYvMjAyMz wvdGQ+AFWsTOK8rWjrWACj iMErHWgzOg4tiWecnPrnQO0zQNB adbyoPIWtoD0gOGRgzPQlfWuhVU 1wXWVcbbrpt898NpEtELP3 MJHjwNPtL7RrdM5kYpZbQRPlJOR tW9HomBJbPDpfC386AWutFvA5HB NpkfIuB5XoUDUlvIqaTsT2 v2J9It8Px0GwyferS4UguUSrUcN vTobgCEu6V8WaCwxibDG+PC90YW PhBA64OEe2GHP8oSwhTQms TBKbM9DgiR5gJgCiSUIuELWaUcb +PHRhYmxlIHdpZHRoPScxMDAlJy GprDovNA3sPv7hBWAxQVFq wGlyeSOhAmQue8ruFYOwMKfeRF8 uwOnoA2IebTI4XPZqp7f4Bv56V3 8nQ2AdnPN+LAJemHS8ySE6 tU9wWwBjEmH8IFclF940RrXywCS cAysge0ysz5wbwGh3HlA0XKVtap CtgBhgQSV7o5WxCb34Y91c IHdpZHRoPSIxNSUiIHZhbGlnbj0 umX6mMd5+HFSvdBE9lHU4pR3uBq KdJvR0QBjqH623BtOuaWMv Cdqap2zrs0onpJg5DsAoRLTpzzX mzDnxNHE4d0XmLj46S5TxjAafz6 EqBuw7kq66fCVos6T6nOS0 P5NpCCVjmvwbiOHpjGmqIA3eNZB wquzoTSVhqU4bKLEuE1c4RbAlAm W6ZRhvE7DiqpU4FNKgaQKk YVJfiWBOyX5upesko9wekytwHcP aMFVbLFl6UIr5POAxlWdvKsVkNB B5GqH6BRZ5rPGwnB7zhCrs ejqqlE5kEiy+BIJ9fMDjxTIXNH6 lOjwvdGQ+ZFLfNFG4jJzePGcnLH OjfM9wSGYuS3q7OrZcLdW8 RJumC2ImixL1QOGfvHRoMMEvvET DvR6swvrtj9xogqorRjIqRMWaWE i7AVn4BDUacXxgXlYhJEZ4 XoI8HDS5mGUxkS3uwSrtbkddmY0 wOyc+EypnhHjuLRD6FXu0C1EpZi o8GXYjgLnePL9byCJmFJix Sx0utRvvmQhuHB0jEYSmqpqju12 6ZwDjd6dnGHYmcRMtQDlcONK2H0 8kw7D5MLVxGAIuHEM4qZH3 rH1ctMjanbcwlQKwtOwpzmKtuHa cXNtdFTxbY350XUErnGkqEeTqIO g7R8LcEwi8IYIamOugJO9d dBIiNJctKz3xdGcgoUopIU3hDQY qgbajz266NrUuc1irUKFtaNBtXM rxTDG2P93jm0N9CWYrMEOx MQC5yMF4jQ4gzJgxvuyhvRNdjNz ootXpfGfuPEodBByjM572DUYizT mfYoThiHj3U1DqNmt1TDDl cFitUB5fsVLfKMrcKy9dkJjcsNf rRY2bDRLwafskv266XcByy5tcIA DdbRNaTTaqWSW1U83zw4B2 KPMsFTQlYON4kKI6bF2nyRpqnjj gbGVmdDsgdmVydGljYWwtYWxpZ2 46IHRvcDsnPlBhdGllbnQg VBakIVv9B0MnTskkrWE+HK92KNR vDZ11wJFwwPTjq7egzJs1ZiXhFI UbQGB2jIjgPAlub6NoMCXs C03oeUOqf5E3UZHqbYayfNFfIlR zyUK4dY6sCHrmclxxe6xnaobgTo nzx4iszm23jQ66A47cKOzu QORaDTTtBEIcJGCgmJipug6jvW3 wIi8+BWMmsMU0lUQ8vM4hBVZiNg U2WGeyF438RkExrTMvMiie f1ucl4zmaFt5MyN1ZURsulCdlIw uFCT6o2LaDd95S69gUBkmLHThWK XpUPOpPXBymBrspm1gcP1x Ii8+WRUiyTR6tYB3nG5uSiEeMoI 5YTnzP982PaUxxQEhZheuR87hO3 JvdXA+EOVqZdq3CKRwcMrf LL4tlRPsYQmrSs2uGSA5RwLdOyW vGEvyW7QfETPxskqaraalwPI6LH FwXBObhK55La0fpPlcQNYx cQXUuR3fjangs1yiypwyBrTjXOE qRDb1VRo9YPEsgXoeLvXqFJW4Cy X3NUI0bRJdsT3lvZogmjzj mB4gU3YdHXEmbextOv58cG4aVzU yAbW1BZvrPcp+TVVMTEVOUywgUk GHLSAOOYXRSCiYViJ6Q2Hl Kmw8VKCvfKhlPN4bkRZiBQaiYk9 fbCuzvCdcJO4hLCLaewhiZLClqO 3zSWAquOSxuMhrKH7hSGSr ywavz860QqOcINF7CTMboCSfI3M lhW8vPlIjVFKpXSHqL4EvtMItSW kyC577HMawBvL7PPSduyUu P6NwZZDxnWzsCsQ5a8F9Yf6fDY6 cQe1mUQp6RX16IB02lCJwk9O9xJ Q9X4IvPASuuupsxfliiLK9 OCKzFTKpuM85qGJbXIniAh2oi3Y 7k079TNEfXCNlvM43Tt6xdUluMG GddJCEmJ1ppsogp4afzrtq LoJwRQYkIQh3AAr8VYLgbBwzTjT vCLN5CdR0OSR0hIWzhL5rrNgxzr njcA2fEog+MzcgWWVhcnM8 E0YcBfa1AAGuhNoeFR2zyJXkZSl iAj7keZisjMfePH4rZLVrlehbDJ IlmW3kKCUtvMEzbGbiXZ3l DDWojzsdq399BaCvHTE8USFbvOJ tJ5BuzP9tRsWhALQkYOMwN0EcaC EgMUojS514WHqsPuW6OWNi pqYzD7PoPZXzuXmgQpH1v7U1Kz4 OXA1LGFZ8Z7PwWnz9MSBsdEuvZY 7faNFwLGunWg0vfAqgoVwk WP5vPJBxekgiGBCebB0oVUUkoIL cbScvRV5nDZPudpnye640UmKzEE Y0TDZyoMQqR0MzzP2gLgPg UPEhBDEfL3EhjBEiJNszZ524OYw pQdO6EEOjnbEmI7EtMSHtzSlxLm B3l7R9Bk4TJUwyfXN+PC90 cc31R4YhOkgtMvo0FUIhBNP9aBS 6nE4nLDPaSGptk1C3uSR1K5Wwce Onil8fr8yjHVChAFppF45m dBSsa0R6KWGomFZ3IOTvfOmtOhL ioB02Kgr+XEQtvMpwp8DvFokuh4 lum2baqMs7TrVyPMHyriUz tQdgPLC6v4PoNq32S75hKMmmLMX qETCuYPZuLXGpvIdhaf2xtU9hPo 8+GHBnfYU4lGV8nR3lUtOt RhD7ABsyD630WzXewNZoRrpgx0u mx0pwdGx9UkDbTTJqrtRekHflQG W7r5VjSa58L8UdoMkxt7Qq Qik8dl58gVVzf5I1jED9S6NkYYK tnefqjIKyvZbiRI5hBFRptvvhDD KhrE5aZRPwA5j4PbXcPjQ0 KIejX3EcomN0OKUkwICyLXGxgRM NxI6nzuwxm4peayvmKnQaOBMoXP s5OUl1IXTebHzfKzRqNJA9 BzH8UZM2gCLufF4uiOndixrzmI7 wOyc+BTl3p9rbcQZmHJ6hrNO2QX 37XX52xMOmh8E0tCC0L6Ov SWVfnxgljgpzeZR3PGAhRRZniC2 0Qs7izVeePt9sZVXdDTN8CJZvgF WvI7VssG5cTvWzSQZyCMSa X8XcaOKfPDvfG539KYaoJsG3ELX tqkIhD0NuFHVyfHsmSzO7w3N0Zs 3OQC56PT48ZM33vIEsn2E9 tSM5X4UjCOEckwufarfguVE1IUO xAYAngV15Tp8hcZaeWb0mPXNhJJ A5ZILsfCNyT7UgkS7pHkJz LKIbRAAeQ6BkkUTnMBcjM641LBt uJzZ0FICzobGuC2FpBGRwdTcdSx D7f3X6Tm9LQr24OK98YC09 jHPjt3S5cNO7X0NrTYIxrgdwqjy zxNB9WOLxWUXhhG97Yx8ktSxxRx 5uXJWsSNA1EWCbtJDtE5Vi gH4lBeBeHHWlIFXqD8QihADmZVd zU774JJkzMsQ1VWGnfqThL9OqAG IniKeyJdL5h0X2Uu8SXSkn dse5F2KiCckkxGH+ZW35ACRqIM6 9fPIneNCtj7odrIu2KsBwSPTfKN E8fCkbAEzkg2SpKOHhW67o bGF (more content not included)... Normal [facility] XR Sacrum/Coccyx Minimum 2 V [facility] 12-11-2022 XR Sacrum/Coccyx Minimum 2 Views Examination: Sacrum/coccyx. History: Pain. No history of trauma reported Comparison: None Technique: 4 views of the sacrum/coccyx are submitted. Findings: With the vhlcg-or-menp there are some degenerative.seen in the posterior [...] MD 12/12/22 10:34 a Technologist: LT LÓPEZ [facility] Coding Summaryon 12-06-2022 Coding Summary [employer] 64 JaqtuvslJYm8wRk+PGhlYWQ+PE1 XIADsL46auYQgwJ8mH4PMMMxHXr lrIOKNUFcZKpQjhaMxPJ4qzIGtN XJu IC8+EV6wLEDzUnmjpACpb6M2nQW 5Z71scx0yLCuqbLN6UXTzUkOtyj eik4uqnHm2ZIcbGzocDyUy XMHedM39JXZ5oS70Fj64dUBycGB un8thzZl5LfKiNIDgPMG9wGzkTI wby5DxYODiO78yeDLqk6I0 VLShqZviyPOaRrUhmEI0oD6yBHf cdmpni7hcqueyYqn0cm39rHAko0 B7vUV0P6DxwyS4YUJwaVNg QzlgaUWLqR2jwvkzu9haxjprDaI iDVPeELi4LOe7KVVwjXdhFlIzPA 05UKI3HWCbziBqO6UgBRLq iMdoMlN2t1W1My7GT9AWXjvvA0D NTUFSWTwvdGQ+VD91if37Z8YcOy gfUat0UIKkFSS0oXM5fP3p EMNeGCdeg7F6vVF3L4ZjsuLwny5 kt0cpIBQtSSncZ88hiDAca8D1QE EhsEX8FEAgxBukPxSjwH63 Oyc+KPHcvGzue5DcDdlbb9rxk5u adUs0CklgSBWjaaQfzVuxOPY2m3 FwYw5wPCUsmPQ0eLS0vA3w YhSfTvO0ETofD134NsZmkPEpIpe pQ09sG9XjcIO+OSExHqa8GNKflG syZU8oN0CzUVDnnvhlvYFe oYcqMJ7fHCSegspsAZQhmB0cEZQ cT3j2GlVoKoP4BCjoX0OiQIPxob flJj35lB2cMoLyRcH8MYdc M8JptfD4GIHwzXDmPZqtMVN0E77 ws0H6NUWdYYDoMFX1kMI4zL1trR lnbjogbGVmdDsgdmVydGlj XStzILfeL020JAUvaZfxVqHzHMx uZyBEYXRlOiAgMDkvMjkvMjAyMz wvdGQ+XNJvSMU6nXrfEDMe pKYsRWpnZs3sdPkrcDcoUU3wIJP kbqucWVKoxN2vVBPwuRWldPelFU 7qGRUzxirak966PvGxLFD5 BYXwcPAvU2WllC4kUoCuYAYmUSJ vK3WleDBgUHyfJ261FHrqEzV4VT BftoSxU5FyIZYieFpaSmO8 f6G1Yp1Lm1GrhezlF9UjlBYlQnB vRjivHTe3S9PzHchgjSW+PC90YW DfCY46HIk5MON7rTljPZsd RAOaJ4XfzN3dTnGnETKkFTSvAfo +PHRhYmxlIHdpZHRoPScxMDAlJy DfdKyuYV2vYw8lADWuUIOq lVwdqSGqRkKet6hbAFEfASjiJL4 lbNduH1ZryWH7CYEyr7n0Ic68J4 2nK9UgoFM+IQJptXF7hMG4 xO4eOyAzCrE8RKjfZ010LrDiiXH lFvetw7zxi9ictQs1EnJ8PNHgwy LbvYmoSXQ5w6JtKl17S21t IHdpZHRoPSIxNSUiIHZhbGlnbj0 vxW9hAh1+ZAYafTH0oMO0pW8lVe KwNqT7IAxkG470YaMpwQNh Mtlyi7wmh3jrlEe6EeFfPIFmunV lbNcfJJR1q0WuHa66K9PbvHxpv1 JoKen2ff39oGZvw6V5fOC4 D8PsTUZgwrzwbBRigOpeEQ4uVYA wenikMLEkxP7mUENtD8a0GvMuTm Z5PFraQ0QldcZ9JLNgbSJk HMPftFDMdJ2avvlso5imtytgHwC bJFJoJZk0AQd7FDYhoGjxEcOuJF A5BpC1ABP6nZXebH1atFuq svfhrO5jFpv+UMU5tUHibKKIYM3 lOjwvdGQ+BTQfXLJ2rZnhLCyyYH DpdE6iNPHzQ7z2MxEjWyN4 VGveQ2SlhdS6BPIgjAAwUKTwjEO DpY9qcndvg6uhjrvbBoGmAUShJB f9MTy8PFRhyIbdKvVcOAZ9 UmL5ETG7mPZvcO9tmSumrbyabZ4 wOyc+HiwfeDkcNAV0EHa7H6EfOt f7NRJzlPynZU2neRVuUPzi Lj3lgVyfyLroRX5xYSBhloqna85 9MnDve2xbOFZwbKQbWTgfDGC1K6 5hn8U5QIBpMQYeOYF7hKF2 wZ6ckWjxzgjgzOEbdLwhinFnyIc jHVaiVUabL415BOQprHkdNsEhAK n1H3XcNgv6KLIvxKwvBN2z mQBnYHotUv6ckHnboTkqBV5aVFS vvwyov213ItYcm3fqYWYyqLWpSU qyRGD8X06av3K5BDIfMUNj RIV1mER6jR5rdYnkemlzmGMymGb idaIuzUhdPWfiMByzR868MLRngN jfCgIqnGx3B9QwCnb6QHXp yFkmIN9hxCFpHLgiKa6obHifiXh qUK9yHVNdjakwc902KdBxa9prAS SnkNGkTCdpTYV0L66jx1A6 GSVvNYUlQWG2hHT1iF0umMfddlp gbGVmdDsgdmVydGljYWwtYWxpZ2 46IHRvcDsnPlBhdGllbnQg PDnaJCc6N9GuZcagwAR+HV11SEK wGP34sOEahACcq0lpfKa6JqWgMO TyEKG9hGcvLOrpa4GyVVAi S05vjAAqm5M6IIYfzBrecPEcHmW hjST2cN7bGClalhdix7cugrnqVj rnd5zugx84wY00T87xKIxm STWdJTCiIIUjLUJjbPjcac8ekO5 wIi8+QVZrnJW0vDZ3wI7dSLYzHo R2ZAkuV597MxLkwWFfFesl e8cof6qkmSa8XjN2SQJggiRecFe dVGQ1c1GcRq94T69tPPtiLDPnMM VcLDJgVYEqjOpfsq2gtB2u Ii8+ZXRgcRI1eTD9oR4mRvXsMjJ 3UDzyG808BbIifBMbXwdmM54aV2 JvdXA+NLPeCmu8TUYieZle KH6okJQlZLnwYv0lBRR8WvCpYmI tZEqwN6KxVHXechgfnmrveSC4NM BsASEgfS72Gm4kcFerOBFh mCWExI1tvzsxp5nyicnxOlBmUGE xKSn6UAn6XRUsbZwjAlHcBXE6Qs R9WJT1qIOolC7irDsyrhaj tV3yO4FePVHnrmnhBh83lS5rWnC dJwP1GLxfPzq+TVVMTEVOUywgUk SRCRUPCBQHPBtOYaW8A0No Tmw1ZMYpiZffDP6lqDOkVSwwWt0 ckWjktIpgYL6cACEzlqurZXCttQ 0mAVKbfKTvfHkrDS4mKRPz rufho886TnKpBVS9EVIenOXbK4J igA6nEgKfETIdDHOgS2BwpYHlTD yiN756CNuiKyP4NAHmhzIb E5EnPTEriNkvHvX3o3C2Uh5nIY9 bHe4bDLa2YD72HK82fEBsj3X1qP O9F5MhETZwwquhidmtlYZ7 UZVvNGMboP45oBWzSRmkOu5hc9Z 9c365UIHtCTMviG00Lm5vrYwaAP ToyMVJuC6jbegkz0ceszjo AsYlLDIvEUc1UKf5NZXlfLgzCcW dTBO4EeA8UXQ0wRVukL3cqZzhae oukK4yIfi+MzcgWWVhcnM8 G4FtTxf6GLGxuWswYH5hfKWzDXn mYf0ifMdjgErbRB4fOJNsydejIE KusI8oFIOamXGwjHajDN0a ZNYlhmorz938PkZiJGB3USWikGP sY6TecQ4yFjUeMFRgXKZgV4HhhV TuRSdtK973YXvsJlG2NRPq asXpF3KmZDImuTxhLfR7b1O3Wu9 XJL9YYST5T4AgPsr1BMBcrIfiUQ 1klKZtBBpdOt4ewPiegHjh NO6mDIUmejvaSJWeiU1fXQDnbQF nwTmqYZ1gIGVisqqlf495LfEeLD D8GHAyfDCaN8WrhY7jKvWr ABMlBQTrP1RhpTHaWCafV076JDl kDdW2RIKoguZzG5DhHROsyNrxKk S6r7S4Py4WJGmrtIM+PC90 ah16S3AhAigtTgb5BUGhQWY3oDW 3dZ2mTNKsCVdow7I0rHR8O4Eqps Gawy2zl0mtWCEhUUgtL15c rRQui2P8XNAgnUI7YPKszOttSrB vzE78Wfp+SHGckYsyr7RwHkbfl3 rta1bkrZo8XwCeSWFaxyHy yZosRSX9u7CvVa60E33zVJivHXH vSKVaFEBrZIRzzGhvrl0pkX9oIm 8+GIMkpHE4dQQ7xS0cNaFy RpV9NAuaL428WbMlpBMlLspvg7m oa0wezWf6JeXsCBTtwjNvaWzkWO K1n5JzVd55D0NqkSvwq3Ej Nss1jo72uDBmn0Y9gPR3J3HyCWQ zjutmbEVwaVgyPS0hVWAfkyziOG GawO3rWWCuE0x6VjQfBrZ9 MIntU6GqiwK6VAGpjJWxIFNvkAW NpF8ndtazq6azfqxdEgPtLURfBR j6LCm5IRQnnMupSgGtOTF0 QeZ3IAN7pWGdpA6lgYfroxunwT8 wOyc+ZPb5x8aiqBYeJY0zjRJ4PD 29PG30zEXht2Y9zZK4K9Rc AIEympbdjxxuoYL5HZKcZPEbiU3 7Gz4nzZjmZj4tYIWjNRL2MDGzfE CdX4LezC8qAdXcUXJfIDFr N1TiwQEqENktM964MTmlGlS2FOF lbbHpE1MmFWZsgJqgTtC5a4H9Ur 0PSV07GT74XB58vWGrz1E4 yIW4Q4NiIUUnndkmhcdphCM3TGQ tHXBpvM77Er4eeLutDx9bFDLhRF D9WRPuhVUrF9TwlZ7mZaGe ARLuLYXcW7FhpFUgVXywC950UXh kQhH5GGYrrqJrH1JgWGYqgYqfJg H3q8E2Zz2IGu78KD99DC12 lBIiz8N2eBV4W1JwGQFsdypjytj mkUH7NLSaCXKkvB61Bg8osMnaSd 8oKDBdBBF6TPVsyZFrY2Hf hE5dOvTkZAEtAGXfP0GxqPNpQVl sX588AXtqGvN1SSYkrgWvE3HaUR CzkPqsMpY0l3G6Ur2EINre gar4B6CoTqhasBL+IX45ZFGvZH6 1mKVhkRXgx1dprZd8ZgCuSGLdMD A1hOfuQByrv6GxQIFaT69t bGF (more content not included)... Normal [facility] ED Clinical Summaryon 2022 ED Clinical Summary [facility] ? 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 Urgent Care [address] [place], [place] [id number] PATIENT DISCHARGE INSTRUCTIONS Patient Information Name: MICHAEL RAMON Age: 37 Years Date of : 1985 [facility]: [id number] Reason For Visit: Medical screening exam; [facility] F/U- RT FOOT Arrival Time: 12/04/2022 12:23:36 Primary Care Physician: Thu Baldwin DO Attending Physician: Mati Bell PA-C Comment: Patient Education With: Address: When: Return to this practice Comments: FriJan 22 at 11:30 a.m. Medication Information: The exam and treatment you received today in the [facility] Emergency Department were for an urgent problem and are not intended as complete care. It is important for you to follow up with a doctor, nurse practitioner, or physician?s contract administrative assistant for ongoing care. If your [...] so we can reach you if necessary. [facility] Emergency Department has provided you with a complete list of medications post discharge. Please inform your perlite grinder/provider of your visit and for further instruction [...] (M20.20) Lumbosacral strain (S39.012A) Medical screening exam ([id number]) Sciatica (M54.30) If you received any narcotics, [...] sign any legal documents Reason for Visit: [facility] f/u appt Allergies: Substance Reaction Symptoms [...] with effusion) NO (more content not included)... [facility] Progress Note - Nurseon 11-09 Progress Note - Nurse Patient called and left message inquiring about MRI and XR orders. Patient reports she requested that they be sent to [facility]. Called and notified patient that the order was sent to [facility] and was pending prior authorization. Notified patient XR order was ordered for [facility] and could be done at her convenience through outpatient. Patient verbalizes an understanding of information. Reports she will likely complete the XR order today. [Electronically Signed on: 12/04/2022 14:34 EDT] Giuliana Travis RN [Verified on: 12/04/2022 14:34 EDT] Giuliana Travis RN [facility] Urgent Care Note- Provideron 12-04-2022 Urgent Care Note- Provider Patient: MICHAEL RAMON Age: 37 years Sex: FEMALE : 1985 Associated Diagnoses: Contusion of right foot; Hallux rigidus; Sciatica; Lumbosacral strain Author: Mati Bell PA-C History of Present Illness OCCUPATIONAL HEALTH FOLLOW-UP Date of injury: 08/26/2019 Claim #: [id number] Employer: [employer] Mechanism of Injury: She was moving boxes of celery when one fell onto the top of her right foot. 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 On 08/26/19 she was moving boxes of [employer] when a box fell off of the cart and landed on the top of her right foot. She was initially on light duty per Latisha's telehealth visit. When she was not getting [...] History Medical history: Resolved Lower back pain ([id number]): Resolved.. Surgical history: Epidural block (5017350254) on 03/06/2022 at 36 Years. Comments: 03/06/2022 10:33 Dana Conklin MA RIGHT TRANSFORAMINAL L4 AND L5 Entire foot ([id number]). Comments: 12/26/2021 17:09 KAYLYN - Tamiko Vital LPN right, surgery. Fami (more content not included)... Normal [facility] Recordon 023 Urgent Care Record [facility] ? Urgent Care [address] [place] [address] PATIENT DISCHARGE INSTRUCTIONS Patient Information Name: MICHAEL RAMON Age: 37 Years Date of : 1985 Reason For Visit: Medical screening exam; [facility] F/U- RT FOOT Arrival Time: 12/04/2022 12:23:36 Primary Care Physician: Thu Baldwin DO Attending Physician: Mati Bell PA-C Comment: Visit Diagnosis: Diagnoses This Visit Contusion of right foot (S90.31XA) Hallux rigidus (M20.20) Lumbosacral strain (S39.012A) Medical screening exam ([id number]) Sciatica (M54.30) If you received any narcotics, [...] and treatment you received today in the [facility] were for an urgent problem and are not intended as complete care. It is important for you to follow up with a doctor, nurse practitioner, or physician?s contract administrative assistant for ongoing care. If your [...] so we can reach you if necessary. [facility] has provided you with a complete list of medications post discharge. Please inform your perlite grinder/provider of your visit and for further instruction [...] Disease Control an (more content not included)... [facility] Coding Summaryon 11-21-2022 Coding Summary HTMLBase 64 HjykkwsgNXw8uJd+PGhlYWQ+PE1 ULOAsH06lxKZqxJ3wI2MCUUsHOh crZVXORQmVBgPbilAdFD6xeCBpT XJu IC8+IT5lMGCfKqtloENbo8C8vCN 8O66lwt2zEEthnYP1PEQfOmMkrn tcl3ummUj9IMxkDskfJcWz BNVwpM09YTP8qO43Pz27kVOkkHG uo1ivmOt6JzVpMKZnLHU3dXivKG ije3CeLWImK28fbCRdn6O0 CRCpeYorhUZuCfRtuDU2fD2rJQq mpcous8vxoamaYce0pb49wGGwy0 U9rGR1I9WrhrS6KZIbeWFs KkkgmCFBmE4kbythw5htjxtsUkO eDXFoNTk7AZr4RAFclXocFwKrUR 43UCR7QRMfttClM1OyBFOh fKvdYyP1h5M4Iw1RL9LXSoblK5Y NTUFSWTwvdGQ+YB09kl52Q5RhLj iwMyo9WETnCMK8mLZ6uJ2b UGTqZPwsn7R7xUC8Q7OsdbYgmp0 in7wpDLMcEHnxR54euKYwe5I2TA OcdGD7DYBtlJlqIkEfmT23 Oyc+DJTvcTknh1MlYqrxb6gzh9n hmZj7NyfzGHIxmdGrhLkiCGH2a3 XjJs7gMDDsoMG0fTD4xX0v MeVnVwB3SYquT428NuNevVZfAsa gW17eY3HciDG+VDXeAmy9VMJooC fuPS1gL2KoASEwdsuwhJZg eLctKO8rMPLnlirqXITmrI1mGAW qT0u9GhXpCgF8BDynT0CoAQNcgr mnFe30wL9iEdFoNkG4ERqy U6QkxsW9QRPcaWRjRQldYOO1B99 jr4R4VHOdREBmHXI4vTC0uY9xfH lnbjogbGVmdDsgdmVydGlj DKbnFYgvM570UNAtmUlrWwMmCEc uZyBEYXRlOiAgMDkvMTQvMjAyMz wvdGQ+LFZqXXE5pSmnVOTs aREmHEdnQi6vzChikQadVM4cJAX lcemeEKFtxL2hCSJylVMpxSodCM 5qSBVbdkufe690NwDgCJX0 KYFezBFlR8TlwU3kFqOqFYJlOSF lL5GunMHvUQdsI011XLteJjT8HE CbzfUtW7FuXVUvvNxrWwC6 k8A1Br4Mc5CihvuoD6HkkIBjInZ sKsctYSu7K1WrZyeyfTH+PC90YW GgCP70HXh3IIJ1zMziJPfv NUBvR9TxqM8fWcKzMEPfRSGeHel +PHRhYmxlIHdpZHRoPScxMDAlJy VmzLpkSC9sJq6tBPRwDHAh xUefsBRtIpYgj1jnNIUxQPziLS0 qpZwpV2QmhXD9WFGlr3l5Kv41B7 8zR6EkgOC+MRTzdZT9zFZ6 cW3aLlMhLkJ8USlvI022YeVppWR bIzoqn1ttr1ybgBq2CfW7AASykh OsnSvfZMR6h5FcXi42D14v IHdpZHRoPSIxNSUiIHZhbGlnbj0 oeD8jBz7+RWNxgDD9aUQ6vO6ySe QhKeG3SBwhD881HkKakAXd Xcypu1tku8ledTp1EkQjQKYnceI irHeqHKY8p3CnAt40E6OkcCcmr3 UuTkn6qo10rZGwg0P1pIC7 R7OdJTNgezhtyBJbnPieKE1yTTX jobxuDUIyaG9uNKTvW0x5RzJaHc D6WKjtW5KtotU2JFThtWOh XKIhtZMYaU0ulrupf8jrenfmJwB cYPToPUz0UIa5YGYxeLrrEdYlPZ N6BsU0KAF8oHBptP8jmXkf odfuoS0kTtv+JOL7kQOgzHTYRB8 lOjwvdGQ+BHVhBBM1hWbyQHfiVU XeeL9oYSRgZ8c3ZsIfPvE0 YJdfK5IebiN0DJDzgEYiJGYzmDX UwC8tdyrvg3eijdhuRsXaKNSgPG g8UQy6OMIqfUfoKqIvIFI0 GyG6NBL8fFIkuQ1msAdwwqlysS1 wOyc+UjlmmVcqCPN9JFl4E1QcTy f5SKXjsMqsFK2itAPrAYsr Wy1zoVtucYtmXO0aEHHkslfmg94 0CiMha8pqYHOygCSdLIadUPB0L0 3ke9L5PBTqLONjQWN7eGO8 vG5bpUklxmbxiDYpaLfobnSmrEk wDAxlXPvuG164BTFfhUcgOiDdFU h5B4DvSmv7AIPhpQegKS8t sGWoJCevWz1fsAwdwPbdAH9pTRM nxfytd814HhUkb1mqBHRccORbOU qsDSB9U70cs0S2DMXgWADm VOZ4xJN9oU7fnQzntoejsXDvnXk tlmFqtCghUNkgUCydW746LBOzmH esNsWwkGh1L5LoRtq9QAVw oWjaQF9vtOKzPFnyPb3nfBagcPm gSF4pGEWqtwtvz440FwWca9zoVI DklAWuOEaoPRT3S17fi2I8 QTMwWBXvDMX3hTL3jJ8xySgkhnd gbGVmdDsgdmVydGljYWwtYWxpZ2 46IHRvcDsnPlBhdGllbnQg QMxiYYj4H1AwGgysrZI+PM69SLC zGH14fATfiPImw0sknVb5WhTfSP IwETA8nXafBVbxs2LpPZFf B40mbMNwg9I9JFQifMjggWGaMuF gzFT5sN8vRGbafqohy7vdwxusKv pgd9gudy83xJ13U13oIZul QJBsTQQzPHByEYXhsZaseb5kpA6 wIi8+GKOjwTC1aYC8xF4qZUKrZr A8KJsmL256JdIqoYNtJlpx v9mka5ysqRw6BmH5NCZljbYhaZt mVHT6w8PlFh09T95rYXsbSICrQJ WuGZNhHVOozAivsw4chO2p Ii8+JMApdSD6eWW2iD8fYwTeJlD 7EPzbQ275HkJpnRGyTykmN53cJ0 JvdXA+QWKnQse2CKDqyIzy QR7mrVSeEQmqLr3vCJZ2GbItOrL eFVqgD2SbQGTsdnsmtnpelKM5XX TaSCWqgO08Vj1opNcuDWSw eDLXiN0nunrwy4vpjaruZmXxVMM sRTe9CSw9VUZdoVeuUuLbXEW0Yw F6PGJ6iWXkrM9wfVmoaxcc qS6aZ5QtVYCtgoutEo56aP2sMnM rMvK3AArxRgx+TVVMTEVOUywgUk DQXIFNJGLEKQoYOsJ2M3Se Osz0CCIbbRiaUQ7ecFXjGVrfFm2 qgHhkmIlnZC5nCQHnwqzaWTIgnI 4yUSMfsAOewIhbVI3dPAXv anzfj436VsCwTGR7RRMrtHAhE7M ikQ4fHqDpWDKhMCCmO4JukBArQD fjS480ALctXgT9UUVstyCu L0LqSKNqpEzwYvQ5q1F8Bv3jRT3 rCm1nKFm7TZ46PP08vCDoa9A6jQ V3T8McJKQyqfbnrxosdBX5 WGMjIABxeO94xJJdUAwaRp8qq9Y 5m726GMQlSSUxrX05Gl1iwXfbPN TfrRZLbW9cogurz6dyashd QtDiLUElBBa7WJd8QRWbzVfcEgM lVUU5IsD0GVT3rMVbvA4aaImafc yvqS4fHep+MzcgWWVhcnM8 Z5ZwUcx3FQOneBnyWA5fsBHuLUh oFm6jwUbmwPjkDY1gQFVtmlvwRO CvmM5rSHPcpNNyyIhaKN4f SHSaqjrpz001KrEzCWS3MOKzuVX xE0YopT0eYnKuPIEtIZQqS2NmwW ScQIgsL130EYplTrL4EMOx noFiP8SyHWKmsFacQnF6i3E3Rf6 HBN1RSTL1T4ObJfx0MHHhqFxcWI 9bhBXeEIfqLf4xyZhnoHyg BI5aMNTujswhCFSywZ6jRIGdfHZ lsXtqGR1aGAVapynwt285WpQuBL I4OVCuhKYoQ2AjhJ5dCxXu OSXrZDAzY3KxsSBtFMlvS000FAj qTcQ5AYDrniGhA4HgUJJylYmeSa C8r6C7Sg0RKLtozNQ+PC90 vc77M8VkIlkrDxi8WSCaCEA6bLB 8yK8oHFInDFqiq0D9vBH2R4Iiod Cejm3wm1ivEOIzSUkyC17q zNSto4E3AWPjmSB4QVQlpHfuIdV tfG04Pdr+XHJmaEtrn8MgSdoei6 rgr3yjwBm4RgFwGIGvtiCu oKdiQOF0c5NqJj24V30gWMntQSC wJNRfSZLgKIWdmTmgaj4ffM0fMa 8+YOWdtDU1rDA2hW5wJaWa TmE3FBerZ670FpNvgOOiAmssk3r ca6skaKd3UgSgPJJhpbHqjSveZF K2x1PcWy89R0LgfWbhr1Zp Jws7xm47zIJvs8W9uLV2M9XhUWQ rxkpbiMXeeUswBD2bGRSmxpdtED BykJ2sMGAoU5x9XjBdGaZ5 DBhfO9JmgjE3LRZwsVZmAASimIS AmN4gtdqur9yyegxtJyCiLSVgHA u3UTl3GOMvpUofWoNdHPP5 EqT8FXP8cNZjaB4khZzrmwjjtT9 wOyc+KMm0s6ibjMHhMK6lmRF0GG 64KN87gPVcz6E8nIY6Y5Ae LZOvwafyqykkpYU3PVVvOWIfgE4 7Hc5scKszWk6uOFHbOKJ4AFPrwJ YyV3MwyJ6nWoKuOVWaVZQt M7IwpZOvYUucI243LYgkLmJ0EXZ avmEgF9NmVJSwcCzbBiQ5l1J1Kz 7WFF11PY41AB79gVMbe3S7 xAL6T1XwHNUplvvhekyxpBG9CLN sAQNiiP96Qx7ocFimMi1wXWXrZG C4ZJFzcPZiK9EhhO5kFePg TANlKYVaG0AbeOZzKFvyM387YMd dAaL8YDKdxwVhB0JaHJNwfYnaNr T0z7N9Ih6EHg29QJ18OB34 zQVpt9K4hLX9D4TpEMFtiojogfl ujQM2NCWfCFNziI54Ny2xhKjfZh 7vYCHxQAV1FWNplQZoY3Gm gJ1tNqIgSPKlZBFgZ0PlySFsNBx hF250NYttUsD6PSNddeBjF6JzNX EoqTawGdV8j5M2Wf4LSDwt rao9G7BcToxkvOI+TG14EQNiZI5 0lBKpdBQls8rktAb2UaMnHBZaED V2aXnvCMtiq4EmKLFeK58p bGF (more content not included)... [facility] Consent Formson 11-20-2022 Consent Forms [id number]#1.00OTGTIFF [facility] Controlled Substances Agreem entson 11-20-2022 Controlled Substances Agreements [id number]#1.00OTIFF [facility] Progress Note - Provideron 0 11-20-2022 Progress Note - Provider [id number][facility] 10-24-2022 Provider Orders [id number]#1.00OTGTIFF [facility] Coding Summaryon 10-10-2022 Coding Summary HTMLBase 64 BcoekrsvMYm3wGu+PGhlYWQ+PE1 RGYWkS90lrSYpyB1uC2ZLXVvXRb omKUJAXGwOPnBfjuUiAV9odNArA XJu IC8+HU6eUXHlPzcuuNJka2S9lNH 5N46mzj1xGDuacFB5BAEjVnQxxm wgr5nyuIf8SGnxBybiShVb KPIiuY70CHK6bB48Qs93iWQwzAY ef2jcbSe8SfVxXASeUTS9cLcsKL uyy7OhFURiH76vpTLrl3L5 JVInuVkckVJvRvBalEX0eX6qJJm bszqhg9peijfsQgt8il78dXTfl8 E4yPN8S8OhhjJ7PTDsqMYv FewbgZFLaH2wtmljc1quhmwpBgV eBAIbOVt4MPs2VRGpoDdyRdBeJN 33MOK4QEJwppLbK9XoOBBl gFohOjK0v1M4Bp2ON7BXStbaV5E NTUFSWTwvdGQ+FC72ky85N1KcMf tzSal5SDOzOCZ5dEY4gG3t LPIdGPcoo9E9yRF3Z4TuhtBpoh2 rc5dfYRDcCFcmN80nnLIqz0X6JA KluUX3GPZxzWbeOlTsxH80 Oyc+VJDeyLayc0PnWjaes3qyv3f ygMu3AdhhJHHkwjEfnDwiZKK6v8 KdVy3iVMUufRJ3jVY0vA1d VwCcDuG9JLriB030IgIznKGpOtc sE14vF0CwmGI+VEXjKtf6OYCmgW niIM9uX3BqXYZccmdmbWZk qAyuXX0dYKPdkrrqJGNvyH6oATB hA7u8QxRpMcX6WKyhU7KwCBGxwt skGn11xW6eUcCwUyI8VTwe P7VgywP5HBHdzGQdDGqfTXH9M06 ij5Y6GDMcPFGhJNL4pQX3vQ0cmN lnbjogbGVmdDsgdmVydGlj YBmaDXtrP565KYMdxLxkFwPfZYe uZyBEYXRlOiAgMDgvMDMvMjAyMz wvdGQ+ICBlSVW5nNbrKRBy aYJvVSobLb2ycEfhoYjuHL6gGXX gkawqVCDoqH9iAJEncUOgfUhbSU 2qSGCtuozcn773JzGbQBI7 RUHzeYAyD1TgeH2hYsFmOURhTXU wN7PrsTYwNIchH852GQjvFxS3KN BbmfRwX5FwPFPkyNotDaW6 q5K4Nb3Ia2OeejfzJ4NqbGYzTdF sRnxjNMe3B7GyOsfnhNM+PC90YW KrBP91VIz2OMF9vItiNPrh VIKzE2AhcI9yTbLlWADoDIPwRvq +PHRhYmxlIHdpZHRoPScxMDAlJy SvpMokHX6eAr4mITArPCNw cMpxvHJbNjIhl8pzFYLwZImbUX2 nyYfmH8QjgUB2CYQpo3b7Vu51X6 0bH7OqxPA+MQAxaPG1nPP7 lJ4kQpMuFpY4OCimQ847RhQpsJF mGrvnv6gri8qkwXb7HlP8CTXbxf BnpBdbNHQ2t8AxEj13Z45t IHdpZHRoPSIxNSUiIHZhbGlnbj0 hcP4yCb5+JAXxwXP1nOB6aZ3sWk AtEuF9AOrqX941VzVpaFAp Rfakd5sfp8riiQo5SnGqUGZgbpK veYwtDOF5n4LwZd72I0NzxJfro5 IsOmv9ax99sQVkz0F0tDI8 M0AjKKXfwumdwEKvmTqnKM5cQDN lyqxzZTCqaI2qHQViD7p0HcZtDn D7JJnbL8UxlzN0DRGfvZZc KNNlnOUMdI5uwnqur9zrubjcRgR eJPAtXGj8NEa8JKJwtLdpSuZbCK Z3AvC4KKP5fMRmiF4wbZdm tcduzI3jVfb+DSU3wVJxqNYYAY5 lOjwvdGQ+GDSkRUL1cLjwTMrgFB DmvW5iAFHjX2h6BaLpJeD5 KZibA2UqqqV9IHZuzFYiMQIzrIS ZqC4fdajfj0jisyhdShDbCEWmBP q4LBd7GEZnmLnkPqExNGT8 DsV1MVL5mJKnuO0zpRphkyjchN4 wOyc+WfikzJibGGR4HCo4I5CeAm m9CTLldIbqKZ6fgMBiSWyf Hd9goTvpjJilAH2wPHYdpteuc65 4TaZvi5foPGOaiWPhACjwXNJ0G5 0nd4C6QRGmGRJmCJO3jDN6 jG0skSmpmcvqmTXkePllrkGnuMd nVQkbRFzyF159WEWotKihFnWbML d3M6WpOih1SMRljMewHA6a iRFjYDprHg6mcLqaaKjaXW6bMVB qshrtq444FlCbc5yaTGNkcCZiSF szQPH6A48ac6A6WGBfEXRm JZU4lSZ0iZ8zuOphdnlsvWJndIh zkjEluUveIXldEHjlS719DQPvaW hpUkBguGu4R4JbDad9CMWs jVcoRH0bnIUuOXliIn7rzDmqlJy tAH2iAJAvkjkcl367CmUjo9beYD UmgJHqYRgtOYJ9O61cj1B8 MHOsXBAbSPY6tJB3lB7udMwrxoi gbGVmdDsgdmVydGljYWwtYWxpZ2 46IHRvcDsnPlBhdGllbnQg WVwcRZb0E7OcNdeuhZG+BC49BJE kYB65pYJnnMJcn6rulMr6VvQiFM OgVHW7vLvvZYpjl8GyXSDh Q90hzUNva2E5ZVBiuNjtlGNfKtA epDX2gH7wJIfdxilft5uozcjlXu oya1jhyf85uC82D88oEQkp YCUrUNQxTWHuOLLeiVzhae9rfI4 wIi8+MCWwrKI7nHX5vB7kJZXtXt J4MTioC272LwWnoEJgFgrt d6hdn0sdyXc9UgW4JDHzluQvvWq vNEO5q6SmXd24S19gXFloAFVvBE WmLTHfFWIlfPxsdn8xfJ7e Ii8+WKFvrCL9aLO8yS9lXmIzVsR 5FKhuO621MtAjjJBnOoioG22jB1 JvdXA+NYUnTqu4ZKAtsFxj IE3enDQdTKedTw7qQOV7ZsJhDuD iMYjcA2JyXKVzkhdrouinfEK7NT LbZBDymN76Nd1pdHyeSEZq qPEMwC1iqvxep6pokiekMcKhNBM oJPl8MCj0DSTluCthHvQcAWV3Oa U0VYD5xHLfuG1phOjsalta kG4oD2CiZZEaljwgFc91fN0pZrJ fKxY6IJnoVpg+TVVMTEVOUywgUk HFAPQKDFRFHWrQQtK9T7Ou Tqq9SUUidOzeEJ4gmFTmKOqcXk3 seXndbFnoIL0gUAOhnsyyKKOcsT 7mCKGylBOmfHghVU1vFTTw ndrmq196BpCsPGH1HUOawKUjF4Z hhG3zIdYcQSOjOHChK0CtfYMkNA vdS033UOdbKvG6BRKtotRe I7PpLXZtpMzlJmK8x5H2Ve7pVS0 sPg3xAWk5MV10GV99kQVka4A5kM G1L9IvRIYcrpbcbkpkjBZ7 SQOhWCGskQ38wSRzRHagWv7uh5D 2g821FLHuHWHlcM85Xw8adRlwDV TykKWQjL1tsrqez7vtidnv YtEaOXWvBYo2VEf5TSZvyXoaKjF iEZH5AmR8PSR8nKGgyQ2vcOfxuq frtN5jVkr+MzcgWWVhcnM8 G5SjXao1UGCtdYxhXQ6rlYIiCOx kUw6eeEfyhNnlRF3aEUFrzwviXM IxzW7kFNTjdVGtpLklZY5k CFHvbzmdn623QjPkNCQ3XZWzjRO iU2VzwR2iTeVdYPVkSNYuU3QegK JqJNboX378FSvvIpG9VNCy enEvR9EtVSSvhLyyYkB8m2E1Vx6 BYV6HVMV7Z5JcCmz5XYTitOkuQF 9pqYIoZBghOh3trCrcaKde CW5yQAIieecwDSOzkH1oELFnsLO yxIdpKE5lODQwndlpw560BwRcBM S8RQNhxNSvH2WkhM5sHkHp FTOhOTAhV0XovYYcLObgM630YZl gYeB5YRYkkjAvF4HhXOVvnBgtJt O0b9H9Vp0NPLipsGG+PC90 zo43S1MrErgnAcz2TVKzQEU8vNT 9bR5bITNxOOksd5F0uFB2S0Nyry Itjg4nv7xdACIgELnqH65o uHKfy5X3FXYdsIC2GCLhtCwvSvG nxA92Xcj+TIElvWbla1GsSbwsa1 nsi9lifMi1LsQrFTVdnpOk zDnbCGI9p2PpWu56J12kBCtcDLM uEOKdUMYoXSWfmKfvrc0dqM6lKx 8+PVMbhJW8lXB3uC1gPzVq DeT7VNwtH319JtOnuPVwVzner6r gr6rgkUp0FpRgNWOfuuZliMzwMF B1x8JjDn59Z4YocDinn0Dz Guw9ue61iLXju5X3zPT7Q3OcINO ahovevESpaPqoRS7aEYDrhommAI PkmH1vCUElK3a3JfQbXaK5 KFpuD4EtzyU8ECMbiNRqNDQwrMY IkD8nxsmfu9ecajgjEgDuLCNaOB k7WEb6SDYfwOwsMiGbSKR4 MqW9MAH2xEBepW3rnVtfwdpcaE7 wOyc+SXk8m9hepVWrEG4zsDX6SO 89YF63fFZbz1B3sVH4V2Fw TCCicoweiinbrMV3XRJeCYGrnN1 8Hs6boVdeZq8sJBTvQUW2VWMubX ByT7BdmF4hUtIfVZXtUKJo K5ZuiZGvAXgmL199RVkhZoE0ERQ obzQtM3MwERLlzGzcAfD4w7X3Tl 1NVC58RC42UF80sFFma3C2 tWR8X9VhAESxlsynvdqqnIA4MFV xAUEfzU01Mz9hsPffEt7cXOJsFR D8DBTedSKuC0ChkX1fCsKv LZHtSARmQ2KgfBWqSMstO894POt pAcR1CHFcgfAkV0DoRZSsqNagPe Z1u6J1Oh4CCa74PL86ST23 lQJsz3Q7bFF2N1YyNVDnjmphrrv bbFN1OLXgZGUytK75Rl2seCmiYm 7fDXJbKKS8CENwkVXaJ9Lr bW1oPsQmYCBjJVTlW4WvkYEhNZo tN750HLjuOiH5XSAzofOhG4NdQN UbbXhkPnI5y8F4Il0SZVwu dul5C8RnBozkeIM+VH77XNMaXZ9 4fKUbzUByo8dujNs9GzWfNUXsAD M0pNeoYCehq3HrBPLpX10c bGF (more content not included)... [facility] Miscellaneouson 10-03-2022 Miscellaneous [id number]#[facility] 10-03-2022 Provider Orders [id number]#[facility] Outside Recordson 10-02-2022 Outside Records [id number]#[id number] ED Clinical Summary [facility] ? Urgent Care [address] [place], [place] [id number] Clinical Summary PERSON INFORMATION Name: MICHAEL RAMON Age: 37 Years Sex: FEMALE : 1985 MRN: Acct#: Visit Reason: Medical screening exam; [facility] F/U-RT FOOT Arrival: 10/01/2022 11:44:26 Discharge: 10/01/2022 12:49:00 LOS: 000 01:05 Check In: 10/01/2022 11:44:26 Checkout: 10/01/2022 12:49:00 Address: [address] [place] [id number] PCP: Thu Baldwin DO PROVIDER INFORMATION Provider Role Assigned Unassigned Mati Bell-Elinor ED PA 10/01/2022 11:46:30 Catarina Meyers STRAND FORMING MACHINE OPERATOR Nurse 10/01/2022 12:19:26 VITALS INFORMATION Vital Sign Triage Latest Temperature Tympanic Temperature Temporal Artery Pulse Rate O2 Sat 95 % 95 % Respiratory Rate Blood Pressure /95 mmHg /95 mmHg MEDICAL INFORMATION Medications Given: Allergy Information: No known allergies PHYSICIAN DOCUMENTATION DISCHARGE INFORMATION: Discharge Disposition: Home Discharge Location: Home PATIENT EDUCATION INFORMATION Instructions: Hypertension, Adult, Csek-nl-[id number] Follow-Up: With: Address: When: Thu Baldwin [address] [place], [place] [id number] Business (1) Within 5 to 7 days DIAGNOSIS: Contusion of right foot; Elevated blood pressure reading; Hallux rigidus; Lumbosacral strain; Sciatica Patient Understands: Yes - Patient/family/caregiver verbalizes understanding of instructions given Comment: Normal [facility] ED Patient Summaryon 023 ED Patient Summary [facility] ? Urgent Care [address] [place] [id number] PATIENT DISCHARGE INSTRUCTIONS Patient Information Name: MICHAEL RAMON Age: 37 Years Date of : 1985 Reason For Visit: Medical screening exam; [facility] F/U-RT FOOT Arrival Time: 10/01/2022 11:44:26 Primary Care Physician: Thu Baldwin DO Attending Physician: Mati Bell PA-C Comment: Patient Education With: Address: When: Thu Baldwin [facility] [place], [place] [id number] Business (1) Within 5 to 7 days [...] Keep all follow-up visits. Medicines ? Take ffvw-bjm-[id number] and prescription medicines only as told by [...] ankles. ? (more content not included)... Normal [facility] Urgent Care Note- Provideron 10-01-2022 Urgent Care Note- Provider Patient: MICHAEL RAMON Age: 37 years Sex: FEMALE : 1985 Associated Diagnoses: Contusion of right foot; Hallux rigidus; Sciatica; Lumbosacral strain; Elevated blood pressure reading Author: Mati Bell PA-C Basic Information Additional information: Chief Complaint from Nursing Triage Note : Chief Complaint 10/01/2022 12:24 EDT Chief Complaint [facility] f/u appt . History of Present Illness OCCUPATIONAL HEALTH FOLLOW-UP Date of injury: 08/26/2019 Claim #: [id number] Employer: [employer] Mechanism of Injury: She was moving boxes of celery when one fell onto the top of her right foot. 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 On 08/26/19 she was moving boxes of [employer] when a box fell off of the [...] History Medical history: Resolved Lower back pain ([id number]): Resolved.. Surgical history: E (more content not included)... [facility] Recordon 023 Urgent Care Record [facility] ? Urgent Care [address] [place] [address] PATIENT DISCHARGE INSTRUCTIONS Patient Information Name: MICHAEL RAMON Age: 37 Years Date of : 1985 Reason For Visit: Medical screening exam; [facility] F/U-RT FOOT Arrival Time: 10/01/2022 11:44:26 Primary Care Physician: Thu Baldwin DO Attending Physician: Mati Bell PA-C Comment: Visit Diagnosis: Diagnoses This Visit Contusion of right foot (S90.31XA) Elevated blood pressure reading (R03.0) Hallux rigidus (M20.20) Lumbosacral strain (S39.012A) Medical screening exam ([id number]) Sciatica (M54.30) If you received any narcotics, [...] legal documents With: Address: When: Thu Baldwin [address] [place] [address] Business (1) Within 5 to 7 days Medication Information: The exam and treatment you received today in the [facility] were for an urgent problem and are not intended as complete care. It is important for you to follow up with a doctor, nurse practitioner, or physician?s contract administrative assistant for ongoing care. If your [...] so we can reach you if necessary. [facility] has provided you with a complete list of medications post discharge. Please inform your perlite grinder/provider of your visit and for further instruction [...] disease. ? D (more content not included)... [facility] Progress Note - Nurseon 09-07 Progress Note - Nurse Patient called bruce uesting a refill on diclofenac. Order is sent to Bia Goldman CNP for approval and signature. [Electronically Signed on: 09/17/2022 15:26 EDT] Dana De Dios MA [Verified on: 09/17/2022 15:26 EDT] Dana De Dios MA [facility] Coding Summaryon 08-15-2022 Coding Summary HTMLBase 64 IeaqgyzoVDg0aAc+PGhlYWQ+PE1 HJXFkJ19syTPjeY0qO8EWQYbMGv cpFUSDCGbKGbZkecVfXC3onMYdU XJu IC8+TW8hLGUbHybhsMHve1P0tBK 7W10ili7gMQlnkOR7ROLqWhWaac kjm8hwsWw3DMshDvtjJlJs LVIumK52XFS9aL94Jf77eHHqyXI mw6zhnBd7RmDsLMShFGA1gRdgQG aro3KxBARaE93goUUbz7A8 OSLdgAkckAQeMiXcpVM0xN8uSUc glndek5larrhnJhg5dq25fTSxe1 J0pSB6X2MlveU7EQNyhLZs JjysuNMGmA0ljjmti5vzyaxyMlD jMUYdRJk8SYy7JZWdsAcdFpXkPG 27PVB9KGSnrsWmK3WaSUIc hOpkOoX2h6G7Hy8MF3HLYyuvP6P NTUFSWTwvdGQ+JG91ug03A9UbXn lhOgv4MJXzCIU4zTF8zB8t XPLiMSxhi4R0dHZ8Y7PwuwKlis2 yy6gnJGUyRGveT77ceDXmg4O3AB WcxHH0MEJnhLlrXiObzZ27 Oyc+CDOyqCuxo5LnVzmga2nbb5o ojBe3HkcdJOPuluJqxIiiGBN2r7 DeKx1dVZZwvGT8mTA8mB0a CeVfBdK7QPscM072ClNfaJThRys tH17kL8KtrFH+ABYzXny2RKDezX ynSK4cZ2VcDVUdvpihjAXh yZttOP4kVDDvwvosLWAyuV5sIDZ fB7n4NbAzTaX7WZxrB3EmRMSlbp kcKv52wR3yImYnGlA7AAeb Q6NhzaQ9ZEReqNPnDHtdKXK0G02 ge5D3WGOvPSBcVVC1kNG4lE1erA lnbjogbGVmdDsgdmVydGlj UYgdAZixG885QPHaoXsjWuGeKYc uZyBEYXRlOiAgMDYvMDgvMjAyMz wvdGQ+GDRqFHI1pDgfRCTa fQFuAJrqAw2kyAkaqOjhKU6eFGC imzutMKIrvO2dLVXbfBHotYwjCU 6qVSGughovf452WdKcAVS3 UKQxoJCvI3VodT8uAaFgNQHeAZF gW0MksKOoPLwoR641JIegToO6CC OccvYoG3MrUQZzuQskTrV4 q0Z7Uw0Bd5JilovrR4XrmTLuEvO sArakBJw0V1ItTcqxiUR+PC90YW BtII29FWu9NAM8cMcoLNhm NLRoE9RqwU7oDpRcNKJhLCHxGpq +PHRhYmxlIHdpZHRoPScxMDAlJy ZoyTwwCT3zGl1aXUNuLXMt iUsjqZUuYcTvi2gxFUZhTJpkDW5 ygYicN6PcoNX2OAEvz6d5Rv70C6 5wJ5UxoNV+DQNztQS0iOX8 dP4vGnGvYjD1QOncI482McMbgQI qOnlrx7utp3hwqHc9FiG2EMLjpp AdeKicITM1v7ZqFx69L69w IHdpZHRoPSIxNSUiIHZhbGlnbj0 gfT7oYg8+FAWwlWS1cQQ9wS3rIz GxGxJ3PLadH197UoMcdLGo Jnpcy1kyu3oygIn0JnPdKXXackC soOynIEH8w8NxCb24H1RbrKmpj4 LyCba3qa45rGHnk8J9gLZ3 Q0RpFFPdqsfekATbcXrtYY9pZZX klklnCUOtxB5rGBYoQ2t0DqTuJr Z2MXzjG9McdmD8JOMcvGSd BBLnuBNCpP2jfrght7apdkojCfM kELUkWKz3CGj0VEMztZejNlOgTS H1YqT2NJY3zMEwqL1vfAtg kycbfO9tGrw+XCU3hMQwqOWQVC8 lOjwvdGQ+AYVvEPN0eNkjBRwnOX TehK7oCQQdI9p6HpPaNcA5 VSqvK8WssyY8JAKznQIvJYDrrAQ ByZ8hkrvat0usvuhmRbPvGNOfHY x7CGb0STYcrOpcLjGhHEN0 GtE7JYA3aTUtmE9jaSzpwghiuB7 wOyc+PqdzwDqrKVR6XZh8Y8PvLn t9OATloDdhWU8dnNGiVGmh Un5xrIxwcOgqWO6oLFVabvvmg79 9RgNly6rnMGBxkUDpDNgmEIY2I7 8iw1L4QKIfSEUbARY6sRP9 lG3tgTgdaeoqdYYpgAjijpIbjBb lPZdvCJfwA158XCFllSieLbDuAB u2F5ThEhb3XSLivJknXU4p xZZjRQtxBr6laLmidIrjXK8nGFI vvguly149MuVkr6pcYNYwqYSeLK gkYPH9W45as8Y0IOBgCLEp QLX1xWN2sC9ngMgehcohyMAljNd pntSpdEomVPrzOSbuW056YSZypQ boZvTvpLv3R9PrOsu2GMEp qAkrUP0xfEUgNYyvWr8nwAdjaFq ePP0vGNVzgiozd284FgVfd5msQV ZmwJFnNJbiYDD3O42cj4X8 BCTsXJJwRNS3vRK6cR9skLgcbqd gbGVmdDsgdmVydGljYWwtYWxpZ2 46IHRvcDsnPlBhdGllbnQg TQlcBKx9D6KsKizagHX+ZC58JWB tHH76rPIdfJNhl0lseKb0XzXsJM TkTJC6hQruDLanl7MoUULk X78deGPmg3O7WEQgmQywuODcRgH hlTJ0pP4uJMrdekjqv2ufnrfxEf fby2pglv83sB78U65kLJkf XBUxHGRtAVQiUZBpdCmgoz8gvG8 wIi8+IONtpDI0mSU8mH3tXTNvTd Y4CZnyS904CiVgmBDsSgyv h9zdf2sxfAx3OsF6KCZeygTrsBp tLBS7t4HgTv20Y01jSBynWRGaWS JlKMMkAIZyoCagpk4wtF7y Ii8+IOQyrPH9sFH0tR5rLgXmLmS 1JIwmH380EqPukUYdJbbrO84bX1 JvdXA+IIOiMrl8ZIVgeYdp CK0mcGZhQRnkMp0fMJM2NoWfJsM rFXmgP4AtXRBymluozuwkmVR9QB RxBNAgvK95Mp7nnOsoCATn mVXKrE8khihgl4swbkivLoQeGRH qGZh5HXu4NQSixIqnHcJkUCZ4Hq X8JEJ5fBIdwM5dzJwvmunq uN6rV7FfHBWkstfaWf49sQ8nMwU nAiS6XNjfCis+TVVMTEVOUywgUk AAZSCQWCQATOcQAvP6G5Ix Flr0QVRtkWgmRR1icZVpVNvnAc7 xlXizxNxjJU6zXFTaqnfaSAKciJ 6dMTHrcXHyrYyoBJ7lVWQy tlhhu987FjIkZCI8PEZqnVDoU2O idZ7nWpFbRVKlKFDlE8RsiZCsTQ pcX611RDaqVzF3UJCyelQd V5GhVXFdqGbkFmW4h0Q1Ng7rQD3 gSt1bSXf1QX43KD31uAJev6F3jU X9X8DbDCHwrinaqmcdeGC0 BAHbMAVejD25oWGaKDvhEv0yy3Z 6i570YBQsCLLbsV16Pf4saIjjPE QcwXQIzF0awotlr3wjdram SfYiQUSiCEv3OZt7EFCtnIbyVhQ yBMT5TxG1ELS9lTUatM1gaMmmfy jnlF9xIfz+MzcgWWVhcnM8 R3CcQqw6IUGdoHbfDF0phFKpIJy xVa9zqUykpFklPG3zVRFrhbvtCU PhnQ1jLJLmcIQfoCdqEZ4l UYNbidqti059SqIoAUQ2AWFsnNL wY0WhyB6oCgAzVJOsVGYyW9EaoK KyIQelT335RZerTtU8NRKe ugDwT4HyPXAutPmjOoT0q9L5Gb0 RWI1RLCR0G9MqRip9RHVhrAryEW 7jpIMiZVfjUy3xmEedzOxo ZC8fAUWjkcrdFFEqyX1eTWMppBD hbObyCW6uADFnkiave184YtBcFG I4BDMytODrI2NkdY0qFxTw ILPbPYVsK5SieRLoCLqlW007CGn lUwK7KYEljwGxD8SuRIRbgAkzKy B8s3B2Iy8EMNU8qxOthcfq H1X8nNH2aNDugIeloKN+XK77qt4 2S2EeNgrvTzm6OYKuOIL2vGN1tA 8pKHEoGZtte2C5kIN1X2Vq ryCleb2qq4osUAPwDBewZ86twNJ qh1Z3XQYbwQH5AJFlmAxwKeDgwP 93Oyc+ZUJzeVxrh5CfSrqi l7xyd3kujCi9DkScXFUmaqWgjLz xCAJ3e0BsUk76C48bLXcvKGIvRJ MfJBShXRBojEcrql1eqX9z Ii8+ACEidJT5jAA3eU2uEzFdZsK 7FAxuK192SaQhnJAoUszwh2exf8 scwGq6VmZaBFDawpTfzZyt RHT8d4HmQf56P4YslKupy3RaQdv 2ji79uGAwu9S9mDP7L4BhPMMvkl lqmFVcxCvqWZ7qXKDwcwlq UKNwlA3xOWDvN2e4RxWfAaA3GBo fM5KmmyJ0MCBdbQIgSWQrhNDQuI 1xoetlt7fseibwTxDkVDQt SXy0JCu4QHCvbDhuFwHzGAV0McX 3WVY9nTZdxV6pkZecicrroQ0lLg c+DNt2v6ociHKmQW4ewGY7 WA82RT38xVFon6N3uRE8B9KtKJE moaqccixntZH4VCGwGWPzbS69Tq 8gfWwdAs6gRNWqWRE3KOIw fLYmI2ThtD4dBvUfJDWjTVRvI1X grMNeYOvkX775HApmUqN2KZDwmq PsL4GqPAElhEzsHdX5l7N9 Ps0ABE46OJ67ED52yKJdz1X8wEX 6D7VeGEEfibacqpudtHH6IOBbCL WzfU21Mf2hdSitIu2zMDTc XVR1YNGxgABkY7EnoI8gFlVaKMI iTXBuK8QbrJSwSDkiM789KXhkCo K5VFOwglTcR6PfTGGyxAjq UyZ1k8Y6Dn8CCp75EO96AD99vNP bj5M3uXM0T4NyTMMjfueatrougO I7BKVwPODjkP98Ch7zfPri Jx9hQVEqFCI7MZXccDFrF7DezM8 wUrUhXOZfJORqZ8MgfJBwGQayJ1 22CHdlSmI4URQzrvIpP5Pw VYEpeIhcPeG9p7U5Xy4GZUtgboo 4U8JqHcerdBV+TC32PLOiWQ81rC [id number] IHN (more content not included)... [facility] Billing Authorizationson Billing Authorizations [phone] [id number] [facility] Progress Note - Nurseon - Progress Note - Nurse Pt called stating [...] on: 08/06/2022 08:00 EDT] Deena Silva RN [facility] Coding Summaryon 07-24-2022 Coding Summary HTMLBase 64 MaoegmnhOEu6wSd+PGhlYWQ+PE1 PBDCxY78giWExpV1LY2qYQY0TSM KERIBHPI5VKX5jbUF9JUzjB4Dqg iAv RqaktVVkUL72UVw7HHG3lTopFDf siO9usFDuJ7y2GyOtMS31vD28FX mjOXMrEfV2XqHaienwsGNu F2fiSgLreNQnIyx+PHRhYmxlIHd jSWYwJRbuQSCbFeLosHovOF4kDb 9yZGVyLWNvbGxhcHNlOiBj u2eqKUTtVGgjDL4sgIqdU3YpuHY 0FSOtz2i7Th19tGS+UPVdSOR9kA qxSIfhi974ToJjn6ftVPT7 aLRkRFooIBJ4F38dc5F2SEQnYHH nQXZ8sBL0eH9poKwnmnvmQ2IomC UsIsI0SQF2bJJfqJ7zzWke kqctnN0vTos+F24GQX0OGPRNXN4 AEbo3D9VlYtktfMC+XP91DSThJX 35zSTovFKfj8edlSy3CiDv JKSjCCL2fKnbFQnmx1SbZZVsQ33 riLCte7W2SKDeqZaneNNgEcLfqN I4hN0xFFiqcpvwu8gyotnz Alpde5zbbr05pF51L31eFRurWMB mJRU7SOLmCPLsoJqszv8yoB8aZo 8+FFgjg7vfb8puhXt7FeIm DVVxnoFziOpwTJW6b6VnNn93V3I brRufg6MsTxh1be51iXRub0K4nS B6JOvmHEGdlV0qHIgiKhR8 PFOcVqEkgG46wQRjRGbaNo4yzBk jnOcmGC7yCOOtgtkgUDIgyP0jUM XjhXTcbDtrEK6gSSKayypv p627HcQdSCW7GXDhhVMyX6XyyW9 sEkRzYBTpERIvM6OslPMoLDxvL7 49IRqcZhP1IRHnflElS7Le CEEzaUebWdR3l5S4Fm9Ii3Apuap xMCD6ITylIVK3JeB2CvOrUpA2X1 QjXth8TZMqhImkGQ8wA0Fm QOSogtpedukziVH7QVPoZGExxT6 5wXLyEUnzNe8md8J5p919JDWzNI QcaW71Il8zxOtpGYOecFSZ pT7cvsxax0dttxooMoIpDSElFWq 4LCk6JQPaeMkyKxSdXHD9VdD6EU R9mUVrgP1sbQgcvkterN5u Oyc+J26nqT6eVHQ2JDE7ybxpJOA lizWrTY25PB26J2BwLfvgqJQlqA U+RNCzbwYsbFbzBT7eUzPl p2pci5DsINslQ2HgAVFlMYraBvh 0TSDoUWU3gAW1fN0gLHQnFWzlm6 V6zCU7Y8DhinGfyn1vg1at MNVfBNazU06ncYDwx6D2RTGumEG 6RLWouAiuHfUqkF75Osv+PGNvbG mwb7ZnVvbss3ory6xolIz6 GzOcTAOyfpIvxTlhKFM3n1SeOb6 7K20wSClcESZnYCZmJIYgMGGrhU cnjz4ymL7wWm7+PGNvbCB3 lSP3vL0jQYIrOiS1DRkvB491RxK esQRvIrcth3wbm7znbZi2FtXoWE DzzjWprDarFLG4e1JhRa79 I27aNEvhIOJmWFRfNPTdQCGtnDu tgg0ajQ9sJd7+RP5cd6tpho78rE 48dHI+XBQlEKI8qKhtHUop ZOAzhO9hPOuuCoC5ZRMlPiIbkI6 0yFPaGRvfNa9arIynsYieEQ9wXD Mfowykz467MqFvm2wtSHBy gXOoXJpoTZE3I36po1G4QBGlNJB fZLV3vGL3zC4epHqipbzlhUXsrU yrhxUdvKzwQGszWSpyV786 IHRvcDsnPlBhdGllbnQgTmFtZTo 1R4BcImr6YRVryQzpUI7wrUAfHO etQw9bmZggrDmuDX6lJRGn etgbw700IbCfh5ovDPXxmWTfJRu mBJT7C72lk2K1WTOpANCwTNC8kY W3oC6bcHzcaexccFCxvQni dnGjuXbiXEifMGqlY917VTVkzWs bRyXlbbDqQBVzmIT6BY33KR75iT Lhv6K1zKY3H2BhQIYdsaug jnssbSP1TKUaBLBchU18Tr2lvHh vCh4cBTFyIAK5BWLduNZaM6AahK 0bWpZpFMCkLPTqY7NaeSSv EGvvQ311YZxgVwG8TOHcimNcT8Q hYIXohSquHcO9l6D1Ll7LE8O0CT 63WU67tLRpn8P0qTE7R1Hq TSUscnxgqnwolAT7GFXkPMCueD9 5Gw3kqLrfZj3yITThXYO4ZEQthD VvG0SncH1nDgImBFDhWROg O4HdyMNnKSegV996BYamOqX9BEJ dqjRhD0DzTFUwuQqxDlY3m7W2Np 6IPXi2AP01IF91lEFtl6T4 uAT5M2QmSNUtisshboymrCI2OMY wPGJkbA36Nf7qgAffTd8mSAKnAR D1BURooSMoQ5EatI7qPgFg DSGtLMHrZ6DccUByJGfjP671UYn iPpZ5AQFiklWmA7JiCZUjbVbrFh T6h0Z9Ui5NUJLtRL05LKU4 uAU8YH92KD34Q9QbYrpuiXXihEP +PHRhYmxlIHdpZHRoPScxMDAlJy HmnRdiAN3cGb4rNZBfVVLd yCsruAHcZtEqt9ujMXAbJXwpIS2 ndEfuR3EvpAP9ZOBxz4r5Og67Y8 5qL7XykSZ+IFFfnYG3tSI0 sB5sNaOjFnX1BYqzN924VgVdgNC mGthbm8hlx1sciBi3EjY2ZSNrck UlsDswMHE8z1FgDp95J46o IHdpZHRoPSIxNSUiIHZhbGlnbj0 wvD9oBk1+YCEaeGL5tAW4wO0bNs ZwVzR9RNchH607UfBwuXBq Zxzju4dwf3qimLc9ZpAdAMAzknK hlTvmFFN2p8XaQn74G1UpfEzik1 XcQix4gt50cODsc7V9pKJ0 O7HuAFVkefctcOWyiFwmUD5aWLQ vzzqoYSVftV7nBPAzL8y5QcLxRw U8HOlaC2CfroM3QOAsfCYq FNedTFJ2I94vp0R1TQMjIZSjJGR 6wMS3gU1ipIdgnumewCBubBrlry GsjYgsCJejLMviN039HAVn bRatJZOrhN1eGGSieANmsVtfQF8 cAOVffyukDn4EOUjBQeUfAWLBEI GAJUMXFQMULY5URC88KW88 wOAtx6E4lCD0S9SmQSIfdrmnonw hlLW2YPJrVFIqfS07sAZmMSiuVe 1ib1S8p709TXXiZUVuhV79 Is3ehGfjECAzpVCZqY4ikkvcr1i texktFaTyQKKyPXl7RKu2QOWarM ghCqNmXQB4TgB8XBW5eZNj tA1eyOdowgpvsZ6dWhg+MDEvMjc bGRf0HcmegKJ+XPPmGPI0yJzlCS ptVCYgdW4hFZIoN0h1LaJu PsE1URhjT2TjHBVuwwpeVy56lF5 jYfLmFnZ1OFkbD0AdtfL4BDLtgX NmSPyyDMX1H05bw1T0OGQp XIVbYLS6uOI1zI5diNkvvhqpqCI qlCyzlmEwiYgsOSdhSQerC487YB RtzJaoAsN2TWvnKYHzLI46 YR32uNJda7U3nTP7Z1IkCVJrogb jawvsnWV9CPJqZBSnbY77hCUpLD ivNv6xl2Q6v227HIQuGOTm pZ90He5kaRcmCFRunDYIiL1fyzv li4jylvslZnHzHQMqBVk2BDj7MD PnmEhoVoIbKRF0LhW3SGH5 sYWwiP7tsQmsmzepnH6mZlb+RkV XINzVZB91ZP06wCNmt7S2kHN2M5 DiOGLoqwzjunlmvJD0HCSq LMGfoR36uBZrIEguCy6po5Z8l11 5RIVsUSIhwF77Lo4kbYonEXTatB XWfF6acqrff8bgmabmBcSe NXOfCLv0SDb4HWLdeWtlXoZzAJR 8GsU3KNP3aRNtpH2lgCcqmmkjmQ 9wOyc+V9W7L4WwXxzhoQH+ GT63WBMuHH08jEOsfMNgq5bbmVp 6RwZqITRpBML4oQroZGcbi2JwMT OzK42dgOZhv3C3YBChjIqk pYJwMbLbyNO0fC0vHPqvvxpwx0b vxxdgRcyrn0dtdb55tI56A05jYS dpZHRoPSIzMCUiIHZhbGln ej0lpV1iCt9+PHOwqIN6nGP4jI6 bNfCjXjV2BRlwX674BzEalGMmMe vik1jts2icfZq9UzYmNETp vaAaaEloQKD7y4OcUo43A25eOWi lXVVaPASsPIBwMSResIdpfy5ygL 9wIi8+RE6be6npxm26qR60 dHI+NWBnVXI0rRjtKAbcEHIwfR9 nMOonMpY1ZEPkCdYofI65rPDbEV haPr7pdHfszFvuLM9wIXTp qxrxm270OtUac2lyVGJzmPDyYUw hYIT7P07yx7I0INSfDWEaPTE9wE U3aG5drUpdwsqdsVEztRtv jsWciGywADvgRXfaT567LKFigVh tRgNxuEXyB4bzafQRSS4zYrjofC Q+PLKwTIF1yGrvSEcqYJTi oS4bOATuN5e3XaDaVrY4WJspW5S xfzE3RZNjeUYxZLQxqGMXwN4xfz fag9fozpbjFwStZIAzOCr4 WGj2YDXldGjkKqOhITX5BwO4ZZB 8fEVuiR1atUzoanirtV1cKzz+Rk lOOjwvdGQ+KEQaJMD2lGhl VTiqRHLcwI8eWFDmF8z8HhAwBrI 4FHbxM9VljmT4RAXzwXGwKNFxoJ HKyE2rltxuy6arvsfuEsQd TZCoCVc4WIh9JXXlmYwmHhGnXFH 0WeK0JUF7tOQmvU1fwZlutrpstS 9wOyc+TVJOOjwvdGQ+PHRk BPI2iQzuCBkcLFBtbU9lXFKdY8g 7CkXpGwB8BFgdY6EeveL0RWKjaW TuAKLqmFXVjA0yqbpvx9fw hawdVjAwNEDoVXu8NEy7RWTtxBa iOsPqFPA4LyD1VQR4kLKimD3ojU nrlsxnhA1vMyj+BRZ8IUK9 AQ05RU41C2DvAoupaMAtlVR+PHR hYmxlIHdpZHRoPScxMDAlJyBzdH kfZA6vWp5lJORvDRBjzEnu cHN (more content not included)... [facility] Coding Summaryon 07-16-2022 Coding Summary HTMLBase 64 FihlfsgkZWa4qBt+PGhlYWQ+PE1 PDECfA04nqFBveG5BO3wRMU3ZTQ OSDCBXUS9MXJ2iiPQ4RTfqW4Pve iAv MiknoFSuNJ08NQy2GYQ8qFvdFSh yyW9teRWrV0j0KtPeIL96eX13RS amEUCvKgH8ClNnwghwiJGu H4zqNnSzqCTuHuj+PHRhYmxlIHd rKUAaWOczDALpDvCqmFhyTN4nZk 9yZGVyLWNvbGxhcHNlOiBj j3hpXWPnAGkjMY0dcGbzX5GwgVS 2EVSif1u2Nt30eAR+TVFzFJP2bO vsQYxxg363EeUdx3xlUMQ6 rNAoNLewRVQ1K58wg1H8IVBwIIT hRKS5aNG0fL5vaKhrchpoG0SfsC UeBbK0VYO1rDWrjA3hsMxq qcwrjO0oBrj+R20PTE0VXJHOYP9 GUmg4J9GzUtuurLB+LP51KHLwLS 57sVAkjZUpr1ldzOl7NoHc JZCpRRX0wCydYBihk4LbWZMiE95 xmTPlq7B5UKKujUnpySViPxBtvF X7uT0lINjgnjrhd1xrciok Agthb6uggk88kM25N98mBJrxRSV vXBR4FHFzSRKkwTqsop7qoG3hBx 8+VIsqv9bmc1abpZu4GfRk NNTidkDanImbSGJ3a0TbZm53A8E tdTjjn3FpWbo1jo12uLCja6L2zQ C2SGadUBZncL3wKHhiCbW4 UQImFiQmhA51fRGiTZkxVx3smLu qjNhaJN0lVZJmgscnYCUavF3tYJ TgaBYyaJluXQ2bTSRkrbvv u373WtZtVNE2CWGlpSClP0BydZ6 pKkUbIYGiMWGjH5MagLBhEMorZ8 86XFwkBoU5DSPbhtYcB6Kk FUKdwKumEoF7j6X9Kz2Ce8Msfnh mCZR5UDyyJQM7FuL3YcDgBkX6O2 OeMnv7XXVxrCfjYO1lL1Ik URKwtclktxbpiVT4LRYcJTKqxU6 2bMGvQYsiSq4le6X8r861LDJyCZ AtaJ64Qi3jlSexOSUelPCL mV8crgjdk0zrlwrlOgKfUUWoJUt 0NYz3DIAcoCzdRaLiTRL8AbA9QX E0wBMtwO2xnCymojbvkZ8k Oyc+Y21saA2fDXQ8BZR6tibaAWQ nbzUmSD12ED51D8XiGfgfwCFfeT U+INFmtzXvlLlbUV0kXiCl q5vla0VyUYqgQ8PmHFHsVCnsEqo 5AMAfLFE5iEJ9pT0fPPEoOYxgc1 S0fUO9A3BptaFpeg9pq0xq LBThVQdzH30lwDCch1T6KYLeqYN 0OTJtfFjnXpQcsW24Jpn+PGNvbG klb2DcGzezn4wzm6hdvVw7 FnQdQXBesxYzwQxnWSR4v1WdJd0 8W79jGNboMIJrCXNuAIVcNQGjjF knod4pwD9rZb5+PGNvbCB3 kDZ3bM0pJURuOxX9JHmpM075GbA xgCJuHcbtt7tch9xrmVo3HpHyFF ThsjFhgUjfIMB2g7ZtAn42 W84jNPgpLPRlJKMwNSQsWBEckAa cls7ybN7iSh0+LZ1wd3fgqk48hK 48dHI+DCYyJCY1iZhaTPbq LZNeiV1rYNdsMrG6ITXbSzYbwE1 9oIYsCSgyEa7jcNfweOnyLC7xMP Mketoob890WrXdk9zsFVAj cJDpNRkzMIS6G60xw1H7WGDnJOP nDQS9mSH9rZ0shUhqigbeeDVxxD ncrcVovYfkBWejVPqdZ058 IHRvcDsnPlBhdGllbnQgTmFtZTo 8F3IqIug8ZIUwlEdrGW6hdVThRP qsGx0frAnhkCcnHN9aEFSt jcfoj810AuSey5inFQRomSXcZFs hGDD7A28yv3L7QRJmLFTbBMF0nL V4sY6myVtusibbdLHreQtm jfXbfJeyNXakGVxhC622EAEezDz uLzFawxEpZDHmeLC2RL46HG96eV Ovb7O5xLD8P2AvYGLwmpet arakeVY3AZXvQMGriW71Vj2dcRk zDq3yPWEoTMP6KZWxjOPbW6LifA 7bHdUaBWKhDVTjJ4ItzXBp OFmvT565URadAnB0TYXkwfWfX4O bEAVydYscIjC8z8G4Rn6UF0N8YU 63SX33zHAen8X5lGQ3O0Tg XZKxzikigzjmuKP6ZBSfAQFarQ3 7Ri1hfNbiIe7dRGEpKYP4AANdnC SqW7UgjJ3sQuUlGWFtDPKx K7RegSNwATcoR507UFywDxV4BRL mmhQvP8DrWKPeyBgbLkL5n2U1Ey 6DXAd4RO42UN16sFSas3V8 jOS2J7NuFLOrooaqhfdvxAS5RLD fCEOpuW24Or9vyMwvSb2uLMKnDL T1WFTchLGtY3HzxI6qSdHs XUEfTYVzZ7LxmHUyXGmrC205MHo wCmN8EDTdvmUbE1PsCFDinStcFm V2t4B2Jm4KZAUvNP48QUY4 uRF5EE60DE35E4QuTulamAVbiUA +PHRhYmxlIHdpZHRoPScxMDAlJy ChvTivQX4sRr4mVCLwBCJg kJzslCUfDtZex3yrCCLmNAcmXQ0 ynPkrY9EwjRA7FLYik4i7Kx93Y2 3cO2YjwUC+KBNgvCS4yIH3 fN1xApBvGjN9IMghK485RpBuuQA jLfphx9tum3uceQa2GoV9HIHvth WphFtiFDS9h7TlQx29C89u IHdpZHRoPSIxNSUiIHZhbGlnbj0 mxM5iJv2+QZPucEV2lTS6uE6wKw SlUtK7SUhvW558NwEqyKBk Dqbcw7gnr0bsnMc4VnGiPFJfqiP kdYwbTVW1c8UbSc35V7NjcTvna4 RzZop6yq70rVIll9K9bPF9 X2HzINPurgoajNGghRhtHA9nDPF sxfydEFDpxY7bCRReU4d6LoOcPi Q1RHdjW6CydfO2HQDkbBSt TJpaHCS0V12ke2J7MSOxMHQcTXW 8cOU9yC3knTsxozajqUHgnRgmes KubYraTJpzITmkU503DYMg rZrpJPLneB1aPDYphBQxkDriFE4 lHOVuudzfYq3ZKQwVUgYiNSSVOA OYSVUTUIAXVT4GVS19RN37 sGCen8T9dWX1T2LsPSCyrwwpoun exAH0HMMkLJIjpO56qTIgBKukFw 1ra2G6u991HYBbTZSxnV81 Mi8nmMblOZKinMWGpP8eumunn0c lewgwJvYyCHYgAZx4IXn3JXBynD lwQsLzFKN2UsU3WXR2mBZi sX7eeMtekyxkoI0hSzs+MDEvMjc rEYc5OursePU+ZWGaXID3kZarXS kyYYPmpL9gOYOsD4n5YtOr XgM3RTciS3SbBGVlirdiAw63eB3 rYpGhFeG5FDloC2ElnjX1UZOneR RjVSbqTJE3D50hn4S9DEZj SWMaFYQ9bXK5aQ4xfWskeashvKP kiCutscHnqCejPHwyTArnF241LV DflJumKiP3TGtsSMIdFQ51 AH60zWOun9N1mJS9M9IoAXXvxqd ngchjaML5NLHhTMBwxV33dELsSN fhIe4pc0P0x955YOCkZVEl eY54As0nyZssDXMsbIWWvR6rrqd gk6ezllotZuGdTQBoBTj6QLf5QH OivNroCdPqZYC7PmR0JSD2 dTIheA3aqIgeydqwrB2tBmw+RkV QRTwMAF61WY73xYYbz3S1eIH5P0 XdKJPgbxmzvdegyXF0XZJy VNVvfW95lRRvUYmnWk8vv0Z5l09 8YTAgZWYktE30Oi9haWobCFUpxG FXvZ2ytadrr9hrgbkqDuWe CHBmPTq6YXr3XSXgkHkuBpKvVBN 9LfA6NQO7nLHiwD7voWxlufcftK 9wOyc+A1W4V3FpIyszkKU+ HX28YVMqXG49cLMdjUOvk0lddRa 7QkRnLHKqTGF5fDsvUNuce6OnIH ClR81ynPKvh8U3ZSNeeFan vUEpZkWfdCP4nG0wSVxrarzru8s jsbrpYtift7dnvs37rN73Y19wHW dpZHRoPSIzMCUiIHZhbGln wm8bhZ3dWh3+HKWtiDG8pOJ4uC6 bWwHpCuA2GLboI210HaDxhAVcRc vlj5uie9kqlPw4BhVkNKBc dbMhgKoyIGM4c7FnPv66H06aTQr wWMRnVNCsGGSsAIMyzPsfwb9nqH 9wIi8+UF5wx7gqqv89jD20 dHI+SEXyZIF9dLppGGlaUADcxX2 nVPjfXiA3YUIqYtIuzX43gZFpQU zeZf1kyXpwfCbkCF9tLTNl yzjyc578LiBti0onGBKyhCKgFGm dABC8P66ay2M3ECTlKANaUSF3uX J7aV8nkHyqioxtmJHjnZzg lkJpdLkoCKgwZOgfH253LGTabVs dFoGurZEjP2qjilTRPG6lAafgzU Q+GZBcEYW4cDyvPDfpLGPn yF0nSGCgN6f2DnUnPlZ7CGmiH7B syxN3GTHfkBUhXIIblQODwN9wqm bqy5agpxhwOhThYCCqONk5 NNc9BBUyhRmvYcHqBQN0HjC5QCE 8wOGacX4wqLdfmppjoG5qXxd+Rk lOOjwvdGQ+PIAbWQJ4uGtu RFeuOEQelQ5sMQFmM5b9JrTeOxU 6WRnrA7AsmiG2BAPcpNOlSHIipU ZZgQ6daxoix2bpotpkYsVp XYMiEQa2PUl7VEAigYvwLhNpXLZ 5TxE6HZR3lCAivA0svEylmbrmfL 9wOyc+TVJOOjwvdGQ+PHRk NDL8gFobNAgjXFAlvY1rHTDbR3d 5StUiUfA7VBnaX7YtsaW0YEOufZ KrCXXzvDUInA1dqnewv4bg bbdpRdRxFCRvDRo0NOe8KLObuQt zSfGoVGU0XmD4XOS6aTWezV0qeK fukbuwvM7xKwe+IIR7KKJ7 UD34LC85X8AeZsbfwZUosTB+PHR hYmxlIHdpZHRoPScxMDAlJyBzdH zcUH2uPb9yFOZhIKFfzXci cHN (more content not included)... Normal [facility] MRI [facility] CONon 04-12-19 MRI [facility] CON EXAMINATION: [facility] H[facility]ORY: Lumbar radiculopathy ; lumbar [...] by: MALATHI LOUIS Date: 2022-04-12 11:23 Normal [facility] POINT OF CARE GLUCOSEon 08- Glucose [Mass/Vol] 124 mg/dL Critically high 74-106 T [facility] Comment on above: Performed By: #### P OCGLUC #### [facility] [address] [place] [address] Dr. Johann Spring PREG HCG QUALon 11-05-2021 , QUAL Negative Normal NEGATIVE [facility] Comment on above: Performed By: #### P REG #### [facility] [address] [place] [address] Dr. Johann Spring XR FOOT RT 2Von 11-05-2021 XR FOOT RT 2V EXAM: XR FOOT RT 2V HISTORY: Pain COMPARISON: 07/24/2020 TECHNIQUE: 3 fluoroscopic images FINDINGS: 3 fluoroscopic images demonstrate interval removal of fixation plate and screws across the first metatarsal-phalangeal joint. No acute fracture or dislocation. IMPRESSION: Interval removal of first metatarsal-phalangeal joint fusion hardware Electronically authenticated by: WEN MCCBAE Date: 2021-11-05 13:58 Normal [facility] XR CHEST 2 Von 10-27-2021 XR [...] Date: 2021-10-27 07:17 Normal [facility] Covid-19 PCR (CVDTB)on SARS-CoV-2 (COVID-19) RNA SHEFALI+probe Ql (Unsp spec) Detected Critically abnormal NOT DETECTED [facility] Comment on above: Result Comment: This test is not yet approved or cleared by the [place] FDA. When there are no FDA-approved or cleared tests available, and other criteria are met, FDA can make tests available under an emergency access mechanism called an Emergency Use Authorization (EUA). The EUA for this test is supported by the [place] of Health and Human Service's declaration that [...] By: #### C VDTBH #### [facility] [address] [place] [address] Dr. Johann Spring PREG HCG QUALon 10-08-2021 , QUAL Negative Normal NEGATIVE [facility] Comment on above: Performed By: #### P REG #### [facility] [address] [address] [address] Johann Spring CBC AUTO DIFFon 10-01-2021 BASO # 0.0 103/ul Normal 0.0-0.1 [facility] Comment on above: Performed By: #### C BC #### [facility] [address] [place] [address] Dr. Johann Spring Basophils/100 WBC (Bld) 0.3 % Normal 0.2-2.0 [facility] Comment on above: Performed By: #### C BC #### [facility] [address] [place] [address] Dr. Johann Spring EO # 0.1 103/ul Normal 0.0-0.7 [facility] Comment on above: Performed By: #### C BC #### [facility] [address] [place] [address] Dr. Johann Spring Eosinophils/100 WBC (Bld) 1.7 % Normal 0.9-7.0 [facility] Comment on above: Performed By: #### C BC #### [facility] [address] [place] [address] Dr. Johann Spring Erythrocyte distribution width (RBC) [Ratio] 13.3 % Normal 11.0-15.0 [facility] Comment on above: Performed By: #### C BC #### [facility] [address] [place] [address] Dr. Johann Spring Hematocrit (Bld) [Volume fraction] 38.0 % Normal 36.0-48.0 [facility] Comment on above: Performed By: #### C BC #### [facility] [address] [place] [address] Dr. Johann Spring Hemoglobin (Bld) [Mass/Vol] 12.4 g/dL Normal 12.0-16.0 [facility] Comment on above: Performed By: #### C BC #### [facility] [address] [place] [address] Dr. Johann Spring IG # 0.02 10e3/ul Normal 0.00-0.03 [facility] Comment on above: Performed By: #### C BC #### [facility] [address] [place] [address] Dr. Johann Spring IG % 0.3 % Normal 0.0-0.5 [facility] Comment on above: Performed By: #### C BC #### [facility] [address] [place] [address] Dr. Johann Spring LYMPH # 2.6 103/ul Normal 1.2-3.8 [facility] Comment on above: Performed By: #### C BC #### [facility] [address] [place] [address] Dr. Johann Spring Lymphocytes/100 WBC (Bld) 32.9 % Normal 20.5-60.0 [facility] Comment on above: Performed By: #### C BC #### [facility] [address] [place] [address] Dr. Johann Spring MANUAL DIFF REQ NO Normal [facility] Comment on above: Performed By: #### C BC #### [facility] [address] [place] [address] Dr. Johann Spring MCH (RBC) [Entitic mass] 28.2 pg Normal 26.7-34.0 [facility] Comment on above: Performed By: #### C BC #### [facility] [address] [place] [address] Dr. Johann Spring MCHC (RBC) [Mass/Vol] 32.6 g/dL Normal 29.9-35.2 [facility] Comment on above: Performed By: #### C BC #### [facility] [address] [place] [address] Dr. Johann Spring MCV (RBC) [Entitic vol] 86.4 fL Normal 81.0-99.0 [facility] Comment on above: Performed By: #### C BC #### [facility] [address] [place] [address] Dr. Johann Spring MONO # 0.3 103/ul Normal 0.3-0.8 [facility] Comment on above: Performed By: #### C BC #### [facility] [address] [place] [address] Dr. Johann Spring Monocytes/100 WBC (Bld) 4.1 % Normal 1.7-12.0 [facility] Comment on above: Performed By: #### C BC #### [facility] [address] [place] [address] Dr. Johann Spring NEUT # 4.8 103/ul Normal 1.4-6.5 [facility] Comment on above: Performed By: #### C BC #### [facility] [address] [place] [address] Dr. Johann Spring Neutrophils/100 WBC (Bld) 60.7 % Normal 43.0-75.0 [facility] Comment on above: Performed By: #### C BC #### [facility] [address] [place] [address] Dr. Johann Spring Platelet mean volume (Bld) [Entitic vol] 10.1 fL Normal 9.5-13.5 [facility] Comment on above: Performed By: #### C BC #### [facility] [address] [place] [address] Dr. Johann Spring PLT 205 103/ul Normal 150-450 [facility] Comment on above: Performed By: #### C BC #### [facility] [address] [place] [address] Dr. Johann Spring RBC 4.40 106/ul Normal 4.20-5.40 [facility] Comment on above: Performed By: #### C BC #### [facility] [address] [place] [address] Dr. Johann Spring WBC 7.8 103/ul Normal 4.0-11.0 [facility] Comment on above: Performed By: #### C BC #### [facility] [address] [place] [address] FOOT RT WO CONon 06-12-[address] FOOT RT WO CON EXAMINATION: CT [...] WEN MCCABE Date: 2021-06-11 07:07 Normal [facility] Vital Signs Date Time Vital Sign Value Performing Clinician Facility 08-13-2023 14:30-0400 Body height 162.56 cm DO Shelley Mc Work Phone: [facility] 08-13-2023 14:30-0400 Body mass index (BMI) [Ratio] 54.2 kg/m2 DO Shelley Mc Work Phone: [facility] 08-13-2023 14:30-0400 Body temperature 98 [degF] DO Shelley Mc Work Phone: [facility] 08-13-2023 14:30-0400 Body weight 143.33 kg DO Shelley Mc Work Phone: [facility] 08-13-2023 14:30-0400 Diastolic blood pressure 82 mm[Hg] DO Shelley Mc Work Phone: [facility] 08-13-2023 14:30-0400 Heart rate 78 /min DO Shelley Mc Work Phone: [facility] 08-13-2023 14:30-0400 Respiratory rate 16 /min DO Shelley Mc Work Phone: [facility] 08-13-2023 14:30-0400 SaO2% (BldA) [Mass fraction] 98 % DO Shelley Mc Work Phone: [facility] 08-13-2023 14:30-0400 Systolic blood pressure 138 mm[Hg] DO Shelley Mc Work Phone: [facility] 07-25-2023 09:54-0400 Body temperature 97.1 [degF] DO Shelley Mc Work Phone: [facility] 07-25-2023 09:54-0400 Body weight 142.42 kg DO Shelley Mc Work Phone: [facility] 07-25-2023 09:54-0400 Diastolic blood pressure 91 mm[Hg] DO Shelley Mc Work Phone: [facility] 07-25-2023 09:54-0400 Heart rate 81 /min DO Shelley Mc Work Phone: [facility] 07-25-2023 09:54-0400 Respiratory rate 16 /min DO Shelley Mc Work Phone: [facility] 07-25-2023 09:54-0400 SaO2% (BldA) [Mass fraction] 98 % DO Shelley Mc Work Phone: [facility] 07-25-2023 09:54-0400 Systolic blood pressure 152 mm[Hg] DO Shelleypam Mc Work Phone: [facility] 07-16-2023 09:34-0400 Body height 160 cm Anna Roddenberry NUCLEAR CHEMISTRY TECHNICIAN.AUTOMATION CONSULTANT Work Phone: [facility] 07-16-2023 09:34-0400 Body temperature 97.39 [degF] Anna Roddenberry NUCLEAR CHEMISTRY TECHNICIAN.AUTOMATION CONSULTANT Work Phone: [facility] 07-16-2023 09:34-0400 Diastolic blood pressure 83 mm[Hg] Anna Roddenberry NUCLEAR CHEMISTRY TECHNICIAN.AUTOMATION CONSULTANT Work Phone: [facility] 07-16-2023 09:34-0400 Heart rate 76 /min Anna Roddenberry NUCLEAR CHEMISTRY TECHNICIAN.AUTOMATION CONSULTANT Work Phone: [facility] 07-16-2023 09:34-0400 SaO2% (BldA) [Mass fraction] 98 % Anna Roddenberry NUCLEAR CHEMISTRY TECHNICIAN.AUTOMATION CONSULTANT Work Phone: [facility] 07-16-2023 09:34-0400 Systolic blood pressure 134 mm[Hg] Anna Roddenberry NUCLEAR CHEMISTRY TECHNICIAN.AUTOMATION CONSULTANT Work Phone: [facility] 07-10-2023 14:43-0400 Body temperature 97.3 [degF] Erickson Ontiveros MD Work Phone: [facility] 07-10-2023 14:43-0400 Body weight 144.5 kg Ericskon Ontiveros MD Work Phone: [facility] 07-10-2023 14:43-0400 Diastolic blood pressure 90 mm[Hg] Erickson Ontiveros MD Work Phone: [facility] 07-10-2023 14:43-0400 Heart rate 76 /min Erickson Ontiveros MD Work Phone: [facility] 07-10-2023 14:43-0400 Respiratory rate 16 /min Erickson Ontiveros MD Work Phone: [facility] 07-10-2023 14:43-0400 SaO2% (BldA) [Mass fraction] 97 % Erickson Ontiveros MD Work Phone: [facility] 07-10-2023 14:43-0400 Systolic blood pressure 137 mm[Hg] Erickson Ontiveros MD Work Phone: [facility] 07-03-2023 14:12-0400 Body height 162.56 cm DO Shelley Mc Work Phone: [facility] 07-03-2023 14:12-0400 Body mass index (BMI) [Ratio] 55.3 kg/m2 DO Shelley Mc Work Phone: [facility] 07-03-2023 14:12-0400 Body temperature 97.9 [degF] DO Shelley Mc Work Phone: [facility] 07-03-2023 14:12-0400 Body weight 146.05 kg DO Shelley Mc Work Phone: [facility] 07-03-2023 14:12-0400 Diastolic blood pressure 75 mm[Hg] DO Shelley Mc Work Phone: [facility] 07-03-2023 14:12-0400 Heart rate 78 /min DO Shelley Mc Work Phone: [facility] 07-03-2023 14:12-0400 Respiratory rate 16 /min DO Shelley Mc Work Phone: [facility] 07-03-2023 14:12-0400 SaO2% (BldA) [Mass fraction] 97 % DO Shelley Mc Work Phone: [facility] 07-03-2023 14:12-0400 Systolic blood pressure 128 mm[Hg] DO Shelley Mc Work Phone: [facility] 06-24-2023 13:23-0400 Diastolic blood pressure 78 mm[Hg] DO Shelley Mc Work Phone: [facility] 06-24-2023 13:23-0400 Heart rate 88 /min DO Shelley Mc Work Phone: [facility] 06-24-2023 13:23-0400 Respiratory rate 18 /min DO Shelley Mc Work Phone: [facility] 06-24-2023 13:23-0400 SaO2% (BldA) [Mass fraction] 98 % DO Shelley Mc Work Phone: [facility] 06-24-2023 13:23-0400 Systolic blood pressure 143 mm[Hg] DO Shelley Mc Work Phone: [facility] 06-24-2023 12:11-0400 Body temperature 98.7 [degF] DO Shelley Mc Work Phone: [facility] 06-24-2023 12:08-0400 Body height 162.56 cm DO Shelley Mc Work Phone: [facility] 06-24-2023 12:08-0400 Body weight 143.5 kg DO Shelley Mc Work Phone: [facility] 05-23-2023 10:32-0400 Body height 162.56 cm DO Shelley Mc Work Phone: [facility] 05-23-2023 10:32-0400 Body mass index (BMI) [Ratio] 57.3 kg/m2 DO Shelley Mc Work Phone: [facility] 05-23-2023 10:32-0400 Body weight 151.49 kg DO Shelley Mc Work Phone: [facility] 05-23-2023 10:32-0400 Diastolic blood pressure 78 mm[Hg] DO Shelley Mc Work Phone: [facility] 05-23-2023 10:32-0400 Heart rate 78 /min DO Shelley Mc Work Phone: [facility] 05-23-2023 10:32-0400 SaO2% (BldA) [Mass fraction] 95 % DO Shelley Mc Work Phone: [facility] 05-23-2023 10:32-0400 Systolic blood pressure 130 mm[Hg] DO Shelley Mc Work Phone: [facility] 04-24-2023 14:45-0500 Diastolic blood pressure 80 mm[Hg] DO Shelley Mc Work Phone: [facility] 04-24-2023 14:45-0500 Heart rate 83 /min DO Shelley Mc Work Phone: [facility] 04-24-2023 14:45-0500 Respiratory rate 18 /min DO Shelley Mc Work Phone: [facility] 04-24-2023 14:45-0500 SaO2% (BldA) [Mass fraction] 97 % DO Shelley Mc Work Phone: [facility] 04-24-2023 14:45-0500 Systolic blood pressure 124 mm[Hg] DO Shelley Mc Work Phone: [facility] 04-24-2023 12:37-0500 Body height 162.56 cm DO Shelleypam Mc Work Phone: [facility] 04-24-2023 12:37-0500 Body temperature 98.3 [degF] DO Shelleypam Mc Work Phone: [facility] 04-24-2023 12:37-0500 Body weight 159.21 kg DO Shelleypam Mc Work Phone: [facility] 04-17-2023 11:15-0500 Body height 160.02 cm Imad Asaad Other [facility] [employer] Other 04-17-2023 11:15-0500 Body mass index (BMI) [Ratio] 66.24 kg/m2 Imad Asaad Other [facility] [employer] Other 04-17-2023 11:15-0500 Body weight 169.65 kg Imad Asaad Other [employer] Other 03-18-2023 09:00-0500 Body height 160.02 cm Shelley Mc Other [facility] 03-18-2023 09:00-0500 Body mass index (BMI) [Ratio] 66.31 kg/m2 Shelleypam Mc Other [employer] Other 03-18-2023 09:00-0500 Body weight 169.83 kg Shelleypam Mc Other [employer] Other 03-18-2023 09:00-0500 Body weight 169.82 kg DO Shelley Mc Work Phone: [facility] 03-18-2023 09:00-0500 Diastolic blood pressure 84 mm[Hg] Shelley Mc Other [facility] 03-18-2023 09:00-0500 Respiratory rate 18 /min Shelley Mc Other [facility] [employer] Other 03-18-2023 09:00-0500 SaO2% (BldA) [Mass fraction] 95 % Shelley Mc Other [facility] [employer] Other 03-18-2023 09:00-0500 Systolic blood pressure 120 mm[Hg] Shelley Mc Other [facility] 03-11-2023 12:00-0500 Diastolic blood pressure 98 mm[Hg] DO Thu Nicolasa Work Phone: [facility] 03-11-2023 12:00-0500 Heart rate 70 /min DO Thu Nicolasa Work Phone: [facility] 03-11-2023 12:00-0500 Respiratory rate 18 /min DO Thu Nicolasa Work Phone: [facility] 03-11-2023 12:00-0500 SaO2% (BldA) [Mass fraction] 95 % DO Thu Nicolasa Work Phone: [facility] 03-11-2023 12:00-0500 Systolic blood pressure 156 mm[Hg] DO Thu Nicolasa Work Phone: [facility] 03-11-2023 10:07-0500 Body height 162.56 cm DO Thu Nicolasa Work Phone: [facility] 03-11-2023 10:07-0500 Body weight 172.36 kg DO Thu Nicolasa Work Phone: [facility] 02-20-2023 10:00-0500 Body height 160.02 cm Shelley Mc Other [facility] 02-20-2023 10:00-0500 Body mass index (BMI) [Ratio] 67.5 kg/m2 Shelleysharlene Mc Other [employer] Other 02-20-2023 10:00-0500 Body weight 172.87 kg Shelley Mc Other [employer] Other 02-20-2023 10:00-0500 Body weight 172.86 kg DO Shelley Mc Work Phone: [facility] 02-20-2023 10:00-0500 Diastolic blood pressure 100 mm[Hg] Shelleysharlene Mc Other [facility] 02-20-2023 10:00-0500 Respiratory rate 18 /min Shelley Mc Other [employer] Other 02-20-2023 10:00-0500 SaO2% (BldA) [Mass fraction] 98 % Shelleysharlene Mc Other [employer] Other 02-20-2023 10:00-0500 Systolic blood pressure 138 mm[Hg] Shelley Jesusita Other [facility] 02-19-2023 09:15-0500 Body height 160.02 cm Wen Pollack Other [facility] 02-19-2023 09:15-0500 Body mass index (BMI) [Ratio] 67.48 kg/m2 Wen Pollack Other [employer] Other 02-19-2023 09:15-0500 Body weight 172.82 kg Wen Pollack Other [employer] Other 02-19-2023 09:15-0500 Body weight 172.81 kg DO Shelley Mc Work Phone: [facility] 02-19-2023 09:15-0500 Diastolic blood pressure 81 mm[Hg] Wen Pollack Other [facility] 02-19-2023 09:15-0500 SaO2% (BldA) [Mass fraction] 98 % Wen Ranjeet Other [employer] Other 02-19-2023 09:15-0500 Systolic blood pressure 137 mm[Hg] Wen Ranjeet Other [facility] 01-15-2023 13:45-0500 Body height 160.02 cm Imad Asaad Other [employer] Other 01-15-2023 13:45-0500 Body mass index (BMI) [Ratio] 70.71 kg/m2 Imad Asaad Other [employer] Other 01-15-2023 13:45-0500 Body weight 181.08 kg Imad Asaad Other [employer] Other 01-15-2023 13:45-0500 Diastolic blood pressure 88 mm[Hg] Imad Asaad Other [employer] Other 01-15-2023 13:45-0500 Systolic blood pressure 147 mm[Hg] Imad Asaad Other [employer] Other 12-12-2022 09:45-0400 Body height 160.02 cm Imad Asaad Other [employer] Other 12-12-2022 09:45-0400 Body mass index (BMI) [Ratio] 70.49 kg/m2 Imad Asaad Other [employer] Other 12-12-2022 09:45-0400 Body weight 180.53 kg Imad Asaad Other [employer] Other 12-12-2022 09:45-0400 Diastolic blood pressure 94 mm[Hg] Imad Asaad Other [employer] Other 12-12-2022 09:45-0400 Systolic blood pressure 167 mm[Hg] Imad Asaad Other [employer] Other 02-20-2022 09:45-0500 Body height 160.02 cm Wen Pollack Other [employer] Other 02-20-2022 09:45-0500 Body mass index (BMI) [Ratio] 72.53 kg/m2 Wen Pollack Other [employer] Other 02-20-2022 09:45-0500 Body temperature 98.2 [degF] Wen Pollack Other [employer] Other 02-20-2022 09:45-0500 Body weight 185.75 kg Wen Pollack Other [employer] Other 02-20-2022 09:45-0500 Diastolic blood pressure 89 mm[Hg] Wen Pollack Other [employer] Other 02-20-2022 09:45-0500 SaO2% (BldA) [Mass fraction] 98 % Wen Pollack Other [employer] Other 02-20-2022 09:45-0500 Systolic blood pressure 149 mm[Hg] Wen Pollack Other [employer] Other 02-07-2021 16:30-0500 Body height 160.02 cm Wen Pollack Other [employer] Other 02-07-2021 16:30-0500 Body mass index (BMI) [Ratio] 60.22 kg/m2 Wen Pollack Other [employer] Other 02-07-2021 16:30-0500 Body weight 154.22 kg Wen Pollack Other [employer] Other 02-07-2021 16:30-0500 Diastolic blood pressure 90 mm[Hg] Wen Pollack Other [employer] Other 02-07-2021 16:30-0500 SaO2% (BldA) [Mass fraction] 95 % Wen Pollack Other [employer] Other 02-07-2021 16:30-0500 Systolic blood pressure 137 mm[Hg] Wen Pollack Other [employer] Other 12-06-2020 10:00-0400 Body height 160.02 cm Wen Pollack Other [employer] Other 12-06-2020 10:00-0400 Body mass index (BMI) [Ratio] 61.11 kg/m2 Wen Pollack Other [employer] Other 12-06-2020 10:00-0400 Body weight 156.49 kg Wen Pollack Other [employer] Other 12-06-2020 10:00-0400 Diastolic blood pressure 86 mm[Hg] Wen Pollack Other [employer] Other 12-06-2020 10:00-0400 SaO2% (BldA) [Mass fraction] 96 % Wen Pollack Other [facility] [employer] Other 12-06-2020 10:00-0400 Systolic blood pressure 125 mm[Hg] Wen Pollack Other [facility] [employer] Other Encounters Encounter Date Encounter Type Care Provider Facility Start: 08-13-2023 End: 08-13-2023 ambulatory DO Shelley A Jesusita Work Phone: [facility] Work Phone: Start: 08-13-2023 End: 08-13-2023 Patient encounter procedure DO Shelley Jesusita Work Phone: [facility] Work Phone: Start: 08-06-2023 End: 08-06-2023 ambulatory CLINTON MULLER Not Available Start: 07-25-2023 End: 07-25-2023 ambulatory DO Shelley A Jesusita Work Phone: [facility] Work Phone: Start: 07-25-2023 End: 07-25-2023 Patient encounter procedure DO Shelley Jesusita Work Phone: [facility] Work Phone: Start: 07-25-2023 ambulatory Ginette Etienne Facility:[facility] Start: 07-25-2023 Registered Recurring DO Shelley Jesusita [facility]: [facility] Work Phone: Start: 07-21-2023 ambulatory Anna rodriguez NUCLEAR CHEMISTRY TECHNICIAN.AUTOMATION CONSULTANT Work Phone: Gastroenterology Comment on above: Colonoscopy Start: 07-21-2023 Telephone encounter Anna natarajan NUCLEAR CHEMISTRY TECHNICIAN.AUTOMATION CONSULTANT Work Phone: Gastroenterology Comment on above: Results Start: 07-16-2023 End: 07-16-2023 ambulatory ANNA COLORADO Facility:[facility] Start: 07-16-2023 End: 07-16-2023 Patient encounter procedure Anna Colorado NUCLEAR CHEMISTRY TECHNICIAN.AUTOMATION CONSULTANT Work Phone: Gastroenterology Comment on above: Other cirrhosis of l iver (HCC) (Primary Dx); Constipation, unspecified constipation type; Family history of colon cancer in mother Start: 07-15-2023 Telephone encounter Galina Holt ([facility]) [facility] Comment on above: Appointment Start: 07-11-2023 [facility]ulatory [facility] Start: 07-10-2023 End: 07-11-2023 ambulatory [facility] Start: 07-10-2023 End: 07-11-2023 ambulatory [facility] Start: 07-10-2023 End: 07-10-2023 Office outpatient new 45 minutes Erickson Ontiveros MD Work Phone: [facility] Comment on above: Mesenteric mass; Splenomegaly; Cirrhosis of liver (Multi) Start: 07-09-2023 Non-patient / Non-visit DO Wendy sharlene Jesusita Work Phone: [facility] Work Phone: Start: 07-07-2023 ambulatory Shelleysharlene Mc Facility:[facility] Start: 07-03-2023 End: 07-03-2023 ambulatory DO Shelley Pam Mc Work Phone: [facility] Work Phone: Start: 07-03-2023 End: 07-03-2023 Patient encounter procedure DO Shelley Jesusita Work Phone: [facility] Work Phone: Start: 07-03-2023 Registered Recurring DO Shelley Jesusita Work Phone: [facility] Work Phone: Start: 07-01-2023 End: 07-01-2023 ambulatory DO Shelley A Mc Work Phone: [facility] Work Phone: Start: 07-01-2023 End: 07-01-2023 Patient encounter procedure DO Shelley Mc Work Phone: [facility] Work Phone: Start: 06-27-2023 ambulatory SAM HERBERT Facility :[facility] Start: 06-25-2023 Non-patient / Non-visit DO Wendy sharlene [facility] Work Phone: [facility] Work Phone: Start: 06-25-2023 Non-patient / Non-visit DO Wendy sharlene [facility] Work Phone: [facility] Work Phone: Start: 06-24-2023 End: 06-24-2023 Emergency department patient visit Chris Cottrell Facility:[facility] Start: 06-24-2023 End: 06-24-2023 Emergency department patient visit DO Shelley Jesusita Work Phone: [facility] Work Phone: Start: 06-13-2023 ambulatory Shelley Mc Facility:[facility] Start: 06-12-2023 End: 06-13-2023 ambulatory Bia Goldman 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 Facility: [facility] Start: 05-23-2023 End: 05-23-2023 ambulatory DO Shelley A Mc Work Phone: [facility] Work Phone: Start: 05-23-2023 End: 05-23-2023 Patient encounter procedure DO Shelley Jesusita Work Phone: [facility] [place] Work Phone: Start: 05-16-2023 End: 05-17-2023 ambulatory Sam Herbert MD Facility:[facility] Start: 05-15-2023 End: 05-15-2023 ambulatory RIO Etelvina SCHULZ Not Available Start: 05-08-2023 End: 05-09-2023 ambulatory Bia Goldman 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 Facility:[facility] Start: 05-01-2023 End: 05-01-2023 ambulatory Imad Asaad Facility:[facility] Start: 05-01-2023 End: 05-01-2023 ambulatory DO Shelley A Mc Work Phone: [facility] Work Phone: Start: 05-01-2023 End: 05-01-2023 Patient encounter procedure DO Shelley Mc Work Phone: [facility] Start: 04-29-2023 End: 04-29-2023 ambulatory RIO SCHULZ Not Available Start: 04-25-2023 Non-patient / Non-visit DO Wendy sharlene [facility] Work Phone: [facility] Work Phone: Start: 04-24-2023 Non-patient / Non-visit DO Wendy sharlene Mc Work Phone: [facility] Work Phone: Start: 04-24-2023 End: 04-24-2023 ambulatory Imad Asaad Facility:[facility] Start: 04-24-2023 End: 04-24-2023 Admission to same day surgery center DO Shelley Mc Work Phone: [facility] Work Phone: Start: 04-24-2023 End: 04-24-2023 ambulatory DO Shelley A Mc Work Phone: [facility] Work Phone: Start: 04-23-2023 End: 04-23-2023 ambulatory Mati Bell Facility:[facility] Start: 04-17-2023 Patient encounter procedure Imad Asaad [facility] Start: 04-17-2023 End: 04-17-2023 ambulatory Rio Schulz [facility] Work Phone: [employer] Other Comment on above: Major depressive dis order with current active episode, unspecified depression episode severity, unspecified whether recurrent (CMS/HCC) Start: 04-08-2023 End: 04-08-2023 ambulatory Shelley Mc Other [employer] Other Start: 04-08-2023 Encounter by patricia Mc [facility] [place] Start: 04-04-2023 End: 2023 ambulatory Sam Herbert MD Facility:[facility] Start: 04-02-2023 End: 04-02-2023 ambulatory CLINTON MULLER Not Available Start: 03-25-2023 End: 03-25-2023 ambulatory RIO SCHULZ Not Available Start: 03-18-2023 End: 03-18-2023 ambulatory Shelley Mc Other [employer] Other Start: 03-18-2023 Office outpatient vi sit 15 minutes Shelley Mc [facility] [place] Start: 03-18-2023 End: 03-18-2023 Patient encounter procedure DO Shelley Mc Work Phone: [facility] [place] Work Phone: Start: 03-13-2023 End: 03-14-2023 ambulatory Bia Goldman 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 Facility:[facility] Start: 03-11-2023 End: 03-11-2023 ambulatory Imad Asaad Facility:[facility] Start: 03-11-2023 End: 03-11-2023 Admission to same day surgery center DO Thu Baldwin Work Phone: [facility] [place] Work Phone: Start: 03-11-2023 End: 03-11-2023 ambulatory DO Thu G Nicolasa Work Phone: [facility] Work Phone: Start: 02-27-2023 End: 02-27-2023 ambulatory Shelley Mc Other [employer] Other Start: 02-27-2023 Encounter by patricia Rosa Mc [facility] Start: 02-24-2023 End: 02-24-2023 ambulatory Imad Asaad Other [employer] Other Start: 02-24-2023 Telephone encounter Imad Clayad [facility] Start: 02-20-2023 End: 02-20-2023 ambulatory Shelley Mc Other [employer] Other Start: 02-20-2023 Office outpatient ne w 45 minutes Shelley Mc [facility] Start: 02-19-2023 Office outpatient vi sit [address] [facility] Start: 02-19-2023 End: 02-19-2023 ambulatory Mati Bell [facility] [employer] Other Start: 02-19-2023 End: 02-20-2023 Patient encounter procedure DO Thu Nicolasa Work Phone: [facility] Work Phone: Start: 02-19-2023 End: 02-19-2023 Patient encounter procedure DO Shelley Jesusita Work Phone: [facility] Work Phone: Start: 02-06-2023 End: 02-06-2023 ambulatory THU G NICOLASA Not Available Start: 02-04-2023 End: 02-05-2023 ambulatory RIO SCHULZ Not Available Start: 01-24-2023 End: 01-24-2023 ambulatory SAM HERBERT Facility:[facility] Start: 01-24-2023 End: 01-25-2023 ambulatory Sam Herbert MD Facility:[facility] Start: 01-22-2023 End: 01-22-2023 ambulatory Mati Bell Facility:[facility] Start: 01-17-2023 End: 03-21-2023 ambulatory Lorenzo Costa DPM Facility:[facility] Start: 01-15-2023 End: 01-15-2023 ambulatory Imad Asaad Other [facility] [employer] Other Start: 01-15-2023 Office outpatient vi sit 25 minutes Imad Asaad [facility] Start: 01-11-2023 End: 03-20-2023 ambulatory Mati Bell Facility:[facility] Start: 01-10-2023 End: 01-11-2023 ambulatory SAM HERBERT Facility:[facility] Start: 01-10-2023 End: 01-11-2023 ambulatory Sam Herbert MD Facility:[facility] Start: 12-24-2022 End: 12-24-2022 ambulatory Imad Asaad Facility:[facility] Start: 12-24-2022 End: 12-24-2022 Patient encounter procedure DO Thu Nicolasa Work Phone: [facility] Work Phone: Start: 12-12-2022 End: 12-12-2022 ambulatory Imad Asaad Other [facility] [employer] Other Start: 12-12-2022 Office outpatient ne w 45 minutes Imad Asaad [facility] Start: 12-11-2022 End: 12-12-2022 ambulatory Thu Baldwni Facility:[facility] Start: 12-04-2022 End: 12-04-2022 ambulatory Mati Etelvina Shelburne Facility:[facility] Start: 11-18-2022 End: 11-19-2022 ambulatory Bia Goldman 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 Facility:[facility] Start: 10-07-2022 End: 10-07-2022 ambulatory Thuniraj Baldwin Facility:[facility] Start: 10-01-2022 End: 10-01-2022 ambulatory Matilaci Bell Facility:[facility] Start: 08-12-2022 End: 12-25-2022 ambulatory Ulicesspike Longoria Facility:[facility] Start: 04-12-2022 End: 04-13-[address] MALATHI LOUIS Facility:[facility] Start: 02-20-2022 Office outpatient vi sit 25 minutes Wen Pollack [facility] Start: 02-20-2022 End: 02-20-2022 ambulatory DO Thu Baldwin Work Phone: [facility] Work Phone: Start: 02-20-2022 End: 02-20-2022 Patient encounter procedure DO Thu Baldwin Work Phone: [facility] Start: 11-06-2021 End: 11-07-[address] YAN STRICKLAND Facility:[facility] Start: 11-01-2021 ambulatory LOR CHEEK Faci lity:[facility] Start: 10-30-2021 [facility] Start: 10-26-2021 End: 10-27-2021 ambulatory LOR CHEEK Facility:[facility] Start: 10-26-2021 End: 10-27-2021 Encounter for preprocedural cardiovascular examination LOR CHEEK Facility:[facility] Start: 10-08-2021 End: 10-08-2021 ambulatory LOR CHEEK Facility:[facility] Start: 10-02-2021 Encounter for other preprocedural examination LOR CHEEK [facility] Start: 10-02-2021 Encounter for preprocedural laboratory examination LOR CHEEK [facility] Start: 10-01-2021 End: 10-02-2021 ambulatory LOR CHEEK Facility:[facility] Start: 10-01-2021 End: 10-02-2021 Encounter for preprocedural laboratory examination LOR CHEEK Facility:[facility] Start: 06-09-2021 End: 06-10-2021 ambulatory LOR CHEEK Facility:[facility] Start: 02-07-2021 End: 02-07-2021 ambulatory Wen Pollack Other [facility] [employer] Other Start: 02-07-2021 Office outpatient vi sit 25 minutes [facility] Start: 12-06-2020 Office outpatient ne w 45 minutes [facility] Procedures Date Procedure Procedure Detail Performing Clinician Start: 07-10-2023 MONONUCLEOSIS SCREEN (HETEROPHILE ANTIBODY) Start: 07-10-2023 AMB REFERRAL TO SURGICAL ONCOLOGY ERICKSON GALEAS Start: 06-24-2023 CT of abdomen and pelvis without contrast DO Shelley Mc Work Phone: Start: 05-01-2023 Ultrasonography of liver DO Shelley Mc Work Phone: Start: 04-24-2023 Esophagogastroduodenoscopy DO Shelley Unger blayne Work Phone: Start: 03-11-2023 Ultrasonic guidance for needle biopsy DO Thu Baldwin Work Phone: Start: 12-24-2022 Ultrasound elastography of liver DO Toni Baldwin Work Phone: Plan of Treatment Date Care Activity Detail Author Start: 2035 Zoster Vaccines (1 of 2) Zoster Vaccines (1 of 2) [facility] Start: 01-16-2024 End: 04-16-2024 CBC W Auto Differential panel - Blood COMPLETE BLOOD COUNT AND DIFFERENTIAL Lab Routine Other cirrhosis of liver (HCC) Expected: 01/16/2024, Expires: 04/16/2024 [facility] Comment on above: Expected: 01/16/2024, Expires: Start: 01-16-2024 End: 04-16-2024 Comprehensive metabolic 2000 panel - Serum or Plasma COMPREHENSIVE METABOLIC PANEL Lab Routine Other cirrhosis of liver (HCC) Expected: 01/16/2024, Expires: 04/16/2024 [facility] Comment on above: Expected: 01/16/2024, Expires: Start: 01-16-2024 End: 04-16-2024 PT panel - Platelet poor plasma by Coagulation assay PROTHROMBIN TIME Lab Routine Other cirrhosis of liver (HCC) Expected: 01/16/2024, Expires: 04/16/2024 [facility] Comment on above: Expected: 01/16/2024, Expires: Start: 01-16-2024 End: 08-14-2024 US Abdomen RUQ US ABD RIGHT UPPER QUADRANT Radiology Routine Other cirrhosis of liver (HCC) Expected: 01/16/2024, Expires: 08/14/2024 [facility] Work Phone: Comment on above: Expected: 01/16/2024, Expires: Start: 01-16-2024 End: 08-14-2024 US Spleen US ABD SPLEEN Radiology Routine Other cirrhosis of liver (HCC) Expected: 01/16/2024, Expires: 08/14/2024 [facility] Comment on above: Expected: 01/16/2024, Expires: Start: 01-16-2024 End: 01-16-2024 Patient encounter procedure Radiology Comment on above: Other cirrhosis of liver (HCC) [K74.69] Other cirrhosis of l iver (HCC) [K74.69] 6 month follow up Start: 01-16-2024 End: 01-16-2024 ambulatory 01/16/2024 9:45 AM EST Results Only [facility] [place] [facility] [address] [id number] labs [facility] [place] [facility] Comment on above: labs Start: 11-09-2023 Influenza vaccination Influenza Vaccine (Season Ended) [facility] Start: 10-21-2023 End: 10-21-2023 Patient encounter procedure 10/21/2023 11:00 AM EDT Appointment Gastroenterology [address] [id number] Shilpa Grant MD [address] [id number] Other cirrhosis of liver Gastroenterology Comment on above: Other cirrhosis of liver Start: 09-07-2023 Influenza vaccination Influenza Vaccine (#1) [facility] Comment on above: Postponed from 11/08/2022 (Patient Refus ed) Start: 08-13-2023 Patient referral [facility] Work Phone: Start: 08-06-2023 End: 08-06-2023 Patient encounter procedure 08/06/2023 3:45 PM EDT Office Visit [facility] [address] [place] [phone] Clinton Muller MD [address] [place] [address] [facility] Start: 07-16-2023 End: 07-16-2023 Patient encounter procedure 07/16/2023 9:30 AM EDT Office Visit Gastroenterology [address] [address] Anna [place] APRN.AUTOMATION CONSULTANT [address] [place] [address] Left VM to check in on the 3rd floor Gastroenterology Comment on above: Left VM to check in on the 3rd floor Start: 07-10-2023 End: 07-09-2024 Heterophile Ab [Presence] in Serum, Plasma or Blood by Rapid immunoassay [facility] Service Area Work Phone: Comment on above: Expected: 07/10/2023 (Approximate), Expi res: 07/09/2024 Start: 05-15-2023 End: 05-15-2023 Social Work 05/15/2023 1:00 PM EST Social Work [facility] [address] [place] [phone] Rio Schulz, [facility] [address] [place] [address] [facility] Start: 05-08-2023 Hemoglobin A1c measurement Diabetes: Hemoglobin A1C [facility] Start: 04-29-2023 End: 04-29-2023 Professional / ancillary services management 04/29/2023 10:30 AM EST Ancillary Procedure [facility] [address] [place] [phone] [facility] Start: 04-24-2023 [facility] Start: 03-11-2023 [facility] Start: 03-10-2023 Behavioral Health Screening Behavioral Health Screening [facility] Start: 12-24-2022 [facility] Start: 11-08-2022 Covid-19 Vaccine ( season) Covid-19 Vaccine ( season) [facility] Start: 11-08-2022 COVID-19 Vaccine ( season) COVID-19 Vaccine ( season) [facility] Start: 2015 Screening for malignant neoplasm of cervix [facility] Start: 2007 DTaP/Tdap/Td Vaccines (1 - Tdap) DTaP/Tdap/Td Vaccines (1 - Tdap) [facility] Start: 2006 Screening for malignant neoplasm of cervix [facility] Start: 2004 Hepatitis A Vaccine (1 of 2 - Risk 2-dose series) Hepatitis A Vaccine (1 of 2 - Risk 2-dose series) [facility] Start: 2004 Hepatitis A Vaccines (1 of 2 - Risk 2-dose series) Hepatitis A Vaccines (1 of 2 - Risk 2-dose series) [facility] Start: 2004 Hepatitis B Vaccine (1 of 3 - 19+ 3-dose series) Hepatitis B Vaccine (1 of 3 - 19+ 3-dose series) [facility] Start: 2004 Hepatitis B Vaccines (1 of 3 - 19+ 3-dose series) Hepatitis B Vaccines (1 of 3 - 19+ 3-dose series) [facility] Start: 2004 Urine microalbumin profile DTaP,Tdap,Td Vaccine (1 - Tdap) [facility] Start: 2004 Urine screening for protein Diabetes: Urine Protein Screening [facility] Start: 2003 Diabetes mellitus screening Diabetes Screening [facility] Start: 2003 Hepatitis C screening Hepatitis C Screening [facility] Start: 2003 HIV screening HIV Screening [facility] Start: 1998 Varicella vaccination Varicella Vaccines (1 of 2 - 13+ 2-dose series) [facility] Start: 1995 Glaucoma screening Diabetes: Retinopathy Screening [facility] Start: 1991 Pneumococcal vaccination Pneumococcal Vaccine (1 of 2 - PCV) [facility] Start: 1986 MMR Vaccines (1 of 1 - Standard series) MMR Vaccines (1 of 1 - Standard series) [facility] Start: 1985 HIV screening HIV Screening [facility] Start: 1985 Lipid panel Lipid Panel [facility] Start: 1985 Yearly Adult Physical Yearly Adult Physical [facility] Comprehensive metabolic 2000 panel - Serum or Plasma [facility] CT Abdomen and Pelvi s W contrast IV [facility] Patient Education [facility] Work Phone: Patient referral [facility] Work Phone: End: 07-19-2024 Screening colonoscopy COLONOSCOPY SCREENING Endoscopy Routine Other cirrhosis of liver (HCC) Constipation, unspecified constipation type Family history of colon cancer in mother 1 Occurrences starting 07/20/2023 until 07/19/2024 [facility] Comment on above: 1 Occurrences starting 07/20/2023 until 07/19/2024 [facility] Immunizations Immunization Date Immunization Notes Care Provider Figueroa gonzalez 02-09-2021 COVID-19 Vaccine Moderna - Documentation Purposes Only Shelley Mc Other [facility] 07-01-2020 COVID-19 Vaccine Moderna - Documentation Purposes Only Shelley Mc Other [facility] 06-03-2020 COVID-19 Vaccine Moderna - Documentation Purposes Only Shelley Mc Other [facility] NEGATED: Highlighted row has not occurred!02-20-2023 Flu Shot - Documentation Purposes Only Patient Objection Shelley Mc Other [employer] Other Payers Date Payer Category Payer Unknown [id number] 2022 Self-pay [id number] 2020 Medicaid [id number] 2019 Unknown [id number]. [id number] 2019 Unknown [id number] 1985 Unknown [id number] 2.16.84 0.1.735646.3.579.2.593 1985 Unknown [id number] 2.16.84 0.1.184456.3.579.2.593 1985 Unknown [id number] 2.16.84 0.1.100999.3.579.2.593 1985 Unknown [id number] 2.16.84 0.1.758287.3.579.2.593 1985 Unknown [id number] 2.16.84 0.1.357657.3.579.2.593 1985 Unknown [id number] 2.16.84 0.1.056442.3.579.2.593 1985 Unknown [id number] 2.16.84 0.1.551851.3.579.2.593 1985 Unknown [id number] 2.16. 840.1.345127.3.579.2.196 1985 Unknown [id number] 2.16. 840.1.109819.3.579.2.196 1985 Unknown [id number] 2.16. 840.1.532060.3.579.2.196 1985 Unknown [id number] 2.16. 840.1.510960.3.579.2.196 1985 Unknown [id number] 2.16. 840.1.845357.3.579.2.196 1985 Unknown [id number] 2.16. 840.1.317963.3.579.2.196 1985 Unknown [id number] 2.16. 840.1.690846.3.579.2.196 1985 Unknown [id number] 2.16. 840.1.313942.3.579.2.196 1985 Unknown [id number] 2.16.8 40.1.678261.3.579.2.124 1985 Unknown [id number] 2.16.8 40.1.745196.3.579.2.124 1985 Unknown [id number] 2.16.8 40.1.876085.3.579.2. 1985 Unknown [id number] 2.16.8 40.1.077119.3.579.2. 1985 Unknown [id number] 2.16.8 40.1.283292.3.579.2. 1985 Unknown [id number] 2.16.8 40.1.587518.3.579.2. 1985 Unknown [id number] 2.16.8 40.1.572240.3.579.2. 1985 Unknown [id number] 2.16.8 40.1.930132.3.579.2.8 1985 Unknown [id number] 2.16.8 40.1.417034.3.579.2.8 1985 Unknown [id number] 2.16.8 40.1.006097.3.579.2.718 1985 Unknown [id number] 2.16.8 40.1.336156.3.579.2. 1985 Unknown [id number] 2.16.8 40.1.576759.3.579.2. 1985 Unknown [id number] 2.16.8 40.1.568101.3.579.2. 1985 Unknown [id number] 2.16.8 40.1.581852.3.579.2.8 1985 Unknown [id number] 2.16.8 40.1.814702.3.579.2. 1985 Unknown [id number] 2.16.8 40.1.223194.3.579.2. 1985 Unknown [id number] 2.16.8 40.1.310253.3.579.2. 1985 Unknown [id number] 2.16.8 40.1.840908.3.579.2. 1985 Unknown [id number] 2.16.8 40.1.327609.3.579.2. 1985 Unknown [id number] 2.16.8 40.1.854887.3.579.2. 1985 Unknown [id number] 2.16.8 40.1.791828.3.579.2. 1985 Unknown [id number] 2.16.8 40.1.214398.3.579.2. 1985 Unknown [id number] 2.16.8 40.1.285010.3.579.2. 1985 Unknown [id number] 2.16.8 40.1.712970.3.579.2. 1985 Unknown [id number] 2.16.8 40.1.716824.3.579.2. 1985 Unknown [id number] 2.16.8 40.1.235263.3.579.2. 1985 Unknown [id number] 2.16.84 0.1.571326.3.579.2.1258 1985 Unknown [id number] 2.16.84 0.1.739680.3.579.2.1258 1985 Unknown [id number] 2.16.84 0.1.858359.3.579.2.1258 1985 Unknown [id number] 2.16.84 0.1.083298.3.579.2.1259 1985 Unknown [id number] 2.16.84 0.1.797260.3.579.2.9 1985 Unknown [id number] 2.16.84 0.1.134452.3.579.2.1259 1985 Unknown [id number] 2.16.84 0.1.660799.3.579.2.9 1985 Unknown [id number] 2.16.840 .1.279674.3.579.2.1258 1985 Unknown [id number] 2.16.840 .1.889168.3.579.2.9 1959 Unknown [id number] 2. 16.840.1.762016.19 1959 Unknown [id number] 1959 Worker's Compensation [id number] Blue Cross Blue Shield [id number] 2..840.1.716146.19 Private Health Insurance [id number] 2.16.840.1.266122.19 Unknown [id number] 2.16.8 40.1.486414.3.579.2.531 Unknown [id number] 2.16.8 40.1.396953.3.579.2.531 Unknown [id number] 2.16.8 40.1.080531.3.579.2.531 Unknown [id number] 2.16.8 40.1.516258.3.579.2.531 Unknown [id number] 2.16.8 40.1.284109.3.579.2.531 Unknown [id number] 2.16.8 40.1.931380.3.579.2.531 Unknown [id number] 2.16.8 40.1.109071.3.579.2.531 Social History Date Type Detail Facility Start: 04-02-2023 End: 07-16-2023 Sex Assigned At [facility] [employer] Other Start: 1985 Sex Assigned At Female F [facility] Start: 04-24-2023 End: 07-03-2023 Tobacco smoking status NHIS Ex-smoker (finding) [facility] History of tobacco use Current smoker [facility] History of tobacco use Cigarette Smoker [facility] Start: 08-08-2022 End: 07-16-2023 Tobacco use and exposure Smokeless tobacco non-user [facility] Start: 04-02-2023 End: 07-16-2023 Alcohol intake Lifetime non-drinker (finding) [facility] Start: 04-02-2023 End: 07-16-2023 History of Social function [facility] Start: 08-05-2022 Tobacco Comment Last smoked: 1-5 yea rs [facility] Start: 09-25-2022 Alcohol Comment caffeine: none [facility] Start: 1985 Sex Assigned At Not on file [facility] Start: 06-24-2023 End: 07-16-2023 Tobacco smoking status NHIS Never smoked tobacco (finding) [facility] Tobacco smoking status MNIS Tobacco smoking consumption unknown [facility] Start: 06-30-2023 End: 07-10-2023 Exposure to SARS-CoV-2 (event) Not sure [facility] National Score (1-100), lower number is lower risk 93 [facility] Medical Equipment Procedure Code Equipment Code Equipment Origin al Text Equipment Identifier Dates Pen Needle, Diab etic (Novofine 32) 32 gauge x 1/4 needle Start: 06-30-2023 Pen Needle, Diab etic (Novofine 32) 32 gauge x 1/4 needle Start: 06-30-2023 Pen Needle, Diab etic (Novofine 32) 32 gauge x 1/4 needle Start: 06-30-2023 Pen Needle, Diab etic (Novofine 32) 32 gauge x 1/4 needle Start: 06-30-2023 Goals Date Patient Goal Desired Activity /State Clinical Notes 12-06-2020 to 08-13-2023 Telephone Encounter - Anna Colorado APRN.AUTOMATION CONSULTANT - 07/22/2023 7:36 AM EDTTelephone Encounter - Anna Colorado APRN.CNP - 07/22/2023 7:36 AM EDTPatient InstructionsPatient Instructions Note Date & Type Note Facility 08-13-2023 Hospital Discharg e instructions Ambulatory OrdersReferral to Weight Management Time Frame: 08/13/23, Location: None [facility] Work Phone: 07-22-2023 Telephone encounter Note Done [facility] 07-22-2023 Miscellaneous Notes Done documented in this encounter [facility] 07-22-2023 Instructions Anna Colorado APRN.CNP - 07/22/2023 7:33 AM EDT Images from the original note were not included. Bowel Preparation Instructions for: Miralax-Gatorade Preparations IF YOU DO NOT FOLLOW THESE DIRECTIONS, YOUR COLONOSCOPY WILL BE CANCELLED. Yao Instructions: Your bowel must be empty so that your doctor can clearly view your colon. Follow all of the instructions in this handout EXACTLY as they are written. Do NOT eat any solid food the ENTIRE day before your colonoscopy. Buy your bowel preparation at least 5 days before your colonoscopy. Four (4) Dulcolax laxative tablets containing 5mg of bisacodyl each (NOT Dulcolax stool softener) One (1) 8.3oz. bottle Miralax (238 grams) or generic equivalent 2 x 32oz. Bottles of Gatorade (NOT RED) Diabetic Patients: Use G2 (Gatorade 2) TRANSPORTATION on the Day of Your Exam A responsible adult MUST be present with you at Check In prior to your colonoscopy and REMAIN in the endoscopy area until you are discharged. You are NOT ALLOWED to drive, take a taxi or bus, or leave the Endoscopy Center ALONE. If you do not have a responsible guard driver (family member or friend) with you to take you home, your exam cannot be done with sedation and will be cancelled. Please bring a list of all of your current medications, including any Rzkf-xls-Rqrhrbs medications with you. Medications If you take insulin, diabetic medications or blood thinners such as Coumadin (warfarin), Plavix (clopidogrel), Ticlid (ticlopidine hydrochloride), Agrylin (anagrelide), Xarelto (Rivaroxaban), Pradaxa (Dabigatran), Eliquis (Apixaban), and Effient (Prasugrel). You MUST call the doctors who orders those medicines for instructions on altering the dosage before your colonoscopy. All other medications should be taken the day of the exam with a sip of water including ASPIRIN. Five (5) Days Before Your Colonoscopy Do NOT take medicines that stop diarrhea - such as Imodium, Kaopectate, or Pepto Bismol. Do NOT take fiber supplements - such as Metamucil, Citrucel, or Perdiem. Do NOT take products that contain iron - such as multi-vitamins (the label lists what is in the products). Three (3) Days Before Your Colonoscopy Do NOT eat high-fiber foods - such as popcorn, beans, seeds (flax, sunflower, quinoa), multigrain bread, nuts, salad/vegetables, or fresh and dried fruit. 1 Bowel Preparation Instructions for: Miralax-Gatorade Preparations One (1) Day Before Your Colonoscopy Only drink clear liquids the ENTIRE DAY before your colonoscopy. Do NOT eat any solid foods. Drink at least 8 ounces of clear liquids every hour after waking up. The clear liquids you can drink include: Clear Liquid (NO RED LIQUIDS) DO NOT DRINK Gatorade, Pedialyte or Powerade Clear broth or bouillon Coffee or tea (no milk or non-dairy creamer) Carbonated and non-carbonated soft drinks Asa-Aid or other fruit flavored drinks Strained fruit juices (no pulp) Jell-O, popsicles, hard candy Water Alcohol Milk or non-dairy creamers Noodles or vegetables in soup Juice with pulp Liquid you cannot see through Do not use tobacco/vaping products Mix 1/2 of Miralax bottle (119 grams) in each 32 ounces of Gatorade bottle until dissolved. Keep cool in the refrigerator. DO NOT ADD ICE. The bowel preparation solution will be consumed in two parts. Part 1 5:00 PM - Evening before your colonoscopy Take 4 Dulcolax tablets. 6 PM - Evening before your colonoscopy Drink 32 oz. of the mixed solution. Drink an 8 oz. glass of bowel preparation every 15 minutes for a total of 4 glasses. Fifteen (15) minutes later, drink an 8 oz. glass of of clear liquids every 15 minutes for a total of 2 glasses. You may continue to drink clear liquids till midnight. Part 2 On the day of your colonoscopy you may drink clear liquids up to (three) 3 hours prior to procedure. 4 1/2 hours before your colonoscopy Take another 32 oz. bottle of mixed solution. Drink an 8 oz. glass of bowel prep every 15 minutes for a total of 4 glasses. Fifteen (15) minutes later, drink an 8 oz. glass of clear liquids every 15 minutes for a total of 2 glasses. You may continue to drink clear liquids up to (three) 3 hours before your exam. 02/2019 documented in this encounter [facility] 07-21-2023 Telephone encounter Note Nurse received the following message from Anna Colorado: Please try and obtain records locally for EGD ([facility]). Also, patient would like colonoscopy given consitpation and mother with history if colon cancer. Please advise that I have placed order but recommend discussing with her insurance to see if this will be covered as she is below the initial screening age. Nurse called [facility]. Spoke to Rio in the Medical Records department Egd done on 04/24/23 Rio will fax over the results to the fax number I provided [phone] Their fax number: [phone] (Include pt name and date) Maday Ansari RN July 21, 2023 8:41 AM [facility] 07-21-2023 Miscellaneous Notes Nurse received the following message from Anna Colorado: Please try and obtain records locally for EGD ([facility]). Also, patient would like colonoscopy given consitpation and mother with history if colon cancer. Please advise that I have placed order but recommend discussing with her insurance to see if this will be covered as she is below the initial screening age. Nurse called [facility]. Spoke to Rio in the Medical Records department Egd done on 04/24/23 Rio will fax over the results to the fax number I provided [phone] Their fax number: [phone] (Include pt name and date) Maday Ansari RN July 21, 2023 8:41 AM documented in this encounter [facility] 07-16-2023 Note HNO ID: [id number] Author: ANNA COLORADO APRN.AUTOMATION CONSULTANT Service: ? Author Type: Nurse Practitioner Type: Progress Notes Filed: 07/20/2023 13:41 Note Text: NAME: Michael Ramon AGE: [age] year old Patient is referred in consultation by for an opinion regarding advanced hepatic fibrosis and my final recommendations will be communicated back to the requesting physician by way of shared Medical Record. PRESENTING COMPLAINT: advanced hepatic fibrosis follow up HISTORY Michael Ramon is a 38 year old year old female with PMHx lap rosalia (2007), depression, obesity, who presents with biopsy-proven MASH with advanced hepatic fibrosis. Diagnosed 03/2023 with biopsy-proven MASH with bridging fibrosis/early nodule formation Follows with Dr. Martinez () ETOH use: Last drink summer. 2-3 times weekly, 2 large margaritas or bottle of wine Nutrition: Adheres to Mediterranean diet since 03/2023. Currently metformin, Victoza per PCP Has lost 86 lbs since 01/2023 Some constipation - likely attributed to Victoza pr patient With left sided abd pain Evaluated by surgical oncology for splenomegaly, lymphadenopathy Per surgical oncology, deemed low suspicion for lymphomatous process at this time EV: Last EGD per outside notes 03/2023 - unknown findings Ascites: Denies HE: Denies HCC screening: CTAP 05/2023 wo contrast liver unremarkable. ALP, LFTs WNL T. Bili WNL Plt Wnl INR WNL Metabolic Syndrome Risk factors: 04/14 1) Diabetes/ Abnormal FBS >100mg/dL: yes 2) Hypertension : no 3)Triglycerides more then 150 : no 4) HDL (<50 female and <40 male): no 5) Central obesity ( Waist >102 men and >88 female) - yes Risk Factors for Liver Disease: 1. Blood transfusions before 1991: No 2. IVDA: No 3. 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 Service: No 6. High risk sexual behavior: No 7. Alcohol: Yes, last use summer 8. Obesity: yes 9. Hyperlipidemia: no per patient 10. Prolonged exposure to hepatotoxic meds: No 11. Other autoimmune disorders No OTC herbal supplements: Denies Tylenol use: Rarely Denies jaundice, RUQ pain, nausea, vomiting, constipation, diarrhea, hematochezia, hematemesis, ascites, episodes of confusion. IMAGING/PROCEDURES: Liver biopsy 03/17/23: Liver, biopsy: - Features of steatohepatitis with bridging fibrosis, cannot rule out focal early nodule formation. Histologic sections show cores of liver parenchyma with an architecture distorted by fibrous bands, consistent with bridging fibrosis. In focal areas, there appears to be possible early nodule formation, but this specimen is limited and cannot be definitive. The fibrous septae and portal tracts show mild inflammatory infiltrate composed of lymphocytes and scattered plasma cells predominantly. There is no confederated goshute bile duct injury. There is no duct centric inflammation or granulomatous inflammation. There is prominent periductal fibrosis focally. The inflammation focally spreads to the adjacent liver parenchyma, but overall interface activity is not significant. The lobular parenchyma shows mild amount of small droplet and large droplet macrovesicular steatosis, comprising about 10% of the liver parenchyma. Ballooning degeneration is present. There is no significant Kaila Denk bodies or cholestasis. Scattered foci of lobular activity are present with few acidophil bodies. The trichrome stain confirms the presence of at least bridging fibrosis.The iron stain is negative. PASD does not show alpha-1 antitrypsin globules. Overall, the finding in this biopsy show liver parenchyma with at least bridging fibrosis and features of steatohepatitis. Steatohepatitis is a pattern of injury that can be seen in numerous settings including drug or toxic injury (alcohol, medications, supplements, and others), metabolic or nutritional factors (obesity, hyperinsulinemia, dyslipidemia), and inherited conditions. These etiologies cannot be reliably based on histology alone. Correlation with clinical data including risk factors for fatty liver disease is recommended. US ABDOMEN 11/07/22: FINDINGS: There is diffuse increase in attenuation of the liver. This is a nonspecific finding seen with fatty infiltration. No focal parenchymal abnormalities. No intrahepatic biliary dilatation. The gallbladder is surgically absent. Common bile duct measures 1.1 cm. Visualized portion of pancreas unremarkable Right kidney measures 12.2 x 5.6 in the long, AP dimension. No surrounding perinephric fluid collection. No hydronephrosis. No past surgical history on file. No past medical history on file. No current outpatient medications on file. No current facility-administered medications for this visit. ALLERGIES Not on File FAMILY HISTORY Liver Problems: Maternal uncle - cirrrhosis; maternal uncle - gastric CA; mother -colon CA No family histor (more content not included)... [facility] 07-16-2023 Instructions Anna Colorado APRN.[facility] - 07/16/2023 10:29 AM EDT Images from the original note were not included. Please be 6 hours fasting for ultrasound in 6 months Please continue Mediterranean diet and alcohol cessation. Please discuss CT scan with oncology Bowel Preparation Instructions for: Miralax-Gatorade Preparations IF YOU DO NOT FOLLOW THESE DIRECTIONS, YOUR COLONOSCOPY WILL BE CANCELLED. Yao Instructions: Your bowel must be empty so that your doctor can clearly view your colon. Follow all of the instructions in this handout EXACTLY as they are written. Do NOT eat any solid food the ENTIRE day before your colonoscopy. Buy your bowel preparation at least 5 days before your colonoscopy. Four (4) Dulcolax laxative tablets containing 5mg of bisacodyl each (NOT Dulcolax stool softener) One (1) 8.3oz. bottle Miralax (238 grams) or generic equivalent 2 x 32oz. Bottles of Gatorade (NOT RED) Diabetic Patients: Use G2 (Gatorade 2) TRANSPORTATION on the Day of Your Exam A responsible adult MUST be present with you at Check In prior to your colonoscopy and REMAIN in the endoscopy area until you are discharged. You are NOT ALLOWED to drive, take a taxi or bus, or leave the Endoscopy Center ALONE. If you do not have a responsible guard driver (family member or friend) with you to take you home, your exam cannot be done with sedation and will be cancelled. Please bring a list of all of your current medications, including any Bbtj-bbj-Rwedfeh medications with you. Medications If you take insulin, diabetic medications or blood thinners such as Coumadin (warfarin), Plavix (clopidogrel), Ticlid (ticlopidine hydrochloride), Agrylin (anagrelide), Xarelto (Rivaroxaban), Pradaxa (Dabigatran), Eliquis (Apixaban), and Effient (Prasugrel). You MUST call the doctors who orders those medicines for instructions on altering the dosage before your colonoscopy. All other medications should be taken the day of the exam with a sip of water including ASPIRIN. Five (5) Days Before Your Colonoscopy Do NOT take medicines that stop diarrhea - such as Imodium, Kaopectate, or Pepto Bismol. Do NOT take fiber supplements - such as Metamucil, Citrucel, or Perdiem. Do NOT take products that contain iron - such as multi-vitamins (the label lists what is in the products). Three (3) Days Before Your Colonoscopy Do NOT eat high-fiber foods - such as popcorn, beans, seeds (flax, sunflower, quinoa), multigrain bread, nuts, salad/vegetables, or fresh and dried fruit. 1 Bowel Preparation Instructions for: Miralax-Gatorade Preparations One (1) Day Before Your Colonoscopy Only drink clear liquids the ENTIRE DAY before your colonoscopy. Do NOT eat any solid foods. Drink at least 8 ounces of clear liquids every hour after waking up. The clear liquids you can drink include: Clear Liquid (NO RED LIQUIDS) DO NOT DRINK Gatorade, Pedialyte or Powerade Clear broth or bouillon Coffee or tea (no milk or non-dairy creamer) Carbonated and non-carbonated soft drinks Asa-Aid or other fruit flavored drinks Strained fruit juices (no pulp) Jell-O, popsicles, hard candy Water Alcohol Milk or non-dairy creamers Noodles or vegetables in soup Juice with pulp Liquid you cannot see through Do not use tobacco/vaping products Mix 1/2 of Miralax bottle (119 grams) in each 32 ounces of Gatorade bottle until dissolved. Keep cool in the refrigerator. DO NOT ADD ICE. The bowel preparation solution will be consumed in two parts. Part 1 5:00 PM - Evening before your colonoscopy Take 4 Dulcolax tablets. 6 PM - Evening before your colonoscopy Drink 32 oz. of the mixed solution. Drink an 8 oz. glass of bowel preparation every 15 minutes for a total of 4 glasses. Fifteen (15) minutes later, drink an 8 oz. glass of of clear liquids every 15 minutes for a total of 2 glasses. You may continue to drink clear liquids till midnight. Part 2 On the day of your colonoscopy you may drink clear liquids up to (three) 3 hours prior to procedure. 4 1/2 hours before your colonoscopy Take another 32 oz. bottle of mixed solution. Drink an 8 oz. glass of bowel prep every 15 minutes for a total of 4 glasses. Fifteen (15) minutes later, drink an 8 oz. glass of clear liquids every 15 minutes for a total of 2 glasses. You may continue to drink clear liquids up to (three) 3 hours before your exam. 2 02/2019 documented in this encounter [facility] 07-16-2023 History of Presen t illness Narrative NAME: Michael Ramon AGE: [age] year old Patient is referred in consultation by for an opinion regarding advanced hepatic fibrosis and my final recommendations will be communicated back to the requesting physician by way of shared Medical Record. PRESENTING COMPLAINT: advanced hepatic fibrosis follow up HISTORY Michael Ramon is a 38 year old year old female with PMHx lap rosalia (2008), depression, obesity, who presents with biopsy-proven MASH with advanced hepatic fibrosis. Diagnosed 03/2023 with biopsy-proven MASH with bridging fibrosis/early nodule formation Follows with Dr. Martinez () ETOH use: Last drink summer. 2-3 times weekly, 2 large margaritas or bottle of wine Nutrition: Adheres to Mediterranean diet since 03/2023. Currently metformin, Victoza per PCP Has lost 86 lbs since 01/2023 Some constipation - likely attributed to Victoza pr patient With left sided abd pain Evaluated by surgical oncology for splenomegaly, lymphadenopathy Per surgical oncology, deemed low suspicion for lymphomatous process at this time EV: Last EGD per outside notes 03/2023 - unknown findings Ascites: Denies HE: Denies HCC screening: CTAP 05/2023 wo contrast liver unremarkable. ALP, LFTs WNL T. Bili WNL Plt Wnl INR WNL Metabolic Syndrome Risk factors: 04/14 1) Diabetes/ Abnormal FBS >100mg/dL: yes 2) Hypertension : no 3)Triglycerides more then 150 : no 4) HDL (<50 female and <40 male): no 5) Central obesity ( Waist >102 men and >88 female) - yes Risk Factors for Liver Disease: 1. Blood transfusions before 1991: No 2. IVDA: No 3. 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 Service: No 6. High risk sexual behavior: No 7. Alcohol: Yes, last use summer 8. Obesity: yes 9. Hyperlipidemia: no per patient 10. Prolonged exposure to hepatotoxic meds: No 11. Other autoimmune disorders No OTC herbal supplements: Denies Tylenol use: Rarely Denies jaundice, RUQ pain, nausea, vomiting, constipation, diarrhea, hematochezia, hematemesis, ascites, episodes of confusion. IMAGING/PROCEDURES: Liver biopsy 03/17/23: Liver, biopsy: - Features of steatohepatitis with bridging fibrosis, cannot rule out focal early nodule formation. Histologic sections show cores of liver parenchyma with an architecture distorted by fibrous bands, consistent with bridging fibrosis. In focal areas, there appears to be possible early nodule formation, but this specimen is limited and cannot be definitive. The fibrous septae and portal tracts show mild inflammatory infiltrate composed of lymphocytes and scattered plasma cells predominantly. There is no confederated goshute bile duct injury. There is no duct centric inflammation or granulomatous inflammation. There is prominent periductal fibrosis focally. The inflammation focally spreads to the adjacent liver parenchyma, but overall interface activity is not significant. The lobular parenchyma shows mild amount of small droplet and large droplet macrovesicular steatosis, comprising about 10% of the liver parenchyma. Ballooning degeneration is present. There is no significant Kaila Denk bodies or cholestasis. Scattered foci of lobular activity are present with few acidophil bodies. The trichrome stain confirms the presence of at least bridging fibrosis. The iron stain is negative. PASD does not show alpha-1 antitrypsin globules. Overall, the finding in this biopsy show liver parenchyma with at least bridging fibrosis and features of steatohepatitis. Steatohepatitis is a pattern of injury that can be seen in numerous settings including drug or toxic injury (alcohol, medications, supplements, and others), metabolic or nutritional factors (obesity, hyperinsulinemia, dyslipidemia), and inherited conditions. These etiologies cannot be reliably based on histology alone. Correlation with clinical data including risk factors for fatty liver disease is recommended. US ABDOMEN 11/07/22: FINDINGS: There is diffuse increase in attenuation of the liver. This is a nonspecific finding seen with fatty infiltration. No focal parenchymal abnormalities. No intrahepatic biliary dilatation. The gallbladder is surgically absent. Common bile duct measures 1.1 cm. Visualized portion of pancreas unremarkable Right kidney measures 12.2 x 5.6 in the long, AP dimension. No surrounding perinephric fluid collection. No hydronephrosis. No past surgical history on file. No past medical history on file. No current outpatient medications on file. No current facility-administered medications for this visit. ALLERGIES Not on File FAMILY HISTORY Liver Problems: Maternal uncle - cirrrhosis; maternal uncle - gastric CA; mother -colon CA No family history on file. GI SPECIFIC ROS Difficulty swallowing / foods sticking in throat: No Heartburn: No Filling up quickly at meals: No Loss of appetite: No Nausea: No Vomiting: No Abdominal pain: No Recent change in bowel movements: No Bloody or black, bowel movements: No Constipation: yes Diarrhea: No Loss of control of bowel movements: No Night sweats, fever, chills: No Thought or memory problems: No Fluid in abdomen (ascites): No Prominent leg swelling: No Vomiting blood: No Recent change in weight: No PHYSICAL EXAMINATION There were no vitals taken for this visit. General Appearance: Well appearing, alert, in no acute distress, well-hydrated, well nourished. Eyes: no scleral icterus Abdomen: not distended Extremities: no cyanosis or edema Skin: no jaundice, no spider angiomas, no palmar erythema Neuro:alert, oriented x 3, pleasant and in no acute distress Recent Labs: No results found for: HB , HCT , WBC No results found for: GLUC , K , NA , CHLOR , CO2 , CREAT , BUN , ANION , CA No results found for: ALB , TBILI , CBILI , ALKPHOS , AST , ALT , TPROT Computed MELD 3.0 unavailable. One or more values for this score either were not found within the given timeframe or did not fit some other criterion. Computed MELD-Na unavailable. One or more values for this score either were not found within the given timeframe or did not fit some other criterion. Assessment IMPRESSION Michael Ramon is a 38 year old year old female with PMHx lap rosalia (2008), depression, obesity, who presents with biopsy-proven MASH with advanced hepatic fibrosis. Appears well compensated at this time. Will obtain MELD labs and imaging Q6 months. Discussed hepatic steatosis, liver disease and risk factors, its progression, and ideal weight loss goal of 10% along with adherence to a Mediterranean diet and ETOH cessation. PLAN MASH with bridging fibrosis/possible nodule formation: - biopsy proven - Fibroscan today - MELD labs Q6 months - Mediterranean diet -increased cardiovascular exercise with goal >45 minutes 5 days weekly -avoid liver detox cleanse/supplements -not to exceed 2,000 mg tylenol daily -strict alcohol abstinence recommended -PCP to assist with management/screening for any and all components of metabolic syndrome - advised to continue following with hematology regarding lymphadenopathy EV: - last EGD 03/2023 - repeat EGD in 2/3 yrs if no evidence of varices Ascites: - <2,000mg Na diet HE: - high protein diet HCC screening: - will be undergoing CTAP locally in about 2-3 months via oncology - [facility] US in 6 months Return to office in 6 months. During this patient visit I have spent approximately 30 minutes out of 30 in counseling regarding test results and coordinating care. Anna Colorado APRN.CNP July 16, 2023 6:52 AM documented in this encounter [facility] 07-15-2023 Telephone encounter Note Called Michael Ramon to remind them of an appointment with Anna Colorado on 07/16/23. Left Message for patient. Left VM to check in on the 3rd floor [facility] 07-15-2023 Miscellaneous Notes Called Michael Ramon to remind them of an appointment with Anna Colorado on 07/16/23. Left Message for patient. Left VM to check in on the 3rd floor documented in this encounter [facility] 07-11-2023 Note Patient called nina patino to cancel procedure appointment for today 07/11/23. States she was seen by the cancer specialist and they recommended holding off on injections until they find out what is going on. Patient requested office cancel her procedure and follow up. [Electronically Signed on: 07/11/2023 07:23 EDT] Giuliana Travis RN [Verified on: 07/11/2023 07:23 EDT] Giuliana Travis RN [facility] 07-10-2023 Note [id number] [facility] 07-10-2023 History of Presen t illness Narrative Subjective HPI Michael Ramon is a 38 y.o. female who is referred by Dr. Etienne for splenomegaly and intra-abdominal lymphadenopathy. 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 She was also found to have some splenomegaly. In June 2023, she had left upper quadrant abdominal pain and went to the emergency department where she underwent noncontrasted CT scan. I have personally reviewed this imaging. There is splenomegaly as well as some shotty mesenteric lymphadenopathy as well as some shotty inguinal nodes largest on the right side measuring just over 1 cm but appearing to have a hilum fatty. All of the intra-abdominal lymph nodes are quite small. She has no night sweats, fevers or chills. No weight loss. Abdominal pain has been somewhat persistent and she is now on tramadol for this. She did undergo EGD in March this year. She has had laparoscopic cholecystectomy in 2007. Has not had a colonoscopy. Insurance did not approve PET scan to further workup the findings. Family history of family members with gastric cancer, pancreatic cancer, and colon cancer Review of Systems Constitutional: Negative. HENT: Negative for ear discharge, nosebleeds and sore throat. Eyes: Negative for discharge. Respiratory: Negative for shortness of breath. Cardiovascular: Negative for chest pain. Gastrointestinal: Positive for abdominal pain. Negative for nausea and vomiting. Endocrine: Negative. Genitourinary: Negative for dysuria and flank pain. Musculoskeletal: Negative for gait problem. Skin: Negative for rash. Neurological: Negative for speech difficulty, weakness and headaches. Hematological: Negative for adenopathy. Psychiatric/Behavioral: Negative for behavioral problems, confusion and hallucinations. No past medical history on file. No past surgical history on file. Current Outpatient Medications on File Prior to Visit Medication Sig Dispense Refill buPROPion XL (Wellbutrin XL) 300 mg 24 hr tablet Take 1 tablet (300 mg) by mouth once daily. Do not crush, chew, or split. cetirizine (ZyrTEC) 10 mg tablet Take 1 tablet (10 mg) by mouth once daily as needed for allergies. liraglutide (Victoza) 0.6 mg/0.1 mL (18 mg/3 mL) injection Inject 0.2 mL (1.2 mg) under the skin once daily. loratadine (Claritin) 10 mg tablet Take 1 tablet (10 mg) by mouth once daily as needed for allergies. melatonin 10 mg tablet Take by mouth as needed at bedtime. metFORMIN (Glucophage) 500 mg tablet Take 1 tablet (500 mg) by mouth once daily with breakfast. omeprazole (PriLOSEC) [address] capsule Take 1 capsule (40 mg) by mouth once daily. Do not crush or chew. traMADol (Ultram) 50 mg tablet Take 1 tablet (50 mg) by mouth 2 times a day. No current facility-administered medications on file prior to visit. Allergies Allergen Reactions Iodine Rash Social History Socioeconomic History Marital status: Spouse name: Not on file Number of children: Not on file Years of education: Not on file Highest education level: Not on file Occupational History Not on file Tobacco Use Smoking status: Not on file Smokeless tobacco: Not on file Substance and Sexual Activity Alcohol use: Not on file Drug use: Not on file Sexual activity: Not on file Other Topics Concern Not on file Social History Narrative Not on file Social Determinants of Health Financial Resource Strain: Not on file Food Insecurity: Not on file Transportation Needs: Not on file Physical Activity: Not on file Stress: Not on file Social Connections: Not on file Intimate Partner Violence: Not on file Housing Stability: Not on file No family history on file. Objective BP 137/90 (BP Location: Right arm, Patient Position: Sitting, BP Cuff Size: Large adult long) Pulse 76 Temp 36.3 C (97.3 F) (Temporal) Resp 16 Wt 145 kg (318 lb 9 oz) SpO2 97% Physical Exam Constitutional: Appearance: Normal appearance. HENT: Head: Atraumatic. Nose: Nose normal. Eyes: Extraocular Movements: Extraocular movements intact. Conjunctiva/sclera: Conjunctivae normal. Cardiovascular: Rate and Rhythm: Normal rate. Pulmonary: Effort: Pulmonary effort is normal. Abdominal: Palpations: Abdomen is soft. Tenderness: There is no abdominal tenderness. Musculoskeletal: General: Normal range of motion. Skin: Findings: No rash. Neurological: General: No focal deficit present. Mental Status: She is alert. Psychiatric: Behavior: Behavior normal. Assessment/Plan My suspicion for lymphomatous process right now is not very high. There are no easily biopsy able lymph nodes surgically, and I do not believe that going after one of the inguinal lymph nodes at this time given the size and low clinical suspicion would be worthwhile. Mesenteric lymph nodes are all very small with the most prominent being in the duodenal mesentery which would be nearly impossible to biopsy. Splenomegaly may be related to cirrhosis. I will also check for mononucleosis with blood test today. I would agree with follow-up imaging as recommended by Dr. Etienne. Erickson Ontiveros MD documented in this encounter [facility] Work Phone: 07-04-2023 Note [facility] SURGERY Clinical Discharge Summary PERSON INFORMATION Name MICHAEL RAMON Age 38 Years 1985 Sex FEMALE Language Indonesian PCP Shelley Mc DO Marital Status Med Service Pain Management Surgery Acct# Arrival Visit Reason LOW BACK PAIN Acuity LOS 000 41:46 Address: [address] [place], [place] [id number] Comment: PROVIDER INFORMATION VITALS INFORMATION Vital Sign [...] This Visit (last charted value for your visit) No Laboratory or Other Results This Visit DIET & ACTIVITY Patient Activity Level: Patient Diet: Patient Activity Restrictions: DISCHARGE INFORMATION Discharge Disposition: Discharge Location: DEPART REASON INCOMPLETE INFORMATION PATIENT EDUCATION INFORMATION Instructions: Follow up: Type Location Start [facility] State [facility] 07/11/2023 11:50 AM 07/11/2023 12:00 PM Confirmed Pain Post Procedure ([facility]) PAIN MANAGE 07/17/2023 10:35 AM 07/17/2023 10:45 AM Confirmed DIAGNOSIS Comment: PHYS DOC NOTES [facility] 06-26-2023 Note [id number]#1.00OTGTIFF [facility] 06-25-2023 Note [facility] SURGERY Clinical Discharge Summary PERSON INFORMATION Name MICHAEL RAMON Age 38 Years 1985 Sex FEMALE Language Indonesian PCP Shelley Mc DO Marital Status Med Service Pain Management Surgery Acct# Arrival Visit Reason LOW BACK PAIN Acuity LOS 011 23:38 Address: [address] [place] [id number] Comment: PROVIDER INFORMATION VITALS INFORMATION Vital Sign [...] This Visit (last charted value for your visit) No Laboratory or Other Results This Visit DIET & ACTIVITY Patient Activity Level: Patient Diet: Patient Activity Restrictions: DISCHARGE INFORMATION Discharge Disposition: Discharge Location: DEPART REASON INCOMPLETE INFORMATION PATIENT EDUCATION INFORMATION Instructions: Follow up: Type Location Start Finish State Surgery ([facility]) [facility] Main OR 06/27/2023 11:10 AM 06/27/2023 11:20 AM Confirmed Pain Post Procedure ([facility] PAIN MANAGE 07/03/2023 9:00 AM 07/03/2023 9:10 AM Confirmed DIAGNOSIS Comment: PHYS DOC NOTES [facility] 05-19-2023 Note [id number] Note [facility] SURGERY Clinical Discharge Summary PERSON INFORMATION Name MICHAEL RAMON Age 38 Years 1985 Sex FEMALE Language Indonesian PCP Shelley Mc DO Marital Status Med Service Pain Management Surgery Acct# Arrival 05/16/2023 11:18:32 Visit Reason LOW BACK PAIN Acuity LOS 007 00:21 Address: [address] [place], [place] [id number] Comment: PROVIDER INFORMATION VITALS INFORMATION Vital Sign [...] AM Confirmed DIAGNOSIS Comment: PHYS DOC NOTES [facility] 05-15-2023 Note [id number] The history of present illness has been reviewed. There are no changes document. [Electronically Signed on: 05/16/2023 11:30 EST] SAM HERBERT MD [Verified on: 05/16/2023 11:30 EST] SAM HERBERT MD [Transcribed on: 05/15/2023 12:57 EST] [facility] 04-24-2023 Procedure note [facility] 04-23-2023 Note Patient Education Ma terials Follows: [facility] 04-17-2023 Evaluation note Encounter Date Diagnosis Assessment Notes Apr, Cirrhosis of liver (ICD-10 - K74.60) Apr, Steatohepatitis (ICD-10 - K75.81) [employer] Other 01-29-2024 Note [id number] Medical [id number] [facility] SURGERY Clinical Discharge Summary PERSON INFORMATION Name MICHAEL RAMON Age 37 Years 1985 Sex FEMALE Language Indonesian PCP Shelley Mc DO Marital Status Med Service Pain Management Surgery N [id number] Acct# Arrival 04/04/2023 09:45:39 Visit Reason SACROILIITIS Acuity LOS 009 20:28 Address: [facility] [address] Comment: PROVIDER INFORMATION VITALS INFORMATION Vital Sign [...] subcutaneous solution) 2.5 Milligram Subcutaneous (more contentnot included)...[facility] [id number] Note [id number] The history of present illness has been reviewed. There are no changes document. [Electronically Signed on: 04/04/2023 10:21 EST] SAM HERBERT MD [Verified on: 04/04/2023 10:21 EST] SAM HERBERT MD [Transcribed on: 04/03/2023 12:50 EST] [facility]01-09-2024 Evaluation note* Encounter Date Diagnosis Assessment Notes Treatment Notes Treatment Clinical Notes Mar, GERD (gastroesophagea l reflux disease) (ICD-10 - K21.9) Will send PPI daily, will recheck at upcoming appt in Mar, Irregular periods (ICD-10 - N92.6) Given new onset intermenstrual bleeding and menorrhagia will refer to spanish language lecturer for evaluation. Discussed likely need for pelvic u/s and possible EMB. Pap deferred today due to period. [employer] Other 12-14-2023 Evaluation note* Encounter Date Diagnosis [...] depression in full remission (ICD-10 - F32.5) [employer] Other 12-13-2023 NotePatient Education Materials Follows: [facility] [id number] Evaluation note* Encounter Date Diagnosis Assessment Notes [...] sleepiness, or poor response to treatment. . [employer] Other 11-20-2023 Note [id number]#1.00[facility]11-17-2023 [facility] SURGERY Clinical Discharge Summary PERSON INFORMATION Name MICHAEL RAMON Age 37 Years 1985 Sex FEMALE Language Indonesian PCP Thu Baldwin DO Marital Status Med Service Pain Management Surgery Acct# Arrival 01/24/2023 11:22:25 Visit Reason LUMBAR SPINAL STENOSIS WITH NEURO CLAUDICATION Acuity LOS 002 02:56 Address: [address] [place] [address] [address] [facility] [id number] Comment: PROVIDER INFORMATION VITALS INFORMATION Vital Sign [...] AM Confirmed PT 30 (more content not included)...[facility] [id number] Note [id number] The history of present illness has been reviewed. There are no changes document. [Electronically Signed on: 01/24/2023 07:23 EST] SAM HERBERT MD [Verified on: 01/24/2023 07:23 EST] SAM HERBERT MD [Transcribed on: 01/23/2023 13:43 EST] [facility]11-15-2023 NotePatient Education Materials Follows:[facility] [id number] Evaluation note* Encounter Date Diagnosis Assessment Notes Treatment Notes Treatment Clinical Notes Jan, Hepatic steatosis (ICD-10 - K76.0) [employer] Other 10-05-2023 Evaluation note* Encounter Date Diagnosis Assessment Notes Treatment Notes Treatment Clinical Notes Dec, HAMMOND (nonalcoholic steatohepatitis) (ICD-10 - K75.81) PATIENT TO PROCEED WITH LABS AND FIBRSOCAN. Dec, Hepatic steatosis (ICD-10 - K76.0) Dec, Elevated liver enzymes (ICD-10 - R74.8) [employer] Other 09-27-2023 NotePatient Education Materials Follows: [facility] [id number] NotePatient Education Materials Follows: Hypertension, Adult Your [...] Keep all follow-up visits. Medicines ? Take cpsn-mnv-nsgolrs and prescription medicines only as told by [...] ? High blood pr (more content not included)...[facility] [id number] Evaluation note* Encounter Date Diagnosis Assessment Notes [...] sleepiness, or poor response to treatment. . [employer] Other 08-29-2022 NotePROCEDURE: XR FOOT RT MIN 3 VIEWS COMPARISON: 06/09/2021 HISTORY: Pain FINDINGS: BONES:Interval removal of fixation plate in the first metatarsal-phalangeal joint. No acute fracture or dislocation. SOFT TISSUES:Postsurgical soft tissue swelling and subcutaneous emphysema EFFUSION:None visible. OTHER: Negative. IMPRESSION: Interval removal of first metatarsal-phalangeal joint fusion hardware Electronically authenticated by: WEN MCCABE Date: 2021-11-05 13:57[facility]12-01-2021 Evaluation note* Encounter Date Diagnosis Assessment [...] sleepiness, or poor response to treatment. . [employer] Other 09-29-2021 Evaluation note* Encounter Date Diagnosis [...] changes in symptoms and/or problems with treatment [id number] Other Evaluation noteNo assessment information available [facility] Work Phone: Evaluation noteNo InformationNortEinstein Medical Center-[facility] [employer] Other Evaluation note* Diagnosis Onset Date Resolution Status Elevated liver enzymes acute [facility] Work Phone: Evaluation note* Diagnosis Major depressive disorder with current active episode, unspecified depression episode severity, unspecified whether recurrent (CMS/HCC) [facility] Diagnosis Onset Date Resolution Status Type 2 diabetes mellitus wit h other specified complication acute [facility] Work Phone: Evaluation note* Diagnosis Onset Date Resolution Status Cirrhosis acute Pain in forearm acute Type 2 diabetes mellitus wit h other specified complication acute [facility] Work Phone: Evaluation note* Diagnosis Onset Date Resolution Status Cirrhosis acute Pain in forearm acute Type 2 diabetes mellitus wit h other specified complication acute Acute left flank pain acute Liver cirrhosis secondary to HAMMOND (nonalcoholic steatohepatitis) acute Mesenteric lymphadenopathy a cute [facility] Work Phone: Evaluation note* Diagnosis Mesenteric mass Splenomegaly Cirrhosis of liver (Multi) Cirrhosis of liver without mention of alcohol documented in this encounter [facility] Work Phone: Evaluation note* Diagnosis Other cirrhosis of liver (HCC)- Primary Constipation, unspecified constipation type Family history of colon cancer in mother [facility] Diagnosis Onset Date Resolution Status Cirrhosis acute Pain in forearm acute Type 2 diabetes mellitus wit h other specified complication acute Acute left flank pain acute Liver cirrhosis secondary to HAMMOND (nonalcoholic steatohepatitis) acute Mesenteric lymphadenopathy a cute Splenomegaly chronic Acute left flank pain acute Liver cirrhosis secondary to HAMMOND (nonalcoholic steatohepatitis) acute Mesenteric lymphadenopathy a cute Splenomegaly chronic [facility] Work Phone: Evaluation note* Diagnosis Onset Date Resolution Status Cirrhosis acute Type 2 diabetes mellitus wit h other specified complication acute Liver cirrhosis secondary to HAMMOND (nonalcoholic steatohepatitis) acute Mesenteric lymphadenopathy a cute Liver cirrhosis secondary to HAMMOND (nonalcoholic steatohepatitis) acute Mesenteric lymphadenopathy a cute BMI 50.0-59.9, adult noneact [facility] Work Phone: History and physical note Author Job Martinez [facility] April 24, 2023 2:00pm Note Date/Time April 24, 2023 2:00pm [facility] [address] [place] [address] Gastroenterology H&P Signed Patient: Michael Ramon MR#: [id number] : 1985 Acct:[id number] Age/Sex: 38 / F Adm Date: 4 Loc: Room: Type: [facility] Attending Dr: Job Martinez MD Copies [...] signed by Job Martinez MD> 04/24/23 1400 [facility] Work Phone: History general Narrative - Reported* Type Description Date Medical History depression Medical History anxiety [employer] Other Hisrcyc general Narrative - Reported* Type Description Date Medical History depression Medical History anxiety Medical History severe PRAKASH [employer] Other Hishqzm general Narrative - Reported* Type Description Date Medical History depression Medical History anxiety Medical History severe PRAKASH Medical History diabetes mallitus Medical History sleep apnea Surgical History cholecystectomy 2005 Surgical History RIGHT FOOT-HELIX 2020 Hospitalization History SEE ABOVE [employer] Other Hisatkx general Narrative - Reported* Type Description Date Medical History depression Medical History anxiety Medical History severe PRAKASH Medical History diabetes mallitus Medical History sleep apnea Surgical History cholecystectomy [address] Cheek--RIGHT FOOT-HELIX [address] Cheek--right foot hardw are removed 2022 Hospitalization History see above [employer] Other Hospital Discharge instructions Additional Instructions Follow up with the doctor provided Return to the ED if you develop worsening [facility] Work Phone: Progress note Author Ginette Etienne [facility] July 26, 2023 2:48pm Note Date/Time July 25, 2023 9:53a m [facility] [place] [address] Cancer Center Note Signed Patient: Michael Ramon MR#: [id number] : 1985 Acct:[id number] Age/Sex: 38 / F Type: DEP AMB Date of Service: 07/25/23 Copies to: Shelley Mc, DO~ Assessment & Plan A/P (1) Mesenteric lymphadenopathy: Plan: This is a 38-year-old lady who presented to ER with recent worsening left flank pain. Known history of hepatic cirrhosis without prior ascites, encephalopathy,or other known complications of cirrhosis with recent diagnosis (likely HAMMOND). Laboratory workup was unremarkable but abdominal pelvic CT showed prominent mesenteric and retroperitoneal adenopathy as well as enlarged spleen that seem to correlate to her areas of pain. She does not have any other concerning systemic symptoms (B symptoms) other than expected weight loss for weight reduction medication. We reviewed images and reports of her abdominal pelvic CTon 06/24/2023 with the patient and her family. There were some prominent areas in the left inguinal area that may be accessible to biopsy, however PET/CT wouldbe of increased utility to see if FDG avid areas are most accessible to biopsy. If she does not have any evidence of FDG avidity I would recommend continuing surveillance with imaging only. We addressed her acute left flank pain below which interferes with functioning and sleep. She has not been treated with any regular pain medication due to recent diagnosis of stage IV fibrosis/early cirrhosis, however in the short-term I would give her a 2-week course of tramadol 50 mg twice daily for her symptoms and reassess at the time of for follow-up with me to review PET/CT and possible biopsies. The patient and her family members had multiple questions that were addressed and I would defer any long- term prognostic decisions until her PET/CT and potential biopsy. This is a highcomplexity total 90-minute visit for reviewing prior records and initial historyand physical of this patient. 07/25/2023: No indication for biopsy after evaluation by surgical oncology on 07/10/2023. Plan 3 month surveillance imaging with CT Abdomen/Pelvis. Tramadol is effective for pain and low risk for worsening cirrhosis or GI ulceration. May continue primary care followup for pain managment. Followup with me in 3 months to review exam and 3 month imaging. Moderate complexity 35 minute followup. (2) Splenomegaly: Plan: Palpable splenomegaly on exam, may be associated with known cirrhosis, however evaluation of her adenopathy as noted above. It is unclear whether her left upper quadrant pain is directly related to her splenomegaly and we will assess her findings on PET/CT for further diagnostic evaluation. Currently she has normal CBC and unremarkable liver function tests. (3) Acute left flank pain: Plan: Recent worsening left flank pain for which she is taking no medication due to concern of her recent diagnosis of cirrhosis. Trial of tramadol 50 mg twice daily as needed x 2 weeks (30 tablets sent to [facility] in [place]). Will assess response to pain medication and follow-up in about 2 weeks. --07/25/2023: Tramadol is effective for pain and may continue followup pain management with primary care. (4) Liver cirrhosis secondary to HAMMOND (nonalcoholic steatohepatitis): Plan: Recent evaluation for liver cirrhosis with FibroScan and liver ultrasound and subsequent biopsy, followed by Dr. Martinez of gastroenterology. She does not haveany reported history of ascites, encephalopathy, or significant electrolyte disturbances. Normal INR on recent coagulation tests. Next f/u with GI in mid August 2023. Orders: Orders Comprehensive Metabolic Panel 3 Months R16.1 - Splenomegaly, not elsewhere classified, R59.0 - Localized enlarged lymph nodes CT abdomen pelvis w con 3 Months R16.1 - Splenomegaly, not elsewhere classified,R59.0 - Localized enlarged lymph nodes Complete Blood Count Auto Diff 3 Months R16.1 - Splenomegaly, not elsewhere classified, R59.0 - Localized enlarged lymph nodes Medications: New diphenhydramine HCl (Benadryl Allergy) take 1hr before CT scan 25 mg PO ONCE 1 tab 0RF prednisone take one tab by mouth 13hrs, 7hrs and 1hr before CT scan 3 tabs 0RF Patient Instructions: CT A/P with contrast CBC CMP in 3mths with follow up with DR Etienne. CHEMO PLAN No Active Chemotherapy History of Present Illness HPI 07/25/2023: Michael is here for followup after consultation to surgical oncology Dr. Ontiveros at [facility] on 07/10/2023. After reviewing her exam and imaging, vic see a benefit to lymph node biopsy at this time. He noted that her splenomegaly and abdominal pain is likely due to cirrhosis and he agreed with plan for continued surveillance. She does have improvement of intermittent epigastric pain with Tramadol 50mg bid as needed--ok to continue as needed medication per discretion of Dr. Mc her primary care physician. She will have followup with Dr. Martinez in August. OK for [address] Abdomen Pelvis--sooner if new adenopathy, weight loss, or other signs of progressive splenomegaly. 35 minute moderate complexity followup. 07/04/2023 ORIGINAL CONSULTATION: 38-year-old obese lady with history of elevated liver enzymes that she first noted during hospitalization in 2016 of unclear etiology. She did have a history of binge alcohol use and started drinking at age 15 but recently has stopped drinking any alcohol due to recurrent elevation of liver enzymes. She was referred for outpatient evaluation by Dr. Martinez of GI who noted negative hepatitis testing, autoimmune, or other hereditary or inflammatory causes of cirrhosis. FibroScan and liver biopsy are consistent with stage IV fibrosis andearly cirrhosis. She was advised to continue attempts at weight reduction. Shehas been followed by you for Mounjaro therapy which by your notes has resulted in 6 to 2 pound weight reduction. Recently she has noted increased frequency of left upper quadrant/flank pain without change in stool or urine frequency. No recent infections such as UTI. 2 para 2 with normal menses. No injuries and has chronic low back pain followed by [facility] pain clinic. She denies fever, chills, night sweats or other concerning symptoms for infection. She presented to ER with the symptoms 06/24/2023 with normal CBC, coagulation studies are normal with INR 1, and most recent metabolic panel shows normal LFTs with a low lipase excluding pancreatitis. CT of abdomen and pelvis was ordered showing unremarkable lung bases, organs suboptimal evaluation due to lack of IV contrast, history of cholecystectomy, liver, pancreas, and adrenal glands unremarkable. Splenomegalymeasuring 13.8 cm, multiple prominent lymph nodes in the mesentery and retroperitoneum without free air or free fluid. By my interpretation there alsomay be some prominent lymph nodes in the left greater than right inguinal area. None of these are palpable by exam. She expressed concern that her left- sided pain has not resolved and she is unable to take ogbl-dod-wodhtld medicine because of her liver cirrhosis. She is taking cannabis Gummies which do not improve pain and have a bad taste. We will give her a 2-week trial of tramadol 50 mg twice daily for her pain symptoms and set up PET/CT to see if she has FDG avidity in any areas of adenopathy or splenomegaly. If FDG avid lymph nodes areseen, we will try to coordinate diagnostic biopsy, preferably an accessible area. She has no cough, dyspnea, or palpable adenopathy in the neck or axilla by exam but these areas have not been imaged with CT and will be evaluated with PET/CT. All questions were answered to the patient and sister and boyfriend whoaccompany her over this 60- minute lstk-ta-ielc visit with exam and lab review, and additional 30 minutes to review prior records from primary care and gastroenterology. Summary of Therapies Summary of Therapies: Observation only Intake Vitals/Pain Assessment 07/25/23 09:54 Weight 142.428 kg BP 152/91 H Blood Pressure Location Rt brachial Position Sitting Temp 97.1 F L Temp Source Temporal Pulse 81 Pulse Source NIBP Respiration 16 Pulse Oximetry (%) 98 Oxygen Delivery Method room air Are you having pain? No Intake Visit Reasons: Follow Up, follow up visit Allergies iodine Allergy (Mild, Verified 07/25/23 09:56) Rash - Last Reconciled 07/25/23 by Rae Waters bupropion HCl 300 mg PO QAM liraglutide (Victoza 3-Myles) inject 0.6mg subcutaneously once daily x 7 days; then 1.2mg daily, not to exceed 1.8mg/day subcut loratadine (Claritin) PO magnesium citrate 100 mg PO DAILY melatonin 1 mg PO HS PRN metformin 500 mg PO DAILY omeprazole 40 mg PO DAILY 30 days pen needle, diabetic (Novofine 32) As directed sennosides (Laxative (sennosides)) 25 mg PO DAILY tramadol 50 mg PO BID PRN 2 weeks Gastrointestinal Is the patient taking opioids for pain control?: No Falls Fall Precaution Measures Taken: Patient in chair Nurse's Note: Patient is here today for a 3 week follow up visit for mesenteric lymphadenopathy and splenomegaly [facility] Medical History Medical History Elevated liver enzymes PRAKASH on CPAP Chronic back pain sees pain mamagement Cirrhosis Varicose vein of leg right stripped Surgical History Surgical History Hx of cholecystectomy H/O foot surgery Family History Family History Aunt/Uncle Diabetes Legacy FamHx Relation: Maternal aunt Cirrhosis Aunt/Uncle Diabetes Legacy FamHx Relation: Maternal uncle Grandparent Heart disease Legacy FamHx Relation: Maternal Grand Father Mother Diabetes Family history of colon cancer Cancer Legacy Famx Problem: Diagnosed with Cancer Social History Social History Smoking status: Former smoker What tobacco products do you use: cigarettes Smoking quit date/years: <= 15 years ago Within the past year, how often did you have a drink containing alcohol: never AUDIT-C Alcohol total score: 0 AUDIT-C Alcohol score interpretation: A score less than 3 is consistent with normal alcohol consumption. In the past 12 months, have you used illegal drugs or prescription drugs for non-medical reasons?: Yes Review of Systems No change in review of systems from original consult 07/04/2023: CONSTITUTIONAL: Positive for recent worsening fatigue, negative for fever or night sweats. HEAD AND NECK: Negative for changes in hearing and vision. Negative for mouth ulcers, nasal congestion and nasal drainage. PULMONARY: Negative for chest pain, cough and dyspnea. CARDIOVASCULAR: Negative for claudication and irregular heartbeat/palpitations. No known coronary artery disease. GASTROINTESTINAL: Positive for left upper quadrant flank/abdominal pain. Negative for constipation, decreased appetite, diarrhea, nausea or vomiting. GENITOURINARY: Negative for dysuria and hematuria. ENDOCRINE: Negative for cold intolerance and heat intolerance. Morbidly obese on Mounjaro for weight reduction. CENTRAL NERVOUS SYSTEM: Negative for gait disturbance and headache. No focal neurologic deficits. PSYCHIATRIC: Negative for anxiety or depression. DERMATOLOGICAL: Negative for pruritus and rash. Negative for suspicious skin lesions. MUSCULOSKELETAL: Negative for back pain and bone/joint symptoms. HEMATOLOGICAL: Negative for bleeding and easy bruising. Negative for history of transfusion or thromboembolic disease ALLERGY: Negative for environmental allergies and food allergies. Physical Exam EXAM ECOG performance status 1, pain 0/10 left flank (intermittent up to 5/10, controlled with meds) CONSTITUTIONAL: The patient is in no acute distress. HEAD / FACE: Normocephalic. EYES: Pupils are equal and reactive to light. Conjunctivae and lids are benign in appearance. Ocular movement intact. EARS: Hearing grossly intact. Full exam deferred--see exam below from 07/04/2023 NOSE / MOUTH / THROAT: Nose, mouth, tongue and oropharynx are benign in appearance. No signs of inflammation. NECK / THYROID: Neck is supple. Thyroid is symmetrical, without thyromegaly, masses or palpable nodules. LYMPHATIC: No palpable cervical, supraclavicular, axillary, or inguinal adenopathy (deep palpation for inguinal adenopathy did not consistently reveal palpable lymph nodes). RESPIRATORY: Normal to inspection. Lungs clear to auscultation and percussion. No wheezing, rales, rhonchi or rubs. Normal effort. CARDIOVASCULAR: Regular rate and rhythm. No murmurs, gallops, or rubs. VASCULAR: Carotid, radial, femoral and pedal pulses present bilaterally. No bruits. ABDOMEN: Bowel sounds normoactive. Soft and non-distended. No hepatomegaly. No masses. Positive for palpable spleen tip/percussion on exam to 3 fingerbreadthsbelow left costal margin. This is associated with pain with deep palpation and also the pain along the left posterior rib cage. GENITOURINARY: No CVA tenderness. No suprapubic fullness or tenderness. No groinadenopathy. No evidence of hernias. INTEGUMENTARY: The skin is unremarkable. No rashes. No suspicious lesions BACK / SPINE: The back is nontender. MUSCULOSKELETAL: Normal musculature, no joint deformities or abnormalities, normal range of motion for all four extremities. EXTREMITIES: No edema, cyanosis or clubbing. No Shiv sign. NEUROLOGICAL: Alert and oriented. Cranial nerves intact. No gross motor or sensory deficits. PSYCHIATRIC: No anxiety or evidence of depression. Results - [facility] ([facility] Onc) LAB RESULTS No Data to Display PATHOLOGY RESULTS Pathological Diagnosis Left lobe of liver, random [...] are predominantly lymphoid cells, but also with occasional PMNs at the interface area of [...] chronic fatty liver disease with the associated and/or superimposed active chronic hepatitis pattern - Even though there is no obvious Kaila's degeneration, or active lobular necroinflammatory activity with associated PMNs, in the lobules, the presence of portal chronic inflammation and the evolving fibrosis is compatible with the type II nonalcoholic steatohepatitis (HAMMOND), that can be observed in pediatric NAFLD, and occasionally also in morbid obesity patient (MASLD) - It is not clear if there is any underlying superimposed AIH (including drug- related AIH), or any other type of chronic hepatitis, because of the apparently mildly elevated serum mitochondrial antibody at 21.8 (0?20) therefore requiring continuous clinical correlations, and also the need for secondary consultation at the University laboratory for further delineation, otherwise still also will be reviewed routinely in most of the cases in the liver clinics of note Supplemental Report Supplemental for findings of consultation report from [facility]: -Features of steatohepatitis with bridging fibrosis, cannot rule out focal earlynodule formation Signature Ritchie Spring MD, Pathologist (Signed 03/18/23, 3323) RADIOLOGY/IMAGING RESULTS CT ABDOMEN AND PELVIS WITHOUT INTRAVENOUS CONTRAST: CLINICAL HISTORY: Left upper quadrant pain. COMPARISON: None TECHNIQUE: Spiral images were obtained through the abdomen and pelvis without intravenous contrast. This CT exam was performed using one or more following dose reduction techniques: Automated exposure control, adjustment of the mA and/or kV according to patient size, or use of iterative reconstruction technique. FINDINGS: Lung Bases: No acute findings. Organs:Suboptimal evaluation due to lack of IV contrast. Gallbladder has been removed. Liver pancreas and adrenal glands appear unremarkable. Splenomegaly measuring 13.8 cm. Kidneys demonstrate no stone or hydronephrosis. Abdominal aorta appears normal in caliber. GI: Stomach is grossly unremarkable. Small bowel appears nondilated. No acute colonic abnormality. Appendix is normal. Pelvis: Urinary bladder is grossly unremarkable. Uterus is grossly unremarkable. No adnexal mass. Peritoneum/Retroperitoneum:Multiple prominent lymph nodes are seen involving themesentery and retroperitoneum. No free air or free fluid. Abd wall/Bones:Abdominal wall demonstrates no acute findings. Osseous structures demonstrate degenerative change. CT/CT abdomen pelvis wo con IMPRESSION: Multiple prominent mesenteric and retroperitoneal lymph nodes. Given the splenomegaly, developing lymphoma cannot be excluded. No acute process is seen. Impression dictated by: Alina Diop Jr.OGeri06/24/2023 1:30 PM Dictated By: Ginette Etienne MD DD/ [id number] Signed By: <Electronically signed by MD Ginette Etienne> 07/26/23 1444 [facility] Work Phone: Reason for referral (narrative)* Outpatient Procedure (Routine) - Pending Review Specialty Diagnoses / Procedures Referred By Ela t Referred To Contact [facility] Diagnoses Other cirrhosis of liver (HCC) Constipation, unspecified constipation type Family history of colon cancer in mother Procedures COLONOSCOPY SCREENING COLONOSCOPY FLX DX W/COLLJ SPEC WHEN PFRMD Anna Colorado APRN.CNP [address] [place] [address] [facility] [place] [address] [place], [place] [address] [place] [address] Referral ID Status Reason Start Date Expiration Date Visits Requested Visits Authorized [id number] Pending Review Auto-Generat ed Referral 07/20/2023 07/19/2024 1 1 * Diagnostic Procedure Only (Routine) - Authorized Specialty Diagnoses / Procedures Referred By Ela t Referred To Contact [facility] Diagnoses Other cirrhosis of liver (HCC) Procedures US ABD SPLEEN US ABDOMINAL REAL TIME W/IMAGE LIMITED Anna Colorado APRN.CNP [address] [facility] [id number] Us Imaging [facility] Referral ID Status Reason Start Date Expiration Date Visits Requested Visits Authorized [id number] Authorized Auto-Generat ed Referral 01/16/2024 08/14/2024 1 1 * Diagnostic Procedure Only (Routine) - Authorized Specialty Diagnoses / Procedures Referred By Ela t Referred To Contact [facility] Diagnoses Other cirrhosis of liver (HCC) Procedures US ABD RIGHT UPPER QUADRANT US ABDOMINAL REAL TIME W/IMAGE LIMITED Anna Colorado APRN.CNP [address] [facility] [address] [place] [address] Referral ID Status Reason Start Date Expiration Date Visits Requested Visits Authorized [id number] Authorized Auto-Generat ed Referral 01/16/2024 08/14/2024 1 1 [facility] Chief Complaint and Reason for Visit Chief [...] diabetes nettie itus with other specified complication Chief Complaint Fatty Liver, Cirrhos is, Rule out varices Fatty Liver, Cirrhosis, Rule out varices Amb Documentation k76.0 3 month follow up lower back pain Reason for Visit Cirrhosis Pain in forearm Type 2 diabetes mellitus with other specified complication Chief Complaint Fatty Liver, Cirrhos is, Rule out varices Fatty Liver, Cirrhosis, Rule out varices Amb Documentation k76.0 3 month follow up lower back pain Amb Documentation Amb Documentation Cirrhosis Reason for Visit Cirrhosis Pain in forearm Type 2 diabetes mellitus with other specified complication Chief Complaint Fatty Liver, Cirrhos is, Rule out varices Fatty Liver, Cirrhosis, Rule out varices Amb Documentation k76.0 3 month follow up lower back pain Amb Documentation Amb Documentation Cirrhosis Lymphadenopathy NEW ER 4/16 Lymphadenopathy Reason for Visit Cirrhosis Pain in forearm Type 2 diabetes mellitus with other specified complication Acute left flank pain Liver cirrhosis secondary to HAMMOND (nonalcoholic steatohepatitis) Mesenteric lymphadenopathy Chief Complaint 3 month follow up lower back pain Amb Documentation Amb Documentation Cirrhosis NEW ER 4/16 Lymphadenopathy Lymphadenopathy Follow Up Reason for Visit Cirrhosis Pain in forearm Type 2 diabetes mellitus with other specified complication Acute left flank pain Liver cirrhosis secondary to HAMMOND (nonalcoholic steatohepatitis) Mesenteric lymphadenopathy Splenomegaly Acute left flank pain Liver cirrhosis secondary to HAMMOND (nonalcoholic steatohepatitis) Mesenteric lymphadenopathy Splenomegaly Chief Complaint 3 month follow up lower back pain Amb Documentation Amb Documentation Cirrhosis NEW ER 4/16 Lymphadenopathy Lymphadenopathy Follow Up discuss Victoza/weight Reason for Visit Cirrhosis Type 2 diabetes mellitus with other specified complication Liver cirrhosis secondary to HAMMOND (nonalcoholic steatohepatitis) Mesenteric lymphadenopathy Liver cirrhosis secondary to HAMMOND (nonalcoholic steatohepatitis) Mesenteric lymphadenopathy BMI 50.0-59.9, adult Advance Directives Advance Directive Response Recorded Date/ Time Advance Directives No October 03 7:34am Advance Directive Response Recorded Date/ Time Advance Directives No October 03 8:34am Summary Purpose Family History Relationship Condition Age at Onset Recorded Date/T laci family member Diabetes mellitus Unknown Hepatic cirrhosis Unknown grandparent Heart disease Unknown Not Specified Diabetes mellitus Unknown Family history of colon cancer Unknown Malignant neoplasm Unknown Reason for Referral Reason New onset intermenst rual bleeding and menorrhagia x 2 months Diagnosis 1 Irregular periods (N 92.6) Referral Organization [facility] Julio Caro Referring Provider First Name Shelley Referring Provider Last Name Jesusita Referring Provider Specialty Family [facility] Referred Organization [facility] Referred Address ,[place], [place],[address] Referred Provider Specialty OB - Gynecol ogy Referral Priority Routine Additional Source Comments REASON FOR VISIT (unrecogniz ed section and content) Reason Comments Follow-up Reason Comments New Patient Visit Specialty Diagnoses / Procedures Referred By Conttamela t Referred To Contact Surgical Oncology Diagnoses Mesenteric mass Splenomegaly Cirrhosis of liver (Multi) Ginette Etienne MD [address] [place] [address] [place] [address] [facility] Department of Surgery-[place] [address] Referral ID Status Reason Start Date Expiration Date Visits Requested Visits Authorized [id number] Authorized Specialty Services Required 07/09/2023 07/08/2024 1 1 Reason Comments Appointment Reason Comments New Patient Reason Comments Results Care Teams (unrecognized sec tion and content) [...] Member Role Status Dates Shelley Mc DO Attending Provider Active St art: [...] Other Provider Active Start: April 24, 2023 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 Start Date End Date Thu Baldwin DO [address] [place] [address] [facility] 09/07/22 Shelley Mc DO [address] [place] [id number] PCP - General Family Medicine 04/02/23 Team Status: Active Member Role Status Shelly Mc DO Primary Care Provider Active Start: April 25, 2023 BRENDA Durham Attending Provider Active S tart: April 25, 2023 Team Status: Inactive Member Role Status Shelly Mc DO Primary Care Provider Active Start: May 01, 2023 End: May 01, 2023 Job Martinez MD Attending Provider Active Start: May 01, 2023 End: May 01, 2023 Team Status: Inactive Member Role Status Shelly Mc DO Primary Care Provide r, Attending Provider Active Start: May 23, 2023 End: May 23, 2023 Team Status: Inactive Member Role Status Shelly Mc DO Primary Care Provider Active Start: June 24, 2023 End: June 24, 2023 Chris Cottrell , Emergency Provider Active Sta rt: June 24, 2023 End: June 24, 2023 Team Status: Active Member Role Status Shelly Mc DO Primary Care Provider Active Start: June 25, 2023 BRENDA Durham Attending Provider Active S tart: June 25, 2023 Team Status: Active Member Role Status Shelly Mc DO Primary Care Provider Active Start: June 25, 2023 Thu Higuera LPN Attending Provider Active Sta rt: June 25, 2023 Team Status: Inactive Member Role Status Shelly Mc DO Primary Care Provider Active Start: July 01, 2023 End: July 01, 2023 COLLIN Bradley Attending Provider Active Start: July 01, 2023 End: July 01, 2023 Team Status: Active Member Role Status Shelly Mc DO Primary Care Provider Active Start: July 03, 2023 Ginette Etienne MD Attending Provider Active Start: July 03, 2023 Team Status: Inactive Member Role Status Shelly Mc DO Primary Care Provider Active Start: July 03, 2023 End: July 03, 2023 Ginette Etienne MD Attending Provider Active Start: July 03, 2023 End: July 03, 2023 Chris Cottrell DO Referring Provider Active Sta rt: July 03, 2023 End: July 03, 2023 Team Status: Active Member Role Status Dates Shelley Mc DO Primary Care Provider Active Start: July 09, 2023 Ginette Etienne MD Attending Provider Active Start: July 09, 2023 Team Status: Active Member Role Status Dates Shelley Mc DO Primary Care Provider Active Start: July 25, 2023 Ginette Etienne MD Attending Provider Active Start: July 25, 2023 Team Status: Inactive Member Role Status Dates Shelley Mc DO Primary Care Provider Active Start: July 25, 2023 End: July 25, 2023 Ginette Etienne MD Attending Provider Active Start: July 25, 2023 End: July 25, 2023 Team Status: Inactive Member Role Status Dates Shelley Mc DO Primary Care Provider Active Start: August 13, 2023 End: August 13, 2023 Arvin Dodge APRN Attending Provider Active Start: August 13, 2023 End: August 13, 2023 Goals (unrecognized section and content) Goals may be documented in a n alternate section INFORMATION SOURCE (unrecogn ized section and content) DATE CREATED AUTHOR 04/14/2022 [facility] DATE CREATED AUTHOR AUTHOR'S ORGANIZ ATION 06/17/2023 [facility] DATE CREATED AUTHOR AUTHOR'S ORGANIZ ATION 07/14/2023 [facility] DATE CREATED AUTHOR AUTHOR'S ORGANIZ ATION 07/14/2023 [facility] DATE CREATED AUTHOR AUTHOR'S ORGANIZ ATION 07/17/2023 [facility] DATE CREATED AUTHOR AUTHOR'S ORGANIZ ATION 07/21/[address] [facility] DATE CREATED AUTHOR AUTHOR'S ORGANIZ ATION 07/27/2023 [facility] DATE CREATED AUTHOR AUTHOR'S ORGANIZ ATION 08/07/2023 [facility] EPIC Source Comments (unrecognize d section and content) In the event this informatio n is protected by the Federal Confidentiality of Alcohol and Drug Abuse Patient Records regulations: The Federal rules restrict any use of the information to criminally investigate or prosecute any alcohol or drug abuse patient.[facility] the event this information is protected by the Federal Confidentiality of Alcohol and Drug Abuse Patient Records regulations: The Federal rules restrict any use of the information to criminally investigate or prosecute any alcohol or drug abuse patient.[facility] the event this information is protected by the Federal Confidentiality of Alcohol and Drug Abuse Patient Records regulations: The Federal rules restrict any use of the information to criminally investigate or prosecute any alcohol or drug abuse patient.[facility] the event this information is protected by the Federal Confidentiality of Alcohol and Drug Abuse Patient Records regulations: The Federal rules restrict any use of the information to criminally investigate or prosecute any alcohol or drug abuse patient.[facility] FOR RECORDS PERTAINING TO PATIENTS WHO [...] BE BASED ON THE PRIMARY CLINICAL RECORDS. [facility] [employer] [facility]. provides no warranty or guarantee of the accuracy or completeness of information in this document.
== END 2023-08-14 10:24 | disposition home or self-care (01) ==
LOC: VC 10:23
PROVIDERS: PCP Radiology Diagnostic Radiology; Visit Provider Radiology Diagnostic Radiology
DX: I80.01 Phlebitis and thrombophlebitis of superficial vessels of right lower extremity (principal)
CPT/HCPCS: 93971; G0463